=== PATIENT | female | born 1930 | race Caucasian/White ===

== ENCOUNTER 2018-05-28 00:51 | Inpatient (IN) | payer MEDICARE, MEDICAID ==
[~2018-05-28] VITALS: Ht 162.6 cm; Wt 54.4 kg
[2018-05-28] VITALS (7 sets, daily range): BP systolic 124–210; BP diastolic 62–104
[~2018-05-28 00:51] MED LIST: ADVAIR 100-501 EACH INH; ALBUTEROL2.5 MG/3 M INH; AMIODARONE HCL400 M1 ORAL; CORDARONE200 M1 ORAL; DIOVAN160 MG ORAL; DONEPEZIL HCL5 M2 ORAL; FUROSEMIDE20 M1 ORAL; HYDROCHLOROTHIA25 MG ORAL; LEXAPRO10 MG ORAL; MEDROL4 MG ORAL; MIRTAZAPINE7.5 MG ORAL; NORVASC5 MG ORAL; PANTOPRAZOLE SO40 MG ORAL; POTASSIUM99 M3 PO; PROLIA60 MG/1 ML SUBQ; SINGULAIR10 MG ORAL; SPIRIVA18 MCG INH; TRAMADOL HCL50 MG ORAL; VERAPAMIL HCL80 MG ORAL; vitamin B12 IM
--- NOTE | 2018-05-28 00:55 | Emergency Room Report ---
History of Present Illness General Source: Medical Record, EMS Present Illness HPI Patient presents from nursing facility with shortness of breath patient has multiple comorbidities including CHF Atrial fibrillation and COPD, Patient herself is nonverbal and in acute distress upon arrival this does limit the history of present illness There was no reports of vomiting or diarrhea unknown regarding fevers patient's symptoms apparently worsened acutely And paramedics were summoned Allergies: Coded Allergies: Mushroom (Verified Allergy, Severe, 05/28/18) MORPHINE (Unverified Allergy, Intermediate, Itching, 01/04/15) PENICILLINS (Unverified Allergy, Intermediate, Hives, 01/04/15) CELECOXIB (Verified Allergy, Mild, 01/15/09) Patient History Limited by: medical condition Past Medical History: see triage record Pertinent Family History: unable to obtain Reviewed Nursing Documentation: PMH: Agreed; PSxH: Agreed Nursing Documentation-PMH Hx Hypertension: Yes Hx Asthma: Yes Hx Gastrointestinal Problems: Yes - GERD Review of Systems All Other Systems: limited - Other than the ones mentioned in the history of present illness all others are reviewed however they do stay limited due to the patient's mental status Physical Exam 80% on room air which is low, on BiPAP patient saturating at 95% which is improved and normal Sp02 EP Interpretation: reviewed, abnormal General Appearance: moderate distress - Short of breath and dyspneic Head: normocephalic, atraumatic Eyes: bilateral eye PERRL, bilateral eye EOMI ENT: dry mucus membranes Neck: supple Respiratory: accessory muscle use - And tachypneic crackles bilaterally Cardiovascular #1: tachycardia Gastrointestinal: non tender, soft Musculoskeletal: other - Patient appears weak not following all commands difficult exam Neurologic: responsive - To physical and verbal stimuli otherwise decreased GCS Skin: no rash, other - Some edema bilaterally Lymphatic: no adenopathy Procedures Critical Care Time Critical Care Time 50 minutes for multiple re-evaluations critical presentation with hypoxia concern for respiratory failure not including any procedural time Medical Decision Making Diagnostic Impression: Primary Impression: Respiratory distress Additional Impressions: COPD with acute exacerbation Hypoxia Pleural effusion ER Course patient is a fairly complex patient with multiple differential to consideration including but not limited to cardiac cardiopulmonary and vascular emergencies Patient placed on BiPAP emergently X-ray imaging shows concerning right-sided effusion versus infiltrate also cardiomegaly Patient receiving breathing treatments Also diuretic and antibiotics has started to improve and requires higher level of care admission Labs Test 05/28/18 00:52 05/28/18 01:32 05/28/18 01:40 05/28/18 02:00 Arterial Blood pH 7.318 (7.350-7.450) Arterial Blood Partial Pressure CO2 67.9 mmHg (35.0-45.0) Arterial Blood Partial Pressure O2 49.7 mmHg (75.0-100.0) Arterial Blood HCO3 34.0 mmol/L (22.0-26.0) Arterial Blood Oxygen Saturation 85.7 % (95-100) Arterial Blood Base Excess 6.0 (-2-2) David Test Positive White Blood Count 14.8 K/UL (4.8-10.8) Red Blood Count 5.29 M/UL (4.20-5.40) Hemoglobin 11.3 G/DL (12.0-16.0) Hematocrit 37.7 % (37.0-47.0) Mean Corpuscular Volume 71 FL (80-99) Mean Corpuscular Hemoglobin 21.4 PG (27.0-31.0) Mean Corpuscular Hemoglobin Concent 29.9 G/DL (32.0-36.0) Red Cell Distribution Width 15.2 % (11.6-14.8) Platelet Count 161 K/UL (150-450) Mean Platelet Volume 8.8 FL (6.5-10.1) Neutrophils (%) (Auto) 75.7 % (45.0-75.0) Lymphocytes (%) (Auto) 18.3 % (20.0-45.0) Monocytes (%) (Auto) 4.7 % (1.0-10.0) Eosinophils (%) (Auto) 0.5 % (0.0-3.0) Basophils (%) (Auto) 0.9 % (0.0-2.0) Sodium Level 144 MMOL/L (136-145) Potassium Level 3.6 MMOL/L (3.5-5.1) Chloride Level 107 MMOL/L (98-107) Carbon Dioxide Level 31 MMOL/L (21-32) Anion Gap 6 mmol/L (5-15) Blood Urea Nitrogen 34 mg/dL (7-18) Creatinine 1.4 MG/DL (0.55-1.30) Estimat Glomerular Filtration Rate mL/min (>60) Glucose Level 201 MG/DL (74-106) Lactic Acid Level 1.00 mmol/L (0.4-2.0) Calcium Level 10.7 MG/DL (8.5-10.1) Total Bilirubin 0.4 MG/DL (0.2-1.0) Aspartate Amino Transf (AST/SGOT) 14 U/L (15-37) Alanine Aminotransferase (ALT/SGPT) 14 U/L (12-78) Alkaline Phosphatase 61 U/L (46-116) Total Creatine Kinase 22 U/L (26-308) Creatine Kinase MB 0.5 NG/ML (0.0-3.6) Creatine Kinase MB Relative Index 2.2 Troponin I 0.002 ng/mL (0.000-0.056) Total Protein 6.8 G/DL (6.4-8.2) Albumin 3.2 G/DL (3.4-5.0) Globulin 3.6 g/dL Albumin/Globulin Ratio 0.9 (1.0-2.7) Urine Color Pale yellow Urine Appearance Clear Urine pH 6 (4.5-8.0) Urine Specific [place] 1.020 (1.005-1.035) Urine Protein 3+ (NEGATIVE) Urine Glucose (UA) Negative (NEGATIVE) Urine Ketones Negative (NEGATIVE) Urine Blood 2+ (NEGATIVE) Urine Nitrite Negative (NEGATIVE) Urine Bilirubin Negative (NEGATIVE) Urine Urobilinogen Normal MG/DL (0.0-1.0) Urine Leukocyte Esterase 1+ (NEGATIVE) Urine RBC 2-4 /HPF (0 - 2) Urine WBC 0-2 /HPF (0 - 2) Urine Squamous Epithelial Cells Occasional /LPF Urine Bacteria Few /HPF (NONE) Prothrombin Time 11.7 SEC (9.30-11.50) Prothromb Time International Ratio 1.1 (0.9-1.1) Activated Partial Thromboplast Time 32 SEC (23-33) Test 05/28/18 03:15 Arterial Blood pH 7.346 (7.350-7.450) Arterial Blood Partial Pressure CO2 60.5 mmHg (35.0-45.0) Arterial Blood Partial Pressure O2 83.3 mmHg (75.0-100.0) Arterial Blood HCO3 32.4 mmol/L (22.0-26.0) Arterial Blood Oxygen Saturation 96.0 % (95-100) Arterial Blood Base Excess 5.2 (-2-2) David Test Positive Labs Test 05/28/18 00:52 05/28/18 01:32 05/28/18 01:40 05/28/18 02:00 Arterial Blood pH 7.318 (7.350-7.450) Arterial Blood Partial Pressure CO2 67.9 mmHg (35.0-45.0) Arterial Blood Partial Pressure O2 49.7 mmHg (75.0-100.0) Arterial Blood HCO3 34.0 mmol/L (22.0-26.0) Arterial Blood Oxygen Saturation 85.7 % (95-100) Arterial Blood Base Excess 6.0 (-2-2) David Test Positive White Blood Count 14.8 K/UL (4.8-10.8) Red Blood Count 5.29 M/UL (4.20-5.40) Hemoglobin 11.3 G/DL (12.0-16.0) Hematocrit 37.7 % (37.0-47.0) Mean Corpuscular Volume 71 FL (80-99) Mean Corpuscular Hemoglobin 21.4 PG (27.0-31.0) Mean Corpuscular Hemoglobin Concent 29.9 G/DL (32.0-36.0) Red Cell Distribution Width 15.2 % (11.6-14.8) Platelet Count 161 K/UL (150-450) Mean Platelet Volume 8.8 FL (6.5-10.1) Neutrophils (%) (Auto) 75.7 % (45.0-75.0) Lymphocytes (%) (Auto) 18.3 % (20.0-45.0) Monocytes (%) (Auto) 4.7 % (1.0-10.0) Eosinophils (%) (Auto) 0.5 % (0.0-3.0) Basophils (%) (Auto) 0.9 % (0.0-2.0) Sodium Level 144 MMOL/L (136-145) Potassium Level 3.6 MMOL/L (3.5-5.1) Chloride Level 107 MMOL/L (98-107) Carbon Dioxide Level 31 MMOL/L (21-32) Anion Gap 6 mmol/L (5-15) Blood Urea Nitrogen 34 mg/dL (7-18) Creatinine 1.4 MG/DL (0.55-1.30) Estimat Glomerular Filtration Rate mL/min (>60) Glucose Level 201 MG/DL (74-106) Lactic Acid Level 1.00 mmol/L (0.4-2.0) Calcium Level 10.7 MG/DL (8.5-10.1) Total Bilirubin 0.4 MG/DL (0.2-1.0) Aspartate Amino Transf (AST/SGOT) 14 U/L (15-37) Alanine Aminotransferase (ALT/SGPT) 14 U/L (12-78) Alkaline Phosphatase 61 U/L (46-116) Total Creatine Kinase 22 U/L (26-308) Creatine Kinase MB 0.5 NG/ML (0.0-3.6) Creatine Kinase MB Relative Index 2.2 Troponin I 0.002 ng/mL (0.000-0.056) Total Protein 6.8 G/DL (6.4-8.2) Albumin 3.2 G/DL (3.4-5.0) Globulin 3.6 g/dL Albumin/Globulin Ratio 0.9 (1.0-2.7) Urine Color Pale yellow Urine Appearance Clear Urine pH 6 (4.5-8.0) Urine Specific [place] 1.020 (1.005-1.035) Urine Protein 3+ (NEGATIVE) Urine Glucose (UA) Negative (NEGATIVE) Urine Ketones Negative (NEGATIVE) Urine Blood 2+ (NEGATIVE) Urine Nitrite Negative (NEGATIVE) Urine Bilirubin Negative (NEGATIVE) Urine Urobilinogen Normal MG/DL (0.0-1.0) Urine Leukocyte Esterase 1+ (NEGATIVE) Urine RBC 2-4 /HPF (0 - 2) Urine WBC 0-2 /HPF (0 - 2) Urine Squamous Epithelial Cells Occasional /LPF Urine Bacteria Few /HPF (NONE) Prothrombin Time 11.7 SEC (9.30-11.50) Prothromb Time International Ratio 1.1 (0.9-1.1) Activated Partial Thromboplast Time 32 SEC (23-33) Rhythm Strip Diag. Results EP Interpretation: yes Rate: 110 Rhythm: no PVC's, no ectopy, other - Sinus tach Chest X-Ray Diagnostic Results Chest X-Ray Diagnostic Results : Chest X-Ray Ordered: Yes # of Views/Limited/Complete: 1 View Indication: Shortness of Breath EP Interpretation: Yes Interpretation: no pneumothorax, other - Right-sided effusion, cardiomegaly Impression: Other - Right-sided effusion, congestion Electronically Signed by: Tennille Ames DO Status: improved Disposition: ADMITTED INPATIENT Condition: Critical Tennille Ames DO May 28, 2018 00:55
[2018-05-28] MEDS ORDERED: Vancomycin 1 GM in NS 275 ML IV ONE (01:30)
[2018-05-28] MEDS ORDERED: Albuterol ud Inhalation HHN ONE (01:30)
[2018-05-28] MEDS ORDERED: Aztreonam Inj 2 GM in NS 110 ML IV SCH (01:30)
[2018-05-28] MEDS ORDERED: Ipratropium 0.02% Inh Soln 2.5ml UD HHN ONE (01:30)
--- NOTE | 2018-05-28 01:34 | Diagnostic Imaging Report ---
EXAM: XR Chest, 1 View CLINICAL HISTORY: SOB TECHNIQUE: Frontal view of the chest. COMPARISON: 01/21/2016 FINDINGS: Lungs: Right lower lobe atelectasis or consolidation. Pleural space: Small right pleural effusion. No pneumothorax. Heart: Stable cardiomediastinal silhouette. Mediastinum: See above. Bones/joints: No acute osseous abnormality. IMPRESSION: Small right pleural effusion with adjacent atelectasis or consolidation.
--- NOTE | 2018-05-28 01:46 | NUR ---
ER Nurse Note: Pt BIBA from [facility] c/o shortness of breath; per EMS; pt O2 stat at mid 80%. Pt was put in tripod position, put on BIPAP' stating at mid 90%. Lung sounds wet in all lobes, Rt at pt side for bipap; O2 stat at high 80%-low 90%. Unable to access line with three nurses at attempt. ERMD at pt side; will continue to montior.
[2018-05-28 01:47] LABS: BASOPHILS % (AUTO) 0.9 % (0.0-2.0); EOSINOPHILS % (AUTO) 0.5 % (0.0-3.0); HEMATOCRIT 37.7 % (37.0-47.0); HEMOGLOBIN 11.3 G/DL (12.0-16.0); LYMPHOCYTES % (AUTO) 18.3 % (20.0-45.0); MEAN CORPUSCULAR VOLUME 71 FL (80-99); MONOCYTES % (AUTO) 4.7 % (1.0-10.0); NEUTROPHILS % (AUTO) 75.7 % (45.0-75.0); PLATELET COUNT 161 K/UL (150-450); RED BLOOD COUNT 5.29 M/UL (4.20-5.40); RED CELL DISTRIBUTION WIDTH 15.2 % (11.6-14.8); WHITE BLOOD COUNT 14.8 K/UL (4.8-10.8)
[2018-05-28 01:48] LABS: APPEARANCE,URINE CLEAR; BILIRUBIN, URINE NEGATIVE (NEGATIVE); COLOR,URINE PALE YELLOW; GLUCOSE, URINE (UA) NEGATIVE (NEGATIVE); KETONES,URINE NEGATIVE (NEGATIVE); LEUKOCYTE ESTERASE ,URINE 1+ (NEGATIVE); NITRITE,URINE NEGATIVE (NEGATIVE); PH,URINE 6 (4.5-8.0); PROTEIN,URINE 3+ (NEGATIVE); UROBILINOGEN,URINE NORMAL MG/DL (0.0-1.0)
[2018-05-28 02:00] LABS: ANION GAP 6 mmol/L (5-15); BLOOD UREA NITROGEN 34 mg/dL (7-18); CALCIUM 10.7 MG/DL (8.5-10.1); CARBON DIOXIDE 31 MMOL/L (21-32); CHLORIDE 107 MMOL/L (98-107); CREATININE 1.4 MG/DL (0.55-1.30); POTASSIUM 3.6 MMOL/L (3.5-5.1); SODIUM 144 MMOL/L (136-145)
[2018-05-28 02:14] LABS: ALANINE AMINOTRANSFERASE 14 U/L (12-78); ALBUMIN 3.2 G/DL (3.4-5.0); ALBUMIN/GLOBULIN RATIO 0.9 (1.0-2.7); ALKALINE PHOSPHATASE 61 U/L (46-116); BILIRUBIN,TOTAL 0.4 MG/DL (0.2-1.0); CKMB 0.5 NG/ML (0.0-3.6); CREATINE KINASE 22 U/L (26-308)
[2018-05-28 02:27] LABS: ASPARTATE AMINO TRANSFERASE 14 U/L (15-37)
[2018-05-28 02:33] LABS: INR 1.1 (0.9-1.1)
--- NOTE | 2018-05-28 02:45 | NUR ---
ER Nurse Note: All orders completed per ERMD orders. Rectal temp at 99.8F; ice packs and cooling measures initiated. Pt O2 at 99% on BiPap. Skin redness on sacral area; no skin breakdown; wound documented. IV 22 gauge inserted by Charge Nurse; infusing antibiotics. Will continue to montior.
[2018-05-28] MEDS ORDERED: Aztreonam Inj 1 GM in D5W 55 ML IVPB ONE ×4 (03:00)
--- NOTE | 2018-05-28 04:08 | NUR ---
ER Nurse Note: Report given to MARGY Duenas in [place] to endorse continuity of care. Pt a&ox2 to name, situation; responds to pain. No signs of distress. All safety measures met; all belongings with pt.
--- NOTE | 2018-05-28 04:09 | NUR ---
NURSE NOTES: Received telephone report from MARGY Boo prior to bringing up the pt. Temperature down in ER was 99.8F, no medications given. Reported that cooling measures with ice packs were used. At bedside report temperature was 101.5. Unable to obtain orders from Dr. Mariee at that time, warehouse lead was notified. Received order for rectal tylenol and was given. Upon assessment of the pt she appears to be nonverbal, but occassionally moans to pain and movement. BiPAP settings are 18/8 fi02 100%; ABGs noted and discussed with RT. Skin is clean and dry. Noted sacral redness, photo taken and uploaded to [facility]. Patient was turned. L/R hand IV; asymptomatic. Bed is locked in lowest position, sr x3, bed alarm on, call michaels within reach. No orders at this time but will continue to monitor.
[2018-05-28] MEDS ORDERED: Acetaminophen 650 MG SUPP RECTAL ONE (04:15)
--- NOTE | 2018-05-28 04:22 | NUR ---
NURSE NOTES: Paged Dr. Mariee, awaiting a call back. Will continue to monitor and follow plan of care.
--- NOTE | 2018-05-28 05:30 | NUR ---
NURSE NOTES: Paged Dr. Mariee x2. No admit orders at this time. Will continue to monitor.
--- NOTE | 2018-05-28 06:30 | NUR ---
NURSE NOTES: Paged Dr. Mariee x3 regarding admit orders. Still no call back. Will continue to monitor patient.
--- NOTE | 2018-05-28 07:00 | NUR ---
Recieved Patient on BIPAP 18/8, PS 10, BUR 16, FIO2 100%. Patient currently sleeping. Tolerating bipap well. Will continue to monitor.
--- NOTE | 2018-05-28 07:22 | NUR ---
HAND-OFF: Report given to MARGY Bennett.
--- NOTE | 2018-05-28 07:23 | NUR ---
NURSE NOTES: RECEIVED PATIENT FROM Kyle MCCLELLAND RN. PATIENT IS LYING IN BED, ASLEEP. NONVERBAL. HOOKED TO MANAGER DIVERSITY. ON BIPAP 18/5 AT FIO2 100%. NO SIGNS OF DISTRESS OF THE MOMENT. ON NPO. IVS ON L HAND G24 AND IV R HAND G22, SL. CALL LIGHT WITHIN REACH. BED AT LOWEST POSITION. SIDE RAILS UP. WILL CONTINUE TO MONITOR.
[2018-05-28] MEDS ORDERED: Nitroglycerin Subl 0.4mg tab SL PRN (07:30)
[2018-05-28] MEDS ORDERED: Albuterol/Ipratropium 3ml neb HHN PRN (07:30)
[2018-05-28] MEDS ORDERED: Mylanta II UD 30ml ORAL PRN (07:30)
[2018-05-28] MEDS ORDERED: Miralax 17gm pkt ORAL PRN (07:30)
--- NOTE | 2018-05-28 08:44 | Consultation ---
History of Present Illness General Date patient seen: May 28, 2018 Chief Complaint: Dyspnea/Respdistress Reason for Consultation: PNA Present Illness HPI Ms. Nowak is a 87 yo feamle with PMHx of COPD, HTN, and A.fib sent to the ED from her nuring home for SOB. She is not verbal and so the history is obtained from the notes. She was put On BiPAP and no a facemask for low saturations. She had a fever of 101.5 and a WBC count of 15. CXR show atalectasis vs consolidation in the right side. ID was consulted for PNA PMHx/PSHx COPD HTN A.fib SocHx Live at a nuring home FamHx: Unable to obtain due to not verbal status Allergies: Coded Allergies: Mushroom (Verified Allergy, Severe, 05/28/18) MORPHINE (Unverified Allergy, Intermediate, Itching, 01/04/15) PENICILLINS (Unverified Allergy, Intermediate, Hives, 01/04/15) CELECOXIB (Verified Allergy, Mild, 01/15/09) Medication History Scheduled Amiodarone Hcl* (Cordarone*), 200 MG ORAL DAILY Amlodipine Besylate (Norvasc), 5 MG ORAL DAILY, (Reported) Denosumab (Prolia), 60 MG SUBQ EVERY 6 MONTHS, (Reported) Donepezil Hcl* (Donepezil Hcl*), 5 MG ORAL HS, (Reported) Escitalopram Oxalate* (Lexapro*), 10 MG ORAL DAILY, (Reported) Fluticasone/Salmeterol (Advair 100-50 Diskus), 1 PUFF INH EVERY 12 HOURS, ( Reported) Furosemide* (Lasix*), 40 MG ORAL BID, (Reported) Hydrochlorothiazide* (Hydrochlorothiazide*), 25 MG ORAL DAILY, (Reported) Methylprednisolone* (Medrol*), 4 MG ORAL DAILY Mirtazapine* (Mirtazapine*), 15 MG ORAL BEDTIME, (Reported) Montelukast Sodium* (Singulair*), 10 MG ORAL DAILY, (Reported) Montelukast Sodium* (Singulair*), 10 MG ORAL BEDTIME, (Reported) Pantoprazole* (Pantoprazole*), 40 MG ORAL DAILY, (Reported) Potassium Gluconate (Potassium), 10 MEQ PO BID, (Reported) Tiotropium Slater* (Spiriva*), 1 PUFF INH DAILY, (Reported) Valsartan (Diovan), 160 MG ORAL BID, (Reported) Verapamil Hcl* (Calan*), 240 MG ORAL DAILY, (Reported) [vitamin B12], 1 ML IM ONCE A WEEK, (Reported) Scheduled PRN Albuterol Sulfate* (Albuterol Sulfate Hhn*), 3 ML INH Q6H PRN for Shortness of Breath, (Reported) Tramadol Hcl* (Ultram*), 50 MG ORAL Q6H PRN for For Pain, (Reported) Patient History Healthcare decision maker Resuscitation status Advanced Directive on File Yes Review of Systems ROS Narrative Unable to obtain due to not verbal status Physical Exam Last 24 Hour Vital Signs Date Time Temp Pulse Resp B/P (MAP) Pulse Ox O2 Delivery O2 Flow Rate FiO2 05/28/18 07:21 88 21 97 Facial 100 05/28/18 05:25 85 25 96 Facial 100 05/28/18 04:56 98.8 05/28/18 04:47 Bi-pap 18.0 05/28/18 04:08 101.1 100 32 158/71 97 100 05/28/18 04:00 101.5 107 20 162/79 (106) 98 05/28/18 04:00 107 05/28/18 03:30 105 32 97 Facial 100 05/28/18 03:29 99.8 100 20 158/71 100 Bi-pap 100 05/28/18 01:52 120 32 96 Bi-pap 100 05/28/18 01:35 118 40 88 Bi-pap 100 05/28/18 01:13 129 40 87 Facial 100 05/28/18 01:12 129 40 Bi-pap 100 05/28/18 01:05 125 28 Room Air 05/28/18 01:05 98.1 128 28 210/104 83 Room Air 05/28/18 00:52 98.1 125 28 210/104 83 Room Air Intake and Output 05/27/18 05/28/18 19:00 07:00 Intake Total 985 ml Balance 985 ml Intake Oral 0 ml IV Total 985 ml # Voids 4 Laboratory Tests Test 05/28/18 00:52 05/28/18 01:32 05/28/18 01:40 05/28/18 02:00 Arterial Blood pH 7.318 (7.350-7.450) Arterial Blood Partial Pressure CO2 67.9 mmHg (35.0-45.0) *H Arterial Blood Partial Pressure O2 49.7 mmHg (75.0-100.0) Arterial Blood HCO3 34.0 mmol/L (22.0-26.0) H Arterial Blood Oxygen Saturation 85.7 % (95-100) *L Arterial Blood Base Excess 6.0 (-2-2) H David Test Positive White Blood Count 14.8 K/UL (4.8-10.8) H Red Blood Count 5.29 M/UL (4.20-5.40) Hemoglobin 11.3 G/DL (12.0-16.0) L Hematocrit 37.7 % (37.0-47.0) Mean Corpuscular Volume 71 FL (80-99) L Mean Corpuscular Hemoglobin 21.4 PG (27.0-31.0) L Mean Corpuscular Hemoglobin Concent 29.9 G/DL (32.0-36.0) L Red Cell Distribution Width 15.2 % (11.6-14.8) H Platelet Count 161 K/UL (150-450) Mean Platelet Volume 8.8 FL (6.5-10.1) Neutrophils (%) (Auto) 75.7 % (45.0-75.0) H Lymphocytes (%) (Auto) 18.3 % (20.0-45.0) L Monocytes (%) (Auto) 4.7 % (1.0-10.0) Eosinophils (%) (Auto) 0.5 % (0.0-3.0) Basophils (%) (Auto) 0.9 % (0.0-2.0) Sodium Level 144 MMOL/L (136-145) Potassium Level 3.6 MMOL/L (3.5-5.1) Chloride Level 107 MMOL/L (98-107) Carbon Dioxide Level 31 MMOL/L (21-32) Anion Gap 6 mmol/L (5-15) Blood Urea Nitrogen 34 mg/dL (7-18) H Creatinine 1.4 MG/DL (0.55-1.30) H Estimat Glomerular Filtration Rate mL/min (>60) Glucose Level 201 MG/DL (74-106) H Lactic Acid Level 1.00 mmol/L (0.4-2.0) Calcium Level 10.7 MG/DL (8.5-10.1) H Total Bilirubin 0.4 MG/DL (0.2-1.0) Aspartate Amino Transf (AST/SGOT) 14 U/L (15-37) L Alanine Aminotransferase (ALT/SGPT) 14 U/L (12-78) Alkaline Phosphatase 61 U/L (46-116) Total Creatine Kinase 22 U/L (26-308) L Creatine Kinase MB 0.5 NG/ML (0.0-3.6) Creatine Kinase MB Relative Index 2.2 Troponin I 0.002 ng/mL (0.000-0.056) Total Protein 6.8 G/DL (6.4-8.2) Albumin 3.2 G/DL (3.4-5.0) L Globulin 3.6 g/dL Albumin/Globulin Ratio 0.9 (1.0-2.7) L Urine Color Pale yellow Urine Appearance Clear Urine pH 6 (4.5-8.0) Urine Specific [place] 1.020 (1.005-1.035) Urine Protein 3+ (NEGATIVE) H Urine Glucose (UA) Negative (NEGATIVE) Urine Ketones Negative (NEGATIVE) Urine Blood 2+ (NEGATIVE) H Urine Nitrite Negative (NEGATIVE) Urine Bilirubin Negative (NEGATIVE) Urine Urobilinogen Normal MG/DL (0.0-1.0) Urine Leukocyte Esterase 1+ (NEGATIVE) H Urine RBC 2-4 /HPF (0 - 2) H Urine WBC 0-2 /HPF (0 - 2) Urine Squamous Epithelial Cells Occasional /LPF Urine Bacteria Few /HPF (NONE) Prothrombin Time 11.7 SEC (9.30-11.50) H Prothromb Time International Ratio 1.1 (0.9-1.1) Activated Partial Thromboplast Time 32 SEC (23-33) Test 05/28/18 03:15 Arterial Blood pH 7.346 (7.350-7.450) Arterial Blood Partial Pressure CO2 60.5 mmHg (35.0-45.0) *H Arterial Blood Partial Pressure O2 83.3 mmHg (75.0-100.0) Arterial Blood HCO3 32.4 mmol/L (22.0-26.0) H Arterial Blood Oxygen Saturation 96.0 % (95-100) Arterial Blood Base Excess 5.2 (-2-2) H David Test Positive Microbiology Date/Time Source Procedure Growth Status 05/28/18 02:05 Nasal Nares Influenza Types A,B Antigen (JACY) - Final Complete Height (Feet): 5 Height (Inches): 4.00 Weight (Pounds): 122 Medications Current Medications Medications (Trade) Dose Ordered Sig/Ann Route PRN Reason Start Time Stop Time Status Last Admin Dose Admin Acetaminophen (Tylenol) 650 mg Q4H PRN ORAL fever 05/28/18 07:30 06/27/18 07:29 Al Hydroxide/Mg Hydroxide (Mylanta II) 30 ml Q6H PRN ORAL dyspepsia 05/28/18 07:30 06/27/18 07:29 Albuterol/ Ipratropium (Albuterol/ Ipratropium) 3 ml Q4H PRN HHN Shortness of Breath 05/28/18 07:30 06/02/18 07:29 Amiodarone HCl (Cordarone) 200 mg DAILY ORAL 05/28/18 09:00 06/27/18 08:59 Amlodipine Besylate (Norvasc) 5 mg DAILY ORAL 05/28/18 09:00 06/27/18 08:59 Cefepime HCl 1 gm/ Dextrose 55 ml @ 110 mls/hr Q24H IV 05/28/18 09:00 06/04/18 08:59 Heparin Sodium (Porcine) (Heparin 5000 units/ml) 5,000 units EVERY 12 HOURS SUBQ 05/28/18 09:00 06/27/18 08:59 Nitroglycerin (Ntg) 0.4 mg Q5M PRN SL Prn Chest Pain 05/28/18 07:30 06/27/18 07:29 Ondansetron HCl (Zofran) 4 mg Q6H PRN IVP Nausea & Vomiting 05/28/18 07:30 06/27/18 07:29 Polyethylene Glycol (Miralax) 17 gm DAILYPRN PRN ORAL Constipation 05/28/18 07:30 06/27/18 07:29 Temazepam (Restoril) 15 mg HSPRN PRN ORAL Insomnia 05/28/18 07:30 06/04/18 07:29 Vancomycin HCl (Vanco rx to dose) 1 ea DAILY PRN MISC Per rx protocol 05/28/18 07:30 06/27/18 07:29 Vancomycin HCl 500 mg/Dextrose 110 ml @ 110 mls/hr Q24H IVPB 05/29/18 01:00 06/03/18 00:59 Objective Narrative General Appearance: cachetic, On BiPAP HEENT: normocephalic, atraumatic, DMM, EOMI Neck: Supple, No LAD, NO JVD Respiratory/Chest: crackles/rales, rhonchi - bilaterally, Increase accessory muscle use Cardiovascular/Chest: RRR, S1, S2 Abdomen: Soft, NT, ND, + BS Genitourinary/Rectal: Deferred Extremities: Some edema, Pulse 2+ Skin Exam: Warm, No rashes Neuro: Awake Assessment/Plan Assessment/Plan 87 yo feamle with PMHx of COPD, HTN, and A.fib sent to the ED from her nuring home for SOB. Sepsis - Likely PNA 05/28/18 CXR with atalectasis vs consolidation in the right side. UA (-) Leukocytosis 15 on admit Febrile to 101.5 COPD CAD A. fib PLAN - Continue Cefepime and vancomycin - Get Urine Strep ag, Legionella - Inf Screen - Monitor CBC and Temps Thank you for this consult. We will continue to follow Ms. Nowak during this hospitlization. Clint Harris MD May 28, 2018 08:44
--- NOTE | 2018-05-28 09:09 | Consultation ---
History of Present Illness General Date patient seen: May 28, 2018 Chief Complaint: Dyspnea/Respdistress Reason for Consultation: PNA Present Illness HPI 87 year old with hx of COpd , HTN, Afib, Brought in b/o increasing dyspnea, fever chills, in the last few days. Pt was feeling week as well. Worsening short of breath. Pt was febrile in ER and in respiratory distress and was put on BIPAP and transferred to [facility]. Pt is somnolent now. Not responding to tactile stimuli. Unknown underlying mental status. Allergies: Coded Allergies: Mushroom (Verified Allergy, Severe, 05/28/18) MORPHINE (Unverified Allergy, Intermediate, Itching, 01/04/15) PENICILLINS (Unverified Allergy, Intermediate, Hives, 01/04/15) CELECOXIB (Verified Allergy, Mild, 01/15/09) Medication History Scheduled Amiodarone Hcl* (Cordarone*), 200 MG ORAL DAILY Amlodipine Besylate (Norvasc), 5 MG ORAL DAILY, (Reported) Denosumab (Prolia), 60 MG SUBQ EVERY 6 MONTHS, (Reported) Donepezil Hcl* (Donepezil Hcl*), 5 MG ORAL HS, (Reported) Escitalopram Oxalate* (Lexapro*), 10 MG ORAL DAILY, (Reported) Fluticasone/Salmeterol (Advair 100-50 Diskus), 1 PUFF INH EVERY 12 HOURS, ( Reported) Furosemide* (Lasix*), 40 MG ORAL BID, (Reported) Hydrochlorothiazide* (Hydrochlorothiazide*), 25 MG ORAL DAILY, (Reported) Methylprednisolone* (Medrol*), 4 MG ORAL DAILY Mirtazapine* (Mirtazapine*), 15 MG ORAL BEDTIME, (Reported) Montelukast Sodium* (Singulair*), 10 MG ORAL DAILY, (Reported) Montelukast Sodium* (Singulair*), 10 MG ORAL BEDTIME, (Reported) Pantoprazole* (Pantoprazole*), 40 MG ORAL DAILY, (Reported) Potassium Gluconate (Potassium), 10 MEQ PO BID, (Reported) Tiotropium [place]* (Spiriva*), 1 PUFF INH DAILY, (Reported) Valsartan (Diovan), 160 MG ORAL BID, (Reported) Verapamil Hcl* (Calan*), 240 MG ORAL DAILY, (Reported) [vitamin B12], 1 ML IM ONCE A WEEK, (Reported) Scheduled PRN Albuterol Sulfate* (Albuterol Sulfate Hhn*), 3 ML INH Q6H PRN for Shortness of Breath, (Reported) Tramadol Hcl* (Ultram*), 50 MG ORAL Q6H PRN for For Pain, (Reported) Patient History Healthcare decision maker Resuscitation status Advanced Directive on File Yes Past Medical/Surgical History Past Medical/Surgical History: (1) Afib (2) CAD (coronary artery disease) (3) COPD (chronic obstructive pulmonary disease) Review of Systems All Other Systems: negative except mentioned in HPI Physical Exam General Appearance: cachetic Lines, tubes and drains: peripheral HEENT: normocephalic, atraumatic Neck: non-tender, normal alignment Respiratory/Chest: accessory muscle use, rhonchi - left, rhonchi - right Cardiovascular/Chest: normal peripheral pulses, normal rate Abdomen: normal bowel sounds, non tender Genitourinary/Rectal: normal rectal exam Extremities: normal range of motion, non-tender, normal inspection Last 24 Hour Vital Signs Date Time Temp Pulse Resp B/P (MAP) Pulse Ox O2 Delivery O2 Flow Rate FiO2 05/28/18 08:00 100 05/28/18 08:00 97.9 73 24 135/74 (94) 100 05/28/18 07:21 88 21 97 Facial 100 05/28/18 05:25 85 25 96 Facial 100 05/28/18 04:56 98.8 05/28/18 04:47 Bi-pap 18.0 05/28/18 04:08 101.1 100 32 158/71 97 100 05/28/18 04:00 101.5 107 20 162/79 (106) 98 05/28/18 04:00 107 05/28/18 03:30 105 32 97 Facial 100 05/28/18 03:29 99.8 100 20 158/71 100 Bi-pap 100 05/28/18 01:52 120 32 96 Bi-pap 100 05/28/18 01:35 118 40 88 Bi-pap 100 05/28/18 01:13 129 40 87 Facial 100 05/28/18 01:12 129 40 Bi-pap 100 05/28/18 01:05 125 28 Room Air 05/28/18 01:05 98.1 128 28 210/104 83 Room Air 05/28/18 00:52 98.1 125 28 210/104 83 Room Air Intake and Output 05/27/18 05/28/18 19:00 07:00 Intake Total 985 ml Balance 985 ml Intake Oral 0 ml IV Total 985 ml # Voids 4 Laboratory Tests Test 05/28/18 00:52 05/28/18 01:32 05/28/18 01:40 05/28/18 02:00 Arterial Blood pH 7.318 (7.350-7.450) Arterial Blood Partial Pressure CO2 67.9 mmHg (35.0-45.0) *H Arterial Blood Partial Pressure O2 49.7 mmHg (75.0-100.0) Arterial Blood HCO3 34.0 mmol/L (22.0-26.0) H Arterial Blood Oxygen Saturation 85.7 % (95-100) *L Arterial Blood Base Excess 6.0 (-2-2) H David Test Positive White Blood Count 14.8 K/UL (4.8-10.8) H Red Blood Count 5.29 M/UL (4.20-5.40) Hemoglobin 11.3 G/DL (12.0-16.0) L Hematocrit 37.7 % (37.0-47.0) Mean Corpuscular Volume 71 FL (80-99) L Mean Corpuscular Hemoglobin 21.4 PG (27.0-31.0) L Mean Corpuscular Hemoglobin Concent 29.9 G/DL (32.0-36.0) L Red Cell Distribution Width 15.2 % (11.6-14.8) H Platelet Count 161 K/UL (150-450) Mean Platelet Volume 8.8 FL (6.5-10.1) Neutrophils (%) (Auto) 75.7 % (45.0-75.0) H Lymphocytes (%) (Auto) 18.3 % (20.0-45.0) L Monocytes (%) (Auto) 4.7 % (1.0-10.0) Eosinophils (%) (Auto) 0.5 % (0.0-3.0) Basophils (%) (Auto) 0.9 % (0.0-2.0) Sodium Level 144 MMOL/L (136-145) Potassium Level 3.6 MMOL/L (3.5-5.1) Chloride Level 107 MMOL/L (98-107) Carbon Dioxide Level 31 MMOL/L (21-32) Anion Gap 6 mmol/L (5-15) Blood Urea Nitrogen 34 mg/dL (7-18) H Creatinine 1.4 MG/DL (0.55-1.30) H Estimat Glomerular Filtration Rate mL/min (>60) Glucose Level 201 MG/DL (74-106) H Lactic Acid Level 1.00 mmol/L (0.4-2.0) Calcium Level 10.7 MG/DL (8.5-10.1) H Total Bilirubin 0.4 MG/DL (0.2-1.0) Aspartate Amino Transf (AST/SGOT) 14 U/L (15-37) L Alanine Aminotransferase (ALT/SGPT) 14 U/L (12-78) Alkaline Phosphatase 61 U/L (46-116) Total Creatine Kinase 22 U/L (26-308) L Creatine Kinase MB 0.5 NG/ML (0.0-3.6) Creatine Kinase MB Relative Index 2.2 Troponin I 0.002 ng/mL (0.000-0.056) Total Protein 6.8 G/DL (6.4-8.2) Albumin 3.2 G/DL (3.4-5.0) L Globulin 3.6 g/dL Albumin/Globulin Ratio 0.9 (1.0-2.7) L Urine Color Pale yellow Urine Appearance Clear Urine pH 6 (4.5-8.0) Urine Specific [place] 1.020 (1.005-1.035) Urine Protein 3+ (NEGATIVE) H Urine Glucose (UA) Negative (NEGATIVE) Urine Ketones Negative (NEGATIVE) Urine Blood 2+ (NEGATIVE) H Urine Nitrite Negative (NEGATIVE) Urine Bilirubin Negative (NEGATIVE) Urine Urobilinogen Normal MG/DL (0.0-1.0) Urine Leukocyte Esterase 1+ (NEGATIVE) H Urine RBC 2-4 /HPF (0 - 2) H Urine WBC 0-2 /HPF (0 - 2) Urine Squamous Epithelial Cells Occasional /LPF Urine Bacteria Few /HPF (NONE) Prothrombin Time 11.7 SEC (9.30-11.50) H Prothromb Time International Ratio 1.1 (0.9-1.1) Activated Partial Thromboplast Time 32 SEC (23-33) Test 05/28/18 03:15 Arterial Blood pH 7.346 (7.350-7.450) Arterial Blood Partial Pressure CO2 60.5 mmHg (35.0-45.0) *H Arterial Blood Partial Pressure O2 83.3 mmHg (75.0-100.0) Arterial Blood HCO3 32.4 mmol/L (22.0-26.0) H Arterial Blood Oxygen Saturation 96.0 % (95-100) Arterial Blood Base Excess 5.2 (-2-2) H David Test Positive Microbiology Date/Time Source Procedure Growth Status 05/28/18 02:05 Nasal Nares Influenza Types A,B Antigen (JACY) - Final Complete Height (Feet): 5 Height (Inches): 4.00 Weight (Pounds): 122 Medications Current Medications Medications (Trade) Dose Ordered Sig/Ann Route PRN Reason Start Time Stop Time Status Last Admin Dose Admin Acetaminophen (Tylenol) 650 mg Q4H PRN ORAL fever 05/28/18 07:30 06/27/18 07:29 Al Hydroxide/Mg Hydroxide (Mylanta II) 30 ml Q6H PRN ORAL dyspepsia 05/28/18 07:30 06/27/18 07:29 Albuterol/ Ipratropium (Albuterol/ Ipratropium) 3 ml Q4H PRN HHN Shortness of Breath 05/28/18 07:30 06/02/18 07:29 Amiodarone HCl (Cordarone) 200 mg DAILY ORAL 05/28/18 09:00 06/27/18 08:59 Amlodipine Besylate (Norvasc) 5 mg DAILY ORAL 05/28/18 09:00 06/27/18 08:59 Cefepime HCl 1 gm/ Dextrose 55 ml @ 110 mls/hr Q24H IV 05/28/18 09:00 06/04/18 08:59 Heparin Sodium (Porcine) (Heparin 5000 units/ml) 5,000 units EVERY 12 HOURS SUBQ 05/28/18 09:00 06/27/18 08:59 Nitroglycerin (Ntg) 0.4 mg Q5M PRN SL Prn Chest Pain 05/28/18 07:30 06/27/18 07:29 Ondansetron HCl (Zofran) 4 mg Q6H PRN IVP Nausea & Vomiting 05/28/18 07:30 06/27/18 07:29 Polyethylene Glycol (Miralax) 17 gm DAILYPRN PRN ORAL Constipation 05/28/18 07:30 06/27/18 07:29 Temazepam (Restoril) 15 mg HSPRN PRN ORAL Insomnia 05/28/18 07:30 06/04/18 07:29 Vancomycin HCl (Vanco rx to dose) 1 ea DAILY PRN MISC Per rx protocol 05/28/18 07:30 06/27/18 07:29 Vancomycin HCl 500 mg/Dextrose 110 ml @ 110 mls/hr Q24H IVPB 05/29/18 01:00 06/03/18 00:59 Assessment/Plan Problem List: (1) Acute respiratory failure ICD Codes: J96.00 - Acute respiratory failure, unspecified whether with hypoxia or hypercapnia SNOMED: 77993685 (2) Aspiration pneumonia ICD Codes: J69.0 - Pneumonitis due to inhalation of food and vomit SNOMED: 307706662 (3) Acute encephalopathy ICD Codes: G93.40 - Encephalopathy, unspecified SNOMED: 9379952 (4) CAD (coronary artery disease) ICD Codes: I25.10 - Atherosclerotic heart disease of [place] coronary artery without angina pectoris SNOMED: 17341448 (5) Afib ICD Codes: I48.91 - Unspecified atrial fibrillation SNOMED: 74696198 (6) COPD (chronic obstructive pulmonary disease) ICD Codes: J44.9 - Chronic obstructive pulmonary disease, unspecified SNOMED: 47799189 Assessment/Plan continue BIPAP titrate fio2 to sat of 92% iv abx NPO check electrolytes monitor heart rate dvt prophylaxis. Yuliet Mariee MD May 28, 2018 09:08
[2018-05-28] MEDS: Amiodarone 200mg tab ORAL SCH ×3 (09:26→13:30)
[2018-05-28] MEDS: Cefepime HCl 1 GM in D5W 55 ML IV SCH (09:26)
[2018-05-28] MEDS: Heparin 5000 units/ml inj SUBQ SCH ×2 (09:29→22:19)
--- NOTE | 2018-05-28 12:03 | NUR ---
CASE MANAGEMENT: REVIEW / BIBA FROM [facility] CC: DYSPNEA . RESP DISTRESS SI: A-FIB . CAD . COPD T 99.8 HR 129 RR 40 BP 210/104 SAT 87% BIPAP FIO2 100 WBC 14.8 TROPONIN I 0.002 ABG: PH 7.318 PCO2 67.9 PO2 49.7 HCO3 34.0 O2 SAT 85.7 IS: LASIX IV X1 VANCO IV X1 FLAGYL IV X1 ATROVENT HHN X1 AZACTAM IV X1 TYLENOL RECTAL X1 INTERQUAL CRITERIA MET: PATIENT ADMITTED TO STEP DOWN UNIT 05/28/2018 DCP: PATIENT IS FROM [facility]
[2018-05-28] MEDS ORDERED: Sodium Chloride 550 ML IV SCH (15:15)
--- NOTE | 2018-05-28 19:26 | NUR ---
HAND-OFF: Report given to Kyle Kahn RN.
--- NOTE | 2018-05-28 19:28 | NUR ---
NURSE NOTES: Bedside report received from MARGY Bennett. Pt is more awake today. Uzbek speaking, able to understand simple commands now. Vital signs stable. Pt was downgraded to Venturi at 45%. Skin is clean and dry, dressings intact. SPR mattress for sacral redness. Patient was turned. L/R hand IV; asymptomatic. Bed is locked in lowest position, sr x3, bed alarm on, call michaels within reach. Order for urinalysis, will carry out. Will continue to monitor and follow plan of care.
--- NOTE | 2018-05-28 23:30 | History and Physical Report ---
DATE OF ADMISSION: 05/28/2018 CHIEF COMPLAINT: Respiratory distress and altered mental status. HISTORY OF PRESENT ILLNESS: This is a very pleasant, unfortunate 87-year-old female with history of COPD, coronary artery disease, history of AFib, hypertension, and arthritis with early dementia, who resides at [facility]. The patient was found to have respiratory distress and hypoxia and 82% saturation on room air. She was transferred via 911 to the emergency room where she was evaluated, was found to have a right lower lobe consolidation, infiltrate, and COPD exacerbation. The patient was started on broad-spectrum IV antibiotics, pancultured, and placed on BiPAP. Her CO2 was elevated and the patient is admitted to the telemetry floor for further care. PAST MEDICAL HISTORY: History of chronic hypercapnic respiratory failure, history of COPD, coronary artery disease, atrial fibrillation, history of osteoarthritis, and history of early dementia. PAST SURGICAL HISTORY: None reported. ALLERGIES: To Celebrex, morphine, mushrooms, and penicillin. MEDICATIONS: Home medications reconciled and reviewed. SOCIAL HISTORY: The patient is . She has some multiple children who live in the [place] area. No smoking, drugs, or alcohol use currently. FAMILY HISTORY: Noncontributory. REVIEW OF SYSTEMS: The patient is complaining of pleuritic chest pain and shortness of breath. Denies any nausea or vomiting. The patient did feel weak and feverish last night. No diarrhea, constipation, melena, hematochezia, hematuria, dysuria, urgency, or frequency. Denies any other rashes or itching. No joint pain or swelling. No weight changes, heat or cold intolerance. PHYSICAL EXAMINATION: VITAL SIGNS: Blood pressure is 124/80, pulse 63, respiratory rate 18, and temperature 97.7. Saturating 100% on BiPAP. GENERAL: This is a well-nourished and well-developed female looking her stated age. Appears in moderate respiratory distress. HEENT: Normocephalic and atraumatic. Extraocular muscles are intact. Pupils are equal, round, and reactive to light. Anicteric sclerae. Oropharynx is dry. NECK: Supple. CHEST: Decreased breath sounds at bases. Otherwise, no rales or rhonchi. CARDIOVASCULAR: Normal S1 and S2. No murmurs, rubs, or gallops. ABDOMEN: Bowel sounds are positive. Belly is soft, nontender, and nondistended. No hepatosplenomegaly appreciated. EXTREMITIES: No clubbing, cyanosis, or edema. NEUROLOGIC: The patient is awake, alert, and oriented x2. Moves all extremities. Cranial nerves II through XII grossly intact. No sensory or motor deficit appreciated. Gait was not evaluated. SKIN: Clear without rashes or petechiae. LABORATORY DATA: On admission, urinalysis - pale, yellow, clear; pH was 6, specific gravity 1.020. Urine protein is 3+. Glucose is negative. Ketones are negative. 2+ blood in the urine. 1+ leukocyte esterase. CBC shows a white count of 14.8, hemoglobin 11.3, hematocrit 37.7, and platelet count 161,000 with elevated polymorphonucleocytes. INR is 1.1. ProTime is 11.7, PTT 32. ABG, latest blood gas - pH is 7.318, which is low; pCO2 67.9; pO2 is 49.7. O2 saturation is 85.7%. Chemistry panel shows sodium 144, potassium 3.6, chloride 107, carbon dioxide 31, anion gap 6, BUN elevated at 34, and creatinine 1.4. Glucose is 201. Lactic acid was 1. Calcium is elevated at 10.7. Total bilirubin is 0.4, AST 14, ALT 14, and alkaline phosphatase 61. Troponin is 0.002, normal. Total protein 6.8, albumin is low at 3.2. EKG shows no acute changes. Chest x-ray done in the ER shows small right pleural effusion with adjacent atelectasis or consolidation. IMPRESSION: This is an 87-year-old female admitted with chronic obstructive pulmonary disease exacerbation, right lower lobe infiltrate/pneumonia with altered mental status and acute kidney injury. The patient will be admitted to [facility] with the following medical problems. 1. Chronic obstructive pulmonary disease exacerbation and pneumonia. The patient has been seen by Pulmonary. Infectious Disease has been consulted, pancultured. IV antibiotics per ID. Continue with BiPAP and suction p.r.n. Transition to Venturi-mask when stable. 2. Acute kidney injury. We will monitor I's and O's, gentle intravenous fluids. Repeat a BMP in a.m. Consider Nephrology consult. 3. History of chronic atrial fibrillation. Continue with amiodarone. The patient is in sinus rhythm at this time. 4. History of hypertension. Continue with amlodipine and hold for systolic blood pressure less than 110. 5. Altered mental status, most likely from above conditions. We will keep n.p.o. except for medications and start IV fluids. 6. DVT prophylaxis with heparin subcutaneous and SCDs. 7. The patient is Full Code per policy. We will discuss with the family. Cruz Valderrama M.D. DR: LE JOB#: [id number] CC: PAMELA
[2018-05-29] VITALS: BP 150/62
[2018-05-29] MEDS: Vancomycin 500mg/D5W 110ml IVPB SCH ×2 (02:01)
[2018-05-29 04:00] VITALS: BP 147/62
[2018-05-29 04:46] LABS: BASOPHILS % (AUTO) 0.6 % (0.0-2.0); EOSINOPHILS % (AUTO) 1.1 % (0.0-3.0); HEMATOCRIT 35.8 % (37.0-47.0); HEMOGLOBIN 10.8 G/DL (12.0-16.0); LYMPHOCYTES % (AUTO) 14.2 % (20.0-45.0); MEAN CORPUSCULAR VOLUME 72 FL (80-99); NEUTROPHILS % (AUTO) 78.2 % (45.0-75.0); PLATELET COUNT 166 K/UL (150-450); RED CELL DISTRIBUTION WIDTH 15.6 % (11.6-14.8); WHITE BLOOD COUNT 12.1 K/UL (4.8-10.8)
[2018-05-29 04:54] LABS: ALBUMIN 2.8 G/DL (3.4-5.0); ANION GAP 8 mmol/L (5-15); BLOOD UREA NITROGEN 38 mg/dL (7-18); CALCIUM 10.2 MG/DL (8.5-10.1); CARBON DIOXIDE 31 MMOL/L (21-32); CHLORIDE 109 MMOL/L (98-107); CREATININE 1.4 MG/DL (0.55-1.30); PHOSPHORUS 4.5 MG/DL (2.5-4.9); POTASSIUM 3.8 MMOL/L (3.5-5.1); SODIUM 148 MMOL/L (136-145)
--- NOTE | 2018-05-29 07:11 | NUR ---
HAND-OFF: Report given to MARGY Bennett. VSS, no s/s of distress.
--- NOTE | 2018-05-29 07:12 | NUR ---
NURSE NOTES: RECEIVED PATIENT FROM Kyle MCCLELLAND RN. PATIENT IS CONFUSED, TRYING TO GET OUT OF THE BED. HOOKED TO SAFETY AND SECURITY OFFICER. ON VENTURI AT 45%. NO SIGNS OF DISTRESS OF THE MOMENT. IVS ON L HAND G24 AND IV R HAND G22, IVF RUNNING NS AT 50CC/HR. CALL LIGHT WITHIN REACH. BED AT LOWEST POSITION. SIDE RAILS UP. WILL CONTINUE TO MONITOR.
[2018-05-29 08:00] VITALS: BP 148/76
[2018-05-29] MEDS: Cefepime HCl 1 GM in D5W 55 ML IV SCH (09:58)
[2018-05-29] MEDS: Heparin 5000 units/ml inj SUBQ SCH ×2 (10:02→20:23)
--- NOTE | 2018-05-29 11:25 | Cardiology Report ---
APPROVED REPORT EXAM: Two-dimensional and M-mode echocardiogram with Doppler and color Doppler. INDICATION Blood pressure M-Mode DIMENSIONS IVSd1.8 (0.7-1.1cm)Left Atrium (MM)4.9 (1.6-4.0cm) LVDd2.9 (3.5-5.6cm)Aortic Root3.0 (2.0-3.7cm) PWd1.4 (0.7-1.1cm)Aortic Cusp Exc.1.2 (1.5-2.0cm) LVDs1.3 (2.5-4.0cm) PWs2.4 cm Normal left ventricular chamber size, systolic function and wall motion. Left ventricular ejection fraction estimated to be 60 %. Mild left ventricular hypertrophy. Anterior Echo-free space, may be due to pericardial fat or effusion. Mild left atrial enlargement. Right cardiac chamber sizes are within normal limits. Mild focal aortic valve sclerosis with adequate cusp excursion. Moderately thickened mitral valve leaflets with reduced excursion. Echogenic material noted on posterior mitral valve leaflet. Moderate mitral annulus and aortic root calcification. Pulmonic valve not visualized. Normal tricuspid valve structure. IVC dilated at 2.3 cm without physiological collapse, suggestive of increased RA pressure. A color flow and spectral Doppler study was performed and revealed: Trace aortic insufficiency. Mild mitral regurgitation. Mitral P1/2 time of 81 m/s is compatible with a mitral valve area of 1.7 cm2. Peak mitral valve diastolic gradient of 6 mmHg and a mean gradient of 3 mmHg. Mitral diastolic velocities suggest mild left ventricular diastolic dysfunction (Grade I). Mild tricuspid regurgitation. Tricuspid systolic velocities suggests peak right ventricular systolic pressure of 44 mmHg, consistent with mild pulmonary hypertension.
[2018-05-29 12:00] VITALS: BP 134/92
--- NOTE | 2018-05-29 12:27 | Pulmonology Progress Note ---
Assessment/Plan Problems: (1) Acute respiratory failure (2) Aspiration pneumonia (3) Acute encephalopathy (4) CAD (coronary artery disease) (5) Afib (6) COPD (chronic obstructive pulmonary disease) Assessment/Plan improving off bipap check sputum chest PT fever is lower continue abx titrate fio2 to sat of 92% dvt prophylaxis. Subjective ROS Limited/Unobtainable: Yes Interval Events: off bipap Allergies: Coded Allergies: Mushroom (Verified Allergy, Severe, 05/28/18) MORPHINE (Unverified Allergy, Intermediate, Itching, 01/04/15) PENICILLINS (Unverified Allergy, Intermediate, Hives, 01/04/15) CELECOXIB (Verified Allergy, Mild, 01/15/09) Objective Last 24 Hour Vital Signs Date Time Temp Pulse Resp B/P (MAP) Pulse Ox O2 Delivery O2 Flow Rate FiO2 05/29/18 09:58 91 148/76 05/29/18 08:00 98 05/29/18 08:00 97.9 91 20 148/76 (100) 100 05/29/18 08:00 Venturi Mask 05/29/18 07:10 97.7 05/29/18 04:00 98.8 98 20 147/62 (90) 98 05/29/18 04:00 Venturi Mask 05/29/18 04:00 103 05/29/18 04:00 45 05/29/18 00:00 Venturi Mask 05/29/18 00:00 98.2 99 18 150/62 (91) 97 05/29/18 00:00 107 05/28/18 20:00 98.1 91 18 136/62 (86) 98 05/28/18 20:00 Bi-pap 05/28/18 20:00 87 05/28/18 20:00 45 05/28/18 16:00 Bi-pap 05/28/18 16:00 98.1 83 20 124/71 (88) 99 05/28/18 16:00 83 05/28/18 16:00 45 05/28/18 14:07 74 142/71 Intake and Output 05/28/18 05/29/18 18:59 06:59 Intake Total 410 ml 710 ml Output Total 400 ml Balance 410 ml 310 ml Intake Oral 250 ml IV Total 160 ml 710 ml Output Urine Total 400 ml # Voids 1 General Appearance: cachetic HEENT: normocephalic, atraumatic Respiratory/Chest: chest wall non-tender, crackles/rales Cardiovascular: normal peripheral pulses, regular rhythm Abdomen: normal bowel sounds, soft, non tender Genitourinary: normal external genitalia Extremities: no clubbing Skin: no rash Neurologic/Psychiatric: clip riveter II-XII grossly normal Microbiology Date/Time Source Procedure Growth Status 05/28/18 02:10 Blood Blood Culture - Preliminary Resulted 05/28/18 02:00 Blood Blood Culture - Preliminary Resulted 05/28/18 09:00 Nasal Nares Influenza Types A,B Antigen (JACY) - Final Complete 05/28/18 09:00 Sputum Gram Stain - Final Resulted 05/28/18 09:00 Sputum Sputum Culture Pending Resulted 05/28/18 02:05 Nasal Nares Influenza Types A,B Antigen (JACY) - Final Complete 05/28/18 04:17 Rectum Received Laboratory Tests 05/28/18 19:55: Troponin I 0.016 05/28/18 21:00: Urine Legionella Antigen [Pending] 05/29/18 01:35: Troponin I 0.011 05/29/18 04:00: White Blood Count 12.1H, Red Blood Count 5.00, Hemoglobin 10.8L, Hematocrit 35.8L, Mean Corpuscular Volume 72L, Mean Corpuscular Hemoglobin 21.7L, Mean Corpuscular Hemoglobin Concent 30.3L, Red Cell Distribution Width 15.6H, Platelet Count 166, Mean Platelet Volume 8.9, Neutrophils (%) (Auto) 78.2H, Lymphocytes (%) (Auto) 14.2L, Monocytes (%) (Auto) 6.0, Eosinophils (%) (Auto) 1.1, Basophils (%) (Auto) 0.6, Sodium Level 148H, Potassium Level 3.8, Chloride Level 109H, Carbon Dioxide Level 31, Anion Gap 8, Blood Urea Nitrogen 38H, Creatinine 1.4H, Estimat Glomerular Filtration Rate , Glucose Level 108H, Calcium Level 10.2H, Phosphorus Level 4.5, Albumin 2.8L Current Medications Medications (Trade) Dose Ordered Sig/Ann Route PRN Reason Start Time Stop Time Status Last Admin Dose Admin Acetaminophen (Tylenol) 650 mg Q4H PRN ORAL fever 05/28/18 07:30 06/27/18 07:29 05/29/18 06:40 Al Hydroxide/Mg Hydroxide (Mylanta II) 30 ml Q6H PRN ORAL dyspepsia 05/28/18 07:30 06/27/18 07:29 Albuterol/ Ipratropium (Albuterol/ Ipratropium) 3 ml Q4H PRN HHN Shortness of Breath 05/28/18 07:30 06/02/18 07:29 Amiodarone HCl (Cordarone) 200 mg DAILY ORAL 05/28/18 09:00 06/27/18 08:59 05/28/18 13:30 Amlodipine Besylate (Norvasc) 2.5 mg DAILY ORAL 05/28/18 14:00 06/27/18 08:59 05/29/18 09:58 Cefepime HCl 1 gm/ Dextrose 55 ml @ 110 mls/hr Q24H IV 05/28/18 09:00 06/04/18 08:59 05/29/18 09:58 Heparin Sodium (Porcine) (Heparin 5000 units/ml) 5,000 units EVERY 12 HOURS SUBQ 05/28/18 09:00 06/27/18 08:59 05/29/18 10:02 Nitroglycerin (Ntg) 0.4 mg Q5M PRN SL Prn Chest Pain 05/28/18 07:30 06/27/18 07:29 Ondansetron HCl (Zofran) 4 mg Q6H PRN IVP Nausea & Vomiting 05/28/18 07:30 06/27/18 07:29 Polyethylene Glycol (Miralax) 17 gm DAILYPRN PRN ORAL Constipation 05/28/18 07:30 06/27/18 07:29 Sodium Chloride 1,000 ml @ 50 mls/hr Q20H IV 05/28/18 16:45 06/27/18 16:44 05/28/18 17:11 Temazepam (Restoril) 15 mg HSPRN PRN ORAL Insomnia 05/28/18 07:30 06/04/18 07:29 Vancomycin HCl (Vanco rx to dose) 1 ea DAILY PRN MISC Per rx protocol 05/28/18 07:30 06/27/18 07:29 Vancomycin HCl 500 mg/Dextrose 110 ml @ 110 mls/hr Q24H IVPB 05/29/18 01:00 06/03/18 00:59 05/29/18 02:01 Yuliet Mariee MD May 29, 2018 12:26
[2018-05-29 16:00] VITALS: BP 125/70
[2018-05-29] MEDS ORDERED: Tubing IV Secondary IV ONE (17:26)
--- NOTE | 2018-05-29 18:15 | NUR ---
NURSE NOTES: PATIENT KEPT CLEAN AND DRY. PATIENT IS CONFUSED AND PULLING OFF OBJECTS. WILL CONTINUE TO MONITOR.
--- NOTE | 2018-05-29 19:14 | NUR ---
HAND-OFF: Report given to Kyle Kahn RN.
--- NOTE | 2018-05-29 19:15 | NUR ---
NURSE NOTES: Bedside report received from MARGY Bennett. Pt is French speaking, according to Dr. Martinez confused, trying to get out of bed. Vital signs stable. Pt was downgraded to NC 2L; sating at 100%. Skin is clean and dry, dressings intact. SPR mattress for sacral redness. Patient was turned. L/R hand IV; asymptomatic running NS @ 50. Bed is locked in lowest position, sr x3, bed alarm on, call michaels within reach. Will continue to monitor and follow plan of care.
[2018-05-29 20:00] VITALS: BP 147/67
--- NOTE | 2018-05-29 20:41 | General Progress Note ---
Assessment/Plan Status: progressing Assessment/Plan This is an 87-year-old female admitted with chronic obstructive pulmonary disease exacerbation, right lower lobe infiltrate/pneumonia with altered mental status and acute kidney injury. The patient will be admitted to [facility] with the following medical problems. 1. Chronic obstructive pulmonary disease exacerbation and pneumonia. The patient has been seen by Pulmonary. Infectious Disease has been consulted, pancultured. IV antibiotics per ID. Continue with BiPAP and suction p.r.n. Transition to Venturi-mask when stable. 2. Acute kidney injury. We will monitor I's and O's, gentle intravenous fluids. Repeat a BMP in a.m. Consider Nephrology consult. 3. History of chronic atrial fibrillation. Continue with amiodarone. The patient is in sinus rhythm at this time. 4. History of hypertension. Continue with amlodipine and hold for systolic blood pressure less than 110. 5. Altered mental status, most likely from above conditions. We will keep n.p.o. except for medications and start IV fluids. 6. DVT prophylaxis with heparin subcutaneous and SCDs. 7. The patient is Full Code per policy. We will discuss with the family. Plan: -continue present care - freedom splint to keep patient from attempting to move out of bed - am labs and chest xray - fu cultures and antibiotics per ID - pulmonary toiltet and HHN prn discussed with nurse Subjective Date patient seen: May 29, 2018 Respiratory: Reports: cough Allergies: Coded Allergies: Mushroom (Verified Allergy, Severe, 05/28/18) MORPHINE (Unverified Allergy, Intermediate, Itching, 01/04/15) PENICILLINS (Unverified Allergy, Intermediate, Hives, 01/04/15) CELECOXIB (Verified Allergy, Mild, 01/15/09) All Systems: reviewed and negative except above Objective Last 24 Hour Vital Signs Date Time Temp Pulse Resp B/P (MAP) Pulse Ox O2 Delivery O2 Flow Rate FiO2 05/29/18 16:00 107 05/29/18 16:00 98.2 96 22 125/70 (88) 96 05/29/18 16:00 Nasal Cannula 2.0 05/29/18 12:00 98.7 97 24 134/92 (106) 98 05/29/18 12:00 Nasal Cannula 2.0 05/29/18 12:00 87 05/29/18 09:58 91 148/76 05/29/18 08:00 98 05/29/18 08:00 97.9 91 20 148/76 (100) 100 05/29/18 08:00 Venturi Mask 05/29/18 07:10 97.7 05/29/18 04:00 98.8 98 20 147/62 (90) 98 05/29/18 04:00 Venturi Mask 05/29/18 04:00 103 05/29/18 04:00 45 05/29/18 00:00 Venturi Mask 05/29/18 00:00 98.2 99 18 150/62 (91) 97 05/29/18 00:00 107 Intake and Output 05/28/18 05/29/18 19:00 07:00 Intake Total 460 ml 710 ml Output Total 400 ml Balance 460 ml 310 ml Intake Oral 250 ml IV Total 210 ml 710 ml Output Urine Total 400 ml # Voids 1 Laboratory Tests 05/28/18 21:00: Urine Legionella Antigen [Pending] 05/29/18 01:35: Troponin I 0.011 05/29/18 04:00: White Blood Count 12.1H, Red Blood Count 5.00, Hemoglobin 10.8L, Hematocrit 35.8L, Mean Corpuscular Volume 72L, Mean Corpuscular Hemoglobin 21.7L, Mean Corpuscular Hemoglobin Concent 30.3L, Red Cell Distribution Width 15.6H, Platelet Count 166, Mean Platelet Volume 8.9, Neutrophils (%) (Auto) 78.2H, Lymphocytes (%) (Auto) 14.2L, Monocytes (%) (Auto) 6.0, Eosinophils (%) (Auto) 1.1, Basophils (%) (Auto) 0.6, Sodium Level 148H, Potassium Level 3.8, Chloride Level 109H, Carbon Dioxide Level 31, Anion Gap 8, Blood Urea Nitrogen 38H, Creatinine 1.4H, Estimat Glomerular Filtration Rate , Glucose Level 108H, Calcium Level 10.2H, Phosphorus Level 4.5, Albumin 2.8L Height (Feet): 5 Height (Inches): 4.00 Weight (Pounds): 122 General Appearance: no apparent distress, alert EENT: PERRL/EOMI, pharynx normal Cardiovascular: normal rate, regular rhythm, no gallop/murmur, no JVD Respiratory/Chest: crackles/rales Abdomen: non tender, soft, no mass Extremities: non-tender, normal inspection, no calf tenderness Edema: no edema noted Arm (L), no edema noted Arm (R), no edema noted Leg (L), no edema noted Leg (R), no edema noted Pedal (L), no edema noted Pedal (R), no edema noted Generalized Neurologic: alert, responsive, disoriented Skin: warm/dry Lymphatic: normal anterior cervical (L), normal anterior cervical (R), normal posterior cervical (L), normal posterior cervical (R), normal submandibular (L) , normal submandibular (R), normal supraclavicular (L), normal supraclavicular ( R), normal axillary (L), normal axillary (R), normal inguinal (L), normal inguinal (R), normal other Cruz Valderrama MD May 29, 2018 20:41
[2018-05-30] VITALS: BP 146/73
[2018-05-30] MEDS: Vancomycin 500mg/D5W 110ml IVPB SCH ×2 (00:45)
[2018-05-30 04:00] VITALS: BP 160/72
[2018-05-30 06:01] LABS: HEMOGLOBIN 10.9 G/DL (12.0-16.0); MEAN CORPUSCULAR VOLUME 72 FL (80-99); PLATELET COUNT 197 K/UL (150-450); RED BLOOD COUNT 5.12 M/UL (4.20-5.40); RED CELL DISTRIBUTION WIDTH 16.1 % (11.6-14.8); WHITE BLOOD COUNT 8.2 K/UL (4.8-10.8)
[2018-05-30 06:21] LABS: ALANINE AMINOTRANSFERASE 11 U/L (12-78); ALBUMIN 2.8 G/DL (3.4-5.0); ALBUMIN/GLOBULIN RATIO 0.7 (1.0-2.7); ALKALINE PHOSPHATASE 68 U/L (46-116); ANION GAP 7 mmol/L (5-15); ASPARTATE AMINO TRANSFERASE 12 U/L (15-37); BILIRUBIN,TOTAL 0.3 MG/DL (0.2-1.0); BLOOD UREA NITROGEN 37 mg/dL (7-18); CALCIUM 10.3 MG/DL (8.5-10.1); CARBON DIOXIDE 32 MMOL/L (21-32); CHLORIDE 113 MMOL/L (98-107); CREATININE 1.1 MG/DL (0.55-1.30); SODIUM 152 MMOL/L (136-145)
--- NOTE | 2018-05-30 07:08 | NUR ---
HAND-OFF: Report given to MARGY Bennett.
--- NOTE | 2018-05-30 07:09 | NUR ---
NURSE NOTES: Received patient from MARG[facility] Duenas. Patient in bed and asleep. On 4L via NC 02 sat at 91%. launch check out in placed. On SPR matress. Purewick in placed. IV sites on left and right hand are asymptomatic and TKO at 20 cc/hour. No fever. Bed in lowest position with side rails up. Will continue to follow plan of care.
[2018-05-30 08:00] VITALS: BP 147/65
[2018-05-30] MEDS: Cefepime HCl 1 GM in D5W 55 ML IV SCH (08:44)
[2018-05-30] MEDS: Amiodarone 200mg tab ORAL SCH (08:44)
[2018-05-30] MEDS: Heparin 5000 units/ml inj SUBQ SCH ×2 (08:46→20:06)
--- NOTE | 2018-05-30 09:20 | Infectious Diseases Prog Note ---
Assessment/Plan Assessment/Plan 87 yo feamle with PMHx of COPD, HTN, and A.fib sent to the ED from her nuring home for SOB. Sepsis - Likely PNA 05/28/18 CXR with atalectasis vs consolidation in the right side. UA (-) Sputum Cx 05/28/18 - Staph a. and NF ( Sen pend) (Inf Neg) Positive blood Cx - Likely contaminant\ BCx 05/28/18 - CoNS Will repeat Leukocytosis 15 on admit - now resolved Febrile to 101.5 - now resolved COPD CAD A. fib PLAN - Continue Cefepime #3 and vancomycin #3 - f/u Urine Strep ag, Legionella - Monitor CBC and Temps We will continue to follow Ms. Nowak during this hospitalization. Subjective Allergies: Coded Allergies: Mushroom (Verified Allergy, Severe, 05/28/18) MORPHINE (Unverified Allergy, Intermediate, Itching, 01/04/15) PENICILLINS (Unverified Allergy, Intermediate, Hives, 01/04/15) CELECOXIB (Verified Allergy, Mild, 01/15/09) Subjective Patient now off BiPAP Afebrile Leukocytosis resolved Objective Vital Signs Last 24 Hour Vital Signs Date Time Temp Pulse Resp B/P (MAP) Pulse Ox O2 Delivery O2 Flow Rate FiO2 05/30/18 08:45 107 147/65 05/30/18 08:00 98.8 107 22 147/65 (92) 96 05/30/18 04:00 Nasal Cannula 2.0 05/30/18 04:00 101 05/30/18 04:00 98.7 101 22 160/72 (101) 98 05/30/18 00:00 Nasal Cannula 2.0 05/30/18 00:00 98.8 94 24 146/73 (97) 98 05/30/18 00:00 101 05/29/18 20:00 96 05/29/18 20:00 98.4 94 22 147/67 (93) 98 05/29/18 20:00 Nasal Cannula 2.0 05/29/18 16:00 107 05/29/18 16:00 98.2 96 22 125/70 (88) 96 05/29/18 16:00 Nasal Cannula 2.0 05/29/18 12:00 98.7 97 24 134/92 (106) 98 05/29/18 12:00 Nasal Cannula 2.0 05/29/18 12:00 87 05/29/18 09:58 91 148/76 Height (Feet): 5 Height (Inches): 4.00 Weight (Pounds): 122 Objective General:: cachetic, On 2L NC, Awake HEENT: normocephalic, atraumatic, DMM, EOMI Respiratory/Chest: Mild crakles B/L Cardiovascular/Chest: RRR, S1, S2 Abdomen: Soft, NT, ND, + BS Microbiology Date/Time Source Procedure Growth Status 05/28/18 02:10 Blood Blood Culture - Preliminary Staphylococcus Sp Coag Neg Resulted 05/28/18 02:00 Blood Blood Culture - Preliminary Staphylococcus Sp Coag Neg Resulted 05/28/18 09:00 Nasal Nares Influenza Types A,B Antigen (JACY) - Final Complete 05/28/18 09:00 Sputum Gram Stain - Final Resulted 05/28/18 09:00 Sputum Culture - Preliminary Staphylococcus Aureus Usual Respiratory Kierra Resulted 05/28/18 04:17 Nasal Nares MRSA Culture - Final Staphylococcus Aureus - Mrsa Complete 05/28/18 02:05 Nasal Nares Influenza Types A,B Antigen (JACY) - Final Complete 05/28/18 04:17 Rectum - Final NO CARBAPENEM-RESISTANT ENTEROBACTERI... Complete 05/28/18 04:17 Rectum VRE Culture - Final NO VANCOMYCIN RESISTANT ENTEROCOCCUS ... Complete Laboratory Tests Test 05/30/18 05:50 White Blood Count 8.2 K/UL (4.8-10.8) Red Blood Count 5.12 M/UL (4.20-5.40) Hemoglobin 10.9 G/DL (12.0-16.0) L Hematocrit 37.0 % (37.0-47.0) Mean Corpuscular Volume 72 FL (80-99) L Mean Corpuscular Hemoglobin 21.2 PG (27.0-31.0) L Mean Corpuscular Hemoglobin Concent 29.3 G/DL (32.0-36.0) L Red Cell Distribution Width 16.1 % (11.6-14.8) H Platelet Count 197 K/UL (150-450) Mean Platelet Volume 7.8 FL (6.5-10.1) Neutrophils (%) (Auto) % (45.0-75.0) Lymphocytes (%) (Auto) % (20.0-45.0) Monocytes (%) (Auto) % (1.0-10.0) Eosinophils (%) (Auto) % (0.0-3.0) Basophils (%) (Auto) % (0.0-2.0) Sodium Level 152 MMOL/L (136-145) H Potassium Level 4.0 MMOL/L (3.5-5.1) Chloride Level 113 MMOL/L (98-107) H Carbon Dioxide Level 32 MMOL/L (21-32) Anion Gap 7 mmol/L (5-15) Blood Urea Nitrogen 37 mg/dL (7-18) H Creatinine 1.1 MG/DL (0.55-1.30) Estimat Glomerular Filtration Rate mL/min (>60) Glucose Level 117 MG/DL (74-106) H Calcium Level 10.3 MG/DL (8.5-10.1) H Total Bilirubin 0.3 MG/DL (0.2-1.0) Aspartate Amino Transf (AST/SGOT) 12 U/L (15-37) L Alanine Aminotransferase (ALT/SGPT) 11 U/L (12-78) L Alkaline Phosphatase 68 U/L (46-116) Pro-B-Type Natriuretic Peptide 2558 pg/mL (0-125) H Total Protein 7.1 G/DL (6.4-8.2) Albumin 2.8 G/DL (3.4-5.0) L Globulin 4.3 g/dL Albumin/Globulin Ratio 0.7 (1.0-2.7) L Current Medications Medications (Trade) Dose Ordered Sig/Ann Route PRN Reason Start Time Stop Time Status Last Admin Dose Admin Acetaminophen (Tylenol) 650 mg Q4H PRN ORAL fever 05/28/18 07:30 06/27/18 07:29 05/29/18 06:40 Al Hydroxide/Mg Hydroxide (Mylanta II) 30 ml Q6H PRN ORAL dyspepsia 05/28/18 07:30 06/27/18 07:29 Albuterol/ Ipratropium (Albuterol/ Ipratropium) 3 ml Q4H PRN HHN Shortness of Breath 05/28/18 07:30 06/02/18 07:29 Amiodarone HCl (Cordarone) 200 mg DAILY ORAL 05/28/18 09:00 06/27/18 08:59 05/30/18 08:44 Amlodipine Besylate (Norvasc) 2.5 mg DAILY ORAL 05/28/18 14:00 06/27/18 08:59 05/30/18 08:45 Cefepime HCl 1 gm/ Dextrose 55 ml @ 110 mls/hr Q24H IV 05/28/18 09:00 06/04/18 08:59 05/30/18 08:44 Heparin Sodium (Porcine) (Heparin 5000 units/ml) 5,000 units EVERY 12 HOURS SUBQ 05/28/18 09:00 06/27/18 08:59 05/30/18 08:46 Nitroglycerin (Ntg) 0.4 mg Q5M PRN SL Prn Chest Pain 05/28/18 07:30 06/27/18 07:29 Ondansetron HCl (Zofran) 4 mg Q6H PRN IVP Nausea & Vomiting 05/28/18 07:30 06/27/18 07:29 Polyethylene Glycol (Miralax) 17 gm DAILYPRN PRN ORAL Constipation 05/28/18 07:30 06/27/18 07:29 Temazepam (Restoril) 15 mg HSPRN PRN ORAL Insomnia 05/28/18 07:30 06/04/18 07:29 Vancomycin HCl (Vanco rx to dose) 1 ea DAILY PRN MISC Per rx protocol 05/28/18 07:30 06/27/18 07:29 Vancomycin HCl 500 mg/Dextrose 110 ml @ 110 mls/hr Q24H IVPB 05/29/18 01:00 06/03/18 00:59 05/30/18 00:45 Clint Harris MD May 30, 2018 09:20
--- NOTE | 2018-05-30 09:23 | General Progress Note ---
Assessment/Plan Status: progressing Assessment/Plan This is an 87-year-old female admitted with chronic obstructive pulmonary disease exacerbation, right lower lobe infiltrate/pneumonia with altered mental status and acute kidney injury. The patient will be admitted to [facility] with the following medical problems. 1. Chronic obstructive pulmonary disease exacerbation and pneumonia. The patient has been seen by Pulmonary. Infectious Disease has been consulted, pancultured. IV antibiotics per ID. Continue with BiPAP and suction p.r.n. Transition to Venturi-mask when stable. 2. Acute kidney injury. We will monitor I's and O's, gentle intravenous fluids. Repeat a BMP in a.m. Consider Nephrology consult. 3. History of chronic atrial fibrillation. Continue with amiodarone. The patient is in sinus rhythm at this time. 4. History of hypertension. Continue with amlodipine and hold for systolic blood pressure less than 110. 5. Altered mental status, most likely from above conditions. We will keep n.p.o. except for medications and start IV fluids. 6. DVT prophylaxis with heparin subcutaneous and SCDs. 7. The patient is Full Code per policy. We will discuss with the family. Plan: -continue present care - freedom splint to keep patient from attempting to move out of bed - fu chest xray - fu cultures and antibiotics per ID - pulmonary toiltet and HHN prn - possible video swallow study if more responsive today discussed with nurse Subjective Date patient seen: May 30, 2018 ROS Limited/Unobtainable: Yes Neurologic/Psychiatric: Reports: other Allergies: Coded Allergies: Mushroom (Verified Allergy, Severe, 05/28/18) MORPHINE (Unverified Allergy, Intermediate, Itching, 01/04/15) PENICILLINS (Unverified Allergy, Intermediate, Hives, 01/04/15) CELECOXIB (Verified Allergy, Mild, 01/15/09) All Systems: reviewed and negative except above Objective Last 24 Hour Vital Signs Date Time Temp Pulse Resp B/P (MAP) Pulse Ox O2 Delivery O2 Flow Rate FiO2 05/30/18 08:45 107 147/65 05/30/18 08:00 98.8 107 22 147/65 (92) 96 05/30/18 04:00 Nasal Cannula 2.0 05/30/18 04:00 101 05/30/18 04:00 98.7 101 22 160/72 (101) 98 05/30/18 00:00 Nasal Cannula 2.0 05/30/18 00:00 98.8 94 24 146/73 (97) 98 05/30/18 00:00 101 05/29/18 20:00 96 05/29/18 20:00 98.4 94 22 147/67 (93) 98 05/29/18 20:00 Nasal Cannula 2.0 05/29/18 16:00 107 05/29/18 16:00 98.2 96 22 125/70 (88) 96 05/29/18 16:00 Nasal Cannula 2.0 05/29/18 12:00 98.7 97 24 134/92 (106) 98 05/29/18 12:00 Nasal Cannula 2.0 05/29/18 12:00 87 05/29/18 09:58 91 148/76 Intake and Output 05/29/18 05/30/18 19:00 07:00 Intake Total 910.0 ml 60 ml Output Total 300 ml 700 ml Balance 610.0 ml -640 ml Intake Oral 200 ml 60 ml IV Total 710.0 ml Output Urine Total 300 ml 700 ml Laboratory Tests 05/30/18 05:50: White Blood Count 8.2, Red Blood Count 5.12, Hemoglobin 10.9L, Hematocrit 37.0, Mean Corpuscular Volume 72L, Mean Corpuscular Hemoglobin 21.2L, Mean Corpuscular Hemoglobin Concent 29.3L, Red Cell Distribution Width 16.1H, Platelet Count 197, Mean Platelet Volume 7.8, Neutrophils (%) (Auto) , Lymphocytes (%) (Auto) , Monocytes (%) (Auto) , Eosinophils (%) (Auto) , Basophils (%) (Auto) , Sodium Level 152H, Potassium Level 4.0, Chloride Level 113H, Carbon Dioxide Level 32, Anion Gap 7, Blood Urea Nitrogen 37H, Creatinine 1.1, Estimat Glomerular Filtration Rate , Glucose Level 117H, Calcium Level 10.3H, Total Bilirubin 0.3, Aspartate Amino Transf (AST/SGOT) 12L, Alanine Aminotransferase (ALT/SGPT) 11L, Alkaline Phosphatase 68, Pro-B-Type Natriuretic Peptide 2558H, Total Protein 7.1, Albumin 2.8L, Globulin 4.3, Albumin/Globulin Ratio 0.7L Height (Feet): 5 Height (Inches): 4.00 Weight (Pounds): 122 General Appearance: no apparent distress, alert EENT: PERRL/EOMI, pharynx normal Cardiovascular: normal rate, regular rhythm, no gallop/murmur, no JVD Respiratory/Chest: crackles/rales, expiratory wheezing Abdomen: non tender, soft, no mass Extremities: non-tender, normal inspection, no calf tenderness Edema: no edema noted Arm (L), no edema noted Arm (R), no edema noted Leg (L), no edema noted Leg (R), no edema noted Pedal (L), no edema noted Pedal (R), no edema noted Generalized Neurologic: alert, responsive, disoriented Skin: warm/dry Lymphatic: normal anterior cervical (L), normal anterior cervical (R), normal posterior cervical (L), normal posterior cervical (R), normal submandibular (L) , normal submandibular (R), normal supraclavicular (L), normal supraclavicular ( R), normal axillary (L), normal axillary (R), normal inguinal (L), normal inguinal (R), normal other Cruz Valderrama MD May 30, 2018 09:23
--- NOTE | 2018-05-30 09:54 | NUR ---
RADIOLOGY DEPT CHEST X-RAY DONE.-P.DYE
--- NOTE | 2018-05-30 09:58 | NUR ---
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 98.8 HR 107 RR 22 B/P 147/65 2L NC NA 152 BUN 37 BNP 2558 IS: IVF D5@50ML/HR VANCO IV CEFEPIME IV STEP DOWN STATUS
--- NOTE | 2018-05-30 10:09 | Consultation ---
History of Present Illness General Chief Complaint: Dyspnea/Respdistress Reason for Consultation: PNA Present Illness HPI 87-year-old female with history of COPD, coronary artery disease, history of AFib, hypertension, and dementia, who was brought in for sob. the pt is confused has waxing and waning of consciousness. unable to participate and answer questions. the pt has memory impairment,. Allergies: Coded Allergies: Mushroom (Verified Allergy, Severe, 05/28/18) MORPHINE (Unverified Allergy, Intermediate, Itching, 01/04/15) PENICILLINS (Unverified Allergy, Intermediate, Hives, 01/04/15) CELECOXIB (Verified Allergy, Mild, 01/15/09) Medication History Scheduled Amiodarone Hcl* (Cordarone*), 200 MG ORAL DAILY Amlodipine Besylate (Norvasc), 5 MG ORAL DAILY, (Reported) Denosumab (Prolia), 60 MG SUBQ EVERY 6 MONTHS, (Reported) Donepezil Hcl* (Donepezil Hcl*), 5 MG ORAL HS, (Reported) Escitalopram Oxalate* (Lexapro*), 10 MG ORAL DAILY, (Reported) Fluticasone/Salmeterol (Advair 100-50 Diskus), 1 PUFF INH EVERY 12 HOURS, ( Reported) Furosemide* (Lasix*), 40 MG ORAL BID, (Reported) Hydrochlorothiazide* (Hydrochlorothiazide*), 25 MG ORAL DAILY, (Reported) Methylprednisolone* (Medrol*), 4 MG ORAL DAILY Mirtazapine* (Mirtazapine*), 15 MG ORAL BEDTIME, (Reported) Montelukast Sodium* (Singulair*), 10 MG ORAL DAILY, (Reported) Montelukast Sodium* (Singulair*), 10 MG ORAL BEDTIME, (Reported) Pantoprazole* (Pantoprazole*), 40 MG ORAL DAILY, (Reported) Potassium Gluconate (Potassium), 10 MEQ PO BID, (Reported) Tiotropium [place]* (Spiriva*), 1 PUFF INH DAILY, (Reported) Valsartan (Diovan), 160 MG ORAL BID, (Reported) Verapamil Hcl* (Calan*), 240 MG ORAL DAILY, (Reported) [vitamin B12], 1 ML IM ONCE A WEEK, (Reported) Scheduled PRN Albuterol Sulfate* (Albuterol Sulfate Hhn*), 3 ML INH Q6H PRN for Shortness of Breath, (Reported) Tramadol Hcl* (Ultram*), 50 MG ORAL Q6H PRN for For Pain, (Reported) Patient History Limited by: medical condition History Provided By: Patient, Medical Record, PMD Healthcare decision maker Resuscitation status Advanced Directive on File Yes Past Medical/Surgical History Past Medical/Surgical History: (1) Acute respiratory failure (2) Confused (3) COPD (chronic obstructive pulmonary disease) (4) CAD (coronary artery disease) (5) Aspiration pneumonia (6) Afib (7) Acute encephalopathy (8) Pleural effusion (9) COPD with acute exacerbation Review of Systems Psychiatric: Reports: anxiety, emotional problems ROS Narrative the pt is agitated and attempting to come out of bed Physical Exam General Appearance: alert, lethargic, confused, agitated Last 24 Hour Vital Signs Date Time Temp Pulse Resp B/P (MAP) Pulse Ox O2 Delivery O2 Flow Rate FiO2 05/30/18 08:45 107 147/65 05/30/18 08:00 Nasal Cannula 4.0 05/30/18 08:00 98.8 107 22 147/65 (92) 96 05/30/18 04:00 Nasal Cannula 2.0 05/30/18 04:00 101 05/30/18 04:00 98.7 101 22 160/72 (101) 98 05/30/18 00:00 Nasal Cannula 2.0 05/30/18 00:00 98.8 94 24 146/73 (97) 98 05/30/18 00:00 101 05/29/18 20:00 96 05/29/18 20:00 98.4 94 22 147/67 (93) 98 05/29/18 20:00 Nasal Cannula 2.0 05/29/18 16:00 107 05/29/18 16:00 98.2 96 22 125/70 (88) 96 05/29/18 16:00 Nasal Cannula 2.0 05/29/18 12:00 98.7 97 24 134/92 (106) 98 05/29/18 12:00 Nasal Cannula 2.0 05/29/18 12:00 87 Intake and Output 05/29/18 05/30/18 19:00 07:00 Intake Total 910.0 ml 60 ml Output Total 300 ml 700 ml Balance 610.0 ml -640 ml Intake Oral 200 ml 60 ml IV Total 710.0 ml Output Urine Total 300 ml 700 ml Laboratory Tests Test 05/30/18 05:50 White Blood Count 8.2 K/UL (4.8-10.8) Red Blood Count 5.12 M/UL (4.20-5.40) Hemoglobin 10.9 G/DL (12.0-16.0) L Hematocrit 37.0 % (37.0-47.0) Mean Corpuscular Volume 72 FL (80-99) L Mean Corpuscular Hemoglobin 21.2 PG (27.0-31.0) L Mean Corpuscular Hemoglobin Concent 29.3 G/DL (32.0-36.0) L Red Cell Distribution Width 16.1 % (11.6-14.8) H Platelet Count 197 K/UL (150-450) Mean Platelet Volume 7.8 FL (6.5-10.1) Neutrophils (%) (Auto) % (45.0-75.0) Lymphocytes (%) (Auto) % (20.0-45.0) Monocytes (%) (Auto) % (1.0-10.0) Eosinophils (%) (Auto) % (0.0-3.0) Basophils (%) (Auto) % (0.0-2.0) Sodium Level 152 MMOL/L (136-145) H Potassium Level 4.0 MMOL/L (3.5-5.1) Chloride Level 113 MMOL/L (98-107) H Carbon Dioxide Level 32 MMOL/L (21-32) Anion Gap 7 mmol/L (5-15) Blood Urea Nitrogen 37 mg/dL (7-18) H Creatinine 1.1 MG/DL (0.55-1.30) Estimat Glomerular Filtration Rate mL/min (>60) Glucose Level 117 MG/DL (74-106) H Calcium Level 10.3 MG/DL (8.5-10.1) H Total Bilirubin 0.3 MG/DL (0.2-1.0) Aspartate Amino Transf (AST/SGOT) 12 U/L (15-37) L Alanine Aminotransferase (ALT/SGPT) 11 U/L (12-78) L Alkaline Phosphatase 68 U/L (46-116) Pro-B-Type Natriuretic Peptide 2558 pg/mL (0-125) H Total Protein 7.1 G/DL (6.4-8.2) Albumin 2.8 G/DL (3.4-5.0) L Globulin 4.3 g/dL Albumin/Globulin Ratio 0.7 (1.0-2.7) L Height (Feet): 5 Height (Inches): 4.00 Weight (Pounds): 122 Medications Current Medications Medications (Trade) Dose Ordered Sig/Ann Route PRN Reason Start Time Stop Time Status Last Admin Dose Admin Acetaminophen (Tylenol) 650 mg Q4H PRN ORAL fever 05/28/18 07:30 06/27/18 07:29 05/29/18 06:40 Al Hydroxide/Mg Hydroxide (Mylanta II) 30 ml Q6H PRN ORAL dyspepsia 05/28/18 07:30 06/27/18 07:29 Albuterol/ Ipratropium (Albuterol/ Ipratropium) 3 ml Q4H PRN HHN Shortness of Breath 05/28/18 07:30 06/02/18 07:29 Albuterol/ Ipratropium (Albuterol/ Ipratropium) 3 ml Q6HRT HHN 05/30/18 13:00 06/04/18 12:59 Amiodarone HCl (Cordarone) 200 mg DAILY ORAL 05/28/18 09:00 06/27/18 08:59 05/30/18 08:44 Amlodipine Besylate (Norvasc) 2.5 mg DAILY ORAL 05/28/18 14:00 06/27/18 08:59 05/30/18 08:45 Cefepime HCl 1 gm/ Dextrose 55 ml @ 110 mls/hr Q24H IV 05/28/18 09:00 06/04/18 08:59 05/30/18 08:44 Dextrose 1,000 ml @ 50 mls/hr Q20H IV 05/30/18 09:30 06/29/18 09:29 05/30/18 09:42 Heparin Sodium (Porcine) (Heparin 5000 units/ml) 5,000 units EVERY 12 HOURS SUBQ 05/28/18 09:00 06/27/18 08:59 05/30/18 08:46 Nitroglycerin (Ntg) 0.4 mg Q5M PRN SL Prn Chest Pain 05/28/18 07:30 06/27/18 07:29 Ondansetron HCl (Zofran) 4 mg Q6H PRN IVP Nausea & Vomiting 05/28/18 07:30 06/27/18 07:29 Polyethylene Glycol (Miralax) 17 gm DAILYPRN PRN ORAL Constipation 05/28/18 07:30 06/27/18 07:29 Temazepam (Restoril) 15 mg HSPRN PRN ORAL Insomnia 05/28/18 07:30 06/04/18 07:29 Vancomycin HCl (Vanco rx to dose) 1 ea DAILY PRN MISC Per rx protocol 05/28/18 07:30 06/27/18 07:29 Vancomycin HCl 500 mg/Dextrose 110 ml @ 110 mls/hr Q24H IVPB 05/29/18 01:00 06/03/18 00:59 05/30/18 00:45 Assessment/Plan Problem List: (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 Liz Lo MD May 30, 2018 10:09
--- NOTE | 2018-05-30 10:37 | Pulmonology Progress Note ---
Assessment/Plan Problems: (1) Acute respiratory failure (2) Aspiration pneumonia (3) Acute encephalopathy (4) CAD (coronary artery disease) (5) Afib (6) COPD (chronic obstructive pulmonary disease) Assessment/Plan afebrielimproving off bipap check sputum chest PT fever is lower continue abx titrate fio2 to sat of 92% dvt prophylaxis. check CXR in the morning Subjective ROS Limited/Unobtainable: No Constitutional: Reports: no symptoms HEENT: Repors: no symptoms Respiratory: Reports: no symptoms Allergies: Coded Allergies: Mushroom (Verified Allergy, Severe, 05/28/18) MORPHINE (Unverified Allergy, Intermediate, Itching, 01/04/15) PENICILLINS (Unverified Allergy, Intermediate, Hives, 01/04/15) CELECOXIB (Verified Allergy, Mild, 01/15/09) Objective Last 24 Hour Vital Signs Date Time Temp Pulse Resp B/P (MAP) Pulse Ox O2 Delivery O2 Flow Rate FiO2 05/30/18 08:45 107 147/65 05/30/18 08:00 Nasal Cannula 4.0 05/30/18 08:00 98.8 107 22 147/65 (92) 96 05/30/18 04:00 Nasal Cannula 2.0 05/30/18 04:00 101 05/30/18 04:00 98.7 101 22 160/72 (101) 98 05/30/18 00:00 Nasal Cannula 2.0 05/30/18 00:00 98.8 94 24 146/73 (97) 98 05/30/18 00:00 101 05/29/18 20:00 96 05/29/18 20:00 98.4 94 22 147/67 (93) 98 05/29/18 20:00 Nasal Cannula 2.0 05/29/18 16:00 107 05/29/18 16:00 98.2 96 22 125/70 (88) 96 05/29/18 16:00 Nasal Cannula 2.0 05/29/18 12:00 98.7 97 24 134/92 (106) 98 05/29/18 12:00 Nasal Cannula 2.0 05/29/18 12:00 87 Intake and Output 05/29/18 05/30/18 19:00 07:00 Intake Total 910.0 ml 60 ml Output Total 300 ml 700 ml Balance 610.0 ml -640 ml Intake Oral 200 ml 60 ml IV Total 710.0 ml Output Urine Total 300 ml 700 ml General Appearance: WD/WN HEENT: normocephalic, atraumatic Respiratory/Chest: chest wall non-tender, lungs clear, normal breath sounds Breasts: no masses Cardiovascular: normal peripheral pulses, normal rate Abdomen: normal bowel sounds, no organomegaly, no scars Extremities: no cyanosis, no clubbing 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 Lymphatic: no neck adenopathy Microbiology Date/Time Source Procedure Growth Status 05/28/18 02:10 Blood Blood Culture - Preliminary Staphylococcus Sp Coag Neg Resulted 05/28/18 02:00 Blood Blood Culture - Preliminary Staphylococcus Sp Coag Neg Resulted 05/28/18 09:00 Nasal Nares Influenza Types A,B Antigen (JACY) - Final Complete 05/28/18 09:00 Sputum Gram Stain - Final Resulted 05/28/18 09:00 Sputum Culture - Preliminary Staphylococcus Aureus Usual Respiratory Kierra Resulted 05/28/18 04:17 Nasal Nares MRSA Culture - Final Staphylococcus Aureus - Mrsa Complete 05/28/18 02:05 Nasal Nares Influenza Types A,B Antigen (JACY) - Final Complete 05/28/18 04:17 Rectum - Final NO CARBAPENEM-RESISTANT ENTEROBACTERI... Complete 05/28/18 04:17 Rectum VRE Culture - Final NO VANCOMYCIN RESISTANT ENTEROCOCCUS ... Complete Laboratory Tests 05/30/18 05:50: White Blood Count 8.2, Red Blood Count 5.12, Hemoglobin 10.9L, Hematocrit 37.0, Mean Corpuscular Volume 72L, Mean Corpuscular Hemoglobin 21.2L, Mean Corpuscular Hemoglobin Concent 29.3L, Red Cell Distribution Width 16.1H, Platelet Count 197, Mean Platelet Volume 7.8, Neutrophils (%) (Auto) , Lymphocytes (%) (Auto) , Monocytes (%) (Auto) , Eosinophils (%) (Auto) , Basophils (%) (Auto) , Sodium Level 152H, Potassium Level 4.0, Chloride Level 113H, Carbon Dioxide Level 32, Anion Gap 7, Blood Urea Nitrogen 37H, Creatinine 1.1, Estimat Glomerular Filtration Rate , Glucose Level 117H, Calcium Level 10.3H, Total Bilirubin 0.3, Aspartate Amino Transf (AST/SGOT) 12L, Alanine Aminotransferase (ALT/SGPT) 11L, Alkaline Phosphatase 68, Pro-B-Type Natriuretic Peptide 2558H, Total Protein 7.1, Albumin 2.8L, Globulin 4.3, Albumin/Globulin Ratio 0.7L Current Medications Medications (Trade) Dose Ordered Sig/Ann Route PRN Reason Start Time Stop Time Status Last Admin Dose Admin Acetaminophen (Tylenol) 650 mg Q4H PRN ORAL fever 05/28/18 07:30 06/27/18 07:29 05/29/18 06:40 Al Hydroxide/Mg Hydroxide (Mylanta II) 30 ml Q6H PRN ORAL dyspepsia 05/28/18 07:30 06/27/18 07:29 Albuterol/ Ipratropium (Albuterol/ Ipratropium) 3 ml Q4H PRN HHN Shortness of Breath 05/28/18 07:30 06/02/18 07:29 Albuterol/ Ipratropium (Albuterol/ Ipratropium) 3 ml Q6HRT HHN 05/30/18 13:00 06/04/18 12:59 Amiodarone HCl (Cordarone) 200 mg DAILY ORAL 05/28/18 09:00 06/27/18 08:59 05/30/18 08:44 Amlodipine Besylate (Norvasc) 2.5 mg DAILY ORAL 05/28/18 14:00 06/27/18 08:59 05/30/18 08:45 Cefepime HCl 1 gm/ Dextrose 55 ml @ 110 mls/hr Q24H IV 05/28/18 09:00 06/04/18 08:59 05/30/18 08:44 Dextrose 1,000 ml @ 50 mls/hr Q20H IV 05/30/18 09:30 06/29/18 09:29 05/30/18 09:42 Heparin Sodium (Porcine) (Heparin 5000 units/ml) 5,000 units EVERY 12 HOURS SUBQ 05/28/18 09:00 06/27/18 08:59 05/30/18 08:46 Nitroglycerin (Ntg) 0.4 mg Q5M PRN SL Prn Chest Pain 05/28/18 07:30 06/27/18 07:29 Ondansetron HCl (Zofran) 4 mg Q6H PRN IVP Nausea & Vomiting 05/28/18 07:30 06/27/18 07:29 Polyethylene Glycol (Miralax) 17 gm DAILYPRN PRN ORAL Constipation 05/28/18 07:30 06/27/18 07:29 Temazepam (Restoril) 15 mg HSPRN PRN ORAL Insomnia 05/28/18 07:30 06/04/18 07:29 Vancomycin HCl (Vanco rx to dose) 1 ea DAILY PRN MISC Per rx protocol 05/28/18 07:30 06/27/18 07:29 Vancomycin HCl 500 mg/Dextrose 110 ml @ 110 mls/hr Q24H IVPB 05/29/18 01:00 06/03/18 00:59 05/30/18 00:45 Yuliet Mariee MD May 30, 2018 10:37
--- NOTE | 2018-05-30 10:47 | Diagnostic Imaging Report ---
Indication: Shortness of breath Technique: One view of the chest Comparison: 05/28/2018 Findings: Interim marked increased opacification of the right hemithorax, now near complete, with only a small amount of residual aerated lung in the right upper lobe. The trachea is deviated to the right, indicating significant component of atelectasis The left lung and pleural space remain clear. The heart remains enlarged. Impression: Interim near-complete opacification of the right hemithorax, likely reflecting enlarging massive pleural effusion, progressive pulmonary atelectasis, or most likely combination of both. Patient's nurse notified at the time of interpretation with instructions to inform ordering physician
--- NOTE | 2018-05-30 11:31 | NUR ---
ST NOTE: BEDSIDE SWALLOW EVAL RECEIVED BEDSIDE SWALLOW EVAL ORDER CHART REVIEWED PRIOR THE EVALUATION PT IS A 87-YEAR-OLD FARSI-SPEAKING FEMALE WHO WAS ADMITTED DUE TO DYSPNEA. DYSPHAGIA RISK FACTORS: ASPIRATION PNA, RESPIRATORY DISTRESS, CARDIAC DISORDER(A-FIB), EARLY DEMENTIA, HTN, H/O DYSPHAGIA, COPD, DEPRESSIVE DISORDER, SECOND HAND TOBACCO PER CXR: Interim near-complete opacification of the right hemithorax, likely reflecting enlarging massive pleural effusion, progressive pulmonary atelectasis, or most likely combination of both. Patient's nurse notified at the time of interpretation with instructions to inform ordering physician PLOF: PT RESIDES AT SNF. PER CHART, PT WAS ON CADE REGULAR WITH THIN LIQUID DIET. NO POLST WAS NOTED IN THE CHART. CURRENTLY, PT IS FULL CODE. PER VIDEOSWALLOW STUDY ON 01/24/2016 MILD OROPHARYNGEAL DYSPHAGIA. NO ASPIRATION WAS NOTED BUT HAS RISK. DIET WAS RECOMMENDED REGULAR WITH THIN LIQUIDS. CURRENT STATUS: PT SEEN AT BEDSIDE IN AM. ALERT, BUT CONFUSED. DID NOT FOLLOW DIRECTIONS. VOICE IS CLEAR. WITH NC(4L). INCONSISTENT COUGHING WAS PER NURSING NOTE, PT HAS BEEN REFUSING ALL MEALS. NOTED WITHOUT TAKING PO. RNGOLDIE, IS AT BEDSIDE. ATTEMPTED TO GIVE PO, HOWEVER, PT REFUSED EVEN GIVEN MAX ENCOURAGEMENT. PROBABLE PERSISTENT MILD OR WORSENED OROPHARYNGEAL DYSPHAGIA PER RN, PT WAS ABLE TO TAKE CRUSHED MED WITH APPLE SAUCE AND SOME THICKENED LIQUIDS WITHOUT OVERT S/S OF ASPIRATION. DUE TO PT HAS H/O COPD, CURRENT PNA, PT HAS HIGH RISK FOR ASPIRATION. RECOMMENDATIONS: 1. FOR QUALITY OF LIFE, CONTINUE LOW SODIUM PUREE WITH NECTAR THICK LIQUIDS DIET 2. STRICT ASPIRATION/REFLUX PRECAUTIONS WITH 1TO1 FEEDING 3. VIDEOSWALLOW STUDY ONLY IF PT IS WILLING TO PARTICIPATE. D/W GOLDIE JI. AND D/W , DR. HERNANDEZ, PER , APPROVED THE VIDEOSWALLOW STUDY. POSTED ASPIRATION/REFLUX PRECAUTIONS SIGN.
[2018-05-30 12:00] VITALS: BP 153/76
--- NOTE | 2018-05-30 13:42 | NUR ---
NURSE NOTES: Informed Dr. Mariee about the latest chest xray results. No new order. Addendum: 05/30/18 at 1349 by Nereida Renteria RN NURSE NOTES: Received orders from Dr. Mariee and carried out.
[2018-05-30] MEDS: Albuterol/Ipratropium 3ml neb HHN SCH ×2 (14:49→19:06)
[2018-05-30 16:00] VITALS: BP 141/62
--- NOTE | 2018-05-30 16:50 | NUR ---
RESPIRATORY NOTE: Put Patient on BIPAP due to critical valued ABG, notified Nereida RN. Current setting 18/12 60% backup rate:16. tape intact and with facial mask.
--- NOTE | 2018-05-30 17:39 | NUR ---
NURSE NOTES: Informed Dr. Mariee the latest ABG results and that patient is now on bipap. No new order.
--- NOTE | 2018-05-30 19:05 | NUR ---
HAND-OFF: Report given to Molly. JI.
--- NOTE | 2018-05-30 19:06 | NUR ---
NURSE NOTES: Bedside report received from MARGY Padron. Pt is Uzbek speaking, according to Dr. Martinez confused, trying to get out of bed, freedom splints ON. Vital signs stable, son at bedside. Pt is on BIPAP d/t critical ABG result. Settings are 18/8 @ 100%. Skin is clean and dry, dressings intact. SPR mattress for sacral redness. Patient was turned. L/R hand IV; asymptomatic running NS @ 50. Bed is locked in lowest position, sr x3, bed alarm on, call michaels within reach. Will continue to monitor and follow plan of care.
[2018-05-30 20:00] VITALS: BP 133/61
--- NOTE | 2018-05-30 20:05 | Cardiology Progress Note ---
Assessment/Plan Assessment/Plan [id number] Objective Last 24 Hour Vital Signs Date Time Temp Pulse Resp B/P (MAP) Pulse Ox O2 Delivery O2 Flow Rate FiO2 05/30/18 19:13 97 22 97 Bi-pap 80 05/30/18 19:09 96 23 97 Facial 80 05/30/18 19:06 96 23 97 Bi-pap 80 05/30/18 17:00 Bi-pap 05/30/18 16:00 99.5 99 22 141/62 (88) 96 05/30/18 16:00 Nasal Cannula 4.0 05/30/18 15:38 102 05/30/18 15:00 99 22 98 Bi-pap 4.0 36 05/30/18 14:49 100 22 94 Nasal Cannula 4.0 36 05/30/18 12:00 99.0 99 22 153/76 (101) 94 05/30/18 12:00 Nasal Cannula 4.0 05/30/18 11:54 98 05/30/18 08:45 107 147/65 05/30/18 08:00 Nasal Cannula 4.0 05/30/18 08:00 98.8 107 22 147/65 (92) 96 05/30/18 07:34 106 05/30/18 04:00 Nasal Cannula 2.0 05/30/18 04:00 101 05/30/18 04:00 98.7 101 22 160/72 (101) 98 05/30/18 00:00 Nasal Cannula 2.0 05/30/18 00:00 98.8 94 24 146/73 (97) 98 05/30/18 00:00 101 Intake and Output 05/29/18 05/30/18 18:59 06:59 Intake Total 910.0 ml 110 ml Output Total 300 ml 700 ml Balance 610.0 ml -590 ml Intake Oral 200 ml 60 ml IV Total 710.0 ml 50 ml Output Urine Total 300 ml 700 ml Laboratory Tests Test 05/30/18 05:50 05/30/18 16:43 White Blood Count 8.2 K/UL (4.8-10.8) Red Blood Count 5.12 M/UL (4.20-5.40) Hemoglobin 10.9 G/DL (12.0-16.0) L Hematocrit 37.0 % (37.0-47.0) Mean Corpuscular Volume 72 FL (80-99) L Mean Corpuscular Hemoglobin 21.2 PG (27.0-31.0) L Mean Corpuscular Hemoglobin Concent 29.3 G/DL (32.0-36.0) L Red Cell Distribution Width 16.1 % (11.6-14.8) H Platelet Count 197 K/UL (150-450) Mean Platelet Volume 7.8 FL (6.5-10.1) Neutrophils (%) (Auto) % (45.0-75.0) Lymphocytes (%) (Auto) % (20.0-45.0) Monocytes (%) (Auto) % (1.0-10.0) Eosinophils (%) (Auto) % (0.0-3.0) Basophils (%) (Auto) % (0.0-2.0) Sodium Level 152 MMOL/L (136-145) H Potassium Level 4.0 MMOL/L (3.5-5.1) Chloride Level 113 MMOL/L (98-107) H Carbon Dioxide Level 32 MMOL/L (21-32) Anion Gap 7 mmol/L (5-15) Blood Urea Nitrogen 37 mg/dL (7-18) H Creatinine 1.1 MG/DL (0.55-1.30) Estimat Glomerular Filtration Rate mL/min (>60) Glucose Level 117 MG/DL (74-106) H Calcium Level 10.3 MG/DL (8.5-10.1) H Total Bilirubin 0.3 MG/DL (0.2-1.0) Aspartate Amino Transf (AST/SGOT) 12 U/L (15-37) L Alanine Aminotransferase (ALT/SGPT) 11 U/L (12-78) L Alkaline Phosphatase 68 U/L (46-116) Pro-B-Type Natriuretic Peptide 2558 pg/mL (0-125) H Total Protein 7.1 G/DL (6.4-8.2) Albumin 2.8 G/DL (3.4-5.0) L Globulin 4.3 g/dL Albumin/Globulin Ratio 0.7 (1.0-2.7) L Arterial Blood pH 7.256 (7.350-7.450) Arterial Blood Partial Pressure CO2 85.4 mmHg (35.0-45.0) *H Arterial Blood Partial Pressure O2 60.8 mmHg (75.0-100.0) L Arterial Blood HCO3 37.1 mmol/L (22.0-26.0) H Arterial Blood Oxygen Saturation 89.9 % (95-100) *L Arterial Blood Base Excess 7.6 (-2-2) H David Test Positive Microbiology Date/Time Source Procedure Growth Status 05/28/18 02:10 Blood Blood Culture - Preliminary Staphylococcus Sp Coag Neg Resulted 05/28/18 02:00 Blood Blood Culture - Preliminary Staphylococcus Sp Coag Neg Resulted 05/28/18 09:00 Nasal Nares Influenza Types A,B Antigen (JACY) - Final Complete 05/28/18 09:00 Sputum Gram Stain - Final Resulted 05/28/18 09:00 Sputum Culture - Preliminary Staphylococcus Aureus Usual Respiratory Kierra Resulted 05/28/18 04:17 Nasal Nares MRSA Culture - Final Staphylococcus Aureus - Mrsa Complete 05/28/18 02:05 Nasal Nares Influenza Types A,B Antigen (JACY) - Final Complete 05/28/18 04:17 Rectum - Final NO CARBAPENEM-RESISTANT ENTEROBACTERI... Complete 05/28/18 04:17 Rectum VRE Culture - Final NO VANCOMYCIN RESISTANT ENTEROCOCCUS ... Complete Geoffrey Sandhu MD May 30, 2018 20:04
[2018-05-31] VITALS: BP 133/61
[2018-05-31] MEDS: Vancomycin 500mg/D5W 110ml IVPB SCH ×4 (00:17→13:48)
[2018-05-31] MEDS: Albuterol/Ipratropium 3ml neb HHN SCH ×4 (00:38→20:29)
--- NOTE | 2018-05-31 03:15 | Consultation ---
DATE OF CONSULTATION: 05/30/2018 CARDIOLOGY CONSULTATION CONSULTING PHYSICIAN: Geoffrey Sandhu M.D. REFERRING PHYSICIANS: 1. Yuliet Mariee M.D. 2. Cruz Valderrama M.D. REASON FOR REFERRAL: Atrial fibrillation history and coronary artery disease. HISTORY OF PRESENT ILLNESS: This is an elderly female who is really not able to provide any meaningful history whatsoever. The information is obtained from the patient's chart here at [facility] as well as from [facility]. The patient has been admitted to the hospital on 05/28/2018. The emergency room data indicated the patient is in a convalescent facility, was transferred because of shortness of breath due to comorbidities including congestive heart failure, atrial fibrillation, COPD, and she is not able to provide any meaningful history whatsoever. She was seen and evaluated in the emergency room COPD exacerbation and pleural effusion, and subsequently admitted to the hospital and part of the workup included a natriuretic peptide, which was abnormal. Therefore, this consultation was requested. The patient is not able to provide any meaningful history at this time. She is on a BiPAP at the present time. PAST MEDICAL HISTORY: Positive for history of atrial fibrillation, asthma, and coronary artery disease. There are details of which are unknown. She has history of constipation, COPD, depression, degenerative joint disease, gastroesophageal reflux disease, arthritis, hypertension as well as MRSA infection, and history of joint replacement of bilateral hips. SOCIAL HISTORY: No smoking or alcohol. No drug use. She is a resident of convalescent facility, she is . REVIEW OF SYSTEMS: Unable to obtain. PHYSICAL EXAMINATION: GENERAL: Shows to be elderly female, on a BiPAP therapy, noncommunicative or responsive. NECK: Supple. No jugular venous distention. LUNGS: Appear to be anteriorly clear to auscultation and percussion. CARDIAC: Regular rate and rhythm. No heaves, thrills, or gallops noted. ABDOMEN: Soft and nontender. Positive bowel sounds. EXTREMITIES: There is no edema. NEUROLOGICAL: She is not really communicating or responsive. LABORATORY AND DIAGNOSTIC DATA: Sodium was 144 before, it is up to 152 at this time, potassium 4.0, chloride 113, bicarb 32, BUN of 37, creatinine of 1.1, and glucose of 117. Calcium is 10.3. Liver function tests are normal except for an albumin of 2.8. ProBNP is 2500. White count 8.3, hemoglobin 10.9, and platelet count of 197,000. The pH of 7.25, pCO2 85, pO2 of 60, and bicarbonate of 37 and 90% saturation. INR is 1.1 and a PTT of 32. Her electrocardiogram at the time of her evaluation shows normal sinus rhythm, leftward axis, delay in R-wave progression, otherwise no significant other abnormalities. An echocardiogram shows ejection fraction of 60%, technically difficult study and no significant valvular regurgitation. Mitral valve area of 1.5, suggestive of mild mitral stenosis and pulmonary systolic pressure of 44. Chest x-ray performed in the emergency room subsequently shows complete opacification of right hemithorax, likely secondary to pleural effusion and this x-ray was personally reviewed. ASSESSMENT AND PLAN: Right-sided white-out with leftward shift, suggests maybe that there is atelectasis or collapse of the right lung pulmonary medicine. The patient has had an echocardiogram showed normal resting systolic function with an element of mitral stenosis, appears not to be severe. Her cardiac enzymes are negative. Her proBNP is not significantly elevated, considering that she does have an element of renal insufficiency that proBNP is not significant. EKG shows sinus rhythm. Telemetry shows sinus rhythm. She should be continued on amiodarone for the time being at 100 mg daily. She will require an ultrasound or possibly even a chest PT to help if there is no fluid in the chest cavity on the right side. I will follow the patient along with you. Geoffrey Sandhu M.D. DR: JIMBO JOB#: [id number] CC:
[2018-05-31 04:00] VITALS: BP 160/70
[2018-05-31 04:48] LABS: BASOPHILS % (AUTO) 0.5 % (0.0-2.0); EOSINOPHILS % (AUTO) 1.5 % (0.0-3.0); HEMATOCRIT 34.4 % (37.0-47.0); HEMOGLOBIN 10.2 G/DL (12.0-16.0); LYMPHOCYTES % (AUTO) 15.2 % (20.0-45.0); MEAN CORPUSCULAR VOLUME 72 FL (80-99); MONOCYTES % (AUTO) 7.4 % (1.0-10.0); NEUTROPHILS % (AUTO) 75.3 % (45.0-75.0); PLATELET COUNT 191 K/UL (150-450); RED BLOOD COUNT 4.78 M/UL (4.20-5.40); RED CELL DISTRIBUTION WIDTH 15.7 % (11.6-14.8); WHITE BLOOD COUNT 7.6 K/UL (4.8-10.8)
[2018-05-31 05:16] LABS: ALANINE AMINOTRANSFERASE 12 U/L (12-78); ALBUMIN 2.6 G/DL (3.4-5.0); ALBUMIN/GLOBULIN RATIO 0.6 (1.0-2.7); ALKALINE PHOSPHATASE 63 U/L (46-116); ANION GAP 6 mmol/L (5-15); ASPARTATE AMINO TRANSFERASE 10 U/L (15-37); BILIRUBIN,TOTAL 0.3 MG/DL (0.2-1.0); BLOOD UREA NITROGEN 38 mg/dL (7-18); CALCIUM 9.9 MG/DL (8.5-10.1); CARBON DIOXIDE 34 MMOL/L (21-32); CHLORIDE 112 MMOL/L (98-107); CREATININE 1.1 MG/DL (0.55-1.30); POTASSIUM 3.5 MMOL/L (3.5-5.1); SODIUM 152 MMOL/L (136-145)
--- NOTE | 2018-05-31 07:11 | NUR ---
HAND-OFF: Report given to MARGY CESAR. VSS, NO S/S OF DISTRESS.
--- NOTE | 2018-05-31 07:12 | NUR ---
NURSE NOTES: RECEIVED PATIENT FROM Kyle MCCLELLAND RN. PATIENT IS CONFUSED, TRIED GETTING OUT OF THE BED. 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 ON BIPAP SATING AT 95. NO SIGNS OF DISTRESS OF THE MOMENT. IVS ON L FA G24 AND IV R H G24. CALL LIGHT WITHIN REACH. BED AT LOWEST POSITION. SIDE RAILS UP. WILL CONTINUE TO MONITOR.
--- NOTE | 2018-05-31 07:27 | NUR ---
RESPIRATORY NOTE: received pt on bipap on current orders. foam tape in place. no redness visible. breathing tx taken off early due to increase in HR. bipap plugged into redoutlet. will cont to monitor.
[2018-05-31 08:00] VITALS: BP 143/85
--- NOTE | 2018-05-31 08:57 | Infectious Diseases Prog Note ---
Assessment/Plan Assessment/Plan 87 yo feamle with PMHx of COPD, HTN, and A.fib sent to the ED from her nuring home for SOB. Sepsis - Likely PNA 05/28/18 CXR with atalectasis vs consolidation in the right side. UA (-) Sputum Cx 05/28/18 - Staph a. and NF ( [facility]) (Inf Neg) Positive blood Cx - Likely contaminant BCx 05/28/18 - CoNS Will repeat Leukocytosis 15 on admit - now resolved Febrile to 101.5 - now resolved COPD CAD A. fib PLAN - Continue Cefepime #4/-10 and vancomycin #4/-10 On D/C would switch to levofloxacin 500mg PO to finish the course - f/u Urine Strep ag, Legionella - Monitor CBC and Temps We will continue to follow Ms. Nowak during this hospitalization. Subjective Allergies: Coded Allergies: Mushroom (Verified Allergy, Severe, 05/28/18) MORPHINE (Unverified Allergy, Intermediate, Itching, 01/04/15) PENICILLINS (Unverified Allergy, Intermediate, Hives, 01/04/15) CELECOXIB (Verified Allergy, Mild, 01/15/09) Subjective Increased O2 requirements On BiPAP Afebrile No Leukocytosis Objective Vital Signs Last 24 Hour Vital Signs Date Time Temp Pulse Resp B/P (MAP) Pulse Ox O2 Delivery O2 Flow Rate FiO2 05/31/18 07:28 141 43 93 Bi-pap 80 05/31/18 07:18 100 42 93 Facial 80 05/31/18 07:17 105 36 93 Bi-pap 80 05/31/18 04:44 90 25 95 Facial 80 05/31/18 04:00 Bi-pap 05/31/18 04:00 93 05/31/18 04:00 98.2 96 28 160/70 (100) 94 05/31/18 03:02 92 24 94 Facial 80 05/31/18 00:45 92 19 97 Bi-pap 60 05/31/18 00:38 94 20 97 Bi-pap 60 05/31/18 00:34 91 19 97 Facial 60 05/31/18 00:00 Bi-pap 05/31/18 00:00 88 05/31/18 00:00 98.2 95 28 133/61 (85) 98 05/30/18 22:36 88 20 100 Facial 60 05/30/18 21:43 84 17 100 Facial 80 05/30/18 20:00 Bi-pap 05/30/18 20:00 98.2 95 28 133/61 (85) 98 05/30/18 20:00 94 05/30/18 19:13 97 22 97 Bi-pap 80 05/30/18 19:09 96 23 97 Facial 80 05/30/18 19:06 96 23 97 Bi-pap 80 05/30/18 17:00 Bi-pap 05/30/18 16:00 99.5 99 22 141/62 (88) 96 05/30/18 16:00 Nasal Cannula 4.0 05/30/18 15:38 102 05/30/18 15:00 99 22 98 Bi-pap 4.0 36 05/30/18 14:49 100 22 94 Nasal Cannula 4.0 36 05/30/18 12:00 99.0 99 22 153/76 (101) 94 05/30/18 12:00 Nasal Cannula 4.0 05/30/18 11:54 98 Height (Feet): 5 Height (Inches): 4.00 Weight (Pounds): 122 Objective General: cachetic, On BiPAP HEENT: normocephalic, atraumatic, DMM, EOMI Respiratory/Chest: Mild crakles B/L Cardiovascular/Chest: RRR, S1, S2 Abdomen: Soft, NT, ND, + BS Microbiology Date/Time Source Procedure Growth Status 05/28/18 09:00 Nasal Nares Influenza Types A,B Antigen (JACY) - Final Complete 05/28/18 09:00 Sputum Gram Stain - Final Complete 05/28/18 09:00 Sputum Culture - Final Staphylococcus Aureus - Mrsa Usual Respiratory Kierra Complete Laboratory Tests Test 05/30/18 16:43 05/31/18 00:20 05/31/18 03:40 Arterial Blood pH 7.256 (7.350-7.450) Arterial Blood Partial Pressure CO2 85.4 mmHg (35.0-45.0) *H Arterial Blood Partial Pressure O2 60.8 mmHg (75.0-100.0) L Arterial Blood HCO3 37.1 mmol/L (22.0-26.0) H Arterial Blood Oxygen Saturation 89.9 % (95-100) *L Arterial Blood Base Excess 7.6 (-2-2) H David Test Positive Vancomycin Level Trough 4.7 ug/mL (5.0-12.0) L White Blood Count 7.6 K/UL (4.8-10.8) Red Blood Count 4.78 M/UL (4.20-5.40) Hemoglobin 10.2 G/DL (12.0-16.0) L Hematocrit 34.4 % (37.0-47.0) L Mean Corpuscular Volume 72 FL (80-99) L Mean Corpuscular Hemoglobin 21.4 PG (27.0-31.0) L Mean Corpuscular Hemoglobin Concent 29.8 G/DL (32.0-36.0) L Red Cell Distribution Width 15.7 % (11.6-14.8) H Platelet Count 191 K/UL (150-450) Mean Platelet Volume 7.9 FL (6.5-10.1) Neutrophils (%) (Auto) 75.3 % (45.0-75.0) H Lymphocytes (%) (Auto) 15.2 % (20.0-45.0) L Monocytes (%) (Auto) 7.4 % (1.0-10.0) Eosinophils (%) (Auto) 1.5 % (0.0-3.0) Basophils (%) (Auto) 0.5 % (0.0-2.0) Sodium Level 152 MMOL/L (136-145) H Potassium Level 3.5 MMOL/L (3.5-5.1) Chloride Level 112 MMOL/L (98-107) H Carbon Dioxide Level 34 MMOL/L (21-32) H Anion Gap 6 mmol/L (5-15) Blood Urea Nitrogen 38 mg/dL (7-18) H Creatinine 1.1 MG/DL (0.55-1.30) Estimat Glomerular Filtration Rate mL/min (>60) Glucose Level 145 MG/DL (74-106) H Calcium Level 9.9 MG/DL (8.5-10.1) Total Bilirubin 0.3 MG/DL (0.2-1.0) Aspartate Amino Transf (AST/SGOT) 10 U/L (15-37) L Alanine Aminotransferase (ALT/SGPT) 12 U/L (12-78) Alkaline Phosphatase 63 U/L (46-116) Pro-B-Type Natriuretic Peptide 2996 pg/mL (0-125) H Total Protein 6.7 G/DL (6.4-8.2) Albumin 2.6 G/DL (3.4-5.0) L Globulin 4.1 g/dL Albumin/Globulin Ratio 0.6 (1.0-2.7) L Current Medications Medications (Trade) Dose Ordered Sig/Ann Route PRN Reason Start Time Stop Time Status Last Admin Dose Admin Acetaminophen (Tylenol) 650 mg Q4H PRN ORAL fever 05/28/18 07:30 06/27/18 07:29 05/29/18 06:40 Al Hydroxide/Mg Hydroxide (Mylanta II) 30 ml Q6H PRN ORAL dyspepsia 05/28/18 07:30 06/27/18 07:29 Albuterol/ Ipratropium (Albuterol/ Ipratropium) 3 ml Q4H PRN HHN Shortness of Breath 05/28/18 07:30 06/02/18 07:29 Albuterol/ Ipratropium (Albuterol/ Ipratropium) 3 ml Q6HRT HHN 05/30/18 13:00 06/04/18 12:59 05/31/18 07:18 Amiodarone HCl (Cordarone) 100 mg DAILY ORAL 05/31/18 09:00 06/30/18 08:59 Amlodipine Besylate (Norvasc) 2.5 mg DAILY ORAL 05/28/18 14:00 06/27/18 08:59 05/30/18 08:45 Cefepime HCl 1 gm/ Dextrose 55 ml @ 110 mls/hr Q24H IV 05/28/18 09:00 06/04/18 08:59 05/30/18 08:44 Dextrose 1,000 ml @ 50 mls/hr Q20H IV 05/30/18 09:30 06/29/18 09:29 05/31/18 05:39 Heparin Sodium (Porcine) (Heparin 5000 units/ml) 5,000 units EVERY 12 HOURS SUBQ 05/28/18 09:00 06/27/18 08:59 05/30/18 20:06 Nitroglycerin (Ntg) 0.4 mg Q5M PRN SL Prn Chest Pain 05/28/18 07:30 06/27/18 07:29 Ondansetron HCl (Zofran) 4 mg Q6H PRN IVP Nausea & Vomiting 05/28/18 07:30 06/27/18 07:29 Polyethylene Glycol (Miralax) 17 gm DAILYPRN PRN ORAL Constipation 05/28/18 07:30 06/27/18 07:29 Quetiapine Fumarate (SEROquel) 12.5 mg BID ORAL 05/30/18 18:00 06/29/18 17:59 Quetiapine Fumarate (SEROquel) 25 mg Q6H PRN ORAL For Anxiety 05/30/18 12:30 06/29/18 12:29 Temazepam (Restoril) 15 mg HSPRN PRN ORAL Insomnia 05/28/18 07:30 06/04/18 07:29 Vancomycin HCl (Vanco rx to dose) 1 ea DAILY PRN MISC Per rx protocol 05/28/18 07:30 06/27/18 07:29 Vancomycin HCl 500 mg/Dextrose 110 ml @ 110 mls/hr Q12H IVPB 05/31/18 13:00 06/03/18 00:59 Clint Harris MD May 31, 2018 08:57
--- NOTE | 2018-05-31 10:07 | NUR ---
ST NOTE: SWALLOW STATUS CURRENTLY, PT IS ON BIPAP DUE TO CO2 IS HIGH. UNABLE TO COMPLETE VIDEOSWALLOW STUDY AT THIS TIME. HOLD PO FOR NOW. POSTED NPO SIGN. D/W RN, JOHN.
[2018-05-31] MEDS: Cefepime HCl 1 GM in D5W 55 ML IV SCH (10:08)
[2018-05-31] MEDS: Amiodarone 200mg tab ORAL SCH (10:13)
[2018-05-31] MEDS: Heparin 5000 units/ml inj SUBQ SCH ×2 (10:16→20:23)
--- NOTE | 2018-05-31 11:00 | NUR ---
NURSE NOTES: DAUGHTER NOTED AT THE BEDSIDE. ORAL CARE PROVIDED. TOLERATING BIPAP. NOT IN DISTRESS. WILL CONTINUE TO MONITOR.
--- NOTE | 2018-05-31 11:26 | NUR ---
RD ASSESSMENT & RECOMMENDATIONS SEE CARE ACTIVITY FOR COMPLETE ASSESSMENT DAILY ESTIMATED NEEDS: Needs based on Pulmonary, wound/ 55kg 25-30 kcals/kg 5671-6525 total kcals 1.25-1.5 g protein/kg 69-83 g total protein 25-30 mL/kg 5542-9821 total fluid mLs NUTRITION DIAGNOSIS: * Swallowing difficulty R/T dysphagia, respiratory status as evidenced by pt on BIPAP, [employer] INFORMATION CLERK recommends to hold PO at this time. * Increased kcal/prot needs R/T wound healing as evidenced by pt admitted w/ sacral wound per photo, pending eval. CURRENT DIET:NPO PO DIET RECOMMENDATIONS: IF SAFE FOR PO-> Liberalized REGULAR/ texture per [employer] INFORMATION CLERK ENTERAL NUTRITION RECOMMENDATIONS: CONSULT RD FOR TF REC IF INDICATED AND PART OF POC ADDITIONAL RECOMMENDATIONS: * CALIBRATED bedscale wt for accurate CBW- w/ added SPR mattress + striker pump, and SCD's. * Monitor NPO status, ability for PO * Wound healing: Add MVI x 1, Vit C 500mg QD, Johann 1pkt BID : F/up w/ WC eval for sacral wound
--- NOTE | 2018-05-31 11:35 | NUR ---
RADIOLOGY DEPT CHEST X-RAY DONE.-P.DYE
--- NOTE | 2018-05-31 11:54 | Pulmonology Progress Note ---
Assessment/Plan Problems: (1) Acute respiratory failure (2) Aspiration pneumonia (3) Acute encephalopathy (4) CAD (coronary artery disease) (5) Afib (6) COPD (chronic obstructive pulmonary disease) Assessment/Plan right lung collapsed yesterday, pt was started on bipap, CXR today showing partial opening of Right side. check sputum chest PT fever is lower continue abx titrate fio2 to sat of 92% dvt prophylaxis. check CXR in the morning Subjective ROS Limited/Unobtainable: No Constitutional: Reports: no symptoms HEENT: Repors: no symptoms Respiratory: Reports: no symptoms Allergies: Coded Allergies: Mushroom (Verified Allergy, Severe, 05/28/18) MORPHINE (Unverified Allergy, Intermediate, Itching, 01/04/15) PENICILLINS (Unverified Allergy, Intermediate, Hives, 01/04/15) CELECOXIB (Verified Allergy, Mild, 01/15/09) Objective Last 24 Hour Vital Signs Date Time Temp Pulse Resp B/P (MAP) Pulse Ox O2 Delivery O2 Flow Rate FiO2 05/31/18 10:13 100 143/85 05/31/18 09:30 100 16 98 Facial 75 05/31/18 08:00 97.9 120 31 143/85 (104) 95 05/31/18 08:00 Bi-pap 05/31/18 08:00 133 05/31/18 07:28 141 43 93 Bi-pap 80 05/31/18 07:18 100 42 93 Facial 80 05/31/18 07:17 105 36 93 Bi-pap 80 05/31/18 04:44 90 25 95 Facial 80 05/31/18 04:00 Bi-pap 05/31/18 04:00 93 05/31/18 04:00 98.2 96 28 160/70 (100) 94 05/31/18 03:02 92 24 94 Facial 80 05/31/18 00:45 92 19 97 Bi-pap 60 05/31/18 00:38 94 20 97 Bi-pap 60 05/31/18 00:34 91 19 97 Facial 60 05/31/18 00:00 Bi-pap 05/31/18 00:00 88 05/31/18 00:00 98.2 95 28 133/61 (85) 98 05/30/18 22:36 88 20 100 Facial 60 05/30/18 21:43 84 17 100 Facial 80 05/30/18 20:00 Bi-pap 05/30/18 20:00 98.2 95 28 133/61 (85) 98 05/30/18 20:00 94 05/30/18 19:13 97 22 97 Bi-pap 80 05/30/18 19:09 96 23 97 Facial 80 05/30/18 19:06 96 23 97 Bi-pap 80 05/30/18 17:00 Bi-pap 05/30/18 16:00 99.5 99 22 141/62 (88) 96 05/30/18 16:00 Nasal Cannula 4.0 05/30/18 15:38 102 05/30/18 15:00 99 22 98 Bi-pap 4.0 36 05/30/18 14:49 100 22 94 Nasal Cannula 4.0 36 05/30/18 12:00 99.0 99 22 153/76 (101) 94 05/30/18 12:00 Nasal Cannula 4.0 05/30/18 11:54 98 Intake and Output 05/30/18 05/31/18 19:00 07:00 Intake Total 580 ml 450 ml Output Total 1300 ml 400 ml Balance -720 ml 50 ml Intake Oral 60 ml IV Total 520 ml 450 ml Output Urine Total 1300 ml 400 ml Objective on BIPAP HEENT: normocephalic Respiratory/Chest: crackles/rales Abdomen: normal bowel sounds, soft, non tender Extremities: no cyanosis Skin: no rash Neurologic/Psychiatric: java sybase 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-XII grossly normal Laboratory Tests 05/30/18 16:43: Arterial Blood pH 7.256L, Arterial Blood Partial Pressure CO2 85.4*H, Arterial Blood Partial Pressure O2 60.8L, Arterial Blood HCO3 37.1H, Arterial Blood Oxygen Saturation 89.9*L, Arterial Blood Base Excess 7.6H, David Test Positive 05/31/18 00:20: Vancomycin Level Trough 4.7L 05/31/18 03:40: White Blood Count 7.6, Red Blood Count 4.78, Hemoglobin 10.2L, Hematocrit 34.4L , Mean Corpuscular Volume 72L, Mean Corpuscular Hemoglobin 21.4L, Mean Corpuscular Hemoglobin Concent 29.8L, Red Cell Distribution Width 15.7H, Platelet Count 191, Mean Platelet Volume 7.9, Neutrophils (%) (Auto) 75.3H, Lymphocytes (%) (Auto) 15.2L, Monocytes (%) (Auto) 7.4, Eosinophils (%) (Auto) 1.5, Basophils (%) (Auto) 0.5, Sodium Level 152H, Potassium Level 3.5, Chloride Level 112H, Carbon Dioxide Level 34H, Anion Gap 6, Blood Urea Nitrogen 38H, Creatinine 1.1, Estimat Glomerular Filtration Rate , Glucose Level 145H, Calcium Level 9.9, Total Bilirubin 0.3, Aspartate Amino Transf (AST/SGOT) 10L, Alanine Aminotransferase (ALT/SGPT) 12, Alkaline Phosphatase 63, Pro-B-Type Natriuretic Peptide 2996H, Total Protein 6.7, Albumin 2.6L, Globulin 4.1, Albumin/Globulin Ratio 0.6L Current Medications Medications (Trade) Dose Ordered Sig/Ann Route PRN Reason Start Time Stop Time Status Last Admin Dose Admin Acetaminophen (Tylenol) 650 mg Q4H PRN ORAL fever 05/28/18 07:30 06/27/18 07:29 05/29/18 06:40 Al Hydroxide/Mg Hydroxide (Mylanta II) 30 ml Q6H PRN ORAL dyspepsia 05/28/18 07:30 06/27/18 07:29 Albuterol/ Ipratropium (Albuterol/ Ipratropium) 3 ml Q4H PRN HHN Shortness of Breath 05/28/18 07:30 06/02/18 07:29 Albuterol/ Ipratropium (Albuterol/ Ipratropium) 3 ml Q6HRT HHN 05/30/18 13:00 06/04/18 12:59 05/31/18 07:18 Amiodarone HCl (Cordarone) 100 mg DAILY ORAL 05/31/18 09:00 06/30/18 08:59 05/31/18 10:13 Amlodipine Besylate (Norvasc) 2.5 mg DAILY ORAL 05/28/18 14:00 06/27/18 08:59 05/31/18 10:13 Cefepime HCl 1 gm/ Dextrose 55 ml @ 110 mls/hr Q24H IV 05/28/18 09:00 06/04/18 08:59 05/31/18 10:08 Dextrose 1,000 ml @ 50 mls/hr Q20H IV 05/30/18 09:30 06/29/18 09:29 05/31/18 05:39 Heparin Sodium (Porcine) (Heparin 5000 units/ml) 5,000 units EVERY 12 HOURS SUBQ 05/28/18 09:00 06/27/18 08:59 05/31/18 10:16 Nitroglycerin (Ntg) 0.4 mg Q5M PRN SL Prn Chest Pain 05/28/18 07:30 06/27/18 07:29 Ondansetron HCl (Zofran) 4 mg Q6H PRN IVP Nausea & Vomiting 05/28/18 07:30 06/27/18 07:29 Polyethylene Glycol (Miralax) 17 gm DAILYPRN PRN ORAL Constipation 05/28/18 07:30 06/27/18 07:29 Quetiapine Fumarate (SEROquel) 12.5 mg BID ORAL 05/30/18 18:00 06/29/18 17:59 05/31/18 10:13 Quetiapine Fumarate (SEROquel) 25 mg Q6H PRN ORAL For Anxiety 05/30/18 12:30 06/29/18 12:29 Temazepam (Restoril) 15 mg HSPRN PRN ORAL Insomnia 05/28/18 07:30 06/04/18 07:29 Vancomycin HCl (Vanco rx to dose) 1 ea DAILY PRN MISC Per rx protocol 05/28/18 07:30 06/27/18 07:29 Vancomycin HCl 500 mg/Dextrose 110 ml @ 110 mls/hr Q12H IVPB 05/31/18 13:00 06/03/18 00:59 Yuliet Mariee MD May 31, 2018 11:54
[2018-05-31 12:00] VITALS: BP 136/79
--- NOTE | 2018-05-31 12:01 | Diagnostic Imaging Report ---
Indication: Dyspnea Technique: One view of the chest Comparison: 05/30/2018 Findings: There is slightly improved aeration of the right upper lobe, although right hemithorax remains largely opacified. Left lung and pleural space remain clear. There is central bronchial wall thickening and calcification. The heart is markedly enlarged. Impression: Slightly improved aeration of the right lung which nonetheless remains largely opacified, may reflect slight improvement of atelectasis or pleural effusion on the right.
--- NOTE | 2018-05-31 12:05 | General Progress Note ---
Assessment/Plan Problem List: (1) encephalopathy due to toxin (2) Dementia ICD Codes: F03.90 - Unspecified dementia without behavioral disturbance SNOMED: [id number] Status: progressing Assessment/Plan seroquel 12.5mg po bid seroquel 25mg q 6hr prn cont restraints. Subjective Neurologic/Psychiatric: Reports: anxiety, depressed, emotional problems Allergies: Coded Allergies: Mushroom (Verified Allergy, Severe, 05/28/18) MORPHINE (Unverified Allergy, Intermediate, Itching, 01/04/15) PENICILLINS (Unverified Allergy, Intermediate, Hives, 01/04/15) CELECOXIB (Verified Allergy, Mild, 01/15/09) Objective Last 24 Hour Vital Signs Date Time Temp Pulse Resp B/P (MAP) Pulse Ox O2 Delivery O2 Flow Rate FiO2 05/31/18 10:13 100 143/85 05/31/18 09:30 100 16 98 Facial 75 05/31/18 08:00 97.9 120 31 143/85 (104) 95 05/31/18 08:00 Bi-pap 05/31/18 08:00 133 05/31/18 07:28 141 43 93 Bi-pap 80 05/31/18 07:18 100 42 93 Facial 80 05/31/18 07:17 105 36 93 Bi-pap 80 05/31/18 04:44 90 25 95 Facial 80 05/31/18 04:00 Bi-pap 05/31/18 04:00 93 05/31/18 04:00 98.2 96 28 160/70 (100) 94 05/31/18 03:02 92 24 94 Facial 80 05/31/18 00:45 92 19 97 Bi-pap 60 05/31/18 00:38 94 20 97 Bi-pap 60 05/31/18 00:34 91 19 97 Facial 60 05/31/18 00:00 Bi-pap 05/31/18 00:00 88 05/31/18 00:00 98.2 95 28 133/61 (85) 98 05/30/18 22:36 88 20 100 Facial 60 05/30/18 21:43 84 17 100 Facial 80 05/30/18 20:00 Bi-pap 05/30/18 20:00 98.2 95 28 133/61 (85) 98 05/30/18 20:00 94 05/30/18 19:13 97 22 97 Bi-pap 80 05/30/18 19:09 96 23 97 Facial 80 05/30/18 19:06 96 23 97 Bi-pap 80 05/30/18 17:00 Bi-pap 05/30/18 16:00 99.5 99 22 141/62 (88) 96 05/30/18 16:00 Nasal Cannula 4.0 05/30/18 15:38 102 05/30/18 15:00 99 22 98 Bi-pap 4.0 36 05/30/18 14:49 100 22 94 Nasal Cannula 4.0 36 Intake and Output 05/30/18 05/31/18 19:00 07:00 Intake Total 580 ml 450 ml Output Total 1300 ml 400 ml Balance -720 ml 50 ml Intake Oral 60 ml IV Total 520 ml 450 ml Output Urine Total 1300 ml 400 ml Laboratory Tests 05/30/18 16:43: Arterial Blood pH 7.256L, Arterial Blood Partial Pressure CO2 85.4*H, Arterial Blood Partial Pressure O2 60.8L, Arterial Blood HCO3 37.1H, Arterial Blood Oxygen Saturation 89.9*L, Arterial Blood Base Excess 7.6H, David Test Positive 05/31/18 00:20: Vancomycin Level Trough 4.7L 05/31/18 03:40: White Blood Count 7.6, Red Blood Count 4.78, Hemoglobin 10.2L, Hematocrit 34.4L , Mean Corpuscular Volume 72L, Mean Corpuscular Hemoglobin 21.4L, Mean Corpuscular Hemoglobin Concent 29.8L, Red Cell Distribution Width 15.7H, Platelet Count 191, Mean Platelet Volume 7.9, Neutrophils (%) (Auto) 75.3H, Lymphocytes (%) (Auto) 15.2L, Monocytes (%) (Auto) 7.4, Eosinophils (%) (Auto) 1.5, Basophils (%) (Auto) 0.5, Sodium Level 152H, Potassium Level 3.5, Chloride Level 112H, Carbon Dioxide Level 34H, Anion Gap 6, Blood Urea Nitrogen 38H, Creatinine 1.1, Estimat Glomerular Filtration Rate , Glucose Level 145H, Calcium Level 9.9, Total Bilirubin 0.3, Aspartate Amino Transf (AST/SGOT) 10L, Alanine Aminotransferase (ALT/SGPT) 12, Alkaline Phosphatase 63, Pro-B-Type Natriuretic Peptide 2996H, Total Protein 6.7, Albumin 2.6L, Globulin 4.1, Albumin/Globulin Ratio 0.6L Height (Feet): 5 Height (Inches): 4.00 Weight (Pounds): 122 General Appearance: alert, confused, agitated Liz Lo MD May 31, 2018 12:05
--- NOTE | 2018-05-31 13:17 | NUR ---
NURSE NOTES:WOUND CARE NOTES:Pt presents with maroon discoloration to sacrum and bilat gluteal clefts without induration(L)10cm x (W)11.5cm . Skin dryness noted at affected site. Pt did not exhibit pain or discomfort when area minimally palpated. Both heels are dry ,soft but blanchable.No other skin concerns noted. Tx.Plan:Apply Moisture Barrier Paste (Calazime/Triad Paste) to buttocks. Cover with Optifoam drsg. Change every 3 days and PRN. Air Fluidized mattress . Apply Cavilon Skin Barrier to both heels. Cover with Optifoam drsg.Off-load heels with pillow.
--- NOTE | 2018-05-31 14:50 | Cardiology Progress Note ---
Assessment/Plan Assessment/Plan COPD, congestive heart failure, atrial fibrillation sinus tachy agitation right lung collapse? cxr reviewed ekg reviewd d/w rt may need mroe free water hhn may be contributing to tachy chest pt dvt ppx all trop neg cr is normal is npo in onm low dose ivf is off diuretic as was dry at admission d/w rn Subjective Cardiovascular: Reports: chest pain Respiratory: Reports: shortness of breath Genitourinary: Denies: burning Objective Last 24 Hour Vital Signs Date Time Temp Pulse Resp B/P (MAP) Pulse Ox O2 Delivery O2 Flow Rate FiO2 05/31/18 13:34 99 28 97 Venturi Mask 14.0 55 05/31/18 13:27 95 29 97 Facial 70 05/31/18 13:26 96 28 94 Bi-pap 70 05/31/18 12:00 Bi-pap 05/31/18 12:00 103 05/31/18 12:00 98.3 100 28 136/79 (98) 97 05/31/18 10:50 100 24 97 Facial 70 05/31/18 10:13 100 143/85 05/31/18 09:30 100 16 98 Facial 75 05/31/18 08:00 97.9 120 31 143/85 (104) 95 05/31/18 08:00 Bi-pap 05/31/18 08:00 133 05/31/18 07:28 141 43 93 Bi-pap 80 05/31/18 07:18 100 42 93 Facial 80 05/31/18 07:17 105 36 93 Bi-pap 80 05/31/18 04:44 90 25 95 Facial 80 05/31/18 04:00 Bi-pap 05/31/18 04:00 93 05/31/18 04:00 98.2 96 28 160/70 (100) 94 05/31/18 03:02 92 24 94 Facial 80 05/31/18 00:45 92 19 97 Bi-pap 60 05/31/18 00:38 94 20 97 Bi-pap 60 05/31/18 00:34 91 19 97 Facial 60 05/31/18 00:00 Bi-pap 05/31/18 00:00 88 05/31/18 00:00 98.2 95 28 133/61 (85) 98 05/30/18 22:36 88 20 100 Facial 60 05/30/18 21:43 84 17 100 Facial 80 05/30/18 20:00 Bi-pap 05/30/18 20:00 98.2 95 28 133/61 (85) 98 05/30/18 20:00 94 05/30/18 19:13 97 22 97 Bi-pap 80 05/30/18 19:09 96 23 97 Facial 80 05/30/18 19:06 96 23 97 Bi-pap 80 05/30/18 17:00 Bi-pap 05/30/18 16:00 99.5 99 22 141/62 (88) 96 05/30/18 16:00 Nasal Cannula 4.0 05/30/18 15:38 102 05/30/18 15:00 99 22 98 Bi-pap 4.0 36 05/30/18 14:49 100 22 94 Nasal Cannula 4.0 36 General Appearance: no apparent distress, alert, moderate distress Neck: supple Cardiovascular: normal rate, tachycardia Respiratory/Chest: rhonchi - bilaterally Abdomen: normal bowel sounds, non tender, soft Extremities: trace edema Intake and Output 05/30/18 05/31/18 19:00 07:00 Intake Total 580 ml 450 ml Output Total 1300 ml 400 ml Balance -720 ml 50 ml Intake Oral 60 ml IV Total 520 ml 450 ml Output Urine Total 1300 ml 400 ml Laboratory Tests Test 05/30/18 16:43 05/31/18 00:20 05/31/18 03:40 Arterial Blood pH 7.256 (7.350-7.450) Arterial Blood Partial Pressure CO2 85.4 mmHg (35.0-45.0) *H Arterial Blood Partial Pressure O2 60.8 mmHg (75.0-100.0) L Arterial Blood HCO3 37.1 mmol/L (22.0-26.0) H Arterial Blood Oxygen Saturation 89.9 % (95-100) *L Arterial Blood Base Excess 7.6 (-2-2) H David Test Positive Vancomycin Level Trough 4.7 ug/mL (5.0-12.0) L White Blood Count 7.6 K/UL (4.8-10.8) Red Blood Count 4.78 M/UL (4.20-5.40) Hemoglobin 10.2 G/DL (12.0-16.0) L Hematocrit 34.4 % (37.0-47.0) L Mean Corpuscular Volume 72 FL (80-99) L Mean Corpuscular Hemoglobin 21.4 PG (27.0-31.0) L Mean Corpuscular Hemoglobin Concent 29.8 G/DL (32.0-36.0) L Red Cell Distribution Width 15.7 % (11.6-14.8) H Platelet Count 191 K/UL (150-450) Mean Platelet Volume 7.9 FL (6.5-10.1) Neutrophils (%) (Auto) 75.3 % (45.0-75.0) H Lymphocytes (%) (Auto) 15.2 % (20.0-45.0) L Monocytes (%) (Auto) 7.4 % (1.0-10.0) Eosinophils (%) (Auto) 1.5 % (0.0-3.0) Basophils (%) (Auto) 0.5 % (0.0-2.0) Sodium Level 152 MMOL/L (136-145) H Potassium Level 3.5 MMOL/L (3.5-5.1) Chloride Level 112 MMOL/L (98-107) H Carbon Dioxide Level 34 MMOL/L (21-32) H Anion Gap 6 mmol/L (5-15) Blood Urea Nitrogen 38 mg/dL (7-18) H Creatinine 1.1 MG/DL (0.55-1.30) Estimat Glomerular Filtration Rate mL/min (>60) Glucose Level 145 MG/DL (74-106) H Calcium Level 9.9 MG/DL (8.5-10.1) Total Bilirubin 0.3 MG/DL (0.2-1.0) Aspartate Amino Transf (AST/SGOT) 10 U/L (15-37) L Alanine Aminotransferase (ALT/SGPT) 12 U/L (12-78) Alkaline Phosphatase 63 U/L (46-116) Pro-B-Type Natriuretic Peptide 2996 pg/mL (0-125) H Total Protein 6.7 G/DL (6.4-8.2) Albumin 2.6 G/DL (3.4-5.0) L Globulin 4.1 g/dL Albumin/Globulin Ratio 0.6 (1.0-2.7) L Geoffrey Sandhu MD May 31, 2018 14:50
--- NOTE | 2018-05-31 15:38 | NUR ---
NURSE NOTES: SEEN AND EXAMINED BY DR BOLANOS, MADE AWARE OF THE SWELLING IN UPPER AND LOWER EXTREMITIES. NO NEW ORDER. DR HERNANDEZ MADE AWARE TOO. WILL CONTINUE TO MONITOR. PATIENT STILL ON RESTRAINTS. NOTED TO BE PULLING OBJECTS. WILL CONTINUE TO MONITOR.
--- NOTE | 2018-05-31 15:42 | NUR ---
NURSE NOTES: TOLERATING VENTI MASK AT 55%, 14L. SATING AT 95%. NO SIGNS OF DISTRESS. BUT STILL TRYING TO GET OUT OF THE BED. WILL CONTINUE TO MONITOR.
[2018-05-31 16:00] VITALS: BP 148/82
--- NOTE | 2018-05-31 16:37 | NUR ---
HAND-OFF: Report given to Naresh Euceda RN.
--- NOTE | 2018-05-31 16:37 | NUR ---
NURSE NOTES: Report received from MARGY Bennett. Patient noted lethargic, no s/sx of distress while on Venti mask at 55%. ST on monitor 100s. Repositioning done. No IV line at this time. Will reinsert. Placed bed on lowest position.
--- NOTE | 2018-05-31 18:00 | NUR ---
NURSE NOTES: Was able to insert IV line on left wrist gauge 20 but 10 minutes after I start IVF, IV line became occluded. Tried to reinsert but unable to insert IV. Informed charge nurse. Addendum: 05/31/18 at 1841 by Sofya Noland RN NURSE NOTES: Son at bedside and aware of the plan of care.
--- NOTE | 2018-05-31 19:27 | NUR ---
HAND-OFF: Report given to MARGY Duenas.
--- NOTE | 2018-05-31 19:28 | NUR ---
NURSE NOTES: Bedside report received from MARGY Shafer. Pt is Mongolian speaking, confused, trying to get out of bed, freedom splints ON. Vital signs stable, son at bedside. Pt is on Venturi 55%; sating @ 97%. Pt is now NPO, except meds. Skin is clean and dry, dressings intact. SPR mattress for sacral redness. Patient was turned. RW 24g; asymptomatic running D5 @ 50. Bed is locked in lowest position, sr x3, bed alarm on, call michaels within reach. Will continue to monitor and follow plan of care.
[2018-05-31 20:00] VITALS: BP 139/69
--- NOTE | 2018-05-31 20:48 | General Progress Note ---
Assessment/Plan Status: progressing Assessment/Plan This is an 87-year-old female admitted with chronic obstructive pulmonary disease exacerbation, right lower lobe infiltrate/pneumonia with altered mental status and acute kidney injury. The patient will be admitted to [facility] with the following medical problems. 1. Chronic obstructive pulmonary disease exacerbation and pneumonia. The patient has been seen by Pulmonary. Infectious Disease has been consulted, pancultured. IV antibiotics per ID. Continue with BiPAP and suction p.r.n. Transition to Venturi-mask when stable. 2. Acute kidney injury. We will monitor I's and O's, gentle intravenous fluids. Repeat a BMP in a.m. Consider Nephrology consult. 3. History of chronic atrial fibrillation. Continue with amiodarone. The patient is in sinus rhythm at this time. 4. History of hypertension. Continue with amlodipine and hold for systolic blood pressure less than 110. 5. Altered mental status, most likely from above conditions. We will keep n.p.o. except for medications and start IV fluids. 6. DVT prophylaxis with heparin subcutaneous and SCDs. 7. The patient is Full Code per policy. We will discuss with the family. Plan: -continue present care - freedom splint to keep patient from attempting to move out of bed - am chest xray - fu cultures and antibiotics per ID - pulmonary toiltet and HHN prn - possible video swallow study if more responsive - consider NGT for tube feeding - spot lasix as patient appears congested am labs discussed with son Subjective ROS Limited/Unobtainable: Yes Respiratory: Reports: SOB at rest Allergies: Coded Allergies: Mushroom (Verified Allergy, Severe, 05/28/18) MORPHINE (Unverified Allergy, Intermediate, Itching, 01/04/15) PENICILLINS (Unverified Allergy, Intermediate, Hives, 01/04/15) CELECOXIB (Verified Allergy, Mild, 01/15/09) All Systems: reviewed and negative except above Objective Last 24 Hour Vital Signs Date Time Temp Pulse Resp B/P (MAP) Pulse Ox O2 Delivery O2 Flow Rate FiO2 05/31/18 20:08 111 34 94 Venturi Mask 14.0 55 05/31/18 19:12 104 22 96 Venturi Mask 14.0 55 05/31/18 16:00 98.9 125 34 148/82 (104) 97 05/31/18 16:00 Venturi Mask 14.0 05/31/18 16:00 120 05/31/18 13:34 99 28 97 Venturi Mask 14.0 55 05/31/18 13:27 95 29 97 Facial 70 05/31/18 13:26 96 28 94 Bi-pap 70 05/31/18 12:00 Bi-pap 05/31/18 12:00 103 05/31/18 12:00 98.3 100 28 136/79 (98) 97 05/31/18 10:50 100 24 97 Facial 70 05/31/18 10:13 100 143/85 05/31/18 09:30 100 16 98 Facial 75 05/31/18 08:00 97.9 120 31 143/85 (104) 95 05/31/18 08:00 Bi-pap 05/31/18 08:00 133 05/31/18 07:28 141 43 93 Bi-pap 80 05/31/18 07:18 100 42 93 Facial 80 05/31/18 07:17 105 36 93 Bi-pap 80 05/31/18 04:44 90 25 95 Facial 80 05/31/18 04:00 Bi-pap 05/31/18 04:00 93 05/31/18 04:00 98.2 96 28 160/70 (100) 94 05/31/18 03:02 92 24 94 Facial 80 05/31/18 00:45 92 19 97 Bi-pap 60 05/31/18 00:38 94 20 97 Bi-pap 60 05/31/18 00:34 91 19 97 Facial 60 05/31/18 00:00 Bi-pap 05/31/18 00:00 88 05/31/18 00:00 98.2 95 28 133/61 (85) 98 05/30/18 22:36 88 20 100 Facial 60 05/30/18 21:43 84 17 100 Facial 80 Intake and Output 05/30/18 05/31/18 18:59 06:59 Intake Total 530 ml 500 ml Output Total 1300 ml 400 ml Balance -770 ml 100 ml Intake Oral 60 ml IV Total 470 ml 500 ml Output Urine Total 1300 ml 400 ml Laboratory Tests 05/31/18 00:20: Vancomycin Level Trough 4.7L 05/31/18 03:40: White Blood Count 7.6, Red Blood Count 4.78, Hemoglobin 10.2L, Hematocrit 34.4L , Mean Corpuscular Volume 72L, Mean Corpuscular Hemoglobin 21.4L, Mean Corpuscular Hemoglobin Concent 29.8L, Red Cell Distribution Width 15.7H, Platelet Count 191, Mean Platelet Volume 7.9, Neutrophils (%) (Auto) 75.3H, Lymphocytes (%) (Auto) 15.2L, Monocytes (%) (Auto) 7.4, Eosinophils (%) (Auto) 1.5, Basophils (%) (Auto) 0.5, Sodium Level 152H, Potassium Level 3.5, Chloride Level 112H, Carbon Dioxide Level 34H, Anion Gap 6, Blood Urea Nitrogen 38H, Creatinine 1.1, Estimat Glomerular Filtration Rate , Glucose Level 145H, Calcium Level 9.9, Total Bilirubin 0.3, Aspartate Amino Transf (AST/SGOT) 10L, Alanine Aminotransferase (ALT/SGPT) 12, Alkaline Phosphatase 63, Pro-B-Type Natriuretic Peptide 2996H, Total Protein 6.7, Albumin 2.6L, Globulin 4.1, Albumin/Globulin Ratio 0.6L Height (Feet): 5 Height (Inches): 4.00 Weight (Pounds): 122 General Appearance: no apparent distress, alert EENT: PERRL/EOMI, pharynx normal Neck: non-tender, supple Respiratory/Chest: decreased breath sounds, crackles/rales, expiratory wheezing Abdomen: non tender, soft, no mass Extremities: non-tender, normal inspection, no calf tenderness Edema: 1+ Arm (L), 1+ Arm (R), 1+ Leg (L), 1+ Leg (R), 1+ Pedal (L), 1+ Pedal ( R), 1+ Generalized Edema: trace edema Neurologic: advanced practice provider II-XII grossly normal Skin: warm/dry Lymphatic: normal anterior cervical (L), normal anterior cervical (R), normal posterior cervical (L), normal posterior cervical (R), normal submandibular (L) , normal submandibular (R), normal supraclavicular (L), normal supraclavicular ( R), normal axillary (L), normal axillary (R), normal inguinal (L), normal inguinal (R), normal other Cruz Valderrama MD May 31, 2018 20:48
[2018-06-01] VITALS: BP_SYST 117; BP_SYST 129; BP_DIAS 70; BP_DIAS 74
[2018-06-01] MEDS: Vancomycin 500mg/D5W 110ml IVPB SCH ×2 (00:05)
[2018-06-01] MEDS: Albuterol/Ipratropium 3ml neb HHN SCH ×5 (00:52→23:48)
[2018-06-01 04:00] VITALS: BP 157/78
[2018-06-01 05:43] LABS: BASOPHILS % (AUTO) 0.9 % (0.0-2.0); EOSINOPHILS % (AUTO) 2.5 % (0.0-3.0); HEMATOCRIT 33.5 % (37.0-47.0); LYMPHOCYTES % (AUTO) 19.7 % (20.0-45.0); MEAN CORPUSCULAR VOLUME 72 FL (80-99); MONOCYTES % (AUTO) 9.2 % (1.0-10.0); NEUTROPHILS % (AUTO) 67.7 % (45.0-75.0); PLATELET COUNT 187 K/UL (150-450); RED BLOOD COUNT 4.66 M/UL (4.20-5.40); RED CELL DISTRIBUTION WIDTH 15.3 % (11.6-14.8); WHITE BLOOD COUNT 6.4 K/UL (4.8-10.8)
[2018-06-01 06:37] LABS: ALANINE AMINOTRANSFERASE 12 U/L (12-78); ALBUMIN 2.5 G/DL (3.4-5.0); ALBUMIN/GLOBULIN RATIO 0.7 (1.0-2.7); ALKALINE PHOSPHATASE 57 U/L (46-116); ANION GAP 3 mmol/L (5-15); ASPARTATE AMINO TRANSFERASE 12 U/L (15-37); BILIRUBIN,TOTAL 0.4 MG/DL (0.2-1.0); BLOOD UREA NITROGEN 30 mg/dL (7-18); CALCIUM 9.6 MG/DL (8.5-10.1); CARBON DIOXIDE 38 MMOL/L (21-32); CHLORIDE 110 MMOL/L (98-107); POTASSIUM 3.1 MMOL/L (3.5-5.1); SODIUM 151 MMOL/L (136-145)
--- NOTE | 2018-06-01 07:16 | NUR ---
NURSE NOTES: CALLED DR. HERNANDEZ AND LEFT MESSAGE REGARDING AM LABS, POTASSIUM 3.1, SODIUM 151. INFORMED MD THAT THERE HAS BEEN NO BM DOCUMENTED SINCE ADMISSION, PRN PO MIRALAX, PT IS NPO. NO URINE OUTPUT ON FROM PM SHIFT, BLADDER SCAN DONE, 13 ML NOTED, NO BLADDER DISTENTION NOTED. NO ORDER AT THIS TIME, WILL CONTINUE TO MONITOR AND FOLLOW PLAN OF CARE. AWAITING A CALL BACK.
--- NOTE | 2018-06-01 07:16 | NUR ---
RESPIRATORY NOTE:Received pt on bipap on current orders. foam tape in place. no redness visible. bipap plugged into red outlet. Placed pt on venti mask 45% fio2 after breathing tx. will cont to monitor.
--- NOTE | 2018-06-01 07:19 | NUR ---
HAND-OFF: Report given to MARGY LOPEZ.
--- NOTE | 2018-06-01 07:20 | NUR ---
NURSE NOTES: RECEIVED PATIENT FROM Kyle MCCLELLAND RN. PATIENT IS AWAKE. TRYING GETTING OUT OF THE BED. HOOKED TO [employer]. ON BIPAP 18/12, FIO2 AT 40%. SATING AT 90-91%%. NO SIGNS OF DISTRESS OF THE MOMENT. KEPT ON NPO. IV ON R W G24, WITH IVF RUNNING AT 50CC/HR. . CALL LIGHT WITHIN REACH. BED AT LOWEST POSITION. SIDE RAILS UP. WILL CONTINUE TO MONITOR.
[2018-06-01 08:00] VITALS: BP 174/78
--- NOTE | 2018-06-01 08:47 | NUR ---
ST NOTE: SWALLOW STATUS FOLLOWED UP PT'S CONDITIONS. PT SEEN AT BEDSIDE, AWAKE, WITH VENTURI MASK(10L), RR: 38 TO 41. PT IS NOT STABLE TO GO DOWN FOR VIDEOSWALLOW STUDY AT THIS TIME AND NOT SAFE FOR PO INTAKE, RECOMMENDED TEMPORARILY NONORAL FEEDING MEANS TO MEET NUTRITION AND HYDRATION NEEDS. D/W RN, JOHN.
[2018-06-01] MEDS: Amiodarone 200mg tab ORAL SCH (08:58)
[2018-06-01] MEDS: Heparin 5000 units/ml inj SUBQ SCH ×2 (09:01→20:29)
--- NOTE | 2018-06-01 09:16 | NUR ---
RADIOLOGY DEPT CHEST X-RAY DONE-P.DYE
--- NOTE | 2018-06-01 09:17 | NUR ---
RADIOLOGY DEPT CHEST X-RAY DONE.-P.DYE
[2018-06-01] MEDS: Cefepime HCl 1 GM in D5W 55 ML IV SCH (09:58)
--- NOTE | 2018-06-01 10:53 | Pulmonolgy Critical Care Note ---
Critical Care - Asmt/Plan Problems: (1) Acute respiratory failure (2) Aspiration pneumonia (3) Acute encephalopathy (4) Pleural effusion (5) COPD (chronic obstructive pulmonary disease) (6) CAD (coronary artery disease) (7) Dementia Respiratory: monitor respiratory rate, adjust FIO2, CXR, weaning trial, other - might need intubation Cardiac: continue to monitor HR/BP Renal: F/U I&O, keep IV fluid, check electrolytes, other - dc lasix Infectious Disease: check cultures, continue antibiotics Gastrointestinal: hold feedings Endocrine: monitor blood sugar Hematologic: transfuse if hgb<8.5 Neurologic: PRN Ativan, PRN Morphine, keep patient comfortable Prophylaxis: Protonix Time Spent (Minutes): 40 Notes Reviewed: cardio, renal Discussed with: nurses, consultants, upper casertechnical sales manager - Objective Last 24 Hour Vital Signs Date Time Temp Pulse Resp B/P (MAP) Pulse Ox O2 Delivery O2 Flow Rate FiO2 06/01/18 08:58 112 174/78 06/01/18 08:00 97.9 112 38 174/78 (110) 91 06/01/18 07:16 85 23 98 Venturi Mask 10.0 45 06/01/18 07:16 85 23 96 06/01/18 07:05 88 22 98 Bi-pap 40 06/01/18 07:03 88 22 98 Facial 40 06/01/18 05:02 89 26 98 Facial 40 06/01/18 04:00 94 06/01/18 04:00 Bi-pap 06/01/18 04:00 98.7 83 21 157/78 (104) 98 06/01/18 03:01 90 22 99 Facial 55 06/01/18 01:05 89 19 100 Bi-pap 55 06/01/18 00:51 91 19 98 Bi-pap 55 06/01/18 00:49 91 19 97 Facial 55 06/01/18 00:00 Bi-pap 06/01/18 00:00 97.9 101 27 129/74 (92) 97 06/01/18 00:00 105 05/31/18 23:12 108 25 99 Facial 70 05/31/18 21:54 105 27 99 05/31/18 20:08 111 34 94 Venturi Mask 14.0 55 05/31/18 20:00 98.0 114 25 139/69 (92) 99 05/31/18 20:00 117 05/31/18 20:00 Venturi Mask 14.0 05/31/18 19:12 104 22 96 Venturi Mask 14.0 55 05/31/18 16:00 98.9 125 34 148/82 (104) 97 05/31/18 16:00 Venturi Mask 14.0 05/31/18 16:00 120 05/31/18 13:34 99 28 97 Venturi Mask 14.0 55 05/31/18 13:27 95 29 97 Facial 70 05/31/18 13:26 96 28 94 Bi-pap 70 05/31/18 12:00 Bi-pap 05/31/18 12:00 103 05/31/18 12:00 98.3 100 28 136/79 (98) 97 05/31/18 10:50 100 24 97 Facial 70 Status: awake Condition: critical HEENT: atraumatic Lungs: clear Heart: HR/BP unstable Abdomen: soft, active bowel sounds Extremities: edema Decubiti: stage Micro: Microbiology Date/Time Source Procedure Growth Status 05/30/18 09:55 Blood Blood Culture - Preliminary NO GROWTH AFTER 24 HOURS Resulted 05/30/18 09:45 Blood Blood Culture - Preliminary NO GROWTH AFTER 24 HOURS Resulted Critical Care - Subjective ROS Limited/Unobtainable: Yes Interval Events: still on BIPAP, saturating 88% awake, Condition: critical EKG Rhythm: Sinus Rhythm FI02: 45 Vent Support Mode: BiLevel Sputum Amount: None I&O: Intake and Output 05/31/18 06/01/18 19:00 07:00 Intake Total 920 ml 560 ml Output Total 400 ml 0 ml Balance 520 ml 560 ml IV Total 920 ml 560 ml Output Urine Total 400 ml 0 ml # Voids 1 CXR: right sided infiltrate, effusion, Labs: Laboratory Tests Test 06/01/18 03:45 06/01/18 08:09 White Blood Count 6.4 K/UL (4.8-10.8) Red Blood Count 4.66 M/UL (4.20-5.40) Hemoglobin 10.0 G/DL (12.0-16.0) L Hematocrit 33.5 % (37.0-47.0) L Mean Corpuscular Volume 72 FL (80-99) L Mean Corpuscular Hemoglobin 21.4 PG (27.0-31.0) L Mean Corpuscular Hemoglobin Concent 29.8 G/DL (32.0-36.0) L Red Cell Distribution Width 15.3 % (11.6-14.8) H Platelet Count 187 K/UL (150-450) Mean Platelet Volume 7.8 FL (6.5-10.1) Neutrophils (%) (Auto) 67.7 % (45.0-75.0) Lymphocytes (%) (Auto) 19.7 % (20.0-45.0) L Monocytes (%) (Auto) 9.2 % (1.0-10.0) Eosinophils (%) (Auto) 2.5 % (0.0-3.0) Basophils (%) (Auto) 0.9 % (0.0-2.0) Sodium Level 151 MMOL/L (136-145) H Potassium Level 3.1 MMOL/L (3.5-5.1) L Chloride Level 110 MMOL/L (98-107) H Carbon Dioxide Level 38 MMOL/L (21-32) H Anion Gap 3 mmol/L (5-15) L Blood Urea Nitrogen 30 mg/dL (7-18) H Creatinine 1.0 MG/DL (0.55-1.30) Estimat Glomerular Filtration Rate mL/min (>60) Glucose Level 124 MG/DL (74-106) H Calcium Level 9.6 MG/DL (8.5-10.1) Total Bilirubin 0.4 MG/DL (0.2-1.0) Aspartate Amino Transf (AST/SGOT) 12 U/L (15-37) L Alanine Aminotransferase (ALT/SGPT) 12 U/L (12-78) Alkaline Phosphatase 57 U/L (46-116) Pro-B-Type Natriuretic Peptide 2435 pg/mL (0-125) H Total Protein 6.3 G/DL (6.4-8.2) L Albumin 2.5 G/DL (3.4-5.0) L Globulin 3.8 g/dL Albumin/Globulin Ratio 0.7 (1.0-2.7) L Arterial Blood pH 7.358 (7.350-7.450) Arterial Blood Partial Pressure CO2 75.7 mmHg (35.0-45.0) *H Arterial Blood Partial Pressure O2 54.5 mmHg (75.0-100.0) L Arterial Blood HCO3 41.6 mmol/L (22.0-26.0) *H Arterial Blood Oxygen Saturation 88.2 % (95-100) *L Arterial Blood Base Excess 13.1 (-2-2) *H David Test Positive Yuliet Mariee MD Jun 01, 2018 10:53
--- NOTE | 2018-06-01 11:00 | NUR ---
NURSE NOTES: SEEN AND EXAMINED BY DR FARIAS. HE SPOKE WITH THE SON: SANTOS MARTINEZ THE TREATMENT. NO SIGNS OF DISTRESS. STILL AWAITING FOR THEIR DECISION FOR NGT INSERTION. WILL CONTINUE TO MONITOR.
--- NOTE | 2018-06-01 11:07 | NUR ---
RD ASSESSMENT & RECOMMENDATIONS SEE CARE ACTIVITY FOR COMPLETE ASSESSMENT DAILY ESTIMATED NEEDS: Needs based on Pulmonary/ 54kg 25-30 kcals/kg 2335-4099 total kcals 1-1.5 g protein/kg 54-81 g total protein 25-30 mL/kg 8814-1106 total fluid mLs NUTRITION DIAGNOSIS: * Swallowing difficulty R/T dysphagia, respiratory status as evidenced by pt on BIPAP-> now on venturi mask, not stable for VSS and not safe for PO at this time, recommends NPO, temporary nonoral feedings. CURRENT DIET:NPO PO DIET RECOMMENDATIONS: IF SAFE FOR PO-> Liberalized REGULAR/ texture per DIRECTOR OF THE BIOPHYSICS FACILITY ENTERAL NUTRITION RECOMMENDATIONS: Jevity 1.2 @ 55ml/hr x 24 hrs to provide 1320ml, 1584kcal, 73g prot, 1065ml free water * As medically appropriate and if part of POC, obtain GI access. * Initiate Jevity 1.2 @ 15ml/hr x 6 hrs, advance 10ml q 4-6 hrs as tolerated to goal rate. * HOB over 30 degrees/ water flush per MD. ADDITIONAL RECOMMENDATIONS: * CALIBRATED bedscale wt for accurate CBW- w/ added SPR mattress+ striker pump, freedom splint * Monitor POC -> NGT feeding? * Monitor lytes daily w/ TF, replete as needed . . .
[2018-06-01 12:00] VITALS: BP 162/77
[2018-06-01] MEDS: Vancomycin 750mg/NS 250ml IVPB SCH (13:29)
--- NOTE | 2018-06-01 13:47 | Diagnostic Imaging Report ---
Indication: Dyspnea Comparison: 05/31/2018 A single view chest radiograph was obtained. Findings: Near complete opacification of the right hemithorax again noted. There is evidence of interstitial edema. Heart is enlarged. IMPRESSION: No change management administrator the last day
[2018-06-01] MEDS ORDERED: NS 275ml ONE (14:06)
[2018-06-01] MEDS ORDERED: Tubing IV Secondary IV ONE (14:06)
[2018-06-01] MEDS ORDERED: D5 1/2NS 1000ml IV ONE (14:06)
--- NOTE | 2018-06-01 14:42 | Infectious Diseases Prog Note ---
Assessment/Plan Assessment/Plan 87 yo feamle with PMHx of COPD, HTN, and A.fib sent to the ED from her nuring home for SOB. Sepsis - Likely PNA 05/28/18 CXR with atalectasis vs consolidation in the right side. UA (-) Sputum Cx 05/28/18 - Staph a. and NF ( Sen pend) (Inf Neg) Positive blood Cx - Likely contaminant BCx 05/28/18 - CoNS Will repeat Leukocytosis 15 on admit - now resolved Febrile to 101.5 - now resolved COPD CAD A. fib PLAN - Continue Cefepime #09/06- and vancomycin #/-10 - f/u Urine Strep ag, Legionella - Monitor CBC and Temps We will continue to follow Ms. Nowak during this hospitalization. Subjective Allergies: Coded Allergies: Mushroom (Verified Allergy, Severe, 05/28/18) MORPHINE (Unverified Allergy, Intermediate, Itching, 01/04/15) PENICILLINS (Unverified Allergy, Intermediate, Hives, 01/04/15) CELECOXIB (Verified Allergy, Mild, 01/15/09) Subjective Increased O2 requirements On NRB Afebrile No Leukocytosis Objective Vital Signs Last 24 Hour Vital Signs Date Time Temp Pulse Resp B/P (MAP) Pulse Ox O2 Delivery O2 Flow Rate FiO2 06/01/18 13:37 99 30 99 Non-Rebreather 15.0 100 06/01/18 12:00 Bi-pap 06/01/18 12:00 109 06/01/18 12:00 97.9 99 36 162/77 (105) 100 06/01/18 08:58 112 174/78 06/01/18 08:00 100 06/01/18 08:00 Bi-pap 06/01/18 08:00 97.9 112 38 174/78 (110) 91 06/01/18 07:16 85 23 98 Venturi Mask 10.0 45 06/01/18 07:16 85 23 96 06/01/18 07:05 88 22 98 Bi-pap 40 06/01/18 07:03 88 22 98 Facial 40 06/01/18 05:02 89 26 98 Facial 40 06/01/18 04:00 94 06/01/18 04:00 Bi-pap 06/01/18 04:00 98.7 83 21 157/78 (104) 98 06/01/18 03:01 90 22 99 Facial 55 06/01/18 01:05 89 19 100 Bi-pap 55 06/01/18 00:51 91 19 98 Bi-pap 55 06/01/18 00:49 91 19 97 Facial 55 06/01/18 00:00 Bi-pap 06/01/18 00:00 97.9 101 27 129/74 (92) 97 06/01/18 00:00 105 05/31/18 23:12 108 25 99 Facial 70 05/31/18 21:54 105 27 99 05/31/18 20:08 111 34 94 Venturi Mask 14.0 55 05/31/18 20:00 98.0 114 25 139/69 (92) 99 05/31/18 20:00 117 05/31/18 20:00 Venturi Mask 14.0 05/31/18 19:12 104 22 96 Venturi Mask 14.0 55 05/31/18 16:00 98.9 125 34 148/82 (104) 97 05/31/18 16:00 Venturi Mask 14.0 05/31/18 16:00 120 Height (Feet): 5 Height (Inches): 4.00 Weight (Pounds): 118 Objective General: cachetic HEENT: normocephalic, atraumatic, DMM, EOMI Respiratory/Chest: Mild crakles B/L Cardiovascular/Chest: RRR, S1, S2 Abdomen: Soft, NT, ND, + BS Microbiology Date/Time Source Procedure Growth Status 05/30/18 09:55 Blood Blood Culture - Preliminary NO GROWTH AFTER 24 HOURS Resulted 05/30/18 09:45 Blood Blood Culture - Preliminary NO GROWTH AFTER 24 HOURS Resulted Laboratory Tests Test 06/01/18 03:45 06/01/18 08:09 06/01/18 12:00 White Blood Count 6.4 K/UL (4.8-10.8) Red Blood Count 4.66 M/UL (4.20-5.40) Hemoglobin 10.0 G/DL (12.0-16.0) L Hematocrit 33.5 % (37.0-47.0) L Mean Corpuscular Volume 72 FL (80-99) L Mean Corpuscular Hemoglobin 21.4 PG (27.0-31.0) L Mean Corpuscular Hemoglobin Concent 29.8 G/DL (32.0-36.0) L Red Cell Distribution Width 15.3 % (11.6-14.8) H Platelet Count 187 K/UL (150-450) Mean Platelet Volume 7.8 FL (6.5-10.1) Neutrophils (%) (Auto) 67.7 % (45.0-75.0) Lymphocytes (%) (Auto) 19.7 % (20.0-45.0) L Monocytes (%) (Auto) 9.2 % (1.0-10.0) Eosinophils (%) (Auto) 2.5 % (0.0-3.0) Basophils (%) (Auto) 0.9 % (0.0-2.0) Sodium Level 151 MMOL/L (136-145) H Potassium Level 3.1 MMOL/L (3.5-5.1) L Chloride Level 110 MMOL/L (98-107) H Carbon Dioxide Level 38 MMOL/L (21-32) H Anion Gap 3 mmol/L (5-15) L Blood Urea Nitrogen 30 mg/dL (7-18) H Creatinine 1.0 MG/DL (0.55-1.30) Estimat Glomerular Filtration Rate mL/min (>60) Glucose Level 124 MG/DL (74-106) H Calcium Level 9.6 MG/DL (8.5-10.1) Total Bilirubin 0.4 MG/DL (0.2-1.0) Aspartate Amino Transf (AST/SGOT) 12 U/L (15-37) L Alanine Aminotransferase (ALT/SGPT) 12 U/L (12-78) Alkaline Phosphatase 57 U/L (46-116) Pro-B-Type Natriuretic Peptide 2435 pg/mL (0-125) H Total Protein 6.3 G/DL (6.4-8.2) L Albumin 2.5 G/DL (3.4-5.0) L Globulin 3.8 g/dL Albumin/Globulin Ratio 0.7 (1.0-2.7) L Arterial Blood pH 7.358 (7.350-7.450) Arterial Blood Partial Pressure CO2 75.7 mmHg (35.0-45.0) *H Arterial Blood Partial Pressure O2 54.5 mmHg (75.0-100.0) L Arterial Blood HCO3 41.6 mmol/L (22.0-26.0) *H Arterial Blood Oxygen Saturation 88.2 % (95-100) *L Arterial Blood Base Excess 13.1 (-2-2) *H David Test Positive Vancomycin Level Trough 13.3 ug/mL (5.0-12.0) H Current Medications Medications (Trade) Dose Ordered Sig/Ann Route PRN Reason Start Time Stop Time Status Last Admin Dose Admin Acetaminophen (Tylenol) 650 mg Q4H PRN ORAL fever 05/28/18 07:30 06/27/18 07:29 05/29/18 06:40 Al Hydroxide/Mg Hydroxide (Mylanta II) 30 ml Q6H PRN ORAL dyspepsia 05/28/18 07:30 06/27/18 07:29 Albuterol/ Ipratropium (Albuterol/ Ipratropium) 3 ml Q4H PRN HHN Shortness of Breath 05/28/18 07:30 06/02/18 07:29 Albuterol/ Ipratropium (Albuterol/ Ipratropium) 3 ml Q6HRT HHN 05/30/18 13:00 06/04/18 12:59 06/01/18 13:37 Amiodarone HCl (Cordarone) 100 mg DAILY ORAL 05/31/18 09:00 06/30/18 08:59 06/01/18 08:58 Amlodipine Besylate (Norvasc) 2.5 mg DAILY ORAL 05/28/18 14:00 06/27/18 08:59 06/01/18 08:58 Cefepime HCl 1 gm/ Dextrose 55 ml @ 110 mls/hr Q24H IV 05/28/18 09:00 06/04/18 08:59 06/01/18 09:58 Dextrose 1,000 ml @ 75 mls/hr [id number] IV 06/01/18 08:30 06/29/18 08:29 06/01/18 08:57 Heparin Sodium (Porcine) (Heparin 5000 units/ml) 5,000 units EVERY 12 HOURS SUBQ 05/28/18 09:00 06/27/18 08:59 06/01/18 09:01 Nitroglycerin (Ntg) 0.4 mg Q5M PRN SL Prn Chest Pain 05/28/18 07:30 06/27/18 07:29 Ondansetron HCl (Zofran) 4 mg Q6H PRN IVP Nausea & Vomiting 05/28/18 07:30 06/27/18 07:29 Polyethylene Glycol (Miralax) 17 gm DAILYPRN PRN ORAL Constipation 05/28/18 07:30 06/27/18 07:29 Potassium Chloride 100 ml @ 100 mls/hr Q1H IVPB 06/01/18 13:00 06/01/18 14:59 06/01/18 13:00 Quetiapine Fumarate (SEROquel) 12.5 mg BID ORAL 05/30/18 18:00 06/29/18 17:59 05/31/18 17:41 Quetiapine Fumarate (SEROquel) 25 mg Q6H PRN ORAL For Anxiety 05/30/18 12:30 06/29/18 12:29 Temazepam (Restoril) 15 mg HSPRN PRN ORAL Insomnia 05/28/18 07:30 06/04/18 07:29 Vancomycin HCl (Vanco rx to dose) 1 ea DAILY PRN MISC Per rx protocol 05/28/18 07:30 06/27/18 07:29 Vancomycin/Sodium Chloride 250 ml @ 166.667 mls/hr Q12H IVPB 06/01/18 14:00 06/06/18 13:59 06/01/18 13:29 Clint Harris MD Jun 01, 2018 14:41
[2018-06-01 16:00] VITALS: BP 158/63
--- NOTE | 2018-06-01 16:41 | Consultation ---
Consult Note Consult Note Asked to yunior Lee for lack of urine out put patient seen, examined data reviewed discussed with MARGY Jones currently managed for : (1) Acute respiratory failure (2) Aspiration pneumonia (3) Acute encephalopathy (4) Pleural effusion (5) COPD (chronic obstructive pulmonary disease) (6) CAD (coronary artery disease) (7) Dementia Assessment/Plan Urinary out let obstruction, relieved after grewal Normal serum Cr Anemia, Low MCV High Ca corrected for low ALbumin Hydrate Anemia porter Adjust BP meds fu Lytes Gastric support Kendrick Jimenez MD Jun 01, 2018 16:41
--- NOTE | 2018-06-01 19:25 | General Progress Note ---
Assessment/Plan Problem List: (1) encephalopathy due to toxin (2) Dementia ICD Codes: F03.90 - Unspecified dementia without behavioral disturbance SNOMED: [id number] Assessment/Plan dcseroquel 12.5mg po bid seroquel 25mg q 6hr prn cont restraints. Subjective Allergies: Coded Allergies: Mushroom (Verified Allergy, Severe, 05/28/18) MORPHINE (Unverified Allergy, Intermediate, Itching, 01/04/15) PENICILLINS (Unverified Allergy, Intermediate, Hives, 01/04/15) CELECOXIB (Verified Allergy, Mild, 01/15/09) Subjective calmer desat Objective Last 24 Hour Vital Signs Date Time Temp Pulse Resp B/P (MAP) Pulse Ox O2 Delivery O2 Flow Rate FiO2 06/01/18 19:07 103 30 98 Non-Rebreather 15.0 100 06/01/18 18:59 100 31 100 Non-Rebreather 15.0 100 06/01/18 18:26 100 158/63 06/01/18 16:00 100 06/01/18 16:00 Bi-pap 06/01/18 16:00 97.3 99 28 158/63 (94) 99 06/01/18 13:47 99 28 99 Non-Rebreather 15.0 100 06/01/18 13:37 99 30 99 Non-Rebreather 15.0 100 06/01/18 12:00 Bi-pap 06/01/18 12:00 109 06/01/18 12:00 97.9 99 36 162/77 (105) 100 06/01/18 08:58 112 174/78 06/01/18 08:00 100 06/01/18 08:00 Bi-pap 06/01/18 08:00 97.9 112 38 174/78 (110) 91 06/01/18 07:16 85 23 98 Venturi Mask 10.0 45 06/01/18 07:16 85 23 96 06/01/18 07:05 88 22 98 Bi-pap 40 06/01/18 07:03 88 22 98 Facial 40 06/01/18 05:02 89 26 98 Facial 40 06/01/18 04:00 94 06/01/18 04:00 Bi-pap 06/01/18 04:00 98.7 83 21 157/78 (104) 98 06/01/18 03:01 90 22 99 Facial 55 06/01/18 01:05 89 19 100 Bi-pap 55 06/01/18 00:51 91 19 98 Bi-pap 55 06/01/18 00:49 91 19 97 Facial 55 06/01/18 00:00 Bi-pap 06/01/18 00:00 97.9 101 27 129/74 (92) 97 06/01/18 00:00 105 05/31/18 23:12 108 25 99 Facial 70 05/31/18 21:54 105 27 99 05/31/18 20:08 111 34 94 Venturi Mask 14.0 55 05/31/18 20:00 98.0 114 25 139/69 (92) 99 05/31/18 20:00 117 05/31/18 20:00 Venturi Mask 14.0 Intake and Output 05/31/18 06/01/18 19:00 07:00 Intake Total 920 ml 560 ml Output Total 400 ml 0 ml Balance 520 ml 560 ml IV Total 920 ml 560 ml Output Urine Total 400 ml 0 ml # Voids 1 Laboratory Tests 06/01/18 03:45: White Blood Count 6.4, Red Blood Count 4.66, Hemoglobin 10.0L, Hematocrit 33.5L , Mean Corpuscular Volume 72L, Mean Corpuscular Hemoglobin 21.4L, Mean Corpuscular Hemoglobin Concent 29.8L, Red Cell Distribution Width 15.3H, Platelet Count 187, Mean Platelet Volume 7.8, Neutrophils (%) (Auto) 67.7, Lymphocytes (%) (Auto) 19.7L, Monocytes (%) (Auto) 9.2, Eosinophils (%) (Auto) 2.5, Basophils (%) (Auto) 0.9, Sodium Level 151H, Potassium Level 3.1L, Chloride Level 110H, Carbon Dioxide Level 38H, Anion Gap 3L, Blood Urea Nitrogen 30H, Creatinine 1.0, Estimat Glomerular Filtration Rate , Glucose Level 124H, Calcium Level 9.6, Total Bilirubin 0.4, Aspartate Amino Transf (AST/ SGOT) 12L, Alanine Aminotransferase (ALT/SGPT) 12, Alkaline Phosphatase 57, Pro- B-Type Natriuretic Peptide 2435H, Total Protein 6.3L, Albumin 2.5L, Globulin 3.8 , Albumin/Globulin Ratio 0.7L 06/01/18 08:09: Arterial Blood pH 7.358, Arterial Blood Partial Pressure CO2 75.7*H, Arterial Blood Partial Pressure O2 54.5L, Arterial Blood HCO3 41.6*H, Arterial Blood Oxygen Saturation 88.2*L, Arterial Blood Base Excess 13.1*H, David Test Positive 06/01/18 12:00: Vancomycin Level Trough 13.3H Height (Feet): 5 Height (Inches): 4.00 Weight (Pounds): 118 General Appearance: lethargic, confused, agitated Liz Lo MD Jun 01, 2018 19:25
--- NOTE | 2018-06-01 19:43 | NUR ---
HAND-OFF: Report given to Essie Lewis RN.
--- NOTE | 2018-06-01 19:43 | NUR ---
NURSE NOTES: Received report from Susannah Gonzalez RN. Patient is asleep in bed, A/O x1, confused. No s/s of acute distress noted at this time. Sinus tach on monitor and storage bin tender. Receiving 15L O2 via NR mask and saturating well. Sinclair catheter intact and draining to gravity. Right wrist 24g IV noted to be intact and patent. Bed locked in lowest position with side rails up x3. Call light left within reach, family remains at bedside. Will continue to monitor.
[2018-06-01] MEDS ORDERED: Fleet's Mineral Oil Enema RECTAL SCH (19:45)
[2018-06-01 20:00] VITALS: BP 140/67
--- NOTE | 2018-06-01 20:42 | General Progress Note ---
Assessment/Plan Status: progressing Assessment/Plan This is an 87-year-old female admitted with chronic obstructive pulmonary disease exacerbation, right lower lobe infiltrate/pneumonia with altered mental status and acute kidney injury. The patient will be admitted to [facility] with the following medical problems. 1. Chronic obstructive pulmonary disease exacerbation and pneumonia. The patient has been seen by Pulmonary. Infectious Disease has been consulted, pancultured. IV antibiotics per ID. Continue with BiPAP and suction p.r.n. Transition to Venturi-mask when stable. 2. Acute kidney injury. We will monitor I's and O's, gentle intravenous fluids. Repeat a BMP in a.m. Consider Nephrology consult. 3. History of chronic atrial fibrillation. Continue with amiodarone. The patient is in sinus rhythm at this time. 4. History of hypertension. Continue with amlodipine and hold for systolic blood pressure less than 110. 5. Altered mental status, most likely from above conditions. We will keep n.p.o. except for medications and start IV fluids. 6. DVT prophylaxis with heparin subcutaneous and SCDs. 7. The patient is Full Code per policy. We will discuss with the family. Plan: -patient to continue on nonrebreather mask and transition to continuous Bipap at night - freedom splint to keep patient from attempting to move out of bed - am chest xray - fu cultures and antibiotics per ID - pulmonary toiltet and HHN prn - possible video swallow study if more responsive - consider NGT for tube feeding once respiratory status improves - continue with IV D5W at 75 cc/hr -nephrology consult appreciated, grewal relieved bladder outlet obstruction as cause of anuria this am am labs discussed with Dr. Lisa and family full code Subjective Date patient seen: Jun 01, 2018 ROS Limited/Unobtainable: Yes Allergies: Coded Allergies: Mushroom (Verified Allergy, Severe, 05/28/18) MORPHINE (Unverified Allergy, Intermediate, Itching, 01/04/15) PENICILLINS (Unverified Allergy, Intermediate, Hives, 01/04/15) CELECOXIB (Verified Allergy, Mild, 01/15/09) Objective Last 24 Hour Vital Signs Date Time Temp Pulse Resp B/P (MAP) Pulse Ox O2 Delivery O2 Flow Rate FiO2 06/01/18 19:07 103 30 98 Non-Rebreather 15.0 100 06/01/18 18:59 100 31 100 Non-Rebreather 15.0 100 06/01/18 18:26 100 158/63 06/01/18 16:00 100 06/01/18 16:00 Bi-pap 06/01/18 16:00 97.3 99 28 158/63 (94) 99 06/01/18 13:47 99 28 99 Non-Rebreather 15.0 100 06/01/18 13:37 99 30 99 Non-Rebreather 15.0 100 06/01/18 12:00 Bi-pap 06/01/18 12:00 109 06/01/18 12:00 97.9 99 36 162/77 (105) 100 06/01/18 08:58 112 174/78 06/01/18 08:00 100 06/01/18 08:00 Bi-pap 06/01/18 08:00 97.9 112 38 174/78 (110) 91 06/01/18 07:16 85 23 98 Venturi Mask 10.0 45 06/01/18 07:16 85 23 96 06/01/18 07:05 88 22 98 Bi-pap 40 06/01/18 07:03 88 22 98 Facial 40 06/01/18 05:02 89 26 98 Facial 40 06/01/18 04:00 94 06/01/18 04:00 Bi-pap 06/01/18 04:00 98.7 83 21 157/78 (104) 98 06/01/18 03:01 90 22 99 Facial 55 06/01/18 01:05 89 19 100 Bi-pap 55 06/01/18 00:51 91 19 98 Bi-pap 55 06/01/18 00:49 91 19 97 Facial 55 06/01/18 00:00 Bi-pap 06/01/18 00:00 97.9 101 27 129/74 (92) 97 06/01/18 00:00 105 05/31/18 23:12 108 25 99 Facial 70 05/31/18 21:54 105 27 99 Intake and Output 05/31/18 06/01/18 19:00 07:00 Intake Total 920 ml 560 ml Output Total 400 ml 0 ml Balance 520 ml 560 ml IV Total 920 ml 560 ml Output Urine Total 400 ml 0 ml # Voids 1 Laboratory Tests 06/01/18 03:45: White Blood Count 6.4, Red Blood Count 4.66, Hemoglobin 10.0L, Hematocrit 33.5L , Mean Corpuscular Volume 72L, Mean Corpuscular Hemoglobin 21.4L, Mean Corpuscular Hemoglobin Concent 29.8L, Red Cell Distribution Width 15.3H, Platelet Count 187, Mean Platelet Volume 7.8, Neutrophils (%) (Auto) 67.7, Lymphocytes (%) (Auto) 19.7L, Monocytes (%) (Auto) 9.2, Eosinophils (%) (Auto) 2.5, Basophils (%) (Auto) 0.9, Sodium Level 151H, Potassium Level 3.1L, Chloride Level 110H, Carbon Dioxide Level 38H, Anion Gap 3L, Blood Urea Nitrogen 30H, Creatinine 1.0, Estimat Glomerular Filtration Rate , Glucose Level 124H, Calcium Level 9.6, Total Bilirubin 0.4, Aspartate Amino Transf (AST/ SGOT) 12L, Alanine Aminotransferase (ALT/SGPT) 12, Alkaline Phosphatase 57, Pro- B-Type Natriuretic Peptide 2435H, Total Protein 6.3L, Albumin 2.5L, Globulin 3.8 , Albumin/Globulin Ratio 0.7L 06/01/18 08:09: Arterial Blood pH 7.358, Arterial Blood Partial Pressure CO2 75.7*H, Arterial Blood Partial Pressure O2 54.5L, Arterial Blood HCO3 41.6*H, Arterial Blood Oxygen Saturation 88.2*L, Arterial Blood Base Excess 13.1*H, David Test Positive 06/01/18 12:00: Vancomycin Level Trough 13.3H Height (Feet): 5 Height (Inches): 4.00 Weight (Pounds): 118 General Appearance: moderate distress EENT: PERRL/EOMI, pharynx normal Neck: non-tender, supple Cardiovascular: normal rate, regular rhythm, no gallop/murmur, no JVD Respiratory/Chest: decreased breath sounds Abdomen: non tender, soft, no mass Extremities: non-tender, normal inspection, no calf tenderness Edema: no edema noted Arm (L), no edema noted Arm (R), no edema noted Leg (L), no edema noted Leg (R), no edema noted Pedal (L), no edema noted Pedal (R), no edema noted Generalized Edema: trace edema Neurologic: responsive Skin: warm/dry Cruz Valderrama MD Jun 01, 2018 20:42
--- NOTE | 2018-06-01 20:48 | Cardiology Progress Note ---
Assessment/Plan Assessment/Plan COPD, congestive heart failure, atrial fibrillation sinus tachy agitation right lung collapse? cxr reviewed ekg reviewd d/w rt may need mroe free water hhn may be contributing to tachy chest pt dvt ppx all trop neg cr is normal is npo in onm low dose ivf is off diuretic as was dry at admission d/w rn Subjective ROS Limited/Unobtainable: Yes Objective Last 24 Hour Vital Signs Date Time Temp Pulse Resp B/P (MAP) Pulse Ox O2 Delivery O2 Flow Rate FiO2 06/01/18 19:07 103 30 98 Non-Rebreather 15.0 100 06/01/18 18:59 100 31 100 Non-Rebreather 15.0 100 06/01/18 18:26 100 158/63 06/01/18 16:00 100 06/01/18 16:00 Bi-pap 06/01/18 16:00 97.3 99 28 158/63 (94) 99 06/01/18 13:47 99 28 99 Non-Rebreather 15.0 100 06/01/18 13:37 99 30 99 Non-Rebreather 15.0 100 06/01/18 12:00 Bi-pap 06/01/18 12:00 109 06/01/18 12:00 97.9 99 36 162/77 (105) 100 06/01/18 08:58 112 174/78 06/01/18 08:00 100 06/01/18 08:00 Bi-pap 06/01/18 08:00 97.9 112 38 174/78 (110) 91 06/01/18 07:16 85 23 98 Venturi Mask 10.0 45 06/01/18 07:16 85 23 96 06/01/18 07:05 88 22 98 Bi-pap 40 06/01/18 07:03 88 22 98 Facial 40 06/01/18 05:02 89 26 98 Facial 40 06/01/18 04:00 94 06/01/18 04:00 Bi-pap 06/01/18 04:00 98.7 83 21 157/78 (104) 98 06/01/18 03:01 90 22 99 Facial 55 06/01/18 01:05 89 19 100 Bi-pap 55 06/01/18 00:51 91 19 98 Bi-pap 55 06/01/18 00:49 91 19 97 Facial 55 06/01/18 00:00 Bi-pap 06/01/18 00:00 97.9 101 27 129/74 (92) 97 06/01/18 00:00 105 05/31/18 23:12 108 25 99 Facial 70 05/31/18 21:54 105 27 99 General Appearance: other Neck: supple Cardiovascular: normal rate Respiratory/Chest: rhonchi - bilaterally Abdomen: normal bowel sounds, non tender, soft Extremities: no swelling Intake and Output 05/31/18 06/01/18 19:00 07:00 Intake Total 920 ml 560 ml Output Total 400 ml 0 ml Balance 520 ml 560 ml IV Total 920 ml 560 ml Output Urine Total 400 ml 0 ml # Voids 1 Laboratory Tests Test 06/01/18 03:45 06/01/18 08:09 06/01/18 12:00 White Blood Count 6.4 K/UL (4.8-10.8) Red Blood Count 4.66 M/UL (4.20-5.40) Hemoglobin 10.0 G/DL (12.0-16.0) L Hematocrit 33.5 % (37.0-47.0) L Mean Corpuscular Volume 72 FL (80-99) L Mean Corpuscular Hemoglobin 21.4 PG (27.0-31.0) L Mean Corpuscular Hemoglobin Concent 29.8 G/DL (32.0-36.0) L Red Cell Distribution Width 15.3 % (11.6-14.8) H Platelet Count 187 K/UL (150-450) Mean Platelet Volume 7.8 FL (6.5-10.1) Neutrophils (%) (Auto) 67.7 % (45.0-75.0) Lymphocytes (%) (Auto) 19.7 % (20.0-45.0) L Monocytes (%) (Auto) 9.2 % (1.0-10.0) Eosinophils (%) (Auto) 2.5 % (0.0-3.0) Basophils (%) (Auto) 0.9 % (0.0-2.0) Sodium Level 151 MMOL/L (136-145) H Potassium Level 3.1 MMOL/L (3.5-5.1) L Chloride Level 110 MMOL/L (98-107) H Carbon Dioxide Level 38 MMOL/L (21-32) H Anion Gap 3 mmol/L (5-15) L Blood Urea Nitrogen 30 mg/dL (7-18) H Creatinine 1.0 MG/DL (0.55-1.30) Estimat Glomerular Filtration Rate mL/min (>60) Glucose Level 124 MG/DL (74-106) H Calcium Level 9.6 MG/DL (8.5-10.1) Total Bilirubin 0.4 MG/DL (0.2-1.0) Aspartate Amino Transf (AST/SGOT) 12 U/L (15-37) L Alanine Aminotransferase (ALT/SGPT) 12 U/L (12-78) Alkaline Phosphatase 57 U/L (46-116) Pro-B-Type Natriuretic Peptide 2435 pg/mL (0-125) H Total Protein 6.3 G/DL (6.4-8.2) L Albumin 2.5 G/DL (3.4-5.0) L Globulin 3.8 g/dL Albumin/Globulin Ratio 0.7 (1.0-2.7) L Arterial Blood pH 7.358 (7.350-7.450) Arterial Blood Partial Pressure CO2 75.7 mmHg (35.0-45.0) *H Arterial Blood Partial Pressure O2 54.5 mmHg (75.0-100.0) L Arterial Blood HCO3 41.6 mmol/L (22.0-26.0) *H Arterial Blood Oxygen Saturation 88.2 % (95-100) *L Arterial Blood Base Excess 13.1 (-2-2) *H David Test Positive Vancomycin Level Trough 13.3 ug/mL (5.0-12.0) H Microbiology Date/Time Source Procedure Growth Status 05/30/18 09:55 Blood Blood Culture - Preliminary NO GROWTH AFTER 24 HOURS Resulted 05/30/18 09:45 Blood Blood Culture - Preliminary NO GROWTH AFTER 24 HOURS Resulted Geoffrey Sandhu MD Jun 01, 2018 20:48
--- NOTE | 2018-06-01 21:33 | NUR ---
RESPIRATORY NOTE: Placed pt back on bipap with current orders. Placed foam tape underneath facial mask to prevent breakdown. Alarms are on and audible. Bipap is plugged into red outlet. Will continue to monitor pt's progress.
[2018-06-02] VITALS (14 sets, daily range): BP systolic 120–216; BP diastolic 45–173
[2018-06-02] MEDS: Vancomycin 750mg/NS 250ml IVPB SCH (02:00)
[2018-06-02 05:28] LABS: BASOPHILS % (AUTO) 0.9 % (0.0-2.0); EOSINOPHILS % (AUTO) 3.1 % (0.0-3.0); HEMATOCRIT 34.6 % (37.0-47.0); HEMOGLOBIN 10.3 G/DL (12.0-16.0); LYMPHOCYTES % (AUTO) 21.9 % (20.0-45.0); MEAN CORPUSCULAR VOLUME 72 FL (80-99); MONOCYTES % (AUTO) 8.8 % (1.0-10.0); NEUTROPHILS % (AUTO) 65.3 % (45.0-75.0); PLATELET COUNT 204 K/UL (150-450); RED BLOOD COUNT 4.78 M/UL (4.20-5.40); RED CELL DISTRIBUTION WIDTH 15.4 % (11.6-14.8); WHITE BLOOD COUNT 7.3 K/UL (4.8-10.8)
[2018-06-02 06:15] LABS: ALANINE AMINOTRANSFERASE 13 U/L (12-78); ALBUMIN 2.5 G/DL (3.4-5.0); ALBUMIN/GLOBULIN RATIO 0.6 (1.0-2.7); ALKALINE PHOSPHATASE 61 U/L (46-116); ANION GAP 3 mmol/L (5-15); ASPARTATE AMINO TRANSFERASE 13 U/L (15-37); BILIRUBIN,TOTAL 0.2 MG/DL (0.2-1.0); BLOOD UREA NITROGEN 23 mg/dL (7-18); CALCIUM 8.9 MG/DL (8.5-10.1); CARBON DIOXIDE 37 MMOL/L (21-32); CHLORIDE 107 MMOL/L (98-107); CHOLESTEROL 197 MG/DL (< 200); CREATININE 0.9 MG/DL (0.55-1.30); FERRITIN 318 NG/ML (8-388); HDL CHOLESTEROL 38 MG/DL (40-60); POTASSIUM 3.9 MMOL/L (3.5-5.1); SODIUM 147 MMOL/L (136-145); TRIGLYCERIDES 179 MG/DL (30-150)
[2018-06-02 06:23] LABS: % IRON SATURATION 26 % (15-50); IRON 29 ug/dL (50-175); TOTAL IRON BINDING CAPACITY 111 ug/dL (250-450)
[2018-06-02 06:28] LABS: CREATINE KINASE 19 U/L (26-308); GAMMA GLUTAMYL TRANSPEPTIDASE < 3 U/L (5-85); PHOSPHORUS 2.2 MG/DL (2.5-4.9)
--- NOTE | 2018-06-02 07:07 | NUR ---
HAND-OFF: Report given to Susannah Gonzalez RN.
--- NOTE | 2018-06-02 07:08 | NUR ---
NURSE NOTES: RECEIVED PATIENT FROM Kyle MCCLELLAND RN. PATIENT IS ASLEEP. NOTED TRYING TO REMOVE BIPAP MASK. STILL ON RESTRAINTS. HOOKED TO GROVE WORKER. ON BIPAP /, FIO2 AT 40%. NO SIGNS OF DISTRESS OF THE MOMENT. ON NPO. IV ON R W G24, WITH IVF RUNNING AT D5 W 75CC/HR. . CALL LIGHT WITHIN REACH. BED AT LOWEST POSITION. SIDE RAILS UP. WILL CONTINUE TO MONITOR.
[2018-06-02] MEDS: Albuterol/Ipratropium 3ml neb HHN SCH ×3 (07:26→19:34)
--- NOTE | 2018-06-02 08:24 | Infectious Diseases Prog Note ---
Assessment/Plan Assessment/Plan 87 yo feamalex with PMHx of COPD, HTN, and A.fib sent to the ED from her nuring home for SOB. Sepsis - Likely PNA 05/28/18 CXR with atalectasis vs consolidation in the right side. UA (-) Sputum Cx 05/28/18 - Staph a. and NF ( Sen pend) (Inf Neg) Urine legionella (-) Positive blood Cx - Likely contaminant BCx 05/28/18 - CoNS BCX 05/30/18 - NGTD Leukocytosis 15 on admit - now resolved Febrile to 101.5 - now resolved COPD CAD A. fib PLAN - Continue Cefepime #6/-10 and vancomycin #6/-10 - Monitor CBC and Temps We will continue to follow Ms. Nowak during this hospitalization. Subjective Allergies: Coded Allergies: Mushroom (Verified Allergy, Severe, 05/28/18) MORPHINE (Unverified Allergy, Intermediate, Itching, 01/04/15) PENICILLINS (Unverified Allergy, Intermediate, Hives, 01/04/15) CELECOXIB (Verified Allergy, Mild, 01/15/09) Subjective On BIPAP Afebrile No Leukocytosis Objective Vital Signs Last 24 Hour Vital Signs Date Time Temp Pulse Resp B/P (MAP) Pulse Ox O2 Delivery O2 Flow Rate FiO2 06/02/18 08:00 Bi-pap 06/02/18 07:39 100 21 99 Bi-pap 50 06/02/18 07:26 87 24 97 Bi-pap 50 06/02/18 05:17 95 22 95 Facial 40 06/02/18 04:00 50 06/02/18 04:00 97.8 97 20 143/78 (99) 97 06/02/18 04:00 Bi-pap 06/02/18 03:27 95 06/02/18 03:16 98 24 Bi-pap 40 06/02/18 03:14 98 24 96 Facial 40 06/02/18 01:28 94 22 99 Facial 40 06/02/18 00:00 Bi-pap 06/02/18 00:00 96 06/02/18 00:00 97.8 91 22 133/70 (91) 99 06/02/18 00:00 50 06/01/18 23:55 96 26 98 Bi-pap 50 06/01/18 23:48 96 26 97 Bi-pap 50 06/01/18 22:48 91 24 100 Facial 40 06/01/18 21:32 99 24 99 Facial 40 06/01/18 21:30 50 06/01/18 20:00 Bi-pap 06/01/18 20:00 98.0 105 36 140/67 (91) 99 06/01/18 19:07 103 30 98 Non-Rebreather 15.0 100 06/01/18 19:00 101 06/01/18 18:59 100 31 100 Non-Rebreather 15.0 100 06/01/18 18:26 100 158/63 06/01/18 16:00 100 06/01/18 16:00 Bi-pap 06/01/18 16:00 97.3 99 28 158/63 (94) 99 06/01/18 13:47 99 28 99 Non-Rebreather 15.0 100 06/01/18 13:37 99 30 99 Non-Rebreather 15.0 100 06/01/18 12:00 Bi-pap 06/01/18 12:00 109 06/01/18 12:00 97.9 99 36 162/77 (105) 100 06/01/18 08:58 112 174/78 Height (Feet): 5 Height (Inches): 4.00 Weight (Pounds): 118 Objective General: NAD, cachetic HEENT: normocephalic, atraumatic, DMM, EOMI Respiratory/Chest: Mild crakles B/L Cardiovascular/Chest: RRR, S1, S2 Abdomen: Soft, NT, ND, + BS Microbiology Date/Time Source Procedure Growth Status 05/30/18 09:55 Blood Blood Culture - Preliminary NO GROWTH AFTER 48 HOURS Resulted 05/30/18 09:45 Blood Blood Culture - Preliminary NO GROWTH AFTER 48 HOURS Resulted Laboratory Tests Test 06/01/18 12:00 06/02/18 03:20 Vancomycin Level Trough 13.3 ug/mL (5.0-12.0) H White Blood Count 7.3 K/UL (4.8-10.8) Red Blood Count 4.78 M/UL (4.20-5.40) Hemoglobin 10.3 G/DL (12.0-16.0) L Hematocrit 34.6 % (37.0-47.0) L Mean Corpuscular Volume 72 FL (80-99) L Mean Corpuscular Hemoglobin 21.6 PG (27.0-31.0) L Mean Corpuscular Hemoglobin Concent 29.8 G/DL (32.0-36.0) L Red Cell Distribution Width 15.4 % (11.6-14.8) H Platelet Count 204 K/UL (150-450) Mean Platelet Volume 8.1 FL (6.5-10.1) Neutrophils (%) (Auto) 65.3 % (45.0-75.0) Lymphocytes (%) (Auto) 21.9 % (20.0-45.0) Monocytes (%) (Auto) 8.8 % (1.0-10.0) Eosinophils (%) (Auto) 3.1 % (0.0-3.0) H Basophils (%) (Auto) 0.9 % (0.0-2.0) Sodium Level 147 MMOL/L (136-145) H Potassium Level 3.9 MMOL/L (3.5-5.1) Chloride Level 107 MMOL/L (98-107) Carbon Dioxide Level 37 MMOL/L (21-32) H Anion Gap 3 mmol/L (5-15) L Blood Urea Nitrogen 23 mg/dL (7-18) H Creatinine 0.9 MG/DL (0.55-1.30) Estimat Glomerular Filtration Rate mL/min (>60) Glucose Level 87 MG/DL (74-106) Hemoglobin A1c 5.9 % (4.3-6.0) Uric Acid 5.4 MG/DL (2.6-7.2) Calcium Level 8.9 MG/DL (8.5-10.1) Phosphorus Level 2.2 MG/DL (2.5-4.9) L Magnesium Level 1.8 MG/DL (1.8-2.4) Iron Level 29 ug/dL (50-175) L Total Iron Binding Capacity 111 ug/dL (250-450) L Percent Iron Saturation 26 % (15-50) Unsaturated Iron Binding 82 ug/dL (112-346) L Ferritin 318 NG/ML (8-388) Total Bilirubin 0.2 MG/DL (0.2-1.0) Gamma Glutamyl Transpeptidase < 3 U/L (5-85) L Aspartate Amino Transf (AST/SGOT) 13 U/L (15-37) L Alanine Aminotransferase (ALT/SGPT) 13 U/L (12-78) Alkaline Phosphatase 61 U/L (46-116) Total Creatine Kinase 19 U/L (26-308) L Troponin I 0.017 ng/mL (0.000-0.056) C-Reactive Protein, Quantitative 12.0 mg/dL (0.00-0.90) H Pro-B-Type Natriuretic Peptide 1117 pg/mL (0-125) H Total Protein 6.4 G/DL (6.4-8.2) Albumin 2.5 G/DL (3.4-5.0) L Globulin 3.9 g/dL Albumin/Globulin Ratio 0.6 (1.0-2.7) L Triglycerides Level 179 MG/DL (30-150) H Cholesterol Level 197 MG/DL (< 200) LDL Cholesterol 125 mg/dL (<100) H HDL Cholesterol 38 MG/DL (40-60) L Cholesterol/HDL Ratio 5.2 (3.3-4.4) H Vitamin B12 Level Pending Folate 12.0 NG/ML (8.6-58.9) Thyroid Stimulating Hormone (TSH) 0.871 uiU/mL (0.358-3.740) Current Medications Medications (Trade) Dose Ordered Sig/Ann Route PRN Reason Start Time Stop Time Status Last Admin Dose Admin Acetaminophen (Tylenol) 650 mg Q4H PRN ORAL fever 05/28/18 07:30 06/27/18 07:29 05/29/18 06:40 Albuterol/ Ipratropium (Albuterol/ Ipratropium) 3 ml Q6HRT HHN 05/30/18 13:00 06/04/18 12:59 06/01/18 23:48 Amiodarone HCl (Cordarone) 100 mg DAILY ORAL 05/31/18 09:00 06/30/18 08:59 06/01/18 08:58 Amlodipine Besylate (Norvasc) 5 mg BID ORAL 06/01/18 18:00 06/27/18 08:59 06/01/18 18:26 Cefepime HCl 1 gm/ Dextrose 55 ml @ 110 mls/hr Q24H IV 05/28/18 09:00 06/04/18 08:59 06/01/18 09:58 Dextrose 1,000 ml @ 75 mls/hr [id number] IV 06/01/18 08:30 06/29/18 08:29 06/01/18 21:19 Famotidine (Pepcid I.v.) 20 mg Q12HR IVP 06/01/18 21:00 07/01/18 20:59 06/01/18 21:19 Heparin Sodium (Porcine) (Heparin 5000 units/ml) 5,000 units EVERY 12 HOURS SUBQ 05/28/18 09:00 06/27/18 08:59 06/01/18 20:29 Nitroglycerin (Ntg) 0.4 mg Q5M PRN SL Prn Chest Pain 05/28/18 07:30 06/27/18 07:29 Ondansetron HCl (Zofran) 4 mg Q6H PRN IVP Nausea & Vomiting 05/28/18 07:30 06/27/18 07:29 Polyethylene Glycol (Miralax) 17 gm DAILYPRN PRN ORAL Constipation 05/28/18 07:30 06/27/18 07:29 Quetiapine Fumarate (SEROquel) 12.5 mg BID ORAL 05/30/18 18:00 06/29/18 17:59 05/31/18 17:41 Quetiapine Fumarate (SEROquel) 25 mg Q6H PRN ORAL For Anxiety 05/30/18 12:30 06/29/18 12:29 Temazepam (Restoril) 15 mg HSPRN PRN ORAL Insomnia 05/28/18 07:30 06/04/18 07:29 06/02/18 01:45 Vancomycin HCl (Vanco rx to dose) 1 ea DAILY PRN MISC Per rx protocol 05/28/18 07:30 06/27/18 07:29 Vancomycin/Sodium Chloride 250 ml @ 166.667 mls/hr Q12H IVPB 06/01/18 14:00 06/06/18 13:59 06/02/18 02:00 Clint Harris MD Jun 02, 2018 08:24
[2018-06-02] MEDS: Cefepime HCl 1 GM in D5W 55 ML IV SCH (09:20)
[2018-06-02] MEDS: Amiodarone 200mg tab ORAL SCH (09:21)
[2018-06-02] MEDS: Heparin 5000 units/ml inj SUBQ SCH ×2 (09:24→21:17)
--- NOTE | 2018-06-02 09:27 | NUR ---
RADIOLOGY DEPT CHEST X-RAY DONE.-P.DYE
--- NOTE | 2018-06-02 10:30 | NUR ---
NURSE NOTES: DR ANNE SPOKE WITH THE FAMILY (SON) REGARDING INTUBATION. SON CONSENTED FOR INTUBATION. NO SIGN OF DISTRESS. WILL CONTINUE TO MONITOR.
[2018-06-02] MEDS ORDERED: Potassium Phosphate 15 MM in NS 275 ML IV SCH (11:00)
--- NOTE | 2018-06-02 11:01 | NUR ---
RADIOLOGY DEPT ABDOMEN X-RAY FOR NGT PLMT PERFORMED.-P.DYE
--- NOTE | 2018-06-02 11:33 | NUR ---
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 97.2 HR 93 RR 24 B/P 144/71 BIPAP 50% NA 147 BUN 23 BNP 1117 IS: IVF D5@ 75ML/HR KPHOS IV VANCO IV CEFEPIME IV HEPARIN SUBC STEP DOWN STATUS
--- NOTE | 2018-06-02 11:35 | Pulmonolgy Critical Care Note ---
Critical Care - Asmt/Plan Problems: (1) Acute respiratory failure (2) Aspiration pneumonia (3) Acute encephalopathy (4) Pleural effusion (5) COPD (chronic obstructive pulmonary disease) (6) CAD (coronary artery disease) (7) Dementia Respiratory: monitor respiratory rate, adjust FIO2, CXR Renal: F/U I&O, keep IV fluid Infectious Disease: continue antibiotics Gastrointestinal: continue feedings/current rate Endocrine: monitor blood sugar, check TSH Hematologic: monitor H/H, transfuse if hgb<8.5 Neurologic: PRN Morphine, keep patient comfortable Affect: PRN ativan Prophylaxis: Protonix Notes Reviewed: renal Discussed with: nurses, consultants, bottle caser, family member - with son, daughter, and daughter in law Critical Care - Objective Last 24 Hour Vital Signs Date Time Temp Pulse Resp B/P (MAP) Pulse Ox O2 Delivery O2 Flow Rate FiO2 06/02/18 09:21 88 144/71 06/02/18 08:00 88 06/02/18 08:00 97.2 93 24 144/71 (95) 97 06/02/18 08:00 Bi-pap 06/02/18 08:00 50 06/02/18 07:39 100 21 99 Bi-pap 50 06/02/18 07:26 87 24 97 Bi-pap 50 06/02/18 05:17 95 22 95 Facial 40 06/02/18 04:00 50 06/02/18 04:00 97.8 97 20 143/78 (99) 97 06/02/18 04:00 Bi-pap 06/02/18 03:27 95 06/02/18 03:16 98 24 Bi-pap 40 06/02/18 03:14 98 24 96 Facial 40 06/02/18 01:28 94 22 99 Facial 40 06/02/18 00:00 Bi-pap 06/02/18 00:00 96 06/02/18 00:00 97.8 91 22 133/70 (91) 99 06/02/18 00:00 50 06/01/18 23:55 96 26 98 Bi-pap 50 06/01/18 23:48 96 26 97 Bi-pap 50 06/01/18 22:48 91 24 100 Facial 40 06/01/18 21:32 99 24 99 Facial 40 06/01/18 21:30 50 06/01/18 20:00 Bi-pap 06/01/18 20:00 98.0 105 36 140/67 (91) 99 06/01/18 19:07 103 30 98 Non-Rebreather 15.0 100 06/01/18 19:00 101 06/01/18 18:59 100 31 100 Non-Rebreather 15.0 100 06/01/18 18:26 100 158/63 06/01/18 16:00 100 06/01/18 16:00 Bi-pap 06/01/18 16:00 97.3 99 28 158/63 (94) 99 06/01/18 16:00 15.0 06/01/18 13:47 99 28 99 Non-Rebreather 15.0 100 06/01/18 13:37 99 30 99 Non-Rebreather 15.0 100 06/01/18 12:00 Bi-pap 06/01/18 12:00 109 06/01/18 12:00 97.9 99 36 162/77 (105) 100 06/01/18 12:00 15.0 Status: awake Condition: critical Neck: full ROM Lungs: clear Heart: HR/BP stable Abdomen: soft, active bowel sounds Extremities: no C/C/E Decubiti: stage Critical Care - Subjective ROS Limited/Unobtainable: Yes Interval Events: not tolerating bipap well. Condition: critical EKG Rhythm: Sinus Rhythm FI02: 50 Vent Support Mode: BiLevel Sputum Amount: None I&O: Intake and Output 06/01/18 06/02/18 19:00 07:00 Intake Total 1283.334 ml 957.500 ml Output Total 450 ml 400 ml Balance 833.334 ml 557.500 ml Intake Oral 0 ml 0 ml IV Total 1283.334 ml 957.500 ml Output Urine Total 450 ml 400 ml CXR: right lung collapse Labs: Laboratory Tests Test 06/01/18 12:00 06/02/18 03:20 Vancomycin Level Trough 13.3 ug/mL (5.0-12.0) H White Blood Count 7.3 K/UL (4.8-10.8) Red Blood Count 4.78 M/UL (4.20-5.40) Hemoglobin 10.3 G/DL (12.0-16.0) L Hematocrit 34.6 % (37.0-47.0) L Mean Corpuscular Volume 72 FL (80-99) L Mean Corpuscular Hemoglobin 21.6 PG (27.0-31.0) L Mean Corpuscular Hemoglobin Concent 29.8 G/DL (32.0-36.0) L Red Cell Distribution Width 15.4 % (11.6-14.8) H Platelet Count 204 K/UL (150-450) Mean Platelet Volume 8.1 FL (6.5-10.1) Neutrophils (%) (Auto) 65.3 % (45.0-75.0) Lymphocytes (%) (Auto) 21.9 % (20.0-45.0) Monocytes (%) (Auto) 8.8 % (1.0-10.0) Eosinophils (%) (Auto) 3.1 % (0.0-3.0) H Basophils (%) (Auto) 0.9 % (0.0-2.0) Sodium Level 147 MMOL/L (136-145) H Potassium Level 3.9 MMOL/L (3.5-5.1) Chloride Level 107 MMOL/L (98-107) Carbon Dioxide Level 37 MMOL/L (21-32) H Anion Gap 3 mmol/L (5-15) L Blood Urea Nitrogen 23 mg/dL (7-18) H Creatinine 0.9 MG/DL (0.55-1.30) Estimat Glomerular Filtration Rate mL/min (>60) Glucose Level 87 MG/DL (74-106) Hemoglobin A1c 5.9 % (4.3-6.0) Uric Acid 5.4 MG/DL (2.6-7.2) Calcium Level 8.9 MG/DL (8.5-10.1) Phosphorus Level 2.2 MG/DL (2.5-4.9) L Magnesium Level 1.8 MG/DL (1.8-2.4) Iron Level 29 ug/dL (50-175) L Total Iron Binding Capacity 111 ug/dL (250-450) L Percent Iron Saturation 26 % (15-50) Unsaturated Iron Binding 82 ug/dL (112-346) L Ferritin 318 NG/ML (8-388) Total Bilirubin 0.2 MG/DL (0.2-1.0) Gamma Glutamyl Transpeptidase < 3 U/L (5-85) L Aspartate Amino Transf (AST/SGOT) 13 U/L (15-37) L Alanine Aminotransferase (ALT/SGPT) 13 U/L (12-78) Alkaline Phosphatase 61 U/L (46-116) Total Creatine Kinase 19 U/L (26-308) L Troponin I 0.017 ng/mL (0.000-0.056) C-Reactive Protein, Quantitative 12.0 mg/dL (0.00-0.90) H Pro-B-Type Natriuretic Peptide 1117 pg/mL (0-125) H Total Protein 6.4 G/DL (6.4-8.2) Albumin 2.5 G/DL (3.4-5.0) L Globulin 3.9 g/dL Albumin/Globulin Ratio 0.6 (1.0-2.7) L Triglycerides Level 179 MG/DL (30-150) H Cholesterol Level 197 MG/DL (< 200) LDL Cholesterol 125 mg/dL (<100) H HDL Cholesterol 38 MG/DL (40-60) L Cholesterol/HDL Ratio 5.2 (3.3-4.4) H Vitamin B12 Level > 2000 PG/ML (193-986) H Folate 12.0 NG/ML (8.6-58.9) Thyroid Stimulating Hormone (TSH) 0.871 uiU/mL (0.358-3.740) Yuliet Mariee MD Jun 02, 2018 11:35
--- NOTE | 2018-06-02 11:49 | NUR ---
ST NOTE: SWALLOW STATUS AND D/C SUMMARY. FOLLOWED UP PT'S CONDITION. NGT INSERTED. PER RN, WILL SLOWLY INITIATE LOW FLOW TUBE FEEDING PER . DR. ANNE. CHART REVIEWED. PER ABG RESULTS: CO2 STILL HIGH, PT IS STILL ON BIPAP. PER JOHN JI, PT WILL BE TRANSFERRED TO ICU FOR POSSIBLE INTUBATION. CURRENTLY, PT IS NOT STABLE TO PARTICIPATE ANY SKILLED ST SERVICE AT THIS TIME. D/C FROM ST SERVICE AT THIS TIME. PLEASE RE-ORDER ST EVAL WHEN PT IS MEDICALLY STABLE. RN NOTIFIED.
--- NOTE | 2018-06-02 12:26 | Nephrology Progress Note ---
Assessment/Plan Problem List: (1) Urinary outflow obstruction Assessment: resolved after grewal (2) Acute respiratory failure (3) Dementia (4) Afib Assessment Urinary out let obstruction, relieved after grewal Normal serum Cr Anemia, Low MCV High Ca corrected for low ALbumin other conditions: (1) Acute respiratory failure (2) Aspiration pneumonia (3) Acute encephalopathy (4) Pleural effusion (5) COPD (chronic obstructive pulmonary disease) (6) CAD (coronary artery disease) (7) Dementia Plan slow Hydrate Anemia porter Adjust BP meds fu Lytes Gastric support pulm support- not tolerating bipap consider tube feeding as po is POOR discussed with daughter [place] Dr Lee aware Subjective ROS Limited/Unobtainable: No Constitutional: Reports: malaise Objective Objective Last 24 Hour Vital Signs Date Time Temp Pulse Resp B/P (MAP) Pulse Ox O2 Delivery O2 Flow Rate FiO2 06/02/18 11:34 96 23 98 Facial 50 06/02/18 09:21 88 144/71 06/02/18 08:00 88 06/02/18 08:00 97.2 93 24 144/71 (95) 97 06/02/18 08:00 Bi-pap 06/02/18 08:00 50 06/02/18 07:39 100 21 99 Bi-pap 50 06/02/18 07:26 87 24 97 Bi-pap 50 06/02/18 05:17 95 22 95 Facial 40 06/02/18 04:00 50 06/02/18 04:00 97.8 97 20 143/78 (99) 97 06/02/18 04:00 Bi-pap 06/02/18 03:27 95 06/02/18 03:16 98 24 Bi-pap 40 06/02/18 03:14 98 24 96 Facial 40 06/02/18 01:28 94 22 99 Facial 40 06/02/18 00:00 Bi-pap 06/02/18 00:00 96 06/02/18 00:00 97.8 91 22 133/70 (91) 99 06/02/18 00:00 50 06/01/18 23:55 96 26 98 Bi-pap 50 06/01/18 23:48 96 26 97 Bi-pap 50 06/01/18 22:48 91 24 100 Facial 40 06/01/18 21:32 99 24 99 Facial 40 06/01/18 21:30 50 1/30/19 20:00 Bi-pap 06/01/18 20:00 98.0 105 36 140/67 (91) 99 06/01/18 19:07 103 30 98 Non-Rebreather 15.0 100 06/01/18 19:00 101 06/01/18 18:59 100 31 100 Non-Rebreather 15.0 100 06/01/18 18:26 100 158/63 06/01/18 16:00 100 06/01/18 16:00 Bi-pap 06/01/18 16:00 97.3 99 28 158/63 (94) 99 06/01/18 16:00 15.0 06/01/18 13:47 99 28 99 Non-Rebreather 15.0 100 06/01/18 13:37 99 30 99 Non-Rebreather 15.0 100 Intake and Output 06/01/18 06/02/18 19:00 07:00 Intake Total 1283.334 ml 957.500 ml Output Total 450 ml 400 ml Balance 833.334 ml 557.500 ml Intake Oral 0 ml 0 ml IV Total 1283.334 ml 957.500 ml Output Urine Total 450 ml 400 ml Laboratory Tests 06/02/18 03:20: White Blood Count 7.3, Red Blood Count 4.78, Hemoglobin 10.3L, Hematocrit 34.6L , Mean Corpuscular Volume 72L, Mean Corpuscular Hemoglobin 21.6L, Mean Corpuscular Hemoglobin Concent 29.8L, Red Cell Distribution Width 15.4H, Platelet Count 204, Mean Platelet Volume 8.1, Neutrophils (%) (Auto) 65.3, Lymphocytes (%) (Auto) 21.9, Monocytes (%) (Auto) 8.8, Eosinophils (%) (Auto) 3.1H, Basophils (%) (Auto) 0.9, Sodium Level 147H, Potassium Level 3.9, Chloride Level 107, Carbon Dioxide Level 37H, Anion Gap 3L, Blood Urea Nitrogen 23H, Creatinine 0.9, Estimat Glomerular Filtration Rate , Glucose Level 87, Hemoglobin A1c 5.9, Uric Acid 5.4, Calcium Level 8.9, Phosphorus Level 2.2L, Magnesium Level 1.8, Iron Level 29L, Total Iron Binding Capacity 111L, Percent Iron Saturation 26, Unsaturated Iron Binding 82L, Ferritin 318, Total Bilirubin 0.2, Gamma Glutamyl Transpeptidase < 3L, Aspartate Amino Transf (AST/SGOT) 13L, Alanine Aminotransferase (ALT/SGPT) 13, Alkaline Phosphatase 61, Total Creatine Kinase 19L, Troponin I 0.017, C-Reactive Protein, Quantitative 12.0H, Pro-B- Type Natriuretic Peptide 1117H, Total Protein 6.4, Albumin 2.5L, Globulin 3.9, Albumin/Globulin Ratio 0.6L, Triglycerides Level 179H, Cholesterol Level 197, LDL Cholesterol 125H, HDL Cholesterol 38L, Cholesterol/HDL Ratio 5.2H, Vitamin B12 Level > 2000H, Folate 12.0, Thyroid Stimulating Hormone (TSH) 0.871 Height (Feet): 5 Height (Inches): 4.00 Weight (Pounds): 118 General Appearance: moderate distress EENT: other - on bipap Neck: limited range of motion Cardiovascular: tachycardia Respiratory/Chest: decreased breath sounds Abdomen: distended Kendrick Jimenez MD Jun 02, 2018 12:26
--- NOTE | 2018-06-02 12:38 | Diagnostic Imaging Report ---
. Indication: Dyspnea Technique: One view of the chest Comparison: 06/01/2018 Findings: Extensive right hemithorax opacification is essentially unchanged. Left lung and pleural space remain clear. The heart is probably enlarged Impression: Unchanged, over one day, findings as above.
--- NOTE | 2018-06-02 12:40 | NUR ---
HAND-OFF: Report given to Xavier Houston RN. Addendum: 06/02/18 at 1426 by JOHN GARCÍA RN NURSE NOTES: Wrong Time
--- NOTE | 2018-06-02 13:00 | NUR ---
RESPIRATORY NOTE: pt intubated with 7.5 et tube, 21 @ lip line, vent settings of AC 12 500 +5 100%, pt transfered to ICU bed A. will continue to monitor the pts progress Addendum: 06/02/18 at 1718 by KADY MARI RT ET tube is @ 20 lip line pulled out 3cm per dr louie
--- NOTE | 2018-06-02 13:00 | NUR ---
NURSE NOTES: INTUBATED PATIENT BY DR MARTE, ETT 7.5 AT 21CM LIP LINE. WILL CONTINUE TO MONITOR.
--- NOTE | 2018-06-02 13:06 | Emergency Room Report ---
History of Present Illness General Chief Complaint: Dyspnea/Respdistress Source: Patient, Medical Record, PMD Present Illness Allergies: Coded Allergies: Mushroom (Verified Allergy, Severe, 05/28/18) MORPHINE (Unverified Allergy, Intermediate, Itching, 01/04/15) PENICILLINS (Unverified Allergy, Intermediate, Hives, 01/04/15) CELECOXIB (Verified Allergy, Mild, 01/15/09) Nursing Documentation-PM Past Medical History Deferred: Pt Cognitively Impaired Past Medical History: No History, Except For Hx Cardiac Problems: Yes Hx Hypertension: Yes Hx Asthma: Yes Hx COPD: Yes Hx Cancer: No Hx Gastrointestinal Problems: Yes Hx Neurological Problems: Yes Hx Encephalitis: Yes Physical Exam Vital Signs Date Time Temp Pulse Resp B/P (MAP) Pulse Ox O2 Delivery O2 Flow Rate FiO2 05/29/18 07:10 97.7 05/29/18 08:00 Venturi Mask 05/29/18 08:00 91 20 148/76 (100) 100 05/29/18 12:00 2.0 05/30/18 14:49 36 Procedures Intubation Intubation : Consent: Other - PMD called and requested ET Intubation for better suctioning 2/2 lung collapse and bipap Time of Intubation: 12:30 Intubation Method: orotracheal Tube Size (cm): 7.5 Medications: Etomidate, Succinylcholine Breath Sounds after Intubation: equal Intubation Complications: no complications Post Intubation Xray: No Attempts: One Patient Tolerated: Well Complications: None Medical Decision Making Diagnostic Impression: Primary Impression: Respiratory distress Additional Impressions: Pleural effusion Hypoxia COPD with acute exacerbation Last Vital Signs Date Time Temp Pulse Resp B/P (MAP) Pulse Ox O2 Delivery O2 Flow Rate FiO2 06/02/18 11:34 96 23 98 Facial 50 06/02/18 09:21 144/71 06/02/18 08:00 97.2 06/01/18 19:07 15.0 Disposition: SNF Condition: Critical Referrals: GAY HERNANDEZ (PCP) SERENA MARTE M.D Jun 02, 2018 13:06
[2018-06-02] MEDS ORDERED: Potassium Phosphate 15 MM in NS 275 ML IV ONE (13:15)
--- NOTE | 2018-06-02 13:15 | NUR ---
HAND-OFF: Report given to Xavier Houston RN.
[2018-06-02] MEDS ORDERED: LORazepam Inj 2mg/ml 1ml IV SCH (13:30)
[2018-06-02] MEDS ORDERED: Nitroglycerin Subl 0.4mg tab SL PRN (13:30)
--- NOTE | 2018-06-02 13:30 | NUR ---
NURSE NOTES: Consent obtained from Next of Kin for PICC line placement, Radiology called and notified of order. report received from MARGY aguillon. patient intubated at the bedside by ER doctor, successful attempt with an 7.5/23cm, patient has a right hand 22G IV placed by RN during intubation, will continue to monitor.
[2018-06-02] MEDS ORDERED: Vancomycin 750mg/NS 275ml 250 ML IVPB SCH (14:00)
[2018-06-02] MEDS ORDERED: LORazepam Inj 2mg/ml 1ml IV PRN (14:15)
--- NOTE | 2018-06-02 14:18 | Diagnostic Imaging Report ---
Indication: Post nasogastric tube placement Technique: Supine view of the abdomen Comparison: none Findings: Nasogastric tube is coiled in the stomach, shaft projecting as far as the gastric antrum, tip coiled retrograde in the gastric antrum and body. Extensive opacity is demonstrated in the right lung base, likely combination of pleural fluid, atelectasis, consolidation. The visualized bowel gas is unremarkable Impression: Satisfactory position of nasogastric tube Pulmonary findings as described, also described on recent chest radiograph
[2018-06-02] MEDS ORDERED: Heparin 2000 units/Ns 1000ml INJ SCH (15:00)
[2018-06-02] MEDS ORDERED: Lidocaine 1% Plain 30 ml INJ SCH (15:00)
--- NOTE | 2018-06-02 15:30 | NUR ---
NURSE NOTES: PICC line placed on right upper arms for Blood draws and IV infusion, patient has a right hand 22G IV with no blood return present.
--- NOTE | 2018-06-02 15:59 | NUR ---
Social Service Note Patient transferred to ICU for intubation. Patient is a [facility] resident of [facility] [phone] 06/2014. SW left a message for medical records at [facility] for a copy of patient's POLST and DPOA documentation. Listed DPOA Facundo Motley. Patient is currently full code. Will continue to monitor and reassess as needed.
--- NOTE | 2018-06-02 16:24 | Diagnostic Imaging Report ---
Indications: Needs long-term IV access Technique: Procedure performed at bedside. Procedural timeout performed. Ultrasound confirms patent compressible right basilic vein. Total sterile technique, including sterile probe cover and sterile gel, sterile gloves, hand hygiene, hat, mask,, sterile gown, large sterile drape, and preparation with 2% chlorhexidine utilized. Local anesthesia with 1% lidocaine. Under real-time ultrasound guidance, puncture is a vein using 21-gauge needle, passage 0.018 guidewire, exchange for 5 [place] peel-away sheath. 5 [place] Bard dual-lumen power PICC cut to 30 cm. It was inserted through the peel-away sheath. Peel-away sheath and guidewire removed. Catheter fixed to the skin. Both catheter ports aspirated and flushed. Patient tolerated procedure well, without immediate complication. Followup chest x-ray obtained, documents catheter tip position at the Note also that chest radiograph demonstrates ET tube tip possibly in the right mainstem bronchus orifice; the position of the genet is difficult to visualize but based on anatomic landmarks and previous radiograph appears likely too low Impression: Successful bedside placement of right arm PICC under sonographic guidance, as described above, suitable for use. Suspect low position of the endotracheal tube. Retraction and repeat chest radiograph recommended Findings discussed with charge nurse Leighann in the ICU at the time of interpretation
--- NOTE | 2018-06-02 16:42 | NUR ---
NURSE NOTES: Dr. Estrada called to notify patient endotracheal tube needs to be pulled back 3 cm, currently the et-tube is 23cm with a 7.5. RT, Katty, notified and pulled et tube to 20cm and follow up chest x-ray to be done, will continue plan of care.
--- NOTE | 2018-06-02 16:53 | Diagnostic Imaging Report ---
Indication: Post intubation Technique: One view of the chest Comparison: 5 hours earlier Findings: Interim endotracheal intubation, endotracheal tube tip projecting probably the level of the right mainstem bronchus, although the genet is not well visualized. There is improved aeration of the right lung. Large right pleural effusion persists. Interstitial congestive changes persist. Interim placement of a nasogastric tube, tip projecting beyond the edge of image, presumably in good position Impression: Low position of endotracheal tube, slight withdrawal recommended. This critical value finding was previously discussed by phone with ICU nurse
--- NOTE | 2018-06-02 18:23 | Diagnostic Imaging Report ---
Indication: Post adjustment of previously malpositioned endotracheal tube Technique: One view of the chest Comparison: One hour earlier Findings: Persistent low position of endotracheal tube, tip projecting at the right mainstem bronchus orifice. Other findings are unchanged Impression: Persistent low position of endotracheal tube. Additional retraction recommended Findings discussed by phone with ICU charge nurse Leighann barrera
--- NOTE | 2018-06-02 18:48 | Diagnostic Imaging Report ---
Indication: Post endotracheal tube is just Technique: One view of the chest Comparison: 1 1/2 hours earlier Findings: Improved and now satisfactory position of endotracheal tube, tip projecting approximately 4 cm above the genet. There is suggestion of slightly improved aeration of the right lung. Other findings are unchanged Impression: Improved and now satisfactory position of the endotracheal tube ICU charge nurse notified at the time of interpretation
--- NOTE | 2018-06-02 19:30 | NUR ---
NURSE NOTES:received pt still remained sedated, orally intubated on ac mode, ST low, Bp stable, slightl febrile 100.4F , cooling measures started,NPO NGT clamped. Sinclair to gravity with yellowish urine, minimal in amt. Dr Reed was aware . Family at bedside. updated with pts condition, verbalized understanding. Pt with DTI sacral area, covered with optifoam, turned q 2hrs prn with good skin care done.Will continue to monitor.
--- NOTE | 2018-06-02 19:53 | NUR ---
RESPIRATORY NOTE: Received pt. on 840 vent. Vent settings are: A/C rate of 12, Vt 500, FI02 50%, PEEP +5. Pt. Sp02 @ 100, No respiratory distress noted. Ambu bag @ bs. Moderate amount of secretions. Vent plugged on red outlet. Will continue to monitor pt.
--- NOTE | 2018-06-02 19:56 | Cardiology Progress Note ---
Assessment/Plan Assessment/Plan COPD, congestive heart failure, atrial fibrillation sinus tachy agitation right lung collapse? cxr reviewed ekg reviewd intubeted today due to respiratory failure chest pt dvt ppx all trop neg cr is normal is npo in on low dose ivf is off diuretic as was dry at admission d/w rn d/w family Subjective ROS Limited/Unobtainable: Yes Subjective on a vent in [facility] icu family at bedside Objective Last 24 Hour Vital Signs Date Time Temp Pulse Resp B/P (MAP) Pulse Ox O2 Delivery O2 Flow Rate FiO2 06/02/18 19:52 108 12 100 Mechanical Ventilator 100 06/02/18 19:35 109 12 100 Mechanical Ventilator 100 06/02/18 19:34 120 12 100 06/02/18 18:21 109 161/66 06/02/18 18:15 50 06/02/18 18:00 109 14 161/66 (97) 100 06/02/18 17:12 101 20 100 06/02/18 17:00 109 12 162/69 (100) 96 06/02/18 16:30 50 06/02/18 16:00 50 06/02/18 16:00 106 06/02/18 16:00 Mechanical Ventilator Mechanical Ventilator 06/02/18 16:00 98.1 108 13 166/70 (102) 99 06/02/18 15:00 107 13 152/71 (98) 96 06/02/18 14:35 97 20 100 06/02/18 14:00 109 14 141/54 (83) 87 06/02/18 13:30 Mechanical Ventilator Mechanical Ventilator 06/02/18 13:00 98 12 100 06/02/18 13:00 98 12 100 Mechanical Ventilator 100 06/02/18 13:00 98 12 100 Mechanical Ventilator 100 06/02/18 13:00 102 19 216/173 (187) 100 06/02/18 12:45 104 06/02/18 12:45 100 06/02/18 12:00 Bi-pap 06/02/18 12:00 98.1 101 24 145/82 (103) 93 06/02/18 12:00 50 06/02/18 11:47 107 06/02/18 11:34 96 23 98 Facial 50 06/02/18 09:21 88 144/71 06/02/18 08:00 88 06/02/18 08:00 97.2 93 24 144/71 (95) 97 06/02/18 08:00 Bi-pap 06/02/18 08:00 50 06/02/18 07:39 100 21 99 Bi-pap 50 06/02/18 07:26 87 24 97 Bi-pap 50 06/02/18 05:17 95 22 95 Facial 40 06/02/18 04:00 50 06/02/18 04:00 97.8 97 20 143/78 (99) 97 06/02/18 04:00 Bi-pap 06/02/18 03:27 95 06/02/18 03:16 98 24 Bi-pap 40 06/02/18 03:14 98 24 96 Facial 40 06/02/18 01:28 94 22 99 Facial 40 06/02/18 00:00 Bi-pap 06/02/18 00:00 96 06/02/18 00:00 97.8 91 22 133/70 (91) 99 06/02/18 00:00 50 06/01/18 23:55 96 26 98 Bi-pap 50 06/01/18 23:48 96 26 97 Bi-pap 50 06/01/18 22:48 91 24 100 Facial 40 06/01/18 21:32 99 24 99 Facial 40 06/01/18 21:30 50 06/01/18 20:00 Bi-pap 06/01/18 20:00 98.0 105 36 140/67 (91) 99 General Appearance: no apparent distress, on vent Neck: supple Cardiovascular: normal rate Respiratory/Chest: rhonchi - bilaterally Abdomen: normal bowel sounds, non tender, soft Extremities: no swelling Intake and Output 06/01/18 06/02/18 19:00 07:00 Intake Total 1283.334 ml 1032.500 ml Output Total 450 ml 400 ml Balance 833.334 ml 632.500 ml Intake Oral 0 ml 0 ml IV Total 1283.334 ml 1032.500 ml Output Urine Total 450 ml 400 ml Laboratory Tests Test 06/02/18 03:20 06/02/18 16:00 White Blood Count 7.3 K/UL (4.8-10.8) Red Blood Count 4.78 M/UL (4.20-5.40) Hemoglobin 10.3 G/DL (12.0-16.0) L Hematocrit 34.6 % (37.0-47.0) L Mean Corpuscular Volume 72 FL (80-99) L Mean Corpuscular Hemoglobin 21.6 PG (27.0-31.0) L Mean Corpuscular Hemoglobin Concent 29.8 G/DL (32.0-36.0) L Red Cell Distribution Width 15.4 % (11.6-14.8) H Platelet Count 204 K/UL (150-450) Mean Platelet Volume 8.1 FL (6.5-10.1) Neutrophils (%) (Auto) 65.3 % (45.0-75.0) Lymphocytes (%) (Auto) 21.9 % (20.0-45.0) Monocytes (%) (Auto) 8.8 % (1.0-10.0) Eosinophils (%) (Auto) 3.1 % (0.0-3.0) H Basophils (%) (Auto) 0.9 % (0.0-2.0) Sodium Level 147 MMOL/L (136-145) H Potassium Level 3.9 MMOL/L (3.5-5.1) Chloride Level 107 MMOL/L (98-107) Carbon Dioxide Level 37 MMOL/L (21-32) H Anion Gap 3 mmol/L (5-15) L Blood Urea Nitrogen 23 mg/dL (7-18) H Creatinine 0.9 MG/DL (0.55-1.30) Estimat Glomerular Filtration Rate mL/min (>60) Glucose Level 87 MG/DL (74-106) Hemoglobin A1c 5.9 % (4.3-6.0) Uric Acid 5.4 MG/DL (2.6-7.2) Calcium Level 8.9 MG/DL (8.5-10.1) Phosphorus Level 2.2 MG/DL (2.5-4.9) L Magnesium Level 1.8 MG/DL (1.8-2.4) Iron Level 29 ug/dL (50-175) L Total Iron Binding Capacity 111 ug/dL (250-450) L Percent Iron Saturation 26 % (15-50) Unsaturated Iron Binding 82 ug/dL (112-346) L Ferritin 318 NG/ML (8-388) Total Bilirubin 0.2 MG/DL (0.2-1.0) Gamma Glutamyl Transpeptidase < 3 U/L (5-85) L Aspartate Amino Transf (AST/SGOT) 13 U/L (15-37) L Alanine Aminotransferase (ALT/SGPT) 13 U/L (12-78) Alkaline Phosphatase 61 U/L (46-116) Total Creatine Kinase 19 U/L (26-308) L Troponin I 0.017 ng/mL (0.000-0.056) C-Reactive Protein, Quantitative 12.0 mg/dL (0.00-0.90) H Pro-B-Type Natriuretic Peptide 1117 pg/mL (0-125) H Total Protein 6.4 G/DL (6.4-8.2) Albumin 2.5 G/DL (3.4-5.0) L Globulin 3.9 g/dL Albumin/Globulin Ratio 0.6 (1.0-2.7) L Triglycerides Level 179 MG/DL (30-150) H Cholesterol Level 197 MG/DL (< 200) LDL Cholesterol 125 mg/dL (<100) H HDL Cholesterol 38 MG/DL (40-60) L Cholesterol/HDL Ratio 5.2 (3.3-4.4) H Vitamin B12 Level > 2000 PG/ML (193-986) H Folate 12.0 NG/ML (8.6-58.9) Thyroid Stimulating Hormone (TSH) 0.871 uiU/mL (0.358-3.740) Arterial Blood pH 7.458 (7.350-7.450) Arterial Blood Partial Pressure CO2 46.9 mmHg (35.0-45.0) H Arterial Blood Partial Pressure O2 426.6 mmHg (75.0-100.0) H Arterial Blood HCO3 32.5 mmol/L (22.0-26.0) H Arterial Blood Oxygen Saturation 99.2 % (95-100) Arterial Blood Base Excess 7.6 (-2-2) H David Test Positive Geoffrey Sandhu MD Jun 02, 2018 19:56
[2018-06-02] MEDS: Dyna-Hex 2% Top Sol 2oz TOPIC SCH (20:26)
--- NOTE | 2018-06-02 20:33 | General Progress Note ---
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 Subjective Neurologic/Psychiatric: Reports: anxiety Allergies: Coded Allergies: Mushroom (Verified Allergy, Severe, 05/28/18) MORPHINE (Unverified Allergy, Intermediate, Itching, 01/04/15) PENICILLINS (Unverified Allergy, Intermediate, Hives, 01/04/15) CELECOXIB (Verified Allergy, Mild, 01/15/09) Subjective intubated and agitated confused Objective Last 24 Hour Vital Signs Date Time Temp Pulse Resp B/P (MAP) Pulse Ox O2 Delivery O2 Flow Rate FiO2 06/02/18 19:52 108 12 100 Mechanical Ventilator 50 06/02/18 19:35 109 12 100 Mechanical Ventilator 50 06/02/18 19:34 120 12 100 06/02/18 18:21 109 161/66 06/02/18 18:15 50 06/02/18 18:00 109 14 161/66 (97) 100 06/02/18 17:12 101 20 100 06/02/18 17:00 109 12 162/69 (100) 96 06/02/18 16:30 50 06/02/18 16:00 50 06/02/18 16:00 106 06/02/18 16:00 Mechanical Ventilator Mechanical Ventilator 06/02/18 16:00 98.1 108 13 166/70 (102) 99 06/02/18 15:00 107 13 152/71 (98) 96 06/02/18 14:35 97 20 100 06/02/18 14:00 109 14 141/54 (83) 87 06/02/18 13:30 Mechanical Ventilator Mechanical Ventilator 06/02/18 13:00 98 12 100 06/02/18 13:00 98 12 100 Mechanical Ventilator 100 06/02/18 13:00 98 12 100 Mechanical Ventilator 100 06/02/18 13:00 102 19 216/173 (187) 100 06/02/18 12:45 104 06/02/18 12:45 100 06/02/18 12:00 Bi-pap 06/02/18 12:00 98.1 101 24 145/82 (103) 93 06/02/18 12:00 50 06/02/18 11:47 107 06/02/18 11:34 96 23 98 Facial 50 06/02/18 09:21 88 144/71 06/02/18 08:00 88 06/02/18 08:00 97.2 93 24 144/71 (95) 97 06/02/18 08:00 Bi-pap 06/02/18 08:00 50 06/02/18 07:39 100 21 99 Bi-pap 50 06/02/18 07:26 87 24 97 Bi-pap 50 06/02/18 05:17 95 22 95 Facial 40 06/02/18 04:00 50 06/02/18 04:00 97.8 97 20 143/78 (99) 97 06/02/18 04:00 Bi-pap 06/02/18 03:27 95 06/02/18 03:16 98 24 Bi-pap 40 06/02/18 03:14 98 24 96 Facial 40 06/02/18 01:28 94 22 99 Facial 40 06/02/18 00:00 Bi-pap 06/02/18 00:00 96 06/02/18 00:00 97.8 91 22 133/70 (91) 99 06/02/18 00:00 50 06/01/18 23:55 96 26 98 Bi-pap 50 06/01/18 23:48 96 26 97 Bi-pap 50 06/01/18 22:48 91 24 100 Facial 40 06/01/18 21:32 99 24 99 Facial 40 06/01/18 21:30 50 Intake and Output 06/01/18 06/02/18 19:00 07:00 Intake Total 1283.334 ml 1032.500 ml Output Total 450 ml 400 ml Balance 833.334 ml 632.500 ml Intake Oral 0 ml 0 ml IV Total 1283.334 ml 1032.500 ml Output Urine Total 450 ml 400 ml Laboratory Tests 06/02/18 03:20: White Blood Count 7.3, Red Blood Count 4.78, Hemoglobin 10.3L, Hematocrit 34.6L , Mean Corpuscular Volume 72L, Mean Corpuscular Hemoglobin 21.6L, Mean Corpuscular Hemoglobin Concent 29.8L, Red Cell Distribution Width 15.4H, Platelet Count 204, Mean Platelet Volume 8.1, Neutrophils (%) (Auto) 65.3, Lymphocytes (%) (Auto) 21.9, Monocytes (%) (Auto) 8.8, Eosinophils (%) (Auto) 3.1H, Basophils (%) (Auto) 0.9, Sodium Level 147H, Potassium Level 3.9, Chloride Level 107, Carbon Dioxide Level 37H, Anion Gap 3L, Blood Urea Nitrogen 23H, Creatinine 0.9, Estimat Glomerular Filtration Rate , Glucose Level 87, Hemoglobin A1c 5.9, Uric Acid 5.4, Calcium Level 8.9, Phosphorus Level 2.2L, Magnesium Level 1.8, Iron Level 29L, Total Iron Binding Capacity 111L, Percent Iron Saturation 26, Unsaturated Iron Binding 82L, Ferritin 318, Total Bilirubin 0.2, Gamma Glutamyl Transpeptidase < 3L, Aspartate Amino Transf (AST/SGOT) 13L, Alanine Aminotransferase (ALT/SGPT) 13, Alkaline Phosphatase 61, Total Creatine Kinase 19L, Troponin I 0.017, C-Reactive Protein, Quantitative 12.0H, Pro-B- Type Natriuretic Peptide 1117H, Total Protein 6.4, Albumin 2.5L, Globulin 3.9, Albumin/Globulin Ratio 0.6L, Triglycerides Level 179H, Cholesterol Level 197, LDL Cholesterol 125H, HDL Cholesterol 38L, Cholesterol/HDL Ratio 5.2H, Vitamin B12 Level > 2000H, Folate 12.0, Thyroid Stimulating Hormone (TSH) 0.871 06/02/18 16:00: Arterial Blood pH 7.458H, Arterial Blood Partial Pressure CO2 46.9H, Arterial Blood Partial Pressure O2 426.6H, Arterial Blood HCO3 32.5H, Arterial Blood Oxygen Saturation 99.2, Arterial Blood Base Excess 7.6H, David Test Positive Height (Feet): 5 Height (Inches): 4.00 Weight (Pounds): 118 General Appearance: confused, agitated Liz Lo MD Jun 02, 2018 20:33
--- NOTE | 2018-06-02 20:54 | NUR ---
NURSE NOTES:called Dr Sandhu for prn meds for high blood pressure.
--- NOTE | 2018-06-02 20:55 | General Progress Note ---
Assessment/Plan Status: deteriorating Assessment/Plan This is an 87-year-old female admitted with chronic obstructive pulmonary disease exacerbation, right lower lobe infiltrate/pneumonia with altered mental status and acute kidney injury. The patient will be admitted to [facility] with the following medical problems. 1. Chronic obstructive pulmonary disease exacerbation and pneumonia. The patient has been seen by Pulmonary. Infectious Disease has been consulted, pancultured. IV antibiotics per ID. Continue with BiPAP and suction p.r.n. Transition to Venturi-mask when stable. 2. Acute kidney injury. We will monitor I's and O's, gentle intravenous fluids. Repeat a BMP in a.m. Consider Nephrology consult. 3. History of chronic atrial fibrillation. Continue with amiodarone. The patient is in sinus rhythm at this time. 4. History of hypertension. Continue with amlodipine and hold for systolic blood pressure less than 110. 5. Altered mental status, most likely from above conditions. We will keep n.p.o. except for medications and start IV fluids. 6. DVT prophylaxis with heparin subcutaneous and SCDs. 7. The patient is Full Code per policy. We will discuss with the family. Plan: - now in ICU on VENT support - continue present care - iV antibioitics and fluids - NGT placed for nutrition pattient is full code per family's wish discussed with family and Dr. Sandhu Subjective Date patient seen: Jun 02, 2018 ROS Limited/Unobtainable: Yes Allergies: Coded Allergies: Mushroom (Verified Allergy, Severe, 05/28/18) MORPHINE (Unverified Allergy, Intermediate, Itching, 01/04/15) PENICILLINS (Unverified Allergy, Intermediate, Hives, 01/04/15) CELECOXIB (Verified Allergy, Mild, 01/15/09) Subjective patient with acute respiratory failure now intubated and transfered to ICU Objective Last 24 Hour Vital Signs Date Time Temp Pulse Resp B/P (MAP) Pulse Ox O2 Delivery O2 Flow Rate FiO2 06/02/18 19:52 108 12 100 Mechanical Ventilator 50 06/02/18 19:35 109 12 100 Mechanical Ventilator 50 06/02/18 19:34 120 12 100 06/02/18 18:21 109 161/66 06/02/18 18:15 50 06/02/18 18:00 109 14 161/66 (97) 100 06/02/18 17:12 101 20 100 06/02/18 17:00 109 12 162/69 (100) 96 06/02/18 16:30 50 06/02/18 16:00 50 06/02/18 16:00 106 06/02/18 16:00 Mechanical Ventilator Mechanical Ventilator 06/02/18 16:00 98.1 108 13 166/70 (102) 99 06/02/18 15:00 107 13 152/71 (98) 96 06/02/18 14:35 97 20 100 06/02/18 14:00 109 14 141/54 (83) 87 06/02/18 13:30 Mechanical Ventilator Mechanical Ventilator 06/02/18 13:00 98 12 100 06/02/18 13:00 98 12 100 Mechanical Ventilator 100 06/02/18 13:00 98 12 100 Mechanical Ventilator 100 06/02/18 13:00 102 19 216/173 (187) 100 06/02/18 12:45 104 06/02/18 12:45 100 06/02/18 12:00 Bi-pap 06/02/18 12:00 98.1 101 24 145/82 (103) 93 06/02/18 12:00 50 06/02/18 11:47 107 06/02/18 11:34 96 23 98 Facial 50 06/02/18 09:21 88 144/71 06/02/18 08:00 88 06/02/18 08:00 97.2 93 24 144/71 (95) 97 06/02/18 08:00 Bi-pap 06/02/18 08:00 50 06/02/18 07:39 100 21 99 Bi-pap 50 06/02/18 07:26 87 24 97 Bi-pap 50 06/02/18 05:17 95 22 95 Facial 40 06/02/18 04:00 50 06/02/18 04:00 97.8 97 20 143/78 (99) 97 06/02/18 04:00 Bi-pap 06/02/18 03:27 95 06/02/18 03:16 98 24 Bi-pap 40 06/02/18 03:14 98 24 96 Facial 40 06/02/18 01:28 94 22 99 Facial 40 06/02/18 00:00 Bi-pap 06/02/18 00:00 96 06/02/18 00:00 97.8 91 22 133/70 (91) 99 06/02/18 00:00 50 06/01/18 23:55 96 26 98 Bi-pap 50 06/01/18 23:48 96 26 97 Bi-pap 50 06/01/18 22:48 91 24 100 Facial 40 06/01/18 21:32 99 24 99 Facial 40 06/01/18 21:30 50 Intake and Output 06/01/18 06/02/18 19:00 07:00 Intake Total 1283.334 ml 1032.500 ml Output Total 450 ml 400 ml Balance 833.334 ml 632.500 ml Intake Oral 0 ml 0 ml IV Total 1283.334 ml 1032.500 ml Output Urine Total 450 ml 400 ml Laboratory Tests 06/02/18 03:20: White Blood Count 7.3, Red Blood Count 4.78, Hemoglobin 10.3L, Hematocrit 34.6L , Mean Corpuscular Volume 72L, Mean Corpuscular Hemoglobin 21.6L, Mean Corpuscular Hemoglobin Concent 29.8L, Red Cell Distribution Width 15.4H, Platelet Count 204, Mean Platelet Volume 8.1, Neutrophils (%) (Auto) 65.3, Lymphocytes (%) (Auto) 21.9, Monocytes (%) (Auto) 8.8, Eosinophils (%) (Auto) 3.1H, Basophils (%) (Auto) 0.9, Sodium Level 147H, Potassium Level 3.9, Chloride Level 107, Carbon Dioxide Level 37H, Anion Gap 3L, Blood Urea Nitrogen 23H, Creatinine 0.9, Estimat Glomerular Filtration Rate , Glucose Level 87, Hemoglobin A1c 5.9, Uric Acid 5.4, Calcium Level 8.9, Phosphorus Level 2.2L, Magnesium Level 1.8, Iron Level 29L, Total Iron Binding Capacity 111L, Percent Iron Saturation 26, Unsaturated Iron Binding 82L, Ferritin 318, Total Bilirubin 0.2, Gamma Glutamyl Transpeptidase < 3L, Aspartate Amino Transf (AST/SGOT) 13L, Alanine Aminotransferase (ALT/SGPT) 13, Alkaline Phosphatase 61, Total Creatine Kinase 19L, Troponin I 0.017, C-Reactive Protein, Quantitative 12.0H, Pro-B- Type Natriuretic Peptide 1117H, Total Protein 6.4, Albumin 2.5L, Globulin 3.9, Albumin/Globulin Ratio 0.6L, Triglycerides Level 179H, Cholesterol Level 197, LDL Cholesterol 125H, HDL Cholesterol 38L, Cholesterol/HDL Ratio 5.2H, Vitamin B12 Level > 2000H, Folate 12.0, Thyroid Stimulating Hormone (TSH) 0.871 06/02/18 16:00: Arterial Blood pH 7.458H, Arterial Blood Partial Pressure CO2 46.9H, Arterial Blood Partial Pressure O2 426.6H, Arterial Blood HCO3 32.5H, Arterial Blood Oxygen Saturation 99.2, Arterial Blood Base Excess 7.6H, David Test Positive Height (Feet): 5 Height (Inches): 4.00 Weight (Pounds): 118 General Appearance: no apparent distress, alert EENT: PERRL/EOMI, pharynx normal Neck: non-tender, supple Cardiovascular: normal rate, regular rhythm, no gallop/murmur, no JVD Respiratory/Chest: decreased breath sounds Abdomen: non tender, soft, no mass Extremities: normal range of motion Edema: no edema noted Arm (L), no edema noted Arm (R), no edema noted Leg (L), no edema noted Leg (R), no edema noted Pedal (L), no edema noted Pedal (R), no edema noted Generalized Neurologic: other Skin: normal pigmentation Lymphatic: normal anterior cervical (L), normal anterior cervical (R), normal posterior cervical (L), normal posterior cervical (R), normal submandibular (L) , normal submandibular (R), normal supraclavicular (L), normal supraclavicular ( R), normal axillary (L), normal axillary (R), normal inguinal (L), normal inguinal (R), normal other Cruz Valderrama MD Jun 02, 2018 20:55
--- NOTE | 2018-06-02 20:59 | NUR ---
NURSE NOTES:dr Adame was here and evaluated pt, was aware of pts SBP 160-220- awaiting for Dr. Sandhu to call back.
--- NOTE | 2018-06-02 21:01 | General Progress Note ---
Assessment/Plan Assessment/Plan GI CONSULT ATS for PEG placement Assessment - Resp failure - NGT dependent - COPD - CHF - PNA - Anemia - Poor prognosis Recommendations - Begin NGT feeds - Vent care - Elevated HOB - Monitor residuals - Abx - Pulmonary toilet - Await family decision re PEG Thank you Panchito Rahman MD Subjective Allergies: Coded Allergies: Mushroom (Verified Allergy, Severe, 05/28/18) MORPHINE (Unverified Allergy, Intermediate, Itching, 01/04/15) PENICILLINS (Unverified Allergy, Intermediate, Hives, 01/04/15) CELECOXIB (Verified Allergy, Mild, 01/15/09) Objective Last 24 Hour Vital Signs Date Time Temp Pulse Resp B/P (MAP) Pulse Ox O2 Delivery O2 Flow Rate FiO2 06/02/18 19:52 108 12 100 Mechanical Ventilator 50 06/02/18 19:35 109 12 100 Mechanical Ventilator 50 06/02/18 19:34 120 12 100 06/02/18 18:21 109 161/66 06/02/18 18:15 50 06/02/18 18:00 109 14 161/66 (97) 100 06/02/18 17:12 101 20 100 06/02/18 17:00 109 12 162/69 (100) 96 06/02/18 16:30 50 06/02/18 16:00 50 06/02/18 16:00 106 06/02/18 16:00 Mechanical Ventilator Mechanical Ventilator 06/02/18 16:00 98.1 108 13 166/70 (102) 99 06/02/18 15:00 107 13 152/71 (98) 96 06/02/18 14:35 97 20 100 06/02/18 14:00 109 14 141/54 (83) 87 06/02/18 13:30 Mechanical Ventilator Mechanical Ventilator 06/02/18 13:00 98 12 100 06/02/18 13:00 98 12 100 Mechanical Ventilator 100 06/02/18 13:00 98 12 100 Mechanical Ventilator 100 06/02/18 13:00 102 19 216/173 (187) 100 06/02/18 12:45 104 06/02/18 12:45 100 06/02/18 12:00 Bi-pap 06/02/18 12:00 98.1 101 24 145/82 (103) 93 06/02/18 12:00 50 06/02/18 11:47 107 06/02/18 11:34 96 23 98 Facial 50 06/02/18 09:21 88 144/71 06/02/18 08:00 88 06/02/18 08:00 97.2 93 24 144/71 (95) 97 06/02/18 08:00 Bi-pap 06/02/18 08:00 50 06/02/18 07:39 100 21 99 Bi-pap 50 06/02/18 07:26 87 24 97 Bi-pap 50 06/02/18 05:17 95 22 95 Facial 40 06/02/18 04:00 50 06/02/18 04:00 97.8 97 20 143/78 (99) 97 06/02/18 04:00 Bi-pap 06/02/18 03:27 95 06/02/18 03:16 98 24 Bi-pap 40 06/02/18 03:14 98 24 96 Facial 40 06/02/18 01:28 94 22 99 Facial 40 06/02/18 00:00 Bi-pap 06/02/18 00:00 96 06/02/18 00:00 97.8 91 22 133/70 (91) 99 06/02/18 00:00 50 06/01/18 23:55 96 26 98 Bi-pap 50 06/01/18 23:48 96 26 97 Bi-pap 50 06/01/18 22:48 91 24 100 Facial 40 06/01/18 21:32 99 24 99 Facial 40 06/01/18 21:30 50 Intake and Output 06/01/18 06/02/18 19:00 07:00 Intake Total 1283.334 ml 1032.500 ml Output Total 450 ml 400 ml Balance 833.334 ml 632.500 ml Intake Oral 0 ml 0 ml IV Total 1283.334 ml 1032.500 ml Output Urine Total 450 ml 400 ml Laboratory Tests 06/02/18 03:20: White Blood Count 7.3, Red Blood Count 4.78, Hemoglobin 10.3L, Hematocrit 34.6L , Mean Corpuscular Volume 72L, Mean Corpuscular Hemoglobin 21.6L, Mean Corpuscular Hemoglobin Concent 29.8L, Red Cell Distribution Width 15.4H, Platelet Count 204, Mean Platelet Volume 8.1, Neutrophils (%) (Auto) 65.3, Lymphocytes (%) (Auto) 21.9, Monocytes (%) (Auto) 8.8, Eosinophils (%) (Auto) 3.1H, Basophils (%) (Auto) 0.9, Sodium Level 147H, Potassium Level 3.9, Chloride Level 107, Carbon Dioxide Level 37H, Anion Gap 3L, Blood Urea Nitrogen 23H, Creatinine 0.9, Estimat Glomerular Filtration Rate , Glucose Level 87, Hemoglobin A1c 5.9, Uric Acid 5.4, Calcium Level 8.9, Phosphorus Level 2.2L, Magnesium Level 1.8, Iron Level 29L, Total Iron Binding Capacity 111L, Percent Iron Saturation 26, Unsaturated Iron Binding 82L, Ferritin 318, Total Bilirubin 0.2, Gamma Glutamyl Transpeptidase < 3L, Aspartate Amino Transf (AST/SGOT) 13L, Alanine Aminotransferase (ALT/SGPT) 13, Alkaline Phosphatase 61, Total Creatine Kinase 19L, Troponin I 0.017, C-Reactive Protein, Quantitative 12.0H, Pro-B- Type Natriuretic Peptide 1117H, Total Protein 6.4, Albumin 2.5L, Globulin 3.9, Albumin/Globulin Ratio 0.6L, Triglycerides Level 179H, Cholesterol Level 197, LDL Cholesterol 125H, HDL Cholesterol 38L, Cholesterol/HDL Ratio 5.2H, Vitamin B12 Level > 2000H, Folate 12.0, Thyroid Stimulating Hormone (TSH) 0.871 06/02/18 16:00: Arterial Blood pH 7.458H, Arterial Blood Partial Pressure CO2 46.9H, Arterial Blood Partial Pressure O2 426.6H, Arterial Blood HCO3 32.5H, Arterial Blood Oxygen Saturation 99.2, Arterial Blood Base Excess 7.6H, David Test Positive Height (Feet): 5 Height (Inches): 4.00 Weight (Pounds): 118 Panchito Rahman MD Jun 02, 2018 21:01
--- NOTE | 2018-06-02 23:00 | NUR ---
NURSE NOTES:Fi02 down to 45%, 02 sat >95%.
[2018-06-03] VITALS (23 sets, daily range): BP systolic 98–153; BP diastolic 51–81
--- NOTE | 2018-06-03 | NUR ---
NURSE NOTES: NGt fdg were started Omolite 1.5 at 20ml/hr. Checked NGT placement first prior to fdg and its in place.
--- NOTE | 2018-06-03 | NUR ---
NURSE NOTES: dcd freedom restraints and replaced with soft wrist retraints. Pt more easily arousable and restless at this time. Dr Craft was aware.
[2018-06-03] MEDS: Albuterol/Ipratropium 3ml neb HHN SCH ×4 (01:12→19:45)
--- NOTE | 2018-06-03 02:00 | NUR ---
NURSE NOTES:Suctioned tk whitish with blood tinged secretions . BIblocked was maintained due to pts constantly biting ett.
--- NOTE | 2018-06-03 02:00 | NUR ---
NURSE NOTES:Vanco level 28.9- Vanco IV on hold.
--- NOTE | 2018-06-03 03:46 | NUR ---
NURSE NOTES:bp 130/51 ST low 100s afebrile. More urine output coming out at this time.
--- NOTE | 2018-06-03 05:00 | NUR ---
NURSE NOTES:Complete bath with bed changed done.
[2018-06-03 05:48] LABS: BASOPHILS % (AUTO) 0.9 % (0.0-2.0); EOSINOPHILS % (AUTO) 3.1 % (0.0-3.0); HEMATOCRIT 31.8 % (37.0-47.0); HEMOGLOBIN 9.7 G/DL (12.0-16.0); LYMPHOCYTES % (AUTO) 23.8 % (20.0-45.0); MEAN CORPUSCULAR VOLUME 70 FL (80-99); MONOCYTES % (AUTO) 7.3 % (1.0-10.0); NEUTROPHILS % (AUTO) 64.9 % (45.0-75.0); PLATELET COUNT 206 K/UL (150-450); RED BLOOD COUNT 4.53 M/UL (4.20-5.40); RED CELL DISTRIBUTION WIDTH 14.6 % (11.6-14.8); WHITE BLOOD COUNT 9.8 K/UL (4.8-10.8)
--- NOTE | 2018-06-03 06:00 | NUR ---
NURSE NOTES:Picture taken done with pts sacral dTI.
[2018-06-03 06:05] LABS: ALANINE AMINOTRANSFERASE 10 U/L (12-78); ALBUMIN 2.3 G/DL (3.4-5.0); ALBUMIN/GLOBULIN RATIO 0.7 (1.0-2.7); ALKALINE PHOSPHATASE 53 U/L (46-116); ANION GAP 6 mmol/L (5-15); ASPARTATE AMINO TRANSFERASE 13 U/L (15-37); BILIRUBIN,TOTAL 0.5 MG/DL (0.2-1.0); BLOOD UREA NITROGEN 22 mg/dL (7-18); CALCIUM 8.7 MG/DL (8.5-10.1); CARBON DIOXIDE 35 MMOL/L (21-32); CHLORIDE 102 MMOL/L (98-107); CREATININE 1.1 MG/DL (0.55-1.30); PHOSPHORUS 1.5 MG/DL (2.5-4.9); POTASSIUM 3.2 MMOL/L (3.5-5.1); SODIUM 143 MMOL/L (136-145)
--- NOTE | 2018-06-03 07:00 | NUR ---
Received PT on Vent settings of ACVC VT 500, RR 12, FIO2 45%, PEEP +5. PT intubated with 7.5 ETT with a lip line of 21cm, secured by anchorfast. SX thin clear secretions PRN. Breath sounds reveal bilateral rhonchi throughout both lung simpson. PT currently tolerating vent well. Vent alarms on and audible. Vent plugged into red outlet. Will continue to monitor throughout the day.
--- NOTE | 2018-06-03 07:00 | Consultation ---
DATE OF CONSULTATION: 06/02/2018 GASTROENTEROLOGY CONSULTATION CONSULTING PHYSICIAN: Panchito Rahman M.D. CHIEF COMPLAINT: I was asked to see this patient by Dr. Cruz Valderrama for evaluation of feeding and possible gastrostomy tube placement. HISTORY OF PRESENT ILLNESS: The patient is a very unfortunate 87-year-old [place] woman, who was seen with her daughter at bedside. The patient was admitted for multiple issues and has been seen by Cardiology, Pulmonary, and Renal services as well as Internal Medicine. The patient has respiratory failure and now requires around the clock BiPAP. The patient's daughter stated that she has long-term respiratory failure, previously required BiPAP at night and now requires BiPAP around the clock. The patient has not been fed for about four to five days because of recurrent respiratory issues and this consultation was generated. I explained the indications, risks, alternatives, and possible complications of the gastrostomy tube procedure. The daughter wanted to discuss with the rest of family regarding long-term gastrostomy placement. Therefore, nasogastric tube was placed at bedside and the position was verified by aspiration of bilious material. KUB subsequently confirmed good position, but later today, the patient apparently had respiratory failure and has been since intubated. PAST MEDICAL HISTORY: History of atrial fibrillation, asthma, coronary artery disease, COPD, constipation, depression, degenerative joint disease, gastroesophageal reflux disease, arthritis, hypertension, MRSA infection, and joint replacement of bilateral hips. FAMILY HISTORY: Noncontributory. SOCIAL HISTORY: The patient has had no recent history of smoking or drinking. REVIEW OF SYSTEMS: Otherwise negative. PHYSICAL EXAMINATION: GENERAL: A debilitated elderly woman, seen in her room with her daughter at bedside. HEENT: Normocephalic and atraumatic. BiPAP mask was on her face. NECK: Supple. CHEST: Revealed scattered rhonchi and rales. CARDIOVASCULAR: Revealed a slightly tachycardic rate. ABDOMEN: Soft and nontender. EXTREMITIES: No edema. LABORATORY DATA: Noted. ASSESSMENT: This patient has respiratory failure and is not likely to be able to eat by mouth for some time. Family understand that the patient is not able to eat by mouth in the near future and perhaps permanently. Since the patient is now intubated, family to discuss further long-term goals and their decision. In the meantime, the patient could be supported with nutrition, IV antibiotics, pulmonary toilet, and multidisciplinary approach. RECOMMENDATIONS: 1. Begin tube feedings. 2. Elevate head of bed. 3. Monitor residuals from the respiratory toilet. 4. Antibiotics. 5. Await family decision regarding possible gastrostomy tube placement. Thank you for asking me to participate in the care of this patient. Panchito Rahman M.D. DR: RAHEEM JOB#: [id number] CC: PAMELA
--- NOTE | 2018-06-03 07:00 | NUR ---
NURSE NOTES:No resp distress noted vss.
--- NOTE | 2018-06-03 07:19 | NUR ---
HAND-OFF: Report given to Carlie Al using sbar.
--- NOTE | 2018-06-03 08:00 | NUR ---
NURSE NOTES: Received patient lethargic, reacting to stimulation. security monitor showing ST. Patient is intubated 7.5/21 cm lipline AC 12 VT 500 FiO2 45% Peep of 5. Lung sounds diminished bilaterally. Patient has R nare NGT. Osmolite 1.2 at 30 cc/hr. No residual noted. Increased to 40 cc/hr. Goal of feeding rate is 45 cc/hr. Patient turned and repositioned. Sinclair intact. Hypoactive bowel sounds present. R upper arm PICC line, D5W at 75 cc/hr. Bilateral restraints intact. Active range of motion present. Potassium of 3.[address] Jimenez. No new orders as of now. Will continue plan of care. HOB elevated, bed on lowest position, bed alarm on, call light within reach.
[2018-06-03] MEDS: Amiodarone 200mg tab ORAL SCH (09:00)
[2018-06-03] MEDS: Heparin 5000 units/ml inj SUBQ SCH ×2 (09:00→21:44)
[2018-06-03] MEDS: Cefepime HCl 1 GM in D5W 55 ML IV SCH (09:00)
[2018-06-03] MEDS: Pantoprazole Inj IV SCH (09:00)
[2018-06-03] MEDS ORDERED: Vancomycin 1gm/D5W 275ml IVPB SCH ×2 (09:00)
--- NOTE | 2018-06-03 09:20 | NUR ---
NURSE NOTES: ABG reported to Dr. Mariee.
--- NOTE | 2018-06-03 09:31 | Infectious Diseases Prog Note ---
Assessment/Plan Assessment/Plan 87 yo feamle with PMHx of COPD, HTN, and A.fib sent to the ED from her nuring home for SOB. Sepsis - Likely PNA 05/28/18 CXR with atalectasis vs consolidation in the right side. 06/01/18 CXR - Extensive right hemithorax opacification UA (-) Sputum Cx 05/28/18 - MRSA (Inf Neg) Urine legionella (-) Positive blood Cx - Likely contaminant BCx 05/28/18 - CoNS BCX 05/30/18 - NGTD Leukocytosis 15 on admit - now resolved Febrile to 101.5 - now resolved COPD CAD A. fib PLAN - Continue Cefepime #7 and vancomycin #7/ - Monitor CBC and Temps We will continue to follow Ms. Nowak during this hospitalization. Subjective Allergies: Coded Allergies: Mushroom (Verified Allergy, Severe, 05/28/18) MORPHINE (Unverified Allergy, Intermediate, Itching, 01/04/15) PENICILLINS (Unverified Allergy, Intermediate, Hives, 01/04/15) CELECOXIB (Verified Allergy, Mild, 01/15/09) Subjective In icu intubated - as she was not tolerating BiPAP Afebrile No Leukocytosis Objective Vital Signs Last 24 Hour Vital Signs Date Time Temp Pulse Resp B/P (MAP) Pulse Ox O2 Delivery O2 Flow Rate FiO2 06/03/18 08:50 100 13 45 06/03/18 08:00 Mechanical Ventilator Mechanical Ventilator Mechanical Ventilator 06/03/18 08:00 45 06/03/18 08:00 110 16 148/65 (92) 99 06/03/18 06:59 Mechanical Ventilator 45 06/03/18 06:59 Mechanical Ventilator 45 06/03/18 06:57 121 12 45 06/03/18 05:00 112 16 150/60 (90) 99 06/03/18 04:55 100 12 45 06/03/18 04:00 Mechanical Ventilator Mechanical Ventilator Mechanical Ventilator 06/03/18 04:00 99.0 110 16 140/70 (93) 99 06/03/18 04:00 45 06/03/18 04:00 110 06/03/18 03:57 100 12 45 06/03/18 03:00 108 12 130/51 (77) 99 06/03/18 02:00 111 12 132/51 (78) 99 06/03/18 01:22 107 12 99 T-piece 45 06/03/18 01:13 106 12 100 Mechanical Ventilator 45 06/03/18 01:12 100 12 45 06/03/18 01:00 111 12 153/71 (98) 99 06/03/18 00:00 45 06/03/18 00:00 111 06/03/18 00:00 Mechanical Ventilator Mechanical Ventilator Mechanical Ventilator 06/03/18 00:00 99.4 111 14 149/81 (103) 100 06/02/18 23:30 100 12 45 06/02/18 23:00 109 12 151/45 (80) 100 06/02/18 22:00 105 12 167/79 (108) 100 06/02/18 21:49 107 12 50 06/02/18 21:00 99.8 110 12 120/56 (77) 100 06/02/18 20:00 Mechanical Ventilator Mechanical Ventilator Mechanical Ventilator 06/02/18 20:00 50 06/02/18 20:00 100.2 108 14 165/80 (108) 100 06/02/18 19:52 108 12 100 Mechanical Ventilator 50 06/02/18 19:35 109 12 100 Mechanical Ventilator 50 06/02/18 19:34 120 12 50 06/02/18 18:21 109 161/66 06/02/18 18:15 50 06/02/18 18:00 109 14 161/66 (97) 100 06/02/18 17:12 101 20 100 06/02/18 17:00 109 12 162/69 (100) 96 06/02/18 16:30 50 06/02/18 16:00 50 06/02/18 16:00 106 06/02/18 16:00 Mechanical Ventilator Mechanical Ventilator 06/02/18 16:00 98.1 108 13 166/70 (102) 99 06/02/18 15:00 107 13 152/71 (98) 96 06/02/18 14:35 97 20 100 06/02/18 14:00 109 14 141/54 (83) 87 06/02/18 13:30 Mechanical Ventilator Mechanical Ventilator 06/02/18 13:00 98 12 100 06/02/18 13:00 98 12 100 Mechanical Ventilator 100 06/02/18 13:00 98 12 100 Mechanical Ventilator 100 06/02/18 13:00 102 19 216/173 (187) 100 06/02/18 12:45 104 06/02/18 12:45 100 06/02/18 12:00 Bi-pap 06/02/18 12:00 98.1 101 24 145/82 (103) 93 06/02/18 12:00 50 06/02/18 11:47 107 06/02/18 11:34 96 23 98 Facial 50 Height (Feet): 5 Height (Inches): 4.00 Weight (Pounds): 118 Objective General: NAD, cachetic, Intubated on Vent HEENT: normocephalic, atraumatic, DMM, EOMI Respiratory/Chest: Mild crakles B/L Cardiovascular/Chest: RRR, S1, S2 Abdomen: Soft, NT, ND, + BS Laboratory Tests Test 06/02/18 16:00 06/03/18 00:50 06/03/18 04:30 06/03/18 09:00 Arterial Blood pH 7.458 (7.350-7.450) 7.557 (7.350-7.450) Arterial Blood Partial Pressure CO2 46.9 mmHg (35.0-45.0) H 36.5 mmHg (35.0-45.0) Arterial Blood Partial Pressure O2 426.6 mmHg (75.0-100.0) H 125.5 mmHg (75.0-100.0) H Arterial Blood HCO3 32.5 mmol/L (22.0-26.0) H 31.7 mmol/L (22.0-26.0) H Arterial Blood Oxygen Saturation 99.2 % (95-100) 98.2 % (95-100) Arterial Blood Base Excess 7.6 (-2-2) H 9 (-2-2) H David Test Positive N/a Vancomycin Level Trough 28.9 ug/mL (5.0-12.0) H White Blood Count 9.8 K/UL (4.8-10.8) Red Blood Count 4.53 M/UL (4.20-5.40) Hemoglobin 9.7 G/DL (12.0-16.0) L Hematocrit 31.8 % (37.0-47.0) L Mean Corpuscular Volume 70 FL (80-99) L Mean Corpuscular Hemoglobin 21.4 PG (27.0-31.0) L Mean Corpuscular Hemoglobin Concent 30.6 G/DL (32.0-36.0) L Red Cell Distribution Width 14.6 % (11.6-14.8) Platelet Count 206 K/UL (150-450) Mean Platelet Volume 7.6 FL (6.5-10.1) Neutrophils (%) (Auto) 64.9 % (45.0-75.0) Lymphocytes (%) (Auto) 23.8 % (20.0-45.0) Monocytes (%) (Auto) 7.3 % (1.0-10.0) Eosinophils (%) (Auto) 3.1 % (0.0-3.0) H Basophils (%) (Auto) 0.9 % (0.0-2.0) Sodium Level 143 MMOL/L (136-145) Potassium Level 3.2 MMOL/L (3.5-5.1) L Chloride Level 102 MMOL/L (98-107) Carbon Dioxide Level 35 MMOL/L (21-32) H Anion Gap 6 mmol/L (5-15) Blood Urea Nitrogen 22 mg/dL (7-18) H Creatinine 1.1 MG/DL (0.55-1.30) Estimat Glomerular Filtration Rate mL/min (>60) Glucose Level 133 MG/DL (74-106) H Calcium Level 8.7 MG/DL (8.5-10.1) Phosphorus Level 1.5 MG/DL (2.5-4.9) L Magnesium Level 1.5 MG/DL (1.8-2.4) L Total Bilirubin 0.5 MG/DL (0.2-1.0) Aspartate Amino Transf (AST/SGOT) 13 U/L (15-37) L Alanine Aminotransferase (ALT/SGPT) 10 U/L (12-78) L Alkaline Phosphatase 53 U/L (46-116) Total Protein 5.8 G/DL (6.4-8.2) L Albumin 2.3 G/DL (3.4-5.0) L Globulin 3.5 g/dL Albumin/Globulin Ratio 0.7 (1.0-2.7) L Current Medications Medications (Trade) Dose Ordered Sig/Ann Route PRN Reason Start Time Stop Time Status Last Admin Dose Admin Acetaminophen (Tylenol) 650 mg Q4H PRN ORAL fever (temp>100.5F) 06/02/18 13:30 06/27/18 13:29 Albuterol/ Ipratropium (Albuterol/ Ipratropium) 3 ml Q6HRT HHN 06/02/18 19:00 06/04/18 12:59 06/03/18 01:12 Amiodarone HCl (Cordarone) 100 mg DAILY ORAL 06/03/18 09:00 06/30/18 08:59 Amlodipine Besylate (Norvasc) 5 mg BID ORAL 06/02/18 18:00 06/27/18 08:59 06/02/18 18:21 Cefepime HCl 1 gm/ Dextrose 55 ml @ 110 mls/hr Q24H IV 06/03/18 09:00 06/04/18 08:59 Chlorhexidine Gluconate (Myra-Hex 2%) 1 applic DAILY@2000 TOPIC 06/02/18 20:00 07/02/18 19:59 06/02/18 20:26 Dextrose 1,000 ml @ 75 mls/hr [id number] IV 06/02/18 13:30 06/29/18 13:29 06/03/18 06:24 Heparin Sodium (Porcine) (Heparin 5000 units/ml) 5,000 units EVERY 12 HOURS SUBQ 06/02/18 21:00 06/27/18 08:59 06/02/18 21:17 Lorazepam (Ativan 2mg/ml 1ml) 2 mg Q4H PRN IV For Anxiety 06/02/18 14:30 06/09/18 14:14 Magnesium Sulfate 100 ml @ 100 mls/hr Q1H IVPB 06/03/18 09:30 06/03/18 13:29 Nitroglycerin (Ntg) 0.4 mg Q5M PRN SL Prn Chest Pain 06/02/18 13:30 06/27/18 13:29 Ondansetron HCl (Zofran) 4 mg Q6H PRN IVP Nausea & Vomiting 06/02/18 13:30 06/27/18 07:29 Pantoprazole (Protonix) 40 mg DAILY IV 06/03/18 09:00 07/03/18 08:59 Polyethylene Glycol (Miralax) 17 gm DAILYPRN PRN ORAL Constipation 06/02/18 13:30 07/02/18 13:29 Potassium Phosphate 30 mm/ Sodium Chloride 285 ml @ 47.5 mls/hr ONCE ONCE IV 06/03/18 11:00 06/03/18 16:59 Quetiapine Fumarate (SEROquel) 12.5 mg BID ORAL 06/02/18 18:00 06/29/18 17:59 06/02/18 18:22 Quetiapine Fumarate (SEROquel) 25 mg Q6H PRN ORAL For Anxiety 06/02/18 13:30 06/29/18 13:29 Temazepam (Restoril) 15 mg HSPRN PRN ORAL Insomnia 06/02/18 20:00 06/09/18 19:59 Vancomycin HCl (Vanco rx to dose) 1 ea DAILY PRN MISC Per rx protocol 06/02/18 13:30 07/02/18 13:29 Vancomycin HCl 1 gm/Dextrose 275 ml @ 183.708 mls/hr Q18H IVPB 06/03/18 09:00 06/08/18 08:59 Clint Harris MD Jun 03, 2018 09:31
--- NOTE | 2018-06-03 09:38 | NUR ---
RD ASSESSMENT & RECOMMENDATIONS SEE CARE ACTIVITY FOR COMPLETE ASSESSMENT DAILY ESTIMATED NEEDS: Needs based on Critical care/ 54kg 25-30 kcals/kg 8558-1657 total kcals 1.2-2 g protein/kg 65-108 g total protein 25-30 mL/kg 3271-3313 total fluid mLs NUTRITION DIAGNOSIS: * Swallowing difficulty R/T dysphagia, respiratory status as evidenced by s/p intubation, on NGT feeds, w/ possible pending PEG placement. (UPDATED) CURRENT TF:Osmolite 1.5 @45ml/hr ENTERAL NUTRITION RECOMMENDATIONS: Osmolite 1.5 @ 45ml/hr x 24 hrs to provide 1080ml, 1620 kcal, 68g prot, 823ml free H2O * Continue to advance to goal as tolerated w/ current TF order of Osmolite 1.5 * HOB over 30 degrees/ water flush per MD. --- * WITH ELEV BG-> REC TF CHANGE TO GLUCERNA 1.5, GOAL OF 45ML/HR X24 HRS. * Provides 1620 kcal, 89g prot when at goal ADDITIONAL RECOMMENDATIONS: * CALIBRATED bedscale wt for accurate CBW- w/ added SPR mattress+ striker pump, freedom splint * Monitor POC -> NGT feeding * Monitor lytes daily w/ TF, replete as needed * MONITOR BG / NEED FOR CARB CONTROL TF . .
--- NOTE | 2018-06-03 09:52 | NUR ---
RADIOLOGY DEPT CHEST X-RAY DONE-P.DYE
--- NOTE | 2018-06-03 10:00 | NUR ---
NURSE NOTES: Patient turned and repositioned. No new orders. VSS. Will continue plan of care.
--- NOTE | 2018-06-03 10:12 | Pulmonolgy Critical Care Note ---
Critical Care - Asmt/Plan Problems: (1) Acute respiratory failure (2) Aspiration pneumonia (3) Acute encephalopathy (4) Pleural effusion (5) COPD (chronic obstructive pulmonary disease) (6) CAD (coronary artery disease) (7) Dementia Respiratory: monitor respiratory rate, adjust FIO2, CXR Cardiac: continue to monitor HR/BP Renal: F/U I&O, keep IV fluid, increase IV fluid, check electrolytes Infectious Disease: check cultures, continue antibiotics Gastrointestinal: continue feedings/current rate, abdominal imaging Endocrine: monitor blood sugar, continue sliding scale insulin Hematologic: monitor H/H, transfuse if hgb<8.5 Neurologic: PRN Ativan, PRN Morphine, keep patient comfortable Disposition: keep in ICU Time Spent (Minutes): 40 Notes Reviewed: roller stitcher, renal Discussed with: nurses, consultants, pillowcase seweradoption manager - Objective Last 24 Hour Vital Signs Date Time Temp Pulse Resp B/P (MAP) Pulse Ox O2 Delivery O2 Flow Rate FiO2 06/03/18 09:00 95 145/66 06/03/18 08:50 100 13 45 06/03/18 08:00 Mechanical Ventilator Mechanical Ventilator Mechanical Ventilator 06/03/18 08:00 111 06/03/18 08:00 45 06/03/18 08:00 110 16 148/65 (92) 99 06/03/18 06:59 Mechanical Ventilator 45 06/03/18 06:59 Mechanical Ventilator 45 06/03/18 06:57 121 12 45 06/03/18 05:00 112 16 150/60 (90) 99 06/03/18 04:55 100 12 45 06/03/18 04:00 Mechanical Ventilator Mechanical Ventilator Mechanical Ventilator 06/03/18 04:00 99.0 110 16 140/70 (93) 99 06/03/18 04:00 45 06/03/18 04:00 110 06/03/18 03:57 100 12 45 06/03/18 03:00 108 12 130/51 (77) 99 06/03/18 02:00 111 12 132/51 (78) 99 06/03/18 01:22 107 12 99 T-piece 45 06/03/18 01:13 106 12 100 Mechanical Ventilator 45 06/03/18 01:12 100 12 45 06/03/18 01:00 111 12 153/71 (98) 99 06/03/18 00:00 45 06/03/18 00:00 111 06/03/18 00:00 Mechanical Ventilator Mechanical Ventilator Mechanical Ventilator 06/03/18 00:00 99.4 111 14 149/81 (103) 100 06/02/18 23:30 100 12 45 06/02/18 23:00 109 12 151/45 (80) 100 06/02/18 22:00 105 12 167/79 (108) 100 06/02/18 21:49 107 12 50 06/02/18 21:00 99.8 110 12 120/56 (77) 100 06/02/18 20:00 Mechanical Ventilator Mechanical Ventilator Mechanical Ventilator 06/02/18 20:00 50 06/02/18 20:00 100.2 108 14 165/80 (108) 100 06/02/18 19:52 108 12 100 Mechanical Ventilator 50 06/02/18 19:35 109 12 100 Mechanical Ventilator 50 06/02/18 19:34 120 12 50 06/02/18 18:21 109 161/66 06/02/18 18:15 50 06/02/18 18:00 109 14 161/66 (97) 100 06/02/18 17:12 101 20 100 06/02/18 17:00 109 12 162/69 (100) 96 06/02/18 16:30 50 06/02/18 16:00 50 06/02/18 16:00 106 06/02/18 16:00 Mechanical Ventilator Mechanical Ventilator 06/02/18 16:00 98.1 108 13 166/70 (102) 99 06/02/18 15:00 107 13 152/71 (98) 96 06/02/18 14:35 97 20 100 06/02/18 14:00 109 14 141/54 (83) 87 06/02/18 13:30 Mechanical Ventilator Mechanical Ventilator 06/02/18 13:00 98 12 100 06/02/18 13:00 98 12 100 Mechanical Ventilator 100 06/02/18 13:00 98 12 100 Mechanical Ventilator 100 06/02/18 13:00 102 19 216/173 (187) 100 06/02/18 12:45 104 06/02/18 12:45 100 06/02/18 12:00 Bi-pap 06/02/18 12:00 98.1 101 24 145/82 (103) 93 06/02/18 12:00 50 06/02/18 11:47 107 06/02/18 11:34 96 23 98 Facial 50 Status: awake Condition: critical HEENT: atraumatic Neck: full ROM Lungs: rales, rhonchi Heart: HR/BP stable Abdomen: soft, active bowel sounds Extremities: no C/C/E Decubiti: location, stage Critical Care - Subjective ROS Limited/Unobtainable: Yes ICU Day: 2 Intubation Day: 2 Condition: critical EKG Rhythm: Sinus Rhythm FI02: 45 Vent Support Breath Rate: 12 Vent Support Mode: AC Vent Tidal Volume: 500 Sputum Amount: Small PEEP: 5.0 PIP: 33 Fluids: d5w at 75 cc/hour Tube Feeding Amount: 40 I&O: Intake and Output 06/02/18 06/03/18 19:00 07:00 Intake Total 1022.667 ml 1150 ml Output Total 425 ml 480 ml Balance 597.667 ml 670 ml Free Water 60 ml 50 ml IV Total 942.667 ml 900 ml Tube Feeding 200 ml Other 20 ml Output Urine Total 425 ml 480 ml CXR: right lung improved ET-Tube: 7.5 ET Position: 21 Labs: Laboratory Tests Test 06/02/18 16:00 06/03/18 00:50 06/03/18 04:30 06/03/18 09:00 Arterial Blood pH 7.458 (7.350-7.450) 7.557 (7.350-7.450) Arterial Blood Partial Pressure CO2 46.9 mmHg (35.0-45.0) H 36.5 mmHg (35.0-45.0) Arterial Blood Partial Pressure O2 426.6 mmHg (75.0-100.0) H 125.5 mmHg (75.0-100.0) H Arterial Blood HCO3 32.5 mmol/L (22.0-26.0) H 31.7 mmol/L (22.0-26.0) H Arterial Blood Oxygen Saturation 99.2 % (95-100) 98.2 % (95-100) Arterial Blood Base Excess 7.6 (-2-2) H 9 (-2-2) H David Test Positive N/a Vancomycin Level Trough 28.9 ug/mL (5.0-12.0) H White Blood Count 9.8 K/UL (4.8-10.8) Red Blood Count 4.53 M/UL (4.20-5.40) Hemoglobin 9.7 G/DL (12.0-16.0) L Hematocrit 31.8 % (37.0-47.0) L Mean Corpuscular Volume 70 FL (80-99) L Mean Corpuscular Hemoglobin 21.4 PG (27.0-31.0) L Mean Corpuscular Hemoglobin Concent 30.6 G/DL (32.0-36.0) L Red Cell Distribution Width 14.6 % (11.6-14.8) Platelet Count 206 K/UL (150-450) Mean Platelet Volume 7.6 FL (6.5-10.1) Neutrophils (%) (Auto) 64.9 % (45.0-75.0) Lymphocytes (%) (Auto) 23.8 % (20.0-45.0) Monocytes (%) (Auto) 7.3 % (1.0-10.0) Eosinophils (%) (Auto) 3.1 % (0.0-3.0) H Basophils (%) (Auto) 0.9 % (0.0-2.0) Sodium Level 143 MMOL/L (136-145) Potassium Level 3.2 MMOL/L (3.5-5.1) L Chloride Level 102 MMOL/L (98-107) Carbon Dioxide Level 35 MMOL/L (21-32) H Anion Gap 6 mmol/L (5-15) Blood Urea Nitrogen 22 mg/dL (7-18) H Creatinine 1.1 MG/DL (0.55-1.30) Estimat Glomerular Filtration Rate mL/min (>60) Glucose Level 133 MG/DL (74-106) H Calcium Level 8.7 MG/DL (8.5-10.1) Phosphorus Level 1.5 MG/DL (2.5-4.9) L Magnesium Level 1.5 MG/DL (1.8-2.4) L Total Bilirubin 0.5 MG/DL (0.2-1.0) Aspartate Amino Transf (AST/SGOT) 13 U/L (15-37) L Alanine Aminotransferase (ALT/SGPT) 10 U/L (12-78) L Alkaline Phosphatase 53 U/L (46-116) Total Protein 5.8 G/DL (6.4-8.2) L Albumin 2.3 G/DL (3.4-5.0) L Globulin 3.5 g/dL Albumin/Globulin Ratio 0.7 (1.0-2.7) L Yuliet Mariee MD Jun 03, 2018 10:12
--- NOTE | 2018-06-03 10:41 | General Progress Note ---
Assessment/Plan Assessment/Plan Assessment - Resp failure - NGT dependent - COPD - CHF - PNA - Anemia - Poor prognosis Recommendations - NGT feeds - Vent care - Elevated HOB - Monitor residuals - Abx - Pulmonary toilet - Await family decision re PEG Subjective Allergies: Coded Allergies: Mushroom (Verified Allergy, Severe, 05/28/18) MORPHINE (Unverified Allergy, Intermediate, Itching, 01/04/15) PENICILLINS (Unverified Allergy, Intermediate, Hives, 01/04/15) CELECOXIB (Verified Allergy, Mild, 01/15/09) Subjective Seen in ICU intubated tolerating TF d/w RN Objective Last 24 Hour Vital Signs Date Time Temp Pulse Resp B/P (MAP) Pulse Ox O2 Delivery O2 Flow Rate FiO2 06/03/18 09:00 95 145/66 06/03/18 08:50 100 13 45 06/03/18 08:00 Mechanical Ventilator Mechanical Ventilator Mechanical Ventilator 06/03/18 08:00 111 06/03/18 08:00 45 06/03/18 08:00 110 16 148/65 (92) 99 06/03/18 06:59 Mechanical Ventilator 45 06/03/18 06:59 Mechanical Ventilator 45 06/03/18 06:57 121 12 45 06/03/18 05:00 112 16 150/60 (90) 99 06/03/18 04:55 100 12 45 06/03/18 04:00 Mechanical Ventilator Mechanical Ventilator Mechanical Ventilator 06/03/18 04:00 99.0 110 16 140/70 (93) 99 06/03/18 04:00 45 06/03/18 04:00 110 06/03/18 03:57 100 12 45 06/03/18 03:00 108 12 130/51 (77) 99 06/03/18 02:00 111 12 132/51 (78) 99 06/03/18 01:22 107 12 99 T-piece 45 06/03/18 01:13 106 12 100 Mechanical Ventilator 45 06/03/18 01:12 100 12 45 06/03/18 01:00 111 12 153/71 (98) 99 06/03/18 00:00 45 06/03/18 00:00 111 06/03/18 00:00 Mechanical Ventilator Mechanical Ventilator Mechanical Ventilator 06/03/18 00:00 99.4 111 14 149/81 (103) 100 06/02/18 23:30 100 12 45 06/02/18 23:00 109 12 151/45 (80) 100 06/02/18 22:00 105 12 167/79 (108) 100 06/02/18 21:49 107 12 50 06/02/18 21:00 99.8 110 12 120/56 (77) 100 06/02/18 20:00 Mechanical Ventilator Mechanical Ventilator Mechanical Ventilator 06/02/18 20:00 50 06/02/18 20:00 100.2 108 14 165/80 (108) 100 06/02/18 19:52 108 12 100 Mechanical Ventilator 50 06/02/18 19:35 109 12 100 Mechanical Ventilator 50 06/02/18 19:34 120 12 50 06/02/18 18:21 109 161/66 06/02/18 18:15 50 06/02/18 18:00 109 14 161/66 (97) 100 06/02/18 17:12 101 20 100 06/02/18 17:00 109 12 162/69 (100) 96 06/02/18 16:30 50 06/02/18 16:00 50 06/02/18 16:00 106 06/02/18 16:00 Mechanical Ventilator Mechanical Ventilator 06/02/18 16:00 98.1 108 13 166/70 (102) 99 06/02/18 15:00 107 13 152/71 (98) 96 06/02/18 14:35 97 20 100 06/02/18 14:00 109 14 141/54 (83) 87 06/02/18 13:30 Mechanical Ventilator Mechanical Ventilator 06/02/18 13:00 98 12 100 06/02/18 13:00 98 12 100 Mechanical Ventilator 100 06/02/18 13:00 98 12 100 Mechanical Ventilator 100 06/02/18 13:00 102 19 216/173 (187) 100 06/02/18 12:45 104 06/02/18 12:45 100 06/02/18 12:00 Bi-pap 06/02/18 12:00 98.1 101 24 145/82 (103) 93 06/02/18 12:00 50 06/02/18 11:47 107 06/02/18 11:34 96 23 98 Facial 50 Intake and Output 06/02/18 2/05/21 19:00 07:00 Intake Total 1022.667 ml 1150 ml Output Total 425 ml 480 ml Balance 597.667 ml 670 ml Free Water 60 ml 50 ml IV Total 942.667 ml 900 ml Tube Feeding 200 ml Other 20 ml Output Urine Total 425 ml 480 ml Laboratory Tests 06/02/18 16:00: Arterial Blood pH 7.458H, Arterial Blood Partial Pressure CO2 46.9H, Arterial Blood Partial Pressure O2 426.6H, Arterial Blood HCO3 32.5H, Arterial Blood Oxygen Saturation 99.2, Arterial Blood Base Excess 7.6H, David Test Positive 06/03/18 00:50: Vancomycin Level Trough 28.9H 06/03/18 04:30: White Blood Count 9.8, Red Blood Count 4.53, Hemoglobin 9.7L, Hematocrit 31.8L, Mean Corpuscular Volume 70L, Mean Corpuscular Hemoglobin 21.4L, Mean Corpuscular Hemoglobin Concent 30.6L, Red Cell Distribution Width 14.6, Platelet Count 206, Mean Platelet Volume 7.6, Neutrophils (%) (Auto) 64.9, Lymphocytes (%) (Auto) 23.8, Monocytes (%) (Auto) 7.3, Eosinophils (%) (Auto) 3.1H, Basophils (%) (Auto) 0.9, Sodium Level 143, Potassium Level 3.2L, Chloride Level 102, Carbon Dioxide Level 35H, Anion Gap 6, Blood Urea Nitrogen 22H, Creatinine 1.1, Estimat Glomerular Filtration Rate , Glucose Level 133H, Calcium Level 8.7, Phosphorus Level 1.5L, Magnesium Level 1.5L, Total Bilirubin 0.5, Aspartate Amino Transf (AST/SGOT) 13L, Alanine Aminotransferase (ALT/SGPT) 10L, Alkaline Phosphatase 53, Total Protein 5.8L, Albumin 2.3L, Globulin 3.5, Albumin/Globulin Ratio 0.7L 06/03/18 09:00: Arterial Blood pH 7.557*H, Arterial Blood Partial Pressure CO2 36.5, Arterial Blood Partial Pressure O2 125.5H, Arterial Blood HCO3 31.7H, Arterial Blood Oxygen Saturation 98.2, Arterial Blood Base Excess 9H, David Test N/a Height (Feet): 5 Height (Inches): 4.00 Weight (Pounds): 118 Objective Elderly WW NCAT, (+) NGT, (+)ETT Supple CTA RRR Soft, NT, ND No edema restrained Panchito Rahman MD Jun 03, 2018 10:41
[2018-06-03] MEDS ORDERED: Potassium Phosphate 30 MM in NS 275 ML IV ONE (11:00)
--- NOTE | 2018-06-03 12:00 | NUR ---
NURSE NOTES: Patient turned and repositioned. No new orders. VSS. Will continue plan of care.
--- NOTE | 2018-06-03 12:47 | Diagnostic Imaging Report ---
Indication: Disc Technique: One view of the chest Comparison: 06/02/2018 Findings: Patient is rotated to the left There is increasing opacification of the right hemithorax, may reflect increasing pleural fluid or parenchymal consolidation/edema. Left lung demonstrates mild interstitial congestive change, similar to the prior exam. Pleural space is clear on the left. Stable satisfactory positions of nasogastric tube, endotracheal tube, right arm PICC Impression: . Increased opacity of the right lung. Possibly artifactual due to differences in rotation and therefore overlying soft tissue opacity, but suspect increasing pleural fluid and/or consolidation
--- NOTE | 2018-06-03 14:00 | NUR ---
NURSE NOTES: Updated son regarding patient's condition. No new orders at this time. Will continue plan of care.
--- NOTE | 2018-06-03 16:00 | NUR ---
NURSE NOTES: Patient turned and repositioned. No new orders at this time. Will continue plan of care.
[2018-06-03] MEDS: LORazepam Inj 2mg/ml 1ml IV PRN (16:28)
--- NOTE | 2018-06-03 18:00 | NUR ---
NURSE NOTES: Family at bedside. No changes in patient condition. Will continue aguilar of care.
--- NOTE | 2018-06-03 18:28 | Nephrology Progress Note ---
Assessment/Plan Problem List: (1) Urinary outflow obstruction Assessment: resolved after grewal (2) Acute respiratory failure (3) Dementia (4) Afib Assessment Urinary out let obstruction, relieved after grewal Normal serum Cr Anemia, Low MCV High Ca corrected for low ALbumin other conditions: (1) Acute respiratory failure (2) Aspiration pneumonia (3) Acute encephalopathy (4) Pleural effusion (5) COPD (chronic obstructive pulmonary disease) (6) CAD (coronary artery disease) (7) Dementia Plan vent management K and Phos and Mag as needed slow Hydrate Anemia porter Adjust BP meds fu Lytes Gastric support pulm support- not tolerating bipap consider tube feeding as po is POOR Subjective ROS Limited/Unobtainable: Yes Objective Objective Last 24 Hour Vital Signs Date Time Temp Pulse Resp B/P (MAP) Pulse Ox O2 Delivery O2 Flow Rate FiO2 06/03/18 17:18 112 12 45 06/03/18 17:00 95 15 135/58 (83) 99 06/03/18 16:00 45 06/03/18 16:00 98 15 140/62 (88) 99 06/03/18 16:00 Mechanical Ventilator Mechanical Ventilator Mechanical Ventilator 06/03/18 16:00 105 06/03/18 15:15 118 12 45 06/03/18 15:00 99.0 105 14 144/60 (88) 99 06/03/18 14:00 111 14 147/63 (91) 99 06/03/18 13:02 105 12 100 Mechanical Ventilator 45 06/03/18 13:00 103 12 45 06/03/18 13:00 103 12 124/62 (82) 99 06/03/18 12:54 103 12 99 Mechanical Ventilator 45 06/03/18 12:00 113 06/03/18 12:00 105 16 144/60 (88) 99 06/03/18 12:00 Mechanical Ventilator Mechanical Ventilator Mechanical Ventilator 06/03/18 12:00 45 06/03/18 11:05 119 12 45 06/03/18 11:00 107 12 128/60 (82) 99 06/03/18 10:00 102 12 98/55 (69) 99 06/03/18 09:00 99.0 107 16 145/66 (92) 99 06/03/18 09:00 95 145/66 06/03/18 08:50 100 13 45 06/03/18 08:00 Mechanical Ventilator Mechanical Ventilator Mechanical Ventilator 06/03/18 08:00 111 06/03/18 08:00 45 06/03/18 08:00 110 16 148/65 (92) 99 06/03/18 07:00 107 12 132/63 (86) 99 06/03/18 06:59 Mechanical Ventilator 45 06/03/18 06:59 Mechanical Ventilator 45 06/03/18 06:57 121 12 45 06/03/18 05:00 112 16 150/60 (90) 99 06/03/18 04:55 100 12 45 06/03/18 04:00 Mechanical Ventilator Mechanical Ventilator Mechanical Ventilator 06/03/18 04:00 99.0 110 16 140/70 (93) 99 06/03/18 04:00 45 06/03/18 04:00 110 06/03/18 03:57 100 12 45 06/03/18 03:00 108 12 130/51 (77) 99 06/03/18 02:00 111 12 132/51 (78) 99 06/03/18 01:22 107 12 99 T-piece 45 06/03/18 01:13 106 12 100 Mechanical Ventilator 45 06/03/18 01:12 100 12 45 06/03/18 01:00 111 12 153/71 (98) 99 06/03/18 00:00 45 06/03/18 00:00 111 06/03/18 00:00 Mechanical Ventilator Mechanical Ventilator Mechanical Ventilator 06/03/18 00:00 99.4 111 14 149/81 (103) 100 06/02/18 23:30 100 12 45 06/02/18 23:00 109 12 151/45 (80) 100 06/02/18 22:00 105 12 167/79 (108) 100 06/02/18 21:49 107 12 50 06/02/18 21:00 99.8 110 12 120/56 (77) 100 06/02/18 20:00 Mechanical Ventilator Mechanical Ventilator Mechanical Ventilator 06/02/18 20:00 50 06/02/18 20:00 100.2 108 14 165/80 (108) 100 06/02/18 19:52 108 12 100 Mechanical Ventilator 50 06/02/18 19:35 109 12 100 Mechanical Ventilator 50 06/02/18 19:34 120 12 50 Intake and Output 06/02/18 06/03/18 19:00 07:00 Intake Total 1022.667 ml 1150 ml Output Total 425 ml 480 ml Balance 597.667 ml 670 ml Free Water 60 ml 50 ml IV Total 942.667 ml 900 ml Tube Feeding 200 ml Other 20 ml Output Urine Total 425 ml 480 ml Laboratory Tests 06/03/18 00:50: Vancomycin Level Trough 28.9H 06/03/18 04:30: White Blood Count 9.8, Red Blood Count 4.53, Hemoglobin 9.7L, Hematocrit 31.8L, Mean Corpuscular Volume 70L, Mean Corpuscular Hemoglobin 21.4L, Mean Corpuscular Hemoglobin Concent 30.6L, Red Cell Distribution Width 14.6, Platelet Count 206, Mean Platelet Volume 7.6, Neutrophils (%) (Auto) 64.9, Lymphocytes (%) (Auto) 23.8, Monocytes (%) (Auto) 7.3, Eosinophils (%) (Auto) 3.1H, Basophils (%) (Auto) 0.9, Sodium Level 143, Potassium Level 3.2L, Chloride Level 102, Carbon Dioxide Level 35H, Anion Gap 6, Blood Urea Nitrogen 22H, Creatinine 1.1, Estimat Glomerular Filtration Rate , Glucose Level 133H, Calcium Level 8.7, Phosphorus Level 1.5L, Magnesium Level 1.5L, Total Bilirubin 0.5, Aspartate Amino Transf (AST/SGOT) 13L, Alanine Aminotransferase (ALT/SGPT) 10L, Alkaline Phosphatase 53, Total Protein 5.8L, Albumin 2.3L, Globulin 3.5, Albumin/Globulin Ratio 0.7L 06/03/18 09:00: Arterial Blood pH 7.557*H, Arterial Blood Partial Pressure CO2 36.5, Arterial Blood Partial Pressure O2 125.5H, Arterial Blood HCO3 31.7H, Arterial Blood Oxygen Saturation 98.2, Arterial Blood Base Excess 9H, David Test N/a Height (Feet): 5 Height (Inches): 4.00 Weight (Pounds): 118 EENT: other - on Vent Cardiovascular: tachycardia Respiratory/Chest: decreased breath sounds Abdomen: distended Kendrick Jimenez MD Jun 03, 2018 18:28
--- NOTE | 2018-06-03 19:06 | Cardiology Progress Note ---
Assessment/Plan Assessment/Plan COPD, congestive heart failure, atrial fibrillation sinus tachy agitation right lung collapse? cxr reviewed looks bettetr ekg reviewd intubeted chest pt dvt ppx all trop neg cr is normal is npo in on low dose ivf is off diuretic as was dry at admission d/w rn d/w family Subjective ROS Limited/Unobtainable: Yes Subjective on a vent in [facility] family at bedside Objective Last 24 Hour Vital Signs Date Time Temp Pulse Resp B/P (MAP) Pulse Ox O2 Delivery O2 Flow Rate FiO2 06/03/18 18:00 101 16 130/54 (79) 99 06/03/18 18:00 103 92/55 06/03/18 17:18 112 12 45 06/03/18 17:00 95 15 135/58 (83) 99 06/03/18 16:00 45 06/03/18 16:00 98 15 140/62 (88) 99 06/03/18 16:00 Mechanical Ventilator Mechanical Ventilator Mechanical Ventilator 06/03/18 16:00 105 06/03/18 15:15 118 12 45 06/03/18 15:00 99.0 105 14 144/60 (88) 99 06/03/18 14:00 111 14 147/63 (91) 99 06/03/18 13:02 105 12 100 Mechanical Ventilator 45 06/03/18 13:00 103 12 45 06/03/18 13:00 103 12 124/62 (82) 99 06/03/18 12:54 103 12 99 Mechanical Ventilator 45 06/03/18 12:00 113 06/03/18 12:00 105 16 144/60 (88) 99 06/03/18 12:00 Mechanical Ventilator Mechanical Ventilator Mechanical Ventilator 06/03/18 12:00 45 06/03/18 11:05 119 12 45 06/03/18 11:00 107 12 128/60 (82) 99 06/03/18 10:00 102 12 98/55 (69) 99 06/03/18 09:00 99.0 107 16 145/66 (92) 99 06/03/18 09:00 95 145/66 06/03/18 08:50 100 13 45 06/03/18 08:00 Mechanical Ventilator Mechanical Ventilator Mechanical Ventilator 06/03/18 08:00 111 06/03/18 08:00 45 06/03/18 08:00 110 16 148/65 (92) 99 06/03/18 07:00 107 12 132/63 (86) 99 06/03/18 06:59 Mechanical Ventilator 45 06/03/18 06:59 Mechanical Ventilator 45 06/03/18 06:57 121 12 45 06/03/18 05:00 112 16 150/60 (90) 99 06/03/18 04:55 100 12 45 06/03/18 04:00 Mechanical Ventilator Mechanical Ventilator Mechanical Ventilator 06/03/18 04:00 99.0 110 16 140/70 (93) 99 06/03/18 04:00 45 06/03/18 04:00 110 06/03/18 03:57 100 12 45 06/03/18 03:00 108 12 130/51 (77) 99 06/03/18 02:00 111 12 132/51 (78) 99 06/03/18 01:22 107 12 99 T-piece 45 06/03/18 01:13 106 12 100 Mechanical Ventilator 45 06/03/18 01:12 100 12 45 06/03/18 01:00 111 12 153/71 (98) 99 06/03/18 00:00 45 06/03/18 00:00 111 06/03/18 00:00 Mechanical Ventilator Mechanical Ventilator Mechanical Ventilator 06/03/18 00:00 99.4 111 14 149/81 (103) 100 06/02/18 23:30 100 12 45 06/02/18 23:00 109 12 151/45 (80) 100 06/02/18 22:00 105 12 167/79 (108) 100 06/02/18 21:49 107 12 50 06/02/18 21:00 99.8 110 12 120/56 (77) 100 06/02/18 20:00 Mechanical Ventilator Mechanical Ventilator Mechanical Ventilator 06/02/18 20:00 50 06/02/18 20:00 100.2 108 14 165/80 (108) 100 06/02/18 19:52 108 12 100 Mechanical Ventilator 50 06/02/18 19:35 109 12 100 Mechanical Ventilator 50 06/02/18 19:34 120 12 50 General Appearance: no apparent distress, on vent, patient on isolation Neck: supple Cardiovascular: normal rate, regular rhythm Respiratory/Chest: rhonchi - bilaterally Abdomen: normal bowel sounds, non tender, soft Extremities: no swelling Intake and Output 06/02/18 06/03/18 19:00 07:00 Intake Total 1022.667 ml 1150 ml Output Total 425 ml 480 ml Balance 597.667 ml 670 ml Free Water 60 ml 50 ml IV Total 942.667 ml 900 ml Tube Feeding 200 ml Other 20 ml Output Urine Total 425 ml 480 ml Laboratory Tests Test 06/03/18 00:50 06/03/18 04:30 06/03/18 09:00 Vancomycin Level Trough 28.9 ug/mL (5.0-12.0) H White Blood Count 9.8 K/UL (4.8-10.8) Red Blood Count 4.53 M/UL (4.20-5.40) Hemoglobin 9.7 G/DL (12.0-16.0) L Hematocrit 31.8 % (37.0-47.0) L Mean Corpuscular Volume 70 FL (80-99) L Mean Corpuscular Hemoglobin 21.4 PG (27.0-31.0) L Mean Corpuscular Hemoglobin Concent 30.6 G/DL (32.0-36.0) L Red Cell Distribution Width 14.6 % (11.6-14.8) Platelet Count 206 K/UL (150-450) Mean Platelet Volume 7.6 FL (6.5-10.1) Neutrophils (%) (Auto) 64.9 % (45.0-75.0) Lymphocytes (%) (Auto) 23.8 % (20.0-45.0) Monocytes (%) (Auto) 7.3 % (1.0-10.0) Eosinophils (%) (Auto) 3.1 % (0.0-3.0) H Basophils (%) (Auto) 0.9 % (0.0-2.0) Sodium Level 143 MMOL/L (136-145) Potassium Level 3.2 MMOL/L (3.5-5.1) L Chloride Level 102 MMOL/L (98-107) Carbon Dioxide Level 35 MMOL/L (21-32) H Anion Gap 6 mmol/L (5-15) Blood Urea Nitrogen 22 mg/dL (7-18) H Creatinine 1.1 MG/DL (0.55-1.30) Estimat Glomerular Filtration Rate mL/min (>60) Glucose Level 133 MG/DL (74-106) H Calcium Level 8.7 MG/DL (8.5-10.1) Phosphorus Level 1.5 MG/DL (2.5-4.9) L Magnesium Level 1.5 MG/DL (1.8-2.4) L Total Bilirubin 0.5 MG/DL (0.2-1.0) Aspartate Amino Transf (AST/SGOT) 13 U/L (15-37) L Alanine Aminotransferase (ALT/SGPT) 10 U/L (12-78) L Alkaline Phosphatase 53 U/L (46-116) Total Protein 5.8 G/DL (6.4-8.2) L Albumin 2.3 G/DL (3.4-5.0) L Globulin 3.5 g/dL Albumin/Globulin Ratio 0.7 (1.0-2.7) L Arterial Blood pH 7.557 (7.350-7.450) Arterial Blood Partial Pressure CO2 36.5 mmHg (35.0-45.0) Arterial Blood Partial Pressure O2 125.5 mmHg (75.0-100.0) H Arterial Blood HCO3 31.7 mmol/L (22.0-26.0) H Arterial Blood Oxygen Saturation 98.2 % (95-100) Arterial Blood Base Excess 9 (-2-2) H David Test N/a Geoffrey Sandhu MD Jun 03, 2018 19:06
--- NOTE | 2018-06-03 19:23 | NUR ---
HAND-OFF: Report given to MARGY DORANTES using SBAR. VSS. No distress noted.
--- NOTE | 2018-06-03 19:30 | NUR ---
NURSE NOTES: Received report from MARGY Sexton. Patient lethargic, reacting to stimulation. desk monitor showing ST. Patient is intubated 7.5/21 cm lipline AC 12 VT 500 FiO2 45% Peep of 5. Lung sounds diminished bilaterally. Patient has R nare NGT. Osmolite 1.2 at 45 cc/hr. No residual noted, at goal. Patient turned and repositioned. Sinclair intact. Hypoactive bowel sounds present. R upper arm PICC line, D5W at 75 cc/hr. Bilateral restraints intact. Will continue plan of care. HOB elevated, bed on lowest position, bed alarm on, call light within reach.
--- NOTE | 2018-06-03 21:15 | General Progress Note ---
Assessment/Plan Status: not improved Assessment/Plan This is an 87-year-old female admitted with chronic obstructive pulmonary disease exacerbation, right lower lobe infiltrate/pneumonia with altered mental status and acute kidney injury. The patient will be admitted to [facility] with the following medical problems. 1. Chronic obstructive pulmonary disease exacerbation and pneumonia. The patient has been seen by Pulmonary. Infectious Disease has been consulted, pancultured. IV antibiotics per ID. Continue with BiPAP and suction p.r.n. Transition to Venturi-mask when stable. 2. Acute kidney injury. We will monitor I's and O's, gentle intravenous fluids. Repeat a BMP in a.m. Consider Nephrology consult. 3. History of chronic atrial fibrillation. Continue with amiodarone. The patient is in sinus rhythm at this time. 4. History of hypertension. Continue with amlodipine and hold for systolic blood pressure less than 110. 5. Altered mental status, most likely from above conditions. We will keep n.p.o. except for medications and start IV fluids. 6. DVT prophylaxis with heparin subcutaneous and SCDs. 7. The patient is Full Code per policy. We will discuss with the family. 8. hypokalmia Plan: - now in ICU on VENT support - continue present care - iV antibioitics and fluids - NGT placed for nutrition - replace k pattient is full code per family's wish discussed with ICU nurse Subjective Date patient seen: Jun 03, 2018 ROS Limited/Unobtainable: Yes Allergies: Coded Allergies: Mushroom (Verified Allergy, Severe, 05/28/18) MORPHINE (Unverified Allergy, Intermediate, Itching, 01/04/15) PENICILLINS (Unverified Allergy, Intermediate, Hives, 01/04/15) CELECOXIB (Verified Allergy, Mild, 01/15/09) Subjective patient with acute respiratory failure continues to remain intubated in ICU Objective Last 24 Hour Vital Signs Date Time Temp Pulse Resp B/P (MAP) Pulse Ox O2 Delivery O2 Flow Rate FiO2 06/03/18 19:54 104 16 100 Mechanical Ventilator 45 06/03/18 19:44 102 16 99 Mechanical Ventilator 45 06/03/18 19:37 102 16 45 06/03/18 18:00 101 16 130/54 (79) 99 06/03/18 18:00 103 92/55 06/03/18 17:18 112 12 45 06/03/18 17:00 95 15 135/58 (83) 99 06/03/18 16:00 45 06/03/18 16:00 98 15 140/62 (88) 99 06/03/18 16:00 Mechanical Ventilator Mechanical Ventilator Mechanical Ventilator 06/03/18 16:00 105 06/03/18 15:15 118 12 45 06/03/18 15:00 99.0 105 14 144/60 (88) 99 06/03/18 14:00 111 14 147/63 (91) 99 06/03/18 13:02 105 12 100 Mechanical Ventilator 45 06/03/18 13:00 103 12 45 06/03/18 13:00 103 12 124/62 (82) 99 06/03/18 12:54 103 12 99 Mechanical Ventilator 45 06/03/18 12:00 113 06/03/18 12:00 105 16 144/60 (88) 99 06/03/18 12:00 Mechanical Ventilator Mechanical Ventilator Mechanical Ventilator 06/03/18 12:00 45 06/03/18 11:05 119 12 45 06/03/18 11:00 107 12 128/60 (82) 99 06/03/18 10:00 102 12 98/55 (69) 99 06/03/18 09:00 99.0 107 16 145/66 (92) 99 06/03/18 09:00 95 145/66 06/03/18 08:50 100 13 45 06/03/18 08:00 Mechanical Ventilator Mechanical Ventilator Mechanical Ventilator 06/03/18 08:00 111 06/03/18 08:00 45 06/03/18 08:00 110 16 148/65 (92) 99 06/03/18 07:00 107 12 132/63 (86) 99 06/03/18 06:59 Mechanical Ventilator 45 06/03/18 06:59 Mechanical Ventilator 45 06/03/18 06:57 121 12 45 06/03/18 05:00 112 16 150/60 (90) 99 06/03/18 04:55 100 12 45 06/03/18 04:00 Mechanical Ventilator Mechanical Ventilator Mechanical Ventilator 06/03/18 04:00 99.0 110 16 140/70 (93) 99 06/03/18 04:00 45 06/03/18 04:00 110 06/03/18 03:57 100 12 45 06/03/18 03:00 108 12 130/51 (77) 99 06/03/18 02:00 111 12 132/51 (78) 99 06/03/18 01:22 107 12 99 T-piece 45 06/03/18 01:13 106 12 100 Mechanical Ventilator 45 06/03/18 01:12 100 12 45 06/03/18 01:00 111 12 153/71 (98) 99 06/03/18 00:00 45 06/03/18 00:00 111 06/03/18 00:00 Mechanical Ventilator Mechanical Ventilator Mechanical Ventilator 06/03/18 00:00 99.4 111 14 149/81 (103) 100 06/02/18 23:30 100 12 45 06/02/18 23:00 109 12 151/45 (80) 100 06/02/18 22:00 105 12 167/79 (108) 100 06/02/18 21:49 107 12 50 Intake and Output 06/02/18 06/03/18 19:00 07:00 Intake Total 1022.667 ml 1150 ml Output Total 425 ml 480 ml Balance 597.667 ml 670 ml Free Water 60 ml 50 ml IV Total 942.667 ml 900 ml Tube Feeding 200 ml Other 20 ml Output Urine Total 425 ml 480 ml Laboratory Tests 06/03/18 00:50: Vancomycin Level Trough 28.9H 06/03/18 04:30: White Blood Count 9.8, Red Blood Count 4.53, Hemoglobin 9.7L, Hematocrit 31.8L, Mean Corpuscular Volume 70L, Mean Corpuscular Hemoglobin 21.4L, Mean Corpuscular Hemoglobin Concent 30.6L, Red Cell Distribution Width 14.6, Platelet Count 206, Mean Platelet Volume 7.6, Neutrophils (%) (Auto) 64.9, Lymphocytes (%) (Auto) 23.8, Monocytes (%) (Auto) 7.3, Eosinophils (%) (Auto) 3.1H, Basophils (%) (Auto) 0.9, Sodium Level 143, Potassium Level 3.2L, Chloride Level 102, Carbon Dioxide Level 35H, Anion Gap 6, Blood Urea Nitrogen 22H, Creatinine 1.1, Estimat Glomerular Filtration Rate , Glucose Level 133H, Calcium Level 8.7, Phosphorus Level 1.5L, Magnesium Level 1.5L, Total Bilirubin 0.5, Aspartate Amino Transf (AST/SGOT) 13L, Alanine Aminotransferase (ALT/SGPT) 10L, Alkaline Phosphatase 53, Total Protein 5.8L, Albumin 2.3L, Globulin 3.5, Albumin/Globulin Ratio 0.7L 06/03/18 09:00: Arterial Blood pH 7.557*H, Arterial Blood Partial Pressure CO2 36.5, Arterial Blood Partial Pressure O2 125.5H, Arterial Blood HCO3 31.7H, Arterial Blood Oxygen Saturation 98.2, Arterial Blood Base Excess 9H, David Test N/a Height (Feet): 5 Height (Inches): 4.00 Weight (Pounds): 118 General Appearance: no apparent distress, alert EENT: PERRL/EOMI, pharynx normal Cardiovascular: normal rate, regular rhythm, no gallop/murmur, no JVD Respiratory/Chest: crackles/rales, rhonchi - bilaterally Abdomen: non tender, soft, no mass Extremities: non-tender, normal inspection, no calf tenderness Edema: no edema noted Arm (L), no edema noted Arm (R), no edema noted Leg (L), no edema noted Leg (R), no edema noted Pedal (L), no edema noted Pedal (R), no edema noted Generalized Neurologic: unresponsive Skin: warm/dry Lymphatic: normal anterior cervical (L), normal anterior cervical (R), normal posterior cervical (L), normal posterior cervical (R), normal submandibular (L) , normal submandibular (R), normal supraclavicular (L), normal supraclavicular ( R), normal axillary (L), normal axillary (R), normal inguinal (L), normal inguinal (R), normal other Cruz Valderrama MD Jun 03, 2018 21:15
[2018-06-03] MEDS: Dyna-Hex 2% Top Sol 2oz TOPIC SCH (21:42)
--- NOTE | 2018-06-03 22:00 | NUR ---
NURSE NOTES: Pt's resting in bed, in no acute distress. VS stable. Will continue to monitor.
[2018-06-04] VITALS (18 sets, daily range): BP systolic 83–140; BP diastolic 45–74
--- NOTE | 2018-06-04 | General Progress Note ---
Assessment/Plan Problem List: (1) encephalopathy due to toxin (2) Dementia ICD Codes: F03.90 - Unspecified dementia without behavioral disturbance SNOMED: [id number] Assessment/Plan dcseroquel 12.5mg po bid seroquel 25mg q 6hr prn cont restraints. Subjective Allergies: Coded Allergies: Mushroom (Verified Allergy, Severe, 05/28/18) MORPHINE (Unverified Allergy, Intermediate, Itching, 01/04/15) PENICILLINS (Unverified Allergy, Intermediate, Hives, 01/04/15) CELECOXIB (Verified Allergy, Mild, 01/15/09) Subjective agitated confused Objective Last 24 Hour Vital Signs Date Time Temp Pulse Resp B/P (MAP) Pulse Ox O2 Delivery O2 Flow Rate FiO2 06/03/18 23:00 100.2 101 16 135/69 (91) 99 06/03/18 22:29 105 16 35 06/03/18 22:00 107 16 135/69 (91) 99 06/03/18 21:29 111 16 45 06/03/18 21:00 109 16 121/62 (81) 99 06/03/18 20:00 Mechanical Ventilator 06/03/18 20:00 45 06/03/18 20:00 108 16 138/68 (91) 99 06/03/18 20:00 93 06/03/18 19:54 104 16 100 Mechanical Ventilator 45 06/03/18 19:44 102 16 99 Mechanical Ventilator 45 06/03/18 19:37 102 16 45 06/03/18 19:00 99.5 100 16 134/59 (84) 99 06/03/18 18:00 101 16 130/54 (79) 99 06/03/18 18:00 103 92/55 06/03/18 17:18 112 12 45 06/03/18 17:00 95 15 135/58 (83) 99 06/03/18 16:00 45 06/03/18 16:00 98 15 140/62 (88) 99 06/03/18 16:00 Mechanical Ventilator Mechanical Ventilator Mechanical Ventilator 06/03/18 16:00 105 06/03/18 15:15 118 12 45 06/03/18 15:00 99.0 105 14 144/60 (88) 99 06/03/18 14:00 111 14 147/63 (91) 99 06/03/18 13:02 105 12 100 Mechanical Ventilator 45 06/03/18 13:00 103 12 45 06/03/18 13:00 103 12 124/62 (82) 99 06/03/18 12:54 103 12 99 Mechanical Ventilator 45 06/03/18 12:00 113 06/03/18 12:00 105 16 144/60 (88) 99 06/03/18 12:00 Mechanical Ventilator Mechanical Ventilator Mechanical Ventilator 06/03/18 12:00 45 06/03/18 11:05 119 12 45 06/03/18 11:00 107 12 128/60 (82) 99 06/03/18 10:00 102 12 98/55 (69) 99 06/03/18 09:00 99.0 107 16 145/66 (92) 99 06/03/18 09:00 95 145/66 06/03/18 08:50 100 13 45 06/03/18 08:00 Mechanical Ventilator Mechanical Ventilator Mechanical Ventilator 06/03/18 08:00 111 06/03/18 08:00 45 06/03/18 08:00 110 16 148/65 (92) 99 06/03/18 07:00 107 12 132/63 (86) 99 06/03/18 06:59 Mechanical Ventilator 45 06/03/18 06:59 Mechanical Ventilator 45 06/03/18 06:57 121 12 45 06/03/18 05:00 112 16 150/60 (90) 99 06/03/18 04:55 100 12 45 06/03/18 04:00 Mechanical Ventilator Mechanical Ventilator Mechanical Ventilator 06/03/18 04:00 99.0 110 16 140/70 (93) 99 06/03/18 04:00 45 06/03/18 04:00 110 06/03/18 03:57 100 12 45 06/03/18 03:00 108 12 130/51 (77) 99 06/03/18 02:00 111 12 132/51 (78) 99 06/03/18 01:22 107 12 99 T-piece 45 06/03/18 01:13 106 12 100 Mechanical Ventilator 45 06/03/18 01:12 100 12 45 06/03/18 01:00 111 12 153/71 (98) 99 Intake and Output 06/03/18 06/04/18 19:00 07:00 Intake Total 565 ml 240 ml Output Total 600 ml 120 ml Balance -35 ml 120 ml Free Water 60 ml IV Total 55 ml Tube Feeding 510 ml 180 ml Output Urine Total 600 ml 120 ml Laboratory Tests 06/03/18 00:50: Vancomycin Level Trough 28.9H 06/03/18 04:30: White Blood Count 9.8, Red Blood Count 4.53, Hemoglobin 9.7L, Hematocrit 31.8L, Mean Corpuscular Volume 70L, Mean Corpuscular Hemoglobin 21.4L, Mean Corpuscular Hemoglobin Concent 30.6L, Red Cell Distribution Width 14.6, Platelet Count 206, Mean Platelet Volume 7.6, Neutrophils (%) (Auto) 64.9, Lymphocytes (%) (Auto) 23.8, Monocytes (%) (Auto) 7.3, Eosinophils (%) (Auto) 3.1H, Basophils (%) (Auto) 0.9, Sodium Level 143, Potassium Level 3.2L, Chloride Level 102, Carbon Dioxide Level 35H, Anion Gap 6, Blood Urea Nitrogen 22H, Creatinine 1.1, Estimat Glomerular Filtration Rate , Glucose Level 133H, Calcium Level 8.7, Phosphorus Level 1.5L, Magnesium Level 1.5L, Total Bilirubin 0.5, Aspartate Amino Transf (AST/SGOT) 13L, Alanine Aminotransferase (ALT/SGPT) 10L, Alkaline Phosphatase 53, Total Protein 5.8L, Albumin 2.3L, Globulin 3.5, Albumin/Globulin Ratio 0.7L 06/03/18 09:00: Arterial Blood pH 7.557*H, Arterial Blood Partial Pressure CO2 36.5, Arterial Blood Partial Pressure O2 125.5H, Arterial Blood HCO3 31.7H, Arterial Blood Oxygen Saturation 98.2, Arterial Blood Base Excess 9H, David Test N/a Height (Feet): 5 Height (Inches): 4.00 Weight (Pounds): 118 General Appearance: confused, agitated Liz Lo MD Jun 04, 2018 00:00
--- NOTE | 2018-06-04 | NUR ---
NURSE NOTES: Pt's resting in bed, asleep with eyes closed, in no acute distress. VS stable. Will continue to monitor.
[2018-06-04] MEDS: Albuterol/Ipratropium 3ml neb HHN SCH ×4 (00:27→19:03)
--- NOTE | 2018-06-04 02:00 | NUR ---
NURSE NOTES: Pt's resting in bed, in no distress. VS stable. Will continue to monitor.
[2018-06-04] MEDS: LORazepam Inj 2mg/ml 1ml IV PRN ×3 (03:11→21:19)
--- NOTE | 2018-06-04 04:00 | NUR ---
NURSE NOTES: Pt's resting in bed, sleeping with eyes closed, in no distress. VS stable. Will continue to monitor.
--- NOTE | 2018-06-04 06:00 | NUR ---
NURSE NOTES: Pt's resting in bed, in no acute distress. VS stable will continue to monitor.
[2018-06-04 06:29] LABS: BASOPHILS % (AUTO) 0.5 % (0.0-2.0); EOSINOPHILS % (AUTO) 2.2 % (0.0-3.0); HEMATOCRIT 33.7 % (37.0-47.0); HEMOGLOBIN 10.4 G/DL (12.0-16.0); LYMPHOCYTES % (AUTO) 19.1 % (20.0-45.0); MEAN CORPUSCULAR VOLUME 69 FL (80-99); MONOCYTES % (AUTO) 5.1 % (1.0-10.0); PLATELET COUNT 219 K/UL (150-450); RED BLOOD COUNT 4.86 M/UL (4.20-5.40); RED CELL DISTRIBUTION WIDTH 14.7 % (11.6-14.8); WHITE BLOOD COUNT 9.9 K/UL (4.8-10.8)
[2018-06-04 06:43] LABS: ALANINE AMINOTRANSFERASE 13 U/L (12-78); ALBUMIN 2.2 G/DL (3.4-5.0); ALBUMIN/GLOBULIN RATIO 0.6 (1.0-2.7); ALKALINE PHOSPHATASE 61 U/L (46-116); ANION GAP 8 mmol/L (5-15); ASPARTATE AMINO TRANSFERASE 14 U/L (15-37); BILIRUBIN,TOTAL 0.4 MG/DL (0.2-1.0); BLOOD UREA NITROGEN 30 mg/dL (7-18); CALCIUM 8.8 MG/DL (8.5-10.1); CARBON DIOXIDE 32 MMOL/L (21-32); CHLORIDE 102 MMOL/L (98-107); CREATININE 1.4 MG/DL (0.55-1.30); PHOSPHORUS 4.7 MG/DL (2.5-4.9); POTASSIUM 4.4 MMOL/L (3.5-5.1); SODIUM 142 MMOL/L (136-145)
--- NOTE | 2018-06-04 06:57 | NUR ---
RESPIRATORY NOTE: received pt on current order of vent settings and intubated with ett 7.5 placed 21cm at the lip; secured via anchor fast with no redness around facial area. no resp distress noted at this time. alarms are set and audible. pt tolerating breathing tx well. vent is plugged into red outlet with ambu bag at bedside. will cont to monitor.
--- NOTE | 2018-06-04 07:20 | NUR ---
HAND-OFF: Report given to MARGY Blair.
--- NOTE | 2018-06-04 07:30 | NUR ---
NURSE NOTES: Received report from Kane RN. Patient lethargic, responds to shaking. A/Ox1. ST on monitor. Patient ETT 7.5/21 cm lip. AC 12 VT 500 FiO2 45% Peep 5. Lung sounds diminished bilaterally, secretions ramirez, scant output. Patient has RT nares NGT. Osmolite 1.5 at 45 ml/hr. No residual noted. abdomen round, non tender, bowel sounds present in all quadrants. No BM this shift. Sinclair intact, draining yellow urine. Edema and ecchymosis of upper extremities. MILY PICC line,TKO. RT hand 22G, S.L. Bilateral soft wrist restraints noted. Will continue plan of care. HOB elevated. bed locked and in on low position, bed alarm on, call light within reach. Will continue to monitor pt and implement care.
--- NOTE | 2018-06-04 08:20 | NUR ---
NURSE NOTES: radiology here to do CXR
--- NOTE | 2018-06-04 08:30 | NUR ---
NURSE NOTES: called pharmacy to refill pyxes. will administer on arrival
--- NOTE | 2018-06-04 08:36 | NUR ---
NURSE NOTES: JUAN Fitzpatrick, here to see pt. Wants ABG for am. possible weaning attempt today post results.
[2018-06-04] MEDS ORDERED: Tubing IV Secondary IV ONE (09:05)
[2018-06-04] MEDS ORDERED: NS 275ml ONE (09:05)
--- NOTE | 2018-06-04 09:09 | General Progress Note ---
Assessment/Plan Assessment/Plan Assessment - Resp failure - NGT dependent - COPD - CHF - PNA - Anemia - Poor prognosis Recommendations - NGT feeds - Vent care - Elevated HOB - Monitor residuals - Abx - Pulmonary toilet - Await family decision re PEG Subjective ROS Limited/Unobtainable: No Allergies: Coded Allergies: Mushroom (Verified Allergy, Severe, 05/28/18) MORPHINE (Unverified Allergy, Intermediate, Itching, 01/04/15) PENICILLINS (Unverified Allergy, Intermediate, Hives, 01/04/15) CELECOXIB (Verified Allergy, Mild, 01/15/09) Objective Last 24 Hour Vital Signs Date Time Temp Pulse Resp B/P (MAP) Pulse Ox O2 Delivery O2 Flow Rate FiO2 06/04/18 08:30 104 18 35 06/04/18 08:00 45 06/04/18 08:00 Mechanical Ventilator 06/04/18 06:59 105 16 100 Mechanical Ventilator 35 06/04/18 06:55 106 17 100 Mechanical Ventilator 35 06/04/18 06:51 102 18 35 06/04/18 05:09 93 12 35 06/04/18 05:00 98.5 95 12 102/55 (71) 99 06/04/18 04:00 102 06/04/18 04:00 102 12 110/55 (73) 99 06/04/18 04:00 Mechanical Ventilator 06/04/18 04:00 45 06/04/18 03:13 103 13 35 06/04/18 03:00 102 13 114/57 (76) 99 06/04/18 02:00 97 12 135/56 (82) 99 06/04/18 01:00 104 15 104/51 (68) 99 06/04/18 00:55 99.8 06/04/18 00:44 103 12 35 06/04/18 00:36 103 12 100 Mechanical Ventilator 35 06/04/18 00:26 101 12 97 Mechanical Ventilator 35 06/04/18 00:00 Mechanical Ventilator 06/04/18 00:00 109 06/04/18 00:00 99.5 101 15 135/69 (91) 99 06/03/18 23:00 100.2 101 16 135/69 (91) 99 06/03/18 22:29 105 16 35 06/03/18 22:00 107 16 135/69 (91) 99 06/03/18 21:29 111 16 45 06/03/18 21:00 109 16 121/62 (81) 99 06/03/18 20:00 Mechanical Ventilator 06/03/18 20:00 45 06/03/18 20:00 108 16 138/68 (91) 99 06/03/18 20:00 93 06/03/18 19:54 104 16 100 Mechanical Ventilator 45 06/03/18 19:44 102 16 99 Mechanical Ventilator 45 06/03/18 19:37 102 16 45 06/03/18 19:00 99.5 100 16 134/59 (84) 99 06/03/18 18:00 101 16 130/54 (79) 99 06/03/18 18:00 103 92/55 06/03/18 17:18 112 12 45 06/03/18 17:00 95 15 135/58 (83) 99 06/03/18 16:00 45 06/03/18 16:00 98 15 140/62 (88) 99 06/03/18 16:00 Mechanical Ventilator Mechanical Ventilator Mechanical Ventilator 06/03/18 16:00 105 06/03/18 15:15 118 12 45 06/03/18 15:00 99.0 105 14 144/60 (88) 99 06/03/18 14:00 111 14 147/63 (91) 99 06/03/18 13:02 105 12 100 Mechanical Ventilator 45 06/03/18 13:00 103 12 45 06/03/18 13:00 103 12 124/62 (82) 99 06/03/18 12:54 103 12 99 Mechanical Ventilator 45 06/03/18 12:00 113 06/03/18 12:00 105 16 144/60 (88) 99 06/03/18 12:00 Mechanical Ventilator Mechanical Ventilator Mechanical Ventilator 06/03/18 12:00 45 06/03/18 11:05 119 12 45 06/03/18 11:00 107 12 128/60 (82) 99 06/03/18 10:00 102 12 98/55 (69) 99 Intake and Output 06/03/18 06/04/18 18:59 06:59 Intake Total 625 ml 660 ml Output Total 620 ml 360 ml Balance 5 ml 300 ml Free Water 120 ml IV Total 130 ml Tube Feeding 495 ml 540 ml Output Urine Total 620 ml 360 ml Laboratory Tests 06/04/18 05:22: White Blood Count 9.9, Red Blood Count 4.86, Hemoglobin 10.4L, Hematocrit 33.7L , Mean Corpuscular Volume 69L, Mean Corpuscular Hemoglobin 21.4L, Mean Corpuscular Hemoglobin Concent 30.9L, Red Cell Distribution Width 14.7, Platelet Count 219, Mean Platelet Volume 7.5, Neutrophils (%) (Auto) 73.0, Lymphocytes (%) (Auto) 19.1L, Monocytes (%) (Auto) 5.1, Eosinophils (%) (Auto) 2.2, Basophils (%) (Auto) 0.5, Sodium Level 142, Potassium Level 4.4, Chloride Level 102, Carbon Dioxide Level 32, Anion Gap 8, Blood Urea Nitrogen 30H, Creatinine 1.4H, Estimat Glomerular Filtration Rate , Glucose Level 135H, Calcium Level 8.8, Phosphorus Level 4.7, Magnesium Level 3.2H, Total Bilirubin 0.4, Aspartate Amino Transf (AST/SGOT) 14L, Alanine Aminotransferase (ALT/SGPT) 13, Alkaline Phosphatase 61, Total Protein 6.0L, Albumin 2.2L, Globulin 3.8, Albumin/Globulin Ratio 0.6L Height (Feet): 5 Height (Inches): 4.00 Weight (Pounds): 118 General Appearance: lethargic EENT: normal ENT inspection Neck: supple Cardiovascular: normal rate Respiratory/Chest: decreased breath sounds Abdomen: normal bowel sounds, non tender, soft Extremities: non-tender Jacobo Acevedo MD Jun 04, 2018 09:09
[2018-06-04] MEDS: Amiodarone 200mg tab ORAL SCH (09:44)
[2018-06-04] MEDS: Heparin 5000 units/ml inj SUBQ SCH ×2 (09:46→20:45)
[2018-06-04] MEDS: Cefepime HCl 1 GM in D5W 55 ML IV SCH (09:50)
[2018-06-04] MEDS: Pantoprazole Inj IV SCH (10:45)
--- NOTE | 2018-06-04 12:19 | Diagnostic Imaging Report ---
EXAM: XR Chest, 1 View CLINICAL HISTORY: DYSPNEA TECHNIQUE: Frontal view of the chest. COMPARISON: Chest x-ray 05/28/18 FINDINGS: Lungs: Mild hazy opacities of the right lung. Pleural space: Probable tiny right pleural effusion. No pneumothorax. Heart: Unremarkable. No cardiomegaly. Mediastinum: Unremarkable. Bones/joints: Degenerative changes of the spine. Tubes, lines and devices: Endotracheal tube 2.7 cm above the genet. Right PICC line tip to the mid SVC. NG tube tip in stomach. IMPRESSION: 1. Mild hazy opacities of the right lung. 2. Probable tiny right pleural effusion. 3. Lines and tubes in good position.
--- NOTE | 2018-06-04 12:38 | NUR ---
NURSE NOTES: spoke with JUAN Kumar, regarding ABG results, will not proceed with weaning today. will try again tomorrow.
--- NOTE | 2018-06-04 12:39 | Pulmonolgy Critical Care Note ---
Critical Care - Asmt/Plan Assessment/Plan: ASSESSMENT Acute hypercapnic respiratory failure , requiring intubation sepsis Aspiration pneumonia with MRSA R lung collapse likely due to massive pleural effusion with atelectasis- improving Acute encephalopathy Pleural effusion COPD CAD CHF Atrial fibrillation Hyperlipidemia Anemia Dementia PLAN OF CARE ICU status vent support pulm toilet with HHN and CPT severe hypercapnia leading to intubation, probably acute on chronic, not ready for weaning, tachy intermittently will start weaning protocol in am if stable last CXR with improvement in near compete opacification of R lung fup with CXR initial blood cx with Staph hominis , likely contaminant as per ID, influenza screen test negative, sputum culture with MRSA repeated blood culture negative abx regimen as per ID recommendation Cardio follows Echo with EF 60% , no WMA and RVSP of 44 consistent with mild pulmonary hypertension continue Amiodarone, no A fib on tele lipid panel with elevated LDL- 125 and triglycerides- 179 consider statin in future gentle IVF, monitor renal parameters and electrolytes correct electrolytes as needed , avoid nephrotoxic fup with further nephro recs monitor HH with goal to keep Hgb above 7, bowel regimen pain management supportive care case discussed and evaluated by supervising physician Critical Care - Objective Last 24 Hour Vital Signs Date Time Temp Pulse Resp B/P (MAP) Pulse Ox O2 Delivery O2 Flow Rate FiO2 06/04/18 12:00 97 06/04/18 11:00 98 14 140/71 (94) 100 06/04/18 10:31 99 12 35 06/04/18 10:00 100 12 83/52 (62) 100 06/04/18 09:45 101 129/70 06/04/18 09:00 103 16 125/59 (81) 99 06/04/18 08:30 104 18 35 06/04/18 08:00 45 06/04/18 08:00 103 06/04/18 08:00 99.9 99 12 129/54 (79) 99 06/04/18 08:00 Mechanical Ventilator 06/04/18 07:00 105 15 116/74 (88) 98 06/04/18 06:59 105 16 100 Mechanical Ventilator 35 06/04/18 06:55 106 17 100 Mechanical Ventilator 35 06/04/18 06:51 102 18 35 06/04/18 05:09 93 12 35 06/04/18 05:00 98.5 95 12 102/55 (71) 99 06/04/18 04:00 102 06/04/18 04:00 102 12 110/55 (73) 99 06/04/18 04:00 Mechanical Ventilator 06/04/18 04:00 45 06/04/18 03:13 103 13 35 06/04/18 03:00 102 13 114/57 (76) 99 06/04/18 02:00 97 12 135/56 (82) 99 06/04/18 01:00 104 15 104/51 (68) 99 06/04/18 00:55 99.8 06/04/18 00:44 103 12 35 06/04/18 00:36 103 12 100 Mechanical Ventilator 35 06/04/18 00:26 101 12 97 Mechanical Ventilator 35 06/04/18 00:00 Mechanical Ventilator 06/04/18 00:00 109 06/04/18 00:00 99.5 101 15 135/69 (91) 99 06/03/18 23:00 100.2 101 16 135/69 (91) 99 06/03/18 22:29 105 16 35 06/03/18 22:00 107 16 135/69 (91) 99 06/03/18 21:29 111 16 45 06/03/18 21:00 109 16 121/62 (81) 99 06/03/18 20:00 Mechanical Ventilator 06/03/18 20:00 45 06/03/18 20:00 108 16 138/68 (91) 99 06/03/18 20:00 93 06/03/18 19:54 104 16 100 Mechanical Ventilator 45 06/03/18 19:44 102 16 99 Mechanical Ventilator 45 06/03/18 19:37 102 16 45 06/03/18 19:00 99.5 100 16 134/59 (84) 99 06/03/18 18:00 101 16 130/54 (79) 99 06/03/18 18:00 103 92/55 06/03/18 17:18 112 12 45 06/03/18 17:00 95 15 135/58 (83) 99 06/03/18 16:00 45 06/03/18 16:00 98 15 140/62 (88) 99 06/03/18 16:00 Mechanical Ventilator Mechanical Ventilator Mechanical Ventilator 06/03/18 16:00 105 06/03/18 15:15 118 12 45 06/03/18 15:00 99.0 105 14 144/60 (88) 99 06/03/18 14:00 111 14 147/63 (91) 99 06/03/18 13:02 105 12 100 Mechanical Ventilator 45 06/03/18 13:00 103 12 45 06/03/18 13:00 103 12 124/62 (82) 99 06/03/18 12:54 103 12 99 Mechanical Ventilator 45 Status: awake, other - intubated, on Vent AC in NAD Condition: critical HEENT: atraumatic, normocephalic, other - OP with ET in place, intact, NG tube with TF Lungs: clear Heart: HR/BP stable, other - RUE PICC intact Abdomen: active bowel sounds Extremities: no C/C/E Critical Care - Subjective ROS Limited/Unobtainable: Yes Interval Events: afebrile, no leucocytosis no signs of resp distress on current settings ABG with nearly resolved hypercapnia Condition: critical IV Access: PICC - RUE intact EKG Rhythm: Sinus Rhythm FI02: 35 Vent Support Breath Rate: 12 Vent Support Mode: AC Vent Tidal Volume: 500 Sputum Amount: Small PEEP: 5.0 PIP: 26 Tube Feeding Amount: 45 I&O: Intake and Output 06/03/18 06/04/18 19:00 07:00 Intake Total 565 ml 660 ml Output Total 600 ml 360 ml Balance -35 ml 300 ml Free Water 120 ml IV Total 55 ml Tube Feeding 510 ml 540 ml Output Urine Total 600 ml 360 ml CXR: . Mild hazy opacities of the right lung. 2. Probable tiny right pleural effusion. 3. Lines and tubes in good position. ET-Tube: 7.5 ET Position: 21 Nanette Kumar NP Jun 04, 2018 12:39
[2018-06-04] MEDS: Vancomycin 1gm in D5W 275ml IVPB SCH (13:25)
--- NOTE | 2018-06-04 14:00 | NUR ---
NURSE NOTES: pt cleaned, repositioned. oral care provided and suction. hob>30. bed alarm on, locked and in low position.
--- NOTE | 2018-06-04 16:02 | Nephrology Progress Note ---
Assessment/Plan Problem List: (1) Urinary outflow obstruction Assessment: resolved after grewal (2) Acute respiratory failure (3) Dementia (4) Afib Assessment Urinary out let obstruction, relieved after grewal Normal serum Cr Anemia, Low MCV High Ca corrected for low ALbumin other conditions: (1) Acute respiratory failure (2) Aspiration pneumonia (3) Acute encephalopathy (4) Pleural effusion (5) COPD (chronic obstructive pulmonary disease) (6) CAD (coronary artery disease) (7) Dementia Plan vent management K and Phos and Mag as needed slow Hydrate Anemia porter Adjust BP meds fu Lytes Gastric support pulm support- not tolerating bipap consider tube feeding as po is POOR Subjective ROS Limited/Unobtainable: Yes Objective Objective Last 24 Hour Vital Signs Date Time Temp Pulse Resp B/P (MAP) Pulse Ox O2 Delivery O2 Flow Rate FiO2 06/04/18 14:30 100 14 35 06/04/18 14:02 101 16 100 Mechanical Ventilator 35 06/04/18 13:55 91 14 35 06/04/18 13:55 103 16 100 Mechanical Ventilator 35 06/04/18 12:00 Mechanical Ventilator 06/04/18 12:00 97 06/04/18 12:00 45 06/04/18 11:00 98 14 140/71 (94) 100 06/04/18 10:31 99 12 35 06/04/18 10:00 100 12 83/52 (62) 100 06/04/18 09:45 101 129/70 06/04/18 09:00 103 16 125/59 (81) 99 06/04/18 08:30 104 18 35 06/04/18 08:00 45 06/04/18 08:00 103 06/04/18 08:00 99.9 99 12 129/54 (79) 99 06/04/18 08:00 Mechanical Ventilator 06/04/18 07:00 105 15 116/74 (88) 98 06/04/18 06:59 105 16 100 Mechanical Ventilator 35 06/04/18 06:55 106 17 100 Mechanical Ventilator 35 06/04/18 06:51 102 18 35 06/04/18 05:09 93 12 35 06/04/18 05:00 98.5 95 12 102/55 (71) 99 06/04/18 04:00 102 06/04/18 04:00 102 12 110/55 (73) 99 06/04/18 04:00 Mechanical Ventilator 06/04/18 04:00 45 06/04/18 03:13 103 13 35 06/04/18 03:00 102 13 114/57 (76) 99 06/04/18 02:00 97 12 135/56 (82) 99 06/04/18 01:00 104 15 104/51 (68) 99 06/04/18 00:55 99.8 06/04/18 00:44 103 12 35 06/04/18 00:36 103 12 100 Mechanical Ventilator 35 06/04/18 00:26 101 12 97 Mechanical Ventilator 35 06/04/18 00:00 Mechanical Ventilator 06/04/18 00:00 109 06/04/18 00:00 99.5 101 15 135/69 (91) 99 06/03/18 23:00 100.2 101 16 135/69 (91) 99 06/03/18 22:29 105 16 35 06/03/18 22:00 107 16 135/69 (91) 99 06/03/18 21:29 111 16 45 06/03/18 21:00 109 16 121/62 (81) 99 06/03/18 20:00 Mechanical Ventilator 06/03/18 20:00 45 06/03/18 20:00 108 16 138/68 (91) 99 06/03/18 20:00 93 06/03/18 19:54 104 16 100 Mechanical Ventilator 45 06/03/18 19:44 102 16 99 Mechanical Ventilator 45 06/03/18 19:37 102 16 45 06/03/18 19:00 99.5 100 16 134/59 (84) 99 06/03/18 18:00 101 16 130/54 (79) 99 06/03/18 18:00 103 92/55 06/03/18 17:18 112 12 45 06/03/18 17:00 95 15 135/58 (83) 99 Intake and Output 06/03/18 06/04/18 19:00 07:00 Intake Total 565 ml 660 ml Output Total 600 ml 360 ml Balance -35 ml 300 ml Free Water 120 ml IV Total 55 ml Tube Feeding 510 ml 540 ml Output Urine Total 600 ml 360 ml Laboratory Tests 06/04/18 05:22: White Blood Count 9.9, Red Blood Count 4.86, Hemoglobin 10.4L, Hematocrit 33.7L , Mean Corpuscular Volume 69L, Mean Corpuscular Hemoglobin 21.4L, Mean Corpuscular Hemoglobin Concent 30.9L, Red Cell Distribution Width 14.7, Platelet Count 219, Mean Platelet Volume 7.5, Neutrophils (%) (Auto) 73.0, Lymphocytes (%) (Auto) 19.1L, Monocytes (%) (Auto) 5.1, Eosinophils (%) (Auto) 2.2, Basophils (%) (Auto) 0.5, Sodium Level 142, Potassium Level 4.4, Chloride Level 102, Carbon Dioxide Level 32, Anion Gap 8, Blood Urea Nitrogen 30H, Creatinine 1.4H, Estimat Glomerular Filtration Rate , Glucose Level 135H, Calcium Level 8.8, Phosphorus Level 4.7, Magnesium Level 3.2H, Total Bilirubin 0.4, Aspartate Amino Transf (AST/SGOT) 14L, Alanine Aminotransferase (ALT/SGPT) 13, Alkaline Phosphatase 61, Total Protein 6.0L, Albumin 2.2L, Globulin 3.8, Albumin/Globulin Ratio 0.6L 06/04/18 08:34: Arterial Blood pH 7.489H, Arterial Blood Partial Pressure CO2 46.0H, Arterial Blood Partial Pressure O2 86.2, Arterial Blood HCO3 34.2H, Arterial Blood Oxygen Saturation 95.9, Arterial Blood Base Excess 9.7*H, David Test Positive Height (Feet): 5 Height (Inches): 4.00 Weight (Pounds): 118 General Appearance: no apparent distress Cardiovascular: tachycardia Respiratory/Chest: decreased breath sounds Abdomen: distended Kendrick Jimenez MD Jun 04, 2018 16:02
--- NOTE | 2018-06-04 17:32 | NUR ---
NURSE NOTES: Family at bedside. Family ok with thought of PEG placement if needed in future but would like more info from MD before consenting
--- NOTE | 2018-06-04 18:02 | General Progress Note ---
Assessment/Plan Problem List: (1) encephalopathy due to toxin (2) Dementia ICD Codes: F03.90 - Unspecified dementia without behavioral disturbance SNOMED: [id number] Assessment/Plan dcseroquel 12.5mg po bid seroquel 25mg q 6hr prn cont restraints. Subjective Allergies: Coded Allergies: Mushroom (Verified Allergy, Severe, 05/28/18) MORPHINE (Unverified Allergy, Intermediate, Itching, 01/04/15) PENICILLINS (Unverified Allergy, Intermediate, Hives, 01/04/15) CELECOXIB (Verified Allergy, Mild, 01/15/09) Subjective agitated confused Objective Last 24 Hour Vital Signs Date Time Temp Pulse Resp B/P (MAP) Pulse Ox O2 Delivery O2 Flow Rate FiO2 06/04/18 17:59 93 90/46 06/04/18 16:42 100.5 06/04/18 16:40 102 14 35 06/04/18 16:00 102 06/04/18 16:00 35 06/04/18 16:00 Mechanical Ventilator 06/04/18 14:30 100 14 35 06/04/18 14:02 101 16 100 Mechanical Ventilator 35 06/04/18 13:55 91 14 35 06/04/18 13:55 103 16 100 Mechanical Ventilator 35 06/04/18 12:00 Mechanical Ventilator 06/04/18 12:00 97 06/04/18 12:00 35 06/04/18 11:00 98 14 140/71 (94) 100 06/04/18 10:31 99 12 35 06/04/18 10:00 100 12 83/52 (62) 100 06/04/18 09:45 101 129/70 06/04/18 09:00 103 16 125/59 (81) 99 06/04/18 08:30 104 18 35 06/04/18 08:00 45 06/04/18 08:00 103 06/04/18 08:00 99.9 99 12 129/54 (79) 99 06/04/18 08:00 Mechanical Ventilator 06/04/18 07:00 105 15 116/74 (88) 98 06/04/18 06:59 105 16 100 Mechanical Ventilator 35 06/04/18 06:55 106 17 100 Mechanical Ventilator 35 06/04/18 06:51 102 18 35 06/04/18 05:09 93 12 35 06/04/18 05:00 98.5 95 12 102/55 (71) 99 06/04/18 04:00 102 06/04/18 04:00 102 12 110/55 (73) 99 06/04/18 04:00 Mechanical Ventilator 06/04/18 04:00 45 06/04/18 03:13 103 13 35 06/04/18 03:00 102 13 114/57 (76) 99 06/04/18 02:00 97 12 135/56 (82) 99 06/04/18 01:00 104 15 104/51 (68) 99 06/04/18 00:44 103 12 35 06/04/18 00:36 103 12 100 Mechanical Ventilator 35 06/04/18 00:26 101 12 97 Mechanical Ventilator 35 06/04/18 00:00 Mechanical Ventilator 06/04/18 00:00 109 06/04/18 00:00 99.5 101 15 135/69 (91) 99 06/03/18 23:00 100.2 101 16 135/69 (91) 99 06/03/18 22:29 105 16 35 06/03/18 22:00 107 16 135/69 (91) 99 06/03/18 21:29 111 16 45 06/03/18 21:00 109 16 121/62 (81) 99 06/03/18 20:00 Mechanical Ventilator 06/03/18 20:00 45 06/03/18 20:00 108 16 138/68 (91) 99 06/03/18 20:00 93 06/03/18 19:54 104 16 100 Mechanical Ventilator 45 06/03/18 19:44 102 16 99 Mechanical Ventilator 45 06/03/18 19:37 102 16 45 06/03/18 19:00 99.5 100 16 134/59 (84) 99 Intake and Output 06/03/18 06/04/18 19:00 07:00 Intake Total 565 ml 660 ml Output Total 600 ml 360 ml Balance -35 ml 300 ml Free Water 120 ml IV Total 55 ml Tube Feeding 510 ml 540 ml Output Urine Total 600 ml 360 ml Laboratory Tests 06/04/18 05:22: White Blood Count 9.9, Red Blood Count 4.86, Hemoglobin 10.4L, Hematocrit 33.7L , Mean Corpuscular Volume 69L, Mean Corpuscular Hemoglobin 21.4L, Mean Corpuscular Hemoglobin Concent 30.9L, Red Cell Distribution Width 14.7, Platelet Count 219, Mean Platelet Volume 7.5, Neutrophils (%) (Auto) 73.0, Lymphocytes (%) (Auto) 19.1L, Monocytes (%) (Auto) 5.1, Eosinophils (%) (Auto) 2.2, Basophils (%) (Auto) 0.5, Sodium Level 142, Potassium Level 4.4, Chloride Level 102, Carbon Dioxide Level 32, Anion Gap 8, Blood Urea Nitrogen 30H, Creatinine 1.4H, Estimat Glomerular Filtration Rate , Glucose Level 135H, Calcium Level 8.8, Phosphorus Level 4.7, Magnesium Level 3.2H, Total Bilirubin 0.4, Aspartate Amino Transf (AST/SGOT) 14L, Alanine Aminotransferase (ALT/SGPT) 13, Alkaline Phosphatase 61, Total Protein 6.0L, Albumin 2.2L, Globulin 3.8, Albumin/Globulin Ratio 0.6L 06/04/18 08:34: Arterial Blood pH 7.489H, Arterial Blood Partial Pressure CO2 46.0H, Arterial Blood Partial Pressure O2 86.2, Arterial Blood HCO3 34.2H, Arterial Blood Oxygen Saturation 95.9, Arterial Blood Base Excess 9.7*H, David Test Positive Height (Feet): 5 Height (Inches): 4.00 Weight (Pounds): 118 General Appearance: confused, agitated Liz Lo MD Jun 04, 2018 18:02
--- NOTE | 2018-06-04 19:26 | NUR ---
HAND-OFF: Report given to josh.
[2018-06-04] MEDS: Dyna-Hex 2% Top Sol 2oz TOPIC SCH (19:45)
--- NOTE | 2018-06-04 19:45 | NUR ---
NURSE NOTES: Patient response to voice, on ETT to vent ac12/tv500/fio2 35%/peep 5, o2 saturation 100% noted, NGT to right nares, ongoing Osmolite 1.5 at 45ml/hr, residue 30ml noted, kept hob over 30 degree, abdomen soft, hypoactive bowel sound to 4 quadrants, no bowel movement status, F/C intact and patent, yellow urine outed, PICC line to right upper arm, intact and patent, cleaned and dried dressing status, 2 point soft restraints for safety, on P200 bed, lower bed position, provided call light within reach, will continue to monitor.
--- NOTE | 2018-06-04 20:00 | NUR ---
NURSE NOTES: Seen the patient by Dr. HERNANDEZ, no new order made.
--- NOTE | 2018-06-04 20:04 | General Progress Note ---
Assessment/Plan Status: not improved Assessment/Plan This is an 87-year-old female admitted with chronic obstructive pulmonary disease exacerbation, right lower lobe infiltrate/pneumonia with altered mental status and acute kidney injury. The patient will be admitted to [facility] with the following medical problems. 1. Chronic obstructive pulmonary disease exacerbation and pneumonia. The patient has been seen by Pulmonary. Infectious Disease has been consulted, pancultured. IV antibiotics per ID. Continue with BiPAP and suction p.r.n. Transition to Venturi-mask when stable. 2. Acute kidney injury. We will monitor I's and O's, gentle intravenous fluids. Repeat a BMP in a.m. Consider Nephrology consult. 3. History of chronic atrial fibrillation. Continue with amiodarone. The patient is in sinus rhythm at this time. 4. History of hypertension. Continue with amlodipine and hold for systolic blood pressure less than 110. 5. Altered mental status, most likely from above conditions. We will keep n.p.o. except for medications and start IV fluids. 6. DVT prophylaxis with heparin subcutaneous and SCDs. 7. The patient is Full Code per policy. We will discuss with the family. 8. hypokalmia Plan: - now in ICU on VENT support - continue present care - iV antibioitics and fluids - NGT placed for nutrition - monitor lights pattient is full code per family's wish discussed with ICU nurse - wean off vent per ICU team discussed with nurse Subjective Date patient seen: Jun 04, 2018 ROS Limited/Unobtainable: Yes Allergies: Coded Allergies: Mushroom (Verified Allergy, Severe, 05/28/18) MORPHINE (Unverified Allergy, Intermediate, Itching, 01/04/15) PENICILLINS (Unverified Allergy, Intermediate, Hives, 01/04/15) CELECOXIB (Verified Allergy, Mild, 01/15/09) Subjective patient with acute respiratory failure continues to remain intubated in ICU, unable to wean off due to patient is tachycardic Objective Last 24 Hour Vital Signs Date Time Temp Pulse Resp B/P (MAP) Pulse Ox O2 Delivery O2 Flow Rate FiO2 06/04/18 19:13 90 14 100 Mechanical Ventilator 35 06/04/18 19:03 87 12 100 Mechanical Ventilator 35 06/04/18 19:02 85 12 35 06/04/18 17:59 93 90/46 06/04/18 16:42 100.5 06/04/18 16:40 102 14 35 06/04/18 16:00 102 06/04/18 16:00 100.5 105 17 92/66 (75) 100 06/04/18 16:00 35 06/04/18 16:00 Mechanical Ventilator 06/04/18 14:30 100 14 35 06/04/18 14:02 101 16 100 Mechanical Ventilator 35 06/04/18 13:55 91 14 35 06/04/18 13:55 103 16 100 Mechanical Ventilator 35 06/04/18 12:00 100.0 97 13 90/46 (61) 98 06/04/18 12:00 Mechanical Ventilator 06/04/18 12:00 97 06/04/18 12:00 35 06/04/18 11:00 98 14 140/71 (94) 100 06/04/18 10:31 99 12 35 06/04/18 10:00 100 12 83/52 (62) 100 06/04/18 09:45 101 129/70 06/04/18 09:00 103 16 125/59 (81) 99 06/04/18 08:30 104 18 35 06/04/18 08:00 45 06/04/18 08:00 103 06/04/18 08:00 99.9 99 12 129/54 (79) 99 06/04/18 08:00 Mechanical Ventilator 06/04/18 07:00 105 15 116/74 (88) 98 06/04/18 06:59 105 16 100 Mechanical Ventilator 35 06/04/18 06:55 106 17 100 Mechanical Ventilator 35 06/04/18 06:51 102 18 35 06/04/18 05:09 93 12 35 06/04/18 05:00 98.5 95 12 102/55 (71) 99 06/04/18 04:00 102 06/04/18 04:00 102 12 110/55 (73) 99 06/04/18 04:00 Mechanical Ventilator 06/04/18 04:00 45 06/04/18 03:13 103 13 35 06/04/18 03:00 102 13 114/57 (76) 99 06/04/18 02:00 97 12 135/56 (82) 99 06/04/18 01:00 104 15 104/51 (68) 99 06/04/18 00:44 103 12 35 06/04/18 00:36 103 12 100 Mechanical Ventilator 35 06/04/18 00:26 101 12 97 Mechanical Ventilator 35 06/04/18 00:00 Mechanical Ventilator 06/04/18 00:00 109 06/04/18 00:00 99.5 101 15 135/69 (91) 99 06/03/18 23:00 100.2 101 16 135/69 (91) 99 06/03/18 22:29 105 16 35 06/03/18 22:00 107 16 135/69 (91) 99 06/03/18 21:29 111 16 45 06/03/18 21:00 109 16 121/62 (81) 99 Intake and Output 06/03/18 06/04/18 19:00 07:00 Intake Total 565 ml 660 ml Output Total 600 ml 360 ml Balance -35 ml 300 ml Free Water 120 ml IV Total 55 ml Tube Feeding 510 ml 540 ml Output Urine Total 600 ml 360 ml Laboratory Tests 06/04/18 05:22: White Blood Count 9.9, Red Blood Count 4.86, Hemoglobin 10.4L, Hematocrit 33.7L , Mean Corpuscular Volume 69L, Mean Corpuscular Hemoglobin 21.4L, Mean Corpuscular Hemoglobin Concent 30.9L, Red Cell Distribution Width 14.7, Platelet Count 219, Mean Platelet Volume 7.5, Neutrophils (%) (Auto) 73.0, Lymphocytes (%) (Auto) 19.1L, Monocytes (%) (Auto) 5.1, Eosinophils (%) (Auto) 2.2, Basophils (%) (Auto) 0.5, Sodium Level 142, Potassium Level 4.4, Chloride Level 102, Carbon Dioxide Level 32, Anion Gap 8, Blood Urea Nitrogen 30H, Creatinine 1.4H, Estimat Glomerular Filtration Rate , Glucose Level 135H, Calcium Level 8.8, Phosphorus Level 4.7, Magnesium Level 3.2H, Total Bilirubin 0.4, Aspartate Amino Transf (AST/SGOT) 14L, Alanine Aminotransferase (ALT/SGPT) 13, Alkaline Phosphatase 61, Total Protein 6.0L, Albumin 2.2L, Globulin 3.8, Albumin/Globulin Ratio 0.6L 06/04/18 08:34: Arterial Blood pH 7.489H, Arterial Blood Partial Pressure CO2 46.0H, Arterial Blood Partial Pressure O2 86.2, Arterial Blood HCO3 34.2H, Arterial Blood Oxygen Saturation 95.9, Arterial Blood Base Excess 9.7*H, David Test Positive Height (Feet): 5 Height (Inches): 4.00 Weight (Pounds): 118 General Appearance: no apparent distress, alert Neck: non-tender, supple Cardiovascular: normal rate, regular rhythm, no gallop/murmur, no JVD Respiratory/Chest: chest wall non-tender, normal breath sounds, no respiratory distress Abdomen: non tender, soft, no mass Extremities: non-tender, normal inspection, no calf tenderness Edema: no edema noted Arm (L), no edema noted Arm (R), no edema noted Leg (L), no edema noted Leg (R), no edema noted Pedal (L), no edema noted Pedal (R), no edema noted Generalized Neurologic: unresponsive Skin: warm/dry Lymphatic: normal anterior cervical (L), normal anterior cervical (R), normal posterior cervical (L), normal posterior cervical (R), normal submandibular (L) , normal submandibular (R), normal supraclavicular (L), normal supraclavicular ( R), normal axillary (L), normal axillary (R), normal inguinal (L), normal inguinal (R), normal other Cruz Valderrama MD Jun 04, 2018 20:04
[2018-06-04] MEDS: Miralax 17gm pkt ORAL PRN (20:46)
--- NOTE | 2018-06-04 21:15 | NUR ---
NURSE NOTES: Patient tried to sitting, did not followed commands, anxious status, secured 2 point soft restraints.
--- NOTE | 2018-06-04 21:19 | NUR ---
NURSE NOTES: Given ATIVAN 2mg by ivp slowly as prn ordered for anxiety, will continue to monitor.
--- NOTE | 2018-06-04 23:10 | NUR ---
NURSE NOTES: Patient asleep status, no pain or distress noted at this time.
[2018-06-05] VITALS (24 sets, daily range): BP systolic 96–139; BP diastolic 42–71
--- NOTE | 2018-06-05 01:05 | NUR ---
NURSE NOTES: Asleep status, no pain or distress noted at this time.
[2018-06-05] MEDS: Albuterol/Ipratropium 3ml neb HHN SCH ×4 (01:14→18:59)
--- NOTE | 2018-06-05 03:30 | NUR ---
NURSE NOTES: Morning care and oral care done, no bowel movement.
[2018-06-05] MEDS: LORazepam Inj 2mg/ml 1ml IV PRN ×2 (04:36→20:57)
--- NOTE | 2018-06-05 04:36 | NUR ---
NURSE NOTES: Patient awoke, anxious, did not follow commands, tried to remove line and sitting that given Ativan 2mg ivp slowly as prn ordered, will continue to monitor.
[2018-06-05 05:43] LABS: BASOPHILS % (AUTO) 0.7 % (0.0-2.0); EOSINOPHILS % (AUTO) 2.5 % (0.0-3.0); HEMATOCRIT 29.6 % (37.0-47.0); HEMOGLOBIN 9.1 G/DL (12.0-16.0); LYMPHOCYTES % (AUTO) 16.5 % (20.0-45.0); MEAN CORPUSCULAR VOLUME 70 FL (80-99); NEUTROPHILS % (AUTO) 75.3 % (45.0-75.0); PLATELET COUNT 209 K/UL (150-450); RED BLOOD COUNT 4.23 M/UL (4.20-5.40); WHITE BLOOD COUNT 10.5 K/UL (4.8-10.8)
[2018-06-05 05:52] LABS: ANION GAP 2 mmol/L (5-15); BLOOD UREA NITROGEN 37 mg/dL (7-18); CALCIUM 8.4 MG/DL (8.5-10.1); CARBON DIOXIDE 36 MMOL/L (21-32); CHLORIDE 104 MMOL/L (98-107); CREATININE 1.4 MG/DL (0.55-1.30); POTASSIUM 4.6 MMOL/L (3.5-5.1); SODIUM 142 MMOL/L (136-145)
--- NOTE | 2018-06-05 06:30 | NUR ---
NURSE NOTES: No acute distress noted at this shift.
--- NOTE | 2018-06-05 07:05 | NUR ---
RESPIRATORY NOTE: Patient received mechanically ventilated on PB 840 with current vent settings. Patient is orally intubated with ETT tube size 7.5 with 21cm at the lip line that is secured with an anchor fast. Patient presents with bilateral coarse breath sounds upon auscultation and small amount of thick white secretions were suctioned via inline suction system. There is an ambu bag available at the bedside and the vent is connected to a red outlet. Vent alarms are functional and audible. Will continue to monitor.
--- NOTE | 2018-06-05 07:15 | NUR ---
HAND-OFF: Report given to CATALINA/MARGY.
--- NOTE | 2018-06-05 07:35 | NUR ---
NURSE NOTES: Received report from Francisco Palumbo RN. Patient is asleep and however, when her name is called, patient responds to name with tracking and tactile stimulus. Patient appears very lethargic because she quickly fell back to sleep. Patient is being monitored on the cafeteria monitor, VS 112/49, HR 99, RR 13 SPO2 98%. Patient is orally intubated with ETT 7.5 21 cm at the lip with vent settings AC 12 TV 500 FiO2 35% Peep 5. Upon auscultation, patient sounds diminished bilaterally at the bases. Oral care was performed as well as ET suctioning with secretions of ramirez/whitish removed. Patient has an NGT running Osmolite 1.5 at 45 ml/hr with no residual noted and a 100 ml/hr given. Patient has hyperactive bowel sounds in all four quadrants. Patient has a Sinclair Catheter that is patent and draining yellow urine to gravity. Patient has a MILY PICC line that is TKO. Patient has ecchymosis BUE and is very edematous. Patient is very impulsive and confused. Patient has BL soft wrist restraints. Pulses are palpable and skin intact. Safety measures are in place with bed locked, HOB elevated with call light within reach. Will continue to monitor and follow plan of care.
--- NOTE | 2018-06-05 08:25 | Pulmonolgy Critical Care Note ---
Critical Care - Asmt/Plan Assessment/Plan: ASSESSMENT Acute hypercapnic respiratory failure , requiring intubation sepsis Aspiration pneumonia with MRSA R lung collapse likely due to massive pleural effusion with atelectasis- improving Acute encephalopathy Pleural effusion COPD CAD CHF Atrial fibrillation Hyperlipidemia Anemia Dementia PLAN OF CARE ICU status vent support pulm toilet with HHN and CPT severe hypercapnia leading to intubation, probably acute on chronic, continue weaning protocol as tolerated last CXR with improvement in near compete opacification of R lung fup with CXR and ABG in am initial blood cx with Staph hominis , likely contaminant as per ID, influenza screen test negative, sputum culture with MRSA repeated blood culture negative abx regimen as per ID recommendation Cardio follows Echo with EF 60% , no WMA and RVSP of 44 consistent with mild pulmonary hypertension continue Amiodarone, no A fib on tele lipid panel with elevated LDL- 125 and triglycerides- 179 consider statin in future gentle IVF, monitor renal parameters and electrolytes correct electrolytes as needed , avoid nephrotoxic fup with further nephro recs monitor HH with goal to keep Hgb above 7, bowel regimen pain management supportive care case discussed and evaluated by supervising physician Critical Care - Objective Last 24 Hour Vital Signs Date Time Temp Pulse Resp B/P (MAP) Pulse Ox O2 Delivery O2 Flow Rate FiO2 06/05/18 07:10 103 17 97 Mechanical Ventilator 35 06/05/18 07:00 102 16 131/54 (79) 95 06/05/18 06:58 103 17 35 06/05/18 06:00 97 16 109/52 (71) 99 06/05/18 05:01 102 14 35 06/05/18 05:00 102 18 115/48 (70) 100 06/05/18 04:00 35 06/05/18 04:00 Mechanical Ventilator 06/05/18 04:00 99.2 98 19 120/51 (74) 100 06/05/18 03:01 98 06/05/18 03:00 97 12 97/50 (66) 100 06/05/18 02:37 106 17 35 06/05/18 02:00 98 14 139/50 (79) 100 06/05/18 01:22 99 16 100 Mechanical Ventilator 35 06/05/18 01:18 95 19 35 06/05/18 01:15 90 14 100 Mechanical Ventilator 35 06/05/18 01:00 88 12 136/55 (82) 100 06/05/18 00:00 35 06/05/18 00:00 98.3 94 12 96/46 (63) 100 06/05/18 00:00 Mechanical Ventilator 06/04/18 23:34 98 06/04/18 23:00 96 18 108/64 (79) 100 06/04/18 22:40 102 17 35 06/04/18 22:00 97 12 97/49 (65) 98 06/04/18 21:00 103 20 125/55 (78) 98 06/04/18 20:32 109 19 35 06/04/18 20:00 35 06/04/18 20:00 Mechanical Ventilator 06/04/18 20:00 98.2 97 12 109/53 (71) 98 06/04/18 19:41 94 06/04/18 19:13 90 14 100 Mechanical Ventilator 35 06/04/18 19:03 87 12 100 Mechanical Ventilator 35 06/04/18 19:02 85 12 35 06/04/18 19:00 90 12 92/45 (61) 98 06/04/18 17:59 93 90/46 06/04/18 16:42 100.5 06/04/18 16:40 102 14 35 06/04/18 16:00 102 06/04/18 16:00 100.5 105 17 92/66 (75) 100 06/04/18 16:00 35 06/04/18 16:00 Mechanical Ventilator 06/04/18 14:30 100 14 35 06/04/18 14:02 101 16 100 Mechanical Ventilator 35 06/04/18 13:55 91 14 35 06/04/18 13:55 103 16 100 Mechanical Ventilator 35 06/04/18 12:00 100.0 97 13 90/46 (61) 98 06/04/18 12:00 Mechanical Ventilator 06/04/18 12:00 97 06/04/18 12:00 35 06/04/18 11:00 98 14 140/71 (94) 100 06/04/18 10:31 99 12 35 06/04/18 10:00 100 12 83/52 (62) 100 06/04/18 09:45 101 129/70 06/04/18 09:00 103 16 125/59 (81) 99 06/04/18 08:30 104 18 35 Objective: Status: awake, ntubated, on Vent AC in NAD Condition: critical HEENT: atraumatic, normocephalic, OP with ET in place, intact, NG tube with TF Lungs: clear Heart: HR/BP stable, RUE PICC intact Abdomen: active bowel sounds Extremities: no C/C/E Critical Care - Subjective ROS Limited/Unobtainable: Yes Interval Events: no fever, no leukocytosis no signs of resp distress on current settings creat up to 1.4 not able to tolerate weaning yesterday Condition: critical IV Access: PICC - RUE intact EKG Rhythm: Sinus Tachycardia - 100-106 FI02: 35 Vent Support Breath Rate: 12 Vent Support Mode: AC Vent Tidal Volume: 500 Sputum Amount: Small PEEP: 5.0 PIP: 28 Tube Feeding Amount: 45 I&O: Intake and Output 06/04/18 06/05/18 18:59 06:59 Intake Total 1137.416 ml 760 ml Output Total 425 ml 425 ml Balance 712.416 ml 335 ml Free Water 60 ml 120 ml IV Total 477.416 ml Tube Feeding 540 ml 540 ml Blood Product 60 ml Other 100 ml Output Urine Total 425 ml 425 ml CXR: 06/04 1. Mild hazy opacities of the right lung. 2. Probable tiny right pleural effusion. 3. Lines and tubes in good position. ET-Tube: 7.5 ET Position: 21 Nanette Kumar NP Jun 05, 2018 08:25
--- NOTE | 2018-06-05 08:33 | General Progress Note ---
Assessment/Plan Assessment/Plan Assessment - Resp failure - NGT dependent - COPD - CHF - PNA - Anemia - Poor prognosis Recommendations - NGT feeds - Vent care - Elevated HOB - Monitor residuals - Abx - Pulmonary toilet - Await family decision re PEG Subjective ROS Limited/Unobtainable: No Allergies: Coded Allergies: Mushroom (Verified Allergy, Severe, 05/28/18) MORPHINE (Unverified Allergy, Intermediate, Itching, 01/04/15) PENICILLINS (Unverified Allergy, Intermediate, Hives, 01/04/15) CELECOXIB (Verified Allergy, Mild, 01/15/09) Objective Last 24 Hour Vital Signs Date Time Temp Pulse Resp B/P (MAP) Pulse Ox O2 Delivery O2 Flow Rate FiO2 06/05/18 07:10 103 17 97 Mechanical Ventilator 35 06/05/18 07:00 102 16 131/54 (79) 95 06/05/18 06:58 103 17 35 06/05/18 06:00 97 16 109/52 (71) 99 06/05/18 05:01 102 14 35 06/05/18 05:00 102 18 115/48 (70) 100 06/05/18 04:00 35 06/05/18 04:00 Mechanical Ventilator 06/05/18 04:00 99.2 98 19 120/51 (74) 100 06/05/18 03:01 98 06/05/18 03:00 97 12 97/50 (66) 100 06/05/18 02:37 106 17 35 06/05/18 02:00 98 14 139/50 (79) 100 06/05/18 01:22 99 16 100 Mechanical Ventilator 35 06/05/18 01:18 95 19 35 06/05/18 01:15 90 14 100 Mechanical Ventilator 35 06/05/18 01:00 88 12 136/55 (82) 100 06/05/18 00:00 35 06/05/18 00:00 98.3 94 12 96/46 (63) 100 06/05/18 00:00 Mechanical Ventilator 06/04/18 23:34 98 06/04/18 23:00 96 18 108/64 (79) 100 06/04/18 22:40 102 17 35 06/04/18 22:00 97 12 97/49 (65) 98 06/04/18 21:00 103 20 125/55 (78) 98 06/04/18 20:32 109 19 35 06/04/18 20:00 35 06/04/18 20:00 Mechanical Ventilator 06/04/18 20:00 98.2 97 12 109/53 (71) 98 06/04/18 19:41 94 06/04/18 19:13 90 14 100 Mechanical Ventilator 35 06/04/18 19:03 87 12 100 Mechanical Ventilator 35 06/04/18 19:02 85 12 35 06/04/18 19:00 90 12 92/45 (61) 98 06/04/18 17:59 93 90/46 06/04/18 16:42 100.5 06/04/18 16:40 102 14 35 06/04/18 16:00 102 06/04/18 16:00 100.5 105 17 92/66 (75) 100 06/04/18 16:00 35 06/04/18 16:00 Mechanical Ventilator 06/04/18 14:30 100 14 35 06/04/18 14:02 101 16 100 Mechanical Ventilator 35 06/04/18 13:55 91 14 35 06/04/18 13:55 103 16 100 Mechanical Ventilator 35 06/04/18 12:00 100.0 97 13 90/46 (61) 98 06/04/18 12:00 Mechanical Ventilator 06/04/18 12:00 97 06/04/18 12:00 35 06/04/18 11:00 98 14 140/71 (94) 100 06/04/18 10:31 99 12 35 06/04/18 10:00 100 12 83/52 (62) 100 06/04/18 09:45 101 129/70 06/04/18 09:00 103 16 125/59 (81) 99 Intake and Output 06/04/18 06/05/18 18:59 06:59 Intake Total 1137.416 ml 760 ml Output Total 425 ml 425 ml Balance 712.416 ml 335 ml Free Water 60 ml 120 ml IV Total 477.416 ml Tube Feeding 540 ml 540 ml Blood Product 60 ml Other 100 ml Output Urine Total 425 ml 425 ml Laboratory Tests 06/04/18 08:34: Arterial Blood pH 7.489H, Arterial Blood Partial Pressure CO2 46.0H, Arterial Blood Partial Pressure O2 86.2, Arterial Blood HCO3 34.2H, Arterial Blood Oxygen Saturation 95.9, Arterial Blood Base Excess 9.7*H, David Test Positive 06/05/18 04:30: White Blood Count 10.5, Red Blood Count 4.23, Hemoglobin 9.1L, Hematocrit 29.6L , Mean Corpuscular Volume 70L, Mean Corpuscular Hemoglobin 21.5L, Mean Corpuscular Hemoglobin Concent 30.8L, Red Cell Distribution Width 15.0H, Platelet Count 209, Mean Platelet Volume 7.4, Neutrophils (%) (Auto) 75.3H, Lymphocytes (%) (Auto) 16.5L, Monocytes (%) (Auto) 5.0, Eosinophils (%) (Auto) 2.5, Basophils (%) (Auto) 0.7, Sodium Level 142, Potassium Level 4.6, Chloride Level 104, Carbon Dioxide Level 36H, Anion Gap 2L, Blood Urea Nitrogen 37H, Creatinine 1.4H, Estimat Glomerular Filtration Rate , Glucose Level 142H, Calcium Level 8.4L Height (Feet): 5 Height (Inches): 4.00 Weight (Pounds): 118 General Appearance: lethargic EENT: normal ENT inspection Neck: supple Cardiovascular: normal rate Respiratory/Chest: decreased breath sounds Abdomen: normal bowel sounds, non tender, soft Extremities: non-tender Jacobo Acevedo MD Jun 05, 2018 08:33
[2018-06-05] MEDS: Cefepime HCl 1 GM in D5W 55 ML IV SCH (08:38)
[2018-06-05] MEDS: Amiodarone 200mg tab ORAL SCH (08:39)
[2018-06-05] MEDS: Pantoprazole Inj IV SCH (08:40)
[2018-06-05] MEDS: Heparin 5000 units/ml inj SUBQ SCH ×2 (08:56→20:58)
--- NOTE | 2018-06-05 10:03 | Infectious Diseases Prog Note ---
Assessment/Plan Assessment/Plan 87 yo female with PMHx of COPD, HTN, and A.fib sent to the ED from her nuring home for SOB. Sepsis - Likely PNA 06/04 CXR: 1. Mild hazy opacities of the right lung.Probable tiny right pleural effusion.Lines and tubes in good position. 05/28/18 CXR with atalectasis vs consolidation in the right side. 06/01/18 CXR - Extensive right hemithorax opacification UA (-) Sputum Cx 05/28/18 - MRSA (Inf Neg) Urine legionella (-) Positive blood Cx - Likely contaminant BCx 05/28/18 - CoNS BCX 05/30/18 - NGTD Leukocytosis 15 on admit - now resolved Fever, improving,now low grade COPD CAD A. fib PLAN - Continue Cefepime #01/10 and vancomycin #01/10 - Monitor CBC and Temps -u/a w/ reflex, Bcx x2 We will continue to follow Ms. Nowak during this hospitalization. Subjective Allergies: Coded Allergies: Mushroom (Verified Allergy, Severe, 05/28/18) MORPHINE (Unverified Allergy, Intermediate, Itching, 01/04/15) PENICILLINS (Unverified Allergy, Intermediate, Hives, 01/04/15) CELECOXIB (Verified Allergy, Mild, 01/15/09) Subjective TM 100.5 no leukocytosis Objective Vital Signs Last 24 Hour Vital Signs Date Time Temp Pulse Resp B/P (MAP) Pulse Ox O2 Delivery O2 Flow Rate FiO2 06/05/18 08:39 101 112/49 06/05/18 08:30 103 23 35 06/05/18 07:20 94 12 100 Mechanical Ventilator 35 06/05/18 07:10 103 17 97 Mechanical Ventilator 35 06/05/18 07:00 102 16 131/54 (79) 95 06/05/18 06:58 103 17 35 06/05/18 06:00 97 16 109/52 (71) 99 06/05/18 05:01 102 14 35 06/05/18 05:00 102 18 115/48 (70) 100 06/05/18 04:00 35 06/05/18 04:00 Mechanical Ventilator 06/05/18 04:00 99.2 98 19 120/51 (74) 100 06/05/18 03:01 98 2/3/19 03:00 97 12 97/50 (66) 100 06/05/18 02:37 106 17 35 06/05/18 02:00 98 14 139/50 (79) 100 06/05/18 01:22 99 16 100 Mechanical Ventilator 35 06/05/18 01:18 95 19 35 06/05/18 01:15 90 14 100 Mechanical Ventilator 35 06/05/18 01:00 88 12 136/55 (82) 100 06/05/18 00:00 35 06/05/18 00:00 98.3 94 12 96/46 (63) 100 06/05/18 00:00 Mechanical Ventilator 06/04/18 23:34 98 06/04/18 23:00 96 18 108/64 (79) 100 06/04/18 22:40 102 17 35 06/04/18 22:00 97 12 97/49 (65) 98 06/04/18 21:00 103 20 125/55 (78) 98 06/04/18 20:32 109 19 35 06/04/18 20:00 35 06/04/18 20:00 Mechanical Ventilator 06/04/18 20:00 98.2 97 12 109/53 (71) 98 06/04/18 19:41 94 06/04/18 19:13 90 14 100 Mechanical Ventilator 35 06/04/18 19:03 87 12 100 Mechanical Ventilator 35 06/04/18 19:02 85 12 35 06/04/18 19:00 90 12 92/45 (61) 98 06/04/18 17:59 93 90/46 06/04/18 16:42 100.5 06/04/18 16:40 102 14 35 06/04/18 16:00 102 06/04/18 16:00 100.5 105 17 92/66 (75) 100 06/04/18 16:00 35 06/04/18 16:00 Mechanical Ventilator 06/04/18 14:30 100 14 35 06/04/18 14:02 101 16 100 Mechanical Ventilator 35 06/04/18 13:55 91 14 35 06/04/18 13:55 103 16 100 Mechanical Ventilator 35 06/04/18 12:00 100.0 97 13 90/46 (61) 98 06/04/18 12:00 Mechanical Ventilator 06/04/18 12:00 97 06/04/18 12:00 35 06/04/18 11:00 98 14 140/71 (94) 100 06/04/18 10:31 99 12 35 06/04/18 10:00 100 12 83/52 (62) 100 Height (Feet): 5 Height (Inches): 4.00 Weight (Pounds): 118 Laboratory Tests Test 06/05/18 04:30 White Blood Count 10.5 K/UL (4.8-10.8) Red Blood Count 4.23 M/UL (4.20-5.40) Hemoglobin 9.1 G/DL (12.0-16.0) L Hematocrit 29.6 % (37.0-47.0) L Mean Corpuscular Volume 70 FL (80-99) L Mean Corpuscular Hemoglobin 21.5 PG (27.0-31.0) L Mean Corpuscular Hemoglobin Concent 30.8 G/DL (32.0-36.0) L Red Cell Distribution Width 15.0 % (11.6-14.8) H Platelet Count 209 K/UL (150-450) Mean Platelet Volume 7.4 FL (6.5-10.1) Neutrophils (%) (Auto) 75.3 % (45.0-75.0) H Lymphocytes (%) (Auto) 16.5 % (20.0-45.0) L Monocytes (%) (Auto) 5.0 % (1.0-10.0) Eosinophils (%) (Auto) 2.5 % (0.0-3.0) Basophils (%) (Auto) 0.7 % (0.0-2.0) Sodium Level 142 MMOL/L (136-145) Potassium Level 4.6 MMOL/L (3.5-5.1) Chloride Level 104 MMOL/L (98-107) Carbon Dioxide Level 36 MMOL/L (21-32) H Anion Gap 2 mmol/L (5-15) L Blood Urea Nitrogen 37 mg/dL (7-18) H Creatinine 1.4 MG/DL (0.55-1.30) H Estimat Glomerular Filtration Rate mL/min (>60) Glucose Level 142 MG/DL (74-106) H Calcium Level 8.4 MG/DL (8.5-10.1) L Current Medications Medications (Trade) Dose Ordered Sig/Ann Route PRN Reason Start Time Stop Time Status Last Admin Dose Admin Acetaminophen (Tylenol) 650 mg Q4H PRN ORAL fever (temp>100.5F) 06/02/18 13:30 06/27/18 13:29 06/04/18 16:12 Albuterol/ Ipratropium (Albuterol/ Ipratropium) 3 ml Q6HRT HHN 06/04/18 13:00 06/06/18 06:59 06/05/18 07:10 Amiodarone HCl (Cordarone) 100 mg DAILY ORAL 06/03/18 09:00 06/30/18 08:59 06/05/18 08:39 Amlodipine Besylate (Norvasc) 5 mg BID ORAL 06/02/18 18:00 06/27/18 08:59 06/05/18 08:39 Cefepime HCl 1 gm/ Dextrose 55 ml @ 110 mls/hr Q24H IV 06/03/18 09:00 06/09/18 08:59 06/05/18 08:38 Chlorhexidine Gluconate (Myra-Hex 2%) 1 applic DAILY@2000 TOPIC 06/02/18 20:00 07/02/18 19:59 06/04/18 19:45 Heparin Sodium (Porcine) (Heparin 5000 units/ml) 5,000 units EVERY 12 HOURS SUBQ 06/02/18 21:00 06/27/18 08:59 06/05/18 08:56 Lorazepam (Ativan 2mg/ml 1ml) 2 mg Q4H PRN IV For Anxiety 06/02/18 14:30 06/09/18 14:14 06/05/18 04:36 Nitroglycerin (Ntg) 0.4 mg Q5M PRN SL Prn Chest Pain 06/02/18 13:30 06/27/18 13:29 Ondansetron HCl (Zofran) 4 mg Q6H PRN IVP Nausea & Vomiting 06/02/18 13:30 06/27/18 07:29 Pantoprazole (Protonix) 40 mg DAILY IV 06/03/18 09:00 07/03/18 08:59 06/05/18 08:40 Polyethylene Glycol (Miralax) 17 gm DAILYPRN PRN ORAL Constipation 06/02/18 13:30 07/02/18 13:29 06/04/18 20:46 Quetiapine Fumarate (SEROquel) 12.5 mg BID ORAL 06/02/18 18:00 06/29/18 17:59 06/05/18 08:39 Quetiapine Fumarate (SEROquel) 25 mg Q6H PRN ORAL For Anxiety 06/02/18 13:30 06/29/18 13:29 Temazepam (Restoril) 15 mg HSPRN PRN ORAL Insomnia 06/02/18 20:00 06/09/18 19:59 Vancomycin HCl (Vanco rx to dose) 1 ea DAILY PRN MISC Per rx protocol 06/02/18 13:30 07/02/18 13:29 Vancomycin HCl 1 gm/Dextrose 275 ml @ 183.708 mls/hr Q36H IVPB 06/04/18 13:00 06/09/18 12:59 06/04/18 13:25 Natty Hernandes M.D. Jun 05, 2018 10:03
--- NOTE | 2018-06-05 10:30 | NUR ---
NURSE NOTES: Patient was repositioned and VSS. Patient is not in any acute distress. Will continue to monitor
[2018-06-05] MEDS ORDERED: Tubing IV Secondary IV ONE ×2 (10:37→10:44)
[2018-06-05] MEDS ORDERED: NS 275ml ONE (10:44)
[2018-06-05] MEDS ORDERED: Sterile Water Irrig 1000ml IRRIG ONE (10:44)
--- NOTE | 2018-06-05 10:44 | Diagnostic Imaging Report ---
EXAM: XR Chest, 1 View CLINICAL HISTORY: SOB TECHNIQUE: Frontal view of the chest. COMPARISON: Chest x-ray, 06/04/18 747 FINDINGS: Lungs: Stable right hazy lung opacities. Hypoventilatory lungs. Pleural space: Probable tiny right pleural effusion. No pneumothorax. Heart: Unremarkable. No cardiomegaly. Mediastinum: Unremarkable. Bones/joints: Unremarkable. Tubes, lines and devices: Stable endotracheal tube and right PICC line. IMPRESSION: 1. Stable right hazy lung opacities. 2. Probable tiny right pleural effusion.
--- NOTE | 2018-06-05 12:16 | Cardiology Progress Note ---
Assessment/Plan Assessment/Plan COPD, congestive heart failure, atrial fibrillation sinus tachy agitation right lung collapse? cxr reviewed looks better today 06/05 ekg reviewd intubeted chest pt dvt ppx all trop neg cr is normal is npo in on low dose ivf is off diuretic as was dry at admission is more awake on the vent wean as possible Subjective ROS Limited/Unobtainable: Yes Subjective on a vent in [facility] icu no family at bedside Objective Last 24 Hour Vital Signs Date Time Temp Pulse Resp B/P (MAP) Pulse Ox O2 Delivery O2 Flow Rate FiO2 06/05/18 10:54 97 06/05/18 10:34 92 12 35 06/05/18 08:39 101 112/49 06/05/18 08:30 103 23 35 06/05/18 08:00 35 06/05/18 08:00 Mechanical Ventilator Mechanical Ventilator 06/05/18 07:20 94 12 100 Mechanical Ventilator 35 06/05/18 07:10 103 17 97 Mechanical Ventilator 35 06/05/18 07:00 102 16 131/54 (79) 95 06/05/18 06:58 103 17 35 06/05/18 06:00 97 16 109/52 (71) 99 06/05/18 05:01 102 14 35 06/05/18 05:00 102 18 115/48 (70) 100 06/05/18 04:00 35 06/05/18 04:00 Mechanical Ventilator 06/05/18 04:00 99.2 98 19 120/51 (74) 100 06/05/18 03:01 98 06/05/18 03:00 97 12 97/50 (66) 100 06/05/18 02:37 106 17 35 06/05/18 02:00 98 14 139/50 (79) 100 06/05/18 01:22 99 16 100 Mechanical Ventilator 35 06/05/18 01:18 95 19 35 06/05/18 01:15 90 14 100 Mechanical Ventilator 35 06/05/18 01:00 88 12 136/55 (82) 100 06/05/18 00:00 35 06/05/18 00:00 98.3 94 12 96/46 (63) 100 06/05/18 00:00 Mechanical Ventilator 06/04/18 23:34 98 06/04/18 23:00 96 18 108/64 (79) 100 06/04/18 22:40 102 17 35 06/04/18 22:00 97 12 97/49 (65) 98 06/04/18 21:00 103 20 125/55 (78) 98 06/04/18 20:32 109 19 35 06/04/18 20:00 35 06/04/18 20:00 Mechanical Ventilator 06/04/18 20:00 98.2 97 12 109/53 (71) 98 06/04/18 19:41 94 06/04/18 19:13 90 14 100 Mechanical Ventilator 35 06/04/18 19:03 87 12 100 Mechanical Ventilator 35 06/04/18 19:02 85 12 35 06/04/18 19:00 90 12 92/45 (61) 98 06/04/18 17:59 93 90/46 06/04/18 16:42 100.5 06/04/18 16:40 102 14 35 06/04/18 16:00 102 06/04/18 16:00 100.5 105 17 92/66 (75) 100 06/04/18 16:00 35 06/04/18 16:00 Mechanical Ventilator 06/04/18 14:30 100 14 35 06/04/18 14:02 101 16 100 Mechanical Ventilator 35 06/04/18 13:55 91 14 35 06/04/18 13:55 103 16 100 Mechanical Ventilator 35 General Appearance: no apparent distress, alert, on vent, patient on isolation Neck: supple Cardiovascular: normal rate, regular rhythm Respiratory/Chest: lungs clear Abdomen: normal bowel sounds, non tender, soft Extremities: no swelling Intake and Output 06/04/18 06/05/18 18:59 06:59 Intake Total 1137.416 ml 760 ml Output Total 425 ml 425 ml Balance 712.416 ml 335 ml Free Water 60 ml 120 ml IV Total 477.416 ml Tube Feeding 540 ml 540 ml Blood Product 60 ml Other 100 ml Output Urine Total 425 ml 425 ml Laboratory Tests Test 06/05/18 04:30 White Blood Count 10.5 K/UL (4.8-10.8) Red Blood Count 4.23 M/UL (4.20-5.40) Hemoglobin 9.1 G/DL (12.0-16.0) L Hematocrit 29.6 % (37.0-47.0) L Mean Corpuscular Volume 70 FL (80-99) L Mean Corpuscular Hemoglobin 21.5 PG (27.0-31.0) L Mean Corpuscular Hemoglobin Concent 30.8 G/DL (32.0-36.0) L Red Cell Distribution Width 15.0 % (11.6-14.8) H Platelet Count 209 K/UL (150-450) Mean Platelet Volume 7.4 FL (6.5-10.1) Neutrophils (%) (Auto) 75.3 % (45.0-75.0) H Lymphocytes (%) (Auto) 16.5 % (20.0-45.0) L Monocytes (%) (Auto) 5.0 % (1.0-10.0) Eosinophils (%) (Auto) 2.5 % (0.0-3.0) Basophils (%) (Auto) 0.7 % (0.0-2.0) Sodium Level 142 MMOL/L (136-145) Potassium Level 4.6 MMOL/L (3.5-5.1) Chloride Level 104 MMOL/L (98-107) Carbon Dioxide Level 36 MMOL/L (21-32) H Anion Gap 2 mmol/L (5-15) L Blood Urea Nitrogen 37 mg/dL (7-18) H Creatinine 1.4 MG/DL (0.55-1.30) H Estimat Glomerular Filtration Rate mL/min (>60) Glucose Level 142 MG/DL (74-106) H Calcium Level 8.4 MG/DL (8.5-10.1) L Geoffrey Sandhu MD Jun 05, 2018 12:16
--- NOTE | 2018-06-05 13:47 | NUR ---
NURSE NOTES: Patient has secretions. Performed deep suctioning as well as ET suctioning. VSS and patient not in any acute distress. Will continue to monitor. Family at bedside.
--- NOTE | 2018-06-05 14:01 | Nephrology Progress Note ---
Assessment/Plan Problem List: (1) Urinary outflow obstruction Assessment: resolved after grewal (2) Acute respiratory failure (3) Dementia (4) Afib Assessment Urinary out let obstruction, relieved after grewal Normal serum Cr Anemia, Low MCV High Ca corrected for low ALbumin other conditions: (1) Acute respiratory failure (2) Aspiration pneumonia (3) Acute encephalopathy (4) Pleural effusion (5) COPD (chronic obstructive pulmonary disease) (6) CAD (coronary artery disease) (7) Dementia Plan vent management K and Phos and Mag as needed slow Hydrate Anemia porter Adjust BP meds fu Lytes Gastric support pulm support- not tolerating bipap consider tube feeding ( PEG) as po is POOR Subjective ROS Limited/Unobtainable: Yes Objective Objective Last 24 Hour Vital Signs Date Time Temp Pulse Resp B/P (MAP) Pulse Ox O2 Delivery O2 Flow Rate FiO2 06/05/18 13:47 106 16 100 Mechanical Ventilator 35 06/05/18 13:38 111 21 35 06/05/18 13:37 111 21 98 Mechanical Ventilator 35 06/05/18 12:00 Mechanical Ventilator Mechanical Ventilator 06/05/18 12:00 35 06/05/18 12:00 103 06/05/18 12:00 99.1 103 12 106/43 (64) 97 06/05/18 11:00 101 13 105/67 (80) 98 06/05/18 10:54 97 06/05/18 10:34 92 12 35 06/05/18 10:00 93 12 110/43 (65) 98 06/05/18 09:00 93 12 108/47 (67) 98 06/05/18 08:39 101 112/49 06/05/18 08:30 103 23 35 06/05/18 08:00 99.0 96 14 113/42 (65) 98 06/05/18 08:00 95 06/05/18 08:00 35 06/05/18 08:00 Mechanical Ventilator Mechanical Ventilator 06/05/18 07:20 94 12 100 Mechanical Ventilator 35 06/05/18 07:10 103 17 97 Mechanical Ventilator 35 06/05/18 07:00 102 16 131/54 (79) 95 06/05/18 06:58 103 17 35 06/05/18 06:00 97 16 109/52 (71) 99 06/05/18 05:01 102 14 35 06/05/18 05:00 102 18 115/48 (70) 100 06/05/18 04:00 35 06/05/18 04:00 Mechanical Ventilator 06/05/18 04:00 99.2 98 19 120/51 (74) 100 06/05/18 03:01 98 06/05/18 03:00 97 12 97/50 (66) 100 06/05/18 02:37 106 17 35 06/05/18 02:00 98 14 139/50 (79) 100 06/05/18 01:22 99 16 100 Mechanical Ventilator 35 06/05/18 01:18 95 19 35 06/05/18 01:15 90 14 100 Mechanical Ventilator 35 06/05/18 01:00 88 12 136/55 (82) 100 06/05/18 00:00 35 06/05/18 00:00 98.3 94 12 96/46 (63) 100 06/05/18 00:00 Mechanical Ventilator 06/04/18 23:34 98 06/04/18 23:00 96 18 108/64 (79) 100 06/04/18 22:40 102 17 35 06/04/18 22:00 97 12 97/49 (65) 98 06/04/18 21:00 103 20 125/55 (78) 98 06/04/18 20:32 109 19 35 06/04/18 20:00 35 06/04/18 20:00 Mechanical Ventilator 06/04/18 20:00 98.2 97 12 109/53 (71) 98 06/04/18 19:41 94 06/04/18 19:13 90 14 100 Mechanical Ventilator 35 06/04/18 19:03 87 12 100 Mechanical Ventilator 35 06/04/18 19:02 85 12 35 06/04/18 19:00 90 12 92/45 (61) 98 06/04/18 17:59 93 90/46 06/04/18 16:42 100.5 06/04/18 16:40 102 14 35 06/04/18 16:00 102 06/04/18 16:00 100.5 105 17 92/66 (75) 100 06/04/18 16:00 35 06/04/18 16:00 Mechanical Ventilator 06/04/18 14:30 100 14 35 06/04/18 14:02 101 16 100 Mechanical Ventilator 35 Intake and Output 06/04/18 06/05/18 18:59 06:59 Intake Total 1137.416 ml 760 ml Output Total 425 ml 425 ml Balance 712.416 ml 335 ml Free Water 60 ml 120 ml IV Total 477.416 ml Tube Feeding 540 ml 540 ml Blood Product 60 ml Other 100 ml Output Urine Total 425 ml 425 ml Laboratory Tests 06/05/18 04:30: White Blood Count 10.5, Red Blood Count 4.23, Hemoglobin 9.1L, Hematocrit 29.6L , Mean Corpuscular Volume 70L, Mean Corpuscular Hemoglobin 21.5L, Mean Corpuscular Hemoglobin Concent 30.8L, Red Cell Distribution Width 15.0H, Platelet Count 209, Mean Platelet Volume 7.4, Neutrophils (%) (Auto) 75.3H, Lymphocytes (%) (Auto) 16.5L, Monocytes (%) (Auto) 5.0, Eosinophils (%) (Auto) 2.5, Basophils (%) (Auto) 0.7, Sodium Level 142, Potassium Level 4.6, Chloride Level 104, Carbon Dioxide Level 36H, Anion Gap 2L, Blood Urea Nitrogen 37H, Creatinine 1.4H, Estimat Glomerular Filtration Rate , Glucose Level 142H, Calcium Level 8.4L Height (Feet): 5 Height (Inches): 4.00 Weight (Pounds): 118 EENT: other - vented Cardiovascular: tachycardia Respiratory/Chest: decreased breath sounds Abdomen: distended Kendrick Jimenez MD Jun 05, 2018 14:01
--- NOTE | 2018-06-05 15:18 | General Progress Note ---
Assessment/Plan Status: progressing Assessment/Plan This is an 87-year-old female admitted with chronic obstructive pulmonary disease exacerbation, right lower lobe infiltrate/pneumonia with altered mental status and acute kidney injury. The patient will be admitted to [facility] with the following medical problems. 1. Chronic obstructive pulmonary disease exacerbation and pneumonia. The patient has been seen by Pulmonary. Infectious Disease has been consulted, pancultured. IV antibiotics per ID. Continue with BiPAP and suction p.r.n. Transition to Venturi-mask when stable. 2. Acute kidney injury. We will monitor I's and O's, gentle intravenous fluids. Repeat a BMP in a.m. Consider Nephrology consult. 3. History of chronic atrial fibrillation. Continue with amiodarone. The patient is in sinus rhythm at this time. 4. History of hypertension. Continue with amlodipine and hold for systolic blood pressure less than 110. 5. Altered mental status, most likely from above conditions. We will keep n.p.o. except for medications and start IV fluids. 6. DVT prophylaxis with heparin subcutaneous and SCDs. 7. The patient is Full Code per policy. We will discuss with the family. 8. hypokalmia Plan: - now in ICU on VENT support - continue present care - iV antibioitics and fluids - NGT placed for nutrition - monitor lights patient is full code per family's wish discussed with ICU nurse - wean off vent per ICU team discussed with sister at bedside no plan for PEG at this time Subjective Date patient seen: Jun 05, 2018 ROS Limited/Unobtainable: Yes Allergies: Coded Allergies: Mushroom (Verified Allergy, Severe, 05/28/18) MORPHINE (Unverified Allergy, Intermediate, Itching, 01/04/15) PENICILLINS (Unverified Allergy, Intermediate, Hives, 01/04/15) CELECOXIB (Verified Allergy, Mild, 01/15/09) Subjective patient with acute respiratory failure continues to remain intubated in ICU, unable to wean off due to patient is tachycardic Objective Last 24 Hour Vital Signs Date Time Temp Pulse Resp B/P (MAP) Pulse Ox O2 Delivery O2 Flow Rate FiO2 06/05/18 15:00 105 12 111/54 (73) 100 06/05/18 14:00 106 12 115/48 (70) 100 06/05/18 13:47 106 16 100 Mechanical Ventilator 35 06/05/18 13:38 111 21 35 06/05/18 13:37 111 21 98 Mechanical Ventilator 35 06/05/18 13:00 105 12 107/46 (66) 100 06/05/18 12:00 Mechanical Ventilator Mechanical Ventilator 06/05/18 12:00 35 06/05/18 12:00 103 06/05/18 12:00 99.1 103 12 106/43 (64) 97 06/05/18 11:00 101 13 105/67 (80) 98 06/05/18 10:54 97 06/05/18 10:34 92 12 35 06/05/18 10:00 93 12 110/43 (65) 98 06/05/18 09:00 93 12 108/47 (67) 98 06/05/18 08:39 101 112/49 06/05/18 08:30 103 23 35 06/05/18 08:00 99.0 96 14 113/42 (65) 98 06/05/18 08:00 95 06/05/18 08:00 35 06/05/18 08:00 Mechanical Ventilator Mechanical Ventilator 06/05/18 07:20 94 12 100 Mechanical Ventilator 35 06/05/18 07:10 103 17 97 Mechanical Ventilator 35 06/05/18 07:00 102 16 131/54 (79) 95 06/05/18 06:58 103 17 35 06/05/18 06:00 97 16 109/52 (71) 99 06/05/18 05:01 102 14 35 06/05/18 05:00 102 18 115/48 (70) 100 06/05/18 04:00 35 06/05/18 04:00 Mechanical Ventilator 06/05/18 04:00 99.2 98 19 120/51 (74) 100 06/05/18 03:01 98 06/05/18 03:00 97 12 97/50 (66) 100 06/05/18 02:37 106 17 35 06/05/18 02:00 98 14 139/50 (79) 100 06/05/18 01:22 99 16 100 Mechanical Ventilator 35 06/05/18 01:18 95 19 35 06/05/18 01:15 90 14 100 Mechanical Ventilator 35 06/05/18 01:00 88 12 136/55 (82) 100 06/05/18 00:00 35 06/05/18 00:00 98.3 94 12 96/46 (63) 100 06/05/18 00:00 Mechanical Ventilator 06/04/18 23:34 98 06/04/18 23:00 96 18 108/64 (79) 100 06/04/18 22:40 102 17 35 06/04/18 22:00 97 12 97/49 (65) 98 06/04/18 21:00 103 20 125/55 (78) 98 06/04/18 20:32 109 19 35 06/04/18 20:00 35 06/04/18 20:00 Mechanical Ventilator 06/04/18 20:00 98.2 97 12 109/53 (71) 98 06/04/18 19:41 94 06/04/18 19:13 90 14 100 Mechanical Ventilator 35 06/04/18 19:03 87 12 100 Mechanical Ventilator 35 06/04/18 19:02 85 12 35 06/04/18 19:00 90 12 92/45 (61) 98 06/04/18 17:59 93 90/46 06/04/18 16:42 100.5 06/04/18 16:40 102 14 35 06/04/18 16:00 102 06/04/18 16:00 100.5 105 17 92/66 (75) 100 06/04/18 16:00 35 06/04/18 16:00 Mechanical Ventilator Intake and Output 06/04/18 06/05/18 18:59 06:59 Intake Total 1137.416 ml 760 ml Output Total 425 ml 425 ml Balance 712.416 ml 335 ml Free Water 60 ml 120 ml IV Total 477.416 ml Tube Feeding 540 ml 540 ml Blood Product 60 ml Other 100 ml Output Urine Total 425 ml 425 ml Laboratory Tests 06/05/18 04:30: White Blood Count 10.5, Red Blood Count 4.23, Hemoglobin 9.1L, Hematocrit 29.6L , Mean Corpuscular Volume 70L, Mean Corpuscular Hemoglobin 21.5L, Mean Corpuscular Hemoglobin Concent 30.8L, Red Cell Distribution Width 15.0H, Platelet Count 209, Mean Platelet Volume 7.4, Neutrophils (%) (Auto) 75.3H, Lymphocytes (%) (Auto) 16.5L, Monocytes (%) (Auto) 5.0, Eosinophils (%) (Auto) 2.5, Basophils (%) (Auto) 0.7, Sodium Level 142, Potassium Level 4.6, Chloride Level 104, Carbon Dioxide Level 36H, Anion Gap 2L, Blood Urea Nitrogen 37H, Creatinine 1.4H, Estimat Glomerular Filtration Rate , Glucose Level 142H, Calcium Level 8.4L, C-Reactive Protein, Quantitative 9.7H Height (Feet): 5 Height (Inches): 4.00 Weight (Pounds): 118 General Appearance: no apparent distress, alert EENT: PERRL/EOMI, pharynx normal Neck: non-tender, supple Cardiovascular: normal peripheral pulses Respiratory/Chest: decreased breath sounds Abdomen: non tender, soft, no mass Extremities: non-tender, normal inspection, no calf tenderness Edema: no edema noted Arm (L), no edema noted Arm (R), no edema noted Leg (L), no edema noted Leg (R), no edema noted Pedal (L), no edema noted Pedal (R), no edema noted Generalized Neurologic: alert, responsive Skin: warm/dry Lymphatic: normal anterior cervical (L), normal anterior cervical (R), normal posterior cervical (L), normal posterior cervical (R), normal submandibular (L) , normal submandibular (R), normal supraclavicular (L), normal supraclavicular ( R), normal axillary (L), normal axillary (R), normal inguinal (L), normal inguinal (R), normal other Cruz Valderrama MD Jun 05, 2018 15:18
--- NOTE | 2018-06-05 19:03 | NUR ---
RESPIRATORY NOTE: Received pt. on 840 vent. Vent settings are: A/C rate of 12, Vt 500, FI02 35%, PEEP +5. No respiratory distress noted, pt. Sp02 @ 100%. Ambu bag @ BS. Vent plugged on red outlet. Will continue to monitor pt.
--- NOTE | 2018-06-05 19:45 | NUR ---
NURSE NOTES: Patient open eyes to name, tried to touch tube, on ETT to vent ac12/tv500/fio2 35%/peep 5, o2 saturation 100% noted, NGT to right nares, ongoing Osmolite 1.5 at 45ml/hr, residue 40ml noted, kept hob over 30 degree, abdomen soft, hypoactive bowel sound to 4 quadrants, no bowel movement status, F/C intact and patent, yellow urine outed, PICC line to right upper arm, intact and patent, cleaned and dried dressing status, 2 point soft restraints for safety, on P200 bed, lower bed position, provided call light within reach, will continue to monitor.
[2018-06-05] MEDS: Dyna-Hex 2% Top Sol 2oz TOPIC SCH (19:55)
[2018-06-05] MEDS: Miralax 17gm pkt ORAL PRN (20:57)
--- NOTE | 2018-06-05 21:44 | General Progress Note ---
Assessment/Plan Problem List: (1) encephalopathy due to toxin (2) Dementia ICD Codes: F03.90 - Unspecified dementia without behavioral disturbance SNOMED: 24481866 Assessment/Plan dcseroquel 12.5mg po bid seroquel 25mg q 6hr prn cont restraints. Subjective Allergies: Coded Allergies: Mushroom (Verified Allergy, Severe, 05/28/18) MORPHINE (Unverified Allergy, Intermediate, Itching, 01/04/15) PENICILLINS (Unverified Allergy, Intermediate, Hives, 01/04/15) CELECOXIB (Verified Allergy, Mild, 01/15/09) Subjective agitated at time waxing and waning of consciousness confused Objective Last 24 Hour Vital Signs Date Time Temp Pulse Resp B/P (MAP) Pulse Ox O2 Delivery O2 Flow Rate FiO2 06/05/18 21:10 92 12 35 06/05/18 21:00 92 12 107/50 (69) 98 06/05/18 20:00 98.5 100 12 103/47 (65) 98 06/05/18 20:00 Mechanical Ventilator 06/05/18 20:00 35 06/05/18 19:07 100 12 100 Mechanical Ventilator 35 06/05/18 19:00 102 14 106/47 (66) 99 06/05/18 18:59 100 12 35 06/05/18 18:59 103 12 100 Mechanical Ventilator 35 06/05/18 18:07 105 127/53 06/05/18 18:00 105 16 134/71 (92) 99 06/05/18 17:17 95 12 35 06/05/18 17:00 102 15 127/53 (77) 98 06/05/18 16:00 103 06/05/18 16:00 Mechanical Ventilator Mechanical Ventilator 06/05/18 16:00 98.9 101 16 109/49 (69) 98 06/05/18 16:00 35 06/05/18 15:28 92 16 35 06/05/18 15:00 105 12 111/54 (73) 100 06/05/18 14:00 106 12 115/48 (70) 100 06/05/18 13:47 106 16 100 Mechanical Ventilator 35 06/05/18 13:38 111 21 35 06/05/18 13:37 111 21 98 Mechanical Ventilator 35 06/05/18 13:00 105 12 107/46 (66) 100 06/05/18 12:00 Mechanical Ventilator Mechanical Ventilator 06/05/18 12:00 35 06/05/18 12:00 103 06/05/18 12:00 99.1 103 12 106/43 (64) 97 06/05/18 11:00 101 13 105/67 (80) 98 06/05/18 10:54 97 06/05/18 10:34 92 12 35 06/05/18 10:00 93 12 110/43 (65) 98 06/05/18 09:00 93 12 108/47 (67) 98 06/05/18 08:39 101 112/49 06/05/18 08:30 103 23 35 06/05/18 08:00 99.0 96 14 113/42 (65) 98 06/05/18 08:00 95 06/05/18 08:00 35 06/05/18 08:00 Mechanical Ventilator Mechanical Ventilator 06/05/18 07:20 94 12 100 Mechanical Ventilator 35 06/05/18 07:10 103 17 97 Mechanical Ventilator 35 06/05/18 07:00 102 16 131/54 (79) 95 06/05/18 06:58 103 17 35 06/05/18 06:00 97 16 109/52 (71) 99 06/05/18 05:01 102 14 35 06/05/18 05:00 102 18 115/48 (70) 100 06/05/18 04:00 35 06/05/18 04:00 Mechanical Ventilator 06/05/18 04:00 99.2 98 19 120/51 (74) 100 06/05/18 03:01 98 06/05/18 03:00 97 12 97/50 (66) 100 06/05/18 02:37 106 17 35 06/05/18 02:00 98 14 139/50 (79) 100 06/05/18 01:22 99 16 100 Mechanical Ventilator 35 06/05/18 01:18 95 19 35 06/05/18 01:15 90 14 100 Mechanical Ventilator 35 06/05/18 01:00 88 12 136/55 (82) 100 06/05/18 00:00 35 06/05/18 00:00 98.3 94 12 96/46 (63) 100 06/05/18 00:00 Mechanical Ventilator 06/04/18 23:34 98 2/2/19 23:00 96 18 108/64 (79) 100 06/04/18 22:40 102 17 35 06/04/18 22:00 97 12 97/49 (65) 98 Intake and Output 06/04/18 06/05/18 19:00 07:00 Intake Total 1137.416 ml 760 ml Output Total 435 ml 425 ml Balance 702.416 ml 335 ml Free Water 60 ml 120 ml IV Total 477.416 ml Tube Feeding 540 ml 540 ml Blood Product 60 ml Other 100 ml Output Urine Total 435 ml 425 ml Laboratory Tests 06/05/18 04:30: White Blood Count 10.5, Red Blood Count 4.23, Hemoglobin 9.1L, Hematocrit 29.6L , Mean Corpuscular Volume 70L, Mean Corpuscular Hemoglobin 21.5L, Mean Corpuscular Hemoglobin Concent 30.8L, Red Cell Distribution Width 15.0H, Platelet Count 209, Mean Platelet Volume 7.4, Neutrophils (%) (Auto) 75.3H, Lymphocytes (%) (Auto) 16.5L, Monocytes (%) (Auto) 5.0, Eosinophils (%) (Auto) 2.5, Basophils (%) (Auto) 0.7, Sodium Level 142, Potassium Level 4.6, Chloride Level 104, Carbon Dioxide Level 36H, Anion Gap 2L, Blood Urea Nitrogen 37H, Creatinine 1.4H, Estimat Glomerular Filtration Rate , Glucose Level 142H, Calcium Level 8.4L, C-Reactive Protein, Quantitative 9.7H Height (Feet): 5 Height (Inches): 4.00 Weight (Pounds): 118 General Appearance: confused, agitated Liz Lo MD Jun 05, 2018 21:44
--- NOTE | 2018-06-05 22:00 | NUR ---
NURSE NOTES: Repositioned, oral care was done.
[2018-06-06] VITALS (24 sets, daily range): BP systolic 98–134; BP diastolic 40–60
--- NOTE | 2018-06-06 00:20 | NUR ---
NURSE NOTES: Patient asleep status, no pin or distress noted at this time.
[2018-06-06] MEDS: Vancomycin 1gm in D5W 275ml IVPB SCH (01:00)
[2018-06-06] MEDS: Albuterol/Ipratropium 3ml neb HHN SCH ×4 (01:31→20:11)
--- NOTE | 2018-06-06 02:38 | NUR ---
NURSE NOTES: No distress noted, same vent setting status, will continue plan of care.
[2018-06-06] MEDS: LORazepam Inj 2mg/ml 1ml IV PRN ×2 (03:35→20:43)
--- NOTE | 2018-06-06 03:35 | NUR ---
NURSE NOTES: Patient tried to remove endotube, anxious status that given ativan 2mg by ivp as prn ordered.
--- NOTE | 2018-06-06 05:00 | NUR ---
NURSE NOTES: Morning care was done, no bowel movement status, will continue to monitor.
[2018-06-06 05:56] LABS: BASOPHILS % (AUTO) 0.7 % (0.0-2.0); EOSINOPHILS % (AUTO) 2.5 % (0.0-3.0); HEMATOCRIT 26.2 % (37.0-47.0); HEMOGLOBIN 8.2 G/DL (12.0-16.0); LYMPHOCYTES % (AUTO) 19.1 % (20.0-45.0); MEAN CORPUSCULAR VOLUME 69 FL (80-99); MONOCYTES % (AUTO) 5.6 % (1.0-10.0); NEUTROPHILS % (AUTO) 72.1 % (45.0-75.0); PLATELET COUNT 208 K/UL (150-450); RED BLOOD COUNT 3.78 M/UL (4.20-5.40); WHITE BLOOD COUNT 11.3 K/UL (4.8-10.8)
--- NOTE | 2018-06-06 06:05 | NUR ---
NURSE NOTES: Patient tried to remove line, did not follow commands that secured restraints, will continue to monitor.
[2018-06-06 06:17] LABS: PHOSPHORUS 2.2 MG/DL (2.5-4.9)
[2018-06-06 06:32] LABS: ALANINE AMINOTRANSFERASE 13 U/L (12-78); ALBUMIN/GLOBULIN RATIO 0.5 (1.0-2.7); ALKALINE PHOSPHATASE 64 U/L (46-116); ANION GAP 3 mmol/L (5-15); ASPARTATE AMINO TRANSFERASE 14 U/L (15-37); BILIRUBIN,TOTAL 0.2 MG/DL (0.2-1.0); BLOOD UREA NITROGEN 38 mg/dL (7-18); CALCIUM 8.1 MG/DL (8.5-10.1); CARBON DIOXIDE 36 MMOL/L (21-32); CHLORIDE 104 MMOL/L (98-107); CREATININE 1.5 MG/DL (0.55-1.30); POTASSIUM 4.4 MMOL/L (3.5-5.1); SODIUM 143 MMOL/L (136-145)
--- NOTE | 2018-06-06 07:13 | NUR ---
HAND-OFF: Report given to AUGUSTIN/MARGY.
--- NOTE | 2018-06-06 07:24 | NUR ---
PT. RECEIVED STABLE ON AC, 12, 500, 30%, +5. VENT CIRCUIT AND SX TUBING SECURE AND OUT OF THE WAY. BILATERAL SOFT WRIST RETRAINS SECURE AND IN PLACE. NO SIGN OF RESPIRATORY DISTRESS NOTED AT THIS TIME. WILL CONTINUE TO MONITOR.
--- NOTE | 2018-06-06 07:42 | NUR ---
NURSE NOTES: Received report from Francisco RN. Pt resting with eyes closed; responds to pain. Orally intubated with ETT 7.5, 21cm, at lip level on mode AC 12, VT 500, FiO2 35% and PEEP of 5%. O2 sat 97%. NGT to right nares patent; placement confirmed via auscultation. Osmolite 1.5 running at 45cc/hr; no residual noted at this time. MILY PICC line TKO; dressing dry and intact. Bilateral soft wrist restraints in place; peripheral pulses present and skin intact. Sinclair catheter draining minimal yellow urine to gravity Bed leanna din lowpositionw ith side rails up x3 and call light within reach. RT at bedside rounding.
[2018-06-06] MEDS: Cefepime HCl 1 GM in D5W 55 ML IV SCH (08:35)
[2018-06-06] MEDS: Pantoprazole Inj IV SCH (08:36)
[2018-06-06] MEDS: Amiodarone 200mg tab ORAL SCH (08:36)
[2018-06-06] MEDS: Heparin 5000 units/ml inj SUBQ SCH ×2 (08:41→20:43)
--- NOTE | 2018-06-06 09:30 | NUR ---
NURSE NOTES: Scant yellowish white sputum suctioned from ETT. Oral care done. Pt repositioned for comfort. Pt's granddaughter at bedside. NAD noted.
--- NOTE | 2018-06-06 09:34 | NUR ---
RADIOLOGY DEPT CHEST X-RAY DONE.-P.DYE
[2018-06-06] MEDS ORDERED: Sterile Water Irrig 1000ml IRRIG ONE (10:22)
[2018-06-06] MEDS ORDERED: NS 275ml ONE (10:22)
[2018-06-06] MEDS ORDERED: Tubing IV Secondary IV ONE (10:22)
--- NOTE | 2018-06-06 11:04 | NUR ---
RD ASSESSMENT & RECOMMENDATIONS SEE CARE ACTIVITY FOR COMPLETE ASSESSMENT DAILY ESTIMATED NEEDS: Needs based on Critical care/ 54kg 22-28 kcals/kg 9111-5407 total kcals 1.2-2 g protein/kg 65-108 g total protein 25-30 mL/kg 3915-7372 total fluid mLs NUTRITION DIAGNOSIS: * Swallowing difficulty R/T dysphagia, respiratory status as evidenced by s/p intubation, on NGT feeds, w/ possible pending PEG placement. CURRENT TF:Osmolite 1.5 @45ml/hr ENTERAL NUTRITION RECOMMENDATIONS: Osmolite 1.5 @ 40ml/hr x 24 hrs + Prosource 1pkt daily to provide 960ml, 1440kcal, 60g +11g prot, 731ml free water * Rec to lower goal rate to 40ml/hr + add Prosource 1pkt daily : meets 100% est kcal/prot needs * HOB over 30 degrees/ water flush per MD. --- * WITH ELEV BG-> REC TF CHANGE TO GLUCERNA 1.5, GOAL OF 40ML/HR X24 HRS. * Provides 1440kcal, 79g prot when at goal ADDITIONAL RECOMMENDATIONS: * CALIBRATED bedscale wt for accurate CBW- w/ added SPR mattress+ striker pump, freedom splint * Monitor lytes daily w/ TF, replete as needed (low phos) * MONITOR BG / NEED FOR CARB CONTROL TF . . .
--- NOTE | 2018-06-06 11:16 | NUR ---
NURSE NOTES: Bedside rounding done by Dr. Lo and Dr. Mariee. Pt NSR to CM. O2 sat 98% on current vent setting. NAD noted.
--- NOTE | 2018-06-06 11:37 | Pulmonolgy Critical Care Note ---
Critical Care - Asmt/Plan Problems: (1) Acute respiratory failure (2) Aspiration pneumonia (3) Acute encephalopathy (4) Pleural effusion (5) COPD (chronic obstructive pulmonary disease) (6) CAD (coronary artery disease) (7) Dementia Respiratory: monitor respiratory rate, adjust FIO2, CXR Cardiac: continue to monitor HR/BP Renal: F/U I&O, keep IV fluid, increase IV fluid, check electrolytes Infectious Disease: check cultures, continue antibiotics Gastrointestinal: continue feedings/current rate Hematologic: monitor H/H, transfuse if hgb<8.5 Neurologic: keep patient comfortable Prophylaxis: Protonix, Heparin Time Spent (Minutes): 40 Notes Reviewed: center sales and service associate, renal Discussed with: nurses, consultants, field case manager, family member - with the daughter at the bed site Critical Care - Objective Last 24 Hour Vital Signs Date Time Temp Pulse Resp B/P (MAP) Pulse Ox O2 Delivery O2 Flow Rate FiO2 06/06/18 11:29 86 17 35 06/06/18 11:29 99 06/06/18 11:00 88 12 115/50 (71) 98 06/06/18 10:00 86 12 100/45 (63) 98 06/06/18 09:23 86 12 35 06/06/18 09:00 86 12 106/43 (64) 98 06/06/18 08:42 90 111/50 06/06/18 08:00 98.2 98 12 111/48 (69) 98 06/06/18 08:00 35 06/06/18 08:00 92 06/06/18 08:00 Mechanical Ventilator 06/06/18 07:34 91 13 99 Mechanical Ventilator 35 06/06/18 07:24 81 12 98 Mechanical Ventilator 35 06/06/18 07:24 81 12 35 06/06/18 07:00 82 12 100/40 (60) 98 06/06/18 06:00 77 12 118/47 (70) 97 06/06/18 05:27 83 12 35 06/06/18 05:00 86 12 109/45 (66) 97 06/06/18 04:00 98.5 101 13 114/45 (68) 98 06/06/18 04:00 35 06/06/18 04:00 Mechanical Ventilator 06/06/18 03:22 102 06/06/18 03:19 94 13 35 06/06/18 03:00 93 12 109/45 (66) 98 06/06/18 02:00 84 12 112/44 (66) 100 06/06/18 01:55 80 12 100 Mechanical Ventilator 35 06/06/18 01:32 100 12 35 06/06/18 01:31 100 12 98 Mechanical Ventilator 35 06/06/18 01:00 85 12 100/47 (64) 98 06/06/18 00:00 35 06/06/18 00:00 98.3 89 12 100/42 (61) 98 06/06/18 00:00 Mechanical Ventilator 06/05/18 23:42 91 06/05/18 23:19 93 12 35 06/05/18 23:00 92 12 112/46 (68) 98 06/05/18 22:00 94 12 107/46 (66) 98 06/05/18 21:10 92 12 35 06/05/18 21:00 92 12 107/50 (69) 98 06/05/18 20:00 98.5 100 12 103/47 (65) 98 06/05/18 20:00 Mechanical Ventilator 06/05/18 20:00 35 06/05/18 19:07 100 12 100 Mechanical Ventilator 35 06/05/18 19:00 102 14 106/47 (66) 99 06/05/18 18:59 100 12 35 06/05/18 18:59 103 12 100 Mechanical Ventilator 35 06/05/18 18:57 99 06/05/18 18:07 105 127/53 06/05/18 18:00 105 16 134/71 (92) 99 06/05/18 17:17 95 12 35 06/05/18 17:00 102 15 127/53 (77) 98 06/05/18 16:00 103 06/05/18 16:00 Mechanical Ventilator Mechanical Ventilator 06/05/18 16:00 98.9 101 16 109/49 (69) 98 06/05/18 16:00 35 06/05/18 15:28 92 16 35 06/05/18 15:00 105 12 111/54 (73) 100 06/05/18 14:00 106 12 115/48 (70) 100 06/05/18 13:47 106 16 100 Mechanical Ventilator 35 06/05/18 13:38 111 21 35 06/05/18 13:37 111 21 98 Mechanical Ventilator 35 06/05/18 13:00 105 12 107/46 (66) 100 06/05/18 12:00 Mechanical Ventilator Mechanical Ventilator 06/05/18 12:00 35 06/05/18 12:00 103 06/05/18 12:00 99.1 103 12 106/43 (64) 97 Status: sedated Condition: critical Heart: HR/BP stable Abdomen: non-tender, feeding tube Extremities: edema Decubiti: location Critical Care - Subjective ROS Limited/Unobtainable: Yes Condition: critical EKG Rhythm: Sinus Rhythm FI02: 35 Vent Support Breath Rate: 12 Vent Support Mode: AC Vent Tidal Volume: 500 Sputum Amount: Scant PEEP: 5.0 PIP: 29 Tube Feeding Amount: 45 I&O: Intake and Output 06/05/18 06/06/18 18:59 06:59 Intake Total 910 ml 1035 ml Output Total 620 ml 470 ml Balance 290 ml 565 ml Free Water 120 ml IV Total 110 ml 275 ml Tube Feeding 540 ml 540 ml Other 260 ml 100 ml Output Urine Total 620 ml 470 ml CXR: right lung has opened up. ET in good position ET-Tube: 7.5 ET Position: 21 Labs: Laboratory Tests Test 06/06/18 04:00 06/06/18 09:45 White Blood Count 11.3 K/UL (4.8-10.8) H Red Blood Count 3.78 M/UL (4.20-5.40) L Hemoglobin 8.2 G/DL (12.0-16.0) L Hematocrit 26.2 % (37.0-47.0) L Mean Corpuscular Volume 69 FL (80-99) L Mean Corpuscular Hemoglobin 21.7 PG (27.0-31.0) L Mean Corpuscular Hemoglobin Concent 31.2 G/DL (32.0-36.0) L Red Cell Distribution Width 15.0 % (11.6-14.8) H Platelet Count 208 K/UL (150-450) Mean Platelet Volume 7.4 FL (6.5-10.1) Neutrophils (%) (Auto) 72.1 % (45.0-75.0) Lymphocytes (%) (Auto) 19.1 % (20.0-45.0) L Monocytes (%) (Auto) 5.6 % (1.0-10.0) Eosinophils (%) (Auto) 2.5 % (0.0-3.0) Basophils (%) (Auto) 0.7 % (0.0-2.0) Sodium Level 143 MMOL/L (136-145) Potassium Level 4.4 MMOL/L (3.5-5.1) Chloride Level 104 MMOL/L (98-107) Carbon Dioxide Level 36 MMOL/L (21-32) H Anion Gap 3 mmol/L (5-15) L Blood Urea Nitrogen 38 mg/dL (7-18) H Creatinine 1.5 MG/DL (0.55-1.30) H Estimat Glomerular Filtration Rate mL/min (>60) Glucose Level 126 MG/DL (74-106) H Uric Acid 4.6 MG/DL (2.6-7.2) Calcium Level 8.1 MG/DL (8.5-10.1) L Phosphorus Level 2.2 MG/DL (2.5-4.9) L Magnesium Level 2.5 MG/DL (1.8-2.4) H Total Bilirubin 0.2 MG/DL (0.2-1.0) Aspartate Amino Transf (AST/SGOT) 14 U/L (15-37) L Alanine Aminotransferase (ALT/SGPT) 13 U/L (12-78) Alkaline Phosphatase 64 U/L (46-116) Pro-B-Type Natriuretic Peptide 245 pg/mL (0-125) H Total Protein 5.7 G/DL (6.4-8.2) L Albumin 2.0 G/DL (3.4-5.0) L Globulin 3.7 g/dL Albumin/Globulin Ratio 0.5 (1.0-2.7) L Thyroid Stimulating Hormone (TSH) 0.722 uiU/mL (0.358-3.740) Arterial Blood pH 7.433 (7.350-7.450) Arterial Blood Partial Pressure CO2 52.2 mmHg (35.0-45.0) H Arterial Blood Partial Pressure O2 53.8 mmHg (75.0-100.0) L Arterial Blood HCO3 34.1 mmol/L (22.0-26.0) H Arterial Blood Oxygen Saturation 88.0 % (95-100) *L Arterial Blood Base Excess 8.7 (-2-2) H David Test Positive Yuliet Mariee MD Jun 06, 2018 11:37
[2018-06-06] MEDS ORDERED: Sodium Phosphate 15 MM in NS 275 ML IVPB SCH (12:00)
--- NOTE | 2018-06-06 12:03 | Diagnostic Imaging Report ---
Indication: Dyspnea Comparison: 06/05/2018 A single view chest radiograph was obtained. Findings: Tubes and lines are stable in good position. Heart size is stable and mildly enlarged. Interstitial edema and prominent vascularity again demonstrated. Additional hazy opacity at the right lung base noted. IMPRESSION: Mild CHF with some interval worsening.
--- NOTE | 2018-06-06 12:18 | Infectious Diseases Prog Note ---
Assessment/Plan Assessment/Plan 87 yo feamle with PMHx of COPD, HTN, and A.fib sent to the ED from her nuring home for SOB. Sepsis - Likely PNA 05/28/18 CXR with atalectasis vs consolidation in the right side. 06/01/18 CXR - Extensive right hemithorax opacification UA (-) Sputum Cx 05/28/18 - MRSA (Inf Neg) Urine legionella (-) Positive blood Cx - Likely contaminant BCx 05/28/18 - CoNS BCX 05/30/18 - NGTD Leukocytosis 15 on admit - now resolved Febrile to 101.5 - now resolved COPD CAD A. fib PLAN - Continue Cefepime #10/ and vancomycin #10/ - Monitor CBC and Temps We will continue to follow Ms. Nowak during this hospitalization. Subjective Allergies: Coded Allergies: Mushroom (Verified Allergy, Severe, 05/28/18) MORPHINE (Unverified Allergy, Intermediate, Itching, 01/04/15) PENICILLINS (Unverified Allergy, Intermediate, Hives, 01/04/15) CELECOXIB (Verified Allergy, Mild, 01/15/09) Subjective Intubated Afebrile No Leukocytosis Objective Vital Signs Last 24 Hour Vital Signs Date Time Temp Pulse Resp B/P (MAP) Pulse Ox O2 Delivery O2 Flow Rate FiO2 06/06/18 12:00 35 06/06/18 12:00 Mechanical Ventilator 06/06/18 11:29 86 17 35 06/06/18 11:29 99 06/06/18 11:00 88 12 115/50 (71) 98 06/06/18 10:00 86 12 100/45 (63) 98 06/06/18 09:23 86 12 35 06/06/18 09:00 86 12 106/43 (64) 98 06/06/18 08:42 90 111/50 06/06/18 08:00 98.2 98 12 111/48 (69) 98 06/06/18 08:00 35 06/06/18 08:00 92 06/06/18 08:00 Mechanical Ventilator 06/06/18 07:34 91 13 99 Mechanical Ventilator 35 06/06/18 07:24 81 12 98 Mechanical Ventilator 35 06/06/18 07:24 81 12 35 06/06/18 07:00 82 12 100/40 (60) 98 06/06/18 06:00 77 12 118/47 (70) 97 06/06/18 05:27 83 12 35 06/06/18 05:00 86 12 109/45 (66) 97 06/06/18 04:00 98.5 101 13 114/45 (68) 98 06/06/18 04:00 35 06/06/18 04:00 Mechanical Ventilator 06/06/18 03:22 102 06/06/18 03:19 94 13 35 06/06/18 03:00 93 12 109/45 (66) 98 06/06/18 02:00 84 12 112/44 (66) 100 06/06/18 01:55 80 12 100 Mechanical Ventilator 35 06/06/18 01:32 100 12 35 06/06/18 01:31 100 12 98 Mechanical Ventilator 35 06/06/18 01:00 85 12 100/47 (64) 98 06/06/18 00:00 35 06/06/18 00:00 98.3 89 12 100/42 (61) 98 06/06/18 00:00 Mechanical Ventilator 06/05/18 23:42 91 06/05/18 23:19 93 12 35 06/05/18 23:00 92 12 112/46 (68) 98 06/05/18 22:00 94 12 107/46 (66) 98 06/05/18 21:10 92 12 35 06/05/18 21:00 92 12 107/50 (69) 98 06/05/18 20:00 98.5 100 12 103/47 (65) 98 06/05/18 20:00 Mechanical Ventilator 06/05/18 20:00 35 06/05/18 19:07 100 12 100 Mechanical Ventilator 35 06/05/18 19:00 102 14 106/47 (66) 99 06/05/18 18:59 100 12 35 06/05/18 18:59 103 12 100 Mechanical Ventilator 35 06/05/18 18:57 99 06/05/18 18:07 105 127/53 06/05/18 18:00 105 16 134/71 (92) 99 06/05/18 17:17 95 12 35 06/05/18 17:00 102 15 127/53 (77) 98 06/05/18 16:00 103 06/05/18 16:00 Mechanical Ventilator Mechanical Ventilator 06/05/18 16:00 98.9 101 16 109/49 (69) 98 06/05/18 16:00 35 06/05/18 15:28 92 16 35 06/05/18 15:00 105 12 111/54 (73) 100 06/05/18 14:00 106 12 115/48 (70) 100 06/05/18 13:47 106 16 100 Mechanical Ventilator 35 06/05/18 13:38 111 21 35 06/05/18 13:37 111 21 98 Mechanical Ventilator 35 06/05/18 13:00 105 12 107/46 (66) 100 Height (Feet): 5 Height (Inches): 4.00 Weight (Pounds): 118 Objective General: NAD, cachetic, Intubated on Vent satting well on 35% HEENT: normocephalic, atraumatic, DMM, EOMI Respiratory/Chest: Mild crakles B/L Cardiovascular/Chest: RRR, S1, S2 Abdomen: Soft, NT, ND, + BS Laboratory Tests Test 06/06/18 04:00 06/06/18 09:45 White Blood Count 11.3 K/UL (4.8-10.8) H Red Blood Count 3.78 M/UL (4.20-5.40) L Hemoglobin 8.2 G/DL (12.0-16.0) L Hematocrit 26.2 % (37.0-47.0) L Mean Corpuscular Volume 69 FL (80-99) L Mean Corpuscular Hemoglobin 21.7 PG (27.0-31.0) L Mean Corpuscular Hemoglobin Concent 31.2 G/DL (32.0-36.0) L Red Cell Distribution Width 15.0 % (11.6-14.8) H Platelet Count 208 K/UL (150-450) Mean Platelet Volume 7.4 FL (6.5-10.1) Neutrophils (%) (Auto) 72.1 % (45.0-75.0) Lymphocytes (%) (Auto) 19.1 % (20.0-45.0) L Monocytes (%) (Auto) 5.6 % (1.0-10.0) Eosinophils (%) (Auto) 2.5 % (0.0-3.0) Basophils (%) (Auto) 0.7 % (0.0-2.0) Sodium Level 143 MMOL/L (136-145) Potassium Level 4.4 MMOL/L (3.5-5.1) Chloride Level 104 MMOL/L (98-107) Carbon Dioxide Level 36 MMOL/L (21-32) H Anion Gap 3 mmol/L (5-15) L Blood Urea Nitrogen 38 mg/dL (7-18) H Creatinine 1.5 MG/DL (0.55-1.30) H Estimat Glomerular Filtration Rate mL/min (>60) Glucose Level 126 MG/DL (74-106) H Uric Acid 4.6 MG/DL (2.6-7.2) Calcium Level 8.1 MG/DL (8.5-10.1) L Phosphorus Level 2.2 MG/DL (2.5-4.9) L Magnesium Level 2.5 MG/DL (1.8-2.4) H Total Bilirubin 0.2 MG/DL (0.2-1.0) Aspartate Amino Transf (AST/SGOT) 14 U/L (15-37) L Alanine Aminotransferase (ALT/SGPT) 13 U/L (12-78) Alkaline Phosphatase 64 U/L (46-116) Pro-B-Type Natriuretic Peptide 245 pg/mL (0-125) H Total Protein 5.7 G/DL (6.4-8.2) L Albumin 2.0 G/DL (3.4-5.0) L Globulin 3.7 g/dL Albumin/Globulin Ratio 0.5 (1.0-2.7) L Thyroid Stimulating Hormone (TSH) 0.722 uiU/mL (0.358-3.740) Arterial Blood pH 7.433 (7.350-7.450) Arterial Blood Partial Pressure CO2 52.2 mmHg (35.0-45.0) H Arterial Blood Partial Pressure O2 53.8 mmHg (75.0-100.0) L Arterial Blood HCO3 34.1 mmol/L (22.0-26.0) H Arterial Blood Oxygen Saturation 88.0 % (95-100) *L Arterial Blood Base Excess 8.7 (-2-2) H David Test Positive Current Medications Medications (Trade) Dose Ordered Sig/Ann Route PRN Reason Start Time Stop Time Status Last Admin Dose Admin Acetaminophen (Tylenol) 650 mg Q4H PRN ORAL fever (temp>100.5F) 06/02/18 13:30 06/27/18 13:29 06/04/18 16:12 Albuterol/ Ipratropium (Albuterol/ Ipratropium) 3 ml Q6HRT HHN 06/05/18 13:00 06/07/18 06:59 06/06/18 07:24 Amiodarone HCl (Cordarone) 100 mg DAILY ORAL 06/03/18 09:00 06/30/18 08:59 06/06/18 08:36 Amlodipine Besylate (Norvasc) 5 mg BID ORAL 06/02/18 18:00 06/27/18 08:59 06/06/18 08:42 Cefepime HCl 1 gm/ Dextrose 55 ml @ 110 mls/hr Q24H IV 06/03/18 09:00 06/09/18 08:59 06/06/18 08:35 Chlorhexidine Gluconate (Myra-Hex 2%) 1 applic DAILY@2000 TOPIC 06/02/18 20:00 07/02/18 19:59 06/05/18 19:55 Heparin Sodium (Porcine) (Heparin 5000 units/ml) 5,000 units EVERY 12 HOURS SUBQ 06/02/18 21:00 06/27/18 08:59 06/06/18 08:41 Lorazepam (Ativan 2mg/ml 1ml) 2 mg Q4H PRN IV For Anxiety 06/02/18 14:30 06/09/18 14:14 06/06/18 03:35 Nitroglycerin (Ntg) 0.4 mg Q5M PRN SL Prn Chest Pain 06/02/18 13:30 06/27/18 13:29 Ondansetron HCl (Zofran) 4 mg Q6H PRN IVP Nausea & Vomiting 06/02/18 13:30 06/27/18 07:29 Pantoprazole (Protonix) 40 mg DAILY IV 06/03/18 09:00 07/03/18 08:59 06/06/18 08:36 Polyethylene Glycol (Miralax) 17 gm DAILYPRN PRN ORAL Constipation 06/02/18 13:30 07/02/18 13:29 06/05/18 20:57 Quetiapine Fumarate (SEROquel) 12.5 mg BID ORAL 06/02/18 18:00 06/29/18 17:59 06/06/18 08:42 Quetiapine Fumarate (SEROquel) 25 mg Q6H PRN ORAL For Anxiety 06/02/18 13:30 06/29/18 13:29 Sodium Phosphate 15 mm/Sodium Chloride 280 ml @ 70.273 mls/ hr ONCE IVPB 06/06/18 12:00 06/06/18 16:00 06/06/18 11:02 Temazepam (Restoril) 15 mg HSPRN PRN ORAL Insomnia 06/02/18 20:00 06/09/18 19:59 Vancomycin HCl (Vanco rx to dose) 1 ea DAILY PRN MISC Per rx protocol 06/02/18 13:30 07/02/18 13:29 Vancomycin HCl 1 gm/Dextrose 275 ml @ 183.708 mls/hr Q36H IVPB 06/04/18 13:00 06/09/18 12:59 06/06/18 01:00 Clint Harris MD Jun 06, 2018 12:17
--- NOTE | 2018-06-06 12:59 | NUR ---
NURSE NOTES: Pt sleeping; appears peaceful. Tolerating current vent settings. NSR to CM. Bedsdie rounding done by Dr. Jimenez. Falling and aspiration precautions observed. NDA noted.
--- NOTE | 2018-06-06 13:22 | Nephrology Progress Note ---
Assessment/Plan Problem List: (1) Urinary outflow obstruction Assessment: resolved after grewal (2) Acute respiratory failure (3) Dementia (4) Afib Assessment Urinary out let obstruction, relieved after grewal Normal serum Cr Anemia, Low MCV High Ca corrected for low ALbumin other conditions: (1) Acute respiratory failure (2) Aspiration pneumonia (3) Acute encephalopathy (4) Pleural effusion (5) COPD (chronic obstructive pulmonary disease) (6) CAD (coronary artery disease) (7) Dementia Plan phos IV vent management K and Phos and Mag as needed slow Hydrate Anemia porter Adjust BP meds fu Lytes Gastric support pulm support- not tolerating bipap consider tube feeding ( PEG) as po is POOR Subjective ROS Limited/Unobtainable: Yes Objective Objective Last 24 Hour Vital Signs Date Time Temp Pulse Resp B/P (MAP) Pulse Ox O2 Delivery O2 Flow Rate FiO2 06/06/18 12:00 98.7 85 12 106/44 (64) 97 06/06/18 12:00 35 06/06/18 12:00 Mechanical Ventilator 06/06/18 11:29 86 17 35 06/06/18 11:29 99 06/06/18 11:00 88 12 115/50 (71) 98 06/06/18 10:00 86 12 100/45 (63) 98 06/06/18 09:23 86 12 35 06/06/18 09:00 86 12 106/43 (64) 98 06/06/18 08:42 90 111/50 06/06/18 08:00 98.2 98 12 111/48 (69) 98 06/06/18 08:00 35 06/06/18 08:00 92 06/06/18 08:00 Mechanical Ventilator 06/06/18 07:34 91 13 99 Mechanical Ventilator 35 06/06/18 07:24 81 12 98 Mechanical Ventilator 35 06/06/18 07:24 81 12 35 06/06/18 07:00 82 12 100/40 (60) 98 06/06/18 06:00 77 12 118/47 (70) 97 06/06/18 05:27 83 12 35 06/06/18 05:00 86 12 109/45 (66) 97 06/06/18 04:00 98.5 101 13 114/45 (68) 98 06/06/18 04:00 35 06/06/18 04:00 Mechanical Ventilator 06/06/18 03:22 102 06/06/18 03:19 94 13 35 06/06/18 03:00 93 12 109/45 (66) 98 06/06/18 02:00 84 12 112/44 (66) 100 06/06/18 01:55 80 12 100 Mechanical Ventilator 35 06/06/18 01:32 100 12 35 06/06/18 01:31 100 12 98 Mechanical Ventilator 35 06/06/18 01:00 85 12 100/47 (64) 98 06/06/18 00:00 35 06/06/18 00:00 98.3 89 12 100/42 (61) 98 06/06/18 00:00 Mechanical Ventilator 06/05/18 23:42 91 06/05/18 23:19 93 12 35 06/05/18 23:00 92 12 112/46 (68) 98 06/05/18 22:00 94 12 107/46 (66) 98 06/05/18 21:10 92 12 35 06/05/18 21:00 92 12 107/50 (69) 98 06/05/18 20:00 98.5 100 12 103/47 (65) 98 06/05/18 20:00 Mechanical Ventilator 06/05/18 20:00 35 06/05/18 19:07 100 12 100 Mechanical Ventilator 35 06/05/18 19:00 102 14 106/47 (66) 99 06/05/18 18:59 100 12 35 06/05/18 18:59 103 12 100 Mechanical Ventilator 35 06/05/18 18:57 99 06/05/18 18:07 105 127/53 06/05/18 18:00 105 16 134/71 (92) 99 06/05/18 17:17 95 12 35 06/05/18 17:00 102 15 127/53 (77) 98 06/05/18 16:00 103 06/05/18 16:00 Mechanical Ventilator Mechanical Ventilator 06/05/18 16:00 98.9 101 16 109/49 (69) 98 06/05/18 16:00 35 06/05/18 15:28 92 16 35 06/05/18 15:00 105 12 111/54 (73) 100 06/05/18 14:00 106 12 115/48 (70) 100 06/05/18 13:47 106 16 100 Mechanical Ventilator 35 06/05/18 13:38 111 21 35 06/05/18 13:37 111 21 98 Mechanical Ventilator 35 Intake and Output 06/05/18 06/06/18 18:59 06:59 Intake Total 910 ml 1035 ml Output Total 620 ml 470 ml Balance 290 ml 565 ml Free Water 120 ml IV Total 110 ml 275 ml Tube Feeding 540 ml 540 ml Other 260 ml 100 ml Output Urine Total 620 ml 470 ml Laboratory Tests 06/06/18 04:00: White Blood Count 11.3H, Red Blood Count 3.78L, Hemoglobin 8.2L, Hematocrit 26.2L, Mean Corpuscular Volume 69L, Mean Corpuscular Hemoglobin 21.7L, Mean Corpuscular Hemoglobin Concent 31.2L, Red Cell Distribution Width 15.0H, Platelet Count 208, Mean Platelet Volume 7.4, Neutrophils (%) (Auto) 72.1, Lymphocytes (%) (Auto) 19.1L, Monocytes (%) (Auto) 5.6, Eosinophils (%) (Auto) 2.5, Basophils (%) (Auto) 0.7, Sodium Level 143, Potassium Level 4.4, Chloride Level 104, Carbon Dioxide Level 36H, Anion Gap 3L, Blood Urea Nitrogen 38H, Creatinine 1.5H, Estimat Glomerular Filtration Rate , Glucose Level 126H, Uric Acid 4.6, Calcium Level 8.1L, Phosphorus Level 2.2L, Magnesium Level 2.5H, Total Bilirubin 0.2, Aspartate Amino Transf (AST/SGOT) 14L, Alanine Aminotransferase (ALT/SGPT) 13, Alkaline Phosphatase 64, Pro-B-Type Natriuretic Peptide 245H, Total Protein 5.7L, Albumin 2.0L, Globulin 3.7, Albumin/Globulin Ratio 0.5L, Thyroid Stimulating Hormone (TSH) 0.722 06/06/18 09:45: Arterial Blood pH 7.433, Arterial Blood Partial Pressure CO2 52.2H, Arterial Blood Partial Pressure O2 53.8L, Arterial Blood HCO3 34.1H, Arterial Blood Oxygen Saturation 88.0*L, Arterial Blood Base Excess 8.7H, David Test Positive Height (Feet): 5 Height (Inches): 4.00 Weight (Pounds): 118 EENT: other - vented Cardiovascular: normal rate Respiratory/Chest: decreased breath sounds Abdomen: soft Kendrick Jimenez MD Jun 06, 2018 13:21
--- NOTE | 2018-06-06 14:40 | NUR ---
NURSE NOTES: Pt repositioned for comfort. NAD noted. Pt seen by Dr. De Souza at bedside. RT rounding done. O2 sat 99% on current vent settings. Noted with good waveform.
--- NOTE | 2018-06-06 16:00 | NUR ---
NURSE NOTES: Pt resting in semi fowlers position. Appears calm. Tolerating vent settings. NAD noted.
--- NOTE | 2018-06-06 16:16 | Consultation ---
History of Present Illness General Date patient seen: Jun 06, 2018 Time patient seen: 13:00 Chief Complaint: Dyspnea/Respdistress Reason for Consultation: PNA Present Illness HPI Second Opinion Pulmonary Consult: 87 y/o female well-known to me from prior hospitalizations at [facility] with hx of severe obstructive asthma, CHF, chronic hypercapnic respiratory failure admitted with respiratory distress and altered mental status. Apparently had R lung opacification and had been on BiPAP but was deemed to have failed bipap and intubated. She is in the ICU on the ventilator. She has been treated with antibiotics for possible pneumonia. Several days of attempted weaning have failed. She is currently sedated but has not been on any ativan for many hours , breathing at the set rate of the ventilator. She has been placed on bid seroquel while here. Some secretions noted earlier but overall improved. Allergies: Coded Allergies: Mushroom (Verified Allergy, Severe, 05/28/18) MORPHINE (Unverified Allergy, Intermediate, Itching, 01/04/15) PENICILLINS (Unverified Allergy, Intermediate, Hives, 01/04/15) CELECOXIB (Verified Allergy, Mild, 01/15/09) Medication History Scheduled Amiodarone Hcl* (Cordarone*), 200 MG ORAL DAILY Amlodipine Besylate (Norvasc), 5 MG ORAL DAILY, (Reported) Denosumab (Prolia), 60 MG SUBQ EVERY 6 MONTHS, (Reported) Donepezil Hcl* (Donepezil Hcl*), 5 MG ORAL HS, (Reported) Escitalopram Oxalate* (Lexapro*), 10 MG ORAL DAILY, (Reported) Fluticasone/Salmeterol (Advair 100-50 Diskus), 1 PUFF INH EVERY 12 HOURS, ( Reported) Furosemide* (Lasix*), 40 MG ORAL BID, (Reported) Hydrochlorothiazide* (Hydrochlorothiazide*), 25 MG ORAL DAILY, (Reported) Methylprednisolone* (Medrol*), 4 MG ORAL DAILY Mirtazapine* (Mirtazapine*), 15 MG ORAL BEDTIME, (Reported) Montelukast Sodium* (Singulair*), 10 MG ORAL DAILY, (Reported) Montelukast Sodium* (Singulair*), 10 MG ORAL BEDTIME, (Reported) Pantoprazole* (Pantoprazole*), 40 MG ORAL DAILY, (Reported) Potassium Gluconate (Potassium), 10 MEQ PO BID, (Reported) Tiotropium [place]* (Spiriva*), 1 PUFF INH DAILY, (Reported) Valsartan (Diovan), 160 MG ORAL BID, (Reported) Verapamil Hcl* (Calan*), 240 MG ORAL DAILY, (Reported) [vitamin B12], 1 ML IM ONCE A WEEK, (Reported) Scheduled PRN Albuterol Sulfate* (Albuterol Sulfate Hhn*), 3 ML INH Q6H PRN for Shortness of Breath, (Reported) Tramadol Hcl* (Ultram*), 50 MG ORAL Q6H PRN for For Pain, (Reported) Patient History Limited by: medical condition History Provided By: Medical Record Healthcare decision maker Resuscitation status Advanced Directive on File Yes Past Medical/Surgical History Past Medical/Surgical History: (1) COPD (chronic obstructive pulmonary disease) (2) CAD (coronary artery disease) Review of Systems ROS Narrative Unable to obtain due to patient factors Physical Exam General Appearance: WD/WN, no apparent distress, lethargic HEENT: normocephalic, atraumatic Respiratory/Chest: crackles/rales Cardiovascular/Chest: normal rate Abdomen: non tender, soft Extremities: no edema Last 24 Hour Vital Signs Date Time Temp Pulse Resp B/P (MAP) Pulse Ox O2 Delivery O2 Flow Rate FiO2 06/06/18 15:05 95 17 35 06/06/18 14:11 102 13 94 Mechanical Ventilator 35 06/06/18 14:03 110 15 95 Mechanical Ventilator 35 06/06/18 14:00 98 12 105/55 (72) 100 06/06/18 13:12 85 12 35 06/06/18 13:00 100 12 98/55 (69) 100 06/06/18 12:00 98.7 85 12 106/44 (64) 97 06/06/18 12:00 35 06/06/18 12:00 Mechanical Ventilator 06/06/18 11:29 86 17 35 06/06/18 11:29 99 06/06/18 11:00 88 12 115/50 (71) 98 06/06/18 10:00 86 12 100/45 (63) 98 06/06/18 09:23 86 12 35 06/06/18 09:00 86 12 106/43 (64) 98 06/06/18 08:42 90 111/50 06/06/18 08:00 98.2 98 12 111/48 (69) 98 06/06/18 08:00 35 06/06/18 08:00 92 06/06/18 08:00 Mechanical Ventilator 06/06/18 07:34 91 13 99 Mechanical Ventilator 35 06/06/18 07:24 81 12 98 Mechanical Ventilator 35 06/06/18 07:24 81 12 35 06/06/18 07:00 82 12 100/40 (60) 98 06/06/18 06:00 77 12 118/47 (70) 97 06/06/18 05:27 83 12 35 06/06/18 05:00 86 12 109/45 (66) 97 06/06/18 04:00 98.5 101 13 114/45 (68) 98 06/06/18 04:00 35 06/06/18 04:00 Mechanical Ventilator 06/06/18 03:22 102 06/06/18 03:19 94 13 35 06/06/18 03:00 93 12 109/45 (66) 98 06/06/18 02:00 84 12 112/44 (66) 100 06/06/18 01:55 80 12 100 Mechanical Ventilator 35 06/06/18 01:32 100 12 35 06/06/18 01:31 100 12 98 Mechanical Ventilator 35 06/06/18 01:00 85 12 100/47 (64) 98 06/06/18 00:00 35 06/06/18 00:00 98.3 89 12 100/42 (61) 98 06/06/18 00:00 Mechanical Ventilator 06/05/18 23:42 91 06/05/18 23:19 93 12 35 06/05/18 23:00 92 12 112/46 (68) 98 06/05/18 22:00 94 12 107/46 (66) 98 06/05/18 21:10 92 12 35 06/05/18 21:00 92 12 107/50 (69) 98 06/05/18 20:00 98.5 100 12 103/47 (65) 98 06/05/18 20:00 Mechanical Ventilator 06/05/18 20:00 35 06/05/18 19:07 100 12 100 Mechanical Ventilator 35 06/05/18 19:00 102 14 106/47 (66) 99 06/05/18 18:59 100 12 35 06/05/18 18:59 103 12 100 Mechanical Ventilator 35 06/05/18 18:57 99 06/05/18 18:07 105 127/53 06/05/18 18:00 105 16 134/71 (92) 99 06/05/18 17:17 95 12 35 06/05/18 17:00 102 15 127/53 (77) 98 Intake and Output 06/05/18 06/06/18 18:59 06:59 Intake Total 910 ml 1035 ml Output Total 620 ml 470 ml Balance 290 ml 565 ml Free Water 120 ml IV Total 110 ml 275 ml Tube Feeding 540 ml 540 ml Other 260 ml 100 ml Output Urine Total 620 ml 470 ml Laboratory Tests Test 06/06/18 04:00 06/06/18 09:45 White Blood Count 11.3 K/UL (4.8-10.8) H Red Blood Count 3.78 M/UL (4.20-5.40) L Hemoglobin 8.2 G/DL (12.0-16.0) L Hematocrit 26.2 % (37.0-47.0) L Mean Corpuscular Volume 69 FL (80-99) L Mean Corpuscular Hemoglobin 21.7 PG (27.0-31.0) L Mean Corpuscular Hemoglobin Concent 31.2 G/DL (32.0-36.0) L Red Cell Distribution Width 15.0 % (11.6-14.8) H Platelet Count 208 K/UL (150-450) Mean Platelet Volume 7.4 FL (6.5-10.1) Neutrophils (%) (Auto) 72.1 % (45.0-75.0) Lymphocytes (%) (Auto) 19.1 % (20.0-45.0) L Monocytes (%) (Auto) 5.6 % (1.0-10.0) Eosinophils (%) (Auto) 2.5 % (0.0-3.0) Basophils (%) (Auto) 0.7 % (0.0-2.0) Sodium Level 143 MMOL/L (136-145) Potassium Level 4.4 MMOL/L (3.5-5.1) Chloride Level 104 MMOL/L (98-107) Carbon Dioxide Level 36 MMOL/L (21-32) H Anion Gap 3 mmol/L (5-15) L Blood Urea Nitrogen 38 mg/dL (7-18) H Creatinine 1.5 MG/DL (0.55-1.30) H Estimat Glomerular Filtration Rate mL/min (>60) Glucose Level 126 MG/DL (74-106) H Uric Acid 4.6 MG/DL (2.6-7.2) Calcium Level 8.1 MG/DL (8.5-10.1) L Phosphorus Level 2.2 MG/DL (2.5-4.9) L Magnesium Level 2.5 MG/DL (1.8-2.4) H Total Bilirubin 0.2 MG/DL (0.2-1.0) Aspartate Amino Transf (AST/SGOT) 14 U/L (15-37) L Alanine Aminotransferase (ALT/SGPT) 13 U/L (12-78) Alkaline Phosphatase 64 U/L (46-116) Pro-B-Type Natriuretic Peptide 245 pg/mL (0-125) H Total Protein 5.7 G/DL (6.4-8.2) L Albumin 2.0 G/DL (3.4-5.0) L Globulin 3.7 g/dL Albumin/Globulin Ratio 0.5 (1.0-2.7) L Thyroid Stimulating Hormone (TSH) 0.722 uiU/mL (0.358-3.740) Arterial Blood pH 7.433 (7.350-7.450) Arterial Blood Partial Pressure CO2 52.2 mmHg (35.0-45.0) H Arterial Blood Partial Pressure O2 53.8 mmHg (75.0-100.0) L Arterial Blood HCO3 34.1 mmol/L (22.0-26.0) H Arterial Blood Oxygen Saturation 88.0 % (95-100) *L Arterial Blood Base Excess 8.7 (-2-2) H David Test Positive Height (Feet): 5 Height (Inches): 4.00 Weight (Pounds): 118 Medications Current Medications Medications (Trade) Dose Ordered Sig/Ann Route PRN Reason Start Time Stop Time Status Last Admin Dose Admin Acetaminophen (Tylenol) 650 mg Q4H PRN ORAL fever (temp>100.5F) 06/02/18 13:30 06/27/18 13:29 06/04/18 16:12 Albuterol/ Ipratropium (Albuterol/ Ipratropium) 3 ml Q6HRT HHN 06/05/18 13:00 06/07/18 06:59 06/06/18 14:04 Amiodarone HCl (Cordarone) 100 mg DAILY ORAL 06/03/18 09:00 06/30/18 08:59 06/06/18 08:36 Amlodipine Besylate (Norvasc) 5 mg BID ORAL 06/02/18 18:00 06/27/18 08:59 06/06/18 08:42 Cefepime HCl 1 gm/ Dextrose 55 ml @ 110 mls/hr Q24H IV 06/03/18 09:00 06/09/18 08:59 06/06/18 08:35 Chlorhexidine Gluconate (Myra-Hex 2%) 1 applic DAILY@2000 TOPIC 06/02/18 20:00 07/02/18 19:59 06/05/18 19:55 Heparin Sodium (Porcine) (Heparin 5000 units/ml) 5,000 units EVERY 12 HOURS SUBQ 06/02/18 21:00 06/27/18 08:59 06/06/18 08:41 Lorazepam (Ativan 2mg/ml 1ml) 2 mg Q4H PRN IV For Anxiety 06/02/18 14:30 06/09/18 14:14 06/06/18 03:35 Nitroglycerin (Ntg) 0.4 mg Q5M PRN SL Prn Chest Pain 06/02/18 13:30 06/27/18 13:29 Ondansetron HCl (Zofran) 4 mg Q6H PRN IVP Nausea & Vomiting 06/02/18 13:30 06/27/18 07:29 Pantoprazole (Protonix) 40 mg DAILY IV 06/03/18 09:00 07/03/18 08:59 06/06/18 08:36 Polyethylene Glycol (Miralax) 17 gm BEDTIME ORAL 06/06/18 21:00 07/06/18 20:59 Polyethylene Glycol (Miralax) 17 gm DAILYPRN PRN ORAL Constipation 06/02/18 13:30 07/02/18 13:29 06/05/18 20:57 Quetiapine Fumarate (SEROquel) 12.5 mg BID ORAL 06/02/18 18:00 06/29/18 17:59 06/06/18 08:42 Quetiapine Fumarate (SEROquel) 25 mg Q6H PRN ORAL For Anxiety 06/02/18 13:30 06/29/18 13:29 Temazepam (Restoril) 15 mg HSPRN PRN ORAL Insomnia 06/02/18 20:00 06/09/18 19:59 Vancomycin HCl (Vanco rx to dose) 1 ea DAILY PRN MISC Per rx protocol 06/02/18 13:30 07/02/18 13:29 Vancomycin HCl 1 gm/Dextrose 275 ml @ 183.708 mls/hr Q36H IVPB 06/04/18 13:00 06/09/18 12:59 06/06/18 01:00 Assessment/Plan Assessment/Plan Problem List: 1. Acute on chronic hypercapnic respiratory failure 2. R lung collapse, possibly mucous plugging - improved 3. Pulmonary edema 4. chronic obstructive asthma 5. Pneumonia 6. Hx afib Plan: -mechanical ventilatory support, wean as tolerated -patient is oversedated. Would stop schedule quetiapine -monitor volumes, consider diuresis -good pulmonary hygiene -abx per ID My thoughts have been relayed to Dr. Mariee who will continue to manage the patient. Varinder De Souza MD Jun 06, 2018 16:16
--- NOTE | 2018-06-06 16:17 | GI Progress Note ---
Assessment/Plan Problems: (1) Severe malnutrition ICD Codes: E43 - Unspecified severe protein-calorie malnutrition SNOMED: 76388775 (2) Dementia ICD Codes: F03.90 - Unspecified dementia without behavioral disturbance SNOMED: 07311310 (3) Confused ICD Codes: R41.0 - Disorientation, unspecified SNOMED: 829481787 (4) Encounter for PEG (percutaneous endoscopic gastrostomy) ICD Codes: Z43.1 - Encounter for attention to gastrostomy SNOMED: 726233995, 706535599 (5) Failure to thrive SNOMED: 03011410 (6) Acute encephalopathy ICD Codes: G93.40 - Encephalopathy, unspecified SNOMED: 3424075 Status: unchanged Status Narrative Discussed with Dr. Acevedo Assessment/Plan Assessment - Resp failure - NGT dependent - COPD - CHF - PNA - Anemia - Poor prognosis -No plans for tracheostomy as of yet Recommendations - NGT feeds, PEG if family agrees - Vent care - Elevated HOB - Monitor residuals - Abx - Pulmonary toilet -Follow labs The patient was seen and examined at bedside and all new and available data was reviewed in the patients chart. I agree with the above findings, impression and plan. (Patient seen earlier today. Signature stamp does not reflect patient encounter time.). - Jacobo Acevedo MD Subjective Subjective Limited Objective Last 24 Hour Vital Signs Date Time Temp Pulse Resp B/P (MAP) Pulse Ox O2 Delivery O2 Flow Rate FiO2 06/06/18 15:05 95 17 35 06/06/18 14:11 102 13 94 Mechanical Ventilator 35 06/06/18 14:03 110 15 95 Mechanical Ventilator 35 06/06/18 14:00 98 12 105/55 (72) 100 06/06/18 13:12 85 12 35 06/06/18 13:00 100 12 98/55 (69) 100 06/06/18 12:00 98.7 85 12 106/44 (64) 97 06/06/18 12:00 35 06/06/18 12:00 Mechanical Ventilator 06/06/18 11:29 86 17 35 06/06/18 11:29 99 06/06/18 11:00 88 12 115/50 (71) 98 06/06/18 10:00 86 12 100/45 (63) 98 06/06/18 09:23 86 12 35 06/06/18 09:00 86 12 106/43 (64) 98 06/06/18 08:42 90 111/50 06/06/18 08:00 98.2 98 12 111/48 (69) 98 06/06/18 08:00 35 06/06/18 08:00 92 06/06/18 08:00 Mechanical Ventilator 06/06/18 07:34 91 13 99 Mechanical Ventilator 35 06/06/18 07:24 81 12 98 Mechanical Ventilator 35 06/06/18 07:24 81 12 35 06/06/18 07:00 82 12 100/40 (60) 98 06/06/18 06:00 77 12 118/47 (70) 97 06/06/18 05:27 83 12 35 06/06/18 05:00 86 12 109/45 (66) 97 06/06/18 04:00 98.5 101 13 114/45 (68) 98 06/06/18 04:00 35 06/06/18 04:00 Mechanical Ventilator 06/06/18 03:22 102 06/06/18 03:19 94 13 35 06/06/18 03:00 93 12 109/45 (66) 98 06/06/18 02:00 84 12 112/44 (66) 100 06/06/18 01:55 80 12 100 Mechanical Ventilator 35 06/06/18 01:32 100 12 35 06/06/18 01:31 100 12 98 Mechanical Ventilator 35 06/06/18 01:00 85 12 100/47 (64) 98 06/06/18 00:00 35 06/06/18 00:00 98.3 89 12 100/42 (61) 98 06/06/18 00:00 Mechanical Ventilator 06/05/18 23:42 91 06/05/18 23:19 93 12 35 06/05/18 23:00 92 12 112/46 (68) 98 06/05/18 22:00 94 12 107/46 (66) 98 06/05/18 21:10 92 12 35 06/05/18 21:00 92 12 107/50 (69) 98 06/05/18 20:00 98.5 100 12 103/47 (65) 98 06/05/18 20:00 Mechanical Ventilator 06/05/18 20:00 35 06/05/18 19:07 100 12 100 Mechanical Ventilator 35 06/05/18 19:00 102 14 106/47 (66) 99 06/05/18 18:59 100 12 35 06/05/18 18:59 103 12 100 Mechanical Ventilator 35 06/05/18 18:57 99 06/05/18 18:07 105 127/53 06/05/18 18:00 105 16 134/71 (92) 99 06/05/18 17:17 95 12 35 06/05/18 17:00 102 15 127/53 (77) 98 Intake and Output 06/05/18 06/06/18 18:59 06:59 Intake Total 910 ml 1035 ml Output Total 620 ml 470 ml Balance 290 ml 565 ml Free Water 120 ml IV Total 110 ml 275 ml Tube Feeding 540 ml 540 ml Other 260 ml 100 ml Output Urine Total 620 ml 470 ml Laboratory Tests Test 06/06/18 04:00 06/06/18 09:45 White Blood Count 11.3 K/UL (4.8-10.8) H Red Blood Count 3.78 M/UL (4.20-5.40) L Hemoglobin 8.2 G/DL (12.0-16.0) L Hematocrit 26.2 % (37.0-47.0) L Mean Corpuscular Volume 69 FL (80-99) L Mean Corpuscular Hemoglobin 21.7 PG (27.0-31.0) L Mean Corpuscular Hemoglobin Concent 31.2 G/DL (32.0-36.0) L Red Cell Distribution Width 15.0 % (11.6-14.8) H Platelet Count 208 K/UL (150-450) Mean Platelet Volume 7.4 FL (6.5-10.1) Neutrophils (%) (Auto) 72.1 % (45.0-75.0) Lymphocytes (%) (Auto) 19.1 % (20.0-45.0) L Monocytes (%) (Auto) 5.6 % (1.0-10.0) Eosinophils (%) (Auto) 2.5 % (0.0-3.0) Basophils (%) (Auto) 0.7 % (0.0-2.0) Sodium Level 143 MMOL/L (136-145) Potassium Level 4.4 MMOL/L (3.5-5.1) Chloride Level 104 MMOL/L (98-107) Carbon Dioxide Level 36 MMOL/L (21-32) H Anion Gap 3 mmol/L (5-15) L Blood Urea Nitrogen 38 mg/dL (7-18) H Creatinine 1.5 MG/DL (0.55-1.30) H Estimat Glomerular Filtration Rate mL/min (>60) Glucose Level 126 MG/DL (74-106) H Uric Acid 4.6 MG/DL (2.6-7.2) Calcium Level 8.1 MG/DL (8.5-10.1) L Phosphorus Level 2.2 MG/DL (2.5-4.9) L Magnesium Level 2.5 MG/DL (1.8-2.4) H Total Bilirubin 0.2 MG/DL (0.2-1.0) Aspartate Amino Transf (AST/SGOT) 14 U/L (15-37) L Alanine Aminotransferase (ALT/SGPT) 13 U/L (12-78) Alkaline Phosphatase 64 U/L (46-116) Pro-B-Type Natriuretic Peptide 245 pg/mL (0-125) H Total Protein 5.7 G/DL (6.4-8.2) L Albumin 2.0 G/DL (3.4-5.0) L Globulin 3.7 g/dL Albumin/Globulin Ratio 0.5 (1.0-2.7) L Thyroid Stimulating Hormone (TSH) 0.722 uiU/mL (0.358-3.740) Arterial Blood pH 7.433 (7.350-7.450) Arterial Blood Partial Pressure CO2 52.2 mmHg (35.0-45.0) H Arterial Blood Partial Pressure O2 53.8 mmHg (75.0-100.0) L Arterial Blood HCO3 34.1 mmol/L (22.0-26.0) H Arterial Blood Oxygen Saturation 88.0 % (95-100) *L Arterial Blood Base Excess 8.7 (-2-2) H David Test Positive Height (Feet): 5 Height (Inches): 4.00 Weight (Pounds): 118 General Appearance: no apparent distress, thin Cardiovascular: normal rate Respiratory/Chest: normal breath sounds, no respiratory distress, other - Intubated Abdominal Exam: normal bowel sounds, non tender, soft, other - NG tube Extremities: non-tender Rodriguez,Joi-Shilo [employer] Jun 06, 2018 16:17
--- NOTE | 2018-06-06 17:17 | NUR ---
RESPIRATORY NOTE: PTY STABLE ON CURRENT CMV SETTINGS AND ALL VS ARE WNL. VENT CIRCUIT AND SX TUBBING SECURE AND OUT OF THE WAY. PT SX PRN WITH NO ADVERSE REACTION. NO S/S OF RESPIRATORY DISTRESS NOTED AT THIS TIME.
[2018-06-06] MEDS ORDERED: Miralax 17gm pkt ORAL SCH (18:00)
--- NOTE | 2018-06-06 18:05 | Cardiology Progress Note ---
Assessment/Plan Assessment/Plan COPD, congestive heart failure, atrial fibrillation sinus tachy agitation right lung collapse? intubeted chest pt dvt ppx all trop neg cr is normal is npo in on low dose ivf is off diuretic as was dry at admission is more awake on the vent not able to wean yet Subjective Subjective on a vent in [facility] icu no family at bedside Objective Last 24 Hour Vital Signs Date Time Temp Pulse Resp B/P (MAP) Pulse Ox O2 Delivery O2 Flow Rate FiO2 06/06/18 17:17 98 14 35 06/06/18 16:00 Mechanical Ventilator 06/06/18 16:00 98 06/06/18 16:00 35 06/06/18 15:05 95 17 35 06/06/18 14:11 102 13 94 Mechanical Ventilator 35 06/06/18 14:03 110 15 95 Mechanical Ventilator 35 06/06/18 14:00 98 12 105/55 (72) 100 06/06/18 13:12 85 12 35 06/06/18 13:00 100 12 98/55 (69) 100 06/06/18 12:00 87 06/06/18 12:00 98.7 85 12 106/44 (64) 97 06/06/18 12:00 35 06/06/18 12:00 Mechanical Ventilator 06/06/18 11:29 86 17 35 06/06/18 11:29 99 06/06/18 11:00 88 12 115/50 (71) 98 06/06/18 10:00 86 12 100/45 (63) 98 06/06/18 09:23 86 12 35 06/06/18 09:00 86 12 106/43 (64) 98 06/06/18 08:42 90 111/50 06/06/18 08:00 98.2 98 12 111/48 (69) 98 06/06/18 08:00 35 06/06/18 08:00 92 06/06/18 08:00 Mechanical Ventilator 06/06/18 07:34 91 13 99 Mechanical Ventilator 35 06/06/18 07:24 81 12 98 Mechanical Ventilator 35 06/06/18 07:24 81 12 35 06/06/18 07:00 82 12 100/40 (60) 98 06/06/18 06:00 77 12 118/47 (70) 97 06/06/18 05:27 83 12 35 06/06/18 05:00 86 12 109/45 (66) 97 06/06/18 04:00 98.5 101 13 114/45 (68) 98 06/06/18 04:00 35 06/06/18 04:00 Mechanical Ventilator 06/06/18 03:22 102 06/06/18 03:19 94 13 35 06/06/18 03:00 93 12 109/45 (66) 98 06/06/18 02:00 84 12 112/44 (66) 100 06/06/18 01:55 80 12 100 Mechanical Ventilator 35 06/06/18 01:32 100 12 35 06/06/18 01:31 100 12 98 Mechanical Ventilator 35 06/06/18 01:00 85 12 100/47 (64) 98 06/06/18 00:00 35 06/06/18 00:00 98.3 89 12 100/42 (61) 98 06/06/18 00:00 Mechanical Ventilator 06/05/18 23:42 91 06/05/18 23:19 93 12 35 06/05/18 23:00 92 12 112/46 (68) 98 06/05/18 22:00 94 12 107/46 (66) 98 06/05/18 21:10 92 12 35 06/05/18 21:00 92 12 107/50 (69) 98 06/05/18 20:00 98.5 100 12 103/47 (65) 98 06/05/18 20:00 Mechanical Ventilator 06/05/18 20:00 35 06/05/18 19:07 100 12 100 Mechanical Ventilator 35 06/05/18 19:00 102 14 106/47 (66) 99 06/05/18 18:59 100 12 35 06/05/18 18:59 103 12 100 Mechanical Ventilator 35 06/05/18 18:57 99 06/05/18 18:07 105 127/53 General Appearance: no apparent distress, alert Neck: supple Cardiovascular: normal rate, regular rhythm Respiratory/Chest: lungs clear Abdomen: normal bowel sounds, non tender, soft Extremities: no swelling Intake and Output 06/05/18 06/06/18 18:59 06:59 Intake Total 910 ml 1035 ml Output Total 620 ml 470 ml Balance 290 ml 565 ml Free Water 120 ml IV Total 110 ml 275 ml Tube Feeding 540 ml 540 ml Other 260 ml 100 ml Output Urine Total 620 ml 470 ml Laboratory Tests Test 06/06/18 04:00 06/06/18 09:45 White Blood Count 11.3 K/UL (4.8-10.8) H Red Blood Count 3.78 M/UL (4.20-5.40) L Hemoglobin 8.2 G/DL (12.0-16.0) L Hematocrit 26.2 % (37.0-47.0) L Mean Corpuscular Volume 69 FL (80-99) L Mean Corpuscular Hemoglobin 21.7 PG (27.0-31.0) L Mean Corpuscular Hemoglobin Concent 31.2 G/DL (32.0-36.0) L Red Cell Distribution Width 15.0 % (11.6-14.8) H Platelet Count 208 K/UL (150-450) Mean Platelet Volume 7.4 FL (6.5-10.1) Neutrophils (%) (Auto) 72.1 % (45.0-75.0) Lymphocytes (%) (Auto) 19.1 % (20.0-45.0) L Monocytes (%) (Auto) 5.6 % (1.0-10.0) Eosinophils (%) (Auto) 2.5 % (0.0-3.0) Basophils (%) (Auto) 0.7 % (0.0-2.0) Sodium Level 143 MMOL/L (136-145) Potassium Level 4.4 MMOL/L (3.5-5.1) Chloride Level 104 MMOL/L (98-107) Carbon Dioxide Level 36 MMOL/L (21-32) H Anion Gap 3 mmol/L (5-15) L Blood Urea Nitrogen 38 mg/dL (7-18) H Creatinine 1.5 MG/DL (0.55-1.30) H Estimat Glomerular Filtration Rate mL/min (>60) Glucose Level 126 MG/DL (74-106) H Uric Acid 4.6 MG/DL (2.6-7.2) Calcium Level 8.1 MG/DL (8.5-10.1) L Phosphorus Level 2.2 MG/DL (2.5-4.9) L Magnesium Level 2.5 MG/DL (1.8-2.4) H Total Bilirubin 0.2 MG/DL (0.2-1.0) Aspartate Amino Transf (AST/SGOT) 14 U/L (15-37) L Alanine Aminotransferase (ALT/SGPT) 13 U/L (12-78) Alkaline Phosphatase 64 U/L (46-116) Pro-B-Type Natriuretic Peptide 245 pg/mL (0-125) H Total Protein 5.7 G/DL (6.4-8.2) L Albumin 2.0 G/DL (3.4-5.0) L Globulin 3.7 g/dL Albumin/Globulin Ratio 0.5 (1.0-2.7) L Thyroid Stimulating Hormone (TSH) 0.722 uiU/mL (0.358-3.740) Arterial Blood pH 7.433 (7.350-7.450) Arterial Blood Partial Pressure CO2 52.2 mmHg (35.0-45.0) H Arterial Blood Partial Pressure O2 53.8 mmHg (75.0-100.0) L Arterial Blood HCO3 34.1 mmol/L (22.0-26.0) H Arterial Blood Oxygen Saturation 88.0 % (95-100) *L Arterial Blood Base Excess 8.7 (-2-2) H David Test Positive Geoffrey Sandhu MD Jun 06, 2018 18:05
--- NOTE | 2018-06-06 18:15 | NUR ---
NURSE NOTES: Pt seen by Dr. Sandhu at bedside.
--- NOTE | 2018-06-06 19:25 | NUR ---
HAND-OFF: Report given to Gracie JI. All questions answered. NAD Noted.
--- NOTE | 2018-06-06 20:00 | NUR ---
NURSE NOTES: pt orally intubated -vent o2 sat 96-1oo no acute resp distress restless and agitated medicated with ativan as order reposition and suction dr vicente in and seen pt
--- NOTE | 2018-06-06 20:15 | NUR ---
RESPIRATORY NOTE: Received pt on AC 12, 500VT, 35%, PEEP +5. Pt intubated w/ ETT 7.5 @ 21cm lipline, secured by anchorfast. Pt alert/awake, follows commands. Both hands on soft restraints to prevent pt from self-extubation. Family currently at bedside. B/S brad. rhonchi, sxn small amounts of thick/thin pale-yellow secretions w/ occasional red specks. Vent plugged into red outlet, ambubag at bedside. Pt in no apparent distress at this time. Will continue to monitor pt.
--- NOTE | 2018-06-06 20:24 | General Progress Note ---
Assessment/Plan Problem List: (1) encephalopathy due to toxin (2) Dementia ICD Codes: F03.90 - Unspecified dementia without behavioral disturbance SNOMED: 05825715 Status: stable Assessment/Plan dcseroquel 12.5mg po bid seroquel 25mg q 6hr prn cont restraints. haldol im Subjective Allergies: Coded Allergies: Mushroom (Verified Allergy, Severe, 05/28/18) MORPHINE (Unverified Allergy, Intermediate, Itching, 01/04/15) PENICILLINS (Unverified Allergy, Intermediate, Hives, 01/04/15) CELECOXIB (Verified Allergy, Mild, 01/15/09) Subjective agitated at time waxing and waning of consciousness confused Objective Last 24 Hour Vital Signs Date Time Temp Pulse Resp B/P (MAP) Pulse Ox O2 Delivery O2 Flow Rate FiO2 06/06/18 20:11 92 13 96 Mechanical Ventilator 35 06/06/18 20:11 92 13 35 06/06/18 20:00 88 12 107/45 (65) 100 06/06/18 20:00 Mechanical Ventilator 06/06/18 20:00 35 06/06/18 20:00 98 06/06/18 19:00 93 12 112/48 (69) 100 06/06/18 18:37 95 110/60 06/06/18 18:00 88 12 109/45 (66) 100 06/06/18 17:17 98 14 35 06/06/18 17:00 95 12 134/53 (80) 100 06/06/18 16:00 Mechanical Ventilator 06/06/18 16:00 98.9 98 12 130/60 (83) 100 06/06/18 16:00 98 06/06/18 16:00 35 06/06/18 15:05 95 17 35 06/06/18 15:00 99 12 133/55 (81) 100 06/06/18 14:11 102 13 94 Mechanical Ventilator 35 06/06/18 14:03 110 15 95 Mechanical Ventilator 35 06/06/18 14:00 98 12 105/55 (72) 100 06/06/18 13:12 85 12 35 06/06/18 13:00 100 12 98/55 (69) 100 06/06/18 12:00 87 06/06/18 12:00 98.7 85 12 106/44 (64) 97 06/06/18 12:00 35 06/06/18 12:00 Mechanical Ventilator 06/06/18 11:29 86 17 35 06/06/18 11:29 99 06/06/18 11:00 88 12 115/50 (71) 98 06/06/18 10:00 86 12 100/45 (63) 98 06/06/18 09:23 86 12 35 06/06/18 09:00 86 12 106/43 (64) 98 06/06/18 08:42 90 111/50 06/06/18 08:00 98.2 98 12 111/48 (69) 98 06/06/18 08:00 35 06/06/18 08:00 92 06/06/18 08:00 Mechanical Ventilator 06/06/18 07:34 91 13 99 Mechanical Ventilator 35 06/06/18 07:24 81 12 98 Mechanical Ventilator 35 06/06/18 07:24 81 12 35 06/06/18 07:00 82 12 100/40 (60) 98 06/06/18 06:00 77 12 118/47 (70) 97 06/06/18 05:27 83 12 35 06/06/18 05:00 86 12 109/45 (66) 97 06/06/18 04:00 98.5 101 13 114/45 (68) 98 06/06/18 04:00 35 06/06/18 04:00 Mechanical Ventilator 06/06/18 03:22 102 06/06/18 03:19 94 13 35 06/06/18 03:00 93 12 109/45 (66) 98 06/06/18 02:00 84 12 112/44 (66) 100 06/06/18 01:55 80 12 100 Mechanical Ventilator 35 06/06/18 01:32 100 12 35 06/06/18 01:31 100 12 98 Mechanical Ventilator 35 06/06/18 01:00 85 12 100/47 (64) 98 06/06/18 00:00 35 06/06/18 00:00 98.3 89 12 100/42 (61) 98 06/06/18 00:00 Mechanical Ventilator 06/05/18 23:42 91 06/05/18 23:19 93 12 35 06/05/18 23:00 92 12 112/46 (68) 98 06/05/18 22:00 94 12 107/46 (66) 98 06/05/18 21:10 92 12 35 06/05/18 21:00 92 12 107/50 (69) 98 Intake and Output 06/05/18 06/06/18 19:00 07:00 Intake Total 910 ml 1035 ml Output Total 620 ml 460 ml Balance 290 ml 575 ml Free Water 120 ml IV Total 110 ml 275 ml Tube Feeding 540 ml 540 ml Other 260 ml 100 ml Output Urine Total 620 ml 460 ml Laboratory Tests 06/06/18 04:00: White Blood Count 11.3H, Red Blood Count 3.78L, Hemoglobin 8.2L, Hematocrit 26.2L, Mean Corpuscular Volume 69L, Mean Corpuscular Hemoglobin 21.7L, Mean Corpuscular Hemoglobin Concent 31.2L, Red Cell Distribution Width 15.0H, Platelet Count 208, Mean Platelet Volume 7.4, Neutrophils (%) (Auto) 72.1, Lymphocytes (%) (Auto) 19.1L, Monocytes (%) (Auto) 5.6, Eosinophils (%) (Auto) 2.5, Basophils (%) (Auto) 0.7, Sodium Level 143, Potassium Level 4.4, Chloride Level 104, Carbon Dioxide Level 36H, Anion Gap 3L, Blood Urea Nitrogen 38H, Creatinine 1.5H, Estimat Glomerular Filtration Rate , Glucose Level 126H, Uric Acid 4.6, Calcium Level 8.1L, Phosphorus Level 2.2L, Magnesium Level 2.5H, Total Bilirubin 0.2, Aspartate Amino Transf (AST/SGOT) 14L, Alanine Aminotransferase (ALT/SGPT) 13, Alkaline Phosphatase 64, Pro-B-Type Natriuretic Peptide 245H, Total Protein 5.7L, Albumin 2.0L, Globulin 3.7, Albumin/Globulin Ratio 0.5L, Thyroid Stimulating Hormone (TSH) 0.722 06/06/18 09:45: Arterial Blood pH 7.433, Arterial Blood Partial Pressure CO2 52.2H, Arterial Blood Partial Pressure O2 53.8L, Arterial Blood HCO3 34.1H, Arterial Blood Oxygen Saturation 88.0*L, Arterial Blood Base Excess 8.7H, David Test Positive Height (Feet): 5 Height (Inches): 4.00 Weight (Pounds): 118 Liz Lo MD Jun 06, 2018 20:24
[2018-06-06] MEDS: Dyna-Hex 2% Top Sol 2oz TOPIC SCH (20:38)
--- NOTE | 2018-06-06 20:45 | General Progress Note ---
Assessment/Plan Status: not improved, deteriorating Assessment/Plan This is an 87-year-old female admitted with chronic obstructive pulmonary disease exacerbation, right lower lobe infiltrate/pneumonia with altered mental status and acute kidney injury. The patient will be admitted to [facility] with the following medical problems. 1. Chronic obstructive pulmonary disease exacerbation and pneumonia. The patient has been seen by Pulmonary. Infectious Disease has been consulted, pancultured. IV antibiotics per ID. Continue with BiPAP and suction p.r.n. Transition to Venturi-mask when stable. 2. Acute kidney injury. We will monitor I's and O's, gentle intravenous fluids. Repeat a BMP in a.m. Consider Nephrology consult. 3. History of chronic atrial fibrillation. Continue with amiodarone. The patient is in sinus rhythm at this time. 4. History of hypertension. Continue with amlodipine and hold for systolic blood pressure less than 110. 5. Altered mental status, most likely from above conditions. We will keep n.p.o. except for medications and start IV fluids. 6. DVT prophylaxis with heparin subcutaneous and SCDs. 7. The patient is Full Code per policy. We will discuss with the family. 8. hypokalmia 9. Anemia 10. CHf acute on chronic Plan: - now in ICU on VENT support - continue present care - iV antibioitics and fluids - NGT placed for nutrition - monitor lights patient is full code per family's wish discussed with ICU nurse - wean off vent per ICU team discussed with nurse and family no plan for PEG at this time - consider transfusion of PRBC and diuresis Subjective Date patient seen: Jun 06, 2018 ROS Limited/Unobtainable: Yes Allergies: Coded Allergies: Mushroom (Verified Allergy, Severe, 05/28/18) MORPHINE (Unverified Allergy, Intermediate, Itching, 01/04/15) PENICILLINS (Unverified Allergy, Intermediate, Hives, 01/04/15) CELECOXIB (Verified Allergy, Mild, 01/15/09) Subjective patient with acute respiratory failure continues to remain intubated in ICU, unable to wean off due to patient is tachycardic Objective Last 24 Hour Vital Signs Date Time Temp Pulse Resp B/P (MAP) Pulse Ox O2 Delivery O2 Flow Rate FiO2 06/06/18 20:21 99 15 98 Mechanical Ventilator 35 06/06/18 20:11 92 13 96 Mechanical Ventilator 35 06/06/18 20:11 92 13 35 06/06/18 20:00 88 12 107/45 (65) 100 06/06/18 20:00 Mechanical Ventilator 06/06/18 20:00 35 06/06/18 20:00 98 06/06/18 19:00 93 12 112/48 (69) 100 06/06/18 18:37 95 110/60 06/06/18 18:00 88 12 109/45 (66) 100 06/06/18 17:17 98 14 35 06/06/18 17:00 95 12 134/53 (80) 100 06/06/18 16:00 Mechanical Ventilator 06/06/18 16:00 98.9 98 12 130/60 (83) 100 06/06/18 16:00 98 06/06/18 16:00 35 06/06/18 15:05 95 17 35 06/06/18 15:00 99 12 133/55 (81) 100 06/06/18 14:11 102 13 94 Mechanical Ventilator 35 06/06/18 14:03 110 15 95 Mechanical Ventilator 35 06/06/18 14:00 98 12 105/55 (72) 100 06/06/18 13:12 85 12 35 06/06/18 13:00 100 12 98/55 (69) 100 06/06/18 12:00 87 06/06/18 12:00 98.7 85 12 106/44 (64) 97 06/06/18 12:00 35 06/06/18 12:00 Mechanical Ventilator 06/06/18 11:29 86 17 35 06/06/18 11:29 99 06/06/18 11:00 88 12 115/50 (71) 98 06/06/18 10:00 86 12 100/45 (63) 98 06/06/18 09:23 86 12 35 06/06/18 09:00 86 12 106/43 (64) 98 06/06/18 08:42 90 111/50 06/06/18 08:00 98.2 98 12 111/48 (69) 98 06/06/18 08:00 35 06/06/18 08:00 92 06/06/18 08:00 Mechanical Ventilator 06/06/18 07:34 91 13 99 Mechanical Ventilator 35 06/06/18 07:24 81 12 98 Mechanical Ventilator 35 06/06/18 07:24 81 12 35 06/06/18 07:00 82 12 100/40 (60) 98 06/06/18 06:00 77 12 118/47 (70) 97 06/06/18 05:27 83 12 35 06/06/18 05:00 86 12 109/45 (66) 97 06/06/18 04:00 98.5 101 13 114/45 (68) 98 06/06/18 04:00 35 06/06/18 04:00 Mechanical Ventilator 06/06/18 03:22 102 06/06/18 03:19 94 13 35 06/06/18 03:00 93 12 109/45 (66) 98 06/06/18 02:00 84 12 112/44 (66) 100 06/06/18 01:55 80 12 100 Mechanical Ventilator 35 06/06/18 01:32 100 12 35 06/06/18 01:31 100 12 98 Mechanical Ventilator 35 06/06/18 01:00 85 12 100/47 (64) 98 06/06/18 00:00 35 06/06/18 00:00 98.3 89 12 100/42 (61) 98 06/06/18 00:00 Mechanical Ventilator 06/05/18 23:42 91 06/05/18 23:19 93 12 35 06/05/18 23:00 92 12 112/46 (68) 98 06/05/18 22:00 94 12 107/46 (66) 98 06/05/18 21:10 92 12 35 06/05/18 21:00 92 12 107/50 (69) 98 Intake and Output 06/05/18 06/06/18 19:00 07:00 Intake Total 910 ml 1035 ml Output Total 620 ml 460 ml Balance 290 ml 575 ml Free Water 120 ml IV Total 110 ml 275 ml Tube Feeding 540 ml 540 ml Other 260 ml 100 ml Output Urine Total 620 ml 460 ml Laboratory Tests 06/06/18 04:00: White Blood Count 11.3H, Red Blood Count 3.78L, Hemoglobin 8.2L, Hematocrit 26.2L, Mean Corpuscular Volume 69L, Mean Corpuscular Hemoglobin 21.7L, Mean Corpuscular Hemoglobin Concent 31.2L, Red Cell Distribution Width 15.0H, Platelet Count 208, Mean Platelet Volume 7.4, Neutrophils (%) (Auto) 72.1, Lymphocytes (%) (Auto) 19.1L, Monocytes (%) (Auto) 5.6, Eosinophils (%) (Auto) 2.5, Basophils (%) (Auto) 0.7, Sodium Level 143, Potassium Level 4.4, Chloride Level 104, Carbon Dioxide Level 36H, Anion Gap 3L, Blood Urea Nitrogen 38H, Creatinine 1.5H, Estimat Glomerular Filtration Rate , Glucose Level 126H, Uric Acid 4.6, Calcium Level 8.1L, Phosphorus Level 2.2L, Magnesium Level 2.5H, Total Bilirubin 0.2, Aspartate Amino Transf (AST/SGOT) 14L, Alanine Aminotransferase (ALT/SGPT) 13, Alkaline Phosphatase 64, Pro-B-Type Natriuretic Peptide 245H, Total Protein 5.7L, Albumin 2.0L, Globulin 3.7, Albumin/Globulin Ratio 0.5L, Thyroid Stimulating Hormone (TSH) 0.722 06/06/18 09:45: Arterial Blood pH 7.433, Arterial Blood Partial Pressure CO2 52.2H, Arterial Blood Partial Pressure O2 53.8L, Arterial Blood HCO3 34.1H, Arterial Blood Oxygen Saturation 88.0*L, Arterial Blood Base Excess 8.7H, David Test Positive Height (Feet): 5 Height (Inches): 4.00 Weight (Pounds): 118 General Appearance: alert, mild distress, agitated EENT: PERRL/EOMI, pharynx normal Neck: non-tender, supple Cardiovascular: normal rate, regular rhythm, no gallop/murmur, no JVD Respiratory/Chest: crackles/rales, rhonchi - bilaterally Abdomen: non tender, soft, no mass Extremities: non-tender, normal inspection, no calf tenderness Edema: 1+ Arm (L), 1+ Arm (R); no edema noted Leg (L), no edema noted Leg (R), no edema noted Pedal (L); 1+ Pedal (R), 1+ Generalized Edema: trace edema Neurologic: alert Skin: warm/dry Lymphatic: normal anterior cervical (L), normal anterior cervical (R), normal posterior cervical (L), normal posterior cervical (R), normal submandibular (L) , normal submandibular (R), normal supraclavicular (L), normal supraclavicular ( R), normal axillary (L), normal axillary (R), normal inguinal (L), normal inguinal (R), normal other Cruz Valderrama MD Jun 06, 2018 20:45
[2018-06-06] MEDS: Miralax 17gm pkt ORAL SCH (21:00)
--- NOTE | 2018-06-06 22:00 | NUR ---
NURSE NOTES: reposition and suction dr vicente with order to transfuse 1nit prbc order made
[2018-06-07] VITALS (23 sets, daily range): BP systolic 95–169; BP diastolic 40–113
--- NOTE | 2018-06-07 | NUR ---
NURSE NOTES: prbc is ready no consent family
[2018-06-07] MEDS: Albuterol/Ipratropium 3ml neb HHN SCH ×4 (01:35→19:47)
[2018-06-07] MEDS: LORazepam Inj 2mg/ml 1ml IV PRN ×4 (01:59→23:52)
--- NOTE | 2018-06-07 02:00 | NUR ---
NURSE NOTES: awake and restless and adgited medicated with ativan as order
--- NOTE | 2018-06-07 04:00 | NUR ---
NURSE NOTES: hab bm stool specimen send to lab for oc blood as order complete bed bath done reposition and suction
[2018-06-07 05:41] LABS: BASOPHILS % (AUTO) 0.7 % (0.0-2.0); EOSINOPHILS % (AUTO) 1.9 % (0.0-3.0); HEMOGLOBIN 8.4 G/DL (12.0-16.0); MEAN CORPUSCULAR VOLUME 69 FL (80-99); NEUTROPHILS % (AUTO) 77.4 % (45.0-75.0); PLATELET COUNT 239 K/UL (150-450); RED BLOOD COUNT 3.89 M/UL (4.20-5.40); RED CELL DISTRIBUTION WIDTH 14.6 % (11.6-14.8); WHITE BLOOD COUNT 12.9 K/UL (4.8-10.8)
[2018-06-07 06:02] LABS: ALANINE AMINOTRANSFERASE 17 U/L (12-78); ALBUMIN 2.2 G/DL (3.4-5.0); ALBUMIN/GLOBULIN RATIO 0.6 (1.0-2.7); ALKALINE PHOSPHATASE 70 U/L (46-116); ANION GAP 4 mmol/L (5-15); ASPARTATE AMINO TRANSFERASE 19 U/L (15-37); BILIRUBIN,TOTAL 0.2 MG/DL (0.2-1.0); BLOOD UREA NITROGEN 40 mg/dL (7-18); CALCIUM 8.6 MG/DL (8.5-10.1); CARBON DIOXIDE 35 MMOL/L (21-32); CHLORIDE 103 MMOL/L (98-107); CREATININE 1.5 MG/DL (0.55-1.30); PHOSPHORUS 4.1 MG/DL (2.5-4.9); POTASSIUM 4.8 MMOL/L (3.5-5.1); SODIUM 142 MMOL/L (136-145)
--- NOTE | 2018-06-07 07:15 | NUR ---
RESPIRATORY NOTE: Received pt on AC 12, 500VT, 35%, PEEP +5. Pt intubated w/ ETT 7.5 @ 21cm lipline, secured by anchorfast. Pt is alert and awake. Both hands on soft-restraints to prevent self-extubation. B/S brad. rhonchi/diminished, sxn moderate amounts of thick thin white-yellow secretions without incidents, breathing Tx is discontinue. Put pt on CPAP -10- 35% FiO2, pt didn't darrick well, really agitated, RR>40 bpm, Vt < 250ml. Placed pt back on AC mode. MARGY Aleman made aware. Vent plugged into red outlet, ambubag at bedside, alarms are set and audible. Vent circuit and Sx tubbing secure and out of the way to prevent pt grabbing the tubbing. Pt is in no apparent distress at this time. Will continue to monitor pt.
--- NOTE | 2018-06-07 07:40 | NUR ---
NURSE NOTES: Patient received lying in bed, awake, alert, restless. Orally intubated, ET size 7.5, vent settings: AC 12, TV-500, FiO2-35, oxygen saturation at 95-99%, rhonchi noted to bilateral lung simpson. Suctioning provided, noted blood tinged sputum, reactive gag reflex. Right Nare NG tube running Osmolite at 45 ml/hr, tolerating, no residual. HOB elevated for aspiration precaution. Bilateral soft wrist restraints in place, pulses and skin intact. Right upper arm PICC running TKO, asymptomatic. Sinclair catheter in place, straw colored urine noted. Patient's heel is offloaded. Sacral dressing intact. Sinus Rhythm on the monitor. Bed kept at lowest position. Pending 1 unit PRBC transfusion and CXR this morning. Will continue to monitor the patient. Addendum: 06/07/18 at 0920 by Ash Romeo RN vent settings: AC 12, TV-500, FiO2-35%, PEEP-5
--- NOTE | 2018-06-07 07:52 | NUR ---
HAND-OFF: Report given to lali amaro using sbar.
[2018-06-07] MEDS: Pantoprazole Inj IV SCH (08:23)
--- NOTE | 2018-06-07 08:23 | NUR ---
NURSE NOTES: Patient kicking off pillows, restless, denies pain. Will give PRN Ativan as ordered and continue to monitor the patient.
[2018-06-07] MEDS: Heparin 5000 units/ml inj SUBQ SCH ×2 (08:28→21:01)
[2018-06-07] MEDS: Amiodarone 200mg tab ORAL SCH (08:37)
--- NOTE | 2018-06-07 09:25 | NUR ---
NURSE NOTES: Dr. Valderrama came and assessed patient, informed about trending up white count 12.9, blood tinged sputum during suctioning this morning, PRN Ativan being utilized and patient failed trial of weaning this morning. No new orders at this time.
--- NOTE | 2018-06-07 09:30 | General Progress Note ---
Assessment/Plan Status: not improved Assessment/Plan This is an 87-year-old female admitted with chronic obstructive pulmonary disease exacerbation, right lower lobe infiltrate/pneumonia with altered mental status and acute kidney injury. The patient will be admitted to [facility] with the following medical problems. 1. Chronic obstructive pulmonary disease exacerbation and pneumonia. The patient has been seen by Pulmonary. Infectious Disease has been consulted, pancultured. IV antibiotics per ID. Continue with BiPAP and suction p.r.n. Transition to Venturi-mask when stable. 2. Acute kidney injury. We will monitor I's and O's, gentle intravenous fluids. Repeat a BMP in a.m. Consider Nephrology consult. 3. History of chronic atrial fibrillation. Continue with amiodarone. The patient is in sinus rhythm at this time. 4. History of hypertension. Continue with amlodipine and hold for systolic blood pressure less than 110. 5. Altered mental status, most likely from above conditions. We will keep n.p.o. except for medications and start IV fluids. 6. DVT prophylaxis with heparin subcutaneous and SCDs. 7. The patient is Full Code per policy. We will discuss with the family. 8. hypokalmia 9. Anemia 10. CHf acute on chronic 11. leucocytosis Plan: - now in ICU on VENT support - continue present care - iV antibioitics and fluids - NGT placed for nutrition - monitor lights patient is full code per family's wish discussed with ICU nurse - wean off vent per ICU team no plan for PEG at this time - transfuse one unit of PRBC - s/p lasix 20 mg iv with good diuresis Subjective Date patient seen: Jun 07, 2018 ROS Limited/Unobtainable: Yes Neurologic/Psychiatric: Reports: anxiety Allergies: Coded Allergies: Mushroom (Verified Allergy, Severe, 05/28/18) MORPHINE (Unverified Allergy, Intermediate, Itching, 01/04/15) PENICILLINS (Unverified Allergy, Intermediate, Hives, 01/04/15) CELECOXIB (Verified Allergy, Mild, 01/15/09) Subjective patient with acute respiratory failure continues to remain intubated in ICU, unable to wean off due to patient is tachypneic Objective Last 24 Hour Vital Signs Date Time Temp Pulse Resp B/P (MAP) Pulse Ox O2 Delivery O2 Flow Rate FiO2 06/07/18 09:00 92 12 107/52 (70) 96 06/07/18 08:37 96 126/49 06/07/18 08:01 103 16 100 Mechanical Ventilator 35 06/07/18 08:00 106 21 126/49 (74) 96 06/07/18 08:00 99 06/07/18 08:00 Mechanical Ventilator 06/07/18 08:00 35 06/07/18 07:51 101 15 98 Mechanical Ventilator 35 06/07/18 07:15 104 17 35 06/07/18 07:13 107 43 35 06/07/18 07:08 103 22 35 06/07/18 07:00 100.0 108 26 104/85 (91) 99 06/07/18 06:00 88 12 117/47 (70) 100 06/07/18 05:12 106 15 35 06/07/18 05:00 90 12 169/113 (131) 100 06/07/18 04:00 35 06/07/18 04:00 Mechanical Ventilator 06/07/18 04:00 85 06/07/18 04:00 98.0 85 12 136/50 (78) 100 06/07/18 03:00 88 12 117/95 (102) 100 06/07/18 02:54 92 12 35 06/07/18 02:00 95 12 134/72 (92) 100 06/07/18 01:35 Mechanical Ventilator 35 06/07/18 01:35 122 21 Mechanical Ventilator 35 06/07/18 01:35 122 21 35 06/07/18 01:35 Mechanical Ventilator 35 06/07/18 01:00 88 12 117/40 (65) 100 06/07/18 00:00 Mechanical Ventilator 06/07/18 00:00 35 06/07/18 00:00 91 06/07/18 00:00 98.0 88 12 107/45 (65) 100 06/07/18 00:00 35 06/06/18 23:02 98 21 35 06/06/18 23:00 88 12 120/45 (70) 100 06/06/18 22:00 93 15 118/46 (70) 100 06/06/18 21:06 92 12 35 06/06/18 21:00 97.8 97 14 112/45 (67) 97 06/06/18 20:21 99 15 98 Mechanical Ventilator 35 06/06/18 20:11 92 13 96 Mechanical Ventilator 35 06/06/18 20:11 92 13 35 06/06/18 20:00 88 12 107/45 (65) 100 06/06/18 20:00 Mechanical Ventilator 06/06/18 20:00 35 06/06/18 20:00 98 06/06/18 19:00 93 12 112/48 (69) 100 06/06/18 18:37 95 110/60 06/06/18 18:00 88 12 109/45 (66) 100 06/06/18 17:17 98 14 35 06/06/18 17:00 95 12 134/53 (80) 100 06/06/18 16:00 Mechanical Ventilator 06/06/18 16:00 98.9 98 12 130/60 (83) 100 06/06/18 16:00 98 06/06/18 16:00 35 06/06/18 15:05 95 17 35 06/06/18 15:00 99 12 133/55 (81) 100 06/06/18 14:11 102 13 94 Mechanical Ventilator 35 06/06/18 14:03 110 15 95 Mechanical Ventilator 35 06/06/18 14:00 98 12 105/55 (72) 100 06/06/18 13:12 85 12 35 06/06/18 13:00 100 12 98/55 (69) 100 06/06/18 12:00 87 06/06/18 12:00 98.7 85 12 106/44 (64) 97 06/06/18 12:00 35 06/06/18 12:00 Mechanical Ventilator 06/06/18 11:29 86 17 35 06/06/18 11:29 99 06/06/18 11:00 88 12 115/50 (71) 98 06/06/18 10:00 86 12 100/45 (63) 98 Intake and Output 06/06/18 06/07/18 19:00 07:00 Intake Total 910.546 ml 540 ml Output Total 380 ml 820 ml Balance 530.546 ml -280 ml Free Water 120 ml IV Total 250.546 ml Tube Feeding 540 ml 540 ml Output Urine Total 380 ml 820 ml # Bowel Movements 2 Laboratory Tests 06/06/18 09:45: Arterial Blood pH 7.433, Arterial Blood Partial Pressure CO2 52.2H, Arterial Blood Partial Pressure O2 53.8L, Arterial Blood HCO3 34.1H, Arterial Blood Oxygen Saturation 88.0*L, Arterial Blood Base Excess 8.7H, David Test Positive 06/07/18 04:00: Stool Occult Blood [Pending] 06/07/18 04:25: White Blood Count 12.9H, Red Blood Count 3.89L, Hemoglobin 8.4L, Hematocrit 27.0L, Mean Corpuscular Volume 69L, Mean Corpuscular Hemoglobin 21.6L, Mean Corpuscular Hemoglobin Concent 31.1L, Red Cell Distribution Width 14.6, Platelet Count 239, Mean Platelet Volume 7.4, Neutrophils (%) (Auto) 77.4H, Lymphocytes (%) (Auto) 14.0L, Monocytes (%) (Auto) 6.0, Eosinophils (%) (Auto) 1.9, Basophils (%) (Auto) 0.7, Sodium Level 142, Potassium Level 4.8, Chloride Level 103, Carbon Dioxide Level 35H, Anion Gap 4L, Blood Urea Nitrogen 40H, Creatinine 1.5H, Estimat Glomerular Filtration Rate , Glucose Level 104, Calcium Level 8.6, Phosphorus Level 4.1, Magnesium Level 2.5H, Total Bilirubin 0.2, Aspartate Amino Transf (AST/SGOT) 19, Alanine Aminotransferase (ALT/SGPT) 17, Alkaline Phosphatase 70, Total Protein 6.1L, Albumin 2.2L, Globulin 3.9, Albumin/Globulin Ratio 0.6L Height (Feet): 5 Height (Inches): 4.00 Weight (Pounds): 118 General Appearance: mild distress EENT: PERRL/EOMI, pharynx normal Neck: non-tender, supple Cardiovascular: normal rate, regular rhythm, no gallop/murmur, no JVD Respiratory/Chest: rhonchi - bilaterally Abdomen: non tender, soft, no mass Extremities: non-tender, normal inspection, no calf tenderness Edema: 1+ Arm (L), 1+ Arm (R); no edema noted Leg (L), no edema noted Leg (R), no edema noted Pedal (L), no edema noted Pedal (R), no edema noted Generalized Edema: trace edema 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
[2018-06-07] MEDS: Cefepime HCl 1 GM in D5W 55 ML IV SCH (09:35)
--- NOTE | 2018-06-07 09:42 | Infectious Diseases Prog Note ---
Assessment/Plan Assessment/Plan 87 yo feamle with PMHx of COPD, HTN, and A.fib sent to the ED from her nuring home for SOB. Sepsis - Likely PNA 05/28/18 CXR with atalectasis vs consolidation in the right side. 06/01/18 CXR - Extensive right hemithorax opacification UA (-) Sputum Cx 05/28/18 - MRSA (Inf Neg) Urine legionella (-) Positive blood Cx - Likely contaminant BCx 05/28/18 - CoNS BCX 05/30/18 - NGTD Leukocytosis 15 on admit - now resolved Febrile to 101.5 - now resolved COPD CAD A. fib PLAN - Continue Cefepime #11and vancomycin #11 - Monitor CBC and Temps We will continue to follow Ms. Nowak during this hospitalization. Subjective Allergies: Coded Allergies: Mushroom (Verified Allergy, Severe, 05/28/18) MORPHINE (Unverified Allergy, Intermediate, Itching, 01/04/15) PENICILLINS (Unverified Allergy, Intermediate, Hives, 01/04/15) CELECOXIB (Verified Allergy, Mild, 01/15/09) Subjective Intubated satting well Afebrile Mild Leukocytosis Objective Vital Signs Last 24 Hour Vital Signs Date Time Temp Pulse Resp B/P (MAP) Pulse Ox O2 Delivery O2 Flow Rate FiO2 06/07/18 09:00 92 12 107/52 (70) 96 06/07/18 08:37 96 126/49 06/07/18 08:01 103 16 100 Mechanical Ventilator 35 06/07/18 08:00 106 21 126/49 (74) 96 06/07/18 08:00 99 06/07/18 08:00 Mechanical Ventilator 06/07/18 08:00 35 06/07/18 07:51 101 15 98 Mechanical Ventilator 35 06/07/18 07:15 104 17 35 06/07/18 07:13 107 43 35 06/07/18 07:08 103 22 35 06/07/18 07:00 100.0 108 26 104/85 (91) 99 06/07/18 06:00 88 12 117/47 (70) 100 06/07/18 05:12 106 15 35 06/07/18 05:00 90 12 169/113 (131) 100 06/07/18 04:00 35 2/5/19 04:00 Mechanical Ventilator 06/07/18 04:00 85 06/07/18 04:00 98.0 85 12 136/50 (78) 100 06/07/18 03:00 88 12 117/95 (102) 100 06/07/18 02:54 92 12 35 06/07/18 02:00 95 12 134/72 (92) 100 06/07/18 01:35 Mechanical Ventilator 35 06/07/18 01:35 122 21 Mechanical Ventilator 35 06/07/18 01:35 122 21 35 06/07/18 01:35 Mechanical Ventilator 35 06/07/18 01:00 88 12 117/40 (65) 100 06/07/18 00:00 Mechanical Ventilator 06/07/18 00:00 35 06/07/18 00:00 91 06/07/18 00:00 98.0 88 12 107/45 (65) 100 06/07/18 00:00 35 06/06/18 23:02 98 21 35 06/06/18 23:00 88 12 120/45 (70) 100 06/06/18 22:00 93 15 118/46 (70) 100 06/06/18 21:06 92 12 35 06/06/18 21:00 97.8 97 14 112/45 (67) 97 06/06/18 20:21 99 15 98 Mechanical Ventilator 35 06/06/18 20:11 92 13 96 Mechanical Ventilator 35 06/06/18 20:11 92 13 35 06/06/18 20:00 88 12 107/45 (65) 100 06/06/18 20:00 Mechanical Ventilator 06/06/18 20:00 35 06/06/18 20:00 98 06/06/18 19:00 93 12 112/48 (69) 100 06/06/18 18:37 95 110/60 06/06/18 18:00 88 12 109/45 (66) 100 06/06/18 17:17 98 14 35 06/06/18 17:00 95 12 134/53 (80) 100 06/06/18 16:00 Mechanical Ventilator 06/06/18 16:00 98.9 98 12 130/60 (83) 100 06/06/18 16:00 98 06/06/18 16:00 35 06/06/18 15:05 95 17 35 06/06/18 15:00 99 12 133/55 (81) 100 06/06/18 14:11 102 13 94 Mechanical Ventilator 35 06/06/18 14:03 110 15 95 Mechanical Ventilator 35 06/06/18 14:00 98 12 105/55 (72) 100 06/06/18 13:12 85 12 35 06/06/18 13:00 100 12 98/55 (69) 100 06/06/18 12:00 87 06/06/18 12:00 98.7 85 12 106/44 (64) 97 06/06/18 12:00 35 06/06/18 12:00 Mechanical Ventilator 06/06/18 11:29 86 17 35 06/06/18 11:29 99 06/06/18 11:00 88 12 115/50 (71) 98 06/06/18 10:00 86 12 100/45 (63) 98 Height (Feet): 5 Height (Inches): 4.00 Weight (Pounds): 118 Objective General: NAD, cachetic, Intubated on Vent HEENT: normocephalic, atraumatic, DMM, EOMI Respiratory/Chest: Mild crakles B/L Cardiovascular/Chest: RRR, S1, S2 Abdomen: Soft, NT, ND, + BS Microbiology Date/Time Source Procedure Growth Status 06/05/18 11:25 Blood Blood Culture - Preliminary NO GROWTH AFTER 24 HOURS Resulted 06/05/18 11:10 Blood Blood Culture - Preliminary NO GROWTH AFTER 24 HOURS Resulted Laboratory Tests Test 06/06/18 09:45 06/07/18 04:00 06/07/18 04:25 Arterial Blood pH 7.433 (7.350-7.450) Arterial Blood Partial Pressure CO2 52.2 mmHg (35.0-45.0) H Arterial Blood Partial Pressure O2 53.8 mmHg (75.0-100.0) L Arterial Blood HCO3 34.1 mmol/L (22.0-26.0) H Arterial Blood Oxygen Saturation 88.0 % (95-100) *L Arterial Blood Base Excess 8.7 (-2-2) H David Test Positive Stool Occult Blood Pending White Blood Count 12.9 K/UL (4.8-10.8) H Red Blood Count 3.89 M/UL (4.20-5.40) L Hemoglobin 8.4 G/DL (12.0-16.0) L Hematocrit 27.0 % (37.0-47.0) L Mean Corpuscular Volume 69 FL (80-99) L Mean Corpuscular Hemoglobin 21.6 PG (27.0-31.0) L Mean Corpuscular Hemoglobin Concent 31.1 G/DL (32.0-36.0) L Red Cell Distribution Width 14.6 % (11.6-14.8) Platelet Count 239 K/UL (150-450) Mean Platelet Volume 7.4 FL (6.5-10.1) Neutrophils (%) (Auto) 77.4 % (45.0-75.0) H Lymphocytes (%) (Auto) 14.0 % (20.0-45.0) L Monocytes (%) (Auto) 6.0 % (1.0-10.0) Eosinophils (%) (Auto) 1.9 % (0.0-3.0) Basophils (%) (Auto) 0.7 % (0.0-2.0) Sodium Level 142 MMOL/L (136-145) Potassium Level 4.8 MMOL/L (3.5-5.1) Chloride Level 103 MMOL/L (98-107) Carbon Dioxide Level 35 MMOL/L (21-32) H Anion Gap 4 mmol/L (5-15) L Blood Urea Nitrogen 40 mg/dL (7-18) H Creatinine 1.5 MG/DL (0.55-1.30) H Estimat Glomerular Filtration Rate mL/min (>60) Glucose Level 104 MG/DL (74-106) Calcium Level 8.6 MG/DL (8.5-10.1) Phosphorus Level 4.1 MG/DL (2.5-4.9) Magnesium Level 2.5 MG/DL (1.8-2.4) H Total Bilirubin 0.2 MG/DL (0.2-1.0) Aspartate Amino Transf (AST/SGOT) 19 U/L (15-37) Alanine Aminotransferase (ALT/SGPT) 17 U/L (12-78) Alkaline Phosphatase 70 U/L (46-116) Total Protein 6.1 G/DL (6.4-8.2) L Albumin 2.2 G/DL (3.4-5.0) L Globulin 3.9 g/dL Albumin/Globulin Ratio 0.6 (1.0-2.7) L Current Medications Medications (Trade) Dose Ordered Sig/Ann Route PRN Reason Start Time Stop Time Status Last Admin Dose Admin Acetaminophen (Tylenol) 650 mg Q4H PRN ORAL Mild Pain/Temp > 100.5 06/07/18 09:30 06/27/18 13:29 Albuterol/ Ipratropium (Albuterol/ Ipratropium) 3 ml Q6HRT HHN 06/07/18 07:45 06/12/18 07:44 06/07/18 07:51 Amiodarone HCl (Cordarone) 100 mg DAILY ORAL 06/03/18 09:00 06/30/18 08:59 06/07/18 08:37 Amlodipine Besylate (Norvasc) 5 mg BID ORAL 06/02/18 18:00 06/27/18 08:59 06/07/18 08:37 Cefepime HCl 1 gm/ Dextrose 55 ml @ 110 mls/hr Q24H IV 06/03/18 09:00 06/09/18 08:59 06/07/18 09:35 Chlorhexidine Gluconate (Myra-Hex 2%) 1 applic DAILY@2000 TOPIC 06/02/18 20:00 07/02/18 19:59 06/06/18 20:38 Furosemide (Lasix) 20 mg EVERY 12 HOURS ORAL 06/06/18 22:15 07/06/18 22:14 06/07/18 08:37 Heparin Sodium (Porcine) (Heparin 5000 units/ml) 5,000 units EVERY 12 HOURS SUBQ 06/02/18 21:00 06/27/18 08:59 06/07/18 08:28 Lorazepam (Ativan 2mg/ml 1ml) 2 mg Q4H PRN IV For Anxiety 06/02/18 14:30 06/09/18 14:14 06/07/18 08:23 Nitroglycerin (Ntg) 0.4 mg Q5M PRN SL Prn Chest Pain 06/02/18 13:30 06/27/18 13:29 Ondansetron HCl (Zofran) 4 mg Q6H PRN IVP Nausea & Vomiting 06/02/18 13:30 06/27/18 07:29 Pantoprazole (Protonix) 40 mg DAILY IV 06/03/18 09:00 3/3/19 08:59 06/07/18 08:23 Polyethylene Glycol (Miralax) 17 gm BEDTIME ORAL 06/06/18 21:00 07/06/18 20:59 06/06/18 21:00 Polyethylene Glycol (Miralax) 17 gm DAILYPRN PRN ORAL Constipation 06/02/18 13:30 07/02/18 13:29 06/05/18 20:57 Quetiapine Fumarate (SEROquel) 25 mg Q6H PRN ORAL For Anxiety 06/02/18 13:30 06/29/18 13:29 Temazepam (Restoril) 15 mg HSPRN PRN ORAL Insomnia 06/02/18 20:00 06/09/18 19:59 Vancomycin HCl (Vanco rx to dose) 1 ea DAILY PRN MISC Per rx protocol 06/02/18 13:30 07/02/18 13:29 Vancomycin HCl 1 gm/Dextrose 275 ml @ 183.708 mls/hr Q36H IVPB 06/04/18 13:00 06/09/18 12:59 06/06/18 01:00 Clint Harris MD Jun 07, 2018 09:42
--- NOTE | 2018-06-07 09:47 | NUR ---
RADIOLOGY DEPT CHEST X-RAY DONE.-P.DYE
--- NOTE | 2018-06-07 10:10 | NUR ---
NURSE NOTES: Dr. Harris made aware of trending WBC, patient's temp was 100.0 this morning. No new orders at this time.
--- NOTE | 2018-06-07 10:20 | NUR ---
NURSE NOTES: Dr. Mariee in facility, made aware of ABG results, no new orders at this time.
--- NOTE | 2018-06-07 10:25 | Pulmonolgy Critical Care Note ---
Critical Care - Asmt/Plan Problems: (1) Acute respiratory failure (2) Aspiration pneumonia (3) Acute encephalopathy (4) Pleural effusion (5) COPD (chronic obstructive pulmonary disease) (6) CAD (coronary artery disease) (7) Dementia Respiratory: monitor respiratory rate, adjust FIO2, CXR Cardiac: continue pressors, continue to monitor HR/BP Renal: F/U I&O, keep IV fluid Infectious Disease: check cultures Gastrointestinal: continue feedings/current rate Endocrine: monitor blood sugar, check HgA1C, continue sliding scale insulin Hematologic: transfuse if hgb<8.5 Neurologic: PRN Ativan, PRN Morphine Prophylaxis: Protonix, Heparin Time Spent (Minutes): 40 Notes Reviewed: cardio, renal Discussed with: nurses, consultants, case management coordinatorcopy manager - Objective Last 24 Hour Vital Signs Date Time Temp Pulse Resp B/P (MAP) Pulse Ox O2 Delivery O2 Flow Rate FiO2 06/07/18 09:15 100 06/07/18 09:15 92 12 35 06/07/18 09:00 92 12 107/52 (70) 96 06/07/18 08:37 96 126/49 06/07/18 08:01 103 16 100 Mechanical Ventilator 35 06/07/18 08:00 106 21 126/49 (74) 96 06/07/18 08:00 99 06/07/18 08:00 Mechanical Ventilator 06/07/18 08:00 35 06/07/18 07:51 101 15 98 Mechanical Ventilator 35 06/07/18 07:15 104 17 35 06/07/18 07:13 107 43 35 06/07/18 07:08 103 22 35 06/07/18 07:00 100.0 108 26 104/85 (91) 99 06/07/18 06:00 88 12 117/47 (70) 100 06/07/18 05:12 106 15 35 06/07/18 05:00 90 12 169/113 (131) 100 06/07/18 04:00 35 06/07/18 04:00 Mechanical Ventilator 06/07/18 04:00 85 06/07/18 04:00 98.0 85 12 136/50 (78) 100 06/07/18 03:00 88 12 117/95 (102) 100 06/07/18 02:54 92 12 35 06/07/18 02:00 95 12 134/72 (92) 100 06/07/18 01:35 Mechanical Ventilator 35 06/07/18 01:35 122 21 Mechanical Ventilator 35 06/07/18 01:35 122 21 35 06/07/18 01:35 Mechanical Ventilator 35 06/07/18 01:00 88 12 117/40 (65) 100 06/07/18 00:00 Mechanical Ventilator 06/07/18 00:00 35 06/07/18 00:00 91 06/07/18 00:00 98.0 88 12 107/45 (65) 100 06/07/18 00:00 35 06/06/18 23:02 98 21 35 06/06/18 23:00 88 12 120/45 (70) 100 06/06/18 22:00 93 15 118/46 (70) 100 06/06/18 21:06 92 12 35 06/06/18 21:00 97.8 97 14 112/45 (67) 97 06/06/18 20:21 99 15 98 Mechanical Ventilator 35 06/06/18 20:11 92 13 96 Mechanical Ventilator 35 06/06/18 20:11 92 13 35 06/06/18 20:00 88 12 107/45 (65) 100 06/06/18 20:00 Mechanical Ventilator 06/06/18 20:00 35 06/06/18 20:00 98 06/06/18 19:00 93 12 112/48 (69) 100 06/06/18 18:37 95 110/60 06/06/18 18:00 88 12 109/45 (66) 100 06/06/18 17:17 98 14 35 06/06/18 17:00 95 12 134/53 (80) 100 06/06/18 16:00 Mechanical Ventilator 06/06/18 16:00 98.9 98 12 130/60 (83) 100 06/06/18 16:00 98 06/06/18 16:00 35 06/06/18 15:05 95 17 35 06/06/18 15:00 99 12 133/55 (81) 100 06/06/18 14:11 102 13 94 Mechanical Ventilator 35 06/06/18 14:03 110 15 95 Mechanical Ventilator 35 06/06/18 14:00 98 12 105/55 (72) 100 06/06/18 13:12 85 12 35 06/06/18 13:00 100 12 98/55 (69) 100 06/06/18 12:00 87 06/06/18 12:00 98.7 85 12 106/44 (64) 97 06/06/18 12:00 35 06/06/18 12:00 Mechanical Ventilator 06/06/18 11:29 86 17 35 06/06/18 11:29 99 06/06/18 11:00 88 12 115/50 (71) 98 Status: obtunded Condition: critical HEENT: atraumatic Lungs: clear Heart: HR/BP stable Abdomen: soft, non-tender, active bowel sounds Extremities: no C/C/E Decubiti: location Micro: Microbiology Date/Time Source Procedure Growth Status 06/05/18 11:25 Blood Blood Culture - Preliminary NO GROWTH AFTER 24 HOURS Resulted 06/05/18 11:10 Blood Blood Culture - Preliminary NO GROWTH AFTER 24 HOURS Resulted Critical Care - Subjective ROS Limited/Unobtainable: Yes Condition: critical EKG Rhythm: Sinus Rhythm FI02: 35 Vent Support Breath Rate: 12 Vent Support Mode: CPAP Vent Tidal Volume: 500 Sputum Amount: Small PEEP: 5.0 PIP: 31 Tube Feeding Amount: 45 I&O: Intake and Output 06/06/18 06/07/18 19:00 07:00 Intake Total 910.546 ml 540 ml Output Total 380 ml 820 ml Balance 530.546 ml -280 ml Free Water 120 ml IV Total 250.546 ml Tube Feeding 540 ml 540 ml Output Urine Total 380 ml 820 ml # Bowel Movements 2 CXR: ET in good position, right lung remains open ET-Tube: 7.5 ET Position: 21 Labs: Laboratory Tests Test 06/07/18 04:00 06/07/18 04:25 06/07/18 09:37 Stool Occult Blood Negative (NEGATIVE) White Blood Count 12.9 K/UL (4.8-10.8) H Red Blood Count 3.89 M/UL (4.20-5.40) L Hemoglobin 8.4 G/DL (12.0-16.0) L Hematocrit 27.0 % (37.0-47.0) L Mean Corpuscular Volume 69 FL (80-99) L Mean Corpuscular Hemoglobin 21.6 PG (27.0-31.0) L Mean Corpuscular Hemoglobin Concent 31.1 G/DL (32.0-36.0) L Red Cell Distribution Width 14.6 % (11.6-14.8) Platelet Count 239 K/UL (150-450) Mean Platelet Volume 7.4 FL (6.5-10.1) Neutrophils (%) (Auto) 77.4 % (45.0-75.0) H Lymphocytes (%) (Auto) 14.0 % (20.0-45.0) L Monocytes (%) (Auto) 6.0 % (1.0-10.0) Eosinophils (%) (Auto) 1.9 % (0.0-3.0) Basophils (%) (Auto) 0.7 % (0.0-2.0) Sodium Level 142 MMOL/L (136-145) Potassium Level 4.8 MMOL/L (3.5-5.1) Chloride Level 103 MMOL/L (98-107) Carbon Dioxide Level 35 MMOL/L (21-32) H Anion Gap 4 mmol/L (5-15) L Blood Urea Nitrogen 40 mg/dL (7-18) H Creatinine 1.5 MG/DL (0.55-1.30) H Estimat Glomerular Filtration Rate mL/min (>60) Glucose Level 104 MG/DL (74-106) Calcium Level 8.6 MG/DL (8.5-10.1) Phosphorus Level 4.1 MG/DL (2.5-4.9) Magnesium Level 2.5 MG/DL (1.8-2.4) H Total Bilirubin 0.2 MG/DL (0.2-1.0) Aspartate Amino Transf (AST/SGOT) 19 U/L (15-37) Alanine Aminotransferase (ALT/SGPT) 17 U/L (12-78) Alkaline Phosphatase 70 U/L (46-116) Total Protein 6.1 G/DL (6.4-8.2) L Albumin 2.2 G/DL (3.4-5.0) L Globulin 3.9 g/dL Albumin/Globulin Ratio 0.6 (1.0-2.7) L Arterial Blood pH 7.478 (7.350-7.450) Arterial Blood Partial Pressure CO2 55.3 mmHg (35.0-45.0) *H Arterial Blood Partial Pressure O2 77.8 mmHg (75.0-100.0) Arterial Blood HCO3 40.1 mmol/L (22.0-26.0) *H Arterial Blood Oxygen Saturation 95.6 % (95-100) Arterial Blood Base Excess 14.7 (-2-2) *H David Test Positive Yuliet Mariee MD Jun 07, 2018 10:25
--- NOTE | 2018-06-07 10:30 | NUR ---
NURSE NOTES: 1 unit PRBC transfusion started, verified right blood product and patient with MARGY Sexton. Vital signs taken: BP-127/66, VA-96, Temp - 98.8, RR-14, recorded.
--- NOTE | 2018-06-07 10:45 | NUR ---
NURSE NOTES: Vital signs taken 15 Mins into transfusion, no reactions noted, Vital signs taken: T-98.1, NV- 87, BP-121/45.
--- NOTE | 2018-06-07 11:29 | Cardiology Progress Note ---
Assessment/Plan Assessment/Plan COPD, congestive heart failure, atrial fibrillation sinus tachy agitation right lung collapse? anemia intubeted chest pt dvt ppx all trop neg cr is stable hgb trending down is npo off ivf was restarted on iv diuretic last nite for chf will keep on dry side to help wean communicated with dr vicente last nite / this am is more awake on the vent not able to wean yet Subjective ROS Limited/Unobtainable: Yes Cardiovascular: Denies: chest pain Respiratory: Denies: shortness of breath Gastrointestinal/Abdominal: Denies: abdominal pain Genitourinary: Denies: burning Subjective on a vent in the icu no family at bedside p respond with head gestures Objective Last 24 Hour Vital Signs Date Time Temp Pulse Resp B/P (MAP) Pulse Ox O2 Delivery O2 Flow Rate FiO2 06/07/18 09:15 100 06/07/18 09:15 92 12 35 06/07/18 09:00 92 12 107/52 (70) 96 06/07/18 08:37 96 126/49 06/07/18 08:01 103 16 100 Mechanical Ventilator 35 06/07/18 08:00 106 21 126/49 (74) 96 06/07/18 08:00 99 06/07/18 08:00 Mechanical Ventilator 06/07/18 08:00 35 06/07/18 07:51 101 15 98 Mechanical Ventilator 35 06/07/18 07:15 104 17 35 06/07/18 07:13 107 43 35 06/07/18 07:08 103 22 35 06/07/18 07:00 100.0 108 26 104/85 (91) 99 06/07/18 06:00 88 12 117/47 (70) 100 06/07/18 05:12 106 15 35 06/07/18 05:00 90 12 169/113 (131) 100 06/07/18 04:00 35 06/07/18 04:00 Mechanical Ventilator 06/07/18 04:00 85 06/07/18 04:00 98.0 85 12 136/50 (78) 100 06/07/18 03:00 88 12 117/95 (102) 100 06/07/18 02:54 92 12 35 06/07/18 02:00 95 12 134/72 (92) 100 06/07/18 01:35 Mechanical Ventilator 35 06/07/18 01:35 122 21 Mechanical Ventilator 35 06/07/18 01:35 122 21 35 06/07/18 01:35 Mechanical Ventilator 35 06/07/18 01:00 88 12 117/40 (65) 100 06/07/18 00:00 Mechanical Ventilator 06/07/18 00:00 35 06/07/18 00:00 91 06/07/18 00:00 98.0 88 12 107/45 (65) 100 06/07/18 00:00 35 06/06/18 23:02 98 21 35 06/06/18 23:00 88 12 120/45 (70) 100 06/06/18 22:00 93 15 118/46 (70) 100 06/06/18 21:06 92 12 35 06/06/18 21:00 97.8 97 14 112/45 (67) 97 06/06/18 20:21 99 15 98 Mechanical Ventilator 35 06/06/18 20:11 92 13 96 Mechanical Ventilator 35 06/06/18 20:11 92 13 35 06/06/18 20:00 88 12 107/45 (65) 100 06/06/18 20:00 Mechanical Ventilator 06/06/18 20:00 35 06/06/18 20:00 98 06/06/18 19:00 93 12 112/48 (69) 100 06/06/18 18:37 95 110/60 06/06/18 18:00 88 12 109/45 (66) 100 06/06/18 17:17 98 14 35 06/06/18 17:00 95 12 134/53 (80) 100 06/06/18 16:00 Mechanical Ventilator 06/06/18 16:00 98.9 98 12 130/60 (83) 100 06/06/18 16:00 98 06/06/18 16:00 35 06/06/18 15:05 95 17 35 06/06/18 15:00 99 12 133/55 (81) 100 06/06/18 14:11 102 13 94 Mechanical Ventilator 35 06/06/18 14:03 110 15 95 Mechanical Ventilator 35 06/06/18 14:00 98 12 105/55 (72) 100 06/06/18 13:12 85 12 35 06/06/18 13:00 100 12 98/55 (69) 100 06/06/18 12:00 87 06/06/18 12:00 98.7 85 12 106/44 (64) 97 06/06/18 12:00 35 06/06/18 12:00 Mechanical Ventilator 06/06/18 11:29 86 17 35 06/06/18 11:29 99 General Appearance: no apparent distress, alert, on vent, patient on isolation Neck: supple Cardiovascular: normal rate Respiratory/Chest: lungs clear - ant Abdomen: normal bowel sounds, non tender, soft Extremities: no swelling Intake and Output 06/06/18 06/07/18 19:00 07:00 Intake Total 910.546 ml 540 ml Output Total 380 ml 820 ml Balance 530.546 ml -280 ml Free Water 120 ml IV Total 250.546 ml Tube Feeding 540 ml 540 ml Output Urine Total 380 ml 820 ml # Bowel Movements 2 Laboratory Tests Test 06/07/18 04:00 06/07/18 04:25 06/07/18 09:37 Stool Occult Blood Negative (NEGATIVE) White Blood Count 12.9 K/UL (4.8-10.8) H Red Blood Count 3.89 M/UL (4.20-5.40) L Hemoglobin 8.4 G/DL (12.0-16.0) L Hematocrit 27.0 % (37.0-47.0) L Mean Corpuscular Volume 69 FL (80-99) L Mean Corpuscular Hemoglobin 21.6 PG (27.0-31.0) L Mean Corpuscular Hemoglobin Concent 31.1 G/DL (32.0-36.0) L Red Cell Distribution Width 14.6 % (11.6-14.8) Platelet Count 239 K/UL (150-450) Mean Platelet Volume 7.4 FL (6.5-10.1) Neutrophils (%) (Auto) 77.4 % (45.0-75.0) H Lymphocytes (%) (Auto) 14.0 % (20.0-45.0) L Monocytes (%) (Auto) 6.0 % (1.0-10.0) Eosinophils (%) (Auto) 1.9 % (0.0-3.0) Basophils (%) (Auto) 0.7 % (0.0-2.0) Sodium Level 142 MMOL/L (136-145) Potassium Level 4.8 MMOL/L (3.5-5.1) Chloride Level 103 MMOL/L (98-107) Carbon Dioxide Level 35 MMOL/L (21-32) H Anion Gap 4 mmol/L (5-15) L Blood Urea Nitrogen 40 mg/dL (7-18) H Creatinine 1.5 MG/DL (0.55-1.30) H Estimat Glomerular Filtration Rate mL/min (>60) Glucose Level 104 MG/DL (74-106) Calcium Level 8.6 MG/DL (8.5-10.1) Phosphorus Level 4.1 MG/DL (2.5-4.9) Magnesium Level 2.5 MG/DL (1.8-2.4) H Total Bilirubin 0.2 MG/DL (0.2-1.0) Aspartate Amino Transf (AST/SGOT) 19 U/L (15-37) Alanine Aminotransferase (ALT/SGPT) 17 U/L (12-78) Alkaline Phosphatase 70 U/L (46-116) Total Protein 6.1 G/DL (6.4-8.2) L Albumin 2.2 G/DL (3.4-5.0) L Globulin 3.9 g/dL Albumin/Globulin Ratio 0.6 (1.0-2.7) L Arterial Blood pH 7.478 (7.350-7.450) Arterial Blood Partial Pressure CO2 55.3 mmHg (35.0-45.0) *H Arterial Blood Partial Pressure O2 77.8 mmHg (75.0-100.0) Arterial Blood HCO3 40.1 mmol/L (22.0-26.0) *H Arterial Blood Oxygen Saturation 95.6 % (95-100) Arterial Blood Base Excess 14.7 (-2-2) *H David Test Positive Microbiology Date/Time Source Procedure Growth Status 06/05/18 11:25 Blood Blood Culture - Preliminary NO GROWTH AFTER 24 HOURS Resulted 06/05/18 11:10 Blood Blood Culture - Preliminary NO GROWTH AFTER 24 HOURS Resulted Geoffrey Sandhu MD Jun 07, 2018 11:29
--- NOTE | 2018-06-07 12:00 | NUR ---
NURSE NOTES: Patient calm, asleep. Bilateral soft wrist restraints in place, patient impulsive. No acute respiratory distress. Will continue to monitor.
--- NOTE | 2018-06-07 12:15 | General Progress Note ---
Assessment/Plan Problem List: (1) encephalopathy due to toxin (2) Dementia ICD Codes: F03.90 - Unspecified dementia without behavioral disturbance SNOMED: 36558631 Assessment/Plan dcseroquel 12.5mg po bid seroquel 25mg q 6hr prn cont restraints. haldol im Subjective Allergies: Coded Allergies: Mushroom (Verified Allergy, Severe, 05/28/18) MORPHINE (Unverified Allergy, Intermediate, Itching, 01/04/15) PENICILLINS (Unverified Allergy, Intermediate, Hives, 01/04/15) CELECOXIB (Verified Allergy, Mild, 01/15/09) Subjective the pt is the same agitated at times waxing and waning of consciousness confused Objective Last 24 Hour Vital Signs Date Time Temp Pulse Resp B/P (MAP) Pulse Ox O2 Delivery O2 Flow Rate FiO2 06/07/18 11:29 92 12 35 06/07/18 11:00 98.1 90 12 121/49 (73) 98 06/07/18 10:00 94 15 117/57 (77) 97 06/07/18 09:15 100 06/07/18 09:15 92 12 35 06/07/18 09:00 92 12 107/52 (70) 96 06/07/18 08:37 96 126/49 06/07/18 08:01 103 16 100 Mechanical Ventilator 35 06/07/18 08:00 106 21 126/49 (74) 96 06/07/18 08:00 99 06/07/18 08:00 Mechanical Ventilator 06/07/18 08:00 35 06/07/18 07:51 101 15 98 Mechanical Ventilator 35 06/07/18 07:15 104 17 35 06/07/18 07:13 107 43 35 06/07/18 07:08 103 22 35 06/07/18 07:00 100.0 108 26 104/85 (91) 99 06/07/18 06:00 88 12 117/47 (70) 100 06/07/18 05:12 106 15 35 06/07/18 05:00 90 12 169/113 (131) 100 06/07/18 04:00 35 06/07/18 04:00 Mechanical Ventilator 06/07/18 04:00 85 06/07/18 04:00 98.0 85 12 136/50 (78) 100 06/07/18 03:00 88 12 117/95 (102) 100 06/07/18 02:54 92 12 35 06/07/18 02:00 95 12 134/72 (92) 100 06/07/18 01:35 Mechanical Ventilator 35 06/07/18 01:35 122 21 Mechanical Ventilator 35 06/07/18 01:35 122 21 35 06/07/18 01:35 Mechanical Ventilator 35 06/07/18 01:00 88 12 117/40 (65) 100 06/07/18 00:00 Mechanical Ventilator 06/07/18 00:00 35 06/07/18 00:00 91 06/07/18 00:00 98.0 88 12 107/45 (65) 100 06/07/18 00:00 35 06/06/18 23:02 98 21 35 06/06/18 23:00 88 12 120/45 (70) 100 06/06/18 22:00 93 15 118/46 (70) 100 06/06/18 21:06 92 12 35 06/06/18 21:00 97.8 97 14 112/45 (67) 97 06/06/18 20:21 99 15 98 Mechanical Ventilator 35 06/06/18 20:11 92 13 96 Mechanical Ventilator 35 06/06/18 20:11 92 13 35 06/06/18 20:00 88 12 107/45 (65) 100 06/06/18 20:00 Mechanical Ventilator 06/06/18 20:00 35 06/06/18 20:00 98 06/06/18 19:00 93 12 112/48 (69) 100 06/06/18 18:37 95 110/60 06/06/18 18:00 88 12 109/45 (66) 100 06/06/18 17:17 98 14 35 06/06/18 17:00 95 12 134/53 (80) 100 06/06/18 16:00 Mechanical Ventilator 06/06/18 16:00 98.9 98 12 130/60 (83) 100 06/06/18 16:00 98 06/06/18 16:00 35 06/06/18 15:05 95 17 35 06/06/18 15:00 99 12 133/55 (81) 100 06/06/18 14:11 102 13 94 Mechanical Ventilator 35 06/06/18 14:03 110 15 95 Mechanical Ventilator 35 06/06/18 14:00 98 12 105/55 (72) 100 06/06/18 13:12 85 12 35 06/06/18 13:00 100 12 98/55 (69) 100 Intake and Output 06/06/18 06/07/18 19:00 07:00 Intake Total 910.546 ml 540 ml Output Total 380 ml 820 ml Balance 530.546 ml -280 ml Free Water 120 ml IV Total 250.546 ml Tube Feeding 540 ml 540 ml Output Urine Total 380 ml 820 ml # Bowel Movements 2 Laboratory Tests 06/07/18 04:00: Stool Occult Blood Negative 06/07/18 04:25: White Blood Count 12.9H, Red Blood Count 3.89L, Hemoglobin 8.4L, Hematocrit 27.0L, Mean Corpuscular Volume 69L, Mean Corpuscular Hemoglobin 21.6L, Mean Corpuscular Hemoglobin Concent 31.1L, Red Cell Distribution Width 14.6, Platelet Count 239, Mean Platelet Volume 7.4, Neutrophils (%) (Auto) 77.4H, Lymphocytes (%) (Auto) 14.0L, Monocytes (%) (Auto) 6.0, Eosinophils (%) (Auto) 1.9, Basophils (%) (Auto) 0.7, Sodium Level 142, Potassium Level 4.8, Chloride Level 103, Carbon Dioxide Level 35H, Anion Gap 4L, Blood Urea Nitrogen 40H, Creatinine 1.5H, Estimat Glomerular Filtration Rate , Glucose Level 104, Calcium Level 8.6, Phosphorus Level 4.1, Magnesium Level 2.5H, Total Bilirubin 0.2, Aspartate Amino Transf (AST/SGOT) 19, Alanine Aminotransferase (ALT/SGPT) 17, Alkaline Phosphatase 70, Total Protein 6.1L, Albumin 2.2L, Globulin 3.9, Albumin/Globulin Ratio 0.6L 06/07/18 09:37: Arterial Blood pH 7.478H, Arterial Blood Partial Pressure CO2 55.3*H, Arterial Blood Partial Pressure O2 77.8, Arterial Blood HCO3 40.1*H, Arterial Blood Oxygen Saturation 95.6, Arterial Blood Base Excess 14.7*H, David Test Positive 06/07/18 11:50: Vancomycin Level Trough [Pending] Height (Feet): 5 Height (Inches): 4.00 Weight (Pounds): 118 General Appearance: alert, confused, agitated Liz Lo MD Jun 07, 2018 12:15
--- NOTE | 2018-06-07 12:30 | Diagnostic Imaging Report ---
Indication: Dyspnea Comparison: 06/06/2018 A single view chest radiograph was obtained. Findings: Interstitial opacities and prominent vascularity demonstrated. Hazy right basilar opacity may be a pleural effusion. Cardiomegaly is noted. Endotracheal tube is just above the genet. Right subclavian line noted in good position. IMPRESSION: CHF. Probable right pleural effusion
--- NOTE | 2018-06-07 12:41 | Nephrology Progress Note ---
Assessment/Plan Problem List: (1) Urinary outflow obstruction Assessment: resolved after grewal (2) Acute respiratory failure (3) Dementia (4) Afib Assessment Urinary out let obstruction, relieved after grewal Normal serum Cr Anemia, Low MCV High Ca corrected for low ALbumin other conditions: (1) Acute respiratory failure (2) Aspiration pneumonia (3) Acute encephalopathy (4) Pleural effusion (5) COPD (chronic obstructive pulmonary disease) (6) CAD (coronary artery disease) (7) Dementia Plan phos IV vent management K and Phos and Mag as needed slow Hydrate Anemia porter Adjust BP meds fu Lytes Gastric support pulm support- not tolerating bipap consider tube feeding ( PEG) as po is POOR Subjective ROS Limited/Unobtainable: Yes Objective Objective Last 24 Hour Vital Signs Date Time Temp Pulse Resp B/P (MAP) Pulse Ox O2 Delivery O2 Flow Rate FiO2 06/07/18 12:00 89 13 127/51 (76) 98 06/07/18 12:00 35 06/07/18 12:00 Mechanical Ventilator 06/07/18 12:00 87 06/07/18 11:29 92 12 35 06/07/18 11:00 98.1 90 12 121/49 (73) 98 06/07/18 10:00 94 15 117/57 (77) 97 06/07/18 09:15 100 06/07/18 09:15 92 12 35 06/07/18 09:00 92 12 107/52 (70) 96 06/07/18 08:37 96 126/49 06/07/18 08:01 103 16 100 Mechanical Ventilator 35 06/07/18 08:00 106 21 126/49 (74) 96 06/07/18 08:00 99 06/07/18 08:00 Mechanical Ventilator 06/07/18 08:00 35 06/07/18 07:51 101 15 98 Mechanical Ventilator 35 06/07/18 07:15 104 17 35 06/07/18 07:13 107 43 35 06/07/18 07:08 103 22 35 06/07/18 07:00 100.0 108 26 104/85 (91) 99 06/07/18 06:00 88 12 117/47 (70) 100 06/07/18 05:12 106 15 35 06/07/18 05:00 90 12 169/113 (131) 100 06/07/18 04:00 35 06/07/18 04:00 Mechanical Ventilator 06/07/18 04:00 85 06/07/18 04:00 98.0 85 12 136/50 (78) 100 06/07/18 03:00 88 12 117/95 (102) 100 06/07/18 02:54 92 12 35 06/07/18 02:00 95 12 134/72 (92) 100 06/07/18 01:35 Mechanical Ventilator 35 06/07/18 01:35 122 21 Mechanical Ventilator 35 06/07/18 01:35 122 21 35 06/07/18 01:35 Mechanical Ventilator 35 06/07/18 01:00 88 12 117/40 (65) 100 06/07/18 00:00 Mechanical Ventilator 06/07/18 00:00 35 06/07/18 00:00 91 06/07/18 00:00 98.0 88 12 107/45 (65) 100 06/07/18 00:00 35 06/06/18 23:02 98 21 35 06/06/18 23:00 88 12 120/45 (70) 100 06/06/18 22:00 93 15 118/46 (70) 100 06/06/18 21:06 92 12 35 06/06/18 21:00 97.8 97 14 112/45 (67) 97 06/06/18 20:21 99 15 98 Mechanical Ventilator 35 06/06/18 20:11 92 13 96 Mechanical Ventilator 35 06/06/18 20:11 92 13 35 06/06/18 20:00 88 12 107/45 (65) 100 06/06/18 20:00 Mechanical Ventilator 06/06/18 20:00 35 06/06/18 20:00 98 06/06/18 19:00 93 12 112/48 (69) 100 06/06/18 18:37 95 110/60 06/06/18 18:00 88 12 109/45 (66) 100 06/06/18 17:17 98 14 35 06/06/18 17:00 95 12 134/53 (80) 100 06/06/18 16:00 Mechanical Ventilator 06/06/18 16:00 98.9 98 12 130/60 (83) 100 06/06/18 16:00 98 06/06/18 16:00 35 06/06/18 15:05 95 17 35 06/06/18 15:00 99 12 133/55 (81) 100 06/06/18 14:11 102 13 94 Mechanical Ventilator 35 06/06/18 14:03 110 15 95 Mechanical Ventilator 35 06/06/18 14:00 98 12 105/55 (72) 100 06/06/18 13:12 85 12 35 06/06/18 13:00 100 12 98/55 (69) 100 Intake and Output 06/06/18 06/07/18 19:00 07:00 Intake Total 910.546 ml 540 ml Output Total 380 ml 820 ml Balance 530.546 ml -280 ml Free Water 120 ml IV Total 250.546 ml Tube Feeding 540 ml 540 ml Output Urine Total 380 ml 820 ml # Bowel Movements 2 Laboratory Tests 06/07/18 04:00: Stool Occult Blood Negative 06/07/18 04:25: White Blood Count 12.9H, Red Blood Count 3.89L, Hemoglobin 8.4L, Hematocrit 27.0L, Mean Corpuscular Volume 69L, Mean Corpuscular Hemoglobin 21.6L, Mean Corpuscular Hemoglobin Concent 31.1L, Red Cell Distribution Width 14.6, Platelet Count 239, Mean Platelet Volume 7.4, Neutrophils (%) (Auto) 77.4H, Lymphocytes (%) (Auto) 14.0L, Monocytes (%) (Auto) 6.0, Eosinophils (%) (Auto) 1.9, Basophils (%) (Auto) 0.7, Sodium Level 142, Potassium Level 4.8, Chloride Level 103, Carbon Dioxide Level 35H, Anion Gap 4L, Blood Urea Nitrogen 40H, Creatinine 1.5H, Estimat Glomerular Filtration Rate , Glucose Level 104, Calcium Level 8.6, Phosphorus Level 4.1, Magnesium Level 2.5H, Total Bilirubin 0.2, Aspartate Amino Transf (AST/SGOT) 19, Alanine Aminotransferase (ALT/SGPT) 17, Alkaline Phosphatase 70, Total Protein 6.1L, Albumin 2.2L, Globulin 3.9, Albumin/Globulin Ratio 0.6L 06/07/18 09:37: Arterial Blood pH 7.478H, Arterial Blood Partial Pressure CO2 55.3*H, Arterial Blood Partial Pressure O2 77.8, Arterial Blood HCO3 40.1*H, Arterial Blood Oxygen Saturation 95.6, Arterial Blood Base Excess 14.7*H, David Test Positive 06/07/18 11:50: Vancomycin Level Trough [Pending] Height (Feet): 5 Height (Inches): 4.00 Weight (Pounds): 118 General Appearance: no apparent distress EENT: other - vented Cardiovascular: tachycardia Respiratory/Chest: decreased breath sounds Abdomen: distended Kendrick Jimenez MD Jun 07, 2018 12:41
[2018-06-07] MEDS ORDERED: Tubing IV Secondary IV ONE (12:45)
--- NOTE | 2018-06-07 13:20 | NUR ---
NURSE NOTES: Blood transfusion ended, Vital signs taken: BP-118/53, VT-92, T- 98.2, no reactions noted pos transfusion. Will continue to monitor.
[2018-06-07] MEDS: Vancomycin 750mg/NS 275ml IVPB SCH ×2 (15:25)
--- NOTE | 2018-06-07 16:00 | NUR ---
NURSE NOTES: Patient feeling restless, PRN Tylenol given, repositioned, partial linens changed, no BM noted. Sacral dressing changed. Oral care provided. Tracheal and oral suctioning provided. No acute distress. Will continue to monitor.
--- NOTE | 2018-06-07 16:10 | GI Progress Note ---
Assessment/Plan Problems: (1) Severe malnutrition ICD Codes: E43 - Unspecified severe protein-calorie malnutrition SNOMED: 43367070 (2) Dementia ICD Codes: F03.90 - Unspecified dementia without behavioral disturbance SNOMED: 03245526 (3) Confused ICD Codes: R41.0 - Disorientation, unspecified SNOMED: 211064020 (4) Encounter for PEG (percutaneous endoscopic gastrostomy) ICD Codes: Z43.1 - Encounter for attention to gastrostomy SNOMED: 496667067, 266286876 (5) Failure to thrive SNOMED: 10004483 (6) Acute encephalopathy ICD Codes: G93.40 - Encephalopathy, unspecified SNOMED: 4821626 Status: unchanged Status Narrative Discussed with Dr. Acevedo. Assessment/Plan Assessment - Resp failure - NGT dependent - COPD - CHF - PNA - Anemia - Poor prognosis -No plans for tracheostomy as of yet Recommendations - NGT feeds, PEG if family agrees - Vent care - Elevated HOB - Monitor residuals - Abx - Pulmonary toilet -Follow labs The patient was seen and examined at bedside and all new and available data was reviewed in the patients chart. I agree with the above findings, impression and plan. (Patient seen earlier today. Signature stamp does not reflect patient encounter time.). - Jacobo Acevedo MD Subjective Subjective Limited Objective Last 24 Hour Vital Signs Date Time Temp Pulse Resp B/P (MAP) Pulse Ox O2 Delivery O2 Flow Rate FiO2 06/07/18 16:00 35 06/07/18 16:00 92 12 111/62 (78) 97 06/07/18 16:00 Mechanical Ventilator 06/07/18 15:00 100.3 108 21 159/51 (87) 96 06/07/18 14:40 102 14 35 06/07/18 14:00 91 12 115/50 (71) 98 06/07/18 13:06 97 13 35 06/07/18 13:03 89 13 100 Mechanical Ventilator 35 06/07/18 13:00 91 13 134/61 (85) 98 06/07/18 12:53 95 13 97 Mechanical Ventilator 35 06/07/18 12:00 89 13 127/51 (76) 98 06/07/18 12:00 35 06/07/18 12:00 Mechanical Ventilator 06/07/18 12:00 87 06/07/18 11:29 92 12 35 06/07/18 11:00 98.1 90 12 121/49 (73) 98 06/07/18 10:00 94 15 117/57 (77) 97 06/07/18 09:15 100 06/07/18 09:15 92 12 35 06/07/18 09:00 92 12 107/52 (70) 96 06/07/18 08:37 96 126/49 06/07/18 08:01 103 16 100 Mechanical Ventilator 35 06/07/18 08:00 106 21 126/49 (74) 96 06/07/18 08:00 99 06/07/18 08:00 Mechanical Ventilator 06/07/18 08:00 35 06/07/18 07:51 101 15 98 Mechanical Ventilator 35 06/07/18 07:15 104 17 35 06/07/18 07:13 107 43 35 06/07/18 07:08 103 22 35 06/07/18 07:00 100.0 108 26 104/85 (91) 99 06/07/18 06:00 88 12 117/47 (70) 100 06/07/18 05:12 106 15 35 06/07/18 05:00 90 12 169/113 (131) 100 06/07/18 04:00 35 06/07/18 04:00 Mechanical Ventilator 06/07/18 04:00 85 06/07/18 04:00 98.0 85 12 136/50 (78) 100 06/07/18 03:00 88 12 117/95 (102) 100 06/07/18 02:54 92 12 35 06/07/18 02:00 95 12 134/72 (92) 100 06/07/18 01:35 Mechanical Ventilator 35 06/07/18 01:35 122 21 Mechanical Ventilator 35 06/07/18 01:35 122 21 35 06/07/18 01:35 Mechanical Ventilator 35 06/07/18 01:00 88 12 117/40 (65) 100 06/07/18 00:00 Mechanical Ventilator 06/07/18 00:00 35 06/07/18 00:00 91 06/07/18 00:00 98.0 88 12 107/45 (65) 100 06/07/18 00:00 35 06/06/18 23:02 98 21 35 06/06/18 23:00 88 12 120/45 (70) 100 06/06/18 22:00 93 15 118/46 (70) 100 06/06/18 21:06 92 12 35 06/06/18 21:00 97.8 97 14 112/45 (67) 97 06/06/18 20:21 99 15 98 Mechanical Ventilator 35 06/06/18 20:11 92 13 96 Mechanical Ventilator 35 06/06/18 20:11 92 13 35 06/06/18 20:00 88 12 107/45 (65) 100 06/06/18 20:00 Mechanical Ventilator 06/06/18 20:00 35 06/06/18 20:00 98 06/06/18 19:00 93 12 112/48 (69) 100 06/06/18 18:37 95 110/60 06/06/18 18:00 88 12 109/45 (66) 100 06/06/18 17:17 98 14 35 06/06/18 17:00 95 12 134/53 (80) 100 Intake and Output 06/06/18 06/07/18 19:00 07:00 Intake Total 910.546 ml 540 ml Output Total 380 ml 820 ml Balance 530.546 ml -280 ml Free Water 120 ml IV Total 250.546 ml Tube Feeding 540 ml 540 ml Output Urine Total 380 ml 820 ml # Bowel Movements 2 Laboratory Tests Test 06/07/18 04:00 06/07/18 04:25 06/07/18 09:37 06/07/18 11:50 Stool Occult Blood Negative (NEGATIVE) White Blood Count 12.9 K/UL (4.8-10.8) H Red Blood Count 3.89 M/UL (4.20-5.40) L Hemoglobin 8.4 G/DL (12.0-16.0) L Hematocrit 27.0 % (37.0-47.0) L Mean Corpuscular Volume 69 FL (80-99) L Mean Corpuscular Hemoglobin 21.6 PG (27.0-31.0) L Mean Corpuscular Hemoglobin Concent 31.1 G/DL (32.0-36.0) L Red Cell Distribution Width 14.6 % (11.6-14.8) Platelet Count 239 K/UL (150-450) Mean Platelet Volume 7.4 FL (6.5-10.1) Neutrophils (%) (Auto) 77.4 % (45.0-75.0) H Lymphocytes (%) (Auto) 14.0 % (20.0-45.0) L Monocytes (%) (Auto) 6.0 % (1.0-10.0) Eosinophils (%) (Auto) 1.9 % (0.0-3.0) Basophils (%) (Auto) 0.7 % (0.0-2.0) Sodium Level 142 MMOL/L (136-145) Potassium Level 4.8 MMOL/L (3.5-5.1) Chloride Level 103 MMOL/L (98-107) Carbon Dioxide Level 35 MMOL/L (21-32) H Anion Gap 4 mmol/L (5-15) L Blood Urea Nitrogen 40 mg/dL (7-18) H Creatinine 1.5 MG/DL (0.55-1.30) H Estimat Glomerular Filtration Rate mL/min (>60) Glucose Level 104 MG/DL (74-106) Calcium Level 8.6 MG/DL (8.5-10.1) Phosphorus Level 4.1 MG/DL (2.5-4.9) Magnesium Level 2.5 MG/DL (1.8-2.4) H Total Bilirubin 0.2 MG/DL (0.2-1.0) Aspartate Amino Transf (AST/SGOT) 19 U/L (15-37) Alanine Aminotransferase (ALT/SGPT) 17 U/L (12-78) Alkaline Phosphatase 70 U/L (46-116) Total Protein 6.1 G/DL (6.4-8.2) L Albumin 2.2 G/DL (3.4-5.0) L Globulin 3.9 g/dL Albumin/Globulin Ratio 0.6 (1.0-2.7) L Arterial Blood pH 7.478 (7.350-7.450) Arterial Blood Partial Pressure CO2 55.3 mmHg (35.0-45.0) *H Arterial Blood Partial Pressure O2 77.8 mmHg (75.0-100.0) Arterial Blood HCO3 40.1 mmol/L (22.0-26.0) *H Arterial Blood Oxygen Saturation 95.6 % (95-100) Arterial Blood Base Excess 14.7 (-2-2) *H David Test Positive Vancomycin Level Trough 21.3 ug/mL (5.0-12.0) H Height (Feet): 5 Height (Inches): 4.00 Weight (Pounds): 118 General Appearance: WD/WN, no apparent distress, alert Cardiovascular: normal rate Respiratory/Chest: normal breath sounds, no respiratory distress Abdominal Exam: normal bowel sounds, non tender, soft, other - NGT Extremities: non-tender Alber Rodriguez NP Jun 07, 2018 16:10
--- NOTE | 2018-06-07 19:23 | NUR ---
HAND-OFF: Report given to MARGY Henderson.
--- NOTE | 2018-06-07 19:30 | NUR ---
NURSE NOTES:Received pt with eyes close but easily arousable to tactile stimulation. Orally intubated on ac mode. Bilateral soft wrist restraints on for safety to avoid self extubation. SR on the monitor. Bp stable afebrile. Rt arm swollen, elevated with pillows. PICC line MILY with iv at TKO rate. Will continue to monitor.
[2018-06-07] MEDS: Dyna-Hex 2% Top Sol 2oz TOPIC SCH (20:13)
[2018-06-07] MEDS: Miralax 17gm pkt ORAL SCH (20:59)
--- NOTE | 2018-06-07 23:54 | NUR ---
NURSE NOTES:Ps wa agitated and attempted to get up from bed- Ativan 2mg ivp was given.
[2018-06-08] VITALS (24 sets, daily range): BP systolic 101–140; BP diastolic 41–100
[2018-06-08] MEDS: Albuterol/Ipratropium 3ml neb HHN SCH ×4 (01:11→19:46)
--- NOTE | 2018-06-08 02:00 | NUR ---
NURSE NOTES:Calmed and resting well after ativan was given.
--- NOTE | 2018-06-08 04:00 | NUR ---
NURSE NOTES:No respiratory distress noted, vss
--- NOTE | 2018-06-08 05:00 | NUR ---
NURSE NOTES:Complete bath with bed changed done.
[2018-06-08 05:36] LABS: BASOPHILS % (AUTO) 0.6 % (0.0-2.0); EOSINOPHILS % (AUTO) 2.3 % (0.0-3.0); HEMATOCRIT 30.9 % (37.0-47.0); HEMOGLOBIN 9.6 G/DL (12.0-16.0); LYMPHOCYTES % (AUTO) 14.7 % (20.0-45.0); MEAN CORPUSCULAR VOLUME 72 FL (80-99); MONOCYTES % (AUTO) 5.9 % (1.0-10.0); NEUTROPHILS % (AUTO) 76.6 % (45.0-75.0); PLATELET COUNT 231 K/UL (150-450); RED CELL DISTRIBUTION WIDTH 17.5 % (11.6-14.8); WHITE BLOOD COUNT 13.3 K/UL (4.8-10.8)
[2018-06-08 06:38] LABS: ALANINE AMINOTRANSFERASE 25 U/L (12-78); ALBUMIN 2.3 G/DL (3.4-5.0); ALBUMIN/GLOBULIN RATIO 0.6 (1.0-2.7); ALKALINE PHOSPHATASE 83 U/L (46-116); ANION GAP 2 mmol/L (5-15); ASPARTATE AMINO TRANSFERASE 22 U/L (15-37); BILIRUBIN,TOTAL 0.3 MG/DL (0.2-1.0); BLOOD UREA NITROGEN 41 mg/dL (7-18); CALCIUM 9.3 MG/DL (8.5-10.1); CARBON DIOXIDE 40 MMOL/L (21-32); CHLORIDE 101 MMOL/L (98-107); CREATININE 1.6 MG/DL (0.55-1.30); PHOSPHORUS 3.8 MG/DL (2.5-4.9); SODIUM 143 MMOL/L (136-145)
--- NOTE | 2018-06-08 07:17 | NUR ---
RESPIRATORY NOTE: Received pt on AC 12, 500VT, 35%, PEEP +5. Pt intubated w/ ETT 7.5 @ 21cm lipline, secured by anchorfast. Pt is awake and alert but get agitated easily. Both hands on soft-restraints to prevent self-extubation. B/S brad. rhonchi/wheeze, sxn small amounts of thin ramirez secretions without incidents, breathing Tx given with no adverse reaction. No weaning at this time cause pt is riding the vent. Will try later when pt is more alert. RN Celi Calix made aware. Vent plugged into red outlet, ambubag at bedside, alarms are set and audible. Vent circuit and Sx tubbing secure and out of the way to prevent pt grabbing the tubbing. Pt is in no apparent distress at this time. Will continue to monitor pt.
--- NOTE | 2018-06-08 07:28 | NUR ---
HAND-OFF: Report given to Jaren Wu
--- NOTE | 2018-06-08 07:29 | NUR ---
NURSE NOTES: Report received from MARGY Moscoso. Pt is awake and oriented to name. Mainly Farsi speaking. On bilateral soft wrist restraints. Sinus rhythm on radiographer cardiac catheterization. ETT 7.5/ 21cm at level. AC 12, TV 500, FiO2 35%, P 5. O2 sat 100% No respiratory distress noted. Right NGT in place receiving Osmolite 1.5 at 45cc/hr. No residual noted. Sinclair in place draining to gravity. Right UA PICC patent and asymptomatic. Bed in lowest position. Side rails up x3. Will resume plan of care.
--- NOTE | 2018-06-08 08:58 | NUR ---
RADIOLOGY DEPT CHEST X-RAY DONE.-P.DYE
--- NOTE | 2018-06-08 09:00 | NUR ---
RESPIRATORY NOTE: Started pt on CPAP- 10- 35%FiO2- peep of 5. Pt's awake, alert. pt didn't tolerating well the CPAP, shallow /tachypneic RR> 30 bpm, low Vt < 250ml, and HR started to increase from 95 to 105 bpm, pt started getting agitated, grabbing tubbing and tried to sit up. Put pt back on AC mode, pt calm, breathing back to normal, vent circiuts and sxn tubbing secured and out of the way. RN Celi Calix made aware. Will continue to monitor.
[2018-06-08] MEDS: Amiodarone 200mg tab ORAL SCH (09:07)
[2018-06-08] MEDS: Cefepime HCl 1 GM in D5W 55 ML IV SCH (09:07)
[2018-06-08] MEDS: Pantoprazole Inj IV SCH (09:07)
[2018-06-08] MEDS: Heparin 5000 units/ml inj SUBQ SCH ×2 (09:09→21:16)
--- NOTE | 2018-06-08 09:17 | NUR ---
NURSE NOTES: Weaning unable to be done by RT. PRN Seroquel given for agitation and restlessness. Turned and repositioned pt. Will continue to monitor.
--- NOTE | 2018-06-08 10:07 | Pulmonolgy Critical Care Note ---
Critical Care - Asmt/Plan Problems: (1) Acute respiratory failure (2) Aspiration pneumonia (3) Acute encephalopathy (4) Pleural effusion (5) COPD (chronic obstructive pulmonary disease) (6) CAD (coronary artery disease) (7) Dementia Respiratory: monitor respiratory rate, adjust FIO2, CXR Cardiac: continue to monitor HR/BP Renal: F/U I&O, keep IV fluid, check electrolytes Infectious Disease: check cultures Gastrointestinal: continue feedings/current rate Endocrine: monitor blood sugar Hematologic: transfuse if hgb<8.5 Neurologic: PRN Ativan, keep patient comfortable Affect: PRN ativan Prophylaxis: Heparin Time Spent (Minutes): 40 Notes Reviewed: physical therapist clinic director, cardio, renal Discussed with: nurses, consultants, patient case coordinatorbusiness affairs manager - Objective Last 24 Hour Vital Signs Date Time Temp Pulse Resp B/P (MAP) Pulse Ox O2 Delivery O2 Flow Rate FiO2 06/08/18 09:07 98 131/59 06/08/18 08:59 101 24 35 06/08/18 08:59 100 06/08/18 08:53 104 31 35 06/08/18 08:49 95 19 35 06/08/18 08:00 98.1 94 15 134/51 (78) 97 06/08/18 08:00 Mechanical Ventilator 06/08/18 08:00 35 06/08/18 07:18 80 12 35 06/08/18 07:17 80 12 100 Mechanical Ventilator 35 06/08/18 07:07 80 12 100 Mechanical Ventilator 35 06/08/18 07:00 75 12 117/54 (75) 99 06/08/18 06:00 92 16 112/44 (66) 100 06/08/18 05:06 77 12 35 06/08/18 05:00 79 16 124/52 (76) 100 06/08/18 04:00 Mechanical Ventilator 06/08/18 04:00 81 06/08/18 04:00 35 06/08/18 04:00 99.2 80 16 120/60 (80) 100 06/08/18 03:26 82 12 35 06/08/18 03:00 83 14 110/70 (83) 100 06/08/18 02:00 86 16 107/70 (82) 100 06/08/18 01:27 93 19 99 Mechanical Ventilator 35 06/08/18 01:14 97 16 100 Mechanical Ventilator 35 06/08/18 01:11 88 12 35 06/08/18 01:00 91 16 117/51 (73) 100 06/08/18 00:00 99.0 97 17 140/62 (88) 97 06/08/18 00:00 Mechanical Ventilator 06/08/18 00:00 97 06/07/18 23:46 96 22 35 06/07/18 23:00 86 14 108/53 (71) 95 06/07/18 22:00 96 14 121/49 (73) 95 06/07/18 21:37 83 12 35 06/07/18 21:00 86 14 115/46 (69) 95 06/07/18 20:00 86 06/07/18 20:00 35 06/07/18 20:00 99.4 98 14 119/45 (69) 95 06/07/18 20:00 Mechanical Ventilator 06/07/18 19:54 82 12 99 Mechanical Ventilator 35 06/07/18 19:46 85 13 99 Mechanical Ventilator 35 06/07/18 19:41 82 12 35 06/07/18 18:15 84 139/56 06/07/18 18:00 98.6 98 14 116/88 (97) 97 06/07/18 17:00 94 14 95/75 (82) 97 06/07/18 16:40 91 15 35 06/07/18 16:00 35 06/07/18 16:00 92 12 111/62 (78) 97 06/07/18 16:00 Mechanical Ventilator 06/07/18 16:00 90 06/07/18 15:56 100.3 06/07/18 15:00 100.3 108 21 159/51 (87) 96 06/07/18 14:40 102 14 35 06/07/18 14:00 91 12 115/50 (71) 98 06/07/18 13:06 97 13 35 06/07/18 13:03 89 13 100 Mechanical Ventilator 35 06/07/18 13:00 91 13 134/61 (85) 98 06/07/18 12:53 95 13 97 Mechanical Ventilator 35 06/07/18 12:00 89 13 127/51 (76) 98 06/07/18 12:00 35 06/07/18 12:00 Mechanical Ventilator 06/07/18 12:00 87 06/07/18 11:29 92 12 35 06/07/18 11:00 98.1 90 12 121/49 (73) 98 Status: sedated Condition: critical HEENT: atraumatic, normocephalic Neck: full ROM Lungs: rales, rhonchi Heart: HR/BP stable Abdomen: soft Extremities: no C/C/E Micro: Microbiology Date/Time Source Procedure Growth Status 06/05/18 11:25 Blood Blood Culture - Preliminary NO GROWTH AFTER 48 HOURS Resulted 06/05/18 11:10 Blood Blood Culture - Preliminary NO GROWTH AFTER 48 HOURS Resulted Critical Care - Subjective ROS Limited/Unobtainable: Yes Condition: critical EKG Rhythm: Sinus Rhythm FI02: 35 Vent Support Breath Rate: 12 Vent Support Mode: AC Vent Tidal Volume: 500 Sputum Amount: None PEEP: 5.0 PIP: 28 Tube Feeding Amount: 45 I&O: Intake and Output 06/07/18 06/08/18 19:00 07:00 Intake Total 725 ml 585 ml Output Total 1225 ml 850 ml Balance -500 ml -265 ml Free Water 120 ml 90 ml IV Total 110 ml Tube Feeding 495 ml 495 ml Output Urine Total 1225 ml 850 ml CXR: right effusion, ET in good position ET-Tube: 7.5 ET Position: 21 Labs: Laboratory Tests Test 06/07/18 11:50 06/08/18 04:30 06/08/18 09:30 Vancomycin Level Trough 21.3 ug/mL (5.0-12.0) H White Blood Count 13.3 K/UL (4.8-10.8) H Red Blood Count 4.30 M/UL (4.20-5.40) Hemoglobin 9.6 G/DL (12.0-16.0) L Hematocrit 30.9 % (37.0-47.0) L Mean Corpuscular Volume 72 FL (80-99) L Mean Corpuscular Hemoglobin 22.5 PG (27.0-31.0) L Mean Corpuscular Hemoglobin Concent 31.2 G/DL (32.0-36.0) L Red Cell Distribution Width 17.5 % (11.6-14.8) H Platelet Count 231 K/UL (150-450) Mean Platelet Volume 7.1 FL (6.5-10.1) Neutrophils (%) (Auto) 76.6 % (45.0-75.0) H Lymphocytes (%) (Auto) 14.7 % (20.0-45.0) L Monocytes (%) (Auto) 5.9 % (1.0-10.0) Eosinophils (%) (Auto) 2.3 % (0.0-3.0) Basophils (%) (Auto) 0.6 % (0.0-2.0) Sodium Level 143 MMOL/L (136-145) Potassium Level 4.0 MMOL/L (3.5-5.1) Chloride Level 101 MMOL/L (98-107) Carbon Dioxide Level 40 MMOL/L (21-32) H Anion Gap 2 mmol/L (5-15) L Blood Urea Nitrogen 41 mg/dL (7-18) H Creatinine 1.6 MG/DL (0.55-1.30) H Estimat Glomerular Filtration Rate mL/min (>60) Glucose Level 129 MG/DL (74-106) H Calcium Level 9.3 MG/DL (8.5-10.1) Phosphorus Level 3.8 MG/DL (2.5-4.9) Magnesium Level 2.1 MG/DL (1.8-2.4) Total Bilirubin 0.3 MG/DL (0.2-1.0) Aspartate Amino Transf (AST/SGOT) 22 U/L (15-37) Alanine Aminotransferase (ALT/SGPT) 25 U/L (12-78) Alkaline Phosphatase 83 U/L (46-116) Total Protein 6.4 G/DL (6.4-8.2) Albumin 2.3 G/DL (3.4-5.0) L Globulin 4.1 g/dL Albumin/Globulin Ratio 0.6 (1.0-2.7) L Arterial Blood pH 7.547 (7.350-7.450) Arterial Blood Partial Pressure CO2 35.1 mmHg (35.0-45.0) Arterial Blood Partial Pressure O2 88.7 mmHg (75.0-100.0) Arterial Blood HCO3 29.8 mmol/L (22.0-26.0) H Arterial Blood Oxygen Saturation 96.4 % (95-100) Arterial Blood Base Excess 7.1 (-2-2) H David Test Positive Yuliet Mariee MD Jun 08, 2018 10:07
[2018-06-08] MEDS ORDERED: LORazepam Inj 2mg/ml 1ml IV PRN (11:00)
--- NOTE | 2018-06-08 11:08 | Nephrology Progress Note ---
Assessment/Plan Problem List: (1) Urinary outflow obstruction Assessment: resolved after grewal (2) Acute respiratory failure (3) Dementia (4) Afib Assessment Urinary out let obstruction, relieved after grewal Normal serum Cr Anemia, Low MCV High Ca corrected for low ALbumin other conditions: (1) Acute respiratory failure (2) Aspiration pneumonia (3) Acute encephalopathy (4) Pleural effusion (5) COPD (chronic obstructive pulmonary disease) (6) CAD (coronary artery disease) (7) Dementia Plan vent management K and Phos and Mag as needed slow Hydrate Anemia porter Adjust BP meds fu Lytes Gastric support pulm support- not tolerating bipap consider tube feeding ( PEG) as po is POOR Subjective ROS Limited/Unobtainable: Yes Objective Objective Last 24 Hour Vital Signs Date Time Temp Pulse Resp B/P (MAP) Pulse Ox O2 Delivery O2 Flow Rate FiO2 06/08/18 10:00 98 17 125/55 (78) 98 06/08/18 09:07 98 131/59 06/08/18 09:00 101 21 131/59 (83) 97 06/08/18 08:59 101 24 35 06/08/18 08:59 100 06/08/18 08:53 104 31 35 06/08/18 08:49 95 19 35 06/08/18 08:00 98.1 94 15 134/51 (78) 97 06/08/18 08:00 Mechanical Ventilator 06/08/18 08:00 35 06/08/18 07:18 80 12 35 06/08/18 07:17 80 12 100 Mechanical Ventilator 35 06/08/18 07:16 77 06/08/18 07:07 80 12 100 Mechanical Ventilator 35 06/08/18 07:00 75 12 117/54 (75) 99 06/08/18 06:00 92 16 112/44 (66) 100 06/08/18 05:06 77 12 35 06/08/18 05:00 79 16 124/52 (76) 100 06/08/18 04:00 Mechanical Ventilator 06/08/18 04:00 81 06/08/18 04:00 35 06/08/18 04:00 99.2 80 16 120/60 (80) 100 06/08/18 03:26 82 12 35 06/08/18 03:00 83 14 110/70 (83) 100 2/6/19 02:00 86 16 107/70 (82) 100 06/08/18 01:27 93 19 99 Mechanical Ventilator 35 06/08/18 01:14 97 16 100 Mechanical Ventilator 35 06/08/18 01:11 88 12 35 06/08/18 01:00 91 16 117/51 (73) 100 06/08/18 00:00 99.0 97 17 140/62 (88) 97 06/08/18 00:00 Mechanical Ventilator 06/08/18 00:00 97 06/07/18 23:46 96 22 35 06/07/18 23:00 86 14 108/53 (71) 95 06/07/18 22:00 96 14 121/49 (73) 95 06/07/18 21:37 83 12 35 06/07/18 21:00 86 14 115/46 (69) 95 06/07/18 20:00 86 06/07/18 20:00 35 06/07/18 20:00 99.4 98 14 119/45 (69) 95 06/07/18 20:00 Mechanical Ventilator 06/07/18 19:54 82 12 99 Mechanical Ventilator 35 06/07/18 19:46 85 13 99 Mechanical Ventilator 35 06/07/18 19:41 82 12 35 06/07/18 18:15 84 139/56 06/07/18 18:00 98.6 98 14 116/88 (97) 97 06/07/18 17:00 94 14 95/75 (82) 97 06/07/18 16:40 91 15 35 06/07/18 16:00 35 06/07/18 16:00 92 12 111/62 (78) 97 06/07/18 16:00 Mechanical Ventilator 06/07/18 16:00 90 06/07/18 15:56 100.3 06/07/18 15:00 100.3 108 21 159/51 (87) 96 06/07/18 14:40 102 14 35 06/07/18 14:00 91 12 115/50 (71) 98 06/07/18 13:06 97 13 35 06/07/18 13:03 89 13 100 Mechanical Ventilator 35 06/07/18 13:00 91 13 134/61 (85) 98 06/07/18 12:53 95 13 97 Mechanical Ventilator 35 06/07/18 12:00 89 13 127/51 (76) 98 06/07/18 12:00 35 06/07/18 12:00 Mechanical Ventilator 06/07/18 12:00 87 06/07/18 11:29 92 12 35 Intake and Output 06/07/18 06/08/18 19:00 07:00 Intake Total 725 ml 585 ml Output Total 1225 ml 850 ml Balance -500 ml -265 ml Free Water 120 ml 90 ml IV Total 110 ml Tube Feeding 495 ml 495 ml Output Urine Total 1225 ml 850 ml Laboratory Tests 06/07/18 11:50: Vancomycin Level Trough 21.3H 06/08/18 04:30: White Blood Count 13.3H, Red Blood Count 4.30, Hemoglobin 9.6L, Hematocrit 30.9L , Mean Corpuscular Volume 72L, Mean Corpuscular Hemoglobin 22.5L, Mean Corpuscular Hemoglobin Concent 31.2L, Red Cell Distribution Width 17.5H, Platelet Count 231, Mean Platelet Volume 7.1, Neutrophils (%) (Auto) 76.6H, Lymphocytes (%) (Auto) 14.7L, Monocytes (%) (Auto) 5.9, Eosinophils (%) (Auto) 2.3, Basophils (%) (Auto) 0.6, Sodium Level 143, Potassium Level 4.0, Chloride Level 101, Carbon Dioxide Level 40H, Anion Gap 2L, Blood Urea Nitrogen 41H, Creatinine 1.6H, Estimat Glomerular Filtration Rate , Glucose Level 129H, Calcium Level 9.3, Phosphorus Level 3.8, Magnesium Level 2.1, Total Bilirubin 0.3, Aspartate Amino Transf (AST/SGOT) 22, Alanine Aminotransferase (ALT/SGPT) 25, Alkaline Phosphatase 83, Total Protein 6.4, Albumin 2.3L, Globulin 4.1, Albumin/Globulin Ratio 0.6L 06/08/18 09:30: Arterial Blood pH 7.547H, Arterial Blood Partial Pressure CO2 35.1, Arterial Blood Partial Pressure O2 88.7, Arterial Blood HCO3 29.8H, Arterial Blood Oxygen Saturation 96.4, Arterial Blood Base Excess 7.1H, David Test Positive Height (Feet): 5 Height (Inches): 4.00 Weight (Pounds): 120 EENT: other - vented Cardiovascular: tachycardia Respiratory/Chest: decreased breath sounds Abdomen: soft Kendrick Jimenez MD Jun 08, 2018 11:08
--- NOTE | 2018-06-08 11:45 | NUR ---
NURSE NOTES: Pt appears to be more calm and is tolerating the current vent setting. O2 sat 100%. Son called and updated regarding that pt failed weaning this morning.
--- NOTE | 2018-06-08 12:07 | General Progress Note ---
Assessment/Plan Problem List: (1) encephalopathy due to toxin (2) Dementia ICD Codes: F03.90 - Unspecified dementia without behavioral disturbance SNOMED: 82189954 Assessment/Plan dc ativan seroquel 25mg q 6hr prn cont restraints. haldol im Subjective Neurologic/Psychiatric: Reports: anxiety Allergies: Coded Allergies: Mushroom (Verified Allergy, Severe, 05/28/18) MORPHINE (Unverified Allergy, Intermediate, Itching, 01/04/15) PENICILLINS (Unverified Allergy, Intermediate, Hives, 01/04/15) CELECOXIB (Verified Allergy, Mild, 01/15/09) Subjective the pt is calmer, per nurse and charge nurse Petra the seroquel calms her down but not sedating her the pt was getting ativan agitated at times waxing and waning of consciousness confused Objective Last 24 Hour Vital Signs Date Time Temp Pulse Resp B/P (MAP) Pulse Ox O2 Delivery O2 Flow Rate FiO2 06/08/18 11:20 85 12 35 06/08/18 11:00 82 12 107/47 (67) 97 06/08/18 10:00 98 17 125/55 (78) 98 06/08/18 09:07 98 131/59 06/08/18 09:00 101 21 131/59 (83) 97 06/08/18 08:59 101 24 35 06/08/18 08:59 100 06/08/18 08:53 104 31 35 06/08/18 08:49 95 19 35 06/08/18 08:00 98.1 94 15 134/51 (78) 97 06/08/18 08:00 Mechanical Ventilator 06/08/18 08:00 35 06/08/18 07:18 80 12 35 06/08/18 07:17 80 12 100 Mechanical Ventilator 35 06/08/18 07:16 77 06/08/18 07:07 80 12 100 Mechanical Ventilator 35 06/08/18 07:00 75 12 117/54 (75) 99 06/08/18 06:00 92 16 112/44 (66) 100 06/08/18 05:06 77 12 35 06/08/18 05:00 79 16 124/52 (76) 100 06/08/18 04:00 Mechanical Ventilator 06/08/18 04:00 81 06/08/18 04:00 35 06/08/18 04:00 99.2 80 16 120/60 (80) 100 06/08/18 03:26 82 12 35 06/08/18 03:00 83 14 110/70 (83) 100 06/08/18 02:00 86 16 107/70 (82) 100 06/08/18 01:27 93 19 99 Mechanical Ventilator 35 06/08/18 01:14 97 16 100 Mechanical Ventilator 35 06/08/18 01:11 88 12 35 06/08/18 01:00 91 16 117/51 (73) 100 06/08/18 00:00 99.0 97 17 140/62 (88) 97 06/08/18 00:00 Mechanical Ventilator 06/08/18 00:00 97 06/07/18 23:46 96 22 35 06/07/18 23:00 86 14 108/53 (71) 95 06/07/18 22:00 96 14 121/49 (73) 95 06/07/18 21:37 83 12 35 06/07/18 21:00 86 14 115/46 (69) 95 06/07/18 20:00 86 06/07/18 20:00 35 06/07/18 20:00 99.4 98 14 119/45 (69) 95 06/07/18 20:00 Mechanical Ventilator 06/07/18 19:54 82 12 99 Mechanical Ventilator 35 06/07/18 19:46 85 13 99 Mechanical Ventilator 35 06/07/18 19:41 82 12 35 06/07/18 18:15 84 139/56 06/07/18 18:00 98.6 98 14 116/88 (97) 97 06/07/18 17:00 94 14 95/75 (82) 97 06/07/18 16:40 91 15 35 06/07/18 16:00 35 06/07/18 16:00 92 12 111/62 (78) 97 06/07/18 16:00 Mechanical Ventilator 06/07/18 16:00 90 06/07/18 15:56 100.3 06/07/18 15:00 100.3 108 21 159/51 (87) 96 06/07/18 14:40 102 14 35 06/07/18 14:00 91 12 115/50 (71) 98 06/07/18 13:06 97 13 35 06/07/18 13:03 89 13 100 Mechanical Ventilator 35 06/07/18 13:00 91 13 134/61 (85) 98 06/07/18 12:53 95 13 97 Mechanical Ventilator 35 Intake and Output 06/07/18 06/08/18 19:00 07:00 Intake Total 725 ml 585 ml Output Total 1225 ml 850 ml Balance -500 ml -265 ml Free Water 120 ml 90 ml IV Total 110 ml Tube Feeding 495 ml 495 ml Output Urine Total 1225 ml 850 ml Laboratory Tests 06/08/18 04:30: White Blood Count 13.3H, Red Blood Count 4.30, Hemoglobin 9.6L, Hematocrit 30.9L , Mean Corpuscular Volume 72L, Mean Corpuscular Hemoglobin 22.5L, Mean Corpuscular Hemoglobin Concent 31.2L, Red Cell Distribution Width 17.5H, Platelet Count 231, Mean Platelet Volume 7.1, Neutrophils (%) (Auto) 76.6H, Lymphocytes (%) (Auto) 14.7L, Monocytes (%) (Auto) 5.9, Eosinophils (%) (Auto) 2.3, Basophils (%) (Auto) 0.6, Sodium Level 143, Potassium Level 4.0, Chloride Level 101, Carbon Dioxide Level 40H, Anion Gap 2L, Blood Urea Nitrogen 41H, Creatinine 1.6H, Estimat Glomerular Filtration Rate , Glucose Level 129H, Calcium Level 9.3, Phosphorus Level 3.8, Magnesium Level 2.1, Total Bilirubin 0.3, Aspartate Amino Transf (AST/SGOT) 22, Alanine Aminotransferase (ALT/SGPT) 25, Alkaline Phosphatase 83, Total Protein 6.4, Albumin 2.3L, Globulin 4.1, Albumin/Globulin Ratio 0.6L 06/08/18 09:30: Arterial Blood pH 7.547H, Arterial Blood Partial Pressure CO2 35.1, Arterial Blood Partial Pressure O2 88.7, Arterial Blood HCO3 29.8H, Arterial Blood Oxygen Saturation 96.4, Arterial Blood Base Excess 7.1H, David Test Positive Height (Feet): 5 Height (Inches): 4.00 Weight (Pounds): 120 General Appearance: lethargic - waxing and waning , confused, agitated Liz Lo MD Jun 08, 2018 12:07
--- NOTE | 2018-06-08 12:23 | NUR ---
NURSE NOTES: Right side chest U/S done at bedside. Turned and repositioned pt. Daughter and granddaughter at bedside.
--- NOTE | 2018-06-08 13:23 | Infectious Diseases Prog Note ---
Assessment/Plan Assessment/Plan 87 yo feamalex with PMHx of COPD, HTN, and A.fib sent to the ED from her nuring home for SOB. Sepsis - Likely PNA 05/28/18 CXR with atalectasis vs consolidation in the right side. 06/01/18 CXR - Extensive right hemithorax opacification UA (-) Sputum Cx 05/28/18 - MRSA (Inf Neg) Urine legionella (-) Positive blood Cx - Likely contaminant BCx 05/28/18 - CoNS BCX 05/30/18 - NGTD Leukocytosis 15 on admit - now resolved Febrile to 101.5 - now resolved COPD CAD A. fib PLAN - Continue Cefepime #12 and vancomycin #12 - Monitor CBC and Temps We will continue to follow Ms. Nowak during this hospitalization. Subjective Allergies: Coded Allergies: Mushroom (Verified Allergy, Severe, 05/28/18) MORPHINE (Unverified Allergy, Intermediate, Itching, 01/04/15) PENICILLINS (Unverified Allergy, Intermediate, Hives, 01/04/15) CELECOXIB (Verified Allergy, Mild, 01/15/09) Subjective Afebrile Mild Leukocytosis Objective Vital Signs Last 24 Hour Vital Signs Date Time Temp Pulse Resp B/P (MAP) Pulse Ox O2 Delivery O2 Flow Rate FiO2 06/08/18 13:00 86 13 137/68 (91) 99 06/08/18 12:58 88 12 95 Mechanical Ventilator 35 06/08/18 12:58 88 12 35 06/08/18 12:47 80 12 96 Mechanical Ventilator 35 06/08/18 12:00 98.5 81 12 140/100 (113) 96 06/08/18 12:00 35 06/08/18 12:00 Mechanical Ventilator 06/08/18 11:20 85 12 35 06/08/18 11:00 82 12 107/47 (67) 97 06/08/18 10:00 98 17 125/55 (78) 98 06/08/18 09:07 98 131/59 06/08/18 09:00 101 21 131/59 (83) 97 06/08/18 08:59 101 24 35 06/08/18 08:59 100 06/08/18 08:53 104 31 35 06/08/18 08:49 95 19 35 06/08/18 08:00 98.1 94 15 134/51 (78) 97 06/08/18 08:00 Mechanical Ventilator 06/08/18 08:00 35 06/08/18 07:18 80 12 35 06/08/18 07:17 80 12 100 Mechanical Ventilator 35 06/08/18 07:16 77 06/08/18 07:07 80 12 100 Mechanical Ventilator 35 06/08/18 07:00 75 12 117/54 (75) 99 06/08/18 06:00 92 16 112/44 (66) 100 06/08/18 05:06 77 12 35 06/08/18 05:00 79 16 124/52 (76) 100 06/08/18 04:00 Mechanical Ventilator 06/08/18 04:00 81 06/08/18 04:00 35 06/08/18 04:00 99.2 80 16 120/60 (80) 100 06/08/18 03:26 82 12 35 06/08/18 03:00 83 14 110/70 (83) 100 06/08/18 02:00 86 16 107/70 (82) 100 06/08/18 01:27 93 19 99 Mechanical Ventilator 35 06/08/18 01:14 97 16 100 Mechanical Ventilator 35 06/08/18 01:11 88 12 35 06/08/18 01:00 91 16 117/51 (73) 100 06/08/18 00:00 99.0 97 17 140/62 (88) 97 06/08/18 00:00 Mechanical Ventilator 06/08/18 00:00 97 06/07/18 23:46 96 22 35 06/07/18 23:00 86 14 108/53 (71) 95 06/07/18 22:00 96 14 121/49 (73) 95 06/07/18 21:37 83 12 35 06/07/18 21:00 86 14 115/46 (69) 95 06/07/18 20:00 86 06/07/18 20:00 35 06/07/18 20:00 99.4 98 14 119/45 (69) 95 06/07/18 20:00 Mechanical Ventilator 06/07/18 19:54 82 12 99 Mechanical Ventilator 35 06/07/18 19:46 85 13 99 Mechanical Ventilator 35 06/07/18 19:41 82 12 35 06/07/18 18:15 84 139/56 06/07/18 18:00 98.6 98 14 116/88 (97) 97 06/07/18 17:00 94 14 95/75 (82) 97 06/07/18 16:40 91 15 35 06/07/18 16:00 35 06/07/18 16:00 92 12 111/62 (78) 97 06/07/18 16:00 Mechanical Ventilator 06/07/18 16:00 90 06/07/18 15:56 100.3 06/07/18 15:00 100.3 108 21 159/51 (87) 96 06/07/18 14:40 102 14 35 06/07/18 14:00 91 12 115/50 (71) 98 Height (Feet): 5 Height (Inches): 4.00 Weight (Pounds): 120 Objective General: NAD, Intubated on Vent HEENT: normocephalic, atraumatic, DMM, EOMI Respiratory/Chest: Mild crakles B/L Cardiovascular/Chest: RRR, S1, S2 Abdomen: Soft, NT, ND, + BS Laboratory Tests Test 06/08/18 04:30 06/08/18 09:30 White Blood Count 13.3 K/UL (4.8-10.8) H Red Blood Count 4.30 M/UL (4.20-5.40) Hemoglobin 9.6 G/DL (12.0-16.0) L Hematocrit 30.9 % (37.0-47.0) L Mean Corpuscular Volume 72 FL (80-99) L Mean Corpuscular Hemoglobin 22.5 PG (27.0-31.0) L Mean Corpuscular Hemoglobin Concent 31.2 G/DL (32.0-36.0) L Red Cell Distribution Width 17.5 % (11.6-14.8) H Platelet Count 231 K/UL (150-450) Mean Platelet Volume 7.1 FL (6.5-10.1) Neutrophils (%) (Auto) 76.6 % (45.0-75.0) H Lymphocytes (%) (Auto) 14.7 % (20.0-45.0) L Monocytes (%) (Auto) 5.9 % (1.0-10.0) Eosinophils (%) (Auto) 2.3 % (0.0-3.0) Basophils (%) (Auto) 0.6 % (0.0-2.0) Sodium Level 143 MMOL/L (136-145) Potassium Level 4.0 MMOL/L (3.5-5.1) Chloride Level 101 MMOL/L (98-107) Carbon Dioxide Level 40 MMOL/L (21-32) H Anion Gap 2 mmol/L (5-15) L Blood Urea Nitrogen 41 mg/dL (7-18) H Creatinine 1.6 MG/DL (0.55-1.30) H Estimat Glomerular Filtration Rate mL/min (>60) Glucose Level 129 MG/DL (74-106) H Calcium Level 9.3 MG/DL (8.5-10.1) Phosphorus Level 3.8 MG/DL (2.5-4.9) Magnesium Level 2.1 MG/DL (1.8-2.4) Total Bilirubin 0.3 MG/DL (0.2-1.0) Aspartate Amino Transf (AST/SGOT) 22 U/L (15-37) Alanine Aminotransferase (ALT/SGPT) 25 U/L (12-78) Alkaline Phosphatase 83 U/L (46-116) Total Protein 6.4 G/DL (6.4-8.2) Albumin 2.3 G/DL (3.4-5.0) L Globulin 4.1 g/dL Albumin/Globulin Ratio 0.6 (1.0-2.7) L Arterial Blood pH 7.547 (7.350-7.450) Arterial Blood Partial Pressure CO2 35.1 mmHg (35.0-45.0) Arterial Blood Partial Pressure O2 88.7 mmHg (75.0-100.0) Arterial Blood HCO3 29.8 mmol/L (22.0-26.0) H Arterial Blood Oxygen Saturation 96.4 % (95-100) Arterial Blood Base Excess 7.1 (-2-2) H David Test Positive Current Medications Medications (Trade) Dose Ordered Sig/Ann Route PRN Reason Start Time Stop Time Status Last Admin Dose Admin Acetaminophen (Tylenol) 650 mg Q4H PRN ORAL Mild Pain/Temp > 100.5 06/07/18 09:30 06/27/18 13:29 06/07/18 15:26 Albuterol/ Ipratropium (Albuterol/ Ipratropium) 3 ml Q6HRT HHN 06/07/18 07:45 06/12/18 07:44 06/08/18 12:46 Amiodarone HCl (Cordarone) 100 mg DAILY ORAL 06/03/18 09:00 06/30/18 08:59 06/08/18 09:07 Amlodipine Besylate (Norvasc) 5 mg BID ORAL 06/02/18 18:00 06/27/18 08:59 06/08/18 09:07 Cefepime HCl 1 gm/ Dextrose 55 ml @ 110 mls/hr Q24H IV 06/03/18 09:00 06/09/18 08:59 06/08/18 09:07 Chlorhexidine Gluconate (Myra-Hex 2%) 1 applic DAILY@2000 TOPIC 06/02/18 20:00 07/02/18 19:59 06/07/18 20:13 Furosemide (Lasix) 20 mg EVERY 12 HOURS ORAL 06/06/18 22:15 07/06/18 22:14 06/08/18 09:08 Haloperidol Lactate (Haldol) 5 mg Q6H PRN IM Agitation 06/08/18 12:15 07/08/18 12:14 Heparin Sodium (Porcine) (Heparin 5000 units/ml) 5,000 units EVERY 12 HOURS SUBQ 06/02/18 21:00 06/27/18 08:59 06/08/18 09:09 Nitroglycerin (Ntg) 0.4 mg Q5M PRN SL Prn Chest Pain 06/02/18 13:30 06/27/18 13:29 Ondansetron HCl (Zofran) 4 mg Q6H PRN IVP Nausea & Vomiting 06/02/18 13:30 06/27/18 07:29 Pantoprazole (Protonix) 40 mg DAILY IV 06/03/18 09:00 07/03/18 08:59 06/08/18 09:07 Polyethylene Glycol (Miralax) 17 gm BEDTIME ORAL 06/06/18 21:00 07/06/18 20:59 06/07/18 20:59 Polyethylene Glycol (Miralax) 17 gm DAILYPRN PRN ORAL Constipation 06/02/18 13:30 07/02/18 13:29 06/05/18 20:57 Quetiapine Fumarate (SEROquel) 25 mg Q6H PRN ORAL For Anxiety 06/02/18 13:30 06/29/18 13:29 06/08/18 09:17 Vancomycin HCl (Vanco rx to dose) 1 ea DAILY PRN MISC Per rx protocol 06/02/18 13:30 07/02/18 13:29 Vancomycin HCl 750 mg/Sodium Chloride 275 ml @ 183.333 mls/hr Q36H IVPB 06/07/18 16:00 06/12/18 15:59 06/07/18 15:25 Clint Harris MD Jun 08, 2018 13:23
--- NOTE | 2018-06-08 13:24 | Diagnostic Imaging Report ---
Indication: Dyspnea Comparison: 06/07/2018 A single view chest radiograph was obtained. Findings: Interstitial edema and prominent vascularity and heart size again demonstrated. Bilateral pleural effusions are suspected with hazy groundglass opacities at both lung bases. Tubes and lines are stable. IMPRESSION: No change from one day earlier
--- NOTE | 2018-06-08 13:35 | Diagnostic Imaging Report ---
Indication:pleural effusion Technique: Grayscale and duplex Doppler imaging of the chest performed. Comparison: None Findings: Small right pleural effusion demonstrated. IMPRESSION: Small right pleural effusion If there is clinical concern such that a diagnostic thoracentesis is needed, this could be performed with some risk of pneumothorax. However this amount of fluid is not enough to warrant the procedure for therapeutic purposes as drainage of this amount of fluid would unlikely result in any clinical improvement
--- NOTE | 2018-06-08 14:06 | NUR ---
NURSE NOTES: Oral care done. Turned and repositioned pt. Pt is calm and sleeping in bed. Will continue to monitor.
[2018-06-08] MEDS ORDERED: NS 275ml ONE (15:30)
[2018-06-08] MEDS ORDERED: Tubing Blood Filter IV ONE (15:30)
--- NOTE | 2018-06-08 15:43 | GI Progress Note ---
Assessment/Plan Problems: (1) Severe malnutrition ICD Codes: E43 - Unspecified severe protein-calorie malnutrition SNOMED: 19456926 (2) Dementia ICD Codes: F03.90 - Unspecified dementia without behavioral disturbance SNOMED: 23595577 (3) Confused ICD Codes: R41.0 - Disorientation, unspecified SNOMED: 355207627 (4) Encounter for PEG (percutaneous endoscopic gastrostomy) ICD Codes: Z43.1 - Encounter for attention to gastrostomy SNOMED: 997149381, 629681078 (5) Failure to thrive SNOMED: 45724510 (6) Acute encephalopathy ICD Codes: G93.40 - Encephalopathy, unspecified SNOMED: 5141061 Status: unchanged Status Narrative Discussed with Dr. Acevedo Assessment/Plan Assessment - Resp failure - NGT dependent - COPD - CHF - PNA - Anemia - Poor prognosis -No plans for tracheostomy as of yet, patient has failed weening 3 times. Recommendations - NGT feeds, discussed with family regarding PEG placement. >> Will schedule if agrees . - Vent care - Elevated HOB - Monitor residuals - Abx - Pulmonary toilet -Follow labs The patient was seen and examined at bedside and all new and available data was reviewed in the patients chart. I agree with the above findings, impression and plan. (Patient seen earlier today. Signature stamp does not reflect patient encounter time.). - Jacobo Acevedo MD Subjective Subjective Limited Objective Last 24 Hour Vital Signs Date Time Temp Pulse Resp B/P (MAP) Pulse Ox O2 Delivery O2 Flow Rate FiO2 06/08/18 15:29 92 14 35 06/08/18 15:00 86 12 130/51 (77) 97 06/08/18 15:00 95 13 121/56 (77) 97 06/08/18 14:00 86 12 130/51 (77) 97 06/08/18 13:00 86 13 137/68 (91) 99 06/08/18 12:58 88 12 95 Mechanical Ventilator 35 06/08/18 12:58 88 12 35 06/08/18 12:47 80 12 96 Mechanical Ventilator 35 06/08/18 12:00 98.5 81 12 140/100 (113) 96 06/08/18 12:00 35 06/08/18 12:00 Mechanical Ventilator 06/08/18 12:00 88 06/08/18 11:20 85 12 35 06/08/18 11:00 82 12 107/47 (67) 97 06/08/18 10:00 98 17 125/55 (78) 98 06/08/18 09:07 98 131/59 06/08/18 09:00 101 21 131/59 (83) 97 06/08/18 08:59 101 24 35 06/08/18 08:59 100 06/08/18 08:53 104 31 35 06/08/18 08:49 95 19 35 06/08/18 08:00 98.1 94 15 134/51 (78) 97 06/08/18 08:00 Mechanical Ventilator 06/08/18 08:00 35 06/08/18 07:18 80 12 35 06/08/18 07:17 80 12 100 Mechanical Ventilator 35 06/08/18 07:16 77 06/08/18 07:07 80 12 100 Mechanical Ventilator 35 06/08/18 07:00 75 12 117/54 (75) 99 06/08/18 06:00 92 16 112/44 (66) 100 06/08/18 05:06 77 12 35 06/08/18 05:00 79 16 124/52 (76) 100 06/08/18 04:00 Mechanical Ventilator 06/08/18 04:00 81 06/08/18 04:00 35 06/08/18 04:00 99.2 80 16 120/60 (80) 100 06/08/18 03:26 82 12 35 06/08/18 03:00 83 14 110/70 (83) 100 06/08/18 02:00 86 16 107/70 (82) 100 06/08/18 01:27 93 19 99 Mechanical Ventilator 35 06/08/18 01:14 97 16 100 Mechanical Ventilator 35 06/08/18 01:11 88 12 35 06/08/18 01:00 91 16 117/51 (73) 100 06/08/18 00:00 99.0 97 17 140/62 (88) 97 06/08/18 00:00 Mechanical Ventilator 06/08/18 00:00 97 06/07/18 23:46 96 22 35 06/07/18 23:00 86 14 108/53 (71) 95 06/07/18 22:00 96 14 121/49 (73) 95 06/07/18 21:37 83 12 35 06/07/18 21:00 86 14 115/46 (69) 95 06/07/18 20:00 86 06/07/18 20:00 35 06/07/18 20:00 99.4 98 14 119/45 (69) 95 06/07/18 20:00 Mechanical Ventilator 06/07/18 19:54 82 12 99 Mechanical Ventilator 35 06/07/18 19:46 85 13 99 Mechanical Ventilator 35 06/07/18 19:41 82 12 35 06/07/18 18:15 84 139/56 06/07/18 18:00 98.6 98 14 116/88 (97) 97 06/07/18 17:00 94 14 95/75 (82) 97 06/07/18 16:40 91 15 35 06/07/18 16:00 35 06/07/18 16:00 92 12 111/62 (78) 97 06/07/18 16:00 Mechanical Ventilator 06/07/18 16:00 90 06/07/18 15:56 100.3 Intake and Output 06/07/18 06/08/18 19:00 07:00 Intake Total 725 ml 585 ml Output Total 1225 ml 850 ml Balance -500 ml -265 ml Free Water 120 ml 90 ml IV Total 110 ml Tube Feeding 495 ml 495 ml Output Urine Total 1225 ml 850 ml Laboratory Tests Test 06/08/18 04:30 06/08/18 09:30 White Blood Count 13.3 K/UL (4.8-10.8) H Red Blood Count 4.30 M/UL (4.20-5.40) Hemoglobin 9.6 G/DL (12.0-16.0) L Hematocrit 30.9 % (37.0-47.0) L Mean Corpuscular Volume 72 FL (80-99) L Mean Corpuscular Hemoglobin 22.5 PG (27.0-31.0) L Mean Corpuscular Hemoglobin Concent 31.2 G/DL (32.0-36.0) L Red Cell Distribution Width 17.5 % (11.6-14.8) H Platelet Count 231 K/UL (150-450) Mean Platelet Volume 7.1 FL (6.5-10.1) Neutrophils (%) (Auto) 76.6 % (45.0-75.0) H Lymphocytes (%) (Auto) 14.7 % (20.0-45.0) L Monocytes (%) (Auto) 5.9 % (1.0-10.0) Eosinophils (%) (Auto) 2.3 % (0.0-3.0) Basophils (%) (Auto) 0.6 % (0.0-2.0) Sodium Level 143 MMOL/L (136-145) Potassium Level 4.0 MMOL/L (3.5-5.1) Chloride Level 101 MMOL/L (98-107) Carbon Dioxide Level 40 MMOL/L (21-32) H Anion Gap 2 mmol/L (5-15) L Blood Urea Nitrogen 41 mg/dL (7-18) H Creatinine 1.6 MG/DL (0.55-1.30) H Estimat Glomerular Filtration Rate mL/min (>60) Glucose Level 129 MG/DL (74-106) H Calcium Level 9.3 MG/DL (8.5-10.1) Phosphorus Level 3.8 MG/DL (2.5-4.9) Magnesium Level 2.1 MG/DL (1.8-2.4) Total Bilirubin 0.3 MG/DL (0.2-1.0) Aspartate Amino Transf (AST/SGOT) 22 U/L (15-37) Alanine Aminotransferase (ALT/SGPT) 25 U/L (12-78) Alkaline Phosphatase 83 U/L (46-116) Total Protein 6.4 G/DL (6.4-8.2) Albumin 2.3 G/DL (3.4-5.0) L Globulin 4.1 g/dL Albumin/Globulin Ratio 0.6 (1.0-2.7) L Arterial Blood pH 7.547 (7.350-7.450) Arterial Blood Partial Pressure CO2 35.1 mmHg (35.0-45.0) Arterial Blood Partial Pressure O2 88.7 mmHg (75.0-100.0) Arterial Blood HCO3 29.8 mmol/L (22.0-26.0) H Arterial Blood Oxygen Saturation 96.4 % (95-100) Arterial Blood Base Excess 7.1 (-2-2) H David Test Positive Height (Feet): 5 Height (Inches): 4.00 Weight (Pounds): 120 General Appearance: WD/WN, no apparent distress, alert Cardiovascular: normal rate Respiratory/Chest: normal breath sounds, no respiratory distress, other Abdominal Exam: normal bowel sounds, non tender, soft, other - NGT Extremities: normal range of motion, non-tender Alber Rodriguez NP Jun 08, 2018 15:43
--- NOTE | 2018-06-08 16:16 | NUR ---
NURSE NOTES: Turned and repositioned pt. Pt gets slightly agitated while cleaning. Oral care done. Afebrile. Will continue to monitor.
--- NOTE | 2018-06-08 19:03 | NUR ---
HAND-OFF: Report given to MARGY Moscoso.
--- NOTE | 2018-06-08 19:30 | NUR ---
NURSE NOTES:Received pt with eyes close, but easily arousable to tactile stimulation. Orally intubated, on ac mode(failed weaning today per RN report) SR on the monitor, bp stable afebrile. Son at bedside- updated with pts condition- verbalized understanding. Suctioned tntk whitish secretions moderate in amt. 02 sat >95%. HOB kept elevated. Watch for any resp. distress.- Will continue to monitor.
[2018-06-08] MEDS: Dyna-Hex 2% Top Sol 2oz TOPIC SCH (19:57)
--- NOTE | 2018-06-08 20:48 | Cardiology Progress Note ---
Assessment/Plan Assessment/Plan COPD, congestive heart failure, atrial fibrillation sinus tachy agitation right lung collapse? anemia intubeted chest pt dvt ppx all trop neg cr is stable hgb trending down is npo off ivf was restarted on iv diuretic last nite for chf but increed bicard and cr will dc will keep on dry side to help wean Subjective ROS Limited/Unobtainable: Yes Subjective on a vent in the icu no family at bedside p respond with head gestures Objective Last 24 Hour Vital Signs Date Time Temp Pulse Resp B/P (MAP) Pulse Ox O2 Delivery O2 Flow Rate FiO2 06/08/18 19:50 12 14 98 Mechanical Ventilator 35 06/08/18 19:40 93 14 98 Mechanical Ventilator 35 06/08/18 19:40 93 14 35 06/08/18 19:00 94 12 101/41 (61) 97 06/08/18 19:00 94 16 127/56 (79) 98 06/08/18 18:00 94 16 127/56 (79) 98 06/08/18 17:39 98 131/51 06/08/18 17:10 94 17 35 06/08/18 17:00 93 16 120/58 (78) 96 06/08/18 16:00 35 06/08/18 16:00 Mechanical Ventilator 06/08/18 16:00 98.4 87 13 105/48 (67) 98 06/08/18 15:58 88 06/08/18 15:29 92 14 35 06/08/18 15:00 86 12 130/51 (77) 97 06/08/18 15:00 95 13 121/56 (77) 97 06/08/18 14:00 86 12 130/51 (77) 97 06/08/18 13:00 86 13 137/68 (91) 99 06/08/18 12:58 88 12 95 Mechanical Ventilator 35 06/08/18 12:58 88 12 35 06/08/18 12:47 80 12 96 Mechanical Ventilator 35 06/08/18 12:00 98.5 81 12 140/100 (113) 96 06/08/18 12:00 35 06/08/18 12:00 Mechanical Ventilator 06/08/18 12:00 88 06/08/18 11:20 85 12 35 06/08/18 11:00 82 12 107/47 (67) 97 06/08/18 10:00 98 17 125/55 (78) 98 06/08/18 09:07 98 131/59 06/08/18 09:00 101 21 131/59 (83) 97 06/08/18 08:59 101 24 35 06/08/18 08:59 100 06/08/18 08:53 104 31 35 06/08/18 08:49 95 19 35 06/08/18 08:00 98.1 94 15 134/51 (78) 97 06/08/18 08:00 Mechanical Ventilator 06/08/18 08:00 35 06/08/18 07:18 80 12 35 06/08/18 07:17 80 12 100 Mechanical Ventilator 35 06/08/18 07:16 77 06/08/18 07:07 80 12 100 Mechanical Ventilator 35 06/08/18 07:00 75 12 117/54 (75) 99 06/08/18 06:00 92 16 112/44 (66) 100 06/08/18 05:06 77 12 35 06/08/18 05:00 79 16 124/52 (76) 100 06/08/18 04:00 Mechanical Ventilator 06/08/18 04:00 81 06/08/18 04:00 35 06/08/18 04:00 99.2 80 16 120/60 (80) 100 06/08/18 03:26 82 12 35 06/08/18 03:00 83 14 110/70 (83) 100 06/08/18 02:00 86 16 107/70 (82) 100 06/08/18 01:27 93 19 99 Mechanical Ventilator 35 06/08/18 01:14 97 16 100 Mechanical Ventilator 35 06/08/18 01:11 88 12 35 06/08/18 01:00 91 16 117/51 (73) 100 06/08/18 00:00 99.0 97 17 140/62 (88) 97 06/08/18 00:00 Mechanical Ventilator 06/08/18 00:00 97 06/07/18 23:46 96 22 35 06/07/18 23:00 86 14 108/53 (71) 95 06/07/18 22:00 96 14 121/49 (73) 95 06/07/18 21:37 83 12 35 06/07/18 21:00 86 14 115/46 (69) 95 General Appearance: no apparent distress, alert, on vent Cardiovascular: normal rate Respiratory/Chest: lungs clear - ant, respiratory distress Abdomen: non tender, soft Extremities: no swelling Intake and Output 06/07/18 06/08/18 18:59 06:59 Intake Total 770 ml 540 ml Output Total 1550 ml 750 ml Balance -780 ml -210 ml Free Water 120 ml 90 ml IV Total 110 ml Tube Feeding 540 ml 450 ml Output Urine Total 1550 ml 750 ml Laboratory Tests Test 06/08/18 04:30 06/08/18 09:30 White Blood Count 13.3 K/UL (4.8-10.8) H Red Blood Count 4.30 M/UL (4.20-5.40) Hemoglobin 9.6 G/DL (12.0-16.0) L Hematocrit 30.9 % (37.0-47.0) L Mean Corpuscular Volume 72 FL (80-99) L Mean Corpuscular Hemoglobin 22.5 PG (27.0-31.0) L Mean Corpuscular Hemoglobin Concent 31.2 G/DL (32.0-36.0) L Red Cell Distribution Width 17.5 % (11.6-14.8) H Platelet Count 231 K/UL (150-450) Mean Platelet Volume 7.1 FL (6.5-10.1) Neutrophils (%) (Auto) 76.6 % (45.0-75.0) H Lymphocytes (%) (Auto) 14.7 % (20.0-45.0) L Monocytes (%) (Auto) 5.9 % (1.0-10.0) Eosinophils (%) (Auto) 2.3 % (0.0-3.0) Basophils (%) (Auto) 0.6 % (0.0-2.0) Sodium Level 143 MMOL/L (136-145) Potassium Level 4.0 MMOL/L (3.5-5.1) Chloride Level 101 MMOL/L (98-107) Carbon Dioxide Level 40 MMOL/L (21-32) H Anion Gap 2 mmol/L (5-15) L Blood Urea Nitrogen 41 mg/dL (7-18) H Creatinine 1.6 MG/DL (0.55-1.30) H Estimat Glomerular Filtration Rate mL/min (>60) Glucose Level 129 MG/DL (74-106) H Calcium Level 9.3 MG/DL (8.5-10.1) Phosphorus Level 3.8 MG/DL (2.5-4.9) Magnesium Level 2.1 MG/DL (1.8-2.4) Total Bilirubin 0.3 MG/DL (0.2-1.0) Aspartate Amino Transf (AST/SGOT) 22 U/L (15-37) Alanine Aminotransferase (ALT/SGPT) 25 U/L (12-78) Alkaline Phosphatase 83 U/L (46-116) Total Protein 6.4 G/DL (6.4-8.2) Albumin 2.3 G/DL (3.4-5.0) L Globulin 4.1 g/dL Albumin/Globulin Ratio 0.6 (1.0-2.7) L Arterial Blood pH 7.547 (7.350-7.450) Arterial Blood Partial Pressure CO2 35.1 mmHg (35.0-45.0) Arterial Blood Partial Pressure O2 88.7 mmHg (75.0-100.0) Arterial Blood HCO3 29.8 mmol/L (22.0-26.0) H Arterial Blood Oxygen Saturation 96.4 % (95-100) Arterial Blood Base Excess 7.1 (-2-2) H David Test Positive Geoffrey Sandhu MD Jun 08, 2018 20:48
[2018-06-08] MEDS: Miralax 17gm pkt ORAL SCH (21:14)
--- NOTE | 2018-06-08 21:30 | NUR ---
NURSE NOTES:Suctioned tk whitish secretions moderate in amt. 02 sat >95%. Oral care done as well.
--- NOTE | 2018-06-08 21:57 | General Progress Note ---
Assessment/Plan Status: progressing Assessment/Plan This is an 87-year-old female admitted with chronic obstructive pulmonary disease exacerbation, right lower lobe infiltrate/pneumonia with altered mental status and acute kidney injury. The patient will be admitted to [facility] with the following medical problems. 1. Chronic obstructive pulmonary disease exacerbation and pneumonia. The patient has been seen by Pulmonary. Infectious Disease has been consulted, pancultured. IV antibiotics per ID. Continue with BiPAP and suction p.r.n. Transition to Venturi-mask when stable. 2. Acute kidney injury. We will monitor I's and O's, gentle intravenous fluids. Repeat a BMP in a.m. Consider Nephrology consult. 3. History of chronic atrial fibrillation. Continue with amiodarone. The patient is in sinus rhythm at this time. 4. History of hypertension. Continue with amlodipine and hold for systolic blood pressure less than 110. 5. Altered mental status, most likely from above conditions. We will keep n.p.o. except for medications and start IV fluids. 6. DVT prophylaxis with heparin subcutaneous and SCDs. 7. The patient is Full Code per policy. We will discuss with the family. 8. hypokalmia 9. Anemia 10. CHf acute on chronic 11. leucocytosis Plan: - now in ICU on VENT support - continue present care - iV antibioitics and fluids - NGT placed for nutrition - monitor lights patient is full code per family's wish discussed with ICU nurse - wean off vent per ICU team no plan for PEG at this time - weaning off vent in progress discussed with ICU nurse Subjective Date patient seen: Jun 08, 2018 ROS Limited/Unobtainable: Yes Allergies: Coded Allergies: Mushroom (Verified Allergy, Severe, 05/28/18) MORPHINE (Unverified Allergy, Intermediate, Itching, 01/04/15) PENICILLINS (Unverified Allergy, Intermediate, Hives, 01/04/15) CELECOXIB (Verified Allergy, Mild, 01/15/09) Subjective patient with acute respiratory failure continues to remain intubated in ICU, weaning started today Objective Last 24 Hour Vital Signs Date Time Temp Pulse Resp B/P (MAP) Pulse Ox O2 Delivery O2 Flow Rate FiO2 06/08/18 21:29 89 12 35 06/08/18 19:50 12 14 98 Mechanical Ventilator 35 06/08/18 19:40 93 14 98 Mechanical Ventilator 35 06/08/18 19:40 93 14 35 06/08/18 19:00 94 12 101/41 (61) 97 06/08/18 19:00 94 16 127/56 (79) 98 06/08/18 18:00 94 16 127/56 (79) 98 06/08/18 17:39 98 131/51 06/08/18 17:10 94 17 35 06/08/18 17:00 93 16 120/58 (78) 96 06/08/18 16:00 35 06/08/18 16:00 Mechanical Ventilator 06/08/18 16:00 98.4 87 13 105/48 (67) 98 06/08/18 15:58 88 06/08/18 15:29 92 14 35 06/08/18 15:00 86 12 130/51 (77) 97 06/08/18 15:00 95 13 121/56 (77) 97 06/08/18 14:00 86 12 130/51 (77) 97 06/08/18 13:00 86 13 137/68 (91) 99 06/08/18 12:58 88 12 95 Mechanical Ventilator 35 06/08/18 12:58 88 12 35 06/08/18 12:47 80 12 96 Mechanical Ventilator 35 06/08/18 12:00 98.5 81 12 140/100 (113) 96 06/08/18 12:00 35 06/08/18 12:00 Mechanical Ventilator 06/08/18 12:00 88 06/08/18 11:20 85 12 35 06/08/18 11:00 82 12 107/47 (67) 97 06/08/18 10:00 98 17 125/55 (78) 98 06/08/18 09:07 98 131/59 06/08/18 09:00 101 21 131/59 (83) 97 06/08/18 08:59 101 24 35 06/08/18 08:59 100 06/08/18 08:53 104 31 35 06/08/18 08:49 95 19 35 06/08/18 08:00 98.1 94 15 134/51 (78) 97 06/08/18 08:00 Mechanical Ventilator 06/08/18 08:00 35 06/08/18 07:18 80 12 35 06/08/18 07:17 80 12 100 Mechanical Ventilator 35 2/6/19 07:16 77 06/08/18 07:07 80 12 100 Mechanical Ventilator 35 06/08/18 07:00 75 12 117/54 (75) 99 06/08/18 06:00 92 16 112/44 (66) 100 06/08/18 05:06 77 12 35 06/08/18 05:00 79 16 124/52 (76) 100 06/08/18 04:00 Mechanical Ventilator 06/08/18 04:00 81 06/08/18 04:00 35 06/08/18 04:00 99.2 80 16 120/60 (80) 100 06/08/18 03:26 82 12 35 06/08/18 03:00 83 14 110/70 (83) 100 06/08/18 02:00 86 16 107/70 (82) 100 06/08/18 01:27 93 19 99 Mechanical Ventilator 35 06/08/18 01:14 97 16 100 Mechanical Ventilator 35 06/08/18 01:11 88 12 35 06/08/18 01:00 91 16 117/51 (73) 100 06/08/18 00:00 99.0 97 17 140/62 (88) 97 06/08/18 00:00 Mechanical Ventilator 06/08/18 00:00 97 06/07/18 23:46 96 22 35 06/07/18 23:00 86 14 108/53 (71) 95 06/07/18 22:00 96 14 121/49 (73) 95 Intake and Output 06/07/18 06/08/18 18:59 06:59 Intake Total 770 ml 540 ml Output Total 1550 ml 750 ml Balance -780 ml -210 ml Free Water 120 ml 90 ml IV Total 110 ml Tube Feeding 540 ml 450 ml Output Urine Total 1550 ml 750 ml Laboratory Tests 06/08/18 04:30: White Blood Count 13.3H, Red Blood Count 4.30, Hemoglobin 9.6L, Hematocrit 30.9L , Mean Corpuscular Volume 72L, Mean Corpuscular Hemoglobin 22.5L, Mean Corpuscular Hemoglobin Concent 31.2L, Red Cell Distribution Width 17.5H, Platelet Count 231, Mean Platelet Volume 7.1, Neutrophils (%) (Auto) 76.6H, Lymphocytes (%) (Auto) 14.7L, Monocytes (%) (Auto) 5.9, Eosinophils (%) (Auto) 2.3, Basophils (%) (Auto) 0.6, Sodium Level 143, Potassium Level 4.0, Chloride Level 101, Carbon Dioxide Level 40H, Anion Gap 2L, Blood Urea Nitrogen 41H, Creatinine 1.6H, Estimat Glomerular Filtration Rate , Glucose Level 129H, Calcium Level 9.3, Phosphorus Level 3.8, Magnesium Level 2.1, Total Bilirubin 0.3, Aspartate Amino Transf (AST/SGOT) 22, Alanine Aminotransferase (ALT/SGPT) 25, Alkaline Phosphatase 83, Total Protein 6.4, Albumin 2.3L, Globulin 4.1, Albumin/Globulin Ratio 0.6L 06/08/18 09:30: Arterial Blood pH 7.547H, Arterial Blood Partial Pressure CO2 35.1, Arterial Blood Partial Pressure O2 88.7, Arterial Blood HCO3 29.8H, Arterial Blood Oxygen Saturation 96.4, Arterial Blood Base Excess 7.1H, David Test Positive Height (Feet): 5 Height (Inches): 4.00 Weight (Pounds): 120 General Appearance: no apparent distress, alert EENT: PERRL/EOMI, pharynx normal Neck: non-tender, supple Respiratory/Chest: rhonchi - bilaterally Abdomen: non tender, soft, no mass Extremities: non-tender, normal inspection, no calf tenderness Edema: no edema noted Arm (L), no edema noted Arm (R), no edema noted Leg (L), no edema noted Leg (R), no edema noted Pedal (L), no edema noted Pedal (R), no edema noted Generalized Neurologic: responsive Skin: warm/dry Lymphatic: normal anterior cervical (L), normal anterior cervical (R), normal posterior cervical (L), normal posterior cervical (R), normal submandibular (L) , normal submandibular (R), normal supraclavicular (L), normal supraclavicular ( R), normal axillary (L), normal axillary (R), normal inguinal (L), normal inguinal (R), normal other Cruz Valderrama MD Jun 08, 2018 21:57
--- NOTE | 2018-06-08 23:30 | NUR ---
NURSE NOTES: Bilateral oft wrist restraints maintained for safety , due to constantly attempting to pull out therapeutic devices.
[2018-06-09] VITALS (24 sets, daily range): BP systolic 97–138; BP diastolic 29–68
--- NOTE | 2018-06-09 | NUR ---
NURSE NOTES:Turned q 2hrs prn with good skin care done. No bowel movement at this time.
[2018-06-09] MEDS: Albuterol/Ipratropium 3ml neb HHN SCH ×5 (01:00→23:25)
[2018-06-09] MEDS: Haloperidol 5mg/ml Inj IM PRN (01:19)
--- NOTE | 2018-06-09 01:21 | NUR ---
NURSE NOTES:Haldol 5mg IM given through Rt Deltoid due to severe agitation.
--- NOTE | 2018-06-09 02:00 | NUR ---
NURSE NOTES:calmed and resting well at this time. vss.
--- NOTE | 2018-06-09 04:00 | NUR ---
NURSE NOTES:complete bath with bed changed done.
[2018-06-09] MEDS: Vancomycin 750mg/NS 275ml IVPB SCH ×2 (04:21)
[2018-06-09 05:45] LABS: BASOPHILS % (AUTO) 0.6 % (0.0-2.0); EOSINOPHILS % (AUTO) 2.4 % (0.0-3.0); HEMOGLOBIN 9.7 G/DL (12.0-16.0); LYMPHOCYTES % (AUTO) 17.4 % (20.0-45.0); MEAN CORPUSCULAR VOLUME 72 FL (80-99); MONOCYTES % (AUTO) 6.6 % (1.0-10.0); PLATELET COUNT 283 K/UL (150-450); RED BLOOD COUNT 4.29 M/UL (4.20-5.40); RED CELL DISTRIBUTION WIDTH 17.9 % (11.6-14.8); WHITE BLOOD COUNT 11.6 K/UL (4.8-10.8)
--- NOTE | 2018-06-09 06:00 | NUR ---
NURSE NOTES:Suctioned tk whitish secretions lg in amt. 02 sat 100%, tolerated fdg. No resp. distress noted.
[2018-06-09 06:36] LABS: ALANINE AMINOTRANSFERASE 25 U/L (12-78); ALBUMIN 2.3 G/DL (3.4-5.0); ALBUMIN/GLOBULIN RATIO 0.6 (1.0-2.7); ALKALINE PHOSPHATASE 77 U/L (46-116); ANION GAP 3 mmol/L (5-15); ASPARTATE AMINO TRANSFERASE 22 U/L (15-37); BILIRUBIN,TOTAL 0.3 MG/DL (0.2-1.0); BLOOD UREA NITROGEN 45 mg/dL (7-18); CALCIUM 9.2 MG/DL (8.5-10.1); CARBON DIOXIDE 40 MMOL/L (21-32); CHLORIDE 100 MMOL/L (98-107); CREATININE 1.7 MG/DL (0.55-1.30); POTASSIUM 4.2 MMOL/L (3.5-5.1); SODIUM 143 MMOL/L (136-145)
--- NOTE | 2018-06-09 07:03 | NUR ---
RESPIRATORY NOTE: received pt on current vent settings, intubated with ett 7.5, placed 21cm at the lip. ett is secured via anchor fast with no redness or skin breakdown around facial or neck area. no resp distres noted a this time. weaning orders to follow later this morning. vent is plugged into redoutlet with alarms audible and ambu bag at bedside. will cont to monitor.
--- NOTE | 2018-06-09 07:16 | NUR ---
HAND-OFF: Report given to Celi joya R.n
--- NOTE | 2018-06-09 07:17 | NUR ---
NURSE NOTES: Report received from MARGY Moscoso. Pt is awake and oriented to name. Mainly Farsi speaking. Pt gets agitated at times. On bilateral soft wrist restraints. 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 ETT 7.5/ 21cm at level. AC 12, TV 500, FiO2 35%, P 5. O2 sat 100% No respiratory distress noted. Right NGT in place receiving Osmolite 1.5 at 45cc/hr. No residual noted. Sinclair in place draining to gravity. Right UA PICC patent and asymptomatic. Bed in lowest position. Side rails up x3. Will resume plan of care.
--- NOTE | 2018-06-09 08:22 | NUR ---
RESPIRATORY NOTE: pt placed on CPAP, PS 10. pt's family at bedside helping to translate what is needed to be done with pt. pt's family stated she wants to sleep so has been placed back on AC mode. will try again within the hour when pt is more awake. RN, notified
[2018-06-09] MEDS: Pantoprazole Inj IV SCH (08:40)
[2018-06-09] MEDS: Amiodarone 200mg tab ORAL SCH (08:41)
[2018-06-09] MEDS: Heparin 5000 units/ml inj SUBQ SCH ×2 (08:45→22:27)
[2018-06-09] MEDS: Cefepime HCl 1 GM in D5W 55 ML IV SCH (08:51)
--- NOTE | 2018-06-09 08:58 | NUR ---
RADIOLOGY DEPT CHEST X-RAY DONE. -P.DYE
--- NOTE | 2018-06-09 09:10 | NUR ---
NURSE NOTES: Daughter and granddaughter at bedside, explaining to pt what is going to be done in [facility]. Pt failed weaning x2. Pt appears to be tired and sleeping in bed. Turned and repositioned pt. Oral care done.
--- NOTE | 2018-06-09 09:22 | Infectious Diseases Prog Note ---
Assessment/Plan Assessment/Plan 87 yo feamle with PMHx of COPD, HTN, and A.fib sent to the ED from her nuring home for SOB. Sepsis - Likely PNA 05/28/18 CXR with atalectasis vs consolidation in the right side. 06/01/18 CXR - Extensive right hemithorax opacification UA (-) Sputum Cx 05/28/18 - MRSA (Inf Neg) Urine legionella (-) Positive blood Cx - Likely contaminant BCx 05/28/18 - CoNS BCX 05/30/18 - NGTD Leukocytosis 15 on admit - now resolved Febrile to 101.5 - now resolved COPD CAD A. fib PLAN - Continue Cefepime #- and vancomycin #- - Monitor CBC and Temps We will continue to follow Ms. Nowak during this hospitalization. Subjective Allergies: Coded Allergies: Mushroom (Verified Allergy, Severe, 05/28/18) MORPHINE (Unverified Allergy, Intermediate, Itching, 01/04/15) PENICILLINS (Unverified Allergy, Intermediate, Hives, 01/04/15) CELECOXIB (Verified Allergy, Mild, 01/15/09) Subjective Afebrile Mild Leukocytosis improved Objective Vital Signs Last 24 Hour Vital Signs Date Time Temp Pulse Resp B/P (MAP) Pulse Ox O2 Delivery O2 Flow Rate FiO2 06/09/18 09:00 91 17 126/59 (81) 99 06/09/18 08:41 90 111/49 06/09/18 08:25 86 12 35 06/09/18 08:22 96 06/09/18 08:00 98.2 93 14 129/63 (85) 98 06/09/18 08:00 Mechanical Ventilator 06/09/18 08:00 35 06/09/18 07:12 88 12 100 Mechanical Ventilator 35 06/09/18 07:00 81 13 129/63 (85) 96 06/09/18 07:00 88 14 96 Mechanical Ventilator 35 06/09/18 06:59 77 12 35 06/09/18 06:00 80 14 105/48 (67) 98 06/09/18 05:00 79 14 101/48 (65) 98 06/09/18 04:55 89 12 35 06/09/18 04:00 85 06/09/18 04:00 35 06/09/18 04:00 Mechanical Ventilator 06/09/18 04:00 98.4 85 14 120/48 (72) 98 06/09/18 03:00 85 12 110/47 (68) 97 06/09/18 02:42 87 12 35 06/09/18 02:00 88 12 120/47 (71) 97 06/09/18 01:10 101 20 100 Mechanical Ventilator 35 06/09/18 01:00 98 17 131/60 (83) 97 06/09/18 00:57 95 16 97 Mechanical Ventilator 35 06/09/18 00:56 97 16 35 06/09/18 00:00 35 06/09/18 00:00 98.8 94 13 120/50 (73) 97 06/09/18 00:00 94 06/09/18 00:00 Mechanical Ventilator 06/08/18 23:00 88 13 126/44 (71) 97 06/08/18 22:58 88 12 35 06/08/18 22:00 87 14 107/49 (68) 97 06/08/18 21:29 89 12 35 06/08/18 21:00 91 14 136/67 (90) 96 06/08/18 20:00 91 06/08/18 20:00 Mechanical Ventilator 06/08/18 20:00 98.0 91 14 120/70 (87) 97 06/08/18 19:50 12 14 98 Mechanical Ventilator 35 06/08/18 19:40 93 14 98 Mechanical Ventilator 35 06/08/18 19:40 93 14 35 06/08/18 19:00 94 12 101/41 (61) 97 06/08/18 19:00 94 16 127/56 (79) 98 06/08/18 18:00 94 16 127/56 (79) 98 06/08/18 17:39 98 131/51 06/08/18 17:10 94 17 35 06/08/18 17:00 93 16 120/58 (78) 96 06/08/18 16:00 35 06/08/18 16:00 Mechanical Ventilator 06/08/18 16:00 98.4 87 13 105/48 (67) 98 06/08/18 15:58 88 06/08/18 15:29 92 14 35 06/08/18 15:00 86 12 130/51 (77) 97 06/08/18 15:00 95 13 121/56 (77) 97 06/08/18 14:00 86 12 130/51 (77) 97 06/08/18 13:00 86 13 137/68 (91) 99 06/08/18 12:58 88 12 95 Mechanical Ventilator 35 06/08/18 12:58 88 12 35 06/08/18 12:47 80 12 96 Mechanical Ventilator 35 06/08/18 12:00 98.5 81 12 140/100 (113) 96 06/08/18 12:00 35 06/08/18 12:00 Mechanical Ventilator 06/08/18 12:00 88 06/08/18 11:20 85 12 35 06/08/18 11:00 82 12 107/47 (67) 97 06/08/18 10:00 98 17 125/55 (78) 98 Height (Feet): 5 Height (Inches): 4.00 Weight (Pounds): 120 Objective General: NAD, Intubated on Vent 35% O2 HEENT: normocephalic, atraumatic, DMM, EOMI Abdomen: Soft, NT, ND, + BS Laboratory Tests Test 06/08/18 09:30 06/09/18 04:00 Arterial Blood pH 7.547 (7.350-7.450) Arterial Blood Partial Pressure CO2 35.1 mmHg (35.0-45.0) Arterial Blood Partial Pressure O2 88.7 mmHg (75.0-100.0) Arterial Blood HCO3 29.8 mmol/L (22.0-26.0) H Arterial Blood Oxygen Saturation 96.4 % (95-100) Arterial Blood Base Excess 7.1 (-2-2) H David Test Positive White Blood Count 11.6 K/UL (4.8-10.8) H Red Blood Count 4.29 M/UL (4.20-5.40) Hemoglobin 9.7 G/DL (12.0-16.0) L Hematocrit 31.0 % (37.0-47.0) L Mean Corpuscular Volume 72 FL (80-99) L Mean Corpuscular Hemoglobin 22.5 PG (27.0-31.0) L Mean Corpuscular Hemoglobin Concent 31.2 G/DL (32.0-36.0) L Red Cell Distribution Width 17.9 % (11.6-14.8) H Platelet Count 283 K/UL (150-450) Mean Platelet Volume 8.0 FL (6.5-10.1) Neutrophils (%) (Auto) 73.0 % (45.0-75.0) Lymphocytes (%) (Auto) 17.4 % (20.0-45.0) L Monocytes (%) (Auto) 6.6 % (1.0-10.0) Eosinophils (%) (Auto) 2.4 % (0.0-3.0) Basophils (%) (Auto) 0.6 % (0.0-2.0) Sodium Level 143 MMOL/L (136-145) Potassium Level 4.2 MMOL/L (3.5-5.1) Chloride Level 100 MMOL/L (98-107) Carbon Dioxide Level 40 MMOL/L (21-32) H Anion Gap 3 mmol/L (5-15) L Blood Urea Nitrogen 45 mg/dL (7-18) H Creatinine 1.7 MG/DL (0.55-1.30) H Estimat Glomerular Filtration Rate mL/min (>60) Glucose Level 102 MG/DL (74-106) Calcium Level 9.2 MG/DL (8.5-10.1) Total Bilirubin 0.3 MG/DL (0.2-1.0) Aspartate Amino Transf (AST/SGOT) 22 U/L (15-37) Alanine Aminotransferase (ALT/SGPT) 25 U/L (12-78) Alkaline Phosphatase 77 U/L (46-116) Pro-B-Type Natriuretic Peptide 704 pg/mL (0-125) H Total Protein 6.4 G/DL (6.4-8.2) Albumin 2.3 G/DL (3.4-5.0) L Globulin 4.1 g/dL Albumin/Globulin Ratio 0.6 (1.0-2.7) L Current Medications Medications (Trade) Dose Ordered Sig/Ann Route PRN Reason Start Time Stop Time Status Last Admin Dose Admin Acetaminophen (Tylenol) 650 mg Q4H PRN ORAL Mild Pain/Temp > 100.5 06/07/18 09:30 06/27/18 13:29 06/07/18 15:26 Albuterol/ Ipratropium (Albuterol/ Ipratropium) 3 ml Q6HRT HHN 06/07/18 07:45 06/12/18 07:44 06/09/18 07:00 Amiodarone HCl (Cordarone) 100 mg DAILY ORAL 06/03/18 09:00 06/30/18 08:59 06/09/18 08:41 Amlodipine Besylate (Norvasc) 5 mg BID ORAL 06/02/18 18:00 06/27/18 08:59 06/08/18 17:39 Cefepime HCl 1 gm/ Dextrose 55 ml @ 110 mls/hr Q24H IV 06/03/18 09:00 06/15/18 08:59 06/09/18 08:51 Chlorhexidine Gluconate (Myra-Hex 2%) 1 applic DAILY@2000 TOPIC 06/02/18 20:00 07/02/18 19:59 06/08/18 19:57 Haloperidol Lactate (Haldol) 5 mg Q6H PRN IM Agitation 06/08/18 12:15 07/08/18 12:14 06/09/18 01:19 Heparin Sodium (Porcine) (Heparin 5000 units/ml) 5,000 units EVERY 12 HOURS SUBQ 06/02/18 21:00 06/27/18 08:59 06/09/18 08:45 Nitroglycerin (Ntg) 0.4 mg Q5M PRN SL Prn Chest Pain 06/02/18 13:30 06/27/18 13:29 Ondansetron HCl (Zofran) 4 mg Q6H PRN IVP Nausea & Vomiting 06/02/18 13:30 06/27/18 07:29 Pantoprazole (Protonix) 40 mg DAILY IV 06/03/18 09:00 07/03/18 08:59 06/09/18 08:40 Polyethylene Glycol (Miralax) 17 gm BEDTIME ORAL 06/06/18 21:00 07/06/18 20:59 06/08/18 21:14 Polyethylene Glycol (Miralax) 17 gm DAILYPRN PRN ORAL Constipation 06/02/18 13:30 07/02/18 13:29 06/05/18 20:57 Quetiapine Fumarate (SEROquel) 25 mg Q6H PRN ORAL For Anxiety 06/02/18 13:30 06/29/18 13:29 06/08/18 15:23 Vancomycin HCl (Vanco rx to dose) 1 ea DAILY PRN MISC Per rx protocol 06/02/18 13:30 07/02/18 13:29 Vancomycin HCl 750 mg/Sodium Chloride 275 ml @ 183.333 mls/hr Q36H IVPB 06/07/18 16:00 06/12/18 15:59 06/09/18 04:21 Clint Harris MD Jun 09, 2018 09:22
--- NOTE | 2018-06-09 09:54 | Pulmonolgy Critical Care Note ---
Critical Care - Asmt/Plan Problems: (1) Acute respiratory failure (2) Aspiration pneumonia (3) Acute encephalopathy (4) Pleural effusion (5) COPD (chronic obstructive pulmonary disease) (6) CAD (coronary artery disease) (7) Dementia Respiratory: monitor respiratory rate Cardiac: continue pressors, continue to monitor HR/BP Infectious Disease: check cultures, continue antibiotics Gastrointestinal: continue feedings/current rate Endocrine: monitor blood sugar, check HgA1C, continue sliding scale insulin Hematologic: monitor H/H, transfuse if hgb<8.5 Neurologic: PRN Ativan, keep patient comfortable Affect: PRN ativan Prophylaxis: Protonix Notes Reviewed: machine i coremaker, cardio Discussed with: nurses, consultants, bilingual case managermanager strategic - Objective Last 24 Hour Vital Signs Date Time Temp Pulse Resp B/P (MAP) Pulse Ox O2 Delivery O2 Flow Rate FiO2 06/09/18 09:00 91 17 126/59 (81) 99 06/09/18 08:41 90 111/49 06/09/18 08:25 86 12 35 06/09/18 08:22 96 06/09/18 08:00 98.2 93 14 129/63 (85) 98 06/09/18 08:00 Mechanical Ventilator 06/09/18 08:00 35 06/09/18 07:12 88 12 100 Mechanical Ventilator 35 06/09/18 07:00 81 13 129/63 (85) 96 06/09/18 07:00 88 14 96 Mechanical Ventilator 35 06/09/18 06:59 77 12 35 06/09/18 06:00 80 14 105/48 (67) 98 06/09/18 05:00 79 14 101/48 (65) 98 06/09/18 04:55 89 12 35 06/09/18 04:00 85 06/09/18 04:00 35 06/09/18 04:00 Mechanical Ventilator 06/09/18 04:00 98.4 85 14 120/48 (72) 98 06/09/18 03:00 85 12 110/47 (68) 97 06/09/18 02:42 87 12 35 06/09/18 02:00 88 12 120/47 (71) 97 06/09/18 01:10 101 20 100 Mechanical Ventilator 35 06/09/18 01:00 98 17 131/60 (83) 97 06/09/18 00:57 95 16 97 Mechanical Ventilator 35 06/09/18 00:56 97 16 35 06/09/18 00:00 35 06/09/18 00:00 98.8 94 13 120/50 (73) 97 06/09/18 00:00 94 06/09/18 00:00 Mechanical Ventilator 06/08/18 23:00 88 13 126/44 (71) 97 06/08/18 22:58 88 12 35 06/08/18 22:00 87 14 107/49 (68) 97 06/08/18 21:29 89 12 35 06/08/18 21:00 91 14 136/67 (90) 96 06/08/18 20:00 91 06/08/18 20:00 Mechanical Ventilator 06/08/18 20:00 98.0 91 14 120/70 (87) 97 06/08/18 19:50 12 14 98 Mechanical Ventilator 35 06/08/18 19:40 93 14 98 Mechanical Ventilator 35 06/08/18 19:40 93 14 35 06/08/18 19:00 94 12 101/41 (61) 97 06/08/18 19:00 94 16 127/56 (79) 98 06/08/18 18:00 94 16 127/56 (79) 98 06/08/18 17:39 98 131/51 06/08/18 17:10 94 17 35 06/08/18 17:00 93 16 120/58 (78) 96 06/08/18 16:00 35 06/08/18 16:00 Mechanical Ventilator 06/08/18 16:00 98.4 87 13 105/48 (67) 98 06/08/18 15:58 88 06/08/18 15:29 92 14 35 06/08/18 15:00 86 12 130/51 (77) 97 06/08/18 15:00 95 13 121/56 (77) 97 06/08/18 14:00 86 12 130/51 (77) 97 06/08/18 13:00 86 13 137/68 (91) 99 06/08/18 12:58 88 12 95 Mechanical Ventilator 35 06/08/18 12:58 88 12 35 06/08/18 12:47 80 12 96 Mechanical Ventilator 35 06/08/18 12:00 98.5 81 12 140/100 (113) 96 06/08/18 12:00 35 06/08/18 12:00 Mechanical Ventilator 06/08/18 12:00 88 06/08/18 11:20 85 12 35 06/08/18 11:00 82 12 107/47 (67) 97 06/08/18 10:00 98 17 125/55 (78) 98 Status: awake Condition: critical HEENT: atraumatic Lungs: clear, chest wall tender Heart: HR/BP stable, regular Abdomen: non-tender, active bowel sounds, feeding tube Extremities: no C/C/E Decubiti: location Critical Care - Subjective ROS Limited/Unobtainable: Yes Condition: critical EKG Rhythm: Sinus Rhythm FI02: 35 Vent Support Breath Rate: 12 Vent Support Mode: AC Vent Tidal Volume: 500 Sputum Amount: Scant PEEP: 5.0 PIP: 29 Tube Feeding Amount: 45 I&O: Intake and Output 06/08/18 06/09/18 19:00 07:00 Intake Total 775 ml 555 ml Output Total 1020 ml 630 ml Balance -245 ml -75 ml Free Water 50 ml 60 ml IV Total 55 ml Tube Feeding 540 ml 495 ml Other 130 ml Output Urine Total 1020 ml 630 ml Stool Total 0 ml CXR: ET in good position Right sided haziness ET-Tube: 7.5 ET Position: 21 Labs: Laboratory Tests Test 06/09/18 04:00 White Blood Count 11.6 K/UL (4.8-10.8) H Red Blood Count 4.29 M/UL (4.20-5.40) Hemoglobin 9.7 G/DL (12.0-16.0) L Hematocrit 31.0 % (37.0-47.0) L Mean Corpuscular Volume 72 FL (80-99) L Mean Corpuscular Hemoglobin 22.5 PG (27.0-31.0) L Mean Corpuscular Hemoglobin Concent 31.2 G/DL (32.0-36.0) L Red Cell Distribution Width 17.9 % (11.6-14.8) H Platelet Count 283 K/UL (150-450) Mean Platelet Volume 8.0 FL (6.5-10.1) Neutrophils (%) (Auto) 73.0 % (45.0-75.0) Lymphocytes (%) (Auto) 17.4 % (20.0-45.0) L Monocytes (%) (Auto) 6.6 % (1.0-10.0) Eosinophils (%) (Auto) 2.4 % (0.0-3.0) Basophils (%) (Auto) 0.6 % (0.0-2.0) Sodium Level 143 MMOL/L (136-145) Potassium Level 4.2 MMOL/L (3.5-5.1) Chloride Level 100 MMOL/L (98-107) Carbon Dioxide Level 40 MMOL/L (21-32) H Anion Gap 3 mmol/L (5-15) L Blood Urea Nitrogen 45 mg/dL (7-18) H Creatinine 1.7 MG/DL (0.55-1.30) H Estimat Glomerular Filtration Rate mL/min (>60) Glucose Level 102 MG/DL (74-106) Calcium Level 9.2 MG/DL (8.5-10.1) Total Bilirubin 0.3 MG/DL (0.2-1.0) Aspartate Amino Transf (AST/SGOT) 22 U/L (15-37) Alanine Aminotransferase (ALT/SGPT) 25 U/L (12-78) Alkaline Phosphatase 77 U/L (46-116) Pro-B-Type Natriuretic Peptide 704 pg/mL (0-125) H Total Protein 6.4 G/DL (6.4-8.2) Albumin 2.3 G/DL (3.4-5.0) L Globulin 4.1 g/dL Albumin/Globulin Ratio 0.6 (1.0-2.7) L Yuliet Mariee MD Jun 09, 2018 09:54
--- NOTE | 2018-06-09 11:20 | Diagnostic Imaging Report ---
Indication: Dyspnea Comparison: 06/08/2018 A single view chest radiograph was obtained. Findings: Pulmonary edema demonstrated. Right pleural effusion suspected. Tubes and lines are satisfactory. Heart is enlarged. IMPRESSION: No change from the previous day
--- NOTE | 2018-06-09 11:37 | NUR ---
NURSE NOTES: Cleaned pt for small loose brown BM. Turned and repositioned pt. Will continue to monitor.
--- NOTE | 2018-06-09 13:31 | GI Progress Note ---
Assessment/Plan Problems: (1) Severe malnutrition ICD Codes: E43 - Unspecified severe protein-calorie malnutrition SNOMED: 14626532 (2) Dementia ICD Codes: F03.90 - Unspecified dementia without behavioral disturbance SNOMED: 00771480 (3) Confused ICD Codes: R41.0 - Disorientation, unspecified SNOMED: 325491791 (4) Encounter for PEG (percutaneous endoscopic gastrostomy) ICD Codes: Z43.1 - Encounter for attention to gastrostomy SNOMED: 425996774, 623187238 (5) Failure to thrive SNOMED: 03669211 (6) Acute encephalopathy ICD Codes: G93.40 - Encephalopathy, unspecified SNOMED: 0527524 Status: stable Status Narrative Discussed with Dr. Acevedo. Assessment/Plan Assessment - Resp failure - NGT dependent - COPD - CHF - PNA - Anemia - Poor prognosis -No plans for tracheostomy as of yet, patient has failed weening 4 times. Recommendations - NGT feeds, discussed with family regarding PEG placement. >> Will schedule if agrees . - Vent care - Elevated HOB - Monitor residuals - Abx - Pulmonary toilet -Follow labs The patient was seen and examined at bedside and all new and available data was reviewed in the patients chart. I agree with the above findings, impression and plan. (Patient seen earlier today. Signature stamp does not reflect patient encounter time.). - Jacobo Acevedo MD Subjective Subjective Limited Objective Last 24 Hour Vital Signs Date Time Temp Pulse Resp B/P (MAP) Pulse Ox O2 Delivery O2 Flow Rate FiO2 06/09/18 13:23 97 25 100 Mechanical Ventilator 35 06/09/18 13:22 91 22 35 06/09/18 13:06 91 21 98 Mechanical Ventilator 35 06/09/18 13:00 98.8 90 12 114/51 (72) 99 06/09/18 12:00 85 12 97/29 (51) 98 06/09/18 12:00 Mechanical Ventilator 06/09/18 12:00 35 06/09/18 11:00 93 13 108/58 (75) 97 06/09/18 10:42 95 15 35 06/09/18 10:00 81 13 118/53 (74) 95 06/09/18 09:00 91 17 126/59 (81) 99 06/09/18 08:41 90 111/49 06/09/18 08:25 86 12 35 06/09/18 08:22 96 06/09/18 08:00 98.2 93 14 129/63 (85) 98 06/09/18 08:00 Mechanical Ventilator 06/09/18 08:00 35 06/09/18 07:40 90 06/09/18 07:12 88 12 100 Mechanical Ventilator 35 06/09/18 07:00 81 13 129/63 (85) 96 06/09/18 07:00 88 14 96 Mechanical Ventilator 35 06/09/18 06:59 77 12 35 06/09/18 06:00 80 14 105/48 (67) 98 06/09/18 05:00 79 14 101/48 (65) 98 06/09/18 04:55 89 12 35 06/09/18 04:00 85 06/09/18 04:00 35 06/09/18 04:00 Mechanical Ventilator 06/09/18 04:00 98.4 85 14 120/48 (72) 98 06/09/18 03:00 85 12 110/47 (68) 97 06/09/18 02:42 87 12 35 06/09/18 02:00 88 12 120/47 (71) 97 06/09/18 01:10 101 20 100 Mechanical Ventilator 35 06/09/18 01:00 98 17 131/60 (83) 97 06/09/18 00:57 95 16 97 Mechanical Ventilator 35 06/09/18 00:56 97 16 35 06/09/18 00:00 35 06/09/18 00:00 98.8 94 13 120/50 (73) 97 06/09/18 00:00 94 06/09/18 00:00 Mechanical Ventilator 06/08/18 23:00 88 13 126/44 (71) 97 06/08/18 22:58 88 12 35 06/08/18 22:00 87 14 107/49 (68) 97 06/08/18 21:29 89 12 35 06/08/18 21:00 91 14 136/67 (90) 96 06/08/18 20:00 91 06/08/18 20:00 Mechanical Ventilator 06/08/18 20:00 98.0 91 14 120/70 (87) 97 06/08/18 19:50 12 14 98 Mechanical Ventilator 35 06/08/18 19:40 93 14 98 Mechanical Ventilator 35 06/08/18 19:40 93 14 35 06/08/18 19:00 94 12 101/41 (61) 97 06/08/18 19:00 94 16 127/56 (79) 98 06/08/18 18:00 94 16 127/56 (79) 98 06/08/18 17:39 98 131/51 06/08/18 17:10 94 17 35 06/08/18 17:00 93 16 120/58 (78) 96 06/08/18 16:00 35 06/08/18 16:00 Mechanical Ventilator 06/08/18 16:00 98.4 87 13 105/48 (67) 98 06/08/18 15:58 88 06/08/18 15:29 92 14 35 06/08/18 15:00 86 12 130/51 (77) 97 06/08/18 15:00 95 13 121/56 (77) 97 06/08/18 14:00 86 12 130/51 (77) 97 Intake and Output 06/08/18 06/09/18 19:00 07:00 Intake Total 775 ml 555 ml Output Total 1020 ml 630 ml Balance -245 ml -75 ml Free Water 50 ml 60 ml IV Total 55 ml Tube Feeding 540 ml 495 ml Other 130 ml Output Urine Total 1020 ml 630 ml Stool Total 0 ml Laboratory Tests Test 06/09/18 04:00 White Blood Count 11.6 K/UL (4.8-10.8) H Red Blood Count 4.29 M/UL (4.20-5.40) Hemoglobin 9.7 G/DL (12.0-16.0) L Hematocrit 31.0 % (37.0-47.0) L Mean Corpuscular Volume 72 FL (80-99) L Mean Corpuscular Hemoglobin 22.5 PG (27.0-31.0) L Mean Corpuscular Hemoglobin Concent 31.2 G/DL (32.0-36.0) L Red Cell Distribution Width 17.9 % (11.6-14.8) H Platelet Count 283 K/UL (150-450) Mean Platelet Volume 8.0 FL (6.5-10.1) Neutrophils (%) (Auto) 73.0 % (45.0-75.0) Lymphocytes (%) (Auto) 17.4 % (20.0-45.0) L Monocytes (%) (Auto) 6.6 % (1.0-10.0) Eosinophils (%) (Auto) 2.4 % (0.0-3.0) Basophils (%) (Auto) 0.6 % (0.0-2.0) Sodium Level 143 MMOL/L (136-145) Potassium Level 4.2 MMOL/L (3.5-5.1) Chloride Level 100 MMOL/L (98-107) Carbon Dioxide Level 40 MMOL/L (21-32) H Anion Gap 3 mmol/L (5-15) L Blood Urea Nitrogen 45 mg/dL (7-18) H Creatinine 1.7 MG/DL (0.55-1.30) H Estimat Glomerular Filtration Rate mL/min (>60) Glucose Level 102 MG/DL (74-106) Calcium Level 9.2 MG/DL (8.5-10.1) Total Bilirubin 0.3 MG/DL (0.2-1.0) Aspartate Amino Transf (AST/SGOT) 22 U/L (15-37) Alanine Aminotransferase (ALT/SGPT) 25 U/L (12-78) Alkaline Phosphatase 77 U/L (46-116) Pro-B-Type Natriuretic Peptide 704 pg/mL (0-125) H Total Protein 6.4 G/DL (6.4-8.2) Albumin 2.3 G/DL (3.4-5.0) L Globulin 4.1 g/dL Albumin/Globulin Ratio 0.6 (1.0-2.7) L Height (Feet): 5 Height (Inches): 4.00 Weight (Pounds): 120 General Appearance: WD/WN, no apparent distress, alert Cardiovascular: normal rate Respiratory/Chest: normal breath sounds, no respiratory distress Abdominal Exam: normal bowel sounds, non tender, soft Extremities: normal range of motion, non-tender Alber Rodriguez NP Jun 09, 2018 13:31
--- NOTE | 2018-06-09 13:52 | NUR ---
RD ASSESSMENT & RECOMMENDATIONS SEE CARE ACTIVITY FOR COMPLETE ASSESSMENT DAILY ESTIMATED NEEDS: Needs based on Critical care/ 54kg 22-28 kcals/kg 8345-3579 total kcals 1.2-2 g protein/kg 65-108 g total protein 25-30 mL/kg 1710-0189 total fluid mLs NUTRITION DIAGNOSIS: * Swallowing difficulty R/T dysphagia, respiratory status as evidenced by s/p intubation, on NGT feeds, w/ possibly pending PEG placement. CURRENT TF:Osmolite 1.5 @45ml/hr ENTERAL NUTRITION RECOMMENDATIONS: Osmolite 1.5 @ 40ml/hr x 24 hrs + Prosource 1pkt daily to provide 960ml, 1440kcal, 60g +11g prot, 731ml free water * Rec to lower goal rate to 40ml/hr + add Prosource 1pkt daily : meets 100% est kcal/prot needs * HOB over 30 degrees/ water flush per MD. --- * WITH ELEV BG-> REC TF CHANGE TO GLUCERNA 1.5, GOAL OF 40ML/HR X24 HRS. * Provides 1440kcal, 79g prot when at goal ADDITIONAL RECOMMENDATIONS: * CALIBRATED bedscale wt for accurate CBW- w/ added SPR mattress+ striker pump, freedom splint * Monitor lytes daily w/ TF, replete as needed * MONITOR BG / NEED FOR CARB CONTROL TF * Increase water flushes - Creat and BUN both trending up . .
--- NOTE | 2018-06-09 13:57 | General Progress Note ---
Assessment/Plan Problem List: (1) encephalopathy due to toxin (2) Dementia ICD Codes: F03.90 - Unspecified dementia without behavioral disturbance SNOMED: 98902458 Assessment/Plan dc ativan seroquel 25mg q 6hr prn cont restraints. haldol im Subjective Allergies: Coded Allergies: Mushroom (Verified Allergy, Severe, 05/28/18) MORPHINE (Unverified Allergy, Intermediate, Itching, 01/04/15) PENICILLINS (Unverified Allergy, Intermediate, Hives, 01/04/15) CELECOXIB (Verified Allergy, Mild, 01/15/09) Subjective agitated waxing and waning of consciousness confused Objective Last 24 Hour Vital Signs Date Time Temp Pulse Resp B/P (MAP) Pulse Ox O2 Delivery O2 Flow Rate FiO2 06/09/18 13:23 97 25 100 Mechanical Ventilator 35 06/09/18 13:22 91 22 35 06/09/18 13:06 91 21 98 Mechanical Ventilator 35 06/09/18 13:00 98.8 90 12 114/51 (72) 99 06/09/18 12:00 85 12 97/29 (51) 98 06/09/18 12:00 Mechanical Ventilator 06/09/18 12:00 35 06/09/18 11:50 90 06/09/18 11:00 93 13 108/58 (75) 97 06/09/18 10:42 95 15 35 06/09/18 10:00 81 13 118/53 (74) 95 06/09/18 09:00 91 17 126/59 (81) 99 06/09/18 08:41 90 111/49 06/09/18 08:25 86 12 35 06/09/18 08:22 96 06/09/18 08:00 98.2 93 14 129/63 (85) 98 06/09/18 08:00 Mechanical Ventilator 06/09/18 08:00 35 06/09/18 07:40 90 06/09/18 07:12 88 12 100 Mechanical Ventilator 35 06/09/18 07:00 81 13 129/63 (85) 96 06/09/18 07:00 88 14 96 Mechanical Ventilator 35 06/09/18 06:59 77 12 35 06/09/18 06:00 80 14 105/48 (67) 98 06/09/18 05:00 79 14 101/48 (65) 98 06/09/18 04:55 89 12 35 06/09/18 04:00 85 06/09/18 04:00 35 06/09/18 04:00 Mechanical Ventilator 06/09/18 04:00 98.4 85 14 120/48 (72) 98 06/09/18 03:00 85 12 110/47 (68) 97 06/09/18 02:42 87 12 35 06/09/18 02:00 88 12 120/47 (71) 97 06/09/18 01:10 101 20 100 Mechanical Ventilator 35 06/09/18 01:00 98 17 131/60 (83) 97 06/09/18 00:57 95 16 97 Mechanical Ventilator 35 06/09/18 00:56 97 16 35 06/09/18 00:00 35 06/09/18 00:00 98.8 94 13 120/50 (73) 97 06/09/18 00:00 94 06/09/18 00:00 Mechanical Ventilator 06/08/18 23:00 88 13 126/44 (71) 97 06/08/18 22:58 88 12 35 06/08/18 22:00 87 14 107/49 (68) 97 06/08/18 21:29 89 12 35 06/08/18 21:00 91 14 136/67 (90) 96 06/08/18 20:00 91 06/08/18 20:00 Mechanical Ventilator 06/08/18 20:00 98.0 91 14 120/70 (87) 97 06/08/18 19:50 12 14 98 Mechanical Ventilator 35 06/08/18 19:40 93 14 98 Mechanical Ventilator 35 06/08/18 19:40 93 14 35 06/08/18 19:00 94 12 101/41 (61) 97 06/08/18 19:00 94 16 127/56 (79) 98 06/08/18 18:00 94 16 127/56 (79) 98 06/08/18 17:39 98 131/51 06/08/18 17:10 94 17 35 06/08/18 17:00 93 16 120/58 (78) 96 06/08/18 16:00 35 06/08/18 16:00 Mechanical Ventilator 06/08/18 16:00 98.4 87 13 105/48 (67) 98 06/08/18 15:58 88 06/08/18 15:29 92 14 35 06/08/18 15:00 86 12 130/51 (77) 97 06/08/18 15:00 95 13 121/56 (77) 97 06/08/18 14:00 86 12 130/51 (77) 97 Intake and Output 06/08/18 06/09/18 19:00 07:00 Intake Total 775 ml 555 ml Output Total 1020 ml 630 ml Balance -245 ml -75 ml Free Water 50 ml 60 ml IV Total 55 ml Tube Feeding 540 ml 495 ml Other 130 ml Output Urine Total 1020 ml 630 ml Stool Total 0 ml Laboratory Tests 06/09/18 04:00: White Blood Count 11.6H, Red Blood Count 4.29, Hemoglobin 9.7L, Hematocrit 31.0L , Mean Corpuscular Volume 72L, Mean Corpuscular Hemoglobin 22.5L, Mean Corpuscular Hemoglobin Concent 31.2L, Red Cell Distribution Width 17.9H, Platelet Count 283, Mean Platelet Volume 8.0, Neutrophils (%) (Auto) 73.0, Lymphocytes (%) (Auto) 17.4L, Monocytes (%) (Auto) 6.6, Eosinophils (%) (Auto) 2.4, Basophils (%) (Auto) 0.6, Sodium Level 143, Potassium Level 4.2, Chloride Level 100, Carbon Dioxide Level 40H, Anion Gap 3L, Blood Urea Nitrogen 45H, Creatinine 1.7H, Estimat Glomerular Filtration Rate , Glucose Level 102, Calcium Level 9.2, Total Bilirubin 0.3, Aspartate Amino Transf (AST/SGOT) 22, Alanine Aminotransferase (ALT/SGPT) 25, Alkaline Phosphatase 77, Pro-B-Type Natriuretic Peptide 704H, Total Protein 6.4, Albumin 2.3L, Globulin 4.1, Albumin /Globulin Ratio 0.6L Height (Feet): 5 Height (Inches): 4.00 Weight (Pounds): 120 General Appearance: lethargic, confused, agitated Liz Lo MD Jun 09, 2018 13:57
--- NOTE | 2018-06-09 14:00 | NUR ---
NURSE NOTES: Dr Lo here to see the patient. Updated her with pt's current condition. Pt is resting in bed. No acute distress noted. Continue to be on bilateral soft wrist restraints. Will continue to monitor.
--- NOTE | 2018-06-09 15:05 | Nephrology Progress Note ---
Assessment/Plan Problem List: (1) Urinary outflow obstruction Assessment: resolved after grewal (2) Acute respiratory failure (3) Dementia (4) Afib Assessment Urinary out let obstruction, relieved after grewal Normal serum Cr Anemia, Low MCV High Ca corrected for low ALbumin other conditions: (1) Acute respiratory failure (2) Aspiration pneumonia (3) Acute encephalopathy (4) Pleural effusion (5) COPD (chronic obstructive pulmonary disease) (6) CAD (coronary artery disease) (7) Dementia Plan vent management- weanings failing K and Phos and Mag as needed slow Hydrate Anemia porter Adjust BP meds fu Lytes Gastric support pulm support- not tolerating bipap consider tube feeding ( PEG) as po is POOR Subjective ROS Limited/Unobtainable: Yes Objective Objective Last 24 Hour Vital Signs Date Time Temp Pulse Resp B/P (MAP) Pulse Ox O2 Delivery O2 Flow Rate FiO2 06/09/18 14:59 95 19 35 06/09/18 14:00 85 12 97/29 (51) 98 06/09/18 14:00 94 14 112/54 (73) 98 06/09/18 13:23 97 25 100 Mechanical Ventilator 35 06/09/18 13:22 91 22 35 06/09/18 13:06 91 21 98 Mechanical Ventilator 35 06/09/18 13:00 98.8 90 12 114/51 (72) 99 06/09/18 12:00 85 12 97/29 (51) 98 06/09/18 12:00 Mechanical Ventilator 06/09/18 12:00 35 06/09/18 11:50 90 06/09/18 11:00 93 13 108/58 (75) 97 06/09/18 10:42 95 15 35 06/09/18 10:00 81 13 118/53 (74) 95 06/09/18 09:00 91 17 126/59 (81) 99 06/09/18 08:41 90 111/49 06/09/18 08:25 86 12 35 06/09/18 08:22 96 06/09/18 08:00 98.2 93 14 129/63 (85) 98 06/09/18 08:00 Mechanical Ventilator 06/09/18 08:00 35 06/09/18 07:40 90 06/09/18 07:12 88 12 100 Mechanical Ventilator 35 06/09/18 07:00 81 13 129/63 (85) 96 2/7/19 07:00 88 14 96 Mechanical Ventilator 35 06/09/18 06:59 77 12 35 06/09/18 06:00 80 14 105/48 (67) 98 06/09/18 05:00 79 14 101/48 (65) 98 06/09/18 04:55 89 12 35 06/09/18 04:00 85 06/09/18 04:00 35 06/09/18 04:00 Mechanical Ventilator 06/09/18 04:00 98.4 85 14 120/48 (72) 98 06/09/18 03:00 85 12 110/47 (68) 97 06/09/18 02:42 87 12 35 06/09/18 02:00 88 12 120/47 (71) 97 06/09/18 01:10 101 20 100 Mechanical Ventilator 35 06/09/18 01:00 98 17 131/60 (83) 97 06/09/18 00:57 95 16 97 Mechanical Ventilator 35 06/09/18 00:56 97 16 35 06/09/18 00:00 35 06/09/18 00:00 98.8 94 13 120/50 (73) 97 06/09/18 00:00 94 06/09/18 00:00 Mechanical Ventilator 06/08/18 23:00 88 13 126/44 (71) 97 06/08/18 22:58 88 12 35 06/08/18 22:00 87 14 107/49 (68) 97 06/08/18 21:29 89 12 35 06/08/18 21:00 91 14 136/67 (90) 96 06/08/18 20:00 91 06/08/18 20:00 Mechanical Ventilator 06/08/18 20:00 98.0 91 14 120/70 (87) 97 06/08/18 19:50 12 14 98 Mechanical Ventilator 35 06/08/18 19:40 93 14 98 Mechanical Ventilator 35 06/08/18 19:40 93 14 35 06/08/18 19:00 94 12 101/41 (61) 97 06/08/18 19:00 94 16 127/56 (79) 98 06/08/18 18:00 94 16 127/56 (79) 98 06/08/18 17:39 98 131/51 06/08/18 17:10 94 17 35 06/08/18 17:00 93 16 120/58 (78) 96 06/08/18 16:00 35 06/08/18 16:00 Mechanical Ventilator 06/08/18 16:00 98.4 87 13 105/48 (67) 98 06/08/18 15:58 88 06/08/18 15:29 92 14 35 Intake and Output 06/08/18 06/09/18 19:00 07:00 Intake Total 775 ml 555 ml Output Total 1020 ml 630 ml Balance -245 ml -75 ml Free Water 50 ml 60 ml IV Total 55 ml Tube Feeding 540 ml 495 ml Other 130 ml Output Urine Total 1020 ml 630 ml Stool Total 0 ml Laboratory Tests 06/09/18 04:00: White Blood Count 11.6H, Red Blood Count 4.29, Hemoglobin 9.7L, Hematocrit 31.0L , Mean Corpuscular Volume 72L, Mean Corpuscular Hemoglobin 22.5L, Mean Corpuscular Hemoglobin Concent 31.2L, Red Cell Distribution Width 17.9H, Platelet Count 283, Mean Platelet Volume 8.0, Neutrophils (%) (Auto) 73.0, Lymphocytes (%) (Auto) 17.4L, Monocytes (%) (Auto) 6.6, Eosinophils (%) (Auto) 2.4, Basophils (%) (Auto) 0.6, Sodium Level 143, Potassium Level 4.2, Chloride Level 100, Carbon Dioxide Level 40H, Anion Gap 3L, Blood Urea Nitrogen 45H, Creatinine 1.7H, Estimat Glomerular Filtration Rate , Glucose Level 102, Calcium Level 9.2, Total Bilirubin 0.3, Aspartate Amino Transf (AST/SGOT) 22, Alanine Aminotransferase (ALT/SGPT) 25, Alkaline Phosphatase 77, Pro-B-Type Natriuretic Peptide 704H, Total Protein 6.4, Albumin 2.3L, Globulin 4.1, Albumin /Globulin Ratio 0.6L Height (Feet): 5 Height (Inches): 4.00 Weight (Pounds): 120 EENT: other - vented Cardiovascular: tachycardia Respiratory/Chest: decreased breath sounds Abdomen: soft Kendrick Jimenez MD Jun 09, 2018 15:05
--- NOTE | 2018-06-09 16:19 | NUR ---
NURSE NOTES: Turned and repositioned pt. No acute distress noted. Pt is awake, alert, and resting in bed. Oral care done. Afebrile. Will continue to monitor. Dr Sandhu here to see the patient.
--- NOTE | 2018-06-09 17:10 | Cardiology Progress Note ---
Assessment/Plan Assessment/Plan COPD, congestive heart failure, atrial fibrillation sinus tachy agitation right lung collapse? anemia intubeted chest pt dvt ppx all trop neg cr is stable hgb trending down is npo off ivf off diuretic as elelvate co2 adn cr Subjective Subjective on a vent in the icu no family at bedside p respond with head gestures Objective Last 24 Hour Vital Signs Date Time Temp Pulse Resp B/P (MAP) Pulse Ox O2 Delivery O2 Flow Rate FiO2 06/09/18 16:00 94 15 116/53 (74) 98 06/09/18 16:00 Mechanical Ventilator 06/09/18 16:00 35 06/09/18 16:00 102 23 138/55 (82) 99 06/09/18 15:54 95 06/09/18 15:00 102 23 138/55 (82) 99 06/09/18 14:59 95 19 35 06/09/18 14:00 85 12 97/29 (51) 98 06/09/18 14:00 94 14 112/54 (73) 98 06/09/18 13:23 97 25 100 Mechanical Ventilator 35 06/09/18 13:22 91 22 35 06/09/18 13:06 91 21 98 Mechanical Ventilator 35 06/09/18 13:00 98.8 90 12 114/51 (72) 99 06/09/18 12:00 85 12 97/29 (51) 98 06/09/18 12:00 Mechanical Ventilator 06/09/18 12:00 35 06/09/18 11:50 90 06/09/18 11:00 93 13 108/58 (75) 97 06/09/18 10:42 95 15 35 06/09/18 10:00 81 13 118/53 (74) 95 06/09/18 09:00 91 17 126/59 (81) 99 06/09/18 08:41 90 111/49 06/09/18 08:25 86 12 35 06/09/18 08:22 96 06/09/18 08:00 98.2 93 14 129/63 (85) 98 06/09/18 08:00 Mechanical Ventilator 06/09/18 08:00 35 06/09/18 07:40 90 06/09/18 07:12 88 12 100 Mechanical Ventilator 35 06/09/18 07:00 81 13 129/63 (85) 96 06/09/18 07:00 88 14 96 Mechanical Ventilator 35 06/09/18 06:59 77 12 35 06/09/18 06:00 80 14 105/48 (67) 98 06/09/18 05:00 79 14 101/48 (65) 98 06/09/18 04:55 89 12 35 06/09/18 04:00 85 06/09/18 04:00 35 06/09/18 04:00 Mechanical Ventilator 06/09/18 04:00 98.4 85 14 120/48 (72) 98 06/09/18 03:00 85 12 110/47 (68) 97 06/09/18 02:42 87 12 35 06/09/18 02:00 88 12 120/47 (71) 97 06/09/18 01:10 101 20 100 Mechanical Ventilator 35 06/09/18 01:00 98 17 131/60 (83) 97 06/09/18 00:57 95 16 97 Mechanical Ventilator 35 06/09/18 00:56 97 16 35 06/09/18 00:00 35 06/09/18 00:00 98.8 94 13 120/50 (73) 97 06/09/18 00:00 94 06/09/18 00:00 Mechanical Ventilator 06/08/18 23:00 88 13 126/44 (71) 97 06/08/18 22:58 88 12 35 06/08/18 22:00 87 14 107/49 (68) 97 06/08/18 21:29 89 12 35 06/08/18 21:00 91 14 136/67 (90) 96 06/08/18 20:00 91 06/08/18 20:00 Mechanical Ventilator 06/08/18 20:00 98.0 91 14 120/70 (87) 97 06/08/18 19:50 12 14 98 Mechanical Ventilator 35 06/08/18 19:40 93 14 98 Mechanical Ventilator 35 06/08/18 19:40 93 14 35 06/08/18 19:00 94 12 101/41 (61) 97 06/08/18 19:00 94 16 127/56 (79) 98 06/08/18 18:00 94 16 127/56 (79) 98 06/08/18 17:39 98 131/51 06/08/18 17:10 94 17 35 General Appearance: no apparent distress, alert, on vent, patient on isolation Intake and Output 06/08/18 06/09/18 19:00 07:00 Intake Total 775 ml 555 ml Output Total 1020 ml 630 ml Balance -245 ml -75 ml Free Water 50 ml 60 ml IV Total 55 ml Tube Feeding 540 ml 495 ml Other 130 ml Output Urine Total 1020 ml 630 ml Stool Total 0 ml Laboratory Tests Test 06/09/18 04:00 White Blood Count 11.6 K/UL (4.8-10.8) H Red Blood Count 4.29 M/UL (4.20-5.40) Hemoglobin 9.7 G/DL (12.0-16.0) L Hematocrit 31.0 % (37.0-47.0) L Mean Corpuscular Volume 72 FL (80-99) L Mean Corpuscular Hemoglobin 22.5 PG (27.0-31.0) L Mean Corpuscular Hemoglobin Concent 31.2 G/DL (32.0-36.0) L Red Cell Distribution Width 17.9 % (11.6-14.8) H Platelet Count 283 K/UL (150-450) Mean Platelet Volume 8.0 FL (6.5-10.1) Neutrophils (%) (Auto) 73.0 % (45.0-75.0) Lymphocytes (%) (Auto) 17.4 % (20.0-45.0) L Monocytes (%) (Auto) 6.6 % (1.0-10.0) Eosinophils (%) (Auto) 2.4 % (0.0-3.0) Basophils (%) (Auto) 0.6 % (0.0-2.0) Sodium Level 143 MMOL/L (136-145) Potassium Level 4.2 MMOL/L (3.5-5.1) Chloride Level 100 MMOL/L (98-107) Carbon Dioxide Level 40 MMOL/L (21-32) H Anion Gap 3 mmol/L (5-15) L Blood Urea Nitrogen 45 mg/dL (7-18) H Creatinine 1.7 MG/DL (0.55-1.30) H Estimat Glomerular Filtration Rate mL/min (>60) Glucose Level 102 MG/DL (74-106) Calcium Level 9.2 MG/DL (8.5-10.1) Total Bilirubin 0.3 MG/DL (0.2-1.0) Aspartate Amino Transf (AST/SGOT) 22 U/L (15-37) Alanine Aminotransferase (ALT/SGPT) 25 U/L (12-78) Alkaline Phosphatase 77 U/L (46-116) Pro-B-Type Natriuretic Peptide 704 pg/mL (0-125) H Total Protein 6.4 G/DL (6.4-8.2) Albumin 2.3 G/DL (3.4-5.0) L Globulin 4.1 g/dL Albumin/Globulin Ratio 0.6 (1.0-2.7) L Geoffrey Sandhu MD Jun 09, 2018 17:10
--- NOTE | 2018-06-09 18:05 | NUR ---
NURSE NOTES: Cleaned pt for another moderate loose brown BM. Turned and repositioned pt. No acute distress noted. Will continue to monitor.
--- NOTE | 2018-06-09 19:20 | NUR ---
HAND-OFF: Report given to MARGY Moscoso.
--- NOTE | 2018-06-09 19:30 | NUR ---
NURSE NOTES:Rerceived pt awake and alert, orally intubated on ac mode, bilateral soft wrist restraints on maintained for safety to avoid self extubation.Pt NSR on the monitor, Bp stable.afebrile, Left arm with 1-2+ edema elevated with pillow Sinclair to gravity with elver yellow urine adequate in amt. Monitor I and O. Monitor lytes.Will continue to monitor.
--- NOTE | 2018-06-09 20:00 | NUR ---
NURSE NOTES:Complete bath with bed change done.
[2018-06-09] MEDS: Dyna-Hex 2% Top Sol 2oz TOPIC SCH (20:43)
--- NOTE | 2018-06-09 20:44 | NUR ---
HAND-OFF: Report given to Alicia Wu
--- NOTE | 2018-06-09 20:47 | NUR ---
NURSE NOTES: Received report from MARGY Roblero.
--- NOTE | 2018-06-09 20:50 | NUR ---
NURSE NOTES: Pt is awake and oriented to name. Pt gets agitated at times. On bilateral soft wrist restraints. 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 ETT 7.5/ 21cm at level. AC 12, TV 500, FiO2 35%, P 5. O2 sat 100% No respiratory distress noted. Right NGT in place receiving Osmolite 1.5 at 45cc/hr. No residual noted. Sinclair in place draining to gravity. Right UA PICC patent and asymptomatic. Bed in lowest position. Will continue plan of care.
[2018-06-09] MEDS ORDERED: Acetylcysteine 20% Soln 4ml HHN SCH (21:30)
--- NOTE | 2018-06-09 21:44 | NUR ---
NURSE NOTES: Seen and examined by Dr. Lee with new order noted and carried out. MD ordered stat ABG will call MD for the result.
--- NOTE | 2018-06-09 21:44 | General Progress Note ---
Assessment/Plan Status: not improved Assessment/Plan This is an 87-year-old female admitted with chronic obstructive pulmonary disease exacerbation, right lower lobe infiltrate/pneumonia with altered mental status and acute kidney injury. The patient will be admitted to [facility] with the following medical problems. 1. Chronic obstructive pulmonary disease exacerbation and pneumonia. The patient has been seen by Pulmonary. Infectious Disease has been consulted, pancultured. IV antibiotics per ID. Continue with BiPAP and suction p.r.n. Transition to Venturi-mask when stable. 2. Acute kidney injury. We will monitor I's and O's, gentle intravenous fluids. Repeat a BMP in a.m. Consider Nephrology consult. 3. History of chronic atrial fibrillation. Continue with amiodarone. The patient is in sinus rhythm at this time. 4. History of hypertension. Continue with amlodipine and hold for systolic blood pressure less than 110. 5. Altered mental status, most likely from above conditions. We will keep n.p.o. except for medications and start IV fluids. 6. DVT prophylaxis with heparin subcutaneous and SCDs. 7. The patient is Full Code per policy. We will discuss with the family. 8. hypokalmia 9. Anemia 10. CHf acute on chronic 11. leucocytosis 12. respiratory alkalosis Plan: - now in ICU on VENT support - continue present care - iV antibioitics and fluids - NGT placed for nutrition - monitor lights patient is full code per family's wish discussed with ICU nurse - wean off vent per ICU team no plan for PEG at this time - weaning off vent in progress - will order stat ABG now as no ABG today, - lasix 20 mg IV daily for pulmonary edema - diamox 250 mg bid for 3 days - add mucomyst HHN - change Duoneb HHN to q 4 discussed with ICU nurse disucssed with Dr. Mariee discussed with Dr. Sandhu discussed with family at length Subjective Date patient seen: Jun 09, 2018 ROS Limited/Unobtainable: Yes Allergies: Coded Allergies: Mushroom (Verified Allergy, Severe, 05/28/18) MORPHINE (Unverified Allergy, Intermediate, Itching, 01/04/15) PENICILLINS (Unverified Allergy, Intermediate, Hives, 01/04/15) CELECOXIB (Verified Allergy, Mild, 01/15/09) Subjective patient with acute respiratory failure continues to remain intubated in ICU, weaning started today Objective Last 24 Hour Vital Signs Date Time Temp Pulse Resp B/P (MAP) Pulse Ox O2 Delivery O2 Flow Rate FiO2 06/09/18 21:00 93 13 107/59 (75) 99 06/09/18 20:00 98.4 98 18 121/59 (79) 99 06/09/18 20:00 35 06/09/18 20:00 Mechanical Ventilator 06/09/18 20:00 98 06/09/18 19:37 88 12 100 Mechanical Ventilator 35 06/09/18 19:27 88 13 100 Mechanical Ventilator 35 06/09/18 19:10 91 12 35 06/09/18 19:00 91 13 111/57 (75) 99 06/09/18 18:00 89 14 136/68 (90) 100 06/09/18 17:27 90 134/65 06/09/18 17:16 92 12 35 06/09/18 17:00 98.0 91 14 134/65 (88) 100 06/09/18 16:00 94 15 116/53 (74) 98 06/09/18 16:00 Mechanical Ventilator 06/09/18 16:00 35 06/09/18 16:00 102 23 138/55 (82) 99 06/09/18 15:54 95 06/09/18 15:00 102 23 138/55 (82) 99 06/09/18 14:59 95 19 35 06/09/18 14:00 85 12 97/29 (51) 98 06/09/18 14:00 94 14 112/54 (73) 98 06/09/18 13:23 97 25 100 Mechanical Ventilator 35 06/09/18 13:22 91 22 35 06/09/18 13:06 91 21 98 Mechanical Ventilator 35 06/09/18 13:00 98.8 90 12 114/51 (72) 99 06/09/18 12:00 85 12 97/29 (51) 98 06/09/18 12:00 Mechanical Ventilator 06/09/18 12:00 35 06/09/18 11:50 90 06/09/18 11:00 93 13 108/58 (75) 97 06/09/18 10:42 95 15 35 06/09/18 10:00 81 13 118/53 (74) 95 06/09/18 09:00 91 17 126/59 (81) 99 2/7/19 08:41 90 111/49 06/09/18 08:25 86 12 35 06/09/18 08:22 96 06/09/18 08:00 98.2 93 14 129/63 (85) 98 06/09/18 08:00 Mechanical Ventilator 06/09/18 08:00 35 06/09/18 07:40 90 06/09/18 07:12 88 12 100 Mechanical Ventilator 35 06/09/18 07:00 81 13 129/63 (85) 96 06/09/18 07:00 88 14 96 Mechanical Ventilator 35 06/09/18 06:59 77 12 35 06/09/18 06:00 80 14 105/48 (67) 98 06/09/18 05:00 79 14 101/48 (65) 98 06/09/18 04:55 89 12 35 06/09/18 04:00 85 06/09/18 04:00 35 06/09/18 04:00 Mechanical Ventilator 06/09/18 04:00 98.4 85 14 120/48 (72) 98 06/09/18 03:00 85 12 110/47 (68) 97 06/09/18 02:42 87 12 35 06/09/18 02:00 88 12 120/47 (71) 97 06/09/18 01:10 101 20 100 Mechanical Ventilator 35 06/09/18 01:00 98 17 131/60 (83) 97 06/09/18 00:57 95 16 97 Mechanical Ventilator 35 06/09/18 00:56 97 16 35 06/09/18 00:00 35 06/09/18 00:00 98.8 94 13 120/50 (73) 97 06/09/18 00:00 94 06/09/18 00:00 Mechanical Ventilator 06/08/18 23:00 88 13 126/44 (71) 97 06/08/18 22:58 88 12 35 06/08/18 22:00 87 14 107/49 (68) 97 Intake and Output 06/08/18 06/09/18 18:59 06:59 Intake Total 775 ml 555 ml Output Total 1110 ml 480 ml Balance -335 ml 75 ml Free Water 50 ml 60 ml IV Total 55 ml Tube Feeding 540 ml 495 ml Other 130 ml Output Urine Total 1110 ml 480 ml Stool Total 0 ml Laboratory Tests 06/09/18 04:00: White Blood Count 11.6H, Red Blood Count 4.29, Hemoglobin 9.7L, Hematocrit 31.0L , Mean Corpuscular Volume 72L, Mean Corpuscular Hemoglobin 22.5L, Mean Corpuscular Hemoglobin Concent 31.2L, Red Cell Distribution Width 17.9H, Platelet Count 283, Mean Platelet Volume 8.0, Neutrophils (%) (Auto) 73.0, Lymphocytes (%) (Auto) 17.4L, Monocytes (%) (Auto) 6.6, Eosinophils (%) (Auto) 2.4, Basophils (%) (Auto) 0.6, Sodium Level 143, Potassium Level 4.2, Chloride Level 100, Carbon Dioxide Level 40H, Anion Gap 3L, Blood Urea Nitrogen 45H, Creatinine 1.7H, Estimat Glomerular Filtration Rate , Glucose Level 102, Calcium Level 9.2, Total Bilirubin 0.3, Aspartate Amino Transf (AST/SGOT) 22, Alanine Aminotransferase (ALT/SGPT) 25, Alkaline Phosphatase 77, Pro-B-Type Natriuretic Peptide 704H, Total Protein 6.4, Albumin 2.3L, Globulin 4.1, Albumin /Globulin Ratio 0.6L Height (Feet): 5 Height (Inches): 4.00 Weight (Pounds): 120 General Appearance: no apparent distress, alert, mild distress EENT: PERRL/EOMI, pharynx normal Neck: non-tender, supple Cardiovascular: normal rate, regular rhythm, no gallop/murmur, no JVD Respiratory/Chest: crackles/rales Abdomen: normal bowel sounds Extremities: non-tender, normal inspection, no calf tenderness Edema: 1+ Arm (L), 1+ Arm (R), 1+ Leg (L), 1+ Leg (R), 1+ Pedal (L), 1+ Pedal ( R), 1+ Generalized Edema: trace edema 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
[2018-06-09] MEDS: Miralax 17gm pkt ORAL SCH (22:26)
--- NOTE | 2018-06-09 22:41 | NUR ---
NURSE NOTES: stat ABG done results PH 7.463, PC02 54.5, p02 83.9, HC03 38.2, 02 saturation 95.9, ABG base excess 12.6 Dr. Valderrama made aware.
[2018-06-09] MEDS: Acetylcysteine 20% Soln 4ml HHN SCH (23:25)
[2018-06-10] VITALS (26 sets, daily range): BP systolic 87–137; BP diastolic 41–73
--- NOTE | 2018-06-10 | NUR ---
NURSE NOTES: Repositioned. Oral care provided. HHN given By RT. HOB elevated. Sinclair draining 400cc clear elver urine output from [id number] after Lasix. Kept clean and dry.
--- NOTE | 2018-06-10 02:13 | NUR ---
NURSE NOTES: Patient with episode of anxiety talk therapy provided, repositioned, pull up in bed, not effective. Seroquel 25mg tab via GT given. will continue to monitor patient.
[2018-06-10] MEDS: Acetylcysteine 20% Soln 4ml HHN SCH ×6 (03:17→22:56)
[2018-06-10] MEDS: Albuterol/Ipratropium 3ml neb HHN SCH ×6 (03:17→22:55)
--- NOTE | 2018-06-10 04:13 | NUR ---
NURSE NOTES: Patient with on and off trying to slide down from bed pull up patient back to semi lopes position. HOB elevated. Encouraged patient to verbalize needs, fears and feelings to staff. Talk therapy provided. Repositioned, clean patient. Will continue to monitor patient. Bilateral soft wrist restraint checked Q2HR.
[2018-06-10 05:54] LABS: BASOPHILS % (AUTO) 1.1 % (0.0-2.0); EOSINOPHILS % (AUTO) 2.3 % (0.0-3.0); HEMOGLOBIN 9.8 G/DL (12.0-16.0); LYMPHOCYTES % (AUTO) 17.9 % (20.0-45.0); MEAN CORPUSCULAR VOLUME 73 FL (80-99); MONOCYTES % (AUTO) 8.6 % (1.0-10.0); NEUTROPHILS % (AUTO) 70.1 % (45.0-75.0); PLATELET COUNT 314 K/UL (150-450); RED BLOOD COUNT 4.26 M/UL (4.20-5.40); RED CELL DISTRIBUTION WIDTH 17.7 % (11.6-14.8); WHITE BLOOD COUNT 10.6 K/UL (4.8-10.8)
--- NOTE | 2018-06-10 06:00 | NUR ---
NURSE NOTES: Patient sleeping in bed no s/s of acute distress noted. Turned and repositioned pt. No acute distress noted. Oral care done.
[2018-06-10 06:20] LABS: ALANINE AMINOTRANSFERASE 27 U/L (12-78); ALBUMIN 2.3 G/DL (3.4-5.0); ALBUMIN/GLOBULIN RATIO 0.5 (1.0-2.7); ALKALINE PHOSPHATASE 83 U/L (46-116); ANION GAP 3 mmol/L (5-15); ASPARTATE AMINO TRANSFERASE 21 U/L (15-37); BILIRUBIN,TOTAL 0.3 MG/DL (0.2-1.0); BLOOD UREA NITROGEN 47 mg/dL (7-18); CALCIUM 9.1 MG/DL (8.5-10.1); CARBON DIOXIDE 38 MMOL/L (21-32); CHLORIDE 101 MMOL/L (98-107); CREATININE 1.8 MG/DL (0.55-1.30); PHOSPHORUS 4.6 MG/DL (2.5-4.9); POTASSIUM 3.8 MMOL/L (3.5-5.1); SODIUM 142 MMOL/L (136-145)
--- NOTE | 2018-06-10 07:11 | NUR ---
RESPIRATORY NOTE: Received pt on AC 12, 500VT, 35%, PEEP +5. Pt intubated w/ ETT 7.5 @ 21cm lipline, secured by anchorfast. Pt is resting comfortably, and riding the vent, no attempt to breath by herself. Both hands on soft-restraints to prevent self-extubation. B/S brad wheezes, sxn small amounts of thin white-ramirez secretions without incidents, breathing Tx Duoneb and Mucomyst 1ml given with no adverse reactions. Vent plugged into red outlet, ambubag at bedside, alarms are set and audible. Vent circuit and Sx tubbing secure and out of the way to prevent pt grabbing the tubbing. Pt is in no apparent distress at this time. Will continue to monitor pt.
--- NOTE | 2018-06-10 07:27 | NUR ---
HAND-OFF: Report given to MARGY Bishop.
--- NOTE | 2018-06-10 07:38 | NUR ---
NURSE NOTES: Report received from MARGY Vargas
--- NOTE | 2018-06-10 08:00 | NUR ---
NURSE NOTES: Pt asleep when received. No acute distress noted.Afebrile at this ti,e and oraaly intubated with ETT 7.5 at level. AC 12, TV 500, FiO2 35%, P 5. O2 sat 100% .On bilateral soft wrist restraints with no skin impairment. Right UA PICC patent and asymptomatic with TKO. NGT right nares feeding in place with placement intact running Osmolite 1.5 at 45cc/hr. No residual noted at this time.Abdomen soft and non distended. Sinclair in place draining clear yellow urine with no apparent sediment. Will continue to monitor.
[2018-06-10] MEDS: Cefepime HCl 1 GM in D5W 55 ML IV SCH (08:28)
[2018-06-10] MEDS: Pantoprazole Inj IV SCH (08:29)
--- NOTE | 2018-06-10 08:30 | NUR ---
NURSE NOTES: Patient placed on CPAP PS 12 and deep breathing exercises teaching provided.Family at bedside.Seen by Dr Mariee, will follow up with new order.
--- NOTE | 2018-06-10 08:30 | NUR ---
RESPIRATORY NOTE: Placed pt on CPAP-12- 35%FiO2, peep of 5 per weaning order. Family members at bedside, helps to translate and encourages pt to breathing herself. Pt's calm, tolerating well CPAP, no SOB or resp distress noted. ABG in 1 hour. Will continue to monitor pt.
[2018-06-10] MEDS: Amiodarone 200mg tab ORAL SCH (08:32)
[2018-06-10] MEDS: Heparin 5000 units/ml inj SUBQ SCH ×2 (08:41→21:01)
--- NOTE | 2018-06-10 08:49 | NUR ---
RADIOLOGY DEPT CHEST X-RAY DONE.-P.DYE
--- NOTE | 2018-06-10 08:53 | Pulmonolgy Critical Care Note ---
Critical Care - Asmt/Plan Problems: (1) Acute respiratory failure (2) Aspiration pneumonia (3) Acute encephalopathy (4) Pleural effusion (5) COPD (chronic obstructive pulmonary disease) (6) CAD (coronary artery disease) (7) Dementia Respiratory: adjust tidal volume, monitor respiratory rate, adjust FIO2, CXR, weaning trial, other Cardiac: continue to monitor HR/BP Renal: F/U I&O Infectious Disease: check cultures, continue antibiotics Gastrointestinal: continue feedings/current rate Endocrine: monitor blood sugar, check TSH Hematologic: monitor H/H, transfuse if hgb<8.5 Neurologic: PRN Ativan, PRN Morphine, keep patient comfortable Affect: PRN ativan Prophylaxis: Protonix, Heparin Notes Reviewed: cardio, renal Discussed with: consultants, insurance case manager, family member Critical Care - Objective Last 24 Hour Vital Signs Date Time Temp Pulse Resp B/P (MAP) Pulse Ox O2 Delivery O2 Flow Rate FiO2 06/10/18 08:31 81 100/51 06/10/18 08:00 98.2 79 18 100/51 (67) 99 06/10/18 07:11 95 12 95 Mechanical Ventilator 35 06/10/18 07:00 84 14 107/59 (75) 100 06/10/18 06:56 85 12 100 Mechanical Ventilator 35 06/10/18 06:55 84 12 35 06/10/18 06:00 72 12 119/54 (75) 99 06/10/18 05:00 78 12 111/48 (69) 100 06/10/18 04:55 76 12 35 06/10/18 04:00 Mechanical Ventilator 06/10/18 04:00 35 06/10/18 04:00 98.0 83 18 117/54 (75) 99 06/10/18 04:00 94 06/10/18 03:35 100 15 98 Mechanical Ventilator 35 06/10/18 03:18 84 12 100 Mechanical Ventilator 35 06/10/18 03:17 87 12 35 06/10/18 03:00 92 12 101/55 (70) 98 06/10/18 02:00 105 20 127/71 (89) 100 06/10/18 01:49 107 19 35 06/10/18 01:00 96 15 117/49 (71) 96 06/10/18 00:00 91 06/10/18 00:00 Mechanical Ventilator 06/10/18 00:00 97.9 90 18 136/49 (78) 99 06/09/18 23:43 80 12 98 Mechanical Ventilator 35 06/09/18 23:27 82 12 97 Mechanical Ventilator 35 06/09/18 23:17 92 13 35 06/09/18 23:00 84 13 117/54 (75) 99 06/09/18 22:00 92 13 127/48 (74) 99 06/09/18 21:56 103 17 35 06/09/18 21:00 93 13 107/59 (75) 99 06/09/18 20:00 98.4 98 18 121/59 (79) 99 06/09/18 20:00 35 06/09/18 20:00 Mechanical Ventilator 06/09/18 20:00 98 06/09/18 19:37 88 12 100 Mechanical Ventilator 35 06/09/18 19:27 88 13 100 Mechanical Ventilator 35 06/09/18 19:10 91 12 35 06/09/18 19:00 91 13 111/57 (75) 99 06/09/18 18:00 89 14 136/68 (90) 100 06/09/18 17:27 90 134/65 06/09/18 17:16 92 12 35 06/09/18 17:00 98.0 91 14 134/65 (88) 100 06/09/18 16:00 94 15 116/53 (74) 98 06/09/18 16:00 Mechanical Ventilator 06/09/18 16:00 35 06/09/18 16:00 102 23 138/55 (82) 99 06/09/18 15:54 95 06/09/18 15:00 102 23 138/55 (82) 99 06/09/18 14:59 95 19 35 06/09/18 14:00 85 12 97/29 (51) 98 06/09/18 14:00 94 14 112/54 (73) 98 06/09/18 13:23 97 25 100 Mechanical Ventilator 35 06/09/18 13:22 91 22 35 06/09/18 13:06 91 21 98 Mechanical Ventilator 35 06/09/18 13:00 98.8 90 12 114/51 (72) 99 06/09/18 12:00 85 12 97/29 (51) 98 06/09/18 12:00 Mechanical Ventilator 06/09/18 12:00 35 06/09/18 11:50 90 06/09/18 11:00 93 13 108/58 (75) 97 06/09/18 10:42 95 15 35 06/09/18 10:00 81 13 118/53 (74) 95 06/09/18 09:00 91 17 126/59 (81) 99 Status: awake Condition: critical HEENT: atraumatic Heart: HR/BP stable, HR/BP unstable Abdomen: soft, non-tender, feeding tube Extremities: edema Decubiti: location Critical Care - Subjective ROS Limited/Unobtainable: Yes Condition: critical EKG Rhythm: Sinus Rhythm FI02: 35 Vent Support Breath Rate: 12 Vent Support Mode: AC Vent Tidal Volume: 500 Sputum Amount: Scant PEEP: 5.0 PIP: 29 Tube Feeding Amount: 45 I&O: Intake and Output 06/09/18 06/10/18 19:00 07:00 Intake Total 655 ml 655 ml Output Total 595 ml 1200 ml Balance 60 ml -545 ml Free Water 50 ml 100 ml IV Total 55 ml Tube Feeding 450 ml 495 ml Other 100 ml 60 ml Output Urine Total 595 ml 1200 ml # Bowel Movements 3 1 CXR: right sided haziness ET-Tube: 7.5 ET Position: 21 Labs: Laboratory Tests Test 06/09/18 21:22 06/10/18 04:30 Arterial Blood pH 7.463 (7.350-7.450) Arterial Blood Partial Pressure CO2 54.5 mmHg (35.0-45.0) H Arterial Blood Partial Pressure O2 83.9 mmHg (75.0-100.0) Arterial Blood HCO3 38.2 mmol/L (22.0-26.0) H Arterial Blood Oxygen Saturation 95.9 % (95-100) Arterial Blood Base Excess 12.6 (-2-2) *H David Test Positive White Blood Count 10.6 K/UL (4.8-10.8) Red Blood Count 4.26 M/UL (4.20-5.40) Hemoglobin 9.8 G/DL (12.0-16.0) L Hematocrit 31.0 % (37.0-47.0) L Mean Corpuscular Volume 73 FL (80-99) L Mean Corpuscular Hemoglobin 22.9 PG (27.0-31.0) L Mean Corpuscular Hemoglobin Concent 31.5 G/DL (32.0-36.0) L Red Cell Distribution Width 17.7 % (11.6-14.8) H Platelet Count 314 K/UL (150-450) Mean Platelet Volume 8.8 FL (6.5-10.1) Neutrophils (%) (Auto) 70.1 % (45.0-75.0) Lymphocytes (%) (Auto) 17.9 % (20.0-45.0) L Monocytes (%) (Auto) 8.6 % (1.0-10.0) Eosinophils (%) (Auto) 2.3 % (0.0-3.0) Basophils (%) (Auto) 1.1 % (0.0-2.0) Sodium Level 142 MMOL/L (136-145) Potassium Level 3.8 MMOL/L (3.5-5.1) Chloride Level 101 MMOL/L (98-107) Carbon Dioxide Level 38 MMOL/L (21-32) H Anion Gap 3 mmol/L (5-15) L Blood Urea Nitrogen 47 mg/dL (7-18) H Creatinine 1.8 MG/DL (0.55-1.30) H Estimat Glomerular Filtration Rate mL/min (>60) Glucose Level 111 MG/DL (74-106) H Calcium Level 9.1 MG/DL (8.5-10.1) Phosphorus Level 4.6 MG/DL (2.5-4.9) Magnesium Level 2.3 MG/DL (1.8-2.4) Total Bilirubin 0.3 MG/DL (0.2-1.0) Aspartate Amino Transf (AST/SGOT) 21 U/L (15-37) Alanine Aminotransferase (ALT/SGPT) 27 U/L (12-78) Alkaline Phosphatase 83 U/L (46-116) Pro-B-Type Natriuretic Peptide 717 pg/mL (0-125) H Total Protein 6.6 G/DL (6.4-8.2) Albumin 2.3 G/DL (3.4-5.0) L Globulin 4.3 g/dL Albumin/Globulin Ratio 0.5 (1.0-2.7) L Yuliet Mariee MD Jun 10, 2018 08:53
--- NOTE | 2018-06-10 09:42 | NUR ---
NURSE NOTES: ABG result relayed to Dr Mariee with order to put pt on SIMV. Order noted and carried out.
--- NOTE | 2018-06-10 10:15 | NUR ---
RESPIRATORY NOTE: Placed pt on SIMV 8- PS [address] Mariee's order. Pt's tolerating well, no SOB or resp distress noted. RN Edna notified. Will continue to monitor pt.
--- NOTE | 2018-06-10 10:21 | General Progress Note ---
Assessment/Plan Status: progressing Assessment/Plan This is an 87-year-old female admitted with chronic obstructive pulmonary disease exacerbation, right lower lobe infiltrate/pneumonia with altered mental status and acute kidney injury. The patient will be admitted to [facility] with the following medical problems. 1. Chronic obstructive pulmonary disease exacerbation and pneumonia. The patient has been seen by Pulmonary. Infectious Disease has been consulted, pancultured. IV antibiotics per ID. Continue with BiPAP and suction p.r.n. Transition to Venturi-mask when stable. 2. Acute kidney injury. We will monitor I's and O's, gentle intravenous fluids. Repeat a BMP in a.m. Consider Nephrology consult. 3. History of chronic atrial fibrillation. Continue with amiodarone. The patient is in sinus rhythm at this time. 4. History of hypertension. Continue with amlodipine and hold for systolic blood pressure less than 110. 5. Altered mental status, most likely from above conditions. We will keep n.p.o. except for medications and start IV fluids. 6. DVT prophylaxis with heparin subcutaneous and SCDs. 7. The patient is Full Code per policy. We will discuss with the family. 8. hypokalmia 9. Anemia 10. CHf acute on chronic 11. leucocytosis 12. respiratory alkalosis Plan: - now in ICU on VENT support - continue present care - iV antibioitics and fluids - NGT placed for nutrition - monitor lights patient is full code per family's wish discussed with ICU nurse - wean off vent per ICU team no plan for PEG at this time - weaning off vent in progress SIMV - ABG daily - lasix 20 mg IV daily for pulmonary edema -s/p diamox - add mucomyst HHN - change Duoneb HHN to q 4 discussed with ICU nurse disucssed with Dr. Mariee Subjective Date patient seen: Jun 10, 2018 ROS Limited/Unobtainable: Yes Allergies: Coded Allergies: Mushroom (Verified Allergy, Severe, 05/28/18) MORPHINE (Unverified Allergy, Intermediate, Itching, 01/04/15) PENICILLINS (Unverified Allergy, Intermediate, Hives, 01/04/15) CELECOXIB (Verified Allergy, Mild, 01/15/09) Subjective patient is doing much better, on SIMV weaning protocal Objective Last 24 Hour Vital Signs Date Time Temp Pulse Resp B/P (MAP) Pulse Ox O2 Delivery O2 Flow Rate FiO2 06/10/18 09:00 84 14 117/48 (71) 99 06/10/18 08:31 81 100/51 06/10/18 08:30 87 21 35 06/10/18 08:30 96 06/10/18 08:25 89 12 35 06/10/18 08:00 98.2 79 18 100/51 (67) 99 06/10/18 08:00 35 06/10/18 08:00 Mechanical Ventilator 06/10/18 07:11 95 12 95 Mechanical Ventilator 35 06/10/18 07:00 84 14 107/59 (75) 100 06/10/18 06:56 85 12 100 Mechanical Ventilator 35 06/10/18 06:55 84 12 35 06/10/18 06:00 72 12 119/54 (75) 99 06/10/18 05:00 78 12 111/48 (69) 100 06/10/18 04:55 76 12 35 06/10/18 04:00 Mechanical Ventilator 06/10/18 04:00 35 06/10/18 04:00 98.0 83 18 117/54 (75) 99 06/10/18 04:00 94 06/10/18 03:35 100 15 98 Mechanical Ventilator 35 06/10/18 03:18 84 12 100 Mechanical Ventilator 35 06/10/18 03:17 87 12 35 06/10/18 03:00 92 12 101/55 (70) 98 06/10/18 02:00 105 20 127/71 (89) 100 06/10/18 01:49 107 19 35 06/10/18 01:00 96 15 117/49 (71) 96 06/10/18 00:00 91 06/10/18 00:00 Mechanical Ventilator 06/10/18 00:00 97.9 90 18 136/49 (78) 99 06/09/18 23:43 80 12 98 Mechanical Ventilator 35 06/09/18 23:27 82 12 97 Mechanical Ventilator 35 06/09/18 23:17 92 13 35 06/09/18 23:00 84 13 117/54 (75) 99 06/09/18 22:00 92 13 127/48 (74) 99 06/09/18 21:56 103 17 35 06/09/18 21:00 93 13 107/59 (75) 99 06/09/18 20:00 98.4 98 18 121/59 (79) 99 06/09/18 20:00 35 06/09/18 20:00 Mechanical Ventilator 06/09/18 20:00 98 06/09/18 19:37 88 12 100 Mechanical Ventilator 35 06/09/18 19:27 88 13 100 Mechanical Ventilator 35 06/09/18 19:10 91 12 35 06/09/18 19:00 91 13 111/57 (75) 99 06/09/18 18:00 89 14 136/68 (90) 100 06/09/18 17:27 90 134/65 06/09/18 17:16 92 12 35 06/09/18 17:00 98.0 91 14 134/65 (88) 100 06/09/18 16:00 94 15 116/53 (74) 98 06/09/18 16:00 Mechanical Ventilator 06/09/18 16:00 35 06/09/18 16:00 102 23 138/55 (82) 99 06/09/18 15:54 95 06/09/18 15:00 102 23 138/55 (82) 99 06/09/18 14:59 95 19 35 06/09/18 14:00 85 12 97/29 (51) 98 06/09/18 14:00 94 14 112/54 (73) 98 06/09/18 13:23 97 25 100 Mechanical Ventilator 35 06/09/18 13:22 91 22 35 06/09/18 13:06 91 21 98 Mechanical Ventilator 35 06/09/18 13:00 98.8 90 12 114/51 (72) 99 06/09/18 12:00 85 12 97/29 (51) 98 06/09/18 12:00 Mechanical Ventilator 06/09/18 12:00 35 06/09/18 11:50 90 06/09/18 11:00 93 13 108/58 (75) 97 06/09/18 10:42 95 15 35 Intake and Output 06/09/18 06/10/18 19:00 07:00 Intake Total 655 ml 655 ml Output Total 595 ml 1200 ml Balance 60 ml -545 ml Free Water 50 ml 100 ml IV Total 55 ml Tube Feeding 450 ml 495 ml Other 100 ml 60 ml Output Urine Total 595 ml 1200 ml # Bowel Movements 3 1 Laboratory Tests 06/09/18 21:22: Arterial Blood pH 7.463H, Arterial Blood Partial Pressure CO2 54.5H, Arterial Blood Partial Pressure O2 83.9, Arterial Blood HCO3 38.2H, Arterial Blood Oxygen Saturation 95.9, Arterial Blood Base Excess 12.6*H, David Test Positive 06/10/18 04:30: White Blood Count 10.6, Red Blood Count 4.26, Hemoglobin 9.8L, Hematocrit 31.0L , Mean Corpuscular Volume 73L, Mean Corpuscular Hemoglobin 22.9L, Mean Corpuscular Hemoglobin Concent 31.5L, Red Cell Distribution Width 17.7H, Platelet Count 314, Mean Platelet Volume 8.8, Neutrophils (%) (Auto) 70.1, Lymphocytes (%) (Auto) 17.9L, Monocytes (%) (Auto) 8.6, Eosinophils (%) (Auto) 2.3, Basophils (%) (Auto) 1.1, Sodium Level 142, Potassium Level 3.8, Chloride Level 101, Carbon Dioxide Level 38H, Anion Gap 3L, Blood Urea Nitrogen 47H, Creatinine 1.8H, Estimat Glomerular Filtration Rate , Glucose Level 111H, Calcium Level 9.1, Phosphorus Level 4.6, Magnesium Level 2.3, Total Bilirubin 0.3, Aspartate Amino Transf (AST/SGOT) 21, Alanine Aminotransferase (ALT/SGPT) 27, Alkaline Phosphatase 83, Pro-B-Type Natriuretic Peptide 717H, Total Protein 6.6, Albumin 2.3L, Globulin 4.3, Albumin/Globulin Ratio 0.5L Height (Feet): 5 Height (Inches): 4.00 Weight (Pounds): 120 General Appearance: no apparent distress, alert, mild distress EENT: PERRL/EOMI, pharynx normal Neck: non-tender, supple Cardiovascular: normal rate, regular rhythm, no gallop/murmur, no JVD Respiratory/Chest: normal breath sounds Abdomen: non tender, soft, no mass Extremities: non-tender, normal inspection, no calf tenderness Edema: no edema noted Arm (L), no edema noted Arm (R), no edema noted Leg (L), no edema noted Leg (R), no edema noted Pedal (L), no edema noted Pedal (R), no edema noted Generalized Neurologic: anesthesiology physician II-XII grossly normal, oriented x 3, responsive Lymphatic: normal anterior cervical (L), normal anterior cervical (R), normal posterior cervical (L), normal posterior cervical (R), normal submandibular (L) , normal submandibular (R), normal supraclavicular (L), normal supraclavicular ( R), normal axillary (L), normal axillary (R), normal inguinal (L), normal inguinal (R), normal other Cruz Valderrama MD Jun 10, 2018 10:21
--- NOTE | 2018-06-10 10:33 | Infectious Diseases Prog Note ---
Assessment/Plan Assessment/Plan 87 yo feamle with PMHx of COPD, HTN, and A.fib sent to the ED from her nuring home for SOB. Sepsis - Likely PNA 05/28/18 CXR with atalectasis vs consolidation in the right side. 06/01/18 CXR - Extensive right hemithorax opacification UA (-) Sputum Cx 05/28/18 - MRSA (Inf Neg) Urine legionella (-) Positive blood Cx - Likely contaminant BCx 05/28/18 - CoNS BCX 05/30/18 - NGTD Leukocytosis 15 on admit - now resolved Febrile to 101.5 - now resolved COPD CAD A. fib PLAN - Continue Cefepime #14/ and vancomycin #14/ - Monitor CBC and Temps We will continue to follow Ms. Nowak during this hospitalization. Subjective Allergies: Coded Allergies: Mushroom (Verified Allergy, Severe, 05/28/18) MORPHINE (Unverified Allergy, Intermediate, Itching, 01/04/15) PENICILLINS (Unverified Allergy, Intermediate, Hives, 01/04/15) CELECOXIB (Verified Allergy, Mild, 01/15/09) Subjective On Vent 35% Afebrile Leukocytosis Resolved Objective Vital Signs Last 24 Hour Vital Signs Date Time Temp Pulse Resp B/P (MAP) Pulse Ox O2 Delivery O2 Flow Rate FiO2 06/10/18 10:15 92 25 35 06/10/18 09:00 84 14 117/48 (71) 99 06/10/18 08:31 81 100/51 06/10/18 08:30 87 21 35 06/10/18 08:30 96 06/10/18 08:25 89 12 35 06/10/18 08:00 98.2 79 18 100/51 (67) 99 06/10/18 08:00 35 06/10/18 08:00 Mechanical Ventilator 06/10/18 07:11 95 12 95 Mechanical Ventilator 35 06/10/18 07:00 84 14 107/59 (75) 100 06/10/18 06:56 85 12 100 Mechanical Ventilator 35 06/10/18 06:55 84 12 35 06/10/18 06:00 72 12 119/54 (75) 99 06/10/18 05:00 78 12 111/48 (69) 100 06/10/18 04:55 76 12 35 06/10/18 04:00 Mechanical Ventilator 06/10/18 04:00 35 06/10/18 04:00 98.0 83 18 117/54 (75) 99 06/10/18 04:00 94 06/10/18 03:35 100 15 98 Mechanical Ventilator 35 06/10/18 03:18 84 12 100 Mechanical Ventilator 35 06/10/18 03:17 87 12 35 06/10/18 03:00 92 12 101/55 (70) 98 06/10/18 02:00 105 20 127/71 (89) 100 06/10/18 01:49 107 19 35 06/10/18 01:00 96 15 117/49 (71) 96 06/10/18 00:00 91 06/10/18 00:00 Mechanical Ventilator 06/10/18 00:00 97.9 90 18 136/49 (78) 99 06/09/18 23:43 80 12 98 Mechanical Ventilator 35 06/09/18 23:27 82 12 97 Mechanical Ventilator 35 06/09/18 23:17 92 13 35 06/09/18 23:00 84 13 117/54 (75) 99 06/09/18 22:00 92 13 127/48 (74) 99 06/09/18 21:56 103 17 35 06/09/18 21:00 93 13 107/59 (75) 99 06/09/18 20:00 98.4 98 18 121/59 (79) 99 06/09/18 20:00 35 06/09/18 20:00 Mechanical Ventilator 06/09/18 20:00 98 06/09/18 19:37 88 12 100 Mechanical Ventilator 35 06/09/18 19:27 88 13 100 Mechanical Ventilator 35 06/09/18 19:10 91 12 35 06/09/18 19:00 91 13 111/57 (75) 99 06/09/18 18:00 89 14 136/68 (90) 100 06/09/18 17:27 90 134/65 06/09/18 17:16 92 12 35 06/09/18 17:00 98.0 91 14 134/65 (88) 100 06/09/18 16:00 94 15 116/53 (74) 98 06/09/18 16:00 Mechanical Ventilator 06/09/18 16:00 35 06/09/18 16:00 102 23 138/55 (82) 99 06/09/18 15:54 95 06/09/18 15:00 102 23 138/55 (82) 99 06/09/18 14:59 95 19 35 06/09/18 14:00 85 12 97/29 (51) 98 06/09/18 14:00 94 14 112/54 (73) 98 06/09/18 13:23 97 25 100 Mechanical Ventilator 35 06/09/18 13:22 91 22 35 06/09/18 13:06 91 21 98 Mechanical Ventilator 35 06/09/18 13:00 98.8 90 12 114/51 (72) 99 06/09/18 12:00 85 12 97/29 (51) 98 06/09/18 12:00 Mechanical Ventilator 06/09/18 12:00 35 06/09/18 11:50 90 06/09/18 11:00 93 13 108/58 (75) 97 06/09/18 10:42 95 15 35 Height (Feet): 5 Height (Inches): 4.00 Weight (Pounds): 120 Objective General: NAD, Intubated on Vent 35% O2 HEENT: normocephalic, atraumatic, DMM, EOMI LUNGS: CTAB HEART; RRR Abdomen: Soft, NT, ND, + BS Laboratory Tests Test 06/09/18 21:22 06/10/18 04:30 06/10/18 09:53 Arterial Blood pH 7.463 (7.350-7.450) 7.437 (7.350-7.450) Arterial Blood Partial Pressure CO2 54.5 mmHg (35.0-45.0) H 55.9 mmHg (35.0-45.0) *H Arterial Blood Partial Pressure O2 83.9 mmHg (75.0-100.0) 87.5 mmHg (75.0-100.0) Arterial Blood HCO3 38.2 mmol/L (22.0-26.0) H 36.9 mmol/L (22.0-26.0) H Arterial Blood Oxygen Saturation 95.9 % (95-100) 96.1 % (95-100) Arterial Blood Base Excess 12.6 (-2-2) *H 10.9 (-2-2) *H David Test Positive Positive White Blood Count 10.6 K/UL (4.8-10.8) Red Blood Count 4.26 M/UL (4.20-5.40) Hemoglobin 9.8 G/DL (12.0-16.0) L Hematocrit 31.0 % (37.0-47.0) L Mean Corpuscular Volume 73 FL (80-99) L Mean Corpuscular Hemoglobin 22.9 PG (27.0-31.0) L Mean Corpuscular Hemoglobin Concent 31.5 G/DL (32.0-36.0) L Red Cell Distribution Width 17.7 % (11.6-14.8) H Platelet Count 314 K/UL (150-450) Mean Platelet Volume 8.8 FL (6.5-10.1) Neutrophils (%) (Auto) 70.1 % (45.0-75.0) Lymphocytes (%) (Auto) 17.9 % (20.0-45.0) L Monocytes (%) (Auto) 8.6 % (1.0-10.0) Eosinophils (%) (Auto) 2.3 % (0.0-3.0) Basophils (%) (Auto) 1.1 % (0.0-2.0) Sodium Level 142 MMOL/L (136-145) Potassium Level 3.8 MMOL/L (3.5-5.1) Chloride Level 101 MMOL/L (98-107) Carbon Dioxide Level 38 MMOL/L (21-32) H Anion Gap 3 mmol/L (5-15) L Blood Urea Nitrogen 47 mg/dL (7-18) H Creatinine 1.8 MG/DL (0.55-1.30) H Estimat Glomerular Filtration Rate mL/min (>60) Glucose Level 111 MG/DL (74-106) H Calcium Level 9.1 MG/DL (8.5-10.1) Phosphorus Level 4.6 MG/DL (2.5-4.9) Magnesium Level 2.3 MG/DL (1.8-2.4) Total Bilirubin 0.3 MG/DL (0.2-1.0) Aspartate Amino Transf (AST/SGOT) 21 U/L (15-37) Alanine Aminotransferase (ALT/SGPT) 27 U/L (12-78) Alkaline Phosphatase 83 U/L (46-116) Pro-B-Type Natriuretic Peptide 717 pg/mL (0-125) H Total Protein 6.6 G/DL (6.4-8.2) Albumin 2.3 G/DL (3.4-5.0) L Globulin 4.3 g/dL Albumin/Globulin Ratio 0.5 (1.0-2.7) L Current Medications Medications (Trade) Dose Ordered Sig/Ann Route PRN Reason Start Time Stop Time Status Last Admin Dose Admin Acetaminophen (Tylenol) 650 mg Q4H PRN ORAL Mild Pain/Temp > 100.5 06/07/18 09:30 06/27/18 13:29 06/07/18 15:26 Acetazolamide (Diamox) 250 mg TWICE A DAY ORAL 06/10/18 09:00 06/10/18 22:29 06/10/18 08:29 Acetylcysteine (Mucomyst) 100 mg Q4HRT [facility] 06/09/18 23:00 07/09/18 21:29 06/10/18 06:56 Albuterol/ Ipratropium (Albuterol/ Ipratropium) 3 ml Q4HRT N 06/09/18 23:00 06/14/18 22:59 06/10/18 06:56 Amiodarone HCl (Cordarone) 100 mg DAILY ORAL 06/03/18 09:00 06/30/18 08:59 06/10/18 08:32 Amlodipine Besylate (Norvasc) 5 mg BID ORAL 06/02/18 18:00 06/27/18 08:59 06/10/18 08:31 Cefepime HCl 1 gm/ Dextrose 55 ml @ 110 mls/hr Q24H IV 06/03/18 09:00 06/15/18 08:59 06/10/18 08:28 Chlorhexidine Gluconate (Myra-Hex 2%) 1 applic DAILY@2000 TOPIC 06/02/18 20:00 07/02/18 19:59 06/09/18 20:43 Furosemide (Lasix) 20 mg DAILY IV 06/09/18 21:30 07/09/18 21:29 06/10/18 08:36 Haloperidol Lactate (Haldol) 5 mg Q6H PRN IM Agitation 06/08/18 12:15 07/08/18 12:14 06/09/18 01:19 Heparin Sodium (Porcine) (Heparin 5000 units/ml) 5,000 units EVERY 12 HOURS SUBQ 06/02/18 21:00 06/27/18 08:59 06/10/18 08:41 Nitroglycerin (Ntg) 0.4 mg Q5M PRN SL Prn Chest Pain 06/02/18 13:30 06/27/18 13:29 Ondansetron HCl (Zofran) 4 mg Q6H PRN IVP Nausea & Vomiting 06/02/18 13:30 06/27/18 07:29 Pantoprazole (Protonix) 40 mg DAILY IV 06/03/18 09:00 07/03/18 08:59 06/10/18 08:29 Polyethylene Glycol (Miralax) 17 gm BEDTIME ORAL 06/06/18 21:00 07/06/18 20:59 06/09/18 22:26 Polyethylene Glycol (Miralax) 17 gm DAILYPRN PRN ORAL Constipation 06/02/18 13:30 07/02/18 13:29 06/05/18 20:57 Quetiapine Fumarate (SEROquel) 25 mg Q6H PRN ORAL For Anxiety 06/02/18 13:30 06/29/18 13:29 06/10/18 02:12 Vancomycin HCl (Vanco rx to dose) 1 ea DAILY PRN MISC Per rx protocol 06/02/18 13:30 07/02/18 13:29 Vancomycin HCl 750 mg/Sodium Chloride 275 ml @ 183.333 mls/hr Q36H IVPB 06/07/18 16:00 06/12/18 15:59 06/09/18 04:21 Clint Harris MD Jun 10, 2018 10:33
--- NOTE | 2018-06-10 10:43 | NUR ---
NURSE NOTES: Update Dr Mariee about pt status on SIMV with order to extubate the patient. Message relayed to RT and Charge nurse and per charge nurse wait for Dr De Souza as requested by family who want a second opinion.
--- NOTE | 2018-06-10 11:29 | Diagnostic Imaging Report ---
Indication: Dyspnea Comparison: 06/09/2018 A single view chest radiograph was obtained. Findings: Hazy opacity at the right lung base may be a pleural effusion. Heart size is stable. Tubes and lines stable. Pulmonary vascularity and interstitium appear improved although there is evidence of interstitial edema currently. IMPRESSION: Improved pulmonary edema since yesterday. Persistent right pleural effusion
--- NOTE | 2018-06-10 11:50 | General Progress Note ---
Assessment/Plan Problem List: (1) encephalopathy due to toxin (2) Dementia ICD Codes: F03.90 - Unspecified dementia without behavioral disturbance SNOMED: [id number] Status: stable Assessment/Plan Haldol Im on board Seroquel 25mg q 6hr prn cont restraints. Subjective Allergies: Coded Allergies: Mushroom (Verified Allergy, Severe, 05/28/18) MORPHINE (Unverified Allergy, Intermediate, Itching, 01/04/15) PENICILLINS (Unverified Allergy, Intermediate, Hives, 01/04/15) CELECOXIB (Verified Allergy, Mild, 01/15/09) Subjective more alert agitated waxing and waning of consciousness confused attempting to come out of bed attempting to extubate today Objective Last 24 Hour Vital Signs Date Time Temp Pulse Resp B/P (MAP) Pulse Ox O2 Delivery O2 Flow Rate FiO2 06/10/18 11:07 98 23 100 Mechanical Ventilator 35 06/10/18 11:00 97 25 105/48 (67) 100 06/10/18 10:53 93 19 97 Mechanical Ventilator 35 06/10/18 10:50 92 23 35 06/10/18 10:15 92 25 35 06/10/18 10:00 90 22 130/54 (79) 98 06/10/18 09:00 84 14 117/48 (71) 99 06/10/18 08:31 81 100/51 06/10/18 08:30 87 21 35 06/10/18 08:30 96 06/10/18 08:25 89 12 35 06/10/18 08:00 98.2 79 18 100/51 (67) 99 06/10/18 08:00 35 06/10/18 08:00 Mechanical Ventilator 06/10/18 08:00 84 06/10/18 07:11 95 12 95 Mechanical Ventilator 35 06/10/18 07:00 84 14 107/59 (75) 100 06/10/18 06:56 85 12 100 Mechanical Ventilator 35 06/10/18 06:55 84 12 35 06/10/18 06:00 72 12 119/54 (75) 99 06/10/18 05:00 78 12 111/48 (69) 100 06/10/18 04:55 76 12 35 06/10/18 04:00 Mechanical Ventilator 06/10/18 04:00 35 2/8/19 04:00 98.0 83 18 117/54 (75) 99 06/10/18 04:00 94 06/10/18 03:35 100 15 98 Mechanical Ventilator 35 06/10/18 03:18 84 12 100 Mechanical Ventilator 35 06/10/18 03:17 87 12 35 06/10/18 03:00 92 12 101/55 (70) 98 06/10/18 02:00 105 20 127/71 (89) 100 06/10/18 01:49 107 19 35 06/10/18 01:00 96 15 117/49 (71) 96 06/10/18 00:00 91 06/10/18 00:00 Mechanical Ventilator 06/10/18 00:00 97.9 90 18 136/49 (78) 99 06/09/18 23:43 80 12 98 Mechanical Ventilator 35 06/09/18 23:27 82 12 97 Mechanical Ventilator 35 06/09/18 23:17 92 13 35 06/09/18 23:00 84 13 117/54 (75) 99 06/09/18 22:00 92 13 127/48 (74) 99 06/09/18 21:56 103 17 35 06/09/18 21:00 93 13 107/59 (75) 99 06/09/18 20:00 98.4 98 18 121/59 (79) 99 06/09/18 20:00 35 06/09/18 20:00 Mechanical Ventilator 06/09/18 20:00 98 06/09/18 19:37 88 12 100 Mechanical Ventilator 35 06/09/18 19:27 88 13 100 Mechanical Ventilator 35 06/09/18 19:10 91 12 35 06/09/18 19:00 91 13 111/57 (75) 99 06/09/18 18:00 89 14 136/68 (90) 100 06/09/18 17:27 90 134/65 06/09/18 17:16 92 12 35 06/09/18 17:00 98.0 91 14 134/65 (88) 100 06/09/18 16:00 94 15 116/53 (74) 98 06/09/18 16:00 Mechanical Ventilator 06/09/18 16:00 35 06/09/18 16:00 102 23 138/55 (82) 99 06/09/18 15:54 95 06/09/18 15:00 102 23 138/55 (82) 99 06/09/18 14:59 95 19 35 06/09/18 14:00 85 12 97/29 (51) 98 06/09/18 14:00 94 14 112/54 (73) 98 06/09/18 13:23 97 25 100 Mechanical Ventilator 35 06/09/18 13:22 91 22 35 06/09/18 13:06 91 21 98 Mechanical Ventilator 35 06/09/18 13:00 98.8 90 12 114/51 (72) 99 06/09/18 12:00 85 12 97/29 (51) 98 06/09/18 12:00 Mechanical Ventilator 06/09/18 12:00 35 06/09/18 11:50 90 Intake and Output 06/09/18 06/10/18 19:00 07:00 Intake Total 655 ml 655 ml Output Total 595 ml 1200 ml Balance 60 ml -545 ml Free Water 50 ml 100 ml IV Total 55 ml Tube Feeding 450 ml 495 ml Other 100 ml 60 ml Output Urine Total 595 ml 1200 ml # Bowel Movements 3 1 Laboratory Tests 06/09/18 21:22: Arterial Blood pH 7.463H, Arterial Blood Partial Pressure CO2 54.5H, Arterial Blood Partial Pressure O2 83.9, Arterial Blood HCO3 38.2H, Arterial Blood Oxygen Saturation 95.9, Arterial Blood Base Excess 12.6*H, David Test Positive 06/10/18 04:30: White Blood Count 10.6, Red Blood Count 4.26, Hemoglobin 9.8L, Hematocrit 31.0L , Mean Corpuscular Volume 73L, Mean Corpuscular Hemoglobin 22.9L, Mean Corpuscular Hemoglobin Concent 31.5L, Red Cell Distribution Width 17.7H, Platelet Count 314, Mean Platelet Volume 8.8, Neutrophils (%) (Auto) 70.1, Lymphocytes (%) (Auto) 17.9L, Monocytes (%) (Auto) 8.6, Eosinophils (%) (Auto) 2.3, Basophils (%) (Auto) 1.1, Sodium Level 142, Potassium Level 3.8, Chloride Level 101, Carbon Dioxide Level 38H, Anion Gap 3L, Blood Urea Nitrogen 47H, Creatinine 1.8H, Estimat Glomerular Filtration Rate , Glucose Level 111H, Calcium Level 9.1, Phosphorus Level 4.6, Magnesium Level 2.3, Total Bilirubin 0.3, Aspartate Amino Transf (AST/SGOT) 21, Alanine Aminotransferase (ALT/SGPT) 27, Alkaline Phosphatase 83, Pro-B-Type Natriuretic Peptide 717H, Total Protein 6.6, Albumin 2.3L, Globulin 4.3, Albumin/Globulin Ratio 0.5L 06/10/18 09:53: Arterial Blood pH 7.437, Arterial Blood Partial Pressure CO2 55.9*H, Arterial Blood Partial Pressure O2 87.5, Arterial Blood HCO3 36.9H, Arterial Blood Oxygen Saturation 96.1, Arterial Blood Base Excess 10.9*H, David Test Positive Height (Feet): 5 Height (Inches): 4.00 Weight (Pounds): 120 General Appearance: alert, confused, agitated Liz Lo MD Jun 10, 2018 11:50
--- NOTE | 2018-06-10 11:50 | NUR ---
NURSE NOTES: Extubated and placed on Bipap at 18/8. Deep breathing exercises teaching provided and tolerated well.Will continue to monitor.
--- NOTE | 2018-06-10 12:00 | NUR ---
RESPIRATORY NOTE: Extubated pt per Dr. Mariee's order at 1150. Placed pt on Bipap 18/8, 35% FiO2. No stridor noted, brad wheeze heard upon auscultation, orally sxn moderate amount of thick/thin white clear secretion . Pt is tolerating well the Bipap. No redness or skin breakdown noted upon applying foam tapes on nose bridge/chin/ cheeks to prevent skin breakdown. Pt is resting comfortably, no SOB or resp distress noted. Alarms are set and audible, ambubag is at bedside, Bipap is plugged into the red outlet. MARGY Bishop made aware. ABG in 1 hour. Will continue to monitor pt closely.
--- NOTE | 2018-06-10 12:00 | NUR ---
Social Service Note SUGAR spoke with patient's son Tolu [phone]. 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 Son is requesting Dr. Land. SW notified Dr. Mariee. Orders to change provider and Dr. Land accepted care. SW updated son.
--- NOTE | 2018-06-10 12:09 | NUR ---
NURSE NOTES: Mouth care done, HOB elevated to prevent aspiration.Turned and repositioned.Kept clean and dry. Will continue monitor. Tolerate well Bipap at this time saturation 98%.
--- NOTE | 2018-06-10 12:41 | NUR ---
NURSE NOTES: Received call from [facility] to change repairer welding equipment Dr Mariee to Dr Land. Order noted and carried out.
--- NOTE | 2018-06-10 14:07 | NUR ---
NURSE NOTES: Turned and repositioned.HOB elevated to prevent aspiration.Kept clean and dry.Dr Land made aware new ABG result. No new order at this time. Kept on close monitoring.
[2018-06-10] MEDS ORDERED: Sterile Water For Inj 1000ml IV ONE (14:11)
[2018-06-10] MEDS ORDERED: NS 275ml ONE (14:11)
--- NOTE | 2018-06-10 14:20 | NUR ---
NURSE NOTES: Seen by Shilo, keep pt NPO except with meds. Order noted and carried out.Will continue to monitor.
--- NOTE | 2018-06-10 14:39 | Nephrology Progress Note ---
Assessment/Plan Problem List: (1) Urinary outflow obstruction Assessment: resolved after grewal (2) Acute respiratory failure (3) Dementia (4) Afib Assessment Urinary out let obstruction, relieved after grewal Normal serum Cr Anemia, Low MCV High Ca corrected for low ALbumin other conditions: (1) Acute respiratory failure (2) Aspiration pneumonia (3) Acute encephalopathy (4) Pleural effusion (5) COPD (chronic obstructive pulmonary disease) (6) CAD (coronary artery disease) (7) Dementia Plan extubated now- on BIPAP K and Phos and Mag as needed slow Hydrate Anemia porter Adjust BP meds fu Lytes Gastric support pulm support- not tolerating bipap consider tube feeding ( PEG) as po is POOR Subjective ROS Limited/Unobtainable: No Constitutional: Reports: malaise, weakness Objective Objective Last 24 Hour Vital Signs Date Time Temp Pulse Resp B/P (MAP) Pulse Ox O2 Delivery O2 Flow Rate FiO2 06/10/18 14:00 87 25 124/61 (82) 100 06/10/18 13:22 98 22 83 Facial 35 06/10/18 13:00 89 25 99/48 (65) 100 06/10/18 12:00 35 06/10/18 12:00 89 06/10/18 12:00 98.0 99 18 119/53 (75) 99 06/10/18 12:00 Bi-pap Bi-pap 06/10/18 11:55 100 22 97 Facial 35 06/10/18 11:50 Bi-pap 35 06/10/18 11:07 98 23 100 Mechanical Ventilator 35 06/10/18 11:00 97 25 105/48 (67) 100 06/10/18 10:53 93 19 97 Mechanical Ventilator 35 06/10/18 10:50 92 23 35 06/10/18 10:15 92 25 35 06/10/18 10:00 90 22 130/54 (79) 98 06/10/18 09:00 84 14 117/48 (71) 99 06/10/18 08:31 81 100/51 06/10/18 08:30 87 21 35 06/10/18 08:30 96 06/10/18 08:25 89 12 35 06/10/18 08:00 98.2 79 18 100/51 (67) 99 06/10/18 08:00 35 06/10/18 08:00 Mechanical Ventilator 06/10/18 08:00 84 06/10/18 07:11 95 12 95 Mechanical Ventilator 35 06/10/18 07:00 84 14 107/59 (75) 100 06/10/18 06:56 85 12 100 Mechanical Ventilator 35 06/10/18 06:55 84 12 35 06/10/18 06:00 72 12 119/54 (75) 99 06/10/18 05:00 78 12 111/48 (69) 100 06/10/18 04:55 76 12 35 06/10/18 04:00 Mechanical Ventilator 06/10/18 04:00 35 06/10/18 04:00 98.0 83 18 117/54 (75) 99 06/10/18 04:00 94 06/10/18 03:35 100 15 98 Mechanical Ventilator 35 06/10/18 03:18 84 12 100 Mechanical Ventilator 35 06/10/18 03:17 87 12 35 06/10/18 03:00 92 12 101/55 (70) 98 06/10/18 02:00 105 20 127/71 (89) 100 06/10/18 01:49 107 19 35 06/10/18 01:00 96 15 117/49 (71) 96 06/10/18 00:00 91 06/10/18 00:00 Mechanical Ventilator 06/10/18 00:00 97.9 90 18 136/49 (78) 99 06/09/18 23:43 80 12 98 Mechanical Ventilator 35 06/09/18 23:27 82 12 97 Mechanical Ventilator 35 06/09/18 23:17 92 13 35 06/09/18 23:00 84 13 117/54 (75) 99 06/09/18 22:00 92 13 127/48 (74) 99 06/09/18 21:56 103 17 35 06/09/18 21:00 93 13 107/59 (75) 99 06/09/18 20:00 98.4 98 18 121/59 (79) 99 06/09/18 20:00 35 06/09/18 20:00 Mechanical Ventilator 06/09/18 20:00 98 06/09/18 19:37 88 12 100 Mechanical Ventilator 35 06/09/18 19:27 88 13 100 Mechanical Ventilator 35 06/09/18 19:10 91 12 35 06/09/18 19:00 91 13 111/57 (75) 99 06/09/18 18:00 89 14 136/68 (90) 100 06/09/18 17:27 90 134/65 06/09/18 17:16 92 12 35 06/09/18 17:00 98.0 91 14 134/65 (88) 100 06/09/18 16:00 94 15 116/53 (74) 98 06/09/18 16:00 Mechanical Ventilator 06/09/18 16:00 35 06/09/18 16:00 102 23 138/55 (82) 99 06/09/18 15:54 95 06/09/18 15:00 102 23 138/55 (82) 99 06/09/18 14:59 95 19 35 Intake and Output 06/09/18 06/10/18 19:00 07:00 Intake Total 655 ml 655 ml Output Total 595 ml 1200 ml Balance 60 ml -545 ml Free Water 50 ml 100 ml IV Total 55 ml Tube Feeding 450 ml 495 ml Other 100 ml 60 ml Output Urine Total 595 ml 1200 ml # Bowel Movements 3 1 Laboratory Tests 06/09/18 21:22: Arterial Blood pH 7.463H, Arterial Blood Partial Pressure CO2 54.5H, Arterial Blood Partial Pressure O2 83.9, Arterial Blood HCO3 38.2H, Arterial Blood Oxygen Saturation 95.9, Arterial Blood Base Excess 12.6*H, David Test Positive 06/10/18 04:30: White Blood Count 10.6, Red Blood Count 4.26, Hemoglobin 9.8L, Hematocrit 31.0L , Mean Corpuscular Volume 73L, Mean Corpuscular Hemoglobin 22.9L, Mean Corpuscular Hemoglobin Concent 31.5L, Red Cell Distribution Width 17.7H, Platelet Count 314, Mean Platelet Volume 8.8, Neutrophils (%) (Auto) 70.1, Lymphocytes (%) (Auto) 17.9L, Monocytes (%) (Auto) 8.6, Eosinophils (%) (Auto) 2.3, Basophils (%) (Auto) 1.1, Sodium Level 142, Potassium Level 3.8, Chloride Level 101, Carbon Dioxide Level 38H, Anion Gap 3L, Blood Urea Nitrogen 47H, Creatinine 1.8H, Estimat Glomerular Filtration Rate , Glucose Level 111H, Calcium Level 9.1, Phosphorus Level 4.6, Magnesium Level 2.3, Total Bilirubin 0.3, Aspartate Amino Transf (AST/SGOT) 21, Alanine Aminotransferase (ALT/SGPT) 27, Alkaline Phosphatase 83, Pro-B-Type Natriuretic Peptide 717H, Total Protein 6.6, Albumin 2.3L, Globulin 4.3, Albumin/Globulin Ratio 0.5L 06/10/18 09:53: Arterial Blood pH 7.437, Arterial Blood Partial Pressure CO2 55.9*H, Arterial Blood Partial Pressure O2 87.5, Arterial Blood HCO3 36.9H, Arterial Blood Oxygen Saturation 96.1, Arterial Blood Base Excess 10.9*H, David Test Positive 06/10/18 13:35: Arterial Blood pH 7.425, Arterial Blood Partial Pressure CO2 58.0*H, Arterial Blood Partial Pressure O2 92.2, Arterial Blood HCO3 37.2H, Arterial Blood Oxygen Saturation 96.4, Arterial Blood Base Excess 11.0*H, David Test Positive Height (Feet): 5 Height (Inches): 4.00 Weight (Pounds): 120 EENT: other - extubated on BIPAP Cardiovascular: normal rate Respiratory/Chest: decreased breath sounds Abdomen: soft Kendrick Jimenez MD Jun 10, 2018 14:39
--- NOTE | 2018-06-10 14:48 | NUR ---
NURSE NOTES: Seen by Dr Gil, will follow up with new orders
--- NOTE | 2018-06-10 15:19 | Cardiology Progress Note ---
Assessment/Plan Assessment/Plan COPD, congestive heart failure, atrial fibrillation sinus tachy agitation right lung collapse? anemia extubated chest pt dvt ppx all trop neg cr is mildy increased hgb trending down is npo is on ngt feedign off ivf diuretic daily for 1-2 day diamox will consider stopping soon Subjective Cardiovascular: Denies: chest pain, lightheadedness Respiratory: Denies: shortness of breath Gastrointestinal/Abdominal: Denies: abdominal pain Genitourinary: Denies: burning Subjective extubated on bipap Objective Last 24 Hour Vital Signs Date Time Temp Pulse Resp B/P (MAP) Pulse Ox O2 Delivery O2 Flow Rate FiO2 06/10/18 15:03 87 24 99 Mechanical Ventilator 35 06/10/18 14:52 89 23 99 Bi-pap 35 06/10/18 14:51 98 23 83 Facial 35 06/10/18 14:00 87 25 124/61 (82) 100 06/10/18 13:22 98 22 83 Facial 35 06/10/18 13:00 89 25 99/48 (65) 100 06/10/18 12:00 35 06/10/18 12:00 89 06/10/18 12:00 98.0 99 18 119/53 (75) 99 06/10/18 12:00 Bi-pap Bi-pap 06/10/18 11:55 100 22 97 Facial 35 06/10/18 11:50 Bi-pap 35 06/10/18 11:07 98 23 100 Mechanical Ventilator 35 06/10/18 11:00 97 25 105/48 (67) 100 06/10/18 10:53 93 19 97 Mechanical Ventilator 35 06/10/18 10:50 92 23 35 06/10/18 10:15 92 25 35 06/10/18 10:00 90 22 130/54 (79) 98 06/10/18 09:00 84 14 117/48 (71) 99 06/10/18 08:31 81 100/51 06/10/18 08:30 87 21 35 06/10/18 08:30 96 06/10/18 08:25 89 12 35 06/10/18 08:00 98.2 79 18 100/51 (67) 99 06/10/18 08:00 35 06/10/18 08:00 Mechanical Ventilator 06/10/18 08:00 84 06/10/18 07:11 95 12 95 Mechanical Ventilator 35 06/10/18 07:00 84 14 107/59 (75) 100 06/10/18 06:56 85 12 100 Mechanical Ventilator 35 06/10/18 06:55 84 12 35 06/10/18 06:00 72 12 119/54 (75) 99 06/10/18 05:00 78 12 111/48 (69) 100 06/10/18 04:55 76 12 35 06/10/18 04:00 Mechanical Ventilator 06/10/18 04:00 35 06/10/18 04:00 98.0 83 18 117/54 (75) 99 06/10/18 04:00 94 06/10/18 03:35 100 15 98 Mechanical Ventilator 35 06/10/18 03:18 84 12 100 Mechanical Ventilator 35 06/10/18 03:17 87 12 35 06/10/18 03:00 92 12 101/55 (70) 98 06/10/18 02:00 105 20 127/71 (89) 100 06/10/18 01:49 107 19 35 06/10/18 01:00 96 15 117/49 (71) 96 06/10/18 00:00 91 06/10/18 00:00 Mechanical Ventilator 06/10/18 00:00 97.9 90 18 136/49 (78) 99 06/09/18 23:43 80 12 98 Mechanical Ventilator 35 06/09/18 23:27 82 12 97 Mechanical Ventilator 35 06/09/18 23:17 92 13 35 06/09/18 23:00 84 13 117/54 (75) 99 06/09/18 22:00 92 13 127/48 (74) 99 06/09/18 21:56 103 17 35 06/09/18 21:00 93 13 107/59 (75) 99 06/09/18 20:00 98.4 98 18 121/59 (79) 99 06/09/18 20:00 35 06/09/18 20:00 Mechanical Ventilator 06/09/18 20:00 98 06/09/18 19:37 88 12 100 Mechanical Ventilator 35 06/09/18 19:27 88 13 100 Mechanical Ventilator 35 06/09/18 19:10 91 12 35 06/09/18 19:00 91 13 111/57 (75) 99 06/09/18 18:00 89 14 136/68 (90) 100 06/09/18 17:27 90 134/65 06/09/18 17:16 92 12 35 06/09/18 17:00 98.0 91 14 134/65 (88) 100 06/09/18 16:00 94 15 116/53 (74) 98 06/09/18 16:00 Mechanical Ventilator 06/09/18 16:00 35 06/09/18 16:00 102 23 138/55 (82) 99 06/09/18 15:54 95 General Appearance: alert Neck: supple Cardiovascular: normal rate, regular rhythm Respiratory/Chest: expiratory wheezing, inspiratory wheezing Abdomen: normal bowel sounds, non tender, soft Extremities: no swelling Intake and Output 06/09/18 06/10/18 19:00 07:00 Intake Total 655 ml 655 ml Output Total 595 ml 1200 ml Balance 60 ml -545 ml Free Water 50 ml 100 ml IV Total 55 ml Tube Feeding 450 ml 495 ml Other 100 ml 60 ml Output Urine Total 595 ml 1200 ml # Bowel Movements 3 1 Laboratory Tests Test 06/09/18 21:22 06/10/18 04:30 06/10/18 09:53 06/10/18 13:35 Arterial Blood pH 7.463 (7.350-7.450) 7.437 (7.350-7.450) 7.425 (7.350-7.450) Arterial Blood Partial Pressure CO2 54.5 mmHg (35.0-45.0) H 55.9 mmHg (35.0-45.0) *H 58.0 mmHg (35.0-45.0) *H Arterial Blood Partial Pressure O2 83.9 mmHg (75.0-100.0) 87.5 mmHg (75.0-100.0) 92.2 mmHg (75.0-100.0) Arterial Blood HCO3 38.2 mmol/L (22.0-26.0) H 36.9 mmol/L (22.0-26.0) H 37.2 mmol/L (22.0-26.0) H Arterial Blood Oxygen Saturation 95.9 % (95-100) 96.1 % (95-100) 96.4 % (95-100) Arterial Blood Base Excess 12.6 (-2-2) *H 10.9 (-2-2) *H 11.0 (-2-2) *H David Test Positive Positive Positive White Blood Count 10.6 K/UL (4.8-10.8) Red Blood Count 4.26 M/UL (4.20-5.40) Hemoglobin 9.8 G/DL (12.0-16.0) L Hematocrit 31.0 % (37.0-47.0) L Mean Corpuscular Volume 73 FL (80-99) L Mean Corpuscular Hemoglobin 22.9 PG (27.0-31.0) L Mean Corpuscular Hemoglobin Concent 31.5 G/DL (32.0-36.0) L Red Cell Distribution Width 17.7 % (11.6-14.8) H Platelet Count 314 K/UL (150-450) Mean Platelet Volume 8.8 FL (6.5-10.1) Neutrophils (%) (Auto) 70.1 % (45.0-75.0) Lymphocytes (%) (Auto) 17.9 % (20.0-45.0) L Monocytes (%) (Auto) 8.6 % (1.0-10.0) Eosinophils (%) (Auto) 2.3 % (0.0-3.0) Basophils (%) (Auto) 1.1 % (0.0-2.0) Sodium Level 142 MMOL/L (136-145) Potassium Level 3.8 MMOL/L (3.5-5.1) Chloride Level 101 MMOL/L (98-107) Carbon Dioxide Level 38 MMOL/L (21-32) H Anion Gap 3 mmol/L (5-15) L Blood Urea Nitrogen 47 mg/dL (7-18) H Creatinine 1.8 MG/DL (0.55-1.30) H Estimat Glomerular Filtration Rate mL/min (>60) Glucose Level 111 MG/DL (74-106) H Calcium Level 9.1 MG/DL (8.5-10.1) Phosphorus Level 4.6 MG/DL (2.5-4.9) Magnesium Level 2.3 MG/DL (1.8-2.4) Total Bilirubin 0.3 MG/DL (0.2-1.0) Aspartate Amino Transf (AST/SGOT) 21 U/L (15-37) Alanine Aminotransferase (ALT/SGPT) 27 U/L (12-78) Alkaline Phosphatase 83 U/L (46-116) Pro-B-Type Natriuretic Peptide 717 pg/mL (0-125) H Total Protein 6.6 G/DL (6.4-8.2) Albumin 2.3 G/DL (3.4-5.0) L Globulin 4.3 g/dL Albumin/Globulin Ratio 0.5 (1.0-2.7) L Geoffrey Sandhu MD Jun 10, 2018 15:19
--- NOTE | 2018-06-10 16:04 | NUR ---
NURSE NOTES: Mouth care done, turned and repositioned.HOB elevated to prevent aspiration.On Bipap 18/8 and tolerated well.Keep on close monitoring.
--- NOTE | 2018-06-10 16:13 | GI Progress Note ---
Assessment/Plan Problems: (1) Severe malnutrition ICD Codes: E43 - Unspecified severe protein-calorie malnutrition SNOMED: 69576365 (2) Dementia ICD Codes: F03.90 - Unspecified dementia without behavioral disturbance SNOMED: 51494749 (3) Confused ICD Codes: R41.0 - Disorientation, unspecified SNOMED: 548192511 (4) Encounter for PEG (percutaneous endoscopic gastrostomy) ICD Codes: Z43.1 - Encounter for attention to gastrostomy SNOMED: 563699006, 735874056 (5) Failure to thrive SNOMED: 78257823 (6) Acute encephalopathy ICD Codes: G93.40 - Encephalopathy, unspecified SNOMED: 1975931 Status: unchanged Status Narrative Discussed with Dr. Acevedo Assessment/Plan Assessment - Resp failure - NGT dependent - COPD - CHF - PNA - Anemia - Poor prognosis -No plans for tracheostomy as of yet, patient has failed weening 4 times. Now on BiPAP. Recommendations - NGT feeds, discussed with family regarding PEG placement. >> Will schedule if agrees . - Vent care - Elevated HOB - Monitor residuals - Abx - Pulmonary toilet -Follow labs The patient was seen and examined at bedside and all new and available data was reviewed in the patients chart. I agree with the above findings, impression and plan. (Patient seen earlier today. Signature stamp does not reflect patient encounter time.). - Jacobo Acevedo MD Subjective Subjective Limited Objective Last 24 Hour Vital Signs Date Time Temp Pulse Resp B/P (MAP) Pulse Ox O2 Delivery O2 Flow Rate FiO2 06/10/18 15:03 87 24 99 Mechanical Ventilator 35 06/10/18 14:52 89 23 99 Bi-pap 35 06/10/18 14:51 98 23 83 Facial 35 06/10/18 14:00 87 25 124/61 (82) 100 06/10/18 13:22 98 22 83 Facial 35 06/10/18 13:00 89 25 99/48 (65) 100 06/10/18 12:00 35 06/10/18 12:00 89 06/10/18 12:00 98.0 99 18 119/53 (75) 99 06/10/18 12:00 Bi-pap Bi-pap 06/10/18 11:55 100 22 97 Facial 35 06/10/18 11:50 Bi-pap 35 06/10/18 11:07 98 23 100 Mechanical Ventilator 35 06/10/18 11:00 97 25 105/48 (67) 100 06/10/18 10:53 93 19 97 Mechanical Ventilator 35 06/10/18 10:50 92 23 35 06/10/18 10:15 92 25 35 06/10/18 10:00 90 22 130/54 (79) 98 06/10/18 09:00 84 14 117/48 (71) 99 06/10/18 08:31 81 100/51 06/10/18 08:30 87 21 35 06/10/18 08:30 96 06/10/18 08:25 89 12 35 06/10/18 08:00 98.2 79 18 100/51 (67) 99 06/10/18 08:00 35 06/10/18 08:00 Mechanical Ventilator 06/10/18 08:00 84 06/10/18 07:11 95 12 95 Mechanical Ventilator 35 06/10/18 07:00 84 14 107/59 (75) 100 06/10/18 06:56 85 12 100 Mechanical Ventilator 35 06/10/18 06:55 84 12 35 06/10/18 06:00 72 12 119/54 (75) 99 06/10/18 05:00 78 12 111/48 (69) 100 06/10/18 04:55 76 12 35 06/10/18 04:00 Mechanical Ventilator 06/10/18 04:00 35 06/10/18 04:00 98.0 83 18 117/54 (75) 99 06/10/18 04:00 94 06/10/18 03:35 100 15 98 Mechanical Ventilator 35 06/10/18 03:18 84 12 100 Mechanical Ventilator 35 06/10/18 03:17 87 12 35 06/10/18 03:00 92 12 101/55 (70) 98 06/10/18 02:00 105 20 127/71 (89) 100 06/10/18 01:49 107 19 35 06/10/18 01:00 96 15 117/49 (71) 96 06/10/18 00:00 91 06/10/18 00:00 Mechanical Ventilator 06/10/18 00:00 97.9 90 18 136/49 (78) 99 06/09/18 23:43 80 12 98 Mechanical Ventilator 35 06/09/18 23:27 82 12 97 Mechanical Ventilator 35 06/09/18 23:17 92 13 35 06/09/18 23:00 84 13 117/54 (75) 99 06/09/18 22:00 92 13 127/48 (74) 99 06/09/18 21:56 103 17 35 06/09/18 21:00 93 13 107/59 (75) 99 06/09/18 20:00 98.4 98 18 121/59 (79) 99 06/09/18 20:00 35 06/09/18 20:00 Mechanical Ventilator 06/09/18 20:00 98 06/09/18 19:37 88 12 100 Mechanical Ventilator 35 06/09/18 19:27 88 13 100 Mechanical Ventilator 35 06/09/18 19:10 91 12 35 06/09/18 19:00 91 13 111/57 (75) 99 06/09/18 18:00 89 14 136/68 (90) 100 06/09/18 17:27 90 134/65 06/09/18 17:16 92 12 35 06/09/18 17:00 98.0 91 14 134/65 (88) 100 Intake and Output 06/09/18 06/10/18 19:00 07:00 Intake Total 655 ml 655 ml Output Total 595 ml 1200 ml Balance 60 ml -545 ml Free Water 50 ml 100 ml IV Total 55 ml Tube Feeding 450 ml 495 ml Other 100 ml 60 ml Output Urine Total 595 ml 1200 ml # Bowel Movements 3 1 Laboratory Tests Test 06/09/18 21:22 06/10/18 04:30 06/10/18 09:53 06/10/18 13:35 Arterial Blood pH 7.463 (7.350-7.450) 7.437 (7.350-7.450) 7.425 (7.350-7.450) Arterial Blood Partial Pressure CO2 54.5 mmHg (35.0-45.0) H 55.9 mmHg (35.0-45.0) *H 58.0 mmHg (35.0-45.0) *H Arterial Blood Partial Pressure O2 83.9 mmHg (75.0-100.0) 87.5 mmHg (75.0-100.0) 92.2 mmHg (75.0-100.0) Arterial Blood HCO3 38.2 mmol/L (22.0-26.0) H 36.9 mmol/L (22.0-26.0) H 37.2 mmol/L (22.0-26.0) H Arterial Blood Oxygen Saturation 95.9 % (95-100) 96.1 % (95-100) 96.4 % (95-100) Arterial Blood Base Excess 12.6 (-2-2) *H 10.9 (-2-2) *H 11.0 (-2-2) *H David Test Positive Positive Positive White Blood Count 10.6 K/UL (4.8-10.8) Red Blood Count 4.26 M/UL (4.20-5.40) Hemoglobin 9.8 G/DL (12.0-16.0) L Hematocrit 31.0 % (37.0-47.0) L Mean Corpuscular Volume 73 FL (80-99) L Mean Corpuscular Hemoglobin 22.9 PG (27.0-31.0) L Mean Corpuscular Hemoglobin Concent 31.5 G/DL (32.0-36.0) L Red Cell Distribution Width 17.7 % (11.6-14.8) H Platelet Count 314 K/UL (150-450) Mean Platelet Volume 8.8 FL (6.5-10.1) Neutrophils (%) (Auto) 70.1 % (45.0-75.0) Lymphocytes (%) (Auto) 17.9 % (20.0-45.0) L Monocytes (%) (Auto) 8.6 % (1.0-10.0) Eosinophils (%) (Auto) 2.3 % (0.0-3.0) Basophils (%) (Auto) 1.1 % (0.0-2.0) Sodium Level 142 MMOL/L (136-145) Potassium Level 3.8 MMOL/L (3.5-5.1) Chloride Level 101 MMOL/L (98-107) Carbon Dioxide Level 38 MMOL/L (21-32) H Anion Gap 3 mmol/L (5-15) L Blood Urea Nitrogen 47 mg/dL (7-18) H Creatinine 1.8 MG/DL (0.55-1.30) H Estimat Glomerular Filtration Rate mL/min (>60) Glucose Level 111 MG/DL (74-106) H Calcium Level 9.1 MG/DL (8.5-10.1) Phosphorus Level 4.6 MG/DL (2.5-4.9) Magnesium Level 2.3 MG/DL (1.8-2.4) Total Bilirubin 0.3 MG/DL (0.2-1.0) Aspartate Amino Transf (AST/SGOT) 21 U/L (15-37) Alanine Aminotransferase (ALT/SGPT) 27 U/L (12-78) Alkaline Phosphatase 83 U/L (46-116) Pro-B-Type Natriuretic Peptide 717 pg/mL (0-125) H Total Protein 6.6 G/DL (6.4-8.2) Albumin 2.3 G/DL (3.4-5.0) L Globulin 4.3 g/dL Albumin/Globulin Ratio 0.5 (1.0-2.7) L Height (Feet): 5 Height (Inches): 4.00 Weight (Pounds): 120 General Appearance: WD/WN, no apparent distress, alert Cardiovascular: normal rate Respiratory/Chest: normal breath sounds, no respiratory distress, other - BiPAP Abdominal Exam: normal bowel sounds, non tender, soft, other - NGT Extremities: non-tender Alber Rodriguez NP Jun 10, 2018 16:13
[2018-06-10] MEDS: Vancomycin 750mg/NS 275ml IVPB SCH ×2 (16:25)
[2018-06-10] MEDS ORDERED: Etomidate 40mg/20ml Inj IV ONE (16:48)
[2018-06-10] MEDS ORDERED: Succinylcholine 20mg/ml 10ml vial ONE (16:48)
--- NOTE | 2018-06-10 18:01 | NUR ---
RESPIRATORY NOTE: Took pt off Bipap per Dr. Mariee's order. Placed pt on NC 2L 28%, saturates at 97%, RR 22bpm. No SOB or resp distress noted. MARGY Bishop notified. Will continue to monitor.
--- NOTE | 2018-06-10 18:05 | NUR ---
NURSE NOTES: ADLs done,mouth care provided.HOB elevated to prevent aspiration.Placed on oxygen nasal canula at 2LPM and tolerate well.Saturation 98% at this time.PRN Bipap stand by.Will continue to monitor.
--- NOTE | 2018-06-10 18:31 | NUR ---
CASE MANAGEMENT: REVIEW SI: A-FIB . CAD . COPD T 97.8 HR 98 RR 24 BP 95/53 SAT 99% BIPAP FIO2 35 ABG: PH 7.425 PCO2 53.0 PO2 92.2 HCO3 37.2 BASE 11.0 IS: DIAMOX PO BID ALBUTEROL HHN Q4HR MUCOMYST HHN Q4HR LASIX IV QD VANCO IV Q36HR CEFEPIME IV Q24HR AMIODARONE PO QD ICU STATUS DCP: PATIENT IS FROM [facility]
--- NOTE | 2018-06-10 19:29 | NUR ---
HAND-OFF: Report given to MARGY Middleton.
--- NOTE | 2018-06-10 19:30 | NUR ---
NURSE NOTES: Received report from MARGY Bishop. Pt is in bed, in no acute distress noted, her son is at the bedside. Afebrile at this time, extubated earlier in the AM, now on NC 4L, with O2 sat at 96%. Standby Bipap 18/8. Right UA PICC patent and asymptomatic with TKO. NGT right nares clamped. Pt's NPO at this time. Abdomen soft and non distended. Sinclair in place draining clear yellow urine with no apparent sediment. Will continue to monitor.
[2018-06-10] MEDS: Dyna-Hex 2% Top Sol 2oz TOPIC SCH (21:00)
[2018-06-10] MEDS: Miralax 17gm pkt ORAL SCH (21:00)
--- NOTE | 2018-06-10 21:30 | NUR ---
NURSE NOTES: Pt's resting in bed comfortably, in no acute distress. Noted pt desatting 87-88%. Putting pt on Bipap 18/8, 50%, O2 sat trending up. RT at bedside. Will continue to monitor.
[2018-06-11] VITALS (24 sets, daily range): BP systolic 91–153; BP diastolic 41–86
--- NOTE | 2018-06-11 | NUR ---
NURSE NOTES: Pt's resting in bed, asleep, VS stable, in no acute distress. VS stable.
--- NOTE | 2018-06-11 02:00 | NUR ---
NURSE NOTES: Pt's resting in bed, asleep, in no acute distress. VS stable. Will continue to monitor.
[2018-06-11] MEDS: Acetylcysteine 20% Soln 4ml HHN SCH ×6 (03:05→23:10)
[2018-06-11] MEDS: Albuterol/Ipratropium 3ml neb HHN SCH ×6 (03:05→23:10)
--- NOTE | 2018-06-11 04:00 | NUR ---
NURSE NOTES: Pt's resting in bed, asleep, in no acute distress. VS stable. Will continue to monitor.
[2018-06-11 05:32] LABS: BASOPHILS % (AUTO) 1.1 % (0.0-2.0); EOSINOPHILS % (AUTO) 3.5 % (0.0-3.0); HEMATOCRIT 35.5 % (37.0-47.0); HEMOGLOBIN 10.7 G/DL (12.0-16.0); LYMPHOCYTES % (AUTO) 22.7 % (20.0-45.0); MEAN CORPUSCULAR VOLUME 75 FL (80-99); MONOCYTES % (AUTO) 4.9 % (1.0-10.0); NEUTROPHILS % (AUTO) 67.7 % (45.0-75.0); PLATELET COUNT 384 K/UL (150-450); RED BLOOD COUNT 4.75 M/UL (4.20-5.40); RED CELL DISTRIBUTION WIDTH 18.2 % (11.6-14.8); WHITE BLOOD COUNT 9.9 K/UL (4.8-10.8)
--- NOTE | 2018-06-11 06:00 | NUR ---
NURSE NOTES: Pt's awake and pulled out her NGT. Endorsed to the charge nurse and on going nurse. Pt's currently NPO. VS stable. O2 sat 98% with 4L/NC. Will continue to monitor.
[2018-06-11 06:01] LABS: ALANINE AMINOTRANSFERASE 34 U/L (12-78); ALBUMIN 2.6 G/DL (3.4-5.0); ALBUMIN/GLOBULIN RATIO 0.6 (1.0-2.7); ALKALINE PHOSPHATASE 81 U/L (46-116); ANION GAP 6 mmol/L (5-15); ASPARTATE AMINO TRANSFERASE 25 U/L (15-37); BILIRUBIN,TOTAL 0.3 MG/DL (0.2-1.0); BLOOD UREA NITROGEN 46 mg/dL (7-18); CALCIUM 9.7 MG/DL (8.5-10.1); CARBON DIOXIDE 35 MMOL/L (21-32); CHLORIDE 103 MMOL/L (98-107); CREATININE 1.9 MG/DL (0.55-1.30); POTASSIUM 3.7 MMOL/L (3.5-5.1); SODIUM 143 MMOL/L (136-145)
--- NOTE | 2018-06-11 06:25 | NUR ---
HAND-OFF: Report given to MARGY Vargas.
--- NOTE | 2018-06-11 06:30 | NUR ---
NURSE NOTES: Received report from MARGY Middleton. patient awake pulled out NGT, Previous nurse Kane inserted OGT but patient pulled out OGT charge nurse aware. will try to insert NGT. encourage pt to verbalize needs,fears and feelings to staff, explained the importance v/s risk and benefits not effective. pt on oxygen 2L via N/C satting 98%. hob elevated. Sinclair draining. On p200 for wound management. Bed alarm on. Bed locked and in low position. Will continue plan of care.
--- NOTE | 2018-06-11 07:15 | NUR ---
HAND-OFF: Report given to MARGY Alonso.
--- NOTE | 2018-06-11 07:20 | NUR ---
NURSE NOTES: Report received from Alicia JI. Pt alert and oriented x 2-3, confused at times, tamazight speaking. Pt on court recording monitor, SR. Pt on room air saturating 94%. Pt with rhonchi bilaterally with productive cough, thick brownish secretions. Grewal intact draining clear, straw colored urine to gravity. Bilateral soft restraints re-ordered because pt observed to be pulling lines/grewal and attempting to climb out of bed. Pt also pulled out OGT. MILY PICC intact with TKO running. Safety measures in place with bed locked and in lowest position, side rails x3 up and bed alarm activated. Will continue to monitor and continue plan of care.
[2018-06-11] MEDS: Pantoprazole Inj IV SCH (08:43)
[2018-06-11] MEDS: Heparin 5000 units/ml inj SUBQ SCH ×2 (08:45→21:10)
[2018-06-11] MEDS: Cefepime HCl 1 GM in D5W 55 ML IV SCH (08:46)
[2018-06-11] MEDS: Amiodarone 200mg tab ORAL SCH (09:00)
[2018-06-11] MEDS: Haloperidol 5mg/ml Inj IM PRN (09:31)
--- NOTE | 2018-06-11 10:30 | NUR ---
NURSE NOTES: Dr Jimenez here to see pt. No new orders. Pt placed on bipap because she was desaturating to 80s on venturi mask. Will continue to monitor.
--- NOTE | 2018-06-11 11:04 | Diagnostic Imaging Report ---
ADDENDUM - Added by Ann-Marie Will M.D. on 06/11/2018 11:29 AM (-08:00) INDICATION: Dyspnea. COMPARISON: Chest x-ray, 06/10/18 726 FINDINGS: Stable right PICC line. Similar right lung opacities with small pleural effusion and right mid-lower lung airspace disease, consolidation. Similar left lung base atelectasis/airspace disease. No pneumothorax. Cardiomegaly. IMPRESSION: Stable right PICC line. Similar right pleural effusion and hazy lung opacities. EXAM: XR Chest, 1 View CLINICAL HISTORY: DYSPNEA TECHNIQUE: Frontal view of the chest. COMPARISON: Chest x-ray 06/11/18 858 FINDINGS: Lungs: Stable right lung airspace opacities. Stable left lung. Pleural space: Stable right pleural effusion. No pneumothorax. Heart: Cardiomegaly. Mediastinum: Unremarkable. Bones/joints: Degenerative changes of the spine. Tubes, lines and devices: Interval placement of NG which is entering deep into the right mainstem bronchus. Stable right PICC line. IMPRESSION: 1. Interval placement of NG tube which is entering deep into the right mainstem bronchus. Needs to be pulled out. 2. Stable right lung airspace opacities. 3. Stable right pleural effusion. [employer] 06/11/18 11:03 Call Nurse Called furnace charger Kyung on 06/11 11:02 (-08:00)
--- NOTE | 2018-06-11 11:27 | Diagnostic Imaging Report ---
EXAM: XR Chest, 1 View CLINICAL HISTORY: DYSPNEA TECHNIQUE: Frontal view of the chest. COMPARISON: Chest x-ray 06/11/18 859 FINDINGS: Lungs: Stable right lung airspace opacities. Stable left lung. Pleural space: Stable right pleural effusion. No pneumothorax. Heart: Cardiomegaly. Mediastinum: Unremarkable. Bones/joints: Degenerative changes of the spine. Tubes, lines and devices: Interval placement of NG which is entering deep into the right mainstem bronchus. Stable right PICC line. IMPRESSION: 1. Interval placement of NG tube which is entering deep into the right mainstem bronchus. Needs to be pulled out. 2. Stable right lung airspace opacities. 3. Stable right pleural effusion. Radiologist: Ann-Marie Will M.D. Electronically Signed: 06/11/18 11:03 Study ready at 09:49 and initial results transmitted at 11:03 [employer] Clear Time[employer]Notes 06/11/18 11:03Call NurseCalled charge entry Kyung on 06/11 11:02 (-08:00)
--- NOTE | 2018-06-11 11:27 | NUR ---
NURSE NOTES: Family here at bedside visiting with pt. Will continue to monitor.
--- NOTE | 2018-06-11 12:18 | Nephrology Progress Note ---
Assessment/Plan Problem List: (1) Urinary outflow obstruction Assessment: resolved after grewal (2) Acute respiratory failure (3) Dementia (4) Afib Assessment Urinary out let obstruction, relieved after grewal Normal serum Cr Anemia, Low MCV High Ca corrected for low ALbumin other conditions: (1) Acute respiratory failure (2) Aspiration pneumonia (3) Acute encephalopathy (4) Pleural effusion (5) COPD (chronic obstructive pulmonary disease) (6) CAD (coronary artery disease) (7) Dementia Plan extubated now- on BIPAP K and Phos and Mag as needed slow Hydrate Anemia porter Adjust BP meds fu Lytes Gastric support pulm support- not tolerating bipap consider tube feeding ( PEG) as po is POOR Subjective ROS Limited/Unobtainable: No Constitutional: Reports: malaise Objective Objective Last 24 Hour Vital Signs Date Time Temp Pulse Resp B/P (MAP) Pulse Ox O2 Delivery O2 Flow Rate FiO2 06/11/18 11:00 98 20 116/41 (66) 92 06/11/18 10:54 99 19 95 Bi-pap 40 06/11/18 10:47 103 22 94 Bi-pap 40 06/11/18 10:00 110 27 143/65 (91) 85 06/11/18 09:00 108 18 153/63 (93) 97 06/11/18 09:00 99 143/65 06/11/18 08:00 10.0 45 06/11/18 08:00 98.7 94 24 130/55 (80) 88 06/11/18 08:00 88 06/11/18 08:00 Bi-pap Bi-pap 06/11/18 07:09 93 24 96 Nasal Cannula 3.0 32 06/11/18 07:00 94 20 96 Nasal Cannula 32 06/11/18 07:00 92 24 135/58 (83) 99 06/11/18 06:00 89 22 132/68 (89) 98 06/11/18 05:00 84 22 146/86 (106) 100 06/11/18 04:58 81 21 99 Facial 40 06/11/18 04:00 70 06/11/18 04:00 Bi-pap Bi-pap 06/11/18 04:00 86 06/11/18 04:00 91 23 134/57 (82) 99 06/11/18 03:16 92 23 95 Bi-pap 40 06/11/18 03:08 80 20 99 Facial 40 06/11/18 03:06 85 22 97 Bi-pap 40 06/11/18 03:00 82 20 123/64 (83) 97 06/11/18 02:00 77 17 119/59 (79) 97 06/11/18 01:07 81 19 99 Facial 40 06/11/18 01:00 98.5 82 19 100/53 (69) 97 06/11/18 00:00 91 06/11/18 00:00 83 17 119/51 (73) 98 06/11/18 00:00 Bi-pap Bi-pap 06/10/18 23:06 99 21 99 Bi-pap 40 06/10/18 23:00 90 22 116/51 (72) 99 06/10/18 22:59 89 21 99 Facial 40 06/10/18 22:56 91 20 99 Bi-pap 40 06/10/18 22:00 97 22 125/61 (82) 98 06/10/18 21:30 96 22 121/59 (79) 98 06/10/18 21:16 97 23 120/58 (78) 90 06/10/18 21:00 96 23 87/73 (78) 90 06/10/18 21:00 50 06/10/18 20:28 101 24 96 Facial 50 06/10/18 20:00 94 06/10/18 20:00 4.0 06/10/18 20:00 98.4 99 24 131/59 (83) 90 06/10/18 20:00 Bi-pap Bi-pap 06/10/18 19:10 97 22 96 Nasal Cannula 3.0 32 06/10/18 19:00 98 22 113/47 (69) 98 06/10/18 18:59 88 22 98 Nasal Cannula 32 06/10/18 18:01 85 22 97 06/10/18 18:00 98 24 120/43 (68) 98 06/10/18 17:31 82 95/53 06/10/18 17:00 81 18 95/53 (67) 99 06/10/18 16:56 97.8 06/10/18 16:50 87 17 99 Facial 35 06/10/18 16:00 35 06/10/18 16:00 91 06/10/18 16:00 97.8 98 18 120/56 (77) 98 2/8/19 16:00 Bi-pap Bi-pap 06/10/18 15:03 87 24 99 Mechanical Ventilator 35 06/10/18 15:00 93 18 137/41 (73) 100 06/10/18 14:52 89 23 99 Bi-pap 35 06/10/18 14:51 83 23 98 Facial 35 06/10/18 14:00 87 25 124/61 (82) 100 06/10/18 13:22 98 22 83 Facial 35 06/10/18 13:00 89 25 99/48 (65) 100 Intake and Output 06/10/18 06/11/18 19:00 07:00 Intake Total 480.000 ml Output Total 1740 ml 600 ml Balance -1260.000 ml -600 ml Free Water 150 ml IV Total 330.000 ml Output Urine Total 1740 ml 600 ml Laboratory Tests 06/10/18 13:35: Arterial Blood pH 7.425, Arterial Blood Partial Pressure CO2 58.0*H, Arterial Blood Partial Pressure O2 92.2, Arterial Blood HCO3 37.2H, Arterial Blood Oxygen Saturation 96.4, Arterial Blood Base Excess 11.0*H, David Test Positive 06/11/18 04:30: White Blood Count 9.9, Red Blood Count 4.75, Hemoglobin 10.7L, Hematocrit 35.5L , Mean Corpuscular Volume 75L, Mean Corpuscular Hemoglobin 22.5L, Mean Corpuscular Hemoglobin Concent 30.2L, Red Cell Distribution Width 18.2H, Platelet Count 384, Mean Platelet Volume 7.8, Neutrophils (%) (Auto) 67.7, Lymphocytes (%) (Auto) 22.7, Monocytes (%) (Auto) 4.9, Eosinophils (%) (Auto) 3.5H, Basophils (%) (Auto) 1.1, Sodium Level 143, Potassium Level 3.7, Chloride Level 103, Carbon Dioxide Level 35H, Anion Gap 6, Blood Urea Nitrogen 46H, Creatinine 1.9H, Estimat Glomerular Filtration Rate , Glucose Level 101, Calcium Level 9.7, Total Bilirubin 0.3, Aspartate Amino Transf (AST/SGOT) 25, Alanine Aminotransferase (ALT/SGPT) 34, Alkaline Phosphatase 81, Pro-B-Type Natriuretic Peptide 652H, Total Protein 7.3, Albumin 2.6L, Globulin 4.7, Albumin /Globulin Ratio 0.6L Height (Feet): 5 Height (Inches): 4.00 Weight (Pounds): 120 General Appearance: no apparent distress Cardiovascular: tachycardia Respiratory/Chest: decreased breath sounds Abdomen: soft Objective no change Kendrick Jimenez MD Jun 11, 2018 12:18
--- NOTE | 2018-06-11 13:10 | NUR ---
NURSE NOTES: Attempted to re-insert NGT. CXR showed it was in the bronchus. NGT removed. Will continue to monitor.
--- NOTE | 2018-06-11 14:44 | NUR ---
NURSE NOTES: Pt other family members at bedside. Pt attempting to climb out of bed. Will continue to monitor.
[2018-06-11] MEDS ORDERED: LORazepam Inj 2mg/ml 1ml IV PRN (15:15)
[2018-06-11] MEDS: LORazepam Inj 2mg/ml 1ml IV PRN (15:42)
--- NOTE | 2018-06-11 15:46 | Cardiology Progress Note ---
Assessment/Plan Problem List: (1) encephalopathy due to toxin (2) Acute respiratory failure (3) Dementia (4) CAD (coronary artery disease) (5) Aspiration pneumonia (6) Afib Status: stable, progressing Status Narrative Pt w/ hx of PAF, CAD, adm w/ respiratory failure. Was weaned from vent, but now back on bipap this pm due to desaturation. Assessment/Plan Continue iv antibiotics, bipap vent support. Continue oral amiodarone ( NGT) for PAF. No anticoagulation due to bleeding risk, comorbidities. Subjective ROS Limited/Unobtainable: Yes Subjective Cardiology for Dr. Sandhu Pt on bipap vent, not communicative. Objective Last 24 Hour Vital Signs Date Time Temp Pulse Resp B/P (MAP) Pulse Ox O2 Delivery O2 Flow Rate FiO2 06/11/18 15:00 97 25 108/54 (72) 98 06/11/18 14:55 100 29 96 Bi-pap 40 06/11/18 14:50 100 32 93 Bi-pap 55 06/11/18 14:00 96 25 118/54 (75) 90 06/11/18 13:00 98.5 96 21 106/54 (71) 94 06/11/18 12:00 96 06/11/18 12:00 10.0 45 06/11/18 12:00 Bi-pap Bi-pap 06/11/18 12:00 93 20 92/57 (69) 93 06/11/18 11:00 98 20 116/41 (66) 92 06/11/18 10:54 99 19 95 Bi-pap 40 06/11/18 10:47 103 22 94 Bi-pap 40 06/11/18 10:00 110 27 143/65 (91) 85 06/11/18 09:00 108 18 153/63 (93) 97 06/11/18 09:00 99 143/65 06/11/18 08:00 10.0 45 06/11/18 08:00 98.7 94 24 130/55 (80) 88 06/11/18 08:00 88 06/11/18 08:00 Bi-pap Bi-pap 06/11/18 07:09 93 24 96 Nasal Cannula 3.0 32 06/11/18 07:00 94 20 96 Nasal Cannula 32 06/11/18 07:00 92 24 135/58 (83) 99 06/11/18 06:00 89 22 132/68 (89) 98 06/11/18 05:00 84 22 146/86 (106) 100 06/11/18 04:58 81 21 99 Facial 40 06/11/18 04:00 70 06/11/18 04:00 Bi-pap Bi-pap 06/11/18 04:00 86 06/11/18 04:00 91 23 134/57 (82) 99 06/11/18 03:16 92 23 95 Bi-pap 40 06/11/18 03:08 80 20 99 Facial 40 06/11/18 03:06 85 22 97 Bi-pap 40 06/11/18 03:00 82 20 123/64 (83) 97 06/11/18 02:00 77 17 119/59 (79) 97 06/11/18 01:07 81 19 99 Facial 40 06/11/18 01:00 98.5 82 19 100/53 (69) 97 06/11/18 00:00 91 06/11/18 00:00 83 17 119/51 (73) 98 06/11/18 00:00 Bi-pap Bi-pap 06/10/18 23:06 99 21 99 Bi-pap 40 06/10/18 23:00 90 22 116/51 (72) 99 06/10/18 22:59 89 21 99 Facial 40 06/10/18 22:56 91 20 99 Bi-pap 40 06/10/18 22:00 97 22 125/61 (82) 98 06/10/18 21:30 96 22 121/59 (79) 98 06/10/18 21:16 97 23 120/58 (78) 90 06/10/18 21:00 96 23 87/73 (78) 90 06/10/18 21:00 50 06/10/18 20:28 101 24 96 Facial 50 06/10/18 20:00 94 06/10/18 20:00 4.0 06/10/18 20:00 98.4 99 24 131/59 (83) 90 06/10/18 20:00 Bi-pap Bi-pap 06/10/18 19:10 97 22 96 Nasal Cannula 3.0 32 06/10/18 19:00 98 22 113/47 (69) 98 06/10/18 18:59 88 22 98 Nasal Cannula 32 06/10/18 18:01 85 22 97 06/10/18 18:00 98 24 120/43 (68) 98 06/10/18 17:31 82 95/53 06/10/18 17:00 81 18 95/53 (67) 99 06/10/18 16:56 97.8 06/10/18 16:50 87 17 99 Facial 35 06/10/18 16:00 35 06/10/18 16:00 91 06/10/18 16:00 97.8 98 18 120/56 (77) 98 06/10/18 16:00 Bi-pap Bi-pap General Appearance: WD/WN, alert, other - on bipap vent EENT: PERRL/EOMI Neck: supple, no JVD Rhythm: NSR Cardiovascular: normal rate, regular rhythm Respiratory/Chest: other - shallow respirations. no rales or wheezes Abdomen: non tender, soft Extremities: no swelling Intake and Output 06/10/18 06/11/18 19:00 07:00 Intake Total 480.000 ml Output Total 1740 ml 600 ml Balance -1260.000 ml -600 ml Free Water 150 ml IV Total 330.000 ml Output Urine Total 1740 ml 600 ml Laboratory Tests Test 06/11/18 04:30 White Blood Count 9.9 K/UL (4.8-10.8) Red Blood Count 4.75 M/UL (4.20-5.40) Hemoglobin 10.7 G/DL (12.0-16.0) L Hematocrit 35.5 % (37.0-47.0) L Mean Corpuscular Volume 75 FL (80-99) L Mean Corpuscular Hemoglobin 22.5 PG (27.0-31.0) L Mean Corpuscular Hemoglobin Concent 30.2 G/DL (32.0-36.0) L Red Cell Distribution Width 18.2 % (11.6-14.8) H Platelet Count 384 K/UL (150-450) Mean Platelet Volume 7.8 FL (6.5-10.1) Neutrophils (%) (Auto) 67.7 % (45.0-75.0) Lymphocytes (%) (Auto) 22.7 % (20.0-45.0) Monocytes (%) (Auto) 4.9 % (1.0-10.0) Eosinophils (%) (Auto) 3.5 % (0.0-3.0) H Basophils (%) (Auto) 1.1 % (0.0-2.0) Sodium Level 143 MMOL/L (136-145) Potassium Level 3.7 MMOL/L (3.5-5.1) Chloride Level 103 MMOL/L (98-107) Carbon Dioxide Level 35 MMOL/L (21-32) H Anion Gap 6 mmol/L (5-15) Blood Urea Nitrogen 46 mg/dL (7-18) H Creatinine 1.9 MG/DL (0.55-1.30) H Estimat Glomerular Filtration Rate mL/min (>60) Glucose Level 101 MG/DL (74-106) Calcium Level 9.7 MG/DL (8.5-10.1) Total Bilirubin 0.3 MG/DL (0.2-1.0) Aspartate Amino Transf (AST/SGOT) 25 U/L (15-37) Alanine Aminotransferase (ALT/SGPT) 34 U/L (12-78) Alkaline Phosphatase 81 U/L (46-116) Pro-B-Type Natriuretic Peptide 652 pg/mL (0-125) H Total Protein 7.3 G/DL (6.4-8.2) Albumin 2.6 G/DL (3.4-5.0) L Globulin 4.7 g/dL Albumin/Globulin Ratio 0.6 (1.0-2.7) She Chaidez MD Jun 11, 2018 15:46
--- NOTE | 2018-06-11 17:00 | GI Progress Note ---
Assessment/Plan Problems: (1) Severe malnutrition ICD Codes: E43 - Unspecified severe protein-calorie malnutrition SNOMED: 29130688 (2) Dementia ICD Codes: F03.90 - Unspecified dementia without behavioral disturbance SNOMED: 28183086 (3) Confused ICD Codes: R41.0 - Disorientation, unspecified SNOMED: 599954873 (4) Encounter for PEG (percutaneous endoscopic gastrostomy) ICD Codes: Z43.1 - Encounter for attention to gastrostomy SNOMED: 044096249, 438651060 (5) Failure to thrive SNOMED: 80011476 (6) Acute encephalopathy ICD Codes: G93.40 - Encephalopathy, unspecified SNOMED: 9683318 Status: unchanged Status Narrative Discussed with Dr. Acevedo. Assessment/Plan Assessment - Resp failure - NGT dependent - COPD - CHF - PNA - Anemia - Poor prognosis -No plans for tracheostomy as of yet, patient has failed weening multiple times. Now on BiPAP. Recommendations - NGT feeds, discussed with family regarding PEG placement. >> Will schedule if agrees . - Vent care - Elevated HOB - Monitor residuals - Abx - Pulmonary toilet -Follow labs The patient was seen and examined at bedside and all new and available data was reviewed in the patients chart. I agree with the above findings, impression and plan. (Patient seen earlier today. Signature stamp does not reflect patient encounter time.). - Jacobo Acevedo MD Subjective Subjective Limited Objective Last 24 Hour Vital Signs Date Time Temp Pulse Resp B/P (MAP) Pulse Ox O2 Delivery O2 Flow Rate FiO2 06/11/18 16:00 98 06/11/18 16:00 98.2 105 30 91/47 (62) 89 06/11/18 16:00 10.0 45 06/11/18 16:00 Bi-pap Bi-pap 06/11/18 15:00 97 25 108/54 (72) 98 06/11/18 14:55 100 29 96 Bi-pap 40 06/11/18 14:50 100 32 93 Bi-pap 55 06/11/18 14:00 96 25 118/54 (75) 90 06/11/18 13:00 98.5 96 21 106/54 (71) 94 06/11/18 12:00 96 06/11/18 12:00 10.0 45 06/11/18 12:00 Bi-pap Bi-pap 06/11/18 12:00 93 20 92/57 (69) 93 06/11/18 11:00 98 20 116/41 (66) 92 06/11/18 10:54 99 19 95 Bi-pap 40 06/11/18 10:47 103 22 94 Bi-pap 40 06/11/18 10:00 110 27 143/65 (91) 85 06/11/18 09:00 108 18 153/63 (93) 97 06/11/18 09:00 99 143/65 06/11/18 08:00 10.0 45 06/11/18 08:00 98.7 94 24 130/55 (80) 88 06/11/18 08:00 88 06/11/18 08:00 Bi-pap Bi-pap 06/11/18 07:09 93 24 96 Nasal Cannula 3.0 32 06/11/18 07:00 94 20 96 Nasal Cannula 32 06/11/18 07:00 92 24 135/58 (83) 99 06/11/18 06:00 89 22 132/68 (89) 98 06/11/18 05:00 84 22 146/86 (106) 100 06/11/18 04:58 81 21 99 Facial 40 06/11/18 04:00 70 06/11/18 04:00 Bi-pap Bi-pap 06/11/18 04:00 86 06/11/18 04:00 91 23 134/57 (82) 99 06/11/18 03:16 92 23 95 Bi-pap 40 06/11/18 03:08 80 20 99 Facial 40 06/11/18 03:06 85 22 97 Bi-pap 40 06/11/18 03:00 82 20 123/64 (83) 97 06/11/18 02:00 77 17 119/59 (79) 97 06/11/18 01:07 81 19 99 Facial 40 06/11/18 01:00 98.5 82 19 100/53 (69) 97 06/11/18 00:00 91 06/11/18 00:00 83 17 119/51 (73) 98 06/11/18 00:00 Bi-pap Bi-pap 06/10/18 23:06 99 21 99 Bi-pap 40 06/10/18 23:00 90 22 116/51 (72) 99 06/10/18 22:59 89 21 99 Facial 40 06/10/18 22:56 91 20 99 Bi-pap 40 06/10/18 22:00 97 22 125/61 (82) 98 06/10/18 21:30 96 22 121/59 (79) 98 06/10/18 21:16 97 23 120/58 (78) 90 06/10/18 21:00 96 23 87/73 (78) 90 06/10/18 21:00 50 06/10/18 20:28 101 24 96 Facial 50 06/10/18 20:00 94 06/10/18 20:00 4.0 06/10/18 20:00 98.4 99 24 131/59 (83) 90 06/10/18 20:00 Bi-pap Bi-pap 06/10/18 19:10 97 22 96 Nasal Cannula 3.0 32 06/10/18 19:00 98 22 113/47 (69) 98 06/10/18 18:59 88 22 98 Nasal Cannula 32 06/10/18 18:01 85 22 97 06/10/18 18:00 98 24 120/43 (68) 98 06/10/18 17:31 82 95/53 06/10/18 17:00 81 18 95/53 (67) 99 06/10/18 16:56 97.8 Intake and Output 06/10/18 06/11/18 19:00 07:00 Intake Total 480.000 ml Output Total 1740 ml 600 ml Balance -1260.000 ml -600 ml Free Water 150 ml IV Total 330.000 ml Output Urine Total 1740 ml 600 ml Laboratory Tests Test 06/11/18 04:30 White Blood Count 9.9 K/UL (4.8-10.8) Red Blood Count 4.75 M/UL (4.20-5.40) Hemoglobin 10.7 G/DL (12.0-16.0) L Hematocrit 35.5 % (37.0-47.0) L Mean Corpuscular Volume 75 FL (80-99) L Mean Corpuscular Hemoglobin 22.5 PG (27.0-31.0) L Mean Corpuscular Hemoglobin Concent 30.2 G/DL (32.0-36.0) L Red Cell Distribution Width 18.2 % (11.6-14.8) H Platelet Count 384 K/UL (150-450) Mean Platelet Volume 7.8 FL (6.5-10.1) Neutrophils (%) (Auto) 67.7 % (45.0-75.0) Lymphocytes (%) (Auto) 22.7 % (20.0-45.0) Monocytes (%) (Auto) 4.9 % (1.0-10.0) Eosinophils (%) (Auto) 3.5 % (0.0-3.0) H Basophils (%) (Auto) 1.1 % (0.0-2.0) Sodium Level 143 MMOL/L (136-145) Potassium Level 3.7 MMOL/L (3.5-5.1) Chloride Level 103 MMOL/L (98-107) Carbon Dioxide Level 35 MMOL/L (21-32) H Anion Gap 6 mmol/L (5-15) Blood Urea Nitrogen 46 mg/dL (7-18) H Creatinine 1.9 MG/DL (0.55-1.30) H Estimat Glomerular Filtration Rate mL/min (>60) Glucose Level 101 MG/DL (74-106) Calcium Level 9.7 MG/DL (8.5-10.1) Total Bilirubin 0.3 MG/DL (0.2-1.0) Aspartate Amino Transf (AST/SGOT) 25 U/L (15-37) Alanine Aminotransferase (ALT/SGPT) 34 U/L (12-78) Alkaline Phosphatase 81 U/L (46-116) Pro-B-Type Natriuretic Peptide 652 pg/mL (0-125) H Total Protein 7.3 G/DL (6.4-8.2) Albumin 2.6 G/DL (3.4-5.0) L Globulin 4.7 g/dL Albumin/Globulin Ratio 0.6 (1.0-2.7) L Height (Feet): 5 Height (Inches): 4.00 Weight (Pounds): 120 General Appearance: WD/WN, no apparent distress Cardiovascular: normal rate Respiratory/Chest: normal breath sounds, no respiratory distress, other - intubated Abdominal Exam: normal bowel sounds, non tender, soft Extremities: non-tender Alber Rodriguez WORKING MANAGER Jun 11, 2018 17:00
--- NOTE | 2018-06-11 17:21 | General Progress Note ---
Assessment/Plan Status: progressing Assessment/Plan This is an 87-year-old female admitted with chronic obstructive pulmonary disease exacerbation, right lower lobe infiltrate/pneumonia with altered mental status and acute kidney injury. The patient will be admitted to [facility] with the following medical problems. 1. Chronic obstructive pulmonary disease exacerbation and pneumonia. The patient has been seen by Pulmonary. Infectious Disease has been consulted, pancultured. IV antibiotics per ID. Continue with BiPAP and suction p.r.n. Transition to Venturi-mask when stable. 2. Acute kidney injury. We will monitor I's and O's, gentle intravenous fluids. Repeat a BMP in a.m. Consider Nephrology consult. 3. History of chronic atrial fibrillation. Continue with amiodarone. The patient is in sinus rhythm at this time. 4. History of hypertension. Continue with amlodipine and hold for systolic blood pressure less than 110. 5. Altered mental status, most likely from above conditions. We will keep n.p.o. except for medications and start IV fluids. 6. DVT prophylaxis with heparin subcutaneous and SCDs. 7. The patient is Full Code per policy. We will discuss with the family. 8. hypokalmia 9. Anemia 10. CHf acute on chronic 11. leucocytosis 12. respiratory alkalosis Plan: - Now extubated since 06-10-18 - continue present care - iV antibioitics and fluids - NGT to be replaced, swallow eval on Wednesday - monitor lights patient is full code per family's wish discussed with ICU nurse no plan for PEG at this time - ABG daily - lasix 20 mg IV daily for pulmonary edema -s/p diamox - add mucomyst HHN - change Duoneb HHN to q 4 Subjective Date patient seen: Jun 11, 2018 ROS Limited/Unobtainable: Yes Allergies: Coded Allergies: Mushroom (Verified Allergy, Severe, 05/28/18) MORPHINE (Unverified Allergy, Intermediate, Itching, 01/04/15) PENICILLINS (Unverified Allergy, Intermediate, Hives, 01/04/15) CELECOXIB (Verified Allergy, Mild, 01/15/09) Subjective now extubated since last night, on Bipap, family decided to change gaming investigator to Dr. Musa from today Objective Last 24 Hour Vital Signs Date Time Temp Pulse Resp B/P (MAP) Pulse Ox O2 Delivery O2 Flow Rate FiO2 06/11/18 16:59 94 27 92 Facial 55 06/11/18 16:00 98 06/11/18 16:00 98.2 105 30 91/47 (62) 89 06/11/18 16:00 10.0 45 06/11/18 16:00 Bi-pap Bi-pap 06/11/18 15:24 92 35 90 Facial 55 06/11/18 15:00 97 25 108/54 (72) 98 06/11/18 14:55 100 29 96 Bi-pap 40 06/11/18 14:50 100 32 93 Bi-pap 55 06/11/18 14:00 96 25 118/54 (75) 90 06/11/18 13:04 99 32 91 Facial 55 06/11/18 13:00 98.5 96 21 106/54 (71) 94 06/11/18 12:00 96 06/11/18 12:00 10.0 45 06/11/18 12:00 Bi-pap Bi-pap 06/11/18 12:00 93 20 92/57 (69) 93 06/11/18 11:00 98 20 116/41 (66) 92 06/11/18 10:54 99 19 95 Bi-pap 40 06/11/18 10:47 103 22 94 Bi-pap 40 06/11/18 10:15 95 28 92 Facial 55 06/11/18 10:00 110 27 143/65 (91) 85 06/11/18 09:00 108 18 153/63 (93) 97 06/11/18 09:00 99 143/65 06/11/18 08:00 10.0 45 06/11/18 08:00 98.7 94 24 130/55 (80) 88 06/11/18 08:00 88 06/11/18 08:00 Bi-pap Bi-pap 06/11/18 07:09 93 24 96 Nasal Cannula 3.0 32 06/11/18 07:00 94 20 96 Nasal Cannula 32 06/11/18 07:00 92 24 135/58 (83) 99 06/11/18 06:00 89 22 132/68 (89) 98 06/11/18 05:00 84 22 146/86 (106) 100 06/11/18 04:58 81 21 99 Facial 40 06/11/18 04:00 70 06/11/18 04:00 Bi-pap Bi-pap 06/11/18 04:00 86 06/11/18 04:00 91 23 134/57 (82) 99 06/11/18 03:16 92 23 95 Bi-pap 40 06/11/18 03:08 80 20 99 Facial 40 06/11/18 03:06 85 22 97 Bi-pap 40 06/11/18 03:00 82 20 123/64 (83) 97 06/11/18 02:00 77 17 119/59 (79) 97 06/11/18 01:07 81 19 99 Facial 40 06/11/18 01:00 98.5 82 19 100/53 (69) 97 06/11/18 00:00 91 06/11/18 00:00 83 17 119/51 (73) 98 06/11/18 00:00 Bi-pap Bi-pap 06/10/18 23:06 99 21 99 Bi-pap 40 06/10/18 23:00 90 22 116/51 (72) 99 06/10/18 22:59 89 21 99 Facial 40 06/10/18 22:56 91 20 99 Bi-pap 40 06/10/18 22:00 97 22 125/61 (82) 98 06/10/18 21:30 96 22 121/59 (79) 98 06/10/18 21:16 97 23 120/58 (78) 90 06/10/18 21:00 96 23 87/73 (78) 90 06/10/18 21:00 50 06/10/18 20:28 101 24 96 Facial 50 06/10/18 20:00 94 06/10/18 20:00 4.0 06/10/18 20:00 98.4 99 24 131/59 (83) 90 06/10/18 20:00 Bi-pap Bi-pap 06/10/18 19:10 97 22 96 Nasal Cannula 3.0 32 06/10/18 19:00 98 22 113/47 (69) 98 06/10/18 18:59 88 22 98 Nasal Cannula 32 06/10/18 18:01 85 22 97 06/10/18 18:00 98 24 120/43 (68) 98 06/10/18 17:31 82 95/53 Intake and Output 06/10/18 06/11/18 19:00 07:00 Intake Total 480.000 ml Output Total 1740 ml 600 ml Balance -1260.000 ml -600 ml Free Water 150 ml IV Total 330.000 ml Output Urine Total 1740 ml 600 ml Laboratory Tests 06/11/18 04:30: White Blood Count 9.9, Red Blood Count 4.75, Hemoglobin 10.7L, Hematocrit 35.5L , Mean Corpuscular Volume 75L, Mean Corpuscular Hemoglobin 22.5L, Mean Corpuscular Hemoglobin Concent 30.2L, Red Cell Distribution Width 18.2H, Platelet Count 384, Mean Platelet Volume 7.8, Neutrophils (%) (Auto) 67.7, Lymphocytes (%) (Auto) 22.7, Monocytes (%) (Auto) 4.9, Eosinophils (%) (Auto) 3.5H, Basophils (%) (Auto) 1.1, Sodium Level 143, Potassium Level 3.7, Chloride Level 103, Carbon Dioxide Level 35H, Anion Gap 6, Blood Urea Nitrogen 46H, Creatinine 1.9H, Estimat Glomerular Filtration Rate , Glucose Level 101, Calcium Level 9.7, Total Bilirubin 0.3, Aspartate Amino Transf (AST/SGOT) 25, Alanine Aminotransferase (ALT/SGPT) 34, Alkaline Phosphatase 81, Pro-B-Type Natriuretic Peptide 652H, Total Protein 7.3, Albumin 2.6L, Globulin 4.7, Albumin /Globulin Ratio 0.6L 06/11/18 17:10: Arterial Blood pH 7.406, Arterial Blood Partial Pressure CO2 56.7*H, Arterial Blood Partial Pressure O2 56.8L, Arterial Blood HCO3 34.8H, Arterial Blood Oxygen Saturation 89.7*L, Arterial Blood Base Excess 8.5H, David Test Positive Height (Feet): 5 Height (Inches): 4.00 Weight (Pounds): 120 General Appearance: mild distress Neck: non-tender Cardiovascular: normal rate, regular rhythm, no gallop/murmur, no JVD Respiratory/Chest: chest wall non-tender, normal breath sounds, no respiratory distress, decreased breath sounds Abdomen: non tender, soft, no mass Extremities: non-tender, normal inspection, no calf tenderness Edema: no edema noted Arm (L), no edema noted Arm (R), no edema noted Leg (L), no edema noted Leg (R), no edema noted Pedal (L), no edema noted Pedal (R), no edema noted Generalized Neurologic: furnace brazer II-XII grossly normal, alert, oriented x 3, responsive Lymphatic: normal anterior cervical (L), normal anterior cervical (R), normal posterior cervical (L), normal posterior cervical (R), normal submandibular (L) , normal submandibular (R), normal supraclavicular (L), normal supraclavicular ( R), normal axillary (L), normal axillary (R), normal inguinal (L), normal inguinal (R), normal other Cruz Valderrama MD Jun 11, 2018 17:21
--- NOTE | 2018-06-11 17:35 | NUR ---
NURSE NOTES: Dr Valderrama here to see pt. Labs ordered for am. Will continue to monitor.
--- NOTE | 2018-06-11 18:54 | NUR ---
NURSE NOTES: Son here visiting with pt. No acute distress. Will continue to monitor.
--- NOTE | 2018-06-11 18:55 | NUR ---
RESPIRATORY NOTE: Received pt. on BIPAP. BIPAP settings are: 20/10, PS of 10, rate of 16, FI02 55%. New BIPAP setting are: 18/8, PS 10, rate of 16, FI02 100%
--- NOTE | 2018-06-11 19:15 | NUR ---
HAND-OFF: Report given to Kane JI.
--- NOTE | 2018-06-11 19:20 | NUR ---
NURSE NOTES: Received report from MARGY Gamez. Pt is in bed, in no acute distress noted, her son is at the bedside. Afebrile at this time, VS stable, O2 sat at 100% with Bipap 18/8 FiO2 100%. Right UA PICC patent and asymptomatic with TKO. Pt's NPO at this time. Abdomen soft and non distended. Sinclair in place draining clear yellow urine with no apparent sediment. Will continue to monitor.
[2018-06-11] MEDS ORDERED: Tubing IV Secondary IV ONE ×2 (20:08→20:09)
[2018-06-11] MEDS: Miralax 17gm pkt ORAL SCH ×2 (21:00→21:09)
--- NOTE | 2018-06-11 21:00 | NUR ---
NURSE NOTES: Pt's resting in bed, asleep, in no distress. VS stable. OGT insertion unsuccessful, Dr Zaidi made aware, stated to have GI consult in the AM. Will continue to monitor.
[2018-06-11] MEDS: Dyna-Hex 2% Top Sol 2oz TOPIC SCH (21:09)
--- NOTE | 2018-06-11 21:42 | Pulmonolgy Critical Care Note ---
Critical Care - Asmt/Plan Assessment/Plan: Pulmonary Critical Care Progress Note History of Present Illness Present Illness HPI Patient is an 87 y/o female with hx of severe obstructive asthma, CHF, chronic hypercapnic respiratory failure admitted with respiratory distress and altered mental status. Apparently had R lung opacification and had been on BiPAP but was deemed to have failed bipap and intubated. She is currently on BiPAP, previously intubated. She has been treated with antibiotics for possible pneumonia. Some secretions noted. CXR todat NGT Right Stem Bronchus - now removed Allergies: Coded Allergies: Mushroom (Verified Allergy, Severe, 05/28/18) MORPHINE (Unverified Allergy, Intermediate, Itching, 01/04/15) PENICILLINS (Unverified Allergy, Intermediate, Hives, 01/04/15) CELECOXIB (Verified Allergy, Mild, 01/15/09) Medication History Scheduled Amiodarone Hcl* (Cordarone*), 200 MG ORAL DAILY Amlodipine Besylate (Norvasc), 5 MG ORAL DAILY, (Reported) Denosumab (Prolia), 60 MG SUBQ EVERY 6 MONTHS, (Reported) Donepezil Hcl* (Donepezil Hcl*), 5 MG ORAL HS, (Reported) Escitalopram Oxalate* (Lexapro*), 10 MG ORAL DAILY, (Reported) Fluticasone/Salmeterol (Advair 100-50 Diskus), 1 PUFF INH EVERY 12 HOURS, ( Reported) Furosemide* (Lasix*), 40 MG ORAL BID, (Reported) Hydrochlorothiazide* (Hydrochlorothiazide*), 25 MG ORAL DAILY, (Reported) Methylprednisolone* (Medrol*), 4 MG ORAL DAILY Mirtazapine* (Mirtazapine*), 15 MG ORAL BEDTIME, (Reported) Montelukast Sodium* (Singulair*), 10 MG ORAL DAILY, (Reported) Montelukast Sodium* (Singulair*), 10 MG ORAL BEDTIME, (Reported) Pantoprazole* (Pantoprazole*), 40 MG ORAL DAILY, (Reported) Potassium Gluconate (Potassium), 10 MEQ PO BID, (Reported) Tiotropium [place]* (Spiriva*), 1 PUFF INH DAILY, (Reported) Valsartan (Diovan), 160 MG ORAL BID, (Reported) Verapamil Hcl* (Calan*), 240 MG ORAL DAILY, (Reported) [vitamin B12], 1 ML IM ONCE A WEEK, (Reported) Scheduled PRN Albuterol Sulfate* (Albuterol Sulfate Hhn*), 3 ML INH Q6H PRN for Shortness of Breath, (Reported) Tramadol Hcl* (Ultram*), 50 MG ORAL Q6H PRN for For Pain, (Reported) Patient History Limited by: medical condition History Provided By: Medical Record Healthcare decision maker Resuscitation status Advanced Directive on File Yes Past Medical/Surgical History Past Medical/Surgical History: (1) COPD (chronic obstructive pulmonary disease) (2) CAD (coronary artery disease) Review of Systems ROS Narrative Unable to obtain due to patient factors Physical Exam General Appearance: WD/WN, no apparent distress, lethargic HEENT: normocephalic, atraumatic Respiratory/Chest: crackles/rales Cardiovascular/Chest: normal rate Abdomen: non tender, soft Extremities: no edema Vital Signs Noted Laboratory Tests Noted Test 06/06/18 04:00 06/06/18 09:45 White Blood Count 11.3 K/UL (4.8-10.8) H Red Blood Count 3.78 M/UL (4.20-5.40) L Hemoglobin 8.2 G/DL (12.0-16.0) L Hematocrit 26.2 % (37.0-47.0) L Mean Corpuscular Volume 69 FL (80-99) L Mean Corpuscular Hemoglobin 21.7 PG (27.0-31.0) L Mean Corpuscular Hemoglobin Concent 31.2 G/DL (32.0-36.0) L Red Cell Distribution Width 15.0 % (11.6-14.8) H Platelet Count 208 K/UL (150-450) Mean Platelet Volume 7.4 FL (6.5-10.1) Neutrophils (%) (Auto) 72.1 % (45.0-75.0) Lymphocytes (%) (Auto) 19.1 % (20.0-45.0) L Monocytes (%) (Auto) 5.6 % (1.0-10.0) Eosinophils (%) (Auto) 2.5 % (0.0-3.0) Basophils (%) (Auto) 0.7 % (0.0-2.0) Sodium Level 143 MMOL/L (136-145) Potassium Level 4.4 MMOL/L (3.5-5.1) Chloride Level 104 MMOL/L (98-107) Carbon Dioxide Level 36 MMOL/L (21-32) H Anion Gap 3 mmol/L (5-15) L Blood Urea Nitrogen 38 mg/dL (7-18) H Creatinine 1.5 MG/DL (0.55-1.30) H Estimat Glomerular Filtration Rate mL/min (>60) Glucose Level 126 MG/DL (74-106) H Uric Acid 4.6 MG/DL (2.6-7.2) Calcium Level 8.1 MG/DL (8.5-10.1) L Phosphorus Level 2.2 MG/DL (2.5-4.9) L Magnesium Level 2.5 MG/DL (1.8-2.4) H Total Bilirubin 0.2 MG/DL (0.2-1.0) Aspartate Amino Transf (AST/SGOT) 14 U/L (15-37) L Alanine Aminotransferase (ALT/SGPT) 13 U/L (12-78) Alkaline Phosphatase 64 U/L (46-116) Pro-B-Type Natriuretic Peptide 245 pg/mL (0-125) H Total Protein 5.7 G/DL (6.4-8.2) L Albumin 2.0 G/DL (3.4-5.0) L Globulin 3.7 g/dL Albumin/Globulin Ratio 0.5 (1.0-2.7) L Thyroid Stimulating Hormone (TSH) 0.722 uiU/mL (0.358-3.740) Arterial Blood pH 7.433 (7.350-7.450) Arterial Blood Partial Pressure CO2 52.2 mmHg (35.0-45.0) H Arterial Blood Partial Pressure O2 53.8 mmHg (75.0-100.0) L Arterial Blood HCO3 34.1 mmol/L (22.0-26.0) H Arterial Blood Oxygen Saturation 88.0 % (95-100) *L Arterial Blood Base Excess 8.7 (-2-2) H David Test Positive Height (Feet): 5 Height (Inches): 4.00 Weight (Pounds): 118 Medications Medications (Trade) Dose Ordered Sig/Ann Route PRN Reason Start Time Stop Time Status Last Admin Dose Admin Acetaminophen (Tylenol) 650 mg Q4H PRN ORAL fever (temp>100.5F) 06/02/18 13:30 06/27/18 13:29 06/04/18 16:12 Albuterol/ Ipratropium (Albuterol/ Ipratropium) 3 ml Q6HRT HHN 06/05/18 13:00 06/07/18 06:59 06/06/18 14:04 Amiodarone HCl (Cordarone) 100 mg DAILY ORAL 06/03/18 09:00 06/30/18 08:59 06/06/18 08:36 Amlodipine Besylate (Norvasc) 5 mg BID ORAL 06/02/18 18:00 06/27/18 08:59 06/06/18 08:42 Cefepime HCl 1 gm/ Dextrose 55 ml @ 110 mls/hr Q24H IV 06/03/18 09:00 06/09/18 08:59 06/06/18 08:35 Chlorhexidine Gluconate (Myra-Hex 2%) 1 applic DAILY@2000 TOPIC 06/02/18 20:00 07/02/18 19:59 06/05/18 19:55 Heparin Sodium (Porcine) (Heparin 5000 units/ml) 5,000 units EVERY 12 HOURS SUBQ 06/02/18 21:00 06/27/18 08:59 06/06/18 08:41 Lorazepam (Ativan 2mg/ml 1ml) 2 mg Q4H PRN IV For Anxiety 06/02/18 14:30 06/09/18 14:14 06/06/18 03:35 Nitroglycerin (Ntg) 0.4 mg Q5M PRN SL Prn Chest Pain 06/02/18 13:30 06/27/18 13:29 Ondansetron HCl (Zofran) 4 mg Q6H PRN IVP Nausea & Vomiting 06/02/18 13:30 06/27/18 07:29 Pantoprazole (Protonix) 40 mg DAILY IV 06/03/18 09:00 07/03/18 08:59 06/06/18 08:36 Polyethylene Glycol (Miralax) 17 gm BEDTIME ORAL 06/06/18 21:00 07/06/18 20:59 Polyethylene Glycol (Miralax) 17 gm DAILYPRN PRN ORAL Constipation 06/02/18 13:30 07/02/18 13:29 06/05/18 20:57 Quetiapine Fumarate (SEROquel) 12.5 mg BID ORAL 06/02/18 18:00 06/29/18 17:59 06/06/18 08:42 Quetiapine Fumarate (SEROquel) 25 mg Q6H PRN ORAL For Anxiety 06/02/18 13:30 06/29/18 13:29 Temazepam (Restoril) 15 mg HSPRN PRN ORAL Insomnia 06/02/18 20:00 06/09/18 19:59 Vancomycin HCl (Vanco rx to dose) 1 ea DAILY PRN MISC Per rx protocol 06/02/18 13:30 07/02/18 13:29 Vancomycin HCl 1 gm/Dextrose 275 ml @ 183.708 mls/hr Q36H IVPB 06/04/18 13:00 06/09/18 12:59 06/06/18 01:00 Assessment/Plan Assessment/Plan Problem List: 1. Acute on chronic hypercapnic respiratory failure 2. R lung collapse, possibly mucous plugging - improved 3. Pulmonary edema 4. chronic obstructive asthma 5. Pneumonia 6. Hx afib Plan: -BiPAP support, wean as tolerated -Consider NGT insertion by GI -monitor volumes, consider diuresis -good pulmonary hygiene -abx per ID Critical Care - Objective Last 24 Hour Vital Signs Date Time Temp Pulse Resp B/P (MAP) Pulse Ox O2 Delivery O2 Flow Rate FiO2 06/11/18 20:10 104 31 96 Bi-pap 80 06/11/18 20:00 98.4 100 30 127/56 (79) 100 06/11/18 20:00 99 06/11/18 20:00 100 06/11/18 20:00 Bi-pap Bi-pap 06/11/18 19:17 99 28 97 Bi-pap 100 06/11/18 19:00 97 29 108/52 (70) 93 06/11/18 18:59 97 27 92 Facial 100 06/11/18 18:00 100 27 134/62 (86) 93 06/11/18 17:42 96 145/60 06/11/18 17:00 96 25 145/60 (88) 93 06/11/18 16:59 94 27 92 Facial 55 06/11/18 16:00 98 06/11/18 16:00 98.2 105 30 91/47 (62) 89 06/11/18 16:00 10.0 45 06/11/18 16:00 Bi-pap Bi-pap 06/11/18 15:24 92 35 90 Facial 55 06/11/18 15:00 97 25 108/54 (72) 98 06/11/18 14:55 100 29 96 Bi-pap 40 06/11/18 14:50 100 32 93 Bi-pap 55 06/11/18 14:00 96 25 118/54 (75) 90 06/11/18 13:04 99 32 91 Facial 55 06/11/18 13:00 98.5 96 21 106/54 (71) 94 06/11/18 12:00 96 06/11/18 12:00 10.0 45 06/11/18 12:00 Bi-pap Bi-pap 06/11/18 12:00 93 20 92/57 (69) 93 06/11/18 11:00 98 20 116/41 (66) 92 06/11/18 10:54 99 19 95 Bi-pap 40 06/11/18 10:47 103 22 94 Bi-pap 40 06/11/18 10:15 95 28 92 Facial 55 06/11/18 10:00 110 27 143/65 (91) 85 06/11/18 09:00 108 18 153/63 (93) 97 06/11/18 09:00 99 143/65 06/11/18 08:00 10.0 45 06/11/18 08:00 98.7 94 24 130/55 (80) 88 06/11/18 08:00 88 06/11/18 08:00 Bi-pap Bi-pap 06/11/18 07:09 93 24 96 Nasal Cannula 3.0 32 06/11/18 07:00 94 20 96 Nasal Cannula 32 06/11/18 07:00 92 24 135/58 (83) 99 06/11/18 06:00 89 22 132/68 (89) 98 06/11/18 05:00 84 22 146/86 (106) 100 06/11/18 04:58 81 21 99 Facial 40 06/11/18 04:00 70 06/11/18 04:00 Bi-pap Bi-pap 06/11/18 04:00 86 06/11/18 04:00 91 23 134/57 (82) 99 06/11/18 03:16 92 23 95 Bi-pap 40 06/11/18 03:08 80 20 99 Facial 40 06/11/18 03:06 85 22 97 Bi-pap 40 06/11/18 03:00 82 20 123/64 (83) 97 06/11/18 02:00 77 17 119/59 (79) 97 06/11/18 01:07 81 19 99 Facial 40 06/11/18 01:00 98.5 82 19 100/53 (69) 97 06/11/18 00:00 91 06/11/18 00:00 83 17 119/51 (73) 98 06/11/18 00:00 Bi-pap Bi-pap 06/10/18 23:06 99 21 99 Bi-pap 40 06/10/18 23:00 90 22 116/51 (72) 99 06/10/18 22:59 89 21 99 Facial 40 06/10/18 22:56 91 20 99 Bi-pap 40 06/10/18 22:00 97 22 125/61 (82) 98 Critical Care - Subjective ROS Limited/Unobtainable: Yes Condition: stable FI02: 80 Vent Support Breath Rate: 8 Vent Support Mode: IMV/SIMV Vent Tidal Volume: 500 Sputum Amount: None PEEP: 5.0 PIP: 15 I&O: Intake and Output 06/10/18 06/11/18 19:00 07:00 Intake Total 480.000 ml Output Total 1740 ml 600 ml Balance -1260.000 ml -600 ml Free Water 150 ml IV Total 330.000 ml Output Urine Total 1740 ml 600 ml ET-Tube: 7.5 ET Position: 21 Clint Zaidi MD Jun 11, 2018 21:41
--- NOTE | 2018-06-11 22:38 | General Progress Note ---
Assessment/Plan Problem List: (1) encephalopathy due to toxin (2) Dementia ICD Codes: F03.90 - Unspecified dementia without behavioral disturbance SNOMED: [id number] Assessment/Plan Haldol Im on board Seroquel 25mg q 6hr prn cont restraints. Subjective Allergies: Coded Allergies: Mushroom (Verified Allergy, Severe, 05/28/18) MORPHINE (Unverified Allergy, Intermediate, Itching, 01/04/15) PENICILLINS (Unverified Allergy, Intermediate, Hives, 01/04/15) CELECOXIB (Verified Allergy, Mild, 01/15/09) Subjective more alert attempting to come out of bed extubate Objective Last 24 Hour Vital Signs Date Time Temp Pulse Resp B/P (MAP) Pulse Ox O2 Delivery O2 Flow Rate FiO2 06/11/18 20:10 104 31 96 Bi-pap 80 06/11/18 20:00 98.4 100 30 127/56 (79) 100 06/11/18 20:00 99 06/11/18 20:00 100 06/11/18 20:00 Bi-pap Bi-pap 06/11/18 19:17 99 28 97 Bi-pap 100 06/11/18 19:00 97 29 108/52 (70) 93 06/11/18 18:59 97 27 92 Facial 100 06/11/18 18:00 100 27 134/62 (86) 93 06/11/18 17:42 96 145/60 06/11/18 17:00 96 25 145/60 (88) 93 06/11/18 16:59 94 27 92 Facial 55 06/11/18 16:00 98 06/11/18 16:00 98.2 105 30 91/47 (62) 89 06/11/18 16:00 10.0 45 06/11/18 16:00 Bi-pap Bi-pap 06/11/18 15:24 92 35 90 Facial 55 06/11/18 15:00 97 25 108/54 (72) 98 06/11/18 14:55 100 29 96 Bi-pap 40 06/11/18 14:50 100 32 93 Bi-pap 55 06/11/18 14:00 96 25 118/54 (75) 90 06/11/18 13:04 99 32 91 Facial 55 06/11/18 13:00 98.5 96 21 106/54 (71) 94 06/11/18 12:00 96 06/11/18 12:00 10.0 45 06/11/18 12:00 Bi-pap Bi-pap 06/11/18 12:00 93 20 92/57 (69) 93 06/11/18 11:00 98 20 116/41 (66) 92 06/11/18 10:54 99 19 95 Bi-pap 40 06/11/18 10:47 103 22 94 Bi-pap 40 06/11/18 10:15 95 28 92 Facial 55 06/11/18 10:00 110 27 143/65 (91) 85 06/11/18 09:00 108 18 153/63 (93) 97 06/11/18 09:00 99 143/65 06/11/18 08:00 10.0 45 06/11/18 08:00 98.7 94 24 130/55 (80) 88 06/11/18 08:00 88 06/11/18 08:00 Bi-pap Bi-pap 06/11/18 07:09 93 24 96 Nasal Cannula 3.0 32 06/11/18 07:00 94 20 96 Nasal Cannula 32 06/11/18 07:00 92 24 135/58 (83) 99 06/11/18 06:00 89 22 132/68 (89) 98 06/11/18 05:00 84 22 146/86 (106) 100 06/11/18 04:58 81 21 99 Facial 40 06/11/18 04:00 70 06/11/18 04:00 Bi-pap Bi-pap 06/11/18 04:00 86 06/11/18 04:00 91 23 134/57 (82) 99 06/11/18 03:16 92 23 95 Bi-pap 40 06/11/18 03:08 80 20 99 Facial 40 06/11/18 03:06 85 22 97 Bi-pap 40 06/11/18 03:00 82 20 123/64 (83) 97 06/11/18 02:00 77 17 119/59 (79) 97 06/11/18 01:07 81 19 99 Facial 40 06/11/18 01:00 98.5 82 19 100/53 (69) 97 06/11/18 00:00 91 06/11/18 00:00 83 17 119/51 (73) 98 06/11/18 00:00 Bi-pap Bi-pap 06/10/18 23:06 99 21 99 Bi-pap 40 06/10/18 23:00 90 22 116/51 (72) 99 06/10/18 22:59 89 21 99 Facial 40 06/10/18 22:56 91 20 99 Bi-pap 40 Intake and Output 06/10/18 06/11/18 19:00 07:00 Intake Total 480.000 ml Output Total 1740 ml 600 ml Balance -1260.000 ml -600 ml Free Water 150 ml IV Total 330.000 ml Output Urine Total 1740 ml 600 ml Laboratory Tests 06/11/18 04:30: White Blood Count 9.9, Red Blood Count 4.75, Hemoglobin 10.7L, Hematocrit 35.5L , Mean Corpuscular Volume 75L, Mean Corpuscular Hemoglobin 22.5L, Mean Corpuscular Hemoglobin Concent 30.2L, Red Cell Distribution Width 18.2H, Platelet Count 384, Mean Platelet Volume 7.8, Neutrophils (%) (Auto) 67.7, Lymphocytes (%) (Auto) 22.7, Monocytes (%) (Auto) 4.9, Eosinophils (%) (Auto) 3.5H, Basophils (%) (Auto) 1.1, Sodium Level 143, Potassium Level 3.7, Chloride Level 103, Carbon Dioxide Level 35H, Anion Gap 6, Blood Urea Nitrogen 46H, Creatinine 1.9H, Estimat Glomerular Filtration Rate , Glucose Level 101, Calcium Level 9.7, Total Bilirubin 0.3, Aspartate Amino Transf (AST/SGOT) 25, Alanine Aminotransferase (ALT/SGPT) 34, Alkaline Phosphatase 81, Pro-B-Type Natriuretic Peptide 652H, Total Protein 7.3, Albumin 2.6L, Globulin 4.7, Albumin /Globulin Ratio 0.6L 06/11/18 17:10: Arterial Blood pH 7.406, Arterial Blood Partial Pressure CO2 56.7*H, Arterial Blood Partial Pressure O2 56.8L, Arterial Blood HCO3 34.8H, Arterial Blood Oxygen Saturation 89.7*L, Arterial Blood Base Excess 8.5H, David Test Positive Height (Feet): 5 Height (Inches): 4.00 Weight (Pounds): 120 General Appearance: confused, agitated Liz Lo MD Jun 11, 2018 22:38
--- NOTE | 2018-06-11 23:00 | NUR ---
NURSE NOTES: Pt's resting in bed, asleep, in no acute distress. VS stable, on Bipap 18/8 FiO2 80%. Will continue to monitor.
[2018-06-12] VITALS (18 sets, daily range): BP systolic 111–164; BP diastolic 50–81
--- NOTE | 2018-06-12 01:00 | NUR ---
NURSE NOTES: Pt's resting in bed, asleep, in no acute distress. VS stable, on Bipap 18/8 FiO2 80%. Will continue to monitor.
--- NOTE | 2018-06-12 03:00 | NUR ---
NURSE NOTES: Pt's resting in bed, asleep, in no acute distress. VS stable, on Bipap 18/8 FiO2 80%. Will continue to monitor.
[2018-06-12] MEDS: Acetylcysteine 20% Soln 4ml HHN SCH ×6 (03:48→23:27)
[2018-06-12] MEDS: Albuterol/Ipratropium 3ml neb HHN SCH ×6 (03:48→23:25)
--- NOTE | 2018-06-12 05:00 | NUR ---
NURSE NOTES: Pt's resting in bed, asleep, in no acute distress. VS stable, on Bipap 18/8 FiO2 80%. Will continue to monitor.
[2018-06-12 05:13] LABS: BASOPHILS % (AUTO) 0.9 % (0.0-2.0); EOSINOPHILS % (AUTO) 1.3 % (0.0-3.0); HEMATOCRIT 34.7 % (37.0-47.0); HEMOGLOBIN 10.7 G/DL (12.0-16.0); LYMPHOCYTES % (AUTO) 11.9 % (20.0-45.0); MEAN CORPUSCULAR VOLUME 74 FL (80-99); MONOCYTES % (AUTO) 6.4 % (1.0-10.0); NEUTROPHILS % (AUTO) 79.6 % (45.0-75.0); PLATELET COUNT 413 K/UL (150-450); RED CELL DISTRIBUTION WIDTH 18.3 % (11.6-14.8); WHITE BLOOD COUNT 13.5 K/UL (4.8-10.8)
[2018-06-12 05:19] LABS: ANION GAP 7 mmol/L (5-15); BLOOD UREA NITROGEN 53 mg/dL (7-18); CALCIUM 9.7 MG/DL (8.5-10.1); CARBON DIOXIDE 33 MMOL/L (21-32); CHLORIDE 103 MMOL/L (98-107); CREATININE 2.1 MG/DL (0.55-1.30); POTASSIUM 3.5 MMOL/L (3.5-5.1); SODIUM 143 MMOL/L (136-145)
--- NOTE | 2018-06-12 07:00 | NUR ---
HAND-OFF: Report given to MARGY Hernandez.
--- NOTE | 2018-06-12 07:00 | NUR ---
Received patient on BIPAP 18/8 PS 10 HDD178% BUR 16. Currently on full face mask tolerating BIPAP well. Will continue to monitor throughout the day.
--- NOTE | 2018-06-12 07:15 | NUR ---
NURSE NOTES: Received pt, Pt is alert and awake, opens eyes spontaneously, confused. Currently on BIPAP 18/8, 80%. RR 26. brad wrist restraints in place. No gt access, will try to insert. ST w/PVC's on manager cardiac; HR 108. MILY PICC noted, TKO. patent and asymptomatic. Bed locked, alarmed and in lowest position. Will continue plan of care.
[2018-06-12] MEDS: LORazepam Inj 2mg/ml 1ml IV PRN (08:00)
--- NOTE | 2018-06-12 08:30 | NUR ---
NURSE NOTES: 12 Fr. NGT inserted in right nare. STAT KUB ordered for placement.
--- NOTE | 2018-06-12 08:59 | Infectious Diseases Prog Note ---
Assessment/Plan Assessment/Plan 87 yo feamle with PMHx of COPD, HTN, and A.fib sent to the ED from her nuring home for SOB. Sepsis - Likely PNA 05/28/18 CXR with atalectasis vs consolidation in the right side. 06/01/18 CXR - Extensive right hemithorax opacification UA (-) Sputum Cx 05/28/18 - MRSA (Inf Neg) Urine legionella (-) Positive blood Cx - Likely contaminant BCx 05/28/18 - CoNS BCX 05/30/18 - NGTD Leukocytosis 15 on admit - now resolved Febrile to 101.5 - now resolved COPD CAD A. fib Extubated 06/11/18 PLAN - Continue Cefepime # and vancomycin #16 - Monitor CBC and Temps We will continue to follow Ms. Nowak during this hospitalization. Subjective Allergies: Coded Allergies: Mushroom (Verified Allergy, Severe, 05/28/18) MORPHINE (Unverified Allergy, Intermediate, Itching, 01/04/15) PENICILLINS (Unverified Allergy, Intermediate, Hives, 01/04/15) CELECOXIB (Verified Allergy, Mild, 01/15/09) Subjective On BiPAP 45% Afebrile Mild Leukocytosis Objective Vital Signs Last 24 Hour Vital Signs Date Time Temp Pulse Resp B/P (MAP) Pulse Ox O2 Delivery O2 Flow Rate FiO2 06/12/18 08:00 Bi-pap Bi-pap 06/12/18 07:00 98.5 92 26 124/50 (74) 96 06/12/18 06:53 91 25 97 Full Face 45 06/12/18 06:52 90 26 99 Bi-pap 45 06/12/18 06:45 91 26 98 Bi-pap 55 06/12/18 06:00 92 26 117/60 (79) 99 06/12/18 05:00 91 22 111/63 (79) 99 06/12/18 04:44 93 27 98 Full Face 80 06/12/18 04:00 96 28 116/51 (72) 97 06/12/18 04:00 80 06/12/18 04:00 99 06/12/18 04:00 92 27 99 Bi-pap 80 06/12/18 04:00 Bi-pap Bi-pap 06/12/18 03:49 103 30 97 Bi-pap 80 06/12/18 03:00 101 26 98 Full Face 80 06/12/18 03:00 98 30 127/65 (85) 95 06/12/18 02:00 98.4 103 33 132/72 (92) 93 06/12/18 01:52 103 21 Bi-pap 80 06/12/18 01:30 103 33 96 Full Face 80 06/12/18 01:00 108 28 130/60 (83) 90 06/12/18 00:00 80 06/12/18 00:00 99 06/12/18 00:00 Bi-pap Bi-pap 06/12/18 00:00 111 32 127/52 (77) 92 06/11/18 23:36 105 31 97 Bi-pap 80 06/11/18 23:14 103 31 97 Facial 80 06/11/18 23:10 101 31 97 Bi-pap 80 06/11/18 23:00 101 24 127/52 (77) 94 06/11/18 22:00 101 24 112/57 (75) 94 06/11/18 21:15 89 26 96 Facial 90 06/11/18 21:00 101 24 144/66 (92) 94 06/11/18 20:10 104 31 96 Bi-pap 80 06/11/18 20:00 98.4 100 30 127/56 (79) 100 06/11/18 20:00 99 06/11/18 20:00 100 06/11/18 20:00 Bi-pap Bi-pap 06/11/18 19:17 99 28 97 Bi-pap 100 06/11/18 19:00 97 29 108/52 (70) 93 06/11/18 18:59 97 27 92 Facial 100 06/11/18 18:00 100 27 134/62 (86) 93 06/11/18 17:42 96 145/60 06/11/18 17:00 96 25 145/60 (88) 93 06/11/18 16:59 94 27 92 Facial 55 06/11/18 16:00 98 06/11/18 16:00 98.2 105 30 91/47 (62) 89 06/11/18 16:00 10.0 45 06/11/18 16:00 Bi-pap Bi-pap 06/11/18 15:24 92 35 90 Facial 55 06/11/18 15:00 97 25 108/54 (72) 98 06/11/18 14:55 100 29 96 Bi-pap 40 06/11/18 14:50 100 32 93 Bi-pap 55 06/11/18 14:00 96 25 118/54 (75) 90 06/11/18 13:04 99 32 91 Facial 55 06/11/18 13:00 98.5 96 21 106/54 (71) 94 06/11/18 12:00 96 06/11/18 12:00 10.0 45 06/11/18 12:00 Bi-pap Bi-pap 06/11/18 12:00 93 20 92/57 (69) 93 06/11/18 11:00 98 20 116/41 (66) 92 06/11/18 10:54 99 19 95 Bi-pap 40 06/11/18 10:47 103 22 94 Bi-pap 40 06/11/18 10:15 95 28 92 Facial 55 06/11/18 10:00 110 27 143/65 (91) 85 06/11/18 09:00 108 18 153/63 (93) 97 06/11/18 09:00 99 143/65 Height (Feet): 5 Height (Inches): 4.00 Weight (Pounds): 120 Objective General: NAD, On BiPAP HEENT: normocephalic, atraumatic, DMM, EOMI LUNGS: CTAB HEART; RRR Abdomen: Soft, NT, ND, + BS Laboratory Tests Test 06/11/18 17:10 06/12/18 03:00 06/12/18 08:15 Arterial Blood pH 7.406 (7.350-7.450) 7.410 (7.350-7.450) Arterial Blood Partial Pressure CO2 56.7 mmHg (35.0-45.0) *H 51.0 mmHg (35.0-45.0) H Arterial Blood Partial Pressure O2 56.8 mmHg (75.0-100.0) L 60.5 mmHg (75.0-100.0) L Arterial Blood HCO3 34.8 mmol/L (22.0-26.0) H 31.6 mmol/L (22.0-26.0) H Arterial Blood Oxygen Saturation 89.7 % (95-100) *L 89.7 % (95-100) *L Arterial Blood Base Excess 8.5 (-2-2) H 5.9 (-2-2) H David Test Positive N/a White Blood Count 13.5 K/UL (4.8-10.8) H Red Blood Count 4.70 M/UL (4.20-5.40) Hemoglobin 10.7 G/DL (12.0-16.0) L Hematocrit 34.7 % (37.0-47.0) L Mean Corpuscular Volume 74 FL (80-99) L Mean Corpuscular Hemoglobin 22.7 PG (27.0-31.0) L Mean Corpuscular Hemoglobin Concent 30.9 G/DL (32.0-36.0) L Red Cell Distribution Width 18.3 % (11.6-14.8) H Platelet Count 413 K/UL (150-450) Mean Platelet Volume 8.3 FL (6.5-10.1) Neutrophils (%) (Auto) 79.6 % (45.0-75.0) H Lymphocytes (%) (Auto) 11.9 % (20.0-45.0) L Monocytes (%) (Auto) 6.4 % (1.0-10.0) Eosinophils (%) (Auto) 1.3 % (0.0-3.0) Basophils (%) (Auto) 0.9 % (0.0-2.0) Sodium Level 143 MMOL/L (136-145) Potassium Level 3.5 MMOL/L (3.5-5.1) Chloride Level 103 MMOL/L (98-107) Carbon Dioxide Level 33 MMOL/L (21-32) H Anion Gap 7 mmol/L (5-15) Blood Urea Nitrogen 53 mg/dL (7-18) H Creatinine 2.1 MG/DL (0.55-1.30) H Estimat Glomerular Filtration Rate mL/min (>60) Glucose Level 98 MG/DL (74-106) Calcium Level 9.7 MG/DL (8.5-10.1) Vancomycin Level Trough 24.3 ug/mL (5.0-12.0) H Current Medications Medications (Trade) Dose Ordered Sig/Ann Route PRN Reason Start Time Stop Time Status Last Admin Dose Admin Acetaminophen (Tylenol) 650 mg Q4H PRN ORAL Mild Pain/Temp > 100.5 06/07/18 09:30 06/27/18 13:29 06/10/18 16:26 Acetylcysteine (Mucomyst) 100 mg Q4HRT HHN 06/09/18 23:00 07/09/18 21:29 06/12/18 06:55 Albuterol/ Ipratropium (Albuterol/ Ipratropium) 3 ml Q4HRT HHN 06/09/18 23:00 06/14/18 22:59 06/12/18 06:55 Amiodarone HCl (Cordarone) 100 mg DAILY ORAL 06/03/18 09:00 06/30/18 08:59 06/10/18 08:32 Amlodipine Besylate (Norvasc) 5 mg BID ORAL 06/02/18 18:00 06/27/18 08:59 06/10/18 08:31 Cefepime HCl 1 gm/ Dextrose 55 ml @ 110 mls/hr Q24H IV 06/03/18 09:00 06/17/18 23:59 06/11/18 08:46 Chlorhexidine Gluconate (Myra-Hex 2%) 1 applic DAILY@2000 TOPIC 06/02/18 20:00 07/02/18 19:59 06/11/18 21:09 Furosemide (Lasix) 20 mg DAILY IV 06/09/18 21:30 07/09/18 21:29 06/11/18 08:43 Haloperidol Lactate (Haldol) 5 mg Q6H PRN IM Agitation 06/08/18 12:15 07/08/18 12:14 06/11/18 09:31 Heparin Sodium (Porcine) (Heparin 5000 units/ml) 5,000 units EVERY 12 HOURS SUBQ 06/02/18 21:00 06/27/18 08:59 06/11/18 21:10 Lorazepam (Ativan 2mg/ml 1ml) 0.5 mg Q3H PRN IV For Anxiety 06/11/18 15:12 06/18/18 15:11 06/12/18 08:00 Nitroglycerin (Ntg) 0.4 mg Q5M PRN SL Prn Chest Pain 06/02/18 13:30 06/27/18 13:29 Ondansetron HCl (Zofran) 4 mg Q6H PRN IVP Nausea & Vomiting 06/02/18 13:30 06/27/18 07:29 Pantoprazole (Protonix) 40 mg DAILY IV 06/03/18 09:00 07/03/18 08:59 06/11/18 08:43 Polyethylene Glycol (Miralax) 17 gm BEDTIME ORAL 06/06/18 21:00 07/06/18 20:59 06/09/18 22:26 Polyethylene Glycol (Miralax) 17 gm DAILYPRN PRN ORAL Constipation 06/02/18 13:30 07/02/18 13:29 06/05/18 20:57 Quetiapine Fumarate (SEROquel) 25 mg Q6H PRN ORAL For Anxiety 06/02/18 13:30 06/29/18 13:29 06/11/18 07:37 Vancomycin HCl (Vanco rx to dose) 1 ea DAILY PRN MISC Per rx protocol 06/02/18 13:30 07/02/18 13:29 Vancomycin HCl 750 mg/Sodium Chloride 275 ml @ 183.333 mls/hr Q48H IVPB 06/12/18 16:00 06/17/18 15:59 Clint Harris MD Jun 12, 2018 08:59
--- NOTE | 2018-06-12 09:53 | Diagnostic Imaging Report ---
EXAM: XR Abdomen, 2 Views CLINICAL HISTORY: NGT TECHNIQUE: Frontal view of the abdomen/pelvis with upright view of the abdomen. COMPARISON: KUB 06/11/182013 FINDINGS: Lower thorax: Small right pleural effusion. Gastrointestinal tract: Unremarkable. No dilation. Bones/joints: Generative changes of the spine. Tubes, lines and devices: NG tube has been pulled back. Tip is in the stomach. IMPRESSION: NG tube has been pulled back. Tip is in the stomach.
[2018-06-12] MEDS: Pantoprazole Inj IV SCH (09:57)
[2018-06-12] MEDS: Cefepime HCl 1 GM in D5W 55 ML IV SCH (09:58)
[2018-06-12] MEDS: Heparin 5000 units/ml inj SUBQ SCH ×2 (09:59→21:31)
--- NOTE | 2018-06-12 11:55 | Nephrology Progress Note ---
Assessment/Plan Problem List: (1) Urinary outflow obstruction Assessment: resolved after grewal (2) Acute respiratory failure (3) Dementia (4) Afib Assessment Urinary out let obstruction, relieved after grewal Normal serum Cr Anemia, Low MCV High Ca corrected for low ALbumin other conditions: (1) Acute respiratory failure (2) Aspiration pneumonia (3) Acute encephalopathy (4) Pleural effusion (5) COPD (chronic obstructive pulmonary disease) (6) CAD (coronary artery disease) (7) Dementia Plan extubated now- on BIPAP DC Lasix Fluid challenge K and Phos and Mag as needed slow Hydrate Anemia porter Adjust BP meds fu Lytes Gastric support pulm support- not tolerating bipap consider tube feeding ( PEG) as po is POOR Subjective ROS Limited/Unobtainable: Yes Objective Objective Last 24 Hour Vital Signs Date Time Temp Pulse Resp B/P (MAP) Pulse Ox O2 Delivery O2 Flow Rate FiO2 06/12/18 10:57 95 32 98 Full Face 45 06/12/18 10:55 102 29 98 Bi-pap 45 06/12/18 10:50 100 28 98 Bi-pap 55 06/12/18 09:17 107 36 85 Full Face 45 06/12/18 08:00 80 06/12/18 08:00 Bi-pap Bi-pap 06/12/18 08:00 103 06/12/18 07:00 98.5 92 26 124/50 (74) 96 06/12/18 06:53 91 25 97 Full Face 45 06/12/18 06:52 90 26 99 Bi-pap 45 06/12/18 06:45 91 26 98 Bi-pap 55 06/12/18 06:00 92 26 117/60 (79) 99 06/12/18 05:00 91 22 111/63 (79) 99 06/12/18 04:44 93 27 98 Full Face 80 06/12/18 04:00 96 28 116/51 (72) 97 06/12/18 04:00 80 06/12/18 04:00 99 06/12/18 04:00 92 27 99 Bi-pap 80 06/12/18 04:00 Bi-pap Bi-pap 06/12/18 03:49 103 30 97 Bi-pap 80 06/12/18 03:00 101 26 98 Full Face 80 06/12/18 03:00 98 30 127/65 (85) 95 06/12/18 02:00 98.4 103 33 132/72 (92) 93 06/12/18 01:52 103 21 Bi-pap 80 06/12/18 01:30 103 33 96 Full Face 80 06/12/18 01:00 108 28 130/60 (83) 90 06/12/18 00:00 80 06/12/18 00:00 99 06/12/18 00:00 Bi-pap Bi-pap 06/12/18 00:00 111 32 127/52 (77) 92 06/11/18 23:36 105 31 97 Bi-pap 80 06/11/18 23:14 103 31 97 Facial 80 06/11/18 23:10 101 31 97 Bi-pap 80 06/11/18 23:00 101 24 127/52 (77) 94 06/11/18 22:00 101 24 112/57 (75) 94 06/11/18 21:15 89 26 96 Facial 90 06/11/18 21:00 101 24 144/66 (92) 94 06/11/18 20:10 104 31 96 Bi-pap 80 06/11/18 20:00 98.4 100 30 127/56 (79) 100 06/11/18 20:00 99 06/11/18 20:00 100 06/11/18 20:00 Bi-pap Bi-pap 06/11/18 19:17 99 28 97 Bi-pap 100 06/11/18 19:00 97 29 108/52 (70) 93 06/11/18 18:59 97 27 92 Facial 100 06/11/18 18:00 100 27 134/62 (86) 93 06/11/18 17:42 96 145/60 06/11/18 17:00 96 25 145/60 (88) 93 06/11/18 16:59 94 27 92 Facial 55 06/11/18 16:00 98 06/11/18 16:00 98.2 105 30 91/47 (62) 89 06/11/18 16:00 10.0 45 06/11/18 16:00 Bi-pap Bi-pap 06/11/18 15:24 92 35 90 Facial 55 06/11/18 15:00 97 25 108/54 (72) 98 06/11/18 14:55 100 29 96 Bi-pap 40 06/11/18 14:50 100 32 93 Bi-pap 55 06/11/18 14:00 96 25 118/54 (75) 90 06/11/18 13:04 99 32 91 Facial 55 06/11/18 13:00 98.5 96 21 106/54 (71) 94 06/11/18 12:00 96 06/11/18 12:00 10.0 45 06/11/18 12:00 Bi-pap Bi-pap 06/11/18 12:00 93 20 92/57 (69) 93 Intake and Output 06/11/18 06/12/18 18:59 06:59 Intake Total 55 ml Output Total 600 ml 460 ml Balance -545 ml -460 ml IV Total 55 ml Output Urine Total 600 ml 460 ml Laboratory Tests 06/11/18 17:10: Arterial Blood pH 7.406, Arterial Blood Partial Pressure CO2 56.7*H, Arterial Blood Partial Pressure O2 56.8L, Arterial Blood HCO3 34.8H, Arterial Blood Oxygen Saturation 89.7*L, Arterial Blood Base Excess 8.5H, David Test Positive 06/12/18 03:00: White Blood Count 13.5H, Red Blood Count 4.70, Hemoglobin 10.7L, Hematocrit 34.7L, Mean Corpuscular Volume 74L, Mean Corpuscular Hemoglobin 22.7L, Mean Corpuscular Hemoglobin Concent 30.9L, Red Cell Distribution Width 18.3H, Platelet Count 413, Mean Platelet Volume 8.3, Neutrophils (%) (Auto) 79.6H, Lymphocytes (%) (Auto) 11.9L, Monocytes (%) (Auto) 6.4, Eosinophils (%) (Auto) 1.3, Basophils (%) (Auto) 0.9, Sodium Level 143, Potassium Level 3.5, Chloride Level 103, Carbon Dioxide Level 33H, Anion Gap 7, Blood Urea Nitrogen 53H, Creatinine 2.1H, Estimat Glomerular Filtration Rate , Glucose Level 98, Calcium Level 9.7, Vancomycin Level Trough 24.3H 06/12/18 08:15: Arterial Blood pH 7.410, Arterial Blood Partial Pressure CO2 51.0H, Arterial Blood Partial Pressure O2 60.5L, Arterial Blood HCO3 31.6H, Arterial Blood Oxygen Saturation 89.7*L, Arterial Blood Base Excess 5.9H, David Test N/a Height (Feet): 5 Height (Inches): 4.00 Weight (Pounds): 120 General Appearance: no apparent distress EENT: other - BIPAP Cardiovascular: tachycardia Respiratory/Chest: decreased breath sounds Abdomen: distended Objective no change Kendrick Jimenez MD Jun 12, 2018 11:55
--- NOTE | 2018-06-12 12:45 | Diagnostic Imaging Report ---
EXAM: XR Abdomen, 2 Views CLINICAL HISTORY: NGT TECHNIQUE: Frontal view of the abdomen/pelvis with upright view of the abdomen. COMPARISON: Abdomen film 06/12/18 858 FINDINGS: Lower thorax: Small right pleural effusion. Intraperitoneal space: No free air. Gastrointestinal tract: Unremarkable. No dilation. Bones/joints: Bilateral hip dynamic hip screws. Tubes, lines and devices: NG tube has been pulled back, the proximal side-port at the gastroesophageal junction, maybe advanced 8 cm. IMPRESSION: NG tube has been pulled back, the proximal side-port at the gastroesophageal junction, maybe advanced 8 cm. Critical Value Communications 06/12/18 12:57 Verify Receipt with Nurse Verified receipt with MARGY Hernandez on 06/12 12:57 (-08:00) 06/12/18 12:58 Call From Hospital MARGY Hernandez on 06/12 12:58 (-08:00)
--- NOTE | 2018-06-12 13:20 | NUR ---
HAND-OFF: Report given to MARGY Lambert.
--- NOTE | 2018-06-12 13:30 | NUR ---
NURSE NOTES: Patient received from MARGY Hernandez. Patient observed bedside to be very drowsy. Patient is arousable, however falls back to sleep very easily. Patient received sedative earlier. Will attempt to stimulate patient with repositioning to wake patient up. RT is bedside working on patient's BIPAP. Patient was desat'ing. Patient is now awake and O2 Sats are above 92% on . Patient is being monitored on the campus monitor VS 163/78, HR 110, SPO2 92, RR 28. Patient is on the BIPAP and tolerating. Upon auscultation, patient with rhonchi and rales. Patient has both oral secretions that were deep suctioned. Patient has a newly placed NGT in LNares waiting for confirmation of placement. Patient is currently NPO. Patient has hypoactive belly sounds in all four quadrants. Patient has a MILY PICC that is TKO. Patient is very impulsive with pulling at her lines and is on BL soft restraints. Skin is intact and pulses are palpable. Safety measures are in place with bed locked in the lowest position, HOB elevated and call light within reach. Will continue to monitor and follow plan of care.
--- NOTE | 2018-06-12 13:54 | NUR ---
CASE MANAGEMENT: REVIEW 06/12/2018 SI: A-FIB . CAD . COPD T 98.5 HR 92 RR 26 B/P 124/50 SATS 96% ON BIPAP FiO2 80 WBC 13.5 CO2 33 BUN 53 CR 2.1 ABGs pCO2 51 pO2 60.5 HCO3 31.6 O2 SAT 89.7 BE 5.9 IS: DIAMOX PO BID ALBUTEROL HHN Q4HR MUCOMYST HHN Q4HR LASIX IV QD VANCO IV Q36HR CEFEPIME IV Q24HR AMIODARONE PO QD ICU STATUS DCP: PATIENT IS FROM [facility]
--- NOTE | 2018-06-12 14:26 | GI Progress Note ---
Assessment/Plan Problems: (1) Severe malnutrition ICD Codes: E43 - Unspecified severe protein-calorie malnutrition SNOMED: 96761212 (2) Dementia ICD Codes: F03.90 - Unspecified dementia without behavioral disturbance SNOMED: 94188828 (3) Confused ICD Codes: R41.0 - Disorientation, unspecified SNOMED: 052960999 (4) Encounter for PEG (percutaneous endoscopic gastrostomy) ICD Codes: Z43.1 - Encounter for attention to gastrostomy SNOMED: 545342745, 041138117 (5) Failure to thrive SNOMED: 76757068 (6) Acute encephalopathy ICD Codes: G93.40 - Encephalopathy, unspecified SNOMED: 7304012 Status: unchanged Status Narrative Discussed with Dr. Acevedo. Assessment/Plan Assessment - Resp failure - NGT dependent - COPD - CHF - PNA - Anemia - Poor prognosis -No plans for tracheostomy as of yet, patient has failed weening multiple times. Now on BiPAP. Recommendations - NGT feeds, discussed with family regarding PEG placement. >> Will schedule if agrees . - Vent care - Elevated HOB - Monitor residuals - Abx - Pulmonary toilet -Follow labs The patient was seen and examined at bedside and all new and available data was reviewed in the patients chart. I agree with the above findings, impression and plan. (Patient seen earlier today. Signature stamp does not reflect patient encounter time.). - Jacobo Acevedo MD Subjective Subjective Limited Objective Last 24 Hour Vital Signs Date Time Temp Pulse Resp B/P (MAP) Pulse Ox O2 Delivery O2 Flow Rate FiO2 06/12/18 13:14 65 06/12/18 13:08 136 40 87 Full Face 65 06/12/18 12:00 109 26 126/78 (94) 99 06/12/18 12:00 Bi-pap Bi-pap 06/12/18 12:00 80 06/12/18 11:00 81 26 124/74 (91) 99 06/12/18 10:57 95 32 98 Full Face 45 06/12/18 10:55 102 29 98 Bi-pap 45 06/12/18 10:50 100 28 98 Bi-pap 55 06/12/18 10:00 82 26 126/80 (95) 99 06/12/18 09:17 107 36 85 Full Face 45 06/12/18 09:00 86 26 123/81 (95) 99 06/12/18 08:00 85 26 120/60 (80) 99 06/12/18 08:00 80 06/12/18 08:00 Bi-pap Bi-pap 06/12/18 08:00 103 06/12/18 07:00 98.5 92 26 124/50 (74) 96 06/12/18 06:53 91 25 97 Full Face 45 06/12/18 06:52 90 26 99 Bi-pap 45 06/12/18 06:45 91 26 98 Bi-pap 55 06/12/18 06:00 92 26 117/60 (79) 99 06/12/18 05:00 91 22 111/63 (79) 99 06/12/18 04:44 93 27 98 Full Face 80 06/12/18 04:00 96 28 116/51 (72) 97 06/12/18 04:00 80 06/12/18 04:00 99 06/12/18 04:00 92 27 99 Bi-pap 80 06/12/18 04:00 Bi-pap Bi-pap 06/12/18 03:49 103 30 97 Bi-pap 80 06/12/18 03:00 101 26 98 Full Face 80 06/12/18 03:00 98 30 127/65 (85) 95 06/12/18 02:00 98.4 103 33 132/72 (92) 93 06/12/18 01:52 103 21 Bi-pap 80 06/12/18 01:30 103 33 96 Full Face 80 06/12/18 01:00 108 28 130/60 (83) 90 06/12/18 00:00 80 06/12/18 00:00 99 06/12/18 00:00 Bi-pap Bi-pap 06/12/18 00:00 111 32 127/52 (77) 92 06/11/18 23:36 105 31 97 Bi-pap 80 06/11/18 23:14 103 31 97 Facial 80 06/11/18 23:10 101 31 97 Bi-pap 80 06/11/18 23:00 101 24 127/52 (77) 94 06/11/18 22:00 101 24 112/57 (75) 94 06/11/18 21:15 89 26 96 Facial 90 06/11/18 21:00 101 24 144/66 (92) 94 06/11/18 20:10 104 31 96 Bi-pap 80 06/11/18 20:00 98.4 100 30 127/56 (79) 100 06/11/18 20:00 99 06/11/18 20:00 100 06/11/18 20:00 Bi-pap Bi-pap 06/11/18 19:17 99 28 97 Bi-pap 100 06/11/18 19:00 97 29 108/52 (70) 93 06/11/18 18:59 97 27 92 Facial 100 06/11/18 18:00 100 27 134/62 (86) 93 06/11/18 17:42 96 145/60 06/11/18 17:00 96 25 145/60 (88) 93 06/11/18 16:59 94 27 92 Facial 55 06/11/18 16:00 98 06/11/18 16:00 98.2 105 30 91/47 (62) 89 06/11/18 16:00 10.0 45 06/11/18 16:00 Bi-pap Bi-pap 06/11/18 15:24 92 35 90 Facial 55 06/11/18 15:00 97 25 108/54 (72) 98 06/11/18 14:55 100 29 96 Bi-pap 40 06/11/18 14:50 100 32 93 Bi-pap 55 Intake and Output 06/11/18 06/12/18 19:00 07:00 Intake Total 55 ml Output Total 600 ml 440 ml Balance -545 ml -440 ml IV Total 55 ml Output Urine Total 600 ml 440 ml Laboratory Tests Test 06/11/18 17:10 06/12/18 03:00 06/12/18 08:15 Arterial Blood pH 7.406 (7.350-7.450) 7.410 (7.350-7.450) Arterial Blood Partial Pressure CO2 56.7 mmHg (35.0-45.0) *H 51.0 mmHg (35.0-45.0) H Arterial Blood Partial Pressure O2 56.8 mmHg (75.0-100.0) L 60.5 mmHg (75.0-100.0) L Arterial Blood HCO3 34.8 mmol/L (22.0-26.0) H 31.6 mmol/L (22.0-26.0) H Arterial Blood Oxygen Saturation 89.7 % (95-100) *L 89.7 % (95-100) *L Arterial Blood Base Excess 8.5 (-2-2) H 5.9 (-2-2) H David Test Positive N/a White Blood Count 13.5 K/UL (4.8-10.8) H Red Blood Count 4.70 M/UL (4.20-5.40) Hemoglobin 10.7 G/DL (12.0-16.0) L Hematocrit 34.7 % (37.0-47.0) L Mean Corpuscular Volume 74 FL (80-99) L Mean Corpuscular Hemoglobin 22.7 PG (27.0-31.0) L Mean Corpuscular Hemoglobin Concent 30.9 G/DL (32.0-36.0) L Red Cell Distribution Width 18.3 % (11.6-14.8) H Platelet Count 413 K/UL (150-450) Mean Platelet Volume 8.3 FL (6.5-10.1) Neutrophils (%) (Auto) 79.6 % (45.0-75.0) H Lymphocytes (%) (Auto) 11.9 % (20.0-45.0) L Monocytes (%) (Auto) 6.4 % (1.0-10.0) Eosinophils (%) (Auto) 1.3 % (0.0-3.0) Basophils (%) (Auto) 0.9 % (0.0-2.0) Sodium Level 143 MMOL/L (136-145) Potassium Level 3.5 MMOL/L (3.5-5.1) Chloride Level 103 MMOL/L (98-107) Carbon Dioxide Level 33 MMOL/L (21-32) H Anion Gap 7 mmol/L (5-15) Blood Urea Nitrogen 53 mg/dL (7-18) H Creatinine 2.1 MG/DL (0.55-1.30) H Estimat Glomerular Filtration Rate mL/min (>60) Glucose Level 98 MG/DL (74-106) Calcium Level 9.7 MG/DL (8.5-10.1) C-Reactive Protein, Quantitative 7.8 mg/dL (0.00-0.90) H Vancomycin Level Trough 24.3 ug/mL (5.0-12.0) H Height (Feet): 5 Height (Inches): 4.00 Weight (Pounds): 120 General Appearance: alert, mild distress Cardiovascular: normal rate Respiratory/Chest: normal breath sounds, no respiratory distress, other - full face Abdominal Exam: normal bowel sounds, non tender, soft Extremities: non-tender Alber Rodriguez NP Jun 12, 2018 14:25
--- NOTE | 2018-06-12 14:47 | Cardiology Progress Note ---
Assessment/Plan Problem List: (1) encephalopathy due to toxin (2) Acute respiratory failure (3) Dementia (4) CAD (coronary artery disease) (5) Aspiration pneumonia (6) Afib Status: not improved, unchanged Status Narrative Pt w/ hx of PAF, CAD, adm w/ respiratory failure/ COPD/asthma exacerbation . Was weaned from vent, but now back on bipap , Worsening prerenal azotemia Rhythm stable - NSR w/ occ PVC Assessment/Plan Continue iv antibiotics, bipap vent support. Continue oral amiodarone ( NGT) for PAF. No anticoagulation due to bleeding risk, comorbidities. Lasix dc d Continue amlodipine for HTN. If remains without NGT, could give iv hydralazine. Avoid christel inhibitors/ ARB in view of declining renal function. followup labs - k, mg, bun/cr CXR pending Subjective ROS Limited/Unobtainable: Yes Subjective Cardiology for Dr. Sandhu Pt on bipap vent, sedated Objective Last 24 Hour Vital Signs Date Time Temp Pulse Resp B/P (MAP) Pulse Ox O2 Delivery O2 Flow Rate FiO2 06/12/18 14:00 98 29 143/78 (99) 93 06/12/18 13:14 65 06/12/18 13:08 136 40 87 Full Face 65 06/12/18 13:00 110 31 163/78 (106) 93 06/12/18 12:00 109 26 126/78 (94) 99 06/12/18 12:00 Bi-pap Bi-pap 06/12/18 12:00 80 06/12/18 11:00 81 26 124/74 (91) 99 06/12/18 10:57 95 32 98 Full Face 45 06/12/18 10:55 102 29 98 Bi-pap 45 06/12/18 10:50 100 28 98 Bi-pap 55 06/12/18 10:00 82 26 126/80 (95) 99 06/12/18 09:17 107 36 85 Full Face 45 06/12/18 09:00 86 26 123/81 (95) 99 06/12/18 08:00 85 26 120/60 (80) 99 06/12/18 08:00 80 06/12/18 08:00 Bi-pap Bi-pap 06/12/18 08:00 103 06/12/18 07:00 98.5 92 26 124/50 (74) 96 2/10/19 06:53 91 25 97 Full Face 45 06/12/18 06:52 90 26 99 Bi-pap 45 06/12/18 06:45 91 26 98 Bi-pap 55 06/12/18 06:00 92 26 117/60 (79) 99 06/12/18 05:00 91 22 111/63 (79) 99 06/12/18 04:44 93 27 98 Full Face 80 06/12/18 04:00 96 28 116/51 (72) 97 06/12/18 04:00 80 06/12/18 04:00 99 06/12/18 04:00 92 27 99 Bi-pap 80 06/12/18 04:00 Bi-pap Bi-pap 06/12/18 03:49 103 30 97 Bi-pap 80 06/12/18 03:00 101 26 98 Full Face 80 06/12/18 03:00 98 30 127/65 (85) 95 06/12/18 02:00 98.4 103 33 132/72 (92) 93 06/12/18 01:52 103 21 Bi-pap 80 06/12/18 01:30 103 33 96 Full Face 80 06/12/18 01:00 108 28 130/60 (83) 90 06/12/18 00:00 80 06/12/18 00:00 99 06/12/18 00:00 Bi-pap Bi-pap 06/12/18 00:00 111 32 127/52 (77) 92 06/11/18 23:36 105 31 97 Bi-pap 80 06/11/18 23:14 103 31 97 Facial 80 06/11/18 23:10 101 31 97 Bi-pap 80 06/11/18 23:00 101 24 127/52 (77) 94 06/11/18 22:00 101 24 112/57 (75) 94 06/11/18 21:15 89 26 96 Facial 90 06/11/18 21:00 101 24 144/66 (92) 94 06/11/18 20:10 104 31 96 Bi-pap 80 06/11/18 20:00 98.4 100 30 127/56 (79) 100 06/11/18 20:00 99 06/11/18 20:00 100 06/11/18 20:00 Bi-pap Bi-pap 06/11/18 19:17 99 28 97 Bi-pap 100 06/11/18 19:00 97 29 108/52 (70) 93 06/11/18 18:59 97 27 92 Facial 100 06/11/18 18:00 100 27 134/62 (86) 93 06/11/18 17:42 96 145/60 06/11/18 17:00 96 25 145/60 (88) 93 06/11/18 16:59 94 27 92 Facial 55 06/11/18 16:00 98 06/11/18 16:00 98.2 105 30 91/47 (62) 89 06/11/18 16:00 10.0 45 06/11/18 16:00 Bi-pap Bi-pap 06/11/18 15:24 92 35 90 Facial 55 06/11/18 15:00 97 25 108/54 (72) 98 06/11/18 14:55 100 29 96 Bi-pap 40 06/11/18 14:50 100 32 93 Bi-pap 55 General Appearance: WD/WN, other - sedate EENT: PERRL/EOMI Neck: supple, no JVD Rhythm: NSR Cardiovascular: normal rate, regular rhythm, no gallop/murmur Respiratory/Chest: other - shallow respirations, few rhonchi Abdomen: normal bowel sounds, non tender, soft Extremities: no swelling Intake and Output 06/11/18 06/12/18 19:00 07:00 Intake Total 55 ml Output Total 600 ml 440 ml Balance -545 ml -440 ml IV Total 55 ml Output Urine Total 600 ml 440 ml Laboratory Tests Test 06/11/18 17:10 06/12/18 03:00 06/12/18 08:15 Arterial Blood pH 7.406 (7.350-7.450) 7.410 (7.350-7.450) Arterial Blood Partial Pressure CO2 56.7 mmHg (35.0-45.0) *H 51.0 mmHg (35.0-45.0) H Arterial Blood Partial Pressure O2 56.8 mmHg (75.0-100.0) L 60.5 mmHg (75.0-100.0) L Arterial Blood HCO3 34.8 mmol/L (22.0-26.0) H 31.6 mmol/L (22.0-26.0) H Arterial Blood Oxygen Saturation 89.7 % (95-100) *L 89.7 % (95-100) *L Arterial Blood Base Excess 8.5 (-2-2) H 5.9 (-2-2) H David Test Positive N/a White Blood Count 13.5 K/UL (4.8-10.8) H Red Blood Count 4.70 M/UL (4.20-5.40) Hemoglobin 10.7 G/DL (12.0-16.0) L Hematocrit 34.7 % (37.0-47.0) L Mean Corpuscular Volume 74 FL (80-99) L Mean Corpuscular Hemoglobin 22.7 PG (27.0-31.0) L Mean Corpuscular Hemoglobin Concent 30.9 G/DL (32.0-36.0) L Red Cell Distribution Width 18.3 % (11.6-14.8) H Platelet Count 413 K/UL (150-450) Mean Platelet Volume 8.3 FL (6.5-10.1) Neutrophils (%) (Auto) 79.6 % (45.0-75.0) H Lymphocytes (%) (Auto) 11.9 % (20.0-45.0) L Monocytes (%) (Auto) 6.4 % (1.0-10.0) Eosinophils (%) (Auto) 1.3 % (0.0-3.0) Basophils (%) (Auto) 0.9 % (0.0-2.0) Sodium Level 143 MMOL/L (136-145) Potassium Level 3.5 MMOL/L (3.5-5.1) Chloride Level 103 MMOL/L (98-107) Carbon Dioxide Level 33 MMOL/L (21-32) H Anion Gap 7 mmol/L (5-15) Blood Urea Nitrogen 53 mg/dL (7-18) H Creatinine 2.1 MG/DL (0.55-1.30) H Estimat Glomerular Filtration Rate mL/min (>60) Glucose Level 98 MG/DL (74-106) Calcium Level 9.7 MG/DL (8.5-10.1) C-Reactive Protein, Quantitative 7.8 mg/dL (0.00-0.90) H Vancomycin Level Trough 24.3 ug/mL (5.0-12.0) H She Jones MD Jun 12, 2018 14:47
--- NOTE | 2018-06-12 15:30 | NUR ---
NURSE NOTES: Patient is now on BIPAP settings that were the original settings of 18/12 at 60%. Patient O2 Sats are 99%. Patient was cleaned and repositioned. Patient with VSS and not in any acute distress. Will continue to monitor.
[2018-06-12] MEDS ORDERED: Vancomycin 750mg/NS 275ml IVPB SCH ×2 (16:00)
[2018-06-12] MEDS: Vancomycin 750 MG in NS 275 ML IVPB SCH (16:00)
--- NOTE | 2018-06-12 16:11 | Pulmonolgy Critical Care Note ---
Critical Care - Asmt/Plan Assessment/Plan: Pulmonary Critical Care Progress Note History of Present Illness Present Illness HPI Patient is an 87 y/o female with hx of severe obstructive asthma, CHF, chronic hypercapnic respiratory failure admitted with respiratory distress and altered mental status. Apparently had R lung opacification and had been on BiPAP but was deemed to have failed bipap and intubated. She is currently on BiPAP, previously intubated. She has been treated with antibiotics for possible pneumonia. Some secretions noted. CXR todat NGT Right Stem Bronchus - now removed Allergies: Coded Allergies: Mushroom (Verified Allergy, Severe, 05/28/18) MORPHINE (Unverified Allergy, Intermediate, Itching, 01/04/15) PENICILLINS (Unverified Allergy, Intermediate, Hives, 01/04/15) CELECOXIB (Verified Allergy, Mild, 01/15/09) Medication History Scheduled Amiodarone Hcl* (Cordarone*), 200 MG ORAL DAILY Amlodipine Besylate (Norvasc), 5 MG ORAL DAILY, (Reported) Denosumab (Prolia), 60 MG SUBQ EVERY 6 MONTHS, (Reported) Donepezil Hcl* (Donepezil Hcl*), 5 MG ORAL HS, (Reported) Escitalopram Oxalate* (Lexapro*), 10 MG ORAL DAILY, (Reported) Fluticasone/Salmeterol (Advair 100-50 Diskus), 1 PUFF INH EVERY 12 HOURS, ( Reported) Furosemide* (Lasix*), 40 MG ORAL BID, (Reported) Hydrochlorothiazide* (Hydrochlorothiazide*), 25 MG ORAL DAILY, (Reported) Methylprednisolone* (Medrol*), 4 MG ORAL DAILY Mirtazapine* (Mirtazapine*), 15 MG ORAL BEDTIME, (Reported) Montelukast Sodium* (Singulair*), 10 MG ORAL DAILY, (Reported) Montelukast Sodium* (Singulair*), 10 MG ORAL BEDTIME, (Reported) Pantoprazole* (Pantoprazole*), 40 MG ORAL DAILY, (Reported) Potassium Gluconate (Potassium), 10 MEQ PO BID, (Reported) Tiotropium Webb* (Spiriva*), 1 PUFF INH DAILY, (Reported) Valsartan (Diovan), 160 MG ORAL BID, (Reported) Verapamil Hcl* (Calan*), 240 MG ORAL DAILY, (Reported) [vitamin B12], 1 ML IM ONCE A WEEK, (Reported) Scheduled PRN Albuterol Sulfate* (Albuterol Sulfate Hhn*), 3 ML INH Q6H PRN for Shortness of Breath, (Reported) Tramadol Hcl* (Ultram*), 50 MG ORAL Q6H PRN for For Pain, (Reported) Patient History Limited by: medical condition History Provided By: Medical Record Healthcare decision maker Resuscitation status Advanced Directive on File Yes Past Medical/Surgical History Past Medical/Surgical History: (1) COPD (chronic obstructive pulmonary disease) (2) CAD (coronary artery disease) Review of Systems ROS Narrative Unable to obtain due to patient factors Physical Exam General Appearance: WD/WN, no apparent distress, lethargic HEENT: normocephalic, atraumatic Respiratory/Chest: crackles/rales Cardiovascular/Chest: normal rate Abdomen: non tender, soft Extremities: no edema Vital Signs Noted Laboratory Tests Noted Test 06/06/18 04:00 06/06/18 09:45 White Blood Count 11.3 K/UL (4.8-10.8) H Red Blood Count 3.78 M/UL (4.20-5.40) L Hemoglobin 8.2 G/DL (12.0-16.0) L Hematocrit 26.2 % (37.0-47.0) L Mean Corpuscular Volume 69 FL (80-99) L Mean Corpuscular Hemoglobin 21.7 PG (27.0-31.0) L Mean Corpuscular Hemoglobin Concent 31.2 G/DL (32.0-36.0) L Red Cell Distribution Width 15.0 % (11.6-14.8) H Platelet Count 208 K/UL (150-450) Mean Platelet Volume 7.4 FL (6.5-10.1) Neutrophils (%) (Auto) 72.1 % (45.0-75.0) Lymphocytes (%) (Auto) 19.1 % (20.0-45.0) L Monocytes (%) (Auto) 5.6 % (1.0-10.0) Eosinophils (%) (Auto) 2.5 % (0.0-3.0) Basophils (%) (Auto) 0.7 % (0.0-2.0) Sodium Level 143 MMOL/L (136-145) Potassium Level 4.4 MMOL/L (3.5-5.1) Chloride Level 104 MMOL/L (98-107) Carbon Dioxide Level 36 MMOL/L (21-32) H Anion Gap 3 mmol/L (5-15) L Blood Urea Nitrogen 38 mg/dL (7-18) H Creatinine 1.5 MG/DL (0.55-1.30) H Estimat Glomerular Filtration Rate mL/min (>60) Glucose Level 126 MG/DL (74-106) H Uric Acid 4.6 MG/DL (2.6-7.2) Calcium Level 8.1 MG/DL (8.5-10.1) L Phosphorus Level 2.2 MG/DL (2.5-4.9) L Magnesium Level 2.5 MG/DL (1.8-2.4) H Total Bilirubin 0.2 MG/DL (0.2-1.0) Aspartate Amino Transf (AST/SGOT) 14 U/L (15-37) L Alanine Aminotransferase (ALT/SGPT) 13 U/L (12-78) Alkaline Phosphatase 64 U/L (46-116) Pro-B-Type Natriuretic Peptide 245 pg/mL (0-125) H Total Protein 5.7 G/DL (6.4-8.2) L Albumin 2.0 G/DL (3.4-5.0) L Globulin 3.7 g/dL Albumin/Globulin Ratio 0.5 (1.0-2.7) L Thyroid Stimulating Hormone (TSH) 0.722 uiU/mL (0.358-3.740) Arterial Blood pH 7.433 (7.350-7.450) Arterial Blood Partial Pressure CO2 52.2 mmHg (35.0-45.0) H Arterial Blood Partial Pressure O2 53.8 mmHg (75.0-100.0) L Arterial Blood HCO3 34.1 mmol/L (22.0-26.0) H Arterial Blood Oxygen Saturation 88.0 % (95-100) *L Arterial Blood Base Excess 8.7 (-2-2) H David Test Positive Height (Feet): 5 Height (Inches): 4.00 Weight (Pounds): 118 Medications Medications (Trade) Dose Ordered Sig/Ann Route PRN Reason Start Time Stop Time Status Last Admin Dose Admin Acetaminophen (Tylenol) 650 mg Q4H PRN ORAL fever (temp>100.5F) 06/02/18 13:30 06/27/18 13:29 06/04/18 16:12 Albuterol/ Ipratropium (Albuterol/ Ipratropium) 3 ml Q6HRT HHN 06/05/18 13:00 06/07/18 06:59 06/06/18 14:04 Amiodarone HCl (Cordarone) 100 mg DAILY ORAL 06/03/18 09:00 06/30/18 08:59 06/06/18 08:36 Amlodipine Besylate (Norvasc) 5 mg BID ORAL 06/02/18 18:00 06/27/18 08:59 06/06/18 08:42 Cefepime HCl 1 gm/ Dextrose 55 ml @ 110 mls/hr Q24H IV 06/03/18 09:00 06/09/18 08:59 06/06/18 08:35 Chlorhexidine Gluconate (Myra-Hex 2%) 1 applic DAILY@2000 TOPIC 06/02/18 20:00 07/02/18 19:59 06/05/18 19:55 Heparin Sodium (Porcine) (Heparin 5000 units/ml) 5,000 units EVERY 12 HOURS SUBQ 06/02/18 21:00 06/27/18 08:59 06/06/18 08:41 Lorazepam (Ativan 2mg/ml 1ml) 2 mg Q4H PRN IV For Anxiety 06/02/18 14:30 06/09/18 14:14 06/06/18 03:35 Nitroglycerin (Ntg) 0.4 mg Q5M PRN SL Prn Chest Pain 06/02/18 13:30 06/27/18 13:29 Ondansetron HCl (Zofran) 4 mg Q6H PRN IVP Nausea & Vomiting 06/02/18 13:30 06/27/18 07:29 Pantoprazole (Protonix) 40 mg DAILY IV 06/03/18 09:00 07/03/18 08:59 06/06/18 08:36 Polyethylene Glycol (Miralax) 17 gm BEDTIME ORAL 06/06/18 21:00 07/06/18 20:59 Polyethylene Glycol (Miralax) 17 gm DAILYPRN PRN ORAL Constipation 06/02/18 13:30 07/02/18 13:29 06/05/18 20:57 Quetiapine Fumarate (SEROquel) 12.5 mg BID ORAL 06/02/18 18:00 06/29/18 17:59 06/06/18 08:42 Quetiapine Fumarate (SEROquel) 25 mg Q6H PRN ORAL For Anxiety 06/02/18 13:30 06/29/18 13:29 Temazepam (Restoril) 15 mg HSPRN PRN ORAL Insomnia 06/02/18 20:00 06/09/18 19:59 Vancomycin HCl (Vanco rx to dose) 1 ea DAILY PRN MISC Per rx protocol 06/02/18 13:30 07/02/18 13:29 Vancomycin HCl 1 gm/Dextrose 275 ml @ 183.708 mls/hr Q36H IVPB 06/04/18 13:00 06/09/18 12:59 06/06/18 01:00 Assessment/Plan Assessment/Plan Problem List: 1. Acute on chronic hypercapnic respiratory failure 2. R lung collapse, possibly mucous plugging - improved 3. Pulmonary edema 4. chronic obstructive asthma 5. Pneumonia 6. Hx afib Plan: -BiPAP support, wean as tolerated -Consider NGT insertion by GI -monitor volumes, consider diuresis -good pulmonary hygiene -abx per ID Critical Care - Objective Last 24 Hour Vital Signs Date Time Temp Pulse Resp B/P (MAP) Pulse Ox O2 Delivery O2 Flow Rate FiO2 06/12/18 15:12 93 26 97 Bi-pap 60 06/12/18 15:10 93 21 94 Full Face 60 06/12/18 15:10 93 26 98 Bi-pap 65 06/12/18 15:00 98.6 100 26 140/63 (88) 97 06/12/18 14:00 98 29 143/78 (99) 93 06/12/18 13:14 65 06/12/18 13:08 136 40 87 Full Face 65 06/12/18 13:00 110 31 163/78 (106) 93 06/12/18 12:00 109 26 126/78 (94) 99 06/12/18 12:00 Bi-pap Bi-pap 06/12/18 12:00 105 06/12/18 12:00 80 06/12/18 11:00 81 26 124/74 (91) 99 06/12/18 10:57 95 32 98 Full Face 45 06/12/18 10:55 102 29 98 Bi-pap 45 06/12/18 10:50 100 28 98 Bi-pap 55 06/12/18 10:00 82 26 126/80 (95) 99 06/12/18 09:17 107 36 85 Full Face 45 06/12/18 09:00 86 26 123/81 (95) 99 06/12/18 08:00 85 26 120/60 (80) 99 06/12/18 08:00 80 06/12/18 08:00 Bi-pap Bi-pap 06/12/18 08:00 103 06/12/18 07:00 98.5 92 26 124/50 (74) 96 06/12/18 06:53 91 25 97 Full Face 45 06/12/18 06:52 90 26 99 Bi-pap 45 06/12/18 06:45 91 26 98 Bi-pap 55 06/12/18 06:00 92 26 117/60 (79) 99 06/12/18 05:00 91 22 111/63 (79) 99 06/12/18 04:44 93 27 98 Full Face 80 06/12/18 04:00 96 28 116/51 (72) 97 06/12/18 04:00 80 06/12/18 04:00 99 06/12/18 04:00 92 27 99 Bi-pap 80 06/12/18 04:00 Bi-pap Bi-pap 06/12/18 03:49 103 30 97 Bi-pap 80 06/12/18 03:00 101 26 98 Full Face 80 06/12/18 03:00 98 30 127/65 (85) 95 06/12/18 02:00 98.4 103 33 132/72 (92) 93 06/12/18 01:52 103 21 Bi-pap 80 06/12/18 01:30 103 33 96 Full Face 80 06/12/18 01:00 108 28 130/60 (83) 90 06/12/18 00:00 80 06/12/18 00:00 99 06/12/18 00:00 Bi-pap Bi-pap 06/12/18 00:00 111 32 127/52 (77) 92 06/11/18 23:36 105 31 97 Bi-pap 80 06/11/18 23:14 103 31 97 Facial 80 06/11/18 23:10 101 31 97 Bi-pap 80 06/11/18 23:00 101 24 127/52 (77) 94 06/11/18 22:00 101 24 112/57 (75) 94 06/11/18 21:15 89 26 96 Facial 90 06/11/18 21:00 101 24 144/66 (92) 94 06/11/18 20:10 104 31 96 Bi-pap 80 06/11/18 20:00 98.4 100 30 127/56 (79) 100 06/11/18 20:00 99 06/11/18 20:00 100 06/11/18 20:00 Bi-pap Bi-pap 06/11/18 19:17 99 28 97 Bi-pap 100 06/11/18 19:00 97 29 108/52 (70) 93 06/11/18 18:59 97 27 92 Facial 100 06/11/18 18:00 100 27 134/62 (86) 93 06/11/18 17:42 96 145/60 06/11/18 17:00 96 25 145/60 (88) 93 06/11/18 16:59 94 27 92 Facial 55 Critical Care - Subjective ROS Limited/Unobtainable: No FI02: 60 Vent Support Breath Rate: 8 Vent Support Mode: IMV/SIMV Vent Tidal Volume: 500 Sputum Amount: None PEEP: 5.0 PIP: 15 I&O: Intake and Output 06/11/18 06/12/18 19:00 07:00 Intake Total 55 ml Output Total 600 ml 440 ml Balance -545 ml -440 ml IV Total 55 ml Output Urine Total 600 ml 440 ml ET-Tube: 7.5 ET Position: 21 Clint Zaidi MD Jun 12, 2018 16:11
--- NOTE | 2018-06-12 17:30 | NUR ---
NURSE NOTES: RECEIVED PATIENT FROM Kyle PARSONS RN. PATIENT IS LYING FLAT IN BED, ABLE TO OPEN EYES. CONFUSED. 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 ON BIPAP 18/8, FIO2 60%. TOLERATING BIPAP. ON NPO. FOR KUB XRAY FOR TUBE PLACEMENT. ON OVIEDO, CONNECTED TO BAG, PATENT AND DRAINING. ON OVERLAY MATTRESS. PICC ON R UA, TKO. BELONGINGS RECEIVED FROM ICU, PANTS #1, SHIRT #1, JACKET #1. PATIENT KEPT CLEAN AND DRY. SON SEEN AT THE BEDSIDE. CALL LIGHT WITHIN REACH. BED AT LOWEST POSITION. SIDE RAILS UP. WILL CONTINUE TO MONITOR.
[2018-06-12] MEDS ORDERED: Nitroglycerin Subl 0.4mg tab SL PRN (17:45)
[2018-06-12] MEDS ORDERED: Miralax 17gm pkt ORAL PRN (18:00)
[2018-06-12] MEDS ORDERED: LORazepam Inj 2mg/ml 1ml IV PRN (18:15)
[2018-06-12] MEDS ORDERED: Haloperidol 5mg/ml Inj IM PRN (18:15)
--- NOTE | 2018-06-12 19:24 | NUR ---
RESPIRATORY NOTE: PT RECEIVED STABLE ON BIPAP 18/8 BACK UP RATE OF 16, FIO2 60%. FIO2 TITRATED TO 50%; PT TOLERATED WELL. SPO2 97% ON NEW FIO2. MASK CHANGED TO FACIAL MASK. NEW TAPE APPLIED AND FACE INSPECTION DONE REVEALING NO REDNESS OR SKIN BREAKDOWN. NO SIGN OF RESPIRATORY DISTRESS NOTED AT THIS TIME. WILL CONTINUE TO MONITOR.
--- NOTE | 2018-06-12 19:37 | NUR ---
HAND-OFF: Report given to Amalia Belcher RN.
--- NOTE | 2018-06-12 20:00 | NUR ---
NURSE NOTES: pt asleep responsive touch and follows command on b-pap 18/8 60 0/0 o2 [id number] o/o no acute resp distress noted reposition and suction /
[2018-06-12] MEDS: Dyna-Hex 2% Top Sol 2oz TOPIC SCH (20:03)
[2018-06-12] MEDS: Miralax 17gm pkt ORAL SCH (21:30)
--- NOTE | 2018-06-12 21:36 | General Progress Note ---
Assessment/Plan Problem List: (1) encephalopathy due to toxin (2) Dementia ICD Codes: F03.90 - Unspecified dementia without behavioral disturbance SNOMED: 74177717 Assessment/Plan Haldol Im on board Seroquel 25mg q 6hr prn cont restraints. Subjective Neurologic/Psychiatric: Reports: anxiety Allergies: Coded Allergies: Mushroom (Verified Allergy, Severe, 05/28/18) MORPHINE (Unverified Allergy, Intermediate, Itching, 01/04/15) PENICILLINS (Unverified Allergy, Intermediate, Hives, 01/04/15) CELECOXIB (Verified Allergy, Mild, 01/15/09) Subjective more alert anxious Objective Last 24 Hour Vital Signs Date Time Temp Pulse Resp B/P (MAP) Pulse Ox O2 Delivery O2 Flow Rate FiO2 06/12/18 18:00 94 140/63 06/12/18 17:01 94 24 100 Full Face 60 06/12/18 16:00 Bi-pap Bi-pap 06/12/18 16:00 106 06/12/18 16:00 60 06/12/18 16:00 98.0 106 24 164/71 (102) 100 06/12/18 15:12 93 26 97 Bi-pap 60 06/12/18 15:10 93 21 94 Full Face 60 06/12/18 15:10 93 26 98 Bi-pap 65 06/12/18 15:00 98.6 100 26 140/63 (88) 97 06/12/18 14:00 98 29 143/78 (99) 93 06/12/18 13:14 65 06/12/18 13:08 136 40 87 Full Face 65 06/12/18 13:00 110 31 163/78 (106) 93 06/12/18 12:00 109 26 126/78 (94) 99 06/12/18 12:00 Bi-pap Bi-pap 06/12/18 12:00 105 06/12/18 12:00 80 06/12/18 11:00 81 26 124/74 (91) 99 06/12/18 10:57 95 32 98 Full Face 45 06/12/18 10:55 102 29 98 Bi-pap 45 06/12/18 10:50 100 28 98 Bi-pap 55 06/12/18 10:00 82 26 126/80 (95) 99 06/12/18 09:17 107 36 85 Full Face 45 06/12/18 09:00 86 26 123/81 (95) 99 06/12/18 08:00 85 26 120/60 (80) 99 06/12/18 08:00 80 06/12/18 08:00 Bi-pap Bi-pap 06/12/18 08:00 103 06/12/18 07:00 98.5 92 26 124/50 (74) 96 06/12/18 06:53 91 25 97 Full Face 45 06/12/18 06:52 90 26 99 Bi-pap 45 06/12/18 06:45 91 26 98 Bi-pap 55 06/12/18 06:00 92 26 117/60 (79) 99 06/12/18 05:00 91 22 111/63 (79) 99 06/12/18 04:44 93 27 98 Full Face 80 06/12/18 04:00 96 28 116/51 (72) 97 06/12/18 04:00 80 06/12/18 04:00 99 06/12/18 04:00 92 27 99 Bi-pap 80 06/12/18 04:00 Bi-pap Bi-pap 06/12/18 03:49 103 30 97 Bi-pap 80 06/12/18 03:00 101 26 98 Full Face 80 06/12/18 03:00 98 30 127/65 (85) 95 06/12/18 02:00 98.4 103 33 132/72 (92) 93 06/12/18 01:52 103 21 Bi-pap 80 06/12/18 01:30 103 33 96 Full Face 80 06/12/18 01:00 108 28 130/60 (83) 90 06/12/18 00:00 80 06/12/18 00:00 99 06/12/18 00:00 Bi-pap Bi-pap 06/12/18 00:00 111 32 127/52 (77) 92 06/11/18 23:36 105 31 97 Bi-pap 80 06/11/18 23:14 103 31 97 Facial 80 06/11/18 23:10 101 31 97 Bi-pap 80 06/11/18 23:00 101 24 127/52 (77) 94 06/11/18 22:00 101 24 112/57 (75) 94 Intake and Output 06/11/18 06/12/18 19:00 07:00 Intake Total 55 ml Output Total 600 ml 440 ml Balance -545 ml -440 ml IV Total 55 ml Output Urine Total 600 ml 440 ml Laboratory Tests 06/12/18 03:00: White Blood Count 13.5H, Red Blood Count 4.70, Hemoglobin 10.7L, Hematocrit 34.7L, Mean Corpuscular Volume 74L, Mean Corpuscular Hemoglobin 22.7L, Mean Corpuscular Hemoglobin Concent 30.9L, Red Cell Distribution Width 18.3H, Platelet Count 413, Mean Platelet Volume 8.3, Neutrophils (%) (Auto) 79.6H, Lymphocytes (%) (Auto) 11.9L, Monocytes (%) (Auto) 6.4, Eosinophils (%) (Auto) 1.3, Basophils (%) (Auto) 0.9, Sodium Level 143, Potassium Level 3.5, Chloride Level 103, Carbon Dioxide Level 33H, Anion Gap 7, Blood Urea Nitrogen 53H, Creatinine 2.1H, Estimat Glomerular Filtration Rate , Glucose Level 98, Calcium Level 9.7, C-Reactive Protein, Quantitative 7.8H, Vancomycin Level Trough 24.3H 06/12/18 08:15: Arterial Blood pH 7.410, Arterial Blood Partial Pressure CO2 51.0H, Arterial Blood Partial Pressure O2 60.5L, Arterial Blood HCO3 31.6H, Arterial Blood Oxygen Saturation 89.7*L, Arterial Blood Base Excess 5.9H, David Test N/a Height (Feet): 5 Height (Inches): 4.00 Weight (Pounds): 120 Liz Lo MD Jun 12, 2018 21:36
--- NOTE | 2018-06-12 21:51 | General Progress Note ---
Assessment/Plan Status: progressing Assessment/Plan This is an 87-year-old female admitted with chronic obstructive pulmonary disease exacerbation, right lower lobe infiltrate/pneumonia with altered mental status and acute kidney injury. The patient will be admitted to [facility] with the following medical problems. 1. Chronic obstructive pulmonary disease exacerbation and pneumonia. The patient has been seen by Pulmonary. Infectious Disease has been consulted, pancultured. IV antibiotics per ID. Continue with BiPAP and suction p.r.n. Transition to Venturi-mask when stable. 2. Acute kidney injury. We will monitor I's and O's, gentle intravenous fluids. Repeat a BMP in a.m. Consider Nephrology consult. 3. History of chronic atrial fibrillation. Continue with amiodarone. The patient is in sinus rhythm at this time. 4. History of hypertension. Continue with amlodipine and hold for systolic blood pressure less than 110. 5. Altered mental status, most likely from above conditions. We will keep n.p.o. except for medications and start IV fluids. 6. DVT prophylaxis with heparin subcutaneous and SCDs. 7. The patient is Full Code per policy. We will discuss with the family. 8. hypokalmia 9. Anemia 10. CHf acute on chronic 11. leucocytosis 12. respiratory alkalosis Plan: - now in [facility] - Bipap as tolerated - add mucomyst HHN - change Duoneb HHN to q 4 -,tube feeding to start when tube placement is confirmed - swallow study tomorrow - monitor BUN CRE - pt mobitiliy when more alert discussed with nurse and Dr Zaidi Subjective Date patient seen: Jun 12, 2018 ROS Limited/Unobtainable: Yes Allergies: Coded Allergies: Mushroom (Verified Allergy, Severe, 05/28/18) MORPHINE (Unverified Allergy, Intermediate, Itching, 01/04/15) PENICILLINS (Unverified Allergy, Intermediate, Hives, 01/04/15) CELECOXIB (Verified Allergy, Mild, 01/15/09) Subjective now extubated and transfered to [facility] on Objective Last 24 Hour Vital Signs Date Time Temp Pulse Resp B/P (MAP) Pulse Ox O2 Delivery O2 Flow Rate FiO2 06/12/18 18:00 94 140/63 06/12/18 17:01 94 24 100 Full Face 60 06/12/18 16:00 Bi-pap Bi-pap 06/12/18 16:00 106 06/12/18 16:00 60 06/12/18 16:00 98.0 106 24 164/71 (102) 100 06/12/18 15:12 93 26 97 Bi-pap 60 06/12/18 15:10 93 21 94 Full Face 60 06/12/18 15:10 93 26 98 Bi-pap 65 06/12/18 15:00 98.6 100 26 140/63 (88) 97 06/12/18 14:00 98 29 143/78 (99) 93 06/12/18 13:14 65 06/12/18 13:08 136 40 87 Full Face 65 06/12/18 13:00 110 31 163/78 (106) 93 06/12/18 12:00 109 26 126/78 (94) 99 06/12/18 12:00 Bi-pap Bi-pap 06/12/18 12:00 105 06/12/18 12:00 80 06/12/18 11:00 81 26 124/74 (91) 99 06/12/18 10:57 95 32 98 Full Face 45 06/12/18 10:55 102 29 98 Bi-pap 45 06/12/18 10:50 100 28 98 Bi-pap 55 06/12/18 10:00 82 26 126/80 (95) 99 06/12/18 09:17 107 36 85 Full Face 45 06/12/18 09:00 86 26 123/81 (95) 99 06/12/18 08:00 85 26 120/60 (80) 99 06/12/18 08:00 80 06/12/18 08:00 Bi-pap Bi-pap 06/12/18 08:00 103 06/12/18 07:00 98.5 92 26 124/50 (74) 96 06/12/18 06:53 91 25 97 Full Face 45 06/12/18 06:52 90 26 99 Bi-pap 45 06/12/18 06:45 91 26 98 Bi-pap 55 06/12/18 06:00 92 26 117/60 (79) 99 06/12/18 05:00 91 22 111/63 (79) 99 06/12/18 04:44 93 27 98 Full Face 80 06/12/18 04:00 96 28 116/51 (72) 97 06/12/18 04:00 80 06/12/18 04:00 99 06/12/18 04:00 92 27 99 Bi-pap 80 06/12/18 04:00 Bi-pap Bi-pap 06/12/18 03:49 103 30 97 Bi-pap 80 06/12/18 03:00 101 26 98 Full Face 80 06/12/18 03:00 98 30 127/65 (85) 95 06/12/18 02:00 98.4 103 33 132/72 (92) 93 06/12/18 01:52 103 21 Bi-pap 80 06/12/18 01:30 103 33 96 Full Face 80 06/12/18 01:00 108 28 130/60 (83) 90 06/12/18 00:00 80 06/12/18 00:00 99 06/12/18 00:00 Bi-pap Bi-pap 06/12/18 00:00 111 32 127/52 (77) 92 06/11/18 23:36 105 31 97 Bi-pap 80 06/11/18 23:14 103 31 97 Facial 80 06/11/18 23:10 101 31 97 Bi-pap 80 06/11/18 23:00 101 24 127/52 (77) 94 06/11/18 22:00 101 24 112/57 (75) 94 Intake and Output 06/11/18 06/12/18 19:00 07:00 Intake Total 55 ml Output Total 600 ml 440 ml Balance -545 ml -440 ml IV Total 55 ml Output Urine Total 600 ml 440 ml Laboratory Tests 06/12/18 03:00: White Blood Count 13.5H, Red Blood Count 4.70, Hemoglobin 10.7L, Hematocrit 34.7L, Mean Corpuscular Volume 74L, Mean Corpuscular Hemoglobin 22.7L, Mean Corpuscular Hemoglobin Concent 30.9L, Red Cell Distribution Width 18.3H, Platelet Count 413, Mean Platelet Volume 8.3, Neutrophils (%) (Auto) 79.6H, Lymphocytes (%) (Auto) 11.9L, Monocytes (%) (Auto) 6.4, Eosinophils (%) (Auto) 1.3, Basophils (%) (Auto) 0.9, Sodium Level 143, Potassium Level 3.5, Chloride Level 103, Carbon Dioxide Level 33H, Anion Gap 7, Blood Urea Nitrogen 53H, Creatinine 2.1H, Estimat Glomerular Filtration Rate , Glucose Level 98, Calcium Level 9.7, C-Reactive Protein, Quantitative 7.8H, Vancomycin Level Trough 24.3H 06/12/18 08:15: Arterial Blood pH 7.410, Arterial Blood Partial Pressure CO2 51.0H, Arterial Blood Partial Pressure O2 60.5L, Arterial Blood HCO3 31.6H, Arterial Blood Oxygen Saturation 89.7*L, Arterial Blood Base Excess 5.9H, David Test N/a Height (Feet): 5 Height (Inches): 4.00 Weight (Pounds): 120 General Appearance: no apparent distress, alert EENT: PERRL/EOMI, pharynx normal Neck: non-tender, supple Cardiovascular: normal rate, regular rhythm, no gallop/murmur, no JVD Respiratory/Chest: chest wall non-tender, normal breath sounds, no respiratory distress Abdomen: non tender, soft, no mass Extremities: non-tender, normal inspection, no calf tenderness Edema: no edema noted Arm (L), no edema noted Arm (R), no edema noted Leg (L), no edema noted Leg (R), no edema noted Pedal (L), no edema noted Pedal (R), no edema noted Generalized Neurologic: alert Cruz Valderrama MD Jun 12, 2018 21:51
[2018-06-13] VITALS (7 sets, daily range): BP systolic 128–156; BP diastolic 64–89
[2018-06-13] MEDS: Albuterol/Ipratropium 3ml neb HHN SCH ×6 (03:06→23:29)
[2018-06-13] MEDS: Acetylcysteine 20% Soln 4ml HHN SCH ×6 (03:06→23:29)
--- NOTE | 2018-06-13 04:50 | NUR ---
PT STABLE ON BIPAP WITH CURRENT SETTINGS. HHN TX GIVEN AND TOLERATED WELL X3. VENT CIRCUIT AND BIPAP SECURE AND OUT OF THE WAY. SO RESPIRATORY DISTRESS NOTED AT THIS TIME.
[2018-06-13 05:54] LABS: ALANINE AMINOTRANSFERASE 33 U/L (12-78); ALBUMIN 3.2 G/DL (3.4-5.0); ALBUMIN/GLOBULIN RATIO 0.8 (1.0-2.7); ALKALINE PHOSPHATASE 92 U/L (46-116); ANION GAP 9 mmol/L (5-15); ASPARTATE AMINO TRANSFERASE 25 U/L (15-37); BILIRUBIN,TOTAL 0.5 MG/DL (0.2-1.0); BLOOD UREA NITROGEN 56 mg/dL (7-18); CALCIUM 9.6 MG/DL (8.5-10.1); CARBON DIOXIDE 33 MMOL/L (21-32); CHLORIDE 107 MMOL/L (98-107); CREATININE 2.2 MG/DL (0.55-1.30); POTASSIUM 3.7 MMOL/L (3.5-5.1); SODIUM 149 MMOL/L (136-145)
[2018-06-13 06:12] LABS: PHOSPHORUS 4.5 MG/DL (2.5-4.9)
--- NOTE | 2018-06-13 07:13 | NUR ---
HAND-OFF: Report given tT DURAN JI USING SBAR.
--- NOTE | 2018-06-13 07:55 | NUR ---
Nurse Notes: Received Pt from Nga Belcher RN in semi-lopes. Pt confused and attempting to get out of bed. Pt placed on bilat wrist restraints. Pt is in no apparent cardiorespiratory distress. Pt is on Bipap 18/8 FiO2 30%. Pt is on NGT feeding running at 45mL/hr with no residuals at the moment. Sinclair catheter in place with urine output of 40-60 mL/hr. RUE midline in place with NS running at 10mL/hr. Skin alterations noted. Bed in lowest position. Side rails up. Call light within reach. Addendum: 06/13/18 at 1600 by Kristin Umana RN RUE PICC Line used as Midline. Flushed 10 mL NS in both ports.
[2018-06-13] MEDS: Pantoprazole Inj IV SCH (09:04)
[2018-06-13] MEDS: Amiodarone 200mg tab ORAL SCH (09:06)
[2018-06-13] MEDS: Cefepime HCl 1 GM in D5W 55 ML IV SCH (09:06)
[2018-06-13] MEDS: Heparin 5000 units/ml inj SUBQ SCH ×2 (09:27→20:34)
--- NOTE | 2018-06-13 10:41 | Diagnostic Imaging Report ---
Indication: Reason For Exam: F/U Technique: One view of the chest Comparison: none Findings: Hazy opacification of the right hemithorax, likely reflecting pleural fluid, is unchanged. Previously demonstrated malpositioned nasogastric tube is now appropriately positioned, coiled in the stomach. Right arm PICC remains in good position. Left lung and pleural space remain clear. Other than the findings associated with a nasogastric tube, findings are essentially unchanged Impression: Improved and now satisfactory position of nasogastric tube, since prior study of 06/11/2017 Otherwise essentially stable findings as described
--- NOTE | 2018-06-13 10:43 | Diagnostic Imaging Report ---
Indication: Post nasogastric tube adjustment Technique: Supine view of the abdomen Comparison: 3 hours earlier Findings: Interval advancement of nasogastric tube, shaft coiled in the expected level gastric antrum, tip projected retrograde at level of gastric body, position satisfactory. Bowel gas pattern is unremarkable. Bilateral hip hardware is again noted. Impression: Improved and now satisfactory position of nasogastric tube Other findings as noted
--- NOTE | 2018-06-13 11:08 | Diagnostic Imaging Report ---
Indication: Evaluation of nasogastric tube, status post adjustment Technique: Supine view of the abdomen Comparison: 4 hours earlier Findings: Essentially unchanged position of nasogastric tube, shaft coiled in the gastric antrum, tip projected retrograde at the fundus body junction. Bowel gas pattern is unremarkable. Bilateral hip hardware again noted. Impression: Stable satisfactory position of nasogastric tube, over 4 hours Other stable findings as described This agrees with the preliminary interpretation provided overnight by [facility] teleradiology service.
--- NOTE | 2018-06-13 11:22 | GI Progress Note ---
Assessment/Plan Problems: (1) Severe malnutrition ICD Codes: E43 - Unspecified severe protein-calorie malnutrition SNOMED: 96879016 (2) Dementia ICD Codes: F03.90 - Unspecified dementia without behavioral disturbance SNOMED: 04016374 (3) Confused ICD Codes: R41.0 - Disorientation, unspecified SNOMED: 789488325 (4) Encounter for PEG (percutaneous endoscopic gastrostomy) ICD Codes: Z43.1 - Encounter for attention to gastrostomy SNOMED: 184496848, 486065762 (5) Failure to thrive SNOMED: 02575754 (6) Acute encephalopathy ICD Codes: G93.40 - Encephalopathy, unspecified SNOMED: 2468736 Status: not improved, unchanged Status Narrative Discussed with Dr. Acevedo. Assessment/Plan Assessment - Resp failure - NGT dependent - COPD - CHF - PNA - Anemia - Poor prognosis -No plans for tracheostomy as of yet, patient has failed weening multiple times. Now on BiPAP. Recommendations - NGT feeds, discussed with family regarding PEG placement. >> family refusing at this time - Vent care - Elevated HOB - Monitor residuals - Abx - Pulmonary toilet -Follow labs The patient was seen and examined at bedside and all new and available data was reviewed in the patients chart. I agree with the above findings, impression and plan. (Patient seen earlier today. Signature stamp does not reflect patient encounter time.). - Jacobo Acevedo MD Subjective Subjective Limited Objective Last 24 Hour Vital Signs Date Time Temp Pulse Resp B/P (MAP) Pulse Ox O2 Delivery O2 Flow Rate FiO2 06/13/18 09:05 100 156/83 06/13/18 08:25 30 06/13/18 08:23 98.7 100 25 156/83 (107) 99 06/13/18 08:00 100 06/13/18 08:00 Bi-pap Bi-pap 06/13/18 07:55 92 28 97 Bi-pap 30 06/13/18 07:43 90 32 96 Bi-pap 30 06/13/18 07:22 90 32 97 Facial 30 06/13/18 04:50 95 29 95 Facial 30 06/13/18 04:00 Bi-pap Bi-pap 06/13/18 04:00 60 06/13/18 04:00 99 06/13/18 04:00 97.7 104 29 147/72 (97) 97 06/13/18 03:45 95 28 98 Bi-pap 40 06/13/18 03:05 91 26 98 Facial 40 06/13/18 03:05 98 26 91 Bi-pap 40 06/13/18 01:00 80 20 100 Facial 50 06/13/18 00:00 95 06/13/18 00:00 Bi-pap Bi-pap 06/13/18 00:00 60 06/13/18 00:00 98.1 98 25 128/64 (85) 100 06/12/18 23:30 88 21 100 Bi-pap 50 06/12/18 23:22 95 24 100 Bi-pap 50 06/12/18 21:06 94 25 99 Facial 50 06/12/18 20:00 60 06/12/18 20:00 Bi-pap Bi-pap 06/12/18 20:00 100 06/12/18 20:00 98.6 98 24 150/70 (96) 100 06/12/18 19:32 95 25 100 Bi-pap 50 06/12/18 19:24 95 27 97 Bi-pap 50 06/12/18 19:24 95 27 97 Facial 50 06/12/18 18:00 94 140/63 06/12/18 17:01 94 24 100 Full Face 60 06/12/18 16:00 Bi-pap Bi-pap 06/12/18 16:00 106 06/12/18 16:00 60 06/12/18 16:00 98.0 106 24 164/71 (102) 100 06/12/18 15:12 93 26 97 Bi-pap 60 06/12/18 15:10 93 21 94 Full Face 60 06/12/18 15:10 93 26 98 Bi-pap 65 06/12/18 15:00 98.6 100 26 140/63 (88) 97 06/12/18 14:00 98 29 143/78 (99) 93 06/12/18 13:14 65 06/12/18 13:08 136 40 87 Full Face 65 06/12/18 13:00 110 31 163/78 (106) 93 06/12/18 12:00 109 26 126/78 (94) 99 06/12/18 12:00 Bi-pap Bi-pap 06/12/18 12:00 105 06/12/18 12:00 80 Intake and Output 06/12/18 06/13/18 18:59 06:59 Intake Total 1110 ml 465 ml Output Total 555 ml 678 ml Balance 555 ml -213 ml Free Water 150 ml IV Total 1110 ml Tube Feeding 315 ml Output Urine Total 555 ml 678 ml Laboratory Tests Test 06/13/18 03:10 Sodium Level 149 MMOL/L (136-145) H Potassium Level 3.7 MMOL/L (3.5-5.1) Chloride Level 107 MMOL/L (98-107) Carbon Dioxide Level 33 MMOL/L (21-32) H Anion Gap 9 mmol/L (5-15) Blood Urea Nitrogen 56 mg/dL (7-18) H Creatinine 2.2 MG/DL (0.55-1.30) H Estimat Glomerular Filtration Rate mL/min (>60) Glucose Level 143 MG/DL (74-106) H Uric Acid 8.1 MG/DL (2.6-7.2) H Calcium Level 9.6 MG/DL (8.5-10.1) Phosphorus Level 4.5 MG/DL (2.5-4.9) Magnesium Level 2.5 MG/DL (1.8-2.4) H Total Bilirubin 0.5 MG/DL (0.2-1.0) Aspartate Amino Transf (AST/SGOT) 25 U/L (15-37) Alanine Aminotransferase (ALT/SGPT) 33 U/L (12-78) Alkaline Phosphatase 92 U/L (46-116) Pro-B-Type Natriuretic Peptide 902 pg/mL (0-125) H Total Protein 7.0 G/DL (6.4-8.2) Albumin 3.2 G/DL (3.4-5.0) L Globulin 3.8 g/dL Albumin/Globulin Ratio 0.8 (1.0-2.7) L Height (Feet): 5 Height (Inches): 4.00 Weight (Pounds): 120 General Appearance: mild distress Cardiovascular: normal rate Respiratory/Chest: normal breath sounds, no respiratory distress, other - on BIPAP Abdominal Exam: normal bowel sounds, non tender, soft Extremities: non-tender Alber Rodriguez NP Jun 13, 2018 11:22
--- NOTE | 2018-06-13 11:32 | NUR ---
RD ASSESSMENT & RECOMMENDATIONS SEE CARE ACTIVITY FOR COMPLETE ASSESSMENT DAILY ESTIMATED NEEDS: Needs based on Pulmonary/ 54kg 25-30 kcals/kg 7252-0636 total kcals 1-1.5 g protein/kg 54-81 g total protein 25-30 mL/kg 3254-1288 total fluid mLs NUTRITION DIAGNOSIS: * Swallowing difficulty R/T dysphagia, respiratory status as evidenced by s/p intubation, now extubated on BIPAP, on NGT feeds. * Altered nutrition related lab values R/T volume deficit? clinical condition, prediabetes as evidenced by elev Na (149), elev BUN/creat (56/2.2 trending up), A1C=5.9, elev BG of 201 upon adm -> 143 98 improved. CURRENT TF:NPO PO DIET RECOMMENDATIONS: CARDIAC CARE UNIT NURSE evaluation when medically appropriate ENTERAL NUTRITION RECOMMENDATIONS: Glucerna 1.2 @ 55ml/hr x 24 hrs to provide 1320ml, 1584kcal, 79g prot, 1063ml free water * Rec Glucerna 1.2 for glycemic control * Initiate Glucera 1.2 @ 25ml/hr x 6 hrs, advance 10ml q 4-6 hrs as tolerated to goal rate * HOB over 30 degrees/ water flush per MD. ADDITIONAL RECOMMENDATIONS: * CALIBRATED bedscale wt for accurate CBW- w/ added SPR mattress+ pump * Monitor lytes daily w/ TF, replete as needed * Monitor BGs, need for SSI/hypoglycemic agents * Monitor hydration status- Na, creat, BUN trending up * CARDIAC CARE UNIT NURSE eval when medically appropriate -> on NGT w/ BIPAP at this time .
--- NOTE | 2018-06-13 11:49 | Infectious Diseases Prog Note ---
Assessment/Plan Assessment/Plan 87 yo feamle with PMHx of COPD, HTN, and A.fib sent to the ED from her nuring home for SOB. Sepsis - Likely PNA 06/12 CXR: : Hazy opacification of the right hemithorax, likely reflecting pleural fluid, is unchanged. 05/28/18 CXR with atalectasis vs consolidation in the right side. 06/01/18 CXR - Extensive right hemithorax opacification UA (-) Sputum Cx 05/28/18 - MRSA (Inf Neg) Urine legionella (-) Positive blood Cx - Likely contaminant BCx 05/28/18 - CoNS BCX 05/30/18 - NGTD Leukocytosis 15 on admit - now recurrent mild leukocytosis Febrile to 101.5 - now resolved COPD CAD A. fib Extubated 06/11/18 PLAN - Continue Cefepime # and vancomycin # - Monitor CBC and Temps -CBC, CMP am We will continue to follow Ms. Nowak during this hospitalization. Subjective Allergies: Coded Allergies: Mushroom (Verified Allergy, Severe, 05/28/18) MORPHINE (Unverified Allergy, Intermediate, Itching, 01/04/15) PENICILLINS (Unverified Allergy, Intermediate, Hives, 01/04/15) CELECOXIB (Verified Allergy, Mild, 01/15/09) Subjective afebrile mild leukocytosis yesterda, no cbc today remains on bipap Objective Vital Signs Last 24 Hour Vital Signs Date Time Temp Pulse Resp B/P (MAP) Pulse Ox O2 Delivery O2 Flow Rate FiO2 06/13/18 09:05 100 156/83 06/13/18 08:25 30 06/13/18 08:23 98.7 100 25 156/83 (107) 99 06/13/18 08:00 100 06/13/18 08:00 Bi-pap Bi-pap 06/13/18 07:55 92 28 97 Bi-pap 30 06/13/18 07:43 90 32 96 Bi-pap 30 06/13/18 07:22 90 32 97 Facial 30 06/13/18 04:50 95 29 95 Facial 30 06/13/18 04:00 Bi-pap Bi-pap 06/13/18 04:00 60 06/13/18 04:00 99 06/13/18 04:00 97.7 104 29 147/72 (97) 97 2/11/19 03:45 95 28 98 Bi-pap 40 06/13/18 03:05 91 26 98 Facial 40 06/13/18 03:05 98 26 91 Bi-pap 40 06/13/18 01:00 80 20 100 Facial 50 06/13/18 00:00 95 06/13/18 00:00 Bi-pap Bi-pap 06/13/18 00:00 60 06/13/18 00:00 98.1 98 25 128/64 (85) 100 06/12/18 23:30 88 21 100 Bi-pap 50 06/12/18 23:22 95 24 100 Bi-pap 50 06/12/18 21:06 94 25 99 Facial 50 06/12/18 20:00 60 06/12/18 20:00 Bi-pap Bi-pap 06/12/18 20:00 100 06/12/18 20:00 98.6 98 24 150/70 (96) 100 06/12/18 19:32 95 25 100 Bi-pap 50 06/12/18 19:24 95 27 97 Bi-pap 50 06/12/18 19:24 95 27 97 Facial 50 06/12/18 18:00 94 140/63 06/12/18 17:01 94 24 100 Full Face 60 06/12/18 16:00 Bi-pap Bi-pap 06/12/18 16:00 106 06/12/18 16:00 60 06/12/18 16:00 98.0 106 24 164/71 (102) 100 06/12/18 15:12 93 26 97 Bi-pap 60 06/12/18 15:10 93 21 94 Full Face 60 06/12/18 15:10 93 26 98 Bi-pap 65 06/12/18 15:00 98.6 100 26 140/63 (88) 97 06/12/18 14:00 98 29 143/78 (99) 93 06/12/18 13:14 65 06/12/18 13:08 136 40 87 Full Face 65 06/12/18 13:00 110 31 163/78 (106) 93 06/12/18 12:00 109 26 126/78 (94) 99 06/12/18 12:00 Bi-pap Bi-pap 06/12/18 12:00 105 06/12/18 12:00 80 Height (Feet): 5 Height (Inches): 4.00 Weight (Pounds): 120 Laboratory Tests Test 06/13/18 03:10 Sodium Level 149 MMOL/L (136-145) H Potassium Level 3.7 MMOL/L (3.5-5.1) Chloride Level 107 MMOL/L (98-107) Carbon Dioxide Level 33 MMOL/L (21-32) H Anion Gap 9 mmol/L (5-15) Blood Urea Nitrogen 56 mg/dL (7-18) H Creatinine 2.2 MG/DL (0.55-1.30) H Estimat Glomerular Filtration Rate mL/min (>60) Glucose Level 143 MG/DL (74-106) H Uric Acid 8.1 MG/DL (2.6-7.2) H Calcium Level 9.6 MG/DL (8.5-10.1) Phosphorus Level 4.5 MG/DL (2.5-4.9) Magnesium Level 2.5 MG/DL (1.8-2.4) H Total Bilirubin 0.5 MG/DL (0.2-1.0) Aspartate Amino Transf (AST/SGOT) 25 U/L (15-37) Alanine Aminotransferase (ALT/SGPT) 33 U/L (12-78) Alkaline Phosphatase 92 U/L (46-116) Pro-B-Type Natriuretic Peptide 902 pg/mL (0-125) H Total Protein 7.0 G/DL (6.4-8.2) Albumin 3.2 G/DL (3.4-5.0) L Globulin 3.8 g/dL Albumin/Globulin Ratio 0.8 (1.0-2.7) L Current Medications Medications (Trade) Dose Ordered Sig/Ann Route PRN Reason Start Time Stop Time Status Last Admin Dose Admin Acetaminophen (Tylenol) 650 mg Q4H PRN ORAL Mild Pain/Temp > 100.5 06/12/18 18:00 06/27/18 17:59 Acetylcysteine (Mucomyst) 100 mg Q4HRT N 06/12/18 19:00 07/09/18 21:29 06/13/18 07:44 Albuterol/ Ipratropium (Albuterol/ Ipratropium) 3 ml Q4HRT N 06/12/18 19:00 06/14/18 22:59 06/13/18 07:44 Amiodarone HCl (Cordarone) 100 mg DAILY ORAL 06/13/18 09:00 06/30/18 08:59 06/13/18 09:06 Amlodipine Besylate (Norvasc) 5 mg BID ORAL 06/12/18 18:00 06/27/18 08:59 06/13/18 09:05 Cefepime HCl 1 gm/ Dextrose 55 ml @ 110 mls/hr Q24H IV 06/13/18 09:00 06/17/18 23:59 06/13/18 09:06 Chlorhexidine Gluconate (Myra-Hex 2%) 1 applic DAILY@2000 TOPIC 06/12/18 20:00 07/02/18 19:59 06/12/18 20:03 Haloperidol Lactate (Haldol) 5 mg Q6H PRN IM Agitation 06/12/18 18:15 07/08/18 12:14 Heparin Sodium (Porcine) (Heparin 5000 units/ml) 5,000 units EVERY 12 HOURS SUBQ 06/12/18 21:00 06/27/18 08:59 06/13/18 09:27 Lorazepam (Ativan 2mg/ml 1ml) 0.5 mg Q3H PRN IV For Anxiety 06/12/18 18:15 06/18/18 15:11 Nitroglycerin (Ntg) 0.4 mg Q5M PRN SL Prn Chest Pain 06/12/18 17:45 06/27/18 13:29 Ondansetron HCl (Zofran) 4 mg Q6H PRN IVP Nausea & Vomiting 06/12/18 18:00 06/27/18 17:59 Pantoprazole (Protonix) 40 mg DAILY IV 06/13/18 09:00 07/03/18 08:59 06/13/18 09:04 Polyethylene Glycol (Miralax) 17 gm BEDTIME ORAL 06/12/18 21:00 07/06/18 20:59 06/12/18 21:30 Polyethylene Glycol (Miralax) 17 gm DAILYPRN PRN ORAL Constipation 06/12/18 18:00 07/12/18 17:59 Quetiapine Fumarate (SEROquel) 25 mg Q6H PRN ORAL For Anxiety 06/12/18 18:00 06/29/18 17:59 Vancomycin HCl (Vanco rx to dose) 1 ea DAILY PRN MISC Per rx protocol 06/12/18 18:00 07/12/18 17:59 Vancomycin HCl 750 mg/Sodium Chloride 275 ml @ 183.333 mls/hr Q48H IVPB 06/12/18 16:00 06/17/18 15:59 06/12/18 16:00 Natty Hernandes M.D. Jun 13, 2018 11:49
--- NOTE | 2018-06-13 12:00 | NUR ---
Pt seen by Dr. De Souza. NGT feeding discontinued while pt is on BiPAP per Dr louie.
--- NOTE | 2018-06-13 12:24 | General Progress Note ---
Assessment/Plan Problem List: (1) encephalopathy due to toxin (2) Dementia ICD Codes: F03.90 - Unspecified dementia without behavioral disturbance SNOMED: [id number] Assessment/Plan Haldol Im on board Seroquel 25mg q 6hr prn cont restraints. Subjective Allergies: Coded Allergies: Mushroom (Verified Allergy, Severe, 05/28/18) MORPHINE (Unverified Allergy, Intermediate, Itching, 01/04/15) PENICILLINS (Unverified Allergy, Intermediate, Hives, 01/04/15) CELECOXIB (Verified Allergy, Mild, 01/15/09) Subjective alert agitated attempts to come out of bed anxious Objective Last 24 Hour Vital Signs Date Time Temp Pulse Resp B/P (MAP) Pulse Ox O2 Delivery O2 Flow Rate FiO2 06/13/18 12:00 30 06/13/18 12:00 Bi-pap Bi-pap 06/13/18 09:05 100 156/83 06/13/18 08:25 30 06/13/18 08:23 98.7 100 25 156/83 (107) 99 06/13/18 08:00 100 06/13/18 08:00 Bi-pap Bi-pap 06/13/18 07:55 92 28 97 Bi-pap 30 06/13/18 07:43 90 32 96 Bi-pap 30 06/13/18 07:22 90 32 97 Facial 30 06/13/18 04:50 95 29 95 Facial 30 06/13/18 04:00 Bi-pap Bi-pap 06/13/18 04:00 60 06/13/18 04:00 99 06/13/18 04:00 97.7 104 29 147/72 (97) 97 06/13/18 03:45 95 28 98 Bi-pap 40 06/13/18 03:05 91 26 98 Facial 40 06/13/18 03:05 98 26 91 Bi-pap 40 06/13/18 01:00 80 20 100 Facial 50 06/13/18 00:00 95 06/13/18 00:00 Bi-pap Bi-pap 06/13/18 00:00 60 06/13/18 00:00 98.1 98 25 128/64 (85) 100 06/12/18 23:30 88 21 100 Bi-pap 50 06/12/18 23:22 95 24 100 Bi-pap 50 06/12/18 21:06 94 25 99 Facial 50 06/12/18 20:00 60 06/12/18 20:00 Bi-pap Bi-pap 06/12/18 20:00 100 06/12/18 20:00 98.6 98 24 150/70 (96) 100 06/12/18 19:32 95 25 100 Bi-pap 50 06/12/18 19:24 95 27 97 Bi-pap 50 06/12/18 19:24 95 27 97 Facial 50 06/12/18 18:00 94 140/63 06/12/18 17:01 94 24 100 Full Face 60 06/12/18 16:00 Bi-pap Bi-pap 06/12/18 16:00 106 06/12/18 16:00 60 06/12/18 16:00 98.0 106 24 164/71 (102) 100 06/12/18 15:12 93 26 97 Bi-pap 60 06/12/18 15:10 93 21 94 Full Face 60 06/12/18 15:10 93 26 98 Bi-pap 65 06/12/18 15:00 98.6 100 26 140/63 (88) 97 06/12/18 14:00 98 29 143/78 (99) 93 06/12/18 13:14 65 06/12/18 13:08 136 40 87 Full Face 65 06/12/18 13:00 110 31 163/78 (106) 93 Intake and Output 06/12/18 06/13/18 18:59 06:59 Intake Total 1110 ml 465 ml Output Total 555 ml 678 ml Balance 555 ml -213 ml Free Water 150 ml IV Total 1110 ml Tube Feeding 315 ml Output Urine Total 555 ml 678 ml Laboratory Tests 06/13/18 03:10: Sodium Level 149H, Potassium Level 3.7, Chloride Level 107, Carbon Dioxide Level 33H, Anion Gap 9, Blood Urea Nitrogen 56H, Creatinine 2.2H, Estimat Glomerular Filtration Rate , Glucose Level 143H, Uric Acid 8.1H, Calcium Level 9.6, Phosphorus Level 4.5, Magnesium Level 2.5H, Total Bilirubin 0.5, Aspartate Amino Transf (AST/SGOT) 25, Alanine Aminotransferase (ALT/SGPT) 33, Alkaline Phosphatase 92, Pro-B-Type Natriuretic Peptide 902H, Total Protein 7.0, Albumin 3.2L, Globulin 3.8, Albumin/Globulin Ratio 0.8L Height (Feet): 5 Height (Inches): 4.00 Weight (Pounds): 120 General Appearance: alert, confused, agitated Liz Lo MD Jun 13, 2018 12:24
--- NOTE | 2018-06-13 13:14 | Nephrology Progress Note ---
Assessment/Plan Problem List: (1) Urinary outflow obstruction Assessment: resolved after grewal (2) Acute respiratory failure (3) Dementia (4) Afib Assessment Urinary out let obstruction, relieved after grewal Normal serum Cr Anemia, Low MCV High Ca corrected for low ALbumin other conditions: (1) Acute respiratory failure (2) Aspiration pneumonia (3) Acute encephalopathy (4) Pleural effusion (5) COPD (chronic obstructive pulmonary disease) (6) CAD (coronary artery disease) (7) Dementia Plan extubated now- on BIPAP struggling DC Lasix Fluid challenge K and Phos and Mag as needed slow Hydrate Anemia porter Adjust BP meds fu Lytes Gastric support pulm support- not tolerating bipap consider tube feeding ( PEG) as po is POOR Subjective ROS Limited/Unobtainable: Yes Objective Objective Last 24 Hour Vital Signs Date Time Temp Pulse Resp B/P (MAP) Pulse Ox O2 Delivery O2 Flow Rate FiO2 06/13/18 12:35 91 26 96 Facial 30 06/13/18 12:00 94 06/13/18 12:00 30 06/13/18 12:00 Bi-pap Bi-pap 06/13/18 09:05 100 156/83 06/13/18 08:25 30 06/13/18 08:23 98.7 100 25 156/83 (107) 99 06/13/18 08:00 77 06/13/18 08:00 Bi-pap Bi-pap 06/13/18 07:55 92 28 97 Bi-pap 30 06/13/18 07:43 90 32 96 Bi-pap 30 06/13/18 07:22 90 32 97 Facial 30 06/13/18 04:50 95 29 95 Facial 30 06/13/18 04:00 Bi-pap Bi-pap 06/13/18 04:00 60 06/13/18 04:00 99 06/13/18 04:00 97.7 104 29 147/72 (97) 97 06/13/18 03:45 95 28 98 Bi-pap 40 06/13/18 03:05 91 26 98 Facial 40 06/13/18 03:05 98 26 91 Bi-pap 40 06/13/18 01:00 80 20 100 Facial 50 06/13/18 00:00 95 06/13/18 00:00 Bi-pap Bi-pap 06/13/18 00:00 60 06/13/18 00:00 98.1 98 25 128/64 (85) 100 06/12/18 23:30 88 21 100 Bi-pap 50 06/12/18 23:22 95 24 100 Bi-pap 50 06/12/18 21:06 94 25 99 Facial 50 06/12/18 20:00 60 06/12/18 20:00 Bi-pap Bi-pap 06/12/18 20:00 100 06/12/18 20:00 98.6 98 24 150/70 (96) 100 06/12/18 19:32 95 25 100 Bi-pap 50 06/12/18 19:24 95 27 97 Bi-pap 50 06/12/18 19:24 95 27 97 Facial 50 06/12/18 18:00 94 140/63 06/12/18 17:01 94 24 100 Full Face 60 06/12/18 16:00 Bi-pap Bi-pap 06/12/18 16:00 106 06/12/18 16:00 60 06/12/18 16:00 98.0 106 24 164/71 (102) 100 06/12/18 15:12 93 26 97 Bi-pap 60 06/12/18 15:10 93 21 94 Full Face 60 06/12/18 15:10 93 26 98 Bi-pap 65 06/12/18 15:00 98.6 100 26 140/63 (88) 97 06/12/18 14:00 98 29 143/78 (99) 93 06/12/18 13:14 65 Intake and Output 06/12/18 06/13/18 18:59 06:59 Intake Total 1110 ml 465 ml Output Total 555 ml 678 ml Balance 555 ml -213 ml Free Water 150 ml IV Total 1110 ml Tube Feeding 315 ml Output Urine Total 555 ml 678 ml Laboratory Tests 06/13/18 03:10: Sodium Level 149H, Potassium Level 3.7, Chloride Level 107, Carbon Dioxide Level 33H, Anion Gap 9, Blood Urea Nitrogen 56H, Creatinine 2.2H, Estimat Glomerular Filtration Rate , Glucose Level 143H, Uric Acid 8.1H, Calcium Level 9.6, Phosphorus Level 4.5, Magnesium Level 2.5H, Total Bilirubin 0.5, Aspartate Amino Transf (AST/SGOT) 25, Alanine Aminotransferase (ALT/SGPT) 33, Alkaline Phosphatase 92, Pro-B-Type Natriuretic Peptide 902H, Total Protein 7.0, Albumin 3.2L, Globulin 3.8, Albumin/Globulin Ratio 0.8L Height (Feet): 5 Height (Inches): 4.00 Weight (Pounds): 120 EENT: other - BIPAP Cardiovascular: tachycardia Respiratory/Chest: decreased breath sounds Abdomen: distended Objective no change Kendrick Jimenez MD Jun 13, 2018 13:14
--- NOTE | 2018-06-13 15:30 | NUR ---
Pt's NGT feeding discontinued and no IVF running. Contacted Dr. Valderrama for advice but no response. Will monitor pt and wait for 's call back.
--- NOTE | 2018-06-13 16:03 | NUR ---
Reported ABGs to Dr. De Souza. New orders for BiPap Settings changed acknowledged.
--- NOTE | 2018-06-13 17:27 | Pulmonology Progress Note ---
Assessment/Plan Assessment/Plan Problem List: 1. Acute on chronic hypercapnic respiratory failure 2. R lung collapse, possibly mucous plugging - improved 3. Pulmonary edema 4. chronic obstructive asthma 5. Pneumonia 6. Hx afib Plan: -lower BiPAP to 15 -ABG this evening and in AM -monitor volumes -monitor renal function -Repeat CXR in AM -abx per ID Seen earlier, case d/w RN Subjective ROS Limited/Unobtainable: Yes Interval Events: Remains on BiPAP, transferred out of ICU. Labs stable Allergies: Coded Allergies: Mushroom (Verified Allergy, Severe, 05/28/18) MORPHINE (Unverified Allergy, Intermediate, Itching, 01/04/15) PENICILLINS (Unverified Allergy, Intermediate, Hives, 01/04/15) CELECOXIB (Verified Allergy, Mild, 01/15/09) Objective Last 24 Hour Vital Signs Date Time Temp Pulse Resp B/P (MAP) Pulse Ox O2 Delivery O2 Flow Rate FiO2 06/13/18 17:21 97 140/79 06/13/18 16:00 97 06/13/18 16:00 98.8 115 25 140/79 (99) 94 06/13/18 16:00 40 06/13/18 16:00 Bi-pap Bi-pap 06/13/18 15:58 104 28 92 Bi-pap 40 06/13/18 15:45 102 28 92 Facial 40 06/13/18 15:40 98.8 06/13/18 13:16 95 25 96 Bi-pap 30 06/13/18 12:35 91 26 96 Facial 30 06/13/18 12:00 99.5 107 27 154/76 (102) 95 06/13/18 12:00 94 06/13/18 12:00 30 06/13/18 12:00 Bi-pap Bi-pap 06/13/18 09:05 100 156/83 06/13/18 08:25 30 06/13/18 08:23 98.7 100 25 156/83 (107) 99 06/13/18 08:00 77 06/13/18 08:00 Bi-pap Bi-pap 06/13/18 07:55 92 28 97 Bi-pap 30 06/13/18 07:43 90 32 96 Bi-pap 30 06/13/18 07:22 90 32 97 Facial 30 06/13/18 04:50 95 29 95 Facial 30 06/13/18 04:00 Bi-pap Bi-pap 06/13/18 04:00 60 06/13/18 04:00 99 06/13/18 04:00 97.7 104 29 147/72 (97) 97 06/13/18 03:45 95 28 98 Bi-pap 40 06/13/18 03:05 91 26 98 Facial 40 06/13/18 03:05 98 26 91 Bi-pap 40 06/13/18 01:00 80 20 100 Facial 50 06/13/18 00:00 95 06/13/18 00:00 Bi-pap Bi-pap 06/13/18 00:00 60 06/13/18 00:00 98.1 98 25 128/64 (85) 100 06/12/18 23:30 88 21 100 Bi-pap 50 06/12/18 23:22 95 24 100 Bi-pap 50 06/12/18 21:06 94 25 99 Facial 50 06/12/18 20:00 60 06/12/18 20:00 Bi-pap Bi-pap 06/12/18 20:00 100 06/12/18 20:00 98.6 98 24 150/70 (96) 100 06/12/18 19:32 95 25 100 Bi-pap 50 06/12/18 19:24 95 27 97 Bi-pap 50 06/12/18 19:24 95 27 97 Facial 50 06/12/18 18:00 94 140/63 Intake and Output 06/12/18 06/13/18 19:00 07:00 Intake Total 1110 ml 465 ml Output Total 585 ml 618 ml Balance 525 ml -153 ml Free Water 150 ml IV Total 1110 ml Tube Feeding 315 ml Output Urine Total 585 ml 618 ml General Appearance: no acute distress HEENT: atraumatic Respiratory/Chest: crackles/rales Cardiovascular: regular rhythm Abdomen: soft, non tender Extremities: no edema Laboratory Tests 06/13/18 03:10: Sodium Level 149H, Potassium Level 3.7, Chloride Level 107, Carbon Dioxide Level 33H, Anion Gap 9, Blood Urea Nitrogen 56H, Creatinine 2.2H, Estimat Glomerular Filtration Rate , Glucose Level 143H, Uric Acid 8.1H, Calcium Level 9.6, Phosphorus Level 4.5, Magnesium Level 2.5H, Total Bilirubin 0.5, Aspartate Amino Transf (AST/SGOT) 25, Alanine Aminotransferase (ALT/SGPT) 33, Alkaline Phosphatase 92, Pro-B-Type Natriuretic Peptide 902H, Total Protein 7.0, Albumin 3.2L, Globulin 3.8, Albumin/Globulin Ratio 0.8L 06/13/18 13:40: Arterial Blood pH 7.440, Arterial Blood Partial Pressure CO2 50.7H, Arterial Blood Partial Pressure O2 66.3L, Arterial Blood HCO3 33.7H, Arterial Blood Oxygen Saturation 93.6L, Arterial Blood Base Excess 8.2H, David Test Positive Current Medications Medications (Trade) Dose Ordered Sig/Ann Route PRN Reason Start Time Stop Time Status Last Admin Dose Admin Acetaminophen (Tylenol) 650 mg Q4H PRN ORAL Mild Pain/Temp > 100.5 06/12/18 18:00 06/27/18 17:59 06/13/18 15:10 Acetylcysteine (Mucomyst) 100 mg Q4HRT N 06/12/18 19:00 07/09/18 21:29 06/13/18 15:58 Albuterol/ Ipratropium (Albuterol/ Ipratropium) 3 ml Q4HRT N 06/12/18 19:00 06/14/18 22:59 06/13/18 15:58 Amiodarone HCl (Cordarone) 100 mg DAILY ORAL 06/13/18 09:00 06/30/18 08:59 06/13/18 09:06 Amlodipine Besylate (Norvasc) 5 mg BID ORAL 06/12/18 18:00 06/27/18 08:59 06/13/18 17:21 Cefepime HCl 1 gm/ Dextrose 55 ml @ 110 mls/hr Q24H IV 06/13/18 09:00 06/17/18 23:59 06/13/18 09:06 Chlorhexidine Gluconate (Myra-Hex 2%) 1 applic DAILY@2000 TOPIC 06/12/18 20:00 07/02/18 19:59 06/12/18 20:03 Dextrose/ Electrolytes 1,000 ml @ 60 mls/hr [id number] IV 06/13/18 17:30 07/13/18 17:29 Haloperidol Lactate (Haldol) 5 mg Q6H PRN IM Agitation 06/12/18 18:15 07/08/18 12:14 Heparin Sodium (Porcine) (Heparin 5000 units/ml) 5,000 units EVERY 12 HOURS SUBQ 06/12/18 21:00 06/27/18 08:59 06/13/18 09:27 Lorazepam (Ativan 2mg/ml 1ml) 0.5 mg Q3H PRN IV For Anxiety 06/12/18 18:15 06/18/18 15:11 Nitroglycerin (Ntg) 0.4 mg Q5M PRN SL Prn Chest Pain 06/12/18 17:45 06/27/18 13:29 Ondansetron HCl (Zofran) 4 mg Q6H PRN IVP Nausea & Vomiting 06/12/18 18:00 06/27/18 17:59 Pantoprazole (Protonix) 40 mg DAILY IV 06/13/18 09:00 07/03/18 08:59 06/13/18 09:04 Polyethylene Glycol (Miralax) 17 gm BEDTIME ORAL 06/12/18 21:00 07/06/18 20:59 06/12/18 21:30 Polyethylene Glycol (Miralax) 17 gm DAILYPRN PRN ORAL Constipation 06/12/18 18:00 07/12/18 17:59 Quetiapine Fumarate (SEROquel) 25 mg Q6H PRN ORAL For Anxiety 06/12/18 18:00 06/29/18 17:59 Vancomycin HCl (Vanco rx to dose) 1 ea DAILY PRN MISC Per rx protocol 06/12/18 18:00 07/12/18 17:59 Vancomycin HCl 750 mg/Sodium Chloride 275 ml @ 183.333 mls/hr Q48H IVPB 06/12/18 16:00 06/17/18 15:59 06/12/18 16:00 Varinder De Souza MD Jun 13, 2018 17:27
[2018-06-13] MEDS ORDERED: D5 1/2NS w/KCl 20mEq 1,000 ML IV SCH (17:30)
--- NOTE | 2018-06-13 17:30 | NUR ---
Received call back from Dr. Valderrama. Instructed to order D5 1/2NS with 20 mEq KCL at 60 cc/Hr (TO/RB).
--- NOTE | 2018-06-13 17:45 | NUR ---
Performed oral care for patient. Lower dentures out of place noted. Placed dentures in blue cup with patient's label and placed with belongings. Pt is in no cardiopulmonary distress. Mental status is improving and pt is able to respond to yes/no questions by nodding. Bed is in lowest position. Side rails up. Call light within reach.
--- NOTE | 2018-06-13 18:39 | NUR ---
Patient's son William at bedside communicating with patient in [facility]. Pt is responsive and exhibits improved mental status. William inquired about the patient's feeding method. I explained reason for NGT feeding discontinuation and that she is now on IVF (D5 1/2NS 20 mEq KCL). Addendum: 06/13/18 at 1848 by Kristin Umana RN Instructed William to wear PPE d/t pt's isolation status.
--- NOTE | 2018-06-13 19:18 | NUR ---
NURSE NOTES: Report received from MARGY Foster. Patient seen in bed in lopes position with family member by bedside. Currently patient is on Bipap with setting of 15/5, 35%. NPO at this time. patient is alert, verbally responsive, able to make needs known with episode of confusion at time. PCC line to right upper arm is intact and IVF of D5 1/2NS is running a 60CC/hr. Sinclair cath is present and is intact, urine is draining. Denies any pain at this time. NGT noted to right nare and is intact. Bed is in lowest position. Call light is within easy reach when in bed. Will continue to monitor.
--- NOTE | 2018-06-13 19:20 | NUR ---
HAND-OFF: Report given to Phan Gutierrez RN. Pt is in stable condition. No signs of cardiopulmonary distress. Family is currently at bedside communicating with patient. SaO2 95% RR 16. Improved mental status noted. Bed is in lowest position. Side rails up. Call light within reach. Addendum: 06/13/18 at 1942 by Kristin Umana RN Called RT to follow up but no response as of yet. Notified Phan that AB order is pending.
--- NOTE | 2018-06-13 20:20 | NUR ---
RESPIRATORY NOTE: PT. RECEIVED ON 14/09 RATE OF 16 40% FI02. DUE TO DESATURATION FIO2 WAS INCREASED TO 80% FOR ABOUT AN HOUR THEN RETURNED TO 40%. PT IS NOW STABLE BUT RESTLESS. BIPAP CIRCUIT AND MASK SECURE AND OUT OF THE WAY. SPONGE TAPE SECURELY PLACED. PT HAS BILATERAL WRIST RESTRAINS THAT ARE SECURELY PLACED. NO RESPIRATORY DISTRESS NOTED. WILL CONTINUE TO MONITOR.
[2018-06-13] MEDS: Dyna-Hex 2% Top Sol 2oz TOPIC SCH (20:32)
[2018-06-13] MEDS: Miralax 17gm pkt ORAL SCH (20:33)
--- NOTE | 2018-06-13 20:34 | Cardiology Progress Note ---
Assessment/Plan Assessment/Plan COPD, congestive heart failure, atrial fibrillation sinus tachy agitation right lung collapse? anemia pleural effusion extubated but remains on bipap d/w famiy at bedside cxr reviewed dvt ppx all trop neg cr elelvated is npo is on ngt feedign on ivf off diuretic Subjective Cardiovascular: Denies: chest pain, lightheadedness, palpitations Respiratory: Denies: shortness of breath Subjective extubated on bipap Objective Last 24 Hour Vital Signs Date Time Temp Pulse Resp B/P (MAP) Pulse Ox O2 Delivery O2 Flow Rate FiO2 06/13/18 17:22 108 29 97 Full Face 40 06/13/18 17:21 97 140/79 06/13/18 16:08 101 27 96 Bi-pap 40 06/13/18 16:00 97 06/13/18 16:00 98.8 115 25 140/79 (99) 94 06/13/18 16:00 40 06/13/18 16:00 Bi-pap Bi-pap 06/13/18 15:58 104 28 92 Bi-pap 40 06/13/18 15:45 102 28 92 Facial 40 06/13/18 15:40 98.8 06/13/18 13:16 95 25 96 Bi-pap 30 06/13/18 12:35 91 26 96 Facial 30 06/13/18 12:00 99.5 107 27 154/76 (102) 95 06/13/18 12:00 94 06/13/18 12:00 30 06/13/18 12:00 Bi-pap Bi-pap 06/13/18 09:05 100 156/83 06/13/18 08:25 30 06/13/18 08:23 98.7 100 25 156/83 (107) 99 06/13/18 08:00 77 06/13/18 08:00 Bi-pap Bi-pap 06/13/18 07:55 92 28 97 Bi-pap 30 06/13/18 07:43 90 32 96 Bi-pap 30 06/13/18 07:22 90 32 97 Facial 30 06/13/18 04:50 95 29 95 Facial 30 06/13/18 04:00 Bi-pap Bi-pap 06/13/18 04:00 60 06/13/18 04:00 99 06/13/18 04:00 97.7 104 29 147/72 (97) 97 06/13/18 03:45 95 28 98 Bi-pap 40 06/13/18 03:05 91 26 98 Facial 40 06/13/18 03:05 98 26 91 Bi-pap 40 06/13/18 01:00 80 20 100 Facial 50 06/13/18 00:00 95 06/13/18 00:00 Bi-pap Bi-pap 06/13/18 00:00 60 06/13/18 00:00 98.1 98 25 128/64 (85) 100 06/12/18 23:30 88 21 100 Bi-pap 50 06/12/18 23:22 95 24 100 Bi-pap 50 06/12/18 21:06 94 25 99 Facial 50 General Appearance: no apparent distress, other - on bipap Neck: supple Cardiovascular: normal rate Respiratory/Chest: lungs clear Abdomen: normal bowel sounds, non tender, soft Extremities: trace edema Intake and Output 06/12/18 06/13/18 19:00 07:00 Intake Total 1110 ml 465 ml Output Total 585 ml 618 ml Balance 525 ml -153 ml Free Water 150 ml IV Total 1110 ml Tube Feeding 315 ml Output Urine Total 585 ml 618 ml Laboratory Tests Test 06/13/18 03:10 06/13/18 13:40 Sodium Level 149 MMOL/L (136-145) H Potassium Level 3.7 MMOL/L (3.5-5.1) Chloride Level 107 MMOL/L (98-107) Carbon Dioxide Level 33 MMOL/L (21-32) H Anion Gap 9 mmol/L (5-15) Blood Urea Nitrogen 56 mg/dL (7-18) H Creatinine 2.2 MG/DL (0.55-1.30) H Estimat Glomerular Filtration Rate mL/min (>60) Glucose Level 143 MG/DL (74-106) H Uric Acid 8.1 MG/DL (2.6-7.2) H Calcium Level 9.6 MG/DL (8.5-10.1) Phosphorus Level 4.5 MG/DL (2.5-4.9) Magnesium Level 2.5 MG/DL (1.8-2.4) H Total Bilirubin 0.5 MG/DL (0.2-1.0) Aspartate Amino Transf (AST/SGOT) 25 U/L (15-37) Alanine Aminotransferase (ALT/SGPT) 33 U/L (12-78) Alkaline Phosphatase 92 U/L (46-116) Pro-B-Type Natriuretic Peptide 902 pg/mL (0-125) H Total Protein 7.0 G/DL (6.4-8.2) Albumin 3.2 G/DL (3.4-5.0) L Globulin 3.8 g/dL Albumin/Globulin Ratio 0.8 (1.0-2.7) L Arterial Blood pH 7.440 (7.350-7.450) Arterial Blood Partial Pressure CO2 50.7 mmHg (35.0-45.0) H Arterial Blood Partial Pressure O2 66.3 mmHg (75.0-100.0) L Arterial Blood HCO3 33.7 mmol/L (22.0-26.0) H Arterial Blood Oxygen Saturation 93.6 % (95-100) L Arterial Blood Base Excess 8.2 (-2-2) H David Test Positive Geoffrey Sandhu MD Jun 13, 2018 20:34
[2018-06-13] MEDS ORDERED: Albuterol/Ipratropium 3ml neb ONE (20:43)
--- NOTE | 2018-06-13 21:04 | General Progress Note ---
Assessment/Plan Status: progressing Assessment/Plan This is an 87-year-old female admitted with chronic obstructive pulmonary disease exacerbation, right lower lobe infiltrate/pneumonia with altered mental status and acute kidney injury. The patient will be admitted to [facility] with the following medical problems. 1. Chronic obstructive pulmonary disease exacerbation and pneumonia. The patient has been seen by Pulmonary. Infectious Disease has been consulted, pancultured. IV antibiotics per ID. Continue with BiPAP and suction p.r.n. Transition to Venturi-mask when stable. 2. Acute kidney injury. We will monitor I's and O's, gentle intravenous fluids. Repeat a BMP in a.m. Consider Nephrology consult. 3. History of chronic atrial fibrillation. Continue with amiodarone. The patient is in sinus rhythm at this time. 4. History of hypertension. Continue with amlodipine and hold for systolic blood pressure less than 110. 5. Altered mental status, most likely from above conditions. We will keep n.p.o. except for medications and start IV fluids. 6. DVT prophylaxis with heparin subcutaneous and SCDs. 7. The patient is Full Code per policy. We will discuss with the family. 8. hypokalmia 9. Anemia 10. CHf acute on chronic 11. leucocytosis Plan: - now in [facility] - Bipap as tolerated - add mucomyst HHN - change Duoneb HHN to q 4 - NPO - swallow study when off Bipap - monitor BUN CRE - pt mobitiliy when more alert - will start mainatenance IV fluids D5 1/2 NS with 20 meq kcl at 60 cc/hr discussed with nurse Subjective Date patient seen: Jun 13, 2018 ROS Limited/Unobtainable: Yes Allergies: Coded Allergies: Mushroom (Verified Allergy, Severe, 05/28/18) MORPHINE (Unverified Allergy, Intermediate, Itching, 01/04/15) PENICILLINS (Unverified Allergy, Intermediate, Hives, 01/04/15) CELECOXIB (Verified Allergy, Mild, 01/15/09) Subjective now extubated and transfered to [facility] on , continues on Bipap, NPO Objective Last 24 Hour Vital Signs Date Time Temp Pulse Resp B/P (MAP) Pulse Ox O2 Delivery O2 Flow Rate FiO2 06/13/18 20:56 94 25 93 Bi-pap 40 06/13/18 17:22 108 29 97 Full Face 40 06/13/18 17:21 97 140/79 06/13/18 16:08 101 27 96 Bi-pap 40 06/13/18 16:00 97 06/13/18 16:00 98.8 115 25 140/79 (99) 94 06/13/18 16:00 40 06/13/18 16:00 Bi-pap Bi-pap 06/13/18 15:58 104 28 92 Bi-pap 40 06/13/18 15:45 102 28 92 Facial 40 06/13/18 15:40 98.8 06/13/18 13:16 95 25 96 Bi-pap 30 06/13/18 12:35 91 26 96 Facial 30 06/13/18 12:00 99.5 107 27 154/76 (102) 95 06/13/18 12:00 94 06/13/18 12:00 30 06/13/18 12:00 Bi-pap Bi-pap 06/13/18 09:05 100 156/83 06/13/18 08:25 30 06/13/18 08:23 98.7 100 25 156/83 (107) 99 06/13/18 08:00 77 06/13/18 08:00 Bi-pap Bi-pap 06/13/18 07:55 92 28 97 Bi-pap 30 06/13/18 07:43 90 32 96 Bi-pap 30 06/13/18 07:22 90 32 97 Facial 30 06/13/18 04:50 95 29 95 Facial 30 06/13/18 04:00 Bi-pap Bi-pap 06/13/18 04:00 60 06/13/18 04:00 99 06/13/18 04:00 97.7 104 29 147/72 (97) 97 06/13/18 03:45 95 28 98 Bi-pap 40 06/13/18 03:05 91 26 98 Facial 40 06/13/18 03:05 98 26 91 Bi-pap 40 06/13/18 01:00 80 20 100 Facial 50 06/13/18 00:00 95 06/13/18 00:00 Bi-pap Bi-pap 06/13/18 00:00 60 06/13/18 00:00 98.1 98 25 128/64 (85) 100 06/12/18 23:30 88 21 100 Bi-pap 50 06/12/18 23:22 95 24 100 Bi-pap 50 06/12/18 21:06 94 25 99 Facial 50 Intake and Output 06/12/18 06/13/18 19:00 07:00 Intake Total 1110 ml 465 ml Output Total 585 ml 618 ml Balance 525 ml -153 ml Free Water 150 ml IV Total 1110 ml Tube Feeding 315 ml Output Urine Total 585 ml 618 ml Laboratory Tests 06/13/18 03:10: Sodium Level 149H, Potassium Level 3.7, Chloride Level 107, Carbon Dioxide Level 33H, Anion Gap 9, Blood Urea Nitrogen 56H, Creatinine 2.2H, Estimat Glomerular Filtration Rate , Glucose Level 143H, Uric Acid 8.1H, Calcium Level 9.6, Phosphorus Level 4.5, Magnesium Level 2.5H, Total Bilirubin 0.5, Aspartate Amino Transf (AST/SGOT) 25, Alanine Aminotransferase (ALT/SGPT) 33, Alkaline Phosphatase 92, Pro-B-Type Natriuretic Peptide 902H, Total Protein 7.0, Albumin 3.2L, Globulin 3.8, Albumin/Globulin Ratio 0.8L 06/13/18 13:40: Arterial Blood pH 7.440, Arterial Blood Partial Pressure CO2 50.7H, Arterial Blood Partial Pressure O2 66.3L, Arterial Blood HCO3 33.7H, Arterial Blood Oxygen Saturation 93.6L, Arterial Blood Base Excess 8.2H, David Test Positive Height (Feet): 5 Height (Inches): 4.00 Weight (Pounds): 120 General Appearance: no apparent distress, alert EENT: PERRL/EOMI, pharynx normal Neck: non-tender, supple Cardiovascular: normal rate, regular rhythm, no gallop/murmur, no JVD Respiratory/Chest: rhonchi - bilaterally Abdomen: non tender, soft, no mass Extremities: non-tender, normal inspection, no calf tenderness Edema: no edema noted Arm (L), no edema noted Arm (R), no edema noted Leg (L), no edema noted Leg (R), no edema noted Pedal (L), no edema noted Pedal (R), no edema noted Generalized Neurologic: responsive Skin: warm/dry Lymphatic: normal anterior cervical (L), normal anterior cervical (R), normal posterior cervical (L), normal posterior cervical (R), normal submandibular (L) , normal submandibular (R), normal supraclavicular (L), normal supraclavicular ( R), normal axillary (L), normal axillary (R), normal inguinal (L), normal inguinal (R), normal other Cruz Valderrama MD Jun 13, 2018 21:04
--- NOTE | 2018-06-13 21:58 | NUR ---
RESPIRATORY NOTE: FIO2 INCREASED FROM 40% TO 60% POST ABG RESULTS. ALL VS WNL. SPO2 92-96%. BIPAP MASK CHANGED TO FULL FACE MASK. OLD SPONGE TAPE WAS REMOVED AND REPLACED POST FACIAL INSPECTION. NO REDNESS OR SKIN BREAKDOWN WAS FOUND. WILL CONTINUE TO MONITOR.
[2018-06-14] VITALS: BP 145/72
--- NOTE | 2018-06-14 03:00 | NUR ---
HAND-OFF: Report given to MARGY Munoz.
--- NOTE | 2018-06-14 03:00 | NUR ---
NURSE NOTES: Received report from Phan RN, pt. in bed awake, A/o x's2-3- able to make needs known, no signs of acute cardiac or respiratory distress noted, bed in lowest position and call light within easy reach, pt. appears to be sating well on BIPAP at 15/5 Fio2 at 60%- no distress noted, cardiac monitoring on, call light within easy reach, bed in lowest position and bed a alarm on, side rails up x's3 and safety brakes engaged, pt. has NGT to Rt. nare- intact, Sinclair intact and draining to gravity, pt. is clean and dry and comfort measures provided, MILY PICC intact and patent running D5 1/2 NS +20 meq K at 60cc/hr, safety measures continued, will continue with plan of care.
[2018-06-14] MEDS: Albuterol/Ipratropium 3ml neb HHN SCH ×5 (03:13→19:18)
[2018-06-14] MEDS: Acetylcysteine 20% Soln 4ml HHN SCH ×5 (03:13→19:18)
--- NOTE | 2018-06-14 03:43 | NUR ---
HAND-OFF: Report given to Phan Vieyra, pt. remains stable and no signs of distress noted.
[2018-06-14 04:00] VITALS: BP 143/71
--- NOTE | 2018-06-14 04:44 | NUR ---
RESPIRATORY NOTE: PT. REMAINED STABLE ON BIPAP WITH CURRENT SETTINGS. MASK AND CIRCUIT SECURE AND OUT OF THE WAY. NO SIGNS OF RESPIRATORY DISTRESS NOTED AT HIS TIME.
[2018-06-14 05:55] LABS: BASOPHILS % (AUTO) 0.5 % (0.0-2.0); EOSINOPHILS % (AUTO) 3.4 % (0.0-3.0); HEMATOCRIT 33.8 % (37.0-47.0); HEMOGLOBIN 10.6 G/DL (12.0-16.0); LYMPHOCYTES % (AUTO) 13.5 % (20.0-45.0); MEAN CORPUSCULAR VOLUME 73 FL (80-99); MONOCYTES % (AUTO) 6.6 % (1.0-10.0); NEUTROPHILS % (AUTO) 75.9 % (45.0-75.0); PLATELET COUNT 395 K/UL (150-450); RED BLOOD COUNT 4.61 M/UL (4.20-5.40); RED CELL DISTRIBUTION WIDTH 18.1 % (11.6-14.8); WHITE BLOOD COUNT 11.1 K/UL (4.8-10.8)
[2018-06-14 06:17] LABS: ALANINE AMINOTRANSFERASE 36 U/L (12-78); ALBUMIN/GLOBULIN RATIO 0.6 (1.0-2.7); ALKALINE PHOSPHATASE 105 U/L (46-116); ANION GAP 8 mmol/L (5-15); ASPARTATE AMINO TRANSFERASE 27 U/L (15-37); BILIRUBIN,TOTAL 0.4 MG/DL (0.2-1.0); BLOOD UREA NITROGEN 49 mg/dL (7-18); CALCIUM 9.6 MG/DL (8.5-10.1); CARBON DIOXIDE 33 MMOL/L (21-32); CHLORIDE 108 MMOL/L (98-107); POTASSIUM 3.3 MMOL/L (3.5-5.1); SODIUM 149 MMOL/L (136-145)
--- NOTE | 2018-06-14 06:35 | NUR ---
NURSE NOTES: paged Dr Valderrama, regarding abnormal lab results ( Na 149, K 3.3) Currently awaiting for call back.
--- NOTE | 2018-06-14 07:00 | NUR ---
Received patient on BIPAP 15/5 PS 10 FIO2 60% BUR 16. Currently on full face mask tolerating BIPAP well. Will continue to monitor throughout the day.
--- NOTE | 2018-06-14 07:32 | NUR ---
HAND-OFF: Report given to MARGY Paz .
[2018-06-14] MEDS ORDERED: D5 1/4NS w/KCl 20mEq 1,000 ML IV SCH (07:45)
[2018-06-14 08:00] VITALS: BP 151/81
--- NOTE | 2018-06-14 08:13 | NUR ---
NURSE NOTES: Report received from MARGY Chisholm. Observed patient in bed. Open eyes, restless, and tried get out of the bed. On restraint on bilateral wrists with no skin breakdown and good circulation. No s/s of pain at this time. On BIPAP continuously with no distress noted. PICC line intact and patent. F/C intact and draining well. NGT intact with no feeding at this time. Bed in lowest position. Call light within reach. Will continue to monitor.
[2018-06-14] MEDS: Pantoprazole Inj IV SCH (08:32)
[2018-06-14] MEDS: Amiodarone 200mg tab ORAL SCH (08:32)
[2018-06-14] MEDS: Cefepime HCl 1 GM in D5W 55 ML IV SCH (08:33)
[2018-06-14] MEDS: Heparin 5000 units/ml inj SUBQ SCH ×2 (08:34→20:30)
--- NOTE | 2018-06-14 09:54 | NUR ---
RADIOLOGY DEPT CHEST X-RAY DONE.-P.DYE
[2018-06-14] MEDS ORDERED: D5NS 1000ml IV ONE (11:00)
[2018-06-14] MEDS ORDERED: NS 275ml ONE (11:00)
--- NOTE | 2018-06-14 11:07 | Pulmonology Progress Note ---
Assessment/Plan Assessment/Plan Problem List: 1. Acute on chronic hypercapnic respiratory failure 2. R lung collapse, possibly mucous plugging - improved 3. Pulmonary edema 4. chronic obstructive asthma 5. Pneumonia 6. Hx afib Plan: -BiPAP 15/5 continuous with extended breaks as tolerated -transition to venturi -monitor volumes -monitor renal function -Repeat CXR f/u -abx per ID case d/w RN Subjective ROS Limited/Unobtainable: Yes Interval Events: Tolerating BiPAP 15/5. ABG reviewed. Some secretions. Allergies: Coded Allergies: Mushroom (Verified Allergy, Severe, 05/28/18) MORPHINE (Unverified Allergy, Intermediate, Itching, 01/04/15) PENICILLINS (Unverified Allergy, Intermediate, Hives, 01/04/15) CELECOXIB (Verified Allergy, Mild, 01/15/09) Objective Last 24 Hour Vital Signs Date Time Temp Pulse Resp B/P (MAP) Pulse Ox O2 Delivery O2 Flow Rate FiO2 06/14/18 10:58 107 20 93 Venturi Mask 12.0 50 06/14/18 10:52 110 26 94 Bi-pap 60 06/14/18 08:53 97 32 96 Full Face 55 06/14/18 08:33 101 151/81 06/14/18 08:00 111 06/14/18 08:00 55 06/14/18 08:00 Bi-pap Bi-pap Bi-pap 06/14/18 08:00 98.1 114 32 151/81 (104) 95 06/14/18 07:11 Bi-pap 60 06/14/18 07:11 Bi-pap 60 06/14/18 07:09 116 34 93 Full Face 60 06/14/18 04:44 100 27 94 Full Face 60 06/14/18 04:00 98.4 101 27 143/71 (95) 99 06/14/18 04:00 60 06/14/18 04:00 Bi-pap 60.0 Bi-pap 60.0 Bi-pap 06/14/18 03:41 99 06/14/18 03:22 99 22 96 Bi-pap 60 06/14/18 03:12 104 24 99 Full Face 60 06/14/18 03:12 100 24 94 Bi-pap 60 06/14/18 00:44 94 26 92 Full Face 60 06/14/18 00:00 Bi-pap 60.0 Bi-pap 60.0 Bi-pap 06/14/18 00:00 98.1 93 25 145/72 (96) 97 06/13/18 23:38 94 23 94 Bi-pap 60 06/13/18 23:28 94 26 98 Full Face 60 06/13/18 23:28 9 26 94 Bi-pap 60 06/13/18 23:24 94 06/13/18 21:58 91 20 96 Full Face 60 06/13/18 21:23 94 19 92 Facial 40 06/13/18 21:04 85 22 95 Bi-pap 40 06/13/18 20:56 94 25 93 Bi-pap 40 06/13/18 20:20 92 21 97 Facial 80 06/13/18 20:00 98.4 99 24 146/89 (108) 98 06/13/18 20:00 60 06/13/18 20:00 91 06/13/18 20:00 Bi-pap Bi-pap 06/13/18 17:22 108 29 97 Full Face 40 06/13/18 17:21 97 140/79 06/13/18 16:08 101 27 96 Bi-pap 40 06/13/18 16:00 97 06/13/18 16:00 98.8 115 25 140/79 (99) 94 06/13/18 16:00 40 06/13/18 16:00 Bi-pap Bi-pap 06/13/18 15:58 104 28 92 Bi-pap 40 06/13/18 15:45 102 28 92 Facial 40 06/13/18 15:40 98.8 06/13/18 13:16 95 25 96 Bi-pap 30 06/13/18 12:35 91 26 96 Facial 30 06/13/18 12:00 99.5 107 27 154/76 (102) 95 06/13/18 12:00 94 06/13/18 12:00 30 06/13/18 12:00 Bi-pap Bi-pap Intake and Output 06/13/18 06/14/18 19:00 07:00 Intake Total 310 ml 600 ml Output Total 550 ml 450 ml Balance -240 ml 150 ml IV Total 130 ml 600 ml Tube Feeding 180 ml Output Urine Total 550 ml 450 ml General Appearance: no acute distress HEENT: atraumatic Respiratory/Chest: other - coarse breath sounds Cardiovascular: regular rhythm Abdomen: soft, non tender Extremities: no edema Neurologic/Psychiatric: responsive Laboratory Tests 06/13/18 13:40: Arterial Blood pH 7.440, Arterial Blood Partial Pressure CO2 50.7H, Arterial Blood Partial Pressure O2 66.3L, Arterial Blood HCO3 33.7H, Arterial Blood Oxygen Saturation 93.6L, Arterial Blood Base Excess 8.2H, David Test Positive 06/13/18 21:29: Arterial Blood pH 7.406, Arterial Blood Partial Pressure CO2 58.9*H, Arterial Blood Partial Pressure O2 48.8*L, Arterial Blood HCO3 36.2H, Arterial Blood Oxygen Saturation 85.5*L, Arterial Blood Base Excess 9.7*H, David Test Positive 06/14/18 03:35: White Blood Count 11.1H, Red Blood Count 4.61, Hemoglobin 10.6L, Hematocrit 33.8L, Mean Corpuscular Volume 73L, Mean Corpuscular Hemoglobin 22.9L, Mean Corpuscular Hemoglobin Concent 31.3L, Red Cell Distribution Width 18.1H, Platelet Count 395, Mean Platelet Volume 8.1, Neutrophils (%) (Auto) 75.9H, Lymphocytes (%) (Auto) 13.5L, Monocytes (%) (Auto) 6.6, Eosinophils (%) (Auto) 3.4H, Basophils (%) (Auto) 0.5, Sodium Level 149H, Potassium Level 3.3L, Chloride Level 108H, Carbon Dioxide Level 33H, Anion Gap 8, Blood Urea Nitrogen 49H, Creatinine 2.0H, Estimat Glomerular Filtration Rate , Glucose Level 121H, Calcium Level 9.6, Total Bilirubin 0.4, Aspartate Amino Transf (AST/SGOT) 27, Alanine Aminotransferase (ALT/SGPT) 36, Alkaline Phosphatase 105, Total Protein 7.8, Albumin 3.0L, Globulin 4.8, Albumin/Globulin Ratio 0.6L 06/14/18 08:45: Arterial Blood pH 7.400, Arterial Blood Partial Pressure CO2 55.1*H, Arterial Blood Partial Pressure O2 99.2, Arterial Blood HCO3 33.4H, Arterial Blood Oxygen Saturation 97.2, Arterial Blood Base Excess 7.2H, David Test Positive Current Medications Medications (Trade) Dose Ordered Sig/Ann Route PRN Reason Start Time Stop Time Status Last Admin Dose Admin Acetaminophen (Tylenol) 650 mg Q4H PRN ORAL Mild Pain/Temp > 100.5 06/12/18 18:00 06/27/18 17:59 06/13/18 15:10 Acetylcysteine (Mucomyst) 100 mg Q4HRT HHN 06/12/18 19:00 07/09/18 21:29 06/14/18 10:57 Albuterol/ Ipratropium (Albuterol/ Ipratropium) 3 ml Q4HRT HHN 06/12/18 19:00 06/14/18 22:59 06/14/18 10:57 Amiodarone HCl (Cordarone) 100 mg DAILY ORAL 06/13/18 09:00 06/30/18 08:59 06/14/18 08:32 Amlodipine Besylate (Norvasc) 5 mg BID ORAL 06/12/18 18:00 06/27/18 08:59 06/14/18 08:33 Cefepime HCl 1 gm/ Dextrose 55 ml @ 110 mls/hr Q24H IV 06/13/18 09:00 06/17/18 23:59 06/14/18 08:33 Chlorhexidine Gluconate (Myra-Hex 2%) 1 applic DAILY@2000 TOPIC 06/12/18 20:00 07/02/18 19:59 06/13/18 20:32 Dextrose/ Electrolytes 1,000 ml @ 60 mls/hr [id number] IV 06/14/18 07:45 07/14/18 07:44 06/14/18 09:44 Haloperidol Lactate (Haldol) 5 mg Q6H PRN IM Agitation 06/12/18 18:15 07/08/18 12:14 Heparin Sodium (Porcine) (Heparin 5000 units/ml) 5,000 units EVERY 12 HOURS SUBQ 06/12/18 21:00 06/27/18 08:59 06/14/18 08:34 Lorazepam (Ativan 2mg/ml 1ml) 0.5 mg Q3H PRN IV For Anxiety 06/12/18 18:15 06/18/18 15:11 Nitroglycerin (Ntg) 0.4 mg Q5M PRN SL Prn Chest Pain 06/12/18 17:45 06/27/18 13:29 Ondansetron HCl (Zofran) 4 mg Q6H PRN IVP Nausea & Vomiting 06/12/18 18:00 06/27/18 17:59 Pantoprazole (Protonix) 40 mg DAILY IV 06/13/18 09:00 07/03/18 08:59 06/14/18 08:32 Polyethylene Glycol (Miralax) 17 gm BEDTIME ORAL 06/12/18 21:00 07/06/18 20:59 06/13/18 20:33 Polyethylene Glycol (Miralax) 17 gm DAILYPRN PRN ORAL Constipation 06/12/18 18:00 07/12/18 17:59 Potassium Chloride 100 ml @ 50 mls/hr ONCE IVPB 06/14/18 10:15 06/14/18 13:00 06/14/18 10:48 Quetiapine Fumarate (SEROquel) 25 mg Q6H PRN ORAL For Anxiety 06/12/18 18:00 06/29/18 17:59 Vancomycin HCl (Vanco rx to dose) 1 ea DAILY PRN MISC Per rx protocol 06/12/18 18:00 07/12/18 17:59 Vancomycin HCl 750 mg/Sodium Chloride 275 ml @ 183.333 mls/hr Q48H IVPB 06/12/18 16:00 06/17/18 15:59 06/12/18 16:00 Varinder De Souza MD Jun 14, 2018 11:07
[2018-06-14 12:00] VITALS: BP 151/78
--- NOTE | 2018-06-14 12:17 | Nephrology Progress Note ---
Assessment/Plan Problem List: (1) Urinary outflow obstruction Assessment: resolved after grewal (2) Acute respiratory failure (3) Dementia (4) Afib Assessment Urinary out let obstruction, relieved after grewal Normal serum Cr Anemia, Low MCV High Ca corrected for low ALbumin other conditions: (1) Acute respiratory failure (2) Aspiration pneumonia (3) Acute encephalopathy (4) Pleural effusion (5) COPD (chronic obstructive pulmonary disease) (6) CAD (coronary artery disease) (7) Dementia Plan extubated now- on BIPAP struggling DC Lasix Fluid challenge K and Phos and Mag as needed slow Hydrate Anemia porter Adjust BP meds fu Lytes Gastric support pulm support- not tolerating bipap consider tube feeding ( PEG) as po is POOR Subjective ROS Limited/Unobtainable: No Constitutional: Reports: malaise Objective Objective Last 24 Hour Vital Signs Date Time Temp Pulse Resp B/P (MAP) Pulse Ox O2 Delivery O2 Flow Rate FiO2 06/14/18 10:58 107 20 93 Venturi Mask 12.0 50 06/14/18 10:52 110 26 94 Bi-pap 60 06/14/18 08:53 97 32 96 Full Face 55 06/14/18 08:33 101 151/81 06/14/18 08:00 111 06/14/18 08:00 55 06/14/18 08:00 Bi-pap Bi-pap Bi-pap 06/14/18 08:00 98.1 114 32 151/81 (104) 95 06/14/18 07:11 Bi-pap 60 06/14/18 07:11 Bi-pap 60 06/14/18 07:09 116 34 93 Full Face 60 06/14/18 04:44 100 27 94 Full Face 60 06/14/18 04:00 98.4 101 27 143/71 (95) 99 06/14/18 04:00 60 06/14/18 04:00 Bi-pap 60.0 Bi-pap 60.0 Bi-pap 06/14/18 03:41 99 06/14/18 03:22 99 22 96 Bi-pap 60 06/14/18 03:12 104 24 99 Full Face 60 06/14/18 03:12 100 24 94 Bi-pap 60 06/14/18 00:44 94 26 92 Full Face 60 06/14/18 00:00 Bi-pap 60.0 Bi-pap 60.0 Bi-pap 06/14/18 00:00 98.1 93 25 145/72 (96) 97 06/13/18 23:38 94 23 94 Bi-pap 60 06/13/18 23:28 94 26 98 Full Face 60 06/13/18 23:28 9 26 94 Bi-pap 60 06/13/18 23:24 94 06/13/18 21:58 91 20 96 Full Face 60 06/13/18 21:23 94 19 92 Facial 40 06/13/18 21:04 85 22 95 Bi-pap 40 06/13/18 20:56 94 25 93 Bi-pap 40 06/13/18 20:20 92 21 97 Facial 80 06/13/18 20:00 98.4 99 24 146/89 (108) 98 06/13/18 20:00 60 06/13/18 20:00 91 06/13/18 20:00 Bi-pap Bi-pap 06/13/18 17:22 108 29 97 Full Face 40 06/13/18 17:21 97 140/79 06/13/18 16:08 101 27 96 Bi-pap 40 06/13/18 16:00 97 06/13/18 16:00 98.8 115 25 140/79 (99) 94 06/13/18 16:00 40 06/13/18 16:00 Bi-pap Bi-pap 06/13/18 15:58 104 28 92 Bi-pap 40 06/13/18 15:45 102 28 92 Facial 40 06/13/18 15:40 98.8 06/13/18 13:16 95 25 96 Bi-pap 30 06/13/18 12:35 91 26 96 Facial 30 Intake and Output 06/13/18 06/14/18 18:59 06:59 Intake Total 295 ml 615 ml Output Total 550 ml 450 ml Balance -255 ml 165 ml IV Total 115 ml 615 ml Tube Feeding 180 ml Output Urine Total 550 ml 450 ml Laboratory Tests 06/13/18 13:40: Arterial Blood pH 7.440, Arterial Blood Partial Pressure CO2 50.7H, Arterial Blood Partial Pressure O2 66.3L, Arterial Blood HCO3 33.7H, Arterial Blood Oxygen Saturation 93.6L, Arterial Blood Base Excess 8.2H, David Test Positive 06/13/18 21:29: Arterial Blood pH 7.406, Arterial Blood Partial Pressure CO2 58.9*H, Arterial Blood Partial Pressure O2 48.8*L, Arterial Blood HCO3 36.2H, Arterial Blood Oxygen Saturation 85.5*L, Arterial Blood Base Excess 9.7*H, David Test Positive 06/14/18 03:35: White Blood Count 11.1H, Red Blood Count 4.61, Hemoglobin 10.6L, Hematocrit 33.8L, Mean Corpuscular Volume 73L, Mean Corpuscular Hemoglobin 22.9L, Mean Corpuscular Hemoglobin Concent 31.3L, Red Cell Distribution Width 18.1H, Platelet Count 395, Mean Platelet Volume 8.1, Neutrophils (%) (Auto) 75.9H, Lymphocytes (%) (Auto) 13.5L, Monocytes (%) (Auto) 6.6, Eosinophils (%) (Auto) 3.4H, Basophils (%) (Auto) 0.5, Sodium Level 149H, Potassium Level 3.3L, Chloride Level 108H, Carbon Dioxide Level 33H, Anion Gap 8, Blood Urea Nitrogen 49H, Creatinine 2.0H, Estimat Glomerular Filtration Rate , Glucose Level 121H, Calcium Level 9.6, Total Bilirubin 0.4, Aspartate Amino Transf (AST/SGOT) 27, Alanine Aminotransferase (ALT/SGPT) 36, Alkaline Phosphatase 105, Total Protein 7.8, Albumin 3.0L, Globulin 4.8, Albumin/Globulin Ratio 0.6L 06/14/18 08:45: Arterial Blood pH 7.400, Arterial Blood Partial Pressure CO2 55.1*H, Arterial Blood Partial Pressure O2 99.2, Arterial Blood HCO3 33.4H, Arterial Blood Oxygen Saturation 97.2, Arterial Blood Base Excess 7.2H, David Test Positive Height (Feet): 5 Height (Inches): 4.00 Weight (Pounds): 120 EENT: other - BIPAP Cardiovascular: tachycardia Respiratory/Chest: decreased breath sounds Abdomen: distended Objective no change Kendrick Jimenez MD Jun 14, 2018 12:17
--- NOTE | 2018-06-14 12:31 | Diagnostic Imaging Report ---
Indication: Dyspnea Technique: One view of the chest Comparison: To 02/19/2019 Findings: Diffuse right lung hazy opacity appears similar to the prior exam. Stable satisfactory positions of nasogastric tube, right arm PICC. Left lung and pleural space remain largely clear except for some central bronchial wall thickening which is unchanged. The heart is borderline enlarged Impression: Unchanged, over 2 days, findings as above.
--- NOTE | 2018-06-14 12:43 | General Progress Note ---
Assessment/Plan Problem List: (1) encephalopathy due to toxin (2) Dementia ICD Codes: F03.90 - Unspecified dementia without behavioral disturbance SNOMED: 09739501 Assessment/Plan Haldol Im on board Seroquel 25mg q 6hr prn cont restraints. Subjective Allergies: Coded Allergies: Mushroom (Verified Allergy, Severe, 05/28/18) MORPHINE (Unverified Allergy, Intermediate, Itching, 01/04/15) PENICILLINS (Unverified Allergy, Intermediate, Hives, 01/04/15) CELECOXIB (Verified Allergy, Mild, 01/15/09) Subjective no changes alert agitated attempts to come out of bed anxious Objective Last 24 Hour Vital Signs Date Time Temp Pulse Resp B/P (MAP) Pulse Ox O2 Delivery O2 Flow Rate FiO2 06/14/18 10:58 107 20 93 Venturi Mask 12.0 50 06/14/18 10:52 110 26 94 Bi-pap 60 06/14/18 08:53 97 32 96 Full Face 55 06/14/18 08:33 101 151/81 06/14/18 08:00 111 06/14/18 08:00 55 06/14/18 08:00 Bi-pap Bi-pap Bi-pap 06/14/18 08:00 98.1 114 32 151/81 (104) 95 06/14/18 07:11 Bi-pap 60 06/14/18 07:11 Bi-pap 60 06/14/18 07:09 116 34 93 Full Face 60 06/14/18 04:44 100 27 94 Full Face 60 06/14/18 04:00 98.4 101 27 143/71 (95) 99 06/14/18 04:00 60 06/14/18 04:00 Bi-pap 60.0 Bi-pap 60.0 Bi-pap 06/14/18 03:41 99 06/14/18 03:22 99 22 96 Bi-pap 60 06/14/18 03:12 104 24 99 Full Face 60 06/14/18 03:12 100 24 94 Bi-pap 60 06/14/18 00:44 94 26 92 Full Face 60 06/14/18 00:00 Bi-pap 60.0 Bi-pap 60.0 Bi-pap 06/14/18 00:00 98.1 93 25 145/72 (96) 97 06/13/18 23:38 94 23 94 Bi-pap 60 06/13/18 23:28 94 26 98 Full Face 60 06/13/18 23:28 9 26 94 Bi-pap 60 06/13/18 23:24 94 06/13/18 21:58 91 20 96 Full Face 60 06/13/18 21:23 94 19 92 Facial 40 06/13/18 21:04 85 22 95 Bi-pap 40 06/13/18 20:56 94 25 93 Bi-pap 40 06/13/18 20:20 92 21 97 Facial 80 06/13/18 20:00 98.4 99 24 146/89 (108) 98 06/13/18 20:00 60 06/13/18 20:00 91 06/13/18 20:00 Bi-pap Bi-pap 06/13/18 17:22 108 29 97 Full Face 40 06/13/18 17:21 97 140/79 06/13/18 16:08 101 27 96 Bi-pap 40 06/13/18 16:00 97 06/13/18 16:00 98.8 115 25 140/79 (99) 94 06/13/18 16:00 40 06/13/18 16:00 Bi-pap Bi-pap 06/13/18 15:58 104 28 92 Bi-pap 40 06/13/18 15:45 102 28 92 Facial 40 06/13/18 15:40 98.8 06/13/18 13:16 95 25 96 Bi-pap 30 Intake and Output 06/13/18 06/14/18 18:59 06:59 Intake Total 295 ml 615 ml Output Total 550 ml 450 ml Balance -255 ml 165 ml IV Total 115 ml 615 ml Tube Feeding 180 ml Output Urine Total 550 ml 450 ml Laboratory Tests 06/13/18 13:40: Arterial Blood pH 7.440, Arterial Blood Partial Pressure CO2 50.7H, Arterial Blood Partial Pressure O2 66.3L, Arterial Blood HCO3 33.7H, Arterial Blood Oxygen Saturation 93.6L, Arterial Blood Base Excess 8.2H, David Test Positive 06/13/18 21:29: Arterial Blood pH 7.406, Arterial Blood Partial Pressure CO2 58.9*H, Arterial Blood Partial Pressure O2 48.8*L, Arterial Blood HCO3 36.2H, Arterial Blood Oxygen Saturation 85.5*L, Arterial Blood Base Excess 9.7*H, David Test Positive 06/14/18 03:35: White Blood Count 11.1H, Red Blood Count 4.61, Hemoglobin 10.6L, Hematocrit 33.8L, Mean Corpuscular Volume 73L, Mean Corpuscular Hemoglobin 22.9L, Mean Corpuscular Hemoglobin Concent 31.3L, Red Cell Distribution Width 18.1H, Platelet Count 395, Mean Platelet Volume 8.1, Neutrophils (%) (Auto) 75.9H, Lymphocytes (%) (Auto) 13.5L, Monocytes (%) (Auto) 6.6, Eosinophils (%) (Auto) 3.4H, Basophils (%) (Auto) 0.5, Sodium Level 149H, Potassium Level 3.3L, Chloride Level 108H, Carbon Dioxide Level 33H, Anion Gap 8, Blood Urea Nitrogen 49H, Creatinine 2.0H, Estimat Glomerular Filtration Rate , Glucose Level 121H, Calcium Level 9.6, Total Bilirubin 0.4, Aspartate Amino Transf (AST/SGOT) 27, Alanine Aminotransferase (ALT/SGPT) 36, Alkaline Phosphatase 105, Total Protein 7.8, Albumin 3.0L, Globulin 4.8, Albumin/Globulin Ratio 0.6L 06/14/18 08:45: Arterial Blood pH 7.400, Arterial Blood Partial Pressure CO2 55.1*H, Arterial Blood Partial Pressure O2 99.2, Arterial Blood HCO3 33.4H, Arterial Blood Oxygen Saturation 97.2, Arterial Blood Base Excess 7.2H, David Test Positive Height (Feet): 5 Height (Inches): 4.00 Weight (Pounds): 120 General Appearance: alert, confused, agitated Liz Lo MD Jun 14, 2018 12:43
--- NOTE | 2018-06-14 15:44 | GI Progress Note ---
Assessment/Plan Problems: (1) Severe malnutrition ICD Codes: E43 - Unspecified severe protein-calorie malnutrition SNOMED: 34290348 (2) Dementia ICD Codes: F03.90 - Unspecified dementia without behavioral disturbance SNOMED: 84548171 (3) Confused ICD Codes: R41.0 - Disorientation, unspecified SNOMED: 441936153 (4) Encounter for PEG (percutaneous endoscopic gastrostomy) ICD Codes: Z43.1 - Encounter for attention to gastrostomy SNOMED: 598741835, 801151281 (5) Failure to thrive SNOMED: 96789468 (6) Acute encephalopathy ICD Codes: G93.40 - Encephalopathy, unspecified SNOMED: 9807693 Status: progressing Status Narrative Discussed with Dr. Acevedo. Assessment/Plan Assessment - Resp failure - NGT dependent - COPD - CHF - PNA - Anemia - Poor prognosis -No plans for tracheostomy as of yet, patient has failed weening multiple times. Now on Venturi Mask. Recommendations - NGT feeds, discussed with family regarding PEG placement. >> family refusing at this time - Vent care - Elevated HOB - Monitor residuals - Abx - Pulmonary toilet -Follow labs The patient was seen and examined at bedside and all new and available data was reviewed in the patients chart. I agree with the above findings, impression and plan. (Patient seen earlier today. Signature stamp does not reflect patient encounter time.). - Jacobo Acevedo MD Subjective Subjective Limited Objective Last 24 Hour Vital Signs Date Time Temp Pulse Resp B/P (MAP) Pulse Ox O2 Delivery O2 Flow Rate FiO2 06/14/18 15:24 111 24 96 Venturi Mask 14.0 55 06/14/18 15:16 115 22 93 Venturi Mask 14.0 55 06/14/18 12:00 98.7 119 30 151/78 (102) 90 06/14/18 12:00 12.0 55 06/14/18 12:00 122 06/14/18 12:00 Bi-pap 12.0 Venturi Mask 12.0 Venturi Mask 06/14/18 10:58 107 20 93 Venturi Mask 12.0 50 06/14/18 10:52 110 26 94 Bi-pap 60 06/14/18 08:53 97 32 96 Full Face 55 06/14/18 08:33 101 151/81 06/14/18 08:00 111 06/14/18 08:00 55 06/14/18 08:00 Bi-pap Bi-pap Bi-pap 06/14/18 08:00 98.1 114 32 151/81 (104) 95 06/14/18 07:11 Bi-pap 60 06/14/18 07:11 Bi-pap 60 06/14/18 07:09 116 34 93 Full Face 60 06/14/18 04:44 100 27 94 Full Face 60 06/14/18 04:00 98.4 101 27 143/71 (95) 99 06/14/18 04:00 60 06/14/18 04:00 Bi-pap 60.0 Bi-pap 60.0 Bi-pap 06/14/18 03:41 99 06/14/18 03:22 99 22 96 Bi-pap 60 06/14/18 03:12 104 24 99 Full Face 60 06/14/18 03:12 100 24 94 Bi-pap 60 06/14/18 00:44 94 26 92 Full Face 60 06/14/18 00:00 Bi-pap 60.0 Bi-pap 60.0 Bi-pap 06/14/18 00:00 98.1 93 25 145/72 (96) 97 06/13/18 23:38 94 23 94 Bi-pap 60 06/13/18 23:28 94 26 98 Full Face 60 06/13/18 23:28 9 26 94 Bi-pap 60 06/13/18 23:24 94 06/13/18 21:58 91 20 96 Full Face 60 06/13/18 21:23 94 19 92 Facial 40 06/13/18 21:04 85 22 95 Bi-pap 40 06/13/18 20:56 94 25 93 Bi-pap 40 06/13/18 20:20 92 21 97 Facial 80 06/13/18 20:00 98.4 99 24 146/89 (108) 98 06/13/18 20:00 60 06/13/18 20:00 91 06/13/18 20:00 Bi-pap Bi-pap 06/13/18 17:22 108 29 97 Full Face 40 06/13/18 17:21 97 140/79 06/13/18 16:08 101 27 96 Bi-pap 40 06/13/18 16:00 97 06/13/18 16:00 98.8 115 25 140/79 (99) 94 06/13/18 16:00 40 06/13/18 16:00 Bi-pap Bi-pap 06/13/18 15:58 104 28 92 Bi-pap 40 06/13/18 15:45 102 28 92 Facial 40 Intake and Output 06/13/18 06/14/18 18:59 06:59 Intake Total 295 ml 615 ml Output Total 550 ml 450 ml Balance -255 ml 165 ml IV Total 115 ml 615 ml Tube Feeding 180 ml Output Urine Total 550 ml 450 ml Laboratory Tests Test 06/13/18 21:29 06/14/18 03:35 06/14/18 08:45 Arterial Blood pH 7.406 (7.350-7.450) 7.400 (7.350-7.450) Arterial Blood Partial Pressure CO2 58.9 mmHg (35.0-45.0) *H 55.1 mmHg (35.0-45.0) *H Arterial Blood Partial Pressure O2 48.8 mmHg (75.0-100.0) 99.2 mmHg (75.0-100.0) Arterial Blood HCO3 36.2 mmol/L (22.0-26.0) H 33.4 mmol/L (22.0-26.0) H Arterial Blood Oxygen Saturation 85.5 % (95-100) *L 97.2 % (95-100) Arterial Blood Base Excess 9.7 (-2-2) *H 7.2 (-2-2) H David Test Positive Positive White Blood Count 11.1 K/UL (4.8-10.8) H Red Blood Count 4.61 M/UL (4.20-5.40) Hemoglobin 10.6 G/DL (12.0-16.0) L Hematocrit 33.8 % (37.0-47.0) L Mean Corpuscular Volume 73 FL (80-99) L Mean Corpuscular Hemoglobin 22.9 PG (27.0-31.0) L Mean Corpuscular Hemoglobin Concent 31.3 G/DL (32.0-36.0) L Red Cell Distribution Width 18.1 % (11.6-14.8) H Platelet Count 395 K/UL (150-450) Mean Platelet Volume 8.1 FL (6.5-10.1) Neutrophils (%) (Auto) 75.9 % (45.0-75.0) H Lymphocytes (%) (Auto) 13.5 % (20.0-45.0) L Monocytes (%) (Auto) 6.6 % (1.0-10.0) Eosinophils (%) (Auto) 3.4 % (0.0-3.0) H Basophils (%) (Auto) 0.5 % (0.0-2.0) Sodium Level 149 MMOL/L (136-145) H Potassium Level 3.3 MMOL/L (3.5-5.1) L Chloride Level 108 MMOL/L (98-107) H Carbon Dioxide Level 33 MMOL/L (21-32) H Anion Gap 8 mmol/L (5-15) Blood Urea Nitrogen 49 mg/dL (7-18) H Creatinine 2.0 MG/DL (0.55-1.30) H Estimat Glomerular Filtration Rate mL/min (>60) Glucose Level 121 MG/DL (74-106) H Calcium Level 9.6 MG/DL (8.5-10.1) Total Bilirubin 0.4 MG/DL (0.2-1.0) Aspartate Amino Transf (AST/SGOT) 27 U/L (15-37) Alanine Aminotransferase (ALT/SGPT) 36 U/L (12-78) Alkaline Phosphatase 105 U/L (46-116) Total Protein 7.8 G/DL (6.4-8.2) Albumin 3.0 G/DL (3.4-5.0) L Globulin 4.8 g/dL Albumin/Globulin Ratio 0.6 (1.0-2.7) L Height (Feet): 5 Height (Inches): 4.00 Weight (Pounds): 120 General Appearance: WD/WN, no apparent distress, alert Cardiovascular: normal rate Respiratory/Chest: normal breath sounds, no respiratory distress Abdominal Exam: normal bowel sounds, non tender, soft Extremities: normal range of motion, non-tender Alber Rodriguez NP Jun 14, 2018 15:44
--- NOTE | 2018-06-14 15:53 | Infectious Diseases Prog Note ---
Assessment/Plan Assessment/Plan 87 yo feamle with PMHx of COPD, HTN, and A.fib sent to the ED from her nuring home for SOB. Sepsis - Likely PNA 06/14 CXR: Diffuse right lung hazy opacity appears similar to the prior exam. 06/12 CXR: : Hazy opacification of the right hemithorax, likely reflecting pleural fluid, is unchanged. 05/28/18 CXR with atalectasis vs consolidation in the right side. 06/01/18 CXR - Extensive right hemithorax opacification UA (-) Sputum Cx 05/28/18 - MRSA (Inf Neg) Urine legionella (-) Positive blood Cx - Likely contaminant BCx 05/28/18 - CoNS BCX 05/30/18 - NGTD Leukocytosis 15 on admit - now recurrent mild leukocytosis Febrile to 101.5 - now resolved COPD CAD A. fib Extubated 06/11/18 PLAN - Continue Cefepime #18/ and vancomycin #18/ - Monitor CBC and Temps We will continue to follow Ms. Nowak during this hospitalization. Subjective Allergies: Coded Allergies: Mushroom (Verified Allergy, Severe, 05/28/18) MORPHINE (Unverified Allergy, Intermediate, Itching, 01/04/15) PENICILLINS (Unverified Allergy, Intermediate, Hives, 01/04/15) CELECOXIB (Verified Allergy, Mild, 01/15/09) Subjective afebrile leukocytosis improving Objective Vital Signs Last 24 Hour Vital Signs Date Time Temp Pulse Resp B/P (MAP) Pulse Ox O2 Delivery O2 Flow Rate FiO2 06/14/18 15:24 111 24 96 Venturi Mask 14.0 55 06/14/18 15:16 115 22 93 Venturi Mask 14.0 55 06/14/18 12:00 98.7 119 30 151/78 (102) 90 06/14/18 12:00 12.0 55 06/14/18 12:00 122 06/14/18 12:00 Bi-pap 12.0 Venturi Mask 12.0 Venturi Mask 06/14/18 10:58 107 20 93 Venturi Mask 12.0 50 06/14/18 10:52 110 26 94 Bi-pap 60 06/14/18 08:53 97 32 96 Full Face 55 06/14/18 08:33 101 151/81 06/14/18 08:00 111 2/12/19 08:00 55 06/14/18 08:00 Bi-pap Bi-pap Bi-pap 06/14/18 08:00 98.1 114 32 151/81 (104) 95 06/14/18 07:11 Bi-pap 60 06/14/18 07:11 Bi-pap 60 06/14/18 07:09 116 34 93 Full Face 60 06/14/18 04:44 100 27 94 Full Face 60 06/14/18 04:00 98.4 101 27 143/71 (95) 99 06/14/18 04:00 60 06/14/18 04:00 Bi-pap 60.0 Bi-pap 60.0 Bi-pap 06/14/18 03:41 99 06/14/18 03:22 99 22 96 Bi-pap 60 06/14/18 03:12 104 24 99 Full Face 60 06/14/18 03:12 100 24 94 Bi-pap 60 06/14/18 00:44 94 26 92 Full Face 60 06/14/18 00:00 Bi-pap 60.0 Bi-pap 60.0 Bi-pap 06/14/18 00:00 98.1 93 25 145/72 (96) 97 06/13/18 23:38 94 23 94 Bi-pap 60 06/13/18 23:28 94 26 98 Full Face 60 06/13/18 23:28 9 26 94 Bi-pap 60 06/13/18 23:24 94 06/13/18 21:58 91 20 96 Full Face 60 06/13/18 21:23 94 19 92 Facial 40 06/13/18 21:04 85 22 95 Bi-pap 40 06/13/18 20:56 94 25 93 Bi-pap 40 06/13/18 20:20 92 21 97 Facial 80 06/13/18 20:00 98.4 99 24 146/89 (108) 98 06/13/18 20:00 60 06/13/18 20:00 91 06/13/18 20:00 Bi-pap Bi-pap 06/13/18 17:22 108 29 97 Full Face 40 06/13/18 17:21 97 140/79 06/13/18 16:08 101 27 96 Bi-pap 40 06/13/18 16:00 97 06/13/18 16:00 98.8 115 25 140/79 (99) 94 06/13/18 16:00 40 06/13/18 16:00 Bi-pap Bi-pap 06/13/18 15:58 104 28 92 Bi-pap 40 Height (Feet): 5 Height (Inches): 4.00 Weight (Pounds): 120 Objective General Appearance: no apparent distress, other - on bipap Neck: supple Cardiovascular: normal rate Respiratory/Chest: lungs clear Abdomen: normal bowel sounds, non tender, soft Extremities: trace edema Laboratory Tests Test 06/13/18 21:29 06/14/18 03:35 06/14/18 08:45 Arterial Blood pH 7.406 (7.350-7.450) 7.400 (7.350-7.450) Arterial Blood Partial Pressure CO2 58.9 mmHg (35.0-45.0) *H 55.1 mmHg (35.0-45.0) *H Arterial Blood Partial Pressure O2 48.8 mmHg (75.0-100.0) 99.2 mmHg (75.0-100.0) Arterial Blood HCO3 36.2 mmol/L (22.0-26.0) H 33.4 mmol/L (22.0-26.0) H Arterial Blood Oxygen Saturation 85.5 % (95-100) *L 97.2 % (95-100) Arterial Blood Base Excess 9.7 (-2-2) *H 7.2 (-2-2) H David Test Positive Positive White Blood Count 11.1 K/UL (4.8-10.8) H Red Blood Count 4.61 M/UL (4.20-5.40) Hemoglobin 10.6 G/DL (12.0-16.0) L Hematocrit 33.8 % (37.0-47.0) L Mean Corpuscular Volume 73 FL (80-99) L Mean Corpuscular Hemoglobin 22.9 PG (27.0-31.0) L Mean Corpuscular Hemoglobin Concent 31.3 G/DL (32.0-36.0) L Red Cell Distribution Width 18.1 % (11.6-14.8) H Platelet Count 395 K/UL (150-450) Mean Platelet Volume 8.1 FL (6.5-10.1) Neutrophils (%) (Auto) 75.9 % (45.0-75.0) H Lymphocytes (%) (Auto) 13.5 % (20.0-45.0) L Monocytes (%) (Auto) 6.6 % (1.0-10.0) Eosinophils (%) (Auto) 3.4 % (0.0-3.0) H Basophils (%) (Auto) 0.5 % (0.0-2.0) Sodium Level 149 MMOL/L (136-145) H Potassium Level 3.3 MMOL/L (3.5-5.1) L Chloride Level 108 MMOL/L (98-107) H Carbon Dioxide Level 33 MMOL/L (21-32) H Anion Gap 8 mmol/L (5-15) Blood Urea Nitrogen 49 mg/dL (7-18) H Creatinine 2.0 MG/DL (0.55-1.30) H Estimat Glomerular Filtration Rate mL/min (>60) Glucose Level 121 MG/DL (74-106) H Calcium Level 9.6 MG/DL (8.5-10.1) Total Bilirubin 0.4 MG/DL (0.2-1.0) Aspartate Amino Transf (AST/SGOT) 27 U/L (15-37) Alanine Aminotransferase (ALT/SGPT) 36 U/L (12-78) Alkaline Phosphatase 105 U/L (46-116) Total Protein 7.8 G/DL (6.4-8.2) Albumin 3.0 G/DL (3.4-5.0) L Globulin 4.8 g/dL Albumin/Globulin Ratio 0.6 (1.0-2.7) L Current Medications Medications (Trade) Dose Ordered Sig/Ann Route PRN Reason Start Time Stop Time Status Last Admin Dose Admin Acetaminophen (Tylenol) 650 mg Q4H PRN ORAL Mild Pain/Temp > 100.5 06/12/18 18:00 06/27/18 17:59 06/13/18 15:10 Acetylcysteine (Mucomyst) 100 mg Q4HRT [facility] 06/12/18 19:00 07/09/18 21:29 06/14/18 15:23 Albuterol/ Ipratropium (Albuterol/ Ipratropium) 3 ml Q4HRT N 06/12/18 19:00 06/14/18 22:59 06/14/18 15:23 Amiodarone HCl (Cordarone) 100 mg DAILY ORAL 06/13/18 09:00 06/30/18 08:59 06/14/18 08:32 Amlodipine Besylate (Norvasc) 5 mg BID ORAL 06/12/18 18:00 06/27/18 08:59 06/14/18 08:33 Cefepime HCl 1 gm/ Dextrose 55 ml @ 110 mls/hr Q24H IV 06/13/18 09:00 06/17/18 23:59 06/14/18 08:33 Chlorhexidine Gluconate (Myra-Hex 2%) 1 applic DAILY@2000 TOPIC 06/12/18 20:00 07/02/18 19:59 06/13/18 20:32 Dextrose/ Electrolytes 1,000 ml @ 60 mls/hr [id number] IV 06/14/18 07:45 07/14/18 07:44 06/14/18 09:44 Haloperidol Lactate (Haldol) 5 mg Q6H PRN IM Agitation 06/12/18 18:15 07/08/18 12:14 Heparin Sodium (Porcine) (Heparin 5000 units/ml) 5,000 units EVERY 12 HOURS SUBQ 06/12/18 21:00 06/27/18 08:59 06/14/18 08:34 Lorazepam (Ativan 2mg/ml 1ml) 0.5 mg Q3H PRN IV For Anxiety 06/12/18 18:15 06/18/18 15:11 Nitroglycerin (Ntg) 0.4 mg Q5M PRN SL Prn Chest Pain 06/12/18 17:45 06/27/18 13:29 Ondansetron HCl (Zofran) 4 mg Q6H PRN IVP Nausea & Vomiting 06/12/18 18:00 06/27/18 17:59 Pantoprazole (Protonix) 40 mg DAILY IV 06/13/18 09:00 07/03/18 08:59 06/14/18 08:32 Polyethylene Glycol (Miralax) 17 gm BEDTIME ORAL 06/12/18 21:00 07/06/18 20:59 06/13/18 20:33 Polyethylene Glycol (Miralax) 17 gm DAILYPRN PRN ORAL Constipation 06/12/18 18:00 07/12/18 17:59 Quetiapine Fumarate (SEROquel) 25 mg Q6H PRN ORAL For Anxiety 06/12/18 18:00 06/29/18 17:59 Vancomycin HCl (Vanco rx to dose) 1 ea DAILY PRN MISC Per rx protocol 06/12/18 18:00 07/12/18 17:59 Vancomycin HCl 750 mg/Sodium Chloride 275 ml @ 183.333 mls/hr Q48H IVPB 06/12/18 16:00 06/17/18 15:59 06/12/18 16:00 Natty Hernandes M.D. Jun 14, 2018 15:53
[2018-06-14 16:00] VITALS: BP 147/70
[2018-06-14] MEDS: Vancomycin 750 MG in NS 275 ML IVPB SCH (16:33)
--- NOTE | 2018-06-14 19:25 | NUR ---
HAND-OFF: Report given to Phan Gutierrez RN. Pt in stable condition. No signs of cardiopulmonary distress. Noted with fever of 100.1 and Tylenol given. Endorsed to MARGY Chisholm. Bed in lowest position. Side rails up. Call light within reach.
--- NOTE | 2018-06-14 19:26 | NUR ---
NURSE NOTES: Report received from MARGY Paz. patient seen in bed in lopes position with venturi mask on. 15L, 50% at this time. Spo2 is 93%. Denies any pain at this time. noted with elevated temp of 100.1, cooling measures provided. Patient is still on soft wrist restraints due to pulling tubing out. No redness, swelling or skin breakdown noted to bilateral wrist. Noted with NGT to right nare, currently feeding is Osmolite 1.5 at 30cc/hr, tolerating well. goal is 40cc/hr. PICC line to right upper arm is intact. Patient is on IVF of D5 1/4NS with 20mEq K running at 60cc/hr. Sinclair cath is in place and urine is flowing. Bed is in lowest position. Call light is within easy reach while in bed. Will continue to monitor.
[2018-06-14 20:00] VITALS: BP 146/65
--- NOTE | 2018-06-14 20:23 | Cardiology Progress Note ---
Assessment/Plan Assessment/Plan COPD, congestive heart failure, atrial fibrillation sinus tachy agitation right lung collapse? anemia pleural effusion extubated but remains on bipap d/w family at bedside cxr reviewed dvt ppx all trop neg cr elelvated is npo is on ngt feedign Subjective Cardiovascular: Denies: chest pain Respiratory: Reports: cough, shortness of breath Gastrointestinal/Abdominal: Denies: abdominal pain Subjective on face mask Objective Last 24 Hour Vital Signs Date Time Temp Pulse Resp B/P (MAP) Pulse Ox O2 Delivery O2 Flow Rate FiO2 06/14/18 19:46 114 22 94 Venturi Mask 14.0 55 06/14/18 19:27 105 22 94 Venturi Mask 14.0 55 06/14/18 18:16 117 147/70 06/14/18 16:00 99.1 111 27 147/70 (95) 91 06/14/18 16:00 Venturi Mask 12.0 Venturi Mask 12.0 Venturi Mask 06/14/18 16:00 117 06/14/18 16:00 12.0 55 06/14/18 15:24 111 24 96 Venturi Mask 14.0 55 06/14/18 15:16 115 22 93 Venturi Mask 14.0 55 06/14/18 12:00 98.7 119 30 151/78 (102) 90 06/14/18 12:00 12.0 55 06/14/18 12:00 122 06/14/18 12:00 Bi-pap 12.0 Venturi Mask 12.0 Venturi Mask 06/14/18 10:58 107 20 93 Venturi Mask 12.0 50 06/14/18 10:52 110 26 94 Bi-pap 60 06/14/18 08:53 97 32 96 Full Face 55 06/14/18 08:33 101 151/81 06/14/18 08:00 111 06/14/18 08:00 55 06/14/18 08:00 Bi-pap Bi-pap Bi-pap 06/14/18 08:00 98.1 114 32 151/81 (104) 95 06/14/18 07:11 Bi-pap 60 06/14/18 07:11 Bi-pap 60 06/14/18 07:09 116 34 93 Full Face 60 06/14/18 04:44 100 27 94 Full Face 60 06/14/18 04:00 98.4 101 27 143/71 (95) 99 06/14/18 04:00 60 06/14/18 04:00 Bi-pap 60.0 Bi-pap 60.0 Bi-pap 06/14/18 03:41 99 06/14/18 03:22 99 22 96 Bi-pap 60 06/14/18 03:12 104 24 99 Full Face 60 06/14/18 03:12 100 24 94 Bi-pap 60 06/14/18 00:44 94 26 92 Full Face 60 06/14/18 00:00 Bi-pap 60.0 Bi-pap 60.0 Bi-pap 06/14/18 00:00 98.1 93 25 145/72 (96) 97 06/13/18 23:38 94 23 94 Bi-pap 60 06/13/18 23:28 94 26 98 Full Face 60 06/13/18 23:28 9 26 94 Bi-pap 60 06/13/18 23:24 94 06/13/18 21:58 91 20 96 Full Face 60 06/13/18 21:23 94 19 92 Facial 40 06/13/18 21:04 85 22 95 Bi-pap 40 06/13/18 20:56 94 25 93 Bi-pap 40 General Appearance: no apparent distress, alert Neck: no JVD Cardiovascular: normal rate Respiratory/Chest: rhonchi - bilaterally Abdomen: normal bowel sounds, non tender, soft Extremities: no swelling Intake and Output 06/13/18 06/14/18 19:00 07:00 Intake Total 310 ml 600 ml Output Total 550 ml 450 ml Balance -240 ml 150 ml IV Total 130 ml 600 ml Tube Feeding 180 ml Output Urine Total 550 ml 450 ml Laboratory Tests Test 06/13/18 21:29 06/14/18 03:35 06/14/18 08:45 Arterial Blood pH 7.406 (7.350-7.450) 7.400 (7.350-7.450) Arterial Blood Partial Pressure CO2 58.9 mmHg (35.0-45.0) *H 55.1 mmHg (35.0-45.0) *H Arterial Blood Partial Pressure O2 48.8 mmHg (75.0-100.0) 99.2 mmHg (75.0-100.0) Arterial Blood HCO3 36.2 mmol/L (22.0-26.0) H 33.4 mmol/L (22.0-26.0) H Arterial Blood Oxygen Saturation 85.5 % (95-100) *L 97.2 % (95-100) Arterial Blood Base Excess 9.7 (-2-2) *H 7.2 (-2-2) H David Test Positive Positive White Blood Count 11.1 K/UL (4.8-10.8) H Red Blood Count 4.61 M/UL (4.20-5.40) Hemoglobin 10.6 G/DL (12.0-16.0) L Hematocrit 33.8 % (37.0-47.0) L Mean Corpuscular Volume 73 FL (80-99) L Mean Corpuscular Hemoglobin 22.9 PG (27.0-31.0) L Mean Corpuscular Hemoglobin Concent 31.3 G/DL (32.0-36.0) L Red Cell Distribution Width 18.1 % (11.6-14.8) H Platelet Count 395 K/UL (150-450) Mean Platelet Volume 8.1 FL (6.5-10.1) Neutrophils (%) (Auto) 75.9 % (45.0-75.0) H Lymphocytes (%) (Auto) 13.5 % (20.0-45.0) L Monocytes (%) (Auto) 6.6 % (1.0-10.0) Eosinophils (%) (Auto) 3.4 % (0.0-3.0) H Basophils (%) (Auto) 0.5 % (0.0-2.0) Sodium Level 149 MMOL/L (136-145) H Potassium Level 3.3 MMOL/L (3.5-5.1) L Chloride Level 108 MMOL/L (98-107) H Carbon Dioxide Level 33 MMOL/L (21-32) H Anion Gap 8 mmol/L (5-15) Blood Urea Nitrogen 49 mg/dL (7-18) H Creatinine 2.0 MG/DL (0.55-1.30) H Estimat Glomerular Filtration Rate mL/min (>60) Glucose Level 121 MG/DL (74-106) H Calcium Level 9.6 MG/DL (8.5-10.1) Total Bilirubin 0.4 MG/DL (0.2-1.0) Aspartate Amino Transf (AST/SGOT) 27 U/L (15-37) Alanine Aminotransferase (ALT/SGPT) 36 U/L (12-78) Alkaline Phosphatase 105 U/L (46-116) Total Protein 7.8 G/DL (6.4-8.2) Albumin 3.0 G/DL (3.4-5.0) L Globulin 4.8 g/dL Albumin/Globulin Ratio 0.6 (1.0-2.7) L Geoffrey Sandhu MD Jun 14, 2018 20:23
[2018-06-14] MEDS: Dyna-Hex 2% Top Sol 2oz TOPIC SCH (20:31)
[2018-06-14] MEDS: Miralax 17gm pkt ORAL SCH (20:31)
--- NOTE | 2018-06-14 20:51 | NUR ---
CASE MANAGEMENT: REVIEW SI: A-FIB . CAD . COPD T 99.1 HR 117 RR 27 BP 147/70 SAT 91% VENTURI MASK FIO2 55 WBC 11.1 H/H 10.6/33.8 NA 149 K 3.3 ABG: PH 7.400 PCO2 55.1 PO2 99.2 HCO3 33.4 IS: D5 1/2 w/KCl 20mEq IVF @60ML/HR CEFEPIME IV Q24HR PROTONIX IV QD NGT FEEDING OSMOLITE 1.5 @45ML/HR STEP DOWN UNIT STATUS DCP: PATIENT IS FROM [facility]
--- NOTE | 2018-06-14 21:12 | General Progress Note ---
Assessment/Plan Status: progressing Assessment/Plan This is an 87-year-old female admitted with chronic obstructive pulmonary disease exacerbation, right lower lobe infiltrate/pneumonia with altered mental status and acute kidney injury. The patient will be admitted to [facility] with the following medical problems. 1. Chronic obstructive pulmonary disease exacerbation and pneumonia. The patient has been seen by Pulmonary. Infectious Disease has been consulted, pancultured. IV antibiotics per ID. Continue with BiPAP and suction p.r.n. Transition to Venturi-mask when stable. 2. Acute kidney injury. We will monitor I's and O's, gentle intravenous fluids. Repeat a BMP in a.m. Consider Nephrology consult. 3. History of chronic atrial fibrillation. Continue with amiodarone. The patient is in sinus rhythm at this time. 4. History of hypertension. Continue with amlodipine and hold for systolic blood pressure less than 110. 5. Altered mental status, most likely from above conditions. We will keep n.p.o. except for medications and start IV fluids. 6. DVT prophylaxis with heparin subcutaneous and SCDs. 7. The patient is Full Code per policy. We will discuss with the family. 8. hypokalmia 9. Anemia 10. CHf acute on chronic 11. leucocytosis Plan: - now in [facility] - Bipap as tolerated - add mucomyst HHN - change Duoneb HHN to q 4 - NPO - swallow study when off Bipap - monitor BUN CRE - pt mobitiliy when more alert - decrease mainatenance IV fluids D5 1/4 NS with 20 meq kcl at 30 cc/hr - NGT feeds startred today - am labs discussed with nurse Subjective Date patient seen: Jun 14, 2018 Allergies: Coded Allergies: Mushroom (Verified Allergy, Severe, 05/28/18) MORPHINE (Unverified Allergy, Intermediate, Itching, 01/04/15) PENICILLINS (Unverified Allergy, Intermediate, Hives, 01/04/15) CELECOXIB (Verified Allergy, Mild, 01/15/09) Subjective now extubated and transfered to [facility] on , continues on Bipap, NPO Objective Last 24 Hour Vital Signs Date Time Temp Pulse Resp B/P (MAP) Pulse Ox O2 Delivery O2 Flow Rate FiO2 06/14/18 20:00 128 06/14/18 19:46 114 22 94 Venturi Mask 14.0 55 06/14/18 19:27 105 22 94 Venturi Mask 14.0 55 06/14/18 18:16 117 147/70 06/14/18 16:00 99.1 111 27 147/70 (95) 91 06/14/18 16:00 Venturi Mask 12.0 Venturi Mask 12.0 Venturi Mask 06/14/18 16:00 117 06/14/18 16:00 12.0 55 06/14/18 15:24 111 24 96 Venturi Mask 14.0 55 06/14/18 15:16 115 22 93 Venturi Mask 14.0 55 06/14/18 12:00 98.7 119 30 151/78 (102) 90 06/14/18 12:00 12.0 55 06/14/18 12:00 122 06/14/18 12:00 Bi-pap 12.0 Venturi Mask 12.0 Venturi Mask 06/14/18 10:58 107 20 93 Venturi Mask 12.0 50 06/14/18 10:52 110 26 94 Bi-pap 60 06/14/18 08:53 97 32 96 Full Face 55 06/14/18 08:33 101 151/81 06/14/18 08:00 111 06/14/18 08:00 55 06/14/18 08:00 Bi-pap Bi-pap Bi-pap 06/14/18 08:00 98.1 114 32 151/81 (104) 95 06/14/18 07:11 Bi-pap 60 06/14/18 07:11 Bi-pap 60 06/14/18 07:09 116 34 93 Full Face 60 06/14/18 04:44 100 27 94 Full Face 60 06/14/18 04:00 98.4 101 27 143/71 (95) 99 06/14/18 04:00 60 06/14/18 04:00 Bi-pap 60.0 Bi-pap 60.0 Bi-pap 06/14/18 03:41 99 06/14/18 03:22 99 22 96 Bi-pap 60 06/14/18 03:12 104 24 99 Full Face 60 06/14/18 03:12 100 24 94 Bi-pap 60 06/14/18 00:44 94 26 92 Full Face 60 06/14/18 00:00 Bi-pap 60.0 Bi-pap 60.0 Bi-pap 06/14/18 00:00 98.1 93 25 145/72 (96) 97 06/13/18 23:38 94 23 94 Bi-pap 60 06/13/18 23:28 94 26 98 Full Face 60 06/13/18 23:28 9 26 94 Bi-pap 60 06/13/18 23:24 94 06/13/18 21:58 91 20 96 Full Face 60 06/13/18 21:23 94 19 92 Facial 40 Intake and Output 06/13/18 06/14/18 19:00 07:00 Intake Total 310 ml 600 ml Output Total 550 ml 450 ml Balance -240 ml 150 ml IV Total 130 ml 600 ml Tube Feeding 180 ml Output Urine Total 550 ml 450 ml Laboratory Tests 06/13/18 21:29: Arterial Blood pH 7.406, Arterial Blood Partial Pressure CO2 58.9*H, Arterial Blood Partial Pressure O2 48.8*L, Arterial Blood HCO3 36.2H, Arterial Blood Oxygen Saturation 85.5*L, Arterial Blood Base Excess 9.7*H, David Test Positive 06/14/18 03:35: White Blood Count 11.1H, Red Blood Count 4.61, Hemoglobin 10.6L, Hematocrit 33.8L, Mean Corpuscular Volume 73L, Mean Corpuscular Hemoglobin 22.9L, Mean Corpuscular Hemoglobin Concent 31.3L, Red Cell Distribution Width 18.1H, Platelet Count 395, Mean Platelet Volume 8.1, Neutrophils (%) (Auto) 75.9H, Lymphocytes (%) (Auto) 13.5L, Monocytes (%) (Auto) 6.6, Eosinophils (%) (Auto) 3.4H, Basophils (%) (Auto) 0.5, Sodium Level 149H, Potassium Level 3.3L, Chloride Level 108H, Carbon Dioxide Level 33H, Anion Gap 8, Blood Urea Nitrogen 49H, Creatinine 2.0H, Estimat Glomerular Filtration Rate , Glucose Level 121H, Calcium Level 9.6, Total Bilirubin 0.4, Aspartate Amino Transf (AST/SGOT) 27, Alanine Aminotransferase (ALT/SGPT) 36, Alkaline Phosphatase 105, Total Protein 7.8, Albumin 3.0L, Globulin 4.8, Albumin/Globulin Ratio 0.6L 06/14/18 08:45: Arterial Blood pH 7.400, Arterial Blood Partial Pressure CO2 55.1*H, Arterial Blood Partial Pressure O2 99.2, Arterial Blood HCO3 33.4H, Arterial Blood Oxygen Saturation 97.2, Arterial Blood Base Excess 7.2H, David Test Positive Height (Feet): 5 Height (Inches): 4.00 Weight (Pounds): 120 General Appearance: no apparent distress, alert EENT: PERRL/EOMI, pharynx normal Neck: non-tender, supple Cardiovascular: normal rate, regular rhythm, no gallop/murmur, no JVD Respiratory/Chest: crackles/rales, rhonchi - bilaterally Abdomen: non tender, soft, no mass Extremities: normal range of motion Edema: no edema noted Arm (L), no edema noted Arm (R), no edema noted Leg (L), no edema noted Leg (R), no edema noted Pedal (L), no edema noted Pedal (R), no edema noted 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
[2018-06-14] MEDS: D5 1/4NS w/KCl 20mEq 1,000 ML IV SCH (21:26)
[2018-06-15] VITALS: BP 146/80
[2018-06-15] MEDS: Albuterol/Ipratropium 3ml neb HHN PRN ×6 (00:23→23:14)
[2018-06-15] MEDS: Acetylcysteine 20% Soln 4ml HHN SCH ×7 (00:23→23:14)
[2018-06-15 04:00] VITALS: BP 160/70
[2018-06-15 05:40] LABS: HEMATOCRIT 37.4 % (37.0-47.0); HEMOGLOBIN 11.4 G/DL (12.0-16.0); MEAN CORPUSCULAR VOLUME 75 FL (80-99); PLATELET COUNT 443 K/UL (150-450); RED BLOOD COUNT 5.01 M/UL (4.20-5.40); RED CELL DISTRIBUTION WIDTH 18.1 % (11.6-14.8); WHITE BLOOD COUNT 16.6 K/UL (4.8-10.8)
[2018-06-15 06:14] LABS: ANION GAP 10 mmol/L (5-15); BLOOD UREA NITROGEN 41 mg/dL (7-18); CALCIUM 9.5 MG/DL (8.5-10.1); CARBON DIOXIDE 30 MMOL/L (21-32); CHLORIDE 105 MMOL/L (98-107); CREATININE 1.9 MG/DL (0.55-1.30); POTASSIUM 3.5 MMOL/L (3.5-5.1); SODIUM 145 MMOL/L (136-145)
--- NOTE | 2018-06-15 07:00 | NUR ---
RESPIRATORY NOTE: Received on BIPAP full face mask, tape in place, skin intact, settings: 15/5, PS:10, back up rate: 16, Fio2: 60%. Will continue to monitor
--- NOTE | 2018-06-15 07:18 | NUR ---
HAND-OFF: Report given to MARGY Paz.
--- NOTE | 2018-06-15 07:30 | NUR ---
NURSE NOTES: Report received from MARGY Chisholm. Observed patient in bed sleeping. Open eyes by shaking. On BIPAP with previous setting with no acute distress noted. NGT intact and patent. Tube feeding is on hold due to BIPAP use. PICC line intact and patent with ongoing IVF running at prescribed rate. F/C intact and draining well. Bed in lowest position. Call light within reach. Will continue to monitor.
[2018-06-15 07:54] VITALS: BP 143/83
[2018-06-15] MEDS: Amiodarone 200mg tab ORAL SCH (08:39)
[2018-06-15] MEDS: Cefepime HCl 1 GM in D5W 55 ML IV SCH (08:39)
[2018-06-15] MEDS: Pantoprazole Inj IV SCH (08:39)
[2018-06-15] MEDS: Heparin 5000 units/ml inj SUBQ SCH ×2 (08:41→21:05)
--- NOTE | 2018-06-15 09:19 | NUR ---
NURSE NOTES: Informed Dr. Hernandes regarding elevated WBC in this morning from 11.1 to 16.6. Doctor said she will review later. No new order at this time.
--- NOTE | 2018-06-15 10:01 | NUR ---
RADIOLOGY DEPT CHEST X-RAY DONE.-P.DYE
--- NOTE | 2018-06-15 10:26 | Diagnostic Imaging Report ---
Indication: Dyspnea Technique: One view of the chest Comparison: 06/14/2018 Findings: There is increasing opacification of the right hemithorax. Stable satisfactory positions of nasogastric tube and right arm PICC. Left lung and pleural space remains clear. The heart remains enlarged Impression: Increasing opacification right hemithorax, likely reflecting increasing pleural fluid but may also reflect increasing pulmonary parenchymal consolidation Other stable findings as described
--- NOTE | 2018-06-15 10:57 | GI Progress Note ---
Assessment/Plan Problems: (1) Severe malnutrition ICD Codes: E43 - Unspecified severe protein-calorie malnutrition SNOMED: 09956453 (2) Dementia ICD Codes: F03.90 - Unspecified dementia without behavioral disturbance SNOMED: 97378030 (3) Confused ICD Codes: R41.0 - Disorientation, unspecified SNOMED: 052937981 (4) Encounter for PEG (percutaneous endoscopic gastrostomy) ICD Codes: Z43.1 - Encounter for attention to gastrostomy SNOMED: 251141111, 657529899 (5) Failure to thrive SNOMED: 67944322 (6) Acute encephalopathy ICD Codes: G93.40 - Encephalopathy, unspecified SNOMED: 2743814 Status: not improved, unchanged Status Narrative Discussed with Dr. Acevedo Assessment/Plan Assessment - Resp failure - NGT dependent - COPD - CHF - PNA - Anemia - Poor prognosis -No plans for tracheostomy as of yet, patient has failed weening multiple times. Now on BiPAP. Recommendations - NGT feeds, discussed with family regarding PEG placement. >> family refusing at this time - Vent care - Elevated HOB at all times - Monitor residuals - Abx - Pulmonary toilet -Follow labs The patient was seen and examined at bedside and all new and available data was reviewed in the patients chart. I agree with the above findings, impression and plan. (Patient seen earlier today. Signature stamp does not reflect patient encounter time.). - Jacobo Acevedo MD Subjective Subjective Limited Objective Last 24 Hour Vital Signs Date Time Temp Pulse Resp B/P (MAP) Pulse Ox O2 Delivery O2 Flow Rate FiO2 06/15/18 09:10 103 24 96 Bi-pap 60 06/15/18 09:03 111 19 97 Full Face 60 06/15/18 08:59 119 22 96 Bi-pap 60 06/15/18 08:39 110 143/83 06/15/18 08:00 55 06/15/18 08:00 116 06/15/18 08:00 Bi-pap Bi-pap Bi-pap 06/15/18 07:54 98.8 110 21 143/83 (103) 95 06/15/18 07:10 109 20 96 Full Face 60 06/15/18 05:10 120 24 94 Full Face 55 06/15/18 04:42 Bi-pap 60 06/15/18 04:39 116 25 92 Bi-pap 60 06/15/18 04:00 Bi-pap 60.0 Bi-pap 15.0 Venturi Mask 06/15/18 04:00 98.8 122 21 160/70 (100) 95 06/15/18 04:00 55 06/15/18 03:24 122 06/15/18 03:05 124 26 93 Full Face 55 06/15/18 01:26 112 28 93 Full Face 55 06/15/18 01:00 108 22 97 Venturi Mask 14.0 55 06/15/18 00:23 106 22 93 Venturi Mask 14.0 55 06/15/18 00:00 98.6 120 32 146/80 (102) 92 06/15/18 00:00 Bi-pap 60.0 Bi-pap 15.0 Venturi Mask 06/14/18 23:26 120 06/14/18 20:00 15.0 55 06/14/18 20:00 128 06/14/18 20:00 Bi-pap 60.0 Bi-pap 15.0 Venturi Mask 06/14/18 20:00 99.1 119 28 146/65 (92) 92 06/14/18 19:53 99.1 06/14/18 19:46 114 22 94 Venturi Mask 14.0 55 06/14/18 19:27 105 22 94 Venturi Mask 14.0 55 06/14/18 18:16 117 147/70 06/14/18 16:00 99.1 111 27 147/70 (95) 91 06/14/18 16:00 Venturi Mask 12.0 Venturi Mask 12.0 Venturi Mask 06/14/18 16:00 117 06/14/18 16:00 12.0 55 06/14/18 15:24 111 24 96 Venturi Mask 14.0 55 06/14/18 15:16 115 22 93 Venturi Mask 14.0 55 06/14/18 12:00 98.7 119 30 151/78 (102) 90 06/14/18 12:00 12.0 55 06/14/18 12:00 122 06/14/18 12:00 Bi-pap 12.0 Venturi Mask 12.0 Venturi Mask 06/14/18 10:58 107 20 93 Venturi Mask 12.0 50 Intake and Output 06/14/18 06/15/18 19:00 07:00 Intake Total 1000.000 ml 745 ml Output Total 750 ml 500 ml Balance 250.000 ml 245 ml Free Water 50 ml 100 ml IV Total 810.000 ml 405 ml Tube Feeding 140 ml 240 ml Output Urine Total 750 ml 500 ml # Bowel Movements 2 Laboratory Tests Test 06/15/18 03:00 White Blood Count 16.6 K/UL (4.8-10.8) H Red Blood Count 5.01 M/UL (4.20-5.40) Hemoglobin 11.4 G/DL (12.0-16.0) L Hematocrit 37.4 % (37.0-47.0) Mean Corpuscular Volume 75 FL (80-99) L Mean Corpuscular Hemoglobin 22.7 PG (27.0-31.0) L Mean Corpuscular Hemoglobin Concent 30.4 G/DL (32.0-36.0) L Red Cell Distribution Width 18.1 % (11.6-14.8) H Platelet Count 443 K/UL (150-450) Mean Platelet Volume 7.1 FL (6.5-10.1) Neutrophils (%) (Auto) % (45.0-75.0) Lymphocytes (%) (Auto) % (20.0-45.0) Monocytes (%) (Auto) % (1.0-10.0) Eosinophils (%) (Auto) % (0.0-3.0) Basophils (%) (Auto) % (0.0-2.0) Differential Total Cells Counted 100 Neutrophils % (Manual) 86 % (45-75) H Lymphocytes % (Manual) 4 % (20-45) L Monocytes % (Manual) 8 % (1-10) Eosinophils % (Manual) 2 % (0-3) Basophils % (Manual) 0 % (0-2) Band Neutrophils 0 % (0-8) Platelet Estimate Adequate Platelet Morphology Normal Hypochromasia 1+ Anisocytosis 1+ Microcytosis 1+ Sodium Level 145 MMOL/L (136-145) Potassium Level 3.5 MMOL/L (3.5-5.1) Chloride Level 105 MMOL/L (98-107) Carbon Dioxide Level 30 MMOL/L (21-32) Anion Gap 10 mmol/L (5-15) Blood Urea Nitrogen 41 mg/dL (7-18) H Creatinine 1.9 MG/DL (0.55-1.30) H Estimat Glomerular Filtration Rate mL/min (>60) Glucose Level 136 MG/DL (74-106) H Calcium Level 9.5 MG/DL (8.5-10.1) Pro-B-Type Natriuretic Peptide 2721 pg/mL (0-125) H Height (Feet): 5 Height (Inches): 4.00 Weight (Pounds): 127 General Appearance: lethargic Cardiovascular: normal rate, other - On BiPAP Alber Rodriguez NP Jun 15, 2018 10:57
--- NOTE | 2018-06-15 11:30 | NUR ---
RESPIRATORY NOTE: Patient put on Venturi mask 55% @1100, but did not tolerate it, patients HR increased and Saturation dropped, Notified RN [facility], put patient back on BIPAP 15/5, FiO2: 60%, back up rate of 16. Patient is on full face mask, tape in place. will continue to monitor.
[2018-06-15 11:47] VITALS: BP 140/77
--- NOTE | 2018-06-15 12:06 | General Progress Note ---
Assessment/Plan Problem List: (1) encephalopathy due to toxin (2) Dementia ICD Codes: F03.90 - Unspecified dementia without behavioral disturbance SNOMED: 93107917 Assessment/Plan Haldol Im on board Seroquel 25mg q 6hr prn cont restraints. Subjective Neurologic/Psychiatric: Reports: anxiety Allergies: Coded Allergies: Mushroom (Verified Allergy, Severe, 05/28/18) MORPHINE (Unverified Allergy, Intermediate, Itching, 01/04/15) PENICILLINS (Unverified Allergy, Intermediate, Hives, 01/04/15) CELECOXIB (Verified Allergy, Mild, 01/15/09) Subjective no changes confused agitated Objective Last 24 Hour Vital Signs Date Time Temp Pulse Resp B/P (MAP) Pulse Ox O2 Delivery O2 Flow Rate FiO2 06/15/18 11:47 100.9 104 35 140/77 (98) 96 06/15/18 09:10 103 24 96 Bi-pap 60 06/15/18 09:03 111 19 97 Full Face 60 06/15/18 08:59 119 22 96 Bi-pap 60 06/15/18 08:39 110 143/83 06/15/18 08:00 55 06/15/18 08:00 116 06/15/18 08:00 Bi-pap Bi-pap Bi-pap 06/15/18 07:54 98.8 110 21 143/83 (103) 95 06/15/18 07:10 109 20 96 Full Face 60 06/15/18 05:10 120 24 94 Full Face 55 06/15/18 04:42 Bi-pap 60 06/15/18 04:39 116 25 92 Bi-pap 60 06/15/18 04:00 Bi-pap 60.0 Bi-pap 15.0 Venturi Mask 06/15/18 04:00 98.8 122 21 160/70 (100) 95 06/15/18 04:00 55 06/15/18 03:24 122 06/15/18 03:05 124 26 93 Full Face 55 06/15/18 01:26 112 28 93 Full Face 55 06/15/18 01:00 108 22 97 Venturi Mask 14.0 55 06/15/18 00:23 106 22 93 Venturi Mask 14.0 55 06/15/18 00:00 98.6 120 32 146/80 (102) 92 06/15/18 00:00 Bi-pap 60.0 Bi-pap 15.0 Venturi Mask 06/14/18 23:26 120 06/14/18 20:00 15.0 55 06/14/18 20:00 128 06/14/18 20:00 Bi-pap 60.0 Bi-pap 15.0 Venturi Mask 06/14/18 20:00 99.1 119 28 146/65 (92) 92 06/14/18 19:53 99.1 06/14/18 19:46 114 22 94 Venturi Mask 14.0 55 06/14/18 19:27 105 22 94 Venturi Mask 14.0 55 06/14/18 18:16 117 147/70 06/14/18 16:00 99.1 111 27 147/70 (95) 91 06/14/18 16:00 Venturi Mask 12.0 Venturi Mask 12.0 Venturi Mask 06/14/18 16:00 117 06/14/18 16:00 12.0 55 06/14/18 15:24 111 24 96 Venturi Mask 14.0 55 06/14/18 15:16 115 22 93 Venturi Mask 14.0 55 Intake and Output 06/14/18 06/15/18 19:00 07:00 Intake Total 1000.000 ml 745 ml Output Total 750 ml 500 ml Balance 250.000 ml 245 ml Free Water 50 ml 100 ml IV Total 810.000 ml 405 ml Tube Feeding 140 ml 240 ml Output Urine Total 750 ml 500 ml # Bowel Movements 2 Laboratory Tests 06/15/18 03:00: White Blood Count 16.6H, Red Blood Count 5.01, Hemoglobin 11.4L, Hematocrit 37.4 , Mean Corpuscular Volume 75L, Mean Corpuscular Hemoglobin 22.7L, Mean Corpuscular Hemoglobin Concent 30.4L, Red Cell Distribution Width 18.1H, Platelet Count 443, Mean Platelet Volume 7.1, Neutrophils (%) (Auto) , Lymphocytes (%) (Auto) , Monocytes (%) (Auto) , Eosinophils (%) (Auto) , Basophils (%) (Auto) , Differential Total Cells Counted 100, Neutrophils % ( Manual) 86H, Lymphocytes % (Manual) 4L, Monocytes % (Manual) 8, Eosinophils % ( Manual) 2, Basophils % (Manual) 0, Band Neutrophils 0, Platelet Estimate Adequate, Platelet Morphology Normal, Hypochromasia 1+, Anisocytosis 1+, Microcytosis 1+, Sodium Level 145, Potassium Level 3.5, Chloride Level 105, Carbon Dioxide Level 30, Anion Gap 10, Blood Urea Nitrogen 41H, Creatinine 1.9H , Estimat Glomerular Filtration Rate , Glucose Level 136H, Calcium Level 9.5, Pro-B-Type Natriuretic Peptide 2721H Height (Feet): 5 Height (Inches): 4.00 Weight (Pounds): 127 Liz Lo MD Jun 15, 2018 12:06
--- NOTE | 2018-06-15 13:44 | NUR ---
[employer] SI: RESP FAILURE DYSPNEA T. 100.9 HR 104 RR 35 B/P 140/77 BIPAP FIO2 60% WBC 16.6 BUN 41 CR 1.9 BNP 2721 IS: IVF D5KCL @ 50ML/HR CEFEPIME IV VANCO IV PROTONIX IV HEPARIN SUBC STEP DOWN STATUS
--- NOTE | 2018-06-15 13:53 | Nephrology Progress Note ---
Assessment/Plan Problem List: (1) Acute renal failure (2) Urinary outflow obstruction Assessment: resolved after grewal (3) Acute respiratory failure (4) Dementia (5) Afib Assessment Urinary out let obstruction, relieved after grewal Normal serum Cr Anemia, Low MCV High Ca corrected for low ALbumin other conditions: (1) Acute respiratory failure (2) Aspiration pneumonia (3) Acute encephalopathy (4) Pleural effusion (5) COPD (chronic obstructive pulmonary disease) (6) CAD (coronary artery disease) (7) Dementia Plan extubated now- on BIPAP struggling DC Lasix Fluid challenge K and Phos and Mag as needed slow Hydrate Anemia porter Adjust BP meds fu Lytes Gastric support pulm support- not tolerating bipap consider tube feeding ( PEG) as po is POOR Subjective ROS Limited/Unobtainable: Yes Objective Objective Last 24 Hour Vital Signs Date Time Temp Pulse Resp B/P (MAP) Pulse Ox O2 Delivery O2 Flow Rate FiO2 06/15/18 13:14 106 28 95 Full Face 60 06/15/18 12:59 100.0 06/15/18 12:43 104 28 95 Bi-pap 60 06/15/18 12:32 92 22 95 Bi-pap 60 06/15/18 12:00 Bi-pap Bi-pap Bi-pap 06/15/18 12:00 60 06/15/18 11:47 100.9 104 35 140/77 (98) 96 06/15/18 09:10 103 24 96 Bi-pap 60 06/15/18 09:03 111 19 97 Full Face 60 06/15/18 08:59 119 22 96 Bi-pap 60 06/15/18 08:39 110 143/83 06/15/18 08:00 55 06/15/18 08:00 116 06/15/18 08:00 Bi-pap Bi-pap Bi-pap 06/15/18 07:54 98.8 110 21 143/83 (103) 95 06/15/18 07:10 109 20 96 Full Face 60 06/15/18 05:10 120 24 94 Full Face 55 06/15/18 04:42 Bi-pap 60 06/15/18 04:39 116 25 92 Bi-pap 60 06/15/18 04:00 Bi-pap 60.0 Bi-pap 15.0 Venturi Mask 06/15/18 04:00 98.8 122 21 160/70 (100) 95 06/15/18 04:00 55 06/15/18 03:24 122 06/15/18 03:05 124 26 93 Full Face 55 06/15/18 01:26 112 28 93 Full Face 55 06/15/18 01:00 108 22 97 Venturi Mask 14.0 55 06/15/18 00:23 106 22 93 Venturi Mask 14.0 55 06/15/18 00:00 98.6 120 32 146/80 (102) 92 06/15/18 00:00 Bi-pap 60.0 Bi-pap 15.0 Venturi Mask 06/14/18 23:26 120 06/14/18 20:00 15.0 55 06/14/18 20:00 128 06/14/18 20:00 Bi-pap 60.0 Bi-pap 15.0 Venturi Mask 06/14/18 20:00 99.1 119 28 146/65 (92) 92 06/14/18 19:46 114 22 94 Venturi Mask 14.0 55 06/14/18 19:27 105 22 94 Venturi Mask 14.0 55 06/14/18 18:16 117 147/70 06/14/18 16:00 99.1 111 27 147/70 (95) 91 06/14/18 16:00 Venturi Mask 12.0 Venturi Mask 12.0 Venturi Mask 06/14/18 16:00 117 06/14/18 16:00 12.0 55 06/14/18 15:24 111 24 96 Venturi Mask 14.0 55 06/14/18 15:16 115 22 93 Venturi Mask 14.0 55 Intake and Output 06/14/18 06/15/18 19:00 07:00 Intake Total 1000.000 ml 745 ml Output Total 750 ml 500 ml Balance 250.000 ml 245 ml Free Water 50 ml 100 ml IV Total 810.000 ml 405 ml Tube Feeding 140 ml 240 ml Output Urine Total 750 ml 500 ml # Bowel Movements 2 Laboratory Tests 06/15/18 03:00: White Blood Count 16.6H, Red Blood Count 5.01, Hemoglobin 11.4L, Hematocrit 37.4 , Mean Corpuscular Volume 75L, Mean Corpuscular Hemoglobin 22.7L, Mean Corpuscular Hemoglobin Concent 30.4L, Red Cell Distribution Width 18.1H, Platelet Count 443, Mean Platelet Volume 7.1, Neutrophils (%) (Auto) , Lymphocytes (%) (Auto) , Monocytes (%) (Auto) , Eosinophils (%) (Auto) , Basophils (%) (Auto) , Differential Total Cells Counted 100, Neutrophils % ( Manual) 86H, Lymphocytes % (Manual) 4L, Monocytes % (Manual) 8, Eosinophils % ( Manual) 2, Basophils % (Manual) 0, Band Neutrophils 0, Platelet Estimate Adequate, Platelet Morphology Normal, Hypochromasia 1+, Anisocytosis 1+, Microcytosis 1+, Sodium Level 145, Potassium Level 3.5, Chloride Level 105, Carbon Dioxide Level 30, Anion Gap 10, Blood Urea Nitrogen 41H, Creatinine 1.9H , Estimat Glomerular Filtration Rate , Glucose Level 136H, Calcium Level 9.5, Pro-B-Type Natriuretic Peptide 2721H Height (Feet): 5 Height (Inches): 4.00 Weight (Pounds): 127 General Appearance: mild distress EENT: other - BIPAP Cardiovascular: tachycardia Respiratory/Chest: decreased breath sounds Abdomen: distended Objective no change Kendrick Jimenez MD Jun 15, 2018 13:53
--- NOTE | 2018-06-15 14:01 | Pulmonology Progress Note ---
Assessment/Plan Assessment/Plan Problem List: 1. Acute on chronic hypercapnic respiratory failure 2. R lung collapse, possibly mucous plugging - recurred 3. Pulmonary edema 4. chronic obstructive asthma 5. Pneumonia 6. Hx afib 7. MRSA pna, recurrent fever and increased leukocytosis Plan: -BiPAP 15/5 continuous, will likely need intubation given her worsened R lung plugging -advised patient's son who wants to talk to rest of family and think about it. Other option would be to not escalate -aggressive pulmonary hygiene with duonebs/mucomyst/suctioning q4 -chest PT R lung -monitor volumes -monitor renal function -abx per ID, reculture Time: 100 min case d/w RN Subjective ROS Limited/Unobtainable: Yes Interval Events: fever, increased leukocytosis, not tolerating off BiPAP. CXR mucous plug R Allergies: Coded Allergies: Mushroom (Verified Allergy, Severe, 05/28/18) MORPHINE (Unverified Allergy, Intermediate, Itching, 01/04/15) PENICILLINS (Unverified Allergy, Intermediate, Hives, 01/04/15) CELECOXIB (Verified Allergy, Mild, 01/15/09) Objective Last 24 Hour Vital Signs Date Time Temp Pulse Resp B/P (MAP) Pulse Ox O2 Delivery O2 Flow Rate FiO2 06/15/18 13:14 106 28 95 Full Face 60 06/15/18 12:59 100.0 06/15/18 12:43 104 28 95 Bi-pap 60 06/15/18 12:32 92 22 95 Bi-pap 60 06/15/18 12:00 Bi-pap Bi-pap Bi-pap 06/15/18 12:00 60 06/15/18 11:47 100.9 104 35 140/77 (98) 96 06/15/18 09:10 103 24 96 Bi-pap 60 06/15/18 09:03 111 19 97 Full Face 60 06/15/18 08:59 119 22 96 Bi-pap 60 06/15/18 08:39 110 143/83 06/15/18 08:00 55 06/15/18 08:00 116 06/15/18 08:00 Bi-pap Bi-pap Bi-pap 06/15/18 07:54 98.8 110 21 143/83 (103) 95 06/15/18 07:10 109 20 96 Full Face 60 06/15/18 05:10 120 24 94 Full Face 55 06/15/18 04:42 Bi-pap 60 06/15/18 04:39 116 25 92 Bi-pap 60 06/15/18 04:00 Bi-pap 60.0 Bi-pap 15.0 Venturi Mask 06/15/18 04:00 98.8 122 21 160/70 (100) 95 06/15/18 04:00 55 06/15/18 03:24 122 06/15/18 03:05 124 26 93 Full Face 55 06/15/18 01:26 112 28 93 Full Face 55 06/15/18 01:00 108 22 97 Venturi Mask 14.0 55 06/15/18 00:23 106 22 93 Venturi Mask 14.0 55 06/15/18 00:00 98.6 120 32 146/80 (102) 92 06/15/18 00:00 Bi-pap 60.0 Bi-pap 15.0 Venturi Mask 06/14/18 23:26 120 06/14/18 20:00 15.0 55 06/14/18 20:00 128 06/14/18 20:00 Bi-pap 60.0 Bi-pap 15.0 Venturi Mask 06/14/18 20:00 99.1 119 28 146/65 (92) 92 06/14/18 19:46 114 22 94 Venturi Mask 14.0 55 06/14/18 19:27 105 22 94 Venturi Mask 14.0 55 06/14/18 18:16 117 147/70 06/14/18 16:00 99.1 111 27 147/70 (95) 91 06/14/18 16:00 Venturi Mask 12.0 Venturi Mask 12.0 Venturi Mask 06/14/18 16:00 117 06/14/18 16:00 12.0 55 06/14/18 15:24 111 24 96 Venturi Mask 14.0 55 06/14/18 15:16 115 22 93 Venturi Mask 14.0 55 Intake and Output 06/14/18 06/15/18 19:00 07:00 Intake Total 1000.000 ml 745 ml Output Total 750 ml 500 ml Balance 250.000 ml 245 ml Free Water 50 ml 100 ml IV Total 810.000 ml 405 ml Tube Feeding 140 ml 240 ml Output Urine Total 750 ml 500 ml # Bowel Movements 2 General Appearance: other - on BiPAP HEENT: normocephalic, atraumatic Respiratory/Chest: other - Diminished on right Cardiovascular: normal rate, regular rhythm Abdomen: soft, non tender Extremities: no edema Neurologic/Psychiatric: disoriented Laboratory Tests 06/15/18 03:00: White Blood Count 16.6H, Red Blood Count 5.01, Hemoglobin 11.4L, Hematocrit 37.4 , Mean Corpuscular Volume 75L, Mean Corpuscular Hemoglobin 22.7L, Mean Corpuscular Hemoglobin Concent 30.4L, Red Cell Distribution Width 18.1H, Platelet Count 443, Mean Platelet Volume 7.1, Neutrophils (%) (Auto) , Lymphocytes (%) (Auto) , Monocytes (%) (Auto) , Eosinophils (%) (Auto) , Basophils (%) (Auto) , Differential Total Cells Counted 100, Neutrophils % ( Manual) 86H, Lymphocytes % (Manual) 4L, Monocytes % (Manual) 8, Eosinophils % ( Manual) 2, Basophils % (Manual) 0, Band Neutrophils 0, Platelet Estimate Adequate, Platelet Morphology Normal, Hypochromasia 1+, Anisocytosis 1+, Microcytosis 1+, Sodium Level 145, Potassium Level 3.5, Chloride Level 105, Carbon Dioxide Level 30, Anion Gap 10, Blood Urea Nitrogen 41H, Creatinine 1.9H , Estimat Glomerular Filtration Rate , Glucose Level 136H, Calcium Level 9.5, Pro-B-Type Natriuretic Peptide 2721H Current Medications Medications (Trade) Dose Ordered Sig/Ann Route PRN Reason Start Time Stop Time Status Last Admin Dose Admin Acetaminophen (Tylenol) 650 mg Q4H PRN ORAL Mild Pain/Temp > 100.5 06/12/18 18:00 06/27/18 17:59 06/15/18 11:48 Acetylcysteine (Mucomyst) 100 mg Q4HRT HHN 06/12/18 19:00 07/09/18 21:29 06/15/18 12:31 Albuterol/ Ipratropium (Albuterol/ Ipratropium) 3 ml Q4H PRN HHN Shortness of Breath 06/14/18 23:45 06/19/18 23:44 06/15/18 12:31 Amiodarone HCl (Cordarone) 100 mg DAILY ORAL 06/13/18 09:00 06/30/18 08:59 06/15/18 08:39 Amlodipine Besylate (Norvasc) 5 mg BID ORAL 06/12/18 18:00 06/27/18 08:59 06/15/18 08:39 Cefepime HCl 1 gm/ Dextrose 55 ml @ 110 mls/hr Q24H IV 06/13/18 09:00 06/17/18 23:59 06/15/18 08:39 Chlorhexidine Gluconate (Myra-Hex 2%) 1 applic DAILY@2000 TOPIC 06/12/18 20:00 07/02/18 19:59 06/14/18 20:31 Dextrose/ Electrolytes 1,000 ml @ 30 mls/hr Q24H IV 06/14/18 21:17 07/14/18 21:16 06/14/18 21:26 Haloperidol Lactate (Haldol) 5 mg Q6H PRN IM Agitation 06/12/18 18:15 07/08/18 12:14 Heparin Sodium (Porcine) (Heparin 5000 units/ml) 5,000 units EVERY 12 HOURS SUBQ 06/12/18 21:00 06/27/18 08:59 06/15/18 08:41 Lorazepam (Ativan 2mg/ml 1ml) 0.5 mg Q3H PRN IV For Anxiety 06/12/18 18:15 06/18/18 15:11 Nitroglycerin (Ntg) 0.4 mg Q5M PRN SL Prn Chest Pain 06/12/18 17:45 06/27/18 13:29 Ondansetron HCl (Zofran) 4 mg Q6H PRN IVP Nausea & Vomiting 06/12/18 18:00 06/27/18 17:59 Pantoprazole (Protonix) 40 mg DAILY IV 06/13/18 09:00 07/03/18 08:59 06/15/18 08:39 Polyethylene Glycol (Miralax) 17 gm BEDTIME ORAL 06/12/18 21:00 07/06/18 20:59 06/14/18 20:31 Polyethylene Glycol (Miralax) 17 gm DAILYPRN PRN ORAL Constipation 06/12/18 18:00 07/12/18 17:59 Quetiapine Fumarate (SEROquel) 25 mg Q6H PRN ORAL For Anxiety 06/12/18 18:00 06/29/18 17:59 Vancomycin HCl (Vanco rx to dose) 1 ea DAILY PRN MISC Per rx protocol 06/12/18 18:00 07/12/18 17:59 Vancomycin HCl 750 mg/Sodium Chloride 275 ml @ 183.333 mls/hr Q48H IVPB 06/12/18 16:00 06/17/18 15:59 06/14/18 16:33 Varinder De Souza MD Jun 15, 2018 14:01
--- NOTE | 2018-06-15 15:56 | Infectious Diseases Prog Note ---
Assessment/Plan Assessment/Plan 87 yo feamle with PMHx of COPD, HTN, and A.fib sent to the ED from her nuring home for SOB. Sepsis - Likely PNA 06/15 CXR: Increasing opacification right hemithorax, likely reflecting increasing pleural fluid but may also reflect increasing pulmonary parenchymal consolidation 06/14 CXR: Diffuse right lung hazy opacity appears similar to the prior exam. 06/12 CXR: : Hazy opacification of the right hemithorax, likely reflecting pleural fluid, is unchanged. 05/28/18 CXR with atalectasis vs consolidation in the right side. 06/01/18 CXR - Extensive right hemithorax opacification UA (-) Sputum Cx 05/28/18 - MRSA (Inf Neg) Urine legionella (-) Positive blood Cx - Likely contaminant BCx 05/28/18 - CoNS BCX 05/30/18 - NGTD Leukocytosis 15 on admit - now recurrent mild leukocytosis Febrile to 101.5 - now resolved COPD CAD A. fib Extubated 06/11/18 PLAN - Continue Cefepime # and vancomycin # - Monitor CBC and Temps -Repaeat cultures, Cdiff -CBC, CMP am We will continue to follow Ms. Nowak during this hospitalization. Subjective Allergies: Coded Allergies: Mushroom (Verified Allergy, Severe, 05/28/18) MORPHINE (Unverified Allergy, Intermediate, Itching, 01/04/15) PENICILLINS (Unverified Allergy, Intermediate, Hives, 01/04/15) CELECOXIB (Verified Allergy, Mild, 01/15/09) Subjective Tm 100.9 wbc increased remains on bipap Objective Vital Signs Last 24 Hour Vital Signs Date Time Temp Pulse Resp B/P (MAP) Pulse Ox O2 Delivery O2 Flow Rate FiO2 06/15/18 15:32 86 28 97 Bi-pap 60 06/15/18 13:14 106 28 95 Full Face 60 06/15/18 12:59 100.0 06/15/18 12:43 104 28 95 Bi-pap 60 06/15/18 12:32 92 22 95 Bi-pap 60 06/15/18 12:00 Bi-pap Bi-pap Bi-pap 06/15/18 12:00 144 06/15/18 12:00 60 06/15/18 11:47 100.9 104 35 140/77 (98) 96 2/13/19 09:10 103 24 96 Bi-pap 60 06/15/18 09:03 111 19 97 Full Face 60 06/15/18 08:59 119 22 96 Bi-pap 60 06/15/18 08:39 110 143/83 06/15/18 08:00 55 06/15/18 08:00 116 06/15/18 08:00 Bi-pap Bi-pap Bi-pap 06/15/18 07:54 98.8 110 21 143/83 (103) 95 06/15/18 07:10 109 20 96 Full Face 60 06/15/18 05:10 120 24 94 Full Face 55 06/15/18 04:42 Bi-pap 60 06/15/18 04:39 116 25 92 Bi-pap 60 06/15/18 04:00 Bi-pap 60.0 Bi-pap 15.0 Venturi Mask 06/15/18 04:00 98.8 122 21 160/70 (100) 95 06/15/18 04:00 55 06/15/18 03:24 122 06/15/18 03:05 124 26 93 Full Face 55 06/15/18 01:26 112 28 93 Full Face 55 06/15/18 01:00 108 22 97 Venturi Mask 14.0 55 06/15/18 00:23 106 22 93 Venturi Mask 14.0 55 06/15/18 00:00 98.6 120 32 146/80 (102) 92 06/15/18 00:00 Bi-pap 60.0 Bi-pap 15.0 Venturi Mask 06/14/18 23:26 120 06/14/18 20:00 15.0 55 06/14/18 20:00 128 06/14/18 20:00 Bi-pap 60.0 Bi-pap 15.0 Venturi Mask 06/14/18 20:00 99.1 119 28 146/65 (92) 92 06/14/18 19:46 114 22 94 Venturi Mask 14.0 55 06/14/18 19:27 105 22 94 Venturi Mask 14.0 55 06/14/18 18:16 117 147/70 06/14/18 16:00 99.1 111 27 147/70 (95) 91 06/14/18 16:00 Venturi Mask 12.0 Venturi Mask 12.0 Venturi Mask 06/14/18 16:00 117 06/14/18 16:00 12.0 55 Height (Feet): 5 Height (Inches): 4.00 Weight (Pounds): 127 Objective General Appearance: no apparent distress, other - on bipap Neck: supple Cardiovascular: normal rate Respiratory/Chest: lungs clear Abdomen: normal bowel sounds, non tender, soft Extremities: trace edema Laboratory Tests Test 06/15/18 03:00 06/15/18 14:08 White Blood Count 16.6 K/UL (4.8-10.8) H Red Blood Count 5.01 M/UL (4.20-5.40) Hemoglobin 11.4 G/DL (12.0-16.0) L Hematocrit 37.4 % (37.0-47.0) Mean Corpuscular Volume 75 FL (80-99) L Mean Corpuscular Hemoglobin 22.7 PG (27.0-31.0) L Mean Corpuscular Hemoglobin Concent 30.4 G/DL (32.0-36.0) L Red Cell Distribution Width 18.1 % (11.6-14.8) H Platelet Count 443 K/UL (150-450) Mean Platelet Volume 7.1 FL (6.5-10.1) Neutrophils (%) (Auto) % (45.0-75.0) Lymphocytes (%) (Auto) % (20.0-45.0) Monocytes (%) (Auto) % (1.0-10.0) Eosinophils (%) (Auto) % (0.0-3.0) Basophils (%) (Auto) % (0.0-2.0) Differential Total Cells Counted 100 Neutrophils % (Manual) 86 % (45-75) H Lymphocytes % (Manual) 4 % (20-45) L Monocytes % (Manual) 8 % (1-10) Eosinophils % (Manual) 2 % (0-3) Basophils % (Manual) 0 % (0-2) Band Neutrophils 0 % (0-8) Platelet Estimate Adequate Platelet Morphology Normal Hypochromasia 1+ Anisocytosis 1+ Microcytosis 1+ Sodium Level 145 MMOL/L (136-145) Potassium Level 3.5 MMOL/L (3.5-5.1) Chloride Level 105 MMOL/L (98-107) Carbon Dioxide Level 30 MMOL/L (21-32) Anion Gap 10 mmol/L (5-15) Blood Urea Nitrogen 41 mg/dL (7-18) H Creatinine 1.9 MG/DL (0.55-1.30) H Estimat Glomerular Filtration Rate mL/min (>60) Glucose Level 136 MG/DL (74-106) H Calcium Level 9.5 MG/DL (8.5-10.1) Pro-B-Type Natriuretic Peptide 2721 pg/mL (0-125) H Arterial Blood pH 7.419 (7.350-7.450) Arterial Blood Partial Pressure CO2 51.8 mmHg (35.0-45.0) H Arterial Blood Partial Pressure O2 64.6 mmHg (75.0-100.0) L Arterial Blood HCO3 32.8 mmol/L (22.0-26.0) H Arterial Blood Oxygen Saturation 94.1 % (95-100) L Arterial Blood Base Excess 7.0 (-2-2) H David Test Positive Current Medications Medications (Trade) Dose Ordered Sig/Ann Route PRN Reason Start Time Stop Time Status Last Admin Dose Admin Acetaminophen (Tylenol) 650 mg Q4H PRN ORAL Mild Pain/Temp > 100.5 06/12/18 18:00 06/27/18 17:59 06/15/18 11:48 Acetylcysteine (Mucomyst) 100 mg Q4HRT HHN 06/12/18 19:00 07/09/18 21:29 06/15/18 12:31 Albuterol/ Ipratropium (Albuterol/ Ipratropium) 3 ml Q4H PRN HHN Shortness of Breath 06/14/18 23:45 06/19/18 23:44 06/15/18 12:31 Amiodarone HCl (Cordarone) 100 mg DAILY ORAL 06/13/18 09:00 06/30/18 08:59 06/15/18 08:39 Amlodipine Besylate (Norvasc) 5 mg BID ORAL 06/12/18 18:00 06/27/18 08:59 06/15/18 08:39 Cefepime HCl 1 gm/ Dextrose 55 ml @ 110 mls/hr Q24H IV 06/13/18 09:00 06/17/18 23:59 06/15/18 08:39 Chlorhexidine Gluconate (Myra-Hex 2%) 1 applic DAILY@2000 TOPIC 06/12/18 20:00 07/02/18 19:59 06/14/18 20:31 Dextrose/ Electrolytes 1,000 ml @ 30 mls/hr Q24H IV 06/14/18 21:17 07/14/18 21:16 06/14/18 21:26 Haloperidol Lactate (Haldol) 5 mg Q6H PRN IM Agitation 06/12/18 18:15 07/08/18 12:14 Heparin Sodium (Porcine) (Heparin 5000 units/ml) 5,000 units EVERY 12 HOURS SUBQ 06/12/18 21:00 06/27/18 08:59 06/15/18 08:41 Lorazepam (Ativan 2mg/ml 1ml) 0.5 mg Q3H PRN IV For Anxiety 06/12/18 18:15 06/18/18 15:11 Nitroglycerin (Ntg) 0.4 mg Q5M PRN SL Prn Chest Pain 06/12/18 17:45 06/27/18 13:29 Ondansetron HCl (Zofran) 4 mg Q6H PRN IVP Nausea & Vomiting 06/12/18 18:00 06/27/18 17:59 Pantoprazole (Protonix) 40 mg DAILY IV 06/13/18 09:00 07/03/18 08:59 06/15/18 08:39 Polyethylene Glycol (Miralax) 17 gm BEDTIME ORAL 06/12/18 21:00 07/06/18 20:59 06/14/18 20:31 Polyethylene Glycol (Miralax) 17 gm DAILYPRN PRN ORAL Constipation 06/12/18 18:00 07/12/18 17:59 Quetiapine Fumarate (SEROquel) 25 mg Q6H PRN ORAL For Anxiety 06/12/18 18:00 06/29/18 17:59 Vancomycin HCl (Vanco rx to dose) 1 ea DAILY PRN MISC Per rx protocol 06/12/18 18:00 07/12/18 17:59 Vancomycin HCl 750 mg/Sodium Chloride 275 ml @ 183.333 mls/hr Q48H IVPB 06/12/18 16:00 06/17/18 15:59 06/14/18 16:33 Natty Hernandes M.D. Jun 15, 2018 15:56
[2018-06-15 16:00] VITALS: BP 141/68
--- NOTE | 2018-06-15 18:59 | NUR ---
HAND-OFF: Report given to MARGY Chisholm. Stable condition..
--- NOTE | 2018-06-15 19:11 | NUR ---
NURSE NOTES: Received report from MARGY Paz. Patient seen in bed in lopes position with Bipap on, setting of 15/5, 60%. sp02 is at 96%. Patient is alert, verbally responsive, denies any pain at this time. PICC line to left arm noted and is intact. Sinclair cath in place and is intact, urine flowing. Noted with bilateral wrist restraints. No redness, swelling or skin breakdown noted to bilateral wrist area. Bed is in lowest position. call light is within easy reach while in bed. Will continue to monitor.
[2018-06-15 20:00] VITALS: BP 110/78
[2018-06-15 20:05] LABS: APPEARANCE,URINE CLOUDY; BILIRUBIN, URINE NEGATIVE (NEGATIVE); COLOR,URINE YELLOW; GLUCOSE, URINE (UA) NEGATIVE (NEGATIVE); KETONES,URINE NEGATIVE (NEGATIVE); LEUKOCYTE ESTERASE ,URINE 2+ (NEGATIVE); NITRITE,URINE NEGATIVE (NEGATIVE); PH,URINE 5 (4.5-8.0); PROTEIN,URINE 3+ (NEGATIVE); UROBILINOGEN,URINE NORMAL MG/DL (0.0-1.0)
--- NOTE | 2018-06-15 20:21 | Cardiology Progress Note ---
Assessment/Plan Assessment/Plan COPD, congestive heart failure, atrial fibrillation sinus tachy agitation right lung collapse? anemia pleural effusion tele sinus Subjective ROS Limited/Unobtainable: Yes Subjective on face mask Objective Last 24 Hour Vital Signs Date Time Temp Pulse Resp B/P (MAP) Pulse Ox O2 Delivery O2 Flow Rate FiO2 06/15/18 17:42 117 141/68 06/15/18 16:58 117 32 94 Full Face 60 06/15/18 16:52 92 28 94 Bi-pap 60 06/15/18 16:42 109 22 95 Bi-pap 60 06/15/18 16:00 60 06/15/18 16:00 116 06/15/18 16:00 98.9 104 35 141/68 (92) 96 06/15/18 16:00 Bi-pap Bi-pap Bi-pap 06/15/18 13:14 106 28 95 Full Face 60 06/15/18 12:59 100.0 06/15/18 12:43 104 28 95 Bi-pap 60 06/15/18 12:32 92 22 95 Bi-pap 60 06/15/18 12:00 Bi-pap Bi-pap Bi-pap 06/15/18 12:00 144 06/15/18 12:00 60 06/15/18 11:47 100.9 104 35 140/77 (98) 96 06/15/18 09:10 103 24 96 Bi-pap 60 06/15/18 09:03 111 19 97 Full Face 60 06/15/18 08:59 119 22 96 Bi-pap 60 06/15/18 08:39 110 143/83 06/15/18 08:00 55 06/15/18 08:00 116 06/15/18 08:00 Bi-pap Bi-pap Bi-pap 06/15/18 07:54 98.8 110 21 143/83 (103) 95 06/15/18 07:10 109 20 96 Full Face 60 06/15/18 05:10 120 24 94 Full Face 55 06/15/18 04:42 Bi-pap 60 06/15/18 04:39 116 25 92 Bi-pap 60 06/15/18 04:00 Bi-pap 60.0 Bi-pap 15.0 Venturi Mask 06/15/18 04:00 98.8 122 21 160/70 (100) 95 06/15/18 04:00 55 06/15/18 03:24 122 06/15/18 03:05 124 26 93 Full Face 55 06/15/18 01:26 112 28 93 Full Face 55 06/15/18 01:00 108 22 97 Venturi Mask 14.0 55 06/15/18 00:23 106 22 93 Venturi Mask 14.0 55 06/15/18 00:00 98.6 120 32 146/80 (102) 92 06/15/18 00:00 Bi-pap 60.0 Bi-pap 15.0 Venturi Mask 06/14/18 23:26 120 Intake and Output 06/14/18 06/15/18 18:59 06:59 Intake Total 970.000 ml 745 ml Output Total 750 ml 500 ml Balance 220.000 ml 245 ml Free Water 50 ml 100 ml IV Total 810.000 ml 375 ml Tube Feeding 110 ml 270 ml Output Urine Total 750 ml 500 ml # Bowel Movements 2 Laboratory Tests Test 06/15/18 03:00 06/15/18 14:08 06/15/18 17:30 White Blood Count 16.6 K/UL (4.8-10.8) H Red Blood Count 5.01 M/UL (4.20-5.40) Hemoglobin 11.4 G/DL (12.0-16.0) L Hematocrit 37.4 % (37.0-47.0) Mean Corpuscular Volume 75 FL (80-99) L Mean Corpuscular Hemoglobin 22.7 PG (27.0-31.0) L Mean Corpuscular Hemoglobin Concent 30.4 G/DL (32.0-36.0) L Red Cell Distribution Width 18.1 % (11.6-14.8) H Platelet Count 443 K/UL (150-450) Mean Platelet Volume 7.1 FL (6.5-10.1) Neutrophils (%) (Auto) % (45.0-75.0) Lymphocytes (%) (Auto) % (20.0-45.0) Monocytes (%) (Auto) % (1.0-10.0) Eosinophils (%) (Auto) % (0.0-3.0) Basophils (%) (Auto) % (0.0-2.0) Differential Total Cells Counted 100 Neutrophils % (Manual) 86 % (45-75) H Lymphocytes % (Manual) 4 % (20-45) L Monocytes % (Manual) 8 % (1-10) Eosinophils % (Manual) 2 % (0-3) Basophils % (Manual) 0 % (0-2) Band Neutrophils 0 % (0-8) Platelet Estimate Adequate Platelet Morphology Normal Hypochromasia 1+ Anisocytosis 1+ Microcytosis 1+ Sodium Level 145 MMOL/L (136-145) Potassium Level 3.5 MMOL/L (3.5-5.1) Chloride Level 105 MMOL/L (98-107) Carbon Dioxide Level 30 MMOL/L (21-32) Anion Gap 10 mmol/L (5-15) Blood Urea Nitrogen 41 mg/dL (7-18) H Creatinine 1.9 MG/DL (0.55-1.30) H Estimat Glomerular Filtration Rate mL/min (>60) Glucose Level 136 MG/DL (74-106) H Calcium Level 9.5 MG/DL (8.5-10.1) Pro-B-Type Natriuretic Peptide 2721 pg/mL (0-125) H Arterial Blood pH 7.419 (7.350-7.450) Arterial Blood Partial Pressure CO2 51.8 mmHg (35.0-45.0) H Arterial Blood Partial Pressure O2 64.6 mmHg (75.0-100.0) L Arterial Blood HCO3 32.8 mmol/L (22.0-26.0) H Arterial Blood Oxygen Saturation 94.1 % (95-100) L Arterial Blood Base Excess 7.0 (-2-2) H David Test Positive Urine Color Yellow Urine Appearance Cloudy Urine pH 5 (4.5-8.0) Urine Specific [place] 1.010 (1.005-1.035) Urine Protein 3+ (NEGATIVE) H Urine Glucose (UA) Negative (NEGATIVE) Urine Ketones Negative (NEGATIVE) Urine Blood 4+ (NEGATIVE) H Urine Nitrite Negative (NEGATIVE) Urine Bilirubin Negative (NEGATIVE) Urine Urobilinogen Normal MG/DL (0.0-1.0) Urine Leukocyte Esterase 2+ (NEGATIVE) H Urine RBC Pending Urine WBC Pending Urine Squamous Epithelial Cells Pending Urine Bacteria Pending Geoffrey Sandhu MD Jun 15, 2018 20:21
--- NOTE | 2018-06-15 20:31 | General Progress Note ---
Assessment/Plan Status: deteriorating Assessment/Plan This is an 87-year-old female admitted with chronic obstructive pulmonary disease exacerbation, right lower lobe infiltrate/pneumonia with altered mental status and acute kidney injury. The patient will be admitted to [facility] with the following medical problems. 1. Chronic obstructive pulmonary disease exacerbation and pneumonia. The patient has been seen by Pulmonary. Infectious Disease has been consulted, pancultured. IV antibiotics per ID. Continue with BiPAP and suction p.r.n. Transition to Venturi-mask when stable. 2. Acute kidney injury. We will monitor I's and O's, gentle intravenous fluids. Repeat a BMP in a.m. Consider Nephrology consult. 3. History of chronic atrial fibrillation. Continue with amiodarone. The patient is in sinus rhythm at this time. 4. History of hypertension. Continue with amlodipine and hold for systolic blood pressure less than 110. 5. Altered mental status, most likely from above conditions. We will keep n.p.o. except for medications and start IV fluids. 6. DVT prophylaxis with heparin subcutaneous and SCDs. 7. The patient is Full Code per policy. We will discuss with the family. 8. hypokalmia 9. Anemia 10. CHf acute on chronic 11. leucocytosis Plan: - now in [facility] - on continuous Bipap - add mucomyst HHN - change Duoneb HHN to q 4 - NPO - swallow study when off Bipap - monitor BUN CRE - decrease mainatenance IV fluids D5 1/4 NS with 20 meq kcl at 30 cc/hr - am labs - aggressive suctioning and chest pt - may need reintubation if not improving per pulmonary discussed with nurse Subjective Date patient seen: Jun 15, 2018 ROS Limited/Unobtainable: Yes Respiratory: Reports: SOB at rest Allergies: Coded Allergies: Mushroom (Verified Allergy, Severe, 05/28/18) MORPHINE (Unverified Allergy, Intermediate, Itching, 01/04/15) PENICILLINS (Unverified Allergy, Intermediate, Hives, 01/04/15) CELECOXIB (Verified Allergy, Mild, 01/15/09) Subjective now extubated and transfered to [facility] on , continues on Bipap, NPO Objective Last 24 Hour Vital Signs Date Time Temp Pulse Resp B/P (MAP) Pulse Ox O2 Delivery O2 Flow Rate FiO2 06/15/18 17:42 117 141/68 06/15/18 16:58 117 32 94 Full Face 60 06/15/18 16:52 92 28 94 Bi-pap 60 06/15/18 16:42 109 22 95 Bi-pap 60 06/15/18 16:00 60 06/15/18 16:00 116 06/15/18 16:00 98.9 104 35 141/68 (92) 96 06/15/18 16:00 Bi-pap Bi-pap Bi-pap 06/15/18 13:14 106 28 95 Full Face 60 06/15/18 12:59 100.0 06/15/18 12:43 104 28 95 Bi-pap 60 06/15/18 12:32 92 22 95 Bi-pap 60 06/15/18 12:00 Bi-pap Bi-pap Bi-pap 06/15/18 12:00 144 06/15/18 12:00 60 06/15/18 11:47 100.9 104 35 140/77 (98) 96 06/15/18 09:10 103 24 96 Bi-pap 60 06/15/18 09:03 111 19 97 Full Face 60 06/15/18 08:59 119 22 96 Bi-pap 60 06/15/18 08:39 110 143/83 06/15/18 08:00 55 06/15/18 08:00 116 06/15/18 08:00 Bi-pap Bi-pap Bi-pap 06/15/18 07:54 98.8 110 21 143/83 (103) 95 06/15/18 07:10 109 20 96 Full Face 60 06/15/18 05:10 120 24 94 Full Face 55 06/15/18 04:42 Bi-pap 60 06/15/18 04:39 116 25 92 Bi-pap 60 06/15/18 04:00 Bi-pap 60.0 Bi-pap 15.0 Venturi Mask 06/15/18 04:00 98.8 122 21 160/70 (100) 95 06/15/18 04:00 55 06/15/18 03:24 122 06/15/18 03:05 124 26 93 Full Face 55 06/15/18 01:26 112 28 93 Full Face 55 06/15/18 01:00 108 22 97 Venturi Mask 14.0 55 06/15/18 00:23 106 22 93 Venturi Mask 14.0 55 06/15/18 00:00 98.6 120 32 146/80 (102) 92 06/15/18 00:00 Bi-pap 60.0 Bi-pap 15.0 Venturi Mask 06/14/18 23:26 120 Intake and Output 06/14/18 06/15/18 18:59 06:59 Intake Total 970.000 ml 745 ml Output Total 750 ml 500 ml Balance 220.000 ml 245 ml Free Water 50 ml 100 ml IV Total 810.000 ml 375 ml Tube Feeding 110 ml 270 ml Output Urine Total 750 ml 500 ml # Bowel Movements 2 Laboratory Tests 06/15/18 03:00: White Blood Count 16.6H, Red Blood Count 5.01, Hemoglobin 11.4L, Hematocrit 37.4 , Mean Corpuscular Volume 75L, Mean Corpuscular Hemoglobin 22.7L, Mean Corpuscular Hemoglobin Concent 30.4L, Red Cell Distribution Width 18.1H, Platelet Count 443, Mean Platelet Volume 7.1, Neutrophils (%) (Auto) , Lymphocytes (%) (Auto) , Monocytes (%) (Auto) , Eosinophils (%) (Auto) , Basophils (%) (Auto) , Differential Total Cells Counted 100, Neutrophils % ( Manual) 86H, Lymphocytes % (Manual) 4L, Monocytes % (Manual) 8, Eosinophils % ( Manual) 2, Basophils % (Manual) 0, Band Neutrophils 0, Platelet Estimate Adequate, Platelet Morphology Normal, Hypochromasia 1+, Anisocytosis 1+, Microcytosis 1+, Sodium Level 145, Potassium Level 3.5, Chloride Level 105, Carbon Dioxide Level 30, Anion Gap 10, Blood Urea Nitrogen 41H, Creatinine 1.9H , Estimat Glomerular Filtration Rate , Glucose Level 136H, Calcium Level 9.5, Pro-B-Type Natriuretic Peptide 2721H 06/15/18 14:08: Arterial Blood pH 7.419, Arterial Blood Partial Pressure CO2 51.8H, Arterial Blood Partial Pressure O2 64.6L, Arterial Blood HCO3 32.8H, Arterial Blood Oxygen Saturation 94.1L, Arterial Blood Base Excess 7.0H, David Test Positive 06/15/18 17:30: Urine Color Yellow, Urine Appearance Cloudy, Urine pH 5, Urine Specific [place] 1.010, Urine Protein 3+H, Urine Glucose (UA) Negative, Urine Ketones Negative, Urine Blood 4+H, Urine Nitrite Negative, Urine Bilirubin Negative, Urine Urobilinogen Normal, Urine Leukocyte Esterase 2+H, Urine RBC [Pending], Urine WBC [Pending], Urine Squamous Epithelial Cells [Pending], Urine Bacteria [ Pending] Height (Feet): 5 Height (Inches): 4.00 Weight (Pounds): 127 General Appearance: moderate distress EENT: PERRL/EOMI, pharynx normal Neck: non-tender Respiratory/Chest: decreased breath sounds Abdomen: non tender, soft, no mass Edema: no edema noted Arm (L), no edema noted Arm (R), no edema noted Leg (L), no edema noted Leg (R), no edema noted Pedal (L), no edema noted Pedal (R), no edema noted Generalized Neurologic: responsive Skin: warm/dry Lymphatic: normal anterior cervical (L), normal anterior cervical (R), normal posterior cervical (L), normal posterior cervical (R), normal submandibular (L) , normal submandibular (R), normal supraclavicular (L), normal supraclavicular ( R), normal axillary (L), normal axillary (R), normal inguinal (L), normal inguinal (R), normal other Cruz Valderrama MD Jun 15, 2018 20:31
[2018-06-15] MEDS: Dyna-Hex 2% Top Sol 2oz TOPIC SCH (21:03)
[2018-06-15] MEDS: D5 1/4NS w/KCl 20mEq 1,000 ML IV SCH (21:04)
[2018-06-15] MEDS: Miralax 17gm pkt ORAL SCH (21:04)
[2018-06-16] VITALS (12 sets, daily range): BP systolic 97–149; BP diastolic 41–85
[2018-06-16] MEDS: Acetylcysteine 20% Soln 4ml HHN SCH ×5 (03:30→22:41)
[2018-06-16] MEDS: Albuterol/Ipratropium 3ml neb HHN PRN ×5 (04:30→22:41)
[2018-06-16 06:04] LABS: HEMATOCRIT 36.4 % (37.0-47.0); HEMOGLOBIN 11.4 G/DL (12.0-16.0); MEAN CORPUSCULAR VOLUME 73 FL (80-99); PLATELET COUNT 409 K/UL (150-450); RED BLOOD COUNT 4.95 M/UL (4.20-5.40); RED CELL DISTRIBUTION WIDTH 17.8 % (11.6-14.8)
[2018-06-16 06:09] LABS: WHITE BLOOD COUNT 22.2 K/UL (4.8-10.8)
--- NOTE | 2018-06-16 06:13 | NUR ---
noted with WBC 22.2, paged Dr Noel. Awaiting for call back.
[2018-06-16 06:18] LABS: ANION GAP 10 mmol/L (5-15); BLOOD UREA NITROGEN 51 mg/dL (7-18); CALCIUM 9.8 MG/DL (8.5-10.1); CARBON DIOXIDE 28 MMOL/L (21-32); CHLORIDE 105 MMOL/L (98-107); CREATININE 2.5 MG/DL (0.55-1.30); POTASSIUM 4.4 MMOL/L (3.5-5.1); SODIUM 143 MMOL/L (136-145)
[2018-06-16 06:24] LABS: ALANINE AMINOTRANSFERASE 27 U/L (12-78); ALBUMIN 2.5 G/DL (3.4-5.0); ALKALINE PHOSPHATASE 112 U/L (46-116); ASPARTATE AMINO TRANSFERASE 17 U/L (15-37); BILIRUBIN,DIRECT 0.2 MG/DL (0.0-0.3); BILIRUBIN,TOTAL 0.6 MG/DL (0.2-1.0)
--- NOTE | 2018-06-16 07:15 | NUR ---
RESPIRATORY NOTE: Received pt on Bipap 15/5-60% FiO2. Pt is resting comfortably in the bed, no resp distress noted. Breathing TX Mucomyst and Duoneb given without any adverse reactions. Took off the mask to check for toleration and skin integrity. Pt's desat quickly w Minor redness on pt's nosebridge noted, MARGY Selby and Linda made aware. Will using full face mask through this shift, and adjusting the mask every q2h, foam tapes applied on the cheeks, chin and forehead to prevent any skin breakdowns. Alarms are set and audible, Bipap is plugged into the red outlet, ambu bag is at bed side. Addendum: 06/16/18 at 1352 by Jonathan Campbell RT Pt desat quickly without the Bipap mask Will continue to monitor pt closely
--- NOTE | 2018-06-16 07:28 | NUR ---
HAND-OFF: Report given to Linda Sandoval RN.
--- NOTE | 2018-06-16 07:30 | NUR ---
NURSE NOTES: Report received from Sola Gutierrez RN.Pt in bed anxious on BIPAP 15/5 ,Fio2 60%,NGT to LT nare clamped,in placed per auscultation,Sinclair cath to BSD draining yellow urine,SR up x2 HOB elevated,bed locked in lowest position ,will continue with plans of care.
--- NOTE | 2018-06-16 09:20 | NUR ---
RESPIRATORY NOTE: Increased FiO2 to 100% due to desaturation to <85%. MARGY Mckeon made aware.
--- NOTE | 2018-06-16 09:22 | General Progress Note ---
Assessment/Plan Status: deteriorating Assessment/Plan This is an 87-year-old female admitted with chronic obstructive pulmonary disease exacerbation, right lower lobe infiltrate/pneumonia with altered mental status and acute kidney injury. The patient will be admitted to [facility] with the following medical problems. 1. Chronic obstructive pulmonary disease exacerbation and pneumonia. The patient has been seen by Pulmonary. Infectious Disease has been consulted, pancultured. IV antibiotics per ID. Continue with BiPAP and suction p.r.n. Transition to Venturi-mask when stable. 2. Acute kidney injury. We will monitor I's and O's, gentle intravenous fluids. Repeat a BMP in a.m. Consider Nephrology consult. 3. History of chronic atrial fibrillation. Continue with amiodarone. The patient is in sinus rhythm at this time. 4. History of hypertension. Continue with amlodipine and hold for systolic blood pressure less than 110. 5. Altered mental status, most likely from above conditions. We will keep n.p.o. except for medications and start IV fluids. 6. DVT prophylaxis with heparin subcutaneous and SCDs. 7. The patient is Full Code per policy. We will discuss with the family. 8. hypokalmia 9. Anemia 10. CHf acute on chronic 11. leucocytosis Plan: - now in [facility] - on continuous Bipap - add mucomyst HHN - change Duoneb HHN to q 4 - NPO - swallow study when off Bipap - monitor BUN CRE - increase mainatenance IV fluids D5 1/4 NS with 20 meq kcl at 60 cc/hr - am labs - aggressive suctioning and chest pt - may need reintubation if not improving per pulmonary discussed with nurse Subjective Date patient seen: Jun 16, 2018 Allergies: Coded Allergies: Mushroom (Verified Allergy, Severe, 05/28/18) MORPHINE (Unverified Allergy, Intermediate, Itching, 01/04/15) PENICILLINS (Unverified Allergy, Intermediate, Hives, 01/04/15) CELECOXIB (Verified Allergy, Mild, 01/15/09) Subjective now extubated and transfered to [facility] on , continues on Bipap, NPO Objective Last 24 Hour Vital Signs Date Time Temp Pulse Resp B/P (MAP) Pulse Ox O2 Delivery O2 Flow Rate FiO2 06/16/18 07:15 89 28 97 Bi-pap 60 06/16/18 07:15 89 28 95 Full Face 60 06/16/18 07:03 61 11 95 Bi-pap 60 06/16/18 05:15 114 30 95 Full Face 60 06/16/18 04:00 98.1 109 26 121/85 (97) 94 06/16/18 04:00 Bi-pap 60.0 Bi-pap Bi-pap 06/16/18 04:00 60 06/16/18 03:40 100 27 96 Bi-pap 60 06/16/18 03:30 100 25 96 Full Face 60 06/16/18 03:30 98 18 95 Bi-pap 60 06/16/18 03:20 111 06/16/18 01:31 71 27 97 Full Face 60 06/16/18 00:00 Bi-pap 60.0 Bi-pap Bi-pap 06/16/18 00:00 99.3 102 28 149/73 (98) 97 06/15/18 23:30 84 30 95 Bi-pap 60 06/15/18 23:24 125 06/15/18 23:14 74 30 97 Full Face 60 06/15/18 23:14 111 22 96 Bi-pap 60 06/15/18 20:00 60 06/15/18 20:00 Bi-pap 60.0 Bi-pap Bi-pap 06/15/18 20:00 99.1 104 34 110/78 (89) 98 06/15/18 19:44 119 06/15/18 18:50 75 26 96 Full Face 55 06/15/18 17:42 117 141/68 06/15/18 16:58 117 32 94 Full Face 60 06/15/18 16:52 92 28 94 Bi-pap 60 06/15/18 16:42 109 22 95 Bi-pap 60 06/15/18 16:00 60 06/15/18 16:00 116 06/15/18 16:00 98.9 104 35 141/68 (92) 96 06/15/18 16:00 Bi-pap Bi-pap Bi-pap 06/15/18 13:14 106 28 95 Full Face 60 06/15/18 12:59 100.0 06/15/18 12:43 104 28 95 Bi-pap 60 06/15/18 12:32 92 22 95 Bi-pap 60 06/15/18 12:00 Bi-pap Bi-pap Bi-pap 06/15/18 12:00 144 2/13/19 12:00 60 06/15/18 11:47 100.9 104 35 140/77 (98) 96 Intake and Output 06/15/18 06/16/18 19:00 07:00 Intake Total 400 ml 270 ml Output Total 300 ml 450 ml Balance 100 ml -180 ml IV Total 400 ml 270 ml Output Urine Total 300 ml 450 ml Laboratory Tests 06/15/18 14:08: Arterial Blood pH 7.419, Arterial Blood Partial Pressure CO2 51.8H, Arterial Blood Partial Pressure O2 64.6L, Arterial Blood HCO3 32.8H, Arterial Blood Oxygen Saturation 94.1L, Arterial Blood Base Excess 7.0H, David Test Positive 06/15/18 17:30: Urine Color Yellow, Urine Appearance Cloudy, Urine pH 5, Urine Specific [place] 1.010, Urine Protein 3+H, Urine Glucose (UA) Negative, Urine Ketones Negative, Urine Blood 4+H, Urine Nitrite Negative, Urine Bilirubin Negative, Urine Urobilinogen Normal, Urine Leukocyte Esterase 2+H, Urine RBC 5-10H, Urine WBC 10 -15H, Urine Squamous Epithelial Cells Few, Urine Amorphous Sediment ManyH, Urine Bacteria ModerateH, Urine Yeast ManyH 06/16/18 05:00: White Blood Count 22.2*H, Red Blood Count 4.95, Hemoglobin 11.4L, Hematocrit 36.4L, Mean Corpuscular Volume 73L, Mean Corpuscular Hemoglobin 23.0L, Mean Corpuscular Hemoglobin Concent 31.3L, Red Cell Distribution Width 17.8H, Platelet Count 409, Mean Platelet Volume 7.5, Neutrophils (%) (Auto) , Lymphocytes (%) (Auto) , Monocytes (%) (Auto) , Eosinophils (%) (Auto) , Basophils (%) (Auto) , Differential Total Cells Counted 100, Neutrophils % ( Manual) 86H, Lymphocytes % (Manual) 7L, Monocytes % (Manual) 4, Eosinophils % ( Manual) 3, Basophils % (Manual) 0, Band Neutrophils 0, Platelet Estimate Adequate, Platelet Morphology Normal, Hypochromasia 1+, Anisocytosis 1+, Microcytosis 1+, Sodium Level 143, Potassium Level 4.4, Chloride Level 105, Carbon Dioxide Level 28, Anion Gap 10, Blood Urea Nitrogen 51H, Creatinine 2.5H , Estimat Glomerular Filtration Rate , Glucose Level 111H, Calcium Level 9.8, Total Bilirubin 0.6, Direct Bilirubin 0.2, Aspartate Amino Transf (AST/SGOT) 17 , Alanine Aminotransferase (ALT/SGPT) 27, Alkaline Phosphatase 112, Total Protein 7.4, Albumin 2.5L Height (Feet): 5 Height (Inches): 4.00 Weight (Pounds): 127 General Appearance: no apparent distress, alert EENT: PERRL/EOMI, pharynx normal Neck: non-tender, supple Cardiovascular: normal rate, regular rhythm, no gallop/murmur, no JVD Respiratory/Chest: decreased breath sounds Abdomen: non tender, soft, no mass Extremities: non-tender, normal inspection, no calf tenderness Edema: no edema noted Arm (L), no edema noted Arm (R), no edema noted Leg (L), no edema noted Leg (R), no edema noted Pedal (L), no edema noted Pedal (R), no edema noted Generalized Neurologic: alert Skin: warm/dry Lymphatic: normal anterior cervical (L), normal anterior cervical (R), normal posterior cervical (L), normal posterior cervical (R), normal submandibular (L) , normal submandibular (R), normal supraclavicular (L), normal supraclavicular ( R), normal axillary (L), normal axillary (R), normal inguinal (L), normal inguinal (R), normal other Cruz Valderrama MD Jun 16, 2018 09:22
[2018-06-16] MEDS ORDERED: D5 1/2NS w/KCl 20mEq 1,000 ML IV SCH ×4 (09:30→18:00)
[2018-06-16] MEDS: Cefepime HCl 1 GM in D5W 55 ML IV SCH (10:08)
[2018-06-16] MEDS: Amiodarone 200mg tab ORAL SCH (10:09)
[2018-06-16] MEDS: Heparin 5000 units/ml inj SUBQ SCH ×2 (10:12→21:00)
[2018-06-16] MEDS: Pantoprazole Inj IV SCH (10:17)
--- NOTE | 2018-06-16 10:23 | GI Progress Note ---
Assessment/Plan Problems: (1) Severe malnutrition ICD Codes: E43 - Unspecified severe protein-calorie malnutrition SNOMED: 04164461 (2) Dementia ICD Codes: F03.90 - Unspecified dementia without behavioral disturbance SNOMED: 82376047 (3) Confused ICD Codes: R41.0 - Disorientation, unspecified SNOMED: 141164263 (4) Encounter for PEG (percutaneous endoscopic gastrostomy) ICD Codes: Z43.1 - Encounter for attention to gastrostomy SNOMED: 835721092, 885376403 (5) Failure to thrive SNOMED: 34321611 (6) Acute encephalopathy ICD Codes: G93.40 - Encephalopathy, unspecified SNOMED: 1494031 Status: not improved, unchanged Status Narrative Discussed with Dr. Acevedo Assessment/Plan Assessment - Resp failure - NGT dependent - COPD - CHF - PNA - Anemia - Poor prognosis -No plans for tracheostomy as of yet, patient has failed weening multiple times. Continues to be on BiPAP. Right lung now plugged. Recommendations -Hold NGT feeds while on BiPAP. High recommendation for tracheostomy followed by PEG. - Vent care - Elevated HOB at all times - Monitor residuals - Abx - Pulmonary toilet -Follow labs The patient was seen and examined at bedside and all new and available data was reviewed in the patients chart. I agree with the above findings, impression and plan. (Patient seen earlier today. Signature stamp does not reflect patient encounter time.). - Jacobo Acevedo MD Subjective Subjective Limited Objective Last 24 Hour Vital Signs Date Time Temp Pulse Resp B/P (MAP) Pulse Ox O2 Delivery O2 Flow Rate FiO2 06/16/18 10:09 73 143/67 06/16/18 08:00 98.7 73 27 143/67 (92) 96 06/16/18 07:15 89 28 97 Bi-pap 60 06/16/18 07:15 89 28 95 Full Face 60 06/16/18 07:03 61 11 95 Bi-pap 60 06/16/18 05:15 114 30 95 Full Face 60 06/16/18 04:00 98.1 109 26 121/85 (97) 94 06/16/18 04:00 Bi-pap 60.0 Bi-pap Bi-pap 06/16/18 04:00 60 06/16/18 03:40 100 27 96 Bi-pap 60 06/16/18 03:30 100 25 96 Full Face 60 06/16/18 03:30 98 18 95 Bi-pap 60 06/16/18 03:20 111 06/16/18 01:31 71 27 97 Full Face 60 06/16/18 00:00 Bi-pap 60.0 Bi-pap Bi-pap 06/16/18 00:00 99.3 102 28 149/73 (98) 97 06/15/18 23:30 84 30 95 Bi-pap 60 06/15/18 23:24 125 06/15/18 23:14 74 30 97 Full Face 60 06/15/18 23:14 111 22 96 Bi-pap 60 06/15/18 20:00 60 06/15/18 20:00 Bi-pap 60.0 Bi-pap Bi-pap 06/15/18 20:00 99.1 104 34 110/78 (89) 98 06/15/18 19:44 119 06/15/18 18:50 75 26 96 Full Face 55 06/15/18 17:42 117 141/68 06/15/18 16:58 117 32 94 Full Face 60 06/15/18 16:52 92 28 94 Bi-pap 60 06/15/18 16:42 109 22 95 Bi-pap 60 06/15/18 16:00 60 06/15/18 16:00 116 06/15/18 16:00 98.9 104 35 141/68 (92) 96 06/15/18 16:00 Bi-pap Bi-pap Bi-pap 06/15/18 13:14 106 28 95 Full Face 60 06/15/18 12:59 100.0 06/15/18 12:43 104 28 95 Bi-pap 60 06/15/18 12:32 92 22 95 Bi-pap 60 06/15/18 12:00 Bi-pap Bi-pap Bi-pap 06/15/18 12:00 144 06/15/18 12:00 60 06/15/18 11:47 100.9 104 35 140/77 (98) 96 Intake and Output 06/15/18 06/16/18 19:00 07:00 Intake Total 400 ml 270 ml Output Total 300 ml 450 ml Balance 100 ml -180 ml IV Total 400 ml 270 ml Output Urine Total 300 ml 450 ml Laboratory Tests Test 06/15/18 14:08 06/15/18 17:30 06/16/18 05:00 Arterial Blood pH 7.419 (7.350-7.450) Arterial Blood Partial Pressure CO2 51.8 mmHg (35.0-45.0) H Arterial Blood Partial Pressure O2 64.6 mmHg (75.0-100.0) L Arterial Blood HCO3 32.8 mmol/L (22.0-26.0) H Arterial Blood Oxygen Saturation 94.1 % (95-100) L Arterial Blood Base Excess 7.0 (-2-2) H David Test Positive Urine Color Yellow Urine Appearance Cloudy Urine pH 5 (4.5-8.0) Urine Specific [place] 1.010 (1.005-1.035) Urine Protein 3+ (NEGATIVE) H Urine Glucose (UA) Negative (NEGATIVE) Urine Ketones Negative (NEGATIVE) Urine Blood 4+ (NEGATIVE) H Urine Nitrite Negative (NEGATIVE) Urine Bilirubin Negative (NEGATIVE) Urine Urobilinogen Normal MG/DL (0.0-1.0) Urine Leukocyte Esterase 2+ (NEGATIVE) H Urine RBC 5-10 /HPF (0 - 2) H Urine WBC 10-15 /HPF (0 - 2) H Urine Squamous Epithelial Cells Few /LPF (NONE/OCC) Urine Amorphous Sediment Many /LPF (NONE) H Urine Bacteria Moderate /HPF (NONE) H Urine Yeast Many /HPF (NONE) H White Blood Count 22.2 K/UL (4.8-10.8) *H Red Blood Count 4.95 M/UL (4.20-5.40) Hemoglobin 11.4 G/DL (12.0-16.0) L Hematocrit 36.4 % (37.0-47.0) L Mean Corpuscular Volume 73 FL (80-99) L Mean Corpuscular Hemoglobin 23.0 PG (27.0-31.0) L Mean Corpuscular Hemoglobin Concent 31.3 G/DL (32.0-36.0) L Red Cell Distribution Width 17.8 % (11.6-14.8) H Platelet Count 409 K/UL (150-450) Mean Platelet Volume 7.5 FL (6.5-10.1) Neutrophils (%) (Auto) % (45.0-75.0) Lymphocytes (%) (Auto) % (20.0-45.0) Monocytes (%) (Auto) % (1.0-10.0) Eosinophils (%) (Auto) % (0.0-3.0) Basophils (%) (Auto) % (0.0-2.0) Differential Total Cells Counted 100 Neutrophils % (Manual) 86 % (45-75) H Lymphocytes % (Manual) 7 % (20-45) L Monocytes % (Manual) 4 % (1-10) Eosinophils % (Manual) 3 % (0-3) Basophils % (Manual) 0 % (0-2) Band Neutrophils 0 % (0-8) Platelet Estimate Adequate Platelet Morphology Normal Hypochromasia 1+ Anisocytosis 1+ Microcytosis 1+ Sodium Level 143 MMOL/L (136-145) Potassium Level 4.4 MMOL/L (3.5-5.1) Chloride Level 105 MMOL/L (98-107) Carbon Dioxide Level 28 MMOL/L (21-32) Anion Gap 10 mmol/L (5-15) Blood Urea Nitrogen 51 mg/dL (7-18) H Creatinine 2.5 MG/DL (0.55-1.30) H Estimat Glomerular Filtration Rate mL/min (>60) Glucose Level 111 MG/DL (74-106) H Calcium Level 9.8 MG/DL (8.5-10.1) Total Bilirubin 0.6 MG/DL (0.2-1.0) Direct Bilirubin 0.2 MG/DL (0.0-0.3) Aspartate Amino Transf (AST/SGOT) 17 U/L (15-37) Alanine Aminotransferase (ALT/SGPT) 27 U/L (12-78) Alkaline Phosphatase 112 U/L (46-116) Total Protein 7.4 G/DL (6.4-8.2) Albumin 2.5 G/DL (3.4-5.0) L Microbiology Date/Time Source Procedure Growth Status 06/15/18 17:30 Sputum Gram Stain - Final Resulted 06/15/18 17:30 Sputum Sputum Culture Pending Resulted Height (Feet): 5 Height (Inches): 4.00 Weight (Pounds): 127 General Appearance: WD/WN, no apparent distress, alert Cardiovascular: normal rate Respiratory/Chest: normal breath sounds, no respiratory distress, other - BiPAP Abdominal Exam: normal bowel sounds, non tender, soft, other - NGT Extremities: non-tender Alber Rodriguez NP Jun 16, 2018 10:23
--- NOTE | 2018-06-16 11:00 | NUR ---
NURSE NOTES: Pt showing SVT on the monitor, HR 155-165/min ,sustained,call placed to DR Sandhu,ordered Metoprolol 5mg IVP stat,order done and carried out.
--- NOTE | 2018-06-16 11:08 | NUR ---
RD ASSESSMENT & RECOMMENDATIONS SEE CARE ACTIVITY FOR COMPLETE ASSESSMENT DAILY ESTIMATED NEEDS: Needs based on Pulmonary/ 54kg 25-30 kcals/kg 1802-8282 total kcals 1-1.5 g protein/kg 54-81 g total protein 25-30 mL/kg 7329-6529 total fluid mLs NUTRITION DIAGNOSIS: * Swallowing difficulty R/T dysphagia, respiratory status as evidenced by s/p intubation, now extubated on continuous BIPAP, NGT feeds held. * Altered nutrition related lab values R/T volume deficit? clinical condition, prediabetes as evidenced by elev Na (149-> now wnl), elev BUN/creat (51/2.5), A1C=5.9, elev BG of 201 upon adm -> 111 136 improved. CURRENT TF:Osmolite 1.5 @ 45ml/hr x 24 hrs -> HELD while on BIPAP ENTERAL NUTRITION RECOMMENDATIONS: Glucerna 1.2 @ 55ml/hr x 24 hrs to provide 1320ml, 1584kcal, 79g prot, 1063ml free water * WHEN MEDICALLY APPROPRIATE -> Rec Glucerna 1.2, initiate @ @ 25ml/hr x 6 hrs, advance 10ml q 4-6 hrs as tolerated to goal rate * HOB over 30 degrees/ water flush per MD. ADDITIONAL RECOMMENDATIONS: * CALIBRATED bedscale wt for accurate CBW- w/ added SPR mattress+ pump * Monitor lytes daily w/ TF, replete as needed * Monitor BGs, need for SSI/hypoglycemic agents * Monitor NPO status, POC: -> Trach/PEG? TF held while on BIPAP at this time . . .
[2018-06-16] MEDS ORDERED: Metoprolol 5mg/5ml Inj IVP PRN (11:14)
--- NOTE | 2018-06-16 11:45 | NUR ---
NURSE NOTES: Cardiac monitoring showing SR S-tach on the monitor,HR 91-110/min.No further distress noted.
--- NOTE | 2018-06-16 12:46 | Nephrology Progress Note ---
Assessment/Plan Problem List: (1) Acute renal failure Assessment: Cr rising (2) Urinary outflow obstruction Assessment: resolved after grewal (3) Acute respiratory failure (4) Dementia (5) Afib Assessment Urinary out let obstruction, relieved after grewal Normal serum Cr Anemia, Low MCV High Ca corrected for low ALbumin other conditions: (1) Acute respiratory failure (2) Aspiration pneumonia (3) Acute encephalopathy (4) Pleural effusion (5) COPD (chronic obstructive pulmonary disease) (6) CAD (coronary artery disease) (7) Dementia Plan monitor vanco level extubated now- on BIPAP struggling DC Lasix Fluid challenge K and Phos and Mag as needed slow Hydrate Anemia porter Adjust BP meds fu Lytes Gastric support pulm support- not tolerating bipap consider tube feeding ( PEG) as po is POOR Subjective ROS Limited/Unobtainable: Yes Objective Objective Last 24 Hour Vital Signs Date Time Temp Pulse Resp B/P (MAP) Pulse Ox O2 Delivery O2 Flow Rate FiO2 06/16/18 12:00 Bi-pap 60.0 Bi-pap Bi-pap 06/16/18 11:20 165 143/67 06/16/18 11:02 88 30 92 Bi-pap 100 06/16/18 10:09 73 143/67 06/16/18 08:40 72 35 89 Full Face 100 06/16/18 08:00 98.7 73 27 143/67 (92) 96 06/16/18 08:00 Bi-pap 60.0 Bi-pap Bi-pap 06/16/18 08:00 116 06/16/18 07:15 89 28 97 Bi-pap 60 06/16/18 07:15 89 28 95 Full Face 60 06/16/18 07:03 61 11 95 Bi-pap 60 06/16/18 05:15 114 30 95 Full Face 60 06/16/18 04:00 98.1 109 26 121/85 (97) 94 06/16/18 04:00 Bi-pap 60.0 Bi-pap Bi-pap 06/16/18 04:00 60 06/16/18 03:40 100 27 96 Bi-pap 60 06/16/18 03:30 100 25 96 Full Face 60 06/16/18 03:30 98 18 95 Bi-pap 60 06/16/18 03:20 111 06/16/18 01:31 71 27 97 Full Face 60 06/16/18 00:00 Bi-pap 60.0 Bi-pap Bi-pap 06/16/18 00:00 99.3 102 28 149/73 (98) 97 06/15/18 23:30 84 30 95 Bi-pap 60 06/15/18 23:24 125 06/15/18 23:14 74 30 97 Full Face 60 06/15/18 23:14 111 22 96 Bi-pap 60 06/15/18 20:00 60 06/15/18 20:00 Bi-pap 60.0 Bi-pap Bi-pap 06/15/18 20:00 99.1 104 34 110/78 (89) 98 06/15/18 19:44 119 06/15/18 18:50 75 26 96 Full Face 55 06/15/18 17:42 117 141/68 06/15/18 16:58 117 32 94 Full Face 60 06/15/18 16:52 92 28 94 Bi-pap 60 06/15/18 16:42 109 22 95 Bi-pap 60 06/15/18 16:00 60 06/15/18 16:00 116 06/15/18 16:00 98.9 104 35 141/68 (92) 96 06/15/18 16:00 Bi-pap Bi-pap Bi-pap 06/15/18 13:14 106 28 95 Full Face 60 06/15/18 12:59 100.0 Intake and Output 06/15/18 06/16/18 19:00 07:00 Intake Total 400 ml 270 ml Output Total 300 ml 450 ml Balance 100 ml -180 ml IV Total 400 ml 270 ml Output Urine Total 300 ml 450 ml Laboratory Tests 06/15/18 14:08: Arterial Blood pH 7.419, Arterial Blood Partial Pressure CO2 51.8H, Arterial Blood Partial Pressure O2 64.6L, Arterial Blood HCO3 32.8H, Arterial Blood Oxygen Saturation 94.1L, Arterial Blood Base Excess 7.0H, David Test Positive 06/15/18 17:30: Urine Color Yellow, Urine Appearance Cloudy, Urine pH 5, Urine Specific [place] 1.010, Urine Protein 3+H, Urine Glucose (UA) Negative, Urine Ketones Negative, Urine Blood 4+H, Urine Nitrite Negative, Urine Bilirubin Negative, Urine Urobilinogen Normal, Urine Leukocyte Esterase 2+H, Urine RBC 5-10H, Urine WBC 10 -15H, Urine Squamous Epithelial Cells Few, Urine Amorphous Sediment ManyH, Urine Bacteria ModerateH, Urine Yeast ManyH 06/16/18 05:00: White Blood Count 22.2*H, Red Blood Count 4.95, Hemoglobin 11.4L, Hematocrit 36.4L, Mean Corpuscular Volume 73L, Mean Corpuscular Hemoglobin 23.0L, Mean Corpuscular Hemoglobin Concent 31.3L, Red Cell Distribution Width 17.8H, Platelet Count 409, Mean Platelet Volume 7.5, Neutrophils (%) (Auto) , Lymphocytes (%) (Auto) , Monocytes (%) (Auto) , Eosinophils (%) (Auto) , Basophils (%) (Auto) , Differential Total Cells Counted 100, Neutrophils % ( Manual) 86H, Lymphocytes % (Manual) 7L, Monocytes % (Manual) 4, Eosinophils % ( Manual) 3, Basophils % (Manual) 0, Band Neutrophils 0, Platelet Estimate Adequate, Platelet Morphology Normal, Hypochromasia 1+, Anisocytosis 1+, Microcytosis 1+, Sodium Level 143, Potassium Level 4.4, Chloride Level 105, Carbon Dioxide Level 28, Anion Gap 10, Blood Urea Nitrogen 51H, Creatinine 2.5H , Estimat Glomerular Filtration Rate , Glucose Level 111H, Calcium Level 9.8, Total Bilirubin 0.6, Direct Bilirubin 0.2, Aspartate Amino Transf (AST/SGOT) 17 , Alanine Aminotransferase (ALT/SGPT) 27, Alkaline Phosphatase 112, Total Protein 7.4, Albumin 2.5L Height (Feet): 5 Height (Inches): 4.00 Weight (Pounds): 127 General Appearance: mild distress EENT: other Cardiovascular: tachycardia Respiratory/Chest: decreased breath sounds Abdomen: distended Objective no change Kendrick Jimenez MD Jun 16, 2018 12:46
--- NOTE | 2018-06-16 13:14 | Diagnostic Imaging Report ---
Indication: Dyspnea Technique: One view of the chest Comparison: 06/15/2018 Findings: Interim complete opacification of the right hemithorax. Abrupt cut off of the right mainstem bronchus and rightward deviation of the trachea suggests that this is largely due to atelectasis. There is some compensatory hyperinflation of the left lung. The heart is probably enlarged, borders incompletely visualized. Nasogastric tube, right arm PICC remain Impression: Complete opacification of the right hemithorax. Probably due to complete atelectasis of the right lung, with evidence of abrupt occlusion of the right mainstem bronchus. Given findings on prior chest radiographs, there is probably significant component of pleural effusion as well. Findings discussed by phone with patient's nurse Linda at the time of interpretation
--- NOTE | 2018-06-16 15:10 | NUR ---
:TRANSFER TO FLOOR: Patient transferred to ICU [id number], per bed lethargic per order of Dr De Souza for intubation. Report given to Carmelita Jensen RN. Belongings and medications given to receiving RN. Family at bedside aware of the transfer.
--- NOTE | 2018-06-16 15:13 | Pulmonology Progress Note ---
Assessment/Plan Assessment/Plan Problem List: 1. Acute on chronic hypercapnic respiratory failure 2. R lung collapse, possibly mucous plugging - recurred 3. Pulmonary edema 4. chronic obstructive asthma 5. Pneumonia 6. Hx afib 7. MRSA pna, recurrent fever and increased leukocytosis Plan: -BiPAP 15/8 continuous, will move to ICU for intubation -aggressive pulmonary hygiene with duonebs/mucomyst/suctioning q4 -chest PT R lung -may need bronchoscopy -monitor volumes -monitor renal function -abx per ID, reculture Time: 50 min case d/w RN Subjective ROS Limited/Unobtainable: Yes Interval Events: Desaturating on BiPAP. CXR with complete collapse of right lung. Allergies: Coded Allergies: Mushroom (Verified Allergy, Severe, 05/28/18) MORPHINE (Unverified Allergy, Intermediate, Itching, 01/04/15) PENICILLINS (Unverified Allergy, Intermediate, Hives, 01/04/15) CELECOXIB (Verified Allergy, Mild, 01/15/09) Objective Last 24 Hour Vital Signs Date Time Temp Pulse Resp B/P (MAP) Pulse Ox O2 Delivery O2 Flow Rate FiO2 06/16/18 14:07 92 17 92 Bi-pap 100 06/16/18 14:07 91 16 92 Full Face 100 06/16/18 13:56 96 22 89 Bi-pap 100 06/16/18 13:55 91 16 91 Bi-pap 100 06/16/18 12:50 90 16 92 Full Face 100 06/16/18 12:00 100 06/16/18 12:00 Bi-pap 60.0 Bi-pap Bi-pap 06/16/18 11:20 165 143/67 06/16/18 11:15 96 31 92 Full Face 100 06/16/18 11:15 96 31 92 Bi-pap 100 06/16/18 11:02 88 30 92 Bi-pap 100 06/16/18 10:09 73 143/67 06/16/18 09:20 90 100 06/16/18 08:40 72 35 92 Full Face 60 06/16/18 08:00 98.7 73 27 143/67 (92) 96 06/16/18 08:00 Bi-pap 60.0 Bi-pap Bi-pap 06/16/18 08:00 60 06/16/18 08:00 116 06/16/18 07:15 89 28 97 Bi-pap 60 06/16/18 07:15 89 28 95 Full Face 60 06/16/18 07:03 61 11 95 Bi-pap 60 06/16/18 05:15 114 30 95 Full Face 60 06/16/18 04:00 98.1 109 26 121/85 (97) 94 06/16/18 04:00 Bi-pap 60.0 Bi-pap Bi-pap 06/16/18 04:00 60 06/16/18 03:40 100 27 96 Bi-pap 60 06/16/18 03:30 100 25 96 Full Face 60 06/16/18 03:30 98 18 95 Bi-pap 60 06/16/18 03:20 111 06/16/18 01:31 71 27 97 Full Face 60 06/16/18 00:00 Bi-pap 60.0 Bi-pap Bi-pap 06/16/18 00:00 99.3 102 28 149/73 (98) 97 06/15/18 23:30 84 30 95 Bi-pap 60 06/15/18 23:24 125 06/15/18 23:14 74 30 97 Full Face 60 06/15/18 23:14 111 22 96 Bi-pap 60 06/15/18 20:00 60 06/15/18 20:00 Bi-pap 60.0 Bi-pap Bi-pap 06/15/18 20:00 99.1 104 34 110/78 (89) 98 06/15/18 19:44 119 06/15/18 18:50 75 26 96 Full Face 55 06/15/18 17:42 117 141/68 06/15/18 16:58 117 32 94 Full Face 60 06/15/18 16:52 92 28 94 Bi-pap 60 06/15/18 16:42 109 22 95 Bi-pap 60 06/15/18 16:00 60 06/15/18 16:00 116 06/15/18 16:00 98.9 104 35 141/68 (92) 96 06/15/18 16:00 Bi-pap Bi-pap Bi-pap Intake and Output 06/15/18 06/16/18 19:00 07:00 Intake Total 400 ml 270 ml Output Total 300 ml 450 ml Balance 100 ml -180 ml IV Total 400 ml 270 ml Output Urine Total 300 ml 450 ml General Appearance: other - Distress on BiPAP Respiratory/Chest: other - absent breath sounds on right Cardiovascular: normal rate Abdomen: soft, non tender Extremities: no edema Microbiology Date/Time Source Procedure Growth Status 06/15/18 17:30 Sputum Gram Stain - Final Resulted 06/15/18 17:30 Sputum Sputum Culture Pending Resulted 06/15/18 17:30 Indwelling Cath Urine Culture - Preliminary NO GROWTH Resulted Laboratory Tests 06/15/18 17:30: Urine Color Yellow, Urine Appearance Cloudy, Urine pH 5, Urine Specific [place] 1.010, Urine Protein 3+H, Urine Glucose (UA) Negative, Urine Ketones Negative, Urine Blood 4+H, Urine Nitrite Negative, Urine Bilirubin Negative, Urine Urobilinogen Normal, Urine Leukocyte Esterase 2+H, Urine RBC 5-10H, Urine WBC 10 -15H, Urine Squamous Epithelial Cells Few, Urine Amorphous Sediment ManyH, Urine Bacteria ModerateH, Urine Yeast ManyH 06/16/18 05:00: White Blood Count 22.2*H, Red Blood Count 4.95, Hemoglobin 11.4L, Hematocrit 36.4L, Mean Corpuscular Volume 73L, Mean Corpuscular Hemoglobin 23.0L, Mean Corpuscular Hemoglobin Concent 31.3L, Red Cell Distribution Width 17.8H, Platelet Count 409, Mean Platelet Volume 7.5, Neutrophils (%) (Auto) , Lymphocytes (%) (Auto) , Monocytes (%) (Auto) , Eosinophils (%) (Auto) , Basophils (%) (Auto) , Differential Total Cells Counted 100, Neutrophils % ( Manual) 86H, Lymphocytes % (Manual) 7L, Monocytes % (Manual) 4, Eosinophils % ( Manual) 3, Basophils % (Manual) 0, Band Neutrophils 0, Platelet Estimate Adequate, Platelet Morphology Normal, Hypochromasia 1+, Anisocytosis 1+, Microcytosis 1+, Sodium Level 143, Potassium Level 4.4, Chloride Level 105, Carbon Dioxide Level 28, Anion Gap 10, Blood Urea Nitrogen 51H, Creatinine 2.5H , Estimat Glomerular Filtration Rate , Glucose Level 111H, Calcium Level 9.8, Total Bilirubin 0.6, Direct Bilirubin 0.2, Aspartate Amino Transf (AST/SGOT) 17 , Alanine Aminotransferase (ALT/SGPT) 27, Alkaline Phosphatase 112, C-Reactive Protein, Quantitative 45.0H, Total Protein 7.4, Albumin 2.5L Current Medications Medications (Trade) Dose Ordered Sig/Ann Route PRN Reason Start Time Stop Time Status Last Admin Dose Admin Acetaminophen (Tylenol) 650 mg Q4H PRN ORAL Mild Pain/Temp > 100.5 06/12/18 18:00 06/27/18 17:59 06/15/18 11:48 Acetylcysteine (Mucomyst) 100 mg Q4HRT HHN 06/12/18 19:00 07/09/18 21:29 06/16/18 13:55 Albuterol/ Ipratropium (Albuterol/ Ipratropium) 3 ml Q4H PRN HHN Shortness of Breath 06/14/18 23:45 06/19/18 23:44 06/16/18 13:56 Amiodarone HCl (Cordarone) 100 mg DAILY ORAL 06/13/18 09:00 06/30/18 08:59 06/16/18 10:09 Amlodipine Besylate (Norvasc) 5 mg BID ORAL 06/12/18 18:00 06/27/18 08:59 06/16/18 10:09 Cefepime HCl 1 gm/ Dextrose 55 ml @ 110 mls/hr Q24H IV 06/13/18 09:00 06/17/18 23:59 06/16/18 10:08 Chlorhexidine Gluconate (Myra-Hex 2%) 1 applic DAILY@2000 TOPIC 06/12/18 20:00 07/02/18 19:59 06/15/18 21:03 Dextrose/ Electrolytes 1,000 ml @ 75 mls/hr [id number] IV 06/16/18 09:45 06/16/18 17:59 06/16/18 10:17 Dextrose/ Electrolytes 1,000 ml @ 75 mls/hr [id number] IV 06/16/18 18:00 07/16/18 17:59 Haloperidol Lactate (Haldol) 5 mg Q6H PRN IM Agitation 06/12/18 18:15 07/08/18 12:14 Heparin Sodium (Porcine) (Heparin 5000 units/ml) 5,000 units EVERY 12 HOURS SUBQ 06/12/18 21:00 06/27/18 08:59 06/16/18 10:12 Lorazepam (Ativan 2mg/ml 1ml) 0.5 mg Q3H PRN IV For Anxiety 06/12/18 18:15 06/18/18 15:11 Metoprolol Tartrate (Lopressor) 5 mg Q6H PRN IVP SBP > 125 06/16/18 11:14 07/16/18 11:13 06/16/18 11:20 Nitroglycerin (Ntg) 0.4 mg Q5M PRN SL Prn Chest Pain 06/12/18 17:45 06/27/18 13:29 Ondansetron HCl (Zofran) 4 mg Q6H PRN IVP Nausea & Vomiting 06/12/18 18:00 06/27/18 17:59 Pantoprazole (Protonix) 40 mg DAILY IV 06/13/18 09:00 07/03/18 08:59 06/16/18 10:17 Polyethylene Glycol (Miralax) 17 gm BEDTIME ORAL 06/12/18 21:00 07/06/18 20:59 06/15/18 21:04 Polyethylene Glycol (Miralax) 17 gm DAILYPRN PRN ORAL Constipation 06/12/18 18:00 07/12/18 17:59 Quetiapine Fumarate (SEROquel) 25 mg Q6H PRN ORAL For Anxiety 06/12/18 18:00 06/29/18 17:59 06/16/18 10:20 Vancomycin HCl (Vanco rx to dose) 1 ea DAILY PRN MISC Per rx protocol 06/12/18 18:00 07/12/18 17:59 Vancomycin HCl 750 mg/Sodium Chloride 275 ml @ 183.333 mls/hr Q48H IVPB 06/12/18 16:00 06/17/18 15:59 06/14/18 16:33 Varinder De Souza MD Jun 16, 2018 15:13
--- NOTE | 2018-06-16 15:22 | Infectious Diseases Prog Note ---
Assessment/Plan Assessment/Plan 87 yo feamle with PMHx of COPD, HTN, and A.fib sent to the ED from her nuring home for SOB. Sepsis - Likely PNA 06/15 CXR: Increasing opacification right hemithorax, likely reflecting increasing pleural fluid but may also reflect increasing pulmonary parenchymal consolidation 06/14 CXR: Diffuse right lung hazy opacity appears similar to the prior exam. 06/12 CXR: : Hazy opacification of the right hemithorax, likely reflecting pleural fluid, is unchanged. 05/28/18 CXR with atalectasis vs consolidation in the right side. 06/01/18 CXR - Extensive right hemithorax opacification UA (-) Sputum Cx 05/28/18 - MRSA (Inf Neg) Urine legionella (-) R lung collapse: -06/16 CXR: Complete opacification of the right hemithorax. Probably due to complete atelectasis of the right lung, with evidence of abrupt occlusion of the rightmainstem bronchus. Given findings on prior chest radiographs, there is probablysignificant component of pleural effusion as well. Positive blood Cx - Likely contaminant BCx 05/28/18 - CoNS BCX 05/30/18 - NGTD Leukocytosis 15 on admit - now recurrent mild leukocytosis Febrile to 101.5 - now resolved COPD CAD A. fib Extubated 06/11/18 PLAN - Switch Cefepime #20 to Meropenem given rise in WBC and pending repeat cultures -Continue vancomycin #20/21 - Monitor CBC and Temps -f/u Repaeat cultures, Cdiff -CBC, CMP am We will continue to follow Ms. Nowak during this hospitalization. Subjective Allergies: Coded Allergies: Mushroom (Verified Allergy, Severe, 05/28/18) MORPHINE (Unverified Allergy, Intermediate, Itching, 01/04/15) PENICILLINS (Unverified Allergy, Intermediate, Hives, 01/04/15) CELECOXIB (Verified Allergy, Mild, 01/15/09) Subjective afebrile in ~24hrs wbc jumped to the 20s R lung collapse likely to mucous plugging- pln for intubation and transfer to ICU Objective Vital Signs Last 24 Hour Vital Signs Date Time Temp Pulse Resp B/P (MAP) Pulse Ox O2 Delivery O2 Flow Rate FiO2 06/16/18 14:07 92 17 92 Bi-pap 100 06/16/18 14:07 91 16 92 Full Face 100 06/16/18 13:56 96 22 89 Bi-pap 100 06/16/18 13:55 91 16 91 Bi-pap 100 06/16/18 12:50 90 16 92 Full Face 100 06/16/18 12:00 100 06/16/18 12:00 Bi-pap 60.0 Bi-pap Bi-pap 06/16/18 11:20 165 143/67 06/16/18 11:15 96 31 92 Full Face 100 06/16/18 11:15 96 31 92 Bi-pap 100 06/16/18 11:02 88 30 92 Bi-pap 100 06/16/18 10:09 73 143/67 06/16/18 09:20 90 100 06/16/18 08:40 72 35 92 Full Face 60 06/16/18 08:00 98.7 73 27 143/67 (92) 96 06/16/18 08:00 Bi-pap 60.0 Bi-pap Bi-pap 06/16/18 08:00 60 06/16/18 08:00 116 06/16/18 07:15 89 28 97 Bi-pap 60 06/16/18 07:15 89 28 95 Full Face 60 06/16/18 07:03 61 11 95 Bi-pap 60 06/16/18 05:15 114 30 95 Full Face 60 06/16/18 04:00 98.1 109 26 121/85 (97) 94 06/16/18 04:00 Bi-pap 60.0 Bi-pap Bi-pap 06/16/18 04:00 60 06/16/18 03:40 100 27 96 Bi-pap 60 06/16/18 03:30 100 25 96 Full Face 60 06/16/18 03:30 98 18 95 Bi-pap 60 06/16/18 03:20 111 06/16/18 01:31 71 27 97 Full Face 60 06/16/18 00:00 Bi-pap 60.0 Bi-pap Bi-pap 06/16/18 00:00 99.3 102 28 149/73 (98) 97 06/15/18 23:30 84 30 95 Bi-pap 60 06/15/18 23:24 125 06/15/18 23:14 74 30 97 Full Face 60 06/15/18 23:14 111 22 96 Bi-pap 60 06/15/18 20:00 60 06/15/18 20:00 Bi-pap 60.0 Bi-pap Bi-pap 06/15/18 20:00 99.1 104 34 110/78 (89) 98 06/15/18 19:44 119 06/15/18 18:50 75 26 96 Full Face 55 06/15/18 17:42 117 141/68 06/15/18 16:58 117 32 94 Full Face 60 06/15/18 16:52 92 28 94 Bi-pap 60 06/15/18 16:42 109 22 95 Bi-pap 60 06/15/18 16:00 60 06/15/18 16:00 116 06/15/18 16:00 98.9 104 35 141/68 (92) 96 06/15/18 16:00 Bi-pap Bi-pap Bi-pap Height (Feet): 5 Height (Inches): 4.00 Weight (Pounds): 127 Objective General Appearance: no apparent distress, other - on bipap Neck: supple Cardiovascular: normal rate Respiratory/Chest: lungs clear Abdomen: normal bowel sounds, non tender, soft Extremities: trace edema Microbiology Date/Time Source Procedure Growth Status 06/15/18 17:30 Sputum Gram Stain - Final Resulted 06/15/18 17:30 Sputum Sputum Culture Pending Resulted 06/15/18 17:30 Indwelling Cath Urine Culture - Preliminary NO GROWTH Resulted Laboratory Tests Test 06/15/18 17:30 06/16/18 05:00 Urine Color Yellow Urine Appearance Cloudy Urine pH 5 (4.5-8.0) Urine Specific [place] 1.010 (1.005-1.035) Urine Protein 3+ (NEGATIVE) H Urine Glucose (UA) Negative (NEGATIVE) Urine Ketones Negative (NEGATIVE) Urine Blood 4+ (NEGATIVE) H Urine Nitrite Negative (NEGATIVE) Urine Bilirubin Negative (NEGATIVE) Urine Urobilinogen Normal MG/DL (0.0-1.0) Urine Leukocyte Esterase 2+ (NEGATIVE) H Urine RBC 5-10 /HPF (0 - 2) H Urine WBC 10-15 /HPF (0 - 2) H Urine Squamous Epithelial Cells Few /LPF (NONE/OCC) Urine Amorphous Sediment Many /LPF (NONE) H Urine Bacteria Moderate /HPF (NONE) H Urine Yeast Many /HPF (NONE) H White Blood Count 22.2 K/UL (4.8-10.8) *H Red Blood Count 4.95 M/UL (4.20-5.40) Hemoglobin 11.4 G/DL (12.0-16.0) L Hematocrit 36.4 % (37.0-47.0) L Mean Corpuscular Volume 73 FL (80-99) L Mean Corpuscular Hemoglobin 23.0 PG (27.0-31.0) L Mean Corpuscular Hemoglobin Concent 31.3 G/DL (32.0-36.0) L Red Cell Distribution Width 17.8 % (11.6-14.8) H Platelet Count 409 K/UL (150-450) Mean Platelet Volume 7.5 FL (6.5-10.1) Neutrophils (%) (Auto) % (45.0-75.0) Lymphocytes (%) (Auto) % (20.0-45.0) Monocytes (%) (Auto) % (1.0-10.0) Eosinophils (%) (Auto) % (0.0-3.0) Basophils (%) (Auto) % (0.0-2.0) Differential Total Cells Counted 100 Neutrophils % (Manual) 86 % (45-75) H Lymphocytes % (Manual) 7 % (20-45) L Monocytes % (Manual) 4 % (1-10) Eosinophils % (Manual) 3 % (0-3) Basophils % (Manual) 0 % (0-2) Band Neutrophils 0 % (0-8) Platelet Estimate Adequate Platelet Morphology Normal Hypochromasia 1+ Anisocytosis 1+ Microcytosis 1+ Sodium Level 143 MMOL/L (136-145) Potassium Level 4.4 MMOL/L (3.5-5.1) Chloride Level 105 MMOL/L (98-107) Carbon Dioxide Level 28 MMOL/L (21-32) Anion Gap 10 mmol/L (5-15) Blood Urea Nitrogen 51 mg/dL (7-18) H Creatinine 2.5 MG/DL (0.55-1.30) H Estimat Glomerular Filtration Rate mL/min (>60) Glucose Level 111 MG/DL (74-106) H Calcium Level 9.8 MG/DL (8.5-10.1) Total Bilirubin 0.6 MG/DL (0.2-1.0) Direct Bilirubin 0.2 MG/DL (0.0-0.3) Aspartate Amino Transf (AST/SGOT) 17 U/L (15-37) Alanine Aminotransferase (ALT/SGPT) 27 U/L (12-78) Alkaline Phosphatase 112 U/L (46-116) C-Reactive Protein, Quantitative 45.0 mg/dL (0.00-0.90) H Total Protein 7.4 G/DL (6.4-8.2) Albumin 2.5 G/DL (3.4-5.0) L Current Medications Medications (Trade) Dose Ordered Sig/Ann Route PRN Reason Start Time Stop Time Status Last Admin Dose Admin Acetaminophen (Tylenol) 650 mg Q4H PRN ORAL Mild Pain/Temp > 100.5 06/12/18 18:00 06/27/18 17:59 06/15/18 11:48 Acetylcysteine (Mucomyst) 100 mg Q4HRT HHN 06/12/18 19:00 07/09/18 21:29 06/16/18 13:55 Albuterol/ Ipratropium (Albuterol/ Ipratropium) 3 ml Q4H PRN HHN Shortness of Breath 06/14/18 23:45 06/19/18 23:44 06/16/18 13:56 Amiodarone HCl (Cordarone) 100 mg DAILY ORAL 06/13/18 09:00 06/30/18 08:59 06/16/18 10:09 Amlodipine Besylate (Norvasc) 5 mg BID ORAL 06/12/18 18:00 06/27/18 08:59 06/16/18 10:09 Cefepime HCl 1 gm/ Dextrose 55 ml @ 110 mls/hr Q24H IV 06/13/18 09:00 06/17/18 23:59 06/16/18 10:08 Chlorhexidine Gluconate (Myra-Hex 2%) 1 applic DAILY@2000 TOPIC 06/12/18 20:00 07/02/18 19:59 06/15/18 21:03 Dextrose/ Electrolytes 1,000 ml @ 75 mls/hr [id number] IV 06/16/18 09:45 06/16/18 17:59 06/16/18 10:17 Dextrose/ Electrolytes 1,000 ml @ 75 mls/hr [id number] IV 06/16/18 18:00 07/16/18 17:59 Haloperidol Lactate (Haldol) 5 mg Q6H PRN IM Agitation 06/12/18 18:15 07/08/18 12:14 Heparin Sodium (Porcine) (Heparin 5000 units/ml) 5,000 units EVERY 12 HOURS SUBQ 06/12/18 21:00 06/27/18 08:59 06/16/18 10:12 Lorazepam (Ativan 2mg/ml 1ml) 0.5 mg Q3H PRN IV For Anxiety 06/12/18 18:15 06/18/18 15:11 Metoprolol Tartrate (Lopressor) 5 mg Q6H PRN IVP SBP > 125 06/16/18 11:14 07/16/18 11:13 06/16/18 11:20 Nitroglycerin (Ntg) 0.4 mg Q5M PRN SL Prn Chest Pain 06/12/18 17:45 06/27/18 13:29 Ondansetron HCl (Zofran) 4 mg Q6H PRN IVP Nausea & Vomiting 06/12/18 18:00 06/27/18 17:59 Pantoprazole (Protonix) 40 mg DAILY IV 06/13/18 09:00 07/03/18 08:59 06/16/18 10:17 Polyethylene Glycol (Miralax) 17 gm BEDTIME ORAL 06/12/18 21:00 07/06/18 20:59 06/15/18 21:04 Polyethylene Glycol (Miralax) 17 gm DAILYPRN PRN ORAL Constipation 06/12/18 18:00 07/12/18 17:59 Quetiapine Fumarate (SEROquel) 25 mg Q6H PRN ORAL For Anxiety 06/12/18 18:00 06/29/18 17:59 06/16/18 10:20 Vancomycin HCl (Vanco rx to dose) 1 ea DAILY PRN MISC Per rx protocol 06/12/18 18:00 07/12/18 17:59 Vancomycin HCl 750 mg/Sodium Chloride 275 ml @ 183.333 mls/hr Q48H IVPB 06/12/18 16:00 06/17/18 15:59 06/14/18 16:33 Natty Hernandes M.D. Jun 16, 2018 15:22
--- NOTE | 2018-06-16 15:45 | NUR ---
RESPIRATORY NOTE: Intubated per Dr. Montgomery with ETT 7.5 at 23cm lips line at 1540, secure by anchor fast.. Vent setting: AC 20- 450ml-100% FiO2- peep of 5. Chicho rales rhonchi breath sounds heard upon auscultation, sxn large amount of thick yellow green secretions with no incidents. Alarms are on and audible, vent is plugged into the red outlet, ambu bag is at bedside. ABG at 1630. Pt is resting in the bed, tachypneic RR 30bpm, high peep 40-46, tachy cardia HR>[address] bpm[address] Bite block in place to prevent biting the tube. Vent circuits and sxn tubing are secure and out of the way. Will continue to monitor pt.
--- NOTE | 2018-06-16 16:00 | NUR ---
NURSE NOTES: Received patient in respiratory distress, patient intubated at bedside. Vent settings obtained from Dr. De Souza. Lung sounds diminished. Stat cxr obtained. R upper arm PICC. Fluids continued per MD order. bilateral restraints remain on. Observed pulling on device. Will continue to monitor patient.
--- NOTE | 2018-06-16 17:17 | Emergency Room Report ---
Physical Exam Called to intubate the patient. R infiltrate with hypoxia. Has been intubated in the past. Last 24 Hour Vital Signs Date Time Temp Pulse Resp B/P (MAP) Pulse Ox O2 Delivery O2 Flow Rate FiO2 06/16/18 17:00 110 22 128/60 (82) 100 06/16/18 16:53 110 22 100 06/16/18 16:00 Bi-pap 60.0 Bi-pap Bi-pap 06/16/18 16:00 110 06/16/18 16:00 100 06/16/18 16:00 98.4 112 22 122/58 (79) 100 06/16/18 15:40 116 30 100 06/16/18 15:40 100 06/16/18 14:07 92 17 92 Bi-pap 100 06/16/18 14:07 91 16 92 Full Face 100 06/16/18 13:56 96 22 89 Bi-pap 100 06/16/18 13:55 91 16 91 Bi-pap 100 06/16/18 12:50 90 16 92 Full Face 100 06/16/18 12:00 97.7 88 27 115/54 (74) 94 06/16/18 12:00 100 06/16/18 12:00 91 06/16/18 12:00 Bi-pap 60.0 Bi-pap Bi-pap 06/16/18 11:20 165 143/67 06/16/18 11:15 96 31 92 Full Face 100 06/16/18 11:15 96 31 92 Bi-pap 100 06/16/18 11:02 88 30 92 Bi-pap 100 06/16/18 10:09 73 143/67 06/16/18 09:20 90 100 06/16/18 08:40 72 35 92 Full Face 60 06/16/18 08:00 98.7 73 27 143/67 (92) 96 06/16/18 08:00 Bi-pap 60.0 Bi-pap Bi-pap 06/16/18 08:00 60 06/16/18 08:00 116 06/16/18 07:15 89 28 97 Bi-pap 60 06/16/18 07:15 89 28 95 Full Face 60 06/16/18 07:03 61 11 95 Bi-pap 60 06/16/18 05:15 114 30 95 Full Face 60 06/16/18 04:00 98.1 109 26 121/85 (97) 94 06/16/18 04:00 Bi-pap 60.0 Bi-pap Bi-pap 06/16/18 04:00 60 06/16/18 03:40 100 27 96 Bi-pap 60 06/16/18 03:30 100 25 96 Full Face 60 06/16/18 03:30 98 18 95 Bi-pap 60 06/16/18 03:20 111 06/16/18 01:31 71 27 97 Full Face 60 06/16/18 00:00 Bi-pap 60.0 Bi-pap Bi-pap 06/16/18 00:00 99.3 102 28 149/73 (98) 97 06/15/18 23:30 84 30 95 Bi-pap 60 06/15/18 23:24 125 06/15/18 23:14 74 30 97 Full Face 60 06/15/18 23:14 111 22 96 Bi-pap 60 06/15/18 20:00 60 06/15/18 20:00 Bi-pap 60.0 Bi-pap Bi-pap 06/15/18 20:00 99.1 104 34 110/78 (89) 98 06/15/18 19:44 119 06/15/18 18:50 75 26 96 Full Face 55 06/15/18 17:42 117 141/68 Sp02 EP Interpretation: reviewed, normal General Appearance: lethargic, Chronically Ill Head: normocephalic, atraumatic Eyes: bilateral eye PERRL ENT: dry mucus membranes Neck: supple Respiratory: decreased breath sounds, other - Poor tidal volume Cardiovascular #1: tachycardia Gastrointestinal: decreased bowel sounds Neurologic: other Psychiatric: other - Unresponsive to painful stimuli Skin: pallor, cyanosis Intubation Intubation : Consent: Emergent Intubation Method: orotracheal Tube Size (cm): 7.5 Medications: Etomidate Breath Sounds after Intubation: equal Intubation Complications: no complications Post Intubation Xray: Yes Attempts: One Patient Tolerated: Well Complications: None Progress copious secretions post intubation Medical Decision Making Diagnostic Impression: Primary Impression: Respiratory failure Qualified Codes: J96.02 - Acute respiratory failure with hypercapnia Additional Impression: Pneumonia involving right lung Qualified Codes: J18.9 - Pneumonia, unspecified organism ER Course Patient with continued hypoxia with evidence of right-sided infiltrates. Patient intubated with 10 mg of etomidate. Copious secretions after a period tolerated well. Discussed with implementation specialist need for breathing treatments. Also discussed ventilator settings and chest x-ray. Laboratory Tests Test 06/15/18 03:00 06/15/18 14:08 06/15/18 17:30 06/16/18 05:00 White Blood Count 16.6 K/UL (4.8-10.8) H 22.2 K/UL (4.8-10.8) *H Red Blood Count 5.01 M/UL (4.20-5.40) 4.95 M/UL (4.20-5.40) Hemoglobin 11.4 G/DL (12.0-16.0) L 11.4 G/DL (12.0-16.0) L Hematocrit 37.4 % (37.0-47.0) 36.4 % (37.0-47.0) L Mean Corpuscular Volume 75 FL (80-99) L 73 FL (80-99) L Mean Corpuscular Hemoglobin 22.7 PG (27.0-31.0) L 23.0 PG (27.0-31.0) L Mean Corpuscular Hemoglobin Concent 30.4 G/DL (32.0-36.0) L 31.3 G/DL (32.0-36.0) L Red Cell Distribution Width 18.1 % (11.6-14.8) H 17.8 % (11.6-14.8) H Platelet Count 443 K/UL (150-450) 409 K/UL (150-450) Mean Platelet Volume 7.1 FL (6.5-10.1) 7.5 FL (6.5-10.1) Neutrophils (%) (Auto) % (45.0-75.0) % (45.0-75.0) Lymphocytes (%) (Auto) % (20.0-45.0) % (20.0-45.0) Monocytes (%) (Auto) % (1.0-10.0) % (1.0-10.0) Eosinophils (%) (Auto) % (0.0-3.0) % (0.0-3.0) Basophils (%) (Auto) % (0.0-2.0) % (0.0-2.0) Differential Total Cells Counted 100 100 Neutrophils % (Manual) 86 % (45-75) H 86 % (45-75) H Lymphocytes % (Manual) 4 % (20-45) L 7 % (20-45) L Monocytes % (Manual) 8 % (1-10) 4 % (1-10) Eosinophils % (Manual) 2 % (0-3) 3 % (0-3) Basophils % (Manual) 0 % (0-2) 0 % (0-2) Band Neutrophils 0 % (0-8) 0 % (0-8) Platelet Estimate Adequate Adequate Platelet Morphology Normal Normal Hypochromasia 1+ 1+ Anisocytosis 1+ 1+ Microcytosis 1+ 1+ Sodium Level 145 MMOL/L (136-145) 143 MMOL/L (136-145) Potassium Level 3.5 MMOL/L (3.5-5.1) 4.4 MMOL/L (3.5-5.1) Chloride Level 105 MMOL/L (98-107) 105 MMOL/L (98-107) Carbon Dioxide Level 30 MMOL/L (21-32) 28 MMOL/L (21-32) Anion Gap 10 mmol/L (5-15) 10 mmol/L (5-15) Blood Urea Nitrogen 41 mg/dL (7-18) H 51 mg/dL (7-18) H Creatinine 1.9 MG/DL (0.55-1.30) H 2.5 MG/DL (0.55-1.30) H Estimate Glomerular Filtration Rate mL/min (>60) mL/min (>60) Glucose Level 136 MG/DL (74-106) H 111 MG/DL (74-106) H Calcium Level 9.5 MG/DL (8.5-10.1) 9.8 MG/DL (8.5-10.1) Pro-B-Type Natriuretic Peptide 2721 pg/mL (0-125) H Arterial Blood pH 7.419 (7.350-7.450) Arterial Blood Partial Pressure CO2 51.8 mmHg (35.0-45.0) H Arterial Blood Partial Pressure O2 64.6 mmHg (75.0-100.0) L Arterial Blood HCO3 32.8 mmol/L (22.0-26.0) H Arterial Blood Oxygen Saturation 94.1 % (95-100) L Arterial Blood Base Excess 7.0 (-2-2) H David Test Positive Urine Color Yellow Urine Appearance Cloudy Urine pH 5 (4.5-8.0) Urine Specific [place] 1.010 (1.005-1.035) Urine Protein 3+ (NEGATIVE) H Urine Glucose (UA) Negative (NEGATIVE) Urine Ketones Negative (NEGATIVE) Urine Blood 4+ (NEGATIVE) H Urine Nitrite Negative (NEGATIVE) Urine Bilirubin Negative (NEGATIVE) Urine Urobilinogen Normal MG/DL (0.0-1.0) Urine Leukocyte Esterase 2+ (NEGATIVE) H Urine RBC 5-10 /HPF (0 - 2) H Urine WBC 10-15 /HPF (0 - 2) H Urine Squamous Epithelial Cells Few /LPF (NONE/OCC) Urine Amorphous Sediment Many /LPF (NONE) H Urine Bacteria Moderate /HPF (NONE) H Urine Yeast Many /HPF (NONE) H Total Bilirubin 0.6 MG/DL (0.2-1.0) Direct Bilirubin 0.2 MG/DL (0.0-0.3) Aspartate Amino Transferase (AST) 17 U/L (15-37) Alanine Aminotransferase (ALT) 27 U/L (12-78) Alkaline Phosphatase 112 U/L (46-116) C-Reactive Protein, Quantitative 45.0 mg/dL (0.00-0.90) H Total Protein 7.4 G/DL (6.4-8.2) Albumin 2.5 G/DL (3.4-5.0) L Test 06/16/18 15:00 06/16/18 16:40 Vancomycin Level Trough 19.3 ug/mL (5.0-12.0) H Arterial Blood pH 7.345 (7.350-7.450) Arterial Blood Partial Pressure CO2 53.4 mmHg (35.0-45.0) H Arterial Blood Partial Pressure O2 293.1 mmHg (75.0-100.0) H Arterial Blood HCO3 28.4 mmol/L (22.0-26.0) H Arterial Blood Oxygen Saturation 99.3 % (95-100) Arterial Blood Base Excess 1.8 (-2-2) David Test Positive Rhythm Strip Diag. Results EP Interpretation: yes Rhythm: NSR, no PVC's, no ectopy Chest X-Ray Diagnostic Results Chest X-Ray Diagnostic Results : Chest X-Ray Ordered: Yes # of Views/Limited/Complete: 1 View Indication: Other EP Interpretation: Yes Interpretation: no effusion, no pneumothorax, other - ET OK and R infiltrates, PICC and NG Last Vital Signs Date Time Temp Pulse Resp B/P (MAP) Pulse Ox O2 Delivery O2 Flow Rate FiO2 06/16/18 17:00 110 22 128/60 (82) 100 06/16/18 16:53 100 06/16/18 16:00 Bi-pap 60.0 Bi-pap Bi-pap 06/16/18 16:00 98.4 Status: improved Disposition: SNF Condition: Critical Referrals: GAY HERNANDEZ (PCP) Clint Montgomery MD Jun 16, 2018 17:16
--- NOTE | 2018-06-16 17:27 | Diagnostic Imaging Report ---
Indication: Post intubation Technique: One view of the chest Comparison: 6 hours earlier Findings: Interim endotracheal intubation, endotracheal tube tip projecting approximately 3 cm above the genet. Interim reexpansion of previously atelectatic right lung. There is considerable interstitial and airspace disease throughout the lung, however. The left lung and bilateral pleural spaces remain clear. The heart size is normal. Stable satisfactory position of nasogastric tube and right arm PICC Impression: Satisfactory endotracheal intubation Interim reexpansion of previously demonstrated atelectatic right lung. Persistent parenchymal opacities may reflect underlying pre-existing pulmonary edema, infiltrates, or could indicate reexpansion pulmonary edema
[2018-06-16] MEDS ORDERED: Meropenem 500 MG in NS 55 ML IVPB SCH (18:00)
[2018-06-16] MEDS ORDERED: Vancomycin 750mg/NS 275ml IVPB SCH ×2 (18:00)
--- NOTE | 2018-06-16 18:00 | NUR ---
NURSE NOTES: Patient turned and repositioned. No new orders. Will continue plan of care. VSS.
[2018-06-16] MEDS: D5 1/2NS w/KCl 20mEq 1,000 ML IV SCH (19:00)
[2018-06-16] MEDS ORDERED: Haloperidol 5mg/ml Inj IM PRN (19:20)
[2018-06-16] MEDS ORDERED: Nitroglycerin Subl 0.4mg tab SL PRN (19:20)
[2018-06-16] MEDS ORDERED: Miralax 17gm pkt ORAL PRN (19:21)
--- NOTE | 2018-06-16 19:30 | NUR ---
NURSE NOTES: Received report from Carlie RN. patient in bed resting no moaning no facial grimaces. HOB elevated. ETT 7.5/23cm AC20,TV 450,Fi02 100% peep 5. NPO, R NGT intact. Sinclair draining. On P200 for wound management. Contact isolation maintained and observed. Bed alarm on. Bed locked and in low position. MILY PICC intact running D5 1/2 NS with KCL 20mEq at 75CC/hr. Will continue plan of care.
--- NOTE | 2018-06-16 20:12 | Cardiology Progress Note ---
Assessment/Plan Assessment/Plan COPD, congestive heart failure, atrial fibrillation sinus tachy agitation right lung collapse? anemia pleural effusion respirator failure tachy tele sinus with atrail tachy vent suppor t abx pulm rxn may need pressors if bp drops cxr showed improved blood cx previoously neg beta evelyn iv or vial ngt d/w rn earlier over all poor prognosis increase amiod to 200 mg bid for a few days dc norvasc if needed can use cardizem Subjective ROS Limited/Unobtainable: Yes Subjective in icu on vent in isolation Objective Last 24 Hour Vital Signs Date Time Temp Pulse Resp B/P (MAP) Pulse Ox O2 Delivery O2 Flow Rate FiO2 06/16/18 19:45 105 20 60 06/16/18 19:00 112 20 108/55 (72) 100 06/16/18 18:00 103 20 105/48 (67) 100 06/16/18 18:00 80 105/55 06/16/18 17:00 110 22 128/60 (82) 100 06/16/18 16:53 110 22 100 06/16/18 16:00 Bi-pap 60.0 Bi-pap Bi-pap 06/16/18 16:00 110 06/16/18 16:00 100 06/16/18 16:00 98.4 112 22 122/58 (79) 100 06/16/18 15:40 116 30 100 06/16/18 15:40 100 06/16/18 14:07 92 17 92 Bi-pap 100 06/16/18 14:07 91 16 92 Full Face 100 06/16/18 13:56 96 22 89 Bi-pap 100 06/16/18 13:55 91 16 91 Bi-pap 100 06/16/18 12:50 90 16 92 Full Face 100 06/16/18 12:00 97.7 88 27 115/54 (74) 94 06/16/18 12:00 100 06/16/18 12:00 91 06/16/18 12:00 Bi-pap 60.0 Bi-pap Bi-pap 06/16/18 11:20 165 143/67 06/16/18 11:15 96 31 92 Full Face 100 06/16/18 11:15 96 31 92 Bi-pap 100 06/16/18 11:02 88 30 92 Bi-pap 100 06/16/18 10:09 73 143/67 06/16/18 09:20 90 100 06/16/18 08:40 72 35 92 Full Face 60 06/16/18 08:00 98.7 73 27 143/67 (92) 96 06/16/18 08:00 Bi-pap 60.0 Bi-pap Bi-pap 06/16/18 08:00 60 06/16/18 08:00 116 06/16/18 07:15 89 28 97 Bi-pap 60 06/16/18 07:15 89 28 95 Full Face 60 06/16/18 07:03 61 11 95 Bi-pap 60 06/16/18 05:15 114 30 95 Full Face 60 06/16/18 04:00 98.1 109 26 121/85 (97) 94 06/16/18 04:00 Bi-pap 60.0 Bi-pap Bi-pap 06/16/18 04:00 60 06/16/18 03:40 100 27 96 Bi-pap 60 06/16/18 03:30 100 25 96 Full Face 60 06/16/18 03:30 98 18 95 Bi-pap 60 06/16/18 03:20 111 06/16/18 01:31 71 27 97 Full Face 60 06/16/18 00:00 Bi-pap 60.0 Bi-pap Bi-pap 06/16/18 00:00 99.3 102 28 149/73 (98) 97 06/15/18 23:30 84 30 95 Bi-pap 60 06/15/18 23:24 125 06/15/18 23:14 74 30 97 Full Face 60 06/15/18 23:14 111 22 96 Bi-pap 60 General Appearance: no apparent distress, on vent, patient on isolation Neck: no JVD Cardiovascular: tachycardia, irregularly irregular Respiratory/Chest: lungs clear Abdomen: normal bowel sounds, non tender, soft Extremities: no swelling Intake and Output 06/15/18 06/16/18 19:00 07:00 Intake Total 400 ml 270 ml Output Total 300 ml 450 ml Balance 100 ml -180 ml IV Total 400 ml 270 ml Output Urine Total 300 ml 450 ml Laboratory Tests Test 06/16/18 05:00 06/16/18 15:00 06/16/18 16:40 White Blood Count 22.2 K/UL (4.8-10.8) *H Red Blood Count 4.95 M/UL (4.20-5.40) Hemoglobin 11.4 G/DL (12.0-16.0) L Hematocrit 36.4 % (37.0-47.0) L Mean Corpuscular Volume 73 FL (80-99) L Mean Corpuscular Hemoglobin 23.0 PG (27.0-31.0) L Mean Corpuscular Hemoglobin Concent 31.3 G/DL (32.0-36.0) L Red Cell Distribution Width 17.8 % (11.6-14.8) H Platelet Count 409 K/UL (150-450) Mean Platelet Volume 7.5 FL (6.5-10.1) Neutrophils (%) (Auto) % (45.0-75.0) Lymphocytes (%) (Auto) % (20.0-45.0) Monocytes (%) (Auto) % (1.0-10.0) Eosinophils (%) (Auto) % (0.0-3.0) Basophils (%) (Auto) % (0.0-2.0) Differential Total Cells Counted 100 Neutrophils % (Manual) 86 % (45-75) H Lymphocytes % (Manual) 7 % (20-45) L Monocytes % (Manual) 4 % (1-10) Eosinophils % (Manual) 3 % (0-3) Basophils % (Manual) 0 % (0-2) Band Neutrophils 0 % (0-8) Platelet Estimate Adequate Platelet Morphology Normal Hypochromasia 1+ Anisocytosis 1+ Microcytosis 1+ Sodium Level 143 MMOL/L (136-145) Potassium Level 4.4 MMOL/L (3.5-5.1) Chloride Level 105 MMOL/L (98-107) Carbon Dioxide Level 28 MMOL/L (21-32) Anion Gap 10 mmol/L (5-15) Blood Urea Nitrogen 51 mg/dL (7-18) H Creatinine 2.5 MG/DL (0.55-1.30) H Estimat Glomerular Filtration Rate mL/min (>60) Glucose Level 111 MG/DL (74-106) H Calcium Level 9.8 MG/DL (8.5-10.1) Total Bilirubin 0.6 MG/DL (0.2-1.0) Direct Bilirubin 0.2 MG/DL (0.0-0.3) Aspartate Amino Transf (AST/SGOT) 17 U/L (15-37) Alanine Aminotransferase (ALT/SGPT) 27 U/L (12-78) Alkaline Phosphatase 112 U/L (46-116) C-Reactive Protein, Quantitative 45.0 mg/dL (0.00-0.90) H Total Protein 7.4 G/DL (6.4-8.2) Albumin 2.5 G/DL (3.4-5.0) L Vancomycin Level Trough 19.3 ug/mL (5.0-12.0) H Arterial Blood pH 7.345 (7.350-7.450) Arterial Blood Partial Pressure CO2 53.4 mmHg (35.0-45.0) H Arterial Blood Partial Pressure O2 293.1 mmHg (75.0-100.0) H Arterial Blood HCO3 28.4 mmol/L (22.0-26.0) H Arterial Blood Oxygen Saturation 99.3 % (95-100) Arterial Blood Base Excess 1.8 (-2-2) David Test Positive Microbiology Date/Time Source Procedure Growth Status 06/15/18 17:30 Sputum Gram Stain - Final Resulted 06/15/18 17:30 Sputum Sputum Culture Pending Resulted 06/15/18 17:30 Indwelling Cath Urine Culture - Preliminary NO GROWTH Resulted Geoffrey Sandhu MD Jun 16, 2018 20:12
[2018-06-16] MEDS: Miralax 17gm pkt ORAL SCH (20:15)
[2018-06-16] MEDS: Dyna-Hex 2% Top Sol 2oz TOPIC SCH (20:15)
--- NOTE | 2018-06-16 21:00 | NUR ---
NURSE NOTES: CHG bath given. Repositioned. oral care done. Will continue plan of care.
--- NOTE | 2018-06-16 21:34 | NUR ---
CASE MANAGEMENT: REVIEW 06/16/2018 SI: A-FIB . CAD . COPD T 98.4 HR 112 RR 22 B/P 122/58 SATS 100% ON BIPAP FiO2 100 WBC 22.2 BUN 51 CR 2.5 GLU 111 ABGs pH 7.345 pCO2 53.4 pO2 293.1 HCO3 28.4 IS: DIAMOX PO BID ALBUTEROL HHN Q4HR MUCOMYST HHN Q4HR LASIX IV QD VANCO IV Q36HR CEFEPIME IV Q24HR AMIODARONE PO QD ICU STATUS DCP: PATIENT IS FROM [facility]
--- NOTE | 2018-06-16 22:05 | NUR ---
NURSE NOTES: Dr. De Souza called regarding patient ABG result MD with stat ABG order per MD call if PH less than 7.345 and ABG in am noted and carried out. Charge nurse aware.
--- NOTE | 2018-06-16 22:25 | NUR ---
NURSE NOTES: ABG PH 7.[address] De Souza call him if PH less than 7.345. Charge nurse aware.
[2018-06-17] VITALS (24 sets, daily range): BP systolic 80–164; BP diastolic 40–79
--- NOTE | 2018-06-17 00:25 | NUR ---
NURSE NOTES: Repositioned. No s/s of acute distress noted. ST on the monitor HR 119. On p200 for wound management. Contact isolation maintained and observed No moaning no facial grimaces. Will continue plan of care.
[2018-06-17] MEDS: D5 1/2NS w/KCl 20mEq 1,000 ML IV SCH (01:01)
--- NOTE | 2018-06-17 02:25 | NUR ---
NURSE NOTES: Repositioned. No s/s of acute distress noted. ST on the monitor HR 110. Contact isolation maintained and observed No moaning no facial grimaces. Will continue plan of care.
[2018-06-17] MEDS: Acetylcysteine 20% Soln 4ml HHN SCH ×5 (03:00→23:10)
--- NOTE | 2018-06-17 04:00 | NUR ---
NURSE NOTES: Bed bath given. Repositioned. Sinclair draining 25cc-35cc per hour. No s/s of acute distress noted. ST on the monitor HR 120. No moaning no facial grimaces. Will continue plan of care.
[2018-06-17 04:35] LABS: HEMATOCRIT 32.4 % (37.0-47.0); HEMOGLOBIN 10.1 G/DL (12.0-16.0); MEAN CORPUSCULAR VOLUME 73 FL (80-99); PLATELET COUNT 339 K/UL (150-450); RED BLOOD COUNT 4.45 M/UL (4.20-5.40); RED CELL DISTRIBUTION WIDTH 18.3 % (11.6-14.8); WHITE BLOOD COUNT 18.1 K/UL (4.8-10.8)
[2018-06-17 04:54] LABS: PHOSPHORUS 2.6 MG/DL (2.5-4.9)
[2018-06-17 05:00] LABS: ALANINE AMINOTRANSFERASE 21 U/L (12-78); ALBUMIN 2.1 G/DL (3.4-5.0); ALBUMIN/GLOBULIN RATIO 0.4 (1.0-2.7); ALKALINE PHOSPHATASE 88 U/L (46-116); ANION GAP 10 mmol/L (5-15); ASPARTATE AMINO TRANSFERASE 18 U/L (15-37); BILIRUBIN,TOTAL 0.5 MG/DL (0.2-1.0); BLOOD UREA NITROGEN 65 mg/dL (7-18); CALCIUM 8.9 MG/DL (8.5-10.1); CARBON DIOXIDE 27 MMOL/L (21-32); CHLORIDE 104 MMOL/L (98-107); CREATININE 3.7 MG/DL (0.55-1.30); POTASSIUM 4.6 MMOL/L (3.5-5.1); SODIUM 141 MMOL/L (136-145)
--- NOTE | 2018-06-17 07:00 | NUR ---
Received Patient on Vent settings ACVC RR 20, VT 450, FIO2 50%, PEEP +0. Patient intubated with 7.5 ETT at 23cm at the lip, secured with anchorfast. SX thick white frothy secretions PRN. Bilateral rhonchi heard throughout both lung simpson. Patient currently sleeping. Will continue to monitor throughout the day.
--- NOTE | 2018-06-17 07:31 | NUR ---
NURSE NOTES: RECEIVED PATIENT FROM Suyapa HUNTER RN. PATIENT IS LYING IN BED, ASLEEP. HOOKED TO BIOPHYSICS SCIENTIST. ORALLY INTUBATED ETT 7.5 AT 23CM LIP LINE, VENT SETTINGS AC 20, TV 450, FIO2 50%, PEEP 5. NO SIGNS OF CARDIO OR RESPI OF THE MOMENT. NGT IN PLACE, NO FEEDING. NOTED SKIN ALTERATION. ON P200 MATTRESS. OVIEDO CATH CONNECTED TO BAG, PATENT AND DRAINING URINE. PICC ON RIGHT UPPER ARM WITH IVF RUNNING D5 1/2 NS + 20MEQS KCL AT 175CC/HR. CALL LIGHT WITHIN REACH. SIDE RAILS UP. BED AT LOWEST POSITION. WILL CONTINUE TO MONITOR.
--- NOTE | 2018-06-17 08:40 | NUR ---
RADIOLOGY DEPT CHEST X-RAY DONE. -P.DYE
[2018-06-17] MEDS ORDERED: Amiodarone 200mg tab ORAL SCH (09:00)
--- NOTE | 2018-06-17 09:05 | NUR ---
NURSE NOTES: CALLED AND SPOKE WITH DR CHRISTIANSEN RE ABG RESULT. MEW ORDERS MADE AND CARRIED OUT. FOR ABG AFTER AN HOUR. WILL CONTINUE TO MONITOR.
--- NOTE | 2018-06-17 09:08 | Diagnostic Imaging Report ---
Indication: Dyspnea Technique: One view of the chest Comparison: 06/16/2018 Findings: Stable satisfactory position of endotracheal tube, nasogastric tube, right arm PICC. There is increasing opacity of the right hemithorax, likely representing increasing pleural fluid but may also reflect increased parenchymal consolidation. Less optimal inspiration on the current exam, resulting in crowding of bronchovascular markings in the left lung. There is mild left lung interstitial prominence and central bronchial wall thickening, stable, likely reflecting senescent changes. Impression: Increasing right lung opacity, likely representing decreasing pleural fluid but may also represent increasing parenchymal consolidation
[2018-06-17] MEDS: Pantoprazole Inj IV SCH (09:26)
[2018-06-17] MEDS: Amiodarone 200mg tab ORAL SCH ×2 (09:26→17:07)
[2018-06-17] MEDS: Heparin 5000 units/ml inj SUBQ SCH ×2 (09:28→20:36)
--- NOTE | 2018-06-17 10:10 | NUR ---
NURSE NOTES: CALLED AND LEFT A MESSAGE TO DR CHRISTIANSEN RE ABG RESULT. AWAITING FOR CALL BACK. NO SIGNS OF DISTRESS OF THE MOMENT. SUCTIONED AND REPOSITIONED PATIENT. DGT SEEN AT THE BEDSIDE. WILL CONTINUE TO MONITOR.
--- NOTE | 2018-06-17 11:17 | NUR ---
RD ASSESSMENT & RECOMMENDATIONS SEE CARE ACTIVITY FOR COMPLETE ASSESSMENT DAILY ESTIMATED NEEDS: Needs based on Pulmonary/ 54kg 25-30 kcals/kg 2679-0216 total kcals 1-1.5 g protein/kg 54-81 g total protein 25-30 mL/kg 8060-8912 total fluid mLs NUTRITION DIAGNOSIS: * Swallowing difficulty R/T dysphagia, respiratory status as evidenced by s/p intubation, now reintubated, ICU status, NGT feeds restarted. (UPDATED) * Altered nutrition related lab values R/T volume deficit? clinical condition, prediabetes as evidenced by elev Na (149-> now wnl), elev BUN/creat (65/3.7), A1C=5.9, elev BG of 201 upon adm -> 111 136 improved. PO DIET RECOMMENDATIONS: ZYGLO TECHNICIAN evaluation when medically appropriate ENTERAL NUTRITION RECOMMENDATIONS: Glucerna 1.2 @ 55ml/hr x 24 hrs to provide 1320ml, 1584kcal, 79g prot, 1063ml free water * WHEN MEDICALLY APPROPRIATE -> Rec Glucerna 1.2, initiate @ @ 25ml/hr x 6 hrs, advance 10ml q 4-6 hrs as tolerated to goal rate * HOB over 30 degrees/ water flush per MD. ADDITIONAL RECOMMENDATIONS: * CALIBRATED bedscale wt for accurate CBW- w/ added SPR mattress+ pump * Monitor lytes daily w/ TF-> need for TF change * Monitor BGs, need for SSI/hypoglycemic agents * Monitor NPO status, POC: Trach/PEG? * Monitor renal labs/ need for TF change . .
--- NOTE | 2018-06-17 12:05 | NUR ---
NURSE NOTES: SUCTIONED AND REPOSITIONED PATIENT. TOLERATING VENT SETTINGS. NO SIGNS OF DISTRESS OF THE MOMENT. WILL CONTINUE TO MONITOR.
--- NOTE | 2018-06-17 13:21 | General Progress Note ---
Assessment/Plan Problem List: (1) COPD with acute exacerbation ICD Codes: J44.1 - Chronic obstructive pulmonary disease with (acute) exacerbation SNOMED: 879698623 (2) Pleural effusion ICD Codes: J90 - Pleural effusion, not elsewhere classified SNOMED: 47397635 (3) Afib ICD Codes: I48.91 - Unspecified atrial fibrillation SNOMED: 15545592 (4) CAD (coronary artery disease) ICD Codes: I25.10 - Atherosclerotic heart disease of [place] coronary artery without angina pectoris SNOMED: 81190377 (5) Respiratory failure ICD Codes: J96.90 - Respiratory failure, unspecified, unspecified whether with hypoxia or hypercapnia SNOMED: 978540743 (6) Failure to thrive SNOMED: 22003044 Assessment/Plan Assessment - Resp failure - NGT dependent - COPD - CHF - PNA - Anemia - Poor prognosis Recommendations - NGT feeds - Vent care - Elevated HOB - Monitor residuals - Abx - Pulmonary toilet - Await family decision re PEG Subjective ROS Limited/Unobtainable: No Allergies: Coded Allergies: Mushroom (Verified Allergy, Severe, 05/28/18) MORPHINE (Unverified Allergy, Intermediate, Itching, 01/04/15) PENICILLINS (Unverified Allergy, Intermediate, Hives, 01/04/15) CELECOXIB (Verified Allergy, Mild, 01/15/09) Objective Last 24 Hour Vital Signs Date Time Temp Pulse Resp B/P (MAP) Pulse Ox O2 Delivery O2 Flow Rate FiO2 06/17/18 13:08 98 19 50 06/17/18 12:00 98.8 96 25 137/58 (84) 100 06/17/18 12:00 Endotracheal Tube Endotracheal Tube 06/17/18 12:00 50 06/17/18 11:07 Mechanical Ventilator 50 06/17/18 11:07 Mechanical Ventilator 50 06/17/18 11:00 89 17 100/52 (68) 98 06/17/18 10:34 120 17 50 06/17/18 10:13 99.3 06/17/18 10:00 103 18 124/46 (72) 98 06/17/18 09:00 107 19 124/46 (72) 99 06/17/18 08:52 121 20 50 06/17/18 08:00 Endotracheal Tube Endotracheal Tube 06/17/18 08:00 118 06/17/18 08:00 99.6 112 20 103/43 (63) 100 06/17/18 08:00 50 06/17/18 07:00 114 20 133/79 (97) 100 06/17/18 06:56 119 20 50 06/17/18 06:56 121 20 Mechanical Ventilator 50 06/17/18 06:55 Mechanical Ventilator 50 06/17/18 06:55 Mechanical Ventilator 50 06/17/18 06:00 105 20 112/40 (64) 100 06/17/18 05:10 117 20 50 06/17/18 05:00 105 20 96/40 (58) 100 06/17/18 04:00 50 06/17/18 04:00 98.8 124 20 123/56 (78) 100 06/17/18 04:00 Endotracheal Tube 50.0 Endotracheal Tube 06/17/18 04:00 119 06/17/18 03:03 Mechanical Ventilator 06/17/18 03:02 142 20 100 Mechanical Ventilator 50 06/17/18 03:01 142 20 50 06/17/18 03:00 124 20 80/42 (55) 100 06/17/18 02:00 124 20 109/47 (67) 100 06/17/18 01:20 110 20 50 06/17/18 01:00 125 20 129/64 (85) 100 06/17/18 00:00 98.8 109 22 98/59 (72) 100 06/17/18 00:00 Endotracheal Tube 06/17/18 00:00 50 06/16/18 23:00 124 20 117/49 (71) 100 06/16/18 22:50 120 21 100 Mechanical Ventilator 50 06/16/18 22:39 115 20 100 Mechanical Ventilator 50 06/16/18 22:38 115 20 50 06/16/18 22:00 119 20 97/45 (62) 100 06/16/18 21:01 120 20 50 06/16/18 21:00 115 20 112/41 (64) 100 06/16/18 20:00 98.9 109 22 98/59 (72) 100 06/16/18 20:00 Endotracheal Tube 06/16/18 20:00 120 06/16/18 20:00 60 06/16/18 19:45 105 20 60 06/16/18 19:00 112 20 108/55 (72) 100 06/16/18 18:00 103 20 105/48 (67) 100 06/16/18 18:00 80 105/55 06/16/18 17:00 110 22 128/60 (82) 100 06/16/18 16:53 110 22 100 06/16/18 16:00 Bi-pap 60.0 Bi-pap Bi-pap 06/16/18 16:00 110 06/16/18 16:00 100 06/16/18 16:00 98.4 112 22 122/58 (79) 100 06/16/18 15:40 116 30 100 06/16/18 15:40 100 06/16/18 14:07 92 17 92 Bi-pap 100 06/16/18 14:07 91 16 92 Full Face 100 06/16/18 13:56 96 22 89 Bi-pap 100 06/16/18 13:55 91 16 91 Bi-pap 100 Intake and Output 06/16/18 06/17/18 18:59 06:59 Intake Total 825 ml Output Total 60 ml 360 ml Balance -60 ml 465 ml IV Total 825 ml Output Urine Total 60 ml 360 ml # Bowel Movements 1 Laboratory Tests 06/16/18 15:00: Vancomycin Level Trough 19.3H 06/16/18 16:40: Arterial Blood pH 7.345L, Arterial Blood Partial Pressure CO2 53.4H, Arterial Blood Partial Pressure O2 293.1H, Arterial Blood HCO3 28.4H, Arterial Blood Oxygen Saturation 99.3, Arterial Blood Base Excess 1.8, David Test Positive 06/16/18 22:25: Arterial Blood pH 7.544H, Arterial Blood Partial Pressure CO2 30.8L, Arterial Blood Partial Pressure O2 70.6L, Arterial Blood HCO3 26.0, Arterial Blood Oxygen Saturation 95.4, Arterial Blood Base Excess 3.8H, David Test Positive 06/17/18 04:00: White Blood Count 18.1H, Red Blood Count 4.45, Hemoglobin 10.1L, Hematocrit 32.4L, Mean Corpuscular Volume 73L, Mean Corpuscular Hemoglobin 22.7L, Mean Corpuscular Hemoglobin Concent 31.2L, Red Cell Distribution Width 18.3H, Platelet Count 339, Mean Platelet Volume 7.6, Neutrophils (%) (Auto) , Lymphocytes (%) (Auto) , Monocytes (%) (Auto) , Eosinophils (%) (Auto) , Basophils (%) (Auto) , Differential Total Cells Counted 100, Neutrophils % ( Manual) 85H, Lymphocytes % (Manual) 12L, Monocytes % (Manual) 3, Eosinophils % ( Manual) 0, Basophils % (Manual) 0, Band Neutrophils 0, Platelet Estimate Adequate, Platelet Morphology Normal, Anisocytosis 1+, Ovalocytes 1+, Schistocytes 1+, Sodium Level 141, Potassium Level 4.6, Chloride Level 104, Carbon Dioxide Level 27, Anion Gap 10, Blood Urea Nitrogen 65H, Creatinine 3.7H , Estimat Glomerular Filtration Rate , Glucose Level 116H, Uric Acid 8.1H, Calcium Level 8.9, Phosphorus Level 2.6, Magnesium Level 2.2, Total Bilirubin 0.5, Aspartate Amino Transf (AST/SGOT) 18, Alanine Aminotransferase (ALT/SGPT) 21, Alkaline Phosphatase 88, Pro-B-Type Natriuretic Peptide 4103H, Total Protein 6.9, Albumin 2.1L, Globulin 4.8, Albumin/Globulin Ratio 0.4L, Random Vancomycin Level 32.1 06/17/18 10:05: Arterial Blood pH 7.431, Arterial Blood Partial Pressure CO2 42.2, Arterial Blood Partial Pressure O2 87.3, Arterial Blood HCO3 27.4H, Arterial Blood Oxygen Saturation 96.5, Arterial Blood Base Excess 2.9H, David Test Positive Height (Feet): 5 Height (Inches): 4.00 Weight (Pounds): 127 General Appearance: lethargic EENT: normal ENT inspection Neck: supple Cardiovascular: normal rate Respiratory/Chest: decreased breath sounds Abdomen: normal bowel sounds, non tender, soft Extremities: non-tender Jacobo Acevedo MD Jun 17, 2018 13:21
--- NOTE | 2018-06-17 14:23 | NUR ---
NURSE NOTES: CALLED AND SPOKE WITH SHILO AND LEFT A MESSAGE A MESSAGE TO DR DIONE MARTINEZ OUTPUT. WILL CONITNUE TO MONITOR.
--- NOTE | 2018-06-17 14:53 | NUR ---
NURSE NOTES: SPOKE WITH DR PARHAM. NEW ORDERS MADE AND CARRIED OUT. BLADDER SCAN OF 4ML. CALLED AND LEFT A MESSAGE. AWAITING FOR CALL BACK. WILL CONTINUE TO MONITOR.
[2018-06-17] MEDS: D5 1/2NS 1,000 ML IV SCH (15:00)
--- NOTE | 2018-06-17 15:30 | Infectious Diseases Prog Note ---
Assessment/Plan Assessment/Plan 87 yo feamle with PMHx of COPD, HTN, and A.fib sent to the ED from her nuring home for SOB. Sepsis - Likely PNA 06/17 CXR: Increasing right lung opacity, likely representing decreasing pleural fluid but may also represent increasing parenchymal consolidation 06/15 CXR: Increasing opacification right hemithorax, likely reflecting increasing pleural fluid but may also reflect increasing pulmonary parenchymal consolidation 06/14 CXR: Diffuse right lung hazy opacity appears similar to the prior exam. 06/12 CXR: : Hazy opacification of the right hemithorax, likely reflecting pleural fluid, is unchanged. 05/28/18 CXR with atalectasis vs consolidation in the right side. 06/01/18 CXR - Extensive right hemithorax opacification UA (-) sputum cx 06/15: S.aureus (likely a colonizer at this point), GNB Sputum Cx 05/28/18 - MRSA (Inf Neg) Urine legionella (-) Acute respiratory failure s/p intubation 06/16 R lung collapse: -06/16 CXR: Complete opacification of the right hemithorax. Probably due to complete atelectasis of the right lung, with evidence of abrupt occlusion of the rightmainstem bronchus. Given findings on prior chest radiographs, there is probablysignificant component of pleural effusion as well. Positive blood Cx - Likely contaminant BCx 05/28/18 - CoNS BCX 05/30/18 - NGTD Leukocytosis 15 on admit - now recurrent mild leukocytosis Febrile to 101.5 - now resolved COPD CAD A. fib Extubated 06/11/18 PLAN - Continue Meropenem #2 (abx d #21) given rise in WBC and pending repeat cultures -Continue vancomycin #/ -06/16 SP Cefepime #20 - Monitor CBC and Temps -f/u Repaeat cultures, Cdiff We will continue to follow Ms. Nowak during this hospitalization. Subjective Allergies: Coded Allergies: Mushroom (Verified Allergy, Severe, 05/28/18) MORPHINE (Unverified Allergy, Intermediate, Itching, 01/04/15) PENICILLINS (Unverified Allergy, Intermediate, Hives, 01/04/15) CELECOXIB (Verified Allergy, Mild, 01/15/09) Subjective afebrile in ~48hrs wbc improving intubated yesterday Objective Vital Signs Last 24 Hour Vital Signs Date Time Temp Pulse Resp B/P (MAP) Pulse Ox O2 Delivery O2 Flow Rate FiO2 06/17/18 14:00 18 17 118/51 (73) 18 06/17/18 13:08 98 19 50 06/17/18 13:00 96 17 132/51 (78) 100 06/17/18 12:00 98.8 96 25 137/58 (84) 100 06/17/18 12:00 Endotracheal Tube Endotracheal Tube 06/17/18 12:00 50 06/17/18 11:07 Mechanical Ventilator 50 06/17/18 11:07 Mechanical Ventilator 50 06/17/18 11:00 89 17 100/52 (68) 98 06/17/18 10:34 120 17 50 06/17/18 10:13 99.3 06/17/18 10:00 103 18 124/46 (72) 98 06/17/18 09:00 107 19 124/46 (72) 99 06/17/18 08:52 121 20 50 06/17/18 08:00 Endotracheal Tube Endotracheal Tube 06/17/18 08:00 118 06/17/18 08:00 99.6 112 20 103/43 (63) 100 06/17/18 08:00 50 06/17/18 07:00 114 20 133/79 (97) 100 06/17/18 06:56 119 20 50 06/17/18 06:56 121 20 Mechanical Ventilator 50 06/17/18 06:55 Mechanical Ventilator 50 06/17/18 06:55 Mechanical Ventilator 50 06/17/18 06:00 105 20 112/40 (64) 100 06/17/18 05:10 117 20 50 06/17/18 05:00 105 20 96/40 (58) 100 06/17/18 04:00 50 06/17/18 04:00 98.8 124 20 123/56 (78) 100 06/17/18 04:00 Endotracheal Tube 50.0 Endotracheal Tube 06/17/18 04:00 119 06/17/18 03:03 Mechanical Ventilator 06/17/18 03:02 142 20 100 Mechanical Ventilator 50 06/17/18 03:01 142 20 50 06/17/18 03:00 124 20 80/42 (55) 100 06/17/18 02:00 124 20 109/47 (67) 100 06/17/18 01:20 110 20 50 06/17/18 01:00 125 20 129/64 (85) 100 06/17/18 00:00 98.8 109 22 98/59 (72) 100 06/17/18 00:00 Endotracheal Tube 06/17/18 00:00 50 06/16/18 23:00 124 20 117/49 (71) 100 06/16/18 22:50 120 21 100 Mechanical Ventilator 50 06/16/18 22:39 115 20 100 Mechanical Ventilator 50 06/16/18 22:38 115 20 50 06/16/18 22:00 119 20 97/45 (62) 100 06/16/18 21:01 120 20 50 06/16/18 21:00 115 20 112/41 (64) 100 06/16/18 20:00 98.9 109 22 98/59 (72) 100 06/16/18 20:00 Endotracheal Tube 06/16/18 20:00 120 06/16/18 20:00 60 06/16/18 19:45 105 20 60 06/16/18 19:00 112 20 108/55 (72) 100 06/16/18 18:00 103 20 105/48 (67) 100 06/16/18 18:00 80 105/55 06/16/18 17:00 110 22 128/60 (82) 100 06/16/18 16:53 110 22 100 06/16/18 16:00 Bi-pap 60.0 Bi-pap Bi-pap 06/16/18 16:00 110 06/16/18 16:00 100 06/16/18 16:00 98.4 112 22 122/58 (79) 100 06/16/18 15:40 116 30 100 06/16/18 15:40 100 Height (Feet): 5 Height (Inches): 4.00 Weight (Pounds): 127 Objective General Appearance: no apparent distress, other - on bipap Neck: supple Cardiovascular: normal rate Respiratory/Chest: lungs clear Abdomen: normal bowel sounds, non tender, soft Extremities: trace edema Microbiology Date/Time Source Procedure Growth Status 06/15/18 19:30 Blood Blood Culture - Preliminary NO GROWTH AFTER 24 HOURS Resulted 06/15/18 19:15 Blood Blood Culture - Preliminary NO GROWTH AFTER 24 HOURS Resulted 06/15/18 17:30 Sputum Gram Stain - Final Resulted 06/15/18 17:30 Sputum Culture - Preliminary Gram Negative Bacillus 1 Staphylococcus Aureus Resulted 06/15/18 17:30 Indwelling Cath Urine Culture - Preliminary Resulted Laboratory Tests Test 06/16/18 16:40 06/16/18 22:25 06/17/18 04:00 06/17/18 10:05 Arterial Blood pH 7.345 (7.350-7.450) 7.544 (7.350-7.450) 7.431 (7.350-7.450) Arterial Blood Partial Pressure CO2 53.4 mmHg (35.0-45.0) H 30.8 mmHg (35.0-45.0) L 42.2 mmHg (35.0-45.0) Arterial Blood Partial Pressure O2 293.1 mmHg (75.0-100.0) H 70.6 mmHg (75.0-100.0) L 87.3 mmHg (75.0-100.0) Arterial Blood HCO3 28.4 mmol/L (22.0-26.0) H 26.0 mmol/L (22.0-26.0) 27.4 mmol/L (22.0-26.0) H Arterial Blood Oxygen Saturation 99.3 % (95-100) 95.4 % (95-100) 96.5 % (95-100) Arterial Blood Base Excess 1.8 (-2-2) 3.8 (-2-2) H 2.9 (-2-2) H David Test Positive Positive Positive White Blood Count 18.1 K/UL (4.8-10.8) H Red Blood Count 4.45 M/UL (4.20-5.40) Hemoglobin 10.1 G/DL (12.0-16.0) L Hematocrit 32.4 % (37.0-47.0) L Mean Corpuscular Volume 73 FL (80-99) L Mean Corpuscular Hemoglobin 22.7 PG (27.0-31.0) L Mean Corpuscular Hemoglobin Concent 31.2 G/DL (32.0-36.0) L Red Cell Distribution Width 18.3 % (11.6-14.8) H Platelet Count 339 K/UL (150-450) Mean Platelet Volume 7.6 FL (6.5-10.1) Neutrophils (%) (Auto) % (45.0-75.0) Lymphocytes (%) (Auto) % (20.0-45.0) Monocytes (%) (Auto) % (1.0-10.0) Eosinophils (%) (Auto) % (0.0-3.0) Basophils (%) (Auto) % (0.0-2.0) Differential Total Cells Counted 100 Neutrophils % (Manual) 85 % (45-75) H Lymphocytes % (Manual) 12 % (20-45) L Monocytes % (Manual) 3 % (1-10) Eosinophils % (Manual) 0 % (0-3) Basophils % (Manual) 0 % (0-2) Band Neutrophils 0 % (0-8) Platelet Estimate Adequate Platelet Morphology Normal Anisocytosis 1+ Ovalocytes 1+ Schistocytes 1+ Sodium Level 141 MMOL/L (136-145) Potassium Level 4.6 MMOL/L (3.5-5.1) Chloride Level 104 MMOL/L (98-107) Carbon Dioxide Level 27 MMOL/L (21-32) Anion Gap 10 mmol/L (5-15) Blood Urea Nitrogen 65 mg/dL (7-18) H Creatinine 3.7 MG/DL (0.55-1.30) H Estimat Glomerular Filtration Rate mL/min (>60) Glucose Level 116 MG/DL (74-106) H Uric Acid 8.1 MG/DL (2.6-7.2) H Calcium Level 8.9 MG/DL (8.5-10.1) Phosphorus Level 2.6 MG/DL (2.5-4.9) Magnesium Level 2.2 MG/DL (1.8-2.4) Total Bilirubin 0.5 MG/DL (0.2-1.0) Aspartate Amino Transf (AST/SGOT) 18 U/L (15-37) Alanine Aminotransferase (ALT/SGPT) 21 U/L (12-78) Alkaline Phosphatase 88 U/L (46-116) Pro-B-Type Natriuretic Peptide 4103 pg/mL (0-125) H Total Protein 6.9 G/DL (6.4-8.2) Albumin 2.1 G/DL (3.4-5.0) L Globulin 4.8 g/dL Albumin/Globulin Ratio 0.4 (1.0-2.7) L Random Vancomycin Level 32.1 ug/mL Current Medications Medications (Trade) Dose Ordered Sig/Ann Route PRN Reason Start Time Stop Time Status Last Admin Dose Admin Acetaminophen (Tylenol) 650 mg Q4H PRN ORAL Mild Pain/Temp > 100.5 06/16/18 19:19 07/16/18 19:18 06/17/18 09:43 Acetylcysteine (Mucomyst) 100 mg Q4HRT HHN 06/16/18 23:00 07/09/18 21:29 06/16/18 22:41 Albuterol/ Ipratropium (Albuterol/ Ipratropium) 3 ml Q4H PRN HHN Shortness of Breath 06/16/18 19:45 06/19/18 23:44 06/16/18 22:41 Amiodarone HCl (Cordarone) 200 mg BID ORAL 06/17/18 09:00 07/17/18 08:59 06/17/18 09:26 Chlorhexidine Gluconate (Myra-Hex 2%) 1 applic DAILY@2000 TOPIC 06/16/18 20:00 07/02/18 19:59 06/16/18 20:15 Dextrose/ Electrolytes 1,000 ml @ 75 mls/hr [id number] IV 06/16/18 19:19 07/16/18 19:18 06/17/18 01:01 Dextrose/Sodium Chloride 1,000 ml @ 75 mls/hr [id number] IV 06/17/18 15:00 07/17/18 14:59 06/17/18 15:00 Furosemide (Lasix) 100 mg ONCE IV 06/17/18 14:49 06/17/18 16:00 06/17/18 14:59 Haloperidol Lactate (Haldol) 5 mg Q6H PRN IM Agitation 06/16/18 19:20 07/16/18 19:19 Heparin Sodium (Porcine) (Heparin 5000 units/ml) 5,000 units EVERY 12 HOURS SUBQ 06/16/18 21:00 06/27/18 08:59 06/17/18 09:28 Lorazepam (Ativan 2mg/ml 1ml) 0.5 mg Q3H PRN IV For Anxiety 06/16/18 19:20 06/23/18 19:19 Meropenem 500 mg/ Sodium Chloride 55 ml @ 110 mls/hr Q24H IVPB 06/17/18 18:00 06/21/18 17:59 Metoprolol Tartrate (Lopressor) 5 mg Q6H PRN IVP SBP > 125 06/16/18 19:20 07/16/18 19:19 Nitroglycerin (Ntg) 0.4 mg Q5M PRN SL Prn Chest Pain 06/16/18 19:20 06/27/18 13:29 Ondansetron HCl (Zofran) 4 mg Q6H PRN IVP Nausea & Vomiting 06/16/18 19:21 07/16/18 19:20 Pantoprazole (Protonix) 40 mg DAILY IV 06/17/18 09:00 07/03/18 08:59 06/17/18 09:26 Polyethylene Glycol (Miralax) 17 gm BEDTIME ORAL 06/16/18 21:00 07/06/18 20:59 06/16/18 20:15 Polyethylene Glycol (Miralax) 17 gm DAILYPRN PRN ORAL Constipation 06/16/18 19:21 07/16/18 19:20 Quetiapine Fumarate (SEROquel) 25 mg Q6H PRN ORAL For Anxiety 06/16/18 19:21 07/16/18 19:20 Vancomycin HCl (Vanco rx to dose) 1 ea DAILY PRN MISC Per rx protocol 06/17/18 09:00 07/12/18 17:59 Natty Hernandes M.D. Jun 17, 2018 15:30
--- NOTE | 2018-06-17 16:38 | NUR ---
NURSE NOTES: SEEN AND EXAMINED BY DR REYES, NO NEW ORDER. MADE AWARE OF ABG AND CXR RESULT. WILL CONTINUE TO MONITOR.
--- NOTE | 2018-06-17 17:21 | NUR ---
NURSE NOTES: SEEN AND EXAMINED BY DR PARHAM. NO SIGNS OF DISTRESS. PATIENT KEPT CLEAN AND DRY. NOTED LARGE LOOSE BM. NO SIGNS OF DISTRESS. WILL CONTINUE TO MONITOR.
[2018-06-17] MEDS: Meropenem 500 MG in NS 55 ML IVPB SCH (17:34)
--- NOTE | 2018-06-17 18:29 | Nephrology Progress Note ---
Assessment/Plan Problem List: (1) Acute renal failure Assessment: Cr rising (2) Anuria (3) Acute respiratory failure Assessment: on vent (4) Dementia (5) Afib Assessment no UO Cr rising other conditions: (1) Acute respiratory failure (2) Aspiration pneumonia (3) Acute encephalopathy (4) Pleural effusion (5) COPD (chronic obstructive pulmonary disease) (6) CAD (coronary artery disease) (7) Dementia Plan monitor vanco level re intubated now DC Lasix Fluid challenge K and Phos and Mag as needed Anemia porter Adjust BP meds fu Lytes Gastric support pulm support- not tolerating bipap per orders Objective Objective Last 24 Hour Vital Signs Date Time Temp Pulse Resp B/P (MAP) Pulse Ox O2 Delivery O2 Flow Rate FiO2 06/17/18 17:26 95 19 50 06/17/18 17:00 99 19 164/64 (97) 100 06/17/18 16:03 Endotracheal Tube Endotracheal Tube 06/17/18 16:00 50 06/17/18 16:00 101 06/17/18 16:00 99.3 97 19 118/51 (73) 100 06/17/18 15:27 117 25 50 06/17/18 15:20 Mechanical Ventilator 50 06/17/18 15:20 Mechanical Ventilator 50 06/17/18 14:00 18 17 118/51 (73) 18 06/17/18 13:08 98 19 50 06/17/18 13:00 96 17 132/51 (78) 100 06/17/18 12:00 98.8 96 25 137/58 (84) 100 06/17/18 12:00 Endotracheal Tube Endotracheal Tube 06/17/18 12:00 50 06/17/18 12:00 91 06/17/18 11:07 Mechanical Ventilator 50 06/17/18 11:07 Mechanical Ventilator 50 06/17/18 11:00 89 17 100/52 (68) 98 06/17/18 10:34 120 17 50 06/17/18 10:13 99.3 06/17/18 10:13 99.3 06/17/18 10:00 103 18 124/46 (72) 98 06/17/18 09:00 107 19 124/46 (72) 99 06/17/18 08:52 121 20 50 06/17/18 08:00 Endotracheal Tube Endotracheal Tube 06/17/18 08:00 118 2/15/19 08:00 99.6 112 20 103/43 (63) 100 06/17/18 08:00 50 06/17/18 07:00 114 20 133/79 (97) 100 06/17/18 06:56 119 20 50 06/17/18 06:56 121 20 Mechanical Ventilator 50 06/17/18 06:55 Mechanical Ventilator 50 06/17/18 06:55 Mechanical Ventilator 50 06/17/18 06:00 105 20 112/40 (64) 100 06/17/18 05:10 117 20 50 06/17/18 05:00 105 20 96/40 (58) 100 06/17/18 04:00 50 06/17/18 04:00 98.8 124 20 123/56 (78) 100 06/17/18 04:00 Endotracheal Tube 50.0 Endotracheal Tube 06/17/18 04:00 119 06/17/18 03:03 Mechanical Ventilator 06/17/18 03:02 142 20 100 Mechanical Ventilator 50 06/17/18 03:01 142 20 50 06/17/18 03:00 124 20 80/42 (55) 100 06/17/18 02:00 124 20 109/47 (67) 100 06/17/18 01:20 110 20 50 06/17/18 01:00 125 20 129/64 (85) 100 06/17/18 00:00 98.8 109 22 98/59 (72) 100 06/17/18 00:00 Endotracheal Tube 06/17/18 00:00 50 06/16/18 23:00 124 20 117/49 (71) 100 06/16/18 22:50 120 21 100 Mechanical Ventilator 50 06/16/18 22:39 115 20 100 Mechanical Ventilator 50 06/16/18 22:38 115 20 50 06/16/18 22:00 119 20 97/45 (62) 100 06/16/18 21:01 120 20 50 06/16/18 21:00 115 20 112/41 (64) 100 06/16/18 20:00 98.9 109 22 98/59 (72) 100 06/16/18 20:00 Endotracheal Tube 06/16/18 20:00 120 06/16/18 20:00 60 06/16/18 19:45 105 20 60 06/16/18 19:00 112 20 108/55 (72) 100 Intake and Output 06/16/18 06/17/18 19:00 07:00 Intake Total 900 ml Output Total 90 ml 340 ml Balance -90 ml 560 ml IV Total 900 ml Output Urine Total 90 ml 340 ml # Bowel Movements 1 Laboratory Tests 06/16/18 22:25: Arterial Blood pH 7.544H, Arterial Blood Partial Pressure CO2 30.8L, Arterial Blood Partial Pressure O2 70.6L, Arterial Blood HCO3 26.0, Arterial Blood Oxygen Saturation 95.4, Arterial Blood Base Excess 3.8H, David Test Positive 06/17/18 04:00: White Blood Count 18.1H, Red Blood Count 4.45, Hemoglobin 10.1L, Hematocrit 32.4L, Mean Corpuscular Volume 73L, Mean Corpuscular Hemoglobin 22.7L, Mean Corpuscular Hemoglobin Concent 31.2L, Red Cell Distribution Width 18.3H, Platelet Count 339, Mean Platelet Volume 7.6, Neutrophils (%) (Auto) , Lymphocytes (%) (Auto) , Monocytes (%) (Auto) , Eosinophils (%) (Auto) , Basophils (%) (Auto) , Differential Total Cells Counted 100, Neutrophils % ( Manual) 85H, Lymphocytes % (Manual) 12L, Monocytes % (Manual) 3, Eosinophils % ( Manual) 0, Basophils % (Manual) 0, Band Neutrophils 0, Platelet Estimate Adequate, Platelet Morphology Normal, Anisocytosis 1+, Ovalocytes 1+, Schistocytes 1+, Sodium Level 141, Potassium Level 4.6, Chloride Level 104, Carbon Dioxide Level 27, Anion Gap 10, Blood Urea Nitrogen 65H, Creatinine 3.7H , Estimat Glomerular Filtration Rate , Glucose Level 116H, Uric Acid 8.1H, Calcium Level 8.9, Phosphorus Level 2.6, Magnesium Level 2.2, Total Bilirubin 0.5, Aspartate Amino Transf (AST/SGOT) 18, Alanine Aminotransferase (ALT/SGPT) 21, Alkaline Phosphatase 88, Pro-B-Type Natriuretic Peptide 4103H, Total Protein 6.9, Albumin 2.1L, Globulin 4.8, Albumin/Globulin Ratio 0.4L, Random Vancomycin Level 32.1 06/17/18 10:05: Arterial Blood pH 7.431, Arterial Blood Partial Pressure CO2 42.2, Arterial Blood Partial Pressure O2 87.3, Arterial Blood HCO3 27.4H, Arterial Blood Oxygen Saturation 96.5, Arterial Blood Base Excess 2.9H, David Test Positive Height (Feet): 5 Height (Inches): 4.00 Weight (Pounds): 127 General Appearance: no apparent distress EENT: other - vented Cardiovascular: tachycardia Respiratory/Chest: decreased breath sounds Abdomen: distended Objective no change Kendrick Jimenez MD Jun 17, 2018 18:29
--- NOTE | 2018-06-17 18:54 | NUR ---
NURSE NOTES: REPOSITIONED PATIENT. NO SIGNS OF DISTRESS OF THE MOMENT. WILL CONTINUE TO MONITOR.
[2018-06-17] MEDS: Albuterol/Ipratropium 3ml neb HHN PRN ×2 (19:07→23:08)
--- NOTE | 2018-06-17 19:13 | NUR ---
RESPIRATORY NOTE: Received pt. on 840 vent. Vent settings are: A/C rate of 16, Vt 400, FI02 50%, PEEP +5. No respiratory distress noted, pt. Sp02 @ 100%. Ambu bag @ BS. Vent plugged on red outlet. Will continue to monitor pt.
--- NOTE | 2018-06-17 19:19 | NUR ---
HAND-OFF: Report given to Suyapa Carter RN.
--- NOTE | 2018-06-17 19:30 | NUR ---
NURSE NOTES: Received report from Donald JI. patient in bed awake noted with anxiety repositioned patient, talk therapy provided and TV provided will continue to monitor pt. Patient is orally intubated ETT 7.5/23cm lip line, vent settings AC 16, TV 400 fi02 50% peep of 5. no s/s of acute distress noted. NGT intact running Glucerna 1.2 at 20cc/hr goal 55cc/hr. HOB elevated no residual. Sinclair draining with poor output. On P200 for wound management. MILY PICC intact running D51/2 NS at 75cc/hr. Bilateral soft wrist restraint checked. Bed alarm on. Bed locked and in low position. Will continue plan of care.
[2018-06-17] MEDS: Dyna-Hex 2% Top Sol 2oz TOPIC SCH (20:34)
[2018-06-17] MEDS: LORazepam Inj 2mg/ml 1ml IV PRN (20:34)
[2018-06-17] MEDS: Miralax 17gm pkt ORAL SCH (20:34)
--- NOTE | 2018-06-17 20:40 | General Progress Note ---
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 Subjective Neurologic/Psychiatric: Reports: anxiety Allergies: Coded Allergies: Mushroom (Verified Allergy, Severe, 05/28/18) MORPHINE (Unverified Allergy, Intermediate, Itching, 01/04/15) PENICILLINS (Unverified Allergy, Intermediate, Hives, 01/04/15) CELECOXIB (Verified Allergy, Mild, 01/15/09) Subjective no changes confused agitated Objective Last 24 Hour Vital Signs Date Time Temp Pulse Resp B/P (MAP) Pulse Ox O2 Delivery O2 Flow Rate FiO2 06/17/18 20:00 Endotracheal Tube Endotracheal Tube 06/17/18 20:00 97 06/17/18 20:00 98.5 94 16 120/54 (76) 100 06/17/18 20:00 50 06/17/18 19:15 83 16 50 06/17/18 19:12 95 16 100 Mechanical Ventilator 50 06/17/18 19:00 98 16 127/62 (83) 100 06/17/18 18:00 92 21 140/60 (86) 100 06/17/18 17:37 98.1 06/17/18 17:26 95 19 50 06/17/18 17:00 99 19 164/64 (97) 100 06/17/18 16:03 Endotracheal Tube Endotracheal Tube 06/17/18 16:00 50 06/17/18 16:00 101 06/17/18 16:00 99.3 97 19 118/51 (73) 100 06/17/18 15:27 117 25 50 06/17/18 15:20 Mechanical Ventilator 50 06/17/18 15:20 Mechanical Ventilator 50 06/17/18 15:00 100 20 118/51 (73) 100 06/17/18 14:00 92 18 118/66 (83) 100 06/17/18 13:08 98 19 50 06/17/18 13:00 96 17 132/51 (78) 100 06/17/18 12:00 98.8 96 25 137/58 (84) 100 06/17/18 12:00 Endotracheal Tube Endotracheal Tube 06/17/18 12:00 50 06/17/18 12:00 91 06/17/18 11:07 Mechanical Ventilator 50 06/17/18 11:07 Mechanical Ventilator 50 06/17/18 11:00 89 17 100/52 (68) 98 06/17/18 10:34 120 17 50 06/17/18 10:13 99.3 06/17/18 10:00 103 18 124/46 (72) 98 06/17/18 09:00 107 19 124/46 (72) 99 06/17/18 08:52 121 20 50 06/17/18 08:00 Endotracheal Tube Endotracheal Tube 06/17/18 08:00 118 06/17/18 08:00 99.6 112 20 103/43 (63) 100 06/17/18 08:00 50 06/17/18 07:00 114 20 133/79 (97) 100 06/17/18 06:56 119 20 50 06/17/18 06:56 121 20 Mechanical Ventilator 50 06/17/18 06:55 Mechanical Ventilator 50 06/17/18 06:55 Mechanical Ventilator 50 06/17/18 06:00 105 20 112/40 (64) 100 06/17/18 05:10 117 20 50 06/17/18 05:00 105 20 96/40 (58) 100 06/17/18 04:00 50 06/17/18 04:00 98.8 124 20 123/56 (78) 100 06/17/18 04:00 Endotracheal Tube 50.0 Endotracheal Tube 06/17/18 04:00 119 06/17/18 03:03 Mechanical Ventilator 06/17/18 03:02 142 20 100 Mechanical Ventilator 50 06/17/18 03:01 142 20 50 06/17/18 03:00 124 20 80/42 (55) 100 06/17/18 02:00 124 20 109/47 (67) 100 06/17/18 01:20 110 20 50 06/17/18 01:00 125 20 129/64 (85) 100 06/17/18 00:00 98.8 109 22 98/59 (72) 100 06/17/18 00:00 Endotracheal Tube 06/17/18 00:00 50 06/16/18 23:00 124 20 117/49 (71) 100 06/16/18 22:50 120 21 100 Mechanical Ventilator 50 2/14/19 22:39 115 20 100 Mechanical Ventilator 50 06/16/18 22:38 115 20 50 06/16/18 22:00 119 20 97/45 (62) 100 06/16/18 21:01 120 20 50 06/16/18 21:00 115 20 112/41 (64) 100 Intake and Output 06/16/18 06/17/18 19:00 07:00 Intake Total 900 ml Output Total 90 ml 340 ml Balance -90 ml 560 ml IV Total 900 ml Output Urine Total 90 ml 340 ml # Bowel Movements 1 Laboratory Tests 06/16/18 22:25: Arterial Blood pH 7.544H, Arterial Blood Partial Pressure CO2 30.8L, Arterial Blood Partial Pressure O2 70.6L, Arterial Blood HCO3 26.0, Arterial Blood Oxygen Saturation 95.4, Arterial Blood Base Excess 3.8H, David Test Positive 06/17/18 04:00: White Blood Count 18.1H, Red Blood Count 4.45, Hemoglobin 10.1L, Hematocrit 32.4L, Mean Corpuscular Volume 73L, Mean Corpuscular Hemoglobin 22.7L, Mean Corpuscular Hemoglobin Concent 31.2L, Red Cell Distribution Width 18.3H, Platelet Count 339, Mean Platelet Volume 7.6, Neutrophils (%) (Auto) , Lymphocytes (%) (Auto) , Monocytes (%) (Auto) , Eosinophils (%) (Auto) , Basophils (%) (Auto) , Differential Total Cells Counted 100, Neutrophils % ( Manual) 85H, Lymphocytes % (Manual) 12L, Monocytes % (Manual) 3, Eosinophils % ( Manual) 0, Basophils % (Manual) 0, Band Neutrophils 0, Platelet Estimate Adequate, Platelet Morphology Normal, Anisocytosis 1+, Ovalocytes 1+, Schistocytes 1+, Sodium Level 141, Potassium Level 4.6, Chloride Level 104, Carbon Dioxide Level 27, Anion Gap 10, Blood Urea Nitrogen 65H, Creatinine 3.7H , Estimat Glomerular Filtration Rate , Glucose Level 116H, Uric Acid 8.1H, Calcium Level 8.9, Phosphorus Level 2.6, Magnesium Level 2.2, Total Bilirubin 0.5, Aspartate Amino Transf (AST/SGOT) 18, Alanine Aminotransferase (ALT/SGPT) 21, Alkaline Phosphatase 88, Pro-B-Type Natriuretic Peptide 4103H, Total Protein 6.9, Albumin 2.1L, Globulin 4.8, Albumin/Globulin Ratio 0.4L, Random Vancomycin Level 32.1 06/17/18 05:30: C-Reactive Protein, Quantitative 38.4H 06/17/18 10:05: Arterial Blood pH 7.431, Arterial Blood Partial Pressure CO2 42.2, Arterial Blood Partial Pressure O2 87.3, Arterial Blood HCO3 27.4H, Arterial Blood Oxygen Saturation 96.5, Arterial Blood Base Excess 2.9H, David Test Positive Height (Feet): 5 Height (Inches): 4.00 Weight (Pounds): 127 Liz Lo MD Jun 17, 2018 20:40
--- NOTE | 2018-06-17 20:57 | General Progress Note ---
Assessment/Plan Status: deteriorating Assessment/Plan This is an 87-year-old female admitted with chronic obstructive pulmonary disease exacerbation, right lower lobe infiltrate/pneumonia with altered mental status and acute kidney injury. The patient will be admitted to [facility] with the following medical problems. 1. Chronic obstructive pulmonary disease exacerbation and pneumonia. The patient has been seen by Pulmonary. Infectious Disease has been consulted, pancultured. IV antibiotics per ID. Continue with BiPAP and suction p.r.n. Transition to Venturi-mask when stable. 2. Acute kidney injury. We will monitor I's and O's, gentle intravenous fluids. Repeat a BMP in a.m. Consider Nephrology consult. 3. History of chronic atrial fibrillation. Continue with amiodarone. The patient is in sinus rhythm at this time. 4. History of hypertension. Continue with amlodipine and hold for systolic blood pressure less than 110. 5. Altered mental status, most likely from above conditions. We will keep n.p.o. except for medications and start IV fluids. 6. DVT prophylaxis with heparin subcutaneous and SCDs. 7. The patient is Full Code per policy. We will discuss with the family. 8. hypokalmia 9. Anemia 10. CHf acute on chronic 11. leucocytosis 12. ARF? ATN Plan: - now intubated in icu - continue respiratory support - lasix given - aggressive pulmonary suction - may need HD soon - antibiotics per ID - am labs discussed with nurse Subjective Date patient seen: Jun 17, 2018 ROS Limited/Unobtainable: Yes Allergies: Coded Allergies: Mushroom (Verified Allergy, Severe, 05/28/18) MORPHINE (Unverified Allergy, Intermediate, Itching, 01/04/15) PENICILLINS (Unverified Allergy, Intermediate, Hives, 01/04/15) CELECOXIB (Verified Allergy, Mild, 01/15/09) Subjective patient is now reintubated, had atrial tachycardia now improved, restless per RN given Ativan Objective Last 24 Hour Vital Signs Date Time Temp Pulse Resp B/P (MAP) Pulse Ox O2 Delivery O2 Flow Rate FiO2 06/17/18 20:00 Endotracheal Tube Endotracheal Tube 06/17/18 20:00 97 06/17/18 20:00 98.5 94 16 120/54 (76) 100 06/17/18 20:00 50 06/17/18 19:15 83 16 50 06/17/18 19:12 95 16 100 Mechanical Ventilator 50 06/17/18 19:00 98 16 127/62 (83) 100 06/17/18 18:00 92 21 140/60 (86) 100 06/17/18 17:37 98.1 06/17/18 17:26 95 19 50 06/17/18 17:00 99 19 164/64 (97) 100 06/17/18 16:03 Endotracheal Tube Endotracheal Tube 06/17/18 16:00 50 06/17/18 16:00 101 06/17/18 16:00 99.3 97 19 118/51 (73) 100 06/17/18 15:27 117 25 50 06/17/18 15:20 Mechanical Ventilator 50 06/17/18 15:20 Mechanical Ventilator 50 06/17/18 15:00 100 20 118/51 (73) 100 06/17/18 14:00 92 18 118/66 (83) 100 06/17/18 13:08 98 19 50 06/17/18 13:00 96 17 132/51 (78) 100 06/17/18 12:00 98.8 96 25 137/58 (84) 100 06/17/18 12:00 Endotracheal Tube Endotracheal Tube 06/17/18 12:00 50 06/17/18 12:00 91 06/17/18 11:07 Mechanical Ventilator 50 06/17/18 11:07 Mechanical Ventilator 50 06/17/18 11:00 89 17 100/52 (68) 98 06/17/18 10:34 120 17 50 06/17/18 10:13 99.3 06/17/18 10:00 103 18 124/46 (72) 98 06/17/18 09:00 107 19 124/46 (72) 99 06/17/18 08:52 121 20 50 06/17/18 08:00 Endotracheal Tube Endotracheal Tube 06/17/18 08:00 118 06/17/18 08:00 99.6 112 20 103/43 (63) 100 06/17/18 08:00 50 06/17/18 07:00 114 20 133/79 (97) 100 06/17/18 06:56 119 20 50 06/17/18 06:56 121 20 Mechanical Ventilator 50 06/17/18 06:55 Mechanical Ventilator 50 06/17/18 06:55 Mechanical Ventilator 50 06/17/18 06:00 105 20 112/40 (64) 100 06/17/18 05:10 117 20 50 06/17/18 05:00 105 20 96/40 (58) 100 06/17/18 04:00 50 06/17/18 04:00 98.8 124 20 123/56 (78) 100 06/17/18 04:00 Endotracheal Tube 50.0 Endotracheal Tube 06/17/18 04:00 119 06/17/18 03:03 Mechanical Ventilator 06/17/18 03:02 142 20 100 Mechanical Ventilator 50 06/17/18 03:01 142 20 50 06/17/18 03:00 124 20 80/42 (55) 100 06/17/18 02:00 124 20 109/47 (67) 100 06/17/18 01:20 110 20 50 06/17/18 01:00 125 20 129/64 (85) 100 06/17/18 00:00 98.8 109 22 98/59 (72) 100 06/17/18 00:00 Endotracheal Tube 06/17/18 00:00 50 06/16/18 23:00 124 20 117/49 (71) 100 06/16/18 22:50 120 21 100 Mechanical Ventilator 50 06/16/18 22:39 115 20 100 Mechanical Ventilator 50 06/16/18 22:38 115 20 50 06/16/18 22:00 119 20 97/45 (62) 100 06/16/18 21:01 120 20 50 06/16/18 21:00 115 20 112/41 (64) 100 Intake and Output 06/16/18 06/17/18 19:00 07:00 Intake Total 900 ml Output Total 90 ml 340 ml Balance -90 ml 560 ml IV Total 900 ml Output Urine Total 90 ml 340 ml # Bowel Movements 1 Laboratory Tests 06/16/18 22:25: Arterial Blood pH 7.544H, Arterial Blood Partial Pressure CO2 30.8L, Arterial Blood Partial Pressure O2 70.6L, Arterial Blood HCO3 26.0, Arterial Blood Oxygen Saturation 95.4, Arterial Blood Base Excess 3.8H, David Test Positive 06/17/18 04:00: White Blood Count 18.1H, Red Blood Count 4.45, Hemoglobin 10.1L, Hematocrit 32.4L, Mean Corpuscular Volume 73L, Mean Corpuscular Hemoglobin 22.7L, Mean Corpuscular Hemoglobin Concent 31.2L, Red Cell Distribution Width 18.3H, Platelet Count 339, Mean Platelet Volume 7.6, Neutrophils (%) (Auto) , Lymphocytes (%) (Auto) , Monocytes (%) (Auto) , Eosinophils (%) (Auto) , Basophils (%) (Auto) , Differential Total Cells Counted 100, Neutrophils % ( Manual) 85H, Lymphocytes % (Manual) 12L, Monocytes % (Manual) 3, Eosinophils % ( Manual) 0, Basophils % (Manual) 0, Band Neutrophils 0, Platelet Estimate Adequate, Platelet Morphology Normal, Anisocytosis 1+, Ovalocytes 1+, Schistocytes 1+, Sodium Level 141, Potassium Level 4.6, Chloride Level 104, Carbon Dioxide Level 27, Anion Gap 10, Blood Urea Nitrogen 65H, Creatinine 3.7H , Estimat Glomerular Filtration Rate , Glucose Level 116H, Uric Acid 8.1H, Calcium Level 8.9, Phosphorus Level 2.6, Magnesium Level 2.2, Total Bilirubin 0.5, Aspartate Amino Transf (AST/SGOT) 18, Alanine Aminotransferase (ALT/SGPT) 21, Alkaline Phosphatase 88, Pro-B-Type Natriuretic Peptide 4103H, Total Protein 6.9, Albumin 2.1L, Globulin 4.8, Albumin/Globulin Ratio 0.4L, Random Vancomycin Level 32.1 06/17/18 05:30: C-Reactive Protein, Quantitative 38.4H 06/17/18 10:05: Arterial Blood pH 7.431, Arterial Blood Partial Pressure CO2 42.2, Arterial Blood Partial Pressure O2 87.3, Arterial Blood HCO3 27.4H, Arterial Blood Oxygen Saturation 96.5, Arterial Blood Base Excess 2.9H, David Test Positive Height (Feet): 5 Height (Inches): 4.00 Weight (Pounds): 127 General Appearance: no apparent distress, alert EENT: PERRL/EOMI, pharynx normal Neck: non-tender, supple Cardiovascular: normal rate, regular rhythm, no gallop/murmur, no JVD Respiratory/Chest: chest wall non-tender, normal breath sounds, no respiratory distress Abdomen: non tender, soft, no mass Extremities: non-tender, normal inspection, no calf tenderness Edema: no edema noted Arm (L), no edema noted Arm (R), no edema noted Leg (L), no edema noted Leg (R), no edema noted Pedal (L), no edema noted Pedal (R), no edema noted Generalized Edema: trace edema Neurologic: responsive Cruz Valderrama MD Jun 17, 2018 20:57
--- NOTE | 2018-06-17 21:30 | NUR ---
NURSE NOTES: Ativan 0.25ml given IVP for anxiety effective. Visited by Daughter. Repositioned. Suctioned and oral care provide. Will continue plan of care.
--- NOTE | 2018-06-17 21:41 | Pulmonolgy Critical Care Note ---
Critical Care - Asmt/Plan Assessment/Plan: Pulmonary Critical Care Progress Note HPI Patient is an 87 y/o female with hx of severe obstructive asthma, CHF, chronic hypercapnic respiratory failure admitted with respiratory distress and altered mental status. Apparently had R lung opacification and had been on BiPAP but was deemed to have failed bipap and intubated. She is currently on BiPAP, previously intubated. She has been treated with antibiotics for possible pneumonia. Some secretions noted. CXR todat NGT Right Stem Bronchus - now removed Assessment/Plan Problem List: 1. Acute on chronic hypercapnic respiratory failure 2. R lung atelectasis, possibly mucous plugging - improving on CXR 3. Pulmonary edema 4. chronic obstructive asthma 5. Pneumonia 6. Hx afib 7. MRSA pna, recurrent fever and increased leukocytosis Plan: -Continue current AC settings -aggressive pulmonary hygiene with duonebs/mucomyst/suctioning q4 -chest PT R lung -may need bronchoscopy -monitor volumes -monitor renal function -abx per ID, reculture Time: 50 min case d/w RN Subjective ROS Limited/Unobtainable: Yes Interval Events: Desaturating on BiPAP. CXR with complete collapse of right lung. Allergies: Coded Allergies: Mushroom (Verified Allergy, Severe, 05/28/18) MORPHINE (Unverified Allergy, Intermediate, Itching, 01/04/15) PENICILLINS (Unverified Allergy, Intermediate, Hives, 01/04/15) CELECOXIB (Verified Allergy, Mild, 01/15/09) Objective Vital Signs Noted General Appearance: other - Distress on BiPAP Respiratory/Chest: other - absent breath sounds on right Cardiovascular: normal rate Abdomen: soft, non tender Extremities: no edema Microbiology Date/Time Source Procedure Growth Status 06/15/18 17:30 Sputum Gram Stain - Final Resulted 06/15/18 17:30 Sputum Sputum Culture Pending Resulted 06/15/18 17:30 Indwelling Cath Urine Culture - Preliminary NO GROWTH Resulted Laboratory Tests 06/15/18 17:30: Urine Color Yellow, Urine Appearance Cloudy, Urine pH 5, Urine Specific [place] 1.010, Urine Protein 3+H, Urine Glucose (UA) Negative, Urine Ketones Negative, Urine Blood 4+H, Urine Nitrite Negative, Urine Bilirubin Negative, Urine Urobilinogen Normal, Urine Leukocyte Esterase 2+H, Urine RBC 5-10H, Urine WBC 10 -15H, Urine Squamous Epithelial Cells Few, Urine Amorphous Sediment ManyH, Urine Bacteria ModerateH, Urine Yeast ManyH 06/16/18 05:00: White Blood Count 22.2*H, Red Blood Count 4.95, Hemoglobin 11.4L, Hematocrit 36.4L, Mean Corpuscular Volume 73L, Mean Corpuscular Hemoglobin 23.0L, Mean Corpuscular Hemoglobin Concent 31.3L, Red Cell Distribution Width 17.8H, Platelet Count 409, Mean Platelet Volume 7.5, Neutrophils (%) (Auto) , Lymphocytes (%) (Auto) , Monocytes (%) (Auto) , Eosinophils (%) (Auto) , Basophils (%) (Auto) , Differential Total Cells Counted 100, Neutrophils % ( Manual) 86H, Lymphocytes % (Manual) 7L, Monocytes % (Manual) 4, Eosinophils % ( Manual) 3, Basophils % (Manual) 0, Band Neutrophils 0, Platelet Estimate Adequate, Platelet Morphology Normal, Hypochromasia 1+, Anisocytosis 1+, Microcytosis 1+, Sodium Level 143, Potassium Level 4.4, Chloride Level 105, Carbon Dioxide Level 28, Anion Gap 10, Blood Urea Nitrogen 51H, Creatinine 2.5H , Estimat Glomerular Filtration Rate , Glucose Level 111H, Calcium Level 9.8, Total Bilirubin 0.6, Direct Bilirubin 0.2, Aspartate Amino Transf (AST/SGOT) 17 , Alanine Aminotransferase (ALT/SGPT) 27, Alkaline Phosphatase 112, C-Reactive Protein, Quantitative 45.0H, Total Protein 7.4, Albumin 2.5L Current Medications Medications (Trade) Dose Ordered Sig/Ann Route PRN Reason Start Time Stop Time Status Last Admin Dose Admin Acetaminophen (Tylenol) 650 mg Q4H PRN ORAL Mild Pain/Temp > 100.5 06/12/18 18:00 06/27/18 17:59 06/15/18 11:48 Acetylcysteine (Mucomyst) 100 mg Q4HRT HHN 06/12/18 19:00 07/09/18 21:29 06/16/18 13:55 Albuterol/ Ipratropium (Albuterol/ Ipratropium) 3 ml Q4H PRN HHN Shortness of Breath 06/14/18 23:45 06/19/18 23:44 06/16/18 13:56 Amiodarone HCl (Cordarone) 100 mg DAILY ORAL 06/13/18 09:00 06/30/18 08:59 06/16/18 10:09 Amlodipine Besylate (Norvasc) 5 mg BID ORAL 06/12/18 18:00 06/27/18 08:59 06/16/18 10:09 Cefepime HCl 1 gm/ Dextrose 55 ml @ 110 mls/hr Q24H IV 06/13/18 09:00 06/17/18 23:59 06/16/18 10:08 Chlorhexidine Gluconate (Myra-Hex 2%) 1 applic DAILY@2000 TOPIC 06/12/18 20:00 07/02/18 19:59 06/15/18 21:03 Dextrose/ Electrolytes 1,000 ml @ 75 mls/hr [id number] IV 06/16/18 09:45 06/16/18 17:59 06/16/18 10:17 Dextrose/ Electrolytes 1,000 ml @ 75 mls/hr [id number] IV 06/16/18 18:00 07/16/18 17:59 Haloperidol Lactate (Haldol) 5 mg Q6H PRN IM Agitation 06/12/18 18:15 07/08/18 12:14 Heparin Sodium (Porcine) (Heparin 5000 units/ml) 5,000 units EVERY 12 HOURS SUBQ 06/12/18 21:00 06/27/18 08:59 06/16/18 10:12 Lorazepam (Ativan 2mg/ml 1ml) 0.5 mg Q3H PRN IV For Anxiety 06/12/18 18:15 06/18/18 15:11 Metoprolol Tartrate (Lopressor) 5 mg Q6H PRN IVP SBP > 125 06/16/18 11:14 07/16/18 11:13 06/16/18 11:20 Nitroglycerin (Ntg) 0.4 mg Q5M PRN SL Prn Chest Pain 06/12/18 17:45 06/27/18 13:29 Ondansetron HCl (Zofran) 4 mg Q6H PRN IVP Nausea & Vomiting 06/12/18 18:00 06/27/18 17:59 Pantoprazole (Protonix) 40 mg DAILY IV 06/13/18 09:00 07/03/18 08:59 06/16/18 10:17 Polyethylene Glycol (Miralax) 17 gm BEDTIME ORAL 06/12/18 21:00 07/06/18 20:59 06/15/18 21:04 Polyethylene Glycol (Miralax) 17 gm DAILYPRN PRN ORAL Constipation 06/12/18 18:00 07/12/18 17:59 Quetiapine Fumarate (SEROquel) 25 mg Q6H PRN ORAL For Anxiety 06/12/18 18:00 06/29/18 17:59 06/16/18 10:20 Vancomycin HCl (Vanco rx to dose) 1 ea DAILY PRN MISC Per rx protocol 06/12/18 18:00 07/12/18 17:59 Vancomycin HCl 750 mg/Sodium Chloride 275 ml @ 183.333 mls/hr Q48H IVPB 06/12/18 16:00 06/17/18 15:59 06/14/18 16:33 Critical Care - Objective Last 24 Hour Vital Signs Date Time Temp Pulse Resp B/P (MAP) Pulse Ox O2 Delivery O2 Flow Rate FiO2 06/17/18 21:04 83 16 50 06/17/18 20:00 Endotracheal Tube Endotracheal Tube 06/17/18 20:00 97 06/17/18 20:00 98.5 94 16 120/54 (76) 100 06/17/18 20:00 50 06/17/18 19:25 86 18 100 Mechanical Ventilator 50 06/17/18 19:15 83 16 50 06/17/18 19:12 95 16 100 Mechanical Ventilator 50 06/17/18 19:00 98 16 127/62 (83) 100 06/17/18 18:00 92 21 140/60 (86) 100 06/17/18 17:37 98.1 06/17/18 17:26 95 19 50 06/17/18 17:00 99 19 164/64 (97) 100 06/17/18 16:03 Endotracheal Tube Endotracheal Tube 06/17/18 16:00 50 06/17/18 16:00 101 06/17/18 16:00 99.3 97 19 118/51 (73) 100 06/17/18 15:27 117 25 50 06/17/18 15:20 Mechanical Ventilator 50 06/17/18 15:20 Mechanical Ventilator 50 06/17/18 15:00 100 20 118/51 (73) 100 06/17/18 14:00 92 18 118/66 (83) 100 06/17/18 13:08 98 19 50 06/17/18 13:00 96 17 132/51 (78) 100 06/17/18 12:00 98.8 96 25 137/58 (84) 100 06/17/18 12:00 Endotracheal Tube Endotracheal Tube 06/17/18 12:00 50 06/17/18 12:00 91 06/17/18 11:07 Mechanical Ventilator 50 06/17/18 11:07 Mechanical Ventilator 50 06/17/18 11:00 89 17 100/52 (68) 98 06/17/18 10:34 120 17 50 06/17/18 10:13 99.3 06/17/18 10:00 103 18 124/46 (72) 98 06/17/18 09:00 107 19 124/46 (72) 99 06/17/18 08:52 121 20 50 06/17/18 08:00 Endotracheal Tube Endotracheal Tube 06/17/18 08:00 118 06/17/18 08:00 99.6 112 20 103/43 (63) 100 06/17/18 08:00 50 06/17/18 07:00 114 20 133/79 (97) 100 06/17/18 06:56 119 20 50 06/17/18 06:56 121 20 Mechanical Ventilator 50 06/17/18 06:55 Mechanical Ventilator 50 06/17/18 06:55 Mechanical Ventilator 50 06/17/18 06:00 105 20 112/40 (64) 100 06/17/18 05:10 117 20 50 06/17/18 05:00 105 20 96/40 (58) 100 06/17/18 04:00 50 06/17/18 04:00 98.8 124 20 123/56 (78) 100 06/17/18 04:00 Endotracheal Tube 50.0 Endotracheal Tube 06/17/18 04:00 119 06/17/18 03:03 Mechanical Ventilator 06/17/18 03:02 142 20 100 Mechanical Ventilator 50 06/17/18 03:01 142 20 50 06/17/18 03:00 124 20 80/42 (55) 100 06/17/18 02:00 124 20 109/47 (67) 100 06/17/18 01:20 110 20 50 06/17/18 01:00 125 20 129/64 (85) 100 06/17/18 00:00 98.8 109 22 98/59 (72) 100 06/17/18 00:00 Endotracheal Tube 06/17/18 00:00 50 06/16/18 23:00 124 20 117/49 (71) 100 06/16/18 22:50 120 21 100 Mechanical Ventilator 50 06/16/18 22:39 115 20 100 Mechanical Ventilator 50 06/16/18 22:38 115 20 50 06/16/18 22:00 119 20 97/45 (62) 100 Micro: Microbiology Date/Time Source Procedure Growth Status 06/15/18 19:30 Blood Blood Culture - Preliminary NO GROWTH AFTER 24 HOURS Resulted 06/15/18 19:15 Blood Blood Culture - Preliminary NO GROWTH AFTER 24 HOURS Resulted 06/15/18 17:30 Sputum Gram Stain - Final Resulted 06/15/18 17:30 Sputum Culture - Preliminary Gram Negative Bacillus 1 Staphylococcus Aureus Resulted 06/15/18 17:30 Indwelling Cath Urine Culture - Preliminary Resulted Critical Care - Subjective ROS Limited/Unobtainable: No Condition: stable FI02: 50 Vent Support Breath Rate: 16 Vent Support Mode: AC Vent Tidal Volume: 400 Sputum Amount: Small PEEP: 5.0 PIP: 24 Tube Feeding Amount: 20 I&O: Intake and Output 06/16/18 06/17/18 19:00 07:00 Intake Total 900 ml Output Total 90 ml 340 ml Balance -90 ml 560 ml IV Total 900 ml Output Urine Total 90 ml 340 ml # Bowel Movements 1 ET-Tube: 7.5 ET Position: 23 Clint Zaidi MD Jun 17, 2018 21:41
--- NOTE | 2018-06-17 23:30 | NUR ---
NURSE NOTES: patient in bed sleeping comfortably. No s/s of acute distress noted. Temp 98.8 Axillary. Will continue plan of care
[2018-06-18] VITALS (24 sets, daily range): BP systolic 89–162; BP diastolic 40–79
--- NOTE | 2018-06-18 01:30 | NUR ---
NURSE NOTES: Repositioned. No s/s of acute distress noted. SR on the quality assurance monitor chassis HR [id number]. On p200 for wound management. Contact isolation maintained and observed No moaning no facial grimaces. Will continue plan of care.
[2018-06-18] MEDS: Albuterol/Ipratropium 3ml neb HHN PRN ×6 (03:30→23:28)
--- NOTE | 2018-06-18 03:30 | NUR ---
NURSE NOTES: patient in bed sleeping comfortably. No s/s of acute distress noted. Temp 98.4 Axillary. Will continue plan of care
[2018-06-18] MEDS: Acetylcysteine 20% Soln 4ml HHN SCH ×6 (03:31→23:28)
[2018-06-18] MEDS: D5 1/2NS 1,000 ML IV SCH ×2 (04:01→17:48)
--- NOTE | 2018-06-18 05:30 | NUR ---
NURSE NOTES: AM care done,bed bath given tolerated well. Oral care provided. Bilateral soft wrist restrain checked. Sinclair draining 20-35cc/hr. HOB elevated. NGT intact running Jevity 1.2 at 20cc/hr tolerated well, no residual. Will continue plan of care.
[2018-06-18 06:10] LABS: BASOPHILS % (AUTO) 0.5 % (0.0-2.0); EOSINOPHILS % (AUTO) 8.8 % (0.0-3.0); HEMATOCRIT 32.7 % (37.0-47.0); LYMPHOCYTES % (AUTO) 26.4 % (20.0-45.0); MEAN CORPUSCULAR VOLUME 73 FL (80-99); MONOCYTES % (AUTO) 4.8 % (1.0-10.0); NEUTROPHILS % (AUTO) 59.6 % (45.0-75.0); PLATELET COUNT 316 K/UL (150-450); RED BLOOD COUNT 4.46 M/UL (4.20-5.40); RED CELL DISTRIBUTION WIDTH 18.4 % (11.6-14.8); WHITE BLOOD COUNT 14.7 K/UL (4.8-10.8)
[2018-06-18 06:44] LABS: AMMONIA 23 umol/L (11-32)
[2018-06-18 07:09] LABS: ALANINE AMINOTRANSFERASE 24 U/L (12-78); ALBUMIN 2.1 G/DL (3.4-5.0); ALBUMIN/GLOBULIN RATIO 0.4 (1.0-2.7); ALKALINE PHOSPHATASE 100 U/L (46-116); ANION GAP 9 mmol/L (5-15); ASPARTATE AMINO TRANSFERASE 23 U/L (15-37); BILIRUBIN,TOTAL 0.3 MG/DL (0.2-1.0); BLOOD UREA NITROGEN 71 mg/dL (7-18); CALCIUM 8.5 MG/DL (8.5-10.1); CARBON DIOXIDE 27 MMOL/L (21-32); CHLORIDE 102 MMOL/L (98-107); CREATINE KINASE 97 U/L (26-308); CREATININE 4.5 MG/DL (0.55-1.30); GAMMA GLUTAMYL TRANSPEPTIDASE 19 U/L (5-85); PHOSPHORUS 3.5 MG/DL (2.5-4.9); POTASSIUM 4.4 MMOL/L (3.5-5.1); SODIUM 138 MMOL/L (136-145)
--- NOTE | 2018-06-18 07:15 | NUR ---
HAND-OFF: Report given to MARGY Alonso. Endorsed to Gavin RN to follow the +c-diff to MD and ID , Charge nurse aware.
--- NOTE | 2018-06-18 07:30 | NUR ---
NURSE NOTES: Received report from Alicai JI. Pt sleepy, able to follow simple commands. Pt connected to cardiac tech, SR. Pt orally intubated ETT 7.5, 23 cm lipline, AC 16, TV 400, 50% fiO2 and PEEP 5. Pt R NGT with glucerna 1.2 running at 30 cc/hr. MILY PICC connectd to D 5 1/2 NS @ 75 cc/hr. Bilateral soft wrist restraints intact, pt trying to pull out tubes and get OOB. Safety measures in place with bed locked and in lowest position, side rails x3 up and bed alarm activated. Will continue to monitor and continue plan of care.
--- NOTE | 2018-06-18 08:08 | Infectious Diseases Prog Note ---
Assessment/Plan Assessment/Plan 87 yo feamle with PMHx of COPD, HTN, and A.fib sent to the ED from her nuring home for SOB. Sepsis - Likely PNA 06/17 CXR: Increasing right lung opacity, likely representing decreasing pleural fluid but may also represent increasing parenchymal consolidation 06/15 CXR: Increasing opacification right hemithorax, likely reflecting increasing pleural fluid but may also reflect increasing pulmonary parenchymal consolidation 06/14 CXR: Diffuse right lung hazy opacity appears similar to the prior exam. 06/12 CXR: : Hazy opacification of the right hemithorax, likely reflecting pleural fluid, is unchanged. 05/28/18 CXR with atalectasis vs consolidation in the right side. 06/01/18 CXR - Extensive right hemithorax opacification UA (-) sputum cx 06/15: S.aureus (likely a colonizer at this point), GNB Sputum Cx 05/28/18 - MRSA (Inf Neg) Urine legionella (-) Acute respiratory failure s/p intubation 06/16 R lung collapse: -06/16 CXR: Complete opacification of the right hemithorax. Probably due to complete atelectasis of the right lung, with evidence of abrupt occlusion of the rightmainstem bronchus. Given findings on prior chest radiographs, there is probablysignificant component of pleural effusion as well. Positive blood Cx - Likely contaminant BCx 05/28/18 - CoNS BCX 05/30/18 - NGTD Leukocytosis 15 on admit - now recurrent mild leukocytosis Febrile to 101.5 - now resolved COPD CAD A. fib PLAN - Continue Meropenem #3 (abx d #22) given rise in WBC and pending repeat cultures -Continue vancomycin #22 -06/16 SP Cefepime #20 - Monitor CBC and Temps -f/u Repaeat cultures, Cdiff We will continue to follow Ms. Nowak during this hospitalization. Subjective Allergies: Coded Allergies: Mushroom (Verified Allergy, Severe, 05/28/18) MORPHINE (Unverified Allergy, Intermediate, Itching, 01/04/15) PENICILLINS (Unverified Allergy, Intermediate, Hives, 01/04/15) CELECOXIB (Verified Allergy, Mild, 01/15/09) Subjective Intubated Afebrile Leukocytosis improving Objective Vital Signs Last 24 Hour Vital Signs Date Time Temp Pulse Resp B/P (MAP) Pulse Ox O2 Delivery O2 Flow Rate FiO2 06/18/18 08:02 97 17 100 Mechanical Ventilator 50 06/18/18 08:01 88 17 50 06/18/18 07:00 82 18 119/55 (76) 100 06/18/18 06:00 90 16 128/54 (78) 100 06/18/18 05:00 87 16 129/54 (79) 100 06/18/18 04:35 95 19 50 06/18/18 04:00 Endotracheal Tube Endotracheal Tube 06/18/18 04:00 97 06/18/18 04:00 50 06/18/18 04:00 98.6 82 16 121/53 (75) 100 06/18/18 03:46 95 19 100 Mechanical Ventilator 50 06/18/18 03:36 78 16 50 06/18/18 03:36 76 17 100 Mechanical Ventilator 50 06/18/18 03:00 76 16 135/65 (88) 100 06/18/18 02:00 78 16 114/52 (72) 100 06/18/18 01:00 77 17 122/54 (76) 100 06/18/18 00:35 78 17 50 06/18/18 00:00 90 06/18/18 00:00 50 06/18/18 00:00 98.8 83 16 131/63 (85) 100 06/18/18 00:00 Endotracheal Tube Endotracheal Tube 06/17/18 23:23 80 16 100 Mechanical Ventilator 50 06/17/18 23:11 78 17 100 Mechanical Ventilator 50 06/17/18 23:11 81 16 50 06/17/18 23:00 79 16 105/44 (64) 100 06/17/18 22:00 78 16 108/55 (72) 100 94 06/17/18 21:04 83 16 50 06/17/18 21:00 90 16 141/57 (85) 100 94 06/17/18 20:00 Endotracheal Tube Endotracheal Tube 06/17/18 20:00 97 06/17/18 20:00 98.5 94 16 120/54 (76) 100 06/17/18 20:00 50 06/17/18 19:25 86 18 100 Mechanical Ventilator 50 06/17/18 19:15 83 16 50 06/17/18 19:12 95 16 100 Mechanical Ventilator 50 06/17/18 19:00 98 16 127/62 (83) 100 06/17/18 18:00 92 21 140/60 (86) 100 06/17/18 17:37 98.1 06/17/18 17:26 95 19 50 06/17/18 17:00 99 19 164/64 (97) 100 06/17/18 16:03 Endotracheal Tube Endotracheal Tube 06/17/18 16:00 50 06/17/18 16:00 101 06/17/18 16:00 99.3 97 19 118/51 (73) 100 06/17/18 15:27 117 25 50 06/17/18 15:20 Mechanical Ventilator 50 06/17/18 15:20 Mechanical Ventilator 50 06/17/18 15:00 100 20 118/51 (73) 100 06/17/18 14:00 92 18 118/66 (83) 100 06/17/18 13:08 98 19 50 06/17/18 13:00 96 17 132/51 (78) 100 06/17/18 12:00 98.8 96 25 137/58 (84) 100 06/17/18 12:00 Endotracheal Tube Endotracheal Tube 06/17/18 12:00 50 06/17/18 12:00 91 06/17/18 11:07 Mechanical Ventilator 50 06/17/18 11:07 Mechanical Ventilator 50 06/17/18 11:00 89 17 100/52 (68) 98 06/17/18 10:34 120 17 50 06/17/18 10:13 99.3 06/17/18 10:00 103 18 124/46 (72) 98 06/17/18 09:00 107 19 124/46 (72) 99 06/17/18 08:52 121 20 50 Height (Feet): 5 Height (Inches): 4.00 Weight (Pounds): 127 Objective General: NAD, Intubated HEENT: NCAT, DMM, PERRL LUNGS: Course B/L HEART; RRR Abdomen: Soft, NT, ND, + BS Microbiology Date/Time Source Procedure Growth Status 06/15/18 19:30 Blood Blood Culture - Preliminary NO GROWTH AFTER 48 HOURS Resulted 06/15/18 19:15 Blood Blood Culture - Preliminary NO GROWTH AFTER 48 HOURS Resulted 06/15/18 17:30 Sputum Gram Stain - Final Resulted 06/15/18 17:30 Sputum Culture - Preliminary Gram Negative Bacillus 1 Staphylococcus Aureus Resulted 06/17/18 17:30 Stool Clostridium difficile Toxin Assay - Final Complete 06/15/18 17:30 Indwelling Cath Urine Culture - Final NO GROWTH AFTER 48 HOURS Complete Laboratory Tests Test 06/17/18 10:05 06/18/18 05:00 Arterial Blood pH 7.431 (7.350-7.450) Arterial Blood Partial Pressure CO2 42.2 mmHg (35.0-45.0) Arterial Blood Partial Pressure O2 87.3 mmHg (75.0-100.0) Arterial Blood HCO3 27.4 mmol/L (22.0-26.0) H Arterial Blood Oxygen Saturation 96.5 % (95-100) Arterial Blood Base Excess 2.9 (-2-2) H David Test Positive White Blood Count 14.7 K/UL (4.8-10.8) H Red Blood Count 4.46 M/UL (4.20-5.40) Hemoglobin 10.0 G/DL (12.0-16.0) L Hematocrit 32.7 % (37.0-47.0) L Mean Corpuscular Volume 73 FL (80-99) L Mean Corpuscular Hemoglobin 22.4 PG (27.0-31.0) L Mean Corpuscular Hemoglobin Concent 30.5 G/DL (32.0-36.0) L Red Cell Distribution Width 18.4 % (11.6-14.8) H Platelet Count 316 K/UL (150-450) Mean Platelet Volume 8.0 FL (6.5-10.1) Neutrophils (%) (Auto) 59.6 % (45.0-75.0) Lymphocytes (%) (Auto) 26.4 % (20.0-45.0) Monocytes (%) (Auto) 4.8 % (1.0-10.0) Eosinophils (%) (Auto) 8.8 % (0.0-3.0) H Basophils (%) (Auto) 0.5 % (0.0-2.0) Sodium Level 138 MMOL/L (136-145) Potassium Level 4.4 MMOL/L (3.5-5.1) Chloride Level 102 MMOL/L (98-107) Carbon Dioxide Level 27 MMOL/L (21-32) Anion Gap 9 mmol/L (5-15) Blood Urea Nitrogen 71 mg/dL (7-18) H Creatinine 4.5 MG/DL (0.55-1.30) H Estimat Glomerular Filtration Rate mL/min (>60) Glucose Level 115 MG/DL (74-106) H Uric Acid 8.2 MG/DL (2.6-7.2) H Calcium Level 8.5 MG/DL (8.5-10.1) Phosphorus Level 3.5 MG/DL (2.5-4.9) Magnesium Level 2.1 MG/DL (1.8-2.4) Total Bilirubin 0.3 MG/DL (0.2-1.0) Gamma Glutamyl Transpeptidase 19 U/L (5-85) Aspartate Amino Transf (AST/SGOT) 23 U/L (15-37) Alanine Aminotransferase (ALT/SGPT) 24 U/L (12-78) Alkaline Phosphatase 100 U/L (46-116) Ammonia 23 umol/L (11-32) Total Creatine Kinase 97 U/L (26-308) Troponin I 0.012 ng/mL (0.000-0.056) Pro-B-Type Natriuretic Peptide 3290 pg/mL (0-125) H Total Protein 6.8 G/DL (6.4-8.2) Albumin 2.1 G/DL (3.4-5.0) L Globulin 4.7 g/dL Albumin/Globulin Ratio 0.4 (1.0-2.7) L Random Vancomycin Level 24.9 ug/mL Current Medications Medications (Trade) Dose Ordered Sig/Ann Route PRN Reason Start Time Stop Time Status Last Admin Dose Admin Acetaminophen (Tylenol) 650 mg Q4H PRN ORAL Mild Pain/Temp > 100.5 06/16/18 19:19 07/16/18 19:18 06/17/18 17:07 Acetylcysteine (Mucomyst) 100 mg Q4HRT HHN 06/16/18 23:00 07/09/18 21:29 06/18/18 08:01 Albuterol/ Ipratropium (Albuterol/ Ipratropium) 3 ml Q4H PRN HHN Shortness of Breath 06/16/18 19:45 06/19/18 23:44 06/18/18 08:00 Amiodarone HCl (Cordarone) 200 mg BID ORAL 06/17/18 09:00 07/17/18 08:59 06/17/18 17:07 Chlorhexidine Gluconate (Myra-Hex 2%) 1 applic DAILY@2000 TOPIC 06/16/18 20:00 07/02/18 19:59 06/17/18 20:34 Dextrose/Sodium Chloride 1,000 ml @ 75 mls/hr [id number] IV 06/17/18 15:00 07/17/18 14:59 06/18/18 04:01 Haloperidol Lactate (Haldol) 5 mg Q6H PRN IM Agitation 06/16/18 19:20 07/16/18 19:19 Heparin Sodium (Porcine) (Heparin 5000 units/ml) 5,000 units EVERY 12 HOURS SUBQ 06/16/18 21:00 06/27/18 08:59 06/17/18 20:36 Lorazepam (Ativan 2mg/ml 1ml) 0.5 mg Q3H PRN IV For Anxiety 06/16/18 19:20 06/23/18 19:19 06/17/18 20:34 Meropenem 500 mg/ Sodium Chloride 55 ml @ 110 mls/hr Q24H IVPB 06/17/18 18:00 06/21/18 17:59 06/17/18 17:34 Metoprolol Tartrate (Lopressor) 5 mg Q6H PRN IVP SBP > 125 06/16/18 19:20 07/16/18 19:19 Nitroglycerin (Ntg) 0.4 mg Q5M PRN SL Prn Chest Pain 06/16/18 19:20 06/27/18 13:29 Ondansetron HCl (Zofran) 4 mg Q6H PRN IVP Nausea & Vomiting 06/16/18 19:21 07/16/18 19:20 Pantoprazole (Protonix) 40 mg DAILY IV 06/17/18 09:00 07/03/18 08:59 06/17/18 09:26 Polyethylene Glycol (Miralax) 17 gm BEDTIME ORAL 06/16/18 21:00 07/06/18 20:59 06/17/18 20:34 Polyethylene Glycol (Miralax) 17 gm DAILYPRN PRN ORAL Constipation 06/16/18 19:21 07/16/18 19:20 Quetiapine Fumarate (SEROquel) 25 mg Q6H PRN ORAL For Anxiety 06/16/18 19:21 07/16/18 19:20 Clint Harris MD Jun 18, 2018 08:08
[2018-06-18] MEDS: Amiodarone 200mg tab ORAL SCH ×2 (08:52→17:48)
[2018-06-18] MEDS: Pantoprazole Inj IV SCH (08:58)
[2018-06-18] MEDS: Heparin 5000 units/ml inj SUBQ SCH ×2 (09:02→21:27)
[2018-06-18] MEDS: LORazepam Inj 2mg/ml 1ml IV PRN ×2 (09:30→18:12)
--- NOTE | 2018-06-18 09:45 | NUR ---
NURSE NOTES: Pt restless. Given ativan IV prn. Oral care done. Turned and repositioned pt. Will continue to monitor.
--- NOTE | 2018-06-18 11:17 | NUR ---
NURSE NOTES: Dr Jimenez here to see pt. talked to POA/son about need for dialysis. POA will call back for decision. WIll continue to monitor.
--- NOTE | 2018-06-18 11:56 | Nephrology Progress Note ---
Assessment/Plan Problem List: (1) Acute renal failure Assessment: Cr rising (2) Anuria (3) Acute respiratory failure Assessment: on vent (4) Dementia (5) Afib Assessment no UO Cr rising other conditions: (1) Acute respiratory failure (2) Aspiration pneumonia (3) Acute encephalopathy (4) Pleural effusion (5) COPD (chronic obstructive pulmonary disease) (6) CAD (coronary artery disease) (7) Dementia Plan monitor vanco level discussed with Son- Offered HD- he will get back to [place]- re intubated now DC Lasix Fluid challenge K and Phos and Mag as needed Anemia porter Adjust BP meds fu Lytes Gastric support pulm support- not tolerating bipap per orders Subjective ROS Limited/Unobtainable: Yes Objective Objective Last 24 Hour Vital Signs Date Time Temp Pulse Resp B/P (MAP) Pulse Ox O2 Delivery O2 Flow Rate FiO2 06/18/18 11:46 80 16 50 06/18/18 11:44 74 17 100 Mechanical Ventilator 50 06/18/18 11:00 79 16 128/79 (95) 100 06/18/18 10:00 87 18 123/68 (86) 99 06/18/18 09:00 103 21 129/66 (87) 100 06/18/18 08:30 105 16 50 06/18/18 08:22 105 17 100 Mechanical Ventilator 50 06/18/18 08:02 97 17 100 Mechanical Ventilator 50 06/18/18 08:01 88 17 50 06/18/18 08:00 97.7 97 18 129/66 (87) 100 06/18/18 08:00 Endotracheal Tube Endotracheal Tube 06/18/18 08:00 121 06/18/18 08:00 50 06/18/18 07:00 82 18 119/55 (76) 100 06/18/18 06:00 90 16 128/54 (78) 100 06/18/18 05:00 87 16 129/54 (79) 100 06/18/18 04:35 95 19 50 06/18/18 04:00 Endotracheal Tube Endotracheal Tube 06/18/18 04:00 97 06/18/18 04:00 50 06/18/18 04:00 98.6 82 16 121/53 (75) 100 06/18/18 03:46 95 19 100 Mechanical Ventilator 50 06/18/18 03:36 78 16 50 06/18/18 03:36 76 17 100 Mechanical Ventilator 50 06/18/18 03:00 76 16 135/65 (88) 100 06/18/18 02:00 78 16 114/52 (72) 100 06/18/18 01:00 77 17 122/54 (76) 100 06/18/18 00:35 78 17 50 06/18/18 00:00 90 06/18/18 00:00 50 06/18/18 00:00 98.8 83 16 131/63 (85) 100 06/18/18 00:00 Endotracheal Tube Endotracheal Tube 06/17/18 23:23 80 16 100 Mechanical Ventilator 50 06/17/18 23:11 78 17 100 Mechanical Ventilator 50 06/17/18 23:11 81 16 50 06/17/18 23:00 79 16 105/44 (64) 100 06/17/18 22:00 78 16 108/55 (72) 100 94 06/17/18 21:04 83 16 50 06/17/18 21:00 90 16 141/57 (85) 100 94 06/17/18 20:00 Endotracheal Tube Endotracheal Tube 06/17/18 20:00 97 06/17/18 20:00 98.5 94 16 120/54 (76) 100 06/17/18 20:00 50 06/17/18 19:25 86 18 100 Mechanical Ventilator 50 06/17/18 19:15 83 16 50 06/17/18 19:12 95 16 100 Mechanical Ventilator 50 06/17/18 19:00 98 16 127/62 (83) 100 06/17/18 18:00 92 21 140/60 (86) 100 06/17/18 17:37 98.1 06/17/18 17:26 95 19 50 06/17/18 17:00 99 19 164/64 (97) 100 06/17/18 16:03 Endotracheal Tube Endotracheal Tube 06/17/18 16:00 50 06/17/18 16:00 101 06/17/18 16:00 99.3 97 19 118/51 (73) 100 06/17/18 15:27 117 25 50 06/17/18 15:20 Mechanical Ventilator 50 06/17/18 15:20 Mechanical Ventilator 50 06/17/18 15:00 100 20 118/51 (73) 100 06/17/18 14:00 92 18 118/66 (83) 100 06/17/18 13:08 98 19 50 06/17/18 13:00 96 17 132/51 (78) 100 06/17/18 12:00 98.8 96 25 137/58 (84) 100 06/17/18 12:00 Endotracheal Tube Endotracheal Tube 06/17/18 12:00 50 06/17/18 12:00 91 Intake and Output 06/17/18 06/18/18 18:59 06:59 Intake Total 1200 ml 1586 ml Output Total 70 ml 295 ml Balance 1130 ml 1291 ml Free Water 190 ml 366 ml IV Total 900 ml 900 ml Tube Feeding 110 ml 320 ml Output Urine Total 70 ml 295 ml Laboratory Tests 06/18/18 05:00: White Blood Count 14.7H, Red Blood Count 4.46, Hemoglobin 10.0L, Hematocrit 32.7L, Mean Corpuscular Volume 73L, Mean Corpuscular Hemoglobin 22.4L, Mean Corpuscular Hemoglobin Concent 30.5L, Red Cell Distribution Width 18.4H, Platelet Count 316, Mean Platelet Volume 8.0, Neutrophils (%) (Auto) 59.6, Lymphocytes (%) (Auto) 26.4, Monocytes (%) (Auto) 4.8, Eosinophils (%) (Auto) 8.8H, Basophils (%) (Auto) 0.5, Sodium Level 138, Potassium Level 4.4, Chloride Level 102, Carbon Dioxide Level 27, Anion Gap 9, Blood Urea Nitrogen 71H, Creatinine 4.5H, Estimat Glomerular Filtration Rate , Glucose Level 115H, Uric Acid 8.2H, Calcium Level 8.5, Phosphorus Level 3.5, Magnesium Level 2.1, Total Bilirubin 0.3, Gamma Glutamyl Transpeptidase 19, Aspartate Amino Transf (AST/ SGOT) 23, Alanine Aminotransferase (ALT/SGPT) 24, Alkaline Phosphatase 100, Ammonia 23, Total Creatine Kinase 97, Troponin I 0.012, Pro-B-Type Natriuretic Peptide 3290H, Total Protein 6.8, Albumin 2.1L, Globulin 4.7, Albumin/Globulin Ratio 0.4L, Random Vancomycin Level 24.9 Height (Feet): 5 Height (Inches): 4.00 Weight (Pounds): 127 General Appearance: no apparent distress EENT: other - vented Cardiovascular: tachycardia Respiratory/Chest: decreased breath sounds Abdomen: soft Objective no change Kendrick Jimenez MD Jun 18, 2018 11:56
--- NOTE | 2018-06-18 12:32 | General Progress Note ---
Assessment/Plan Problem List: (1) COPD with acute exacerbation ICD Codes: J44.1 - Chronic obstructive pulmonary disease with (acute) exacerbation SNOMED: 874038802 (2) Pleural effusion ICD Codes: J90 - Pleural effusion, not elsewhere classified SNOMED: 68377798 (3) Afib ICD Codes: I48.91 - Unspecified atrial fibrillation SNOMED: 75488304 (4) CAD (coronary artery disease) ICD Codes: I25.10 - Atherosclerotic heart disease of [place] coronary artery without angina pectoris SNOMED: 36630474 (5) Respiratory failure ICD Codes: J96.90 - Respiratory failure, unspecified, unspecified whether with hypoxia or hypercapnia SNOMED: 501032679 (6) Failure to thrive SNOMED: 66807199 Assessment/Plan Assessment - Resp failure - NGT dependent - COPD - CHF - PNA - Anemia - Poor prognosis Recommendations - NGT feeds - Vent care - Elevated HOB - Monitor residuals - Abx - Pulmonary toilet - Await family decision re PEG Subjective ROS Limited/Unobtainable: No Allergies: Coded Allergies: Mushroom (Verified Allergy, Severe, 05/28/18) MORPHINE (Unverified Allergy, Intermediate, Itching, 01/04/15) PENICILLINS (Unverified Allergy, Intermediate, Hives, 01/04/15) CELECOXIB (Verified Allergy, Mild, 01/15/09) Objective Last 24 Hour Vital Signs Date Time Temp Pulse Resp B/P (MAP) Pulse Ox O2 Delivery O2 Flow Rate FiO2 06/18/18 12:08 95 16 100 Mechanical Ventilator 50 06/18/18 11:46 80 16 50 06/18/18 11:44 74 17 100 Mechanical Ventilator 50 06/18/18 11:00 79 16 128/79 (95) 100 06/18/18 10:00 87 18 123/68 (86) 99 06/18/18 09:00 103 21 129/66 (87) 100 06/18/18 08:30 105 16 50 06/18/18 08:22 105 17 100 Mechanical Ventilator 50 06/18/18 08:02 97 17 100 Mechanical Ventilator 50 06/18/18 08:01 88 17 50 06/18/18 08:00 97.7 97 18 129/66 (87) 100 06/18/18 08:00 Endotracheal Tube Endotracheal Tube 06/18/18 08:00 121 06/18/18 08:00 50 06/18/18 07:00 82 18 119/55 (76) 100 06/18/18 06:00 90 16 128/54 (78) 100 06/18/18 05:00 87 16 129/54 (79) 100 06/18/18 04:35 95 19 50 06/18/18 04:00 Endotracheal Tube Endotracheal Tube 06/18/18 04:00 97 06/18/18 04:00 50 06/18/18 04:00 98.6 82 16 121/53 (75) 100 06/18/18 03:46 95 19 100 Mechanical Ventilator 50 06/18/18 03:36 78 16 50 06/18/18 03:36 76 17 100 Mechanical Ventilator 50 06/18/18 03:00 76 16 135/65 (88) 100 06/18/18 02:00 78 16 114/52 (72) 100 06/18/18 01:00 77 17 122/54 (76) 100 06/18/18 00:35 78 17 50 06/18/18 00:00 90 06/18/18 00:00 50 06/18/18 00:00 98.8 83 16 131/63 (85) 100 06/18/18 00:00 Endotracheal Tube Endotracheal Tube 06/17/18 23:23 80 16 100 Mechanical Ventilator 50 06/17/18 23:11 78 17 100 Mechanical Ventilator 50 06/17/18 23:11 81 16 50 06/17/18 23:00 79 16 105/44 (64) 100 06/17/18 22:00 78 16 108/55 (72) 100 94 06/17/18 21:04 83 16 50 06/17/18 21:00 90 16 141/57 (85) 100 94 06/17/18 20:00 Endotracheal Tube Endotracheal Tube 06/17/18 20:00 97 06/17/18 20:00 98.5 94 16 120/54 (76) 100 06/17/18 20:00 50 06/17/18 19:25 86 18 100 Mechanical Ventilator 50 06/17/18 19:15 83 16 50 06/17/18 19:12 95 16 100 Mechanical Ventilator 50 06/17/18 19:00 98 16 127/62 (83) 100 06/17/18 18:00 92 21 140/60 (86) 100 06/17/18 17:37 98.1 06/17/18 17:26 95 19 50 06/17/18 17:00 99 19 164/64 (97) 100 06/17/18 16:03 Endotracheal Tube Endotracheal Tube 06/17/18 16:00 50 06/17/18 16:00 101 06/17/18 16:00 99.3 97 19 118/51 (73) 100 06/17/18 15:27 117 25 50 06/17/18 15:20 Mechanical Ventilator 50 06/17/18 15:20 Mechanical Ventilator 50 06/17/18 15:00 100 20 118/51 (73) 100 06/17/18 14:00 92 18 118/66 (83) 100 06/17/18 13:08 98 19 50 06/17/18 13:00 96 17 132/51 (78) 100 Intake and Output 06/17/18 06/18/18 18:59 06:59 Intake Total 1200 ml 1586 ml Output Total 70 ml 295 ml Balance 1130 ml 1291 ml Free Water 190 ml 366 ml IV Total 900 ml 900 ml Tube Feeding 110 ml 320 ml Output Urine Total 70 ml 295 ml Laboratory Tests 06/18/18 05:00: White Blood Count 14.7H, Red Blood Count 4.46, Hemoglobin 10.0L, Hematocrit 32.7L, Mean Corpuscular Volume 73L, Mean Corpuscular Hemoglobin 22.4L, Mean Corpuscular Hemoglobin Concent 30.5L, Red Cell Distribution Width 18.4H, Platelet Count 316, Mean Platelet Volume 8.0, Neutrophils (%) (Auto) 59.6, Lymphocytes (%) (Auto) 26.4, Monocytes (%) (Auto) 4.8, Eosinophils (%) (Auto) 8.8H, Basophils (%) (Auto) 0.5, Sodium Level 138, Potassium Level 4.4, Chloride Level 102, Carbon Dioxide Level 27, Anion Gap 9, Blood Urea Nitrogen 71H, Creatinine 4.5H, Estimat Glomerular Filtration Rate , Glucose Level 115H, Uric Acid 8.2H, Calcium Level 8.5, Phosphorus Level 3.5, Magnesium Level 2.1, Total Bilirubin 0.3, Gamma Glutamyl Transpeptidase 19, Aspartate Amino Transf (AST/ SGOT) 23, Alanine Aminotransferase (ALT/SGPT) 24, Alkaline Phosphatase 100, Ammonia 23, Total Creatine Kinase 97, Troponin I 0.012, C-Reactive Protein, Quantitative [Pending], Pro-B-Type Natriuretic Peptide 3290H, Total Protein 6.8 , Albumin 2.1L, Globulin 4.7, Albumin/Globulin Ratio 0.4L, Random Vancomycin Level 24.9 Height (Feet): 5 Height (Inches): 4.00 Weight (Pounds): 127 General Appearance: lethargic EENT: normal ENT inspection Neck: supple Cardiovascular: normal rate Respiratory/Chest: decreased breath sounds Abdomen: normal bowel sounds, non tender, soft Extremities: non-tender Jacobo Acevedo MD Jun 18, 2018 12:32
--- NOTE | 2018-06-18 12:50 | NUR ---
NURSE NOTES: Son, Tolu, called back and said he consulted with family and decided they want pt to have dialysis. Consent obtained for dialysis and dialysis catheter placement. Dr Jimenez called and he ordered labs for tomorrow. order dialysis dependent on the lab results tomorrow. Will continue to monitor.
--- NOTE | 2018-06-18 13:30 | NUR ---
NURSE NOTES: Dr Valderrama here to see pt. No acute distress. Will continue to monitor.
--- NOTE | 2018-06-18 13:51 | Pulmonolgy Critical Care Note ---
Critical Care - Asmt/Plan Assessment/Plan: Pulmonary Critical Care Progress Note HPI Patient is an 87 y/o female with hx of severe obstructive asthma, CHF, chronic hypercapnic respiratory failure admitted with respiratory distress and altered mental status. Apparently had R lung opacification and had been on BiPAP but was deemed to have failed bipap and intubated. She is currently on BiPAP, previously intubated. She has been treated with antibiotics for possible pneumonia. Some secretions noted. CXR todat NGT Right Stem Bronchus - now removed Assessment/Plan Problem List: 1. Acute on chronic hypercapnic respiratory failure 2. R lung atelectasis, possibly mucous plugging - improving on CXR 3. Pulmonary edema 4. chronic obstructive asthma 5. Pneumonia 6. Hx afib 7. MRSA pna, recurrent fever and increased leukocytosis Plan: -Continue current AC settings -aggressive pulmonary hygiene with duonebs/mucomyst/suctioning q4 -chest PT R lung -may need bronchoscopy -monitor volumes -monitor renal function -abx per ID, reculture Time: 45 min case d/w RN Subjective ROS Limited/Unobtainable: Yes Interval Events: Desaturating on BiPAP. CXR with complete collapse of right lung. Allergies: Coded Allergies: Mushroom (Verified Allergy, Severe, 05/28/18) MORPHINE (Unverified Allergy, Intermediate, Itching, 01/04/15) PENICILLINS (Unverified Allergy, Intermediate, Hives, 01/04/15) CELECOXIB (Verified Allergy, Mild, 01/15/09) Objective Vital Signs Noted General Appearance: other - Distress on BiPAP Respiratory/Chest: other - absent breath sounds on right Cardiovascular: normal rate Abdomen: soft, non tender Extremities: no edema Microbiology Date/Time Source Procedure Growth Status 06/15/18 17:30 Sputum Gram Stain - Final Resulted 06/15/18 17:30 Sputum Sputum Culture Pending Resulted 06/15/18 17:30 Indwelling Cath Urine Culture - Preliminary NO GROWTH Resulted Laboratory Tests 06/15/18 17:30: Urine Color Yellow, Urine Appearance Cloudy, Urine pH 5, Urine Specific [place] 1.010, Urine Protein 3+H, Urine Glucose (UA) Negative, Urine Ketones Negative, Urine Blood 4+H, Urine Nitrite Negative, Urine Bilirubin Negative, Urine Urobilinogen Normal, Urine Leukocyte Esterase 2+H, Urine RBC 5-10H, Urine WBC 10 -15H, Urine Squamous Epithelial Cells Few, Urine Amorphous Sediment ManyH, Urine Bacteria ModerateH, Urine Yeast ManyH 06/16/18 05:00: White Blood Count 22.2*H, Red Blood Count 4.95, Hemoglobin 11.4L, Hematocrit 36.4L, Mean Corpuscular Volume 73L, Mean Corpuscular Hemoglobin 23.0L, Mean Corpuscular Hemoglobin Concent 31.3L, Red Cell Distribution Width 17.8H, Platelet Count 409, Mean Platelet Volume 7.5, Neutrophils (%) (Auto) , Lymphocytes (%) (Auto) , Monocytes (%) (Auto) , Eosinophils (%) (Auto) , Basophils (%) (Auto) , Differential Total Cells Counted 100, Neutrophils % ( Manual) 86H, Lymphocytes % (Manual) 7L, Monocytes % (Manual) 4, Eosinophils % ( Manual) 3, Basophils % (Manual) 0, Band Neutrophils 0, Platelet Estimate Adequate, Platelet Morphology Normal, Hypochromasia 1+, Anisocytosis 1+, Microcytosis 1+, Sodium Level 143, Potassium Level 4.4, Chloride Level 105, Carbon Dioxide Level 28, Anion Gap 10, Blood Urea Nitrogen 51H, Creatinine 2.5H , Estimat Glomerular Filtration Rate , Glucose Level 111H, Calcium Level 9.8, Total Bilirubin 0.6, Direct Bilirubin 0.2, Aspartate Amino Transf (AST/SGOT) 17 , Alanine Aminotransferase (ALT/SGPT) 27, Alkaline Phosphatase 112, C-Reactive Protein, Quantitative 45.0H, Total Protein 7.4, Albumin 2.5L Current Medications Medications (Trade) Dose Ordered Sig/Ann Route PRN Reason Start Time Stop Time Status Last Admin Dose Admin Acetaminophen (Tylenol) 650 mg Q4H PRN ORAL Mild Pain/Temp > 100.5 06/12/18 18:00 06/27/18 17:59 06/15/18 11:48 Acetylcysteine (Mucomyst) 100 mg Q4HRT HHN 06/12/18 19:00 07/09/18 21:29 06/16/18 13:55 Albuterol/ Ipratropium (Albuterol/ Ipratropium) 3 ml Q4H PRN HHN Shortness of Breath 06/14/18 23:45 06/19/18 23:44 06/16/18 13:56 Amiodarone HCl (Cordarone) 100 mg DAILY ORAL 06/13/18 09:00 06/30/18 08:59 06/16/18 10:09 Amlodipine Besylate (Norvasc) 5 mg BID ORAL 06/12/18 18:00 06/27/18 08:59 06/16/18 10:09 Cefepime HCl 1 gm/ Dextrose 55 ml @ 110 mls/hr Q24H IV 06/13/18 09:00 06/17/18 23:59 06/16/18 10:08 Chlorhexidine Gluconate (Myra-Hex 2%) 1 applic DAILY@2000 TOPIC 06/12/18 20:00 07/02/18 19:59 06/15/18 21:03 Dextrose/ Electrolytes 1,000 ml @ 75 mls/hr [id number] IV 06/16/18 09:45 06/16/18 17:59 06/16/18 10:17 Dextrose/ Electrolytes 1,000 ml @ 75 mls/hr [id number] IV 06/16/18 18:00 07/16/18 17:59 Haloperidol Lactate (Haldol) 5 mg Q6H PRN IM Agitation 06/12/18 18:15 07/08/18 12:14 Heparin Sodium (Porcine) (Heparin 5000 units/ml) 5,000 units EVERY 12 HOURS SUBQ 06/12/18 21:00 06/27/18 08:59 06/16/18 10:12 Lorazepam (Ativan 2mg/ml 1ml) 0.5 mg Q3H PRN IV For Anxiety 06/12/18 18:15 06/18/18 15:11 Metoprolol Tartrate (Lopressor) 5 mg Q6H PRN IVP SBP > 125 06/16/18 11:14 07/16/18 11:13 06/16/18 11:20 Nitroglycerin (Ntg) 0.4 mg Q5M PRN SL Prn Chest Pain 06/12/18 17:45 06/27/18 13:29 Ondansetron HCl (Zofran) 4 mg Q6H PRN IVP Nausea & Vomiting 06/12/18 18:00 06/27/18 17:59 Pantoprazole (Protonix) 40 mg DAILY IV 06/13/18 09:00 07/03/18 08:59 06/16/18 10:17 Polyethylene Glycol (Miralax) 17 gm BEDTIME ORAL 06/12/18 21:00 07/06/18 20:59 06/15/18 21:04 Polyethylene Glycol (Miralax) 17 gm DAILYPRN PRN ORAL Constipation 06/12/18 18:00 07/12/18 17:59 Quetiapine Fumarate (SEROquel) 25 mg Q6H PRN ORAL For Anxiety 06/12/18 18:00 06/29/18 17:59 06/16/18 10:20 Vancomycin HCl (Vanco rx to dose) 1 ea DAILY PRN MISC Per rx protocol 06/12/18 18:00 07/12/18 17:59 Vancomycin HCl 750 mg/Sodium Chloride 275 ml @ 183.333 mls/hr Q48H IVPB 06/12/18 16:00 06/17/18 15:59 06/14/18 16:33 Critical Care - Objective Last 24 Hour Vital Signs Date Time Temp Pulse Resp B/P (MAP) Pulse Ox O2 Delivery O2 Flow Rate FiO2 06/18/18 13:09 93 21 50 06/18/18 13:00 79 14 110/50 (70) 100 06/18/18 12:08 95 16 100 Mechanical Ventilator 50 06/18/18 12:00 78 06/18/18 12:00 Endotracheal Tube Endotracheal Tube 06/18/18 12:00 98.0 79 8 118/59 (78) 100 06/18/18 12:00 50 06/18/18 11:46 80 16 50 06/18/18 11:44 74 17 100 Mechanical Ventilator 50 06/18/18 11:00 79 16 128/79 (95) 100 06/18/18 10:00 87 18 123/68 (86) 99 06/18/18 09:00 103 21 129/66 (87) 100 06/18/18 08:30 105 16 50 06/18/18 08:22 105 17 100 Mechanical Ventilator 50 06/18/18 08:02 97 17 100 Mechanical Ventilator 50 06/18/18 08:01 88 17 50 06/18/18 08:00 97.7 97 18 129/66 (87) 100 06/18/18 08:00 Endotracheal Tube Endotracheal Tube 06/18/18 08:00 79 06/18/18 08:00 50 06/18/18 07:00 82 18 119/55 (76) 100 06/18/18 06:00 90 16 128/54 (78) 100 06/18/18 05:00 87 16 129/54 (79) 100 06/18/18 04:35 95 19 50 06/18/18 04:00 Endotracheal Tube Endotracheal Tube 06/18/18 04:00 97 06/18/18 04:00 50 06/18/18 04:00 98.6 82 16 121/53 (75) 100 06/18/18 03:46 95 19 100 Mechanical Ventilator 50 06/18/18 03:36 78 16 50 06/18/18 03:36 76 17 100 Mechanical Ventilator 50 06/18/18 03:00 76 16 135/65 (88) 100 06/18/18 02:00 78 16 114/52 (72) 100 06/18/18 01:00 77 17 122/54 (76) 100 06/18/18 00:35 78 17 50 06/18/18 00:00 90 06/18/18 00:00 50 06/18/18 00:00 98.8 83 16 131/63 (85) 100 06/18/18 00:00 Endotracheal Tube Endotracheal Tube 06/17/18 23:23 80 16 100 Mechanical Ventilator 50 06/17/18 23:11 78 17 100 Mechanical Ventilator 50 06/17/18 23:11 81 16 50 06/17/18 23:00 79 16 105/44 (64) 100 06/17/18 22:00 78 16 108/55 (72) 100 94 06/17/18 21:04 83 16 50 06/17/18 21:00 90 16 141/57 (85) 100 94 06/17/18 20:00 Endotracheal Tube Endotracheal Tube 06/17/18 20:00 97 06/17/18 20:00 98.5 94 16 120/54 (76) 100 06/17/18 20:00 50 06/17/18 19:25 86 18 100 Mechanical Ventilator 50 06/17/18 19:15 83 16 50 06/17/18 19:12 95 16 100 Mechanical Ventilator 50 06/17/18 19:00 98 16 127/62 (83) 100 06/17/18 18:00 92 21 140/60 (86) 100 2/15/19 17:37 98.1 06/17/18 17:26 95 19 50 06/17/18 17:00 99 19 164/64 (97) 100 06/17/18 16:03 Endotracheal Tube Endotracheal Tube 06/17/18 16:00 50 06/17/18 16:00 101 06/17/18 16:00 99.3 97 19 118/51 (73) 100 06/17/18 15:27 117 25 50 06/17/18 15:20 Mechanical Ventilator 50 06/17/18 15:20 Mechanical Ventilator 50 06/17/18 15:00 100 20 118/51 (73) 100 06/17/18 14:00 92 18 118/66 (83) 100 Micro: Microbiology Date/Time Source Procedure Growth Status 06/15/18 19:30 Blood Blood Culture - Preliminary NO GROWTH AFTER 48 HOURS Resulted 06/15/18 19:15 Blood Blood Culture - Preliminary NO GROWTH AFTER 48 HOURS Resulted 06/15/18 17:30 Sputum Gram Stain - Final Complete 06/15/18 17:30 Sputum Culture - Final Escherichia Coli - Esbl Staphylococcus Aureus - Mrsa Complete 06/17/18 17:30 Stool Clostridium difficile Toxin Assay - Final Complete 06/15/18 17:30 Indwelling Cath Urine Culture - Final NO GROWTH AFTER 48 HOURS Complete Critical Care - Subjective ROS Limited/Unobtainable: No Condition: stable FI02: 50 Vent Support Breath Rate: 16 Vent Support Mode: AC Vent Tidal Volume: 400 Sputum Amount: Small PEEP: 5.0 PIP: 22 Tube Feeding Amount: 30 I&O: Intake and Output 06/17/18 06/18/18 18:59 06:59 Intake Total 1200 ml 1586 ml Output Total 70 ml 295 ml Balance 1130 ml 1291 ml Free Water 190 ml 366 ml IV Total 900 ml 900 ml Tube Feeding 110 ml 320 ml Output Urine Total 70 ml 295 ml ET-Tube: 7.5 ET Position: 23 Clint Zaidi MD Jun 18, 2018 13:51
--- NOTE | 2018-06-18 13:57 | General Progress Note ---
Assessment/Plan Status: deteriorating Assessment/Plan This is an 87-year-old female admitted with chronic obstructive pulmonary disease exacerbation, right lower lobe infiltrate/pneumonia with altered mental status and acute kidney injury. The patient will be admitted to [facility] with the following medical problems. 1. Chronic obstructive pulmonary disease exacerbation and pneumonia. The patient has been seen by Pulmonary. Infectious Disease has been consulted, pancultured. IV antibiotics per ID. Continue with BiPAP and suction p.r.n. Transition to Venturi-mask when stable. 2. Acute kidney injury. We will monitor I's and O's, gentle intravenous fluids. Repeat a BMP in a.m. Consider Nephrology consult. 3. History of chronic atrial fibrillation. Continue with amiodarone. The patient is in sinus rhythm at this time. 4. History of hypertension. Continue with amlodipine and hold for systolic blood pressure less than 110. 5. Altered mental status, most likely from above conditions. We will keep n.p.o. except for medications and start IV fluids. 6. DVT prophylaxis with heparin subcutaneous and SCDs. 7. The patient is Full Code per policy. We will discuss with the family. 8. hypokalmia 9. Anemia 10. CHf acute on chronic 11. leucocytosis 12. ARF? ATN Plan: - now intubated in icu - continue respiratory support - consider repeat Lasix today - aggressive pulmonary suction - may need HD soon - antibiotics per ID - am labs discussed with nurse and son Subjective Date patient seen: Jun 18, 2018 ROS Limited/Unobtainable: Yes Allergies: Coded Allergies: Mushroom (Verified Allergy, Severe, 05/28/18) MORPHINE (Unverified Allergy, Intermediate, Itching, 01/04/15) PENICILLINS (Unverified Allergy, Intermediate, Hives, 01/04/15) CELECOXIB (Verified Allergy, Mild, 01/15/09) Subjective patient is now reintubated, in renal failure, may need HD Objective Last 24 Hour Vital Signs Date Time Temp Pulse Resp B/P (MAP) Pulse Ox O2 Delivery O2 Flow Rate FiO2 06/18/18 13:09 93 21 50 06/18/18 13:00 79 14 110/50 (70) 100 06/18/18 12:08 95 16 100 Mechanical Ventilator 50 06/18/18 12:00 78 06/18/18 12:00 Endotracheal Tube Endotracheal Tube 06/18/18 12:00 98.0 79 8 118/59 (78) 100 06/18/18 12:00 50 06/18/18 11:46 80 16 50 06/18/18 11:44 74 17 100 Mechanical Ventilator 50 06/18/18 11:00 79 16 128/79 (95) 100 06/18/18 10:00 87 18 123/68 (86) 99 06/18/18 09:00 103 21 129/66 (87) 100 06/18/18 08:30 105 16 50 06/18/18 08:22 105 17 100 Mechanical Ventilator 50 06/18/18 08:02 97 17 100 Mechanical Ventilator 50 06/18/18 08:01 88 17 50 06/18/18 08:00 97.7 97 18 129/66 (87) 100 06/18/18 08:00 Endotracheal Tube Endotracheal Tube 06/18/18 08:00 79 06/18/18 08:00 50 06/18/18 07:00 82 18 119/55 (76) 100 06/18/18 06:00 90 16 128/54 (78) 100 06/18/18 05:00 87 16 129/54 (79) 100 06/18/18 04:35 95 19 50 06/18/18 04:00 Endotracheal Tube Endotracheal Tube 06/18/18 04:00 97 06/18/18 04:00 50 06/18/18 04:00 98.6 82 16 121/53 (75) 100 06/18/18 03:46 95 19 100 Mechanical Ventilator 50 06/18/18 03:36 78 16 50 06/18/18 03:36 76 17 100 Mechanical Ventilator 50 06/18/18 03:00 76 16 135/65 (88) 100 06/18/18 02:00 78 16 114/52 (72) 100 06/18/18 01:00 77 17 122/54 (76) 100 06/18/18 00:35 78 17 50 06/18/18 00:00 90 06/18/18 00:00 50 06/18/18 00:00 98.8 83 16 131/63 (85) 100 06/18/18 00:00 Endotracheal Tube Endotracheal Tube 06/17/18 23:23 80 16 100 Mechanical Ventilator 50 06/17/18 23:11 78 17 100 Mechanical Ventilator 50 2/15/19 23:11 81 16 50 06/17/18 23:00 79 16 105/44 (64) 100 06/17/18 22:00 78 16 108/55 (72) 100 94 06/17/18 21:04 83 16 50 06/17/18 21:00 90 16 141/57 (85) 100 94 06/17/18 20:00 Endotracheal Tube Endotracheal Tube 06/17/18 20:00 97 06/17/18 20:00 98.5 94 16 120/54 (76) 100 06/17/18 20:00 50 06/17/18 19:25 86 18 100 Mechanical Ventilator 50 06/17/18 19:15 83 16 50 06/17/18 19:12 95 16 100 Mechanical Ventilator 50 06/17/18 19:00 98 16 127/62 (83) 100 06/17/18 18:00 92 21 140/60 (86) 100 06/17/18 17:37 98.1 06/17/18 17:26 95 19 50 06/17/18 17:00 99 19 164/64 (97) 100 06/17/18 16:03 Endotracheal Tube Endotracheal Tube 06/17/18 16:00 50 06/17/18 16:00 101 06/17/18 16:00 99.3 97 19 118/51 (73) 100 06/17/18 15:27 117 25 50 06/17/18 15:20 Mechanical Ventilator 50 06/17/18 15:20 Mechanical Ventilator 50 06/17/18 15:00 100 20 118/51 (73) 100 06/17/18 14:00 92 18 118/66 (83) 100 Intake and Output 06/17/18 06/18/18 18:59 06:59 Intake Total 1200 ml 1586 ml Output Total 70 ml 295 ml Balance 1130 ml 1291 ml Free Water 190 ml 366 ml IV Total 900 ml 900 ml Tube Feeding 110 ml 320 ml Output Urine Total 70 ml 295 ml Laboratory Tests 06/18/18 05:00: White Blood Count 14.7H, Red Blood Count 4.46, Hemoglobin 10.0L, Hematocrit 32.7L, Mean Corpuscular Volume 73L, Mean Corpuscular Hemoglobin 22.4L, Mean Corpuscular Hemoglobin Concent 30.5L, Red Cell Distribution Width 18.4H, Platelet Count 316, Mean Platelet Volume 8.0, Neutrophils (%) (Auto) 59.6, Lymphocytes (%) (Auto) 26.4, Monocytes (%) (Auto) 4.8, Eosinophils (%) (Auto) 8.8H, Basophils (%) (Auto) 0.5, Sodium Level 138, Potassium Level 4.4, Chloride Level 102, Carbon Dioxide Level 27, Anion Gap 9, Blood Urea Nitrogen 71H, Creatinine 4.5H, Estimat Glomerular Filtration Rate , Glucose Level 115H, Uric Acid 8.2H, Calcium Level 8.5, Phosphorus Level 3.5, Magnesium Level 2.1, Total Bilirubin 0.3, Gamma Glutamyl Transpeptidase 19, Aspartate Amino Transf (AST/ SGOT) 23, Alanine Aminotransferase (ALT/SGPT) 24, Alkaline Phosphatase 100, Ammonia 23, Total Creatine Kinase 97, Troponin I 0.012, C-Reactive Protein, Quantitative > 70.0H, Pro-B-Type Natriuretic Peptide 3290H, Total Protein 6.8, Albumin 2.1L, Globulin 4.7, Albumin/Globulin Ratio 0.4L, Random Vancomycin Level 24.9 Height (Feet): 5 Height (Inches): 4.00 Weight (Pounds): 127 General Appearance: no apparent distress, alert EENT: PERRL/EOMI, pharynx normal Neck: non-tender, supple Cardiovascular: normal rate, regular rhythm, no gallop/murmur, no JVD Respiratory/Chest: decreased breath sounds Abdomen: non tender, soft, no mass Extremities: non-tender, normal inspection, no calf tenderness Edema: no edema noted Arm (L), no edema noted Arm (R), no edema noted Leg (L), no edema noted Leg (R), no edema noted Pedal (L), no edema noted Pedal (R), no edema noted Generalized Neurologic: responsive Skin: warm/dry Lymphatic: normal anterior cervical (L), normal anterior cervical (R), normal posterior cervical (L), normal posterior cervical (R), normal submandibular (L) , normal submandibular (R), normal supraclavicular (L), normal supraclavicular ( R), normal axillary (L), normal axillary (R), normal inguinal (L), normal inguinal (R), normal other Cruz Valderrama MD Jun 18, 2018 13:57
--- NOTE | 2018-06-18 14:22 | NUR ---
NURSE NOTES: Dr Sandhu here to see pt. No new orders. No acute distress. Will continue to monitor.
--- NOTE | 2018-06-18 14:22 | Cardiology Progress Note ---
Assessment/Plan Assessment/Plan COPD, congestive heart failure, atrial fibrillation sinus tachy agitation right lung collapse? anemia pleural effusion respirator failure tachy tele sinus with atrail tachy vent suppor t abx pulm rxn bp is better cxr showed improved blood cx previoously neg beta evelyn iv or vial ngt prn d/w rn earlier over all poor prognosis increase amiod to 200 mg bid for a few days planned for dialysis tomorrow d/w rn Subjective ROS Limited/Unobtainable: Yes Subjective in icu on vent in isolation Objective Last 24 Hour Vital Signs Date Time Temp Pulse Resp B/P (MAP) Pulse Ox O2 Delivery O2 Flow Rate FiO2 06/18/18 14:00 80 19 113/75 (88) 100 06/18/18 13:09 93 21 50 06/18/18 13:00 79 14 110/50 (70) 100 06/18/18 12:08 95 16 100 Mechanical Ventilator 50 06/18/18 12:00 78 06/18/18 12:00 Endotracheal Tube Endotracheal Tube 06/18/18 12:00 98.0 79 8 118/59 (78) 100 06/18/18 12:00 50 06/18/18 11:46 80 16 50 06/18/18 11:44 74 17 100 Mechanical Ventilator 50 06/18/18 11:00 79 16 128/79 (95) 100 06/18/18 10:00 87 18 123/68 (86) 99 06/18/18 09:00 103 21 129/66 (87) 100 06/18/18 08:30 105 16 50 06/18/18 08:22 105 17 100 Mechanical Ventilator 50 06/18/18 08:02 97 17 100 Mechanical Ventilator 50 06/18/18 08:01 88 17 50 06/18/18 08:00 97.7 97 18 129/66 (87) 100 06/18/18 08:00 Endotracheal Tube Endotracheal Tube 06/18/18 08:00 79 06/18/18 08:00 50 06/18/18 07:00 82 18 119/55 (76) 100 06/18/18 06:00 90 16 128/54 (78) 100 06/18/18 05:00 87 16 129/54 (79) 100 06/18/18 04:35 95 19 50 06/18/18 04:00 Endotracheal Tube Endotracheal Tube 06/18/18 04:00 97 2/16/19 04:00 50 06/18/18 04:00 98.6 82 16 121/53 (75) 100 06/18/18 03:46 95 19 100 Mechanical Ventilator 50 06/18/18 03:36 78 16 50 06/18/18 03:36 76 17 100 Mechanical Ventilator 50 06/18/18 03:00 76 16 135/65 (88) 100 06/18/18 02:00 78 16 114/52 (72) 100 06/18/18 01:00 77 17 122/54 (76) 100 06/18/18 00:35 78 17 50 06/18/18 00:00 90 06/18/18 00:00 50 06/18/18 00:00 98.8 83 16 131/63 (85) 100 06/18/18 00:00 Endotracheal Tube Endotracheal Tube 06/17/18 23:23 80 16 100 Mechanical Ventilator 50 06/17/18 23:11 78 17 100 Mechanical Ventilator 50 06/17/18 23:11 81 16 50 06/17/18 23:00 79 16 105/44 (64) 100 06/17/18 22:00 78 16 108/55 (72) 100 94 06/17/18 21:04 83 16 50 06/17/18 21:00 90 16 141/57 (85) 100 94 06/17/18 20:00 Endotracheal Tube Endotracheal Tube 06/17/18 20:00 97 06/17/18 20:00 98.5 94 16 120/54 (76) 100 06/17/18 20:00 50 06/17/18 19:25 86 18 100 Mechanical Ventilator 50 06/17/18 19:15 83 16 50 06/17/18 19:12 95 16 100 Mechanical Ventilator 50 06/17/18 19:00 98 16 127/62 (83) 100 06/17/18 18:00 92 21 140/60 (86) 100 06/17/18 17:37 98.1 06/17/18 17:26 95 19 50 06/17/18 17:00 99 19 164/64 (97) 100 06/17/18 16:03 Endotracheal Tube Endotracheal Tube 06/17/18 16:00 50 06/17/18 16:00 101 06/17/18 16:00 99.3 97 19 118/51 (73) 100 06/17/18 15:27 117 25 50 06/17/18 15:20 Mechanical Ventilator 50 06/17/18 15:20 Mechanical Ventilator 50 06/17/18 15:00 100 20 118/51 (73) 100 General Appearance: no apparent distress, on vent, patient on isolation Neck: supple Cardiovascular: normal rate Respiratory/Chest: lungs clear Abdomen: normal bowel sounds, non tender, soft Extremities: no swelling Intake and Output 06/17/18 06/18/18 18:59 06:59 Intake Total 1200 ml 1586 ml Output Total 70 ml 295 ml Balance 1130 ml 1291 ml Free Water 190 ml 366 ml IV Total 900 ml 900 ml Tube Feeding 110 ml 320 ml Output Urine Total 70 ml 295 ml Laboratory Tests Test 06/18/18 05:00 White Blood Count 14.7 K/UL (4.8-10.8) H Red Blood Count 4.46 M/UL (4.20-5.40) Hemoglobin 10.0 G/DL (12.0-16.0) L Hematocrit 32.7 % (37.0-47.0) L Mean Corpuscular Volume 73 FL (80-99) L Mean Corpuscular Hemoglobin 22.4 PG (27.0-31.0) L Mean Corpuscular Hemoglobin Concent 30.5 G/DL (32.0-36.0) L Red Cell Distribution Width 18.4 % (11.6-14.8) H Platelet Count 316 K/UL (150-450) Mean Platelet Volume 8.0 FL (6.5-10.1) Neutrophils (%) (Auto) 59.6 % (45.0-75.0) Lymphocytes (%) (Auto) 26.4 % (20.0-45.0) Monocytes (%) (Auto) 4.8 % (1.0-10.0) Eosinophils (%) (Auto) 8.8 % (0.0-3.0) H Basophils (%) (Auto) 0.5 % (0.0-2.0) Sodium Level 138 MMOL/L (136-145) Potassium Level 4.4 MMOL/L (3.5-5.1) Chloride Level 102 MMOL/L (98-107) Carbon Dioxide Level 27 MMOL/L (21-32) Anion Gap 9 mmol/L (5-15) Blood Urea Nitrogen 71 mg/dL (7-18) H Creatinine 4.5 MG/DL (0.55-1.30) H Estimat Glomerular Filtration Rate mL/min (>60) Glucose Level 115 MG/DL (74-106) H Uric Acid 8.2 MG/DL (2.6-7.2) H Calcium Level 8.5 MG/DL (8.5-10.1) Phosphorus Level 3.5 MG/DL (2.5-4.9) Magnesium Level 2.1 MG/DL (1.8-2.4) Total Bilirubin 0.3 MG/DL (0.2-1.0) Gamma Glutamyl Transpeptidase 19 U/L (5-85) Aspartate Amino Transf (AST/SGOT) 23 U/L (15-37) Alanine Aminotransferase (ALT/SGPT) 24 U/L (12-78) Alkaline Phosphatase 100 U/L (46-116) Ammonia 23 umol/L (11-32) Total Creatine Kinase 97 U/L (26-308) Troponin I 0.012 ng/mL (0.000-0.056) C-Reactive Protein, Quantitative > 70.0 mg/dL (0.00-0.90) H Pro-B-Type Natriuretic Peptide 3290 pg/mL (0-125) H Total Protein 6.8 G/DL (6.4-8.2) Albumin 2.1 G/DL (3.4-5.0) L Globulin 4.7 g/dL Albumin/Globulin Ratio 0.4 (1.0-2.7) L Random Vancomycin Level 24.9 ug/mL Microbiology Date/Time Source Procedure Growth Status 06/15/18 19:30 Blood Blood Culture - Preliminary NO GROWTH AFTER 48 HOURS Resulted 06/15/18 19:15 Blood Blood Culture - Preliminary NO GROWTH AFTER 48 HOURS Resulted 06/15/18 17:30 Sputum Gram Stain - Final Complete 06/15/18 17:30 Sputum Culture - Final Escherichia Coli - Esbl Staphylococcus Aureus - Mrsa Complete 06/17/18 17:30 Stool Clostridium difficile Toxin Assay - Final Complete 06/15/18 17:30 Indwelling Cath Urine Culture - Final NO GROWTH AFTER 48 HOURS Complete Geoffrey Sandhu MD Jun 18, 2018 14:22
--- NOTE | 2018-06-18 16:55 | NUR ---
NURSE NOTES: Turned and repositioned pt. Pt kept clean. Oral care and suction done. Will continue to monitor.
[2018-06-18] MEDS: Meropenem 500 MG in NS 55 ML IVPB SCH (17:48)
--- NOTE | 2018-06-18 19:32 | NUR ---
HAND-OFF: Report given to Alicia JI.
--- NOTE | 2018-06-18 19:35 | NUR ---
NURSE NOTES: Received report from Gavin JI. patient in bed sleeping comfortably. Patient is orally intubated ETT 7.5/23cm lip line, vent settings AC 16, TV 400 fi02 50% peep of 5. no s/s of acute distress noted. NGT intact running Glucerna 1.2 at 55cc/hr. HOB elevated no residual. Sinclair draining with poor output. On P200 for wound management. MILY PICC intact running D51/2 NS at 75cc/hr. Bilateral soft wrist restraint checked. Bed alarm on. Bed locked and in low position. Family at bedside. Will continue plan of care.
[2018-06-18] MEDS: Dyna-Hex 2% Top Sol 2oz TOPIC SCH (21:26)
[2018-06-18] MEDS: Miralax 17gm pkt ORAL SCH (21:26)
--- NOTE | 2018-06-18 21:35 | NUR ---
NURSE NOTES: NURSE NOTES: Repositioned. No s/s of acute distress noted. SR on the cardiac cath lab radiology technologist HR 88. On p200 for wound management. Contact isolation maintained and observed No moaning no facial grimaces. Will continue plan of care.
--- NOTE | 2018-06-18 22:06 | General Progress Note ---
Assessment/Plan Problem List: (1) encephalopathy due to toxin (2) Dementia ICD Codes: F03.90 - Unspecified dementia without behavioral disturbance SNOMED: 00953367 Assessment/Plan Haldol Im on board Seroquel 25mg q 6hr prn cont restraints. Subjective Allergies: Coded Allergies: Mushroom (Verified Allergy, Severe, 05/28/18) MORPHINE (Unverified Allergy, Intermediate, Itching, 01/04/15) PENICILLINS (Unverified Allergy, Intermediate, Hives, 01/04/15) CELECOXIB (Verified Allergy, Mild, 01/15/09) Subjective no changes confused agitated Objective Last 24 Hour Vital Signs Date Time Temp Pulse Resp B/P (MAP) Pulse Ox O2 Delivery O2 Flow Rate FiO2 06/18/18 20:50 89 19 40 06/18/18 19:13 86 16 50 06/18/18 19:12 88 16 100 Mechanical Ventilator 50 06/18/18 19:04 94 17 100 Mechanical Ventilator 50 06/18/18 19:00 95 19 90/40 (57) 100 06/18/18 18:00 87 22 109/47 (67) 100 06/18/18 17:00 88 19 94/49 (64) 100 06/18/18 16:50 92 23 50 06/18/18 16:00 85 06/18/18 16:00 Endotracheal Tube Endotracheal Tube 06/18/18 16:00 50 06/18/18 16:00 98.2 91 20 107/56 (73) 100 06/18/18 15:28 93 16 97 Mechanical Ventilator 50 06/18/18 15:18 79 19 100 Mechanical Ventilator 50 06/18/18 15:17 79 19 50 06/18/18 15:00 77 19 107/50 (69) 100 06/18/18 14:00 80 19 113/75 (88) 100 06/18/18 13:09 93 21 50 06/18/18 13:00 79 14 110/50 (70) 100 06/18/18 12:08 95 16 100 Mechanical Ventilator 50 06/18/18 12:00 78 06/18/18 12:00 Endotracheal Tube Endotracheal Tube 06/18/18 12:00 98.0 79 8 118/59 (78) 100 06/18/18 12:00 50 06/18/18 11:46 80 16 50 06/18/18 11:44 74 17 100 Mechanical Ventilator 50 06/18/18 11:00 79 16 128/79 (95) 100 06/18/18 10:00 87 18 123/68 (86) 99 06/18/18 09:00 103 21 129/66 (87) 100 06/18/18 08:30 105 16 50 06/18/18 08:22 105 17 100 Mechanical Ventilator 50 06/18/18 08:02 97 17 100 Mechanical Ventilator 50 06/18/18 08:01 88 17 50 06/18/18 08:00 97.7 97 18 129/66 (87) 100 06/18/18 08:00 Endotracheal Tube Endotracheal Tube 06/18/18 08:00 79 06/18/18 08:00 50 06/18/18 07:00 82 18 119/55 (76) 100 06/18/18 06:00 90 16 128/54 (78) 100 06/18/18 05:00 87 16 129/54 (79) 100 06/18/18 04:35 95 19 50 06/18/18 04:00 Endotracheal Tube Endotracheal Tube 06/18/18 04:00 97 06/18/18 04:00 50 06/18/18 04:00 98.6 82 16 121/53 (75) 100 06/18/18 03:46 95 19 100 Mechanical Ventilator 50 06/18/18 03:36 78 16 50 06/18/18 03:36 76 17 100 Mechanical Ventilator 50 06/18/18 03:00 76 16 135/65 (88) 100 06/18/18 02:00 78 16 114/52 (72) 100 06/18/18 01:00 77 17 122/54 (76) 100 06/18/18 00:35 78 17 50 06/18/18 00:00 90 06/18/18 00:00 50 06/18/18 00:00 98.8 83 16 131/63 (85) 100 06/18/18 00:00 Endotracheal Tube Endotracheal Tube 06/17/18 23:23 80 16 100 Mechanical Ventilator 50 06/17/18 23:11 78 17 100 Mechanical Ventilator 50 06/17/18 23:11 81 16 50 06/17/18 23:00 79 16 105/44 (64) 100 Intake and Output 06/17/18 06/18/18 19:00 07:00 Intake Total 1220 ml 1596 ml Output Total 70 ml 310 ml Balance 1150 ml 1286 ml Free Water 190 ml 366 ml IV Total 900 ml 900 ml Tube Feeding 130 ml 330 ml Output Urine Total 70 ml 310 ml Laboratory Tests 06/18/18 05:00: White Blood Count 14.7H, Red Blood Count 4.46, Hemoglobin 10.0L, Hematocrit 32.7L, Mean Corpuscular Volume 73L, Mean Corpuscular Hemoglobin 22.4L, Mean Corpuscular Hemoglobin Concent 30.5L, Red Cell Distribution Width 18.4H, Platelet Count 316, Mean Platelet Volume 8.0, Neutrophils (%) (Auto) 59.6, Lymphocytes (%) (Auto) 26.4, Monocytes (%) (Auto) 4.8, Eosinophils (%) (Auto) 8.8H, Basophils (%) (Auto) 0.5, Sodium Level 138, Potassium Level 4.4, Chloride Level 102, Carbon Dioxide Level 27, Anion Gap 9, Blood Urea Nitrogen 71H, Creatinine 4.5H, Estimat Glomerular Filtration Rate , Glucose Level 115H, Uric Acid 8.2H, Calcium Level 8.5, Phosphorus Level 3.5, Magnesium Level 2.1, Total Bilirubin 0.3, Gamma Glutamyl Transpeptidase 19, Aspartate Amino Transf (AST/ SGOT) 23, Alanine Aminotransferase (ALT/SGPT) 24, Alkaline Phosphatase 100, Ammonia 23, Total Creatine Kinase 97, Troponin I 0.012, C-Reactive Protein, Quantitative > 70.0H, Pro-B-Type Natriuretic Peptide 3290H, Total Protein 6.8, Albumin 2.1L, Globulin 4.7, Albumin/Globulin Ratio 0.4L, Random Vancomycin Level 24.9 Height (Feet): 5 Height (Inches): 4.00 Weight (Pounds): 127 Liz Lo MD Jun 18, 2018 22:06
--- NOTE | 2018-06-18 23:35 | NUR ---
NURSE NOTES: CHG bath given tolerated well. No s/s of acute distress noted. Pt with episode of trying to pull out tubing, reposition and talk therapy provided. Bilateral wrist restraint checked every 2 hours.Will continue plan of care.
[2018-06-19] VITALS (24 sets, daily range): BP systolic 97–162; BP diastolic 43–78
--- NOTE | 2018-06-19 01:35 | NUR ---
NURSE NOTES: Repositioned. No s/s of acute distress noted. SR on the patient scheduling coordinator HR 85. On p200 for wound management. Contact isolation maintained and observed No moaning no facial grimaces. Will continue plan of care.
[2018-06-19] MEDS: Albuterol/Ipratropium 3ml neb HHN PRN ×6 (03:04→23:20)
[2018-06-19] MEDS: Acetylcysteine 20% Soln 4ml HHN SCH ×6 (03:04→23:20)
--- NOTE | 2018-06-19 03:35 | NUR ---
NURSE NOTES: Repositioned. GT intact no residual On Glucerna 1.5 at 55cc/hr. HOB elevated. Nos /s of acute distress noted. Kept clean and dry. Will continue plan of care.
--- NOTE | 2018-06-19 05:35 | NUR ---
NURSE NOTES: Repositioned. No s/s of acute distress noted. Suctioned and oral care provided. SR on the rn cardiac HR 88. On p200 for wound management. Contact isolation maintained and observed No moaning no facial grimaces. Will continue plan of care.
[2018-06-19] MEDS: D5 1/2NS 1,000 ML IV SCH (06:01)
--- NOTE | 2018-06-19 06:55 | NUR ---
RESPIRATORY NOTE: Patient received mechanically ventilated on PB 840 with current ordered vent settings. Patient is orally intubated with size 7.5 ETT tube with 23cm at the lip line that is secure with an anchor fast. Facial skin is intact with no redness noted. There are bilateral diminished breath sounds present upon auscultation. Suctioned scant amount of thick clear/white/yellow secretions via inline suction system without incident. Vent alarms are functional and audible. There is an ambu bag available at the bedside and the vent is connected to a red outlet. Inline breathing treatment was given without any adverse affect. Patient appears comfortable at this time. Will continue to monitor.
--- NOTE | 2018-06-19 07:30 | NUR ---
HAND-OFF: Report given to Donald JI.
--- NOTE | 2018-06-19 07:31 | NUR ---
NURSE NOTES: RECEIVED PATIENT FROM Suyapa HUNTER RN. PATIENT IS LYING IN AWAKE, RESTLESS, TRYING TO GET OUT OF THE BED. HOOKED TO NUCLEAR PHYSICS TEACHER. ORALLY INTUBATED ETT 7.5 AT 23CM LIP LINE, VENT SETTINGS AC 16, TV 400, FIO2 40%, PEEP 5. NO SIGNS OF CARDIO OR RESPI OF THE MOMENT. NGT IN PLACE, TF GLUCERNA 1.5 AT 55CC/HR. NOTED SKIN ALTERATION. ON P200 MATTRESS. OVIEDO CATH CONNECTED TO BAG, PATENT AND DRAINING URINE. PICC ON RIGHT UPPER ARM WITH IVF RUNNING D5 1/2 NS AT 75CC/HR. STILL ON RESTRAINTS. CALL LIGHT WITHIN REACH. SIDE RAILS UP. BED AT LOWEST POSITION. WILL CONTINUE TO MONITOR.
[2018-06-19 07:37] LABS: BASOPHILS % (AUTO) 0.5 % (0.0-2.0); EOSINOPHILS % (AUTO) 9.2 % (0.0-3.0); HEMATOCRIT 28.3 % (37.0-47.0); HEMOGLOBIN 8.9 G/DL (12.0-16.0); LYMPHOCYTES % (AUTO) 21.9 % (20.0-45.0); MEAN CORPUSCULAR VOLUME 72 FL (80-99); MONOCYTES % (AUTO) 6.2 % (1.0-10.0); NEUTROPHILS % (AUTO) 62.1 % (45.0-75.0); PLATELET COUNT 260 K/UL (150-450); RED BLOOD COUNT 3.94 M/UL (4.20-5.40)
[2018-06-19 08:04] LABS: ALANINE AMINOTRANSFERASE 18 U/L (12-78); ALBUMIN/GLOBULIN RATIO 0.5 (1.0-2.7); ALKALINE PHOSPHATASE 87 U/L (46-116); ANION GAP 8 mmol/L (5-15); ASPARTATE AMINO TRANSFERASE 15 U/L (15-37); BILIRUBIN,TOTAL 0.2 MG/DL (0.2-1.0); BLOOD UREA NITROGEN 77 mg/dL (7-18); CALCIUM 8.7 MG/DL (8.5-10.1); CARBON DIOXIDE 26 MMOL/L (21-32); CHLORIDE 101 MMOL/L (98-107); PHOSPHORUS 4.5 MG/DL (2.5-4.9); POTASSIUM 4.8 MMOL/L (3.5-5.1); SODIUM 135 MMOL/L (136-145)
[2018-06-19] MEDS: Amiodarone 200mg tab ORAL SCH ×2 (08:21→17:24)
[2018-06-19] MEDS: Pantoprazole Inj IV SCH (08:21)
[2018-06-19] MEDS: Heparin 5000 units/ml inj SUBQ SCH ×2 (08:22→20:59)
--- NOTE | 2018-06-19 10:00 | NUR ---
NURSE NOTES: CALLED AND SPOKE WITH DR REYES RE PT CONDITION. NO SIGNS OF DISTRESS OF THE MOMENT. WILL CONTINUE TO MONITOR.
--- NOTE | 2018-06-19 10:06 | NUR ---
NURSE NOTES: I CALLED AND SPOKE WITH DR AMY KUMAR RESULT. TO KEEP BIPAP ON TOLERATE. NO SIGNS OF DISTRESS. PATIENT KEPT CLEAN AND DRY. NOTED 1 BM, SOFT. NO SIGNS OF DISTRESS. WILL CONTINUE TO MONITOR. Addendum: 06/19/18 at 1319 by JOHN GARCÍA RN NURSE NOTES: WRONG PATIENT.
--- NOTE | 2018-06-19 12:17 | Nephrology Progress Note ---
Assessment/Plan Problem List: (1) Acute renal failure Assessment: Cr rising (2) Anuria (3) Acute respiratory failure Assessment: on vent (4) Dementia (5) Afib Assessment Urine out put rising Cr rising other conditions: (1) Acute respiratory failure (2) Aspiration pneumonia (3) Acute encephalopathy (4) Pleural effusion (5) COPD (chronic obstructive pulmonary disease) (6) CAD (coronary artery disease) (7) Dementia Plan monitor vanco level family agree with HD . trial one dose Lasix and observe another 24 h for dialysis assessment re intubated now Fluid challenge K and Phos and Mag as needed Anemia porter Adjust BP meds fu Lytes Gastric support pulm support- not tolerating bipap per orders Subjective ROS Limited/Unobtainable: Yes Objective Objective Last 24 Hour Vital Signs Date Time Temp Pulse Resp B/P (MAP) Pulse Ox O2 Delivery O2 Flow Rate FiO2 06/19/18 12:00 92 06/19/18 12:00 50 06/19/18 12:00 Endotracheal Tube Endotracheal Tube 06/19/18 12:00 97.6 94 22 142/55 (84) 100 06/19/18 11:38 91 27 100 Mechanical Ventilator 40 06/19/18 11:00 94 21 141/70 (93) 100 06/19/18 10:53 91 27 40 06/19/18 10:00 91 20 112/46 (68) 100 06/19/18 09:21 97.6 06/19/18 09:00 98 24 112/46 (68) 100 06/19/18 08:00 Endotracheal Tube Endotracheal Tube 06/19/18 08:00 76 06/19/18 08:00 100.4 99 25 110/65 (80) 99 06/19/18 08:00 50 06/19/18 07:58 97 24 98 Mechanical Ventilator 40 06/19/18 07:00 100 19 112/52 (72) 100 06/19/18 06:50 97 24 40 06/19/18 06:00 94 19 123/48 (73) 100 06/19/18 05:11 94 19 40 06/19/18 05:00 94 19 123/61 (81) 100 06/19/18 04:00 Endotracheal Tube Endotracheal Tube 06/19/18 04:00 50 06/19/18 04:00 85 06/19/18 04:00 98.5 84 19 97/43 (61) 100 06/19/18 03:12 80 16 100 Mechanical Ventilator 40 06/19/18 03:04 79 16 40 06/19/18 03:04 79 16 100 Mechanical Ventilator 40 06/19/18 03:00 82 19 97/43 (61) 100 06/19/18 02:00 79 19 104/46 (65) 100 06/19/18 01:07 85 17 40 06/19/18 01:00 86 19 104/45 (64) 100 06/19/18 00:00 87 06/19/18 00:00 50 06/19/18 00:00 98.4 91 19 116/45 (68) 100 06/19/18 00:00 Endotracheal Tube Endotracheal Tube 06/18/18 23:37 94 17 100 Mechanical Ventilator 40 06/18/18 23:29 95 16 100 Mechanical Ventilator 40 06/18/18 23:29 94 16 40 06/18/18 23:00 97 19 162/66 (98) 100 06/18/18 22:00 86 19 95/43 (60) 100 06/18/18 21:00 86 19 89/40 (56) 100 06/18/18 20:50 89 19 40 06/18/18 20:00 88 06/18/18 20:00 98.4 88 19 101/40 (60) 100 06/18/18 20:00 Endotracheal Tube Endotracheal Tube 06/18/18 20:00 50 06/18/18 19:13 86 16 50 06/18/18 19:12 88 16 100 Mechanical Ventilator 50 06/18/18 19:04 94 17 100 Mechanical Ventilator 50 06/18/18 19:00 95 19 90/40 (57) 100 06/18/18 18:00 87 22 109/47 (67) 100 06/18/18 17:00 88 19 94/49 (64) 100 06/18/18 16:50 92 23 50 06/18/18 16:00 85 06/18/18 16:00 Endotracheal Tube Endotracheal Tube 06/18/18 16:00 50 06/18/18 16:00 98.2 91 20 107/56 (73) 100 06/18/18 15:28 93 16 97 Mechanical Ventilator 50 06/18/18 15:18 79 19 100 Mechanical Ventilator 50 2/16/19 15:17 79 19 50 06/18/18 15:00 77 19 107/50 (69) 100 06/18/18 14:00 80 19 113/75 (88) 100 06/18/18 13:09 93 21 50 06/18/18 13:00 79 14 110/50 (70) 100 Intake and Output 06/18/18 06/19/18 19:00 07:00 Intake Total 1315 ml 2142 ml Output Total 255 ml 130 ml Balance 1060 ml 2012 ml Free Water 582 ml IV Total 955 ml 900 ml Tube Feeding 360 ml 660 ml Output Urine Total 255 ml 130 ml Laboratory Tests 06/19/18 05:00: White Blood Count 9.0, Red Blood Count 3.94L, Hemoglobin 8.9L, Hematocrit 28.3L , Mean Corpuscular Volume 72L, Mean Corpuscular Hemoglobin 22.6L, Mean Corpuscular Hemoglobin Concent 31.5L, Red Cell Distribution Width 18.0H, Platelet Count 260, Mean Platelet Volume 7.8, Neutrophils (%) (Auto) 62.1, Lymphocytes (%) (Auto) 21.9, Monocytes (%) (Auto) 6.2, Eosinophils (%) (Auto) 9.2H, Basophils (%) (Auto) 0.5, Prothrombin Time 10.5, Prothromb Time International Ratio 1.0, Activated Partial Thromboplast Time 33, Sodium Level 135L, Potassium Level 4.8, Chloride Level 101, Carbon Dioxide Level 26, Anion Gap 8, Blood Urea Nitrogen 77H, Creatinine 5.0H, Estimat Glomerular Filtration Rate , Glucose Level 94, Uric Acid 8.5H, Calcium Level 8.7, Phosphorus Level 4.5 , Magnesium Level 2.1, Total Bilirubin 0.2, Aspartate Amino Transf (AST/SGOT) 15 , Alanine Aminotransferase (ALT/SGPT) 18, Alkaline Phosphatase 87, Pro-B-Type Natriuretic Peptide 3011H, Total Protein 6.3L, Albumin 2.0L, Globulin 4.3, Albumin/Globulin Ratio 0.5L Height (Feet): 5 Height (Inches): 4.00 Weight (Pounds): 114 General Appearance: no apparent distress EENT: other - vented Cardiovascular: tachycardia Respiratory/Chest: decreased breath sounds Abdomen: soft Neurologic: other - more responsive Objective no change Kendrick Jimenez MD Jun 19, 2018 12:17
--- NOTE | 2018-06-19 12:30 | NUR ---
NURSE NOTES: SEEN AND EXAMINED BY DR PARHAM WITH NEW ORDERS MADE. FAMILY AT THE BEDSIDE. NO SIGNS OF DISTRESS. WILL CONTINUE TO MONITOR.
--- NOTE | 2018-06-19 12:56 | General Progress Note ---
Assessment/Plan Problem List: (1) COPD with acute exacerbation ICD Codes: J44.1 - Chronic obstructive pulmonary disease with (acute) exacerbation SNOMED: 005615191 (2) Pleural effusion ICD Codes: J90 - Pleural effusion, not elsewhere classified SNOMED: 29671391 (3) Afib ICD Codes: I48.91 - Unspecified atrial fibrillation SNOMED: 59523091 (4) CAD (coronary artery disease) ICD Codes: I25.10 - Atherosclerotic heart disease of [place] coronary artery without angina pectoris SNOMED: 53760349 (5) Respiratory failure ICD Codes: J96.90 - Respiratory failure, unspecified, unspecified whether with hypoxia or hypercapnia SNOMED: 967957793 (6) Failure to thrive SNOMED: 72594633 (7) Acute renal failure ICD Codes: N17.9 - Acute kidney failure, unspecified SNOMED: 27086707 (8) C. difficile colitis ICD Codes: A04.72 - Enterocolitis due to Clostridium difficile, not specified as recurrent SNOMED: 883011482 Assessment/Plan Assessment - Resp failure - NGT dependent - COPD - CHF - PNA - Anemia - Poor prognosis Recommendations - NGT feeds - Vent care - Elevated HOB - Monitor residuals - Abx - Pulmonary toilet - Await family decision re PEG -add Vanco -pending possible HD Subjective ROS Limited/Unobtainable: No Allergies: Coded Allergies: Mushroom (Verified Allergy, Severe, 05/28/18) MORPHINE (Unverified Allergy, Intermediate, Itching, 01/04/15) PENICILLINS (Unverified Allergy, Intermediate, Hives, 01/04/15) CELECOXIB (Verified Allergy, Mild, 01/15/09) Objective Last 24 Hour Vital Signs Date Time Temp Pulse Resp B/P (MAP) Pulse Ox O2 Delivery O2 Flow Rate FiO2 06/19/18 12:00 92 06/19/18 12:00 50 06/19/18 12:00 Endotracheal Tube Endotracheal Tube 06/19/18 12:00 97.6 94 22 142/55 (84) 100 06/19/18 11:38 91 27 100 Mechanical Ventilator 40 06/19/18 11:00 94 21 141/70 (93) 100 06/19/18 10:53 91 27 40 06/19/18 10:00 91 20 112/46 (68) 100 06/19/18 09:21 97.6 2/17/19 09:00 98 24 112/46 (68) 100 06/19/18 08:00 Endotracheal Tube Endotracheal Tube 06/19/18 08:00 76 06/19/18 08:00 100.4 99 25 110/65 (80) 99 06/19/18 08:00 50 06/19/18 07:58 97 24 98 Mechanical Ventilator 40 06/19/18 07:00 100 19 112/52 (72) 100 06/19/18 06:50 97 24 40 06/19/18 06:00 94 19 123/48 (73) 100 06/19/18 05:11 94 19 40 06/19/18 05:00 94 19 123/61 (81) 100 06/19/18 04:00 Endotracheal Tube Endotracheal Tube 06/19/18 04:00 50 06/19/18 04:00 85 06/19/18 04:00 98.5 84 19 97/43 (61) 100 06/19/18 03:12 80 16 100 Mechanical Ventilator 40 06/19/18 03:04 79 16 40 06/19/18 03:04 79 16 100 Mechanical Ventilator 40 06/19/18 03:00 82 19 97/43 (61) 100 06/19/18 02:00 79 19 104/46 (65) 100 06/19/18 01:07 85 17 40 06/19/18 01:00 86 19 104/45 (64) 100 06/19/18 00:00 87 06/19/18 00:00 50 06/19/18 00:00 98.4 91 19 116/45 (68) 100 06/19/18 00:00 Endotracheal Tube Endotracheal Tube 06/18/18 23:37 94 17 100 Mechanical Ventilator 40 06/18/18 23:29 95 16 100 Mechanical Ventilator 40 06/18/18 23:29 94 16 40 06/18/18 23:00 97 19 162/66 (98) 100 06/18/18 22:00 86 19 95/43 (60) 100 06/18/18 21:00 86 19 89/40 (56) 100 06/18/18 20:50 89 19 40 06/18/18 20:00 88 06/18/18 20:00 98.4 88 19 101/40 (60) 100 06/18/18 20:00 Endotracheal Tube Endotracheal Tube 06/18/18 20:00 50 06/18/18 19:13 86 16 50 06/18/18 19:12 88 16 100 Mechanical Ventilator 50 06/18/18 19:04 94 17 100 Mechanical Ventilator 50 06/18/18 19:00 95 19 90/40 (57) 100 06/18/18 18:00 87 22 109/47 (67) 100 06/18/18 17:00 88 19 94/49 (64) 100 06/18/18 16:50 92 23 50 06/18/18 16:00 85 06/18/18 16:00 Endotracheal Tube Endotracheal Tube 06/18/18 16:00 50 06/18/18 16:00 98.2 91 20 107/56 (73) 100 06/18/18 15:28 93 16 97 Mechanical Ventilator 50 06/18/18 15:18 79 19 100 Mechanical Ventilator 50 06/18/18 15:17 79 19 50 06/18/18 15:00 77 19 107/50 (69) 100 06/18/18 14:00 80 19 113/75 (88) 100 06/18/18 13:09 93 21 50 06/18/18 13:00 79 14 110/50 (70) 100 Intake and Output 06/18/18 06/19/18 18:59 06:59 Intake Total 1315 ml 2117 ml Output Total 260 ml 140 ml Balance 1055 ml 1977 ml Free Water 582 ml IV Total 955 ml 900 ml Tube Feeding 360 ml 635 ml Output Urine Total 260 ml 140 ml Laboratory Tests 06/19/18 05:00: White Blood Count 9.0, Red Blood Count 3.94L, Hemoglobin 8.9L, Hematocrit 28.3L , Mean Corpuscular Volume 72L, Mean Corpuscular Hemoglobin 22.6L, Mean Corpuscular Hemoglobin Concent 31.5L, Red Cell Distribution Width 18.0H, Platelet Count 260, Mean Platelet Volume 7.8, Neutrophils (%) (Auto) 62.1, Lymphocytes (%) (Auto) 21.9, Monocytes (%) (Auto) 6.2, Eosinophils (%) (Auto) 9.2H, Basophils (%) (Auto) 0.5, Prothrombin Time 10.5, Prothromb Time International Ratio 1.0, Activated Partial Thromboplast Time 33, Sodium Level 135L, Potassium Level 4.8, Chloride Level 101, Carbon Dioxide Level 26, Anion Gap 8, Blood Urea Nitrogen 77H, Creatinine 5.0H, Estimat Glomerular Filtration Rate , Glucose Level 94, Uric Acid 8.5H, Calcium Level 8.7, Phosphorus Level 4.5 , Magnesium Level 2.1, Total Bilirubin 0.2, Aspartate Amino Transf (AST/SGOT) 15 , Alanine Aminotransferase (ALT/SGPT) 18, Alkaline Phosphatase 87, Pro-B-Type Natriuretic Peptide 3011H, Total Protein 6.3L, Albumin 2.0L, Globulin 4.3, Albumin/Globulin Ratio 0.5L Height (Feet): 5 Height (Inches): 4.00 Weight (Pounds): 114 General Appearance: lethargic EENT: normal ENT inspection Neck: supple Cardiovascular: tachycardia Respiratory/Chest: decreased breath sounds Abdomen: normal bowel sounds, non tender, soft Extremities: non-tender Jacobo Acevedo MD Jun 19, 2018 12:56
[2018-06-19] MEDS: Vancomycin oral 125mg/2.5ml NG SCH ×3 (13:00→21:00)
[2018-06-19] MEDS: LORazepam Inj 2mg/ml 1ml IV PRN ×2 (13:02→21:25)
[2018-06-19] MEDS: D5NS 1,000 ML IV SCH (13:04)
--- NOTE | 2018-06-19 13:23 | NUR ---
NURSE NOTES: SEEN AND EXAMINED BY DR BOLANOS. WILL CONTINUE TO MONITOR.
--- NOTE | 2018-06-19 13:31 | Cardiology Progress Note ---
Assessment/Plan Assessment/Plan COPD, congestive heart failure, atrial fibrillation sinus tachy agitation right lung collapse? anemia pleural effusion respirator failure tachy acute on chronic renal failure tele sinus with atrail tachy vent suppor t abx pulm rxn bp is fine cxr showed improved blood cx previoously neg beta evelyn iv or via ngt prn d/w rn earlier over all poor prognosis increase amiod to 200 mg bid for a few days no plan for dialyssi yet as started to make urine d/w rn hemodynamically stable at the moment Subjective ROS Limited/Unobtainable: Yes Subjective in icu on vent in isolation Objective Last 24 Hour Vital Signs Date Time Temp Pulse Resp B/P (MAP) Pulse Ox O2 Delivery O2 Flow Rate FiO2 06/19/18 13:00 101 22 132/57 (82) 100 06/19/18 12:00 92 06/19/18 12:00 50 06/19/18 12:00 Endotracheal Tube Endotracheal Tube 06/19/18 12:00 97.6 94 22 142/55 (84) 100 06/19/18 11:38 91 27 100 Mechanical Ventilator 40 06/19/18 11:00 94 21 141/70 (93) 100 06/19/18 10:53 91 27 40 06/19/18 10:00 91 20 112/46 (68) 100 06/19/18 09:21 97.6 06/19/18 09:00 98 24 112/46 (68) 100 06/19/18 08:00 Endotracheal Tube Endotracheal Tube 06/19/18 08:00 76 06/19/18 08:00 100.4 99 25 110/65 (80) 99 06/19/18 08:00 50 06/19/18 07:58 97 24 98 Mechanical Ventilator 40 06/19/18 07:00 100 19 112/52 (72) 100 06/19/18 06:50 97 24 40 06/19/18 06:00 94 19 123/48 (73) 100 06/19/18 05:11 94 19 40 06/19/18 05:00 94 19 123/61 (81) 100 06/19/18 04:00 Endotracheal Tube Endotracheal Tube 06/19/18 04:00 50 06/19/18 04:00 85 06/19/18 04:00 98.5 84 19 97/43 (61) 100 06/19/18 03:12 80 16 100 Mechanical Ventilator 40 06/19/18 03:04 79 16 40 06/19/18 03:04 79 16 100 Mechanical Ventilator 40 06/19/18 03:00 82 19 97/43 (61) 100 06/19/18 02:00 79 19 104/46 (65) 100 06/19/18 01:07 85 17 40 06/19/18 01:00 86 19 104/45 (64) 100 06/19/18 00:00 87 06/19/18 00:00 50 06/19/18 00:00 98.4 91 19 116/45 (68) 100 06/19/18 00:00 Endotracheal Tube Endotracheal Tube 06/18/18 23:37 94 17 100 Mechanical Ventilator 40 06/18/18 23:29 95 16 100 Mechanical Ventilator 40 06/18/18 23:29 94 16 40 06/18/18 23:00 97 19 162/66 (98) 100 06/18/18 22:00 86 19 95/43 (60) 100 06/18/18 21:00 86 19 89/40 (56) 100 06/18/18 20:50 89 19 40 06/18/18 20:00 88 06/18/18 20:00 98.4 88 19 101/40 (60) 100 06/18/18 20:00 Endotracheal Tube Endotracheal Tube 06/18/18 20:00 50 06/18/18 19:13 86 16 50 06/18/18 19:12 88 16 100 Mechanical Ventilator 50 06/18/18 19:04 94 17 100 Mechanical Ventilator 50 06/18/18 19:00 95 19 90/40 (57) 100 06/18/18 18:00 87 22 109/47 (67) 100 06/18/18 17:00 88 19 94/49 (64) 100 06/18/18 16:50 92 23 50 06/18/18 16:00 85 06/18/18 16:00 Endotracheal Tube Endotracheal Tube 06/18/18 16:00 50 06/18/18 16:00 98.2 91 20 107/56 (73) 100 06/18/18 15:28 93 16 97 Mechanical Ventilator 50 06/18/18 15:18 79 19 100 Mechanical Ventilator 50 06/18/18 15:17 79 19 50 06/18/18 15:00 77 19 107/50 (69) 100 06/18/18 14:00 80 19 113/75 (88) 100 General Appearance: no apparent distress, on vent, patient on isolation Neck: supple Cardiovascular: normal rate Respiratory/Chest: lungs clear Abdomen: normal bowel sounds, non tender, soft Extremities: no swelling Intake and Output 06/18/18 06/19/18 18:59 06:59 Intake Total 1315 ml 2117 ml Output Total 260 ml 140 ml Balance 1055 ml 1977 ml Free Water 582 ml IV Total 955 ml 900 ml Tube Feeding 360 ml 635 ml Output Urine Total 260 ml 140 ml Laboratory Tests Test 06/19/18 05:00 White Blood Count 9.0 K/UL (4.8-10.8) Red Blood Count 3.94 M/UL (4.20-5.40) L Hemoglobin 8.9 G/DL (12.0-16.0) L Hematocrit 28.3 % (37.0-47.0) L Mean Corpuscular Volume 72 FL (80-99) L Mean Corpuscular Hemoglobin 22.6 PG (27.0-31.0) L Mean Corpuscular Hemoglobin Concent 31.5 G/DL (32.0-36.0) L Red Cell Distribution Width 18.0 % (11.6-14.8) H Platelet Count 260 K/UL (150-450) Mean Platelet Volume 7.8 FL (6.5-10.1) Neutrophils (%) (Auto) 62.1 % (45.0-75.0) Lymphocytes (%) (Auto) 21.9 % (20.0-45.0) Monocytes (%) (Auto) 6.2 % (1.0-10.0) Eosinophils (%) (Auto) 9.2 % (0.0-3.0) H Basophils (%) (Auto) 0.5 % (0.0-2.0) Prothrombin Time 10.5 SEC (9.30-11.50) Prothromb Time International Ratio 1.0 (0.9-1.1) Activated Partial Thromboplast Time 33 SEC (23-33) Sodium Level 135 MMOL/L (136-145) L Potassium Level 4.8 MMOL/L (3.5-5.1) Chloride Level 101 MMOL/L (98-107) Carbon Dioxide Level 26 MMOL/L (21-32) Anion Gap 8 mmol/L (5-15) Blood Urea Nitrogen 77 mg/dL (7-18) H Creatinine 5.0 MG/DL (0.55-1.30) H Estimat Glomerular Filtration Rate mL/min (>60) Glucose Level 94 MG/DL (74-106) Uric Acid 8.5 MG/DL (2.6-7.2) H Calcium Level 8.7 MG/DL (8.5-10.1) Phosphorus Level 4.5 MG/DL (2.5-4.9) Magnesium Level 2.1 MG/DL (1.8-2.4) Total Bilirubin 0.2 MG/DL (0.2-1.0) Aspartate Amino Transf (AST/SGOT) 15 U/L (15-37) Alanine Aminotransferase (ALT/SGPT) 18 U/L (12-78) Alkaline Phosphatase 87 U/L (46-116) Pro-B-Type Natriuretic Peptide 3011 pg/mL (0-125) H Total Protein 6.3 G/DL (6.4-8.2) L Albumin 2.0 G/DL (3.4-5.0) L Globulin 4.3 g/dL Albumin/Globulin Ratio 0.5 (1.0-2.7) L Microbiology Date/Time Source Procedure Growth Status 06/17/18 12:00 Sputum Expectorated Gram Stain - Final Resulted 06/17/18 12:00 Sputum Culture - Preliminary Gram Negative Albin Resulted 06/17/18 17:30 Stool Clostridium difficile Toxin Assay - Final Complete Geoffrey Sandhu MD Jun 19, 2018 13:31
--- NOTE | 2018-06-19 15:12 | NUR ---
NURSE NOTES: SUCTIONED AND REPOSITIONED PATIENT. WILL CONTINUE TO MONITOR.
--- NOTE | 2018-06-19 15:32 | Pulmonolgy Critical Care Note ---
Critical Care - Asmt/Plan Assessment/Plan: Pulmonary Critical Care Progress Note HPI Patient is an 87 y/o female with hx of severe obstructive asthma, CHF, chronic hypercapnic respiratory failure admitted with respiratory distress and altered mental status. Apparently had R lung opacification and had been on BiPAP but was deemed to have failed bipap and intubated. She is currently on BiPAP, previously intubated. She has been treated with antibiotics for possible pneumonia. Some secretions noted. No new issues. Assessment/Plan Problem List: 1. Acute on chronic hypercapnic respiratory failure 2. R lung atelectasis, possibly mucous plugging - improving on CXR 3. Pulmonary edema 4. chronic obstructive asthma 5. Pneumonia 6. Hx afib 7. MRSA pna, recurrent fever and increased leukocytosis Plan: -Continue current AC settings -aggressive pulmonary hygiene with duonebs/mucomyst/suctioning q4 -chest PT R lung -may need bronchoscopy -monitor volumes -monitor renal function -abx per ID, reculture Time: 45 min case d/w RN Subjective ROS Limited/Unobtainable: Yes Interval Events: Desaturating on BiPAP. CXR with complete collapse of right lung. Allergies: Coded Allergies: Mushroom (Verified Allergy, Severe, 05/28/18) MORPHINE (Unverified Allergy, Intermediate, Itching, 01/04/15) PENICILLINS (Unverified Allergy, Intermediate, Hives, 01/04/15) CELECOXIB (Verified Allergy, Mild, 01/15/09) Objective Vital Signs Noted General Appearance: other - Distress on BiPAP Respiratory/Chest: other - absent breath sounds on right Cardiovascular: normal rate Abdomen: soft, non tender Extremities: no edema Microbiology Date/Time Source Procedure Growth Status 06/15/18 17:30 Sputum Gram Stain - Final Resulted 06/15/18 17:30 Sputum Sputum Culture Pending Resulted 06/15/18 17:30 Indwelling Cath Urine Culture - Preliminary NO GROWTH Resulted Laboratory Tests 06/15/18 17:30: Urine Color Yellow, Urine Appearance Cloudy, Urine pH 5, Urine Specific [place] 1.010, Urine Protein 3+H, Urine Glucose (UA) Negative, Urine Ketones Negative, Urine Blood 4+H, Urine Nitrite Negative, Urine Bilirubin Negative, Urine Urobilinogen Normal, Urine Leukocyte Esterase 2+H, Urine RBC 5-10H, Urine WBC 10 -15H, Urine Squamous Epithelial Cells Few, Urine Amorphous Sediment ManyH, Urine Bacteria ModerateH, Urine Yeast ManyH 06/16/18 05:00: White Blood Count 22.2*H, Red Blood Count 4.95, Hemoglobin 11.4L, Hematocrit 36.4L, Mean Corpuscular Volume 73L, Mean Corpuscular Hemoglobin 23.0L, Mean Corpuscular Hemoglobin Concent 31.3L, Red Cell Distribution Width 17.8H, Platelet Count 409, Mean Platelet Volume 7.5, Neutrophils (%) (Auto) , Lymphocytes (%) (Auto) , Monocytes (%) (Auto) , Eosinophils (%) (Auto) , Basophils (%) (Auto) , Differential Total Cells Counted 100, Neutrophils % ( Manual) 86H, Lymphocytes % (Manual) 7L, Monocytes % (Manual) 4, Eosinophils % ( Manual) 3, Basophils % (Manual) 0, Band Neutrophils 0, Platelet Estimate Adequate, Platelet Morphology Normal, Hypochromasia 1+, Anisocytosis 1+, Microcytosis 1+, Sodium Level 143, Potassium Level 4.4, Chloride Level 105, Carbon Dioxide Level 28, Anion Gap 10, Blood Urea Nitrogen 51H, Creatinine 2.5H , Estimat Glomerular Filtration Rate , Glucose Level 111H, Calcium Level 9.8, Total Bilirubin 0.6, Direct Bilirubin 0.2, Aspartate Amino Transf (AST/SGOT) 17 , Alanine Aminotransferase (ALT/SGPT) 27, Alkaline Phosphatase 112, C-Reactive Protein, Quantitative 45.0H, Total Protein 7.4, Albumin 2.5L Current Medications Medications (Trade) Dose Ordered Sig/Ann Route PRN Reason Start Time Stop Time Status Last Admin Dose Admin Acetaminophen (Tylenol) 650 mg Q4H PRN ORAL Mild Pain/Temp > 100.5 06/12/18 18:00 06/27/18 17:59 06/15/18 11:48 Acetylcysteine (Mucomyst) 100 mg Q4HRT HHN 06/12/18 19:00 07/09/18 21:29 06/16/18 13:55 Albuterol/ Ipratropium (Albuterol/ Ipratropium) 3 ml Q4H PRN HHN Shortness of Breath 06/14/18 23:45 06/19/18 23:44 06/16/18 13:56 Amiodarone HCl (Cordarone) 100 mg DAILY ORAL 06/13/18 09:00 06/30/18 08:59 06/16/18 10:09 Amlodipine Besylate (Norvasc) 5 mg BID ORAL 06/12/18 18:00 06/27/18 08:59 06/16/18 10:09 Cefepime HCl 1 gm/ Dextrose 55 ml @ 110 mls/hr Q24H IV 06/13/18 09:00 06/17/18 23:59 06/16/18 10:08 Chlorhexidine Gluconate (Myra-Hex 2%) 1 applic DAILY@2000 TOPIC 06/12/18 20:00 07/02/18 19:59 06/15/18 21:03 Dextrose/ Electrolytes 1,000 ml @ 75 mls/hr [id number] IV 06/16/18 09:45 06/16/18 17:59 06/16/18 10:17 Dextrose/ Electrolytes 1,000 ml @ 75 mls/hr [id number] IV 06/16/18 18:00 07/16/18 17:59 Haloperidol Lactate (Haldol) 5 mg Q6H PRN IM Agitation 06/12/18 18:15 07/08/18 12:14 Heparin Sodium (Porcine) (Heparin 5000 units/ml) 5,000 units EVERY 12 HOURS SUBQ 06/12/18 21:00 06/27/18 08:59 06/16/18 10:12 Lorazepam (Ativan 2mg/ml 1ml) 0.5 mg Q3H PRN IV For Anxiety 06/12/18 18:15 06/18/18 15:11 Metoprolol Tartrate (Lopressor) 5 mg Q6H PRN IVP SBP > 125 06/16/18 11:14 07/16/18 11:13 06/16/18 11:20 Nitroglycerin (Ntg) 0.4 mg Q5M PRN SL Prn Chest Pain 06/12/18 17:45 06/27/18 13:29 Ondansetron HCl (Zofran) 4 mg Q6H PRN IVP Nausea & Vomiting 06/12/18 18:00 06/27/18 17:59 Pantoprazole (Protonix) 40 mg DAILY IV 06/13/18 09:00 07/03/18 08:59 06/16/18 10:17 Polyethylene Glycol (Miralax) 17 gm BEDTIME ORAL 06/12/18 21:00 07/06/18 20:59 06/15/18 21:04 Polyethylene Glycol (Miralax) 17 gm DAILYPRN PRN ORAL Constipation 06/12/18 18:00 07/12/18 17:59 Quetiapine Fumarate (SEROquel) 25 mg Q6H PRN ORAL For Anxiety 06/12/18 18:00 06/29/18 17:59 06/16/18 10:20 Vancomycin HCl (Vanco rx to dose) 1 ea DAILY PRN MISC Per rx protocol 06/12/18 18:00 07/12/18 17:59 Vancomycin HCl 750 mg/Sodium Chloride 275 ml @ 183.333 mls/hr Q48H IVPB 06/12/18 16:00 06/17/18 15:59 06/14/18 16:33 Critical Care - Objective Last 24 Hour Vital Signs Date Time Temp Pulse Resp B/P (MAP) Pulse Ox O2 Delivery O2 Flow Rate FiO2 06/19/18 15:28 106 22 40 06/19/18 15:22 106 22 100 Mechanical Ventilator 40 06/19/18 15:00 90 18 135/56 (82) 100 06/19/18 14:00 94 23 135/51 (79) 100 06/19/18 13:00 101 22 132/57 (82) 100 06/19/18 12:45 100 25 40 06/19/18 12:00 92 06/19/18 12:00 50 06/19/18 12:00 Endotracheal Tube Endotracheal Tube 06/19/18 12:00 97.6 94 22 142/55 (84) 100 06/19/18 11:38 91 27 100 Mechanical Ventilator 40 06/19/18 11:00 94 21 141/70 (93) 100 06/19/18 10:53 91 27 40 06/19/18 10:00 91 20 112/46 (68) 100 06/19/18 09:23 96 24 40 06/19/18 09:21 97.6 06/19/18 09:00 98 24 112/46 (68) 100 06/19/18 08:00 Endotracheal Tube Endotracheal Tube 06/19/18 08:00 76 06/19/18 08:00 100.4 99 25 110/65 (80) 99 06/19/18 08:00 50 06/19/18 07:58 97 24 98 Mechanical Ventilator 40 06/19/18 07:00 100 19 112/52 (72) 100 06/19/18 06:50 97 24 40 06/19/18 06:00 94 19 123/48 (73) 100 06/19/18 05:11 94 19 40 06/19/18 05:00 94 19 123/61 (81) 100 06/19/18 04:00 Endotracheal Tube Endotracheal Tube 06/19/18 04:00 50 06/19/18 04:00 85 06/19/18 04:00 98.5 84 19 97/43 (61) 100 06/19/18 03:12 80 16 100 Mechanical Ventilator 40 06/19/18 03:04 79 16 40 06/19/18 03:04 79 16 100 Mechanical Ventilator 40 06/19/18 03:00 82 19 97/43 (61) 100 06/19/18 02:00 79 19 104/46 (65) 100 06/19/18 01:07 85 17 40 06/19/18 01:00 86 19 104/45 (64) 100 06/19/18 00:00 87 06/19/18 00:00 50 06/19/18 00:00 98.4 91 19 116/45 (68) 100 06/19/18 00:00 Endotracheal Tube Endotracheal Tube 06/18/18 23:37 94 17 100 Mechanical Ventilator 40 06/18/18 23:29 95 16 100 Mechanical Ventilator 40 06/18/18 23:29 94 16 40 06/18/18 23:00 97 19 162/66 (98) 100 06/18/18 22:00 86 19 95/43 (60) 100 06/18/18 21:00 86 19 89/40 (56) 100 06/18/18 20:50 89 19 40 06/18/18 20:00 88 06/18/18 20:00 98.4 88 19 101/40 (60) 100 06/18/18 20:00 Endotracheal Tube Endotracheal Tube 06/18/18 20:00 50 06/18/18 19:13 86 16 50 06/18/18 19:12 88 16 100 Mechanical Ventilator 50 06/18/18 19:04 94 17 100 Mechanical Ventilator 50 06/18/18 19:00 95 19 90/40 (57) 100 06/18/18 18:00 87 22 109/47 (67) 100 06/18/18 17:00 88 19 94/49 (64) 100 06/18/18 16:50 92 23 50 06/18/18 16:00 85 06/18/18 16:00 Endotracheal Tube Endotracheal Tube 06/18/18 16:00 50 06/18/18 16:00 98.2 91 20 107/56 (73) 100 Micro: Microbiology Date/Time Source Procedure Growth Status 06/17/18 12:00 Sputum Expectorated Gram Stain - Final Resulted 06/17/18 12:00 Sputum Culture - Preliminary Gram Negative Albin Resulted 06/17/18 17:30 Stool Clostridium difficile Toxin Assay - Final Complete Critical Care - Subjective ROS Limited/Unobtainable: No FI02: 40 Vent Support Breath Rate: 16 Vent Support Mode: AC Vent Tidal Volume: 400 Sputum Amount: Small PEEP: 5.0 PIP: 33 Tube Feeding Amount: 55 I&O: Intake and Output 06/18/18 06/19/18 18:59 06:59 Intake Total 1315 ml 2117 ml Output Total 260 ml 140 ml Balance 1055 ml 1977 ml Free Water 582 ml IV Total 955 ml 900 ml Tube Feeding 360 ml 635 ml Output Urine Total 260 ml 140 ml ET-Tube: 7.5 ET Position: 23 Clint Zaidi MD Jun 19, 2018 15:32
[2018-06-19] MEDS ORDERED: Tubing IV Secondary IV ONE (17:19)
[2018-06-19] MEDS: Meropenem 500 MG in NS 55 ML IVPB SCH (17:24)
--- NOTE | 2018-06-19 17:33 | NUR ---
NURSE NOTES: PATIENT KEPT CLEAN AND DRY.NOTED LIQUIDY BM. LINEN CHANGE. TOLERATED VENT SETTINGS. NO SIGNS OF DISTRESS. WILL CONTINUE TO MONITOR.
--- NOTE | 2018-06-19 17:57 | General Progress Note ---
Assessment/Plan Status: progressing Assessment/Plan This is an 87-year-old female admitted with chronic obstructive pulmonary disease exacerbation, right lower lobe infiltrate/pneumonia with altered mental status and acute kidney injury. The patient will be admitted to [facility] with the following medical problems. 1. Chronic obstructive pulmonary disease exacerbation and pneumonia. The patient has been seen by Pulmonary. Infectious Disease has been consulted, pancultured. IV antibiotics per ID. Continue with BiPAP and suction p.r.n. Transition to Venturi-mask when stable. 2. Acute kidney injury. We will monitor I's and O's, gentle intravenous fluids. Repeat a BMP in a.m. Consider Nephrology consult. 3. History of chronic atrial fibrillation. Continue with amiodarone. The patient is in sinus rhythm at this time. 4. History of hypertension. Continue with amlodipine and hold for systolic blood pressure less than 110. 5. Altered mental status, most likely from above conditions. We will keep n.p.o. except for medications and start IV fluids. 6. DVT prophylaxis with heparin subcutaneous and SCDs. 7. The patient is Full Code per policy. We will discuss with the family. 8. hypokalmia 9. Anemia 10. CHf acute on chronic 11. leucocytosis 12. ARF? ATN 13. C dif positive Plan: - now intubated in icu - continue respiratory support - consider repeat Lasix today - aggressive pulmonary suction - HD on hold as patient putting out better urine today - antibiotics per ID - consider adding flagyl iv or oral vanco - am labs discussed with nurse and son Subjective Date patient seen: Jun 19, 2018 ROS Limited/Unobtainable: Yes Allergies: Coded Allergies: Mushroom (Verified Allergy, Severe, 05/28/18) MORPHINE (Unverified Allergy, Intermediate, Itching, 01/04/15) PENICILLINS (Unverified Allergy, Intermediate, Hives, 01/04/15) CELECOXIB (Verified Allergy, Mild, 01/15/09) Subjective patient is now reintubated, in renal failure, HD on hold as making better urine today, C dif positive Objective Last 24 Hour Vital Signs Date Time Temp Pulse Resp B/P (MAP) Pulse Ox O2 Delivery O2 Flow Rate FiO2 06/19/18 17:16 93 16 40 06/19/18 17:00 92 26 139/55 (83) 100 06/19/18 16:00 97 06/19/18 16:00 40 06/19/18 15:32 100 20 100 Mechanical Ventilator 40 06/19/18 15:28 106 22 40 06/19/18 15:22 106 22 100 Mechanical Ventilator 40 06/19/18 15:00 90 18 135/56 (82) 100 06/19/18 14:00 94 23 135/51 (79) 100 06/19/18 13:00 101 22 132/57 (82) 100 06/19/18 12:45 100 25 40 06/19/18 12:00 92 06/19/18 12:00 40 06/19/18 12:00 Endotracheal Tube Endotracheal Tube 06/19/18 12:00 97.6 94 22 142/55 (84) 100 06/19/18 11:40 91 26 100 Mechanical Ventilator 40 06/19/18 11:38 91 27 100 Mechanical Ventilator 40 06/19/18 11:00 94 21 141/70 (93) 100 06/19/18 10:53 91 27 40 06/19/18 10:00 91 20 112/46 (68) 100 06/19/18 09:23 96 24 40 06/19/18 09:21 97.6 06/19/18 09:00 98 24 112/46 (68) 100 06/19/18 08:08 95 22 98 Mechanical Ventilator 40 06/19/18 08:00 Endotracheal Tube Endotracheal Tube 06/19/18 08:00 76 06/19/18 08:00 100.4 99 25 110/65 (80) 99 06/19/18 08:00 40 06/19/18 07:58 97 24 98 Mechanical Ventilator 40 06/19/18 07:00 100 19 112/52 (72) 100 06/19/18 06:50 97 24 40 06/19/18 06:00 94 19 123/48 (73) 100 06/19/18 05:11 94 19 40 06/19/18 05:00 94 19 123/61 (81) 100 06/19/18 04:00 Endotracheal Tube Endotracheal Tube 06/19/18 04:00 50 06/19/18 04:00 85 06/19/18 04:00 98.5 84 19 97/43 (61) 100 06/19/18 03:12 80 16 100 Mechanical Ventilator 40 06/19/18 03:04 79 16 40 06/19/18 03:04 79 16 100 Mechanical Ventilator 40 06/19/18 03:00 82 19 97/43 (61) 100 06/19/18 02:00 79 19 104/46 (65) 100 06/19/18 01:07 85 17 40 06/19/18 01:00 86 19 104/45 (64) 100 06/19/18 00:00 87 06/19/18 00:00 50 06/19/18 00:00 98.4 91 19 116/45 (68) 100 06/19/18 00:00 Endotracheal Tube Endotracheal Tube 06/18/18 23:37 94 17 100 Mechanical Ventilator 40 06/18/18 23:29 95 16 100 Mechanical Ventilator 40 06/18/18 23:29 94 16 40 06/18/18 23:00 97 19 162/66 (98) 100 06/18/18 22:00 86 19 95/43 (60) 100 06/18/18 21:00 86 19 89/40 (56) 100 06/18/18 20:50 89 19 40 06/18/18 20:00 88 06/18/18 20:00 98.4 88 19 101/40 (60) 100 06/18/18 20:00 Endotracheal Tube Endotracheal Tube 06/18/18 20:00 50 06/18/18 19:13 86 16 50 06/18/18 19:12 88 16 100 Mechanical Ventilator 50 06/18/18 19:04 94 17 100 Mechanical Ventilator 50 06/18/18 19:00 95 19 90/40 (57) 100 06/18/18 18:00 87 22 109/47 (67) 100 Intake and Output 06/18/18 06/19/18 18:59 06:59 Intake Total 1315 ml 2117 ml Output Total 260 ml 140 ml Balance 1055 ml 1977 ml Free Water 582 ml IV Total 955 ml 900 ml Tube Feeding 360 ml 635 ml Output Urine Total 260 ml 140 ml Laboratory Tests 06/19/18 05:00: White Blood Count 9.0, Red Blood Count 3.94L, Hemoglobin 8.9L, Hematocrit 28.3L , Mean Corpuscular Volume 72L, Mean Corpuscular Hemoglobin 22.6L, Mean Corpuscular Hemoglobin Concent 31.5L, Red Cell Distribution Width 18.0H, Platelet Count 260, Mean Platelet Volume 7.8, Neutrophils (%) (Auto) 62.1, Lymphocytes (%) (Auto) 21.9, Monocytes (%) (Auto) 6.2, Eosinophils (%) (Auto) 9.2H, Basophils (%) (Auto) 0.5, Prothrombin Time 10.5, Prothromb Time International Ratio 1.0, Activated Partial Thromboplast Time 33, Sodium Level 135L, Potassium Level 4.8, Chloride Level 101, Carbon Dioxide Level 26, Anion Gap 8, Blood Urea Nitrogen 77H, Creatinine 5.0H, Estimat Glomerular Filtration Rate , Glucose Level 94, Uric Acid 8.5H, Calcium Level 8.7, Phosphorus Level 4.5 , Magnesium Level 2.1, Total Bilirubin 0.2, Aspartate Amino Transf (AST/SGOT) 15 , Alanine Aminotransferase (ALT/SGPT) 18, Alkaline Phosphatase 87, Pro-B-Type Natriuretic Peptide 3011H, Total Protein 6.3L, Albumin 2.0L, Globulin 4.3, Albumin/Globulin Ratio 0.5L 06/19/18 14:45: Random Vancomycin Level 25.3 Height (Feet): 5 Height (Inches): 4.00 Weight (Pounds): 114 General Appearance: no apparent distress, alert EENT: PERRL/EOMI, pharynx normal Neck: non-tender, supple Cardiovascular: normal rate, regular rhythm, no gallop/murmur, no JVD Respiratory/Chest: decreased breath sounds Abdomen: non tender, soft, no mass Extremities: non-tender, normal inspection, no calf tenderness Edema: no edema noted Arm (L), no edema noted Arm (R), no edema noted Leg (L), no edema noted Leg (R), no edema noted Pedal (L), no edema noted Pedal (R), no edema noted Generalized Neurologic: alert Skin: warm/dry Lymphatic: normal anterior cervical (L), normal anterior cervical (R), normal posterior cervical (L), normal posterior cervical (R), normal submandibular (L) , normal submandibular (R), normal supraclavicular (L), normal supraclavicular ( R), normal axillary (L), normal axillary (R), normal inguinal (L), normal inguinal (R), normal other Cruz Valderrama MD Jun 19, 2018 17:57
--- NOTE | 2018-06-19 18:50 | NUR ---
NURSE NOTES: SPOKE AND LEFT A MESSAGE TO DR LOPEZ RE RESULT FOR C-DIFF. AWAITING FOR CALL BACK. WILL CONTINUE TO MONITOR.
--- NOTE | 2018-06-19 19:21 | NUR ---
HAND-OFF: Report given to Ozzy Foley RN.
--- NOTE | 2018-06-19 19:35 | NUR ---
NURSE NOTES: Received report from Clement Foley RN. patient in bed sleeping comfortably. Patient is orally intubated ETT 7.5/23cm lip line, vent settings AC 16, TV 400 fi02 50% peep of 5. no s/s of acute distress noted. NGT intact running Glucerna 1.2 at 55cc/hr. HOB elevated no residual. Sinclair draining. On P200 for wound management. MILY PICC intact running D51/2 NS at 75cc/hr. Bilateral soft wrist restraint checked. Bed alarm on. Bed locked and in low position. Family at bedside. Will continue plan of care. Addendum: 06/20/18 at 0045 by HAYLEY HUNTER RN RN running D5NS at 75cc/hr
--- NOTE | 2018-06-19 20:30 | General Progress Note ---
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 Subjective Allergies: Coded Allergies: Mushroom (Verified Allergy, Severe, 05/28/18) MORPHINE (Unverified Allergy, Intermediate, Itching, 01/04/15) PENICILLINS (Unverified Allergy, Intermediate, Hives, 01/04/15) CELECOXIB (Verified Allergy, Mild, 01/15/09) Subjective no changes confused agitated Objective Last 24 Hour Vital Signs Date Time Temp Pulse Resp B/P (MAP) Pulse Ox O2 Delivery O2 Flow Rate FiO2 06/19/18 19:20 99 20 100 Mechanical Ventilator 40 06/19/18 19:05 99 20 40 06/19/18 19:00 92 21 148/57 (87) 100 06/19/18 18:06 99.3 06/19/18 18:00 97 21 148/63 (91) 100 06/19/18 17:16 93 16 40 06/19/18 17:00 92 26 139/55 (83) 100 06/19/18 16:00 97 06/19/18 16:00 Endotracheal Tube Endotracheal Tube 06/19/18 16:00 40 06/19/18 16:00 99.8 94 17 139/55 (83) 100 06/19/18 15:32 100 20 100 Mechanical Ventilator 40 06/19/18 15:28 106 22 40 06/19/18 15:22 106 22 100 Mechanical Ventilator 40 06/19/18 15:00 90 18 135/56 (82) 100 06/19/18 14:00 94 23 135/51 (79) 100 06/19/18 13:00 101 22 132/57 (82) 100 06/19/18 12:45 100 25 40 06/19/18 12:00 92 06/19/18 12:00 40 06/19/18 12:00 Endotracheal Tube Endotracheal Tube 06/19/18 12:00 97.6 94 22 142/55 (84) 100 06/19/18 11:40 91 26 100 Mechanical Ventilator 40 06/19/18 11:38 91 27 100 Mechanical Ventilator 40 06/19/18 11:00 94 21 141/70 (93) 100 06/19/18 10:53 91 27 40 06/19/18 10:00 91 20 112/46 (68) 100 06/19/18 09:23 96 24 40 06/19/18 09:00 98 24 112/46 (68) 100 06/19/18 08:08 95 22 98 Mechanical Ventilator 40 06/19/18 08:00 Endotracheal Tube Endotracheal Tube 06/19/18 08:00 76 06/19/18 08:00 100.4 99 25 110/65 (80) 99 06/19/18 08:00 40 06/19/18 07:58 97 24 98 Mechanical Ventilator 40 06/19/18 07:00 100 19 112/52 (72) 100 06/19/18 06:50 97 24 40 06/19/18 06:00 94 19 123/48 (73) 100 06/19/18 05:11 94 19 40 06/19/18 05:00 94 19 123/61 (81) 100 06/19/18 04:00 Endotracheal Tube Endotracheal Tube 06/19/18 04:00 50 06/19/18 04:00 85 06/19/18 04:00 98.5 84 19 97/43 (61) 100 06/19/18 03:12 80 16 100 Mechanical Ventilator 40 06/19/18 03:04 79 16 40 06/19/18 03:04 79 16 100 Mechanical Ventilator 40 06/19/18 03:00 82 19 97/43 (61) 100 06/19/18 02:00 79 19 104/46 (65) 100 06/19/18 01:07 85 17 40 06/19/18 01:00 86 19 104/45 (64) 100 06/19/18 00:00 87 06/19/18 00:00 50 06/19/18 00:00 98.4 91 19 116/45 (68) 100 06/19/18 00:00 Endotracheal Tube Endotracheal Tube 06/18/18 23:37 94 17 100 Mechanical Ventilator 40 06/18/18 23:29 95 16 100 Mechanical Ventilator 40 06/18/18 23:29 94 16 40 06/18/18 23:00 97 19 162/66 (98) 100 06/18/18 22:00 86 19 95/43 (60) 100 06/18/18 21:00 86 19 89/40 (56) 100 06/18/18 20:50 89 19 40 Intake and Output 06/18/18 06/19/18 19:00 07:00 Intake Total 1315 ml 2142 ml Output Total 255 ml 130 ml Balance 1060 ml 2012 ml Free Water 582 ml IV Total 955 ml 900 ml Tube Feeding 360 ml 660 ml Output Urine Total 255 ml 130 ml Laboratory Tests 06/19/18 05:00: White Blood Count 9.0, Red Blood Count 3.94L, Hemoglobin 8.9L, Hematocrit 28.3L , Mean Corpuscular Volume 72L, Mean Corpuscular Hemoglobin 22.6L, Mean Corpuscular Hemoglobin Concent 31.5L, Red Cell Distribution Width 18.0H, Platelet Count 260, Mean Platelet Volume 7.8, Neutrophils (%) (Auto) 62.1, Lymphocytes (%) (Auto) 21.9, Monocytes (%) (Auto) 6.2, Eosinophils (%) (Auto) 9.2H, Basophils (%) (Auto) 0.5, Prothrombin Time 10.5, Prothromb Time International Ratio 1.0, Activated Partial Thromboplast Time 33, Sodium Level 135L, Potassium Level 4.8, Chloride Level 101, Carbon Dioxide Level 26, Anion Gap 8, Blood Urea Nitrogen 77H, Creatinine 5.0H, Estimat Glomerular Filtration Rate , Glucose Level 94, Uric Acid 8.5H, Calcium Level 8.7, Phosphorus Level 4.5 , Magnesium Level 2.1, Total Bilirubin 0.2, Aspartate Amino Transf (AST/SGOT) 15 , Alanine Aminotransferase (ALT/SGPT) 18, Alkaline Phosphatase 87, Pro-B-Type Natriuretic Peptide 3011H, Total Protein 6.3L, Albumin 2.0L, Globulin 4.3, Albumin/Globulin Ratio 0.5L 06/19/18 14:45: Random Vancomycin Level 25.3 Height (Feet): 5 Height (Inches): 4.00 Weight (Pounds): 114 General Appearance: alert, confused, agitated Liz Lo MD Jun 19, 2018 20:30
[2018-06-19] MEDS: Dyna-Hex 2% Top Sol 2oz TOPIC SCH (20:59)
[2018-06-19] MEDS: Miralax 17gm pkt ORAL SCH (21:00)
--- NOTE | 2018-06-19 21:00 | NUR ---
NURSE NOTES: CHG bath given. Repositioned. Suctioned and oral care provided.
--- NOTE | 2018-06-19 22:00 | NUR ---
NURSE NOTES: patient in bed awake noted with anxiety trying to pulled out tubing and tried slide down the bed repositioned patient, talk therapy provided and TV provided not effective. Ativan 0.25ml IVP given effective. will continue to monitor p
[2018-06-20] VITALS (25 sets, daily range): BP systolic 118–167; BP diastolic 41–90
--- NOTE | 2018-06-20 | NUR ---
NURSE NOTES: Patient in bed sleeping comfortably. HOB elevated. No fever. Temp 98.5. On P200 for wound management. Will continue plan of care
[2018-06-20] MEDS: D5NS 1,000 ML IV SCH ×2 (02:01→15:40)
--- NOTE | 2018-06-20 04:00 | NUR ---
NURSE NOTES: Bed bath given. Repositioned. Sinlcair draining. No s/s of acute distress noted.
[2018-06-20] MEDS: LORazepam Inj 2mg/ml 1ml IV PRN ×2 (05:20→20:36)
--- NOTE | 2018-06-20 05:45 | NUR ---
NURSE NOTES: Patient in bed awake noted with anxiety trying to pulled out tubing and tried slide down the bed repositioned patient, talk therapy provided and TV provided not effective. Ativan 0.25ml IVP given effective. will continue to monitor patient.
[2018-06-20 05:58] LABS: BASOPHILS % (AUTO) 1.7 % (0.0-2.0); EOSINOPHILS % (AUTO) 7.2 % (0.0-3.0); HEMATOCRIT 30.5 % (37.0-47.0); HEMOGLOBIN 9.5 G/DL (12.0-16.0); LYMPHOCYTES % (AUTO) 20.4 % (20.0-45.0); MEAN CORPUSCULAR VOLUME 73 FL (80-99); MONOCYTES % (AUTO) 6.5 % (1.0-10.0); NEUTROPHILS % (AUTO) 64.1 % (45.0-75.0); PLATELET COUNT 231 K/UL (150-450); RED BLOOD COUNT 4.18 M/UL (4.20-5.40); RED CELL DISTRIBUTION WIDTH 18.2 % (11.6-14.8); WHITE BLOOD COUNT 10.7 K/UL (4.8-10.8)
[2018-06-20 06:36] LABS: ALANINE AMINOTRANSFERASE 22 U/L (12-78); ALBUMIN 2.5 G/DL (3.4-5.0); ALBUMIN/GLOBULIN RATIO 0.6 (1.0-2.7); ALKALINE PHOSPHATASE 110 U/L (46-116); ANION GAP 10 mmol/L (5-15); ASPARTATE AMINO TRANSFERASE 18 U/L (15-37); BILIRUBIN,TOTAL 0.4 MG/DL (0.2-1.0); BLOOD UREA NITROGEN 85 mg/dL (7-18); CALCIUM 8.5 MG/DL (8.5-10.1); CARBON DIOXIDE 25 MMOL/L (21-32); CHLORIDE 101 MMOL/L (98-107); CREATINE KINASE 71 U/L (26-308); CREATININE 4.9 MG/DL (0.55-1.30); GAMMA GLUTAMYL TRANSPEPTIDASE 18 U/L (5-85); PHOSPHORUS 5.7 MG/DL (2.5-4.9); POTASSIUM 5.2 MMOL/L (3.5-5.1); SODIUM 136 MMOL/L (136-145)
--- NOTE | 2018-06-20 07:15 | NUR ---
HAND-OFF: Report given to Donald JI.
[2018-06-20] MEDS: Albuterol/Ipratropium 3ml neb HHN PRN ×5 (07:25→23:21)
[2018-06-20] MEDS: Acetylcysteine 20% Soln 4ml HHN SCH ×5 (07:26→23:22)
--- NOTE | 2018-06-20 09:00 | NUR ---
Watery stool and frequent linen change noted. Sacral dressing noted soaked. Pt cleaned and repositioned. New optifoam dressing applied over sacrum. Performed oral care per protocol and suctioned pt. 350 mL of gastric residual noted. Turned off NGT feeding at the moment. Will recheck residuals in 1 hr. Pt is lying calm in bed with no distress. Bed in lowest position. Side rails up x 3. Call light within reach
[2018-06-20] MEDS: Amiodarone 200mg tab ORAL SCH ×2 (09:02→17:58)
[2018-06-20] MEDS: Vancomycin oral 125mg/2.5ml NG SCH ×4 (09:03→20:36)
[2018-06-20] MEDS: Heparin 5000 units/ml inj SUBQ SCH ×2 (09:25→20:37)
--- NOTE | 2018-06-20 09:45 | Infectious Diseases Prog Note ---
Assessment/Plan Assessment/Plan 87 yo feamle with PMHx of COPD, HTN, and A.fib sent to the ED from her nuring home for SOB. Sepsis;improving - Likely PNA 06/17 CXR: Increasing right lung opacity, likely representing decreasing pleural fluid but may also represent increasing parenchymal consolidation 06/15 CXR: Increasing opacification right hemithorax, likely reflecting increasing pleural fluid but may also reflect increasing pulmonary parenchymal consolidation 06/14 CXR: Diffuse right lung hazy opacity appears similar to the prior exam. 06/12 CXR: : Hazy opacification of the right hemithorax, likely reflecting pleural fluid, is unchanged. 05/28/18 CXR with atalectasis vs consolidation in the right side. 06/01/18 CXR - Extensive right hemithorax opacification UA (-) sputum cx 06/15: MRSA (likely a colonizer at this point), ESBL E.coli Sputum Cx 05/28/18 - MRSA (Inf Neg) Urine legionella (-) Acute respiratory failure s/p intubation 06/16 Cdiff colitis -06/19 Cdif toxin a/b + R lung collapse: -06/16 CXR: Complete opacification of the right hemithorax. Probably due to complete atelectasis of the right lung, with evidence of abrupt occlusion of the rightmainstem bronchus. Given findings on prior chest radiographs, there is probablysignificant component of pleural effusion as well. Positive blood Cx - Likely contaminant BCx 05/28/18 - CoNS BCX 05/30/18 - NGTD Leukocytosis , SP Fever, improving COPD CAD A. fib PLAN - Switch Meropenem #/-10 to Ertapenem for ESBL Ecoli PNA -Continue PO Vancomycin #2/10 for Cdiff -06/17 SP IV Vancomycin #21 -06/16 SP Cefepime #20 - Monitor CBC and Temps -f/u cx -CXR am We will continue to follow Ms. Nowak during this hospitalization. Subjective Allergies: Coded Allergies: Mushroom (Verified Allergy, Severe, 05/28/18) MORPHINE (Unverified Allergy, Intermediate, Itching, 01/04/15) PENICILLINS (Unverified Allergy, Intermediate, Hives, 01/04/15) CELECOXIB (Verified Allergy, Mild, 01/15/09) Subjective afebrile in 24hrs wbc normal now remains intubated Objective Vital Signs Last 24 Hour Vital Signs Date Time Temp Pulse Resp B/P (MAP) Pulse Ox O2 Delivery O2 Flow Rate FiO2 06/20/18 08:00 80 06/20/18 08:00 98.7 79 16 124/51 (75) 100 06/20/18 08:00 35 06/20/18 08:00 Endotracheal Tube Endotracheal Tube 06/20/18 07:36 81 16 100 Mechanical Ventilator 35 06/20/18 07:26 89 17 100 Mechanical Ventilator 40 06/20/18 07:23 83 16 35 06/20/18 07:00 92 23 133/54 (80) 100 06/20/18 06:00 92 23 132/48 (76) 100 06/20/18 05:01 97 17 35 06/20/18 05:00 101 22 127/51 (76) 100 06/20/18 04:00 92 06/20/18 04:00 40 06/20/18 04:00 Endotracheal Tube Endotracheal Tube 06/20/18 04:00 98.5 92 22 147/56 (86) 100 06/20/18 03:10 Mechanical Ventilator 35 06/20/18 03:10 Mechanical Ventilator 35 06/20/18 03:07 91 18 35 06/20/18 03:00 92 22 167/89 (115) 99 06/20/18 02:00 89 21 143/53 (83) 100 06/20/18 01:40 93 16 40 06/20/18 01:00 87 21 143/55 (84) 100 06/20/18 00:00 98.4 89 21 149/63 (91) 100 06/20/18 00:00 40 06/20/18 00:00 Endotracheal Tube Endotracheal Tube 06/20/18 00:00 90 06/19/18 23:30 79 20 100 Mechanical Ventilator 40 06/19/18 23:20 89 17 100 Mechanical Ventilator 40 06/19/18 23:00 90 21 146/56 (86) 100 06/19/18 22:36 89 17 40 06/19/18 22:00 89 21 130/74 (92) 100 06/19/18 21:23 88 21 40 06/19/18 21:00 89 21 162/61 (94) 100 06/19/18 20:00 Endotracheal Tube Endotracheal Tube 06/19/18 20:00 40 06/19/18 20:00 93 06/19/18 20:00 98.0 89 21 134/78 (96) 100 06/19/18 19:30 100 20 100 Mechanical Ventilator 40 06/19/18 19:20 99 20 100 Mechanical Ventilator 40 06/19/18 19:05 99 20 40 06/19/18 19:00 92 21 148/57 (87) 100 06/19/18 18:06 99.3 06/19/18 18:00 97 21 148/63 (91) 100 06/19/18 17:16 93 16 40 06/19/18 17:00 92 26 139/55 (83) 100 06/19/18 16:00 97 06/19/18 16:00 Endotracheal Tube Endotracheal Tube 06/19/18 16:00 40 06/19/18 16:00 99.8 94 17 139/55 (83) 100 06/19/18 15:32 100 20 100 Mechanical Ventilator 40 06/19/18 15:28 106 22 40 06/19/18 15:22 106 22 100 Mechanical Ventilator 40 06/19/18 15:00 90 18 135/56 (82) 100 06/19/18 14:00 94 23 135/51 (79) 100 06/19/18 13:00 101 22 132/57 (82) 100 06/19/18 12:45 100 25 40 06/19/18 12:00 92 06/19/18 12:00 40 06/19/18 12:00 Endotracheal Tube Endotracheal Tube 06/19/18 12:00 97.6 94 22 142/55 (84) 100 06/19/18 11:40 91 26 100 Mechanical Ventilator 40 06/19/18 11:38 91 27 100 Mechanical Ventilator 40 06/19/18 11:00 94 21 141/70 (93) 100 06/19/18 10:53 91 27 40 06/19/18 10:00 91 20 112/46 (68) 100 Height (Feet): 5 Height (Inches): 4.00 Weight (Pounds): 113 Objective General Appearance: no apparent distress, other - on bipap Neck: supple Cardiovascular: normal rate Respiratory/Chest: lungs clear Abdomen: normal bowel sounds, non tender, soft Extremities: trace edema Microbiology Date/Time Source Procedure Growth Status 06/17/18 12:00 Sputum Expectorated Gram Stain - Final Resulted 06/17/18 12:00 Sputum Culture - Preliminary Escherichia Coli - Esbl Staphylococcus Aureus Resulted 06/17/18 17:30 Stool Clostridium difficile Toxin Assay - Final Complete Laboratory Tests Test 06/19/18 14:45 06/20/18 05:20 Random Vancomycin Level 25.3 ug/mL White Blood Count 10.7 K/UL (4.8-10.8) Red Blood Count 4.18 M/UL (4.20-5.40) L Hemoglobin 9.5 G/DL (12.0-16.0) L Hematocrit 30.5 % (37.0-47.0) L Mean Corpuscular Volume 73 FL (80-99) L Mean Corpuscular Hemoglobin 22.7 PG (27.0-31.0) L Mean Corpuscular Hemoglobin Concent 31.2 G/DL (32.0-36.0) L Red Cell Distribution Width 18.2 % (11.6-14.8) H Platelet Count 231 K/UL (150-450) Mean Platelet Volume 8.3 FL (6.5-10.1) Neutrophils (%) (Auto) 64.1 % (45.0-75.0) Lymphocytes (%) (Auto) 20.4 % (20.0-45.0) Monocytes (%) (Auto) 6.5 % (1.0-10.0) Eosinophils (%) (Auto) 7.2 % (0.0-3.0) H Basophils (%) (Auto) 1.7 % (0.0-2.0) Sodium Level 136 MMOL/L (136-145) Potassium Level 5.2 MMOL/L (3.5-5.1) H Chloride Level 101 MMOL/L (98-107) Carbon Dioxide Level 25 MMOL/L (21-32) Anion Gap 10 mmol/L (5-15) Blood Urea Nitrogen 85 mg/dL (7-18) H Creatinine 4.9 MG/DL (0.55-1.30) H Estimat Glomerular Filtration Rate mL/min (>60) Glucose Level 126 MG/DL (74-106) H Uric Acid 8.0 MG/DL (2.6-7.2) H Calcium Level 8.5 MG/DL (8.5-10.1) Phosphorus Level 5.7 MG/DL (2.5-4.9) H Magnesium Level 2.0 MG/DL (1.8-2.4) Total Bilirubin 0.4 MG/DL (0.2-1.0) Gamma Glutamyl Transpeptidase 18 U/L (5-85) Aspartate Amino Transf (AST/SGOT) 18 U/L (15-37) Alanine Aminotransferase (ALT/SGPT) 22 U/L (12-78) Alkaline Phosphatase 110 U/L (46-116) Total Creatine Kinase 71 U/L (26-308) C-Reactive Protein, Quantitative 11.0 mg/dL (0.00-0.90) H Pro-B-Type Natriuretic Peptide 2733 pg/mL (0-125) H Total Protein 6.8 G/DL (6.4-8.2) Albumin 2.5 G/DL (3.4-5.0) L Globulin 4.3 g/dL Albumin/Globulin Ratio 0.6 (1.0-2.7) L Current Medications Medications (Trade) Dose Ordered Sig/Ann Route PRN Reason Start Time Stop Time Status Last Admin Dose Admin Acetaminophen (Tylenol) 650 mg Q4H PRN ORAL Mild Pain/Temp > 100.5 06/16/18 19:19 07/16/18 19:18 06/19/18 17:36 Acetylcysteine (Mucomyst) 100 mg Q4HRT HHN 06/16/18 23:00 07/09/18 21:29 06/20/18 07:26 Albuterol/ Ipratropium (Albuterol/ Ipratropium) 3 ml Q4HRT PRN HHN Shortness of Breath 06/20/18 04:45 06/25/18 04:44 06/20/18 07:25 Amiodarone HCl (Cordarone) 200 mg BID ORAL 06/17/18 09:00 07/17/18 08:59 06/20/18 09:02 Chlorhexidine Gluconate (Myra-Hex 2%) 1 applic DAILY@2000 TOPIC 06/16/18 20:00 07/02/18 19:59 06/19/18 20:59 Dextrose/Sodium Chloride 1,000 ml @ 75 mls/hr [id number] IV 06/19/18 13:00 07/19/18 12:59 06/20/18 02:01 Haloperidol Lactate (Haldol) 5 mg Q6H PRN IM Agitation 06/16/18 19:20 07/16/18 19:19 Heparin Sodium (Porcine) (Heparin 5000 units/ml) 5,000 units EVERY 12 HOURS SUBQ 06/16/18 21:00 06/27/18 08:59 06/20/18 09:25 Lorazepam (Ativan 2mg/ml 1ml) 0.5 mg Q3H PRN IV For Anxiety 06/16/18 19:20 06/23/18 19:19 06/20/18 05:20 Meropenem 500 mg/ Sodium Chloride 55 ml @ 110 mls/hr Q24H IVPB 06/17/18 18:00 06/21/18 17:59 06/19/18 17:24 Metoprolol Tartrate (Lopressor) 5 mg Q6H PRN IVP SBP > 125 06/16/18 19:20 07/16/18 19:19 Nitroglycerin (Ntg) 0.4 mg Q5M PRN SL Prn Chest Pain 06/16/18 19:20 06/27/18 13:29 Ondansetron HCl (Zofran) 4 mg Q6H PRN IVP Nausea & Vomiting 06/16/18 19:21 07/16/18 19:20 Polyethylene Glycol (Miralax) 17 gm BEDTIME ORAL 06/16/18 21:00 07/06/18 20:59 06/19/18 21:00 Polyethylene Glycol (Miralax) 17 gm DAILYPRN PRN ORAL Constipation 06/16/18 19:21 07/16/18 19:20 Quetiapine Fumarate (SEROquel) 25 mg Q6H PRN ORAL For Anxiety 06/16/18 19:21 07/16/18 19:20 06/18/18 10:06 Vancomycin HCl (Firvanq) 125 mg FOUR TIMES A DAY NG 06/19/18 13:00 06/26/18 12:59 06/20/18 09:03 Natty Hernandes M.D. Jun 20, 2018 09:45
--- NOTE | 2018-06-20 11:32 | NUR ---
Rechecked gastric residual. 20 mL noted. Resumed gastric feeding through NGT with Glucerna 1.5 running at 55mL/Hr. Pt in semi-lopse. No distress noted. Bed in lowest position. Call light within reach. Will continue to monitor pt. Addendum: 06/20/18 at 1142 by Kristin Umana RN NURSE NOTES: wrong time entry. Rechecked gastric residual at 10am.
--- NOTE | 2018-06-20 11:44 | Nephrology Progress Note ---
Assessment/Plan Problem List: (1) Acute renal failure Assessment: Cr rising (2) Anuria (3) Acute respiratory failure Assessment: on vent (4) Dementia (5) Afib Assessment Urine out put rising Cr rising other conditions: (1) Acute respiratory failure (2) Aspiration pneumonia (3) Acute encephalopathy (4) Pleural effusion (5) COPD (chronic obstructive pulmonary disease) (6) CAD (coronary artery disease) (7) Dementia Plan Cr levelin off- Urine out put higher monitor vanco level family agree with HD . trial one dose Lasix 06/19/18-and observe another 24 h for dialysis assessment re intubated now Fluid challenge K and Phos and Mag as needed Anemia porter Adjust BP meds fu Lytes Gastric support pulm support- not tolerating bipap per orders Subjective ROS Limited/Unobtainable: Yes Objective Objective Last 24 Hour Vital Signs Date Time Temp Pulse Resp B/P (MAP) Pulse Ox O2 Delivery O2 Flow Rate FiO2 06/20/18 11:00 85 18 127/74 (91) 100 06/20/18 11:00 86 17 35 06/20/18 10:00 81 20 138/48 (78) 100 06/20/18 09:28 83 18 35 06/20/18 09:00 81 20 138/48 (78) 100 06/20/18 08:00 80 06/20/18 08:00 98.7 79 16 124/51 (75) 100 06/20/18 08:00 35 06/20/18 08:00 Endotracheal Tube Endotracheal Tube 06/20/18 07:36 81 16 100 Mechanical Ventilator 35 06/20/18 07:26 89 17 100 Mechanical Ventilator 40 06/20/18 07:23 83 16 35 06/20/18 07:00 92 23 133/54 (80) 100 06/20/18 06:00 92 23 132/48 (76) 100 06/20/18 05:01 97 17 35 06/20/18 05:00 101 22 127/51 (76) 100 06/20/18 04:00 92 06/20/18 04:00 40 06/20/18 04:00 Endotracheal Tube Endotracheal Tube 06/20/18 04:00 98.5 92 22 147/56 (86) 100 06/20/18 03:10 Mechanical Ventilator 35 06/20/18 03:10 Mechanical Ventilator 35 06/20/18 03:07 91 18 35 06/20/18 03:00 92 22 167/89 (115) 99 06/20/18 02:00 89 21 143/53 (83) 100 06/20/18 01:40 93 16 40 06/20/18 01:00 87 21 143/55 (84) 100 06/20/18 00:00 98.4 89 21 149/63 (91) 100 06/20/18 00:00 40 06/20/18 00:00 Endotracheal Tube Endotracheal Tube 06/20/18 00:00 90 06/19/18 23:30 79 20 100 Mechanical Ventilator 40 06/19/18 23:20 89 17 100 Mechanical Ventilator 40 06/19/18 23:00 90 21 146/56 (86) 100 06/19/18 22:36 89 17 40 06/19/18 22:00 89 21 130/74 (92) 100 06/19/18 21:23 88 21 40 06/19/18 21:00 89 21 162/61 (94) 100 06/19/18 20:00 Endotracheal Tube Endotracheal Tube 06/19/18 20:00 40 06/19/18 20:00 93 06/19/18 20:00 98.0 89 21 134/78 (96) 100 06/19/18 19:30 100 20 100 Mechanical Ventilator 40 06/19/18 19:20 99 20 100 Mechanical Ventilator 40 06/19/18 19:05 99 20 40 06/19/18 19:00 92 21 148/57 (87) 100 06/19/18 18:06 99.3 06/19/18 18:00 97 21 148/63 (91) 100 06/19/18 17:16 93 16 40 06/19/18 17:00 92 26 139/55 (83) 100 06/19/18 16:00 97 06/19/18 16:00 Endotracheal Tube Endotracheal Tube 06/19/18 16:00 40 06/19/18 16:00 99.8 94 17 139/55 (83) 100 06/19/18 15:32 100 20 100 Mechanical Ventilator 40 06/19/18 15:28 106 22 40 06/19/18 15:22 106 22 100 Mechanical Ventilator 40 06/19/18 15:00 90 18 135/56 (82) 100 06/19/18 14:00 94 23 135/51 (79) 100 06/19/18 13:00 101 22 132/57 (82) 100 06/19/18 12:45 100 25 40 06/19/18 12:00 92 06/19/18 12:00 40 06/19/18 12:00 Endotracheal Tube Endotracheal Tube 06/19/18 12:00 97.6 94 22 142/55 (84) 100 Intake and Output 06/19/18 06/20/18 19:00 07:00 Intake Total 2377 ml 2152 ml Output Total 1045 ml 1280 ml Balance 1332 ml 872 ml Free Water 532 ml 532 ml IV Total 1185 ml 900 ml Tube Feeding 660 ml 660 ml Other 60 ml Output Urine Total 895 ml 1280 ml Stool Total 150 ml # Bowel Movements 2 100 Laboratory Tests 06/19/18 14:45: Random Vancomycin Level 25.3 06/20/18 05:20: White Blood Count 10.7, Red Blood Count 4.18L, Hemoglobin 9.5L, Hematocrit 30.5L , Mean Corpuscular Volume 73L, Mean Corpuscular Hemoglobin 22.7L, Mean Corpuscular Hemoglobin Concent 31.2L, Red Cell Distribution Width 18.2H, Platelet Count 231, Mean Platelet Volume 8.3, Neutrophils (%) (Auto) 64.1, Lymphocytes (%) (Auto) 20.4, Monocytes (%) (Auto) 6.5, Eosinophils (%) (Auto) 7.2H, Basophils (%) (Auto) 1.7, Sodium Level 136, Potassium Level 5.2H, Chloride Level 101, Carbon Dioxide Level 25, Anion Gap 10, Blood Urea Nitrogen 85H, Creatinine 4.9H, Estimat Glomerular Filtration Rate , Glucose Level 126H, Uric Acid 8.0H, Calcium Level 8.5, Phosphorus Level 5.7H, Magnesium Level 2.0, Total Bilirubin 0.4, Gamma Glutamyl Transpeptidase 18, Aspartate Amino Transf ( AST/SGOT) 18, Alanine Aminotransferase (ALT/SGPT) 22, Alkaline Phosphatase 110, Total Creatine Kinase 71, C-Reactive Protein, Quantitative 11.0H, Pro-B-Type Natriuretic Peptide 2733H, Total Protein 6.8, Albumin 2.5L, Globulin 4.3, Albumin/Globulin Ratio 0.6L Height (Feet): 5 Height (Inches): 4.00 Weight (Pounds): 113 EENT: other - on vent Cardiovascular: tachycardia Respiratory/Chest: decreased breath sounds Abdomen: soft Objective no change Kendrick Jimenez MD Jun 20, 2018 11:44
--- NOTE | 2018-06-20 11:47 | NUR ---
NURSE NOTES: Received Pt from Alicia Carter. Pt is awake, in no cardiorespiratory distress. Pt is orally vented ETT size 7.5, 23cm at lip line, AC 16, TV 400, FiO2 35%, Peep 5. Pt has NGT running Glucerna 1.5 at 55 mL/hr. F/C patent and draining yellow urine. Rectal tube patent and draining. Watery stool noted in rectal tube reservoir. Skin alterations noted. Pt on P200 mattress. MILY double-lumen PICC line noted running D5NS at 75 mL/Hr. 2nd lumen flushed and patent. Bed in lowest position. Side rails up x 3. Call light within reach. Will continue to monitor pt. Addendum: 06/20/18 at 1156 by Kristin Umana RN Wrong time entry. Received pt from Alicia Carter at 0716.
--- NOTE | 2018-06-20 12:00 | NUR ---
NURSE NOTES: Gastric residual 10cc. Pt is tolerating feeding. Flushed NGT with 266mL H20. Glucerna 1.5 continued at 55 mL/hr. Pt is in semi-lopes asleep, no distress noted. Bed in lowest position. Side rails up x 3. Call light within reach. Will continue to monitor pt.
--- NOTE | 2018-06-20 14:10 | GI Progress Note ---
Assessment/Plan Problems: (1) Severe malnutrition ICD Codes: E43 - Unspecified severe protein-calorie malnutrition SNOMED: 40584241 (2) Dementia ICD Codes: F03.90 - Unspecified dementia without behavioral disturbance SNOMED: 70379127 (3) Confused ICD Codes: R41.0 - Disorientation, unspecified SNOMED: 447789607 (4) Encounter for PEG (percutaneous endoscopic gastrostomy) ICD Codes: Z43.1 - Encounter for attention to gastrostomy SNOMED: 037007034, 523957972 (5) Failure to thrive SNOMED: 00684125 (6) Acute encephalopathy ICD Codes: G93.40 - Encephalopathy, unspecified SNOMED: 3098146 Status: unchanged Status Narrative Discussed with Dr. Acevedo. Assessment/Plan Assessment - Resp failure - NGT dependent - COPD - CHF - PNA - Anemia - Poor prognosis Recommendations - NGT feeds - Vent care - Elevated HOB - Monitor residuals - Abx - Pulmonary toilet - Await family decision re PEG -add Vanco -pending possible HD The patient was seen and examined at bedside and all new and available data was reviewed in the patients chart. I agree with the above findings, impression and plan. (Patient seen earlier today. Signature stamp does not reflect patient encounter time.). - Jacobo Acevedo MD Subjective Subjective Limited Objective Last 24 Hour Vital Signs Date Time Temp Pulse Resp B/P (MAP) Pulse Ox O2 Delivery O2 Flow Rate FiO2 06/20/18 13:11 90 16 35 06/20/18 13:00 78 16 129/52 (77) 100 06/20/18 12:11 88 16 100 Mechanical Ventilator 35 06/20/18 12:01 82 16 100 Mechanical Ventilator 35 06/20/18 12:00 75 06/20/18 12:00 Endotracheal Tube Endotracheal Tube 06/20/18 12:00 35 06/20/18 12:00 98.9 79 16 131/56 (81) 100 06/20/18 11:00 85 18 127/74 (91) 100 06/20/18 11:00 86 17 35 06/20/18 10:00 81 20 138/48 (78) 100 06/20/18 09:28 83 18 35 06/20/18 09:00 81 20 138/48 (78) 100 2/18/19 08:00 80 06/20/18 08:00 98.7 79 16 124/51 (75) 100 06/20/18 08:00 35 06/20/18 08:00 Endotracheal Tube Endotracheal Tube 06/20/18 07:36 81 16 100 Mechanical Ventilator 35 06/20/18 07:26 89 17 100 Mechanical Ventilator 40 06/20/18 07:23 83 16 35 06/20/18 07:00 92 23 133/54 (80) 100 06/20/18 06:00 92 23 132/48 (76) 100 06/20/18 05:01 97 17 35 06/20/18 05:00 101 22 127/51 (76) 100 06/20/18 04:00 92 06/20/18 04:00 40 06/20/18 04:00 Endotracheal Tube Endotracheal Tube 06/20/18 04:00 98.5 92 22 147/56 (86) 100 06/20/18 03:10 Mechanical Ventilator 35 06/20/18 03:10 Mechanical Ventilator 35 06/20/18 03:07 91 18 35 06/20/18 03:00 92 22 167/89 (115) 99 06/20/18 02:00 89 21 143/53 (83) 100 06/20/18 01:40 93 16 40 06/20/18 01:00 87 21 143/55 (84) 100 06/20/18 00:00 98.4 89 21 149/63 (91) 100 06/20/18 00:00 40 06/20/18 00:00 Endotracheal Tube Endotracheal Tube 06/20/18 00:00 90 06/19/18 23:30 79 20 100 Mechanical Ventilator 40 06/19/18 23:20 89 17 100 Mechanical Ventilator 40 06/19/18 23:00 90 21 146/56 (86) 100 06/19/18 22:36 89 17 40 06/19/18 22:00 89 21 130/74 (92) 100 06/19/18 21:23 88 21 40 06/19/18 21:00 89 21 162/61 (94) 100 06/19/18 20:00 Endotracheal Tube Endotracheal Tube 06/19/18 20:00 40 06/19/18 20:00 93 06/19/18 20:00 98.0 89 21 134/78 (96) 100 06/19/18 19:30 100 20 100 Mechanical Ventilator 40 06/19/18 19:20 99 20 100 Mechanical Ventilator 40 06/19/18 19:05 99 20 40 06/19/18 19:00 92 21 148/57 (87) 100 06/19/18 18:06 99.3 06/19/18 18:00 97 21 148/63 (91) 100 06/19/18 17:16 93 16 40 06/19/18 17:00 92 26 139/55 (83) 100 06/19/18 16:00 97 06/19/18 16:00 Endotracheal Tube Endotracheal Tube 06/19/18 16:00 40 06/19/18 16:00 99.8 94 17 139/55 (83) 100 06/19/18 15:32 100 20 100 Mechanical Ventilator 40 06/19/18 15:28 106 22 40 06/19/18 15:22 106 22 100 Mechanical Ventilator 40 06/19/18 15:00 90 18 135/56 (82) 100 Intake and Output 06/19/18 06/20/18 19:00 07:00 Intake Total 2377 ml 2152 ml Output Total 1045 ml 1280 ml Balance 1332 ml 872 ml Free Water 532 ml 532 ml IV Total 1185 ml 900 ml Tube Feeding 660 ml 660 ml Other 60 ml Output Urine Total 895 ml 1280 ml Stool Total 150 ml # Bowel Movements 2 100 Laboratory Tests Test 06/19/18 14:45 06/20/18 05:20 06/20/18 13:35 Random Vancomycin Level 25.3 ug/mL White Blood Count 10.7 K/UL (4.8-10.8) Red Blood Count 4.18 M/UL (4.20-5.40) L Hemoglobin 9.5 G/DL (12.0-16.0) L Hematocrit 30.5 % (37.0-47.0) L Mean Corpuscular Volume 73 FL (80-99) L Mean Corpuscular Hemoglobin 22.7 PG (27.0-31.0) L Mean Corpuscular Hemoglobin Concent 31.2 G/DL (32.0-36.0) L Red Cell Distribution Width 18.2 % (11.6-14.8) H Platelet Count 231 K/UL (150-450) Mean Platelet Volume 8.3 FL (6.5-10.1) Neutrophils (%) (Auto) 64.1 % (45.0-75.0) Lymphocytes (%) (Auto) 20.4 % (20.0-45.0) Monocytes (%) (Auto) 6.5 % (1.0-10.0) Eosinophils (%) (Auto) 7.2 % (0.0-3.0) H Basophils (%) (Auto) 1.7 % (0.0-2.0) Sodium Level 136 MMOL/L (136-145) Potassium Level 5.2 MMOL/L (3.5-5.1) H Chloride Level 101 MMOL/L (98-107) Carbon Dioxide Level 25 MMOL/L (21-32) Anion Gap 10 mmol/L (5-15) Blood Urea Nitrogen 85 mg/dL (7-18) H Creatinine 4.9 MG/DL (0.55-1.30) H Estimat Glomerular Filtration Rate mL/min (>60) Glucose Level 126 MG/DL (74-106) H Uric Acid 8.0 MG/DL (2.6-7.2) H Calcium Level 8.5 MG/DL (8.5-10.1) Phosphorus Level 5.7 MG/DL (2.5-4.9) H Magnesium Level 2.0 MG/DL (1.8-2.4) Total Bilirubin 0.4 MG/DL (0.2-1.0) Gamma Glutamyl Transpeptidase 18 U/L (5-85) Aspartate Amino Transf (AST/SGOT) 18 U/L (15-37) Alanine Aminotransferase (ALT/SGPT) 22 U/L (12-78) Alkaline Phosphatase 110 U/L (46-116) Total Creatine Kinase 71 U/L (26-308) C-Reactive Protein, Quantitative 11.0 mg/dL (0.00-0.90) H Pro-B-Type Natriuretic Peptide 2733 pg/mL (0-125) H Total Protein 6.8 G/DL (6.4-8.2) Albumin 2.5 G/DL (3.4-5.0) L Globulin 4.3 g/dL Albumin/Globulin Ratio 0.6 (1.0-2.7) L Arterial Blood pH 7.348 (7.350-7.450) Arterial Blood Partial Pressure CO2 42.4 mmHg (35.0-45.0) Arterial Blood Partial Pressure O2 75.5 mmHg (75.0-100.0) Arterial Blood HCO3 22.8 mmol/L (22.0-26.0) Arterial Blood Oxygen Saturation 95.1 % (95-100) Arterial Blood Base Excess -2.7 (-2-2) L David Test Positive Height (Feet): 5 Height (Inches): 4.00 Weight (Pounds): 113 General Appearance: WD/WN, no apparent distress, alert Cardiovascular: normal rate Respiratory/Chest: normal breath sounds, no respiratory distress Abdominal Exam: normal bowel sounds, non tender, soft Extremities: normal range of motion, non-tender Alber Rodriguez NP Jun 20, 2018 14:10
--- NOTE | 2018-06-20 14:42 | NUR ---
NURSE NOTES: Contacted Dr. De Souza with ABG results. Instructed to put in order for weaning determination. Contacted RT. Will continue to monitor Pt. Bed in lowest position. Side rails up x 3. Call light within reach.
--- NOTE | 2018-06-20 14:49 | Pulmonolgy Critical Care Note ---
Critical Care - Asmt/Plan Assessment/Plan: Problem List: 1. Acute on chronic hypercapnic respiratory failure -reintubated 06/17 2. R lung collapse, mucous plugging - resolved 3. Pulmonary edema 4. chronic obstructive asthma 5. Pneumonia 6. Hx afib 7. MRSA pna, recurrent fever and increased leukocytosis 8. ESBL E.coli pna 9. C.diff colitis Plan: -cont mechanical ventilatory support -weaning trials as tolerated -if does not appear to be extubateable soon would recommend tracheostomy placement -aggressive pulmonary hygiene with duonebs/mucomyst/suctioning q4 -chest PT R lung -repeat CXR -monitor volumes -monitor renal function -abx per ID Respiratory: CXR, ABG Cardiac: continue to monitor HR/BP Renal: F/U I&O Infectious Disease: continue antibiotics Neurologic: keep patient comfortable Time Spent (Minutes): 40 - cc Discussed with: nurses Critical Care - Objective Last 24 Hour Vital Signs Date Time Temp Pulse Resp B/P (MAP) Pulse Ox O2 Delivery O2 Flow Rate FiO2 06/20/18 14:00 78 22 135/73 (93) 100 06/20/18 13:11 90 16 35 06/20/18 13:00 78 16 129/52 (77) 100 06/20/18 12:11 88 16 100 Mechanical Ventilator 35 06/20/18 12:01 82 16 100 Mechanical Ventilator 35 06/20/18 12:00 75 06/20/18 12:00 Endotracheal Tube Endotracheal Tube 06/20/18 12:00 35 06/20/18 12:00 98.9 79 16 131/56 (81) 100 06/20/18 11:00 85 18 127/74 (91) 100 06/20/18 11:00 86 17 35 06/20/18 10:00 81 20 138/48 (78) 100 06/20/18 09:28 83 18 35 06/20/18 09:00 81 20 138/48 (78) 100 06/20/18 08:00 80 06/20/18 08:00 98.7 79 16 124/51 (75) 100 06/20/18 08:00 35 06/20/18 08:00 Endotracheal Tube Endotracheal Tube 06/20/18 07:36 81 16 100 Mechanical Ventilator 35 06/20/18 07:26 89 17 100 Mechanical Ventilator 40 06/20/18 07:23 83 16 35 06/20/18 07:00 92 23 133/54 (80) 100 06/20/18 06:00 92 23 132/48 (76) 100 06/20/18 05:01 97 17 35 06/20/18 05:00 101 22 127/51 (76) 100 06/20/18 04:00 92 06/20/18 04:00 40 06/20/18 04:00 Endotracheal Tube Endotracheal Tube 06/20/18 04:00 98.5 92 22 147/56 (86) 100 06/20/18 03:10 Mechanical Ventilator 35 06/20/18 03:10 Mechanical Ventilator 35 06/20/18 03:07 91 18 35 06/20/18 03:00 92 22 167/89 (115) 99 06/20/18 02:00 89 21 143/53 (83) 100 06/20/18 01:40 93 16 40 06/20/18 01:00 87 21 143/55 (84) 100 06/20/18 00:00 98.4 89 21 149/63 (91) 100 06/20/18 00:00 40 06/20/18 00:00 Endotracheal Tube Endotracheal Tube 06/20/18 00:00 90 06/19/18 23:30 79 20 100 Mechanical Ventilator 40 06/19/18 23:20 89 17 100 Mechanical Ventilator 40 06/19/18 23:00 90 21 146/56 (86) 100 06/19/18 22:36 89 17 40 06/19/18 22:00 89 21 130/74 (92) 100 06/19/18 21:23 88 21 40 06/19/18 21:00 89 21 162/61 (94) 100 06/19/18 20:00 Endotracheal Tube Endotracheal Tube 06/19/18 20:00 40 06/19/18 20:00 93 06/19/18 20:00 98.0 89 21 134/78 (96) 100 06/19/18 19:30 100 20 100 Mechanical Ventilator 40 06/19/18 19:20 99 20 100 Mechanical Ventilator 40 06/19/18 19:05 99 20 40 06/19/18 19:00 92 21 148/57 (87) 100 06/19/18 18:06 99.3 06/19/18 18:00 97 21 148/63 (91) 100 06/19/18 17:16 93 16 40 06/19/18 17:00 92 26 139/55 (83) 100 06/19/18 16:00 97 06/19/18 16:00 Endotracheal Tube Endotracheal Tube 06/19/18 16:00 40 06/19/18 16:00 99.8 94 17 139/55 (83) 100 06/19/18 15:32 100 20 100 Mechanical Ventilator 40 06/19/18 15:28 106 22 40 06/19/18 15:22 106 22 100 Mechanical Ventilator 40 06/19/18 15:00 90 18 135/56 (82) 100 Status: sedated Condition: improving Lungs: rales Heart: HR/BP stable Abdomen: soft, non-tender Extremities: no C/C/E Micro: Microbiology Date/Time Source Procedure Growth Status 06/17/18 17:30 Stool Clostridium difficile Toxin Assay - Final Complete Critical Care - Subjective ROS Limited/Unobtainable: Yes Interval Events: CXR improved after initial extubation wednesday. Minimal secretions again apparently. She has been agitated at times. Renal function has been an issues. C.diff positive. FI02: 35 Vent Support Breath Rate: 16 Vent Support Mode: AC Vent Tidal Volume: 400 Sputum Amount: Small PEEP: 5.0 PIP: 32 Tube Feeding Amount: 55 I&O: Intake and Output 06/19/18 06/20/18 19:00 07:00 Intake Total 2377 ml 2152 ml Output Total 1045 ml 1280 ml Balance 1332 ml 872 ml Free Water 532 ml 532 ml IV Total 1185 ml 900 ml Tube Feeding 660 ml 660 ml Other 60 ml Output Urine Total 895 ml 1280 ml Stool Total 150 ml # Bowel Movements 2 100 ET-Tube: 7.5 ET Position: 23 Varinder De Souza MD Jun 20, 2018 14:49
--- NOTE | 2018-06-20 15:00 | NUR ---
RESPIRATORY NOTE: Patient put on CPAP per MD ORDER with a pressure support of 8, FiO2:35%. Pt did not darrick weaning well, increased RR 35-40, low minute volume, low spontaneous VT. Patient put back on original settings.
--- NOTE | 2018-06-20 15:00 | NUR ---
NURSE NOTES: RT attempted weaning the pt off of ventilator. RT changed Vent settings to CPAP with PS of 8 for 1 minute. Pt appeared agitated with increase in RR and decreased TV. Pt did not tolerate weaning. RT changed setting back to AC 16 TV 400 FiO2 35% and PEEP 5. Will continue to monitor. Bed in lowest position. Side rails up x 3. Call light within reach.
--- NOTE | 2018-06-20 15:44 | NUR ---
RADIOLOGY DEPT CHEST X-RAY DONE.-P.DYE
--- NOTE | 2018-06-20 15:51 | Diagnostic Imaging Report ---
Indication: Dyspnea Comparison: 06/17/2018 A single view chest radiograph was obtained. Findings: Hazy opacity at the right lung base demonstrated. Interstitial edema and prominent vascularity noted. Heart is enlarged. Tubes and lines are stable. IMPRESSION: No change from the prior exam. CHF interstitial edema and right pleural effusion
--- NOTE | 2018-06-20 16:26 | NUR ---
NURSE NOTES Contacted Dr De Souza with CXR results. Awaiting call back. Pt is asleep at the moment. Gastric residual currently 10 mL. Continuing with NGT feeding at 55 mL/Hr. Bed in lowest position. Side rails up x 3. Call light within reach. Will continue to monitor pt.
[2018-06-20] MEDS: Ertapenem 0.5 GM in NS 55 ML IVPB SCH (17:52)
--- NOTE | 2018-06-20 18:20 | NUR ---
CASE MANAGEMENT: REVIEW SI: A-FIB . CAD . COPD . SEVERE MALNUTRITION T 99.6 HR 111 RR 22 BP 154/54 SAT 97% MECH VENT FIO2 35 H/H 9.5/30.5 K 5.2 BUN 85 CR 4.9 URIC ACID 8.0 IS: ERTAPENEM IV Q24HR VANCO HCl NGT QID AMIODARONE PO BID NGT FEEDING GLUCERNA 1.5 @55ML/HR ICU STATUS DCP: PATIENT IS FROM [facility]
--- NOTE | 2018-06-20 18:53 | NUR ---
NURSE NOTES: Pt asleep in semi lopes. No distress noted. Pt repositioned and cleaned. No gastric residuals noted at the moment. Flushed NGT with 266mL H20 per order. Performed oral care. Pt is stable. Bed in lowest position. Side rails up x 3. Call light within reach. Will continue to monitor.
--- NOTE | 2018-06-20 19:30 | NUR ---
NURSE NOTES: Report given to Francisco Palumbo RN. Informed Francisco to follow up with Dr. De Souza about recent CXR results. Pt is in stable condition. Bed in lowest position. Side rails up x 3. Call light within reach.
[2018-06-20] MEDS: Dyna-Hex 2% Top Sol 2oz TOPIC SCH (19:34)
--- NOTE | 2018-06-20 19:50 | NUR ---
NURSE NOTES: Patient open eyes, able to eye contact, anxious status, on ETT to vent, ac 16/tv 400/fio2 35%/peep 5, o2 saturation 98% noted, NGT to right nares, ongoing Glucerna 1.5 at 55ml/hr, residue 80ml outed, kept hob over 30 degree, abdomen soft, non tender, Rectal tube intact and patent, brown stool outed, F/C intact and patent, yellow urine outed, PICC line to right upper arm, intact and patent, ongoing D5 NS at 75ml/hr, on P200 bed, made lower bed position, provided call light within reach, will continue to monitor.
--- NOTE | 2018-06-20 19:56 | Cardiology Progress Note ---
Assessment/Plan Assessment/Plan COPD, congestive heart failure, atrial fibrillation sinus tachy agitation right lung collapse? anemia pleural effusion respirator failure tachy acute on chronic renal failure tele sinus with pvc vent suppor t abx pulm rxn bp is fine blood cx previoously neg beta evelyn iv or via ngt prn increase amiod to 200 mg bid for a few days may be as of wed will switch back d/w rn hemodynamically stable at the moment Subjective ROS Limited/Unobtainable: Yes Subjective in icu on vent in isolation Objective Last 24 Hour Vital Signs Date Time Temp Pulse Resp B/P (MAP) Pulse Ox O2 Delivery O2 Flow Rate FiO2 06/20/18 19:28 91 16 100 Mechanical Ventilator 35 06/20/18 19:18 96 17 35 06/20/18 19:18 96 17 100 Mechanical Ventilator 35 06/20/18 18:26 98.8 06/20/18 18:00 96 18 146/54 (84) 97 06/20/18 17:00 103 19 154/54 (87) 97 06/20/18 16:40 111 22 35 06/20/18 16:00 Endotracheal Tube Endotracheal Tube 06/20/18 16:00 89 06/20/18 16:00 35 06/20/18 16:00 99.6 93 16 147/52 (83) 100 06/20/18 15:45 91 16 100 Mechanical Ventilator 35 06/20/18 15:30 94 22 97 Mechanical Ventilator 35 06/20/18 15:10 85 18 35 06/20/18 15:00 95 24 163/61 (95) 99 06/20/18 15:00 99 06/20/18 14:00 78 22 135/73 (93) 100 06/20/18 13:11 90 16 35 06/20/18 13:00 78 16 129/52 (77) 100 06/20/18 12:11 88 16 100 Mechanical Ventilator 35 06/20/18 12:01 82 16 100 Mechanical Ventilator 35 06/20/18 12:00 75 06/20/18 12:00 Endotracheal Tube Endotracheal Tube 06/20/18 12:00 35 06/20/18 12:00 98.9 79 16 131/56 (81) 100 06/20/18 11:00 85 18 127/74 (91) 100 06/20/18 11:00 86 17 35 06/20/18 10:00 81 20 138/48 (78) 100 06/20/18 09:28 83 18 35 06/20/18 09:00 81 20 138/48 (78) 100 06/20/18 08:00 80 06/20/18 08:00 98.7 79 16 124/51 (75) 100 06/20/18 08:00 35 06/20/18 08:00 Endotracheal Tube Endotracheal Tube 06/20/18 07:36 81 16 100 Mechanical Ventilator 35 06/20/18 07:26 89 17 100 Mechanical Ventilator 40 06/20/18 07:23 83 16 35 06/20/18 07:00 92 23 133/54 (80) 100 06/20/18 06:00 92 23 132/48 (76) 100 06/20/18 05:01 97 17 35 06/20/18 05:00 101 22 127/51 (76) 100 06/20/18 04:00 92 06/20/18 04:00 40 06/20/18 04:00 Endotracheal Tube Endotracheal Tube 06/20/18 04:00 98.5 92 22 147/56 (86) 100 06/20/18 03:10 Mechanical Ventilator 35 06/20/18 03:10 Mechanical Ventilator 35 06/20/18 03:07 91 18 35 06/20/18 03:00 92 22 167/89 (115) 99 06/20/18 02:00 89 21 143/53 (83) 100 06/20/18 01:40 93 16 40 06/20/18 01:00 87 21 143/55 (84) 100 06/20/18 00:00 98.4 89 21 149/63 (91) 100 06/20/18 00:00 40 06/20/18 00:00 Endotracheal Tube Endotracheal Tube 06/20/18 00:00 90 06/19/18 23:30 79 20 100 Mechanical Ventilator 40 06/19/18 23:20 89 17 100 Mechanical Ventilator 40 06/19/18 23:00 90 21 146/56 (86) 100 06/19/18 22:36 89 17 40 06/19/18 22:00 89 21 130/74 (92) 100 06/19/18 21:23 88 21 40 06/19/18 21:00 89 21 162/61 (94) 100 06/19/18 20:00 Endotracheal Tube Endotracheal Tube 06/19/18 20:00 40 06/19/18 20:00 93 06/19/18 20:00 98.0 89 21 134/78 (96) 100 General Appearance: no apparent distress, alert, on vent, patient on isolation Neck: no JVD Cardiovascular: normal rate Respiratory/Chest: lungs clear Abdomen: normal bowel sounds, non tender, soft Extremities: trace edema Intake and Output 06/19/18 06/20/18 18:59 06:59 Intake Total 2377 ml 2152 ml Output Total 845 ml 1440 ml Balance 1532 ml 712 ml Free Water 532 ml 532 ml IV Total 1185 ml 900 ml Tube Feeding 660 ml 660 ml Other 60 ml Output Urine Total 845 ml 1290 ml Stool Total 150 ml # Bowel Movements 2 100 Laboratory Tests Test 06/20/18 05:20 06/20/18 13:35 White Blood Count 10.7 K/UL (4.8-10.8) Red Blood Count 4.18 M/UL (4.20-5.40) L Hemoglobin 9.5 G/DL (12.0-16.0) L Hematocrit 30.5 % (37.0-47.0) L Mean Corpuscular Volume 73 FL (80-99) L Mean Corpuscular Hemoglobin 22.7 PG (27.0-31.0) L Mean Corpuscular Hemoglobin Concent 31.2 G/DL (32.0-36.0) L Red Cell Distribution Width 18.2 % (11.6-14.8) H Platelet Count 231 K/UL (150-450) Mean Platelet Volume 8.3 FL (6.5-10.1) Neutrophils (%) (Auto) 64.1 % (45.0-75.0) Lymphocytes (%) (Auto) 20.4 % (20.0-45.0) Monocytes (%) (Auto) 6.5 % (1.0-10.0) Eosinophils (%) (Auto) 7.2 % (0.0-3.0) H Basophils (%) (Auto) 1.7 % (0.0-2.0) Sodium Level 136 MMOL/L (136-145) Potassium Level 5.2 MMOL/L (3.5-5.1) H Chloride Level 101 MMOL/L (98-107) Carbon Dioxide Level 25 MMOL/L (21-32) Anion Gap 10 mmol/L (5-15) Blood Urea Nitrogen 85 mg/dL (7-18) H Creatinine 4.9 MG/DL (0.55-1.30) H Estimat Glomerular Filtration Rate mL/min (>60) Glucose Level 126 MG/DL (74-106) H Uric Acid 8.0 MG/DL (2.6-7.2) H Calcium Level 8.5 MG/DL (8.5-10.1) Phosphorus Level 5.7 MG/DL (2.5-4.9) H Magnesium Level 2.0 MG/DL (1.8-2.4) Total Bilirubin 0.4 MG/DL (0.2-1.0) Gamma Glutamyl Transpeptidase 18 U/L (5-85) Aspartate Amino Transf (AST/SGOT) 18 U/L (15-37) Alanine Aminotransferase (ALT/SGPT) 22 U/L (12-78) Alkaline Phosphatase 110 U/L (46-116) Total Creatine Kinase 71 U/L (26-308) C-Reactive Protein, Quantitative 11.0 mg/dL (0.00-0.90) H Pro-B-Type Natriuretic Peptide 2733 pg/mL (0-125) H Total Protein 6.8 G/DL (6.4-8.2) Albumin 2.5 G/DL (3.4-5.0) L Globulin 4.3 g/dL Albumin/Globulin Ratio 0.6 (1.0-2.7) L Arterial Blood pH 7.348 (7.350-7.450) Arterial Blood Partial Pressure CO2 42.4 mmHg (35.0-45.0) Arterial Blood Partial Pressure O2 75.5 mmHg (75.0-100.0) Arterial Blood HCO3 22.8 mmol/L (22.0-26.0) Arterial Blood Oxygen Saturation 95.1 % (95-100) Arterial Blood Base Excess -2.7 (-2-2) L David Test Positive Geoffrey Sandhu MD Jun 20, 2018 19:56
--- NOTE | 2018-06-20 20:05 | NUR ---
NURSE NOTES: Repositioned, oral care was done. Seen the patient by Dr. HERNANDEZ at this time.
--- NOTE | 2018-06-20 20:14 | General Progress Note ---
Assessment/Plan Status: progressing Assessment/Plan This is an 87-year-old female admitted with chronic obstructive pulmonary disease exacerbation, right lower lobe infiltrate/pneumonia with altered mental status and acute kidney injury. The patient will be admitted to [facility] with the following medical problems. 1. Chronic obstructive pulmonary disease exacerbation and pneumonia. The patient has been seen by Pulmonary. Infectious Disease has been consulted, pancultured. IV antibiotics per ID. Continue with BiPAP and suction p.r.n. Transition to Venturi-mask when stable. 2. Acute kidney injury. We will monitor I's and O's, gentle intravenous fluids. Repeat a BMP in a.m. Consider Nephrology consult. 3. History of chronic atrial fibrillation. Continue with amiodarone. The patient is in sinus rhythm at this time. 4. History of hypertension. Continue with amlodipine and hold for systolic blood pressure less than 110. 5. Altered mental status, most likely from above conditions. We will keep n.p.o. except for medications and start IV fluids. 6. DVT prophylaxis with heparin subcutaneous and SCDs. 7. The patient is Full Code per policy. We will discuss with the family. 8. hypokalmia 9. Anemia 10. CHf acute on chronic 11. leucocytosis 12. ARF? ATN 13. C dif positive Plan: - now intubated in icu - continue respiratory support - consider repeat Lasix today - aggressive pulmonary suction - HD on hold as patient putting out better urine and createnine is improving - antibiotics per ID - on oral vanco - am labs - weaning off vent per pulmonary - Gi prophylaxis with protonix iv 40 mg daily discussed with nurse Subjective Date patient seen: Jun 20, 2018 Allergies: Coded Allergies: Mushroom (Verified Allergy, Severe, 05/28/18) MORPHINE (Unverified Allergy, Intermediate, Itching, 01/04/15) PENICILLINS (Unverified Allergy, Intermediate, Hives, 01/04/15) CELECOXIB (Verified Allergy, Mild, 01/15/09) Subjective patient is now reintubated, in renal failure, HD on hold as making better urine today, C dif positive on ngt vanco Objective Last 24 Hour Vital Signs Date Time Temp Pulse Resp B/P (MAP) Pulse Ox O2 Delivery O2 Flow Rate FiO2 06/20/18 19:28 91 16 100 Mechanical Ventilator 35 06/20/18 19:18 96 17 35 06/20/18 19:18 96 17 100 Mechanical Ventilator 35 06/20/18 18:26 98.8 06/20/18 18:00 96 18 146/54 (84) 97 06/20/18 17:00 103 19 154/54 (87) 97 06/20/18 16:40 111 22 35 06/20/18 16:00 Endotracheal Tube Endotracheal Tube 06/20/18 16:00 89 06/20/18 16:00 35 06/20/18 16:00 99.6 93 16 147/52 (83) 100 06/20/18 15:45 91 16 100 Mechanical Ventilator 35 06/20/18 15:30 94 22 97 Mechanical Ventilator 35 06/20/18 15:10 85 18 35 06/20/18 15:00 95 24 163/61 (95) 99 06/20/18 15:00 99 06/20/18 14:00 78 22 135/73 (93) 100 06/20/18 13:11 90 16 35 06/20/18 13:00 78 16 129/52 (77) 100 06/20/18 12:11 88 16 100 Mechanical Ventilator 35 06/20/18 12:01 82 16 100 Mechanical Ventilator 35 06/20/18 12:00 75 06/20/18 12:00 Endotracheal Tube Endotracheal Tube 06/20/18 12:00 35 06/20/18 12:00 98.9 79 16 131/56 (81) 100 06/20/18 11:00 85 18 127/74 (91) 100 06/20/18 11:00 86 17 35 06/20/18 10:00 81 20 138/48 (78) 100 06/20/18 09:28 83 18 35 06/20/18 09:00 81 20 138/48 (78) 100 06/20/18 08:00 80 06/20/18 08:00 98.7 79 16 124/51 (75) 100 06/20/18 08:00 35 06/20/18 08:00 Endotracheal Tube Endotracheal Tube 06/20/18 07:36 81 16 100 Mechanical Ventilator 35 06/20/18 07:26 89 17 100 Mechanical Ventilator 40 06/20/18 07:23 83 16 35 06/20/18 07:00 92 23 133/54 (80) 100 06/20/18 06:00 92 23 132/48 (76) 100 06/20/18 05:01 97 17 35 06/20/18 05:00 101 22 127/51 (76) 100 06/20/18 04:00 92 06/20/18 04:00 40 06/20/18 04:00 Endotracheal Tube Endotracheal Tube 06/20/18 04:00 98.5 92 22 147/56 (86) 100 06/20/18 03:10 Mechanical Ventilator 35 06/20/18 03:10 Mechanical Ventilator 35 06/20/18 03:07 91 18 35 06/20/18 03:00 92 22 167/89 (115) 99 06/20/18 02:00 89 21 143/53 (83) 100 06/20/18 01:40 93 16 40 06/20/18 01:00 87 21 143/55 (84) 100 06/20/18 00:00 98.4 89 21 149/63 (91) 100 06/20/18 00:00 40 06/20/18 00:00 Endotracheal Tube Endotracheal Tube 06/20/18 00:00 90 06/19/18 23:30 79 20 100 Mechanical Ventilator 40 06/19/18 23:20 89 17 100 Mechanical Ventilator 40 06/19/18 23:00 90 21 146/56 (86) 100 06/19/18 22:36 89 17 40 06/19/18 22:00 89 21 130/74 (92) 100 06/19/18 21:23 88 21 40 06/19/18 21:00 89 21 162/61 (94) 100 Intake and Output 06/19/18 06/20/18 18:59 06:59 Intake Total 2377 ml 2152 ml Output Total 845 ml 1440 ml Balance 1532 ml 712 ml Free Water 532 ml 532 ml IV Total 1185 ml 900 ml Tube Feeding 660 ml 660 ml Other 60 ml Output Urine Total 845 ml 1290 ml Stool Total 150 ml # Bowel Movements 2 100 Laboratory Tests 06/20/18 05:20: White Blood Count 10.7, Red Blood Count 4.18L, Hemoglobin 9.5L, Hematocrit 30.5L , Mean Corpuscular Volume 73L, Mean Corpuscular Hemoglobin 22.7L, Mean Corpuscular Hemoglobin Concent 31.2L, Red Cell Distribution Width 18.2H, Platelet Count 231, Mean Platelet Volume 8.3, Neutrophils (%) (Auto) 64.1, Lymphocytes (%) (Auto) 20.4, Monocytes (%) (Auto) 6.5, Eosinophils (%) (Auto) 7.2H, Basophils (%) (Auto) 1.7, Sodium Level 136, Potassium Level 5.2H, Chloride Level 101, Carbon Dioxide Level 25, Anion Gap 10, Blood Urea Nitrogen 85H, Creatinine 4.9H, Estimat Glomerular Filtration Rate , Glucose Level 126H, Uric Acid 8.0H, Calcium Level 8.5, Phosphorus Level 5.7H, Magnesium Level 2.0, Total Bilirubin 0.4, Gamma Glutamyl Transpeptidase 18, Aspartate Amino Transf ( AST/SGOT) 18, Alanine Aminotransferase (ALT/SGPT) 22, Alkaline Phosphatase 110, Total Creatine Kinase 71, C-Reactive Protein, Quantitative 11.0H, Pro-B-Type Natriuretic Peptide 2733H, Total Protein 6.8, Albumin 2.5L, Globulin 4.3, Albumin/Globulin Ratio 0.6L 06/20/18 13:35: Arterial Blood pH 7.348L, Arterial Blood Partial Pressure CO2 42.4, Arterial Blood Partial Pressure O2 75.5, Arterial Blood HCO3 22.8, Arterial Blood Oxygen Saturation 95.1, Arterial Blood Base Excess -2.7L, David Test Positive Height (Feet): 5 Height (Inches): 4.00 Weight (Pounds): 113 General Appearance: no apparent distress, alert EENT: PERRL/EOMI, pharynx normal Neck: non-tender, supple Cardiovascular: normal rate, regular rhythm, no gallop/murmur, no JVD Respiratory/Chest: decreased breath sounds Abdomen: non tender, soft, no mass Extremities: non-tender, normal inspection, no calf tenderness Neurologic: alert Skin: warm/dry Lymphatic: normal anterior cervical (L), normal anterior cervical (R), normal posterior cervical (L), normal posterior cervical (R), normal submandibular (L) , normal submandibular (R), normal supraclavicular (L), normal supraclavicular ( R), normal axillary (L), normal axillary (R), normal inguinal (L), normal inguinal (R), normal other Cruz Valderrama MD Jun 20, 2018 20:14
[2018-06-20] MEDS ORDERED: NS 275ml ONE ×3 (20:16→20:38)
[2018-06-20] MEDS ORDERED: Tubing IV Secondary IV ONE ×2 (20:16→20:33)
[2018-06-20] MEDS ORDERED: D5 1/2NS 1000ml IV ONE ×2 (20:33→20:38)
[2018-06-20] MEDS: Miralax 17gm pkt ORAL SCH (20:35)
[2018-06-20] MEDS: Pantoprazole Inj IVP SCH (20:36)
--- NOTE | 2018-06-20 21:00 | NUR ---
NURSE NOTES: Informed RT regarding Dr. CHRISTIANSEN'S order, let the RT knew that.
--- NOTE | 2018-06-20 21:42 | General Progress Note ---
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 Subjective Allergies: Coded Allergies: Mushroom (Verified Allergy, Severe, 05/28/18) MORPHINE (Unverified Allergy, Intermediate, Itching, 01/04/15) PENICILLINS (Unverified Allergy, Intermediate, Hives, 01/04/15) CELECOXIB (Verified Allergy, Mild, 01/15/09) Subjective no changes confused agitated Objective Last 24 Hour Vital Signs Date Time Temp Pulse Resp B/P (MAP) Pulse Ox O2 Delivery O2 Flow Rate FiO2 06/20/18 21:30 99 18 35 06/20/18 19:28 91 16 100 Mechanical Ventilator 35 06/20/18 19:18 96 17 35 06/20/18 19:18 96 17 100 Mechanical Ventilator 35 06/20/18 18:26 98.8 06/20/18 18:00 96 18 146/54 (84) 97 06/20/18 17:00 103 19 154/54 (87) 97 06/20/18 16:40 111 22 35 06/20/18 16:00 Endotracheal Tube Endotracheal Tube 06/20/18 16:00 89 06/20/18 16:00 35 06/20/18 16:00 99.6 93 16 147/52 (83) 100 06/20/18 15:45 91 16 100 Mechanical Ventilator 35 06/20/18 15:30 94 22 97 Mechanical Ventilator 35 06/20/18 15:10 85 18 35 06/20/18 15:00 95 24 163/61 (95) 99 06/20/18 15:00 99 06/20/18 14:00 78 22 135/73 (93) 100 06/20/18 13:11 90 16 35 06/20/18 13:00 78 16 129/52 (77) 100 06/20/18 12:11 88 16 100 Mechanical Ventilator 35 06/20/18 12:01 82 16 100 Mechanical Ventilator 35 06/20/18 12:00 75 06/20/18 12:00 Endotracheal Tube Endotracheal Tube 06/20/18 12:00 35 06/20/18 12:00 98.9 79 16 131/56 (81) 100 06/20/18 11:00 85 18 127/74 (91) 100 06/20/18 11:00 86 17 35 06/20/18 10:00 81 20 138/48 (78) 100 06/20/18 09:28 83 18 35 06/20/18 09:00 81 20 138/48 (78) 100 06/20/18 08:00 80 06/20/18 08:00 98.7 79 16 124/51 (75) 100 06/20/18 08:00 35 06/20/18 08:00 Endotracheal Tube Endotracheal Tube 06/20/18 07:36 81 16 100 Mechanical Ventilator 35 06/20/18 07:26 89 17 100 Mechanical Ventilator 40 06/20/18 07:23 83 16 35 06/20/18 07:00 92 23 133/54 (80) 100 06/20/18 06:00 92 23 132/48 (76) 100 06/20/18 05:01 97 17 35 06/20/18 05:00 101 22 127/51 (76) 100 06/20/18 04:00 92 06/20/18 04:00 40 06/20/18 04:00 Endotracheal Tube Endotracheal Tube 06/20/18 04:00 98.5 92 22 147/56 (86) 100 06/20/18 03:10 Mechanical Ventilator 35 06/20/18 03:10 Mechanical Ventilator 35 06/20/18 03:07 91 18 35 06/20/18 03:00 92 22 167/89 (115) 99 06/20/18 02:00 89 21 143/53 (83) 100 06/20/18 01:40 93 16 40 06/20/18 01:00 87 21 143/55 (84) 100 06/20/18 00:00 98.4 89 21 149/63 (91) 100 06/20/18 00:00 40 06/20/18 00:00 Endotracheal Tube Endotracheal Tube 06/20/18 00:00 90 06/19/18 23:30 79 20 100 Mechanical Ventilator 40 06/19/18 23:20 89 17 100 Mechanical Ventilator 40 06/19/18 23:00 90 21 146/56 (86) 100 06/19/18 22:36 89 17 40 06/19/18 22:00 89 21 130/74 (92) 100 Intake and Output 06/19/18 06/20/18 18:59 06:59 Intake Total 2377 ml 2152 ml Output Total 845 ml 1440 ml Balance 1532 ml 712 ml Free Water 532 ml 532 ml IV Total 1185 ml 900 ml Tube Feeding 660 ml 660 ml Other 60 ml Output Urine Total 845 ml 1290 ml Stool Total 150 ml # Bowel Movements 2 100 Laboratory Tests 06/20/18 05:20: White Blood Count 10.7, Red Blood Count 4.18L, Hemoglobin 9.5L, Hematocrit 30.5L , Mean Corpuscular Volume 73L, Mean Corpuscular Hemoglobin 22.7L, Mean Corpuscular Hemoglobin Concent 31.2L, Red Cell Distribution Width 18.2H, Platelet Count 231, Mean Platelet Volume 8.3, Neutrophils (%) (Auto) 64.1, Lymphocytes (%) (Auto) 20.4, Monocytes (%) (Auto) 6.5, Eosinophils (%) (Auto) 7.2H, Basophils (%) (Auto) 1.7, Sodium Level 136, Potassium Level 5.2H, Chloride Level 101, Carbon Dioxide Level 25, Anion Gap 10, Blood Urea Nitrogen 85H, Creatinine 4.9H, Estimat Glomerular Filtration Rate , Glucose Level 126H, Uric Acid 8.0H, Calcium Level 8.5, Phosphorus Level 5.7H, Magnesium Level 2.0, Total Bilirubin 0.4, Gamma Glutamyl Transpeptidase 18, Aspartate Amino Transf ( AST/SGOT) 18, Alanine Aminotransferase (ALT/SGPT) 22, Alkaline Phosphatase 110, Total Creatine Kinase 71, C-Reactive Protein, Quantitative 11.0H, Pro-B-Type Natriuretic Peptide 2733H, Total Protein 6.8, Albumin 2.5L, Globulin 4.3, Albumin/Globulin Ratio 0.6L 06/20/18 13:35: Arterial Blood pH 7.348L, Arterial Blood Partial Pressure CO2 42.4, Arterial Blood Partial Pressure O2 75.5, Arterial Blood HCO3 22.8, Arterial Blood Oxygen Saturation 95.1, Arterial Blood Base Excess -2.7L, David Test Positive Height (Feet): 5 Height (Inches): 4.00 Weight (Pounds): 113 General Appearance: lethargic, confused, agitated Liz Lo MD Jun 20, 2018 21:41
--- NOTE | 2018-06-20 22:05 | NUR ---
NURSE NOTES: Repositioned, oral care was done.
[2018-06-21] VITALS (24 sets, daily range): BP systolic 111–180; BP diastolic 40–94
--- NOTE | 2018-06-21 01:45 | NUR ---
NURSE NOTES: Patient calm, asleep status, will continue plan of care.
[2018-06-21] MEDS: Acetylcysteine 20% Soln 4ml HHN SCH ×6 (03:00→23:31)
[2018-06-21] MEDS: Albuterol/Ipratropium 3ml neb HHN PRN ×4 (03:01→23:31)
--- NOTE | 2018-06-21 04:03 | NUR ---
NURSE NOTES: Patient open eyes, communicated with head gesture, wanted pain med that given Tylenol 650mg via NGT as prn for pain, will continue to monitor.
[2018-06-21] MEDS: D5NS 1,000 ML IV SCH (05:05)
--- NOTE | 2018-06-21 05:20 | NUR ---
NURSE NOTES: Morning care and oral care was done, no resistance to care at this time.
[2018-06-21 05:38] LABS: BASOPHILS % (AUTO) 0.8 % (0.0-2.0); EOSINOPHILS % (AUTO) 6.8 % (0.0-3.0); HEMOGLOBIN 8.7 G/DL (12.0-16.0); LYMPHOCYTES % (AUTO) 18.4 % (20.0-45.0); MEAN CORPUSCULAR VOLUME 73 FL (80-99); MONOCYTES % (AUTO) 7.3 % (1.0-10.0); NEUTROPHILS % (AUTO) 66.7 % (45.0-75.0); PLATELET COUNT 242 K/UL (150-450); RED BLOOD COUNT 3.82 M/UL (4.20-5.40); RED CELL DISTRIBUTION WIDTH 18.6 % (11.6-14.8); WHITE BLOOD COUNT 10.8 K/UL (4.8-10.8)
[2018-06-21 06:14] LABS: ALANINE AMINOTRANSFERASE 18 U/L (12-78); ALBUMIN 2.5 G/DL (3.4-5.0); ALBUMIN/GLOBULIN RATIO 0.6 (1.0-2.7); ALKALINE PHOSPHATASE 111 U/L (46-116); ANION GAP 8 mmol/L (5-15); ASPARTATE AMINO TRANSFERASE 20 U/L (15-37); BILIRUBIN,TOTAL 0.2 MG/DL (0.2-1.0); BLOOD UREA NITROGEN 84 mg/dL (7-18); CALCIUM 8.1 MG/DL (8.5-10.1); CARBON DIOXIDE 26 MMOL/L (21-32); CHLORIDE 103 MMOL/L (98-107); CREATININE 4.5 MG/DL (0.55-1.30); POTASSIUM 5.3 MMOL/L (3.5-5.1); SODIUM 137 MMOL/L (136-145)
--- NOTE | 2018-06-21 06:27 | NUR ---
NURSE NOTES: Patient calm, asleep status, no acute distress at this time.
--- NOTE | 2018-06-21 07:00 | NUR ---
Received Patient on Vent settings ACVC RR 16, VT 400, FIO2 35%, PEEP +5. Patient intubated with 7.5 ETT at 23cm at the lip, secured with anchorfast. SX thick white frothy secretions PRN. Bilateral rhonchi heard throughout both lung simpson. Patient currently sleeping. Will continue to monitor throughout the day.
--- NOTE | 2018-06-21 07:15 | NUR ---
HAND-OFF: Report given to MARGY ARNOLD.
[2018-06-21 07:19] LABS: PHOSPHORUS 4.9 MG/DL (2.5-4.9)
--- NOTE | 2018-06-21 07:30 | NUR ---
NURSE NOTES: Received from Francisco Palumbo RN. Patient observed to be awake and alert. Patient appears at times very restless and confused. Patient opens her eyes spontaneously, tracks with her eyes, follows some commands and does not appear in any acute distress. Patient is being monitored on the cardiac care unit nurse VS 147/63, HR 96, RR 21 SPO2 97%. Patient is mechanically ventilated with 7.5 ETT 23 at the lipline with vent settings AC 16, TV 400, FIO2 35% +5. Upon auscultation, patient has clear lung sounds with diminished at the bases. Oral care was performed. Belly sounds are hypoactive in all four quadrants. Patient has a rectal tube draining liquid brown stool to gravity. Patient has an NGT in the R Nares running Glucerna 1.5 at 55 ml/hr which is goal. Residual was checked and only 5 ml was pulled and a 100 ml flush was given. Patient has Sinclair catheter draining straw colored urine to gravity in large amounts. Patient has a MILY picc running D5NS at 75 ml running. PICC is asymptomatic and patent. Patient is very impulsive pulling at lines and ETT. BL soft wrist restraints are placed. Pulses are palpable and skin is intact. Safety measures are in place with bed locked in the lowest position with HOB elevated and side rails up x 3. Will continue to monitor and follow plan of care
--- NOTE | 2018-06-21 08:52 | NUR ---
RD ASSESSMENT & RECOMMENDATIONS SEE CARE ACTIVITY FOR COMPLETE ASSESSMENT DAILY ESTIMATED NEEDS: Needs based on Pulmonary, ARF (NO HD), Critical care/ 54kg 22-28 kcals/kg 6072-5174 total kcals 0.8-1.1 g protein/kg 43-59 g total protein 25-30 mL/kg 0694-6624 total fluid mLs NUTRITION DIAGNOSIS: * Swallowing difficulty R/T dysphagia, respiratory status as evidenced by s/p intubation, now reintubated, ICU status, NGT feeds restarted. * Altered nutrition related lab values R/T clinical condition, prediabetes, ARF as evidenced by elev Na (149-> now wnl), elev BUN/creat (84/4.5), A1C=5.9, elev BG of 201 upon adm -> 131 improved, elev K (5.3) trend up. CURRENT TF:Glucerna 1.2 @ 55ml/hr x 24 hrs PO DIET RECOMMENDATIONS: REGISTERED NURSE SUPERVISOR evaluation when medically appropriate, s/p extubation ENTERAL NUTRITION RECOMMENDATIONS: TF CHANGE-> Nepro @ 30ml/hr x 24 hrs to provide 720ml, 1296kcal, 58g prot, 523ml free water * Rec TF CHANGE to Nepro- worsening renal fxn, elev K, episode of elev phos * HOB over 30 degrees/ water flush per MD. ADDITIONAL RECOMMENDATIONS: * CALIBRATED bedscale wt for accurate CBW- w/ added SPR mattress+ pump * Monitor lytes and renal fxn closely- worsening + episodes elev K and phos * Monitor BGs, need for SSI/hypoglycemic agents * Monitor for HD needs, need to increase est kcal/prot needs . . .
--- NOTE | 2018-06-21 09:06 | NUR ---
Placed Patient on SPON PS +8 PEEP +5. Patient VT decrease to less than 150 within 3 seconds. RR increased to >45. Placed back on AVCV.
--- NOTE | 2018-06-21 09:10 | NUR ---
RADIOLOGY DEPT CHEST X-RAY DONE.-P.DYE
--- NOTE | 2018-06-21 09:44 | Diagnostic Imaging Report ---
Indication: Dyspnea Technique: One view of the chest Comparison: 06/20/2018 Findings: Hazy right mid and lower lung opacity appears slightly increased. There is increased retrocardiac opacity Generalized interstitial congestion persists. The heart remains enlarged. Stable satisfactory tube and line positions. Impression: Slightly increased right lung opacity, suspect increasing pleural fluid. Increased retrocardiac consolidation Other stable findings as described
--- NOTE | 2018-06-21 10:00 | NUR ---
NURSE NOTES: Dr De Souza assessed patient bedside. Patient's maintenance fluids were d/c'd. MD called and spoke to family regarding plan. Will carry out MD plan of care. Will continue to monitor.
[2018-06-21] MEDS: Amiodarone 200mg tab ORAL SCH ×2 (10:02→18:13)
[2018-06-21] MEDS: Vancomycin oral 125mg/2.5ml NG SCH ×4 (10:05→20:25)
[2018-06-21] MEDS: Pantoprazole Inj IVP SCH (10:05)
[2018-06-21] MEDS: Heparin 5000 units/ml inj SUBQ SCH ×2 (10:10→20:27)
--- NOTE | 2018-06-21 11:09 | Infectious Diseases Prog Note ---
Assessment/Plan Assessment/Plan 87 yo feamle with PMHx of COPD, HTN, and A.fib sent to the ED from her nuring home for SOB. Sepsis;improving - Likely PNA 06/21 CXR: Slightly increased right lung opacity, suspect increasing pleural fluid.Increased retrocardiac consolidation 06/17 CXR: Increasing right lung opacity, likely representing decreasing pleural fluid but may also represent increasing parenchymal consolidation 06/15 CXR: Increasing opacification right hemithorax, likely reflecting increasing pleural fluid but may also reflect increasing pulmonary parenchymal consolidation 06/14 CXR: Diffuse right lung hazy opacity appears similar to the prior exam. 06/12 CXR: : Hazy opacification of the right hemithorax, likely reflecting pleural fluid, is unchanged. 05/28/18 CXR with atalectasis vs consolidation in the right side. 06/01/18 CXR - Extensive right hemithorax opacification UA (-) sputum cx 06/15: MRSA (likely a colonizer at this point), ESBL E.coli Sputum Cx 05/28/18 - MRSA (Inf Neg) Urine legionella (-) Acute respiratory failure s/p intubation 06/16 Cdiff colitis -06/19 Cdif toxin a/b + R lung collapse: -06/16 CXR: Complete opacification of the right hemithorax. Probably due to complete atelectasis of the right lung, with evidence of abrupt occlusion of the rightmainstem bronchus. Given findings on prior chest radiographs, there is probablysignificant component of pleural effusion as well. Positive blood Cx - Likely contaminant BCx 05/28/18 - CoNS BCX 05/30/18 - NGTD Leukocytosis , SP Fever, improving COPD CAD A. fib PLAN - Continue Ertapenem #2 (abx d#6/7-10) for ESBL Ecoli PNA -Continue PO Vancomycin #3/10 for Cdiff -06/20 SP Meropenem #5 -06/17 SP IV Vancomycin #21 -06/16 SP Cefepime #20 - Monitor CBC and Temps -f/u cx We will continue to follow Ms. Nowak during this hospitalization. Subjective Allergies: Coded Allergies: Mushroom (Verified Allergy, Severe, 05/28/18) MORPHINE (Unverified Allergy, Intermediate, Itching, 01/04/15) PENICILLINS (Unverified Allergy, Intermediate, Hives, 01/04/15) CELECOXIB (Verified Allergy, Mild, 01/15/09) Subjective afebrile in ~48hrs no leukocytosis remains intubated bcx neg Objective Vital Signs Last 24 Hour Vital Signs Date Time Temp Pulse Resp B/P (MAP) Pulse Ox O2 Delivery O2 Flow Rate FiO2 06/21/18 10:52 102 16 98 Mechanical Ventilator 35 06/21/18 10:50 102 20 35 06/21/18 10:43 101 20 98 Mechanical Ventilator 35 06/21/18 09:05 87 17 35 06/21/18 09:04 99 06/21/18 07:16 98 16 99 Mechanical Ventilator 35 06/21/18 07:14 95 21 35 06/21/18 07:04 98 20 97 Mechanical Ventilator 35 06/21/18 06:00 85 18 111/40 (63) 97 06/21/18 05:14 97 19 35 06/21/18 05:00 98 21 145/55 (85) 96 06/21/18 04:00 35 06/21/18 04:00 98.6 97 21 149/55 (86) 98 06/21/18 04:00 Mechanical Ventilator Mechanical Ventilator 06/21/18 03:20 91 06/21/18 03:12 91 17 100 Mechanical Ventilator 35 06/21/18 03:01 81 16 35 06/21/18 03:01 80 16 99 Mechanical Ventilator 35 06/21/18 03:00 86 17 136/55 (82) 98 06/21/18 02:00 78 16 150/63 (92) 98 06/21/18 01:00 79 16 116/46 (69) 98 06/21/18 00:52 82 16 35 06/21/18 00:00 35 06/21/18 00:00 Mechanical Ventilator Mechanical Ventilator 06/21/18 00:00 98.2 82 16 117/56 (76) 97 06/20/18 23:36 78 16 100 Mechanical Ventilator 35 06/20/18 23:25 89 06/20/18 23:22 89 16 35 06/20/18 23:22 96 17 100 Mechanical Ventilator 35 06/20/18 23:00 86 17 118/41 (66) 98 06/20/18 22:30 83 22 139/55 (83) 97 06/20/18 22:00 98 19 158/90 (112) 98 06/20/18 21:30 99 18 35 06/20/18 21:00 91 24 135/48 (77) 96 06/20/18 20:00 98.5 90 17 130/44 (72) 98 06/20/18 20:00 35 06/20/18 20:00 Mechanical Ventilator Mechanical Ventilator 06/20/18 19:28 91 16 100 Mechanical Ventilator 35 06/20/18 19:18 96 17 35 06/20/18 19:18 96 17 100 Mechanical Ventilator 35 06/20/18 19:06 101 06/20/18 19:00 97 23 149/54 (85) 100 06/20/18 18:26 98.8 06/20/18 18:00 96 18 146/54 (84) 97 06/20/18 17:00 103 19 154/54 (87) 97 06/20/18 16:40 111 22 35 06/20/18 16:00 Endotracheal Tube Endotracheal Tube 06/20/18 16:00 89 06/20/18 16:00 35 06/20/18 16:00 99.6 93 16 147/52 (83) 100 06/20/18 15:45 91 16 100 Mechanical Ventilator 35 06/20/18 15:30 94 22 97 Mechanical Ventilator 35 06/20/18 15:10 85 18 35 06/20/18 15:00 95 24 163/61 (95) 99 06/20/18 15:00 99 06/20/18 14:00 78 22 135/73 (93) 100 06/20/18 13:11 90 16 35 06/20/18 13:00 78 16 129/52 (77) 100 06/20/18 12:11 88 16 100 Mechanical Ventilator 35 06/20/18 12:01 82 16 100 Mechanical Ventilator 35 06/20/18 12:00 75 06/20/18 12:00 Endotracheal Tube Endotracheal Tube 06/20/18 12:00 35 06/20/18 12:00 98.9 79 16 131/56 (81) 100 Height (Feet): 5 Height (Inches): 4.00 Weight (Pounds): 113 Objective General Appearance: no apparent distress, other - on intubated Neck: supple Cardiovascular: normal rate Respiratory/Chest: lungs clear Abdomen: normal bowel sounds, non tender, soft Extremities: trace edema Laboratory Tests Test 06/20/18 13:35 06/21/18 05:00 Arterial Blood pH 7.348 (7.350-7.450) Arterial Blood Partial Pressure CO2 42.4 mmHg (35.0-45.0) Arterial Blood Partial Pressure O2 75.5 mmHg (75.0-100.0) Arterial Blood HCO3 22.8 mmol/L (22.0-26.0) Arterial Blood Oxygen Saturation 95.1 % (95-100) Arterial Blood Base Excess -2.7 (-2-2) L David Test Positive White Blood Count 10.8 K/UL (4.8-10.8) Red Blood Count 3.82 M/UL (4.20-5.40) L Hemoglobin 8.7 G/DL (12.0-16.0) L Hematocrit 28.0 % (37.0-47.0) L Mean Corpuscular Volume 73 FL (80-99) L Mean Corpuscular Hemoglobin 22.8 PG (27.0-31.0) L Mean Corpuscular Hemoglobin Concent 31.1 G/DL (32.0-36.0) L Red Cell Distribution Width 18.6 % (11.6-14.8) H Platelet Count 242 K/UL (150-450) Mean Platelet Volume 7.7 FL (6.5-10.1) Neutrophils (%) (Auto) 66.7 % (45.0-75.0) Lymphocytes (%) (Auto) 18.4 % (20.0-45.0) L Monocytes (%) (Auto) 7.3 % (1.0-10.0) Eosinophils (%) (Auto) 6.8 % (0.0-3.0) H Basophils (%) (Auto) 0.8 % (0.0-2.0) Sodium Level 137 MMOL/L (136-145) Potassium Level 5.3 MMOL/L (3.5-5.1) H Chloride Level 103 MMOL/L (98-107) Carbon Dioxide Level 26 MMOL/L (21-32) Anion Gap 8 mmol/L (5-15) Blood Urea Nitrogen 84 mg/dL (7-18) H Creatinine 4.5 MG/DL (0.55-1.30) H Estimat Glomerular Filtration Rate mL/min (>60) Glucose Level 131 MG/DL (74-106) H Uric Acid 7.3 MG/DL (2.6-7.2) H Calcium Level 8.1 MG/DL (8.5-10.1) L Phosphorus Level 4.9 MG/DL (2.5-4.9) Magnesium Level 1.8 MG/DL (1.8-2.4) Total Bilirubin 0.2 MG/DL (0.2-1.0) Aspartate Amino Transf (AST/SGOT) 20 U/L (15-37) Alanine Aminotransferase (ALT/SGPT) 18 U/L (12-78) Alkaline Phosphatase 111 U/L (46-116) Pro-B-Type Natriuretic Peptide 2900 pg/mL (0-125) H Total Protein 6.6 G/DL (6.4-8.2) Albumin 2.5 G/DL (3.4-5.0) L Globulin 4.1 g/dL Albumin/Globulin Ratio 0.6 (1.0-2.7) L Random Vancomycin Level 19.3 ug/mL Current Medications Medications (Trade) Dose Ordered Sig/Ann Route PRN Reason Start Time Stop Time Status Last Admin Dose Admin Acetaminophen (Tylenol) 650 mg Q4H PRN ORAL Mild Pain/Temp > 100.5 06/16/18 19:19 07/16/18 19:18 06/21/18 04:03 Acetylcysteine (Mucomyst) 100 mg Q4HRT HHN 06/16/18 23:00 07/09/18 21:29 06/21/18 10:53 Albuterol/ Ipratropium (Albuterol/ Ipratropium) 3 ml Q4HRT PRN HHN Shortness of Breath 06/20/18 04:45 06/25/18 04:44 06/21/18 10:53 Amiodarone HCl (Cordarone) 200 mg BID ORAL 06/17/18 09:00 07/17/18 08:59 06/21/18 10:02 Chlorhexidine Gluconate (Myra-Hex 2%) 1 applic DAILY@2000 TOPIC 06/16/18 20:00 07/02/18 19:59 06/20/18 19:34 Dextrose/Sodium Chloride 1,000 ml @ 75 mls/hr [id number] IV 06/19/18 13:00 07/19/18 12:59 06/21/18 05:05 Ertapenem 0.5 gm/ Sodium Chloride 55 ml @ 110 mls/hr Q24H IVPB 06/20/18 17:30 06/25/18 17:29 06/20/18 17:52 Haloperidol Lactate (Haldol) 5 mg Q6H PRN IM Agitation 06/16/18 19:20 07/16/18 19:19 Heparin Sodium (Porcine) (Heparin 5000 units/ml) 5,000 units EVERY 12 HOURS SUBQ 06/16/18 21:00 06/27/18 08:59 06/21/18 10:10 Lorazepam (Ativan 2mg/ml 1ml) 0.5 mg Q3H PRN IV For Anxiety 06/16/18 19:20 06/23/18 19:19 06/20/18 20:36 Metoprolol Tartrate (Lopressor) 5 mg Q6H PRN IVP SBP > 125 06/16/18 19:20 07/16/18 19:19 Nitroglycerin (Ntg) 0.4 mg Q5M PRN SL Prn Chest Pain 06/16/18 19:20 06/27/18 13:29 Ondansetron HCl (Zofran) 4 mg Q6H PRN IVP Nausea & Vomiting 06/16/18 19:21 07/16/18 19:20 Pantoprazole (Protonix) 40 mg DAILY IVP 06/20/18 20:00 07/20/18 19:59 06/21/18 10:05 Polyethylene Glycol (Miralax) 17 gm BEDTIME ORAL 06/16/18 21:00 07/06/18 20:59 06/20/18 20:35 Polyethylene Glycol (Miralax) 17 gm DAILYPRN PRN ORAL Constipation 06/16/18 19:21 07/16/18 19:20 Quetiapine Fumarate (SEROquel) 25 mg Q6H PRN ORAL For Anxiety 06/16/18 19:21 07/16/18 19:20 06/18/18 10:06 Vancomycin HCl (Firvanq) 125 mg FOUR TIMES A DAY NG 06/19/18 13:00 06/26/18 12:59 06/21/18 10:05 Natty Hernandes M.D. Jun 21, 2018 11:09
--- NOTE | 2018-06-21 12:30 | NUR ---
NURSE NOTES: Patient resting comfortably beside and does not appear to be in any acute distress. Patient continues to appear restless and confused. Patient opens her eyes spontaneously and follow some commands. Patient is being monitored on the critical care physician VSS. Patient is mechanically ventilated with 7.5 ETT with vent settings AC 16, TV 400, FIO2 35% +5. Oral care was performed. Patient has a rectal tube draining liquid brown stool to gravity. Patient has an NGT running Glucerna 1.5 at 55 ml/hr. Patient has Sinclair catheter draining straw colored urine to gravity. Patient is very impulsive and has BL soft wrist restraints are placed. Pulses are palpable and skin is intact. Safety measures are in place with bed locked in the lowest position with HOB elevated and side rails up x 3. Will continue to monitor and follow plan of care
--- NOTE | 2018-06-21 12:36 | Pulmonolgy Critical Care Note ---
Critical Care - Asmt/Plan Assessment/Plan: Problem List: 1. Acute on chronic hypercapnic respiratory failure -intubated 06/02; extubated 06/10 -reintubated 06/17 2. R lung collapse, mucous plugging - resolved 3. Pulmonary edema 4. chronic obstructive asthma 5. Pneumonia 6. Hx afib 7. MRSA pna, recurrent fever and increased leukocytosis 8. ESBL E.coli pna 9. C.diff colitis Plan: -cont mechanical ventilatory support -weaning trials as tolerated -will contact son to recommend trach placement -aggressive pulmonary hygiene with duonebs/mucomyst/suctioning q4 -chest PT R lung -repeat CXR shows more effusion -monitor volumes, hold IVF, may consider lasix -monitor renal function, improving -abx per ID Respiratory: weaning trial Renal: F/U I&O, decrease IV fluid Infectious Disease: continue antibiotics Neurologic: keep patient comfortable Time Spent (Minutes): 50 - cc Notes Reviewed: cardio, renal Discussed with: nurses, consultants, family member Critical Care - Objective Last 24 Hour Vital Signs Date Time Temp Pulse Resp B/P (MAP) Pulse Ox O2 Delivery O2 Flow Rate FiO2 06/21/18 12:00 Mechanical Ventilator Mechanical Ventilator 06/21/18 12:00 35 06/21/18 10:52 102 16 98 Mechanical Ventilator 35 06/21/18 10:50 102 20 35 06/21/18 10:43 101 20 98 Mechanical Ventilator 35 06/21/18 09:05 87 17 35 06/21/18 09:04 99 06/21/18 08:00 35 06/21/18 08:00 Mechanical Ventilator Mechanical Ventilator 06/21/18 07:16 98 16 99 Mechanical Ventilator 35 06/21/18 07:14 95 21 35 06/21/18 07:04 98 20 97 Mechanical Ventilator 35 06/21/18 06:00 85 18 111/40 (63) 97 06/21/18 05:14 97 19 35 06/21/18 05:00 98 21 145/55 (85) 96 06/21/18 04:00 35 06/21/18 04:00 98.6 97 21 149/55 (86) 98 06/21/18 04:00 Mechanical Ventilator Mechanical Ventilator 06/21/18 03:20 91 06/21/18 03:12 91 17 100 Mechanical Ventilator 35 06/21/18 03:01 81 16 35 06/21/18 03:01 80 16 99 Mechanical Ventilator 35 06/21/18 03:00 86 17 136/55 (82) 98 06/21/18 02:00 78 16 150/63 (92) 98 06/21/18 01:00 79 16 116/46 (69) 98 06/21/18 00:52 82 16 35 06/21/18 00:00 35 06/21/18 00:00 Mechanical Ventilator Mechanical Ventilator 06/21/18 00:00 98.2 82 16 117/56 (76) 97 06/20/18 23:36 78 16 100 Mechanical Ventilator 35 06/20/18 23:25 89 06/20/18 23:22 89 16 35 06/20/18 23:22 96 17 100 Mechanical Ventilator 35 06/20/18 23:00 86 17 118/41 (66) 98 06/20/18 22:30 83 22 139/55 (83) 97 06/20/18 22:00 98 19 158/90 (112) 98 06/20/18 21:30 99 18 35 06/20/18 21:00 91 24 135/48 (77) 96 06/20/18 20:00 98.5 90 17 130/44 (72) 98 06/20/18 20:00 35 06/20/18 20:00 Mechanical Ventilator Mechanical Ventilator 06/20/18 19:28 91 16 100 Mechanical Ventilator 35 06/20/18 19:18 96 17 35 06/20/18 19:18 96 17 100 Mechanical Ventilator 35 06/20/18 19:06 101 06/20/18 19:00 97 23 149/54 (85) 100 06/20/18 18:26 98.8 06/20/18 18:00 96 18 146/54 (84) 97 06/20/18 17:00 103 19 154/54 (87) 97 06/20/18 16:40 111 22 35 06/20/18 16:00 Endotracheal Tube Endotracheal Tube 06/20/18 16:00 89 06/20/18 16:00 35 06/20/18 16:00 99.6 93 16 147/52 (83) 100 06/20/18 15:45 91 16 100 Mechanical Ventilator 35 06/20/18 15:30 94 22 97 Mechanical Ventilator 35 06/20/18 15:10 85 18 35 06/20/18 15:00 95 24 163/61 (95) 99 06/20/18 15:00 99 06/20/18 14:00 78 22 135/73 (93) 100 06/20/18 13:11 90 16 35 06/20/18 13:00 78 16 129/52 (77) 100 Status: awake HEENT: atraumatic Lungs: rales Heart: HR/BP stable Abdomen: soft, non-tender Critical Care - Subjective ROS Limited/Unobtainable: Yes Interval Events: Not tolerating weaning CXR with increasing effusion on right NO secretions FI02: 35 Vent Support Breath Rate: 16 Vent Support Mode: AC Vent Tidal Volume: 400 Sputum Amount: Moderate PEEP: 5.0 PIP: 39 Tube Feeding Amount: 55 I&O: Intake and Output 06/20/18 06/21/18 19:00 07:00 Intake Total 1806 ml 1342 ml Output Total 1334 ml 1170 ml Balance 472 ml 172 ml Free Water 286 ml 266 ml IV Total 970 ml 150 ml Tube Feeding 550 ml 660 ml Other 266 ml Output Urine Total 894 ml 1070 ml Stool Total 440 ml 100 ml ET-Tube: 7.5 ET Position: 23 Varinder De Souza MD Jun 21, 2018 12:36
--- NOTE | 2018-06-21 12:52 | Cardiology Progress Note ---
Assessment/Plan Assessment/Plan COPD, congestive heart failure, atrial fibrillation sinus tachy agitation right lung collapse? anemia pleural effusion respirator failure tachy acute on chronic renal failure tele sinus with pvc vent suppor t abx pulm rxn bp is fine blood cx previously neg beta evelyn iv or via ngt prn increase amiod to 200 mg bid for a few days may be as of wed will switch back d/w rn hemodynamically stable at the moment cxr reviewed right effusion d/w dr newton will stop ivf for now Subjective ROS Limited/Unobtainable: Yes Subjective in icu on vent in isolation Objective Last 24 Hour Vital Signs Date Time Temp Pulse Resp B/P (MAP) Pulse Ox O2 Delivery O2 Flow Rate FiO2 06/21/18 12:00 Mechanical Ventilator Mechanical Ventilator 06/21/18 12:00 35 06/21/18 10:52 102 16 98 Mechanical Ventilator 35 06/21/18 10:50 102 20 35 06/21/18 10:43 101 20 98 Mechanical Ventilator 35 06/21/18 09:05 87 17 35 06/21/18 09:04 99 06/21/18 08:00 35 06/21/18 08:00 Mechanical Ventilator Mechanical Ventilator 06/21/18 07:16 98 16 99 Mechanical Ventilator 35 06/21/18 07:14 95 21 35 06/21/18 07:04 98 20 97 Mechanical Ventilator 35 06/21/18 06:00 85 18 111/40 (63) 97 06/21/18 05:14 97 19 35 06/21/18 05:00 98 21 145/55 (85) 96 06/21/18 04:00 35 06/21/18 04:00 98.6 97 21 149/55 (86) 98 06/21/18 04:00 Mechanical Ventilator Mechanical Ventilator 06/21/18 03:20 91 06/21/18 03:12 91 17 100 Mechanical Ventilator 35 06/21/18 03:01 81 16 35 06/21/18 03:01 80 16 99 Mechanical Ventilator 35 06/21/18 03:00 86 17 136/55 (82) 98 06/21/18 02:00 78 16 150/63 (92) 98 06/21/18 01:00 79 16 116/46 (69) 98 06/21/18 00:52 82 16 35 06/21/18 00:00 35 06/21/18 00:00 Mechanical Ventilator Mechanical Ventilator 06/21/18 00:00 98.2 82 16 117/56 (76) 97 06/20/18 23:36 78 16 100 Mechanical Ventilator 35 06/20/18 23:25 89 06/20/18 23:22 89 16 35 06/20/18 23:22 96 17 100 Mechanical Ventilator 35 06/20/18 23:00 86 17 118/41 (66) 98 06/20/18 22:30 83 22 139/55 (83) 97 06/20/18 22:00 98 19 158/90 (112) 98 06/20/18 21:30 99 18 35 06/20/18 21:00 91 24 135/48 (77) 96 06/20/18 20:00 98.5 90 17 130/44 (72) 98 06/20/18 20:00 35 06/20/18 20:00 Mechanical Ventilator Mechanical Ventilator 06/20/18 19:28 91 16 100 Mechanical Ventilator 35 06/20/18 19:18 96 17 35 06/20/18 19:18 96 17 100 Mechanical Ventilator 35 06/20/18 19:06 101 06/20/18 19:00 97 23 149/54 (85) 100 06/20/18 18:26 98.8 06/20/18 18:00 96 18 146/54 (84) 97 06/20/18 17:00 103 19 154/54 (87) 97 06/20/18 16:40 111 22 35 06/20/18 16:00 Endotracheal Tube Endotracheal Tube 06/20/18 16:00 89 06/20/18 16:00 35 06/20/18 16:00 99.6 93 16 147/52 (83) 100 06/20/18 15:45 91 16 100 Mechanical Ventilator 35 06/20/18 15:30 94 22 97 Mechanical Ventilator 35 06/20/18 15:10 85 18 35 06/20/18 15:00 95 24 163/61 (95) 99 06/20/18 15:00 99 06/20/18 14:00 78 22 135/73 (93) 100 06/20/18 13:11 90 16 35 06/20/18 13:00 78 16 129/52 (77) 100 General Appearance: no apparent distress, alert, on vent, patient on isolation Neck: supple Cardiovascular: normal rate, regular rhythm Respiratory/Chest: lungs clear, normal breath sounds Abdomen: normal bowel sounds, non tender, soft Extremities: no swelling Intake and Output 06/20/18 06/21/18 19:00 07:00 Intake Total 1806 ml 1342 ml Output Total 1334 ml 1170 ml Balance 472 ml 172 ml Free Water 286 ml 266 ml IV Total 970 ml 150 ml Tube Feeding 550 ml 660 ml Other 266 ml Output Urine Total 894 ml 1070 ml Stool Total 440 ml 100 ml Laboratory Tests Test 06/20/18 13:35 06/21/18 05:00 Arterial Blood pH 7.348 (7.350-7.450) Arterial Blood Partial Pressure CO2 42.4 mmHg (35.0-45.0) Arterial Blood Partial Pressure O2 75.5 mmHg (75.0-100.0) Arterial Blood HCO3 22.8 mmol/L (22.0-26.0) Arterial Blood Oxygen Saturation 95.1 % (95-100) Arterial Blood Base Excess -2.7 (-2-2) L David Test Positive White Blood Count 10.8 K/UL (4.8-10.8) Red Blood Count 3.82 M/UL (4.20-5.40) L Hemoglobin 8.7 G/DL (12.0-16.0) L Hematocrit 28.0 % (37.0-47.0) L Mean Corpuscular Volume 73 FL (80-99) L Mean Corpuscular Hemoglobin 22.8 PG (27.0-31.0) L Mean Corpuscular Hemoglobin Concent 31.1 G/DL (32.0-36.0) L Red Cell Distribution Width 18.6 % (11.6-14.8) H Platelet Count 242 K/UL (150-450) Mean Platelet Volume 7.7 FL (6.5-10.1) Neutrophils (%) (Auto) 66.7 % (45.0-75.0) Lymphocytes (%) (Auto) 18.4 % (20.0-45.0) L Monocytes (%) (Auto) 7.3 % (1.0-10.0) Eosinophils (%) (Auto) 6.8 % (0.0-3.0) H Basophils (%) (Auto) 0.8 % (0.0-2.0) Sodium Level 137 MMOL/L (136-145) Potassium Level 5.3 MMOL/L (3.5-5.1) H Chloride Level 103 MMOL/L (98-107) Carbon Dioxide Level 26 MMOL/L (21-32) Anion Gap 8 mmol/L (5-15) Blood Urea Nitrogen 84 mg/dL (7-18) H Creatinine 4.5 MG/DL (0.55-1.30) H Estimat Glomerular Filtration Rate mL/min (>60) Glucose Level 131 MG/DL (74-106) H Uric Acid 7.3 MG/DL (2.6-7.2) H Calcium Level 8.1 MG/DL (8.5-10.1) L Phosphorus Level 4.9 MG/DL (2.5-4.9) Magnesium Level 1.8 MG/DL (1.8-2.4) Total Bilirubin 0.2 MG/DL (0.2-1.0) Aspartate Amino Transf (AST/SGOT) 20 U/L (15-37) Alanine Aminotransferase (ALT/SGPT) 18 U/L (12-78) Alkaline Phosphatase 111 U/L (46-116) Pro-B-Type Natriuretic Peptide 2900 pg/mL (0-125) H Total Protein 6.6 G/DL (6.4-8.2) Albumin 2.5 G/DL (3.4-5.0) L Globulin 4.1 g/dL Albumin/Globulin Ratio 0.6 (1.0-2.7) L Random Vancomycin Level 19.3 ug/mL Geoffrey Sandhu MD Jun 21, 2018 12:52
--- NOTE | 2018-06-21 12:59 | General Progress Note ---
Assessment/Plan Problem List: (1) encephalopathy due to toxin (2) Dementia ICD Codes: F03.90 - Unspecified dementia without behavioral disturbance SNOMED: 32464035 Assessment/Plan Haldol Im on board Seroquel 25mg q 6hr prn cont restraints. Subjective Allergies: Coded Allergies: Mushroom (Verified Allergy, Severe, 05/28/18) MORPHINE (Unverified Allergy, Intermediate, Itching, 01/04/15) PENICILLINS (Unverified Allergy, Intermediate, Hives, 01/04/15) CELECOXIB (Verified Allergy, Mild, 01/15/09) Subjective confused agitated more lethargic Objective Last 24 Hour Vital Signs Date Time Temp Pulse Resp B/P (MAP) Pulse Ox O2 Delivery O2 Flow Rate FiO2 06/21/18 12:00 Mechanical Ventilator Mechanical Ventilator 06/21/18 12:00 35 06/21/18 12:00 98.7 92 20 140/48 (78) 97 06/21/18 12:00 96 06/21/18 11:00 102 20 131/50 (77) 96 06/21/18 10:52 102 16 98 Mechanical Ventilator 35 06/21/18 10:50 102 20 35 06/21/18 10:43 101 20 98 Mechanical Ventilator 35 06/21/18 10:00 101 20 159/54 (89) 96 06/21/18 09:05 87 17 35 06/21/18 09:04 99 06/21/18 09:00 92 21 180/70 (106) 97 06/21/18 08:00 98.8 92 21 126/47 (73) 97 06/21/18 08:00 35 06/21/18 08:00 Mechanical Ventilator Mechanical Ventilator 06/21/18 08:00 92 06/21/18 07:16 98 16 99 Mechanical Ventilator 35 06/21/18 07:14 95 21 35 06/21/18 07:04 98 20 97 Mechanical Ventilator 35 06/21/18 07:00 96 21 147/63 (91) 97 06/21/18 06:00 85 18 111/40 (63) 97 06/21/18 05:14 97 19 35 06/21/18 05:00 98 21 145/55 (85) 96 06/21/18 04:00 35 06/21/18 04:00 98.6 97 21 149/55 (86) 98 06/21/18 04:00 Mechanical Ventilator Mechanical Ventilator 06/21/18 03:20 91 06/21/18 03:12 91 17 100 Mechanical Ventilator 35 06/21/18 03:01 81 16 35 06/21/18 03:01 80 16 99 Mechanical Ventilator 35 06/21/18 03:00 86 17 136/55 (82) 98 06/21/18 02:00 78 16 150/63 (92) 98 06/21/18 01:00 79 16 116/46 (69) 98 06/21/18 00:52 82 16 35 06/21/18 00:00 35 06/21/18 00:00 Mechanical Ventilator Mechanical Ventilator 06/21/18 00:00 98.2 82 16 117/56 (76) 97 06/20/18 23:36 78 16 100 Mechanical Ventilator 35 06/20/18 23:25 89 06/20/18 23:22 89 16 35 06/20/18 23:22 96 17 100 Mechanical Ventilator 35 06/20/18 23:00 86 17 118/41 (66) 98 06/20/18 22:30 83 22 139/55 (83) 97 06/20/18 22:00 98 19 158/90 (112) 98 06/20/18 21:30 99 18 35 06/20/18 21:00 91 24 135/48 (77) 96 06/20/18 20:00 98.5 90 17 130/44 (72) 98 06/20/18 20:00 35 06/20/18 20:00 Mechanical Ventilator Mechanical Ventilator 06/20/18 19:28 91 16 100 Mechanical Ventilator 35 06/20/18 19:18 96 17 35 06/20/18 19:18 96 17 100 Mechanical Ventilator 35 06/20/18 19:06 101 06/20/18 19:00 97 23 149/54 (85) 100 06/20/18 18:26 98.8 06/20/18 18:00 96 18 146/54 (84) 97 06/20/18 17:00 103 19 154/54 (87) 97 06/20/18 16:40 111 22 35 06/20/18 16:00 Endotracheal Tube Endotracheal Tube 06/20/18 16:00 89 06/20/18 16:00 35 06/20/18 16:00 99.6 93 16 147/52 (83) 100 06/20/18 15:45 91 16 100 Mechanical Ventilator 35 06/20/18 15:30 94 22 97 Mechanical Ventilator 35 06/20/18 15:10 85 18 35 06/20/18 15:00 95 24 163/61 (95) 99 06/20/18 15:00 99 06/20/18 14:00 78 22 135/73 (93) 100 06/20/18 13:11 90 16 35 06/20/18 13:00 78 16 129/52 (77) 100 Intake and Output 06/20/18 06/21/18 19:00 07:00 Intake Total 1806 ml 1342 ml Output Total 1334 ml 1170 ml Balance 472 ml 172 ml Free Water 286 ml 266 ml IV Total 970 ml 150 ml Tube Feeding 550 ml 660 ml Other 266 ml Output Urine Total 894 ml 1070 ml Stool Total 440 ml 100 ml Laboratory Tests 06/20/18 13:35: Arterial Blood pH 7.348L, Arterial Blood Partial Pressure CO2 42.4, Arterial Blood Partial Pressure O2 75.5, Arterial Blood HCO3 22.8, Arterial Blood Oxygen Saturation 95.1, Arterial Blood Base Excess -2.7L, David Test Positive 06/21/18 05:00: White Blood Count 10.8, Red Blood Count 3.82L, Hemoglobin 8.7L, Hematocrit 28.0L , Mean Corpuscular Volume 73L, Mean Corpuscular Hemoglobin 22.8L, Mean Corpuscular Hemoglobin Concent 31.1L, Red Cell Distribution Width 18.6H, Platelet Count 242, Mean Platelet Volume 7.7, Neutrophils (%) (Auto) 66.7, Lymphocytes (%) (Auto) 18.4L, Monocytes (%) (Auto) 7.3, Eosinophils (%) (Auto) 6.8H, Basophils (%) (Auto) 0.8, Sodium Level 137, Potassium Level 5.3H, Chloride Level 103, Carbon Dioxide Level 26, Anion Gap 8, Blood Urea Nitrogen 84H, Creatinine 4.5H, Estimat Glomerular Filtration Rate , Glucose Level 131H, Uric Acid 7.3H, Calcium Level 8.1L, Phosphorus Level 4.9, Magnesium Level 1.8, Total Bilirubin 0.2, Aspartate Amino Transf (AST/SGOT) 20, Alanine Aminotransferase (ALT/SGPT) 18, Alkaline Phosphatase 111, Pro-B-Type Natriuretic Peptide 2900H, Total Protein 6.6, Albumin 2.5L, Globulin 4.1, Albumin/Globulin Ratio 0.6L, Random Vancomycin Level 19.3 Height (Feet): 5 Height (Inches): 4.00 Weight (Pounds): 113 General Appearance: lethargic, confused, agitated Liz Lo MD Jun 21, 2018 12:59
[2018-06-21] MEDS ORDERED: Etomidate 40mg/20ml Inj IV ONE (13:11)
--- NOTE | 2018-06-21 14:37 | NUR ---
NURSE NOTES: New Glucerna 1.5 was hung. Tubing was changed, residual was checked and only 5 ml was noted. A 50 ml flush was given. Will continue to monitor.
--- NOTE | 2018-06-21 14:45 | GI Progress Note ---
Assessment/Plan Problems: (1) Severe malnutrition ICD Codes: E43 - Unspecified severe protein-calorie malnutrition SNOMED: 20788796 (2) Dementia ICD Codes: F03.90 - Unspecified dementia without behavioral disturbance SNOMED: 59407674 (3) Confused ICD Codes: R41.0 - Disorientation, unspecified SNOMED: 883996972 (4) Encounter for PEG (percutaneous endoscopic gastrostomy) ICD Codes: Z43.1 - Encounter for attention to gastrostomy SNOMED: 815021317, 321279268 (5) Failure to thrive SNOMED: 12837664 (6) Acute encephalopathy ICD Codes: G93.40 - Encephalopathy, unspecified SNOMED: 1174650 Status: unchanged Status Narrative Discussed with Dr. Acevedo. Assessment/Plan Assessment - Resp failure, intubated 3 times - NGT dependent - COPD - CHF - PNA - Anemia - Poor prognosis Recommendations - NGT feeds - Vent care - Elevated HOB - Monitor residuals - Abx - Pulmonary toilet - Await family decision re PEG The patient was seen and examined at bedside and all new and available data was reviewed in the patients chart. I agree with the above findings, impression and plan. (Patient seen earlier today. Signature stamp does not reflect patient encounter time.). - Jacobo Acevedo MD Subjective Subjective Limited Objective Last 24 Hour Vital Signs Date Time Temp Pulse Resp B/P (MAP) Pulse Ox O2 Delivery O2 Flow Rate FiO2 06/21/18 14:00 90 20 162/69 (100) 97 06/21/18 13:23 90 20 35 06/21/18 13:00 95 20 140/56 (84) 97 06/21/18 12:00 Mechanical Ventilator Mechanical Ventilator 06/21/18 12:00 35 06/21/18 12:00 98.7 92 20 140/48 (78) 97 06/21/18 12:00 96 06/21/18 11:00 102 20 131/50 (77) 96 06/21/18 10:52 102 16 98 Mechanical Ventilator 35 06/21/18 10:50 102 20 35 06/21/18 10:43 101 20 98 Mechanical Ventilator 35 06/21/18 10:00 101 20 159/54 (89) 96 06/21/18 09:05 87 17 35 06/21/18 09:04 99 06/21/18 09:00 92 21 180/70 (106) 97 06/21/18 08:00 98.8 92 21 126/47 (73) 97 06/21/18 08:00 35 06/21/18 08:00 Mechanical Ventilator Mechanical Ventilator 06/21/18 08:00 92 06/21/18 07:16 98 16 99 Mechanical Ventilator 35 06/21/18 07:14 95 21 35 06/21/18 07:04 98 20 97 Mechanical Ventilator 35 06/21/18 07:00 96 21 147/63 (91) 97 06/21/18 06:00 85 18 111/40 (63) 97 06/21/18 05:14 97 19 35 06/21/18 05:00 98 21 145/55 (85) 96 06/21/18 04:00 35 06/21/18 04:00 98.6 97 21 149/55 (86) 98 06/21/18 04:00 Mechanical Ventilator Mechanical Ventilator 06/21/18 03:20 91 06/21/18 03:12 91 17 100 Mechanical Ventilator 35 06/21/18 03:01 81 16 35 06/21/18 03:01 80 16 99 Mechanical Ventilator 35 06/21/18 03:00 86 17 136/55 (82) 98 06/21/18 02:00 78 16 150/63 (92) 98 06/21/18 01:00 79 16 116/46 (69) 98 06/21/18 00:52 82 16 35 06/21/18 00:00 35 06/21/18 00:00 Mechanical Ventilator Mechanical Ventilator 06/21/18 00:00 98.2 82 16 117/56 (76) 97 06/20/18 23:36 78 16 100 Mechanical Ventilator 35 06/20/18 23:25 89 06/20/18 23:22 89 16 35 06/20/18 23:22 96 17 100 Mechanical Ventilator 35 06/20/18 23:00 86 17 118/41 (66) 98 06/20/18 22:30 83 22 139/55 (83) 97 06/20/18 22:00 98 19 158/90 (112) 98 06/20/18 21:30 99 18 35 06/20/18 21:00 91 24 135/48 (77) 96 06/20/18 20:00 98.5 90 17 130/44 (72) 98 06/20/18 20:00 35 06/20/18 20:00 Mechanical Ventilator Mechanical Ventilator 06/20/18 19:28 91 16 100 Mechanical Ventilator 35 06/20/18 19:18 96 17 35 06/20/18 19:18 96 17 100 Mechanical Ventilator 35 06/20/18 19:06 101 06/20/18 19:00 97 23 149/54 (85) 100 06/20/18 18:26 98.8 06/20/18 18:00 96 18 146/54 (84) 97 06/20/18 17:00 103 19 154/54 (87) 97 06/20/18 16:40 111 22 35 06/20/18 16:00 Endotracheal Tube Endotracheal Tube 06/20/18 16:00 89 06/20/18 16:00 35 06/20/18 16:00 99.6 93 16 147/52 (83) 100 06/20/18 15:45 91 16 100 Mechanical Ventilator 35 06/20/18 15:30 94 22 97 Mechanical Ventilator 35 06/20/18 15:10 85 18 35 06/20/18 15:00 95 24 163/61 (95) 99 06/20/18 15:00 99 Intake and Output 06/20/18 06/21/18 19:00 07:00 Intake Total 1806 ml 1342 ml Output Total 1334 ml 1170 ml Balance 472 ml 172 ml Free Water 286 ml 266 ml IV Total 970 ml 150 ml Tube Feeding 550 ml 660 ml Other 266 ml Output Urine Total 894 ml 1070 ml Stool Total 440 ml 100 ml Laboratory Tests Test 06/21/18 05:00 White Blood Count 10.8 K/UL (4.8-10.8) Red Blood Count 3.82 M/UL (4.20-5.40) L Hemoglobin 8.7 G/DL (12.0-16.0) L Hematocrit 28.0 % (37.0-47.0) L Mean Corpuscular Volume 73 FL (80-99) L Mean Corpuscular Hemoglobin 22.8 PG (27.0-31.0) L Mean Corpuscular Hemoglobin Concent 31.1 G/DL (32.0-36.0) L Red Cell Distribution Width 18.6 % (11.6-14.8) H Platelet Count 242 K/UL (150-450) Mean Platelet Volume 7.7 FL (6.5-10.1) Neutrophils (%) (Auto) 66.7 % (45.0-75.0) Lymphocytes (%) (Auto) 18.4 % (20.0-45.0) L Monocytes (%) (Auto) 7.3 % (1.0-10.0) Eosinophils (%) (Auto) 6.8 % (0.0-3.0) H Basophils (%) (Auto) 0.8 % (0.0-2.0) Sodium Level 137 MMOL/L (136-145) Potassium Level 5.3 MMOL/L (3.5-5.1) H Chloride Level 103 MMOL/L (98-107) Carbon Dioxide Level 26 MMOL/L (21-32) Anion Gap 8 mmol/L (5-15) Blood Urea Nitrogen 84 mg/dL (7-18) H Creatinine 4.5 MG/DL (0.55-1.30) H Estimat Glomerular Filtration Rate mL/min (>60) Glucose Level 131 MG/DL (74-106) H Uric Acid 7.3 MG/DL (2.6-7.2) H Calcium Level 8.1 MG/DL (8.5-10.1) L Phosphorus Level 4.9 MG/DL (2.5-4.9) Magnesium Level 1.8 MG/DL (1.8-2.4) Total Bilirubin 0.2 MG/DL (0.2-1.0) Aspartate Amino Transf (AST/SGOT) 20 U/L (15-37) Alanine Aminotransferase (ALT/SGPT) 18 U/L (12-78) Alkaline Phosphatase 111 U/L (46-116) Pro-B-Type Natriuretic Peptide 2900 pg/mL (0-125) H Total Protein 6.6 G/DL (6.4-8.2) Albumin 2.5 G/DL (3.4-5.0) L Globulin 4.1 g/dL Albumin/Globulin Ratio 0.6 (1.0-2.7) L Random Vancomycin Level 19.3 ug/mL Height (Feet): 5 Height (Inches): 4.00 Weight (Pounds): 113 General Appearance: alert Cardiovascular: normal rate Respiratory/Chest: normal breath sounds, no respiratory distress, other - intubated Abdominal Exam: normal bowel sounds, non tender, soft Extremities: non-tender Alber Rodriguez NP Jun 21, 2018 14:45
--- NOTE | 2018-06-21 15:00 | Nephrology Progress Note ---
Assessment/Plan Problem List: (1) Acute renal failure Assessment: Cr lowering (2) Anuria (3) Acute respiratory failure Assessment: on vent (4) Dementia (5) Afib Assessment Urine out put rising Cr lowering other conditions: (1) Acute respiratory failure (2) Aspiration pneumonia (3) Acute encephalopathy (4) Pleural effusion (5) COPD (chronic obstructive pulmonary disease) (6) CAD (coronary artery disease) (7) Dementia Plan Cr llowering- Urine out put higher monitor vanco level family agree with HD . but no need for HD at this time intubated now ? Trach?? K and Phos and Mag as needed Anemia porter Adjust BP meds fu Lytes Gastric support per orders Objective Objective Last 24 Hour Vital Signs Date Time Temp Pulse Resp B/P (MAP) Pulse Ox O2 Delivery O2 Flow Rate FiO2 06/21/18 14:00 90 20 162/69 (100) 97 06/21/18 13:23 90 20 35 06/21/18 13:00 95 20 140/56 (84) 97 06/21/18 12:00 Mechanical Ventilator Mechanical Ventilator 06/21/18 12:00 35 06/21/18 12:00 98.7 92 20 140/48 (78) 97 06/21/18 12:00 96 06/21/18 11:00 102 20 131/50 (77) 96 06/21/18 10:52 102 16 98 Mechanical Ventilator 35 06/21/18 10:50 102 20 35 06/21/18 10:43 101 20 98 Mechanical Ventilator 35 06/21/18 10:00 101 20 159/54 (89) 96 06/21/18 09:05 87 17 35 06/21/18 09:04 99 06/21/18 09:00 92 21 180/70 (106) 97 06/21/18 08:00 98.8 92 21 126/47 (73) 97 06/21/18 08:00 35 06/21/18 08:00 Mechanical Ventilator Mechanical Ventilator 06/21/18 08:00 92 06/21/18 07:16 98 16 99 Mechanical Ventilator 35 06/21/18 07:14 95 21 35 06/21/18 07:04 98 20 97 Mechanical Ventilator 35 06/21/18 07:00 96 21 147/63 (91) 97 06/21/18 06:00 85 18 111/40 (63) 97 06/21/18 05:14 97 19 35 06/21/18 05:00 98 21 145/55 (85) 96 06/21/18 04:00 35 06/21/18 04:00 98.6 97 21 149/55 (86) 98 06/21/18 04:00 Mechanical Ventilator Mechanical Ventilator 06/21/18 03:20 91 06/21/18 03:12 91 17 100 Mechanical Ventilator 35 06/21/18 03:01 81 16 35 06/21/18 03:01 80 16 99 Mechanical Ventilator 35 06/21/18 03:00 86 17 136/55 (82) 98 06/21/18 02:00 78 16 150/63 (92) 98 06/21/18 01:00 79 16 116/46 (69) 98 06/21/18 00:52 82 16 35 06/21/18 00:00 35 06/21/18 00:00 Mechanical Ventilator Mechanical Ventilator 06/21/18 00:00 98.2 82 16 117/56 (76) 97 06/20/18 23:36 78 16 100 Mechanical Ventilator 35 06/20/18 23:25 89 06/20/18 23:22 89 16 35 06/20/18 23:22 96 17 100 Mechanical Ventilator 35 06/20/18 23:00 86 17 118/41 (66) 98 06/20/18 22:30 83 22 139/55 (83) 97 06/20/18 22:00 98 19 158/90 (112) 98 06/20/18 21:30 99 18 35 06/20/18 21:00 91 24 135/48 (77) 96 06/20/18 20:00 98.5 90 17 130/44 (72) 98 06/20/18 20:00 35 06/20/18 20:00 Mechanical Ventilator Mechanical Ventilator 06/20/18 19:28 91 16 100 Mechanical Ventilator 35 06/20/18 19:18 96 17 35 06/20/18 19:18 96 17 100 Mechanical Ventilator 35 06/20/18 19:06 101 06/20/18 19:00 97 23 149/54 (85) 100 06/20/18 18:26 98.8 06/20/18 18:00 96 18 146/54 (84) 97 06/20/18 17:00 103 19 154/54 (87) 97 06/20/18 16:40 111 22 35 06/20/18 16:00 Endotracheal Tube Endotracheal Tube 06/20/18 16:00 89 06/20/18 16:00 35 06/20/18 16:00 99.6 93 16 147/52 (83) 100 06/20/18 15:45 91 16 100 Mechanical Ventilator 35 06/20/18 15:30 94 22 97 Mechanical Ventilator 35 06/20/18 15:10 85 18 35 06/20/18 15:00 95 24 163/61 (95) 99 06/20/18 15:00 99 Intake and Output 06/20/18 06/21/18 19:00 07:00 Intake Total 1806 ml 1342 ml Output Total 1334 ml 1170 ml Balance 472 ml 172 ml Free Water 286 ml 266 ml IV Total 970 ml 150 ml Tube Feeding 550 ml 660 ml Other 266 ml Output Urine Total 894 ml 1070 ml Stool Total 440 ml 100 ml Laboratory Tests 06/21/18 05:00: White Blood Count 10.8, Red Blood Count 3.82L, Hemoglobin 8.7L, Hematocrit 28.0L , Mean Corpuscular Volume 73L, Mean Corpuscular Hemoglobin 22.8L, Mean Corpuscular Hemoglobin Concent 31.1L, Red Cell Distribution Width 18.6H, Platelet Count 242, Mean Platelet Volume 7.7, Neutrophils (%) (Auto) 66.7, Lymphocytes (%) (Auto) 18.4L, Monocytes (%) (Auto) 7.3, Eosinophils (%) (Auto) 6.8H, Basophils (%) (Auto) 0.8, Sodium Level 137, Potassium Level 5.3H, Chloride Level 103, Carbon Dioxide Level 26, Anion Gap 8, Blood Urea Nitrogen 84H, Creatinine 4.5H, Estimat Glomerular Filtration Rate , Glucose Level 131H, Uric Acid 7.3H, Calcium Level 8.1L, Phosphorus Level 4.9, Magnesium Level 1.8, Total Bilirubin 0.2, Aspartate Amino Transf (AST/SGOT) 20, Alanine Aminotransferase (ALT/SGPT) 18, Alkaline Phosphatase 111, Pro-B-Type Natriuretic Peptide 2900H, Total Protein 6.6, Albumin 2.5L, Globulin 4.1, Albumin/Globulin Ratio 0.6L, Random Vancomycin Level 19.3 Height (Feet): 5 Height (Inches): 4.00 Weight (Pounds): 113 Objective no change Kendrick Jimenez MD Jun 21, 2018 15:00
--- NOTE | 2018-06-21 16:19 | NUR ---
NURSE NOTES: Patient is seen in her bed awake and often restless. Patient does not appear in any acute distress. Patient is being monitored on the child monitor VSS. Patient is mechanically ventilated with 7.5 ETT with vent settings AC 16, TV 400, FIO2 35% +5. Patient has been repositioned for comfort. Patient is afebrile. Patient has a rectal tube draining liquid brown stool to gravity. Contact precautions are being followed for this patient. Patient has an NGT running Glucerna 1.5 at 55 ml/hr. Patient has Sinclair catheter draining straw colored urine to gravity. Patient is very impulsive and has BL soft wrist restraints are in place for impulsivity. Pulses are palpable and skin is intact. Safety measures are in place with bed locked in the lowest position with HOB elevated and side rails up x 3. Will continue to monitor and follow plan of care
--- NOTE | 2018-06-21 18:47 | Consultation ---
History of Present Illness General Chief Complaint: Dyspnea/Respdistress Reason for Consultation: PNA Present Illness HPI 87 year old female currently admitted in ICU critically ill intubated on vent support. multiple attempts made to weaning from vent but unsuccessful. surgery called to evaluate for tracheostomy. patient seen, chart reviewed, patient examined. he is awake and alert. unable to tolerate weaning trials. agitated at times. Allergies: Coded Allergies: Mushroom (Verified Allergy, Severe, 05/28/18) MORPHINE (Unverified Allergy, Intermediate, Itching, 01/04/15) PENICILLINS (Unverified Allergy, Intermediate, Hives, 01/04/15) CELECOXIB (Verified Allergy, Mild, 01/15/09) Medication History Scheduled Amiodarone Hcl* (Cordarone*), 200 MG ORAL DAILY Amlodipine Besylate (Norvasc), 5 MG ORAL DAILY, (Reported) Denosumab (Prolia), 60 MG SUBQ EVERY 6 MONTHS, (Reported) Donepezil Hcl* (Donepezil Hcl*), 5 MG ORAL HS, (Reported) Escitalopram Oxalate* (Lexapro*), 10 MG ORAL DAILY, (Reported) Fluticasone/Salmeterol (Advair 100-50 Diskus), 1 PUFF INH EVERY 12 HOURS, ( Reported) Furosemide* (Lasix*), 40 MG ORAL BID, (Reported) Hydrochlorothiazide* (Hydrochlorothiazide*), 25 MG ORAL DAILY, (Reported) Methylprednisolone* (Medrol*), 4 MG ORAL DAILY Mirtazapine* (Mirtazapine*), 15 MG ORAL BEDTIME, (Reported) Montelukast Sodium* (Singulair*), 10 MG ORAL DAILY, (Reported) Montelukast Sodium* (Singulair*), 10 MG ORAL BEDTIME, (Reported) Pantoprazole* (Pantoprazole*), 40 MG ORAL DAILY, (Reported) Potassium Gluconate (Potassium), 10 MEQ PO BID, (Reported) Tiotropium Morrill* (Spiriva*), 1 PUFF INH DAILY, (Reported) Valsartan (Diovan), 160 MG ORAL BID, (Reported) Verapamil Hcl* (Calan*), 240 MG ORAL DAILY, (Reported) [vitamin B12], 1 ML IM ONCE A WEEK, (Reported) Scheduled PRN Albuterol Sulfate* (Albuterol Sulfate Hhn*), 3 ML INH Q6H PRN for Shortness of Breath, (Reported) Tramadol Hcl* (Ultram*), 50 MG ORAL Q6H PRN for For Pain, (Reported) Patient History Limited by: medical condition History Provided By: Medical Record, PMD Healthcare decision maker Resuscitation status Advanced Directive on File Yes Past Medical/Surgical History Past Medical/Surgical History: (1) Acute respiratory failure (2) Confused (3) Dementia (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 difficile colitis (16) COPD (chronic obstructive pulmonary disease) (17) CAD (coronary artery disease) (18) Aspiration pneumonia (19) Afib (20) Acute encephalopathy (21) Pleural effusion (22) COPD with acute exacerbation Review of Systems ROS Narrative cannot obtain given medical condition Physical Exam General Appearance: mild distress Lines, tubes and drains: other HEENT: mucous membranes moist Neck: normal inspection Respiratory/Chest: decreased breath sounds Cardiovascular/Chest: normal rate Abdomen: soft, no organomegaly, no mass Extremities: normal inspection Skin Exam: warm/dry Neurologic: alert Last 24 Hour Vital Signs Date Time Temp Pulse Resp B/P (MAP) Pulse Ox O2 Delivery O2 Flow Rate FiO2 06/21/18 17:26 97 18 35 06/21/18 17:00 95 20 172/62 (98) 96 06/21/18 16:00 35 06/21/18 16:00 Mechanical Ventilator Mechanical Ventilator 06/21/18 16:00 98.9 101 20 169/94 (119) 96 06/21/18 15:22 105 19 35 06/21/18 15:17 Mechanical Ventilator 35 06/21/18 15:17 Mechanical Ventilator 35 06/21/18 15:00 103 20 124/92 (103) 96 06/21/18 14:00 90 20 162/69 (100) 97 06/21/18 13:23 90 20 35 06/21/18 13:00 95 20 140/56 (84) 97 06/21/18 12:00 Mechanical Ventilator Mechanical Ventilator 06/21/18 12:00 35 06/21/18 12:00 98.7 92 20 140/48 (78) 97 06/21/18 12:00 96 06/21/18 11:00 102 20 131/50 (77) 96 06/21/18 10:52 102 16 98 Mechanical Ventilator 35 06/21/18 10:50 102 20 35 06/21/18 10:43 101 20 98 Mechanical Ventilator 35 06/21/18 10:00 101 20 159/54 (89) 96 06/21/18 09:05 87 17 35 06/21/18 09:04 99 06/21/18 09:00 92 21 180/70 (106) 97 06/21/18 08:00 98.8 92 21 126/47 (73) 97 06/21/18 08:00 35 06/21/18 08:00 Mechanical Ventilator Mechanical Ventilator 06/21/18 08:00 92 06/21/18 07:16 98 16 99 Mechanical Ventilator 35 06/21/18 07:14 95 21 35 06/21/18 07:04 98 20 97 Mechanical Ventilator 35 06/21/18 07:00 96 21 147/63 (91) 97 06/21/18 06:00 85 18 111/40 (63) 97 06/21/18 05:14 97 19 35 06/21/18 05:00 98 21 145/55 (85) 96 06/21/18 04:00 35 06/21/18 04:00 98.6 97 21 149/55 (86) 98 06/21/18 04:00 Mechanical Ventilator Mechanical Ventilator 06/21/18 03:20 91 06/21/18 03:12 91 17 100 Mechanical Ventilator 35 06/21/18 03:01 81 16 35 06/21/18 03:01 80 16 99 Mechanical Ventilator 35 06/21/18 03:00 86 17 136/55 (82) 98 06/21/18 02:00 78 16 150/63 (92) 98 06/21/18 01:00 79 16 116/46 (69) 98 06/21/18 00:52 82 16 35 06/21/18 00:00 35 06/21/18 00:00 Mechanical Ventilator Mechanical Ventilator 06/21/18 00:00 98.2 82 16 117/56 (76) 97 06/20/18 23:36 78 16 100 Mechanical Ventilator 35 06/20/18 23:25 89 06/20/18 23:22 89 16 35 06/20/18 23:22 96 17 100 Mechanical Ventilator 35 06/20/18 23:00 86 17 118/41 (66) 98 06/20/18 22:30 83 22 139/55 (83) 97 06/20/18 22:00 98 19 158/90 (112) 98 06/20/18 21:30 99 18 35 06/20/18 21:00 91 24 135/48 (77) 96 06/20/18 20:00 98.5 90 17 130/44 (72) 98 06/20/18 20:00 35 06/20/18 20:00 Mechanical Ventilator Mechanical Ventilator 06/20/18 19:28 91 16 100 Mechanical Ventilator 35 06/20/18 19:18 96 17 35 06/20/18 19:18 96 17 100 Mechanical Ventilator 35 06/20/18 19:06 101 06/20/18 19:00 97 23 149/54 (85) 100 Intake and Output 06/20/18 06/21/18 19:00 07:00 Intake Total 1806 ml 1342 ml Output Total 1334 ml 1170 ml Balance 472 ml 172 ml Free Water 286 ml 266 ml IV Total 970 ml 150 ml Tube Feeding 550 ml 660 ml Other 266 ml Output Urine Total 894 ml 1070 ml Stool Total 440 ml 100 ml Laboratory Tests Test 06/21/18 05:00 White Blood Count 10.8 K/UL (4.8-10.8) Red Blood Count 3.82 M/UL (4.20-5.40) L Hemoglobin 8.7 G/DL (12.0-16.0) L Hematocrit 28.0 % (37.0-47.0) L Mean Corpuscular Volume 73 FL (80-99) L Mean Corpuscular Hemoglobin 22.8 PG (27.0-31.0) L Mean Corpuscular Hemoglobin Concent 31.1 G/DL (32.0-36.0) L Red Cell Distribution Width 18.6 % (11.6-14.8) H Platelet Count 242 K/UL (150-450) Mean Platelet Volume 7.7 FL (6.5-10.1) Neutrophils (%) (Auto) 66.7 % (45.0-75.0) Lymphocytes (%) (Auto) 18.4 % (20.0-45.0) L Monocytes (%) (Auto) 7.3 % (1.0-10.0) Eosinophils (%) (Auto) 6.8 % (0.0-3.0) H Basophils (%) (Auto) 0.8 % (0.0-2.0) Sodium Level 137 MMOL/L (136-145) Potassium Level 5.3 MMOL/L (3.5-5.1) H Chloride Level 103 MMOL/L (98-107) Carbon Dioxide Level 26 MMOL/L (21-32) Anion Gap 8 mmol/L (5-15) Blood Urea Nitrogen 84 mg/dL (7-18) H Creatinine 4.5 MG/DL (0.55-1.30) H Estimat Glomerular Filtration Rate mL/min (>60) Glucose Level 131 MG/DL (74-106) H Uric Acid 7.3 MG/DL (2.6-7.2) H Calcium Level 8.1 MG/DL (8.5-10.1) L Phosphorus Level 4.9 MG/DL (2.5-4.9) Magnesium Level 1.8 MG/DL (1.8-2.4) Total Bilirubin 0.2 MG/DL (0.2-1.0) Aspartate Amino Transf (AST/SGOT) 20 U/L (15-37) Alanine Aminotransferase (ALT/SGPT) 18 U/L (12-78) Alkaline Phosphatase 111 U/L (46-116) Pro-B-Type Natriuretic Peptide 2900 pg/mL (0-125) H Total Protein 6.6 G/DL (6.4-8.2) Albumin 2.5 G/DL (3.4-5.0) L Globulin 4.1 g/dL Albumin/Globulin Ratio 0.6 (1.0-2.7) L Random Vancomycin Level 19.3 ug/mL Height (Feet): 5 Height (Inches): 4.00 Weight (Pounds): 113 Medications Current Medications Medications (Trade) Dose Ordered Sig/Ann Route PRN Reason Start Time Stop Time Status Last Admin Dose Admin Acetaminophen (Tylenol) 650 mg Q4H PRN ORAL Mild Pain/Temp > 100.5 06/16/18 19:19 07/16/18 19:18 06/21/18 04:03 Acetylcysteine (Mucomyst) 100 mg Q4HRT HHN 06/16/18 23:00 07/09/18 21:29 06/21/18 10:53 Albuterol/ Ipratropium (Albuterol/ Ipratropium) 3 ml Q4HRT PRN HHN Shortness of Breath 06/20/18 04:45 06/25/18 04:44 06/21/18 10:53 Amiodarone HCl (Cordarone) 200 mg BID ORAL 06/17/18 09:00 07/17/18 08:59 06/21/18 18:13 Chlorhexidine Gluconate (Ymra-Hex 2%) 1 applic DAILY@2000 TOPIC 06/16/18 20:00 07/02/18 19:59 06/20/18 19:34 Ertapenem 0.5 gm/ Sodium Chloride 55 ml @ 110 mls/hr Q24H IVPB 06/20/18 17:30 06/25/18 17:29 06/20/18 17:52 Haloperidol Lactate (Haldol) 5 mg Q6H PRN IM Agitation 06/16/18 19:20 07/16/18 19:19 Heparin Sodium (Porcine) (Heparin 5000 units/ml) 5,000 units EVERY 12 HOURS SUBQ 06/16/18 21:00 06/27/18 08:59 06/21/18 10:10 Lorazepam (Ativan 2mg/ml 1ml) 0.5 mg Q3H PRN IV For Anxiety 06/16/18 19:20 06/23/18 19:19 06/20/18 20:36 Metoprolol Tartrate (Lopressor) 5 mg Q6H PRN IVP SBP > 125 06/16/18 19:20 07/16/18 19:19 Nitroglycerin (Ntg) 0.4 mg Q5M PRN SL Prn Chest Pain 06/16/18 19:20 06/27/18 13:29 Ondansetron HCl (Zofran) 4 mg Q6H PRN IVP Nausea & Vomiting 06/16/18 19:21 07/16/18 19:20 Pantoprazole (Protonix) 40 mg DAILY IVP 06/20/18 20:00 3/20/19 19:59 06/21/18 10:05 Polyethylene Glycol (Miralax) 17 gm BEDTIME ORAL 06/16/18 21:00 07/06/18 20:59 06/20/18 20:35 Polyethylene Glycol (Miralax) 17 gm DAILYPRN PRN ORAL Constipation 06/16/18 19:21 07/16/18 19:20 Quetiapine Fumarate (SEROquel) 25 mg Q6H PRN ORAL For Anxiety 06/16/18 19:21 07/16/18 19:20 06/18/18 10:06 Vancomycin HCl (Firvanq) 125 mg FOUR TIMES A DAY NG 06/19/18 13:00 06/26/18 12:59 06/21/18 18:13 Assessment/Plan Problem List: (1) Acute respiratory failure Assessment & Plan: respiratory insufficiency requiring prolonged ventilatory support unable to wean from vent on multiple occasions trach indicated and recommended discussed with patients Son / POA today consent obtained will schedule soon thank you ICD Codes: J96.00 - Acute respiratory failure, unspecified whether with hypoxia or hypercapnia SNOMED: [id number] Christiano Garcia Jun 21, 2018 18:47
[2018-06-21] MEDS: Ertapenem 0.5 GM in NS 55 ML IVPB SCH (19:00)
--- NOTE | 2018-06-21 19:03 | General Progress Note ---
Assessment/Plan Status: not improved Assessment/Plan This is an 87-year-old female admitted with chronic obstructive pulmonary disease exacerbation, right lower lobe infiltrate/pneumonia with altered mental status and acute kidney injury. The patient will be admitted to [facility] with the following medical problems. 1. Chronic obstructive pulmonary disease exacerbation and pneumonia. The patient has been seen by Pulmonary. Infectious Disease has been consulted, pancultured. IV antibiotics per ID. Continue with BiPAP and suction p.r.n. Transition to Venturi-mask when stable. 2. Acute kidney injury. We will monitor I's and O's, gentle intravenous fluids. Repeat a BMP in a.m. Consider Nephrology consult. 3. History of chronic atrial fibrillation. Continue with amiodarone. The patient is in sinus rhythm at this time. 4. History of hypertension. Continue with amlodipine and hold for systolic blood pressure less than 110. 5. Altered mental status, most likely from above conditions. We will keep n.p.o. except for medications and start IV fluids. 6. DVT prophylaxis with heparin subcutaneous and SCDs. 7. The patient is Full Code per policy. We will discuss with the family. 8. hypokalmia 9. Anemia 10. CHf acute on chronic 11. leucocytosis 12. ARF? ATN 13. C dif positive Plan: - now intubated in icu - continue respiratory support - consider repeat Lasix today - aggressive pulmonary suction - HD on hold as patient putting out better urine and createnine is improving - antibiotics per ID - on oral vanco - am labs - weaning off vent per pulmonary - Gi prophylaxis with protonix iv 40 mg daily - possible trach this week discussed with nurse and daughters at bedside Subjective Date patient seen: Jun 21, 2018 ROS Limited/Unobtainable: Yes Allergies: Coded Allergies: Mushroom (Verified Allergy, Severe, 05/28/18) MORPHINE (Unverified Allergy, Intermediate, Itching, 01/04/15) PENICILLINS (Unverified Allergy, Intermediate, Hives, 01/04/15) CELECOXIB (Verified Allergy, Mild, 01/15/09) Subjective patient is now reintubated, in renal failure, HD on hold as making better urine today, C dif positive on ngt vanco Objective Last 24 Hour Vital Signs Date Time Temp Pulse Resp B/P (MAP) Pulse Ox O2 Delivery O2 Flow Rate FiO2 06/21/18 17:26 97 18 35 06/21/18 17:00 95 20 172/62 (98) 96 06/21/18 16:00 35 06/21/18 16:00 Mechanical Ventilator Mechanical Ventilator 06/21/18 16:00 98.9 101 20 169/94 (119) 96 06/21/18 15:22 105 19 35 06/21/18 15:17 Mechanical Ventilator 35 06/21/18 15:17 Mechanical Ventilator 35 06/21/18 15:00 103 20 124/92 (103) 96 06/21/18 14:00 90 20 162/69 (100) 97 06/21/18 13:23 90 20 35 06/21/18 13:00 95 20 140/56 (84) 97 06/21/18 12:00 Mechanical Ventilator Mechanical Ventilator 06/21/18 12:00 35 06/21/18 12:00 98.7 92 20 140/48 (78) 97 06/21/18 12:00 96 06/21/18 11:00 102 20 131/50 (77) 96 06/21/18 10:52 102 16 98 Mechanical Ventilator 35 06/21/18 10:50 102 20 35 06/21/18 10:43 101 20 98 Mechanical Ventilator 35 06/21/18 10:00 101 20 159/54 (89) 96 06/21/18 09:05 87 17 35 06/21/18 09:04 99 06/21/18 09:00 92 21 180/70 (106) 97 06/21/18 08:00 98.8 92 21 126/47 (73) 97 06/21/18 08:00 35 06/21/18 08:00 Mechanical Ventilator Mechanical Ventilator 06/21/18 08:00 92 06/21/18 07:16 98 16 99 Mechanical Ventilator 35 06/21/18 07:14 95 21 35 06/21/18 07:04 98 20 97 Mechanical Ventilator 35 06/21/18 07:00 96 21 147/63 (91) 97 06/21/18 06:00 85 18 111/40 (63) 97 06/21/18 05:14 97 19 35 06/21/18 05:00 98 21 145/55 (85) 96 06/21/18 04:00 35 06/21/18 04:00 98.6 97 21 149/55 (86) 98 06/21/18 04:00 Mechanical Ventilator Mechanical Ventilator 06/21/18 03:20 91 06/21/18 03:12 91 17 100 Mechanical Ventilator 35 06/21/18 03:01 81 16 35 06/21/18 03:01 80 16 99 Mechanical Ventilator 35 06/21/18 03:00 86 17 136/55 (82) 98 06/21/18 02:00 78 16 150/63 (92) 98 06/21/18 01:00 79 16 116/46 (69) 98 06/21/18 00:52 82 16 35 06/21/18 00:00 35 06/21/18 00:00 Mechanical Ventilator Mechanical Ventilator 06/21/18 00:00 98.2 82 16 117/56 (76) 97 06/20/18 23:36 78 16 100 Mechanical Ventilator 35 06/20/18 23:25 89 06/20/18 23:22 89 16 35 06/20/18 23:22 96 17 100 Mechanical Ventilator 35 06/20/18 23:00 86 17 118/41 (66) 98 06/20/18 22:30 83 22 139/55 (83) 97 06/20/18 22:00 98 19 158/90 (112) 98 06/20/18 21:30 99 18 35 06/20/18 21:00 91 24 135/48 (77) 96 06/20/18 20:00 98.5 90 17 130/44 (72) 98 06/20/18 20:00 35 06/20/18 20:00 Mechanical Ventilator Mechanical Ventilator 06/20/18 19:28 91 16 100 Mechanical Ventilator 35 06/20/18 19:18 96 17 35 06/20/18 19:18 96 17 100 Mechanical Ventilator 35 06/20/18 19:06 101 Intake and Output 06/20/18 06/21/18 19:00 07:00 Intake Total 1806 ml 1342 ml Output Total 1334 ml 1170 ml Balance 472 ml 172 ml Free Water 286 ml 266 ml IV Total 970 ml 150 ml Tube Feeding 550 ml 660 ml Other 266 ml Output Urine Total 894 ml 1070 ml Stool Total 440 ml 100 ml Laboratory Tests 06/21/18 05:00: White Blood Count 10.8, Red Blood Count 3.82L, Hemoglobin 8.7L, Hematocrit 28.0L , Mean Corpuscular Volume 73L, Mean Corpuscular Hemoglobin 22.8L, Mean Corpuscular Hemoglobin Concent 31.1L, Red Cell Distribution Width 18.6H, Platelet Count 242, Mean Platelet Volume 7.7, Neutrophils (%) (Auto) 66.7, Lymphocytes (%) (Auto) 18.4L, Monocytes (%) (Auto) 7.3, Eosinophils (%) (Auto) 6.8H, Basophils (%) (Auto) 0.8, Sodium Level 137, Potassium Level 5.3H, Chloride Level 103, Carbon Dioxide Level 26, Anion Gap 8, Blood Urea Nitrogen 84H, Creatinine 4.5H, Estimat Glomerular Filtration Rate , Glucose Level 131H, Uric Acid 7.3H, Calcium Level 8.1L, Phosphorus Level 4.9, Magnesium Level 1.8, Total Bilirubin 0.2, Aspartate Amino Transf (AST/SGOT) 20, Alanine Aminotransferase (ALT/SGPT) 18, Alkaline Phosphatase 111, Pro-B-Type Natriuretic Peptide 2900H, Total Protein 6.6, Albumin 2.5L, Globulin 4.1, Albumin/Globulin Ratio 0.6L, Random Vancomycin Level 19.3 Height (Feet): 5 Height (Inches): 4.00 Weight (Pounds): 113 General Appearance: moderate distress EENT: PERRL/EOMI, pharynx normal Neck: non-tender, supple Cardiovascular: normal rate, regular rhythm, no gallop/murmur, no JVD Respiratory/Chest: decreased breath sounds Abdomen: non tender, soft, no mass Extremities: non-tender, normal inspection, no calf tenderness Edema: no edema noted Arm (L), no edema noted Arm (R), no edema noted Leg (L), no edema noted Leg (R), no edema noted Pedal (L), no edema noted Pedal (R), no edema noted Generalized Neurologic: alert Skin: warm/dry Lymphatic: normal anterior cervical (L), normal anterior cervical (R), normal posterior cervical (L), normal posterior cervical (R), normal submandibular (L) , normal submandibular (R), normal supraclavicular (L), normal supraclavicular ( R), normal axillary (L), normal axillary (R), normal inguinal (L), normal inguinal (R), normal other Cruz Valderrama MD Jun 21, 2018 19:03
--- NOTE | 2018-06-21 19:30 | NUR ---
NURSE NOTES: Received from MARGY Lambert. Noted patient awake and alert. Patient opens eyes spontaneously and tracks with her eyes, follows some commands and does not appear in any acute distress. Patient is mechanically ventilated with 7.5 ETT 23 at the lip with vent settings AC 16, TV 400, FIO2 35% Peep 5. Oral care was performed. Patient has a rectal tube draining liquid brown stool to gravity. Patient has an NGT in the R Nares running Glucerna 1.5 at 55 ml/hr which is goal. Residual checked. Patient has Sinclair catheter. Patient has a MILY picc asymptomatic and patent. Noted BL soft wrist restraints. Pulses are palpable and skin is intact. Safety measures are in place with bed locked in the lowest position with HOB elevated and side rails up x 3. Will continue to monitor and follow plan of care
--- NOTE | 2018-06-21 19:31 | NUR ---
NURSE NOTES: Juancarlos arrived to the unit at 1830 and was hung late. Was due at 1730.
--- NOTE | 2018-06-21 19:45 | NUR ---
HAND-OFF: Report given to MARGY Goff. VSS and patient is not in any acute distress.
[2018-06-21] MEDS: Dyna-Hex 2% Top Sol 2oz TOPIC SCH (20:25)
[2018-06-21] MEDS: Metoprolol 5mg/5ml Inj IVP PRN (20:28)
[2018-06-21] MEDS: Miralax 17gm pkt ORAL SCH (20:29)
[2018-06-22] VITALS (24 sets, daily range): BP systolic 116–178; BP diastolic 45–86
[2018-06-22] MEDS: Albuterol/Ipratropium 3ml neb HHN PRN ×6 (05:16→23:19)
[2018-06-22] MEDS: Acetylcysteine 20% Soln 4ml HHN SCH ×2 (05:16→07:34)
[2018-06-22] MEDS: Metoprolol 5mg/5ml Inj IVP PRN ×2 (05:58→15:26)
[2018-06-22 06:22] LABS: BASOPHILS % (AUTO) 0.8 % (0.0-2.0); EOSINOPHILS % (AUTO) 5.5 % (0.0-3.0); HEMATOCRIT 28.3 % (37.0-47.0); HEMOGLOBIN 8.7 G/DL (12.0-16.0); LYMPHOCYTES % (AUTO) 16.4 % (20.0-45.0); MEAN CORPUSCULAR VOLUME 74 FL (80-99); MONOCYTES % (AUTO) 6.8 % (1.0-10.0); NEUTROPHILS % (AUTO) 70.5 % (45.0-75.0); PLATELET COUNT 223 K/UL (150-450); RED BLOOD COUNT 3.84 M/UL (4.20-5.40); RED CELL DISTRIBUTION WIDTH 18.8 % (11.6-14.8); WHITE BLOOD COUNT 11.4 K/UL (4.8-10.8)
[2018-06-22 06:56] LABS: ANION GAP 8 mmol/L (5-15); BLOOD UREA NITROGEN 89 mg/dL (7-18); CALCIUM 8.5 MG/DL (8.5-10.1); CARBON DIOXIDE 27 MMOL/L (21-32); CHLORIDE 104 MMOL/L (98-107); CREATININE 4.2 MG/DL (0.55-1.30); PHOSPHORUS 4.7 MG/DL (2.5-4.9); SODIUM 139 MMOL/L (136-145)
--- NOTE | 2018-06-22 07:09 | NUR ---
NURSE NOTES: Pt's potassium 6.0. Called and left message with Dr. Jimenez. Updated RNPaula Lambert.
--- NOTE | 2018-06-22 07:12 | NUR ---
HAND-OFF: Report given to MARGY Lambert. Patient stable at hand-off.
[2018-06-22 07:17] LABS: ALANINE AMINOTRANSFERASE 21 U/L (12-78); ALBUMIN 2.5 G/DL (3.4-5.0); ALKALINE PHOSPHATASE 112 U/L (46-116); ASPARTATE AMINO TRANSFERASE 23 U/L (15-37); BILIRUBIN,DIRECT < 0.1 MG/DL (0.0-0.3); BILIRUBIN,TOTAL 0.2 MG/DL (0.2-1.0)
--- NOTE | 2018-06-22 07:17 | NUR ---
NURSE NOTES: Patient received from MARGY Goff. Patient observed to be awake, alert and restless. Patient does not appear in any acute distress. Patient opens her eyes spontaneously, tracks with her eyes, follows some commands. Patient is being monitored on the rn cardiac cath. VSS. Patient is mechanically ventilated with 7.5 ETT 23 at the lipline with vent settings AC 16, TV 400, FIO2 35% +5. Upon auscultation, patient has clear lung sounds with diminished at the bases. Oral care was performed. Belly sounds are hypoactive in all four quadrants. Patient has a rectal tube draining liquid brown stool to gravity. Patient has an NGT in the R Nares running Glucerna 1.5 at 55 ml/hr which is goal. Residual was checked with no residual and a 100 ml flush was given. Patient has Sinclair catheter draining yellow urine to gravity. Patient has a MILY picc that is asymptomatic and patent in one port and the other is sluggish. Patient is very impulsive pulling at lines and ETT. BL soft wrist restraints are placed. Pulses are palpable and skin is intact. Safety measures are in place with bed locked in the lowest position with HOB elevated and side rails up x 3. Will continue to monitor and follow plan of care
--- NOTE | 2018-06-22 07:28 | NUR ---
RESPIRATORY NOTE: PT. RECEIVED STABLE ON AC, 16, 400, 35%, +5. ALARMS ON AND AUDIBLE. BILATERAL SOFT WRIST RESTRAINS SECURELY IN PLACE. VENT CIRCUIT SECURE AND OUT OF THE WAY. NO S/S OF RESPIRATORY DISTRESS NOTED AST THIS TIME. WILL CONTINUE TO MONITOR.
--- NOTE | 2018-06-22 08:50 | NUR ---
NURSE NOTES: Called and left message for Dr Jimenez with report of original 6.0 K+ and repeat of 6.4 K. Waiting for response of add'l orders.
--- NOTE | 2018-06-22 08:54 | NUR ---
NURSE NOTES: Dr Jimenez assessed patient bedside. Gave orders to change TF to Nepro from Gluc. Also per MD, gave order for Kayexalate 45 gms per GT for hyperK+. Orders were entered. Will continue to monitor and follow MD plan of care.
[2018-06-22] MEDS: Heparin 5000 units/ml inj SUBQ SCH ×2 (09:00→20:41)
[2018-06-22] MEDS ORDERED: Sodium Polystyrene Sulfonate 15gm Powder NG SCH (09:00)
[2018-06-22] MEDS: Vancomycin oral 125mg/2.5ml NG SCH ×4 (09:09→20:36)
[2018-06-22] MEDS: Pantoprazole Inj IVP SCH (09:10)
[2018-06-22] MEDS: Amiodarone 200mg tab ORAL SCH ×2 (09:11→17:58)
--- NOTE | 2018-06-22 09:33 | General Progress Note ---
Assessment/Plan Problem List: (1) COPD with acute exacerbation ICD Codes: J44.1 - Chronic obstructive pulmonary disease with (acute) exacerbation SNOMED: 444558047 (2) Pleural effusion ICD Codes: J90 - Pleural effusion, not elsewhere classified SNOMED: 22544723 (3) Afib ICD Codes: I48.91 - Unspecified atrial fibrillation SNOMED: 83963186 (4) CAD (coronary artery disease) ICD Codes: I25.10 - Atherosclerotic heart disease of [place] coronary artery without angina pectoris SNOMED: 55061196 (5) Respiratory failure ICD Codes: J96.90 - Respiratory failure, unspecified, unspecified whether with hypoxia or hypercapnia SNOMED: 478473817 (6) Failure to thrive SNOMED: 35328777 (7) Acute renal failure ICD Codes: N17.9 - Acute kidney failure, unspecified SNOMED: 70482096 (8) C. difficile colitis ICD Codes: A04.72 - Enterocolitis due to Clostridium difficile, not specified as recurrent SNOMED: 413094231 Assessment/Plan dc miralax add lactobacillus change NGTF to renal formula pending trach for tomorrow plan PEG for Wednesday Subjective ROS Limited/Unobtainable: No Allergies: Coded Allergies: Mushroom (Verified Allergy, Severe, 05/28/18) MORPHINE (Unverified Allergy, Intermediate, Itching, 01/04/15) PENICILLINS (Unverified Allergy, Intermediate, Hives, 01/04/15) CELECOXIB (Verified Allergy, Mild, 01/15/09) Objective Last 24 Hour Vital Signs Date Time Temp Pulse Resp B/P (MAP) Pulse Ox O2 Delivery O2 Flow Rate FiO2 06/22/18 07:28 85 17 35 06/22/18 07:00 86 21 162/77 (105) 96 06/22/18 06:00 79 25 140/58 (85) 97 06/22/18 05:58 87 137/54 06/22/18 05:16 86 18 35 06/22/18 05:00 88 20 137/54 (81) 98 06/22/18 04:00 84 17 100 Mechanical Ventilator 35 06/22/18 04:00 98.8 93 21 154/49 (84) 97 06/22/18 04:00 92 06/22/18 04:00 Mechanical Ventilator Mechanical Ventilator 2/20/19 04:00 35 06/22/18 03:50 85 17 98 Mechanical Ventilator 35 06/22/18 03:00 95 22 154/49 (84) 95 06/22/18 02:00 90 25 163/86 (111) 96 06/22/18 01:30 78 18 35 06/22/18 01:12 79 18 Mechanical Ventilator 06/22/18 01:00 81 17 160/60 (93) 97 06/22/18 00:00 79 06/22/18 00:00 Mechanical Ventilator Mechanical Ventilator 06/22/18 00:00 35 06/22/18 00:00 99.3 81 16 140/52 (81) 97 06/21/18 23:35 82 16 99 Mechanical Ventilator 35 06/21/18 23:30 79 18 35 06/21/18 23:22 80 16 97 Mechanical Ventilator 35 06/21/18 23:00 78 16 119/59 (79) 98 06/21/18 22:00 78 16 137/53 (81) 97 06/21/18 21:30 98 18 35 06/21/18 21:00 81 19 142/53 (82) 96 06/21/18 20:28 100 165/61 06/21/18 20:00 35 06/21/18 20:00 101 06/21/18 20:00 98.6 99 19 165/61 (95) 95 06/21/18 20:00 Mechanical Ventilator Mechanical Ventilator 06/21/18 19:36 Mechanical Ventilator 35 06/21/18 19:35 Mechanical Ventilator 35 06/21/18 19:30 99 18 35 06/21/18 19:00 100 22 169/61 (97) 95 06/21/18 18:00 101 22 157/79 (105) 96 06/21/18 17:26 97 18 35 06/21/18 17:00 95 20 172/62 (98) 96 06/21/18 16:00 35 06/21/18 16:00 Mechanical Ventilator Mechanical Ventilator 06/21/18 16:00 98.9 101 20 169/94 (119) 96 06/21/18 16:00 103 06/21/18 15:22 105 19 35 06/21/18 15:17 Mechanical Ventilator 35 06/21/18 15:17 Mechanical Ventilator 35 06/21/18 15:00 103 20 124/92 (103) 96 06/21/18 14:00 90 20 162/69 (100) 97 06/21/18 13:23 90 20 35 06/21/18 13:00 95 20 140/56 (84) 97 06/21/18 12:00 Mechanical Ventilator Mechanical Ventilator 06/21/18 12:00 35 06/21/18 12:00 98.7 92 20 140/48 (78) 97 06/21/18 12:00 96 06/21/18 11:00 102 20 131/50 (77) 96 06/21/18 10:52 102 16 98 Mechanical Ventilator 35 06/21/18 10:50 102 20 35 06/21/18 10:43 101 20 98 Mechanical Ventilator 35 06/21/18 10:00 101 20 159/54 (89) 96 Intake and Output 06/21/18 06/22/18 19:00 07:00 Intake Total 1335 ml 975 ml Output Total 1065 ml 1170 ml Balance 270 ml -195 ml IV Total 375 ml 55 ml Tube Feeding 660 ml 660 ml Other 300 ml 260 ml Output Urine Total 1065 ml 1020 ml Stool Total 150 ml Laboratory Tests 06/22/18 04:30: White Blood Count 11.4H, Red Blood Count 3.84L, Hemoglobin 8.7L, Hematocrit 28.3L, Mean Corpuscular Volume 74L, Mean Corpuscular Hemoglobin 22.7L, Mean Corpuscular Hemoglobin Concent 30.8L, Red Cell Distribution Width 18.8H, Platelet Count 223, Mean Platelet Volume 7.7, Neutrophils (%) (Auto) 70.5, Lymphocytes (%) (Auto) 16.4L, Monocytes (%) (Auto) 6.8, Eosinophils (%) (Auto) 5.5H, Basophils (%) (Auto) 0.8, Prothrombin Time 11.0, Prothromb Time International Ratio 1.0, Activated Partial Thromboplast Time 31, Sodium Level 139, Potassium Level 6.0*H, Chloride Level 104, Carbon Dioxide Level 27, Anion Gap 8, Blood Urea Nitrogen 89H, Creatinine 4.2H, Estimat Glomerular Filtration Rate , Glucose Level 121H, Calcium Level 8.5, Phosphorus Level 4.7, Magnesium Level 1.8, Total Bilirubin 0.2, Direct Bilirubin < 0.1, Aspartate Amino Transf ( AST/SGOT) 23, Alanine Aminotransferase (ALT/SGPT) 21, Alkaline Phosphatase 112, C-Reactive Protein, Quantitative 5.2H, Pro-B-Type Natriuretic Peptide 2826H, Total Protein 6.7, Albumin 2.5L, Random Vancomycin Level 18.0 06/22/18 07:50: Potassium Level 6.4*H Height (Feet): 5 Height (Inches): 4.00 Weight (Pounds): 118 General Appearance: confused EENT: normal ENT inspection Neck: supple Cardiovascular: normal rate Respiratory/Chest: decreased breath sounds Abdomen: normal bowel sounds, non tender, soft Extremities: non-tender Jacobo Acevedo MD Jun 22, 2018 09:33
--- NOTE | 2018-06-22 09:59 | General Progress Note ---
Assessment/Plan Status: progressing Assessment/Plan This is an 87-year-old female admitted with chronic obstructive pulmonary disease exacerbation, right lower lobe infiltrate/pneumonia with altered mental status and acute kidney injury. The patient will be admitted to [facility] with the following medical problems. 1. Chronic obstructive pulmonary disease exacerbation and pneumonia. The patient has been seen by Pulmonary. Infectious Disease has been consulted, pancultured. IV antibiotics per ID. Continue with BiPAP and suction p.r.n. Transition to Venturi-mask when stable. 2. Acute kidney injury. We will monitor I's and O's, gentle intravenous fluids. Repeat a BMP in a.m. Consider Nephrology consult. 3. History of chronic atrial fibrillation. Continue with amiodarone. The patient is in sinus rhythm at this time. 4. History of hypertension. Continue with amlodipine and hold for systolic blood pressure less than 110. 5. Altered mental status, most likely from above conditions. We will keep n.p.o. except for medications and start IV fluids. 6. DVT prophylaxis with heparin subcutaneous and SCDs. 7. The patient is Full Code per policy. We will discuss with the family. 8. hypokalmia 9. Anemia 10. CHf acute on chronic 11. leucocytosis 12. ARF? ATN 13. C dif positive 14. hyperkalemia 15. pleural effusion Plan: - now intubated in icu - continue respiratory support - consider repeat Lasix today - aggressive pulmonary suction - HD on hold as patient putting out better urine and createnine is improving - antibiotics per ID - on oral vanco - am labs - weaning off vent per pulmonary - Gi prophylaxis with protonix iv 40 mg daily - possible tracheostomy later today - s/p Kayexalate discussed with nurse Subjective Date patient seen: Jun 22, 2018 ROS Limited/Unobtainable: Yes Allergies: Coded Allergies: Mushroom (Verified Allergy, Severe, 05/28/18) MORPHINE (Unverified Allergy, Intermediate, Itching, 01/04/15) PENICILLINS (Unverified Allergy, Intermediate, Hives, 01/04/15) CELECOXIB (Verified Allergy, Mild, 01/15/09) Subjective patient is now reintubated, in renal failure, HD on hold as making better urine , C dif positive on ngt vanco, will have tracheostomy later today Objective Last 24 Hour Vital Signs Date Time Temp Pulse Resp B/P (MAP) Pulse Ox O2 Delivery O2 Flow Rate FiO2 06/22/18 07:28 85 17 35 06/22/18 07:00 86 21 162/77 (105) 96 06/22/18 06:00 79 25 140/58 (85) 97 06/22/18 05:58 87 137/54 06/22/18 05:16 86 18 35 06/22/18 05:00 88 20 137/54 (81) 98 06/22/18 04:00 84 17 100 Mechanical Ventilator 35 06/22/18 04:00 98.8 93 21 154/49 (84) 97 06/22/18 04:00 92 06/22/18 04:00 Mechanical Ventilator Mechanical Ventilator 06/22/18 04:00 35 06/22/18 03:50 85 17 98 Mechanical Ventilator 35 06/22/18 03:00 95 22 154/49 (84) 95 06/22/18 02:00 90 25 163/86 (111) 96 06/22/18 01:30 78 18 35 06/22/18 01:12 79 18 Mechanical Ventilator 06/22/18 01:00 81 17 160/60 (93) 97 06/22/18 00:00 79 06/22/18 00:00 Mechanical Ventilator Mechanical Ventilator 06/22/18 00:00 35 06/22/18 00:00 99.3 81 16 140/52 (81) 97 06/21/18 23:35 82 16 99 Mechanical Ventilator 35 06/21/18 23:30 79 18 35 06/21/18 23:22 80 16 97 Mechanical Ventilator 35 06/21/18 23:00 78 16 119/59 (79) 98 06/21/18 22:00 78 16 137/53 (81) 97 06/21/18 21:30 98 18 35 06/21/18 21:00 81 19 142/53 (82) 96 06/21/18 20:28 100 165/61 06/21/18 20:00 35 06/21/18 20:00 101 06/21/18 20:00 98.6 99 19 165/61 (95) 95 06/21/18 20:00 Mechanical Ventilator Mechanical Ventilator 06/21/18 19:36 Mechanical Ventilator 35 06/21/18 19:35 Mechanical Ventilator 35 06/21/18 19:30 99 18 35 06/21/18 19:00 100 22 169/61 (97) 95 06/21/18 18:00 101 22 157/79 (105) 96 06/21/18 17:26 97 18 35 06/21/18 17:00 95 20 172/62 (98) 96 06/21/18 16:00 35 06/21/18 16:00 Mechanical Ventilator Mechanical Ventilator 06/21/18 16:00 98.9 101 20 169/94 (119) 96 06/21/18 16:00 103 06/21/18 15:22 105 19 35 06/21/18 15:17 Mechanical Ventilator 35 06/21/18 15:17 Mechanical Ventilator 35 06/21/18 15:00 103 20 124/92 (103) 96 06/21/18 14:00 90 20 162/69 (100) 97 06/21/18 13:23 90 20 35 06/21/18 13:00 95 20 140/56 (84) 97 06/21/18 12:00 Mechanical Ventilator Mechanical Ventilator 06/21/18 12:00 35 06/21/18 12:00 98.7 92 20 140/48 (78) 97 06/21/18 12:00 96 06/21/18 11:00 102 20 131/50 (77) 96 06/21/18 10:52 102 16 98 Mechanical Ventilator 35 06/21/18 10:50 102 20 35 06/21/18 10:43 101 20 98 Mechanical Ventilator 35 06/21/18 10:00 101 20 159/54 (89) 96 Intake and Output 06/21/18 06/22/18 19:00 07:00 Intake Total 1335 ml 975 ml Output Total 1065 ml 1170 ml Balance 270 ml -195 ml IV Total 375 ml 55 ml Tube Feeding 660 ml 660 ml Other 300 ml 260 ml Output Urine Total 1065 ml 1020 ml Stool Total 150 ml Laboratory Tests 06/22/18 04:30: White Blood Count 11.4H, Red Blood Count 3.84L, Hemoglobin 8.7L, Hematocrit 28.3L, Mean Corpuscular Volume 74L, Mean Corpuscular Hemoglobin 22.7L, Mean Corpuscular Hemoglobin Concent 30.8L, Red Cell Distribution Width 18.8H, Platelet Count 223, Mean Platelet Volume 7.7, Neutrophils (%) (Auto) 70.5, Lymphocytes (%) (Auto) 16.4L, Monocytes (%) (Auto) 6.8, Eosinophils (%) (Auto) 5.5H, Basophils (%) (Auto) 0.8, Prothrombin Time 11.0, Prothromb Time International Ratio 1.0, Activated Partial Thromboplast Time 31, Sodium Level 139, Potassium Level 6.0*H, Chloride Level 104, Carbon Dioxide Level 27, Anion Gap 8, Blood Urea Nitrogen 89H, Creatinine 4.2H, Estimat Glomerular Filtration Rate , Glucose Level 121H, Calcium Level 8.5, Phosphorus Level 4.7, Magnesium Level 1.8, Total Bilirubin 0.2, Direct Bilirubin < 0.1, Aspartate Amino Transf ( AST/SGOT) 23, Alanine Aminotransferase (ALT/SGPT) 21, Alkaline Phosphatase 112, C-Reactive Protein, Quantitative 5.2H, Pro-B-Type Natriuretic Peptide 2826H, Total Protein 6.7, Albumin 2.5L, Random Vancomycin Level 18.0 06/22/18 07:50: Potassium Level 6.4*H Height (Feet): 5 Height (Inches): 4.00 Weight (Pounds): 118 General Appearance: no apparent distress, alert EENT: PERRL/EOMI, pharynx normal Neck: non-tender, supple Cardiovascular: normal rate, regular rhythm, no gallop/murmur, no JVD Respiratory/Chest: decreased breath sounds Extremities: non-tender, normal inspection, no calf tenderness Edema: no edema noted Arm (L), no edema noted Arm (R), no edema noted Leg (L), no edema noted Leg (R), no edema noted Pedal (L), no edema noted Pedal (R), no edema noted Generalized Neurologic: alert Skin: warm/dry Lymphatic: normal anterior cervical (L), normal anterior cervical (R), normal posterior cervical (L), normal posterior cervical (R), normal submandibular (L) , normal submandibular (R), normal supraclavicular (L), normal supraclavicular ( R), normal axillary (L), normal axillary (R), normal inguinal (L), normal inguinal (R), normal other Cruz Valderrama MD Jun 22, 2018 09:59
--- NOTE | 2018-06-22 12:01 | NUR ---
NURSE NOTES: Patient is awake and very restless. Patient does not appear in any acute distress. Patient is being monitored on the cardiac specialist. VSS. Patient is mechanically ventilated with 7.5 ETT with vent settings AC 16, TV 400, FIO2 35% +5. Oral care was performed and patient suctioned. Patient has a rectal tube draining liquid brown stool to gravity. Patient has an NGT however patient is NPO. Patient has Sinclair catheter draining yellow urine to gravity. Patient has a MILY picc that is saline locked. Patient is very impulsive pulling at lines and ETT. BL soft wrist restraints are placed. Pulses are palpable and skin is intact. Safety measures are in place with bed locked in the lowest position with HOB elevated and side rails up x 3. Will continue to monitor and follow plan of care
--- NOTE | 2018-06-22 13:37 | NUR ---
NURSE NOTES: Lab called to advise that repeat K+ is now 6.0. Informed Dr Garcia who happened to be on the ICU unit at the time. Per his MD orders, NPO after midnight for tracheostomy tomorrow. Also left message at Dr Jimenez's office regarding lab result. Will await any orders from Kathy COSTA.
--- NOTE | 2018-06-22 15:08 | Surgery Progress Note ---
Surgery Progress Note Subjective Additional Comments no acute events. unable to wean from vent. Objective Last 24 Hour Vital Signs Date Time Temp Pulse Resp B/P (MAP) Pulse Ox O2 Delivery O2 Flow Rate FiO2 06/22/18 12:48 86 16 35 06/22/18 12:00 35 06/22/18 12:00 98.6 79 16 134/52 (79) 100 06/22/18 12:00 Mechanical Ventilator Mechanical Ventilator 06/22/18 11:03 88 16 100 Mechanical Ventilator 35 06/22/18 11:00 81 16 143/45 (77) 100 06/22/18 10:54 84 16 35 06/22/18 10:54 84 16 97 Mechanical Ventilator 35 06/22/18 10:00 84 24 166/55 (92) 97 06/22/18 09:04 93 22 35 06/22/18 09:00 92 25 168/63 (98) 95 06/22/18 08:00 35 06/22/18 08:00 Mechanical Ventilator Mechanical Ventilator 06/22/18 08:00 98.9 84 21 156/51 (86) 97 06/22/18 08:00 84 06/22/18 07:38 88 20 96 Mechanical Ventilator 35 06/22/18 07:28 85 17 96 Mechanical Ventilator 35 06/22/18 07:28 85 17 35 06/22/18 07:00 86 21 162/77 (105) 96 06/22/18 06:00 79 25 140/58 (85) 97 06/22/18 05:58 87 137/54 06/22/18 05:16 86 18 35 06/22/18 05:00 88 20 137/54 (81) 98 06/22/18 04:00 84 17 100 Mechanical Ventilator 35 06/22/18 04:00 98.8 93 21 154/49 (84) 97 06/22/18 04:00 92 06/22/18 04:00 Mechanical Ventilator Mechanical Ventilator 06/22/18 04:00 35 06/22/18 03:50 85 17 98 Mechanical Ventilator 35 06/22/18 03:00 95 22 154/49 (84) 95 06/22/18 02:00 90 25 163/86 (111) 96 06/22/18 01:30 78 18 35 06/22/18 01:12 79 18 Mechanical Ventilator 06/22/18 01:00 81 17 160/60 (93) 97 06/22/18 00:00 79 06/22/18 00:00 Mechanical Ventilator Mechanical Ventilator 06/22/18 00:00 35 06/22/18 00:00 99.3 81 16 140/52 (81) 97 06/21/18 23:35 82 16 99 Mechanical Ventilator 35 06/21/18 23:30 79 18 35 06/21/18 23:22 80 16 97 Mechanical Ventilator 35 06/21/18 23:00 78 16 119/59 (79) 98 06/21/18 22:00 78 16 137/53 (81) 97 06/21/18 21:30 98 18 35 06/21/18 21:00 81 19 142/53 (82) 96 06/21/18 20:28 100 165/61 06/21/18 20:00 35 06/21/18 20:00 101 06/21/18 20:00 98.6 99 19 165/61 (95) 95 06/21/18 20:00 Mechanical Ventilator Mechanical Ventilator 06/21/18 19:36 Mechanical Ventilator 35 06/21/18 19:35 Mechanical Ventilator 35 06/21/18 19:30 99 18 35 06/21/18 19:00 100 22 169/61 (97) 95 06/21/18 18:00 101 22 157/79 (105) 96 06/21/18 17:26 97 18 35 06/21/18 17:00 95 20 172/62 (98) 96 06/21/18 16:00 35 06/21/18 16:00 Mechanical Ventilator Mechanical Ventilator 06/21/18 16:00 98.9 101 20 169/94 (119) 96 06/21/18 16:00 103 06/21/18 15:22 105 19 35 06/21/18 15:17 Mechanical Ventilator 35 06/21/18 15:17 Mechanical Ventilator 35 I&O Intake and Output 06/21/18 06/22/18 19:00 07:00 Intake Total 1335 ml 975 ml Output Total 1065 ml 1170 ml Balance 270 ml -195 ml IV Total 375 ml 55 ml Tube Feeding 660 ml 660 ml Other 300 ml 260 ml Output Urine Total 1065 ml 1020 ml Stool Total 150 ml Dressing: other Wound: other Drains: other Cardiovascular: RSR Respiratory: decreased breath sounds Abdomen: soft, present bowel sounds, non-distended Extremities: no cyanosis Laboratory Tests Test 06/22/18 04:30 06/22/18 07:50 06/22/18 13:09 White Blood Count 11.4 K/UL (4.8-10.8) H Red Blood Count 3.84 M/UL (4.20-5.40) L Hemoglobin 8.7 G/DL (12.0-16.0) L Hematocrit 28.3 % (37.0-47.0) L Mean Corpuscular Volume 74 FL (80-99) L Mean Corpuscular Hemoglobin 22.7 PG (27.0-31.0) L Mean Corpuscular Hemoglobin Concent 30.8 G/DL (32.0-36.0) L Red Cell Distribution Width 18.8 % (11.6-14.8) H Platelet Count 223 K/UL (150-450) Mean Platelet Volume 7.7 FL (6.5-10.1) Neutrophils (%) (Auto) 70.5 % (45.0-75.0) Lymphocytes (%) (Auto) 16.4 % (20.0-45.0) L Monocytes (%) (Auto) 6.8 % (1.0-10.0) Eosinophils (%) (Auto) 5.5 % (0.0-3.0) H Basophils (%) (Auto) 0.8 % (0.0-2.0) Prothrombin Time 11.0 SEC (9.30-11.50) Prothromb Time International Ratio 1.0 (0.9-1.1) Activated Partial Thromboplast Time 31 SEC (23-33) Sodium Level 139 MMOL/L (136-145) Potassium Level 6.0 MMOL/L (3.5-5.1) *H 6.4 MMOL/L (3.5-5.1) *H 6.0 MMOL/L (3.5-5.1) *H Chloride Level 104 MMOL/L (98-107) Carbon Dioxide Level 27 MMOL/L (21-32) Anion Gap 8 mmol/L (5-15) Blood Urea Nitrogen 89 mg/dL (7-18) H Creatinine 4.2 MG/DL (0.55-1.30) H Estimat Glomerular Filtration Rate mL/min (>60) Glucose Level 121 MG/DL (74-106) H Calcium Level 8.5 MG/DL (8.5-10.1) Phosphorus Level 4.7 MG/DL (2.5-4.9) Magnesium Level 1.8 MG/DL (1.8-2.4) Total Bilirubin 0.2 MG/DL (0.2-1.0) Direct Bilirubin < 0.1 MG/DL (0.0-0.3) Aspartate Amino Transf (AST/SGOT) 23 U/L (15-37) Alanine Aminotransferase (ALT/SGPT) 21 U/L (12-78) Alkaline Phosphatase 112 U/L (46-116) C-Reactive Protein, Quantitative 5.2 mg/dL (0.00-0.90) H Pro-B-Type Natriuretic Peptide 2826 pg/mL (0-125) H Total Protein 6.7 G/DL (6.4-8.2) Albumin 2.5 G/DL (3.4-5.0) L Random Vancomycin Level 18.0 ug/mL Plan Problems: (1) Acute respiratory failure Assessment & Plan: respiratory insufficiency requiring prolonged ventilatory support unable to wean from vent on multiple occasions trach indicated and recommended discussed with patients Son / POA today consent obtained will schedule for tomorrow thank you Christiano Garcia Jun 22, 2018 15:08
--- NOTE | 2018-06-22 15:14 | Nephrology Progress Note ---
Assessment/Plan Problem List: (1) Acute renal failure Assessment: Cr lowering (2) Anuria (3) Acute respiratory failure Assessment: on vent (4) Dementia (5) Afib Assessment Kayexelate once for high K Urine out put rising Cr lowering other conditions: (1) Acute respiratory failure (2) Aspiration pneumonia (3) Acute encephalopathy (4) Pleural effusion (5) COPD (chronic obstructive pulmonary disease) (6) CAD (coronary artery disease) (7) Dementia Plan Cr llowering- Urine out put higher monitor vanco level family agree with HD . but no need for HD at this time intubated now ? Trach?? K and Phos and Mag as needed Anemia porter Adjust BP meds fu Lytes Gastric support per orders Subjective ROS Limited/Unobtainable: Yes Objective Objective Last 24 Hour Vital Signs Date Time Temp Pulse Resp B/P (MAP) Pulse Ox O2 Delivery O2 Flow Rate FiO2 06/22/18 15:06 105 20 97 Mechanical Ventilator 35 06/22/18 12:48 86 16 35 06/22/18 12:00 35 06/22/18 12:00 98.6 79 16 134/52 (79) 100 06/22/18 12:00 Mechanical Ventilator Mechanical Ventilator 06/22/18 11:03 88 16 100 Mechanical Ventilator 35 06/22/18 11:00 81 16 143/45 (77) 100 06/22/18 10:54 84 16 35 06/22/18 10:54 84 16 97 Mechanical Ventilator 35 06/22/18 10:00 84 24 166/55 (92) 97 06/22/18 09:04 93 22 35 06/22/18 09:00 92 25 168/63 (98) 95 06/22/18 08:00 35 06/22/18 08:00 Mechanical Ventilator Mechanical Ventilator 06/22/18 08:00 98.9 84 21 156/51 (86) 97 06/22/18 08:00 84 06/22/18 07:38 88 20 96 Mechanical Ventilator 35 06/22/18 07:28 85 17 96 Mechanical Ventilator 35 06/22/18 07:28 85 17 35 06/22/18 07:00 86 21 162/77 (105) 96 06/22/18 06:00 79 25 140/58 (85) 97 06/22/18 05:58 87 137/54 06/22/18 05:16 86 18 35 2/20/19 05:00 88 20 137/54 (81) 98 06/22/18 04:00 84 17 100 Mechanical Ventilator 35 06/22/18 04:00 98.8 93 21 154/49 (84) 97 06/22/18 04:00 92 06/22/18 04:00 Mechanical Ventilator Mechanical Ventilator 06/22/18 04:00 35 06/22/18 03:50 85 17 98 Mechanical Ventilator 35 06/22/18 03:00 95 22 154/49 (84) 95 06/22/18 02:00 90 25 163/86 (111) 96 06/22/18 01:30 78 18 35 06/22/18 01:12 79 18 Mechanical Ventilator 06/22/18 01:00 81 17 160/60 (93) 97 06/22/18 00:00 79 06/22/18 00:00 Mechanical Ventilator Mechanical Ventilator 06/22/18 00:00 35 06/22/18 00:00 99.3 81 16 140/52 (81) 97 06/21/18 23:35 82 16 99 Mechanical Ventilator 35 06/21/18 23:30 79 18 35 06/21/18 23:22 80 16 97 Mechanical Ventilator 35 06/21/18 23:00 78 16 119/59 (79) 98 06/21/18 22:00 78 16 137/53 (81) 97 06/21/18 21:30 98 18 35 06/21/18 21:00 81 19 142/53 (82) 96 06/21/18 20:28 100 165/61 06/21/18 20:00 35 06/21/18 20:00 101 06/21/18 20:00 98.6 99 19 165/61 (95) 95 06/21/18 20:00 Mechanical Ventilator Mechanical Ventilator 06/21/18 19:36 Mechanical Ventilator 35 06/21/18 19:35 Mechanical Ventilator 35 06/21/18 19:30 99 18 35 06/21/18 19:00 100 22 169/61 (97) 95 06/21/18 18:00 101 22 157/79 (105) 96 06/21/18 17:26 97 18 35 06/21/18 17:00 95 20 172/62 (98) 96 06/21/18 16:00 35 06/21/18 16:00 Mechanical Ventilator Mechanical Ventilator 06/21/18 16:00 98.9 101 20 169/94 (119) 96 06/21/18 16:00 103 06/21/18 15:22 105 19 35 06/21/18 15:17 Mechanical Ventilator 35 06/21/18 15:17 Mechanical Ventilator 35 Intake and Output 06/21/18 06/22/18 19:00 07:00 Intake Total 1335 ml 975 ml Output Total 1065 ml 1170 ml Balance 270 ml -195 ml IV Total 375 ml 55 ml Tube Feeding 660 ml 660 ml Other 300 ml 260 ml Output Urine Total 1065 ml 1020 ml Stool Total 150 ml Laboratory Tests 06/22/18 04:30: White Blood Count 11.4H, Red Blood Count 3.84L, Hemoglobin 8.7L, Hematocrit 28.3L, Mean Corpuscular Volume 74L, Mean Corpuscular Hemoglobin 22.7L, Mean Corpuscular Hemoglobin Concent 30.8L, Red Cell Distribution Width 18.8H, Platelet Count 223, Mean Platelet Volume 7.7, Neutrophils (%) (Auto) 70.5, Lymphocytes (%) (Auto) 16.4L, Monocytes (%) (Auto) 6.8, Eosinophils (%) (Auto) 5.5H, Basophils (%) (Auto) 0.8, Prothrombin Time 11.0, Prothromb Time International Ratio 1.0, Activated Partial Thromboplast Time 31, Sodium Level 139, Potassium Level 6.0*H, Chloride Level 104, Carbon Dioxide Level 27, Anion Gap 8, Blood Urea Nitrogen 89H, Creatinine 4.2H, Estimat Glomerular Filtration Rate , Glucose Level 121H, Calcium Level 8.5, Phosphorus Level 4.7, Magnesium Level 1.8, Total Bilirubin 0.2, Direct Bilirubin < 0.1, Aspartate Amino Transf ( AST/SGOT) 23, Alanine Aminotransferase (ALT/SGPT) 21, Alkaline Phosphatase 112, C-Reactive Protein, Quantitative 5.2H, Pro-B-Type Natriuretic Peptide 2826H, Total Protein 6.7, Albumin 2.5L, Random Vancomycin Level 18.0 06/22/18 07:50: Potassium Level 6.4*H 06/22/18 13:09: Potassium Level 6.0*H Height (Feet): 5 Height (Inches): 4.00 Weight (Pounds): 118 General Appearance: no apparent distress EENT: other - vented Cardiovascular: tachycardia Respiratory/Chest: decreased breath sounds Abdomen: distended Objective no change Kendrick Jimenez MD Jun 22, 2018 15:14
--- NOTE | 2018-06-22 15:17 | Anethesia Preoperative Eval ---
Anesthesia Pre-op PMH/ROS General Date of Evaluation: Jun 22, 2018 Anesthesiologist: Nile ASA Score: ASA 3 Mallampati Score Class I : Soft palate, uvula, fauces, pillars visible Class II: Soft palate, uvula, fauces visible Class III: Soft palate, base of uvula visible Class IV: Only hard plate visible Mallampati Classification: Class III Surgeon: Jose Diagnosis: Respiratory failure Surgical Procedure: Trach Anesthesia History: none Family History: no anesthesia problems Allergies: Coded Allergies: Mushroom (Verified Allergy, Severe, 05/28/18) MORPHINE (Unverified Allergy, Intermediate, Itching, 01/04/15) PENICILLINS (Unverified Allergy, Intermediate, Hives, 01/04/15) CELECOXIB (Verified Allergy, Mild, 01/15/09) Medications: see eMAR Patient NPO?: Yes NPO Date: Jun 22, 2018 Past Medical History Cardiovascular: Reports: HTN, arrhythmia - afib, other - CHF; Denies: CAD, [place], valve dz Pulmonary: Reports: COPD, other - acute respiratory failure; Denies: asthma, SEE Gastrointestinal/Genitourinary: Reports: GERD, other - acute on chronic renal failure, ; Denies: CRI, ESRD Neurologic/Psychiatric: Reports: dementia, other; Denies: CVA, depression/anxiety, TIA Endocrine: Denies: DM, hypothyroidism, steroids, other HEENT: Denies: cataract (L), cataract (R), glaucoma, WALES (L), WALES (R), other Hematology/Immune: Denies: anemia, DVT, bleeding disorder, other Musculoskeletal/Integumentary: Denies: OA, RA, DJD, DDD, edema, other PSxH Narrative: unable to assess Anesthesia Pre-op Phys. Exam Physician Exam Last Vital Signs Date Time Temp Pulse Resp B/P (MAP) Pulse Ox O2 Delivery O2 Flow Rate FiO2 06/22/18 12:48 86 16 35 06/22/18 12:00 98.6 134/52 (79) 100 06/22/18 12:00 Mechanical Ventilator Mechanical Ventilator 06/17/18 04:00 50.0 Constitutional: NAD Cardiovascular: RRR Respiratory: other - dimished breath sounds bilaterally Airway Exam Mallampati Score: Class III Anesthesia Pre-op A/P Labs Hematology Test 06/22/18 04:30 White Blood Count 11.4 K/UL (4.8-10.8) H Red Blood Count 3.84 M/UL (4.20-5.40) L Hemoglobin 8.7 G/DL (12.0-16.0) L Hematocrit 28.3 % (37.0-47.0) L Mean Corpuscular Volume 74 FL (80-99) L Mean Corpuscular Hemoglobin 22.7 PG (27.0-31.0) L Mean Corpuscular Hemoglobin Concent 30.8 G/DL (32.0-36.0) L Red Cell Distribution Width 18.8 % (11.6-14.8) H Platelet Count 223 K/UL (150-450) Mean Platelet Volume 7.7 FL (6.5-10.1) Neutrophils (%) (Auto) 70.5 % (45.0-75.0) Lymphocytes (%) (Auto) 16.4 % (20.0-45.0) L Monocytes (%) (Auto) 6.8 % (1.0-10.0) Eosinophils (%) (Auto) 5.5 % (0.0-3.0) H Basophils (%) (Auto) 0.8 % (0.0-2.0) Coagulation Test 06/22/18 04:30 Prothrombin Time 11.0 SEC (9.30-11.50) Prothromb Time International Ratio 1.0 (0.9-1.1) Activated Partial Thromboplast Time 31 SEC (23-33) Chemistry Test 06/22/18 04:30 06/22/18 07:50 06/22/18 13:09 Sodium Level 139 MMOL/L (136-145) Potassium Level 6.0 MMOL/L (3.5-5.1) *H 6.4 MMOL/L (3.5-5.1) *H 6.0 MMOL/L (3.5-5.1) *H Chloride Level 104 MMOL/L (98-107) Carbon Dioxide Level 27 MMOL/L (21-32) Anion Gap 8 mmol/L (5-15) Blood Urea Nitrogen 89 mg/dL (7-18) H Creatinine 4.2 MG/DL (0.55-1.30) H Estimat Glomerular Filtration Rate mL/min (>60) Glucose Level 121 MG/DL (74-106) H Calcium Level 8.5 MG/DL (8.5-10.1) Phosphorus Level 4.7 MG/DL (2.5-4.9) Magnesium Level 1.8 MG/DL (1.8-2.4) Total Bilirubin 0.2 MG/DL (0.2-1.0) Direct Bilirubin < 0.1 MG/DL (0.0-0.3) Aspartate Amino Transf (AST/SGOT) 23 U/L (15-37) Alanine Aminotransferase (ALT/SGPT) 21 U/L (12-78) Alkaline Phosphatase 112 U/L (46-116) C-Reactive Protein, Quantitative 5.2 mg/dL (0.00-0.90) H Pro-B-Type Natriuretic Peptide 2826 pg/mL (0-125) H Total Protein 6.7 G/DL (6.4-8.2) Albumin 2.5 G/DL (3.4-5.0) L Studies Pre-op Studies: EKG - sr, LAD, CXR - cardiomegaly, increased right pleural effusion, generalized interstitial congestion, echo - EF 60%, mild MR, Mild TR, mild pulm htn with RVSP=44 Risk Assessment & Plan Assessment: ASA III Plan: GA Status Change Before Surgery: No Pre-Antibiotics Drug: Nai Evans MD Jun 22, 2018 15:17
--- NOTE | 2018-06-22 15:26 | Pulmonolgy Critical Care Note ---
Critical Care - Asmt/Plan Assessment/Plan: Problem List: 1. Acute on chronic hypercapnic respiratory failure -intubated 06/02; extubated 06/10 -reintubated 06/17 2. R lung collapse, mucous plugging - resolved 3. Pulmonary edema 4. chronic obstructive asthma 5. Pneumonia 6. Hx afib 7. MRSA pna, recurrent fever and increased leukocytosis 8. ESBL E.coli pna 9. C.diff colitis 10. Pleural effusion Plan: -cont mechanical ventilatory support -weaning trials as tolerated -Trach placement -aggressive pulmonary hygiene with duonebs/mucomyst/suctioning q4 -chest PT R lung -repeat CXR shows more effusion -monitor volumes, hold IVF, may consider lasix -monitor renal function, improving -abx per ID Case d/w Dr. Jimenez Respiratory: ABG Cardiac: continue to monitor HR/BP Renal: F/U I&O Infectious Disease: continue antibiotics Time Spent (Minutes): 40 - cc Notes Reviewed: renal Discussed with: nurses Critical Care - Objective Last 24 Hour Vital Signs Date Time Temp Pulse Resp B/P (MAP) Pulse Ox O2 Delivery O2 Flow Rate FiO2 06/22/18 15:15 112 23 100 Mechanical Ventilator 35 06/22/18 15:06 105 20 97 Mechanical Ventilator 35 06/22/18 15:06 105 20 35 06/22/18 12:48 86 16 35 06/22/18 12:00 35 06/22/18 12:00 98.6 79 16 134/52 (79) 100 06/22/18 12:00 Mechanical Ventilator Mechanical Ventilator 06/22/18 11:03 88 16 100 Mechanical Ventilator 35 06/22/18 11:00 81 16 143/45 (77) 100 06/22/18 10:54 84 16 35 06/22/18 10:54 84 16 97 Mechanical Ventilator 35 06/22/18 10:00 84 24 166/55 (92) 97 06/22/18 09:04 93 22 35 06/22/18 09:00 92 25 168/63 (98) 95 06/22/18 08:00 35 06/22/18 08:00 Mechanical Ventilator Mechanical Ventilator 06/22/18 08:00 98.9 84 21 156/51 (86) 97 06/22/18 08:00 84 06/22/18 07:38 88 20 96 Mechanical Ventilator 35 06/22/18 07:28 85 17 96 Mechanical Ventilator 35 06/22/18 07:28 85 17 35 06/22/18 07:00 86 21 162/77 (105) 96 06/22/18 06:00 79 25 140/58 (85) 97 06/22/18 05:58 87 137/54 06/22/18 05:16 86 18 35 06/22/18 05:00 88 20 137/54 (81) 98 06/22/18 04:00 84 17 100 Mechanical Ventilator 35 06/22/18 04:00 98.8 93 21 154/49 (84) 97 06/22/18 04:00 92 06/22/18 04:00 Mechanical Ventilator Mechanical Ventilator 06/22/18 04:00 35 06/22/18 03:50 85 17 98 Mechanical Ventilator 35 06/22/18 03:00 95 22 154/49 (84) 95 06/22/18 02:00 90 25 163/86 (111) 96 06/22/18 01:30 78 18 35 06/22/18 01:12 79 18 Mechanical Ventilator 06/22/18 01:00 81 17 160/60 (93) 97 06/22/18 00:00 79 06/22/18 00:00 Mechanical Ventilator Mechanical Ventilator 06/22/18 00:00 35 06/22/18 00:00 99.3 81 16 140/52 (81) 97 06/21/18 23:35 82 16 99 Mechanical Ventilator 35 06/21/18 23:30 79 18 35 06/21/18 23:22 80 16 97 Mechanical Ventilator 35 06/21/18 23:00 78 16 119/59 (79) 98 06/21/18 22:00 78 16 137/53 (81) 97 06/21/18 21:30 98 18 35 06/21/18 21:00 81 19 142/53 (82) 96 06/21/18 20:28 100 165/61 06/21/18 20:00 35 06/21/18 20:00 101 06/21/18 20:00 98.6 99 19 165/61 (95) 95 06/21/18 20:00 Mechanical Ventilator Mechanical Ventilator 06/21/18 19:36 Mechanical Ventilator 35 06/21/18 19:35 Mechanical Ventilator 35 06/21/18 19:30 99 18 35 06/21/18 19:00 100 22 169/61 (97) 95 06/21/18 18:00 101 22 157/79 (105) 96 06/21/18 17:26 97 18 35 06/21/18 17:00 95 20 172/62 (98) 96 06/21/18 16:00 35 06/21/18 16:00 Mechanical Ventilator Mechanical Ventilator 06/21/18 16:00 98.9 101 20 169/94 (119) 96 06/21/18 16:00 103 Status: awake Lungs: rales Heart: HR/BP stable Abdomen: soft, non-tender Extremities: edema Critical Care - Subjective ROS Limited/Unobtainable: Yes Interval Events: Agitated. Trach planned but potassium high. Condition: unchanged EKG Rhythm: Sinus Rhythm FI02: 35 Vent Support Breath Rate: 16 Vent Support Mode: AC Vent Tidal Volume: 400 Sputum Amount: Small PEEP: 5.0 PIP: 45 Tube Feeding Amount: 55 I&O: Intake and Output 06/21/18 06/22/18 19:00 07:00 Intake Total 1335 ml 975 ml Output Total 1065 ml 1170 ml Balance 270 ml -195 ml IV Total 375 ml 55 ml Tube Feeding 660 ml 660 ml Other 300 ml 260 ml Output Urine Total 1065 ml 1020 ml Stool Total 150 ml ET-Tube: 7.5 ET Position: 23 Varinder De Souza MD Jun 22, 2018 15:26
--- NOTE | 2018-06-22 15:35 | Infectious Diseases Prog Note ---
Assessment/Plan Assessment/Plan 87 yo feamle with PMHx of COPD, HTN, and A.fib sent to the ED from her nuring home for SOB. Sepsis;improving - Likely PNA 06/21 CXR: Slightly increased right lung opacity, suspect increasing pleural fluid.Increased retrocardiac consolidation 06/17 CXR: Increasing right lung opacity, likely representing decreasing pleural fluid but may also represent increasing parenchymal consolidation 06/15 CXR: Increasing opacification right hemithorax, likely reflecting increasing pleural fluid but may also reflect increasing pulmonary parenchymal consolidation 06/14 CXR: Diffuse right lung hazy opacity appears similar to the prior exam. 06/12 CXR: : Hazy opacification of the right hemithorax, likely reflecting pleural fluid, is unchanged. 05/28/18 CXR with atalectasis vs consolidation in the right side. 06/01/18 CXR - Extensive right hemithorax opacification UA (-) sputum cx 06/15: MRSA (likely a colonizer at this point), ESBL E.coli Sputum Cx 05/28/18 - MRSA (Inf Neg) Urine legionella (-) Acute respiratory failure s/p intubation 06/16 Cdiff colitis -06/19 Cdif toxin a/b + R lung collapse: -06/16 CXR: Complete opacification of the right hemithorax. Probably due to complete atelectasis of the right lung, with evidence of abrupt occlusion of the rightmainstem bronchus. Given findings on prior chest radiographs, there is probablysignificant component of pleural effusion as well. Positive blood Cx - Likely contaminant BCx 05/28/18 - CoNS BCX 05/30/18 - NGTD Leukocytosis , recurrent mild Fever, improving COPD CAD A. fib PLAN - Continue Ertapenem #3 (abx d#7/-10) for ESBL Ecoli PNA -Continue PO Vancomycin #4/10 for Cdiff -06/20 SP Meropenem #5 -06/17 SP IV Vancomycin #21 -06/16 SP Cefepime #20 - Monitor CBC and Temps -f/u cx We will continue to follow Ms. Nowak during this hospitalization. Subjective Allergies: Coded Allergies: Mushroom (Verified Allergy, Severe, 05/28/18) MORPHINE (Unverified Allergy, Intermediate, Itching, 01/04/15) PENICILLINS (Unverified Allergy, Intermediate, Hives, 01/04/15) CELECOXIB (Verified Allergy, Mild, 01/15/09) Subjective afebrile in 72 hrs mild leucocytosis remains intubated Objective Vital Signs Last 24 Hour Vital Signs Date Time Temp Pulse Resp B/P (MAP) Pulse Ox O2 Delivery O2 Flow Rate FiO2 06/22/18 15:26 92 168/77 06/22/18 15:15 112 23 100 Mechanical Ventilator 35 06/22/18 15:06 105 20 97 Mechanical Ventilator 35 06/22/18 15:06 105 20 35 06/22/18 12:48 86 16 35 06/22/18 12:00 35 06/22/18 12:00 98.6 79 16 134/52 (79) 100 06/22/18 12:00 Mechanical Ventilator Mechanical Ventilator 06/22/18 11:03 88 16 100 Mechanical Ventilator 35 06/22/18 11:00 81 16 143/45 (77) 100 06/22/18 10:54 84 16 35 06/22/18 10:54 84 16 97 Mechanical Ventilator 35 06/22/18 10:00 84 24 166/55 (92) 97 06/22/18 09:04 93 22 35 06/22/18 09:00 92 25 168/63 (98) 95 06/22/18 08:00 35 06/22/18 08:00 Mechanical Ventilator Mechanical Ventilator 06/22/18 08:00 98.9 84 21 156/51 (86) 97 06/22/18 08:00 84 06/22/18 07:38 88 20 96 Mechanical Ventilator 35 06/22/18 07:28 85 17 96 Mechanical Ventilator 35 06/22/18 07:28 85 17 35 06/22/18 07:00 86 21 162/77 (105) 96 06/22/18 06:00 79 25 140/58 (85) 97 06/22/18 05:58 87 137/54 06/22/18 05:16 86 18 35 06/22/18 05:00 88 20 137/54 (81) 98 06/22/18 04:00 84 17 100 Mechanical Ventilator 35 06/22/18 04:00 98.8 93 21 154/49 (84) 97 06/22/18 04:00 92 06/22/18 04:00 Mechanical Ventilator Mechanical Ventilator 2/20/19 04:00 35 06/22/18 03:50 85 17 98 Mechanical Ventilator 35 06/22/18 03:00 95 22 154/49 (84) 95 06/22/18 02:00 90 25 163/86 (111) 96 06/22/18 01:30 78 18 35 06/22/18 01:12 79 18 Mechanical Ventilator 06/22/18 01:00 81 17 160/60 (93) 97 06/22/18 00:00 79 06/22/18 00:00 Mechanical Ventilator Mechanical Ventilator 06/22/18 00:00 35 06/22/18 00:00 99.3 81 16 140/52 (81) 97 06/21/18 23:35 82 16 99 Mechanical Ventilator 35 06/21/18 23:30 79 18 35 06/21/18 23:22 80 16 97 Mechanical Ventilator 35 06/21/18 23:00 78 16 119/59 (79) 98 06/21/18 22:00 78 16 137/53 (81) 97 06/21/18 21:30 98 18 35 06/21/18 21:00 81 19 142/53 (82) 96 06/21/18 20:28 100 165/61 06/21/18 20:00 35 06/21/18 20:00 101 06/21/18 20:00 98.6 99 19 165/61 (95) 95 06/21/18 20:00 Mechanical Ventilator Mechanical Ventilator 06/21/18 19:36 Mechanical Ventilator 35 06/21/18 19:35 Mechanical Ventilator 35 06/21/18 19:30 99 18 35 06/21/18 19:00 100 22 169/61 (97) 95 06/21/18 18:00 101 22 157/79 (105) 96 06/21/18 17:26 97 18 35 06/21/18 17:00 95 20 172/62 (98) 96 06/21/18 16:00 35 06/21/18 16:00 Mechanical Ventilator Mechanical Ventilator 06/21/18 16:00 98.9 101 20 169/94 (119) 96 06/21/18 16:00 103 Height (Feet): 5 Height (Inches): 4.00 Weight (Pounds): 118 Objective General Appearance: no apparent distress, other - on intubated Neck: supple Cardiovascular: normal rate Respiratory/Chest: lungs clear Abdomen: normal bowel sounds, non tender, soft Extremities: trace edema Laboratory Tests Test 06/22/18 04:30 06/22/18 07:50 06/22/18 13:09 White Blood Count 11.4 K/UL (4.8-10.8) H Red Blood Count 3.84 M/UL (4.20-5.40) L Hemoglobin 8.7 G/DL (12.0-16.0) L Hematocrit 28.3 % (37.0-47.0) L Mean Corpuscular Volume 74 FL (80-99) L Mean Corpuscular Hemoglobin 22.7 PG (27.0-31.0) L Mean Corpuscular Hemoglobin Concent 30.8 G/DL (32.0-36.0) L Red Cell Distribution Width 18.8 % (11.6-14.8) H Platelet Count 223 K/UL (150-450) Mean Platelet Volume 7.7 FL (6.5-10.1) Neutrophils (%) (Auto) 70.5 % (45.0-75.0) Lymphocytes (%) (Auto) 16.4 % (20.0-45.0) L Monocytes (%) (Auto) 6.8 % (1.0-10.0) Eosinophils (%) (Auto) 5.5 % (0.0-3.0) H Basophils (%) (Auto) 0.8 % (0.0-2.0) Prothrombin Time 11.0 SEC (9.30-11.50) Prothromb Time International Ratio 1.0 (0.9-1.1) Activated Partial Thromboplast Time 31 SEC (23-33) Sodium Level 139 MMOL/L (136-145) Potassium Level 6.0 MMOL/L (3.5-5.1) *H 6.4 MMOL/L (3.5-5.1) *H 6.0 MMOL/L (3.5-5.1) *H Chloride Level 104 MMOL/L (98-107) Carbon Dioxide Level 27 MMOL/L (21-32) Anion Gap 8 mmol/L (5-15) Blood Urea Nitrogen 89 mg/dL (7-18) H Creatinine 4.2 MG/DL (0.55-1.30) H Estimat Glomerular Filtration Rate mL/min (>60) Glucose Level 121 MG/DL (74-106) H Calcium Level 8.5 MG/DL (8.5-10.1) Phosphorus Level 4.7 MG/DL (2.5-4.9) Magnesium Level 1.8 MG/DL (1.8-2.4) Total Bilirubin 0.2 MG/DL (0.2-1.0) Direct Bilirubin < 0.1 MG/DL (0.0-0.3) Aspartate Amino Transf (AST/SGOT) 23 U/L (15-37) Alanine Aminotransferase (ALT/SGPT) 21 U/L (12-78) Alkaline Phosphatase 112 U/L (46-116) C-Reactive Protein, Quantitative 5.2 mg/dL (0.00-0.90) H Pro-B-Type Natriuretic Peptide 2826 pg/mL (0-125) H Total Protein 6.7 G/DL (6.4-8.2) Albumin 2.5 G/DL (3.4-5.0) L Random Vancomycin Level 18.0 ug/mL Current Medications Medications (Trade) Dose Ordered Sig/Ann Route PRN Reason Start Time Stop Time Status Last Admin Dose Admin Acetaminophen (Tylenol) 650 mg Q4H PRN ORAL Mild Pain/Temp > 100.5 06/16/18 19:19 07/16/18 19:18 06/21/18 04:03 Acetylcysteine (Mucomyst) 100 mg Q4HRT HHN 06/22/18 11:00 07/09/18 10:59 06/22/18 15:09 Albuterol/ Ipratropium (Albuterol/ Ipratropium) 3 ml Q4HRT PRN HHN Shortness of Breath 06/20/18 04:45 06/25/18 04:44 06/22/18 15:09 Amiodarone HCl (Cordarone) 200 mg BID ORAL 06/17/18 09:00 07/17/18 08:59 06/22/18 09:11 Chlorhexidine Gluconate (Myra-Hex 2%) 1 applic DAILY@2000 TOPIC 06/16/18 20:00 07/02/18 19:59 06/21/18 20:25 Ertapenem 0.5 gm/ Sodium Chloride 55 ml @ 110 mls/hr Q24H IVPB 06/20/18 17:30 06/25/18 17:29 06/21/18 19:00 Haloperidol Lactate (Haldol) 5 mg Q6H PRN IM Agitation 06/16/18 19:20 07/16/18 19:19 Heparin Sodium (Porcine) (Heparin 5000 units/ml) 5,000 units EVERY 12 HOURS SUBQ 06/16/18 21:00 06/27/18 08:59 06/21/18 20:27 Lactobacillus Acidophilus (Culturelle) 1 tab TWICE A DAY ORAL 06/22/18 18:00 07/22/18 17:59 Lorazepam (Ativan 2mg/ml 1ml) 0.5 mg Q3H PRN IV For Anxiety 06/16/18 19:20 06/23/18 19:19 06/20/18 20:36 Metoprolol Tartrate (Lopressor) 5 mg Q6H PRN IVP SBP > 125 06/16/18 19:20 07/16/18 19:19 06/22/18 15:26 Nitroglycerin (Ntg) 0.4 mg Q5M PRN SL Prn Chest Pain 06/16/18 19:20 06/27/18 13:29 Ondansetron HCl (Zofran) 4 mg Q6H PRN IVP Nausea & Vomiting 06/16/18 19:21 07/16/18 19:20 Pantoprazole (Protonix) 40 mg DAILY IVP 06/20/18 20:00 07/20/18 19:59 06/22/18 09:10 Quetiapine Fumarate (SEROquel) 25 mg Q6H PRN ORAL For Anxiety 06/16/18 19:21 07/16/18 19:20 06/21/18 20:27 Vancomycin HCl (Firvanq) 125 mg FOUR TIMES A DAY NG 06/19/18 13:00 06/26/18 12:59 06/22/18 15:20 Natty Hernandes M.D. Jun 22, 2018 15:35
--- NOTE | 2018-06-22 15:42 | Pre-Procedure Note/Attestation ---
Pre-Procedure Note/Attestation Complete Prior to Procedure Planned Procedure: not applicable Procedure Narrative: tracheostomy Indications for Procedure Pre-Operative Diagnosis: respiratory insufficiency requiring prolonged ventilatory support Attestation I attest that I discussed the nature of the procedure; its benefits; risks and complications; and alternatives (and the risks and benefits of such alternatives ), prior to the procedure, with the patient (or the patient's legal outside sales account representative). I attest that, if there was a reasonable possibility of needing a blood transfusion, the patient (or the patient's legal outside sales account representative) was given the [facility] standardized written summary, pursuant to the Serafin Elin Blood Safety Act ([place] Health and Safety Code # 1645, as amended). I attest that I re-evaluated the patient just prior to the surgery and that there has been no change in the patient's H&P, except as documented below: Christiano Garcia Jun 22, 2018 15:42
--- NOTE | 2018-06-22 17:00 | NUR ---
NURSE NOTES: Patient became hypertensive with a SBP of 178/75. Lopressor was given of 5 mg. Patient was checked again after meds given and she responded well. SBP was 158/69. Patient was very agitated and restless. Patient was given Seroquel and BP was improved. to SBPs 120s.
--- NOTE | 2018-06-22 17:25 | NUR ---
RESPIRATORY NOTE: PT. REMAINED STABLE ON CMV WITH CURRENT SETTING. SXN PRN WITHOUT ADVERSE REACTION. HME CHANGED AND SECURELY PLACED. VENT CIRCUIT AND SX TUBING SECURE AND OUT OF THE WAY. PT REMAINS ON SOFT BILATERAL WRIST RESTRAINS WHICH ARE SECURELY FASTENED. NO S/S OF RESPIRATORY DISTRESS NOTED AT THIS TIME.
--- NOTE | 2018-06-22 17:30 | NUR ---
NURSE NOTES: Patient is resting comfortably. Patient was repositioned for comfort and not in any acute distress. Patient is being monitored on the threat monitoring analyst. VSS. Patient is mechanically ventilated with 7.5 ETT with vent settings AC 16, TV 400, FIO2 35% +5. Patient is now on Nepro via NGT at 10 ml/hr. Patient has Sinclair catheter draining yellow urine to gravity. Patient has a MILY picc that is saline locked. Patient is very impulsive pulling at lines and ETT. BL soft wrist restraints are placed. Pulses are palpable and skin is intact. Safety measures are in place with bed locked in the lowest position with HOB elevated and side rails up x 3. Will continue to monitor and follow plan of care
[2018-06-22] MEDS: Ertapenem 0.5 GM in NS 55 ML IVPB SCH (17:59)
[2018-06-22] MEDS: Lactobacillus-GG tablet ORAL SCH (17:59)
--- NOTE | 2018-06-22 18:14 | NUR ---
CASE MANAGEMENT: REVIEW SI: A-FIB . RESPIRATORY INSUFFICIENCY REQUIRING PROLONGED VENTILATORY SUPPORT T 98.6 HR 101 RR 24 BP 168/60 SAT 96% MECH VENT FIO2 35 WBC 11.4 H/H 8.7/28.3 K+ 6.4 BNP 2826 IS: KAYEXALATE NGT X1 ERTAPENEM IV Q24HR VANCO HCl NGT QID AMIODARONE PO BID NGT FEEDING GLUCERNA 1.5 @55ML/HR ICU STATUS DCP: PATIENT IS FROM [facility]
--- NOTE | 2018-06-22 19:46 | NUR ---
HAND-OFF: Report given to MARGY Rollins. VSS and not in any acute distress
--- NOTE | 2018-06-22 19:47 | NUR ---
NURSE NOTES: Endorsement received from MARGY Lambert. Patient opens eyes spontaneously. Orally intubated with ET 7.5, 23 lipline. AC 16, Vt 400, PEEP 5, 35% FiO2. With NGT at right nare. Patent and intact. Rechecked placement per auscultation. No residual noted. Ongoing Nepro at 10ml/hr, with goal of 30ml/hr and H2O flushes 2656ml [id number]. With right upper arm PICC double lumen. Red port noted to be with resistance when flushed. With Sinclair Cath F 16 draining to urimeter. With rectal tube connected to bag. On P200 mattress. Head of bed elevated. Bed locked and in low position. Call light within reach. Bed alarm on.
--- NOTE | 2018-06-22 19:56 | Cardiology Progress Note ---
Assessment/Plan Assessment/Plan COPD, congestive heart failure, atrial fibrillation sinus tachy agitation right lung collapse? anemia pleural effusion respirator failure tachy acute on chronic renal failure pleural effusion tele sinus with pvc vent suppor t abx pulm rxn bp is fine blood cx previously neg beta evelyn iv or via ngt prn increase amiod to 200 mg bid for a few days may be as of wed will switch back d/w rn hemodynamically stable at the moment cxr reviewed right effusion cr better ka at times michele Subjective ROS Limited/Unobtainable: Yes Subjective in icu on vent in isolation Objective Last 24 Hour Vital Signs Date Time Temp Pulse Resp B/P (MAP) Pulse Ox O2 Delivery O2 Flow Rate FiO2 06/22/18 19:13 86 16 100 Mechanical Ventilator 35 06/22/18 19:04 84 19 35 06/22/18 19:04 84 19 99 Mechanical Ventilator 35 06/22/18 18:00 72 23 152/59 (90) 97 06/22/18 17:25 90 17 35 06/22/18 17:00 77 23 120/49 (72) 97 06/22/18 16:00 90 06/22/18 16:00 35 06/22/18 16:00 Mechanical Ventilator Mechanical Ventilator 06/22/18 16:00 99.0 91 23 170/66 (100) 97 06/22/18 15:26 92 168/77 06/22/18 15:15 112 23 100 Mechanical Ventilator 35 06/22/18 15:06 105 20 97 Mechanical Ventilator 35 06/22/18 15:06 105 20 35 06/22/18 15:00 102 23 178/60 (99) 97 06/22/18 14:00 101 24 168/60 (96) 96 06/22/18 13:00 89 18 145/56 (85) 96 06/22/18 12:48 86 16 35 06/22/18 12:00 78 06/22/18 12:00 35 06/22/18 12:00 98.6 79 16 134/52 (79) 100 06/22/18 12:00 Mechanical Ventilator Mechanical Ventilator 06/22/18 11:03 88 16 100 Mechanical Ventilator 35 06/22/18 11:00 81 16 143/45 (77) 100 06/22/18 10:54 84 16 35 06/22/18 10:54 84 16 97 Mechanical Ventilator 35 06/22/18 10:00 84 24 166/55 (92) 97 06/22/18 09:04 93 22 35 06/22/18 09:00 92 25 168/63 (98) 95 06/22/18 08:00 35 06/22/18 08:00 Mechanical Ventilator Mechanical Ventilator 06/22/18 08:00 98.9 84 21 156/51 (86) 97 06/22/18 08:00 84 06/22/18 07:38 88 20 96 Mechanical Ventilator 35 06/22/18 07:28 85 17 96 Mechanical Ventilator 35 06/22/18 07:28 85 17 35 06/22/18 07:00 86 21 162/77 (105) 96 06/22/18 06:00 79 25 140/58 (85) 97 06/22/18 05:58 87 137/54 06/22/18 05:16 86 18 35 06/22/18 05:00 88 20 137/54 (81) 98 06/22/18 04:00 84 17 100 Mechanical Ventilator 35 06/22/18 04:00 98.8 93 21 154/49 (84) 97 06/22/18 04:00 92 06/22/18 04:00 Mechanical Ventilator Mechanical Ventilator 06/22/18 04:00 35 06/22/18 03:50 85 17 98 Mechanical Ventilator 35 06/22/18 03:00 95 22 154/49 (84) 95 06/22/18 02:00 90 25 163/86 (111) 96 06/22/18 01:30 78 18 35 06/22/18 01:12 79 18 Mechanical Ventilator 06/22/18 01:00 81 17 160/60 (93) 97 06/22/18 00:00 79 06/22/18 00:00 Mechanical Ventilator Mechanical Ventilator 06/22/18 00:00 35 06/22/18 00:00 99.3 81 16 140/52 (81) 97 06/21/18 23:35 82 16 99 Mechanical Ventilator 35 06/21/18 23:30 79 18 35 06/21/18 23:22 80 16 97 Mechanical Ventilator 35 06/21/18 23:00 78 16 119/59 (79) 98 06/21/18 22:00 78 16 137/53 (81) 97 06/21/18 21:30 98 18 35 06/21/18 21:00 81 19 142/53 (82) 96 06/21/18 20:28 100 165/61 06/21/18 20:00 35 06/21/18 20:00 101 06/21/18 20:00 98.6 99 19 165/61 (95) 95 06/21/18 20:00 Mechanical Ventilator Mechanical Ventilator General Appearance: no apparent distress, alert, on vent, patient on isolation Neck: supple Cardiovascular: normal rate Respiratory/Chest: rhonchi - bilaterally Abdomen: soft Extremities: no swelling Intake and Output 06/21/18 06/22/18 19:00 07:00 Intake Total 1335 ml 975 ml Output Total 1065 ml 1170 ml Balance 270 ml -195 ml IV Total 375 ml 55 ml Tube Feeding 660 ml 660 ml Other 300 ml 260 ml Output Urine Total 1065 ml 1020 ml Stool Total 150 ml Laboratory Tests Test 06/22/18 04:30 06/22/18 07:50 06/22/18 13:09 White Blood Count 11.4 K/UL (4.8-10.8) H Red Blood Count 3.84 M/UL (4.20-5.40) L Hemoglobin 8.7 G/DL (12.0-16.0) L Hematocrit 28.3 % (37.0-47.0) L Mean Corpuscular Volume 74 FL (80-99) L Mean Corpuscular Hemoglobin 22.7 PG (27.0-31.0) L Mean Corpuscular Hemoglobin Concent 30.8 G/DL (32.0-36.0) L Red Cell Distribution Width 18.8 % (11.6-14.8) H Platelet Count 223 K/UL (150-450) Mean Platelet Volume 7.7 FL (6.5-10.1) Neutrophils (%) (Auto) 70.5 % (45.0-75.0) Lymphocytes (%) (Auto) 16.4 % (20.0-45.0) L Monocytes (%) (Auto) 6.8 % (1.0-10.0) Eosinophils (%) (Auto) 5.5 % (0.0-3.0) H Basophils (%) (Auto) 0.8 % (0.0-2.0) Prothrombin Time 11.0 SEC (9.30-11.50) Prothromb Time International Ratio 1.0 (0.9-1.1) Activated Partial Thromboplast Time 31 SEC (23-33) Sodium Level 139 MMOL/L (136-145) Potassium Level 6.0 MMOL/L (3.5-5.1) *H 6.4 MMOL/L (3.5-5.1) *H 6.0 MMOL/L (3.5-5.1) *H Chloride Level 104 MMOL/L (98-107) Carbon Dioxide Level 27 MMOL/L (21-32) Anion Gap 8 mmol/L (5-15) Blood Urea Nitrogen 89 mg/dL (7-18) H Creatinine 4.2 MG/DL (0.55-1.30) H Estimat Glomerular Filtration Rate mL/min (>60) Glucose Level 121 MG/DL (74-106) H Calcium Level 8.5 MG/DL (8.5-10.1) Phosphorus Level 4.7 MG/DL (2.5-4.9) Magnesium Level 1.8 MG/DL (1.8-2.4) Total Bilirubin 0.2 MG/DL (0.2-1.0) Direct Bilirubin < 0.1 MG/DL (0.0-0.3) Aspartate Amino Transf (AST/SGOT) 23 U/L (15-37) Alanine Aminotransferase (ALT/SGPT) 21 U/L (12-78) Alkaline Phosphatase 112 U/L (46-116) C-Reactive Protein, Quantitative 5.2 mg/dL (0.00-0.90) H Pro-B-Type Natriuretic Peptide 2826 pg/mL (0-125) H Total Protein 6.7 G/DL (6.4-8.2) Albumin 2.5 G/DL (3.4-5.0) L Random Vancomycin Level 18.0 ug/mL Geoffrey Sandhu MD Jun 22, 2018 19:56
[2018-06-22] MEDS: Dyna-Hex 2% Top Sol 2oz TOPIC SCH (20:36)
--- NOTE | 2018-06-22 21:00 | NUR ---
NURSE NOTES: Called patient's son and obtained telephone consent for EGD with possible biopsy, witnessed by another RN. Heparin withheld for tracheostomy, PEG placement and EGD for tomorrow.
--- NOTE | 2018-06-22 23:00 | NUR ---
NURSE NOTES: Patient asleep. Repositioned. Secretions suctioned.
[2018-06-23] VITALS (23 sets, daily range): BP systolic 120–172; BP diastolic 46–85
--- NOTE | 2018-06-23 | NUR ---
NURSE NOTES: Feeding turned off for pre procedure preparation for EGD and PEG placement. Water flush given as ordered. PRN Metoprolol IV given for SBP of 152mmHg.
[2018-06-23] MEDS: Metoprolol 5mg/5ml Inj IVP PRN ×2 (00:17→21:08)
--- NOTE | 2018-06-23 00:54 | NUR ---
RESPIRATORY NOTE: Received pt on AC 16, 400VT, 35%, PEEP +5. Pt intubated w/ ETT 7.5 @ 23cm lipline, secured by anchorfast. Pt asleep. B/S brad. rhonchi, sxn small amounts of thick/thin, pink-yellow secretions w/ occasional red specks. Vent plugged into red outlet, ambubag at bedside. Pt in no apparent distress at this time. Will continue to monitor pt.
--- NOTE | 2018-06-23 02:00 | NUR ---
NURSE NOTES: Patint asleep. Vital signs stable. No shortness of breath
[2018-06-23] MEDS: Albuterol/Ipratropium 3ml neb HHN PRN ×6 (03:09→23:18)
--- NOTE | 2018-06-23 04:00 | NUR ---
NURSE NOTES: Bed bath, oral care, change of linens done.
[2018-06-23 05:42] LABS: BASOPHILS % (AUTO) 0.7 % (0.0-2.0); EOSINOPHILS % (AUTO) 4.9 % (0.0-3.0); HEMOGLOBIN 8.4 G/DL (12.0-16.0); LYMPHOCYTES % (AUTO) 19.3 % (20.0-45.0); MEAN CORPUSCULAR VOLUME 73 FL (80-99); NEUTROPHILS % (AUTO) 68.2 % (45.0-75.0); PLATELET COUNT 185 K/UL (150-450); RED CELL DISTRIBUTION WIDTH 18.6 % (11.6-14.8); WHITE BLOOD COUNT 10.2 K/UL (4.8-10.8)
[2018-06-23 06:28] LABS: ALANINE AMINOTRANSFERASE 28 U/L (12-78); ALBUMIN 2.4 G/DL (3.4-5.0); ALBUMIN/GLOBULIN RATIO 0.6 (1.0-2.7); ALKALINE PHOSPHATASE 77 U/L (46-116); ANION GAP 8 mmol/L (5-15); ASPARTATE AMINO TRANSFERASE 31 U/L (15-37); BILIRUBIN,TOTAL 0.2 MG/DL (0.2-1.0); BLOOD UREA NITROGEN 90 mg/dL (7-18); CALCIUM 8.8 MG/DL (8.5-10.1); CARBON DIOXIDE 28 MMOL/L (21-32); CHLORIDE 102 MMOL/L (98-107); CREATININE 3.8 MG/DL (0.55-1.30); POTASSIUM 4.8 MMOL/L (3.5-5.1); SODIUM 138 MMOL/L (136-145)
[2018-06-23 07:04] LABS: PHOSPHORUS 5.2 MG/DL (2.5-4.9)
--- NOTE | 2018-06-23 07:06 | NUR ---
HAND-OFF: Report given to MARGY Gamez.
--- NOTE | 2018-06-23 07:36 | NUR ---
NURSE NOTES: Report received from Ria JI. Pt awake, alert and oriented x 1-2, confused and disoriented at times. Pt connected to music publicist, SR. Pt oraaly intubated ETT 7.5, 23 cm lipline, TV 400, 25% fiO2, PEEP5. NGT noted and clamped. Pt kept NPO after midnight for Trache, PEG and EGD procedures. Rectal tube intact draining brown liquid stool to gravity bag. Sinclair noted and intact. Pt on p200 mattress. MILY PICC noted with NS at tko. Soft bilateral wrist restraints on. Pt attempting to pull out lines and get OOB. Safety measures in place with bed locked and in lowest position, side rails x3 up and bed alarm on. Will continue to monitor and continue plan of care.
[2018-06-23] MEDS: Heparin 5000 units/ml inj SUBQ SCH ×2 (08:02→20:35)
[2018-06-23] MEDS: Amiodarone 200mg tab ORAL SCH ×2 (08:11→17:39)
[2018-06-23] MEDS: Pantoprazole Inj IVP SCH (08:11)
[2018-06-23] MEDS: Vancomycin oral 125mg/2.5ml NG SCH ×4 (08:11→20:35)
[2018-06-23] MEDS: Lactobacillus-GG tablet ORAL SCH ×2 (08:12→17:39)
--- NOTE | 2018-06-23 10:19 | NUR ---
NURSE NOTES: Spoke to pre-op regarding pt trache procedure today. Pre-op checklist done. Will continue to monitor.
--- NOTE | 2018-06-23 11:12 | NUR ---
NURSE NOTES: Dr Jimenez and Dr Acevedo came to see pt. No acute distress. No new orders. Will continue to monitor.
[2018-06-23] MEDS ORDERED: Lidocaine 1% 10mg/ml/Epi 0.005mg/ml 30ml vial INJ ONE (12:19)
--- NOTE | 2018-06-23 12:22 | General Progress Note ---
Assessment/Plan Problem List: (1) COPD with acute exacerbation ICD Codes: J44.1 - Chronic obstructive pulmonary disease with (acute) exacerbation SNOMED: 369781290 (2) Pleural effusion ICD Codes: J90 - Pleural effusion, not elsewhere classified SNOMED: 88450124 (3) Afib ICD Codes: I48.91 - Unspecified atrial fibrillation SNOMED: 61278941 (4) CAD (coronary artery disease) ICD Codes: I25.10 - Atherosclerotic heart disease of [place] coronary artery without angina pectoris SNOMED: 39622599 (5) Respiratory failure ICD Codes: J96.90 - Respiratory failure, unspecified, unspecified whether with hypoxia or hypercapnia SNOMED: 279160346 (6) Failure to thrive SNOMED: 98370417 (7) Acute renal failure ICD Codes: N17.9 - Acute kidney failure, unspecified SNOMED: 57363236 (8) C. difficile colitis ICD Codes: A04.72 - Enterocolitis due to Clostridium difficile, not specified as recurrent SNOMED: 781016892 Assessment/Plan lactobacillus NGTF pending trach for today plan PEG for Wednesday Subjective ROS Limited/Unobtainable: No Allergies: Coded Allergies: Mushroom (Verified Allergy, Severe, 05/28/18) MORPHINE (Unverified Allergy, Intermediate, Itching, 01/04/15) PENICILLINS (Unverified Allergy, Intermediate, Hives, 01/04/15) CELECOXIB (Verified Allergy, Mild, 01/15/09) Objective Last 24 Hour Vital Signs Date Time Temp Pulse Resp B/P (MAP) Pulse Ox O2 Delivery O2 Flow Rate FiO2 06/23/18 11:24 93 16 100 Mechanical Ventilator 35 06/23/18 11:09 90 16 100 Mechanical Ventilator 35 06/23/18 11:06 85 16 35 06/23/18 11:00 87 16 150/52 (84) 99 06/23/18 10:00 84 16 124/60 (81) 99 06/23/18 09:00 97 18 122/52 (75) 98 06/23/18 08:32 91 16 35 06/23/18 08:00 98.5 96 18 144/85 (104) 98 06/23/18 08:00 Mechanical Ventilator Mechanical Ventilator 06/23/18 08:00 35 06/23/18 08:00 89 2/21/19 07:25 106 26 100 Mechanical Ventilator 35 06/23/18 07:15 101 22 98 Mechanical Ventilator 35 06/23/18 07:05 101 22 35 06/23/18 07:00 102 22 164/83 (110) 100 06/23/18 06:00 79 17 132/50 (77) 99 06/23/18 05:08 91 20 35 06/23/18 05:00 88 18 121/46 (71) 99 06/23/18 04:00 82 06/23/18 04:00 35 06/23/18 04:00 Mechanical Ventilator Mechanical Ventilator 06/23/18 04:00 98.8 88 32 130/48 (75) 97 06/23/18 03:26 92 18 100 Mechanical Ventilator 35 06/23/18 03:11 88 18 98 Mechanical Ventilator 35 06/23/18 03:10 88 18 35 06/23/18 03:00 88 18 172/69 (103) 99 06/23/18 02:00 74 18 138/52 (80) 99 06/23/18 01:00 68 18 120/51 (74) 99 06/23/18 00:52 71 16 35 06/23/18 00:17 78 152/54 06/23/18 00:00 Mechanical Ventilator Mechanical Ventilator 06/23/18 00:00 98.9 74 16 120/51 (74) 97 06/23/18 00:00 92 06/22/18 23:27 91 16 95 Mechanical Ventilator 35 06/22/18 23:19 91 17 99 Mechanical Ventilator 35 06/22/18 23:19 91 17 35 06/22/18 23:00 89 16 121/49 (73) 97 06/22/18 22:00 78 16 121/49 (73) 98 06/22/18 21:23 75 15 35 06/22/18 21:00 78 16 134/45 (74) 98 06/22/18 20:00 78 16 116/50 (72) 98 06/22/18 20:00 Mechanical Ventilator Mechanical Ventilator 06/22/18 20:00 35 06/22/18 20:00 80 06/22/18 19:13 86 16 100 Mechanical Ventilator 35 06/22/18 19:04 84 19 35 06/22/18 19:04 84 19 99 Mechanical Ventilator 35 06/22/18 19:00 98.7 79 16 142/60 (87) 98 06/22/18 18:00 72 23 152/59 (90) 97 06/22/18 17:25 90 17 35 06/22/18 17:00 77 23 120/49 (72) 97 06/22/18 16:00 90 06/22/18 16:00 35 06/22/18 16:00 Mechanical Ventilator Mechanical Ventilator 06/22/18 16:00 99.0 91 23 170/66 (100) 97 06/22/18 15:26 92 168/77 06/22/18 15:15 112 23 100 Mechanical Ventilator 35 06/22/18 15:06 105 20 97 Mechanical Ventilator 35 06/22/18 15:06 105 20 35 06/22/18 15:00 102 23 178/60 (99) 97 06/22/18 14:00 101 24 168/60 (96) 96 06/22/18 13:00 89 18 145/56 (85) 96 06/22/18 12:48 86 16 35 Intake and Output 06/22/18 06/23/18 19:00 07:00 Intake Total 1536 ml 366 ml Output Total 890 ml 650 ml Balance 646 ml -284 ml Free Water 266 ml 266 ml IV Total 55 ml Tube Feeding 615 ml 40 ml Other 600 ml 60 ml Output Urine Total 890 ml 650 ml Laboratory Tests 06/22/18 13:09: Potassium Level 6.0*H 06/23/18 04:30: Potassium Level 4.8, White Blood Count 10.2, Red Blood Count 3.70L, Hemoglobin 8.4L, Hematocrit 27.0L, Mean Corpuscular Volume 73L, Mean Corpuscular Hemoglobin 22.6L, Mean Corpuscular Hemoglobin Concent 31.0L, Red Cell Distribution Width 18.6H, Platelet Count 185, Mean Platelet Volume 7.3, Neutrophils (%) (Auto) 68.2, Lymphocytes (%) (Auto) 19.3L, Monocytes (%) (Auto) 7.0, Eosinophils (%) (Auto) 4.9H, Basophils (%) (Auto) 0.7, Prothrombin Time 10.9, Prothromb Time International Ratio 1.0, Activated Partial Thromboplast Time 23, Sodium Level 138, Chloride Level 102, Carbon Dioxide Level 28, Anion Gap 8, Blood Urea Nitrogen 90H, Creatinine 3.8H, Estimat Glomerular Filtration Rate , Glucose Level 98, Calcium Level 8.8, Phosphorus Level 5.2H, Magnesium Level 1.6L, Total Bilirubin 0.2, Aspartate Amino Transf (AST/SGOT) 31, Alanine Aminotransferase (ALT/SGPT) 28, Alkaline Phosphatase 77, Total Protein 6.4, Albumin 2.4L, Globulin 4.0, Albumin/Globulin Ratio 0.6L 06/23/18 07:18: Arterial Blood pH 7.301L, Arterial Blood Partial Pressure CO2 54.7H, Arterial Blood Partial Pressure O2 216.1H, Arterial Blood HCO3 26.4H, Arterial Blood Oxygen Saturation 98.8, Arterial Blood Base Excess -0.5, David Test Positive Height (Feet): 5 Height (Inches): 4.00 Weight (Pounds): 115 General Appearance: lethargic EENT: normal ENT inspection Neck: supple Cardiovascular: normal rate Respiratory/Chest: decreased breath sounds Abdomen: normal bowel sounds, non tender, soft Extremities: non-tender Jacobo Acevedo MD Jun 23, 2018 12:21
--- NOTE | 2018-06-23 12:30 | NUR ---
NURSE NOTES: Family here visiting with pt. No acute distress. Will continue to monitor.
--- NOTE | 2018-06-23 12:35 | Nephrology Progress Note ---
Assessment/Plan Problem List: (1) Acute renal failure Assessment: Cr lowering (2) Anuria (3) Acute respiratory failure Assessment: on vent (4) Dementia (5) Afib Assessment Kayexelate once for high K Urine out put rising Cr lowering other conditions: (1) Acute respiratory failure (2) Aspiration pneumonia (3) Acute encephalopathy (4) Pleural effusion (5) COPD (chronic obstructive pulmonary disease) (6) CAD (coronary artery disease) (7) Dementia Plan due trach today Cr lowering- Urine out put higher monitor vanco level family agree with HD . but no need for HD at this time intubated now ? Trach?? K and Phos and Mag as needed Anemia porter Adjust BP meds fu Lytes Gastric support per orders Subjective ROS Limited/Unobtainable: Yes Objective Objective Last 24 Hour Vital Signs Date Time Temp Pulse Resp B/P (MAP) Pulse Ox O2 Delivery O2 Flow Rate FiO2 06/23/18 11:24 93 16 100 Mechanical Ventilator 35 06/23/18 11:09 90 16 100 Mechanical Ventilator 35 06/23/18 11:06 85 16 35 06/23/18 11:00 87 16 150/52 (84) 99 06/23/18 10:00 84 16 124/60 (81) 99 06/23/18 09:00 97 18 122/52 (75) 98 06/23/18 08:32 91 16 35 06/23/18 08:00 98.5 96 18 144/85 (104) 98 06/23/18 08:00 Mechanical Ventilator Mechanical Ventilator 06/23/18 08:00 35 06/23/18 08:00 89 06/23/18 07:25 106 26 100 Mechanical Ventilator 35 06/23/18 07:15 101 22 98 Mechanical Ventilator 35 06/23/18 07:05 101 22 35 06/23/18 07:00 102 22 164/83 (110) 100 06/23/18 06:00 79 17 132/50 (77) 99 06/23/18 05:08 91 20 35 06/23/18 05:00 88 18 121/46 (71) 99 06/23/18 04:00 82 06/23/18 04:00 35 06/23/18 04:00 Mechanical Ventilator Mechanical Ventilator 06/23/18 04:00 98.8 88 32 130/48 (75) 97 06/23/18 03:26 92 18 100 Mechanical Ventilator 35 06/23/18 03:11 88 18 98 Mechanical Ventilator 35 06/23/18 03:10 88 18 35 06/23/18 03:00 88 18 172/69 (103) 99 06/23/18 02:00 74 18 138/52 (80) 99 06/23/18 01:00 68 18 120/51 (74) 99 06/23/18 00:52 71 16 35 06/23/18 00:17 78 152/54 06/23/18 00:00 Mechanical Ventilator Mechanical Ventilator 06/23/18 00:00 98.9 74 16 120/51 (74) 97 06/23/18 00:00 92 06/22/18 23:27 91 16 95 Mechanical Ventilator 35 06/22/18 23:19 91 17 99 Mechanical Ventilator 35 06/22/18 23:19 91 17 35 06/22/18 23:00 89 16 121/49 (73) 97 06/22/18 22:00 78 16 121/49 (73) 98 06/22/18 21:23 75 15 35 06/22/18 21:00 78 16 134/45 (74) 98 06/22/18 20:00 78 16 116/50 (72) 98 06/22/18 20:00 Mechanical Ventilator Mechanical Ventilator 06/22/18 20:00 35 06/22/18 20:00 80 06/22/18 19:13 86 16 100 Mechanical Ventilator 35 06/22/18 19:04 84 19 35 06/22/18 19:04 84 19 99 Mechanical Ventilator 35 06/22/18 19:00 98.7 79 16 142/60 (87) 98 06/22/18 18:00 72 23 152/59 (90) 97 06/22/18 17:25 90 17 35 06/22/18 17:00 77 23 120/49 (72) 97 06/22/18 16:00 90 06/22/18 16:00 35 06/22/18 16:00 Mechanical Ventilator Mechanical Ventilator 06/22/18 16:00 99.0 91 23 170/66 (100) 97 06/22/18 15:26 92 168/77 06/22/18 15:15 112 23 100 Mechanical Ventilator 35 06/22/18 15:06 105 20 97 Mechanical Ventilator 35 06/22/18 15:06 105 20 35 06/22/18 15:00 102 23 178/60 (99) 97 06/22/18 14:00 101 24 168/60 (96) 96 06/22/18 13:00 89 18 145/56 (85) 96 06/22/18 12:48 86 16 35 Intake and Output 06/22/18 06/23/18 19:00 07:00 Intake Total 1536 ml 366 ml Output Total 890 ml 650 ml Balance 646 ml -284 ml Free Water 266 ml 266 ml IV Total 55 ml Tube Feeding 615 ml 40 ml Other 600 ml 60 ml Output Urine Total 890 ml 650 ml Laboratory Tests 06/22/18 13:09: Potassium Level 6.0*H 06/23/18 04:30: Potassium Level 4.8, White Blood Count 10.2, Red Blood Count 3.70L, Hemoglobin 8.4L, Hematocrit 27.0L, Mean Corpuscular Volume 73L, Mean Corpuscular Hemoglobin 22.6L, Mean Corpuscular Hemoglobin Concent 31.0L, Red Cell Distribution Width 18.6H, Platelet Count 185, Mean Platelet Volume 7.3, Neutrophils (%) (Auto) 68.2, Lymphocytes (%) (Auto) 19.3L, Monocytes (%) (Auto) 7.0, Eosinophils (%) (Auto) 4.9H, Basophils (%) (Auto) 0.7, Prothrombin Time 10.9, Prothromb Time International Ratio 1.0, Activated Partial Thromboplast Time 23, Sodium Level 138, Chloride Level 102, Carbon Dioxide Level 28, Anion Gap 8, Blood Urea Nitrogen 90H, Creatinine 3.8H, Estimat Glomerular Filtration Rate , Glucose Level 98, Calcium Level 8.8, Phosphorus Level 5.2H, Magnesium Level 1.6L, Total Bilirubin 0.2, Aspartate Amino Transf (AST/SGOT) 31, Alanine Aminotransferase (ALT/SGPT) 28, Alkaline Phosphatase 77, Total Protein 6.4, Albumin 2.4L, Globulin 4.0, Albumin/Globulin Ratio 0.6L 06/23/18 07:18: Arterial Blood pH 7.301L, Arterial Blood Partial Pressure CO2 54.7H, Arterial Blood Partial Pressure O2 216.1H, Arterial Blood HCO3 26.4H, Arterial Blood Oxygen Saturation 98.8, Arterial Blood Base Excess -0.5, David Test Positive Height (Feet): 5 Height (Inches): 4.00 Weight (Pounds): 115 EENT: other - vented Cardiovascular: tachycardia Respiratory/Chest: decreased breath sounds Abdomen: soft Objective no change Kendrick Jimenez MD Jun 23, 2018 12:35
[2018-06-23] MEDS ORDERED: fentaNYL 100 mcg/2 mL IV ONE (12:37)
[2018-06-23] MEDS ORDERED: Lidocaine 1% MPF 10mg/ml 5ml ONE (12:42)
[2018-06-23] MEDS ORDERED: Zemuron 50mg/5ml Inj IV ONE (13:13)
[2018-06-23] MEDS ORDERED: NS Irrig 1000ml ONE (13:30)
[2018-06-23] MEDS ORDERED: Sterile Water Irrig 1000ml IRRIG ONE (13:30)
--- NOTE | 2018-06-23 13:39 | Infectious Diseases Prog Note ---
Assessment/Plan Assessment/Plan 87 yo feamle with PMHx of COPD, HTN, and A.fib sent to the ED from her nuring home for SOB. Sepsis;improving - Likely PNA 06/21 CXR: Slightly increased right lung opacity, suspect increasing pleural fluid.Increased retrocardiac consolidation 06/17 CXR: Increasing right lung opacity, likely representing decreasing pleural fluid but may also represent increasing parenchymal consolidation 06/15 CXR: Increasing opacification right hemithorax, likely reflecting increasing pleural fluid but may also reflect increasing pulmonary parenchymal consolidation 06/14 CXR: Diffuse right lung hazy opacity appears similar to the prior exam. 06/12 CXR: : Hazy opacification of the right hemithorax, likely reflecting pleural fluid, is unchanged. 05/28/18 CXR with atalectasis vs consolidation in the right side. 06/01/18 CXR - Extensive right hemithorax opacification UA (-) sputum cx 06/15: MRSA (likely a colonizer at this point), ESBL E.coli Sputum Cx 05/28/18 - MRSA (Inf Neg) Urine legionella (-) Acute respiratory failure s/p intubation 06/16 Cdiff colitis -06/19 Cdif toxin a/b + R lung collapse: -06/16 CXR: Complete opacification of the right hemithorax. Probably due to complete atelectasis of the right lung, with evidence of abrupt occlusion of the rightmainstem bronchus. Given findings on prior chest radiographs, there is probablysignificant component of pleural effusion as well. Positive blood Cx - Likely contaminant BCx 05/28/18 - CoNS BCX 05/30/18 - NGTD Leukocytosis , recurrent mild- resolved Fever, improving COPD CAD A. fib PLAN - Continue Ertapenem #4 (abx d#8/) for ESBL Ecoli PNA -Continue PO Vancomycin #5/10 for Cdiff -06/20 SP Meropenem #5 -06/17 SP IV Vancomycin #21 -06/16 SP Cefepime #20 - Monitor CBC and Temps -f/u cx We will continue to follow Ms. Nowak during this hospitalization. Subjective Allergies: Coded Allergies: Mushroom (Verified Allergy, Severe, 05/28/18) MORPHINE (Unverified Allergy, Intermediate, Itching, 01/04/15) PENICILLINS (Unverified Allergy, Intermediate, Hives, 01/04/15) CELECOXIB (Verified Allergy, Mild, 01/15/09) Subjective afebrile mild leucocytosis resolved remains intubated Objective Vital Signs Last 24 Hour Vital Signs Date Time Temp Pulse Resp B/P (MAP) Pulse Ox O2 Delivery O2 Flow Rate FiO2 06/23/18 13:20 89 16 35 06/23/18 13:00 90 16 159/72 (101) 99 06/23/18 12:00 Mechanical Ventilator Mechanical Ventilator 06/23/18 12:00 98.2 96 25 143/48 (79) 97 06/23/18 12:00 35 06/23/18 12:00 89 06/23/18 11:24 93 16 100 Mechanical Ventilator 35 06/23/18 11:09 90 16 100 Mechanical Ventilator 35 06/23/18 11:06 85 16 35 06/23/18 11:00 87 16 150/52 (84) 99 06/23/18 10:00 84 16 124/60 (81) 99 06/23/18 09:00 97 18 122/52 (75) 98 06/23/18 08:32 91 16 35 06/23/18 08:00 98.5 96 18 144/85 (104) 98 06/23/18 08:00 Mechanical Ventilator Mechanical Ventilator 06/23/18 08:00 35 06/23/18 08:00 89 06/23/18 07:25 106 26 100 Mechanical Ventilator 35 06/23/18 07:15 101 22 98 Mechanical Ventilator 35 06/23/18 07:05 101 22 35 06/23/18 07:00 102 22 164/83 (110) 100 06/23/18 06:00 79 17 132/50 (77) 99 06/23/18 05:08 91 20 35 06/23/18 05:00 88 18 121/46 (71) 99 06/23/18 04:00 82 06/23/18 04:00 35 06/23/18 04:00 Mechanical Ventilator Mechanical Ventilator 06/23/18 04:00 98.8 88 32 130/48 (75) 97 06/23/18 03:26 92 18 100 Mechanical Ventilator 35 06/23/18 03:11 88 18 98 Mechanical Ventilator 35 06/23/18 03:10 88 18 35 06/23/18 03:00 88 18 172/69 (103) 99 06/23/18 02:00 74 18 138/52 (80) 99 06/23/18 01:00 68 18 120/51 (74) 99 06/23/18 00:52 71 16 35 06/23/18 00:17 78 152/54 06/23/18 00:00 Mechanical Ventilator Mechanical Ventilator 06/23/18 00:00 98.9 74 16 120/51 (74) 97 06/23/18 00:00 92 06/22/18 23:27 91 16 95 Mechanical Ventilator 35 06/22/18 23:19 91 17 99 Mechanical Ventilator 35 06/22/18 23:19 91 17 35 06/22/18 23:00 89 16 121/49 (73) 97 06/22/18 22:00 78 16 121/49 (73) 98 06/22/18 21:23 75 15 35 06/22/18 21:00 78 16 134/45 (74) 98 06/22/18 20:00 78 16 116/50 (72) 98 06/22/18 20:00 Mechanical Ventilator Mechanical Ventilator 06/22/18 20:00 35 06/22/18 20:00 80 06/22/18 19:13 86 16 100 Mechanical Ventilator 35 06/22/18 19:04 84 19 35 06/22/18 19:04 84 19 99 Mechanical Ventilator 35 06/22/18 19:00 98.7 79 16 142/60 (87) 98 06/22/18 18:00 72 23 152/59 (90) 97 06/22/18 17:25 90 17 35 06/22/18 17:00 77 23 120/49 (72) 97 06/22/18 16:00 90 06/22/18 16:00 35 06/22/18 16:00 Mechanical Ventilator Mechanical Ventilator 06/22/18 16:00 99.0 91 23 170/66 (100) 97 06/22/18 15:26 92 168/77 06/22/18 15:15 112 23 100 Mechanical Ventilator 35 06/22/18 15:06 105 20 97 Mechanical Ventilator 35 06/22/18 15:06 105 20 35 06/22/18 15:00 102 23 178/60 (99) 97 06/22/18 14:00 101 24 168/60 (96) 96 Height (Feet): 5 Height (Inches): 4.00 Weight (Pounds): 115 Objective General Appearance: no apparent distress, other - on intubated Neck: supple Cardiovascular: normal rate Respiratory/Chest: lungs clear Abdomen: normal bowel sounds, non tender, soft Extremities: trace edema Laboratory Tests Test 06/23/18 04:30 06/23/18 07:18 White Blood Count 10.2 K/UL (4.8-10.8) Red Blood Count 3.70 M/UL (4.20-5.40) L Hemoglobin 8.4 G/DL (12.0-16.0) L Hematocrit 27.0 % (37.0-47.0) L Mean Corpuscular Volume 73 FL (80-99) L Mean Corpuscular Hemoglobin 22.6 PG (27.0-31.0) L Mean Corpuscular Hemoglobin Concent 31.0 G/DL (32.0-36.0) L Red Cell Distribution Width 18.6 % (11.6-14.8) H Platelet Count 185 K/UL (150-450) Mean Platelet Volume 7.3 FL (6.5-10.1) Neutrophils (%) (Auto) 68.2 % (45.0-75.0) Lymphocytes (%) (Auto) 19.3 % (20.0-45.0) L Monocytes (%) (Auto) 7.0 % (1.0-10.0) Eosinophils (%) (Auto) 4.9 % (0.0-3.0) H Basophils (%) (Auto) 0.7 % (0.0-2.0) Prothrombin Time 10.9 SEC (9.30-11.50) Prothromb Time International Ratio 1.0 (0.9-1.1) Activated Partial Thromboplast Time 23 SEC (23-33) Sodium Level 138 MMOL/L (136-145) Potassium Level 4.8 MMOL/L (3.5-5.1) Chloride Level 102 MMOL/L (98-107) Carbon Dioxide Level 28 MMOL/L (21-32) Anion Gap 8 mmol/L (5-15) Blood Urea Nitrogen 90 mg/dL (7-18) H Creatinine 3.8 MG/DL (0.55-1.30) H Estimat Glomerular Filtration Rate mL/min (>60) Glucose Level 98 MG/DL (74-106) Calcium Level 8.8 MG/DL (8.5-10.1) Phosphorus Level 5.2 MG/DL (2.5-4.9) H Magnesium Level 1.6 MG/DL (1.8-2.4) L Total Bilirubin 0.2 MG/DL (0.2-1.0) Aspartate Amino Transf (AST/SGOT) 31 U/L (15-37) Alanine Aminotransferase (ALT/SGPT) 28 U/L (12-78) Alkaline Phosphatase 77 U/L (46-116) C-Reactive Protein, Quantitative Pending Total Protein 6.4 G/DL (6.4-8.2) Albumin 2.4 G/DL (3.4-5.0) L Globulin 4.0 g/dL Albumin/Globulin Ratio 0.6 (1.0-2.7) L Arterial Blood pH 7.301 (7.350-7.450) Arterial Blood Partial Pressure CO2 54.7 mmHg (35.0-45.0) H Arterial Blood Partial Pressure O2 216.1 mmHg (75.0-100.0) H Arterial Blood HCO3 26.4 mmol/L (22.0-26.0) H Arterial Blood Oxygen Saturation 98.8 % (95-100) Arterial Blood Base Excess -0.5 (-2-2) David Test Positive Current Medications Medications (Trade) Dose Ordered Sig/Ann Route PRN Reason Start Time Stop Time Status Last Admin Dose Admin Acetaminophen (Tylenol) 650 mg Q4H PRN ORAL Mild Pain/Temp > 100.5 06/16/18 19:19 07/16/18 19:18 06/21/18 04:03 Acetylcysteine (Mucomyst) 100 mg Q4HRT HHN 06/22/18 11:00 07/09/18 10:59 06/23/18 11:09 Albuterol/ Ipratropium (Albuterol/ Ipratropium) 3 ml Q4HRT PRN HHN Shortness of Breath 06/20/18 04:45 06/25/18 04:44 06/23/18 11:09 Amiodarone HCl (Cordarone) 200 mg BID ORAL 06/17/18 09:00 07/17/18 08:59 06/23/18 08:11 Chlorhexidine Gluconate (Myra-Hex 2%) 1 applic DAILY@2000 TOPIC 06/16/18 20:00 07/02/18 19:59 06/22/18 20:36 Ertapenem 0.5 gm/ Sodium Chloride 55 ml @ 110 mls/hr Q24H IVPB 06/20/18 17:30 06/25/18 17:29 06/22/18 17:59 Haloperidol Lactate (Haldol) 5 mg Q6H PRN IM Agitation 06/16/18 19:20 07/16/18 19:19 Heparin Sodium (Porcine) (Heparin 5000 units/ml) 5,000 units EVERY 12 HOURS SUBQ 06/16/18 21:00 06/27/18 08:59 06/21/18 20:27 Lactobacillus Acidophilus (Culturelle) 1 tab TWICE A DAY ORAL 06/22/18 18:00 07/22/18 17:59 06/23/18 08:12 Lorazepam (Ativan 2mg/ml 1ml) 0.5 mg Q3H PRN IV For Anxiety 06/16/18 19:20 06/23/18 19:19 06/20/18 20:36 Metoprolol Tartrate (Lopressor) 5 mg Q6H PRN IVP SBP > 125 06/16/18 19:20 07/16/18 19:19 06/23/18 00:17 Nitroglycerin (Ntg) 0.4 mg Q5M PRN SL Prn Chest Pain 06/16/18 19:20 06/27/18 13:29 Ondansetron HCl (Zofran) 4 mg Q6H PRN IVP Nausea & Vomiting 06/16/18 19:21 07/16/18 19:20 Pantoprazole (Protonix) 40 mg DAILY IVP 06/20/18 20:00 07/20/18 19:59 06/23/18 08:11 Quetiapine Fumarate (SEROquel) 25 mg Q6H PRN ORAL For Anxiety 06/16/18 19:21 07/16/18 19:20 06/23/18 08:11 Vancomycin HCl (Firvanq) 125 mg FOUR TIMES A DAY NG 06/19/18 13:00 06/26/18 12:59 06/23/18 08:11 Natty Hernandes M.D. Jun 23, 2018 13:39
--- NOTE | 2018-06-23 13:47 | NUR ---
NURSE NOTES: Pt taken down to OR for tracheostomy procedure. Will continue to monitor.
--- NOTE | 2018-06-23 13:59 | Pulmonolgy Critical Care Note ---
Critical Care - Asmt/Plan Assessment/Plan: Problem List: 1. Acute on chronic hypercapnic respiratory failure -intubated 06/02; extubated 06/10 -reintubated 06/17 2. R lung collapse, mucous plugging - resolved 3. Pulmonary edema 4. chronic obstructive asthma 5. Pneumonia 6. Hx afib 7. MRSA pna, recurrent fever and increased leukocytosis 8. ESBL E.coli pna 9. C.diff colitis 10. Pleural effusion Plan: -cont mechanical ventilatory support -weaning trials as tolerated -Trach placement today -aggressive pulmonary hygiene with duonebs/mucomyst/suctioning q4 -chest PT R lung -repeat CXR shows more effusion, monitor -monitor volumes, hold IVF, may consider lasix -monitor renal function, rising BUN -abx per ID Time Spent (Minutes): 40 - cc Critical Care - Objective Last 24 Hour Vital Signs Date Time Temp Pulse Resp B/P (MAP) Pulse Ox O2 Delivery O2 Flow Rate FiO2 06/23/18 13:20 89 16 35 06/23/18 13:00 90 16 159/72 (101) 99 06/23/18 12:00 Mechanical Ventilator Mechanical Ventilator 06/23/18 12:00 98.2 96 25 143/48 (79) 97 06/23/18 12:00 35 06/23/18 12:00 89 06/23/18 11:24 93 16 100 Mechanical Ventilator 35 06/23/18 11:09 90 16 100 Mechanical Ventilator 35 06/23/18 11:06 85 16 35 06/23/18 11:00 87 16 150/52 (84) 99 06/23/18 10:00 84 16 124/60 (81) 99 06/23/18 09:00 97 18 122/52 (75) 98 06/23/18 08:32 91 16 35 06/23/18 08:00 98.5 96 18 144/85 (104) 98 06/23/18 08:00 Mechanical Ventilator Mechanical Ventilator 06/23/18 08:00 35 06/23/18 08:00 89 06/23/18 07:25 106 26 100 Mechanical Ventilator 35 06/23/18 07:15 101 22 98 Mechanical Ventilator 35 06/23/18 07:05 101 22 35 06/23/18 07:00 102 22 164/83 (110) 100 06/23/18 06:00 79 17 132/50 (77) 99 06/23/18 05:08 91 20 35 06/23/18 05:00 88 18 121/46 (71) 99 06/23/18 04:00 82 06/23/18 04:00 35 06/23/18 04:00 Mechanical Ventilator Mechanical Ventilator 06/23/18 04:00 98.8 88 32 130/48 (75) 97 06/23/18 03:26 92 18 100 Mechanical Ventilator 35 06/23/18 03:11 88 18 98 Mechanical Ventilator 35 06/23/18 03:10 88 18 35 06/23/18 03:00 88 18 172/69 (103) 99 06/23/18 02:00 74 18 138/52 (80) 99 06/23/18 01:00 68 18 120/51 (74) 99 06/23/18 00:52 71 16 35 06/23/18 00:17 78 152/54 06/23/18 00:00 Mechanical Ventilator Mechanical Ventilator 06/23/18 00:00 98.9 74 16 120/51 (74) 97 06/23/18 00:00 92 06/22/18 23:27 91 16 95 Mechanical Ventilator 35 06/22/18 23:19 91 17 99 Mechanical Ventilator 35 06/22/18 23:19 91 17 35 06/22/18 23:00 89 16 121/49 (73) 97 06/22/18 22:00 78 16 121/49 (73) 98 06/22/18 21:23 75 15 35 06/22/18 21:00 78 16 134/45 (74) 98 06/22/18 20:00 78 16 116/50 (72) 98 06/22/18 20:00 Mechanical Ventilator Mechanical Ventilator 06/22/18 20:00 35 06/22/18 20:00 80 06/22/18 19:13 86 16 100 Mechanical Ventilator 35 06/22/18 19:04 84 19 35 06/22/18 19:04 84 19 99 Mechanical Ventilator 35 06/22/18 19:00 98.7 79 16 142/60 (87) 98 06/22/18 18:00 72 23 152/59 (90) 97 06/22/18 17:25 90 17 35 06/22/18 17:00 77 23 120/49 (72) 97 06/22/18 16:00 90 06/22/18 16:00 35 06/22/18 16:00 Mechanical Ventilator Mechanical Ventilator 06/22/18 16:00 99.0 91 23 170/66 (100) 97 06/22/18 15:26 92 168/77 06/22/18 15:15 112 23 100 Mechanical Ventilator 35 06/22/18 15:06 105 20 97 Mechanical Ventilator 35 06/22/18 15:06 105 20 35 06/22/18 15:00 102 23 178/60 (99) 97 06/22/18 14:00 101 24 168/60 (96) 96 Status: somnolent Lungs: rales Heart: HR/BP stable Abdomen: soft, non-tender Extremities: edema Critical Care - Subjective ROS Limited/Unobtainable: Yes Interval Events: No acute events. Arousable and gets agitated. Trach planned today. EKG Rhythm: Sinus Rhythm FI02: 35 Vent Support Breath Rate: 16 Vent Support Mode: AC Vent Tidal Volume: 400 Sputum Amount: Small PEEP: 5.0 PIP: 34 Tube Feeding Amount: 0 I&O: Intake and Output 06/22/18 06/23/18 19:00 07:00 Intake Total 1536 ml 366 ml Output Total 890 ml 650 ml Balance 646 ml -284 ml Free Water 266 ml 266 ml IV Total 55 ml Tube Feeding 615 ml 40 ml Other 600 ml 60 ml Output Urine Total 890 ml 650 ml ET-Tube: 7.5 ET Position: 23 Varinder De Souza MD Jun 23, 2018 13:59
--- NOTE | 2018-06-23 14:28 | Immediate Post-Op Evaluation ---
Immediate Post-Op Evalulation Immediate Post-Op Evalulation Procedure: Tracheostomy Date of Evaluation: Jun 23, 2018 Time of Evaluation: 14:27 IV Fluids: 200 Blood Products: none Estimated Blood Loss: min Urinary Output: n/a Blood Pressure Systolic: 136 Blood Pressure Diastolic: 56 Pulse Rate: 86 Respiratory Rate: 20 O2 Sat by Pulse Oximetry: 99 Temperature (Fahrenheit): 97.8 Pain Score (1-10): 1 Nausea: No Vomiting: No Patient Status: no response, ventilated, none Hydration Status: adequate Aníbal Moody MD Jun 23, 2018 14:28
[2018-06-23] MEDS ORDERED: NS 275ml ONE (14:35)
[2018-06-23] MEDS ORDERED: D5NS 1000ml IV ONE (14:35)
[2018-06-23] MEDS ORDERED: D5 1/2NS 1000ml IV ONE (14:35)
[2018-06-23] MEDS ORDERED: Sterile Water For Inj 1000ml IV ONE (14:35)
[2018-06-23] MEDS ORDERED: Tubing IV Secondary IV ONE ×2 (14:35→14:41)
--- NOTE | 2018-06-23 14:39 | NUR ---
NURSE NOTES: Patient received from Nathaniel Vieyra from OR. Pt also accompanied by anesthesia dr. Pt had trachestomy madan #8. VSS. Will continue to monitor.
--- NOTE | 2018-06-23 14:42 | Brief Operative Note ---
Immediate Post Operative Note Operative Note Pre-op Diagnosis: respiratory insufficiency requiring prolonged ventilatory support Procedure: tracheostomy Post-op Diagnosis: same as pre-op Surgeon: hunter Anesthesiologist: lukasz Anesthesia: general, local Specimen: none Complications: none Condition: stable Fluids: see records Estimated Blood Loss: minimal Drains: none Implant(s) used?: Christiano Pham Jun 23, 2018 14:42
[2018-06-23] MEDS: Ertapenem 0.5 GM in NS 55 ML IVPB SCH (17:39)
--- NOTE | 2018-06-23 17:46 | NUR ---
NURSE NOTES: Turned and repositioned pt. No acute distress. Will continue to monitor.
--- NOTE | 2018-06-23 19:12 | NUR ---
HAND-OFF: Report given to Ria JI.
--- NOTE | 2018-06-23 19:12 | Cardiology Progress Note ---
Assessment/Plan Assessment/Plan COPD, congestive heart failure, atrial fibrillation sinus tachy agitation right lung collapse? anemia pleural effusion respirator failure tachy acute on chronic renal failure pleural effusion tele sinus with pvc vent suppor t abx pulm rxn bp is fine blood cx previously neg beta evelyn iv or via ngt prn increase amiod to 200 will decrease to qd hemodynamically stable at the moment cr better Subjective ROS Limited/Unobtainable: Yes Subjective in icu on vent in isolation Objective Last 24 Hour Vital Signs Date Time Temp Pulse Resp B/P (MAP) Pulse Ox O2 Delivery O2 Flow Rate FiO2 06/23/18 18:00 88 16 138/52 (80) 98 06/23/18 17:00 93 16 144/54 (84) 96 06/23/18 16:42 90 16 35 06/23/18 16:00 Mechanical Ventilator Mechanical Ventilator 06/23/18 16:00 94 06/23/18 16:00 97.8 99 11 138/53 (81) 97 06/23/18 16:00 35 06/23/18 15:35 104 17 97 Mechanical Ventilator 35 06/23/18 15:25 97 16 35 06/23/18 15:25 97 16 97 Mechanical Ventilator 35 06/23/18 15:00 102 10 151/57 (88) 94 06/23/18 14:28 86 20 99 06/23/18 13:20 89 16 35 06/23/18 13:00 90 16 159/72 (101) 99 06/23/18 12:00 Mechanical Ventilator Mechanical Ventilator 06/23/18 12:00 98.2 96 25 143/48 (79) 97 06/23/18 12:00 35 06/23/18 12:00 89 06/23/18 11:24 93 16 100 Mechanical Ventilator 35 06/23/18 11:09 90 16 100 Mechanical Ventilator 35 06/23/18 11:06 85 16 35 06/23/18 11:00 87 16 150/52 (84) 99 06/23/18 10:00 84 16 124/60 (81) 99 06/23/18 09:00 97 18 122/52 (75) 98 06/23/18 08:32 91 16 35 06/23/18 08:00 98.5 96 18 144/85 (104) 98 06/23/18 08:00 Mechanical Ventilator Mechanical Ventilator 06/23/18 08:00 35 06/23/18 08:00 89 06/23/18 07:25 106 26 100 Mechanical Ventilator 35 06/23/18 07:15 101 22 98 Mechanical Ventilator 35 06/23/18 07:05 101 22 35 06/23/18 07:00 102 22 164/83 (110) 100 06/23/18 06:00 79 17 132/50 (77) 99 06/23/18 05:08 91 20 35 06/23/18 05:00 88 18 121/46 (71) 99 06/23/18 04:00 82 06/23/18 04:00 35 06/23/18 04:00 Mechanical Ventilator Mechanical Ventilator 06/23/18 04:00 98.8 88 32 130/48 (75) 97 06/23/18 03:26 92 18 100 Mechanical Ventilator 35 06/23/18 03:11 88 18 98 Mechanical Ventilator 35 06/23/18 03:10 88 18 35 06/23/18 03:00 88 18 172/69 (103) 99 06/23/18 02:00 74 18 138/52 (80) 99 06/23/18 01:00 68 18 120/51 (74) 99 06/23/18 00:52 71 16 35 06/23/18 00:17 78 152/54 06/23/18 00:00 Mechanical Ventilator Mechanical Ventilator 06/23/18 00:00 98.9 74 16 120/51 (74) 97 06/23/18 00:00 92 06/22/18 23:27 91 16 95 Mechanical Ventilator 35 06/22/18 23:19 91 17 99 Mechanical Ventilator 35 06/22/18 23:19 91 17 35 06/22/18 23:00 89 16 121/49 (73) 97 06/22/18 22:00 78 16 121/49 (73) 98 06/22/18 21:23 75 15 35 06/22/18 21:00 78 16 134/45 (74) 98 06/22/18 20:00 78 16 116/50 (72) 98 06/22/18 20:00 Mechanical Ventilator Mechanical Ventilator 06/22/18 20:00 35 06/22/18 20:00 80 06/22/18 19:13 86 16 100 Mechanical Ventilator 35 General Appearance: no apparent distress, on vent, patient on isolation Intake and Output 06/22/18 06/23/18 19:00 07:00 Intake Total 1536 ml 366 ml Output Total 890 ml 650 ml Balance 646 ml -284 ml Free Water 266 ml 266 ml IV Total 55 ml Tube Feeding 615 ml 40 ml Other 600 ml 60 ml Output Urine Total 890 ml 650 ml Laboratory Tests Test 06/23/18 04:30 06/23/18 07:18 White Blood Count 10.2 K/UL (4.8-10.8) Red Blood Count 3.70 M/UL (4.20-5.40) L Hemoglobin 8.4 G/DL (12.0-16.0) L Hematocrit 27.0 % (37.0-47.0) L Mean Corpuscular Volume 73 FL (80-99) L Mean Corpuscular Hemoglobin 22.6 PG (27.0-31.0) L Mean Corpuscular Hemoglobin Concent 31.0 G/DL (32.0-36.0) L Red Cell Distribution Width 18.6 % (11.6-14.8) H Platelet Count 185 K/UL (150-450) Mean Platelet Volume 7.3 FL (6.5-10.1) Neutrophils (%) (Auto) 68.2 % (45.0-75.0) Lymphocytes (%) (Auto) 19.3 % (20.0-45.0) L Monocytes (%) (Auto) 7.0 % (1.0-10.0) Eosinophils (%) (Auto) 4.9 % (0.0-3.0) H Basophils (%) (Auto) 0.7 % (0.0-2.0) Prothrombin Time 10.9 SEC (9.30-11.50) Prothromb Time International Ratio 1.0 (0.9-1.1) Activated Partial Thromboplast Time 23 SEC (23-33) Sodium Level 138 MMOL/L (136-145) Potassium Level 4.8 MMOL/L (3.5-5.1) Chloride Level 102 MMOL/L (98-107) Carbon Dioxide Level 28 MMOL/L (21-32) Anion Gap 8 mmol/L (5-15) Blood Urea Nitrogen 90 mg/dL (7-18) H Creatinine 3.8 MG/DL (0.55-1.30) H Estimat Glomerular Filtration Rate mL/min (>60) Glucose Level 98 MG/DL (74-106) Calcium Level 8.8 MG/DL (8.5-10.1) Phosphorus Level 5.2 MG/DL (2.5-4.9) H Magnesium Level 1.6 MG/DL (1.8-2.4) L Total Bilirubin 0.2 MG/DL (0.2-1.0) Aspartate Amino Transf (AST/SGOT) 31 U/L (15-37) Alanine Aminotransferase (ALT/SGPT) 28 U/L (12-78) Alkaline Phosphatase 77 U/L (46-116) C-Reactive Protein, Quantitative 4.7 mg/dL (0.00-0.90) H Total Protein 6.4 G/DL (6.4-8.2) Albumin 2.4 G/DL (3.4-5.0) L Globulin 4.0 g/dL Albumin/Globulin Ratio 0.6 (1.0-2.7) L Arterial Blood pH 7.301 (7.350-7.450) Arterial Blood Partial Pressure CO2 54.7 mmHg (35.0-45.0) H Arterial Blood Partial Pressure O2 216.1 mmHg (75.0-100.0) H Arterial Blood HCO3 26.4 mmol/L (22.0-26.0) H Arterial Blood Oxygen Saturation 98.8 % (95-100) Arterial Blood Base Excess -0.5 (-2-2) David Test Positive Geoffrey Sandhu MD Jun 23, 2018 19:12
--- NOTE | 2018-06-23 19:13 | NUR ---
NURSE NOTES: Endorsement received from MARGY Velázquez. Patient opens eyes spontaneously. S/P trache placement today. Shiley 8.0. Dressing dry, no bleeding noted. AC 16, Vt 400, PEEP 5, 35% FiO2. With NGT at right nare. Patent and intact. Rechecked placement per auscultation. No residual noted. On NPO. With right upper arm PICC double lumen. Red port with occlusion. With Sinclair Cath F 16 draining to urimeter. With rectal tube connected to bag. On P200 mattress. Head of bed elevated. Bed locked and in low position. Call light within reach. Bed alarm on.
--- NOTE | 2018-06-23 19:45 | Operative Note - Dictated ---
DATE OF OPERATION: 06/23/2018 PREOPERATIVE DIAGNOSIS: Respiratory insufficiency, requiring prolonged ventilatory support. POSTOPERATIVE DIAGNOSIS: Respiratory insufficiency, requiring prolonged ventilatory support. OPERATION PERFORMED: Tracheostomy. ATTENDING SURGEON: Christiano Garcia M.D. RN ALLERGY: None. ANESTHESIOLOGIST: Aníbal Moody M.D. ANESTHESIA: General INSIGHTS ANALYST plus local. ESTIMATED BLOOD LOSS: Minimal. IV FLUIDS: Please see anesthesia records. COMPLICATIONS: None. DRAINS: None. WOUND CLASSIFICATION: Class I. COUNTS: Sponge and needle count correct x2. IMPLANTS: An 8-Pashto Shiley tracheostomy. ANTIBIOTICS: The patient is on scheduled IV antibiotics for acute active inflammatory process. INDICATIONS FOR PROCEDURE: This is an 87-year-old female who has been hospitalized in the intensive care unit of [facility] for some time now with respiratory insufficiency requiring intubation and ventilatory support. On multiple occasions, the patient has been tried to be weaned from the vent support, but unfortunately has not been successful. Given the above, tracheostomy was recommended and indicated. Long discussion was had with the patient's family who expressed understanding and consented to surgery. OPERATIVE NOTE: The patient was taken to the operating room and placed on the operating table in supine position wound and made comfortable. All bony prominences well padded. Prior to entering the operating room, the patient already had an NG tube and ET tube in place, plus other lines and catheters. Preoperative time-out was taken identifying the patient, procedure, operative staff, and surgical staff. General anesthesia was induced. A shoulder roll was placed. The neck was hyperextended. The neck was then prepped and draped in standard surgical fashion. Anatomy was palpated and identified and a skin incision was made two fingerbreadths above the sternal notch. Of note, local anesthetic was infiltrated throughout the procedure for the patient's comfort. Skin incision was carried down through the subcutaneous tissue, platysma to the median raphe of the strap muscles. Median raphe was divided and the trachea was exposed. A tracheal hook was placed and trachea was stabilized in midline. The first and second tracheal rings were identified and dissected out. Following this, a Anjelica flap window was made in between the first and second tracheal rings without complication. With the assistance of the anesthesiologist, the ET tube was identified and the balloon desufflated and slowly withdrawn. Once above the flap window, an 8-Pashto tracheostomy was inserted under direct visualization without complication. Following this, the balloon of the tracheostomy was insufflated and the patient was ventilated through the tracheostomy with good end-tidal CO2 and volumes. At this time, the wound was irrigated and skin reapproximated using 2-0 Monocryl interrupted sutures muscled by tethering the trachea to the patient's skin using 2-0 Monocryl sutures. Dressings and trach tie were applied. The patient tolerated the procedure well, was taken directly back to the intensive care unit in stable condition. Christiano Garcia M.D. DR: LE JOB#: [id number] CC:
[2018-06-23] MEDS: Dyna-Hex 2% Top Sol 2oz TOPIC SCH (20:34)
--- NOTE | 2018-06-23 21:00 | NUR ---
NURSE NOTES: Heparin on hold prior to PEG placement tomorrow
--- NOTE | 2018-06-23 21:03 | General Progress Note ---
Assessment/Plan Status: progressing Assessment/Plan This is an 87-year-old female admitted with chronic obstructive pulmonary disease exacerbation, right lower lobe infiltrate/pneumonia with altered mental status and acute kidney injury. The patient will be admitted to [facility] with the following medical problems. 1. Chronic obstructive pulmonary disease exacerbation and pneumonia. The patient has been seen by Pulmonary. Infectious Disease has been consulted, pancultured. IV antibiotics per ID. Continue with BiPAP and suction p.r.n. Transition to Venturi-mask when stable. 2. Acute kidney injury. We will monitor I's and O's, gentle intravenous fluids. Repeat a BMP in a.m. Consider Nephrology consult. 3. History of chronic atrial fibrillation. Continue with amiodarone. The patient is in sinus rhythm at this time. 4. History of hypertension. Continue with amlodipine and hold for systolic blood pressure less than 110. 5. Altered mental status, most likely from above conditions. We will keep n.p.o. except for medications and start IV fluids. 6. DVT prophylaxis with heparin subcutaneous and SCDs. 7. The patient is Full Code per policy. We will discuss with the family. 8. hypokalmia 9. Anemia 10. CHf acute on chronic 11. leucocytosis 12. ARF? ATN 13. C dif positive 14. hyperkalemia 15. pleural effusion 16. S/p Tracheostomy 06/22/18 Plan: - now intubated in icu - continue respiratory support - consider repeat Lasix today - aggressive pulmonary suction - HD on hold as patient putting out better urine and createnine is improving - antibiotics per ID - on oral vanco - am labs - weaning off vent per pulmonary - Gi prophylaxis with protonix iv 40 mg daily - possible PEG Wednesday - s/p Kayexalate discussed with Dr. De Souza will need LTAC possible Tran Subjective Date patient seen: Jun 23, 2018 ROS Limited/Unobtainable: Yes Allergies: Coded Allergies: Mushroom (Verified Allergy, Severe, 05/28/18) MORPHINE (Unverified Allergy, Intermediate, Itching, 01/04/15) PENICILLINS (Unverified Allergy, Intermediate, Hives, 01/04/15) CELECOXIB (Verified Allergy, Mild, 01/15/09) Subjective patient is now reintubated, in renal failure, HD on hold as making better urine , C dif positive on ngt vanco, s/p tracheostomy Objective Last 24 Hour Vital Signs Date Time Temp Pulse Resp B/P (MAP) Pulse Ox O2 Delivery O2 Flow Rate FiO2 06/23/18 19:27 104 16 99 Mechanical Ventilator 35 06/23/18 19:17 98 17 98 Mechanical Ventilator 35 06/23/18 19:16 98 17 35 06/23/18 19:00 98 20 159/59 (92) 98 06/23/18 18:00 88 16 138/52 (80) 98 06/23/18 17:00 93 16 144/54 (84) 96 06/23/18 16:42 90 16 35 06/23/18 16:00 Mechanical Ventilator Mechanical Ventilator 06/23/18 16:00 94 06/23/18 16:00 97.8 99 11 138/53 (81) 97 06/23/18 16:00 35 06/23/18 15:35 104 17 97 Mechanical Ventilator 35 06/23/18 15:25 97 16 35 06/23/18 15:25 97 16 97 Mechanical Ventilator 35 06/23/18 15:00 102 10 151/57 (88) 94 06/23/18 14:28 86 20 99 06/23/18 13:20 89 16 35 06/23/18 13:00 90 16 159/72 (101) 99 06/23/18 12:00 Mechanical Ventilator Mechanical Ventilator 06/23/18 12:00 98.2 96 25 143/48 (79) 97 06/23/18 12:00 35 06/23/18 12:00 89 06/23/18 11:24 93 16 100 Mechanical Ventilator 35 06/23/18 11:09 90 16 100 Mechanical Ventilator 35 06/23/18 11:06 85 16 35 06/23/18 11:00 87 16 150/52 (84) 99 06/23/18 10:00 84 16 124/60 (81) 99 06/23/18 09:00 97 18 122/52 (75) 98 06/23/18 08:32 91 16 35 06/23/18 08:00 98.5 96 18 144/85 (104) 98 06/23/18 08:00 Mechanical Ventilator Mechanical Ventilator 06/23/18 08:00 35 06/23/18 08:00 89 06/23/18 07:25 106 26 100 Mechanical Ventilator 35 06/23/18 07:15 101 22 98 Mechanical Ventilator 35 06/23/18 07:05 101 22 35 06/23/18 07:00 102 22 164/83 (110) 100 06/23/18 06:00 79 17 132/50 (77) 99 06/23/18 05:08 91 20 35 06/23/18 05:00 88 18 121/46 (71) 99 06/23/18 04:00 82 06/23/18 04:00 35 06/23/18 04:00 Mechanical Ventilator Mechanical Ventilator 06/23/18 04:00 98.8 88 32 130/48 (75) 97 06/23/18 03:26 92 18 100 Mechanical Ventilator 35 06/23/18 03:11 88 18 98 Mechanical Ventilator 35 06/23/18 03:10 88 18 35 06/23/18 03:00 88 18 172/69 (103) 99 06/23/18 02:00 74 18 138/52 (80) 99 06/23/18 01:00 68 18 120/51 (74) 99 06/23/18 00:52 71 16 35 06/23/18 00:17 78 152/54 06/23/18 00:00 Mechanical Ventilator Mechanical Ventilator 06/23/18 00:00 98.9 74 16 120/51 (74) 97 06/23/18 00:00 92 06/22/18 23:27 91 16 95 Mechanical Ventilator 35 06/22/18 23:19 91 17 99 Mechanical Ventilator 35 06/22/18 23:19 91 17 35 06/22/18 23:00 89 16 121/49 (73) 97 06/22/18 22:00 78 16 121/49 (73) 98 06/22/18 21:23 75 15 35 Intake and Output 06/22/18 06/23/18 19:00 07:00 Intake Total 1536 ml 366 ml Output Total 890 ml 650 ml Balance 646 ml -284 ml Free Water 266 ml 266 ml IV Total 55 ml Tube Feeding 615 ml 40 ml Other 600 ml 60 ml Output Urine Total 890 ml 650 ml Laboratory Tests 06/23/18 04:30: White Blood Count 10.2, Red Blood Count 3.70L, Hemoglobin 8.4L, Hematocrit 27.0L , Mean Corpuscular Volume 73L, Mean Corpuscular Hemoglobin 22.6L, Mean Corpuscular Hemoglobin Concent 31.0L, Red Cell Distribution Width 18.6H, Platelet Count 185, Mean Platelet Volume 7.3, Neutrophils (%) (Auto) 68.2, Lymphocytes (%) (Auto) 19.3L, Monocytes (%) (Auto) 7.0, Eosinophils (%) (Auto) 4.9H, Basophils (%) (Auto) 0.7, Prothrombin Time 10.9, Prothromb Time International Ratio 1.0, Activated Partial Thromboplast Time 23, Sodium Level 138, Potassium Level 4.8, Chloride Level 102, Carbon Dioxide Level 28, Anion Gap 8, Blood Urea Nitrogen 90H, Creatinine 3.8H, Estimat Glomerular Filtration Rate , Glucose Level 98, Calcium Level 8.8, Phosphorus Level 5.2H, Magnesium Level 1.6L, Total Bilirubin 0.2, Aspartate Amino Transf (AST/SGOT) 31, Alanine Aminotransferase (ALT/SGPT) 28, Alkaline Phosphatase 77, C-Reactive Protein, Quantitative 4.7H, Total Protein 6.4, Albumin 2.4L, Globulin 4.0, Albumin/ Globulin Ratio 0.6L 06/23/18 07:18: Arterial Blood pH 7.301L, Arterial Blood Partial Pressure CO2 54.7H, Arterial Blood Partial Pressure O2 216.1H, Arterial Blood HCO3 26.4H, Arterial Blood Oxygen Saturation 98.8, Arterial Blood Base Excess -0.5, David Test Positive Height (Feet): 5 Height (Inches): 4.00 Weight (Pounds): 115 General Appearance: no apparent distress, alert EENT: PERRL/EOMI, pharynx normal Cardiovascular: normal rate, regular rhythm, no gallop/murmur, no JVD Respiratory/Chest: decreased breath sounds Abdomen: non tender, soft, no mass Extremities: non-tender, normal inspection, no calf tenderness Edema: no edema noted Arm (L), no edema noted Arm (R), no edema noted Leg (L), no edema noted Leg (R), no edema noted Pedal (L), no edema noted Pedal (R), no edema noted Generalized Neurologic: alert Skin: warm/dry Lymphatic: normal anterior cervical (L), normal anterior cervical (R), normal posterior cervical (L), normal posterior cervical (R), normal submandibular (L) , normal submandibular (R), normal supraclavicular (L), normal supraclavicular ( R), normal axillary (L), normal axillary (R), normal inguinal (L), normal inguinal (R), normal other Cruz Valderrama MD Jun 23, 2018 21:03
--- NOTE | 2018-06-23 23:00 | NUR ---
NURSE NOTES: Secretions suctioned, scant pinkish secretions from trache. Patient repositioned.
[2018-06-24] VITALS (23 sets, daily range): BP systolic 121–177; BP diastolic 44–115
--- NOTE | 2018-06-24 01:00 | NUR ---
NURSE NOTES: Patient asleep. No shortness of breath. No bleeding from tracheostomy.
--- NOTE | 2018-06-24 03:00 | NUR ---
NURSE NOTES: Bed bath, oral care, change of linens done.
[2018-06-24] MEDS: Albuterol/Ipratropium 3ml neb HHN PRN ×6 (03:36→23:02)
[2018-06-24] MEDS: Metoprolol 5mg/5ml Inj IVP PRN ×3 (04:42→17:49)
--- NOTE | 2018-06-24 05:00 | NUR ---
NURSE NOTES: SBP >125mmHg. PRN metoprolol given
[2018-06-24 06:17] LABS: BASOPHILS % (AUTO) 0.8 % (0.0-2.0); EOSINOPHILS % (AUTO) 5.1 % (0.0-3.0); HEMATOCRIT 26.1 % (37.0-47.0); MEAN CORPUSCULAR VOLUME 73 FL (80-99); MONOCYTES % (AUTO) 7.2 % (1.0-10.0); PLATELET COUNT 195 K/UL (150-450); RED BLOOD COUNT 3.58 M/UL (4.20-5.40); RED CELL DISTRIBUTION WIDTH 17.8 % (11.6-14.8); WHITE BLOOD COUNT 9.3 K/UL (4.8-10.8)
--- NOTE | 2018-06-24 07:13 | NUR ---
HAND-OFF: Report given to MARGY Mckeon.
--- NOTE | 2018-06-24 07:15 | NUR ---
NURSE NOTES: Report received from Ria Terrell RN.Pt resting in bed asleep noted no resp distress,with trach tube to vent on current settings,tolerating well,no signs of pain or discomfort,SR on the monitor,with clamped NGT,kept NPO for Peg tube insertion,Rectal tube in placed,to liquid brown stools,Sinclair cath to BSD draining yellow urine, IV site to MILY PICC line intact,skin warm and dry,SR up x2 bilat wrist restraints in placed,HOB elevated,bed lock in lowest position,will continue with plans of care.
[2018-06-24 07:20] LABS: ALANINE AMINOTRANSFERASE 22 U/L (12-78); ALBUMIN 2.3 G/DL (3.4-5.0); ALBUMIN/GLOBULIN RATIO 0.6 (1.0-2.7); ALKALINE PHOSPHATASE 67 U/L (46-116); ANION GAP 10 mmol/L (5-15); ASPARTATE AMINO TRANSFERASE 26 U/L (15-37); BILIRUBIN,TOTAL 0.3 MG/DL (0.2-1.0); BLOOD UREA NITROGEN 88 mg/dL (7-18); CALCIUM 8.8 MG/DL (8.5-10.1); CARBON DIOXIDE 27 MMOL/L (21-32); CHLORIDE 102 MMOL/L (98-107); CREATININE 3.6 MG/DL (0.55-1.30); PHOSPHORUS 5.9 MG/DL (2.5-4.9); POTASSIUM 4.6 MMOL/L (3.5-5.1); SODIUM 139 MMOL/L (136-145)
--- NOTE | 2018-06-24 07:21 | 48 Hour Post Anesthesia Eval ---
Post Anesthesia Evaluation Procedure: Tracheostomy Date of Evaluation: Jun 24, 2018 Time of Evaluation: 07:20 Blood Pressure Systolic: 134 0: 68 Pulse Rate: 72 Respiratory Rate: 18 Temperature (Fahrenheit): 97.6 O2 Sat by Pulse Oximetry: 97 Airway: other - tracheostomy in place vent dependent Nausea: No Vomiting: No Pain Intensity: 0 Hydration Status: adequate Cardiopulmonary Status: stable Mental Status/LOC: patient returned to baseline Follow-up Care/Observations: n/a Post-Anesthesia Complications: none Follow-up care needed: N/A Aníbal Moody MD Jun 24, 2018 07:21
--- NOTE | 2018-06-24 08:27 | Nephrology Progress Note ---
Assessment/Plan Problem List: (1) Acute renal failure Assessment: Cr lowering (2) Anuria (3) Acute respiratory failure Assessment: on vent (4) Dementia (5) Afib Assessment Cr lowering Urine out put rising Cr lowering other conditions: (1) Acute respiratory failure (2) Aspiration pneumonia (3) Acute encephalopathy (4) Pleural effusion (5) COPD (chronic obstructive pulmonary disease) (6) CAD (coronary artery disease) (7) Dementia Plan Mag So4 ordered Now trached and Pegged Cr lowering- Urine out put higher monitor vanco level family agree with HD . but no need for HD at this time intubated now ? Trach?? K and Phos and Mag as needed Anemia porter Adjust BP meds fu Lytes Gastric support per orders Subjective ROS Limited/Unobtainable: Yes Objective Objective Last 24 Hour Vital Signs Date Time Temp Pulse Resp B/P (MAP) Pulse Ox O2 Delivery O2 Flow Rate FiO2 06/24/18 08:13 Mechanical Ventilator Mechanical Ventilator 06/24/18 08:10 35 06/24/18 08:09 82 16 100 Mechanical Ventilator 35 06/24/18 08:01 99.2 17 148/58 (88) 99 06/24/18 07:21 72 18 97 06/24/18 07:13 90 19 35 06/24/18 07:00 91 20 173/62 (99) 98 06/24/18 06:00 88 17 147/115 (126) 99 06/24/18 05:11 78 16 35 06/24/18 05:00 87 17 153/56 (88) 99 06/24/18 04:42 86 162/57 06/24/18 04:00 92 06/24/18 04:00 99.4 92 17 162/57 (92) 99 06/24/18 04:00 Mechanical Ventilator Mechanical Ventilator 06/24/18 04:00 35 06/24/18 03:45 85 16 35 06/24/18 03:45 88 16 100 Mechanical Ventilator 35 06/24/18 03:35 91 16 100 Mechanical Ventilator 35 06/24/18 03:00 89 16 166/69 (101) 99 06/24/18 02:00 100 16 171/73 (105) 99 06/24/18 01:48 98 16 35 06/24/18 01:00 94 16 171/73 (105) 99 06/24/18 00:00 87 06/24/18 00:00 99.2 81 20 147/59 (88) 99 06/24/18 00:00 35 06/24/18 00:00 Mechanical Ventilator Mechanical Ventilator 06/23/18 23:30 86 20 100 Mechanical Ventilator 35 06/23/18 23:16 89 19 35 06/23/18 23:16 90 22 100 Mechanical Ventilator 35 06/23/18 23:00 87 20 164/71 (102) 99 06/23/18 22:00 87 16 150/64 (92) 98 06/23/18 21:28 86 18 35 06/23/18 21:08 99 163/65 06/23/18 21:00 86 20 163/65 (97) 98 06/23/18 20:00 Mechanical Ventilator Mechanical Ventilator 06/23/18 20:00 35 06/23/18 20:00 98 06/23/18 20:00 99.0 98 20 157/68 (97) 98 06/23/18 19:27 104 16 99 Mechanical Ventilator 35 06/23/18 19:17 98 17 98 Mechanical Ventilator 35 06/23/18 19:16 98 17 35 06/23/18 19:00 98 20 159/59 (92) 98 06/23/18 18:00 88 16 138/52 (80) 98 06/23/18 17:00 93 16 144/54 (84) 96 06/23/18 16:42 90 16 35 06/23/18 16:00 Mechanical Ventilator Mechanical Ventilator 06/23/18 16:00 94 06/23/18 16:00 97.8 99 11 138/53 (81) 97 06/23/18 16:00 35 06/23/18 15:35 104 17 97 Mechanical Ventilator 35 06/23/18 15:25 97 16 35 06/23/18 15:25 97 16 97 Mechanical Ventilator 35 06/23/18 15:00 102 10 151/57 (88) 94 06/23/18 14:28 86 20 99 06/23/18 13:20 89 16 35 06/23/18 13:00 90 16 159/72 (101) 99 06/23/18 12:00 Mechanical Ventilator Mechanical Ventilator 06/23/18 12:00 98.2 96 25 143/48 (79) 97 06/23/18 12:00 35 06/23/18 12:00 89 06/23/18 11:24 93 16 100 Mechanical Ventilator 35 06/23/18 11:09 90 16 100 Mechanical Ventilator 35 06/23/18 11:06 85 16 35 06/23/18 11:00 87 16 150/52 (84) 99 06/23/18 10:00 84 16 124/60 (81) 99 06/23/18 09:00 97 18 122/52 (75) 98 06/23/18 08:32 91 16 35 Intake and Output 06/23/18 06/24/18 18:59 06:59 Intake Total 0 ml 55 ml Output Total 600 ml 725 ml Balance -600 ml -670 ml IV Total 55 ml Tube Feeding 0 ml 0 ml Output Urine Total 600 ml 725 ml Laboratory Tests 06/24/18 04:00: White Blood Count 9.3, Red Blood Count 3.58L, Hemoglobin 8.0L, Hematocrit 26.1L , Mean Corpuscular Volume 73L, Mean Corpuscular Hemoglobin 22.4L, Mean Corpuscular Hemoglobin Concent 30.8L, Red Cell Distribution Width 17.8H, Platelet Count 195, Mean Platelet Volume 7.4, Neutrophils (%) (Auto) 71.0, Lymphocytes (%) (Auto) 16.0L, Monocytes (%) (Auto) 7.2, Eosinophils (%) (Auto) 5.1H, Basophils (%) (Auto) 0.8, Sodium Level 139, Potassium Level 4.6, Chloride Level 102, Carbon Dioxide Level 27, Anion Gap 10, Blood Urea Nitrogen 88H, Creatinine 3.6H, Estimat Glomerular Filtration Rate , Glucose Level 73L, Calcium Level 8.8, Phosphorus Level 5.9H, Magnesium Level 1.5L, Total Bilirubin 0.3, Aspartate Amino Transf (AST/SGOT) 26, Alanine Aminotransferase (ALT/SGPT) 22, Alkaline Phosphatase 67, Pro-B-Type Natriuretic Peptide 1676H, Total Protein 6.3L, Albumin 2.3L, Globulin 4.0, Albumin/Globulin Ratio 0.6L, Random Vancomycin Level 16.9 Height (Feet): 5 Height (Inches): 4.00 Weight (Pounds): 115 EENT: other - trached Cardiovascular: tachycardia Respiratory/Chest: decreased breath sounds Abdomen: distended Objective no change Kendrick Jimenez MD Jun 24, 2018 08:27
[2018-06-24] MEDS: Heparin 5000 units/ml inj SUBQ SCH ×2 (09:00→20:51)
[2018-06-24] MEDS: Lactobacillus-GG tablet ORAL SCH ×3 (09:00→17:36)
[2018-06-24] MEDS: Vancomycin oral 125mg/2.5ml NG SCH ×5 (09:00→20:50)
[2018-06-24] MEDS: Pantoprazole Inj IVP SCH (09:48)
--- NOTE | 2018-06-24 09:53 | Pre-Procedure Note/Attestation ---
Pre-Procedure Note/Attestation Complete Prior to Procedure Planned Procedure: not applicable Procedure Narrative: egd/peg Indications for Procedure Pre-Operative Diagnosis: dysphagia Attestation I attest that I discussed the nature of the procedure; its benefits; risks and complications; and alternatives (and the risks and benefits of such alternatives ), prior to the procedure, with the patient (or the patient's legal hvac sales representative). I attest that, if there was a reasonable possibility of needing a blood transfusion, the patient (or the patient's legal hvac sales representative) was given the [facility] standardized written summary, pursuant to the Serafin Elin Blood Safety Act ([place] Health and Safety Code # 1645, as amended). I attest that I re-evaluated the patient just prior to the surgery and that there has been no change in the patient's H&P, except as documented below: Jacobo Acevedo MD Jun 24, 2018 09:52
--- NOTE | 2018-06-24 09:54 | General Progress Note ---
Assessment/Plan Problem List: (1) COPD with acute exacerbation ICD Codes: J44.1 - Chronic obstructive pulmonary disease with (acute) exacerbation SNOMED: 272788284 (2) Pleural effusion ICD Codes: J90 - Pleural effusion, not elsewhere classified SNOMED: 97975986 (3) Afib ICD Codes: I48.91 - Unspecified atrial fibrillation SNOMED: 53442393 (4) CAD (coronary artery disease) ICD Codes: I25.10 - Atherosclerotic heart disease of [place] coronary artery without angina pectoris SNOMED: 74515840 (5) Respiratory failure ICD Codes: J96.90 - Respiratory failure, unspecified, unspecified whether with hypoxia or hypercapnia SNOMED: 316044539 (6) Failure to thrive SNOMED: 74603911 (7) Acute renal failure ICD Codes: N17.9 - Acute kidney failure, unspecified SNOMED: 91129603 (8) C. difficile colitis ICD Codes: A04.72 - Enterocolitis due to Clostridium difficile, not specified as recurrent SNOMED: 141216794 Assessment/Plan lactobacillus s/p trach pending PEG for today Subjective ROS Limited/Unobtainable: No Allergies: Coded Allergies: Mushroom (Verified Allergy, Severe, 05/28/18) MORPHINE (Unverified Allergy, Intermediate, Itching, 01/04/15) PENICILLINS (Unverified Allergy, Intermediate, Hives, 01/04/15) CELECOXIB (Verified Allergy, Mild, 01/15/09) Objective Last 24 Hour Vital Signs Date Time Temp Pulse Resp B/P (MAP) Pulse Ox O2 Delivery O2 Flow Rate FiO2 06/24/18 09:10 85 17 35 06/24/18 08:20 82 16 100 Mechanical Ventilator 35 06/24/18 08:13 Mechanical Ventilator Mechanical Ventilator 06/24/18 08:10 35 06/24/18 08:09 82 16 100 Mechanical Ventilator 35 06/24/18 08:01 99.2 17 148/58 (88) 99 06/24/18 07:21 72 18 97 06/24/18 07:13 90 19 35 06/24/18 07:00 91 20 173/62 (99) 98 06/24/18 06:00 88 17 147/115 (126) 99 06/24/18 05:11 78 16 35 06/24/18 05:00 87 17 153/56 (88) 99 06/24/18 04:42 86 162/57 06/24/18 04:00 92 06/24/18 04:00 99.4 92 17 162/57 (92) 99 06/24/18 04:00 Mechanical Ventilator Mechanical Ventilator 06/24/18 04:00 35 06/24/18 03:45 85 16 35 06/24/18 03:45 88 16 100 Mechanical Ventilator 35 06/24/18 03:35 91 16 100 Mechanical Ventilator 35 06/24/18 03:00 89 16 166/69 (101) 99 06/24/18 02:00 100 16 171/73 (105) 99 06/24/18 01:48 98 16 35 06/24/18 01:00 94 16 171/73 (105) 99 06/24/18 00:00 87 06/24/18 00:00 99.2 81 20 147/59 (88) 99 06/24/18 00:00 35 06/24/18 00:00 Mechanical Ventilator Mechanical Ventilator 06/23/18 23:30 86 20 100 Mechanical Ventilator 35 06/23/18 23:16 89 19 35 06/23/18 23:16 90 22 100 Mechanical Ventilator 35 06/23/18 23:00 87 20 164/71 (102) 99 06/23/18 22:00 87 16 150/64 (92) 98 06/23/18 21:28 86 18 35 06/23/18 21:08 99 163/65 06/23/18 21:00 86 20 163/65 (97) 98 06/23/18 20:00 Mechanical Ventilator Mechanical Ventilator 06/23/18 20:00 35 06/23/18 20:00 98 06/23/18 20:00 99.0 98 20 157/68 (97) 98 06/23/18 19:27 104 16 99 Mechanical Ventilator 35 06/23/18 19:17 98 17 98 Mechanical Ventilator 35 06/23/18 19:16 98 17 35 06/23/18 19:00 98 20 159/59 (92) 98 06/23/18 18:00 88 16 138/52 (80) 98 06/23/18 17:00 93 16 144/54 (84) 96 06/23/18 16:42 90 16 35 06/23/18 16:00 Mechanical Ventilator Mechanical Ventilator 06/23/18 16:00 94 06/23/18 16:00 97.8 99 11 138/53 (81) 97 06/23/18 16:00 35 06/23/18 15:35 104 17 97 Mechanical Ventilator 35 06/23/18 15:25 97 16 35 06/23/18 15:25 97 16 97 Mechanical Ventilator 35 06/23/18 15:00 102 10 151/57 (88) 94 06/23/18 14:28 86 20 99 06/23/18 13:20 89 16 35 06/23/18 13:00 90 16 159/72 (101) 99 06/23/18 12:00 Mechanical Ventilator Mechanical Ventilator 06/23/18 12:00 98.2 96 25 143/48 (79) 97 06/23/18 12:00 35 06/23/18 12:00 89 06/23/18 11:24 93 16 100 Mechanical Ventilator 35 06/23/18 11:09 90 16 100 Mechanical Ventilator 35 06/23/18 11:06 85 16 35 06/23/18 11:00 87 16 150/52 (84) 99 06/23/18 10:00 84 16 124/60 (81) 99 Intake and Output 06/23/18 06/24/18 19:00 07:00 Intake Total 55 ml 0 ml Output Total 600 ml 750 ml Balance -545 ml -750 ml IV Total 55 ml Tube Feeding 0 ml 0 ml Output Urine Total 600 ml 750 ml Laboratory Tests 06/24/18 04:00: White Blood Count 9.3, Red Blood Count 3.58L, Hemoglobin 8.0L, Hematocrit 26.1L , Mean Corpuscular Volume 73L, Mean Corpuscular Hemoglobin 22.4L, Mean Corpuscular Hemoglobin Concent 30.8L, Red Cell Distribution Width 17.8H, Platelet Count 195, Mean Platelet Volume 7.4, Neutrophils (%) (Auto) 71.0, Lymphocytes (%) (Auto) 16.0L, Monocytes (%) (Auto) 7.2, Eosinophils (%) (Auto) 5.1H, Basophils (%) (Auto) 0.8, Sodium Level 139, Potassium Level 4.6, Chloride Level 102, Carbon Dioxide Level 27, Anion Gap 10, Blood Urea Nitrogen 88H, Creatinine 3.6H, Estimat Glomerular Filtration Rate , Glucose Level 73L, Calcium Level 8.8, Phosphorus Level 5.9H, Magnesium Level 1.5L, Total Bilirubin 0.3, Aspartate Amino Transf (AST/SGOT) 26, Alanine Aminotransferase (ALT/SGPT) 22, Alkaline Phosphatase 67, Pro-B-Type Natriuretic Peptide 1676H, Total Protein 6.3L, Albumin 2.3L, Globulin 4.0, Albumin/Globulin Ratio 0.6L, Random Vancomycin Level 16.9 Height (Feet): 5 Height (Inches): 4.00 Weight (Pounds): 115 General Appearance: lethargic EENT: normal ENT inspection Neck: supple Cardiovascular: normal rate Respiratory/Chest: decreased breath sounds Abdomen: normal bowel sounds, non tender, soft Extremities: non-tender Jacobo Acevedo MD Jun 24, 2018 09:54
--- NOTE | 2018-06-24 10:00 | NUR ---
NURSE NOTES: Dr De Souza at bedside,updated re pt's status.
--- NOTE | 2018-06-24 10:29 | Pulmonolgy Critical Care Note ---
Critical Care - Asmt/Plan Assessment/Plan: Problem List: 1. Acute on chronic hypercapnic respiratory failure -intubated 06/02; extubated 06/10 -reintubated 06/17 -trach 06/23 carmelinaley 8 2. R lung collapse, mucous plugging - resolved 3. Pulmonary edema 4. chronic obstructive asthma 5. Pneumonia 6. Hx afib 7. MRSA pna, recurrent fever and increased leukocytosis 8. ESBL E.coli pna 9. C.diff colitis 10. Pleural effusion Plan: -cont mechanical ventilatory support -check aBG -check CXR -weaning trials as tolerated -Trach placement done -aggressive pulmonary hygiene with duonebs/mucomyst/suctioning q4 -chest PT R lung -monitor volumes, hold IVF, may consider lasix -monitor renal function -abx per ID -PEG today Respiratory: CXR, ABG Cardiac: continue to monitor HR/BP Renal: F/U I&O Gastrointestinal: hold feedings Neurologic: keep patient comfortable Disposition: keep in ICU Time Spent (Minutes): 40 - cc Discussed with: nurses Critical Care - Objective Last 24 Hour Vital Signs Date Time Temp Pulse Resp B/P (MAP) Pulse Ox O2 Delivery O2 Flow Rate FiO2 06/24/18 09:10 85 17 35 06/24/18 08:20 82 16 100 Mechanical Ventilator 35 06/24/18 08:13 Mechanical Ventilator Mechanical Ventilator 06/24/18 08:10 35 06/24/18 08:09 82 16 100 Mechanical Ventilator 35 06/24/18 08:01 99.2 17 148/58 (88) 99 06/24/18 07:21 72 18 97 06/24/18 07:13 90 19 35 06/24/18 07:00 91 20 173/62 (99) 98 06/24/18 06:00 88 17 147/115 (126) 99 06/24/18 05:11 78 16 35 06/24/18 05:00 87 17 153/56 (88) 99 06/24/18 04:42 86 162/57 06/24/18 04:00 92 06/24/18 04:00 99.4 92 17 162/57 (92) 99 06/24/18 04:00 Mechanical Ventilator Mechanical Ventilator 06/24/18 04:00 35 06/24/18 03:45 85 16 35 06/24/18 03:45 88 16 100 Mechanical Ventilator 35 06/24/18 03:35 91 16 100 Mechanical Ventilator 35 06/24/18 03:00 89 16 166/69 (101) 99 06/24/18 02:00 100 16 171/73 (105) 99 06/24/18 01:48 98 16 35 06/24/18 01:00 94 16 171/73 (105) 99 06/24/18 00:00 87 06/24/18 00:00 99.2 81 20 147/59 (88) 99 06/24/18 00:00 35 06/24/18 00:00 Mechanical Ventilator Mechanical Ventilator 06/23/18 23:30 86 20 100 Mechanical Ventilator 35 06/23/18 23:16 89 19 35 06/23/18 23:16 90 22 100 Mechanical Ventilator 35 06/23/18 23:00 87 20 164/71 (102) 99 06/23/18 22:00 87 16 150/64 (92) 98 06/23/18 21:28 86 18 35 06/23/18 21:08 99 163/65 06/23/18 21:00 86 20 163/65 (97) 98 06/23/18 20:00 Mechanical Ventilator Mechanical Ventilator 06/23/18 20:00 35 06/23/18 20:00 98 06/23/18 20:00 99.0 98 20 157/68 (97) 98 06/23/18 19:27 104 16 99 Mechanical Ventilator 35 06/23/18 19:17 98 17 98 Mechanical Ventilator 35 06/23/18 19:16 98 17 35 06/23/18 19:00 98 20 159/59 (92) 98 06/23/18 18:00 88 16 138/52 (80) 98 06/23/18 17:00 93 16 144/54 (84) 96 06/23/18 16:42 90 16 35 06/23/18 16:00 Mechanical Ventilator Mechanical Ventilator 06/23/18 16:00 94 06/23/18 16:00 97.8 99 11 138/53 (81) 97 06/23/18 16:00 35 06/23/18 15:35 104 17 97 Mechanical Ventilator 35 06/23/18 15:25 97 16 35 06/23/18 15:25 97 16 97 Mechanical Ventilator 35 06/23/18 15:00 102 10 151/57 (88) 94 06/23/18 14:28 86 20 99 06/23/18 13:20 89 16 35 06/23/18 13:00 90 16 159/72 (101) 99 06/23/18 12:00 Mechanical Ventilator Mechanical Ventilator 06/23/18 12:00 98.2 96 25 143/48 (79) 97 06/23/18 12:00 35 06/23/18 12:00 89 06/23/18 11:24 93 16 100 Mechanical Ventilator 35 06/23/18 11:09 90 16 100 Mechanical Ventilator 35 06/23/18 11:06 85 16 35 06/23/18 11:00 87 16 150/52 (84) 99 Status: awake Lungs: rales Heart: HR/BP stable Abdomen: soft, non-tender Extremities: edema Critical Care - Subjective ROS Limited/Unobtainable: Yes Interval Events: Trach placed yesterday w/o incident. No secretions. Planned PEG today. Condition: stable EKG Rhythm: Sinus Rhythm FI02: 35 Vent Support Breath Rate: 16 Vent Support Mode: AC Vent Tidal Volume: 400 Sputum Amount: Small PEEP: 5.0 PIP: 28 Tube Feeding Amount: 0 I&O: Intake and Output 06/23/18 06/24/18 19:00 07:00 Intake Total 55 ml 0 ml Output Total 600 ml 750 ml Balance -545 ml -750 ml IV Total 55 ml Tube Feeding 0 ml 0 ml Output Urine Total 600 ml 750 ml ET-Tube: 7.5 ET Position: 23 Varinder De Souza MD Jun 24, 2018 10:28
--- NOTE | 2018-06-24 11:18 | Anethesia Preoperative Eval ---
Anesthesia Pre-op PMH/ROS General Date of Evaluation: Jun 24, 2018 Time of Evaluation: 11:16 Anesthesiologist: Tahmina Lazo CRNA ASA Score: ASA 3 Mallampati Score Class I : Soft palate, uvula, fauces, pillars visible Class II: Soft palate, uvula, fauces visible Class III: Soft palate, base of uvula visible Class IV: Only hard plate visible Mallampati Classification: Class III Surgeon: Curtis Diagnosis: dyspnea Surgical Procedure: PEG placement Anesthesia History: none Family History: no anesthesia problems Allergies: Coded Allergies: Mushroom (Verified Allergy, Severe, 05/28/18) MORPHINE (Unverified Allergy, Intermediate, Itching, 01/04/15) PENICILLINS (Unverified Allergy, Intermediate, Hives, 01/04/15) CELECOXIB (Verified Allergy, Mild, 01/15/09) Medications: see eMAR Patient NPO?: Yes NPO Date: Jun 23, 2018 NPO Time: 0000 Past Medical History Cardiovascular: Reports: HTN, arrhythmia - atrial fib; Denies: CAD, ND, valve dz, other Pulmonary: Reports: COPD, other - ER for dyspnea, acute respiratory failure, pneumonia vent dependent; Denies: asthma, SEE Gastrointestinal/Genitourinary: Reports: other - acute renal failure; Denies: GERD, CRI, ESRD Neurologic/Psychiatric: Reports: dementia; Denies: CVA, depression/anxiety, TIA, other Endocrine: Denies: DM, hypothyroidism, steroids, other HEENT: Denies: cataract (L), cataract (R), glaucoma, IQUGMIUT (L), IQUGMIUT (R), other Hematology/Immune: Reports: other - MRSA ; Denies: anemia, DVT, bleeding disorder Musculoskeletal/Integumentary: Denies: OA, RA, DJD, DDD, edema, other PMH Narrative: as above PSxH Narrative: see h & P Anesthesia Pre-op Phys. Exam Physician Exam Last Vital Signs Date Time Temp Pulse Resp B/P (MAP) Pulse Ox O2 Delivery O2 Flow Rate FiO2 06/24/18 10:00 95 20 166/72 (103) 98 06/24/18 09:10 35 06/24/18 08:20 Mechanical Ventilator 06/24/18 08:01 99.2 06/17/18 04:00 50.0 Constitutional: NAD Neurologic: other - not oriented Cardiovascular: RRR Respiratory: CTA, other - trach in situ Gastrointestinal: S/NT/ND Airway Exam Mallampati Score: Class III MO: full Neck: FROm TMD: > 3 FB ROM: full Teeth: intact Dentures: no upper, no lower Anesthesia Pre-op A/P Labs Hematology Test 06/24/18 04:00 White Blood Count 9.3 K/UL (4.8-10.8) Red Blood Count 3.58 M/UL (4.20-5.40) L Hemoglobin 8.0 G/DL (12.0-16.0) L Hematocrit 26.1 % (37.0-47.0) L Mean Corpuscular Volume 73 FL (80-99) L Mean Corpuscular Hemoglobin 22.4 PG (27.0-31.0) L Mean Corpuscular Hemoglobin Concent 30.8 G/DL (32.0-36.0) L Red Cell Distribution Width 17.8 % (11.6-14.8) H Platelet Count 195 K/UL (150-450) Mean Platelet Volume 7.4 FL (6.5-10.1) Neutrophils (%) (Auto) 71.0 % (45.0-75.0) Lymphocytes (%) (Auto) 16.0 % (20.0-45.0) L Monocytes (%) (Auto) 7.2 % (1.0-10.0) Eosinophils (%) (Auto) 5.1 % (0.0-3.0) H Basophils (%) (Auto) 0.8 % (0.0-2.0) Chemistry Test 06/24/18 04:00 Sodium Level 139 MMOL/L (136-145) Potassium Level 4.6 MMOL/L (3.5-5.1) Chloride Level 102 MMOL/L (98-107) Carbon Dioxide Level 27 MMOL/L (21-32) Anion Gap 10 mmol/L (5-15) Blood Urea Nitrogen 88 mg/dL (7-18) H Creatinine 3.6 MG/DL (0.55-1.30) H Estimat Glomerular Filtration Rate mL/min (>60) Glucose Level 73 MG/DL (74-106) L Calcium Level 8.8 MG/DL (8.5-10.1) Phosphorus Level 5.9 MG/DL (2.5-4.9) H Magnesium Level 1.5 MG/DL (1.8-2.4) L Total Bilirubin 0.3 MG/DL (0.2-1.0) Aspartate Amino Transf (AST/SGOT) 26 U/L (15-37) Alanine Aminotransferase (ALT/SGPT) 22 U/L (12-78) Alkaline Phosphatase 67 U/L (46-116) Pro-B-Type Natriuretic Peptide 1676 pg/mL (0-125) H Total Protein 6.3 G/DL (6.4-8.2) L Albumin 2.3 G/DL (3.4-5.0) L Globulin 4.0 g/dL Albumin/Globulin Ratio 0.6 (1.0-2.7) L Tahmina Lazo CRNA Jun 24, 2018 11:18
--- NOTE | 2018-06-24 11:30 | NUR ---
NURSE NOTES: BP elevated all the time ,given Metoprolol 5mg IV BP 164/70,will continue to monitor V/S.
--- NOTE | 2018-06-24 12:21 | NUR ---
RD ASSESSMENT & RECOMMENDATIONS SEE CARE ACTIVITY FOR COMPLETE ASSESSMENT DAILY ESTIMATED NEEDS: Needs based on Pulmonary, ARF (NO HD), Critical care/ 54kg 22-28 kcals/kg 0778-3877 total kcals 0.8-1.2 g protein/kg 43-65 g total protein 25-30 mL/kg 0795-5495 total fluid mLs NUTRITION DIAGNOSIS: * Swallowing difficulty R/T dysphagia, respiratory status as evidenced by s/p trach placement, PEG placement pending. * Altered nutrition related lab values R/T clinical condition, prediabetes, ARF as evidenced by elev Na (149-> now wnl), elev BUN/creat (88/3.6 both improving), A1C=5.9, elev BG of 201 upon adm -> 73, 98 improved, elev K (6.0*-> now wnl), elev phos (5.9). CURRENT TF:NPO ENTERAL NUTRITION RECOMMENDATIONS: Nepro @ 35ml/hr x 24 hrs to provide 840ml, 1512kcal, 68g prot, 610ml free water * S/p PEG placement, rec Nepro due to episodes of elev K, phos elev * Initiate Nepro @ 15ml/hr x 6 hrs, advance 10ml q 4-6 hrs as tolerated to goal rate * HOB over 30 degrees/ water flush per MD. ADDITIONAL RECOMMENDATIONS: * CALIBRATED bedscale wt for accurate CBW- w/ added SPR mattress+ pump * Monitor lytes daily- phos elev, h/o elev K - renal fxn improving at this time * Monitor BGs, need for SSI/hypoglycemic agents . . .
[2018-06-24] MEDS ORDERED: Clindamycin 600mg 50 ML IV ONE ×2 (12:44→13:00)
[2018-06-24] MEDS ORDERED: Propofol 200mg/20ml IV ONE (13:00)
--- NOTE | 2018-06-24 13:00 | NUR ---
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 Procedure tolerated well.
--- NOTE | 2018-06-24 13:20 | Immediate Post-Op Evaluation ---
Immediate Post-Op Evalulation Immediate Post-Op Evalulation Procedure: Tracheostomy Date of Evaluation: Jun 24, 2018 Time of Evaluation: 13:14 IV Fluids: 0.9 NS 50 ml Blood Pressure Systolic: 165 Blood Pressure Diastolic: 82 Pulse Rate: 89 Respiratory Rate: 28 O2 Sat by Pulse Oximetry: 98 Temperature (Fahrenheit): 97.6 Pain Score (1-10): 0 Nausea: No Vomiting: No Complications none Patient Status: reacts, ventilated Drug: clindamycin by RN see GLYNN Given Within 1 Hr of Incision: Yes Tahmina Lazo CRNA Jun 24, 2018 13:20
--- NOTE | 2018-06-24 13:25 | NUR ---
NURSE NOTE: Peg Placement done,procedure tolerated,pt stable no distress presented.
--- NOTE | 2018-06-24 13:31 | Endoscopy Procedure Note ---
Endoscopy Procedure Note General Indication for Procedure: dysphagia Procedures Performed: EGD, PEG Operative Findings/Diagnosis: same Specimen: none Pt Tolerated Procedure Well: Yes Estimated Blood Loss: none Anesthesia Anesthesiologist: kathryn Anesthesia: MAC Inserted Devices Implant(s) used?: No GI Core Measures 50 yrs or older w/o bx or poly: Not Applicable 10yrs. F/U not recommended: Not Applicable Jacobo Acevedo MD Jun 24, 2018 13:31
--- NOTE | 2018-06-24 14:00 | NUR ---
NURSE NOTES: Dr Jimenez at bedside,updated re pt's status and plans.
--- NOTE | 2018-06-24 14:32 | 48 Hour Post Anesthesia Eval ---
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
--- NOTE | 2018-06-24 15:35 | General Progress Note ---
Progress Note Progress Note surgery doing well post op trach clean good volumes looks more comfortable cont current care wean as tolerated peg Christiano Garcia Jun 24, 2018 15:35
--- NOTE | 2018-06-24 16:00 | NUR ---
NURSE NOTES: Pt 's family at bedside visiting,pt stable in no disitress.
--- NOTE | 2018-06-24 16:19 | Infectious Diseases Prog Note ---
Assessment/Plan Assessment/Plan 87 yo feamle with PMHx of COPD, HTN, and A.fib sent to the ED from her nuring home for SOB. Sepsis;improving - Likely PNA 06/21 CXR: Slightly increased right lung opacity, suspect increasing pleural fluid.Increased retrocardiac consolidation 06/17 CXR: Increasing right lung opacity, likely representing decreasing pleural fluid but may also represent increasing parenchymal consolidation 06/15 CXR: Increasing opacification right hemithorax, likely reflecting increasing pleural fluid but may also reflect increasing pulmonary parenchymal consolidation 06/14 CXR: Diffuse right lung hazy opacity appears similar to the prior exam. 06/12 CXR: : Hazy opacification of the right hemithorax, likely reflecting pleural fluid, is unchanged. 05/28/18 CXR with atalectasis vs consolidation in the right side. 06/01/18 CXR - Extensive right hemithorax opacification UA (-) sputum cx 06/15: MRSA (likely a colonizer at this point), ESBL E.coli Sputum Cx 05/28/18 - MRSA (Inf Neg) Urine legionella (-) Acute respiratory failure s/p intubation 06/16 Cdiff colitis -06/19 Cdif toxin a/b + R lung collapse: -06/16 CXR: Complete opacification of the right hemithorax. Probably due to complete atelectasis of the right lung, with evidence of abrupt occlusion of the rightmainstem bronchus. Given findings on prior chest radiographs, there is probablysignificant component of pleural effusion as well. Positive blood Cx - Likely contaminant BCx 05/28/18 - CoNS BCX 05/30/18 - NGTD Leukocytosis , recurrent mild- resolved Fever, improving COPD CAD A. fib s/p trach 06/23 PLAN - Continue Ertapenem #5 (abx d#01/10) for ESBL Ecoli PNA -Continue PO Vancomycin #/10 for Cdiff -06/20 SP Meropenem #5 -06/17 SP IV Vancomycin #21 -06/16 SP Cefepime #20 - Monitor CBC and Temps -f/u cx We will continue to follow Ms. Nowak during this hospitalization. Subjective Allergies: Coded Allergies: Mushroom (Verified Allergy, Severe, 05/28/18) MORPHINE (Unverified Allergy, Intermediate, Itching, 01/04/15) PENICILLINS (Unverified Allergy, Intermediate, Hives, 01/04/15) CELECOXIB (Verified Allergy, Mild, 01/15/09) Subjective afebrile no leucocytosis sp trach yesterday Objective Vital Signs Last 24 Hour Vital Signs Date Time Temp Pulse Resp B/P (MAP) Pulse Ox O2 Delivery O2 Flow Rate FiO2 06/24/18 15:50 83 16 35 06/24/18 15:09 84 16 100 Mechanical Ventilator 35 06/24/18 15:00 84 16 148/62 (90) 100 06/24/18 14:59 93 21 98 Mechanical Ventilator 35 06/24/18 14:32 93 17 98 06/24/18 14:00 94 19 166/76 (106) 97 06/24/18 13:29 92 17 35 06/24/18 13:20 89 28 98 06/24/18 13:00 94 19 176/86 (116) 97 06/24/18 12:00 Mechanical Ventilator Mechanical Ventilator 06/24/18 12:00 35 06/24/18 12:00 98.8 81 23 164/61 (95) 99 06/24/18 11:46 78 16 100 Mechanical Ventilator 35 06/24/18 11:36 77 16 99 Mechanical Ventilator 35 06/24/18 11:23 94 156/71 06/24/18 11:16 94 19 35 06/24/18 11:00 94 24 156/71 (99) 98 06/24/18 10:00 95 20 166/72 (103) 98 06/24/18 09:10 85 17 35 06/24/18 09:00 88 15 160/58 (92) 99 06/24/18 08:20 82 16 100 Mechanical Ventilator 35 06/24/18 08:13 Mechanical Ventilator Mechanical Ventilator 06/24/18 08:10 35 06/24/18 08:09 82 16 100 Mechanical Ventilator 35 06/24/18 08:01 99.2 17 148/58 (88) 99 06/24/18 08:00 84 06/24/18 07:21 72 18 97 06/24/18 07:13 90 19 35 06/24/18 07:00 91 20 173/62 (99) 98 06/24/18 06:00 88 17 147/115 (126) 99 06/24/18 05:11 78 16 35 06/24/18 05:00 87 17 153/56 (88) 99 06/24/18 04:42 86 162/57 06/24/18 04:00 92 06/24/18 04:00 99.4 92 17 162/57 (92) 99 06/24/18 04:00 Mechanical Ventilator Mechanical Ventilator 06/24/18 04:00 35 06/24/18 03:45 85 16 35 06/24/18 03:45 88 16 100 Mechanical Ventilator 35 06/24/18 03:35 91 16 100 Mechanical Ventilator 35 06/24/18 03:00 89 16 166/69 (101) 99 06/24/18 02:00 100 16 171/73 (105) 99 06/24/18 01:48 98 16 35 06/24/18 01:00 94 16 171/73 (105) 99 06/24/18 00:00 87 06/24/18 00:00 99.2 81 20 147/59 (88) 99 06/24/18 00:00 35 06/24/18 00:00 Mechanical Ventilator Mechanical Ventilator 06/23/18 23:30 86 20 100 Mechanical Ventilator 35 06/23/18 23:16 89 19 35 06/23/18 23:16 90 22 100 Mechanical Ventilator 35 06/23/18 23:00 87 20 164/71 (102) 99 06/23/18 22:00 87 16 150/64 (92) 98 06/23/18 21:28 86 18 35 06/23/18 21:08 99 163/65 06/23/18 21:00 86 20 163/65 (97) 98 06/23/18 20:00 Mechanical Ventilator Mechanical Ventilator 06/23/18 20:00 35 06/23/18 20:00 98 06/23/18 20:00 99.0 98 20 157/68 (97) 98 06/23/18 19:27 104 16 99 Mechanical Ventilator 35 06/23/18 19:17 98 17 98 Mechanical Ventilator 35 06/23/18 19:16 98 17 35 06/23/18 19:00 98 20 159/59 (92) 98 06/23/18 18:00 88 16 138/52 (80) 98 06/23/18 17:00 93 16 144/54 (84) 96 06/23/18 16:42 90 16 35 Height (Feet): 5 Height (Inches): 4.00 Weight (Pounds): 115 Objective General Appearance: no apparent distress, other - on intubated Neck: supple Cardiovascular: normal rate Respiratory/Chest: lungs clear Abdomen: normal bowel sounds, non tender, soft Extremities: trace edema Laboratory Tests Test 06/24/18 04:00 06/24/18 12:19 White Blood Count 9.3 K/UL (4.8-10.8) Red Blood Count 3.58 M/UL (4.20-5.40) L Hemoglobin 8.0 G/DL (12.0-16.0) L Hematocrit 26.1 % (37.0-47.0) L Mean Corpuscular Volume 73 FL (80-99) L Mean Corpuscular Hemoglobin 22.4 PG (27.0-31.0) L Mean Corpuscular Hemoglobin Concent 30.8 G/DL (32.0-36.0) L Red Cell Distribution Width 17.8 % (11.6-14.8) H Platelet Count 195 K/UL (150-450) Mean Platelet Volume 7.4 FL (6.5-10.1) Neutrophils (%) (Auto) 71.0 % (45.0-75.0) Lymphocytes (%) (Auto) 16.0 % (20.0-45.0) L Monocytes (%) (Auto) 7.2 % (1.0-10.0) Eosinophils (%) (Auto) 5.1 % (0.0-3.0) H Basophils (%) (Auto) 0.8 % (0.0-2.0) Sodium Level 139 MMOL/L (136-145) Potassium Level 4.6 MMOL/L (3.5-5.1) Chloride Level 102 MMOL/L (98-107) Carbon Dioxide Level 27 MMOL/L (21-32) Anion Gap 10 mmol/L (5-15) Blood Urea Nitrogen 88 mg/dL (7-18) H Creatinine 3.6 MG/DL (0.55-1.30) H Estimat Glomerular Filtration Rate mL/min (>60) Glucose Level 73 MG/DL (74-106) L Calcium Level 8.8 MG/DL (8.5-10.1) Phosphorus Level 5.9 MG/DL (2.5-4.9) H Magnesium Level 1.5 MG/DL (1.8-2.4) L Total Bilirubin 0.3 MG/DL (0.2-1.0) Aspartate Amino Transf (AST/SGOT) 26 U/L (15-37) Alanine Aminotransferase (ALT/SGPT) 22 U/L (12-78) Alkaline Phosphatase 67 U/L (46-116) Pro-B-Type Natriuretic Peptide 1676 pg/mL (0-125) H Total Protein 6.3 G/DL (6.4-8.2) L Albumin 2.3 G/DL (3.4-5.0) L Globulin 4.0 g/dL Albumin/Globulin Ratio 0.6 (1.0-2.7) L Random Vancomycin Level 16.9 ug/mL Arterial Blood pH 7.368 (7.350-7.450) Arterial Blood Partial Pressure CO2 48.6 mmHg (35.0-45.0) H Arterial Blood Partial Pressure O2 92.3 mmHg (75.0-100.0) Arterial Blood HCO3 27.3 mmol/L (22.0-26.0) H Arterial Blood Oxygen Saturation 96.3 % (95-100) Arterial Blood Base Excess 1.7 (-2-2) David Test Positive Current Medications Medications (Trade) Dose Ordered Sig/Ann Route PRN Reason Start Time Stop Time Status Last Admin Dose Admin Acetaminophen (Tylenol) 650 mg Q4H PRN ORAL Mild Pain/Temp > 100.5 06/16/18 19:19 07/16/18 19:18 06/21/18 04:03 Acetylcysteine (Mucomyst) 100 mg Q4HRT HHN 06/22/18 11:00 07/09/18 10:59 06/24/18 15:01 Albuterol/ Ipratropium (Albuterol/ Ipratropium) 3 ml Q4HRT PRN HHN Shortness of Breath 06/20/18 04:45 06/25/18 04:44 06/24/18 15:01 Amiodarone HCl (Cordarone) 200 mg DAILY@1800 ORAL 06/24/18 18:00 07/24/18 17:59 Chlorhexidine Gluconate (Myra-Hex 2%) 1 applic DAILY@2000 TOPIC 06/16/18 20:00 07/02/18 19:59 06/23/18 20:34 Ertapenem 0.5 gm/ Sodium Chloride 55 ml @ 110 mls/hr Q24H IVPB 06/20/18 17:30 06/25/18 23:59 06/23/18 17:39 Haloperidol Lactate (Haldol) 5 mg Q6H PRN IM Agitation 06/16/18 19:20 07/16/18 19:19 Heparin Sodium (Porcine) (Heparin 5000 units/ml) 5,000 units EVERY 12 HOURS SUBQ 06/16/18 21:00 06/27/18 08:59 06/21/18 20:27 Lactobacillus Acidophilus (Culturelle) 1 tab TWICE A DAY ORAL 06/22/18 18:00 07/22/18 17:59 06/23/18 17:39 Metoprolol Tartrate (Lopressor) 5 mg Q6H PRN IVP SBP > 125 06/16/18 19:20 07/16/18 19:19 06/24/18 11:23 Nitroglycerin (Ntg) 0.4 mg Q5M PRN SL Prn Chest Pain 06/16/18 19:20 06/27/18 13:29 Ondansetron HCl (Zofran) 4 mg Q6H PRN IVP Nausea & Vomiting 06/16/18 19:21 07/16/18 19:20 Pantoprazole (Protonix) 40 mg DAILY IVP 06/20/18 20:00 07/20/18 19:59 06/24/18 09:48 Quetiapine Fumarate (SEROquel) 25 mg Q6H PRN ORAL For Anxiety 06/16/18 19:21 07/16/18 19:20 06/23/18 08:11 Vancomycin HCl (Firvanq) 125 mg FOUR TIMES A DAY NG 06/19/18 13:00 06/26/18 12:59 06/23/18 20:35 Natty Hernandes M.D. Jun 24, 2018 16:19
[2018-06-24] MEDS: Ertapenem 0.5 GM in NS 55 ML IVPB SCH (17:49)
[2018-06-24] MEDS ORDERED: Amiodarone 200mg tab ORAL SCH (18:00)
--- NOTE | 2018-06-24 18:13 | NUR ---
CASE MANAGEMENT: REVIEW SI: A-FIB . RESPIRATORY FAILURE TRACHEOSTOMY 06/23 PEG PLACEMENT 06/24 T 99.4 HR 92 RR 20 BP 162/57 SAT 99% MECH VENT FIO2 35 H/H 8.0/26.1 BUN 88 CR 3.6 IS: ERTAPENEM IV Q24HR AMIODARONE PO QD GT FEEDING NEPRO @40ML/HR ICU STATUS DCP: PATIENT IS FROM [facility]
--- NOTE | 2018-06-24 18:15 | Procedure Note ---
DATE OF PROCEDURE: 06/24/2018 SURGEON: Jacobo Acevedo M.D. PROCEDURE: Upper endoscopy with PEG placement. ANESTHESIA: Per Tahmina DE LOS SANTOS. INSTRUMENT: Olympus adult flexible upper endoscope. INDICATIONS: 1. Dysphagia. 2. Failure to thrive. REASON FOR PROCEDURE: The procedure, risks, benefits, and possible consequences, including hemorrhage, aspiration, perforation and infection, and alternative treatments, were explained to the patient/legal guardian by Dr. Jacobo Acevedo and the patient/legal guardian understood and accepted these risks. PROCEDURE IN DETAIL: After informed consent was obtained and the patient was adequately sedated, Olympus upper endoscope was advanced from the mouth to the second portion of duodenum and retroflexion was performed in the stomach. The patient had diffuse gastritis. Then under endoscopic guidance and under sterile condition, a 20-Belarusian pull type of G-tube was successfully placed in epigastric area. The distance from the tip of the tube to skin was about 2.5 cm in size. The patient tolerated the procedure very well without any complication. SUMMARY OF FINDINGS: Status post successful PEG placement. RECOMMENDATIONS: 1. Abdominal binder. 2. Elevate the head of the bed at all times. 3. G-tube flush. 4. G-tube care. 5. Start tube feeding later today. 6. The patient received a dose of antibiotic prior to this procedure. Jacobo Acevedo M.D. DR: VIVIANA JOB#: [id number] CC:
--- NOTE | 2018-06-24 18:56 | Cardiology Progress Note ---
Assessment/Plan Assessment/Plan COPD, congestive heart failure, atrial fibrillation sinus tachy agitation right lung collapse? anemia pleural effusion respirator failure tachy acute on chronic renal failure pleural effusion tele sinus with pvc vent suppor t abx pulm rxn beta evelyn iv or via ngt prn amiod to 200 qd hemodynamically stable at the moment bp is elevated will start on noprvasc cr better s/p trach and peg Subjective ROS Limited/Unobtainable: Yes Subjective in icu on vent in isolation Objective Last 24 Hour Vital Signs Date Time Temp Pulse Resp B/P (MAP) Pulse Ox O2 Delivery O2 Flow Rate FiO2 06/24/18 17:54 89 21 164/65 (98) 98 06/24/18 17:49 97 177/66 06/24/18 17:10 97 24 35 06/24/18 16:00 98.4 96 23 177/66 (103) 98 06/24/18 16:00 85 06/24/18 16:00 35 06/24/18 16:00 Mechanical Ventilator Mechanical Ventilator 06/24/18 15:50 83 16 35 06/24/18 15:09 84 16 100 Mechanical Ventilator 35 06/24/18 15:00 84 16 148/62 (90) 100 06/24/18 14:59 93 21 98 Mechanical Ventilator 35 06/24/18 14:32 93 17 98 06/24/18 14:00 94 19 166/76 (106) 97 06/24/18 13:29 92 17 35 06/24/18 13:20 89 28 98 06/24/18 13:00 94 19 176/86 (116) 97 06/24/18 12:00 Mechanical Ventilator Mechanical Ventilator 06/24/18 12:00 35 06/24/18 12:00 98.8 81 23 164/61 (95) 99 06/24/18 11:46 78 16 100 Mechanical Ventilator 35 06/24/18 11:36 77 16 99 Mechanical Ventilator 35 06/24/18 11:23 94 156/71 06/24/18 11:16 94 19 35 06/24/18 11:00 94 24 156/71 (99) 98 06/24/18 10:00 95 20 166/72 (103) 98 06/24/18 09:10 85 17 35 06/24/18 09:00 88 15 160/58 (92) 99 06/24/18 08:20 82 16 100 Mechanical Ventilator 35 06/24/18 08:13 Mechanical Ventilator Mechanical Ventilator 06/24/18 08:10 35 06/24/18 08:09 82 16 100 Mechanical Ventilator 35 06/24/18 08:01 99.2 17 148/58 (88) 99 06/24/18 08:00 84 06/24/18 07:21 72 18 97 06/24/18 07:13 90 19 35 06/24/18 07:00 91 20 173/62 (99) 98 06/24/18 06:00 88 17 147/115 (126) 99 06/24/18 05:11 78 16 35 06/24/18 05:00 87 17 153/56 (88) 99 06/24/18 04:42 86 162/57 06/24/18 04:00 92 06/24/18 04:00 99.4 92 17 162/57 (92) 99 06/24/18 04:00 Mechanical Ventilator Mechanical Ventilator 06/24/18 04:00 35 06/24/18 03:45 85 16 35 06/24/18 03:45 88 16 100 Mechanical Ventilator 35 06/24/18 03:35 91 16 100 Mechanical Ventilator 35 06/24/18 03:00 89 16 166/69 (101) 99 06/24/18 02:00 100 16 171/73 (105) 99 06/24/18 01:48 98 16 35 06/24/18 01:00 94 16 171/73 (105) 99 06/24/18 00:00 87 06/24/18 00:00 99.2 81 20 147/59 (88) 99 06/24/18 00:00 35 06/24/18 00:00 Mechanical Ventilator Mechanical Ventilator 06/23/18 23:30 86 20 100 Mechanical Ventilator 35 06/23/18 23:16 89 19 35 06/23/18 23:16 90 22 100 Mechanical Ventilator 35 06/23/18 23:00 87 20 164/71 (102) 99 06/23/18 22:00 87 16 150/64 (92) 98 06/23/18 21:28 86 18 35 06/23/18 21:08 99 163/65 06/23/18 21:00 86 20 163/65 (97) 98 06/23/18 20:00 Mechanical Ventilator Mechanical Ventilator 2/21/19 20:00 35 06/23/18 20:00 98 06/23/18 20:00 99.0 98 20 157/68 (97) 98 06/23/18 19:27 104 16 99 Mechanical Ventilator 35 06/23/18 19:17 98 17 98 Mechanical Ventilator 35 06/23/18 19:16 98 17 35 06/23/18 19:00 98 20 159/59 (92) 98 General Appearance: no apparent distress, on vent, patient on isolation Cardiovascular: normal rate Respiratory/Chest: lungs clear Abdomen: normal bowel sounds, non tender, soft Extremities: no swelling Intake and Output 06/23/18 06/24/18 19:00 07:00 Intake Total 55 ml 0 ml Output Total 600 ml 750 ml Balance -545 ml -750 ml IV Total 55 ml Tube Feeding 0 ml 0 ml Output Urine Total 600 ml 750 ml Laboratory Tests Test 06/24/18 04:00 06/24/18 12:19 White Blood Count 9.3 K/UL (4.8-10.8) Red Blood Count 3.58 M/UL (4.20-5.40) L Hemoglobin 8.0 G/DL (12.0-16.0) L Hematocrit 26.1 % (37.0-47.0) L Mean Corpuscular Volume 73 FL (80-99) L Mean Corpuscular Hemoglobin 22.4 PG (27.0-31.0) L Mean Corpuscular Hemoglobin Concent 30.8 G/DL (32.0-36.0) L Red Cell Distribution Width 17.8 % (11.6-14.8) H Platelet Count 195 K/UL (150-450) Mean Platelet Volume 7.4 FL (6.5-10.1) Neutrophils (%) (Auto) 71.0 % (45.0-75.0) Lymphocytes (%) (Auto) 16.0 % (20.0-45.0) L Monocytes (%) (Auto) 7.2 % (1.0-10.0) Eosinophils (%) (Auto) 5.1 % (0.0-3.0) H Basophils (%) (Auto) 0.8 % (0.0-2.0) Sodium Level 139 MMOL/L (136-145) Potassium Level 4.6 MMOL/L (3.5-5.1) Chloride Level 102 MMOL/L (98-107) Carbon Dioxide Level 27 MMOL/L (21-32) Anion Gap 10 mmol/L (5-15) Blood Urea Nitrogen 88 mg/dL (7-18) H Creatinine 3.6 MG/DL (0.55-1.30) H Estimat Glomerular Filtration Rate mL/min (>60) Glucose Level 73 MG/DL (74-106) L Calcium Level 8.8 MG/DL (8.5-10.1) Phosphorus Level 5.9 MG/DL (2.5-4.9) H Magnesium Level 1.5 MG/DL (1.8-2.4) L Total Bilirubin 0.3 MG/DL (0.2-1.0) Aspartate Amino Transf (AST/SGOT) 26 U/L (15-37) Alanine Aminotransferase (ALT/SGPT) 22 U/L (12-78) Alkaline Phosphatase 67 U/L (46-116) Pro-B-Type Natriuretic Peptide 1676 pg/mL (0-125) H Total Protein 6.3 G/DL (6.4-8.2) L Albumin 2.3 G/DL (3.4-5.0) L Globulin 4.0 g/dL Albumin/Globulin Ratio 0.6 (1.0-2.7) L Random Vancomycin Level 16.9 ug/mL Arterial Blood pH 7.368 (7.350-7.450) Arterial Blood Partial Pressure CO2 48.6 mmHg (35.0-45.0) H Arterial Blood Partial Pressure O2 92.3 mmHg (75.0-100.0) Arterial Blood HCO3 27.3 mmol/L (22.0-26.0) H Arterial Blood Oxygen Saturation 96.3 % (95-100) Arterial Blood Base Excess 1.7 (-2-2) David Test Positive Geoffrey Sandhu MD Jun 24, 2018 18:56
--- NOTE | 2018-06-24 19:00 | NUR ---
NURSE NOTES: Dr Oates called and give new orders to start feeding Nepro at 20 m/ with goal 40 ml/hr.
--- NOTE | 2018-06-24 19:06 | NUR ---
RESPIRATORY NOTE: Received pt. on 840 vent. Vent settings are: A/C rate of 16, Vt 400, FI02 35%, PEEP +5. No respiratory distress noted, pt. Sp02 @ 100%. Ambu bag @ BS. Vent plugged on red outlet. Will continue to monitor pt.
--- NOTE | 2018-06-24 19:20 | NUR ---
HAND-OFF: Report given to Deepa Bland RN. .
--- NOTE | 2018-06-24 19:30 | NUR ---
NURSE NOTES: Received Pt is resting on the bed and awake and confused. Trach to Vent dependent setting with AC: 16, T; 400, P; 5, FiO2 30% and SaO2 100% noted. Given tracheal and oral suction. Provided oral care. Pt has new G-tube today and G-tube site intact and no sign of bleeding noted. on running with Nepro @ 20cc/hr and tolerated well. No residual noted. Applied abdominal binder for protection. Pt has rectal tube and patent. PICC on Rt upper arm area dressing is clean and dry but no blood return noted. On Sinclair cath and in place and patent. On Bilateral soft restraint. Checked comfort and circulation. Pt still confuse and slight agitate. Trying to release restraint when during care but Pt still to touch G-tubed and Trach area. Changed position. Placed fall precaution. Will continue to care plan.
[2018-06-24] MEDS: HYDROcodone/Acetamin 5/325 tab ORAL PRN (19:50)
[2018-06-24] MEDS: Dyna-Hex 2% Top Sol 2oz TOPIC SCH (19:55)
[2018-06-24] MEDS ORDERED: Sterile Water For Irrig 2000ml IRRIG ONE (20:39)
[2018-06-24] MEDS ORDERED: Tubing IV Secondary IV ONE (20:54)
[2018-06-24] MEDS ORDERED: D5 1/2NS 1000ml IV ONE (20:54)
--- NOTE | 2018-06-24 21:00 | NUR ---
NURSE NOTES: Dr. Valderrama visited and assessed Pt and no new order noted. Will continue to monitor any change of condition.
--- NOTE | 2018-06-24 21:13 | General Progress Note ---
Assessment/Plan Status: progressing Assessment/Plan This is an 87-year-old female admitted with chronic obstructive pulmonary disease exacerbation, right lower lobe infiltrate/pneumonia with altered mental status and acute kidney injury. The patient will be admitted to [facility] with the following medical problems. 1. Chronic obstructive pulmonary disease exacerbation and pneumonia. The patient has been seen by Pulmonary. Infectious Disease has been consulted, pancultured. IV antibiotics per ID. Continue with BiPAP and suction p.r.n. Transition to Venturi-mask when stable. 2. Acute kidney injury. We will monitor I's and O's, gentle intravenous fluids. Repeat a BMP in a.m. Consider Nephrology consult. 3. History of chronic atrial fibrillation. Continue with amiodarone. The patient is in sinus rhythm at this time. 4. History of hypertension. Continue with amlodipine and hold for systolic blood pressure less than 110. 5. Altered mental status, most likely from above conditions. We will keep n.p.o. except for medications and start IV fluids. 6. DVT prophylaxis with heparin subcutaneous and SCDs. 7. The patient is Full Code per policy. We will discuss with the family. 8. hypokalmia 9. Anemia 10. CHf acute on chronic 11. leucocytosis 12. ARF? ATN 13. C dif positive 14. hyperkalemia 15. pleural effusion 16. S/p Tracheostomy 06/22/18 Plan: - now intubated in icu - continue respiratory support - consider repeat Lasix today - aggressive pulmonary suction - HD on hold as patient putting out better urine and createnine is improving - antibiotics per ID - on oral vanco - am labs - weaning off vent per pulmonary - Gi prophylaxis with protonix iv 40 mg daily - possible PEG Wednesday - s/p Kayexalate - norvasc added for better BP cotrol discussed with nurse will need LTAC possible Tran Subjective Date patient seen: Jun 24, 2018 ROS Limited/Unobtainable: Yes Allergies: Coded Allergies: Mushroom (Verified Allergy, Severe, 05/28/18) MORPHINE (Unverified Allergy, Intermediate, Itching, 01/04/15) PENICILLINS (Unverified Allergy, Intermediate, Hives, 01/04/15) CELECOXIB (Verified Allergy, Mild, 01/15/09) Subjective patient is now reintubated, in renal failure, HD on hold as making better urine , C dif positive on ngt vanco, s/p tracheostomy. s/p PEG Objective Last 24 Hour Vital Signs Date Time Temp Pulse Resp B/P (MAP) Pulse Ox O2 Delivery O2 Flow Rate FiO2 06/24/18 20:00 35 06/24/18 20:00 Mechanical Ventilator Mechanical Ventilator 06/24/18 19:12 89 16 100 Mechanical Ventilator 35 06/24/18 19:04 84 17 35 06/24/18 19:02 84 17 99 Mechanical Ventilator 35 06/24/18 19:00 84 16 169/72 (104) 100 06/24/18 17:54 89 21 164/65 (98) 98 06/24/18 17:49 97 177/66 06/24/18 17:10 97 24 35 06/24/18 16:00 98.4 96 23 177/66 (103) 98 06/24/18 16:00 85 06/24/18 16:00 35 06/24/18 16:00 Mechanical Ventilator Mechanical Ventilator 06/24/18 15:50 83 16 35 06/24/18 15:09 84 16 100 Mechanical Ventilator 35 06/24/18 15:00 84 16 148/62 (90) 100 06/24/18 14:59 93 21 98 Mechanical Ventilator 35 06/24/18 14:32 93 17 98 06/24/18 14:00 94 19 166/76 (106) 97 06/24/18 13:29 92 17 35 06/24/18 13:20 89 28 98 06/24/18 13:00 94 19 176/86 (116) 97 06/24/18 12:00 Mechanical Ventilator Mechanical Ventilator 06/24/18 12:00 35 06/24/18 12:00 98.8 81 23 164/61 (95) 99 06/24/18 11:46 78 16 100 Mechanical Ventilator 35 06/24/18 11:36 77 16 99 Mechanical Ventilator 35 06/24/18 11:23 94 156/71 06/24/18 11:16 94 19 35 06/24/18 11:00 94 24 156/71 (99) 98 06/24/18 10:00 95 20 166/72 (103) 98 06/24/18 09:10 85 17 35 06/24/18 09:00 88 15 160/58 (92) 99 06/24/18 08:20 82 16 100 Mechanical Ventilator 35 06/24/18 08:13 Mechanical Ventilator Mechanical Ventilator 06/24/18 08:10 35 06/24/18 08:09 82 16 100 Mechanical Ventilator 35 06/24/18 08:01 99.2 17 148/58 (88) 99 06/24/18 08:00 84 06/24/18 07:21 72 18 97 06/24/18 07:13 90 19 35 06/24/18 07:00 91 20 173/62 (99) 98 06/24/18 06:00 88 17 147/115 (126) 99 06/24/18 05:11 78 16 35 06/24/18 05:00 87 17 153/56 (88) 99 06/24/18 04:42 86 162/57 06/24/18 04:00 92 06/24/18 04:00 99.4 92 17 162/57 (92) 99 06/24/18 04:00 Mechanical Ventilator Mechanical Ventilator 06/24/18 04:00 35 06/24/18 03:45 85 16 35 06/24/18 03:45 88 16 100 Mechanical Ventilator 35 06/24/18 03:35 91 16 100 Mechanical Ventilator 35 06/24/18 03:00 89 16 166/69 (101) 99 06/24/18 02:00 100 16 171/73 (105) 99 06/24/18 01:48 98 16 35 06/24/18 01:00 94 16 171/73 (105) 99 06/24/18 00:00 87 06/24/18 00:00 99.2 81 20 147/59 (88) 99 06/24/18 00:00 35 06/24/18 00:00 Mechanical Ventilator Mechanical Ventilator 06/23/18 23:30 86 20 100 Mechanical Ventilator 35 06/23/18 23:16 89 19 35 06/23/18 23:16 90 22 100 Mechanical Ventilator 35 06/23/18 23:00 87 20 164/71 (102) 99 06/23/18 22:00 87 16 150/64 (92) 98 06/23/18 21:28 86 18 35 Intake and Output 06/23/18 06/24/18 19:00 07:00 Intake Total 55 ml 0 ml Output Total 600 ml 750 ml Balance -545 ml -750 ml IV Total 55 ml Tube Feeding 0 ml 0 ml Output Urine Total 600 ml 750 ml Laboratory Tests 06/24/18 04:00: White Blood Count 9.3, Red Blood Count 3.58L, Hemoglobin 8.0L, Hematocrit 26.1L , Mean Corpuscular Volume 73L, Mean Corpuscular Hemoglobin 22.4L, Mean Corpuscular Hemoglobin Concent 30.8L, Red Cell Distribution Width 17.8H, Platelet Count 195, Mean Platelet Volume 7.4, Neutrophils (%) (Auto) 71.0, Lymphocytes (%) (Auto) 16.0L, Monocytes (%) (Auto) 7.2, Eosinophils (%) (Auto) 5.1H, Basophils (%) (Auto) 0.8, Sodium Level 139, Potassium Level 4.6, Chloride Level 102, Carbon Dioxide Level 27, Anion Gap 10, Blood Urea Nitrogen 88H, Creatinine 3.6H, Estimat Glomerular Filtration Rate , Glucose Level 73L, Calcium Level 8.8, Phosphorus Level 5.9H, Magnesium Level 1.5L, Total Bilirubin 0.3, Aspartate Amino Transf (AST/SGOT) 26, Alanine Aminotransferase (ALT/SGPT) 22, Alkaline Phosphatase 67, Pro-B-Type Natriuretic Peptide 1676H, Total Protein 6.3L, Albumin 2.3L, Globulin 4.0, Albumin/Globulin Ratio 0.6L, Random Vancomycin Level 16.9 06/24/18 12:19: Arterial Blood pH 7.368, Arterial Blood Partial Pressure CO2 48.6H, Arterial Blood Partial Pressure O2 92.3, Arterial Blood HCO3 27.3H, Arterial Blood Oxygen Saturation 96.3, Arterial Blood Base Excess 1.7, David Test Positive Height (Feet): 5 Height (Inches): 4.00 Weight (Pounds): 115 General Appearance: no apparent distress, alert EENT: PERRL/EOMI, pharynx normal Neck: non-tender, supple Cardiovascular: normal rate, regular rhythm, no gallop/murmur, no JVD Respiratory/Chest: chest wall non-tender, normal breath sounds, no respiratory distress Abdomen: non tender, soft, no mass Edema: no edema noted Arm (L), no edema noted Arm (R), no edema noted Leg (L), no edema noted Leg (R), no edema noted Pedal (L), no edema noted Pedal (R), no edema noted Generalized Neurologic: alert Skin: warm/dry Lymphatic: normal anterior cervical (L), normal anterior cervical (R), normal posterior cervical (L), normal posterior cervical (R), normal submandibular (L) , normal submandibular (R), normal supraclavicular (L), normal supraclavicular ( R), normal axillary (L), normal axillary (R), normal inguinal (L), normal inguinal (R), normal other Cruz Valderrama MD Jun 24, 2018 21:13
--- NOTE | 2018-06-24 22:00 | NUR ---
NURSE NOTES: Pt is sleeping on the bed but confused. No sign of acute distress noted. BP checked 121/44mmHg. No sign of pain by facial expression. Tolerated well with G-tube feeding and no residual noted. Changed position. Placed fall precaution. Will continue monitor any change of condition.
[2018-06-25] VITALS (25 sets, daily range): BP systolic 121–160; BP diastolic 43–70
--- NOTE | 2018-06-25 | NUR ---
NURSE NOTES: Pt is sleeping on the bed but still confused and disoriented. Checked circulation and comfort for bilateral wrist restraint. Tolerated G-tube feeding @ 20cc/hr. No residual noted. increase to 30cc/hr. Keep HOB position. Applied abdominal binder. No sign of active bleeding noted. V/S stable. Provided good sleep environment. Placed fall precaution. Will continue to care plan.
--- NOTE | 2018-06-25 02:00 | NUR ---
NURSE NOTES: Changed PICC line dressing on Rt. upper arm. PICC line site intact and no sign of infiltration noted. But no blood return from red port area. Tolerated well with current Vent setting.
[2018-06-25] MEDS: Albuterol/Ipratropium 3ml neb HHN PRN (03:26)
--- NOTE | 2018-06-25 04:00 | NUR ---
NURSE NOTES: Morning care was done. Given tracheal and oral suction. Tolerated well with current Vent setting. Pt is awake and confused. Still trying to touch trach and G-tube when release restraint when during care. Given verbal cueing but didn't understanding. Keep abdomen binder for protection. Tolerated well with G-tube feeding. Still noted redness on sacral area and change dressing. No open wound noted. On P200 mattress. Placed fall precaution. Will continue to care plan.
[2018-06-25] MEDS: HYDROcodone/Acetamin 5/325 tab ORAL PRN (05:27)
--- NOTE | 2018-06-25 06:00 | NUR ---
NURSE NOTES: On G-tube feeding with Nepro @ 30cc/hr and tolerated well. No residual noted. Increased to 40cc/hr. Will continue to monitor any change of condition.
--- NOTE | 2018-06-25 07:12 | NUR ---
HAND-OFF: Report given to MARGY Davis. Pt is sleeping on the bed and no sign of acute distress noted. Tolerated well with current vent setting.
--- NOTE | 2018-06-25 07:30 | NUR ---
NURSE NOTES: Received the patient from MARGY Arenas. Patient resting in bed, easily arousable, confused. S/p trach placement, Siley 8.0. No bleeding noted. Trach to vent, settings: AC16, TV400, FiO2 30%, PEEP 5, O2 sat 96%. No acute distress noted. Pt noted with G-tube, abdominal binder intact. pt on Nepro at 40ml/hr. SR noted on the monitor. Right upper arm double lumen PICC dressing i/c/d. Rectal tube intact and patent. Sinclair cath intact, draining urine by gravity. On bilateral wrist soft restraints, skin intact and pulses present. Pt on P200 mattress. Bed in lowest position, locked, side rails upx3, bed alarms on. Will continue to monitor.
[2018-06-25] MEDS: Vancomycin oral 125mg/2.5ml NG SCH ×4 (08:37→21:37)
[2018-06-25] MEDS: Lactobacillus-GG tablet ORAL SCH (08:37)
[2018-06-25] MEDS: Pantoprazole Inj IVP SCH (08:37)
[2018-06-25] MEDS: Heparin 5000 units/ml inj SUBQ SCH ×2 (08:39→21:40)
--- NOTE | 2018-06-25 09:43 | NUR ---
NURSE NOTES: pt resting in bed, no distress noted. Chest xray being done, tech at bedside. pt tolerating gtube feeding.
--- NOTE | 2018-06-25 09:53 | Infectious Diseases Prog Note ---
Assessment/Plan Assessment/Plan 87 yo feamle with PMHx of COPD, HTN, and A.fib sent to the ED from her nuring home for SOB. Sepsis;improving - Likely PNA 06/21 CXR: Slightly increased right lung opacity, suspect increasing pleural fluid.Increased retrocardiac consolidation 06/17 CXR: Increasing right lung opacity, likely representing decreasing pleural fluid but may also represent increasing parenchymal consolidation 06/15 CXR: Increasing opacification right hemithorax, likely reflecting increasing pleural fluid but may also reflect increasing pulmonary parenchymal consolidation 06/14 CXR: Diffuse right lung hazy opacity appears similar to the prior exam. 06/12 CXR: : Hazy opacification of the right hemithorax, likely reflecting pleural fluid, is unchanged. 05/28/18 CXR with atalectasis vs consolidation in the right side. 06/01/18 CXR - Extensive right hemithorax opacification UA (-) sputum cx 06/15: MRSA (likely a colonizer at this point), ESBL E.coli Sputum Cx 05/28/18 - MRSA (Inf Neg) Urine legionella (-) Acute respiratory failure s/p intubation 06/16 Cdiff colitis -06/19 Cdif toxin a/b + R lung collapse: -06/16 CXR: Complete opacification of the right hemithorax. Probably due to complete atelectasis of the right lung, with evidence of abrupt occlusion of the rightmainstem bronchus. Given findings on prior chest radiographs, there is probablysignificant component of pleural effusion as well. Positive blood Cx - Likely contaminant BCx 05/28/18 - CoNS BCX 05/30/18 - NGTD Leukocytosis , recurrent mild- resolved Fever, improving COPD CAD A. fib s/p trach 06/23 s/p PEG 06/24 PLAN - Continue Ertapenem #6 (abx d#10/) for ESBL Ecoli PNA -Continue PO Vancomycin #7/10 for Cdiff -06/20 SP Meropenem #5 -06/17 SP IV Vancomycin #21 -06/16 SP Cefepime #20 - Monitor CBC and Temps -f/u cx We will continue to follow Ms. Nowak during this hospitalization. Subjective Allergies: Coded Allergies: Mushroom (Verified Allergy, Severe, 05/28/18) MORPHINE (Unverified Allergy, Intermediate, Itching, 01/04/15) PENICILLINS (Unverified Allergy, Intermediate, Hives, 01/04/15) CELECOXIB (Verified Allergy, Mild, 01/15/09) Subjective afebrile no leucocytosis s/p PEG yesterday Objective Vital Signs Last 24 Hour Vital Signs Date Time Temp Pulse Resp B/P (MAP) Pulse Ox O2 Delivery O2 Flow Rate FiO2 06/25/18 09:00 91 18 125/51 (75) 98 06/25/18 08:38 87 130/47 06/25/18 08:00 35 06/25/18 08:00 98.2 84 17 130/47 (74) 97 06/25/18 08:00 84 06/25/18 08:00 Mechanical Ventilator Mechanical Ventilator 06/25/18 07:30 Mechanical Ventilator 06/25/18 07:30 Mechanical Ventilator 06/25/18 07:30 87 16 35 06/25/18 07:00 88 18 121/45 (70) 96 06/25/18 06:00 92 16 124/49 (74) 100 06/25/18 05:12 90 16 35 06/25/18 05:00 96 16 134/50 (78) 100 06/25/18 04:00 Mechanical Ventilator Mechanical Ventilator 06/25/18 04:00 92 06/25/18 04:00 35 06/25/18 04:00 97.9 88 23 147/59 (88) 100 06/25/18 03:40 99 17 100 Mechanical Ventilator 35 06/25/18 03:26 95 21 95 Mechanical Ventilator 35 06/25/18 03:26 95 18 35 06/25/18 03:00 92 16 155/55 (88) 100 06/25/18 02:00 81 16 123/43 (69) 100 06/25/18 01:34 81 16 35 06/25/18 01:00 82 16 123/47 (72) 100 06/25/18 00:00 Mechanical Ventilator Mechanical Ventilator 06/25/18 00:00 35 06/25/18 00:00 84 06/25/18 00:00 97.5 84 23 130/47 (74) 100 06/24/18 23:09 90 16 100 Mechanical Ventilator 35 06/24/18 23:00 77 16 122/65 (84) 100 06/24/18 22:59 75 16 100 Mechanical Ventilator 35 06/24/18 22:59 75 16 35 06/24/18 22:00 80 16 121/44 (69) 100 06/24/18 21:00 83 16 35 06/24/18 21:00 81 16 121/45 (70) 99 06/24/18 20:00 97.5 83 23 138/60 (86) 100 06/24/18 20:00 35 06/24/18 20:00 91 06/24/18 20:00 Mechanical Ventilator Mechanical Ventilator 06/24/18 19:12 89 16 100 Mechanical Ventilator 35 06/24/18 19:04 84 17 35 06/24/18 19:02 84 17 99 Mechanical Ventilator 35 06/24/18 19:00 84 16 169/72 (104) 100 06/24/18 17:54 89 21 164/65 (98) 98 06/24/18 17:49 97 177/66 06/24/18 17:10 97 24 35 06/24/18 16:00 98.4 96 23 177/66 (103) 98 06/24/18 16:00 85 06/24/18 16:00 35 06/24/18 16:00 Mechanical Ventilator Mechanical Ventilator 06/24/18 15:50 83 16 35 06/24/18 15:09 84 16 100 Mechanical Ventilator 35 06/24/18 15:00 84 16 148/62 (90) 100 06/24/18 14:59 93 21 98 Mechanical Ventilator 35 06/24/18 14:32 93 17 98 06/24/18 14:00 94 19 166/76 (106) 97 06/24/18 13:29 92 17 35 06/24/18 13:20 89 28 98 06/24/18 13:00 94 19 176/86 (116) 97 06/24/18 12:00 Mechanical Ventilator Mechanical Ventilator 06/24/18 12:00 35 06/24/18 12:00 98.8 81 23 164/61 (95) 99 06/24/18 11:46 78 16 100 Mechanical Ventilator 35 06/24/18 11:36 77 16 99 Mechanical Ventilator 35 06/24/18 11:23 94 156/71 06/24/18 11:16 94 19 35 06/24/18 11:00 94 24 156/71 (99) 98 06/24/18 10:00 95 20 166/72 (103) 98 Height (Feet): 5 Height (Inches): 4.00 Weight (Pounds): 114 Objective General Appearance: no apparent distress, other - on intubated Neck: supple Cardiovascular: normal rate Respiratory/Chest: lungs clear Abdomen: normal bowel sounds, non tender, soft Extremities: trace edema Laboratory Tests Test 06/24/18 12:19 Arterial Blood pH 7.368 (7.350-7.450) Arterial Blood Partial Pressure CO2 48.6 mmHg (35.0-45.0) H Arterial Blood Partial Pressure O2 92.3 mmHg (75.0-100.0) Arterial Blood HCO3 27.3 mmol/L (22.0-26.0) H Arterial Blood Oxygen Saturation 96.3 % (95-100) Arterial Blood Base Excess 1.7 (-2-2) David Test Positive Current Medications Medications (Trade) Dose Ordered Sig/Ann Route PRN Reason Start Time Stop Time Status Last Admin Dose Admin Acetaminophen (Tylenol) 650 mg Q4H PRN ORAL Mild Pain/Temp > 100.5 06/16/18 19:19 07/16/18 19:18 06/21/18 04:03 Acetaminophen/ Hydrocodone Bitart ([place] 5/325) 1 tab Q6H PRN ORAL Moderate Pain (Pain Scale 4-6) 06/24/18 19:30 07/01/18 19:29 06/25/18 05:27 Acetylcysteine (Mucomyst) 100 mg Q4HRT HHN 06/22/18 11:00 07/09/18 10:59 06/25/18 03:25 Amiodarone HCl (Cordarone) 200 mg DAILY@1800 ORAL 06/24/18 18:00 07/24/18 17:59 06/24/18 17:36 Amlodipine Besylate (Norvasc) 2.5 mg DAILY ORAL 06/25/18 09:00 07/25/18 08:59 06/25/18 08:38 Chlorhexidine Gluconate (Myra-Hex 2%) 1 applic DAILY@2000 TOPIC 06/16/18 20:00 07/02/18 19:59 06/24/18 19:55 Ertapenem 0.5 gm/ Sodium Chloride 55 ml @ 110 mls/hr Q24H IVPB 06/20/18 17:30 06/25/18 23:59 06/24/18 17:49 Haloperidol Lactate (Haldol) 5 mg Q6H PRN IM Agitation 06/16/18 19:20 07/16/18 19:19 Heparin Sodium (Porcine) (Heparin 5000 units/ml) 5,000 units EVERY 12 HOURS SUBQ 06/16/18 21:00 06/27/18 08:59 06/25/18 08:39 Lactobacillus Acidophilus (Culturelle) 1 tab TWICE A DAY GT 06/25/18 18:00 07/22/18 17:59 Metoprolol Tartrate (Lopressor) 5 mg Q6H PRN IVP SBP > 125 06/16/18 19:20 07/16/18 19:19 06/24/18 17:49 Nitroglycerin (Ntg) 0.4 mg Q5M PRN SL Prn Chest Pain 06/16/18 19:20 06/27/18 13:29 Ondansetron HCl (Zofran) 4 mg Q6H PRN IVP Nausea & Vomiting 06/16/18 19:21 07/16/18 19:20 Pantoprazole (Protonix) 40 mg DAILY IVP 06/20/18 20:00 07/20/18 19:59 06/25/18 08:37 Quetiapine Fumarate (SEROquel) 25 mg Q6H PRN ORAL For Anxiety 06/16/18 19:21 07/16/18 19:20 06/24/18 17:37 Vancomycin HCl (Firvanq) 125 mg FOUR TIMES A DAY NG 06/19/18 13:00 06/26/18 12:59 06/25/18 08:37 Natty Hernandes M.D. Jun 25, 2018 09:53
--- NOTE | 2018-06-25 10:35 | Diagnostic Imaging Report ---
EXAM: XR Chest, 1 View CLINICAL HISTORY: DYSPNEA TECHNIQUE: Frontal view of the chest. COMPARISON: Chest x-ray dated 06/21/18 FINDINGS: Lungs: No significant change in the patchy interstitial and alveolar opacities in bilateral lungs, right greater than left. Pleural space: Suggestion of bilateral layering pleural effusions, not significantly changed. Heart: Unremarkable. No cardiomegaly. Mediastinum: Unremarkable. Bones/joints: Unremarkable. Tubes, lines and devices: Tracheostomy tube has expected positioning. EKG leads overlie the thorax. IMPRESSION: 1. No significant change in the patchy interstitial and alveolar opacities in bilateral lungs, right greater than left. 2. Suggestion of bilateral layering pleural effusions, not significantly changed.
[2018-06-25 12:09] LABS: BASOPHILS % (AUTO) 0.8 % (0.0-2.0); EOSINOPHILS % (AUTO) 4.9 % (0.0-3.0); HEMATOCRIT 27.8 % (37.0-47.0); HEMOGLOBIN 8.7 G/DL (12.0-16.0); MEAN CORPUSCULAR VOLUME 72 FL (80-99); MONOCYTES % (AUTO) 7.2 % (1.0-10.0); PLATELET COUNT 221 K/UL (150-450); RED BLOOD COUNT 3.85 M/UL (4.20-5.40); RED CELL DISTRIBUTION WIDTH 17.9 % (11.6-14.8)
--- NOTE | 2018-06-25 12:30 | NUR ---
NURSE NOTES: oral care and grewal care performed. pt kept clean and dry. vss.
[2018-06-25 12:49] LABS: ALANINE AMINOTRANSFERASE 22 U/L (12-78); ALBUMIN 2.6 G/DL (3.4-5.0); ALBUMIN/GLOBULIN RATIO 0.6 (1.0-2.7); ALKALINE PHOSPHATASE 98 U/L (46-116); ANION GAP 8 mmol/L (5-15); ASPARTATE AMINO TRANSFERASE 20 U/L (15-37); BILIRUBIN,TOTAL 0.3 MG/DL (0.2-1.0); BLOOD UREA NITROGEN 85 mg/dL (7-18); CALCIUM 9.6 MG/DL (8.5-10.1); CARBON DIOXIDE 31 MMOL/L (21-32); CHLORIDE 101 MMOL/L (98-107); CREATININE 3.2 MG/DL (0.55-1.30); SODIUM 140 MMOL/L (136-145)
--- NOTE | 2018-06-25 14:30 | NUR ---
NURSE NOTES: trach suction provided, scant white secretion noted. patient was turned and repositioned.
--- NOTE | 2018-06-25 15:00 | Pulmonolgy Critical Care Note ---
Critical Care - Asmt/Plan Assessment/Plan: Problem List: 1. Acute on chronic hypercapnic respiratory failure -intubated 06/02; extubated 06/10 -reintubated 06/17 -trach 06/23 madan 8 2. R lung collapse, mucous plugging - resolved 3. Pulmonary edema 4. chronic obstructive asthma 5. Pneumonia 6. Hx afib 7. MRSA pna, recurrent fever and increased leukocytosis 8. ESBL E.coli pna 9. C.diff colitis 10. Pleural effusion Plan: -cont mechanical ventilatory support, weaning as tolerated -check aBG prn -check CXR -Trach/peg -aggressive pulmonary hygiene with duonebs/mucomyst/suctioning q4 -chest PT R lung -monitor volumes, hold IVF, may consider lasix -monitor renal function -abx per ID may beneft from thoracentesis Respiratory: adjust tidal volume, CXR Cardiac: start pressors Renal: F/U I&O, keep IV fluid Gastrointestinal: continue feedings/current rate Endocrine: check TSH Disposition: keep in ICU Notes Reviewed: spray ii painter, cardio Discussed with: nurses Critical Care - Objective Last 24 Hour Vital Signs Date Time Temp Pulse Resp B/P (MAP) Pulse Ox O2 Delivery O2 Flow Rate FiO2 06/25/18 14:00 102 18 155/63 (93) 98 06/25/18 13:05 91 16 35 06/25/18 13:00 90 18 137/51 (79) 97 06/25/18 12:00 35 06/25/18 12:00 97 06/25/18 12:00 98.3 94 21 160/55 (90) 97 06/25/18 12:00 Mechanical Ventilator Mechanical Ventilator 06/25/18 11:10 Mechanical Ventilator 06/25/18 11:10 Mechanical Ventilator 06/25/18 11:10 88 16 35 06/25/18 11:00 84 18 129/54 (79) 97 06/25/18 10:00 88 18 129/47 (74) 98 06/25/18 09:09 89 16 35 06/25/18 09:00 91 18 125/51 (75) 98 06/25/18 08:38 87 130/47 06/25/18 08:00 35 06/25/18 08:00 98.2 84 17 130/47 (74) 97 06/25/18 08:00 84 06/25/18 08:00 Mechanical Ventilator Mechanical Ventilator 06/25/18 07:30 Mechanical Ventilator 06/25/18 07:30 Mechanical Ventilator 06/25/18 07:30 87 16 35 06/25/18 07:00 88 18 121/45 (70) 96 06/25/18 06:00 92 16 124/49 (74) 100 06/25/18 05:12 90 16 35 06/25/18 05:00 96 16 134/50 (78) 100 06/25/18 04:00 Mechanical Ventilator Mechanical Ventilator 06/25/18 04:00 92 06/25/18 04:00 35 06/25/18 04:00 97.9 88 23 147/59 (88) 100 06/25/18 03:40 99 17 100 Mechanical Ventilator 35 06/25/18 03:26 95 21 95 Mechanical Ventilator 35 06/25/18 03:26 95 18 35 06/25/18 03:00 92 16 155/55 (88) 100 06/25/18 02:00 81 16 123/43 (69) 100 06/25/18 01:34 81 16 35 06/25/18 01:00 82 16 123/47 (72) 100 06/25/18 00:00 Mechanical Ventilator Mechanical Ventilator 06/25/18 00:00 35 06/25/18 00:00 84 06/25/18 00:00 97.5 84 23 130/47 (74) 100 06/24/18 23:09 90 16 100 Mechanical Ventilator 35 06/24/18 23:00 77 16 122/65 (84) 100 06/24/18 22:59 75 16 100 Mechanical Ventilator 35 06/24/18 22:59 75 16 35 06/24/18 22:00 80 16 121/44 (69) 100 06/24/18 21:00 83 16 35 06/24/18 21:00 81 16 121/45 (70) 99 06/24/18 20:00 97.5 83 23 138/60 (86) 100 06/24/18 20:00 35 06/24/18 20:00 91 06/24/18 20:00 Mechanical Ventilator Mechanical Ventilator 06/24/18 19:12 89 16 100 Mechanical Ventilator 35 06/24/18 19:04 84 17 35 06/24/18 19:02 84 17 99 Mechanical Ventilator 35 06/24/18 19:00 84 16 169/72 (104) 100 06/24/18 17:54 89 21 164/65 (98) 98 06/24/18 17:49 97 177/66 06/24/18 17:10 97 24 35 06/24/18 16:00 98.4 96 23 177/66 (103) 98 06/24/18 16:00 85 06/24/18 16:00 35 06/24/18 16:00 Mechanical Ventilator Mechanical Ventilator 06/24/18 15:50 83 16 35 06/24/18 15:09 84 16 100 Mechanical Ventilator 35 Status: awake Lungs: rhonchi Heart: HR/BP stable Abdomen: soft, non-tender Extremities: edema Critical Care - Subjective ROS Limited/Unobtainable: Yes Condition: critical FI02: 35 Vent Support Breath Rate: 16 Vent Support Mode: AC Vent Tidal Volume: 400 Sputum Amount: Moderate PEEP: 5.0 PIP: 26 Tube Feeding Amount: 40 I&O: Intake and Output 06/24/18 06/25/18 19:00 07:00 Intake Total 20 ml 375 ml Output Total 1650 ml 580 ml Balance -1630 ml -205 ml IV Total 55 ml Tube Feeding 20 ml 320 ml Output Urine Total 1600 ml 550 ml Stool Total 50 ml 30 ml Subjective: opens eyes to voice nonverbal on TF positive secretions remains on the vent no reports of cp nv or bleeding CXR: CXR unchanged! from previous film. ET-Tube: 7.5 ET Position: 23 Labs: Laboratory Tests Test 06/25/18 11:50 White Blood Count 9.0 K/UL (4.8-10.8) Red Blood Count 3.85 M/UL (4.20-5.40) L Hemoglobin 8.7 G/DL (12.0-16.0) L Hematocrit 27.8 % (37.0-47.0) L Mean Corpuscular Volume 72 FL (80-99) L Mean Corpuscular Hemoglobin 22.5 PG (27.0-31.0) L Mean Corpuscular Hemoglobin Concent 31.2 G/DL (32.0-36.0) L Red Cell Distribution Width 17.9 % (11.6-14.8) H Platelet Count 221 K/UL (150-450) Mean Platelet Volume 7.4 FL (6.5-10.1) Neutrophils (%) (Auto) 66.0 % (45.0-75.0) Lymphocytes (%) (Auto) 21.0 % (20.0-45.0) Monocytes (%) (Auto) 7.2 % (1.0-10.0) Eosinophils (%) (Auto) 4.9 % (0.0-3.0) H Basophils (%) (Auto) 0.8 % (0.0-2.0) Sodium Level 140 MMOL/L (136-145) Potassium Level 4.0 MMOL/L (3.5-5.1) Chloride Level 101 MMOL/L (98-107) Carbon Dioxide Level 31 MMOL/L (21-32) Anion Gap 8 mmol/L (5-15) Blood Urea Nitrogen 85 mg/dL (7-18) H Creatinine 3.2 MG/DL (0.55-1.30) H Estimat Glomerular Filtration Rate mL/min (>60) Glucose Level 145 MG/DL (74-106) H Calcium Level 9.6 MG/DL (8.5-10.1) Total Bilirubin 0.3 MG/DL (0.2-1.0) Aspartate Amino Transf (AST/SGOT) 20 U/L (15-37) Alanine Aminotransferase (ALT/SGPT) 22 U/L (12-78) Alkaline Phosphatase 98 U/L (46-116) Pro-B-Type Natriuretic Peptide 1722 pg/mL (0-125) H Total Protein 6.9 G/DL (6.4-8.2) Albumin 2.6 G/DL (3.4-5.0) L Globulin 4.3 g/dL Albumin/Globulin Ratio 0.6 (1.0-2.7) L Current Medications Medications (Trade) Dose Ordered Sig/Ann Route PRN Reason Start Time Stop Time Status Last Admin Dose Admin Acetaminophen (Tylenol) 650 mg Q4H PRN ORAL Mild Pain/Temp > 100.5 06/16/18 19:19 07/16/18 19:18 06/21/18 04:03 Acetaminophen/ Hydrocodone Bitart (Sibley 5/325) 1 tab Q6H PRN ORAL Moderate Pain (Pain Scale 4-6) 06/24/18 19:30 07/01/18 19:29 06/25/18 05:27 Acetylcysteine (Mucomyst) 100 mg Q4HRT HHN 06/22/18 11:00 07/09/18 10:59 06/25/18 03:25 Amiodarone HCl (Cordarone) 200 mg DAILY@1800 GT 06/25/18 18:00 07/24/18 17:59 Amlodipine Besylate (Norvasc) 2.5 mg DAILY ORAL 06/25/18 09:00 07/25/18 08:59 06/25/18 08:38 Chlorhexidine Gluconate (Myra-Hex 2%) 1 applic DAILY@2000 TOPIC 06/16/18 20:00 07/02/18 19:59 06/24/18 19:55 Ertapenem 0.5 gm/ Sodium Chloride 55 ml @ 110 mls/hr Q24H IVPB 06/20/18 17:30 06/25/18 23:59 06/24/18 17:49 Haloperidol Lactate (Haldol) 5 mg Q6H PRN IM Agitation 06/16/18 19:20 07/16/18 19:19 Heparin Sodium (Porcine) (Heparin 5000 units/ml) 5,000 units EVERY 12 HOURS SUBQ 06/16/18 21:00 06/27/18 08:59 06/25/18 08:39 Lactobacillus Acidophilus (Culturelle) 1 tab TWICE A DAY GT 06/25/18 18:00 07/22/18 17:59 Metoprolol Tartrate (Lopressor) 5 mg Q6H PRN IVP SBP > 125 06/16/18 19:20 07/16/18 19:19 06/24/18 17:49 Nitroglycerin (Ntg) 0.4 mg Q5M PRN SL Prn Chest Pain 06/16/18 19:20 06/27/18 13:29 Ondansetron HCl (Zofran) 4 mg Q6H PRN IVP Nausea & Vomiting 06/16/18 19:21 07/16/18 19:20 Pantoprazole (Protonix) 40 mg DAILY IVP 06/20/18 20:00 07/20/18 19:59 06/25/18 08:37 Quetiapine Fumarate (SEROquel) 25 mg Q6H PRN ORAL For Anxiety 06/16/18 19:21 07/16/18 19:20 06/24/18 17:37 Vancomycin HCl (Firvanq) 125 mg FOUR TIMES A DAY NG 06/19/18 13:00 06/28/18 23:59 06/25/18 13:24 Landy Lindsey DO Jun 25, 2018 15:00
--- NOTE | 2018-06-25 15:14 | Nephrology Progress Note ---
Assessment/Plan Problem List: (1) Acute renal failure Assessment: Cr lowering (2) Anuria (3) Acute respiratory failure Assessment: on vent (4) Dementia (5) Afib Assessment Cr lowering Urine out put rising Cr lowering other conditions: (1) Acute respiratory failure (2) Aspiration pneumonia (3) Acute encephalopathy (4) Pleural effusion (5) COPD (chronic obstructive pulmonary disease) (6) CAD (coronary artery disease) (7) Dementia Plan Mag So4 ordered Now trached and Pegged Cr lowering- Urine out put higher monitor vanco level family agree with HD . but no need for HD at this time intubated now ? Trach?? K and Phos and Mag as needed Anemia porter Adjust BP meds fu Lytes Gastric support per orders Subjective ROS Limited/Unobtainable: Yes Objective Objective Last 24 Hour Vital Signs Date Time Temp Pulse Resp B/P (MAP) Pulse Ox O2 Delivery O2 Flow Rate FiO2 06/25/18 14:00 102 18 155/63 (93) 98 06/25/18 13:05 91 16 35 06/25/18 13:00 90 18 137/51 (79) 97 06/25/18 12:00 35 06/25/18 12:00 97 06/25/18 12:00 98.3 94 21 160/55 (90) 97 06/25/18 12:00 Mechanical Ventilator Mechanical Ventilator 06/25/18 11:10 Mechanical Ventilator 06/25/18 11:10 Mechanical Ventilator 06/25/18 11:10 88 16 35 06/25/18 11:00 84 18 129/54 (79) 97 06/25/18 10:00 88 18 129/47 (74) 98 06/25/18 09:09 89 16 35 06/25/18 09:00 91 18 125/51 (75) 98 06/25/18 08:38 87 130/47 06/25/18 08:00 35 06/25/18 08:00 98.2 84 17 130/47 (74) 97 06/25/18 08:00 84 06/25/18 08:00 Mechanical Ventilator Mechanical Ventilator 06/25/18 07:30 Mechanical Ventilator 06/25/18 07:30 Mechanical Ventilator 06/25/18 07:30 87 16 35 06/25/18 07:00 88 18 121/45 (70) 96 06/25/18 06:00 92 16 124/49 (74) 100 06/25/18 05:12 90 16 35 06/25/18 05:00 96 16 134/50 (78) 100 06/25/18 04:00 Mechanical Ventilator Mechanical Ventilator 06/25/18 04:00 92 06/25/18 04:00 35 06/25/18 04:00 97.9 88 23 147/59 (88) 100 06/25/18 03:40 99 17 100 Mechanical Ventilator 35 06/25/18 03:26 95 21 95 Mechanical Ventilator 35 06/25/18 03:26 95 18 35 06/25/18 03:00 92 16 155/55 (88) 100 06/25/18 02:00 81 16 123/43 (69) 100 06/25/18 01:34 81 16 35 06/25/18 01:00 82 16 123/47 (72) 100 06/25/18 00:00 Mechanical Ventilator Mechanical Ventilator 06/25/18 00:00 35 06/25/18 00:00 84 06/25/18 00:00 97.5 84 23 130/47 (74) 100 06/24/18 23:09 90 16 100 Mechanical Ventilator 35 06/24/18 23:00 77 16 122/65 (84) 100 06/24/18 22:59 75 16 100 Mechanical Ventilator 35 06/24/18 22:59 75 16 35 06/24/18 22:00 80 16 121/44 (69) 100 06/24/18 21:00 83 16 35 06/24/18 21:00 81 16 121/45 (70) 99 06/24/18 20:00 97.5 83 23 138/60 (86) 100 06/24/18 20:00 35 06/24/18 20:00 91 06/24/18 20:00 Mechanical Ventilator Mechanical Ventilator 06/24/18 19:12 89 16 100 Mechanical Ventilator 35 06/24/18 19:04 84 17 35 06/24/18 19:02 84 17 99 Mechanical Ventilator 35 06/24/18 19:00 84 16 169/72 (104) 100 06/24/18 17:54 89 21 164/65 (98) 98 06/24/18 17:49 97 177/66 06/24/18 17:10 97 24 35 06/24/18 16:00 98.4 96 23 177/66 (103) 98 2/22/19 16:00 85 06/24/18 16:00 35 06/24/18 16:00 Mechanical Ventilator Mechanical Ventilator 06/24/18 15:50 83 16 35 Intake and Output 06/24/18 06/25/18 19:00 07:00 Intake Total 20 ml 375 ml Output Total 1650 ml 580 ml Balance -1630 ml -205 ml IV Total 55 ml Tube Feeding 20 ml 320 ml Output Urine Total 1600 ml 550 ml Stool Total 50 ml 30 ml Laboratory Tests 06/25/18 11:50: White Blood Count 9.0, Red Blood Count 3.85L, Hemoglobin 8.7L, Hematocrit 27.8L , Mean Corpuscular Volume 72L, Mean Corpuscular Hemoglobin 22.5L, Mean Corpuscular Hemoglobin Concent 31.2L, Red Cell Distribution Width 17.9H, Platelet Count 221, Mean Platelet Volume 7.4, Neutrophils (%) (Auto) 66.0, Lymphocytes (%) (Auto) 21.0, Monocytes (%) (Auto) 7.2, Eosinophils (%) (Auto) 4.9H, Basophils (%) (Auto) 0.8, Sodium Level 140, Potassium Level 4.0, Chloride Level 101, Carbon Dioxide Level 31, Anion Gap 8, Blood Urea Nitrogen 85H, Creatinine 3.2H, Estimat Glomerular Filtration Rate , Glucose Level 145H, Calcium Level 9.6, Total Bilirubin 0.3, Aspartate Amino Transf (AST/SGOT) 20, Alanine Aminotransferase (ALT/SGPT) 22, Alkaline Phosphatase 98, Pro-B-Type Natriuretic Peptide 1722H, Total Protein 6.9, Albumin 2.6L, Globulin 4.3, Albumin/Globulin Ratio 0.6L Height (Feet): 5 Height (Inches): 4.00 Weight (Pounds): 114 General Appearance: no apparent distress Cardiovascular: tachycardia Respiratory/Chest: decreased breath sounds Abdomen: distended Objective no change Kendrick Jimenez MD Jun 25, 2018 15:14
--- NOTE | 2018-06-25 15:36 | NUR ---
NURSE NOTES: Dr. Lindsey at bedside to assess the patient. MD updated on pt's condition. No new orders.
--- NOTE | 2018-06-25 16:16 | General Progress Note ---
Assessment/Plan Assessment/Plan Assessment - Resp failure - s/p PEG - C DIff diarrhea - COPD - CHF - PNA - Anemia Recommendations - GT feeds - Vent care - Elevated HOB - Monitor residuals - Abx - Pulmonary toilet - Vanco PO Subjective Allergies: Coded Allergies: Mushroom (Verified Allergy, Severe, 05/28/18) MORPHINE (Unverified Allergy, Intermediate, Itching, 01/04/15) PENICILLINS (Unverified Allergy, Intermediate, Hives, 06/25/18) Tolerates cephalosporins and carbapenems CELECOXIB (Verified Allergy, Mild, 01/15/09) Subjective Seen in ICU intubated s/p PEG tolerating TF d/w RN Objective Last 24 Hour Vital Signs Date Time Temp Pulse Resp B/P (MAP) Pulse Ox O2 Delivery O2 Flow Rate FiO2 06/25/18 16:00 35 06/25/18 16:00 87 06/25/18 16:00 Mechanical Ventilator Mechanical Ventilator 06/25/18 16:00 98.2 90 21 137/49 (78) 95 06/25/18 15:49 87 16 35 06/25/18 15:49 Mechanical Ventilator 06/25/18 15:49 Mechanical Ventilator 06/25/18 15:00 97 18 159/55 (89) 97 06/25/18 14:00 102 18 155/63 (93) 98 06/25/18 13:05 91 16 35 06/25/18 13:00 90 18 137/51 (79) 97 06/25/18 12:00 35 06/25/18 12:00 97 06/25/18 12:00 98.3 94 21 160/55 (90) 97 06/25/18 12:00 Mechanical Ventilator Mechanical Ventilator 06/25/18 11:10 Mechanical Ventilator 06/25/18 11:10 Mechanical Ventilator 06/25/18 11:10 88 16 35 06/25/18 11:00 84 18 129/54 (79) 97 06/25/18 10:00 88 18 129/47 (74) 98 06/25/18 09:09 89 16 35 06/25/18 09:00 91 18 125/51 (75) 98 06/25/18 08:38 87 130/47 06/25/18 08:00 35 06/25/18 08:00 98.2 84 17 130/47 (74) 97 06/25/18 08:00 84 06/25/18 08:00 Mechanical Ventilator Mechanical Ventilator 06/25/18 07:30 Mechanical Ventilator 06/25/18 07:30 Mechanical Ventilator 06/25/18 07:30 87 16 35 06/25/18 07:00 88 18 121/45 (70) 96 06/25/18 06:00 92 16 124/49 (74) 100 06/25/18 05:12 90 16 35 06/25/18 05:00 96 16 134/50 (78) 100 06/25/18 04:00 Mechanical Ventilator Mechanical Ventilator 06/25/18 04:00 92 06/25/18 04:00 35 06/25/18 04:00 97.9 88 23 147/59 (88) 100 06/25/18 03:40 99 17 100 Mechanical Ventilator 35 06/25/18 03:26 95 21 95 Mechanical Ventilator 35 06/25/18 03:26 95 18 35 06/25/18 03:00 92 16 155/55 (88) 100 06/25/18 02:00 81 16 123/43 (69) 100 06/25/18 01:34 81 16 35 06/25/18 01:00 82 16 123/47 (72) 100 06/25/18 00:00 Mechanical Ventilator Mechanical Ventilator 06/25/18 00:00 35 06/25/18 00:00 84 06/25/18 00:00 97.5 84 23 130/47 (74) 100 06/24/18 23:09 90 16 100 Mechanical Ventilator 35 06/24/18 23:00 77 16 122/65 (84) 100 06/24/18 22:59 75 16 100 Mechanical Ventilator 35 06/24/18 22:59 75 16 35 06/24/18 22:00 80 16 121/44 (69) 100 06/24/18 21:00 83 16 35 06/24/18 21:00 81 16 121/45 (70) 99 06/24/18 20:00 97.5 83 23 138/60 (86) 100 06/24/18 20:00 35 06/24/18 20:00 91 06/24/18 20:00 Mechanical Ventilator Mechanical Ventilator 06/24/18 19:12 89 16 100 Mechanical Ventilator 35 06/24/18 19:04 84 17 35 06/24/18 19:02 84 17 99 Mechanical Ventilator 35 06/24/18 19:00 84 16 169/72 (104) 100 06/24/18 17:54 89 21 164/65 (98) 98 06/24/18 17:49 97 177/66 06/24/18 17:10 97 24 35 Intake and Output 06/24/18 06/25/18 19:00 07:00 Intake Total 20 ml 375 ml Output Total 1650 ml 580 ml Balance -1630 ml -205 ml IV Total 55 ml Tube Feeding 20 ml 320 ml Output Urine Total 1600 ml 550 ml Stool Total 50 ml 30 ml Laboratory Tests 06/25/18 11:50: White Blood Count 9.0, Red Blood Count 3.85L, Hemoglobin 8.7L, Hematocrit 27.8L , Mean Corpuscular Volume 72L, Mean Corpuscular Hemoglobin 22.5L, Mean Corpuscular Hemoglobin Concent 31.2L, Red Cell Distribution Width 17.9H, Platelet Count 221, Mean Platelet Volume 7.4, Neutrophils (%) (Auto) 66.0, Lymphocytes (%) (Auto) 21.0, Monocytes (%) (Auto) 7.2, Eosinophils (%) (Auto) 4.9H, Basophils (%) (Auto) 0.8, Sodium Level 140, Potassium Level 4.0, Chloride Level 101, Carbon Dioxide Level 31, Anion Gap 8, Blood Urea Nitrogen 85H, Creatinine 3.2H, Estimat Glomerular Filtration Rate , Glucose Level 145H, Calcium Level 9.6, Total Bilirubin 0.3, Aspartate Amino Transf (AST/SGOT) 20, Alanine Aminotransferase (ALT/SGPT) 22, Alkaline Phosphatase 98, Pro-B-Type Natriuretic Peptide 1722H, Total Protein 6.9, Albumin 2.6L, Globulin 4.3, Albumin/Globulin Ratio 0.6L Height (Feet): 5 Height (Inches): 4.00 Weight (Pounds): 114 Objective Elderly WW NCAT, (+) NGT, (+)ETT Supple CTA RRR Soft, NT, ND No edema restrained Panchito Rahman MD Jun 25, 2018 16:16
--- NOTE | 2018-06-25 17:47 | NUR ---
RESPIRATORY NOTE: Received pt on and ended shift with ordered vent settings. Pt tracheostomy tube is patent and secured. No resp distress noted. Suctioned pt prn. Vent alarms are on and audible. Vent is plugged into red outlet. Will monitor pt progress.
--- NOTE | 2018-06-25 17:49 | General Progress Note ---
Assessment/Plan Status: progressing Assessment/Plan This is an 87-year-old female admitted with chronic obstructive pulmonary disease exacerbation, right lower lobe infiltrate/pneumonia with altered mental status and acute kidney injury. The patient will be admitted to [facility] with the following medical problems. 1. Chronic obstructive pulmonary disease exacerbation and pneumonia. The patient has been seen by Pulmonary. Infectious Disease has been consulted, pancultured. IV antibiotics per ID. Continue with BiPAP and suction p.r.n. Transition to Venturi-mask when stable. 2. Acute kidney injury. We will monitor I's and O's, gentle intravenous fluids. Repeat a BMP in a.m. Consider Nephrology consult. 3. History of chronic atrial fibrillation. Continue with amiodarone. The patient is in sinus rhythm at this time. 4. History of hypertension. Continue with amlodipine and hold for systolic blood pressure less than 110. 5. Altered mental status, most likely from above conditions. We will keep n.p.o. except for medications and start IV fluids. 6. DVT prophylaxis with heparin subcutaneous and SCDs. 7. The patient is Full Code per policy. We will discuss with the family. 8. hypokalmia 9. Anemia 10. CHf acute on chronic 11. leucocytosis 12. ARF? ATN 13. C dif positive 14. hyperkalemia 15. pleural effusion 16. S/p Tracheostomy 06/22/18 Plan: - continue respiratory support - aggressive pulmonary suction - HD on hold as patient putting out better urine and createnine is improving - antibiotics per ID - on oral vanco - am labs - weaning off vent per pulmonary - Gi prophylaxis with protonix iv 40 mg daily - s/p Kayexalate - norvasc added for better BP cotrol - s/p PEG discussed with nurse Contact isolation for C dif will need LTAC possible Tran possible going to step down unit tomorrow if stable Subjective Date patient seen: Jun 25, 2018 ROS Limited/Unobtainable: Yes Allergies: Coded Allergies: Mushroom (Verified Allergy, Severe, 05/28/18) MORPHINE (Unverified Allergy, Intermediate, Itching, 01/04/15) PENICILLINS (Unverified Allergy, Intermediate, Hives, 06/25/18) Tolerates cephalosporins and carbapenems CELECOXIB (Verified Allergy, Mild, 01/15/09) Subjective patient is now reintubated, in renal failure, HD on hold as making better urine , C dif positive on ngt vanco, s/p tracheostomy. s/p PEG Objective Last 24 Hour Vital Signs Date Time Temp Pulse Resp B/P (MAP) Pulse Ox O2 Delivery O2 Flow Rate FiO2 06/25/18 17:12 88 16 35 06/25/18 16:00 35 06/25/18 16:00 87 06/25/18 16:00 Mechanical Ventilator Mechanical Ventilator 06/25/18 16:00 98.2 90 21 137/49 (78) 95 06/25/18 15:49 87 16 35 06/25/18 15:49 Mechanical Ventilator 06/25/18 15:49 Mechanical Ventilator 06/25/18 15:00 97 18 159/55 (89) 97 06/25/18 14:00 102 18 155/63 (93) 98 06/25/18 13:05 91 16 35 06/25/18 13:00 90 18 137/51 (79) 97 06/25/18 12:00 35 06/25/18 12:00 97 06/25/18 12:00 98.3 94 21 160/55 (90) 97 06/25/18 12:00 Mechanical Ventilator Mechanical Ventilator 06/25/18 11:10 Mechanical Ventilator 06/25/18 11:10 Mechanical Ventilator 06/25/18 11:10 88 16 35 06/25/18 11:00 84 18 129/54 (79) 97 06/25/18 10:00 88 18 129/47 (74) 98 06/25/18 09:09 89 16 35 06/25/18 09:00 91 18 125/51 (75) 98 06/25/18 08:38 87 130/47 06/25/18 08:00 35 06/25/18 08:00 98.2 84 17 130/47 (74) 97 06/25/18 08:00 84 06/25/18 08:00 Mechanical Ventilator Mechanical Ventilator 06/25/18 07:30 Mechanical Ventilator 06/25/18 07:30 Mechanical Ventilator 06/25/18 07:30 87 16 35 06/25/18 07:00 88 18 121/45 (70) 96 06/25/18 06:00 92 16 124/49 (74) 100 06/25/18 05:12 90 16 35 06/25/18 05:00 96 16 134/50 (78) 100 06/25/18 04:00 Mechanical Ventilator Mechanical Ventilator 06/25/18 04:00 92 06/25/18 04:00 35 06/25/18 04:00 97.9 88 23 147/59 (88) 100 06/25/18 03:40 99 17 100 Mechanical Ventilator 35 06/25/18 03:26 95 21 95 Mechanical Ventilator 35 06/25/18 03:26 95 18 35 06/25/18 03:00 92 16 155/55 (88) 100 06/25/18 02:00 81 16 123/43 (69) 100 06/25/18 01:34 81 16 35 06/25/18 01:00 82 16 123/47 (72) 100 06/25/18 00:00 Mechanical Ventilator Mechanical Ventilator 06/25/18 00:00 35 06/25/18 00:00 84 06/25/18 00:00 97.5 84 23 130/47 (74) 100 06/24/18 23:09 90 16 100 Mechanical Ventilator 35 06/24/18 23:00 77 16 122/65 (84) 100 06/24/18 22:59 75 16 100 Mechanical Ventilator 35 06/24/18 22:59 75 16 35 06/24/18 22:00 80 16 121/44 (69) 100 06/24/18 21:00 83 16 35 06/24/18 21:00 81 16 121/45 (70) 99 06/24/18 20:00 97.5 83 23 138/60 (86) 100 06/24/18 20:00 35 06/24/18 20:00 91 06/24/18 20:00 Mechanical Ventilator Mechanical Ventilator 06/24/18 19:12 89 16 100 Mechanical Ventilator 35 06/24/18 19:04 84 17 35 06/24/18 19:02 84 17 99 Mechanical Ventilator 35 06/24/18 19:00 84 16 169/72 (104) 100 06/24/18 17:54 89 21 164/65 (98) 98 06/24/18 17:49 97 177/66 Intake and Output 06/24/18 06/25/18 19:00 07:00 Intake Total 20 ml 375 ml Output Total 1650 ml 580 ml Balance -1630 ml -205 ml IV Total 55 ml Tube Feeding 20 ml 320 ml Output Urine Total 1600 ml 550 ml Stool Total 50 ml 30 ml Laboratory Tests 06/25/18 11:50: White Blood Count 9.0, Red Blood Count 3.85L, Hemoglobin 8.7L, Hematocrit 27.8L , Mean Corpuscular Volume 72L, Mean Corpuscular Hemoglobin 22.5L, Mean Corpuscular Hemoglobin Concent 31.2L, Red Cell Distribution Width 17.9H, Platelet Count 221, Mean Platelet Volume 7.4, Neutrophils (%) (Auto) 66.0, Lymphocytes (%) (Auto) 21.0, Monocytes (%) (Auto) 7.2, Eosinophils (%) (Auto) 4.9H, Basophils (%) (Auto) 0.8, Sodium Level 140, Potassium Level 4.0, Chloride Level 101, Carbon Dioxide Level 31, Anion Gap 8, Blood Urea Nitrogen 85H, Creatinine 3.2H, Estimat Glomerular Filtration Rate , Glucose Level 145H, Calcium Level 9.6, Total Bilirubin 0.3, Aspartate Amino Transf (AST/SGOT) 20, Alanine Aminotransferase (ALT/SGPT) 22, Alkaline Phosphatase 98, Pro-B-Type Natriuretic Peptide 1722H, Total Protein 6.9, Albumin 2.6L, Globulin 4.3, Albumin/Globulin Ratio 0.6L Height (Feet): 5 Height (Inches): 4.00 Weight (Pounds): 114 General Appearance: no apparent distress, alert EENT: PERRL/EOMI, pharynx normal Neck: non-tender, supple Cardiovascular: normal rate, regular rhythm, no gallop/murmur, no JVD Respiratory/Chest: chest wall non-tender, normal breath sounds, no respiratory distress Abdomen: non tender, soft, no mass Extremities: non-tender, normal inspection, no calf tenderness Edema: no edema noted Arm (L), no edema noted Arm (R), no edema noted Leg (L), no edema noted Leg (R), no edema noted Pedal (L), no edema noted Pedal (R), no edema noted 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
[2018-06-25] MEDS ORDERED: Metoprolol 5mg/5ml Inj IVP PRN (18:00)
[2018-06-25] MEDS ORDERED: Amiodarone 200mg tab GT SCH (18:00)
[2018-06-25] MEDS: Ertapenem 0.5 GM in NS 55 ML IVPB SCH (18:04)
[2018-06-25] MEDS: Lactobacillus-GG tablet GT SCH (18:05)
--- NOTE | 2018-06-25 18:10 | NUR ---
NURSE NOTES: Patient on bilateral soft wrist restraints. no skin breakdown noted. no distress noted at this time. Dr. Valderrama at bedside.
--- NOTE | 2018-06-25 19:17 | NUR ---
HAND-OFF: Report given to MARGY Foley.
[2018-06-25] MEDS: Dyna-Hex 2% Top Sol 2oz TOPIC SCH (19:59)
--- NOTE | 2018-06-25 20:00 | NUR ---
NURSE NOTES: pt awake and restless and confuse medicated with tridol im as order
--- NOTE | 2018-06-25 22:00 | NUR ---
NURSE NOTES: pt asleep vs stable reposition and suction brad soft restraints non complaints
--- NOTE | 2018-06-25 22:27 | Cardiology Progress Note ---
Assessment/Plan Assessment/Plan paroxysmal a fib, at present time in sinus rhythm Subjective Subjective The patient is on vent, she opnes her eyes, but no interaction Objective Last 24 Hour Vital Signs Date Time Temp Pulse Resp B/P (MAP) Pulse Ox O2 Delivery O2 Flow Rate FiO2 06/25/18 21:30 98 20 35 06/25/18 20:00 35 06/25/18 20:00 Mechanical Ventilator Mechanical Ventilator 06/25/18 20:00 100 06/25/18 19:30 100 20 35 06/25/18 19:00 95 21 155/57 (89) 97 06/25/18 19:00 Mechanical Ventilator 06/25/18 19:00 Mechanical Ventilator 06/25/18 18:00 93 20 156/64 (94) 96 06/25/18 17:12 88 16 35 06/25/18 17:00 95 18 137/52 (80) 93 06/25/18 16:00 35 06/25/18 16:00 87 06/25/18 16:00 Mechanical Ventilator Mechanical Ventilator 06/25/18 16:00 98.2 90 21 137/49 (78) 95 06/25/18 15:49 87 16 35 06/25/18 15:49 Mechanical Ventilator 06/25/18 15:49 Mechanical Ventilator 06/25/18 15:00 97 18 159/55 (89) 97 06/25/18 14:00 102 18 155/63 (93) 98 06/25/18 13:05 91 16 35 06/25/18 13:00 90 18 137/51 (79) 97 06/25/18 12:00 35 06/25/18 12:00 97 06/25/18 12:00 98.3 94 21 160/55 (90) 97 06/25/18 12:00 Mechanical Ventilator Mechanical Ventilator 06/25/18 11:10 Mechanical Ventilator 06/25/18 11:10 Mechanical Ventilator 06/25/18 11:10 88 16 35 06/25/18 11:00 84 18 129/54 (79) 97 06/25/18 10:00 88 18 129/47 (74) 98 06/25/18 09:09 89 16 35 06/25/18 09:00 91 18 125/51 (75) 98 06/25/18 08:38 87 130/47 06/25/18 08:00 35 06/25/18 08:00 98.2 84 17 130/47 (74) 97 06/25/18 08:00 84 06/25/18 08:00 Mechanical Ventilator Mechanical Ventilator 06/25/18 07:30 Mechanical Ventilator 06/25/18 07:30 Mechanical Ventilator 06/25/18 07:30 87 16 35 06/25/18 07:00 88 18 121/45 (70) 96 06/25/18 06:00 92 16 124/49 (74) 100 06/25/18 05:12 90 16 35 06/25/18 05:00 96 16 134/50 (78) 100 06/25/18 04:00 Mechanical Ventilator Mechanical Ventilator 06/25/18 04:00 92 06/25/18 04:00 35 06/25/18 04:00 97.9 88 23 147/59 (88) 100 06/25/18 03:40 99 17 100 Mechanical Ventilator 35 06/25/18 03:26 95 21 95 Mechanical Ventilator 35 06/25/18 03:26 95 18 35 06/25/18 03:00 92 16 155/55 (88) 100 06/25/18 02:00 81 16 123/43 (69) 100 06/25/18 01:34 81 16 35 06/25/18 01:00 82 16 123/47 (72) 100 06/25/18 00:00 Mechanical Ventilator Mechanical Ventilator 06/25/18 00:00 35 06/25/18 00:00 84 06/25/18 00:00 97.5 84 23 130/47 (74) 100 06/24/18 23:09 90 16 100 Mechanical Ventilator 35 06/24/18 23:00 77 16 122/65 (84) 100 06/24/18 22:59 75 16 100 Mechanical Ventilator 35 06/24/18 22:59 75 16 35 General Appearance: on vent, other - tracheostomy EENT: PERRL/EOMI Neck: JVD Rhythm: NSR Cardiovascular: normal rate, systolic murmur Respiratory/Chest: crackles/rales Abdomen: soft Extremities: other Intake and Output 06/24/18 06/25/18 19:00 07:00 Intake Total 20 ml 375 ml Output Total 1650 ml 580 ml Balance -1630 ml -205 ml IV Total 55 ml Tube Feeding 20 ml 320 ml Output Urine Total 1600 ml 550 ml Stool Total 50 ml 30 ml Laboratory Tests Test 06/25/18 11:50 White Blood Count 9.0 K/UL (4.8-10.8) Red Blood Count 3.85 M/UL (4.20-5.40) L Hemoglobin 8.7 G/DL (12.0-16.0) L Hematocrit 27.8 % (37.0-47.0) L Mean Corpuscular Volume 72 FL (80-99) L Mean Corpuscular Hemoglobin 22.5 PG (27.0-31.0) L Mean Corpuscular Hemoglobin Concent 31.2 G/DL (32.0-36.0) L Red Cell Distribution Width 17.9 % (11.6-14.8) H Platelet Count 221 K/UL (150-450) Mean Platelet Volume 7.4 FL (6.5-10.1) Neutrophils (%) (Auto) 66.0 % (45.0-75.0) Lymphocytes (%) (Auto) 21.0 % (20.0-45.0) Monocytes (%) (Auto) 7.2 % (1.0-10.0) Eosinophils (%) (Auto) 4.9 % (0.0-3.0) H Basophils (%) (Auto) 0.8 % (0.0-2.0) Sodium Level 140 MMOL/L (136-145) Potassium Level 4.0 MMOL/L (3.5-5.1) Chloride Level 101 MMOL/L (98-107) Carbon Dioxide Level 31 MMOL/L (21-32) Anion Gap 8 mmol/L (5-15) Blood Urea Nitrogen 85 mg/dL (7-18) H Creatinine 3.2 MG/DL (0.55-1.30) H Estimat Glomerular Filtration Rate mL/min (>60) Glucose Level 145 MG/DL (74-106) H Calcium Level 9.6 MG/DL (8.5-10.1) Total Bilirubin 0.3 MG/DL (0.2-1.0) Aspartate Amino Transf (AST/SGOT) 20 U/L (15-37) Alanine Aminotransferase (ALT/SGPT) 22 U/L (12-78) Alkaline Phosphatase 98 U/L (46-116) Pro-B-Type Natriuretic Peptide 1722 pg/mL (0-125) H Total Protein 6.9 G/DL (6.4-8.2) Albumin 2.6 G/DL (3.4-5.0) L Globulin 4.3 g/dL Albumin/Globulin Ratio 0.6 (1.0-2.7) L Viry Boland MD Jun 25, 2018 22:27
[2018-06-26] VITALS (21 sets, daily range): BP systolic 101–167; BP diastolic 38–60
--- NOTE | 2018-06-26 | NUR ---
NURSE NOTES: reposition and suction no acute distress noted
--- NOTE | 2018-06-26 02:00 | NUR ---
NURSE NOTES: un change condition
--- NOTE | 2018-06-26 04:00 | NUR ---
NURSE NOTES: am care done oral care grewal care done wound care done picture done
[2018-06-26 06:21] LABS: HEMOGLOBIN 7.7 G/DL (12.0-16.0); MEAN CORPUSCULAR VOLUME 72 FL (80-99); PLATELET COUNT 216 K/UL (150-450); RED BLOOD COUNT 3.47 M/UL (4.20-5.40); RED CELL DISTRIBUTION WIDTH 18.2 % (11.6-14.8)
[2018-06-26 06:51] LABS: ALANINE AMINOTRANSFERASE 19 U/L (12-78); ALBUMIN 2.4 G/DL (3.4-5.0); ALBUMIN/GLOBULIN RATIO 0.6 (1.0-2.7); ALKALINE PHOSPHATASE 77 U/L (46-116); ANION GAP 8 mmol/L (5-15); ASPARTATE AMINO TRANSFERASE 16 U/L (15-37); BILIRUBIN,TOTAL 0.2 MG/DL (0.2-1.0); BLOOD UREA NITROGEN 85 mg/dL (7-18); CALCIUM 9.6 MG/DL (8.5-10.1); CARBON DIOXIDE 32 MMOL/L (21-32); CHLORIDE 105 MMOL/L (98-107); CREATININE 2.9 MG/DL (0.55-1.30); POTASSIUM 3.4 MMOL/L (3.5-5.1); SODIUM 145 MMOL/L (136-145)
--- NOTE | 2018-06-26 07:10 | NUR ---
RESPIRATORY NOTE: Patient received mechanically ventilated on PB 840 with current ordered vent settings. Patient has a trach size 8.0 Shiley cuffed that is secured with a trach tie and guard. Patient presented with bilateral coarse breath sounds and small amount of thick white secretions were suctioned without incident. There is no shortness of breath or respiratory distress noted at this time. There is an ambu bag available at the bedside and the vent is connected to a red outlet. Vent alarms are functional and audible. Will continue to monitor patient.
--- NOTE | 2018-06-26 07:35 | NUR ---
HAND-OFF: Report given to ashley amaro using rn.
--- NOTE | 2018-06-26 07:40 | NUR ---
NURSE NOTES: Received the patient from MARGY Foley. Patient awake, opens eyes spontaneously, does not follow commands. S/p trach placement, Siley 8.0. No bleeding noted. Trach to vent, settings: AC16, TV400, FiO2 30%, PEEP 5, O2 sat 96%. No acute distress noted. Pt noted with G-tube, abdominal binder intact. pt on Nepro at 40ml/hr. SR noted on the monitor. Right upper arm double lumen PICC dressing i/c/d. Sinclair cath intact, draining urine by gravity. On bilateral wrist soft restraints, skin intact and pulses present. Pt on P200 mattress. Bed in lowest position, locked, side rails upx3, bed alarms on. Will continue to monitor. Addendum: 06/26/18 at 0814 by SHILPA ARNETT RN Fio2 35%
[2018-06-26] MEDS: Pantoprazole Inj IVP SCH (08:04)
[2018-06-26] MEDS: Lactobacillus-GG tablet GT SCH ×2 (08:04→17:21)
[2018-06-26] MEDS: Vancomycin oral 125mg/2.5ml NG SCH ×4 (08:04→21:07)
[2018-06-26] MEDS: Heparin 5000 units/ml inj SUBQ SCH (08:06)
--- NOTE | 2018-06-26 09:27 | NUR ---
CASE MANAGEMENT: REVIEW SI: A-FIB . RESPIRATORY FAILURE TRACHEOSTOMY 06/23 PEG PLACEMENT 06/24 T 98.5 HR 100 RR 22 BP 107/56 SAT 97% MECH VENT FIO2 35 H/H 7.7/25.0 K 3.4 BUN 85 CR 2.9 IS: AMIODARONE PO QD PROTONIX IV QD VANCO HCl GT QID GT FEEDING NEPRO @40ML/HR ICU STATUS DCP: PATIENT IS FROM [facility]
--- NOTE | 2018-06-26 10:10 | NUR ---
NURSE NOTES: Dr. Rahman at bedside. MD updated on pt's condition. pt has diarrhea, okay to reinsert rectal tube per MD.
--- NOTE | 2018-06-26 10:36 | NUR ---
NURSE NOTES: Inserted rectal tube, draining brown liquid bm. pt tolerated well. vss. pt kept clean and dry.
[2018-06-26] MEDS ORDERED: NS 275ml ONE (10:57)
[2018-06-26] MEDS ORDERED: Tubing IV Secondary IV ONE (10:57)
--- NOTE | 2018-06-26 11:20 | NUR ---
NURSE NOTES: Patient failed weaning trial, pt noted with apnea on CPAP per RT. Pt back to AC mode.
[2018-06-26] MEDS ORDERED: Albuterol/Ipratropium 3ml neb HHN PRN (11:30)
[2018-06-26] MEDS: HYDROcodone/Acetamin 5/325 tab ORAL PRN (11:57)
--- NOTE | 2018-06-26 12:05 | NUR ---
NURSE NOTES: patient noted with constant frown and restless. prn norco given for pain. daughters at bedside.
[2018-06-26] MEDS ORDERED: Nitroglycerin Subl 0.4mg tab SL PRN (13:45)
[2018-06-26] MEDS ORDERED: Haloperidol 5mg/ml Inj IM PRN (14:00)
[2018-06-26] MEDS ORDERED: HYDROcodone/Acetamin 5/325 tab ORAL PRN (14:00)
--- NOTE | 2018-06-26 14:35 | NUR ---
NURSE NOTES: Patient resting in bed comfortably. no distress noted. No s/sx of pain at this time. Oral care and grewal care provided. pt kept clean and dry. wound dressings i/c/d.
[2018-06-26] MEDS: Albuterol/Ipratropium 3ml neb HHN PRN ×2 (15:16→23:48)
--- NOTE | 2018-06-26 16:19 | NUR ---
NURSE NOTES: Dr. Jimenez in facility, updated on pt's condition. KCl 40meq via G-tube ordered.
--- NOTE | 2018-06-26 16:41 | Nephrology Progress Note ---
Assessment/Plan Problem List: (1) Acute renal failure Assessment: Cr lowering (2) Anuria (3) Acute respiratory failure Assessment: on vent (4) Dementia (5) Afib Assessment Cr lowering Urine out put rising Cr lowering other conditions: (1) Acute respiratory failure (2) Aspiration pneumonia (3) Acute encephalopathy (4) Pleural effusion (5) COPD (chronic obstructive pulmonary disease) (6) CAD (coronary artery disease) (7) Dementia Plan Mag So4 ordered Now trached and Pegged Cr lowering- Urine out put higher monitor vanco level family agree with HD . but no need for HD at this time K and Phos and Mag as needed Anemia porter Adjust BP meds fu Lytes Gastric support per orders Subjective ROS Limited/Unobtainable: Yes Objective Objective Last 24 Hour Vital Signs Date Time Temp Pulse Resp B/P (MAP) Pulse Ox O2 Delivery O2 Flow Rate FiO2 06/26/18 16:00 Mechanical Ventilator Mechanical Ventilator 06/26/18 16:00 88 06/26/18 16:00 98.1 79 16 143/49 (80) 96 06/26/18 16:00 35 06/26/18 15:26 83 20 100 Mechanical Ventilator 35 06/26/18 15:16 77 16 97 Mechanical Ventilator 35 06/26/18 15:15 83 16 35 06/26/18 15:00 83 18 106/38 (60) 98 06/26/18 14:00 77 17 119/54 (75) 97 06/26/18 13:04 77 16 35 06/26/18 13:00 81 16 101/41 (61) 96 06/26/18 12:00 97.8 89 24 146/49 (81) 96 06/26/18 12:00 35 06/26/18 12:00 Mechanical Ventilator Mechanical Ventilator 06/26/18 12:00 93 06/26/18 11:10 Mechanical Ventilator 06/26/18 11:09 Mechanical Ventilator 06/26/18 11:00 84 17 124/45 (71) 99 06/26/18 10:43 85 16 35 06/26/18 10:00 92 22 145/47 (79) 96 06/26/18 09:00 98.6 85 16 131/46 (74) 95 06/26/18 08:45 90 16 35 06/26/18 08:04 98 157/55 06/26/18 08:00 98 06/26/18 08:00 35 06/26/18 08:00 Mechanical Ventilator Mechanical Ventilator 06/26/18 08:00 98 16 157/55 (89) 97 06/26/18 07:22 Mechanical Ventilator 06/26/18 07:19 Mechanical Ventilator 06/26/18 07:06 85 16 35 06/26/18 07:02 98.5 91 16 127/42 (70) 93 06/26/18 06:00 91 16 131/45 (73) 93 06/26/18 05:30 89 16 35 06/26/18 05:00 93 16 107/56 (73) 97 06/26/18 04:00 35 06/26/18 04:00 Mechanical Ventilator Mechanical Ventilator 06/26/18 04:00 100 06/26/18 04:00 91 22 167/60 (95) 94 06/26/18 03:38 Mechanical Ventilator 06/26/18 03:37 Mechanical Ventilator 06/26/18 03:30 86 17 35 06/26/18 03:00 87 17 130/49 (76) 93 06/26/18 02:00 84 21 155/57 (89) 97 06/26/18 01:30 88 17 35 06/26/18 01:00 83 20 142/54 (83) 97 06/26/18 00:00 98.5 90 18 134/52 (79) 97 06/26/18 00:00 81 06/26/18 00:00 Mechanical Ventilator Mechanical Ventilator 06/26/18 00:00 35 06/25/18 23:30 90 18 35 06/25/18 23:21 Mechanical Ventilator 06/25/18 23:21 Mechanical Ventilator 06/25/18 23:00 84 16 129/52 (77) 97 06/25/18 22:00 85 24 127/57 (80) 97 06/25/18 21:30 98 20 35 06/25/18 21:00 85 21 129/46 (73) 97 06/25/18 20:00 35 06/25/18 20:00 98.0 100 21 130/60 (83) 97 06/25/18 20:00 Mechanical Ventilator Mechanical Ventilator 06/25/18 20:00 100 06/25/18 19:30 100 20 35 06/25/18 19:00 95 21 155/57 (89) 97 06/25/18 19:00 Mechanical Ventilator 06/25/18 19:00 Mechanical Ventilator 06/25/18 18:00 93 20 156/64 (94) 96 06/25/18 17:12 88 16 35 06/25/18 17:00 95 18 137/52 (80) 93 Intake and Output 06/25/18 06/26/18 19:00 07:00 Intake Total 865 ml 780 ml Output Total 510 ml 460 ml Balance 355 ml 320 ml Free Water 330 ml 300 ml IV Total 55 ml Tube Feeding 480 ml 480 ml Output Urine Total 510 ml 460 ml Stool Total 0 ml # Bowel Movements 1 Laboratory Tests 06/26/18 04:30: White Blood Count 9.0, Red Blood Count 3.47L, Hemoglobin 7.7L, Hematocrit 25.0L , Mean Corpuscular Volume 72L, Mean Corpuscular Hemoglobin 22.3L, Mean Corpuscular Hemoglobin Concent 30.9L, Red Cell Distribution Width 18.2H, Platelet Count 216, Mean Platelet Volume 7.8, Neutrophils (%) (Auto) , Lymphocytes (%) (Auto) , Monocytes (%) (Auto) , Eosinophils (%) (Auto) , Basophils (%) (Auto) , Differential Total Cells Counted 100, Neutrophils % ( Manual) 74, Lymphocytes % (Manual) 22, Monocytes % (Manual) 2, Eosinophils % ( Manual) 2, Basophils % (Manual) 0, Band Neutrophils 0, Platelet Estimate Adequate, Platelet Morphology Normal, Hypochromasia 2+, Anisocytosis 1+, Microcytosis 1+, Sodium Level 145, Potassium Level 3.4L, Chloride Level 105, Carbon Dioxide Level 32, Anion Gap 8, Blood Urea Nitrogen 85H, Creatinine 2.9H, Estimat Glomerular Filtration Rate , Glucose Level 122H, Calcium Level 9.6, Total Bilirubin 0.2, Aspartate Amino Transf (AST/SGOT) 16, Alanine Aminotransferase (ALT/SGPT) 19, Alkaline Phosphatase 77, Pro-B-Type Natriuretic Peptide 1708H, Total Protein 6.4, Albumin 2.4L, Globulin 4.0, Albumin/Globulin Ratio 0.6L Height (Feet): 5 Height (Inches): 4.00 Weight (Pounds): 123 General Appearance: no apparent distress EENT: other - trach Cardiovascular: normal rate Respiratory/Chest: decreased breath sounds Abdomen: distended, other - PEG Objective no change Kendrick Jimenez MD Jun 26, 2018 16:41
[2018-06-26] MEDS: Amiodarone 200mg tab GT SCH (17:22)
--- NOTE | 2018-06-26 17:37 | NUR ---
NURSE NOTES: Patient awake, non-verbal, resting in bed comfortably. No s/sx of pain at this time. Patient was repositioned. Sinclair cath and rectal tube intact. vss.
[2018-06-26] MEDS ORDERED: Metoprolol 5mg/5ml Inj IVP PRN (18:00)
--- NOTE | 2018-06-26 18:42 | Pulmonolgy Critical Care Note ---
Critical Care - Asmt/Plan Assessment/Plan: Problem List: 1. Acute on chronic hypercapnic respiratory failure -intubated 06/02; extubated 06/10 -reintubated 06/17 -trach 06/23 shiley 8 2. R lung collapse, mucous plugging - resolved 3. Pulmonary edema 4. chronic obstructive asthma 5. Pneumonia 6. Hx afib 7. MRSA pna, recurrent fever and increased leukocytosis 8. ESBL E.coli pna 9. C.diff colitis 10. Pleural effusion Plan: -cont mechanical ventilatory support, weaning as tolerated -check aBG prn -check CXR -Trach/peg -aggressive pulmonary hygiene with duonebs/mucomyst/suctioning q4 -monitor volumes, hold IVF, may consider lasix -monitor renal function -abx per ID may beneft from thoracentesis Respiratory: CXR Cardiac: continue to monitor HR/BP Renal: F/U I&O Gastrointestinal: continue feedings/current rate Neurologic: PRN Ativan, PRN Morphine Disposition: keep in ICU Time Spent (Minutes): 40 Notes Reviewed: laboratory inspector, cardio Discussed with: nurses Critical Care - Objective Last 24 Hour Vital Signs Date Time Temp Pulse Resp B/P (MAP) Pulse Ox O2 Delivery O2 Flow Rate FiO2 06/26/18 18:00 74 18 124/44 (70) 98 06/26/18 17:00 78 23 142/50 (80) 96 06/26/18 16:49 76 16 35 06/26/18 16:00 Mechanical Ventilator Mechanical Ventilator 06/26/18 16:00 88 06/26/18 16:00 98.1 79 16 143/49 (80) 96 06/26/18 16:00 35 06/26/18 15:26 83 20 100 Mechanical Ventilator 35 06/26/18 15:16 77 16 97 Mechanical Ventilator 35 06/26/18 15:15 83 16 35 06/26/18 15:00 83 18 106/38 (60) 98 06/26/18 14:00 77 17 119/54 (75) 97 06/26/18 13:04 77 16 35 06/26/18 13:00 81 16 101/41 (61) 96 06/26/18 12:00 97.8 89 24 146/49 (81) 96 06/26/18 12:00 35 06/26/18 12:00 Mechanical Ventilator Mechanical Ventilator 06/26/18 12:00 93 06/26/18 11:10 Mechanical Ventilator 06/26/18 11:09 Mechanical Ventilator 06/26/18 11:00 84 17 124/45 (71) 99 06/26/18 10:43 85 16 35 06/26/18 10:00 92 22 145/47 (79) 96 06/26/18 09:00 98.6 85 16 131/46 (74) 95 06/26/18 08:45 90 16 35 06/26/18 08:04 98 157/55 06/26/18 08:00 98 06/26/18 08:00 35 06/26/18 08:00 Mechanical Ventilator Mechanical Ventilator 06/26/18 08:00 98 16 157/55 (89) 97 06/26/18 07:22 Mechanical Ventilator 06/26/18 07:19 Mechanical Ventilator 06/26/18 07:06 85 16 35 06/26/18 07:02 98.5 91 16 127/42 (70) 93 06/26/18 06:00 91 16 131/45 (73) 93 06/26/18 05:30 89 16 35 06/26/18 05:00 93 16 107/56 (73) 97 06/26/18 04:00 35 06/26/18 04:00 Mechanical Ventilator Mechanical Ventilator 06/26/18 04:00 100 06/26/18 04:00 91 22 167/60 (95) 94 06/26/18 03:38 Mechanical Ventilator 06/26/18 03:37 Mechanical Ventilator 06/26/18 03:30 86 17 35 06/26/18 03:00 87 17 130/49 (76) 93 06/26/18 02:00 84 21 155/57 (89) 97 06/26/18 01:30 88 17 35 06/26/18 01:00 83 20 142/54 (83) 97 06/26/18 00:00 98.5 90 18 134/52 (79) 97 06/26/18 00:00 81 06/26/18 00:00 Mechanical Ventilator Mechanical Ventilator 06/26/18 00:00 35 06/25/18 23:30 90 18 35 06/25/18 23:21 Mechanical Ventilator 06/25/18 23:21 Mechanical Ventilator 06/25/18 23:00 84 16 129/52 (77) 97 06/25/18 22:00 85 24 127/57 (80) 97 06/25/18 21:30 98 20 35 06/25/18 21:00 85 21 129/46 (73) 97 06/25/18 20:00 35 06/25/18 20:00 98.0 100 21 130/60 (83) 97 06/25/18 20:00 Mechanical Ventilator Mechanical Ventilator 06/25/18 20:00 100 06/25/18 19:30 100 20 35 06/25/18 19:00 95 21 155/57 (89) 97 06/25/18 19:00 Mechanical Ventilator 06/25/18 19:00 Mechanical Ventilator Status: awake Lungs: rhonchi Heart: HR/BP stable Abdomen: soft, non-tender Extremities: edema Critical Care - Subjective ROS Limited/Unobtainable: Yes Condition: improving FI02: 35 Vent Support Breath Rate: 16 Vent Support Mode: AC Vent Tidal Volume: 400 Sputum Amount: Small PEEP: 5.0 PIP: 28 Tube Feeding Amount: 40 I&O: Intake and Output 06/25/18 06/26/18 19:00 07:00 Intake Total 865 ml 780 ml Output Total 510 ml 460 ml Balance 355 ml 320 ml Free Water 330 ml 300 ml IV Total 55 ml Tube Feeding 480 ml 480 ml Output Urine Total 510 ml 460 ml Stool Total 0 ml # Bowel Movements 1 Subjective: opens eyes to voice nonverbal on TF positive secretions remains on the vent no reports of cp nv or bleeding ET-Tube: 7.5 ET Position: 23 Labs: Current Medications Medications (Trade) Dose Ordered Sig/Ann Route PRN Reason Start Time Stop Time Status Last Admin Dose Admin Acetaminophen (Tylenol) 650 mg Q4H PRN ORAL Mild Pain/Temp > 100.5 06/26/18 15:30 07/16/18 19:18 Acetaminophen/ Hydrocodone Bitart ([place] 5/325) 1 tab Q6H PRN ORAL Moderate Pain (Pain Scale 4-6) 06/26/18 14:00 07/01/18 13:59 Acetylcysteine (Mucomyst) 100 mg Q4HRT HHN 06/26/18 15:00 07/09/18 10:59 06/26/18 15:16 Albuterol/ Ipratropium (Albuterol/ Ipratropium) 3 ml Q4H PRN HHN Shortness of Breath 06/26/18 15:30 07/01/18 11:29 06/26/18 15:16 Amiodarone HCl (Cordarone) 200 mg DAILY@1800 GT 06/26/18 18:00 07/24/18 17:59 06/26/18 17:22 Amlodipine Besylate (Norvasc) 2.5 mg DAILY ORAL 06/27/18 09:00 07/25/18 08:59 Chlorhexidine Gluconate (Myra-Hex 2%) 1 applic DAILY@2000 TOPIC 06/26/18 20:00 07/02/18 19:59 Haloperidol Lactate (Haldol) 5 mg Q6H PRN IM Agitation 06/26/18 14:00 07/16/18 13:59 Heparin Sodium (Porcine) (Heparin 5000 units/ml) 5,000 units EVERY 12 HOURS SUBQ 06/26/18 21:00 06/27/18 08:59 Lactobacillus Acidophilus (Culturelle) 1 tab TWICE A DAY GT 06/26/18 18:00 07/22/18 17:59 06/26/18 17:21 Lansoprazole (Prevacid) 30 mg BID GT 06/26/18 18:00 07/26/18 17:59 06/26/18 17:21 Magnesium Sulfate 100 ml @ 100 mls/hr Q1H IVPB 06/26/18 17:00 06/26/18 20:59 06/26/18 18:23 Metoprolol Tartrate (Lopressor) 5 mg Q6H PRN IVP HR > 125 06/26/18 18:00 07/16/18 17:59 Nitroglycerin (Ntg) 0.4 mg Q5M PRN SL Prn Chest Pain 06/26/18 13:45 06/27/18 13:29 Ondansetron HCl (Zofran) 4 mg Q6H PRN IVP Nausea & Vomiting 06/26/18 14:00 07/16/18 13:59 Quetiapine Fumarate (SEROquel) 25 mg Q6H PRN ORAL For Anxiety 06/26/18 14:00 07/16/18 13:59 Vancomycin HCl (Firvanq) 125 mg FOUR TIMES A DAY NG 06/26/18 18:00 06/28/18 23:59 06/26/18 17:22 Laboratory Tests Test 06/26/18 04:30 06/26/18 17:20 White Blood Count 9.0 K/UL (4.8-10.8) Red Blood Count 3.47 M/UL (4.20-5.40) L Hemoglobin 7.7 G/DL (12.0-16.0) L Hematocrit 25.0 % (37.0-47.0) L Mean Corpuscular Volume 72 FL (80-99) L Mean Corpuscular Hemoglobin 22.3 PG (27.0-31.0) L Mean Corpuscular Hemoglobin Concent 30.9 G/DL (32.0-36.0) L Red Cell Distribution Width 18.2 % (11.6-14.8) H Platelet Count 216 K/UL (150-450) Mean Platelet Volume 7.8 FL (6.5-10.1) Neutrophils (%) (Auto) % (45.0-75.0) Lymphocytes (%) (Auto) % (20.0-45.0) Monocytes (%) (Auto) % (1.0-10.0) Eosinophils (%) (Auto) % (0.0-3.0) Basophils (%) (Auto) % (0.0-2.0) Differential Total Cells Counted 100 Neutrophils % (Manual) 74 % (45-75) Lymphocytes % (Manual) 22 % (20-45) Monocytes % (Manual) 2 % (1-10) Eosinophils % (Manual) 2 % (0-3) Basophils % (Manual) 0 % (0-2) Band Neutrophils 0 % (0-8) Platelet Estimate Adequate Platelet Morphology Normal Hypochromasia 2+ Anisocytosis 1+ Microcytosis 1+ Sodium Level 145 MMOL/L (136-145) Potassium Level 3.4 MMOL/L (3.5-5.1) L Chloride Level 105 MMOL/L (98-107) Carbon Dioxide Level 32 MMOL/L (21-32) Anion Gap 8 mmol/L (5-15) Blood Urea Nitrogen 85 mg/dL (7-18) H Creatinine 2.9 MG/DL (0.55-1.30) H Estimat Glomerular Filtration Rate mL/min (>60) Glucose Level 122 MG/DL (74-106) H Calcium Level 9.6 MG/DL (8.5-10.1) Total Bilirubin 0.2 MG/DL (0.2-1.0) Aspartate Amino Transf (AST/SGOT) 16 U/L (15-37) Alanine Aminotransferase (ALT/SGPT) 19 U/L (12-78) Alkaline Phosphatase 77 U/L (46-116) Pro-B-Type Natriuretic Peptide 1708 pg/mL (0-125) H Total Protein 6.4 G/DL (6.4-8.2) Albumin 2.4 G/DL (3.4-5.0) L Globulin 4.0 g/dL Albumin/Globulin Ratio 0.6 (1.0-2.7) L C-Reactive Protein, Quantitative 11.5 mg/dL (0.00-0.90) H Landy Lindsey DO Jun 26, 2018 18:42
--- NOTE | 2018-06-26 19:10 | NUR ---
TRANSFER TO FLOOR: Patient transferred to [facility]. Report given to MARGY Rosenbaum. Belongings and medications given to primary RN. Family informed of transfer.
--- NOTE | 2018-06-26 19:10 | Cardiology Progress Note ---
Assessment/Plan Assessment/Plan paroxysmal a fib, at present time in sinus rhythm Subjective Subjective The patient is on vent, she opens her eyes, but no interaction Objective Last 24 Hour Vital Signs Date Time Temp Pulse Resp B/P (MAP) Pulse Ox O2 Delivery O2 Flow Rate FiO2 06/26/18 18:00 74 18 124/44 (70) 98 06/26/18 17:00 78 23 142/50 (80) 96 06/26/18 16:49 76 16 35 06/26/18 16:00 Mechanical Ventilator Mechanical Ventilator 06/26/18 16:00 88 06/26/18 16:00 98.1 79 16 143/49 (80) 96 06/26/18 16:00 35 06/26/18 15:26 83 20 100 Mechanical Ventilator 35 06/26/18 15:16 77 16 97 Mechanical Ventilator 35 06/26/18 15:15 83 16 35 06/26/18 15:00 83 18 106/38 (60) 98 06/26/18 14:00 77 17 119/54 (75) 97 06/26/18 13:04 77 16 35 06/26/18 13:00 81 16 101/41 (61) 96 06/26/18 12:00 97.8 89 24 146/49 (81) 96 06/26/18 12:00 35 06/26/18 12:00 Mechanical Ventilator Mechanical Ventilator 06/26/18 12:00 93 06/26/18 11:10 Mechanical Ventilator 06/26/18 11:09 Mechanical Ventilator 06/26/18 11:00 84 17 124/45 (71) 99 06/26/18 10:43 85 16 35 06/26/18 10:00 92 22 145/47 (79) 96 06/26/18 09:00 98.6 85 16 131/46 (74) 95 06/26/18 08:45 90 16 35 06/26/18 08:04 98 157/55 06/26/18 08:00 98 06/26/18 08:00 35 06/26/18 08:00 Mechanical Ventilator Mechanical Ventilator 06/26/18 08:00 98 16 157/55 (89) 97 06/26/18 07:22 Mechanical Ventilator 06/26/18 07:19 Mechanical Ventilator 06/26/18 07:06 85 16 35 06/26/18 07:02 98.5 91 16 127/42 (70) 93 06/26/18 06:00 91 16 131/45 (73) 93 06/26/18 05:30 89 16 35 06/26/18 05:00 93 16 107/56 (73) 97 06/26/18 04:00 35 06/26/18 04:00 Mechanical Ventilator Mechanical Ventilator 06/26/18 04:00 100 06/26/18 04:00 91 22 167/60 (95) 94 06/26/18 03:38 Mechanical Ventilator 06/26/18 03:37 Mechanical Ventilator 06/26/18 03:30 86 17 35 06/26/18 03:00 87 17 130/49 (76) 93 06/26/18 02:00 84 21 155/57 (89) 97 06/26/18 01:30 88 17 35 06/26/18 01:00 83 20 142/54 (83) 97 06/26/18 00:00 98.5 90 18 134/52 (79) 97 06/26/18 00:00 81 06/26/18 00:00 Mechanical Ventilator Mechanical Ventilator 06/26/18 00:00 35 06/25/18 23:30 90 18 35 06/25/18 23:21 Mechanical Ventilator 06/25/18 23:21 Mechanical Ventilator 06/25/18 23:00 84 16 129/52 (77) 97 06/25/18 22:00 85 24 127/57 (80) 97 06/25/18 21:30 98 20 35 06/25/18 21:00 85 21 129/46 (73) 97 06/25/18 20:00 35 06/25/18 20:00 98.0 100 21 130/60 (83) 97 06/25/18 20:00 Mechanical Ventilator Mechanical Ventilator 06/25/18 20:00 100 06/25/18 19:30 100 20 35 General Appearance: on vent - trach EENT: PERRL/EOMI Neck: no JVD Rhythm: NSR Cardiovascular: regular rhythm Respiratory/Chest: no respiratory distress, no accessory muscle use, crackles/ rales Abdomen: soft Intake and Output 06/25/18 06/26/18 19:00 07:00 Intake Total 865 ml 780 ml Output Total 510 ml 460 ml Balance 355 ml 320 ml Free Water 330 ml 300 ml IV Total 55 ml Tube Feeding 480 ml 480 ml Output Urine Total 510 ml 460 ml Stool Total 0 ml # Bowel Movements 1 Laboratory Tests Test 06/26/18 04:30 06/26/18 17:20 White Blood Count 9.0 K/UL (4.8-10.8) Red Blood Count 3.47 M/UL (4.20-5.40) L Hemoglobin 7.7 G/DL (12.0-16.0) L Hematocrit 25.0 % (37.0-47.0) L Mean Corpuscular Volume 72 FL (80-99) L Mean Corpuscular Hemoglobin 22.3 PG (27.0-31.0) L Mean Corpuscular Hemoglobin Concent 30.9 G/DL (32.0-36.0) L Red Cell Distribution Width 18.2 % (11.6-14.8) H Platelet Count 216 K/UL (150-450) Mean Platelet Volume 7.8 FL (6.5-10.1) Neutrophils (%) (Auto) % (45.0-75.0) Lymphocytes (%) (Auto) % (20.0-45.0) Monocytes (%) (Auto) % (1.0-10.0) Eosinophils (%) (Auto) % (0.0-3.0) Basophils (%) (Auto) % (0.0-2.0) Differential Total Cells Counted 100 Neutrophils % (Manual) 74 % (45-75) Lymphocytes % (Manual) 22 % (20-45) Monocytes % (Manual) 2 % (1-10) Eosinophils % (Manual) 2 % (0-3) Basophils % (Manual) 0 % (0-2) Band Neutrophils 0 % (0-8) Platelet Estimate Adequate Platelet Morphology Normal Hypochromasia 2+ Anisocytosis 1+ Microcytosis 1+ Sodium Level 145 MMOL/L (136-145) Potassium Level 3.4 MMOL/L (3.5-5.1) L Chloride Level 105 MMOL/L (98-107) Carbon Dioxide Level 32 MMOL/L (21-32) Anion Gap 8 mmol/L (5-15) Blood Urea Nitrogen 85 mg/dL (7-18) H Creatinine 2.9 MG/DL (0.55-1.30) H Estimat Glomerular Filtration Rate mL/min (>60) Glucose Level 122 MG/DL (74-106) H Calcium Level 9.6 MG/DL (8.5-10.1) Total Bilirubin 0.2 MG/DL (0.2-1.0) Aspartate Amino Transf (AST/SGOT) 16 U/L (15-37) Alanine Aminotransferase (ALT/SGPT) 19 U/L (12-78) Alkaline Phosphatase 77 U/L (46-116) Pro-B-Type Natriuretic Peptide 1708 pg/mL (0-125) H Total Protein 6.4 G/DL (6.4-8.2) Albumin 2.4 G/DL (3.4-5.0) L Globulin 4.0 g/dL Albumin/Globulin Ratio 0.6 (1.0-2.7) L C-Reactive Protein, Quantitative 11.5 mg/dL (0.00-0.90) H Viry Boland MD Jun 26, 2018 19:10
--- NOTE | 2018-06-26 19:30 | NUR ---
NURSE NOTES: Admitted a transfer to ICU Awake,good eye contact does'nt follows command on a VENT.TRACHE. See settings,Lungs Few scatt. Rh.Diminished BS at Bases.P.Ox.98%.Suctioned Tk,Beige sec.NS Lavaged.See V/S.Scope SR rare ectopy.Pos. chg.GT-Feeding in progress.F/Cath.Patent.See I/O.On Bila.soft wrist restraints prev.self injury.PICC (R)upper arm.
[2018-06-26] MEDS: Dyna-Hex 2% Top Sol 2oz TOPIC SCH (19:39)
[2018-06-26] MEDS ORDERED: Heparin 5000 units/ml inj SUBQ SCH (21:00)
--- NOTE | 2018-06-26 22:04 | General Progress Note ---
Assessment/Plan Status: progressing Assessment/Plan This is an 87-year-old female admitted with chronic obstructive pulmonary disease exacerbation, right lower lobe infiltrate/pneumonia with altered mental status and acute kidney injury. The patient will be admitted to [facility] with the following medical problems. 1. Chronic obstructive pulmonary disease exacerbation and pneumonia. The patient has been seen by Pulmonary. Infectious Disease has been consulted, pancultured. IV antibiotics per ID. Continue with BiPAP and suction p.r.n. Transition to Venturi-mask when stable. 2. Acute kidney injury. We will monitor I's and O's, gentle intravenous fluids. Repeat a BMP in a.m. Consider Nephrology consult. 3. History of chronic atrial fibrillation. Continue with amiodarone. The patient is in sinus rhythm at this time. 4. History of hypertension. Continue with amlodipine and hold for systolic blood pressure less than 110. 5. Altered mental status, most likely from above conditions. We will keep n.p.o. except for medications and start IV fluids. 6. DVT prophylaxis with heparin subcutaneous and SCDs. 7. The patient is Full Code per policy. We will discuss with the family. 8. hypokalmia 9. Anemia 10. CHf acute on chronic 11. leucocytosis 12. ARF? ATN 13. C dif positive 14. hyperkalemia 15. pleural effusion 16. S/p Tracheostomy 06/22/18 Plan: - continue respiratory support - aggressive pulmonary suction - HD on hold as patient putting out better urine and createnine is improving - antibiotics per ID - on oral vanco - am labs - weaning off vent per pulmonary - Gi prophylaxis with protonix iv 40 mg daily - s/p Kayexalate - norvasc added for better BP cotrol - s/p PEG discussed with nurse Contact isolation for C dif now in [facility] will need LTAC possible [facility] Subjective Date patient seen: Jun 26, 2018 ROS Limited/Unobtainable: Yes Allergies: Coded Allergies: Mushroom (Verified Allergy, Severe, 05/28/18) MORPHINE (Unverified Allergy, Intermediate, Itching, 01/04/15) PENICILLINS (Unverified Allergy, Intermediate, Hives, 06/25/18) Tolerates cephalosporins and carbapenems CELECOXIB (Verified Allergy, Mild, 01/15/09) Subjective patient is now reintubated, in renal failure, HD on hold as making better urine , C dif positive on ngt vanco, s/p tracheostomy. s/p PEG, moved to [facility] on Objective Last 24 Hour Vital Signs Date Time Temp Pulse Resp B/P (MAP) Pulse Ox O2 Delivery O2 Flow Rate FiO2 06/26/18 21:22 80 16 35 06/26/18 21:00 98.5 90 19 148/48 (81) 98 06/26/18 20:00 35 06/26/18 20:00 Mechanical Ventilator 06/26/18 20:00 90 06/26/18 20:00 Mechanical Ventilator Mechanical Ventilator 06/26/18 20:00 98.5 90 17 158/53 (88) 98 06/26/18 19:30 84 16 35 06/26/18 19:30 Mechanical Ventilator 06/26/18 18:00 74 18 124/44 (70) 98 06/26/18 17:00 78 23 142/50 (80) 96 06/26/18 16:49 76 16 35 06/26/18 16:00 Mechanical Ventilator Mechanical Ventilator 06/26/18 16:00 88 06/26/18 16:00 98.1 79 16 143/49 (80) 96 06/26/18 16:00 35 06/26/18 15:26 83 20 100 Mechanical Ventilator 35 06/26/18 15:16 77 16 97 Mechanical Ventilator 35 06/26/18 15:15 83 16 35 06/26/18 15:00 83 18 106/38 (60) 98 06/26/18 14:00 77 17 119/54 (75) 97 06/26/18 13:04 77 16 35 06/26/18 13:00 81 16 101/41 (61) 96 06/26/18 12:00 97.8 89 24 146/49 (81) 96 06/26/18 12:00 35 06/26/18 12:00 Mechanical Ventilator Mechanical Ventilator 06/26/18 12:00 93 06/26/18 11:10 Mechanical Ventilator 06/26/18 11:09 Mechanical Ventilator 06/26/18 11:00 84 17 124/45 (71) 99 06/26/18 10:43 85 16 35 06/26/18 10:00 92 22 145/47 (79) 96 06/26/18 09:00 98.6 85 16 131/46 (74) 95 06/26/18 08:45 90 16 35 06/26/18 08:04 98 157/55 06/26/18 08:00 98 06/26/18 08:00 35 06/26/18 08:00 Mechanical Ventilator Mechanical Ventilator 06/26/18 08:00 98 16 157/55 (89) 97 06/26/18 07:22 Mechanical Ventilator 06/26/18 07:19 Mechanical Ventilator 06/26/18 07:06 85 16 35 06/26/18 07:02 98.5 91 16 127/42 (70) 93 06/26/18 06:00 91 16 131/45 (73) 93 06/26/18 05:30 89 16 35 06/26/18 05:00 93 16 107/56 (73) 97 06/26/18 04:00 35 06/26/18 04:00 Mechanical Ventilator Mechanical Ventilator 06/26/18 04:00 100 06/26/18 04:00 91 22 167/60 (95) 94 06/26/18 03:38 Mechanical Ventilator 06/26/18 03:37 Mechanical Ventilator 06/26/18 03:30 86 17 35 06/26/18 03:00 87 17 130/49 (76) 93 06/26/18 02:00 84 21 155/57 (89) 97 06/26/18 01:30 88 17 35 06/26/18 01:00 83 20 142/54 (83) 97 06/26/18 00:00 98.5 90 18 134/52 (79) 97 06/26/18 00:00 81 06/26/18 00:00 Mechanical Ventilator Mechanical Ventilator 06/26/18 00:00 35 06/25/18 23:30 90 18 35 06/25/18 23:21 Mechanical Ventilator 06/25/18 23:21 Mechanical Ventilator 06/25/18 23:00 84 16 129/52 (77) 97 Intake and Output 06/25/18 06/26/18 19:00 07:00 Intake Total 865 ml 780 ml Output Total 510 ml 460 ml Balance 355 ml 320 ml Free Water 330 ml 300 ml IV Total 55 ml Tube Feeding 480 ml 480 ml Output Urine Total 510 ml 460 ml Stool Total 0 ml # Bowel Movements 1 Laboratory Tests 06/26/18 04:30: White Blood Count 9.0, Red Blood Count 3.47L, Hemoglobin 7.7L, Hematocrit 25.0L , Mean Corpuscular Volume 72L, Mean Corpuscular Hemoglobin 22.3L, Mean Corpuscular Hemoglobin Concent 30.9L, Red Cell Distribution Width 18.2H, Platelet Count 216, Mean Platelet Volume 7.8, Neutrophils (%) (Auto) , Lymphocytes (%) (Auto) , Monocytes (%) (Auto) , Eosinophils (%) (Auto) , Basophils (%) (Auto) , Differential Total Cells Counted 100, Neutrophils % ( Manual) 74, Lymphocytes % (Manual) 22, Monocytes % (Manual) 2, Eosinophils % ( Manual) 2, Basophils % (Manual) 0, Band Neutrophils 0, Platelet Estimate Adequate, Platelet Morphology Normal, Hypochromasia 2+, Anisocytosis 1+, Microcytosis 1+, Sodium Level 145, Potassium Level 3.4L, Chloride Level 105, Carbon Dioxide Level 32, Anion Gap 8, Blood Urea Nitrogen 85H, Creatinine 2.9H, Estimat Glomerular Filtration Rate , Glucose Level 122H, Calcium Level 9.6, Total Bilirubin 0.2, Aspartate Amino Transf (AST/SGOT) 16, Alanine Aminotransferase (ALT/SGPT) 19, Alkaline Phosphatase 77, Pro-B-Type Natriuretic Peptide 1708H, Total Protein 6.4, Albumin 2.4L, Globulin 4.0, Albumin/Globulin Ratio 0.6L 06/26/18 17:20: C-Reactive Protein, Quantitative 11.5H Height (Feet): 5 Height (Inches): 4.00 Weight (Pounds): 123 General Appearance: no apparent distress, alert EENT: PERRL/EOMI, pharynx normal Neck: non-tender, supple Cardiovascular: normal rate, regular rhythm, no gallop/murmur, no JVD Respiratory/Chest: chest wall non-tender, normal breath sounds, no respiratory distress Abdomen: non tender, soft, no mass Extremities: non-tender, normal inspection, no calf tenderness Edema: no edema noted Arm (L), no edema noted Arm (R), no edema noted Leg (L), no edema noted Leg (R), no edema noted Pedal (L), no edema noted Pedal (R), no edema noted Generalized Neurologic: responsive Skin: warm/dry Lymphatic: normal anterior cervical (L), normal anterior cervical (R), normal posterior cervical (L), normal posterior cervical (R), normal submandibular (L) , normal submandibular (R), normal supraclavicular (L), normal supraclavicular ( R), normal axillary (L), normal axillary (R), normal inguinal (L), normal inguinal (R), normal other Cruz Valderrama MD Jun 26, 2018 22:04
[2018-06-27] VITALS: BP 150/59
--- NOTE | 2018-06-27 00:15 | NUR ---
NURSE NOTES: Pos. chg.Suctioned.Monica.Vent settings P.Ox.96-98%.Neuro status same.Gt-Feeding remain in progress.No Distress.
[2018-06-27 04:00] VITALS: BP 140/61
[2018-06-27] MEDS: Albuterol/Ipratropium 3ml neb HHN PRN ×5 (04:17→20:21)
--- NOTE | 2018-06-27 04:20 | NUR ---
NURSE NOTES: Blood drawn for cbc/cmp/bnp etc.spec.to Lab.Janki Durbin chg.trache care done,Gt-site cleansed niharika young.Pos.to comfort.Suctioned.
[2018-06-27 04:45] LABS: BASOPHILS % (AUTO) 0.6 % (0.0-2.0); EOSINOPHILS % (AUTO) 4.2 % (0.0-3.0); HEMATOCRIT 27.2 % (37.0-47.0); HEMOGLOBIN 8.5 G/DL (12.0-16.0); LYMPHOCYTES % (AUTO) 21.5 % (20.0-45.0); MEAN CORPUSCULAR VOLUME 72 FL (80-99); MONOCYTES % (AUTO) 5.7 % (1.0-10.0); PLATELET COUNT 219 K/UL (150-450); RED BLOOD COUNT 3.76 M/UL (4.20-5.40); RED CELL DISTRIBUTION WIDTH 17.6 % (11.6-14.8); WHITE BLOOD COUNT 11.4 K/UL (4.8-10.8)
[2018-06-27 06:03] LABS: ALANINE AMINOTRANSFERASE 14 U/L (12-78); ALBUMIN 2.4 G/DL (3.4-5.0); ALBUMIN/GLOBULIN RATIO 0.6 (1.0-2.7); ALKALINE PHOSPHATASE 93 U/L (46-116); ANION GAP 8 mmol/L (5-15); ASPARTATE AMINO TRANSFERASE 16 U/L (15-37); BILIRUBIN,TOTAL 0.2 MG/DL (0.2-1.0); BLOOD UREA NITROGEN 88 mg/dL (7-18); CALCIUM 9.9 MG/DL (8.5-10.1); CARBON DIOXIDE 33 MMOL/L (21-32); CHLORIDE 105 MMOL/L (98-107); CREATININE 2.7 MG/DL (0.55-1.30); FERRITIN 366 NG/ML (8-388); PHOSPHORUS 3.8 MG/DL (2.5-4.9); POTASSIUM 4.3 MMOL/L (3.5-5.1); SODIUM 146 MMOL/L (136-145)
[2018-06-27 06:49] LABS: % IRON SATURATION 11 % (15-50); IRON 15 ug/dL (50-175); TOTAL IRON BINDING CAPACITY 141 ug/dL (250-450)
--- NOTE | 2018-06-27 07:26 | NUR ---
HAND-OFF: Report given to MARGY VERONICA.
--- NOTE | 2018-06-27 07:40 | NUR ---
NURSE NOTES: Received the patient from MARGY Rosenbaum. Patient awake, opens eyes spontaneously, does not follow commands. trach Shiley 8.0. No bleeding noted. Trach to vent, settings: AC16, TV400, FiO2 30%, PEEP 5, O2 sat 99%. No acute distress noted. Pt noted with G-tube,dressing dry and intact. pt on Nepro @40ml/hr. SR noted on the monitor. MILY double lumen PICC dressing i/c/d. Sinclair cath intact, yellow urine by gravity. On bilateral wrist soft restraints, skin intact and pulses present. Pt on P200 mattress. Bed in lowest position, locked, bed alarm on. Will continue to monitor.
[2018-06-27 08:00] VITALS: BP 161/76
[2018-06-27] MEDS: Lactobacillus-GG tablet GT SCH ×2 (08:21→17:04)
[2018-06-27] MEDS: Vancomycin oral 125mg/2.5ml NG SCH ×4 (08:28→21:08)
[2018-06-27] MEDS ORDERED: Pantoprazole Inj IVP SCH (09:00)
--- NOTE | 2018-06-27 10:00 | NUR ---
NURSE NOTES: changed position. Suctioned. vs stable. 02sat.96-98%. Neuro status unchanged .Gtube patent. No Distress noted.
[2018-06-27] MEDS ORDERED: 1/2 NS 1000ml IV ONE (11:00)
[2018-06-27] MEDS ORDERED: NS 275ml ONE (11:00)
[2018-06-27 12:00] VITALS: BP 138/68
--- NOTE | 2018-06-27 12:44 | Infectious Diseases Prog Note ---
Assessment/Plan Assessment/Plan 87 yo feamle with PMHx of COPD, HTN, and A.fib sent to the ED from her nuring home for SOB. Sepsis;improving - Likely PNA 06/21 CXR: Slightly increased right lung opacity, suspect increasing pleural fluid.Increased retrocardiac consolidation 06/17 CXR: Increasing right lung opacity, likely representing decreasing pleural fluid but may also represent increasing parenchymal consolidation 06/15 CXR: Increasing opacification right hemithorax, likely reflecting increasing pleural fluid but may also reflect increasing pulmonary parenchymal consolidation 06/14 CXR: Diffuse right lung hazy opacity appears similar to the prior exam. 06/12 CXR: : Hazy opacification of the right hemithorax, likely reflecting pleural fluid, is unchanged. 05/28/18 CXR with atalectasis vs consolidation in the right side. 06/01/18 CXR - Extensive right hemithorax opacification UA (-) sputum cx 06/15: MRSA (likely a colonizer at this point), ESBL E.coli Sputum Cx 05/28/18 - MRSA (Inf Neg) Urine legionella (-) Acute respiratory failure s/p intubation 06/16 Cdiff colitis -06/19 Cdif toxin a/b + R lung collapse: -06/16 CXR: Complete opacification of the right hemithorax. Probably due to complete atelectasis of the right lung, with evidence of abrupt occlusion of the rightmainstem bronchus. Given findings on prior chest radiographs, there is probablysignificant component of pleural effusion as well. Positive blood Cx - Likely contaminant BCx 05/28/18 - CoNS BCX 05/30/18 - NGTD Leukocytosis , recurrent mild Fever, SP COPD CAD A. fib s/p trach 06/23 s/p PEG 06/24 PLAN -Continue PO Vancomycin #9/10 for Cdiff -06/26 SP Ertapenem #6 -06/20 SP Meropenem #5 -06/17 SP IV Vancomycin #21 -06/16 SP Cefepime #20 - Monitor CBC and Temps -f/u cx -CBC, CMP am We will continue to follow Ms. Nowak during this hospitalization. Subjective Allergies: Coded Allergies: Mushroom (Verified Allergy, Severe, 05/28/18) MORPHINE (Unverified Allergy, Intermediate, Itching, 01/04/15) PENICILLINS (Unverified Allergy, Intermediate, Hives, 06/25/18) Tolerates cephalosporins and carbapenems CELECOXIB (Verified Allergy, Mild, 01/15/09) Subjective afebrile mild leucocytosis Objective Vital Signs Last 24 Hour Vital Signs Date Time Temp Pulse Resp B/P (MAP) Pulse Ox O2 Delivery O2 Flow Rate FiO2 06/27/18 11:28 85 16 100 Mechanical Ventilator 35 06/27/18 11:12 85 16 99 Mechanical Ventilator 35 06/27/18 10:47 92 16 35 06/27/18 09:41 91 18 35 06/27/18 09:00 35 06/27/18 08:22 96 161/76 06/27/18 08:00 Mechanical Ventilator Mechanical Ventilator 06/27/18 08:00 98.2 96 16 161/76 (104) 96 06/27/18 07:40 95 19 100 Mechanical Ventilator 35 06/27/18 07:16 100 23 97 Mechanical Ventilator 35 06/27/18 07:14 98 20 35 06/27/18 05:30 79 16 35 06/27/18 04:00 35 06/27/18 04:00 80 16 100 Mechanical Ventilator 35 06/27/18 04:00 Mechanical Ventilator Mechanical Ventilator 06/27/18 04:00 80 06/27/18 04:00 98.6 79 16 140/61 (87) 96 06/27/18 03:50 78 16 97 Mechanical Ventilator 35 06/27/18 03:30 81 17 35 06/27/18 01:28 80 16 Mechanical Ventilator 06/27/18 01:27 80 16 35 06/27/18 00:00 Mechanical Ventilator Mechanical Ventilator 06/27/18 00:00 78 06/27/18 00:00 35 06/27/18 00:00 99.0 79 18 150/59 (89) 96 06/26/18 23:57 84 17 99 Mechanical Ventilator 35 06/26/18 23:45 82 16 97 Mechanical Ventilator 35 06/26/18 23:00 82 16 35 06/26/18 21:22 80 16 35 06/26/18 21:00 98.5 90 19 148/48 (81) 98 06/26/18 20:00 35 06/26/18 20:00 Mechanical Ventilator 06/26/18 20:00 90 06/26/18 20:00 Mechanical Ventilator Mechanical Ventilator 06/26/18 20:00 98.5 90 17 158/53 (88) 98 06/26/18 19:30 84 16 35 06/26/18 19:30 Mechanical Ventilator 06/26/18 18:00 74 18 124/44 (70) 98 06/26/18 17:00 78 23 142/50 (80) 96 06/26/18 16:49 76 16 35 06/26/18 16:00 Mechanical Ventilator Mechanical Ventilator 06/26/18 16:00 88 06/26/18 16:00 98.1 79 16 143/49 (80) 96 06/26/18 16:00 35 06/26/18 15:26 83 20 100 Mechanical Ventilator 35 06/26/18 15:16 77 16 97 Mechanical Ventilator 35 06/26/18 15:15 83 16 35 06/26/18 15:00 83 18 106/38 (60) 98 06/26/18 14:00 77 17 119/54 (75) 97 06/26/18 13:04 77 16 35 06/26/18 13:00 81 16 101/41 (61) 96 Height (Feet): 5 Height (Inches): 4.00 Weight (Pounds): 120 Objective General Appearance: no apparent distress, other - on intubated Neck: supple Cardiovascular: normal rate Respiratory/Chest: lungs clear Abdomen: normal bowel sounds, non tender, soft Extremities: trace edema Laboratory Tests Test 06/26/18 17:20 06/27/18 03:05 C-Reactive Protein, Quantitative 11.5 mg/dL (0.00-0.90) H White Blood Count 11.4 K/UL (4.8-10.8) H Red Blood Count 3.76 M/UL (4.20-5.40) L Hemoglobin 8.5 G/DL (12.0-16.0) L Hematocrit 27.2 % (37.0-47.0) L Mean Corpuscular Volume 72 FL (80-99) L Mean Corpuscular Hemoglobin 22.5 PG (27.0-31.0) L Mean Corpuscular Hemoglobin Concent 31.2 G/DL (32.0-36.0) L Red Cell Distribution Width 17.6 % (11.6-14.8) H Platelet Count 219 K/UL (150-450) Mean Platelet Volume 6.7 FL (6.5-10.1) Neutrophils (%) (Auto) 68.0 % (45.0-75.0) Lymphocytes (%) (Auto) 21.5 % (20.0-45.0) Monocytes (%) (Auto) 5.7 % (1.0-10.0) Eosinophils (%) (Auto) 4.2 % (0.0-3.0) H Basophils (%) (Auto) 0.6 % (0.0-2.0) Sodium Level 146 MMOL/L (136-145) H Potassium Level 4.3 MMOL/L (3.5-5.1) Chloride Level 105 MMOL/L (98-107) Carbon Dioxide Level 33 MMOL/L (21-32) H Anion Gap 8 mmol/L (5-15) Blood Urea Nitrogen 88 mg/dL (7-18) H Creatinine 2.7 MG/DL (0.55-1.30) H Estimat Glomerular Filtration Rate mL/min (>60) Glucose Level 137 MG/DL (74-106) H Uric Acid 8.3 MG/DL (2.6-7.2) H Calcium Level 9.9 MG/DL (8.5-10.1) Phosphorus Level 3.8 MG/DL (2.5-4.9) Magnesium Level 2.9 MG/DL (1.8-2.4) H Iron Level 15 ug/dL (50-175) L Total Iron Binding Capacity 141 ug/dL (250-450) L Percent Iron Saturation 11 % (15-50) L Unsaturated Iron Binding 126 ug/dL (112-346) Ferritin 366 NG/ML (8-388) Total Bilirubin 0.2 MG/DL (0.2-1.0) Aspartate Amino Transf (AST/SGOT) 16 U/L (15-37) Alanine Aminotransferase (ALT/SGPT) 14 U/L (12-78) Alkaline Phosphatase 93 U/L (46-116) Pro-B-Type Natriuretic Peptide 1421 pg/mL (0-125) H Total Protein 6.7 G/DL (6.4-8.2) Albumin 2.4 G/DL (3.4-5.0) L Globulin 4.3 g/dL Albumin/Globulin Ratio 0.6 (1.0-2.7) L Vitamin B12 Level 1847 PG/ML (193-986) H Folate 15.8 NG/ML (8.6-58.9) Random Vancomycin Level 12.6 ug/mL Current Medications Medications (Trade) Dose Ordered Sig/Ann Route PRN Reason Start Time Stop Time Status Last Admin Dose Admin Acetaminophen (Tylenol) 650 mg Q4H PRN ORAL Mild Pain/Temp > 100.5 06/26/18 15:30 07/16/18 19:18 Acetaminophen/ Hydrocodone Bitart (Castana 5/325) 1 tab Q6H PRN ORAL Moderate Pain (Pain Scale 4-6) 06/26/18 14:00 07/01/18 13:59 Acetylcysteine (Mucomyst) 100 mg Q4HRT HHN 06/26/18 15:00 07/09/18 10:59 06/27/18 11:12 Albuterol/ Ipratropium (Albuterol/ Ipratropium) 3 ml Q4H PRN HHN Shortness of Breath 06/26/18 15:30 07/01/18 11:29 06/27/18 11:13 Amiodarone HCl (Cordarone) 200 mg DAILY@1800 GT 06/26/18 18:00 07/24/18 17:59 06/26/18 17:22 Amlodipine Besylate (Norvasc) 2.5 mg DAILY ORAL 06/27/18 09:00 07/25/18 08:59 06/27/18 08:22 Chlorhexidine Gluconate (Myra-Hex 2%) 1 applic DAILY@2000 TOPIC 06/26/18 20:00 07/02/18 19:59 06/26/18 19:39 Haloperidol Lactate (Haldol) 5 mg Q6H PRN IM Agitation 06/26/18 14:00 07/16/18 13:59 Lactobacillus Acidophilus (Culturelle) 1 tab TWICE A DAY GT 06/26/18 18:00 07/22/18 17:59 06/27/18 08:21 Lansoprazole (Prevacid) 30 mg BID GT 06/26/18 18:00 07/26/18 17:59 06/27/18 08:20 Metoprolol Tartrate (Lopressor) 5 mg Q6H PRN IVP HR > 125 06/26/18 18:00 07/16/18 17:59 Nitroglycerin (Ntg) 0.4 mg Q5M PRN SL Prn Chest Pain 06/26/18 13:45 06/27/18 13:29 Ondansetron HCl (Zofran) 4 mg Q6H PRN IVP Nausea & Vomiting 06/26/18 14:00 07/16/18 13:59 Quetiapine Fumarate (SEROquel) 25 mg Q6H PRN ORAL For Anxiety 06/26/18 14:00 07/16/18 13:59 Vancomycin HCl (Firvanq) 125 mg FOUR TIMES A DAY NG 06/26/18 18:00 06/28/18 23:59 06/27/18 08:28 Natty Hernandes M.D. Jun 27, 2018 12:44
--- NOTE | 2018-06-27 12:50 | Nephrology Progress Note ---
Assessment/Plan Problem List: (1) Acute renal failure Assessment: Cr lowering (2) Anuria (3) Acute respiratory failure Assessment: on vent (4) Dementia (5) Afib Assessment Cr lowering Urine out put rising Cr lowering other conditions: (1) Acute respiratory failure (2) Aspiration pneumonia (3) Acute encephalopathy (4) Pleural effusion (5) COPD (chronic obstructive pulmonary disease) (6) CAD (coronary artery disease) (7) Dementia Plan Mag So4 ordered Now trached and Pegged Cr lowering- Urine out put higher monitor vanco level family agree with HD . but no need for HD at this time K and Phos and Mag as needed Anemia porter Adjust BP meds fu Lytes Gastric support per orders Subjective ROS Limited/Unobtainable: Yes Objective Objective Last 24 Hour Vital Signs Date Time Temp Pulse Resp B/P (MAP) Pulse Ox O2 Delivery O2 Flow Rate FiO2 06/27/18 11:28 85 16 100 Mechanical Ventilator 35 06/27/18 11:12 85 16 99 Mechanical Ventilator 35 06/27/18 10:47 92 16 35 06/27/18 09:41 91 18 35 06/27/18 09:00 35 06/27/18 08:22 96 161/76 06/27/18 08:00 Mechanical Ventilator Mechanical Ventilator 06/27/18 08:00 98.2 96 16 161/76 (104) 96 06/27/18 07:40 95 19 100 Mechanical Ventilator 35 06/27/18 07:16 100 23 97 Mechanical Ventilator 35 06/27/18 07:14 98 20 35 06/27/18 05:30 79 16 35 06/27/18 04:00 35 06/27/18 04:00 80 16 100 Mechanical Ventilator 35 06/27/18 04:00 Mechanical Ventilator Mechanical Ventilator 06/27/18 04:00 80 06/27/18 04:00 98.6 79 16 140/61 (87) 96 06/27/18 03:50 78 16 97 Mechanical Ventilator 35 06/27/18 03:30 81 17 35 06/27/18 01:28 80 16 Mechanical Ventilator 06/27/18 01:27 80 16 35 06/27/18 00:00 Mechanical Ventilator Mechanical Ventilator 06/27/18 00:00 78 06/27/18 00:00 35 06/27/18 00:00 99.0 79 18 150/59 (89) 96 06/26/18 23:57 84 17 99 Mechanical Ventilator 35 06/26/18 23:45 82 16 97 Mechanical Ventilator 35 06/26/18 23:00 82 16 35 06/26/18 21:22 80 16 35 06/26/18 21:00 98.5 90 19 148/48 (81) 98 06/26/18 20:00 35 06/26/18 20:00 Mechanical Ventilator 06/26/18 20:00 90 06/26/18 20:00 Mechanical Ventilator Mechanical Ventilator 06/26/18 20:00 98.5 90 17 158/53 (88) 98 06/26/18 19:30 84 16 35 06/26/18 19:30 Mechanical Ventilator 06/26/18 18:00 74 18 124/44 (70) 98 06/26/18 17:00 78 23 142/50 (80) 96 06/26/18 16:49 76 16 35 06/26/18 16:00 Mechanical Ventilator Mechanical Ventilator 06/26/18 16:00 88 06/26/18 16:00 98.1 79 16 143/49 (80) 96 06/26/18 16:00 35 06/26/18 15:26 83 20 100 Mechanical Ventilator 35 06/26/18 15:16 77 16 97 Mechanical Ventilator 35 06/26/18 15:15 83 16 35 06/26/18 15:00 83 18 106/38 (60) 98 06/26/18 14:00 77 17 119/54 (75) 97 06/26/18 13:04 77 16 35 06/26/18 13:00 81 16 101/41 (61) 96 Intake and Output 06/26/18 06/27/18 18:59 06:59 Intake Total 1010 ml 630 ml Output Total 575 ml 525 ml Balance 435 ml 105 ml Free Water 380 ml 150 ml IV Total 150 ml 0 ml Tube Feeding 480 ml 480 ml Output Urine Total 515 ml 525 ml Stool Total 60 ml # Bowel Movements 1 Laboratory Tests 06/26/18 17:20: C-Reactive Protein, Quantitative 11.5H 06/27/18 03:05: White Blood Count 11.4H, Red Blood Count 3.76L, Hemoglobin 8.5L, Hematocrit 27.2L, Mean Corpuscular Volume 72L, Mean Corpuscular Hemoglobin 22.5L, Mean Corpuscular Hemoglobin Concent 31.2L, Red Cell Distribution Width 17.6H, Platelet Count 219, Mean Platelet Volume 6.7, Neutrophils (%) (Auto) 68.0, Lymphocytes (%) (Auto) 21.5, Monocytes (%) (Auto) 5.7, Eosinophils (%) (Auto) 4.2H, Basophils (%) (Auto) 0.6, Sodium Level 146H, Potassium Level 4.3, Chloride Level 105, Carbon Dioxide Level 33H, Anion Gap 8, Blood Urea Nitrogen 88H, Creatinine 2.7H, Estimat Glomerular Filtration Rate , Glucose Level 137H, Uric Acid 8.3H, Calcium Level 9.9, Phosphorus Level 3.8, Magnesium Level 2.9H, Iron Level 15L, Total Iron Binding Capacity 141L, Percent Iron Saturation 11L, Unsaturated Iron Binding 126, Ferritin 366, Total Bilirubin 0.2, Aspartate Amino Transf (AST/SGOT) 16, Alanine Aminotransferase (ALT/SGPT) 14, Alkaline Phosphatase 93, Pro-B-Type Natriuretic Peptide 1421H, Total Protein 6.7, Albumin 2.4L, Globulin 4.3, Albumin/Globulin Ratio 0.6L, Vitamin B12 Level 1847H , Folate 15.8, Random Vancomycin Level 12.6 Height (Feet): 5 Height (Inches): 4.00 Weight (Pounds): 120 EENT: other - trach Cardiovascular: tachycardia Respiratory/Chest: decreased breath sounds Abdomen: distended Objective no change Kendrick Jimenez MD Jun 27, 2018 12:50
--- NOTE | 2018-06-27 12:50 | NUR ---
NURSE NOTES: md velasquez here to see pt. will place own orders
--- NOTE | 2018-06-27 13:00 | NUR ---
NURSE NOTES: md nichols here to see pt.
[2018-06-27 16:00] VITALS: BP 148/70
--- NOTE | 2018-06-27 16:00 | NUR ---
NURSE NOTES: Patient resting in bed comfortably. no distress noted. No s/sx of pain at this time. Oral care and grewal care provided.
--- NOTE | 2018-06-27 16:18 | Pulmonology Progress Note ---
Assessment/Plan Assessment/Plan Problem List: 1. Acute on chronic hypercapnic respiratory failure -intubated 06/02; extubated 06/10 -reintubated 06/17 -trach 06/23 carmelinaley 8 2. R lung collapse, mucous plugging - resolved 3. Pulmonary edema 4. chronic obstructive asthma 5. Pneumonia 6. Hx afib 7. MRSA pna, recurrent fever and increased leukocytosis 8. ESBL E.coli pna 9. C.diff colitis 10. Pleural effusion Plan: -cont mechanical ventilatory support -check ABG -check CXR -weaning trials as tolerated -Trach placement done -aggressive pulmonary hygiene with duonebs/mucomyst/suctioning q4 -chest PT R lung -monitor volumes -monitor renal function -abx per ID -PEG done d/c planning LTACH Subjective ROS Limited/Unobtainable: Yes Interval Events: Transferred to [facility]. Remains on vent. Seems calm but altered Allergies: Coded Allergies: Mushroom (Verified Allergy, Severe, 05/28/18) MORPHINE (Unverified Allergy, Intermediate, Itching, 01/04/15) PENICILLINS (Unverified Allergy, Intermediate, Hives, 06/25/18) Tolerates cephalosporins and carbapenems CELECOXIB (Verified Allergy, Mild, 01/15/09) Objective Last 24 Hour Vital Signs Date Time Temp Pulse Resp B/P (MAP) Pulse Ox O2 Delivery O2 Flow Rate FiO2 06/27/18 15:58 97 17 97 Mechanical Ventilator 35 06/27/18 15:57 97 18 35 06/27/18 13:47 94 18 35 06/27/18 12:00 35 06/27/18 12:00 Mechanical Ventilator Mechanical Ventilator 06/27/18 12:00 93 06/27/18 12:00 97.7 86 16 138/68 (91) 95 06/27/18 11:28 85 16 100 Mechanical Ventilator 35 06/27/18 11:12 85 16 99 Mechanical Ventilator 35 06/27/18 10:47 92 16 35 06/27/18 09:41 91 18 35 06/27/18 09:00 35 06/27/18 08:22 96 161/76 06/27/18 08:00 80 06/27/18 08:00 Mechanical Ventilator Mechanical Ventilator 06/27/18 08:00 98.2 96 16 161/76 (104) 96 06/27/18 07:40 95 19 100 Mechanical Ventilator 35 06/27/18 07:16 100 23 97 Mechanical Ventilator 35 06/27/18 07:14 98 20 35 06/27/18 05:30 79 16 35 06/27/18 04:00 35 06/27/18 04:00 80 16 100 Mechanical Ventilator 35 06/27/18 04:00 Mechanical Ventilator Mechanical Ventilator 06/27/18 04:00 80 06/27/18 04:00 98.6 79 16 140/61 (87) 96 06/27/18 03:50 78 16 97 Mechanical Ventilator 35 06/27/18 03:30 81 17 35 06/27/18 01:28 80 16 Mechanical Ventilator 06/27/18 01:27 80 16 35 06/27/18 00:00 Mechanical Ventilator Mechanical Ventilator 06/27/18 00:00 78 06/27/18 00:00 35 06/27/18 00:00 99.0 79 18 150/59 (89) 96 06/26/18 23:57 84 17 99 Mechanical Ventilator 35 06/26/18 23:45 82 16 97 Mechanical Ventilator 35 06/26/18 23:00 82 16 35 06/26/18 21:22 80 16 35 06/26/18 21:00 98.5 90 19 148/48 (81) 98 06/26/18 20:00 35 06/26/18 20:00 Mechanical Ventilator 06/26/18 20:00 90 06/26/18 20:00 Mechanical Ventilator Mechanical Ventilator 06/26/18 20:00 98.5 90 17 158/53 (88) 98 06/26/18 19:30 84 16 35 06/26/18 19:30 Mechanical Ventilator 06/26/18 18:00 74 18 124/44 (70) 98 06/26/18 17:00 78 23 142/50 (80) 96 06/26/18 16:49 76 16 35 Intake and Output 06/26/18 06/27/18 18:59 06:59 Intake Total 1010 ml 630 ml Output Total 575 ml 525 ml Balance 435 ml 105 ml Free Water 380 ml 150 ml IV Total 150 ml 0 ml Tube Feeding 480 ml 480 ml Output Urine Total 515 ml 525 ml Stool Total 60 ml # Bowel Movements 1 General Appearance: WD/WN, no acute distress HEENT: normocephalic, atraumatic, mucous membranes moist Respiratory/Chest: decreased breath sounds Cardiovascular: normal rate, regular rhythm Abdomen: soft, non tender Extremities: no edema Neurologic/Psychiatric: responsive Laboratory Tests 06/26/18 17:20: C-Reactive Protein, Quantitative 11.5H 06/27/18 03:05: White Blood Count 11.4H, Red Blood Count 3.76L, Hemoglobin 8.5L, Hematocrit 27.2L, Mean Corpuscular Volume 72L, Mean Corpuscular Hemoglobin 22.5L, Mean Corpuscular Hemoglobin Concent 31.2L, Red Cell Distribution Width 17.6H, Platelet Count 219, Mean Platelet Volume 6.7, Neutrophils (%) (Auto) 68.0, Lymphocytes (%) (Auto) 21.5, Monocytes (%) (Auto) 5.7, Eosinophils (%) (Auto) 4.2H, Basophils (%) (Auto) 0.6, Sodium Level 146H, Potassium Level 4.3, Chloride Level 105, Carbon Dioxide Level 33H, Anion Gap 8, Blood Urea Nitrogen 88H, Creatinine 2.7H, Estimat Glomerular Filtration Rate , Glucose Level 137H, Uric Acid 8.3H, Calcium Level 9.9, Phosphorus Level 3.8, Magnesium Level 2.9H, Iron Level 15L, Total Iron Binding Capacity 141L, Percent Iron Saturation 11L, Unsaturated Iron Binding 126, Ferritin 366, Total Bilirubin 0.2, Aspartate Amino Transf (AST/SGOT) 16, Alanine Aminotransferase (ALT/SGPT) 14, Alkaline Phosphatase 93, Pro-B-Type Natriuretic Peptide 1421H, Total Protein 6.7, Albumin 2.4L, Globulin 4.3, Albumin/Globulin Ratio 0.6L, Vitamin B12 Level 1847H , Folate 15.8, Random Vancomycin Level 12.6 Current Medications Medications (Trade) Dose Ordered Sig/Ann Route PRN Reason Start Time Stop Time Status Last Admin Dose Admin Acetaminophen (Tylenol) 650 mg Q4H PRN ORAL Mild Pain/Temp > 100.5 06/26/18 15:30 07/16/18 19:18 Acetaminophen/ Hydrocodone Bitart ([place] 5/325) 1 tab Q6H PRN ORAL Moderate Pain (Pain Scale 4-6) 06/26/18 14:00 07/01/18 13:59 Acetylcysteine (Mucomyst) 100 mg Q4HRT HHN 06/26/18 15:00 07/09/18 10:59 06/27/18 15:59 Albuterol/ Ipratropium (Albuterol/ Ipratropium) 3 ml Q4H PRN HHN Shortness of Breath 06/26/18 15:30 07/01/18 11:29 06/27/18 15:59 Amiodarone HCl (Cordarone) 200 mg DAILY@1800 GT 06/26/18 18:00 07/24/18 17:59 06/26/18 17:22 Amlodipine Besylate (Norvasc) 2.5 mg DAILY ORAL 06/27/18 09:00 07/25/18 08:59 06/27/18 08:22 Chlorhexidine Gluconate (Myra-Hex 2%) 1 applic DAILY@2000 TOPIC 06/26/18 20:00 07/02/18 19:59 06/26/18 19:39 Haloperidol Lactate (Haldol) 5 mg Q6H PRN IM Agitation 06/26/18 14:00 07/16/18 13:59 Lactobacillus Acidophilus (Culturelle) 1 tab TWICE A DAY GT 06/26/18 18:00 07/22/18 17:59 06/27/18 08:21 Lansoprazole (Prevacid) 30 mg BID GT 06/26/18 18:00 07/26/18 17:59 06/27/18 08:20 Metoprolol Tartrate (Lopressor) 5 mg Q6H PRN IVP HR > 125 06/26/18 18:00 07/16/18 17:59 Ondansetron HCl (Zofran) 4 mg Q6H PRN IVP Nausea & Vomiting 06/26/18 14:00 07/16/18 13:59 Quetiapine Fumarate (SEROquel) 25 mg Q6H PRN ORAL For Anxiety 06/26/18 14:00 07/16/18 13:59 Vancomycin HCl (Firvanq) 125 mg FOUR TIMES A DAY NG 06/26/18 18:00 06/28/18 23:59 06/27/18 13:44 Varinder De Souza MD Jun 27, 2018 16:18
[2018-06-27] MEDS: Amiodarone 200mg tab GT SCH (17:04)
--- NOTE | 2018-06-27 18:50 | NUR ---
HAND-OFF: Report given to beto.pt in no acute distress.
--- NOTE | 2018-06-27 19:08 | General Progress Note ---
Assessment/Plan Assessment/Plan Assessment - Resp failure - s/p PEG - C DIff diarrhea - COPD - CHF - PNA - Anemia Recommendations - GT feeds - Vent care - Elevated HOB - Monitor residuals - Pulmonary toilet - Vanco PO Subjective Allergies: Coded Allergies: Mushroom (Verified Allergy, Severe, 05/28/18) MORPHINE (Unverified Allergy, Intermediate, Itching, 01/04/15) PENICILLINS (Unverified Allergy, Intermediate, Hives, 06/25/18) Tolerates cephalosporins and carbapenems CELECOXIB (Verified Allergy, Mild, 01/15/09) Subjective Seen in [facility] tolerating TF still with diarrhea d/w RN Objective Last 24 Hour Vital Signs Date Time Temp Pulse Resp B/P (MAP) Pulse Ox O2 Delivery O2 Flow Rate FiO2 06/27/18 17:26 87 16 35 06/27/18 16:16 94 16 100 Mechanical Ventilator 35 06/27/18 16:00 98.7 90 13 148/70 (96) 99 06/27/18 16:00 Mechanical Ventilator Mechanical Ventilator 06/27/18 16:00 35 06/27/18 15:58 97 17 97 Mechanical Ventilator 35 06/27/18 15:57 97 18 35 06/27/18 13:47 94 18 35 06/27/18 12:00 35 06/27/18 12:00 Mechanical Ventilator Mechanical Ventilator 06/27/18 12:00 93 06/27/18 12:00 97.7 86 16 138/68 (91) 95 06/27/18 11:28 85 16 100 Mechanical Ventilator 35 06/27/18 11:12 85 16 99 Mechanical Ventilator 35 06/27/18 10:47 92 16 35 06/27/18 09:41 91 18 35 06/27/18 09:00 35 06/27/18 08:22 96 161/76 06/27/18 08:00 80 06/27/18 08:00 Mechanical Ventilator Mechanical Ventilator 06/27/18 08:00 98.2 96 16 161/76 (104) 96 06/27/18 07:40 95 19 100 Mechanical Ventilator 35 06/27/18 07:16 100 23 97 Mechanical Ventilator 35 06/27/18 07:14 98 20 35 06/27/18 05:30 79 16 35 06/27/18 04:00 35 06/27/18 04:00 80 16 100 Mechanical Ventilator 35 06/27/18 04:00 Mechanical Ventilator Mechanical Ventilator 06/27/18 04:00 80 06/27/18 04:00 98.6 79 16 140/61 (87) 96 06/27/18 03:50 78 16 97 Mechanical Ventilator 35 06/27/18 03:30 81 17 35 06/27/18 01:28 80 16 Mechanical Ventilator 06/27/18 01:27 80 16 35 06/27/18 00:00 Mechanical Ventilator Mechanical Ventilator 06/27/18 00:00 78 06/27/18 00:00 35 06/27/18 00:00 99.0 79 18 150/59 (89) 96 06/26/18 23:57 84 17 99 Mechanical Ventilator 35 06/26/18 23:45 82 16 97 Mechanical Ventilator 35 06/26/18 23:00 82 16 35 06/26/18 21:22 80 16 35 06/26/18 21:00 98.5 90 19 148/48 (81) 98 06/26/18 20:00 35 06/26/18 20:00 Mechanical Ventilator 06/26/18 20:00 90 06/26/18 20:00 Mechanical Ventilator Mechanical Ventilator 06/26/18 20:00 98.5 90 17 158/53 (88) 98 06/26/18 19:30 84 16 35 06/26/18 19:30 Mechanical Ventilator Intake and Output 06/26/18 06/27/18 18:59 06:59 Intake Total 1010 ml 630 ml Output Total 575 ml 525 ml Balance 435 ml 105 ml Free Water 380 ml 150 ml IV Total 150 ml 0 ml Tube Feeding 480 ml 480 ml Output Urine Total 515 ml 525 ml Stool Total 60 ml # Bowel Movements 1 Laboratory Tests 06/27/18 03:05: White Blood Count 11.4H, Red Blood Count 3.76L, Hemoglobin 8.5L, Hematocrit 27.2L, Mean Corpuscular Volume 72L, Mean Corpuscular Hemoglobin 22.5L, Mean Corpuscular Hemoglobin Concent 31.2L, Red Cell Distribution Width 17.6H, Platelet Count 219, Mean Platelet Volume 6.7, Neutrophils (%) (Auto) 68.0, Lymphocytes (%) (Auto) 21.5, Monocytes (%) (Auto) 5.7, Eosinophils (%) (Auto) 4.2H, Basophils (%) (Auto) 0.6, Sodium Level 146H, Potassium Level 4.3, Chloride Level 105, Carbon Dioxide Level 33H, Anion Gap 8, Blood Urea Nitrogen 88H, Creatinine 2.7H, Estimat Glomerular Filtration Rate , Glucose Level 137H, Uric Acid 8.3H, Calcium Level 9.9, Phosphorus Level 3.8, Magnesium Level 2.9H, Iron Level 15L, Total Iron Binding Capacity 141L, Percent Iron Saturation 11L, Unsaturated Iron Binding 126, Ferritin 366, Total Bilirubin 0.2, Aspartate Amino Transf (AST/SGOT) 16, Alanine Aminotransferase (ALT/SGPT) 14, Alkaline Phosphatase 93, Pro-B-Type Natriuretic Peptide 1421H, Total Protein 6.7, Albumin 2.4L, Globulin 4.3, Albumin/Globulin Ratio 0.6L, Vitamin B12 Level 1847H , Folate 15.8, Random Vancomycin Level 12.6 Height (Feet): 5 Height (Inches): 4.00 Weight (Pounds): 120 Objective Elderly WW NCAT, (+) NGT, (+)ETT Supple CTA RRR Soft, NT, ND No edema restrained Panchito Rahman MD Jun 27, 2018 19:08
--- NOTE | 2018-06-27 19:20 | NUR ---
NURSE NOTES: Report received from MARGY Carpio. Observed pt sleeping on the bed. No sign of pain noted. SR with lunchroom monitor. Trach to vent, Shiley 8, AC 16, TD 400, PEEP 5. G Tube intact and running Nephro @ 40cc/hr. Rectal tube intact and draining well. F/C intact and draining well. PICC on MILY, intact and patent. Bed in the lowest position. Side rails up x3. Will continue to monitor.
[2018-06-27 20:00] VITALS: BP 118/54
--- NOTE | 2018-06-27 20:01 | General Progress Note ---
Assessment/Plan Status: progressing Assessment/Plan This is an 87-year-old female admitted with chronic obstructive pulmonary disease exacerbation, right lower lobe infiltrate/pneumonia with altered mental status and acute kidney injury. The patient will be admitted to [facility] with the following medical problems. 1. Chronic obstructive pulmonary disease exacerbation and pneumonia. The patient has been seen by Pulmonary. Infectious Disease has been consulted, pancultured. IV antibiotics per ID. Continue with BiPAP and suction p.r.n. Transition to Venturi-mask when stable. 2. Acute kidney injury. We will monitor I's and O's, gentle intravenous fluids. Repeat a BMP in a.m. Consider Nephrology consult. 3. History of chronic atrial fibrillation. Continue with amiodarone. The patient is in sinus rhythm at this time. 4. History of hypertension. Continue with amlodipine and hold for systolic blood pressure less than 110. 5. Altered mental status, most likely from above conditions. We will keep n.p.o. except for medications and start IV fluids. 6. DVT prophylaxis with heparin subcutaneous and SCDs. 7. The patient is Full Code per policy. We will discuss with the family. 8. hypokalmia 9. Anemia 10. CHf acute on chronic 11. leucocytosis 12. ARF? ATN 13. C dif positive 14. hyperkalemia 15. pleural effusion 16. S/p Tracheostomy 06/22/18 Plan: - continue respiratory support - aggressive pulmonary suction - HD on hold as patient putting out better urine and createnine is improving - antibiotics per ID - on oral vanco - am labs - weaning off vent per pulmonary - Gi prophylaxis with protonix iv 40 mg daily - s/p Kayexalate - norvasc added for better BP cotrol - s/p PEG discussed with nurse Contact isolation for C dif now in [facility] consider spot lasix if ok with cardiology and renal will need LTAC possible Tran Subjective Date patient seen: Jun 27, 2018 ROS Limited/Unobtainable: Yes Allergies: Coded Allergies: Mushroom (Verified Allergy, Severe, 05/28/18) MORPHINE (Unverified Allergy, Intermediate, Itching, 01/04/15) PENICILLINS (Unverified Allergy, Intermediate, Hives, 06/25/18) Tolerates cephalosporins and carbapenems CELECOXIB (Verified Allergy, Mild, 01/15/09) Subjective patient is now reintubated, in renal failure, HD on hold as making better urine , C dif positive on ngt vanco, s/p tracheostomy. s/p PEG, moved to [facility] on Objective Last 24 Hour Vital Signs Date Time Temp Pulse Resp B/P (MAP) Pulse Ox O2 Delivery O2 Flow Rate FiO2 06/27/18 19:18 83 16 35 06/27/18 17:26 87 16 35 06/27/18 16:16 94 16 100 Mechanical Ventilator 35 06/27/18 16:00 98.7 90 13 148/70 (96) 99 06/27/18 16:00 Mechanical Ventilator Mechanical Ventilator 06/27/18 16:00 35 06/27/18 16:00 99 06/27/18 15:58 97 17 97 Mechanical Ventilator 35 06/27/18 15:57 97 18 35 06/27/18 13:47 94 18 35 06/27/18 12:00 35 06/27/18 12:00 Mechanical Ventilator Mechanical Ventilator 06/27/18 12:00 93 06/27/18 12:00 97.7 86 16 138/68 (91) 95 06/27/18 11:28 85 16 100 Mechanical Ventilator 35 06/27/18 11:12 85 16 99 Mechanical Ventilator 35 06/27/18 10:47 92 16 35 06/27/18 09:41 91 18 35 06/27/18 09:00 35 06/27/18 08:22 96 161/76 06/27/18 08:00 80 06/27/18 08:00 Mechanical Ventilator Mechanical Ventilator 06/27/18 08:00 98.2 96 16 161/76 (104) 96 06/27/18 07:40 95 19 100 Mechanical Ventilator 35 06/27/18 07:16 100 23 97 Mechanical Ventilator 35 06/27/18 07:14 98 20 35 06/27/18 05:30 79 16 35 06/27/18 04:00 35 06/27/18 04:00 80 16 100 Mechanical Ventilator 35 06/27/18 04:00 Mechanical Ventilator Mechanical Ventilator 06/27/18 04:00 80 06/27/18 04:00 98.6 79 16 140/61 (87) 96 06/27/18 03:50 78 16 97 Mechanical Ventilator 35 06/27/18 03:30 81 17 35 06/27/18 01:28 80 16 Mechanical Ventilator 06/27/18 01:27 80 16 35 06/27/18 00:00 Mechanical Ventilator Mechanical Ventilator 06/27/18 00:00 78 06/27/18 00:00 35 06/27/18 00:00 99.0 79 18 150/59 (89) 96 06/26/18 23:57 84 17 99 Mechanical Ventilator 35 06/26/18 23:45 82 16 97 Mechanical Ventilator 35 06/26/18 23:00 82 16 35 06/26/18 21:22 80 16 35 06/26/18 21:00 98.5 90 19 148/48 (81) 98 Intake and Output 06/26/18 06/27/18 18:59 06:59 Intake Total 1010 ml 630 ml Output Total 575 ml 525 ml Balance 435 ml 105 ml Free Water 380 ml 150 ml IV Total 150 ml 0 ml Tube Feeding 480 ml 480 ml Output Urine Total 515 ml 525 ml Stool Total 60 ml # Bowel Movements 1 Laboratory Tests 06/27/18 03:05: White Blood Count 11.4H, Red Blood Count 3.76L, Hemoglobin 8.5L, Hematocrit 27.2L, Mean Corpuscular Volume 72L, Mean Corpuscular Hemoglobin 22.5L, Mean Corpuscular Hemoglobin Concent 31.2L, Red Cell Distribution Width 17.6H, Platelet Count 219, Mean Platelet Volume 6.7, Neutrophils (%) (Auto) 68.0, Lymphocytes (%) (Auto) 21.5, Monocytes (%) (Auto) 5.7, Eosinophils (%) (Auto) 4.2H, Basophils (%) (Auto) 0.6, Sodium Level 146H, Potassium Level 4.3, Chloride Level 105, Carbon Dioxide Level 33H, Anion Gap 8, Blood Urea Nitrogen 88H, Creatinine 2.7H, Estimat Glomerular Filtration Rate , Glucose Level 137H, Uric Acid 8.3H, Calcium Level 9.9, Phosphorus Level 3.8, Magnesium Level 2.9H, Iron Level 15L, Total Iron Binding Capacity 141L, Percent Iron Saturation 11L, Unsaturated Iron Binding 126, Ferritin 366, Total Bilirubin 0.2, Aspartate Amino Transf (AST/SGOT) 16, Alanine Aminotransferase (ALT/SGPT) 14, Alkaline Phosphatase 93, Pro-B-Type Natriuretic Peptide 1421H, Total Protein 6.7, Albumin 2.4L, Globulin 4.3, Albumin/Globulin Ratio 0.6L, Vitamin B12 Level 1847H , Folate 15.8, Random Vancomycin Level 12.6 Height (Feet): 5 Height (Inches): 4.00 Weight (Pounds): 120 General Appearance: WD/WN EENT: PERRL/EOMI, pharynx normal Neck: non-tender, supple Cardiovascular: normal peripheral pulses Respiratory/Chest: chest wall non-tender, normal breath sounds, no respiratory distress Abdomen: non tender, soft, no mass Extremities: normal range of motion Edema: 1+ Arm (L), 1+ Arm (R), 1+ Leg (L), 1+ Leg (R), 1+ Pedal (L), 1+ Pedal ( R), 1+ Generalized Edema: trace edema Neurologic: responsive Skin: warm/dry Lymphatic: normal anterior cervical (L), normal anterior cervical (R), normal posterior cervical (L), normal posterior cervical (R), normal submandibular (L) , normal submandibular (R), normal supraclavicular (L), normal supraclavicular ( R), normal axillary (L), normal axillary (R), normal inguinal (L), normal inguinal (R), normal other Cruz Valderrama MD Jun 27, 2018 20:01
--- NOTE | 2018-06-27 20:04 | NUR ---
CASE MANAGEMENT: REVIEW SI: A-FIB . RESPIRATORY FAILURE TRACHEOSTOMY 06/23 PEG PLACEMENT 06/24 T 98.7 HR 97 RR 13 BP 148/70 SAT 99% MECH VENT FIO2 35 WBC 11.4 H/H 8.5/27.2 NA 146 BUN 88 CR 2.7 BNP 1421 IS: AMIODARONE PO QD PROTONIX IV QD VANCO HCl GT QID GT FEEDING NEPRO @40ML/HR STEP DOWN UNIT STATUS DCP: PATIENT IS FROM [facility] PLAN: ABG
--- NOTE | 2018-06-27 20:20 | Cardiology Progress Note ---
Assessment/Plan Assessment/Plan COPD, congestive heart failure, atrial fibrillation sinus tachy agitation right lung collapse? anemia pleural effusion respirator failure tachy acute on chronic renal failure pleural effusion tele sinus vent suppor t abx pulm rxn beta evelyn iv or via ngt prn amiod to 200 qd hemodynamically stable at the moment bp is ok cr abn s/p trach and peg Subjective ROS Limited/Unobtainable: Yes Subjective in icu on vent in isolation Objective Last 24 Hour Vital Signs Date Time Temp Pulse Resp B/P (MAP) Pulse Ox O2 Delivery O2 Flow Rate FiO2 06/27/18 20:00 98.8 83 16 118/54 (75) 96 06/27/18 19:18 83 16 35 06/27/18 17:26 87 16 35 06/27/18 16:16 94 16 100 Mechanical Ventilator 35 06/27/18 16:00 98.7 90 13 148/70 (96) 99 06/27/18 16:00 Mechanical Ventilator Mechanical Ventilator 06/27/18 16:00 35 06/27/18 16:00 99 06/27/18 15:58 97 17 97 Mechanical Ventilator 35 06/27/18 15:57 97 18 35 06/27/18 13:47 94 18 35 06/27/18 12:00 35 06/27/18 12:00 Mechanical Ventilator Mechanical Ventilator 06/27/18 12:00 93 06/27/18 12:00 97.7 86 16 138/68 (91) 95 06/27/18 11:28 85 16 100 Mechanical Ventilator 35 06/27/18 11:12 85 16 99 Mechanical Ventilator 35 06/27/18 10:47 92 16 35 06/27/18 09:41 91 18 35 06/27/18 09:00 35 06/27/18 08:22 96 161/76 06/27/18 08:00 80 06/27/18 08:00 Mechanical Ventilator Mechanical Ventilator 06/27/18 08:00 98.2 96 16 161/76 (104) 96 06/27/18 07:40 95 19 100 Mechanical Ventilator 35 06/27/18 07:16 100 23 97 Mechanical Ventilator 35 06/27/18 07:14 98 20 35 06/27/18 05:30 79 16 35 06/27/18 04:00 35 06/27/18 04:00 80 16 100 Mechanical Ventilator 35 06/27/18 04:00 Mechanical Ventilator Mechanical Ventilator 06/27/18 04:00 80 06/27/18 04:00 98.6 79 16 140/61 (87) 96 06/27/18 03:50 78 16 97 Mechanical Ventilator 35 06/27/18 03:30 81 17 35 06/27/18 01:28 80 16 Mechanical Ventilator 06/27/18 01:27 80 16 35 06/27/18 00:00 Mechanical Ventilator Mechanical Ventilator 06/27/18 00:00 78 06/27/18 00:00 35 06/27/18 00:00 99.0 79 18 150/59 (89) 96 06/26/18 23:57 84 17 99 Mechanical Ventilator 35 06/26/18 23:45 82 16 97 Mechanical Ventilator 35 06/26/18 23:00 82 16 35 06/26/18 21:22 80 16 35 06/26/18 21:00 98.5 90 19 148/48 (81) 98 General Appearance: no apparent distress, on vent, patient on isolation Neck: supple Cardiovascular: normal rate Respiratory/Chest: lungs clear - ant Abdomen: normal bowel sounds, non tender, soft Extremities: no swelling Intake and Output 06/26/18 06/27/18 19:00 07:00 Intake Total 910 ml 630 ml Output Total 590 ml 520 ml Balance 320 ml 110 ml Free Water 280 ml 150 ml IV Total 150 ml 0 ml Tube Feeding 480 ml 480 ml Output Urine Total 530 ml 520 ml Stool Total 60 ml # Bowel Movements 1 50 Laboratory Tests Test 06/27/18 03:05 White Blood Count 11.4 K/UL (4.8-10.8) H Red Blood Count 3.76 M/UL (4.20-5.40) L Hemoglobin 8.5 G/DL (12.0-16.0) L Hematocrit 27.2 % (37.0-47.0) L Mean Corpuscular Volume 72 FL (80-99) L Mean Corpuscular Hemoglobin 22.5 PG (27.0-31.0) L Mean Corpuscular Hemoglobin Concent 31.2 G/DL (32.0-36.0) L Red Cell Distribution Width 17.6 % (11.6-14.8) H Platelet Count 219 K/UL (150-450) Mean Platelet Volume 6.7 FL (6.5-10.1) Neutrophils (%) (Auto) 68.0 % (45.0-75.0) Lymphocytes (%) (Auto) 21.5 % (20.0-45.0) Monocytes (%) (Auto) 5.7 % (1.0-10.0) Eosinophils (%) (Auto) 4.2 % (0.0-3.0) H Basophils (%) (Auto) 0.6 % (0.0-2.0) Sodium Level 146 MMOL/L (136-145) H Potassium Level 4.3 MMOL/L (3.5-5.1) Chloride Level 105 MMOL/L (98-107) Carbon Dioxide Level 33 MMOL/L (21-32) H Anion Gap 8 mmol/L (5-15) Blood Urea Nitrogen 88 mg/dL (7-18) H Creatinine 2.7 MG/DL (0.55-1.30) H Estimat Glomerular Filtration Rate mL/min (>60) Glucose Level 137 MG/DL (74-106) H Uric Acid 8.3 MG/DL (2.6-7.2) H Calcium Level 9.9 MG/DL (8.5-10.1) Phosphorus Level 3.8 MG/DL (2.5-4.9) Magnesium Level 2.9 MG/DL (1.8-2.4) H Iron Level 15 ug/dL (50-175) L Total Iron Binding Capacity 141 ug/dL (250-450) L Percent Iron Saturation 11 % (15-50) L Unsaturated Iron Binding 126 ug/dL (112-346) Ferritin 366 NG/ML (8-388) Total Bilirubin 0.2 MG/DL (0.2-1.0) Aspartate Amino Transf (AST/SGOT) 16 U/L (15-37) Alanine Aminotransferase (ALT/SGPT) 14 U/L (12-78) Alkaline Phosphatase 93 U/L (46-116) Pro-B-Type Natriuretic Peptide 1421 pg/mL (0-125) H Total Protein 6.7 G/DL (6.4-8.2) Albumin 2.4 G/DL (3.4-5.0) L Globulin 4.3 g/dL Albumin/Globulin Ratio 0.6 (1.0-2.7) L Vitamin B12 Level 1847 PG/ML (193-986) H Folate 15.8 NG/ML (8.6-58.9) Random Vancomycin Level 12.6 ug/mL Geoffrey Sandhu MD Jun 27, 2018 20:20
[2018-06-27] MEDS: Dyna-Hex 2% Top Sol 2oz TOPIC SCH (20:58)
[2018-06-28] VITALS: BP 119/51
[2018-06-28] MEDS: Albuterol/Ipratropium 3ml neb HHN PRN ×6 (01:42→22:59)
[2018-06-28 04:00] VITALS: BP 147/71
[2018-06-28 07:12] LABS: ALANINE AMINOTRANSFERASE 15 U/L (12-78); ALBUMIN 2.2 G/DL (3.4-5.0); ALBUMIN/GLOBULIN RATIO 0.6 (1.0-2.7); ALKALINE PHOSPHATASE 91 U/L (46-116); ANION GAP 5 mmol/L (5-15); ASPARTATE AMINO TRANSFERASE 11 U/L (15-37); BILIRUBIN,TOTAL 0.2 MG/DL (0.2-1.0); BLOOD UREA NITROGEN 90 mg/dL (7-18); CALCIUM 9.8 MG/DL (8.5-10.1); CARBON DIOXIDE 36 MMOL/L (21-32); CHLORIDE 106 MMOL/L (98-107); CREATININE 2.4 MG/DL (0.55-1.30); POTASSIUM 3.8 MMOL/L (3.5-5.1); SODIUM 147 MMOL/L (136-145)
--- NOTE | 2018-06-28 07:20 | NUR ---
HAND-OFF: Report given to MARGY Paz.
[2018-06-28 07:25] LABS: HEMATOCRIT 23.1 % (37.0-47.0); MEAN CORPUSCULAR VOLUME 73 FL (80-99); PLATELET COUNT 196 K/UL (150-450); RED BLOOD COUNT 3.14 M/UL (4.20-5.40); RED CELL DISTRIBUTION WIDTH 17.6 % (11.6-14.8); WHITE BLOOD COUNT 9.7 K/UL (4.8-10.8)
--- NOTE | 2018-06-28 07:30 | NUR ---
NURSE NOTES: Received pt from [place] RN. Pt is awake with no cardiopulmonary distress noted. Pt is trach to vent Shiley 8 ac 16 TV 400 FiO2 35% Peep 5. GT noted running Nepro at 40cc/hr. Rectal tube noted draining stool. F/C noted draining urine. Skin alterations noted. MILY PICC noted. Pt has bilat soft wrist restraints. Skin around wrists are intact and radial pulses present. Bed in lowest position. Call light within reach. Side rails up x 3. Will continue to monitor pt.
[2018-06-28 08:00] VITALS: BP 139/60
[2018-06-28] MEDS: Vancomycin oral 125mg/2.5ml NG SCH ×4 (09:22→21:11)
[2018-06-28] MEDS: Lactobacillus-GG tablet GT SCH ×2 (09:22→17:18)
--- NOTE | 2018-06-28 09:43 | General Progress Note ---
Assessment/Plan Status: progressing Assessment/Plan This is an 87-year-old female admitted with chronic obstructive pulmonary disease exacerbation, right lower lobe infiltrate/pneumonia with altered mental status and acute kidney injury. The patient will be admitted to [facility] with the following medical problems. 1. Chronic obstructive pulmonary disease exacerbation and pneumonia. The patient has been seen by Pulmonary. Infectious Disease has been consulted, pancultured. IV antibiotics per ID. Continue with BiPAP and suction p.r.n. Transition to Venturi-mask when stable. 2. Acute kidney injury. We will monitor I's and O's, gentle intravenous fluids. Repeat a BMP in a.m. Consider Nephrology consult. 3. History of chronic atrial fibrillation. Continue with amiodarone. The patient is in sinus rhythm at this time. 4. History of hypertension. Continue with amlodipine and hold for systolic blood pressure less than 110. 5. Altered mental status, most likely from above conditions. We will keep n.p.o. except for medications and start IV fluids. 6. DVT prophylaxis with heparin subcutaneous and SCDs. 7. The patient is Full Code per policy. We will discuss with the family. 8. hypokalmia 9. Anemia 10. CHf acute on chronic 11. leucocytosis 12. ARF? ATN 13. C dif positive 14. hyperkalemia 15. pleural effusion 16. S/p Tracheostomy 06/22/18 Plan: - continue respiratory support - aggressive pulmonary suction - HD on hold as patient putting out better urine and createnine is improving - antibiotics per ID - on oral vanco - am labs - weaning off vent per pulmonary - Gi prophylaxis with protonix iv 40 mg daily - s/p Kayexalate - norvasc added for better BP cotrol - s/p PEG discussed with nurse Contact isolation for C dif now in [facility] consider spot lasix if ok with cardiology and renal - transfuse one unit of PRBC today will need LTAC possible [facility] Subjective Date patient seen: Jun 28, 2018 ROS Limited/Unobtainable: Yes Allergies: Coded Allergies: Mushroom (Verified Allergy, Severe, 05/28/18) MORPHINE (Unverified Allergy, Intermediate, Itching, 01/04/15) PENICILLINS (Unverified Allergy, Intermediate, Hives, 06/25/18) Tolerates cephalosporins and carbapenems CELECOXIB (Verified Allergy, Mild, 01/15/09) Subjective patient is now reintubated, in renal failure, HD on hold as making better urine , C dif positive on ngt vanco, s/p tracheostomy. s/p PEG, moved to [facility] on , anemic today Objective Last 24 Hour Vital Signs Date Time Temp Pulse Resp B/P (MAP) Pulse Ox O2 Delivery O2 Flow Rate FiO2 06/28/18 09:35 96 16 97 Mechanical Ventilator 35 06/28/18 09:21 91 139/60 06/28/18 09:05 96 16 35 06/28/18 08:00 98.5 91 19 139/60 (86) 96 06/28/18 07:00 70 16 35 06/28/18 05:22 83 16 98 Mechanical Ventilator 35 06/28/18 05:16 76 16 35 06/28/18 05:12 78 16 96 Mechanical Ventilator 35 06/28/18 04:00 98.2 90 16 147/71 (96) 95 06/28/18 04:00 35 06/28/18 04:00 Mechanical Ventilator Mechanical Ventilator 06/28/18 04:00 84 06/28/18 03:30 76 16 35 06/28/18 01:52 79 16 98 Mechanical Ventilator 35 06/28/18 01:42 73 16 95 Mechanical Ventilator 35 06/28/18 00:48 78 16 35 06/28/18 00:00 Mechanical Ventilator Mechanical Ventilator 06/28/18 00:00 98.1 79 16 119/51 (73) 95 06/27/18 23:07 78 16 35 06/27/18 20:49 82 16 35 06/27/18 20:33 80 16 98 Mechanical Ventilator 35 06/27/18 20:21 83 17 97 Mechanical Ventilator 35 06/27/18 20:00 Mechanical Ventilator Mechanical Ventilator 06/27/18 20:00 98.8 83 16 118/54 (75) 96 06/27/18 20:00 35 06/27/18 20:00 83 06/27/18 19:18 83 16 35 06/27/18 17:26 87 16 35 06/27/18 16:16 94 16 100 Mechanical Ventilator 35 06/27/18 16:00 98.7 90 13 148/70 (96) 99 06/27/18 16:00 Mechanical Ventilator Mechanical Ventilator 06/27/18 16:00 35 06/27/18 16:00 99 06/27/18 15:58 97 17 97 Mechanical Ventilator 35 06/27/18 15:57 97 18 35 06/27/18 13:47 94 18 35 06/27/18 12:00 35 06/27/18 12:00 Mechanical Ventilator Mechanical Ventilator 06/27/18 12:00 93 06/27/18 12:00 97.7 86 16 138/68 (91) 95 06/27/18 11:28 85 16 100 Mechanical Ventilator 35 06/27/18 11:12 85 16 99 Mechanical Ventilator 35 06/27/18 10:47 92 16 35 Intake and Output 06/27/18 06/28/18 19:00 07:00 Intake Total 180 ml 550 ml Output Total 270 ml 400 ml Balance -90 ml 150 ml Free Water 100 ml 110 ml Tube Feeding 80 ml 440 ml Output Urine Total 120 ml 400 ml Stool Total 150 ml Laboratory Tests 06/28/18 04:00: White Blood Count 9.7, Red Blood Count 3.14L, Hemoglobin 7.0L, Hematocrit 23.1L , Mean Corpuscular Volume 73L, Mean Corpuscular Hemoglobin 22.4L, Mean Corpuscular Hemoglobin Concent 30.5L, Red Cell Distribution Width 17.6H, Platelet Count 196, Mean Platelet Volume 6.6, Neutrophils (%) (Auto) , Lymphocytes (%) (Auto) , Monocytes (%) (Auto) , Eosinophils (%) (Auto) , Basophils (%) (Auto) , Neutrophils % (Manual) [Pending], Lymphocytes % (Manual) [Pending], Platelet Estimate [Pending], Platelet Morphology [Pending], Sodium Level 147H, Potassium Level 3.8, Chloride Level 106, Carbon Dioxide Level 36H, Anion Gap 5, Blood Urea Nitrogen 90H, Creatinine 2.4H, Estimat Glomerular Filtration Rate , Glucose Level 111H, Calcium Level 9.8, Total Bilirubin 0.2, Aspartate Amino Transf (AST/SGOT) 11L, Alanine Aminotransferase (ALT/SGPT) 15, Alkaline Phosphatase 91, Total Protein 6.2L, Albumin 2.2L, Globulin 4.0, Albumin /Globulin Ratio 0.6L 06/28/18 09:23: Arterial Blood pH 7.434, Arterial Blood Partial Pressure CO2 58.1*H, Arterial Blood Partial Pressure O2 83.6, Arterial Blood HCO3 38.0H, Arterial Blood Oxygen Saturation 95.3, Arterial Blood Base Excess 12.2*H, David Test Positive Height (Feet): 5 Height (Inches): 4.00 Weight (Pounds): 115 General Appearance: no apparent distress, alert EENT: PERRL/EOMI, pharynx normal Neck: non-tender, supple Cardiovascular: normal rate, regular rhythm, no gallop/murmur, no JVD Respiratory/Chest: chest wall non-tender, normal breath sounds, no respiratory distress Abdomen: non tender, soft, no mass Extremities: non-tender, normal inspection, no calf tenderness Edema: 1+ Arm (L), 1+ Arm (R), 1+ Leg (L), 1+ Leg (R), 1+ Pedal (L), 1+ Pedal ( R), 1+ Generalized Edema: trace edema Neurologic: alert Skin: warm/dry Lymphatic: normal anterior cervical (L), normal anterior cervical (R), normal posterior cervical (L), normal posterior cervical (R), normal submandibular (L) , normal submandibular (R), normal supraclavicular (L), normal supraclavicular ( R), normal axillary (L), normal axillary (R), normal inguinal (L), normal inguinal (R), normal other Cruz Valderrama MD Jun 28, 2018 09:43
--- NOTE | 2018-06-28 10:02 | NUR ---
RADIOLOGY DEPT CHEST X-RAY DONE.-P.DYE
--- NOTE | 2018-06-28 11:22 | Diagnostic Imaging Report ---
Indication: Dyspnea Technique: One view of the chest Comparison: 06/25/2018 Findings: Extensive bilateral interstitial and airspace edema, bilateral right greater than left pleural effusions persist, unchanged. Stable satisfactory positions of tracheostomy, right arm PICC. The heart is borderline enlarged Impression: Unchanged, over 3 days, findings as above.
--- NOTE | 2018-06-28 11:37 | Pulmonology Progress Note ---
Assessment/Plan Assessment/Plan Problem List: 1. Acute on chronic hypercapnic respiratory failure -intubated 06/02; extubated 06/10 -reintubated 06/17 -trach 06/23 shiley 8 2. R lung collapse, mucous plugging - resolved 3. Pulmonary edema 4. chronic obstructive asthma 5. Pneumonia 6. Hx afib 7. MRSA pna, recurrent fever and increased leukocytosis 8. ESBL E.coli pna 9. C.diff colitis 10. Pleural effusion Plan: -cont mechanical ventilatory support -thoracentesis eval -weaning trials as tolerated -Trach placement done -aggressive pulmonary hygiene with duonebs/mucomyst/suctioning q4 -chest PT R lung -monitor volumes -monitor renal function -abx per ID -PEG done -d/c seroquel and haldol d/c planning LTACH Subjective ROS Limited/Unobtainable: Yes Interval Events: ABG and CXR done today. Was agitated and given seroquel. Sedated now. Allergies: Coded Allergies: Mushroom (Verified Allergy, Severe, 05/28/18) MORPHINE (Unverified Allergy, Intermediate, Itching, 01/04/15) PENICILLINS (Unverified Allergy, Intermediate, Hives, 06/25/18) Tolerates cephalosporins and carbapenems CELECOXIB (Verified Allergy, Mild, 01/15/09) Objective Last 24 Hour Vital Signs Date Time Temp Pulse Resp B/P (MAP) Pulse Ox O2 Delivery O2 Flow Rate FiO2 06/28/18 11:11 83 16 35 06/28/18 09:45 77 16 99 Mechanical Ventilator 35 06/28/18 09:35 96 16 97 Mechanical Ventilator 35 06/28/18 09:21 91 139/60 06/28/18 09:05 96 16 35 06/28/18 08:00 98.5 91 19 139/60 (86) 96 06/28/18 08:00 Mechanical Ventilator Mechanical Ventilator 06/28/18 08:00 35 06/28/18 07:00 70 16 35 06/28/18 05:22 83 16 98 Mechanical Ventilator 35 06/28/18 05:16 76 16 35 06/28/18 05:12 78 16 96 Mechanical Ventilator 35 06/28/18 04:00 98.2 90 16 147/71 (96) 95 06/28/18 04:00 35 06/28/18 04:00 Mechanical Ventilator Mechanical Ventilator 06/28/18 04:00 84 06/28/18 03:30 76 16 35 06/28/18 01:52 79 16 98 Mechanical Ventilator 35 06/28/18 01:42 73 16 95 Mechanical Ventilator 35 06/28/18 00:48 78 16 35 06/28/18 00:00 Mechanical Ventilator Mechanical Ventilator 06/28/18 00:00 98.1 79 16 119/51 (73) 95 06/27/18 23:07 78 16 35 06/27/18 20:49 82 16 35 06/27/18 20:33 80 16 98 Mechanical Ventilator 35 06/27/18 20:21 83 17 97 Mechanical Ventilator 35 06/27/18 20:00 Mechanical Ventilator Mechanical Ventilator 06/27/18 20:00 98.8 83 16 118/54 (75) 96 06/27/18 20:00 35 06/27/18 20:00 83 06/27/18 19:18 83 16 35 06/27/18 17:26 87 16 35 06/27/18 16:16 94 16 100 Mechanical Ventilator 35 06/27/18 16:00 98.7 90 13 148/70 (96) 99 06/27/18 16:00 Mechanical Ventilator Mechanical Ventilator 06/27/18 16:00 35 06/27/18 16:00 99 06/27/18 15:58 97 17 97 Mechanical Ventilator 35 06/27/18 15:57 97 18 35 06/27/18 13:47 94 18 35 06/27/18 12:00 35 06/27/18 12:00 Mechanical Ventilator Mechanical Ventilator 06/27/18 12:00 93 06/27/18 12:00 97.7 86 16 138/68 (91) 95 Intake and Output 06/27/18 06/28/18 19:00 07:00 Intake Total 180 ml 550 ml Output Total 270 ml 400 ml Balance -90 ml 150 ml Free Water 100 ml 110 ml Tube Feeding 80 ml 440 ml Output Urine Total 120 ml 400 ml Stool Total 150 ml General Appearance: no acute distress HEENT: normocephalic, atraumatic Respiratory/Chest: decreased breath sounds Cardiovascular: normal rate, regular rhythm Abdomen: soft, non tender Extremities: no edema Laboratory Tests 06/28/18 04:00: White Blood Count 9.7, Red Blood Count 3.14L, Hemoglobin 7.0L, Hematocrit 23.1L , Mean Corpuscular Volume 73L, Mean Corpuscular Hemoglobin 22.4L, Mean Corpuscular Hemoglobin Concent 30.5L, Red Cell Distribution Width 17.6H, Platelet Count 196, Mean Platelet Volume 6.6, Neutrophils (%) (Auto) , Lymphocytes (%) (Auto) , Monocytes (%) (Auto) , Eosinophils (%) (Auto) , Basophils (%) (Auto) , Differential Total Cells Counted 100, Neutrophils % ( Manual) 77H, Lymphocytes % (Manual) 12L, Monocytes % (Manual) 5, Eosinophils % ( Manual) 6H, Basophils % (Manual) 0, Band Neutrophils 0, Platelet Estimate Adequate, Platelet Morphology Normal, Hypochromasia 3+, Anisocytosis 2+, Microcytosis 3+, Sodium Level 147H, Potassium Level 3.8, Chloride Level 106, Carbon Dioxide Level 36H, Anion Gap 5, Blood Urea Nitrogen 90H, Creatinine 2.4H , Estimat Glomerular Filtration Rate , Glucose Level 111H, Calcium Level 9.8, Total Bilirubin 0.2, Aspartate Amino Transf (AST/SGOT) 11L, Alanine Aminotransferase (ALT/SGPT) 15, Alkaline Phosphatase 91, Total Protein 6.2L, Albumin 2.2L, Globulin 4.0, Albumin/Globulin Ratio 0.6L 06/28/18 09:23: Arterial Blood pH 7.434, Arterial Blood Partial Pressure CO2 58.1*H, Arterial Blood Partial Pressure O2 83.6, Arterial Blood HCO3 38.0H, Arterial Blood Oxygen Saturation 95.3, Arterial Blood Base Excess 12.2*H, David Test Positive Current Medications Medications (Trade) Dose Ordered Sig/Ann Route PRN Reason Start Time Stop Time Status Last Admin Dose Admin Acetaminophen (Tylenol) 650 mg Q4H PRN ORAL Mild Pain/Temp > 100.5 06/26/18 15:30 07/16/18 19:18 06/27/18 17:06 Acetaminophen/ Hydrocodone Bitart ([place] 5/325) 1 tab Q6H PRN ORAL Moderate Pain (Pain Scale 4-6) 06/26/18 14:00 07/01/18 13:59 Acetylcysteine (Mucomyst) 100 mg Q4HRT HHN 06/26/18 15:00 07/09/18 10:59 06/28/18 09:36 Albuterol/ Ipratropium (Albuterol/ Ipratropium) 3 ml Q4H PRN HHN Shortness of Breath 06/26/18 15:30 07/01/18 11:29 06/28/18 09:37 Amiodarone HCl (Cordarone) 200 mg DAILY@1800 GT 06/26/18 18:00 07/24/18 17:59 06/27/18 17:04 Amlodipine Besylate (Norvasc) 2.5 mg DAILY ORAL 06/27/18 09:00 07/25/18 08:59 06/28/18 09:21 Chlorhexidine Gluconate (Myra-Hex 2%) 1 applic DAILY@2000 TOPIC 06/26/18 20:00 07/02/18 19:59 06/27/18 20:58 Lactobacillus Acidophilus (Culturelle) 1 tab TWICE A DAY GT 06/26/18 18:00 07/22/18 17:59 06/28/18 09:22 Lansoprazole (Prevacid) 30 mg BID GT 06/26/18 18:00 07/26/18 17:59 06/28/18 09:22 Metoprolol Tartrate (Lopressor) 5 mg Q6H PRN IVP HR > 125 06/26/18 18:00 07/16/18 17:59 Ondansetron HCl (Zofran) 4 mg Q6H PRN IVP Nausea & Vomiting 06/26/18 14:00 07/16/18 13:59 Vancomycin HCl (Firvanq) 125 mg FOUR TIMES A DAY NG 06/26/18 18:00 06/28/18 23:59 06/28/18 09:22 Varinder De Souza MD Jun 28, 2018 11:37
[2018-06-28 12:00] VITALS: BP 139/60
--- NOTE | 2018-06-28 12:49 | Infectious Diseases Prog Note ---
Assessment/Plan Assessment/Plan 87 yo feamle with PMHx of COPD, HTN, and A.fib sent to the ED from her nuring home for SOB. Sepsis;improving - Likely PNA 06/21 CXR: Slightly increased right lung opacity, suspect increasing pleural fluid.Increased retrocardiac consolidation 06/17 CXR: Increasing right lung opacity, likely representing decreasing pleural fluid but may also represent increasing parenchymal consolidation 06/15 CXR: Increasing opacification right hemithorax, likely reflecting increasing pleural fluid but may also reflect increasing pulmonary parenchymal consolidation 06/14 CXR: Diffuse right lung hazy opacity appears similar to the prior exam. 06/12 CXR: : Hazy opacification of the right hemithorax, likely reflecting pleural fluid, is unchanged. 05/28/18 CXR with atalectasis vs consolidation in the right side. 06/01/18 CXR - Extensive right hemithorax opacification UA (-) sputum cx 06/15: MRSA (likely a colonizer at this point), ESBL E.coli Sputum Cx 05/28/18 - MRSA (Inf Neg) Urine legionella (-) Acute respiratory failure s/p intubation 06/16 Cdiff colitis -06/19 Cdif toxin a/b + R lung collapse: -06/16 CXR: Complete opacification of the right hemithorax. Probably due to complete atelectasis of the right lung, with evidence of abrupt occlusion of the rightmainstem bronchus. Given findings on prior chest radiographs, there is probablysignificant component of pleural effusion as well. Positive blood Cx - Likely contaminant BCx 05/28/18 - CoNS BCX 05/30/18 - NGTD Leukocytosis , recurrent mild- SP Fever, SP COPD CAD A. fib s/p trach 06/23 s/p PEG 06/24 PLAN -Continue PO Vancomycin #10/10 for Cdiff -06/26 SP Ertapenem #6 -06/20 SP Meropenem #5 -06/17 SP IV Vancomycin #21 -06/16 SP Cefepime #20 - Monitor CBC and Temps -f/u cx We will continue to follow Ms. Nowak during this hospitalization. Subjective Allergies: Coded Allergies: Mushroom (Verified Allergy, Severe, 05/28/18) MORPHINE (Unverified Allergy, Intermediate, Itching, 9/4/15) PENICILLINS (Unverified Allergy, Intermediate, Hives, 06/25/18) Tolerates cephalosporins and carbapenems CELECOXIB (Verified Allergy, Mild, 01/15/09) Subjective afebrile mild leucocytosis resolved Objective Vital Signs Last 24 Hour Vital Signs Date Time Temp Pulse Resp B/P (MAP) Pulse Ox O2 Delivery O2 Flow Rate FiO2 06/28/18 12:00 Mechanical Ventilator Mechanical Ventilator 06/28/18 12:00 35 06/28/18 12:00 98.8 85 16 139/60 (86) 97 06/28/18 11:11 83 16 35 06/28/18 09:45 77 16 99 Mechanical Ventilator 35 06/28/18 09:35 96 16 97 Mechanical Ventilator 35 06/28/18 09:21 91 139/60 06/28/18 09:05 96 16 35 06/28/18 08:00 98.5 91 19 139/60 (86) 96 06/28/18 08:00 79 06/28/18 08:00 Mechanical Ventilator Mechanical Ventilator 06/28/18 08:00 35 06/28/18 07:00 70 16 35 06/28/18 05:22 83 16 98 Mechanical Ventilator 35 06/28/18 05:16 76 16 35 06/28/18 05:12 78 16 96 Mechanical Ventilator 35 06/28/18 04:00 98.2 90 16 147/71 (96) 95 06/28/18 04:00 35 06/28/18 04:00 Mechanical Ventilator Mechanical Ventilator 06/28/18 04:00 84 06/28/18 03:30 76 16 35 06/28/18 01:52 79 16 98 Mechanical Ventilator 35 06/28/18 01:42 73 16 95 Mechanical Ventilator 35 06/28/18 00:48 78 16 35 06/28/18 00:00 Mechanical Ventilator Mechanical Ventilator 06/28/18 00:00 98.1 79 16 119/51 (73) 95 06/27/18 23:07 78 16 35 06/27/18 20:49 82 16 35 06/27/18 20:33 80 16 98 Mechanical Ventilator 35 06/27/18 20:21 83 17 97 Mechanical Ventilator 35 06/27/18 20:00 Mechanical Ventilator Mechanical Ventilator 06/27/18 20:00 98.8 83 16 118/54 (75) 96 06/27/18 20:00 35 06/27/18 20:00 83 06/27/18 19:18 83 16 35 06/27/18 17:26 87 16 35 06/27/18 16:16 94 16 100 Mechanical Ventilator 35 06/27/18 16:00 98.7 90 13 148/70 (96) 99 06/27/18 16:00 Mechanical Ventilator Mechanical Ventilator 06/27/18 16:00 35 06/27/18 16:00 99 06/27/18 15:58 97 17 97 Mechanical Ventilator 35 06/27/18 15:57 97 18 35 06/27/18 13:47 94 18 35 Height (Feet): 5 Height (Inches): 4.00 Weight (Pounds): 115 Objective General Appearance: no apparent distress, other - on intubated Neck: supple Cardiovascular: normal rate Respiratory/Chest: lungs clear Abdomen: normal bowel sounds, non tender, soft Extremities: trace edema Laboratory Tests Test 06/28/18 04:00 06/28/18 09:23 06/28/18 12:20 White Blood Count 9.7 K/UL (4.8-10.8) Red Blood Count 3.14 M/UL (4.20-5.40) L Hemoglobin 7.0 G/DL (12.0-16.0) L Hematocrit 23.1 % (37.0-47.0) L Mean Corpuscular Volume 73 FL (80-99) L Mean Corpuscular Hemoglobin 22.4 PG (27.0-31.0) L Mean Corpuscular Hemoglobin Concent 30.5 G/DL (32.0-36.0) L Red Cell Distribution Width 17.6 % (11.6-14.8) H Platelet Count 196 K/UL (150-450) Mean Platelet Volume 6.6 FL (6.5-10.1) Neutrophils (%) (Auto) % (45.0-75.0) Lymphocytes (%) (Auto) % (20.0-45.0) Monocytes (%) (Auto) % (1.0-10.0) Eosinophils (%) (Auto) % (0.0-3.0) Basophils (%) (Auto) % (0.0-2.0) Differential Total Cells Counted 100 Neutrophils % (Manual) 77 % (45-75) H Lymphocytes % (Manual) 12 % (20-45) L Monocytes % (Manual) 5 % (1-10) Eosinophils % (Manual) 6 % (0-3) H Basophils % (Manual) 0 % (0-2) Band Neutrophils 0 % (0-8) Platelet Estimate Adequate Platelet Morphology Normal Hypochromasia 3+ Anisocytosis 2+ Microcytosis 3+ Sodium Level 147 MMOL/L (136-145) H Potassium Level 3.8 MMOL/L (3.5-5.1) Chloride Level 106 MMOL/L (98-107) Carbon Dioxide Level 36 MMOL/L (21-32) H Anion Gap 5 mmol/L (5-15) Blood Urea Nitrogen 90 mg/dL (7-18) H Creatinine 2.4 MG/DL (0.55-1.30) H Estimat Glomerular Filtration Rate mL/min (>60) Glucose Level 111 MG/DL (74-106) H Calcium Level 9.8 MG/DL (8.5-10.1) Total Bilirubin 0.2 MG/DL (0.2-1.0) Aspartate Amino Transf (AST/SGOT) 11 U/L (15-37) L Alanine Aminotransferase (ALT/SGPT) 15 U/L (12-78) Alkaline Phosphatase 91 U/L (46-116) Total Protein 6.2 G/DL (6.4-8.2) L Albumin 2.2 G/DL (3.4-5.0) L Globulin 4.0 g/dL Albumin/Globulin Ratio 0.6 (1.0-2.7) L Arterial Blood pH 7.434 (7.350-7.450) Arterial Blood Partial Pressure CO2 58.1 mmHg (35.0-45.0) *H Arterial Blood Partial Pressure O2 83.6 mmHg (75.0-100.0) Arterial Blood HCO3 38.0 mmol/L (22.0-26.0) H Arterial Blood Oxygen Saturation 95.3 % (95-100) Arterial Blood Base Excess 12.2 (-2-2) *H David Test Positive Prothrombin Time Pending Prothromb Time International Ratio Pending Activated Partial Thromboplast Time Pending Current Medications Medications (Trade) Dose Ordered Sig/Ann Route PRN Reason Start Time Stop Time Status Last Admin Dose Admin Acetaminophen (Tylenol) 650 mg Q4H PRN ORAL Mild Pain/Temp > 100.5 2/24/19 15:30 07/16/18 19:18 06/27/18 17:06 Acetaminophen/ Hydrocodone Bitart ([place] 5/325) 1 tab Q6H PRN ORAL Moderate Pain (Pain Scale 4-6) 06/26/18 14:00 07/01/18 13:59 Acetylcysteine (Mucomyst) 100 mg Q4HRT HHN 06/26/18 15:00 07/09/18 10:59 06/28/18 09:36 Albuterol/ Ipratropium (Albuterol/ Ipratropium) 3 ml Q4H PRN HHN Shortness of Breath 06/26/18 15:30 07/01/18 11:29 06/28/18 09:37 Amiodarone HCl (Cordarone) 200 mg DAILY@1800 GT 06/26/18 18:00 07/24/18 17:59 06/27/18 17:04 Amlodipine Besylate (Norvasc) 2.5 mg DAILY ORAL 06/27/18 09:00 07/25/18 08:59 06/28/18 09:21 Chlorhexidine Gluconate (Myra-Hex 2%) 1 applic DAILY@2000 TOPIC 06/26/18 20:00 07/02/18 19:59 06/27/18 20:58 Lactobacillus Acidophilus (Culturelle) 1 tab TWICE A DAY GT 06/26/18 18:00 07/22/18 17:59 06/28/18 09:22 Lansoprazole (Prevacid) 30 mg BID GT 06/26/18 18:00 07/26/18 17:59 06/28/18 09:22 Metoprolol Tartrate (Lopressor) 5 mg Q6H PRN IVP HR > 125 06/26/18 18:00 07/16/18 17:59 Ondansetron HCl (Zofran) 4 mg Q6H PRN IVP Nausea & Vomiting 06/26/18 14:00 07/16/18 13:59 Vancomycin HCl (Firvanq) 125 mg FOUR TIMES A DAY NG 06/26/18 18:00 06/28/18 23:59 06/28/18 09:22 aNtty Hernandes M.D. Jun 28, 2018 12:49
[2018-06-28 13:01] LABS: INR 1.1 (0.9-1.1)
--- NOTE | 2018-06-28 14:24 | NUR ---
RD ASSESSMENT & RECOMMENDATIONS SEE CARE ACTIVITY FOR COMPLETE ASSESSMENT DAILY ESTIMATED NEEDS: Needs based on Pulmonary, ARF (NO HD), Critical care/ 54kg 22-28 kcals/kg 1469-6207 total kcals 0.8-1.2 g protein/kg 43-65 g total protein 25-30 mL/kg 3803-3086 total fluid mLs NUTRITION DIAGNOSIS: * Swallowing difficulty R/T dysphagia, respiratory status as evidenced by s/p trach and PEG placement, on GT feeding. * Altered nutrition related lab values R/T clinical condition, prediabetes, ARF, volume deficit? as evidenced by elev Na (149-> now wnl ->47 back up), elev BUN (90 trend up), elev creat (0.9->5.0-> 2.4 trend back down), A1C=5.9, elev BG of 201 upon adm -> 111 137 improved, elev K (6.0*-> now wnl), elev phos (5.9-> now nwl). CURRENT DIET:NPO CURRENT TF:Nepro @ 40ml/hr x 24 hrs ENTERAL NUTRITION RECOMMENDATIONS: Nepro @ 35ml/hr x 24 hrs to provide 840ml, 1512kcal, 68g prot, 610ml free water * Rec decrease goal rate to 35ml/hr x 24 hrs -> meets 100% est kcal/prot needs * HOB over 30 degrees * Increase water flushes- Na and BUN trending up ADDITIONAL RECOMMENDATIONS: * CALIBRATED bedscale wt for accurate CBW- w/ added SPR mattress+ pump * Monitor renal fxn, need to continue renal TF formula - renal fxn improving at this time w/ K and phos wnl * Monitor lytes closely * Monitor BGs, need for SSI/hypoglycemic agents * Consider increasing water flushes- Na and BUN trend up .
--- NOTE | 2018-06-28 14:58 | Cardiology Progress Note ---
Assessment/Plan Assessment/Plan COPD, congestive heart failure, atrial fibrillation sinus tachy agitation right lung collapse? anemia pleural effusion respirator failure tachy acute on chronic renal failure pleural effusion tele sinus vent support abx pulm rxn beta evelyn iv or via ngt prn amiod to 200 qd hemodynamically stable at the moment bp is ok cr abn s/p trach and peg havign thoracentesis shortly cxr personally reviewed form today Subjective ROS Limited/Unobtainable: Yes Subjective in sdu on vent in isolation Objective Last 24 Hour Vital Signs Date Time Temp Pulse Resp B/P (MAP) Pulse Ox O2 Delivery O2 Flow Rate FiO2 06/28/18 13:22 81 16 99 Mechanical Ventilator 35 06/28/18 13:17 89 16 35 06/28/18 13:16 90 16 99 Mechanical Ventilator 35 06/28/18 12:00 Mechanical Ventilator Mechanical Ventilator 06/28/18 12:00 35 06/28/18 12:00 98.8 85 16 139/60 (86) 97 06/28/18 11:11 83 16 35 06/28/18 09:45 77 16 99 Mechanical Ventilator 35 06/28/18 09:35 96 16 97 Mechanical Ventilator 35 06/28/18 09:21 91 139/60 06/28/18 09:05 96 16 35 06/28/18 08:00 98.5 91 19 139/60 (86) 96 06/28/18 08:00 79 06/28/18 08:00 Mechanical Ventilator Mechanical Ventilator 06/28/18 08:00 35 06/28/18 07:00 70 16 35 06/28/18 05:22 83 16 98 Mechanical Ventilator 35 06/28/18 05:16 76 16 35 06/28/18 05:12 78 16 96 Mechanical Ventilator 35 06/28/18 04:00 98.2 90 16 147/71 (96) 95 06/28/18 04:00 35 06/28/18 04:00 Mechanical Ventilator Mechanical Ventilator 06/28/18 04:00 84 06/28/18 03:30 76 16 35 06/28/18 01:52 79 16 98 Mechanical Ventilator 35 06/28/18 01:42 73 16 95 Mechanical Ventilator 35 06/28/18 00:48 78 16 35 06/28/18 00:00 Mechanical Ventilator Mechanical Ventilator 06/28/18 00:00 98.1 79 16 119/51 (73) 95 2/25/19 23:07 78 16 35 06/27/18 20:49 82 16 35 06/27/18 20:33 80 16 98 Mechanical Ventilator 35 06/27/18 20:21 83 17 97 Mechanical Ventilator 35 06/27/18 20:00 Mechanical Ventilator Mechanical Ventilator 06/27/18 20:00 98.8 83 16 118/54 (75) 96 06/27/18 20:00 35 06/27/18 20:00 83 06/27/18 19:18 83 16 35 06/27/18 17:26 87 16 35 06/27/18 16:16 94 16 100 Mechanical Ventilator 35 06/27/18 16:00 98.7 90 13 148/70 (96) 99 06/27/18 16:00 Mechanical Ventilator Mechanical Ventilator 06/27/18 16:00 35 06/27/18 16:00 99 06/27/18 15:58 97 17 97 Mechanical Ventilator 35 06/27/18 15:57 97 18 35 General Appearance: agitated, on vent, patient on isolation Extremities: no swelling Intake and Output 06/27/18 06/28/18 19:00 07:00 Intake Total 180 ml 590 ml Output Total 270 ml 400 ml Balance -90 ml 190 ml Free Water 100 ml 110 ml Tube Feeding 80 ml 480 ml Output Urine Total 120 ml 400 ml Stool Total 150 ml Laboratory Tests Test 06/28/18 04:00 06/28/18 09:23 06/28/18 12:20 White Blood Count 9.7 K/UL (4.8-10.8) Red Blood Count 3.14 M/UL (4.20-5.40) L Hemoglobin 7.0 G/DL (12.0-16.0) L Hematocrit 23.1 % (37.0-47.0) L Mean Corpuscular Volume 73 FL (80-99) L Mean Corpuscular Hemoglobin 22.4 PG (27.0-31.0) L Mean Corpuscular Hemoglobin Concent 30.5 G/DL (32.0-36.0) L Red Cell Distribution Width 17.6 % (11.6-14.8) H Platelet Count 196 K/UL (150-450) Mean Platelet Volume 6.6 FL (6.5-10.1) Neutrophils (%) (Auto) % (45.0-75.0) Lymphocytes (%) (Auto) % (20.0-45.0) Monocytes (%) (Auto) % (1.0-10.0) Eosinophils (%) (Auto) % (0.0-3.0) Basophils (%) (Auto) % (0.0-2.0) Differential Total Cells Counted 100 Neutrophils % (Manual) 77 % (45-75) H Lymphocytes % (Manual) 12 % (20-45) L Monocytes % (Manual) 5 % (1-10) Eosinophils % (Manual) 6 % (0-3) H Basophils % (Manual) 0 % (0-2) Band Neutrophils 0 % (0-8) Platelet Estimate Adequate Platelet Morphology Normal Hypochromasia 3+ Anisocytosis 2+ Microcytosis 3+ Sodium Level 147 MMOL/L (136-145) H Potassium Level 3.8 MMOL/L (3.5-5.1) Chloride Level 106 MMOL/L (98-107) Carbon Dioxide Level 36 MMOL/L (21-32) H Anion Gap 5 mmol/L (5-15) Blood Urea Nitrogen 90 mg/dL (7-18) H Creatinine 2.4 MG/DL (0.55-1.30) H Estimat Glomerular Filtration Rate mL/min (>60) Glucose Level 111 MG/DL (74-106) H Calcium Level 9.8 MG/DL (8.5-10.1) Total Bilirubin 0.2 MG/DL (0.2-1.0) Aspartate Amino Transf (AST/SGOT) 11 U/L (15-37) L Alanine Aminotransferase (ALT/SGPT) 15 U/L (12-78) Alkaline Phosphatase 91 U/L (46-116) Total Protein 6.2 G/DL (6.4-8.2) L Albumin 2.2 G/DL (3.4-5.0) L Globulin 4.0 g/dL Albumin/Globulin Ratio 0.6 (1.0-2.7) L Arterial Blood pH 7.434 (7.350-7.450) Arterial Blood Partial Pressure CO2 58.1 mmHg (35.0-45.0) *H Arterial Blood Partial Pressure O2 83.6 mmHg (75.0-100.0) Arterial Blood HCO3 38.0 mmol/L (22.0-26.0) H Arterial Blood Oxygen Saturation 95.3 % (95-100) Arterial Blood Base Excess 12.2 (-2-2) *H David Test Positive Prothrombin Time 11.4 SEC (9.30-11.50) Prothromb Time International Ratio 1.1 (0.9-1.1) Activated Partial Thromboplast Time 28 SEC (23-33) Geoffrey Sandhu MD Jun 28, 2018 14:58
--- NOTE | 2018-06-28 15:57 | General Progress Note ---
Assessment/Plan Assessment/Plan Assessment - Resp failure - s/p PEG - C DIff diarrhea - COPD - CHF - PNA - Anemia Recommendations - GT feeds - Vent care - Elevated HOB - Monitor residuals - Pulmonary toilet - Vanco PO Subjective Allergies: Coded Allergies: Mushroom (Verified Allergy, Severe, 05/28/18) MORPHINE (Unverified Allergy, Intermediate, Itching, 01/04/15) PENICILLINS (Unverified Allergy, Intermediate, Hives, 06/25/18) Tolerates cephalosporins and carbapenems CELECOXIB (Verified Allergy, Mild, 01/15/09) Subjective Seen in [place] tolerating TF no event overnight Objective Last 24 Hour Vital Signs Date Time Temp Pulse Resp B/P (MAP) Pulse Ox O2 Delivery O2 Flow Rate FiO2 06/28/18 13:22 81 16 99 Mechanical Ventilator 35 06/28/18 13:17 89 16 35 06/28/18 13:16 90 16 99 Mechanical Ventilator 35 06/28/18 12:00 Mechanical Ventilator Mechanical Ventilator 06/28/18 12:00 35 06/28/18 12:00 98.8 85 16 139/60 (86) 97 06/28/18 12:00 83 06/28/18 11:11 83 16 35 06/28/18 09:45 77 16 99 Mechanical Ventilator 35 06/28/18 09:35 96 16 97 Mechanical Ventilator 35 06/28/18 09:21 91 139/60 06/28/18 09:05 96 16 35 06/28/18 08:00 98.5 91 19 139/60 (86) 96 06/28/18 08:00 79 06/28/18 08:00 Mechanical Ventilator Mechanical Ventilator 06/28/18 08:00 35 06/28/18 07:00 70 16 35 06/28/18 05:22 83 16 98 Mechanical Ventilator 35 06/28/18 05:16 76 16 35 06/28/18 05:12 78 16 96 Mechanical Ventilator 35 06/28/18 04:00 98.2 90 16 147/71 (96) 95 06/28/18 04:00 35 06/28/18 04:00 Mechanical Ventilator Mechanical Ventilator 06/28/18 04:00 84 06/28/18 03:30 76 16 35 06/28/18 01:52 79 16 98 Mechanical Ventilator 35 06/28/18 01:42 73 16 95 Mechanical Ventilator 35 06/28/18 00:48 78 16 35 06/28/18 00:00 Mechanical Ventilator Mechanical Ventilator 06/28/18 00:00 98.1 79 16 119/51 (73) 95 06/27/18 23:07 78 16 35 06/27/18 20:49 82 16 35 06/27/18 20:33 80 16 98 Mechanical Ventilator 35 06/27/18 20:21 83 17 97 Mechanical Ventilator 35 06/27/18 20:00 Mechanical Ventilator Mechanical Ventilator 06/27/18 20:00 98.8 83 16 118/54 (75) 96 06/27/18 20:00 35 06/27/18 20:00 83 06/27/18 19:18 83 16 35 06/27/18 17:26 87 16 35 06/27/18 16:16 94 16 100 Mechanical Ventilator 35 06/27/18 16:00 98.7 90 13 148/70 (96) 99 06/27/18 16:00 Mechanical Ventilator Mechanical Ventilator 06/27/18 16:00 35 06/27/18 16:00 99 06/27/18 15:58 97 17 97 Mechanical Ventilator 35 06/27/18 15:57 97 18 35 Intake and Output 06/27/18 06/28/18 19:00 07:00 Intake Total 180 ml 590 ml Output Total 270 ml 400 ml Balance -90 ml 190 ml Free Water 100 ml 110 ml Tube Feeding 80 ml 480 ml Output Urine Total 120 ml 400 ml Stool Total 150 ml Laboratory Tests 06/28/18 04:00: White Blood Count 9.7, Red Blood Count 3.14L, Hemoglobin 7.0L, Hematocrit 23.1L , Mean Corpuscular Volume 73L, Mean Corpuscular Hemoglobin 22.4L, Mean Corpuscular Hemoglobin Concent 30.5L, Red Cell Distribution Width 17.6H, Platelet Count 196, Mean Platelet Volume 6.6, Neutrophils (%) (Auto) , Lymphocytes (%) (Auto) , Monocytes (%) (Auto) , Eosinophils (%) (Auto) , Basophils (%) (Auto) , Differential Total Cells Counted 100, Neutrophils % ( Manual) 77H, Lymphocytes % (Manual) 12L, Monocytes % (Manual) 5, Eosinophils % ( Manual) 6H, Basophils % (Manual) 0, Band Neutrophils 0, Platelet Estimate Adequate, Platelet Morphology Normal, Hypochromasia 3+, Anisocytosis 2+, Microcytosis 3+, Sodium Level 147H, Potassium Level 3.8, Chloride Level 106, Carbon Dioxide Level 36H, Anion Gap 5, Blood Urea Nitrogen 90H, Creatinine 2.4H , Estimat Glomerular Filtration Rate , Glucose Level 111H, Calcium Level 9.8, Total Bilirubin 0.2, Aspartate Amino Transf (AST/SGOT) 11L, Alanine Aminotransferase (ALT/SGPT) 15, Alkaline Phosphatase 91, Total Protein 6.2L, Albumin 2.2L, Globulin 4.0, Albumin/Globulin Ratio 0.6L 06/28/18 09:23: Arterial Blood pH 7.434, Arterial Blood Partial Pressure CO2 58.1*H, Arterial Blood Partial Pressure O2 83.6, Arterial Blood HCO3 38.0H, Arterial Blood Oxygen Saturation 95.3, Arterial Blood Base Excess 12.2*H, David Test Positive 06/28/18 12:20: Prothrombin Time 11.4, Prothromb Time International Ratio 1.1, Activated Partial Thromboplast Time 28 Height (Feet): 5 Height (Inches): 4.00 Weight (Pounds): 115 Objective Elderly WW NCAT, (+) NGT, (+)ETT Supple CTA RRR Soft, NT, ND No edema restrained Panchito Rahman MD Jun 28, 2018 15:57
[2018-06-28 16:00] VITALS: BP 146/69
--- NOTE | 2018-06-28 16:16 | Brief Operative Note ---
Immediate Post Operative Note Operative Note Chief Complaint: SOB Pre-op Diagnosis: Pleural effusion Post-op Diagnosis: Pleural effusion Post-op Diagnosis: same as pre-op Findings: consistent w/pre-op dx studies Surgeon: Alisa STAFFORD Anesthesia: local Specimen: yes - yellow fluid sent to lab Complications: none Condition: stable Fluids: none Implant(s) used?: No Lj Stafford MD Jun 28, 2018 16:16
--- NOTE | 2018-06-28 16:17 | Pre-Procedure Note/Attestation ---
Pre-Procedure Note/Attestation Complete Prior to Procedure Planned Procedure: right Procedure Narrative: Thoracentesis Indications for Procedure Pre-Operative Diagnosis: Pleural effusion Attestation I attest that I discussed the nature of the procedure; its benefits; risks and complications; and alternatives (and the risks and benefits of such alternatives ), prior to the procedure, with the patient (or the patient's legal billing customer service representative). I attest that, if there was a reasonable possibility of needing a blood transfusion, the patient (or the patient's legal billing customer service representative) was given the [facility] standardized written summary, pursuant to the Seraf[place] Blood Safety Act ([place] Health and Safety Code # 1645, as amended). I attest that I re-evaluated the patient just prior to the surgery and that there has been no change in the patient's H&P, except as documented below: Discussed with son by phone at 1500 on 06/28/2018 Lj Stafford MD Jun 28, 2018 16:17
--- NOTE | 2018-06-28 16:36 | Diagnostic Imaging Report ---
Indications: Pleural effusion Technique: Ultrasound used to localize optimal puncture site. Sterile prepping and draping right chest. Local anesthesia with 1% lidocaine. Under real-time ultrasound guidance, puncture pleural space using thoracentesis needle. Stylet removed. Catheter placed to vacuum bottle suction. Total 600 milliliters of clear yellow fluid aspirated. Patient tolerated procedure well, without immediate complication. Findings: Followup sonography demonstrates complete resolution of pleural fluid. Impression: Successful ultrasound-guided thoracentesis, yielding 600 milliliters of fluid
--- NOTE | 2018-06-28 16:38 | Diagnostic Imaging Report ---
Indication: Post thoracentesis Technique: One view of the chest Comparison: 7 hours earlier Findings: Interim resolution of previously demonstrated right-sided pleural effusion, status post thoracentesis. No pneumothorax There is minimal pleural fluid evident on the left, less conspicuous than on the previous exam however. Previously demonstrated interstitial congestive changes are again noted. Tracheostomy, right arm PICC remain Impression: Resolved right pleural effusion, post thoracentesis. No radiographically evident complication
[2018-06-28] MEDS: Amiodarone 200mg tab GT SCH (17:17)
--- NOTE | 2018-06-28 19:12 | NUR ---
HAND-OFF: Report given to Ar Mesa RN. Pt in stable condition.NURSE NOTES:
--- NOTE | 2018-06-28 19:15 | NUR ---
NURSE NOTES: Report received from MARGY Paz. Observed pt sleeping on the bed. SR with take out waiter. Trac to vent, Shiley 8, AC 16, TD 400, PEEP 5, FIO2 35%, saturating at 99%. Gt site covered with abd pad, intact, running Nepro @ 40cc/hr. F/C intact and draining well. Rectal tube intact. PICC at [facility]. Bed in the lowest position. Side rails up x3. Will continue to monitor.
[2018-06-28 20:00] VITALS: BP 146/86
[2018-06-28] MEDS: Dyna-Hex 2% Top Sol 2oz TOPIC SCH (21:10)
--- NOTE | 2018-06-28 21:54 | Nephrology Progress Note ---
Assessment/Plan Problem List: (1) Acute renal failure Assessment: Cr lowering (2) Anuria (3) Acute respiratory failure Assessment: on vent (4) Dementia (5) Afib Assessment Cr lowering Urine out put rising Cr lowering other conditions: (1) Acute respiratory failure (2) Aspiration pneumonia (3) Acute encephalopathy (4) Pleural effusion (5) COPD (chronic obstructive pulmonary disease) (6) CAD (coronary artery disease) (7) Dementia Plan Mag So4 ordered Now trached and Pegged Cr lowering- Urine out put higher monitor vanco level family agree with HD . but no need for HD at this time K and Phos and Mag as needed Anemia porter Adjust BP meds fu Lytes Gastric support per orders Subjective ROS Limited/Unobtainable: Yes Objective Objective Last 24 Hour Vital Signs Date Time Temp Pulse Resp B/P (MAP) Pulse Ox O2 Delivery O2 Flow Rate FiO2 06/28/18 20:50 73 16 35 06/28/18 20:00 Mechanical Ventilator Mechanical Ventilator 06/28/18 20:00 35 06/28/18 20:00 99.1 76 16 146/86 (106) 97 06/28/18 20:00 76 06/28/18 19:10 85 16 98 Mechanical Ventilator 35 06/28/18 19:03 81 16 35 06/28/18 18:59 81 16 98 Mechanical Ventilator 35 06/28/18 17:06 86 17 35 06/28/18 16:00 92 06/28/18 16:00 99.1 94 19 146/69 (94) 96 06/28/18 16:00 Mechanical Ventilator Mechanical Ventilator 06/28/18 16:00 35 06/28/18 15:00 Mechanical Ventilator 35 06/28/18 15:00 90 17 35 06/28/18 13:22 81 16 99 Mechanical Ventilator 35 06/28/18 13:17 89 16 35 06/28/18 13:16 90 16 99 Mechanical Ventilator 35 06/28/18 13:00 Mechanical Ventilator 35 06/28/18 12:00 Mechanical Ventilator Mechanical Ventilator 06/28/18 12:00 35 06/28/18 12:00 98.8 85 16 139/60 (86) 97 06/28/18 12:00 83 06/28/18 11:11 83 16 35 06/28/18 09:45 77 16 99 Mechanical Ventilator 35 06/28/18 09:35 96 16 97 Mechanical Ventilator 35 06/28/18 09:21 91 139/60 06/28/18 09:05 96 16 35 06/28/18 08:00 98.5 91 19 139/60 (86) 96 06/28/18 08:00 79 06/28/18 08:00 Mechanical Ventilator Mechanical Ventilator 06/28/18 08:00 35 06/28/18 07:00 70 16 35 06/28/18 05:22 83 16 98 Mechanical Ventilator 35 06/28/18 05:16 76 16 35 06/28/18 05:12 78 16 96 Mechanical Ventilator 35 06/28/18 04:00 98.2 90 16 147/71 (96) 95 06/28/18 04:00 35 06/28/18 04:00 Mechanical Ventilator Mechanical Ventilator 06/28/18 04:00 84 06/28/18 03:30 76 16 35 06/28/18 01:52 79 16 98 Mechanical Ventilator 35 06/28/18 01:42 73 16 95 Mechanical Ventilator 35 06/28/18 00:48 78 16 35 06/28/18 00:00 Mechanical Ventilator Mechanical Ventilator 06/28/18 00:00 98.1 79 16 119/51 (73) 95 06/27/18 23:07 78 16 35 Intake and Output 06/27/18 06/28/18 18:59 06:59 Intake Total 180 ml 590 ml Output Total 310 ml 400 ml Balance -130 ml 190 ml Free Water 100 ml 110 ml Tube Feeding 80 ml 480 ml Output Urine Total 160 ml 400 ml Stool Total 150 ml # Bowel Movements 50 Laboratory Tests 06/28/18 04:00: White Blood Count 9.7, Red Blood Count 3.14L, Hemoglobin 7.0L, Hematocrit 23.1L , Mean Corpuscular Volume 73L, Mean Corpuscular Hemoglobin 22.4L, Mean Corpuscular Hemoglobin Concent 30.5L, Red Cell Distribution Width 17.6H, Platelet Count 196, Mean Platelet Volume 6.6, Neutrophils (%) (Auto) , Lymphocytes (%) (Auto) , Monocytes (%) (Auto) , Eosinophils (%) (Auto) , Basophils (%) (Auto) , Differential Total Cells Counted 100, Neutrophils % ( Manual) 77H, Lymphocytes % (Manual) 12L, Monocytes % (Manual) 5, Eosinophils % ( Manual) 6H, Basophils % (Manual) 0, Band Neutrophils 0, Platelet Estimate Adequate, Platelet Morphology Normal, Hypochromasia 3+, Anisocytosis 2+, Microcytosis 3+, Sodium Level 147H, Potassium Level 3.8, Chloride Level 106, Carbon Dioxide Level 36H, Anion Gap 5, Blood Urea Nitrogen 90H, Creatinine 2.4H , Estimat Glomerular Filtration Rate , Glucose Level 111H, Calcium Level 9.8, Total Bilirubin 0.2, Aspartate Amino Transf (AST/SGOT) 11L, Alanine Aminotransferase (ALT/SGPT) 15, Alkaline Phosphatase 91, Total Protein 6.2L, Albumin 2.2L, Globulin 4.0, Albumin/Globulin Ratio 0.6L 06/28/18 09:23: Arterial Blood pH 7.434, Arterial Blood Partial Pressure CO2 58.1*H, Arterial Blood Partial Pressure O2 83.6, Arterial Blood HCO3 38.0H, Arterial Blood Oxygen Saturation 95.3, Arterial Blood Base Excess 12.2*H, David Test Positive 06/28/18 12:20: Prothrombin Time 11.4, Prothromb Time International Ratio 1.1, Activated Partial Thromboplast Time 28 06/28/18 16:30: Body Fluid Glucose [Pending], Body Fluid Total Protein [Pending], Body Fluid Lactate Dehydrogenase [Pending] Height (Feet): 5 Height (Inches): 4.00 Weight (Pounds): 115 EENT: other - trach Cardiovascular: normal rate Respiratory/Chest: decreased breath sounds Abdomen: distended Objective no change Kendrick Jimenez MD Jun 28, 2018 21:54
[2018-06-29] VITALS: BP 141/60
[2018-06-29] MEDS: Albuterol/Ipratropium 3ml neb HHN PRN ×6 (03:05→23:01)
[2018-06-29 04:00] VITALS: BP 160/81
--- NOTE | 2018-06-29 04:30 | NUR ---
NURSE NOTES: Pt appears agitated and keeps trying to get out of the bed. Reposition done and turn the television on to distract. Will continue to monitor.
[2018-06-29 06:16] LABS: BASOPHILS % (AUTO) 0.6 % (0.0-2.0); EOSINOPHILS % (AUTO) 6.4 % (0.0-3.0); HEMATOCRIT 26.4 % (37.0-47.0); HEMOGLOBIN 8.2 G/DL (12.0-16.0); LYMPHOCYTES % (AUTO) 18.1 % (20.0-45.0); MEAN CORPUSCULAR VOLUME 76 FL (80-99); MONOCYTES % (AUTO) 5.1 % (1.0-10.0); NEUTROPHILS % (AUTO) 69.8 % (45.0-75.0); PLATELET COUNT 207 K/UL (150-450); RED BLOOD COUNT 3.48 M/UL (4.20-5.40); RED CELL DISTRIBUTION WIDTH 17.7 % (11.6-14.8); WHITE BLOOD COUNT 10.4 K/UL (4.8-10.8)
--- NOTE | 2018-06-29 07:30 | NUR ---
HAND-OFF: Report given to MARGY Paz.
--- NOTE | 2018-06-29 07:44 | NUR ---
NURSE NOTES: Received pt from Ar [place] RN. Pt is awake and calm. No cardiopulmonary distress noted. Pt is trach to vent. Shiley 8 ac 16 TV 400 FiO2 35% Peep 5 SaO2 93%. Pt is on GT feeding Nepro running at 40 cc/hr and no residuals noted. Pt is on bilat soft wrist restrains. Wrist skin intact and radial pulses present. F/C noted draining yellow urine. Rectal Tube noted draining. Skin alterations noted. MILY PICC line noted. Bed in lowest position. Side rails up x 3. Call light within reach. Will continue to monitor.
[2018-06-29 08:00] VITALS: BP 141/89
[2018-06-29] MEDS: Lactobacillus-GG tablet GT SCH ×2 (08:46→17:07)
--- NOTE | 2018-06-29 09:45 | NUR ---
Dr De Souza and RT personnel present with pt. Vent settings changed to CPAP with 35% FiO2 Peep 5 and PS 12 for [address] De Souza's order. ABG will be withdrawn after trial and assessed. If pt tolerates current vent settings, will continue current settings with PS 8.
[2018-06-29] MEDS: Vancomycin oral 125mg/2.5ml ORAL SCH ×4 (10:11→20:08)
--- NOTE | 2018-06-29 10:20 | Pulmonology Progress Note ---
Assessment/Plan Assessment/Plan Problem List: 1. Acute on chronic hypercapnic respiratory failure -intubated 06/02; extubated 06/10 -reintubated 06/17 -trach 06/23 shiley 8 2. R lung collapse, mucous plugging - resolved 3. Pulmonary edema 4. chronic obstructive asthma 5. Pneumonia 6. Hx afib 7. MRSA pna, recurrent fever and increased leukocytosis 8. ESBL E.coli pna 9. C.diff colitis 10. Pleural effusion -06/28 R thoracentesis; 600 cc Plan: -cont mechanical ventilatory support; lower tidal volume to 350 cc -PS trial now at PS 12 and ABG after 45 min, if tolerates PS 10 as tolerated , back to vent overnight -f/u pleural fluid studies -aggressive pulmonary hygiene with duonebs/mucomyst/suctioning q4 -monitor volumes -monitor renal function -abx per ID -PEG done -seroquel 12.5 mg qhs d/c planning LTACH Subjective ROS Limited/Unobtainable: Yes Interval Events: 600 cc R thoracentesis done today. Arousable, gets agitated mildly. Allergies: Coded Allergies: Mushroom (Verified Allergy, Severe, 05/28/18) MORPHINE (Unverified Allergy, Intermediate, Itching, 01/04/15) PENICILLINS (Unverified Allergy, Intermediate, Hives, 06/25/18) Tolerates cephalosporins and carbapenems CELECOXIB (Verified Allergy, Mild, 01/15/09) Objective Last 24 Hour Vital Signs Date Time Temp Pulse Resp B/P (MAP) Pulse Ox O2 Delivery O2 Flow Rate FiO2 06/29/18 09:50 35 06/29/18 09:50 94 28 35 06/29/18 08:45 83 141/89 06/29/18 08:00 81 06/29/18 08:00 Mechanical Ventilator Mechanical Ventilator 06/29/18 08:00 98.4 83 16 141/89 (106) 93 06/29/18 08:00 35 06/29/18 07:30 84 16 96 Mechanical Ventilator 35 06/29/18 07:15 76 16 96 Mechanical Ventilator 35 06/29/18 07:15 76 16 35 06/29/18 04:48 91 22 35 06/29/18 04:00 35 06/29/18 04:00 99.2 92 22 160/81 (107) 97 06/29/18 04:00 79 06/29/18 04:00 Mechanical Ventilator Mechanical Ventilator 06/29/18 03:16 87 16 98 Mechanical Ventilator 35 06/29/18 03:05 82 16 97 Mechanical Ventilator 35 06/29/18 03:03 82 19 35 06/29/18 01:01 83 17 35 06/29/18 00:00 93 06/29/18 00:00 Mechanical Ventilator Mechanical Ventilator 06/29/18 00:00 99.1 91 17 141/60 (87) 95 06/28/18 23:10 90 18 99 Mechanical Ventilator 35 06/28/18 23:00 90 18 35 06/28/18 22:59 93 21 98 Mechanical Ventilator 35 06/28/18 20:50 73 16 35 06/28/18 20:00 Mechanical Ventilator Mechanical Ventilator 06/28/18 20:00 35 06/28/18 20:00 99.1 76 16 146/86 (106) 97 06/28/18 20:00 76 06/28/18 19:10 85 16 98 Mechanical Ventilator 35 06/28/18 19:03 81 16 35 06/28/18 18:59 81 16 98 Mechanical Ventilator 35 06/28/18 17:06 86 17 35 06/28/18 16:00 92 06/28/18 16:00 99.1 94 19 146/69 (94) 96 06/28/18 16:00 Mechanical Ventilator Mechanical Ventilator 06/28/18 16:00 35 06/28/18 15:00 Mechanical Ventilator 35 06/28/18 15:00 90 17 35 06/28/18 13:22 81 16 99 Mechanical Ventilator 35 06/28/18 13:17 89 16 35 06/28/18 13:16 90 16 99 Mechanical Ventilator 35 06/28/18 13:00 Mechanical Ventilator 35 06/28/18 12:00 Mechanical Ventilator Mechanical Ventilator 06/28/18 12:00 35 06/28/18 12:00 98.8 85 16 139/60 (86) 97 06/28/18 12:00 83 06/28/18 11:11 83 16 35 Intake and Output 06/28/18 06/29/18 19:00 07:00 Intake Total 640 ml 530 ml Output Total 1200 ml 675 ml Balance -560 ml -145 ml Free Water 160 ml 90 ml Tube Feeding 480 ml 440 ml Output Urine Total 500 ml 600 ml Stool Total 100 ml 75 ml Other 600 ml General Appearance: no acute distress HEENT: normocephalic, atraumatic Respiratory/Chest: other - coarse breath sounds Cardiovascular: regular rhythm Abdomen: soft, non tender Extremities: no edema Laboratory Tests 06/28/18 12:20: Prothrombin Time 11.4, Prothromb Time International Ratio 1.1, Activated Partial Thromboplast Time 28 06/28/18 16:30: Body Fluid Glucose [Pending], Body Fluid Total Protein [Pending], Body Fluid Lactate Dehydrogenase [Pending] 06/29/18 04:30: White Blood Count 10.4, Red Blood Count 3.48L, Hemoglobin 8.2L, Hematocrit 26.4L , Mean Corpuscular Volume 76L, Mean Corpuscular Hemoglobin 23.5L, Mean Corpuscular Hemoglobin Concent 31.0L, Red Cell Distribution Width 17.7H, Platelet Count 207, Mean Platelet Volume 6.8, Neutrophils (%) (Auto) 69.8, Lymphocytes (%) (Auto) 18.1L, Monocytes (%) (Auto) 5.1, Eosinophils (%) (Auto) 6.4H, Basophils (%) (Auto) 0.6, Lactate Dehydrogenase 203, Total Protein 6.4 Current Medications Medications (Trade) Dose Ordered Sig/Ann Route PRN Reason Start Time Stop Time Status Last Admin Dose Admin Acetaminophen (Tylenol) 650 mg Q4H PRN ORAL Mild Pain/Temp > 100.5 06/26/18 15:30 07/16/18 19:18 06/27/18 17:06 Acetaminophen/ Hydrocodone Bitart ([place] 5/325) 1 tab Q6H PRN ORAL Moderate Pain (Pain Scale 4-6) 06/26/18 14:00 07/01/18 13:59 Acetylcysteine (Mucomyst) 100 mg Q4HRT HHN 06/26/18 15:00 07/09/18 10:59 06/29/18 07:14 Albuterol/ Ipratropium (Albuterol/ Ipratropium) 3 ml Q4H PRN HHN Shortness of Breath 06/26/18 15:30 07/01/18 11:29 06/29/18 07:15 Amiodarone HCl (Cordarone) 200 mg DAILY@1800 GT 06/26/18 18:00 07/24/18 17:59 06/28/18 17:17 Amlodipine Besylate (Norvasc) 2.5 mg DAILY ORAL 06/27/18 09:00 07/25/18 08:59 06/29/18 08:45 Chlorhexidine Gluconate (Myra-Hex 2%) 1 applic DAILY@2000 TOPIC 06/26/18 20:00 07/02/18 19:59 06/28/18 21:10 Lactobacillus Acidophilus (Culturelle) 1 tab TWICE A DAY GT 06/26/18 18:00 07/22/18 17:59 06/29/18 08:46 Lansoprazole (Prevacid) 30 mg BID GT 06/26/18 18:00 07/26/18 17:59 06/29/18 08:45 Metoprolol Tartrate (Lopressor) 5 mg Q6H PRN IVP HR > 125 06/26/18 18:00 07/16/18 17:59 Ondansetron HCl (Zofran) 4 mg Q6H PRN IVP Nausea & Vomiting 06/26/18 14:00 07/16/18 13:59 Vancomycin HCl (Firvanq) 125 mg FOUR TIMES A DAY ORAL 06/29/18 10:00 07/03/18 09:59 06/29/18 10:11 Varinder De Souza MD Jun 29, 2018 10:20
--- NOTE | 2018-06-29 10:26 | General Progress Note ---
Assessment/Plan Status: progressing Assessment/Plan This is an 87-year-old female admitted with chronic obstructive pulmonary disease exacerbation, right lower lobe infiltrate/pneumonia with altered mental status and acute kidney injury. The patient will be admitted to [facility] with the following medical problems. 1. Chronic obstructive pulmonary disease exacerbation and pneumonia. The patient has been seen by Pulmonary. Infectious Disease has been consulted, pancultured. IV antibiotics per ID. Continue with BiPAP and suction p.r.n. Transition to Venturi-mask when stable. 2. Acute kidney injury. We will monitor I's and O's, gentle intravenous fluids. Repeat a BMP in a.m. Consider Nephrology consult. 3. History of chronic atrial fibrillation. Continue with amiodarone. The patient is in sinus rhythm at this time. 4. History of hypertension. Continue with amlodipine and hold for systolic blood pressure less than 110. 5. Altered mental status, most likely from above conditions. We will keep n.p.o. except for medications and start IV fluids. 6. DVT prophylaxis with heparin subcutaneous and SCDs. 7. The patient is Full Code per policy. We will discuss with the family. 8. hypokalmia 9. Anemia 10. CHf acute on chronic 11. leucocytosis 12. ARF? ATN 13. C dif positive 14. hyperkalemia 15. pleural effusion 16. S/p Tracheostomy 06/22/18 Plan: - continue respiratory support - aggressive pulmonary suction - HD on hold as patient putting out better urine and createnine is improving - antibiotics per ID - on oral vanco - am labs - weaning off vent per pulmonary - Gi prophylaxis with protonix iv 40 mg daily - s/p Kayexalate - norvasc added for better BP cotrol - s/p PEG discussed with nurse Contact isolation for C dif now in [facility] consider spot lasix if ok with cardiology and renal - transfuse one unit of PRBC on 06-28-18 - Cpap trial, ABG will need LTAC possible [facility] Subjective Date patient seen: Jun 29, 2018 Allergies: Coded Allergies: Mushroom (Verified Allergy, Severe, 05/28/18) MORPHINE (Unverified Allergy, Intermediate, Itching, 01/04/15) PENICILLINS (Unverified Allergy, Intermediate, Hives, 06/25/18) Tolerates cephalosporins and carbapenems CELECOXIB (Verified Allergy, Mild, 01/15/09) Subjective patient is now reintubated, in renal failure, HD on hold as making better urine , C dif positive on ngt vanco, s/p tracheostomy. s/p PEG, moved to [facility] on , on Cpap trila, s/p thoracentesis yesterday and transfusion, more alert today per nurse, still with diarrhea Vanco oral ordered by gi Objective Last 24 Hour Vital Signs Date Time Temp Pulse Resp B/P (MAP) Pulse Ox O2 Delivery O2 Flow Rate FiO2 06/29/18 09:50 35 06/29/18 09:50 94 28 35 06/29/18 08:45 83 141/89 06/29/18 08:00 81 06/29/18 08:00 Mechanical Ventilator Mechanical Ventilator 06/29/18 08:00 98.4 83 16 141/89 (106) 93 06/29/18 08:00 35 06/29/18 07:30 84 16 96 Mechanical Ventilator 35 06/29/18 07:15 76 16 96 Mechanical Ventilator 35 06/29/18 07:15 76 16 35 06/29/18 04:48 91 22 35 06/29/18 04:00 35 06/29/18 04:00 99.2 92 22 160/81 (107) 97 06/29/18 04:00 79 06/29/18 04:00 Mechanical Ventilator Mechanical Ventilator 06/29/18 03:16 87 16 98 Mechanical Ventilator 35 06/29/18 03:05 82 16 97 Mechanical Ventilator 35 06/29/18 03:03 82 19 35 06/29/18 01:01 83 17 35 06/29/18 00:00 93 06/29/18 00:00 Mechanical Ventilator Mechanical Ventilator 06/29/18 00:00 99.1 91 17 141/60 (87) 95 06/28/18 23:10 90 18 99 Mechanical Ventilator 35 06/28/18 23:00 90 18 35 06/28/18 22:59 93 21 98 Mechanical Ventilator 35 06/28/18 20:50 73 16 35 06/28/18 20:00 Mechanical Ventilator Mechanical Ventilator 06/28/18 20:00 35 06/28/18 20:00 99.1 76 16 146/86 (106) 97 06/28/18 20:00 76 06/28/18 19:10 85 16 98 Mechanical Ventilator 35 06/28/18 19:03 81 16 35 06/28/18 18:59 81 16 98 Mechanical Ventilator 35 06/28/18 17:06 86 17 35 06/28/18 16:00 92 06/28/18 16:00 99.1 94 19 146/69 (94) 96 06/28/18 16:00 Mechanical Ventilator Mechanical Ventilator 06/28/18 16:00 35 06/28/18 15:00 Mechanical Ventilator 35 06/28/18 15:00 90 17 35 06/28/18 13:22 81 16 99 Mechanical Ventilator 35 06/28/18 13:17 89 16 35 06/28/18 13:16 90 16 99 Mechanical Ventilator 35 06/28/18 13:00 Mechanical Ventilator 35 06/28/18 12:00 Mechanical Ventilator Mechanical Ventilator 06/28/18 12:00 35 06/28/18 12:00 98.8 85 16 139/60 (86) 97 06/28/18 12:00 83 06/28/18 11:11 83 16 35 Intake and Output 06/28/18 06/29/18 19:00 07:00 Intake Total 640 ml 530 ml Output Total 1200 ml 675 ml Balance -560 ml -145 ml Free Water 160 ml 90 ml Tube Feeding 480 ml 440 ml Output Urine Total 500 ml 600 ml Stool Total 100 ml 75 ml Other 600 ml Laboratory Tests 06/28/18 12:20: Prothrombin Time 11.4, Prothromb Time International Ratio 1.1, Activated Partial Thromboplast Time 28 06/28/18 16:30: Body Fluid Glucose [Pending], Body Fluid Total Protein [Pending], Body Fluid Lactate Dehydrogenase [Pending] 06/29/18 04:30: White Blood Count 10.4, Red Blood Count 3.48L, Hemoglobin 8.2L, Hematocrit 26.4L , Mean Corpuscular Volume 76L, Mean Corpuscular Hemoglobin 23.5L, Mean Corpuscular Hemoglobin Concent 31.0L, Red Cell Distribution Width 17.7H, Platelet Count 207, Mean Platelet Volume 6.8, Neutrophils (%) (Auto) 69.8, Lymphocytes (%) (Auto) 18.1L, Monocytes (%) (Auto) 5.1, Eosinophils (%) (Auto) 6.4H, Basophils (%) (Auto) 0.6, Lactate Dehydrogenase 203, Total Protein 6.4 Height (Feet): 5 Height (Inches): 4.00 Weight (Pounds): 119 General Appearance: no apparent distress, alert EENT: PERRL/EOMI, pharynx normal Neck: non-tender, supple Cardiovascular: normal rate, regular rhythm, no gallop/murmur, no JVD Respiratory/Chest: decreased breath sounds Abdomen: non tender, soft, no mass Extremities: non-tender, normal inspection, no calf tenderness Edema: 1+ Arm (L), 1+ Arm (R), 1+ Leg (L), 1+ Leg (R), 1+ Pedal (L), 1+ Pedal ( R), 1+ Generalized Neurologic: alert Skin: warm/dry Lymphatic: normal anterior cervical (L), normal anterior cervical (R), normal posterior cervical (L), normal posterior cervical (R), normal submandibular (L) , normal submandibular (R), normal supraclavicular (L), normal supraclavicular ( R), normal axillary (L), normal axillary (R), normal inguinal (L), normal inguinal (R), normal other Cruz Valderrama MD Jun 29, 2018 10:26
--- NOTE | 2018-06-29 10:30 | NUR ---
Pt did not tolerate CPAP mode. Pt's HR was > 100, RR increased, pt was short of breath and SaO2 decreased to 87%. RT decreased TV to [address] De Souza's request. Pt's SaO2 increased to 95% on AC mode. Will continue to monitor pt.
--- NOTE | 2018-06-29 11:51 | Infectious Diseases Prog Note ---
Assessment/Plan Assessment/Plan 87 yo feamle with PMHx of COPD, HTN, and A.fib sent to the ED from her half-way for SOB. Sepsis;improving - Likely PNA 06/21 CXR: Slightly increased right lung opacity, suspect increasing pleural fluid.Increased retrocardiac consolidation 06/17 CXR: Increasing right lung opacity, likely representing decreasing pleural fluid but may also represent increasing parenchymal consolidation 06/15 CXR: Increasing opacification right hemithorax, likely reflecting increasing pleural fluid but may also reflect increasing pulmonary parenchymal consolidation 06/14 CXR: Diffuse right lung hazy opacity appears similar to the prior exam. 06/12 CXR: : Hazy opacification of the right hemithorax, likely reflecting pleural fluid, is unchanged. 05/28/18 CXR with atalectasis vs consolidation in the right side. 06/01/18 CXR - Extensive right hemithorax opacification UA (-) sputum cx 06/15: MRSA (likely a colonizer at this point), ESBL E.coli Sputum Cx 05/28/18 - MRSA (Inf Neg) Urine legionella (-) Acute respiratory failure s/p intubation 06/16 -s/p trach 06/23 R>L pleural effusion -06/28 SP Successful ultrasound-guided R thoracentesis, yielding 600 milliliters of fluid Cdiff colitis -06/19 Cdif toxin a/b + R lung collapse: -06/16 CXR: Complete opacification of the right hemithorax. Probably due to complete atelectasis of the right lung, with evidence of abrupt occlusion of the right mainstem bronchus. Given findings on prior chest radiographs, there is probably significant component of pleural effusion as well. Positive blood Cx - Likely contaminant BCx 05/28/18 - CoNS BCX 05/30/18 - NGTD Leukocytosis , recurrent mild- SP Fever, SP COPD CAD A. fib s/p PEG 06/24 PLAN -Continue PO Vancomycin #11/ for Cdiff -06/26 SP Ertapenem #6 -06/20 SP Meropenem #5 -06/17 SP IV Vancomycin #21 -06/16 SP Cefepime #20 - Monitor CBC and Temps -f/u cx We will continue to follow Ms. Nowak during this hospitalization. Subjective Allergies: Coded Allergies: Mushroom (Verified Allergy, Severe, 05/28/18) MORPHINE (Unverified Allergy, Intermediate, Itching, 01/04/15) PENICILLINS (Unverified Allergy, Intermediate, Hives, 06/25/18) Tolerates cephalosporins and carbapenems CELECOXIB (Verified Allergy, Mild, 01/15/09) Subjective afebrile no leukocytosis s/p R thoracentesis yesterday Objective Vital Signs Last 24 Hour Vital Signs Date Time Temp Pulse Resp B/P (MAP) Pulse Ox O2 Delivery O2 Flow Rate FiO2 06/29/18 10:33 110 24 35 06/29/18 10:30 35 06/29/18 09:50 35 06/29/18 09:50 94 28 35 06/29/18 08:45 83 141/89 06/29/18 08:00 81 06/29/18 08:00 Mechanical Ventilator Mechanical Ventilator 06/29/18 08:00 98.4 83 16 141/89 (106) 93 06/29/18 08:00 35 06/29/18 07:30 84 16 96 Mechanical Ventilator 35 06/29/18 07:15 76 16 96 Mechanical Ventilator 35 06/29/18 07:15 76 16 35 06/29/18 04:48 91 22 35 06/29/18 04:00 35 06/29/18 04:00 99.2 92 22 160/81 (107) 97 06/29/18 04:00 79 06/29/18 04:00 Mechanical Ventilator Mechanical Ventilator 06/29/18 03:16 87 16 98 Mechanical Ventilator 35 06/29/18 03:05 82 16 97 Mechanical Ventilator 35 06/29/18 03:03 82 19 35 06/29/18 01:01 83 17 35 06/29/18 00:00 93 06/29/18 00:00 Mechanical Ventilator Mechanical Ventilator 06/29/18 00:00 99.1 91 17 141/60 (87) 95 06/28/18 23:10 90 18 99 Mechanical Ventilator 35 06/28/18 23:00 90 18 35 06/28/18 22:59 93 21 98 Mechanical Ventilator 35 06/28/18 20:50 73 16 35 06/28/18 20:00 Mechanical Ventilator Mechanical Ventilator 06/28/18 20:00 35 06/28/18 20:00 99.1 76 16 146/86 (106) 97 06/28/18 20:00 76 06/28/18 19:10 85 16 98 Mechanical Ventilator 35 06/28/18 19:03 81 16 35 06/28/18 18:59 81 16 98 Mechanical Ventilator 35 06/28/18 17:06 86 17 35 06/28/18 16:00 92 06/28/18 16:00 99.1 94 19 146/69 (94) 96 06/28/18 16:00 Mechanical Ventilator Mechanical Ventilator 06/28/18 16:00 35 06/28/18 15:00 Mechanical Ventilator 35 06/28/18 15:00 90 17 35 06/28/18 13:22 81 16 99 Mechanical Ventilator 35 06/28/18 13:17 89 16 35 06/28/18 13:16 90 16 99 Mechanical Ventilator 35 06/28/18 13:00 Mechanical Ventilator 35 06/28/18 12:00 Mechanical Ventilator Mechanical Ventilator 06/28/18 12:00 35 06/28/18 12:00 98.8 85 16 139/60 (86) 97 06/28/18 12:00 83 Height (Feet): 5 Height (Inches): 4.00 Weight (Pounds): 119 Objective General Appearance: no apparent distress, Neck: supple, trach in place Cardiovascular: normal rate Respiratory/Chest: decreased BS at bases Abdomen: normal bowel sounds, non tender, soft; Peg in place rectal tube in place Extremities: trace edema Laboratory Tests Test 06/28/18 12:20 06/28/18 16:30 06/29/18 04:30 06/29/18 10:28 Prothrombin Time 11.4 SEC (9.30-11.50) Prothromb Time International Ratio 1.1 (0.9-1.1) Activated Partial Thromboplast Time 28 SEC (23-33) Body Fluid Glucose 131 mg/dL (.) Body Fluid Total Protein 3.5 g/dL (.) Body Fluid Lactate Dehydrogenase 113 IU/L (.) White Blood Count 10.4 K/UL (4.8-10.8) Red Blood Count 3.48 M/UL (4.20-5.40) L Hemoglobin 8.2 G/DL (12.0-16.0) L Hematocrit 26.4 % (37.0-47.0) L Mean Corpuscular Volume 76 FL (80-99) L Mean Corpuscular Hemoglobin 23.5 PG (27.0-31.0) L Mean Corpuscular Hemoglobin Concent 31.0 G/DL (32.0-36.0) L Red Cell Distribution Width 17.7 % (11.6-14.8) H Platelet Count 207 K/UL (150-450) Mean Platelet Volume 6.8 FL (6.5-10.1) Neutrophils (%) (Auto) 69.8 % (45.0-75.0) Lymphocytes (%) (Auto) 18.1 % (20.0-45.0) L Monocytes (%) (Auto) 5.1 % (1.0-10.0) Eosinophils (%) (Auto) 6.4 % (0.0-3.0) H Basophils (%) (Auto) 0.6 % (0.0-2.0) Lactate Dehydrogenase 203 U/L (81-234) Total Protein 6.4 G/DL (6.4-8.2) Arterial Blood pH 7.304 (7.350-7.450) Arterial Blood Partial Pressure CO2 79.5 mmHg (35.0-45.0) *H Arterial Blood Partial Pressure O2 57.8 mmHg (75.0-100.0) L Arterial Blood HCO3 38.6 mmol/L (22.0-26.0) H Arterial Blood Oxygen Saturation 85.7 % (95-100) *L Arterial Blood Base Excess 9.9 (-2-2) *H David Test Positive Current Medications Medications (Trade) Dose Ordered Sig/Ann Route PRN Reason Start Time Stop Time Status Last Admin Dose Admin Acetaminophen (Tylenol) 650 mg Q4H PRN ORAL Mild Pain/Temp > 100.5 06/26/18 15:30 07/16/18 19:18 06/27/18 17:06 Acetylcysteine (Mucomyst) 100 mg Q4HRT HHN 06/26/18 15:00 07/09/18 10:59 06/29/18 07:14 Albuterol/ Ipratropium (Albuterol/ Ipratropium) 3 ml Q4H PRN HHN Shortness of Breath 06/26/18 15:30 07/01/18 11:29 06/29/18 07:15 Amiodarone HCl (Cordarone) 200 mg DAILY@1800 GT 06/26/18 18:00 07/24/18 17:59 06/28/18 17:17 Amlodipine Besylate (Norvasc) 2.5 mg DAILY ORAL 06/27/18 09:00 07/25/18 08:59 06/29/18 08:45 Chlorhexidine Gluconate (Myra-Hex 2%) 1 applic DAILY@2000 TOPIC 06/26/18 20:00 07/02/18 19:59 06/28/18 21:10 Lactobacillus Acidophilus (Culturelle) 1 tab TWICE A DAY GT 06/26/18 18:00 07/22/18 17:59 06/29/18 08:46 Lansoprazole (Prevacid) 30 mg BID GT 06/26/18 18:00 07/26/18 17:59 06/29/18 08:45 Metoprolol Tartrate (Lopressor) 5 mg Q6H PRN IVP HR > 125 06/26/18 18:00 07/16/18 17:59 Ondansetron HCl (Zofran) 4 mg Q6H PRN IVP Nausea & Vomiting 06/26/18 14:00 07/16/18 13:59 Quetiapine Fumarate (SEROquel) 12.5 mg QHS ORAL 06/29/18 21:00 07/29/18 20:59 Vancomycin HCl (Firvanq) 125 mg FOUR TIMES A DAY ORAL 06/29/18 10:00 07/03/18 09:59 06/29/18 10:11 Natty Hernandes M.D. Jun 29, 2018 11:51
[2018-06-29 12:00] VITALS: BP 148/69
[2018-06-29 12:32] LABS: ALANINE AMINOTRANSFERASE 18 U/L (12-78); ALBUMIN 2.3 G/DL (3.4-5.0); ALBUMIN/GLOBULIN RATIO 0.5 (1.0-2.7); ALKALINE PHOSPHATASE 95 U/L (46-116); ANION GAP 8 mmol/L (5-15); ASPARTATE AMINO TRANSFERASE 17 U/L (15-37); BILIRUBIN,TOTAL 0.2 MG/DL (0.2-1.0); BLOOD UREA NITROGEN 92 mg/dL (7-18); CALCIUM 9.6 MG/DL (8.5-10.1); CARBON DIOXIDE 34 MMOL/L (21-32); CHLORIDE 105 MMOL/L (98-107); CREATININE 2.3 MG/DL (0.55-1.30); POTASSIUM 3.7 MMOL/L (3.5-5.1); SODIUM 147 MMOL/L (136-145)
--- NOTE | 2018-06-29 14:17 | Nephrology Progress Note ---
Assessment/Plan Problem List: (1) Acute renal failure Assessment: Cr lowering (2) Anuria (3) Acute respiratory failure Assessment: on vent (4) Dementia (5) Afib Assessment Cr lowering Urine out put rising Cr lowering other conditions: (1) Acute respiratory failure (2) Aspiration pneumonia (3) Acute encephalopathy (4) Pleural effusion (5) COPD (chronic obstructive pulmonary disease) (6) CAD (coronary artery disease) (7) Dementia Plan Now trached and Pegged Cr lowering- Urine out put higher monitor vanco level family agree with HD . but no need for HD at this time K and Phos and Mag as needed Anemia porter Adjust BP meds fu Lytes Gastric support per orders Subjective ROS Limited/Unobtainable: Yes Objective Objective Last 24 Hour Vital Signs Date Time Temp Pulse Resp B/P (MAP) Pulse Ox O2 Delivery O2 Flow Rate FiO2 06/29/18 13:29 85 18 35 06/29/18 12:09 94 19 95 Mechanical Ventilator 35 06/29/18 12:00 35 06/29/18 12:00 Mechanical Ventilator Mechanical Ventilator 06/29/18 12:00 99.1 96 22 148/69 (95) 96 06/29/18 12:00 100 06/29/18 10:33 110 24 35 06/29/18 10:30 35 06/29/18 09:50 35 06/29/18 09:50 94 28 35 06/29/18 08:45 83 141/89 06/29/18 08:00 81 06/29/18 08:00 Mechanical Ventilator Mechanical Ventilator 06/29/18 08:00 98.4 83 16 141/89 (106) 93 06/29/18 08:00 35 06/29/18 07:30 84 16 96 Mechanical Ventilator 35 06/29/18 07:15 76 16 96 Mechanical Ventilator 35 06/29/18 07:15 76 16 35 06/29/18 04:48 91 22 35 06/29/18 04:00 35 06/29/18 04:00 99.2 92 22 160/81 (107) 97 06/29/18 04:00 79 06/29/18 04:00 Mechanical Ventilator Mechanical Ventilator 06/29/18 03:16 87 16 98 Mechanical Ventilator 35 06/29/18 03:05 82 16 97 Mechanical Ventilator 35 06/29/18 03:03 82 19 35 06/29/18 01:01 83 17 35 06/29/18 00:00 93 06/29/18 00:00 Mechanical Ventilator Mechanical Ventilator 06/29/18 00:00 99.1 91 17 141/60 (87) 95 06/28/18 23:10 90 18 99 Mechanical Ventilator 35 06/28/18 23:00 90 18 35 06/28/18 22:59 93 21 98 Mechanical Ventilator 35 06/28/18 20:50 73 16 35 06/28/18 20:00 Mechanical Ventilator Mechanical Ventilator 06/28/18 20:00 35 06/28/18 20:00 99.1 76 16 146/86 (106) 97 06/28/18 20:00 76 06/28/18 19:10 85 16 98 Mechanical Ventilator 35 06/28/18 19:03 81 16 35 06/28/18 18:59 81 16 98 Mechanical Ventilator 35 06/28/18 17:06 86 17 35 06/28/18 16:00 92 06/28/18 16:00 99.1 94 19 146/69 (94) 96 06/28/18 16:00 Mechanical Ventilator Mechanical Ventilator 06/28/18 16:00 35 06/28/18 15:00 Mechanical Ventilator 35 06/28/18 15:00 90 17 35 Intake and Output 06/28/18 06/29/18 19:00 07:00 Intake Total 640 ml 600 ml Output Total 1200 ml 675 ml Balance -560 ml -75 ml Free Water 160 ml 120 ml Tube Feeding 480 ml 480 ml Output Urine Total 500 ml 600 ml Stool Total 100 ml 75 ml Other 600 ml Laboratory Tests 06/28/18 15:05: Body Fluid pH 8.0 06/28/18 16:30: Body Fluid Glucose 131, Body Fluid Total Protein 3.5, Body Fluid Lactate Dehydrogenase 113 06/29/18 04:30: White Blood Count 10.4, Red Blood Count 3.48L, Hemoglobin 8.2L, Hematocrit 26.4L , Mean Corpuscular Volume 76L, Mean Corpuscular Hemoglobin 23.5L, Mean Corpuscular Hemoglobin Concent 31.0L, Red Cell Distribution Width 17.7H, Platelet Count 207, Mean Platelet Volume 6.8, Neutrophils (%) (Auto) 69.8, Lymphocytes (%) (Auto) 18.1L, Monocytes (%) (Auto) 5.1, Eosinophils (%) (Auto) 6.4H, Basophils (%) (Auto) 0.6, Sodium Level 147H, Potassium Level 3.7, Chloride Level 105, Carbon Dioxide Level 34H, Anion Gap 8, Blood Urea Nitrogen 92H, Creatinine 2.3H, Estimat Glomerular Filtration Rate , Glucose Level 108H, Calcium Level 9.6, Total Bilirubin 0.2, Aspartate Amino Transf (AST/SGOT) 17, Alanine Aminotransferase (ALT/SGPT) 18, Alkaline Phosphatase 95, Lactate Dehydrogenase 203, Total Protein 6.5, Albumin 2.3L, Globulin 4.2, Albumin/ Globulin Ratio 0.5L 06/29/18 10:28: Arterial Blood pH 7.304L, Arterial Blood Partial Pressure CO2 79.5*H, Arterial Blood Partial Pressure O2 57.8L, Arterial Blood HCO3 38.6H, Arterial Blood Oxygen Saturation 85.7*L, Arterial Blood Base Excess 9.9*H, David Test Positive Height (Feet): 5 Height (Inches): 4.00 Weight (Pounds): 119 EENT: other - trach Neck: limited range of motion Cardiovascular: tachycardia Respiratory/Chest: decreased breath sounds Abdomen: soft Objective no change Kendrick Jimenez MD Jun 29, 2018 14:17
--- NOTE | 2018-06-29 15:34 | NUR ---
NURSE NOTES: WOUND CARE FOLLOW-UP NOTES:Non-blanchable erythema without induration or tenderness when palpated (L)9cm x (W)12cm. periwound is pink and dry .Incontinence associated dermatitis-erythema with moisture denudements noted to perineum and medial aspects of both upper thighs. Bilat heels are pink and easily blanchable. No other skin concerns noted. Recommendations:Apply Triad paste to perineum and medial aspects of both upper thighs with each perineal care. Apply Triad to sacrum.Cover with Optifoam drsg. Change every 3 days and prn. Reposition at least every 2hours or as tolerated. Off-load heels with pillow
[2018-06-29] MEDS ORDERED: NS 275ml ONE (15:51)
[2018-06-29 16:00] VITALS: BP 135/65
--- NOTE | 2018-06-29 16:44 | NUR ---
NURSE NOTES: Spoke and informed Hailee from case management that patient has case management consult for discharge planning to [facility].
[2018-06-29] MEDS: Amiodarone 200mg tab GT SCH (17:07)
--- NOTE | 2018-06-29 17:38 | NUR ---
CASE MANAGEMENT: REVIEW 06/29/2018 SI: SEPSIS. ASPIRATION PNA. T 98.2 HR 85 RR 20 B/P 135/65 SATS 96% ON MECH VENT FiO2 35 NA 147 CO2 34 BUN 92 CR 2.3 GLU 108 ABGs: pH 7.304 pCO2 79.5 pO2 57.8 HCO3 38.6 O2 SAT 85.7 BE 9.9 IS: AMIODARONE PO QD PROTONIX IV QD VANCO HCl GT QID GT FEEDING NEPRO @40ML/HR STEP DOWN UNIT STATUS DCP: PATIENT IS FROM [facility] PLAN: DC PLANNING TO [facility]
--- NOTE | 2018-06-29 19:10 | NUR ---
HAND-OFF: Report given to Alexander Jimenez RN. Pt in stable condition.NURSE NOTES:
--- NOTE | 2018-06-29 19:15 | NUR ---
NURSE NOTES: Received report from Kristin JI/ Brandi JI, pt. in bed awake- able to follow command- non-verbal. Family at bedside, no signs or symptoms of acute cardiac or respiratory distress noted, bed in lowest position and call light within easy reach, bed alarm on, side rails up x's3 and safety brakes engaged, pt. appears to be tolerating current vent settings well- AC16, TV 350, Fio2 at35% and peep 5, Nephro running at 40cc/hr- no residual noted- via G tube, Rectal tube and Sinclair both intact and draining to gravity, Dressings dry and intact, comfort measures provided, oral care done, MILY PICC intact and patent- per endorsement red port not working, safety measures continued, will continue with plan of care. Addendum: 06/30/18 at 0609 by KRIS BAIG RN RN bilateral wrist restraints removed- skin intact and pulses palpable will continue to monitor pt. and with plan of care.
--- NOTE | 2018-06-29 19:40 | Cardiology Progress Note ---
Assessment/Plan Assessment/Plan COPD, congestive heart failure, atrial fibrillation sinus tachy agitation right lung collapse? anemia pleural effusion respirator failure tachy acute on chronic renal failure pleural effusion tele sinus vent support abx pulm rxn beta evelyn iv or via ngt prn amiod to 200 qd hemodynamically stable at the moment bp is ok cr abn s/p trach and peg s/p thoracentesis d/w family hgb better post prbc tx Subjective ROS Limited/Unobtainable: Yes Subjective in sdu on vent in isolation Objective Last 24 Hour Vital Signs Date Time Temp Pulse Resp B/P (MAP) Pulse Ox O2 Delivery O2 Flow Rate FiO2 06/29/18 19:12 83 23 06/29/18 19:11 84 22 97 Mechanical Ventilator 35 06/29/18 17:05 85 23 35 06/29/18 16:00 35 06/29/18 16:00 90 06/29/18 16:00 98.2 85 20 135/65 (88) 96 06/29/18 16:00 Mechanical Ventilator Mechanical Ventilator 06/29/18 15:27 82 16 98 Mechanical Ventilator 35 06/29/18 15:19 88 23 35 06/29/18 15:17 92 26 97 Mechanical Ventilator 35 06/29/18 13:29 85 18 35 06/29/18 12:09 94 19 95 Mechanical Ventilator 35 06/29/18 12:00 35 06/29/18 12:00 Mechanical Ventilator Mechanical Ventilator 06/29/18 12:00 99.1 96 22 148/69 (95) 96 06/29/18 12:00 100 06/29/18 10:33 110 24 35 06/29/18 10:30 35 06/29/18 09:50 35 06/29/18 09:50 94 28 35 06/29/18 08:45 83 141/89 06/29/18 08:00 81 06/29/18 08:00 Mechanical Ventilator Mechanical Ventilator 06/29/18 08:00 98.4 83 16 141/89 (106) 93 06/29/18 08:00 35 06/29/18 07:30 84 16 96 Mechanical Ventilator 35 06/29/18 07:15 76 16 96 Mechanical Ventilator 35 06/29/18 07:15 76 16 35 06/29/18 04:48 91 22 35 06/29/18 04:00 35 06/29/18 04:00 99.2 92 22 160/81 (107) 97 06/29/18 04:00 79 06/29/18 04:00 Mechanical Ventilator Mechanical Ventilator 06/29/18 03:16 87 16 98 Mechanical Ventilator 35 06/29/18 03:05 82 16 97 Mechanical Ventilator 35 06/29/18 03:03 82 19 35 06/29/18 01:01 83 17 35 06/29/18 00:00 93 06/29/18 00:00 Mechanical Ventilator Mechanical Ventilator 06/29/18 00:00 99.1 91 17 141/60 (87) 95 06/28/18 23:10 90 18 99 Mechanical Ventilator 35 06/28/18 23:00 90 18 35 06/28/18 22:59 93 21 98 Mechanical Ventilator 35 06/28/18 20:50 73 16 35 06/28/18 20:00 Mechanical Ventilator Mechanical Ventilator 06/28/18 20:00 35 06/28/18 20:00 99.1 76 16 146/86 (106) 97 06/28/18 20:00 76 General Appearance: no apparent distress, alert, on vent, patient on isolation Cardiovascular: normal rate Respiratory/Chest: lungs clear Abdomen: normal bowel sounds, non tender, soft Extremities: no swelling Intake and Output 06/28/18 06/29/18 18:59 06:59 Intake Total 640 ml 570 ml Output Total 1200 ml 675 ml Balance -560 ml -105 ml Free Water 160 ml 90 ml Tube Feeding 480 ml 480 ml Output Urine Total 500 ml 600 ml Stool Total 100 ml 75 ml Other 600 ml Laboratory Tests Test 06/29/18 04:30 06/29/18 10:28 White Blood Count 10.4 K/UL (4.8-10.8) Red Blood Count 3.48 M/UL (4.20-5.40) L Hemoglobin 8.2 G/DL (12.0-16.0) L Hematocrit 26.4 % (37.0-47.0) L Mean Corpuscular Volume 76 FL (80-99) L Mean Corpuscular Hemoglobin 23.5 PG (27.0-31.0) L Mean Corpuscular Hemoglobin Concent 31.0 G/DL (32.0-36.0) L Red Cell Distribution Width 17.7 % (11.6-14.8) H Platelet Count 207 K/UL (150-450) Mean Platelet Volume 6.8 FL (6.5-10.1) Neutrophils (%) (Auto) 69.8 % (45.0-75.0) Lymphocytes (%) (Auto) 18.1 % (20.0-45.0) L Monocytes (%) (Auto) 5.1 % (1.0-10.0) Eosinophils (%) (Auto) 6.4 % (0.0-3.0) H Basophils (%) (Auto) 0.6 % (0.0-2.0) Sodium Level 147 MMOL/L (136-145) H Potassium Level 3.7 MMOL/L (3.5-5.1) Chloride Level 105 MMOL/L (98-107) Carbon Dioxide Level 34 MMOL/L (21-32) H Anion Gap 8 mmol/L (5-15) Blood Urea Nitrogen 92 mg/dL (7-18) H Creatinine 2.3 MG/DL (0.55-1.30) H Estimat Glomerular Filtration Rate mL/min (>60) Glucose Level 108 MG/DL (74-106) H Calcium Level 9.6 MG/DL (8.5-10.1) Total Bilirubin 0.2 MG/DL (0.2-1.0) Aspartate Amino Transf (AST/SGOT) 17 U/L (15-37) Alanine Aminotransferase (ALT/SGPT) 18 U/L (12-78) Alkaline Phosphatase 95 U/L (46-116) Lactate Dehydrogenase 203 U/L (81-234) Total Protein 6.5 G/DL (6.4-8.2) Albumin 2.3 G/DL (3.4-5.0) L Globulin 4.2 g/dL Albumin/Globulin Ratio 0.5 (1.0-2.7) L Arterial Blood pH 7.304 (7.350-7.450) Arterial Blood Partial Pressure CO2 79.5 mmHg (35.0-45.0) *H Arterial Blood Partial Pressure O2 57.8 mmHg (75.0-100.0) L Arterial Blood HCO3 38.6 mmol/L (22.0-26.0) H Arterial Blood Oxygen Saturation 85.7 % (95-100) *L Arterial Blood Base Excess 9.9 (-2-2) *H David Test Positive Microbiology Date/Time Source Procedure Growth Status 06/28/18 16:30 Pleural Fluid Gram Stain - Final Resulted 06/28/18 16:30 Pleural Fluid Body Fluid Culture - Preliminary NO GROWTH Resulted Geoffrey Sandhu MD Jun 29, 2018 19:40
[2018-06-29 20:00] VITALS: BP 155/80
[2018-06-29] MEDS: Dyna-Hex 2% Top Sol 2oz TOPIC SCH (20:08)
--- NOTE | 2018-06-29 22:21 | General Progress Note ---
Assessment/Plan Assessment/Plan Assessment - Resp failure - s/p PEG - C DIff diarrhea - COPD - CHF - PNA - Anemia Recommendations - GT feeds - Vent care - Elevated HOB - Monitor residuals - Pulmonary toilet - Vanco PO x 14 days - wean down acid suppression Subjective Allergies: Coded Allergies: Mushroom (Verified Allergy, Severe, 05/28/18) MORPHINE (Unverified Allergy, Intermediate, Itching, 01/04/15) PENICILLINS (Unverified Allergy, Intermediate, Hives, 06/25/18) Tolerates cephalosporins and carbapenems CELECOXIB (Verified Allergy, Mild, 01/15/09) Subjective Seen in [place] tolerating TF no event overnight still with diarrhea per RN completed 10 d of vanco - written to get 4 more days Objective Last 24 Hour Vital Signs Date Time Temp Pulse Resp B/P (MAP) Pulse Ox O2 Delivery O2 Flow Rate FiO2 06/29/18 21:09 78 16 06/29/18 20:00 85 06/29/18 20:00 98.9 84 20 155/80 (105) 97 06/29/18 19:48 88 16 100 Mechanical Ventilator 35 06/29/18 19:12 83 23 06/29/18 19:11 84 22 97 Mechanical Ventilator 35 06/29/18 17:05 85 23 35 06/29/18 16:00 35 06/29/18 16:00 90 06/29/18 16:00 98.2 85 20 135/65 (88) 96 06/29/18 16:00 Mechanical Ventilator Mechanical Ventilator 06/29/18 15:27 82 16 98 Mechanical Ventilator 35 06/29/18 15:19 88 23 35 06/29/18 15:17 92 26 97 Mechanical Ventilator 35 06/29/18 13:29 85 18 35 06/29/18 12:09 94 19 95 Mechanical Ventilator 35 06/29/18 12:00 35 06/29/18 12:00 Mechanical Ventilator Mechanical Ventilator 06/29/18 12:00 99.1 96 22 148/69 (95) 96 06/29/18 12:00 100 06/29/18 10:33 110 24 35 06/29/18 10:30 35 06/29/18 09:50 35 06/29/18 09:50 94 28 35 06/29/18 08:45 83 141/89 06/29/18 08:00 81 06/29/18 08:00 Mechanical Ventilator Mechanical Ventilator 06/29/18 08:00 98.4 83 16 141/89 (106) 93 06/29/18 08:00 35 06/29/18 07:30 84 16 96 Mechanical Ventilator 35 06/29/18 07:15 76 16 96 Mechanical Ventilator 35 06/29/18 07:15 76 16 35 06/29/18 04:48 91 22 35 06/29/18 04:00 35 06/29/18 04:00 99.2 92 22 160/81 (107) 97 06/29/18 04:00 79 06/29/18 04:00 Mechanical Ventilator Mechanical Ventilator 06/29/18 03:16 87 16 98 Mechanical Ventilator 35 06/29/18 03:05 82 16 97 Mechanical Ventilator 35 06/29/18 03:03 82 19 35 06/29/18 01:01 83 17 35 06/29/18 00:00 93 06/29/18 00:00 Mechanical Ventilator Mechanical Ventilator 06/29/18 00:00 99.1 91 17 141/60 (87) 95 06/28/18 23:10 90 18 99 Mechanical Ventilator 35 06/28/18 23:00 90 18 35 06/28/18 22:59 93 21 98 Mechanical Ventilator 35 Intake and Output 06/28/18 06/29/18 18:59 06:59 Intake Total 640 ml 570 ml Output Total 1200 ml 675 ml Balance -560 ml -105 ml Free Water 160 ml 90 ml Tube Feeding 480 ml 480 ml Output Urine Total 500 ml 600 ml Stool Total 100 ml 75 ml Other 600 ml Laboratory Tests 06/29/18 04:30: White Blood Count 10.4, Red Blood Count 3.48L, Hemoglobin 8.2L, Hematocrit 26.4L , Mean Corpuscular Volume 76L, Mean Corpuscular Hemoglobin 23.5L, Mean Corpuscular Hemoglobin Concent 31.0L, Red Cell Distribution Width 17.7H, Platelet Count 207, Mean Platelet Volume 6.8, Neutrophils (%) (Auto) 69.8, Lymphocytes (%) (Auto) 18.1L, Monocytes (%) (Auto) 5.1, Eosinophils (%) (Auto) 6.4H, Basophils (%) (Auto) 0.6, Sodium Level 147H, Potassium Level 3.7, Chloride Level 105, Carbon Dioxide Level 34H, Anion Gap 8, Blood Urea Nitrogen 92H, Creatinine 2.3H, Estimat Glomerular Filtration Rate , Glucose Level 108H, Calcium Level 9.6, Total Bilirubin 0.2, Aspartate Amino Transf (AST/SGOT) 17, Alanine Aminotransferase (ALT/SGPT) 18, Alkaline Phosphatase 95, Lactate Dehydrogenase 203, Total Protein 6.5, Albumin 2.3L, Globulin 4.2, Albumin/ Globulin Ratio 0.5L 06/29/18 10:28: Arterial Blood pH 7.304L, Arterial Blood Partial Pressure CO2 79.5*H, Arterial Blood Partial Pressure O2 57.8L, Arterial Blood HCO3 38.6H, Arterial Blood Oxygen Saturation 85.7*L, Arterial Blood Base Excess 9.9*H, David Test Positive Height (Feet): 5 Height (Inches): 4.00 Weight (Pounds): 119 Objective Elderly WW NCAT, (+) NGT, (+)ETT Supple CTA RRR Soft, NT, ND No edema restrained Panchito Rahman MD Jun 29, 2018 22:21
[2018-06-30] VITALS: BP 143/60
[2018-06-30] MEDS: Albuterol/Ipratropium 3ml neb HHN PRN ×6 (02:44→23:11)
[2018-06-30 04:00] VITALS: BP 148/72
--- NOTE | 2018-06-30 07:07 | NUR ---
HAND-OFF: Report given to Stanford JI, pt. remains stable and no signs of distress noted.
--- NOTE | 2018-06-30 07:28 | NUR ---
NURSE NOTES: Received report from Xavier Jimenez RN. Patient asleep in bed, opens eyes to voice, able to follow commands. Trach to vent with settings of AC 16, TV 350, FiO2 35%, PEEP 5, saturating at 97%. GT feeding of Nepro running @ 40 cc/hr, no residuals noted. HoB elevated. Sinclair catheter and rectal tube patent and draining well. Right upper arm PICC intact and asymptomatic. Bilateral wrist restraints in place, no redness or edema noted, skin intact, peripheral pulses present. Bed locked in lowest position with side rails up x 3. All needs attended to. Call light within reach. Will continue to monitor.
[2018-06-30 08:00] VITALS: BP 152/72
[2018-06-30] MEDS: Lactobacillus-GG tablet GT SCH ×2 (08:59→18:07)
[2018-06-30] MEDS: Vancomycin oral 125mg/2.5ml ORAL SCH ×4 (08:59→20:28)
--- NOTE | 2018-06-30 11:58 | Diagnostic Imaging Report ---
APPROVED REPORT CPT Code: 23398 Present Symptoms Lower Extremity Pain: BILATERAL: Imaging reveals a patent deep venous system bilaterally. There is no evidence of thrombus within the femoral, popliteal or tibial segments. The greater saphenous veins are also within normal limits. Doppler indicates normal spontaneous flow within these segments.
[2018-06-30 12:00] VITALS: BP 131/72
--- NOTE | 2018-06-30 12:13 | Nephrology Progress Note ---
Assessment/Plan Problem List: (1) Acute renal failure Assessment: Cr lowering (2) Anuria (3) Acute respiratory failure Assessment: on vent (4) Dementia (5) Afib Assessment Cr lowering Urine out put rising Cr lowering other conditions: (1) Acute respiratory failure (2) Aspiration pneumonia (3) Acute encephalopathy (4) Pleural effusion (5) COPD (chronic obstructive pulmonary disease) (6) CAD (coronary artery disease) (7) Dementia Plan Now trached and Pegged Cr lowering- Urine out put higher monitor vanco level family agree with HD . but no need for HD at this time K and Phos and Mag as needed Anemia porter Adjust BP meds fu Lytes Gastric support per orders Subjective ROS Limited/Unobtainable: Yes Objective Objective Last 24 Hour Vital Signs Date Time Temp Pulse Resp B/P (MAP) Pulse Ox O2 Delivery O2 Flow Rate FiO2 06/30/18 10:50 87 19 100 Mechanical Ventilator 35 06/30/18 10:40 89 22 98 Mechanical Ventilator 35 06/30/18 10:40 89 22 35 06/30/18 09:32 96 24 35 06/30/18 08:59 76 152/72 06/30/18 08:00 Mechanical Ventilator 06/30/18 08:00 79 06/30/18 08:00 35 06/30/18 08:00 98.1 76 16 152/72 (98) 96 06/30/18 07:27 74 17 100 Mechanical Ventilator 35 06/30/18 07:17 79 19 35 06/30/18 07:17 79 19 98 Mechanical Ventilator 35 06/30/18 05:09 84 24 06/30/18 04:00 35 06/30/18 04:00 Mechanical Ventilator Mechanical Ventilator 06/30/18 04:00 98.5 83 20 148/72 (97) 96 06/30/18 04:00 83 06/30/18 03:10 79 17 97 Mechanical Ventilator 35 06/30/18 02:47 71 16 97 Mechanical Ventilator 35 06/30/18 02:45 72 16 06/30/18 01:15 72 16 06/30/18 00:00 Mechanical Ventilator Mechanical Ventilator 06/30/18 00:00 70 06/30/18 00:00 98.4 74 16 143/60 (87) 96 06/29/18 23:21 69 16 100 Mechanical Ventilator 35 06/29/18 23:02 72 16 06/29/18 23:01 72 16 96 Mechanical Ventilator 35 06/29/18 21:09 78 16 06/29/18 20:00 85 06/29/18 20:00 98.9 84 20 155/80 (105) 97 06/29/18 20:00 35 06/29/18 20:00 Mechanical Ventilator Mechanical Ventilator 06/29/18 19:48 88 16 100 Mechanical Ventilator 35 06/29/18 19:12 83 23 06/29/18 19:11 84 22 97 Mechanical Ventilator 35 06/29/18 17:05 85 23 35 06/29/18 16:00 35 06/29/18 16:00 90 06/29/18 16:00 98.2 85 20 135/65 (88) 96 06/29/18 16:00 Mechanical Ventilator Mechanical Ventilator 06/29/18 15:27 82 16 98 Mechanical Ventilator 35 06/29/18 15:19 88 23 35 06/29/18 15:17 92 26 97 Mechanical Ventilator 35 06/29/18 13:29 85 18 35 Intake and Output 06/29/18 06/30/18 19:00 07:00 Intake Total 610 ml 530 ml Output Total 1050 ml 1000 ml Balance -440 ml -470 ml Free Water 130 ml 50 ml Tube Feeding 480 ml 480 ml Output Urine Total 800 ml 1000 ml Stool Total 250 ml Laboratory Tests 06/30/18 04:00: Arterial Blood pH 7.420, Arterial Blood Partial Pressure CO2 62.0*H, Arterial Blood Partial Pressure O2 83.4, Arterial Blood HCO3 40.0H, Arterial Blood Oxygen Saturation 95.5, Arterial Blood Base Excess 13.6*H, David Test Positive Height (Feet): 5 Height (Inches): 4.00 Weight (Pounds): 119 EENT: other - trach Cardiovascular: tachycardia Respiratory/Chest: decreased breath sounds Abdomen: distended Objective no change Kendrick Jimenez MD Jun 30, 2018 12:13
[2018-06-30 16:00] VITALS: BP 147/81
--- NOTE | 2018-06-30 16:23 | Infectious Diseases Prog Note ---
Assessment/Plan Assessment/Plan 87 yo feamle with PMHx of COPD, HTN, and A.fib sent to the ED from her intermediate for SOB. Sepsis;improving - Likely PNA 06/21 CXR: Slightly increased right lung opacity, suspect increasing pleural fluid.Increased retrocardiac consolidation 06/17 CXR: Increasing right lung opacity, likely representing decreasing pleural fluid but may also represent increasing parenchymal consolidation 06/15 CXR: Increasing opacification right hemithorax, likely reflecting increasing pleural fluid but may also reflect increasing pulmonary parenchymal consolidation 06/14 CXR: Diffuse right lung hazy opacity appears similar to the prior exam. 06/12 CXR: : Hazy opacification of the right hemithorax, likely reflecting pleural fluid, is unchanged. 05/28/18 CXR with atalectasis vs consolidation in the right side. 06/01/18 CXR - Extensive right hemithorax opacification UA (-) sputum cx 06/15: MRSA (likely a colonizer at this point), ESBL E.coli Sputum Cx 05/28/18 - MRSA (Inf Neg) Urine legionella (-) Acute respiratory failure s/p intubation 06/16 -s/p trach 06/23 R>L pleural effusion; exudate -FLuid pH 8, protein 3.5 (serum 6.5), LDH 111 (serum 203: cx NTD -06/28 SP Successful ultrasound-guided R thoracentesis, yielding 600 milliliters of fluid Cdiff colitis -06/19 Cdif toxin a/b + R lung collapse: -06/16 CXR: Complete opacification of the right hemithorax. Probably due to complete atelectasis of the right lung, with evidence of abrupt occlusion of the right mainstem bronchus. Given findings on prior chest radiographs, there is probably significant component of pleural effusion as well. Positive blood Cx - Likely contaminant BCx 05/28/18 - CoNS BCX 05/30/18 - NGTD Leukocytosis , recurrent mild- SP Fever, SP COPD CAD A. fib s/p PEG 06/24 PLAN -Continue PO Vancomycin #12/14 for Cdiff -06/26 SP Ertapenem #6 -06/20 SP Meropenem #5 -06/17 SP IV Vancomycin #21 -2 SP Cefepime #20 - Monitor CBC and Temps -f/u cx We will continue to follow Ms. Nowak during this hospitalization. Subjective Allergies: Coded Allergies: Mushroom (Verified Allergy, Severe, 05/28/18) MORPHINE (Unverified Allergy, Intermediate, Itching, 01/04/15) PENICILLINS (Unverified Allergy, Intermediate, Hives, 06/25/18) Tolerates cephalosporins and carbapenems CELECOXIB (Verified Allergy, Mild, 01/15/09) Subjective afebrile no leukocytosis Objective Vital Signs Last 24 Hour Vital Signs Date Time Temp Pulse Resp B/P (MAP) Pulse Ox O2 Delivery O2 Flow Rate FiO2 06/30/18 15:18 96 18 99 Mechanical Ventilator 35 06/30/18 15:07 94 21 97 Mechanical Ventilator 35 06/30/18 15:06 95 22 35 06/30/18 13:56 88 20 35 06/30/18 12:00 98.1 91 18 131/72 (91) 99 06/30/18 12:00 Mechanical Ventilator 06/30/18 12:00 88 06/30/18 12:00 35 06/30/18 10:50 87 19 100 Mechanical Ventilator 35 06/30/18 10:40 89 22 98 Mechanical Ventilator 35 06/30/18 10:40 89 22 35 06/30/18 09:32 96 24 35 06/30/18 08:59 76 152/72 06/30/18 08:00 Mechanical Ventilator 06/30/18 08:00 79 06/30/18 08:00 35 06/30/18 08:00 98.1 76 16 152/72 (98) 96 06/30/18 07:27 74 17 100 Mechanical Ventilator 35 06/30/18 07:17 79 19 35 06/30/18 07:17 79 19 98 Mechanical Ventilator 35 06/30/18 05:09 84 24 06/30/18 04:00 35 06/30/18 04:00 Mechanical Ventilator Mechanical Ventilator 06/30/18 04:00 98.5 83 20 148/72 (97) 96 06/30/18 04:00 83 06/30/18 03:10 79 17 97 Mechanical Ventilator 35 06/30/18 02:47 71 16 97 Mechanical Ventilator 35 06/30/18 02:45 72 16 06/30/18 01:15 72 16 06/30/18 00:00 Mechanical Ventilator Mechanical Ventilator 06/30/18 00:00 70 06/30/18 00:00 98.4 74 16 143/60 (87) 96 06/29/18 23:21 69 16 100 Mechanical Ventilator 35 06/29/18 23:02 72 16 06/29/18 23:01 72 16 96 Mechanical Ventilator 35 06/29/18 21:09 78 16 06/29/18 20:00 85 06/29/18 20:00 98.9 84 20 155/80 (105) 97 06/29/18 20:00 35 06/29/18 20:00 Mechanical Ventilator Mechanical Ventilator 06/29/18 19:48 88 16 100 Mechanical Ventilator 35 06/29/18 19:12 83 23 06/29/18 19:11 84 22 97 Mechanical Ventilator 35 06/29/18 17:05 85 23 35 Height (Feet): 5 Height (Inches): 4.00 Weight (Pounds): 119 Objective General Appearance: no apparent distress, Neck: supple, trach in place Cardiovascular: normal rate Respiratory/Chest: decreased BS at bases Abdomen: normal bowel sounds, non tender, soft; Peg in place rectal tube in place Extremities: trace edema Microbiology Date/Time Source Procedure Growth Status 06/28/18 16:30 Pleural Fluid Gram Stain - Final Resulted 06/28/18 16:30 Pleural Fluid Body Fluid Culture - Preliminary NO GROWTH AFTER 24 HOURS Resulted Laboratory Tests Test 06/30/18 04:00 Arterial Blood pH 7.420 (7.350-7.450) Arterial Blood Partial Pressure CO2 62.0 mmHg (35.0-45.0) *H Arterial Blood Partial Pressure O2 83.4 mmHg (75.0-100.0) Arterial Blood HCO3 40.0 mmol/L (22.0-26.0) H Arterial Blood Oxygen Saturation 95.5 % (95-100) Arterial Blood Base Excess 13.6 (-2-2) *H David Test Positive Current Medications Medications (Trade) Dose Ordered Sig/Ann Route PRN Reason Start Time Stop Time Status Last Admin Dose Admin Acetaminophen (Tylenol) 650 mg Q4H PRN ORAL Mild Pain/Temp > 100.5 06/26/18 15:30 07/16/18 19:18 06/27/18 17:06 Acetylcysteine (Mucomyst) 100 mg Q4HRT HHN 06/26/18 15:00 07/09/18 10:59 06/30/18 15:05 Albuterol/ Ipratropium (Albuterol/ Ipratropium) 3 ml Q4H PRN HHN Shortness of Breath 06/26/18 15:30 07/01/18 11:29 06/30/18 15:05 Amiodarone HCl (Cordarone) 200 mg DAILY@1800 GT 06/26/18 18:00 07/24/18 17:59 06/29/18 17:07 Amlodipine Besylate (Norvasc) 2.5 mg DAILY ORAL 06/27/18 09:00 07/25/18 08:59 06/30/18 08:59 Chlorhexidine Gluconate (Myra-Hex 2%) 1 applic DAILY@2000 TOPIC 06/26/18 20:00 07/02/18 19:59 06/29/18 20:08 Lactobacillus Acidophilus (Culturelle) 1 tab TWICE A DAY GT 06/26/18 18:00 07/22/18 17:59 06/30/18 08:59 Lansoprazole (Prevacid) 30 mg DAILY GT 06/30/18 09:00 07/30/18 08:59 06/30/18 08:59 Metoprolol Tartrate (Lopressor) 5 mg Q6H PRN IVP HR > 125 06/26/18 18:00 07/16/18 17:59 Ondansetron HCl (Zofran) 4 mg Q6H PRN IVP Nausea & Vomiting 06/26/18 14:00 07/16/18 13:59 Quetiapine Fumarate (SEROquel) 12.5 mg QHS ORAL 06/29/18 21:00 07/29/18 20:59 06/29/18 20:08 Vancomycin HCl (Firvanq) 125 mg FOUR TIMES A DAY ORAL 06/29/18 10:00 07/03/18 09:59 06/30/18 12:49 Natty Hernandes M.D. Jun 30, 2018 16:23
--- NOTE | 2018-06-30 16:25 | Pulmonology Progress Note ---
Assessment/Plan Assessment/Plan Pulmonary Progress Note Problem List: 1. Acute on chronic hypercapnic respiratory failure -intubated 06/02; extubated 06/10 -reintubated 06/17 -trach 06/23 carmelinaley 8 2. R lung collapse, mucous plugging - resolved 3. Pulmonary edema 4. chronic obstructive asthma 5. Pneumonia 6. Hx afib 7. MRSA pna, recurrent fever and increased leukocytosis 8. ESBL E.coli pna 9. C.diff colitis 10. Pleural effusion -06/28 R thoracentesis; 600 cc Plan: -cont mechanical ventilatory support; lower tidal volume to 350 cc -PS trial now at PS 12 and ABG after 45 min, if tolerates PS 10 as tolerated , back to vent overnight -f/u pleural fluid studies -aggressive pulmonary hygiene with duonebs/mucomyst/suctioning q4 -monitor volumes -monitor renal function -abx per ID -PEG done -seroquel 12.5 mg qhs d/c planning LTACH Subjective ROS Limited/Unobtainable: Yes Interval Events: 600 cc R thoracentesis done today. Arousable, gets agitated mildly. Allergies: Coded Allergies: Mushroom (Verified Allergy, Severe, 05/28/18) MORPHINE (Unverified Allergy, Intermediate, Itching, 01/04/15) PENICILLINS (Unverified Allergy, Intermediate, Hives, 06/25/18) Tolerates cephalosporins and carbapenems CELECOXIB (Verified Allergy, Mild, 01/15/09) Objective Vital Signs Noted General Appearance: no acute distress HEENT: normocephalic, atraumatic Respiratory/Chest: other - coarse breath sounds Cardiovascular: regular rhythm Abdomen: soft, non tender Extremities: no edema Laboratory Tests 06/28/18 12:20: Prothrombin Time 11.4, Prothromb Time International Ratio 1.1, Activated Partial Thromboplast Time 28 06/28/18 16:30: Body Fluid Glucose [Pending], Body Fluid Total Protein [Pending], Body Fluid Lactate Dehydrogenase [Pending] 06/29/18 04:30: White Blood Count 10.4, Red Blood Count 3.48L, Hemoglobin 8.2L, Hematocrit 26.4L , Mean Corpuscular Volume 76L, Mean Corpuscular Hemoglobin 23.5L, Mean Corpuscular Hemoglobin Concent 31.0L, Red Cell Distribution Width 17.7H, Platelet Count 207, Mean Platelet Volume 6.8, Neutrophils (%) (Auto) 69.8, Lymphocytes (%) (Auto) 18.1L, Monocytes (%) (Auto) 5.1, Eosinophils (%) (Auto) 6.4H, Basophils (%) (Auto) 0.6, Lactate Dehydrogenase 203, Total Protein 6.4 Current Medications Medications (Trade) Dose Ordered Sig/Ann Route PRN Reason Start Time Stop Time Status Last Admin Dose Admin Acetaminophen (Tylenol) 650 mg Q4H PRN ORAL Mild Pain/Temp > 100.5 06/26/18 15:30 07/16/18 19:18 06/27/18 17:06 Acetaminophen/ Hydrocodone Bitart ([place] 5/325) 1 tab Q6H PRN ORAL Moderate Pain (Pain Scale 4-6) 06/26/18 14:00 07/01/18 13:59 Acetylcysteine (Mucomyst) 100 mg Q4HRT HHN 06/26/18 15:00 07/09/18 10:59 06/29/18 07:14 Albuterol/ Ipratropium (Albuterol/ Ipratropium) 3 ml Q4H PRN HHN Shortness of Breath 06/26/18 15:30 07/01/18 11:29 06/29/18 07:15 Amiodarone HCl (Cordarone) 200 mg DAILY@1800 GT 06/26/18 18:00 07/24/18 17:59 06/28/18 17:17 Amlodipine Besylate (Norvasc) 2.5 mg DAILY ORAL 06/27/18 09:00 07/25/18 08:59 06/29/18 08:45 Chlorhexidine Gluconate (Myra-Hex 2%) 1 applic DAILY@2000 TOPIC 06/26/18 20:00 07/02/18 19:59 06/28/18 21:10 Lactobacillus Acidophilus (Culturelle) 1 tab TWICE A DAY GT 06/26/18 18:00 07/22/18 17:59 06/29/18 08:46 Lansoprazole (Prevacid) 30 mg BID GT 06/26/18 18:00 07/26/18 17:59 06/29/18 08:45 Metoprolol Tartrate (Lopressor) 5 mg Q6H PRN IVP HR > 125 06/26/18 18:00 07/16/18 17:59 Ondansetron HCl (Zofran) 4 mg Q6H PRN IVP Nausea & Vomiting 06/26/18 14:00 07/16/18 13:59 Vancomycin HCl (Firvanq) 125 mg FOUR TIMES A DAY ORAL 06/29/18 10:00 07/03/18 09:59 06/29/18 10:11 Subjective ROS Limited/Unobtainable: No Allergies: Coded Allergies: Mushroom (Verified Allergy, Severe, 05/28/18) MORPHINE (Unverified Allergy, Intermediate, Itching, 01/04/15) PENICILLINS (Unverified Allergy, Intermediate, Hives, 06/25/18) Tolerates cephalosporins and carbapenems CELECOXIB (Verified Allergy, Mild, 01/15/09) Objective Last 24 Hour Vital Signs Date Time Temp Pulse Resp B/P (MAP) Pulse Ox O2 Delivery O2 Flow Rate FiO2 06/30/18 15:18 96 18 99 Mechanical Ventilator 35 06/30/18 15:07 94 21 97 Mechanical Ventilator 35 06/30/18 15:06 95 22 35 06/30/18 13:56 88 20 35 06/30/18 12:00 98.1 91 18 131/72 (91) 99 06/30/18 12:00 Mechanical Ventilator 06/30/18 12:00 88 06/30/18 12:00 35 06/30/18 10:50 87 19 100 Mechanical Ventilator 35 06/30/18 10:40 89 22 98 Mechanical Ventilator 35 06/30/18 10:40 89 22 35 06/30/18 09:32 96 24 35 06/30/18 08:59 76 152/72 06/30/18 08:00 Mechanical Ventilator 06/30/18 08:00 79 06/30/18 08:00 35 06/30/18 08:00 98.1 76 16 152/72 (98) 96 06/30/18 07:27 74 17 100 Mechanical Ventilator 35 06/30/18 07:17 79 19 35 06/30/18 07:17 79 19 98 Mechanical Ventilator 35 06/30/18 05:09 84 24 06/30/18 04:00 35 06/30/18 04:00 Mechanical Ventilator Mechanical Ventilator 06/30/18 04:00 98.5 83 20 148/72 (97) 96 06/30/18 04:00 83 06/30/18 03:10 79 17 97 Mechanical Ventilator 35 06/30/18 02:47 71 16 97 Mechanical Ventilator 35 06/30/18 02:45 72 16 06/30/18 01:15 72 16 06/30/18 00:00 Mechanical Ventilator Mechanical Ventilator 06/30/18 00:00 70 06/30/18 00:00 98.4 74 16 143/60 (87) 96 06/29/18 23:21 69 16 100 Mechanical Ventilator 35 06/29/18 23:02 72 16 06/29/18 23:01 72 16 96 Mechanical Ventilator 35 06/29/18 21:09 78 16 06/29/18 20:00 85 06/29/18 20:00 98.9 84 20 155/80 (105) 97 06/29/18 20:00 35 06/29/18 20:00 Mechanical Ventilator Mechanical Ventilator 06/29/18 19:48 88 16 100 Mechanical Ventilator 35 06/29/18 19:12 83 23 06/29/18 19:11 84 22 97 Mechanical Ventilator 35 06/29/18 17:05 85 23 35 Intake and Output 06/29/18 06/30/18 19:00 07:00 Intake Total 610 ml 530 ml Output Total 1050 ml 1000 ml Balance -440 ml -470 ml Free Water 130 ml 50 ml Tube Feeding 480 ml 480 ml Output Urine Total 800 ml 1000 ml Stool Total 250 ml Microbiology Date/Time Source Procedure Growth Status 06/28/18 16:30 Pleural Fluid Gram Stain - Final Resulted 06/28/18 16:30 Pleural Fluid Body Fluid Culture - Preliminary NO GROWTH AFTER 24 HOURS Resulted Laboratory Tests 06/30/18 04:00: Arterial Blood pH 7.420, Arterial Blood Partial Pressure CO2 62.0*H, Arterial Blood Partial Pressure O2 83.4, Arterial Blood HCO3 40.0H, Arterial Blood Oxygen Saturation 95.5, Arterial Blood Base Excess 13.6*H, David Test Positive Current Medications Medications (Trade) Dose Ordered Sig/Ann Route PRN Reason Start Time Stop Time Status Last Admin Dose Admin Acetaminophen (Tylenol) 650 mg Q4H PRN ORAL Mild Pain/Temp > 100.5 06/26/18 15:30 07/16/18 19:18 06/27/18 17:06 Acetylcysteine (Mucomyst) 100 mg Q4HRT HHN 06/26/18 15:00 07/09/18 10:59 06/30/18 15:05 Albuterol/ Ipratropium (Albuterol/ Ipratropium) 3 ml Q4H PRN HHN Shortness of Breath 06/26/18 15:30 07/01/18 11:29 06/30/18 15:05 Amiodarone HCl (Cordarone) 200 mg DAILY@1800 GT 06/26/18 18:00 07/24/18 17:59 06/29/18 17:07 Amlodipine Besylate (Norvasc) 2.5 mg DAILY ORAL 06/27/18 09:00 07/25/18 08:59 06/30/18 08:59 Chlorhexidine Gluconate (Myra-Hex 2%) 1 applic DAILY@2000 TOPIC 06/26/18 20:00 07/02/18 19:59 06/29/18 20:08 Lactobacillus Acidophilus (Culturelle) 1 tab TWICE A DAY GT 06/26/18 18:00 07/22/18 17:59 06/30/18 08:59 Lansoprazole (Prevacid) 30 mg DAILY GT 06/30/18 09:00 07/30/18 08:59 06/30/18 08:59 Metoprolol Tartrate (Lopressor) 5 mg Q6H PRN IVP HR > 125 06/26/18 18:00 07/16/18 17:59 Ondansetron HCl (Zofran) 4 mg Q6H PRN IVP Nausea & Vomiting 06/26/18 14:00 07/16/18 13:59 Quetiapine Fumarate (SEROquel) 12.5 mg QHS ORAL 06/29/18 21:00 07/29/18 20:59 06/29/18 20:08 Vancomycin HCl (Firvanq) 125 mg FOUR TIMES A DAY ORAL 06/29/18 10:00 07/03/18 09:59 06/30/18 12:49 Clint Zaidi MD Jun 30, 2018 16:25
[2018-06-30] MEDS: Amiodarone 200mg tab GT SCH (18:07)
--- NOTE | 2018-06-30 19:14 | NUR ---
HAND-OFF: Report given to Xavier Jimenez RN.
--- NOTE | 2018-06-30 19:22 | NUR ---
RESPIRATORY NOTE: Received pt on AC 16, 350VT, 35%, PEEP +5. Pt is trach-dependent w/ a cuffed, Shiley 8 tube. Pt is alert/awake, follows commands. Family present at bedside. B/S brad. rhonchi, sxn small amounts of thick, white secretions. Vent plugged into red outlet, ambubag & spare trach kit at bedside. Pt resting comfortably, in no apparent distress at this time. Will continue plan of care.
--- NOTE | 2018-06-30 19:25 | NUR ---
NURSE NOTES: Received report from Alexia RN, pt. in bed awake- able to follow commands- non-verbal. Family at bedside, no signs or symptoms of acute cardiac or respiratory distress noted, bed in lowest position and call light within easy reach, bed alarm on, side rails up x's3 and safety brakes engaged, pt. appears to be tolerating current vent settings well- AC16, TV 350, Fio2 at35% and peep 5, Nephro running at 40cc/hr- no residual noted- via G tube, Rectal tube and Sinclair both intact and draining to gravity, Bilateral wrist restraints removed- skin intact and pulses palpable, Dressings dry and intact, comfort measures provided, oral care done, MILY PICC intact and patent- per endorsement red port not working, safety measures continued, will continue with plan of care.
--- NOTE | 2018-06-30 19:29 | General Progress Note ---
Assessment/Plan Assessment/Plan Assessment - Resp failure - s/p PEG - C DIff diarrhea - COPD - CHF - PNA - Anemia Recommendations - GT feeds - Vent care - Elevated HOB - Monitor residuals - Pulmonary toilet - Vanco PO x 14 days - wean down acid suppression - may need to consider Dificid Subjective Allergies: Coded Allergies: Mushroom (Verified Allergy, Severe, 05/28/18) MORPHINE (Unverified Allergy, Intermediate, Itching, 01/04/15) PENICILLINS (Unverified Allergy, Intermediate, Hives, 06/25/18) Tolerates cephalosporins and carbapenems CELECOXIB (Verified Allergy, Mild, 01/15/09) Subjective Seen in [place] tolerating TF no event overnight stools thick liquid per RN s/p 11 days of po vanco Objective Last 24 Hour Vital Signs Date Time Temp Pulse Resp B/P (MAP) Pulse Ox O2 Delivery O2 Flow Rate FiO2 06/30/18 19:20 85 18 98 Mechanical Ventilator 35 06/30/18 17:10 87 18 35 06/30/18 16:00 35 06/30/18 16:00 98.2 96 22 147/81 (103) 98 06/30/18 16:00 Mechanical Ventilator 06/30/18 16:00 96 06/30/18 15:18 96 18 99 Mechanical Ventilator 35 06/30/18 15:07 94 21 97 Mechanical Ventilator 35 06/30/18 15:06 95 22 35 06/30/18 13:56 88 20 35 06/30/18 12:00 98.1 91 18 131/72 (91) 99 06/30/18 12:00 Mechanical Ventilator 06/30/18 12:00 88 06/30/18 12:00 35 06/30/18 10:50 87 19 100 Mechanical Ventilator 35 06/30/18 10:40 89 22 98 Mechanical Ventilator 35 06/30/18 10:40 89 22 35 06/30/18 09:32 96 24 35 06/30/18 08:59 76 152/72 06/30/18 08:00 Mechanical Ventilator 06/30/18 08:00 79 06/30/18 08:00 35 06/30/18 08:00 98.1 76 16 152/72 (98) 96 06/30/18 07:27 74 17 100 Mechanical Ventilator 35 06/30/18 07:17 79 19 35 06/30/18 07:17 79 19 98 Mechanical Ventilator 35 06/30/18 05:09 84 24 06/30/18 04:00 35 06/30/18 04:00 Mechanical Ventilator Mechanical Ventilator 06/30/18 04:00 98.5 83 20 148/72 (97) 96 06/30/18 04:00 83 06/30/18 03:10 79 17 97 Mechanical Ventilator 35 06/30/18 02:47 71 16 97 Mechanical Ventilator 35 06/30/18 02:45 72 16 06/30/18 01:15 72 16 06/30/18 00:00 Mechanical Ventilator Mechanical Ventilator 06/30/18 00:00 70 06/30/18 00:00 98.4 74 16 143/60 (87) 96 06/29/18 23:21 69 16 100 Mechanical Ventilator 35 06/29/18 23:02 72 16 06/29/18 23:01 72 16 96 Mechanical Ventilator 35 06/29/18 21:09 78 16 06/29/18 20:00 85 06/29/18 20:00 98.9 84 20 155/80 (105) 97 06/29/18 20:00 35 06/29/18 20:00 Mechanical Ventilator Mechanical Ventilator 06/29/18 19:48 88 16 100 Mechanical Ventilator 35 Intake and Output 06/29/18 06/30/18 19:00 07:00 Intake Total 610 ml 530 ml Output Total 1050 ml 1000 ml Balance -440 ml -470 ml Free Water 130 ml 50 ml Tube Feeding 480 ml 480 ml Output Urine Total 800 ml 1000 ml Stool Total 250 ml Laboratory Tests 06/30/18 04:00: Arterial Blood pH 7.420, Arterial Blood Partial Pressure CO2 62.0*H, Arterial Blood Partial Pressure O2 83.4, Arterial Blood HCO3 40.0H, Arterial Blood Oxygen Saturation 95.5, Arterial Blood Base Excess 13.6*H, David Test Positive Height (Feet): 5 Height (Inches): 4.00 Weight (Pounds): 119 Objective Elderly WW NCAT, (+) NGT, (+)ETT Supple CTA RRR Soft, NT, ND No edema restrained Panchito Rahman MD Jun 30, 2018 19:29
--- NOTE | 2018-06-30 19:43 | Cardiology Progress Note ---
Assessment/Plan Assessment/Plan COPD, congestive heart failure, atrial fibrillation sinus tachy agitation right lung collapse? anemia pleural effusion respirator failure tachy acute on chronic renal failure pleural effusion tele sinus vent support abx pulm rxn beta evelyn iv or via ngt prn amiod to 200 qd hemodynamically stable at the moment bp is ok cr abn s/p trach and peg s/p thoracentesis d/w family seem more awake today duplex neg Subjective ROS Limited/Unobtainable: Yes Subjective in sdu on vent in isolation Objective Last 24 Hour Vital Signs Date Time Temp Pulse Resp B/P (MAP) Pulse Ox O2 Delivery O2 Flow Rate FiO2 06/30/18 19:20 85 18 35 06/30/18 19:20 85 18 98 Mechanical Ventilator 35 06/30/18 17:10 87 18 35 06/30/18 16:00 35 06/30/18 16:00 98.2 96 22 147/81 (103) 98 06/30/18 16:00 Mechanical Ventilator 06/30/18 16:00 96 06/30/18 15:18 96 18 99 Mechanical Ventilator 35 06/30/18 15:07 94 21 97 Mechanical Ventilator 35 06/30/18 15:06 95 22 35 06/30/18 13:56 88 20 35 06/30/18 12:00 98.1 91 18 131/72 (91) 99 06/30/18 12:00 Mechanical Ventilator 06/30/18 12:00 88 06/30/18 12:00 35 06/30/18 10:50 87 19 100 Mechanical Ventilator 35 06/30/18 10:40 89 22 98 Mechanical Ventilator 35 06/30/18 10:40 89 22 35 06/30/18 09:32 96 24 35 06/30/18 08:59 76 152/72 06/30/18 08:00 Mechanical Ventilator 06/30/18 08:00 79 06/30/18 08:00 35 06/30/18 08:00 98.1 76 16 152/72 (98) 96 06/30/18 07:27 74 17 100 Mechanical Ventilator 35 06/30/18 07:17 79 19 35 06/30/18 07:17 79 19 98 Mechanical Ventilator 35 06/30/18 05:09 84 24 06/30/18 04:00 35 06/30/18 04:00 Mechanical Ventilator Mechanical Ventilator 06/30/18 04:00 98.5 83 20 148/72 (97) 96 06/30/18 04:00 83 06/30/18 03:10 79 17 97 Mechanical Ventilator 35 06/30/18 02:47 71 16 97 Mechanical Ventilator 35 06/30/18 02:45 72 16 06/30/18 01:15 72 16 06/30/18 00:00 Mechanical Ventilator Mechanical Ventilator 06/30/18 00:00 70 06/30/18 00:00 98.4 74 16 143/60 (87) 96 06/29/18 23:21 69 16 100 Mechanical Ventilator 35 06/29/18 23:02 72 16 06/29/18 23:01 72 16 96 Mechanical Ventilator 35 06/29/18 21:09 78 16 06/29/18 20:00 85 06/29/18 20:00 98.9 84 20 155/80 (105) 97 06/29/18 20:00 35 06/29/18 20:00 Mechanical Ventilator Mechanical Ventilator 06/29/18 19:48 88 16 100 Mechanical Ventilator 35 General Appearance: no apparent distress, alert, on vent, patient on isolation Cardiovascular: normal rate, regular rhythm Respiratory/Chest: rhonchi - bilaterally Abdomen: normal bowel sounds, non tender, soft Extremities: no swelling Intake and Output 06/29/18 06/30/18 19:00 07:00 Intake Total 610 ml 530 ml Output Total 1050 ml 1000 ml Balance -440 ml -470 ml Free Water 130 ml 50 ml Tube Feeding 480 ml 480 ml Output Urine Total 800 ml 1000 ml Stool Total 250 ml Laboratory Tests Test 06/30/18 04:00 Arterial Blood pH 7.420 (7.350-7.450) Arterial Blood Partial Pressure CO2 62.0 mmHg (35.0-45.0) *H Arterial Blood Partial Pressure O2 83.4 mmHg (75.0-100.0) Arterial Blood HCO3 40.0 mmol/L (22.0-26.0) H Arterial Blood Oxygen Saturation 95.5 % (95-100) Arterial Blood Base Excess 13.6 (-2-2) *H David Test Positive Microbiology Date/Time Source Procedure Growth Status 06/28/18 16:30 Pleural Fluid Gram Stain - Final Resulted 06/28/18 16:30 Pleural Fluid Body Fluid Culture - Preliminary NO GROWTH AFTER 24 HOURS Resulted Geoffrey Sandhu MD Jun 30, 2018 19:43
[2018-06-30 20:00] VITALS: BP 149/82
[2018-06-30] MEDS: Dyna-Hex 2% Top Sol 2oz TOPIC SCH (20:27)
--- NOTE | 2018-06-30 21:39 | General Progress Note ---
Assessment/Plan Status: progressing Assessment/Plan This is an 87-year-old female admitted with chronic obstructive pulmonary disease exacerbation, right lower lobe infiltrate/pneumonia with altered mental status and acute kidney injury. The patient will be admitted to [facility] with the following medical problems. 1. Chronic obstructive pulmonary disease exacerbation and pneumonia. The patient has been seen by Pulmonary. Infectious Disease has been consulted, pancultured. IV antibiotics per ID. Continue with BiPAP and suction p.r.n. Transition to Venturi-mask when stable. 2. Acute kidney injury. We will monitor I's and O's, gentle intravenous fluids. Repeat a BMP in a.m. Consider Nephrology consult. 3. History of chronic atrial fibrillation. Continue with amiodarone. The patient is in sinus rhythm at this time. 4. History of hypertension. Continue with amlodipine and hold for systolic blood pressure less than 110. 5. Altered mental status, most likely from above conditions. We will keep n.p.o. except for medications and start IV fluids. 6. DVT prophylaxis with heparin subcutaneous and SCDs. 7. The patient is Full Code per policy. We will discuss with the family. 8. hypokalmia 9. Anemia 10. CHf acute on chronic 11. leucocytosis 12. ARF? ATN 13. C dif positive 14. hyperkalemia 15. pleural effusion 16. S/p Tracheostomy 06/22/18 Plan: - continue respiratory support - aggressive pulmonary suction - HD on hold as patient putting out better urine and createnine is improving - antibiotics per ID - on oral vanco - am labs - weaning off vent per pulmonary - Gi prophylaxis with protonix iv 40 mg daily - s/p Kayexalate - norvasc added for better BP cotrol - s/p PEG discussed with nurse Contact isolation for C dif now in [facility] consider spot lasix if ok with cardiology and renal - transfuse one unit of PRBC on 06-28-18 - Cpap trial - am labs will need LTAC possible [facility] Subjective Date patient seen: Jun 30, 2018 ROS Limited/Unobtainable: Yes Allergies: Coded Allergies: Mushroom (Verified Allergy, Severe, 05/28/18) MORPHINE (Unverified Allergy, Intermediate, Itching, 01/04/15) PENICILLINS (Unverified Allergy, Intermediate, Hives, 06/25/18) Tolerates cephalosporins and carbapenems CELECOXIB (Verified Allergy, Mild, 01/15/09) Subjective patient is now reintubated, in renal failure, HD on hold as making better urine , C dif positive on ngt vanco, s/p tracheostomy. s/p PEG, moved to [facility] on , on Cpap trila, s/p thoracentesis yesterday and transfusion, more alert today per nurse, still with diarrhea Vanco oral ordered by gi Objective Last 24 Hour Vital Signs Date Time Temp Pulse Resp B/P (MAP) Pulse Ox O2 Delivery O2 Flow Rate FiO2 06/30/18 20:51 85 23 35 06/30/18 20:00 88 06/30/18 20:00 98.4 80 16 149/82 (104) 98 06/30/18 19:34 91 18 100 Mechanical Ventilator 35 06/30/18 19:20 85 18 35 06/30/18 19:20 85 18 98 Mechanical Ventilator 35 06/30/18 17:10 87 18 35 06/30/18 16:00 35 06/30/18 16:00 98.2 96 22 147/81 (103) 98 06/30/18 16:00 Mechanical Ventilator 06/30/18 16:00 96 06/30/18 15:18 96 18 99 Mechanical Ventilator 35 06/30/18 15:07 94 21 97 Mechanical Ventilator 35 06/30/18 15:06 95 22 35 06/30/18 13:56 88 20 35 06/30/18 12:00 98.1 91 18 131/72 (91) 99 06/30/18 12:00 Mechanical Ventilator 06/30/18 12:00 88 06/30/18 12:00 35 06/30/18 10:50 87 19 100 Mechanical Ventilator 35 06/30/18 10:40 89 22 98 Mechanical Ventilator 35 06/30/18 10:40 89 22 35 06/30/18 09:32 96 24 35 06/30/18 08:59 76 152/72 06/30/18 08:00 Mechanical Ventilator 06/30/18 08:00 79 06/30/18 08:00 35 06/30/18 08:00 98.1 76 16 152/72 (98) 96 06/30/18 07:27 74 17 100 Mechanical Ventilator 35 06/30/18 07:17 79 19 35 2/28/19 07:17 79 19 98 Mechanical Ventilator 35 06/30/18 05:09 84 24 06/30/18 04:00 35 06/30/18 04:00 Mechanical Ventilator Mechanical Ventilator 06/30/18 04:00 98.5 83 20 148/72 (97) 96 06/30/18 04:00 83 06/30/18 03:10 79 17 97 Mechanical Ventilator 35 06/30/18 02:47 71 16 97 Mechanical Ventilator 35 06/30/18 02:45 72 16 06/30/18 01:15 72 16 06/30/18 00:00 Mechanical Ventilator Mechanical Ventilator 06/30/18 00:00 70 06/30/18 00:00 98.4 74 16 143/60 (87) 96 06/29/18 23:21 69 16 100 Mechanical Ventilator 35 06/29/18 23:02 72 16 06/29/18 23:01 72 16 96 Mechanical Ventilator 35 Intake and Output 06/29/18 06/30/18 19:00 07:00 Intake Total 610 ml 530 ml Output Total 1050 ml 1000 ml Balance -440 ml -470 ml Free Water 130 ml 50 ml Tube Feeding 480 ml 480 ml Output Urine Total 800 ml 1000 ml Stool Total 250 ml Laboratory Tests 06/30/18 04:00: Arterial Blood pH 7.420, Arterial Blood Partial Pressure CO2 62.0*H, Arterial Blood Partial Pressure O2 83.4, Arterial Blood HCO3 40.0H, Arterial Blood Oxygen Saturation 95.5, Arterial Blood Base Excess 13.6*H, David Test Positive Height (Feet): 5 Height (Inches): 4.00 Weight (Pounds): 119 General Appearance: no apparent distress, alert EENT: PERRL/EOMI, pharynx normal Neck: non-tender, supple Cardiovascular: normal rate, regular rhythm, no gallop/murmur, no JVD Respiratory/Chest: decreased breath sounds Abdomen: non tender, soft, no mass Extremities: normal range of motion Edema: 1+ Arm (L), 1+ Arm (R), 1+ Leg (L), 1+ Leg (R), 1+ Pedal (L), 1+ Pedal ( R), 1+ Generalized Neurologic: oriented x 3, responsive Skin: warm/dry Lymphatic: normal anterior cervical (L), normal anterior cervical (R), normal posterior cervical (L), normal posterior cervical (R), normal submandibular (L) , normal submandibular (R), normal supraclavicular (L), normal supraclavicular ( R), normal axillary (L), normal axillary (R), normal inguinal (L), normal inguinal (R), normal other Cruz Valderrama MD Jun 30, 2018 21:39
[2018-07-01] VITALS: BP 137/60
[2018-07-01] MEDS: Albuterol/Ipratropium 3ml neb HHN PRN ×2 (03:42→07:22)
[2018-07-01 04:00] VITALS: BP 148/74
--- NOTE | 2018-07-01 07:01 | NUR ---
HAND-OFF: Report given to Alexia JI, pt. stable and no signs of distress noted.
--- NOTE | 2018-07-01 07:15 | NUR ---
NURSE NOTES: Received report from Xavier Jimenez RN. Patient asleep in bed, opens eyes to voice, able to follow commands but confused. Trach to vent with settings of AC 16, TV 350, FiO2 35%, PEEP 5, no s/s of respiratory distress observed. GT feeding of Nepro running @ 40 cc/hr, no residuals noted. HoB elevated. Sinclair catheter and rectal tube patent and draining well. Right upper arm PICC intact and asymptomatic. Bilateral wrist restraints in place, no redness or edema noted, skin intact, peripheral pulses present. Bed locked in lowest position with side rails up x 3. All needs attended to. Call light within reach. Will continue to monitor.
[2018-07-01 07:40] LABS: BASOPHILS % (AUTO) 1.3 % (0.0-2.0); EOSINOPHILS % (AUTO) 10.9 % (0.0-3.0); HEMATOCRIT 29.6 % (37.0-47.0); MEAN CORPUSCULAR VOLUME 76 FL (80-99); NEUTROPHILS % (AUTO) 61.9 % (45.0-75.0); PLATELET COUNT 217 K/UL (150-450); RED BLOOD COUNT 3.92 M/UL (4.20-5.40); RED CELL DISTRIBUTION WIDTH 18.3 % (11.6-14.8); WHITE BLOOD COUNT 7.7 K/UL (4.8-10.8)
[2018-07-01 08:00] VITALS: BP 154/78
[2018-07-01] MEDS: D5 1/2NS 1,000 ML IV SCH (08:04)
[2018-07-01 08:07] LABS: ALANINE AMINOTRANSFERASE 18 U/L (12-78); ALBUMIN 2.4 G/DL (3.4-5.0); ALBUMIN/GLOBULIN RATIO 0.6 (1.0-2.7); ALKALINE PHOSPHATASE 111 U/L (46-116); ANION GAP 3 mmol/L (5-15); ASPARTATE AMINO TRANSFERASE 17 U/L (15-37); BILIRUBIN,TOTAL 0.3 MG/DL (0.2-1.0); BLOOD UREA NITROGEN 85 mg/dL (7-18); CARBON DIOXIDE 39 MMOL/L (21-32); CHLORIDE 108 MMOL/L (98-107); CREATININE 1.9 MG/DL (0.55-1.30); POTASSIUM 3.5 MMOL/L (3.5-5.1); SODIUM 150 MMOL/L (136-145)
[2018-07-01] MEDS: Lactobacillus-GG tablet GT SCH ×2 (09:22→18:29)
[2018-07-01] MEDS: Vancomycin oral 125mg/2.5ml ORAL SCH ×3 (09:22→20:03)
--- NOTE | 2018-07-01 10:23 | NUR ---
Social Service Note SUGAR faxed referral to Karen at [facility] [phone] (p) [phone] (f). Will monitor and follow up. Addendum: 07/01/18 at 1335 by DEMARIO LOZADA MSW [facility] spoke with Karen at [facility], confirmed faxed was received. Possible bed available this weekend. Number of nursing station provided to Karen. Ambulance with [facility] placed on will-call [phone].
--- NOTE | 2018-07-01 11:05 | Nephrology Progress Note ---
Assessment/Plan Problem List: (1) Acute renal failure Assessment: Cr lowering (2) Anuria (3) Acute respiratory failure Assessment: on vent (4) Dementia (5) Afib Assessment Cr lowering Urine out put rising Cr lowering other conditions: (1) Acute respiratory failure (2) Aspiration pneumonia (3) Acute encephalopathy (4) Pleural effusion (5) COPD (chronic obstructive pulmonary disease) (6) CAD (coronary artery disease) (7) Dementia Plan Now trached and Pegged Cr lowering- Urine out put higher monitor vanco level K and Phos and Mag as needed Anemia porter Adjust BP meds fu Lytes Gastric support per orders Subjective ROS Limited/Unobtainable: Yes Objective Objective Last 24 Hour Vital Signs Date Time Temp Pulse Resp B/P (MAP) Pulse Ox O2 Delivery O2 Flow Rate FiO2 07/01/18 09:56 98 07/01/18 09:22 91 154/78 07/01/18 09:15 91 29 35 07/01/18 08:00 Mechanical Ventilator 07/01/18 08:00 98.0 86 24 154/78 (103) 96 07/01/18 08:00 72 07/01/18 08:00 35 07/01/18 07:41 72 16 100 Mechanical Ventilator 35 07/01/18 07:24 77 22 98 Mechanical Ventilator 35 07/01/18 07:24 79 22 35 07/01/18 05:00 95 26 35 07/01/18 04:00 Mechanical Ventilator 07/01/18 04:00 70 07/01/18 04:00 35 07/01/18 04:00 97.3 73 16 148/74 (98) 100 07/01/18 03:55 78 17 100 Mechanical Ventilator 35 07/01/18 03:38 70 16 98 Mechanical Ventilator 35 07/01/18 03:37 70 16 35 07/01/18 01:15 76 16 35 07/01/18 00:00 35 07/01/18 00:00 Mechanical Ventilator 07/01/18 00:00 97.7 75 16 137/60 (85) 96 07/01/18 00:00 75 06/30/18 23:26 72 16 100 Mechanical Ventilator 35 06/30/18 23:11 76 16 98 Mechanical Ventilator 35 06/30/18 23:11 76 16 35 06/30/18 20:51 85 23 35 06/30/18 20:00 Mechanical Ventilator 06/30/18 20:00 35 06/30/18 20:00 88 06/30/18 20:00 98.4 80 16 149/82 (104) 98 06/30/18 19:34 91 18 100 Mechanical Ventilator 35 06/30/18 19:20 85 18 35 06/30/18 19:20 85 18 98 Mechanical Ventilator 35 06/30/18 17:10 87 18 35 06/30/18 16:00 35 06/30/18 16:00 98.2 96 22 147/81 (103) 98 06/30/18 16:00 Mechanical Ventilator 06/30/18 16:00 96 06/30/18 15:18 96 18 99 Mechanical Ventilator 35 06/30/18 15:07 94 21 97 Mechanical Ventilator 35 06/30/18 15:06 95 22 35 06/30/18 13:56 88 20 35 06/30/18 12:00 98.1 91 18 131/72 (91) 99 06/30/18 12:00 Mechanical Ventilator 06/30/18 12:00 88 06/30/18 12:00 35 Intake and Output 06/30/18 07/01/18 19:00 07:00 Intake Total 670 ml 530 ml Output Total 1150 ml 650 ml Balance -480 ml -120 ml Free Water 50 ml Tube Feeding 520 ml 480 ml Other 150 ml Output Urine Total 1000 ml 600 ml Stool Total 150 ml 50 ml Laboratory Tests 07/01/18 07:28: White Blood Count 7.7, Red Blood Count 3.92L, Hemoglobin 9.0L, Hematocrit 29.6L , Mean Corpuscular Volume 76L, Mean Corpuscular Hemoglobin 22.9L, Mean Corpuscular Hemoglobin Concent 30.3L, Red Cell Distribution Width 18.3H, Platelet Count 217, Mean Platelet Volume 7.1, Neutrophils (%) (Auto) 61.9, Lymphocytes (%) (Auto) 19.0L, Monocytes (%) (Auto) 7.0, Eosinophils (%) (Auto) 10.9H, Basophils (%) (Auto) 1.3, Sodium Level 150H, Potassium Level 3.5, Chloride Level 108H, Carbon Dioxide Level 39H, Anion Gap 3L, Blood Urea Nitrogen 85H, Creatinine 1.9H, Estimat Glomerular Filtration Rate , Glucose Level 117H, Calcium Level 10.0, Phosphorus Level 5.0H, Magnesium Level 2.0, Total Bilirubin 0.3, Aspartate Amino Transf (AST/SGOT) 17, Alanine Aminotransferase (ALT/SGPT) 18, Alkaline Phosphatase 111, Total Protein 6.7, Albumin 2.4L, Globulin 4.3, Albumin/Globulin Ratio 0.6L Height (Feet): 5 Height (Inches): 4.00 Weight (Pounds): 120 General Appearance: no apparent distress, lethargic Cardiovascular: tachycardia Respiratory/Chest: decreased breath sounds Abdomen: distended Objective no change Kendrick Jimenez MD Jul 01, 2018 11:05
--- NOTE | 2018-07-01 11:15 | NUR ---
RD ASSESSMENT & RECOMMENDATIONS SEE CARE ACTIVITY FOR COMPLETE ASSESSMENT DAILY ESTIMATED NEEDS: Needs based on Pulmonary, ARF (NO HD), Critical care/ 54kg 22-28 kcals/kg 0614-1229 total kcals 1-1.3 g protein/kg 54-70 g total protein 25-30 mL/kg 6880-6168 total fluid mLs NUTRITION DIAGNOSIS: * Swallowing difficulty R/T dysphagia, respiratory status as evidenced by s/p trach and PEG placement, on GT feeding. * Altered nutrition related lab values R/T clinical condition, prediabetes, ARF, volume deficit? as evidenced by elev Na (150 trend up, elev BUN (85 trend down), elev creat (0.9->5.0-> 1.9 trend back down), A1C=5.9, elev BG of 201 upon adm -> 117 108, elev K (6.0*-> now wnl), elev phos (5.9-> now nwl->5.0). CURRENT TF:Nepro @ 40ml/hr x 24 hrs -> NOW NPO ENTERAL NUTRITION RECOMMENDATIONS: Nepro @ 35ml/hr x 24 hrs to provide 840ml, 1512kcal, 68g prot, 610ml free water * Resume TF as medically appropriate * Cont to rec Nepro at this time- most updated phos elev @ 5.0 * HOB over 30 degrees/ water flush per MD W/ continued improving renal fxn and when lytes normalize, Rec TF change to Glucerna 1.2 @ 50ml/hr x 24 hrs to provide 1200ml, 1440kcal, 72g prot, 966ml free water ADDITIONAL RECOMMENDATIONS: * CALIBRATED bedscale wt for accurate CBW- w/ added SPR mattress+ pump * Monitor renal fxn, need to continue renal TF formula - renal fxn improving at this time * Monitor lytes closely * Monitor BGs, need for SSI/hypoglycemic agents . .
[2018-07-01 12:00] VITALS: BP 154/79
--- NOTE | 2018-07-01 14:44 | NUR ---
SURGICAL SERVICES MANAGERDESIGN DRAFTSMAN SI: RESP FAILURE TRACH/VENT DEPENDENT, HYPERNATREMIA T. 98.3 HR 75 RR 29 B/P 154/79 AC 16 TV 350 FIO2 35% PEEP 5 NA 150 BUN 85 CR 1.9 PHOS 5.0 IS: IVF D5NS@ 50ML/HR VANCO GT PREVACID GT GREENBERG EVAL STEP DOWN STATUS
--- NOTE | 2018-07-01 15:41 | Infectious Diseases Prog Note ---
Assessment/Plan Assessment/Plan 87 yo feamle with PMHx of COPD, HTN, and A.fib sent to the ED from her longterm for SOB. Sepsis;improving - Likely PNA 06/21 CXR: Slightly increased right lung opacity, suspect increasing pleural fluid.Increased retrocardiac consolidation 06/17 CXR: Increasing right lung opacity, likely representing decreasing pleural fluid but may also represent increasing parenchymal consolidation 06/15 CXR: Increasing opacification right hemithorax, likely reflecting increasing pleural fluid but may also reflect increasing pulmonary parenchymal consolidation 06/14 CXR: Diffuse right lung hazy opacity appears similar to the prior exam. 06/12 CXR: : Hazy opacification of the right hemithorax, likely reflecting pleural fluid, is unchanged. 05/28/18 CXR with atalectasis vs consolidation in the right side. 06/01/18 CXR - Extensive right hemithorax opacification UA (-) sputum cx 06/15: MRSA (likely a colonizer at this point), ESBL E.coli Sputum Cx 05/28/18 - MRSA (Inf Neg) Urine legionella (-) Acute respiratory failure s/p intubation 06/16 -s/p trach 06/23 R>L pleural effusion; exudate -FLuid pH 8, protein 3.5 (serum 6.5), LDH 111 (serum 203: cx NTD -06/28 SP Successful ultrasound-guided R thoracentesis, yielding 600 milliliters of fluid Cdiff colitis -06/19 Cdif toxin a/b + R lung collapse: -06/16 CXR: Complete opacification of the right hemithorax. Probably due to complete atelectasis of the right lung, with evidence of abrupt occlusion of the right mainstem bronchus. Given findings on prior chest radiographs, there is probably significant component of pleural effusion as well. Positive blood Cx - Likely contaminant BCx 05/28/18 - CoNS BCX 05/30/18 - NGTD Leukocytosis , recurrent mild- SP Fever, SP COPD CAD A. fib s/p PEG 06/24 PLAN -Continue PO Vancomycin #13/14 for Cdiff -06/26 SP Ertapenem #6 -218 SP Meropenem #5 -/ SP IV Vancomycin #21 -2 SP Cefepime #20 - Monitor CBC and Temps -f/u cx We will continue to follow Ms. Nowak during this hospitalization. Subjective Allergies: Coded Allergies: Mushroom (Verified Allergy, Severe, 05/28/18) MORPHINE (Unverified Allergy, Intermediate, Itching, 01/04/15) PENICILLINS (Unverified Allergy, Intermediate, Hives, 06/25/18) Tolerates cephalosporins and carbapenems CELECOXIB (Verified Allergy, Mild, 01/15/09) Subjective afebrile no leukocytosis Objective Vital Signs Last 24 Hour Vital Signs Date Time Temp Pulse Resp B/P (MAP) Pulse Ox O2 Delivery O2 Flow Rate FiO2 07/01/18 13:25 82 20 35 07/01/18 12:00 80 07/01/18 12:00 35 07/01/18 12:00 Mechanical Ventilator 07/01/18 12:00 98.3 75 16 154/79 (104) 97 07/01/18 11:30 80 20 100 Mechanical Ventilator 35 07/01/18 11:20 78 22 99 Mechanical Ventilator 35 07/01/18 11:20 78 29 35 07/01/18 09:56 98 07/01/18 09:22 91 154/78 07/01/18 09:15 91 29 35 07/01/18 08:00 Mechanical Ventilator 07/01/18 08:00 98.0 86 24 154/78 (103) 96 07/01/18 08:00 72 07/01/18 08:00 35 07/01/18 07:41 72 16 100 Mechanical Ventilator 35 07/01/18 07:24 77 22 98 Mechanical Ventilator 35 07/01/18 07:24 79 22 35 07/01/18 05:00 95 26 35 07/01/18 04:00 Mechanical Ventilator 07/01/18 04:00 70 07/01/18 04:00 35 07/01/18 04:00 97.3 73 16 148/74 (98) 100 07/01/18 03:55 78 17 100 Mechanical Ventilator 35 07/01/18 03:38 70 16 98 Mechanical Ventilator 35 07/01/18 03:37 70 16 35 07/01/18 01:15 76 16 35 07/01/18 00:00 35 07/01/18 00:00 Mechanical Ventilator 07/01/18 00:00 97.7 75 16 137/60 (85) 96 07/01/18 00:00 75 06/30/18 23:26 72 16 100 Mechanical Ventilator 35 06/30/18 23:11 76 16 98 Mechanical Ventilator 35 06/30/18 23:11 76 16 35 06/30/18 20:51 85 23 35 06/30/18 20:00 Mechanical Ventilator 06/30/18 20:00 35 06/30/18 20:00 88 06/30/18 20:00 98.4 80 16 149/82 (104) 98 06/30/18 19:34 91 18 100 Mechanical Ventilator 35 06/30/18 19:20 85 18 35 06/30/18 19:20 85 18 98 Mechanical Ventilator 35 06/30/18 17:10 87 18 35 06/30/18 16:00 35 06/30/18 16:00 98.2 96 22 147/81 (103) 98 06/30/18 16:00 Mechanical Ventilator 06/30/18 16:00 96 Height (Feet): 5 Height (Inches): 4.00 Weight (Pounds): 120 Objective General Appearance: no apparent distress, Neck: supple, trach in place Cardiovascular: normal rate Respiratory/Chest: decreased BS at bases Abdomen: normal bowel sounds, non tender, soft; Peg in place rectal tube in place Extremities: trace edema Microbiology Date/Time Source Procedure Growth Status 06/28/18 16:30 Pleural Fluid Gram Stain - Final Resulted 06/28/18 16:30 Pleural Fluid Body Fluid Culture - Preliminary NO GROWTH AFTER 48 HOURS Resulted Laboratory Tests Test 07/01/18 07:28 White Blood Count 7.7 K/UL (4.8-10.8) Red Blood Count 3.92 M/UL (4.20-5.40) L Hemoglobin 9.0 G/DL (12.0-16.0) L Hematocrit 29.6 % (37.0-47.0) L Mean Corpuscular Volume 76 FL (80-99) L Mean Corpuscular Hemoglobin 22.9 PG (27.0-31.0) L Mean Corpuscular Hemoglobin Concent 30.3 G/DL (32.0-36.0) L Red Cell Distribution Width 18.3 % (11.6-14.8) H Platelet Count 217 K/UL (150-450) Mean Platelet Volume 7.1 FL (6.5-10.1) Neutrophils (%) (Auto) 61.9 % (45.0-75.0) Lymphocytes (%) (Auto) 19.0 % (20.0-45.0) L Monocytes (%) (Auto) 7.0 % (1.0-10.0) Eosinophils (%) (Auto) 10.9 % (0.0-3.0) H Basophils (%) (Auto) 1.3 % (0.0-2.0) Sodium Level 150 MMOL/L (136-145) H Potassium Level 3.5 MMOL/L (3.5-5.1) Chloride Level 108 MMOL/L (98-107) H Carbon Dioxide Level 39 MMOL/L (21-32) H Anion Gap 3 mmol/L (5-15) L Blood Urea Nitrogen 85 mg/dL (7-18) H Creatinine 1.9 MG/DL (0.55-1.30) H Estimat Glomerular Filtration Rate mL/min (>60) Glucose Level 117 MG/DL (74-106) H Calcium Level 10.0 MG/DL (8.5-10.1) Phosphorus Level 5.0 MG/DL (2.5-4.9) H Magnesium Level 2.0 MG/DL (1.8-2.4) Total Bilirubin 0.3 MG/DL (0.2-1.0) Aspartate Amino Transf (AST/SGOT) 17 U/L (15-37) Alanine Aminotransferase (ALT/SGPT) 18 U/L (12-78) Alkaline Phosphatase 111 U/L (46-116) Total Protein 6.7 G/DL (6.4-8.2) Albumin 2.4 G/DL (3.4-5.0) L Globulin 4.3 g/dL Albumin/Globulin Ratio 0.6 (1.0-2.7) L Current Medications Medications (Trade) Dose Ordered Sig/Ann Route PRN Reason Start Time Stop Time Status Last Admin Dose Admin Acetaminophen (Tylenol) 650 mg Q4H PRN ORAL Mild Pain/Temp > 100.5 06/26/18 15:30 07/16/18 19:18 06/27/18 17:06 Acetylcysteine (Mucomyst) 100 mg Q4HRT HHN 06/26/18 15:00 07/09/18 10:59 07/01/18 12:24 Amiodarone HCl (Cordarone) 200 mg DAILY@1800 GT 06/26/18 18:00 07/24/18 17:59 06/30/18 18:07 Amlodipine Besylate (Norvasc) 2.5 mg DAILY ORAL 06/27/18 09:00 07/25/18 08:59 07/01/18 09:22 Chlorhexidine Gluconate (Myra-Hex 2%) 1 applic DAILY@2000 TOPIC 06/26/18 20:00 07/02/18 19:59 06/30/18 20:27 Dextrose/Sodium Chloride 1,000 ml @ 50 mls/hr Q20H IV 07/01/18 08:00 07/31/18 07:59 07/01/18 08:04 Lactobacillus Acidophilus (Culturelle) 1 tab TWICE A DAY GT 06/26/18 18:00 07/22/18 17:59 07/01/18 09:22 Lansoprazole (Prevacid) 30 mg DAILY GT 06/30/18 09:00 07/30/18 08:59 07/01/18 09:22 Metoprolol Tartrate (Lopressor) 5 mg Q6H PRN IVP HR > 125 06/26/18 18:00 07/16/18 17:59 Ondansetron HCl (Zofran) 4 mg Q6H PRN IVP Nausea & Vomiting 06/26/18 14:00 07/16/18 13:59 Quetiapine Fumarate (SEROquel) 12.5 mg QHS ORAL 06/29/18 21:00 07/29/18 20:59 06/30/18 20:27 Vancomycin HCl (Firvanq) 125 mg FOUR TIMES A DAY ORAL 06/29/18 10:00 07/03/18 09:59 07/01/18 13:54 Natty Hernandes M.D. Jul 01, 2018 15:41
[2018-07-01 16:00] VITALS: BP 157/79
[2018-07-01] MEDS ORDERED: NS 275ml ONE ×2 (16:34→17:02)
[2018-07-01] MEDS ORDERED: Tubing IV Secondary IV ONE (17:02)
[2018-07-01] MEDS ORDERED: Tubing Blood Filter IV ONE (17:02)
[2018-07-01] MEDS: Amiodarone 200mg tab GT SCH (18:29)
--- NOTE | 2018-07-01 18:57 | Cardiology Progress Note ---
Assessment/Plan Assessment/Plan COPD, congestive heart failure, atrial fibrillation sinus tachy agitation right lung collapse? anemia pleural effusion respirator failure tachy acute on chronic renal failure pleural effusion tele sinus vent support abx pulm rxn beta evelyn iv or via ngt prn amiod to 200 qd hemodynamically stable at the moment bp is high cr abn s/p trach and peg s/p thoracentesis duplex neg watch na Subjective ROS Limited/Unobtainable: Yes Subjective in sdu on vent in isolation Objective Last 24 Hour Vital Signs Date Time Temp Pulse Resp B/P (MAP) Pulse Ox O2 Delivery O2 Flow Rate FiO2 07/01/18 16:41 79 20 100 Mechanical Ventilator 35 07/01/18 16:41 87 20 35 07/01/18 16:41 79 20 100 Mechanical Ventilator 35 07/01/18 16:00 35 07/01/18 16:00 Mechanical Ventilator 07/01/18 16:00 91 07/01/18 16:00 98.1 85 18 157/79 (105) 96 07/01/18 13:25 82 20 35 07/01/18 12:00 80 07/01/18 12:00 35 07/01/18 12:00 Mechanical Ventilator 07/01/18 12:00 98.3 75 16 154/79 (104) 97 07/01/18 11:30 80 20 100 Mechanical Ventilator 35 07/01/18 11:20 78 22 99 Mechanical Ventilator 35 07/01/18 11:20 78 29 35 07/01/18 09:56 98 07/01/18 09:22 91 154/78 07/01/18 09:15 91 29 35 07/01/18 08:00 Mechanical Ventilator 07/01/18 08:00 98.0 86 24 154/78 (103) 96 07/01/18 08:00 72 07/01/18 08:00 35 07/01/18 07:41 72 16 100 Mechanical Ventilator 35 07/01/18 07:24 77 22 98 Mechanical Ventilator 35 07/01/18 07:24 79 22 35 07/01/18 05:00 95 26 35 07/01/18 04:00 Mechanical Ventilator 07/01/18 04:00 70 07/01/18 04:00 35 07/01/18 04:00 97.3 73 16 148/74 (98) 100 07/01/18 03:55 78 17 100 Mechanical Ventilator 35 07/01/18 03:38 70 16 98 Mechanical Ventilator 35 07/01/18 03:37 70 16 35 07/01/18 01:15 76 16 35 07/01/18 00:00 35 07/01/18 00:00 Mechanical Ventilator 07/01/18 00:00 97.7 75 16 137/60 (85) 96 07/01/18 00:00 75 06/30/18 23:26 72 16 100 Mechanical Ventilator 35 06/30/18 23:11 76 16 98 Mechanical Ventilator 35 06/30/18 23:11 76 16 35 06/30/18 20:51 85 23 35 06/30/18 20:00 Mechanical Ventilator 06/30/18 20:00 35 06/30/18 20:00 88 06/30/18 20:00 98.4 80 16 149/82 (104) 98 06/30/18 19:34 91 18 100 Mechanical Ventilator 35 06/30/18 19:20 85 18 35 06/30/18 19:20 85 18 98 Mechanical Ventilator 35 General Appearance: on vent, patient on isolation Intake and Output 06/30/18 07/01/18 19:00 07:00 Intake Total 670 ml 530 ml Output Total 1150 ml 650 ml Balance -480 ml -120 ml Free Water 50 ml Tube Feeding 520 ml 480 ml Other 150 ml Output Urine Total 1000 ml 600 ml Stool Total 150 ml 50 ml Laboratory Tests Test 07/01/18 07:28 White Blood Count 7.7 K/UL (4.8-10.8) Red Blood Count 3.92 M/UL (4.20-5.40) L Hemoglobin 9.0 G/DL (12.0-16.0) L Hematocrit 29.6 % (37.0-47.0) L Mean Corpuscular Volume 76 FL (80-99) L Mean Corpuscular Hemoglobin 22.9 PG (27.0-31.0) L Mean Corpuscular Hemoglobin Concent 30.3 G/DL (32.0-36.0) L Red Cell Distribution Width 18.3 % (11.6-14.8) H Platelet Count 217 K/UL (150-450) Mean Platelet Volume 7.1 FL (6.5-10.1) Neutrophils (%) (Auto) 61.9 % (45.0-75.0) Lymphocytes (%) (Auto) 19.0 % (20.0-45.0) L Monocytes (%) (Auto) 7.0 % (1.0-10.0) Eosinophils (%) (Auto) 10.9 % (0.0-3.0) H Basophils (%) (Auto) 1.3 % (0.0-2.0) Sodium Level 150 MMOL/L (136-145) H Potassium Level 3.5 MMOL/L (3.5-5.1) Chloride Level 108 MMOL/L (98-107) H Carbon Dioxide Level 39 MMOL/L (21-32) H Anion Gap 3 mmol/L (5-15) L Blood Urea Nitrogen 85 mg/dL (7-18) H Creatinine 1.9 MG/DL (0.55-1.30) H Estimat Glomerular Filtration Rate mL/min (>60) Glucose Level 117 MG/DL (74-106) H Calcium Level 10.0 MG/DL (8.5-10.1) Phosphorus Level 5.0 MG/DL (2.5-4.9) H Magnesium Level 2.0 MG/DL (1.8-2.4) Total Bilirubin 0.3 MG/DL (0.2-1.0) Aspartate Amino Transf (AST/SGOT) 17 U/L (15-37) Alanine Aminotransferase (ALT/SGPT) 18 U/L (12-78) Alkaline Phosphatase 111 U/L (46-116) Total Protein 6.7 G/DL (6.4-8.2) Albumin 2.4 G/DL (3.4-5.0) L Globulin 4.3 g/dL Albumin/Globulin Ratio 0.6 (1.0-2.7) L Geoffrey Sandhu MD Jul 01, 2018 18:57
--- NOTE | 2018-07-01 19:14 | Pulmonology Progress Note ---
Assessment/Plan Assessment/Plan Pulmonary Progress Note Problem List: 1. Acute on chronic hypercapnic respiratory failure -intubated 06/02; extubated 06/10 -reintubated 06/17 -trach 06/23 carmelinaley 8 2. R lung collapse, mucous plugging - resolved 3. Pulmonary edema 4. chronic obstructive asthma 5. Pneumonia 6. Hx afib 7. MRSA pna, recurrent fever and increased leukocytosis 8. ESBL E.coli pna 9. C.diff colitis 10. Pleural effusion -06/28 R thoracentesis; 600 cc Plan: -cont mechanical ventilatory support; lower tidal volume to 350 cc -PS trial now at PS 12 and ABG after 45 min, if tolerates PS 10 as tolerated , back to vent overnight -f/u pleural fluid studies -aggressive pulmonary hygiene with duonebs/mucomyst/suctioning q4 -monitor volumes -monitor renal function -abx per ID -PEG done -seroquel 12.5 mg qhs d/c planning LTACH Subjective ROS Limited/Unobtainable: Yes Interval Events: 600 cc R thoracentesis done today. Arousable, gets agitated mildly. Allergies: Coded Allergies: Mushroom (Verified Allergy, Severe, 05/28/18) MORPHINE (Unverified Allergy, Intermediate, Itching, 01/04/15) PENICILLINS (Unverified Allergy, Intermediate, Hives, 06/25/18) Tolerates cephalosporins and carbapenems CELECOXIB (Verified Allergy, Mild, 01/15/09) Objective Vital Signs Noted General Appearance: no acute distress HEENT: normocephalic, atraumatic Respiratory/Chest: other - coarse breath sounds Cardiovascular: regular rhythm Abdomen: soft, non tender Extremities: no edema Laboratory Tests 06/28/18 12:20: Prothrombin Time 11.4, Prothromb Time International Ratio 1.1, Activated Partial Thromboplast Time 28 06/28/18 16:30: Body Fluid Glucose [Pending], Body Fluid Total Protein [Pending], Body Fluid Lactate Dehydrogenase [Pending] 06/29/18 04:30: White Blood Count 10.4, Red Blood Count 3.48L, Hemoglobin 8.2L, Hematocrit 26.4L , Mean Corpuscular Volume 76L, Mean Corpuscular Hemoglobin 23.5L, Mean Corpuscular Hemoglobin Concent 31.0L, Red Cell Distribution Width 17.7H, Platelet Count 207, Mean Platelet Volume 6.8, Neutrophils (%) (Auto) 69.8, Lymphocytes (%) (Auto) 18.1L, Monocytes (%) (Auto) 5.1, Eosinophils (%) (Auto) 6.4H, Basophils (%) (Auto) 0.6, Lactate Dehydrogenase 203, Total Protein 6.4 Current Medications Medications (Trade) Dose Ordered Sig/Ann Route PRN Reason Start Time Stop Time Status Last Admin Dose Admin Acetaminophen (Tylenol) 650 mg Q4H PRN ORAL Mild Pain/Temp > 100.5 06/26/18 15:30 07/16/18 19:18 06/27/18 17:06 Acetaminophen/ Hydrocodone Bitart ([place] 5/325) 1 tab Q6H PRN ORAL Moderate Pain (Pain Scale 4-6) 06/26/18 14:00 07/01/18 13:59 Acetylcysteine (Mucomyst) 100 mg Q4HRT HHN 06/26/18 15:00 07/09/18 10:59 06/29/18 07:14 Albuterol/ Ipratropium (Albuterol/ Ipratropium) 3 ml Q4H PRN HHN Shortness of Breath 06/26/18 15:30 07/01/18 11:29 06/29/18 07:15 Amiodarone HCl (Cordarone) 200 mg DAILY@1800 GT 06/26/18 18:00 07/24/18 17:59 06/28/18 17:17 Amlodipine Besylate (Norvasc) 2.5 mg DAILY ORAL 06/27/18 09:00 07/25/18 08:59 06/29/18 08:45 Chlorhexidine Gluconate (Myra-Hex 2%) 1 applic DAILY@2000 TOPIC 06/26/18 20:00 07/02/18 19:59 06/28/18 21:10 Lactobacillus Acidophilus (Culturelle) 1 tab TWICE A DAY GT 06/26/18 18:00 07/22/18 17:59 06/29/18 08:46 Lansoprazole (Prevacid) 30 mg BID GT 06/26/18 18:00 07/26/18 17:59 06/29/18 08:45 Metoprolol Tartrate (Lopressor) 5 mg Q6H PRN IVP HR > 125 06/26/18 18:00 07/16/18 17:59 Ondansetron HCl (Zofran) 4 mg Q6H PRN IVP Nausea & Vomiting 06/26/18 14:00 07/16/18 13:59 Vancomycin HCl (Firvanq) 125 mg FOUR TIMES A DAY ORAL 06/29/18 10:00 07/03/18 09:59 06/29/18 10:11 Subjective ROS Limited/Unobtainable: No Allergies: Coded Allergies: Mushroom (Verified Allergy, Severe, 05/28/18) MORPHINE (Unverified Allergy, Intermediate, Itching, 01/04/15) PENICILLINS (Unverified Allergy, Intermediate, Hives, 06/25/18) Tolerates cephalosporins and carbapenems CELECOXIB (Verified Allergy, Mild, 01/15/09) Objective Last 24 Hour Vital Signs Date Time Temp Pulse Resp B/P (MAP) Pulse Ox O2 Delivery O2 Flow Rate FiO2 07/01/18 18:58 Mechanical Ventilator 07/01/18 18:57 Mechanical Ventilator 07/01/18 18:55 74 17 35 35 07/01/18 16:41 79 20 100 Mechanical Ventilator 35 07/01/18 16:41 87 20 35 07/01/18 16:41 79 20 100 Mechanical Ventilator 35 07/01/18 16:00 35 07/01/18 16:00 Mechanical Ventilator 07/01/18 16:00 91 07/01/18 16:00 98.1 85 18 157/79 (105) 96 07/01/18 13:25 82 20 35 07/01/18 12:00 80 07/01/18 12:00 35 07/01/18 12:00 Mechanical Ventilator 07/01/18 12:00 98.3 75 16 154/79 (104) 97 07/01/18 11:30 80 20 100 Mechanical Ventilator 35 07/01/18 11:20 78 22 99 Mechanical Ventilator 35 07/01/18 11:20 78 29 35 07/01/18 09:56 98 07/01/18 09:22 91 154/78 07/01/18 09:15 91 29 35 07/01/18 08:00 Mechanical Ventilator 07/01/18 08:00 98.0 86 24 154/78 (103) 96 07/01/18 08:00 72 07/01/18 08:00 35 07/01/18 07:41 72 16 100 Mechanical Ventilator 35 07/01/18 07:24 77 22 98 Mechanical Ventilator 35 07/01/18 07:24 79 22 35 07/01/18 05:00 95 26 35 07/01/18 04:00 Mechanical Ventilator 07/01/18 04:00 70 07/01/18 04:00 35 07/01/18 04:00 97.3 73 16 148/74 (98) 100 07/01/18 03:55 78 17 100 Mechanical Ventilator 35 07/01/18 03:38 70 16 98 Mechanical Ventilator 35 07/01/18 03:37 70 16 35 07/01/18 01:15 76 16 35 07/01/18 00:00 35 07/01/18 00:00 Mechanical Ventilator 07/01/18 00:00 97.7 75 16 137/60 (85) 96 07/01/18 00:00 75 06/30/18 23:26 72 16 100 Mechanical Ventilator 35 06/30/18 23:11 76 16 98 Mechanical Ventilator 35 06/30/18 23:11 76 16 35 06/30/18 20:51 85 23 35 06/30/18 20:00 Mechanical Ventilator 06/30/18 20:00 35 06/30/18 20:00 88 06/30/18 20:00 98.4 80 16 149/82 (104) 98 06/30/18 19:34 91 18 100 Mechanical Ventilator 35 06/30/18 19:20 85 18 35 06/30/18 19:20 85 18 98 Mechanical Ventilator 35 Intake and Output 06/30/18 07/01/18 19:00 07:00 Intake Total 670 ml 530 ml Output Total 1150 ml 650 ml Balance -480 ml -120 ml Free Water 50 ml Tube Feeding 520 ml 480 ml Other 150 ml Output Urine Total 1000 ml 600 ml Stool Total 150 ml 50 ml Laboratory Tests 07/01/18 07:28: White Blood Count 7.7, Red Blood Count 3.92L, Hemoglobin 9.0L, Hematocrit 29.6L , Mean Corpuscular Volume 76L, Mean Corpuscular Hemoglobin 22.9L, Mean Corpuscular Hemoglobin Concent 30.3L, Red Cell Distribution Width 18.3H, Platelet Count 217, Mean Platelet Volume 7.1, Neutrophils (%) (Auto) 61.9, Lymphocytes (%) (Auto) 19.0L, Monocytes (%) (Auto) 7.0, Eosinophils (%) (Auto) 10.9H, Basophils (%) (Auto) 1.3, Sodium Level 150H, Potassium Level 3.5, Chloride Level 108H, Carbon Dioxide Level 39H, Anion Gap 3L, Blood Urea Nitrogen 85H, Creatinine 1.9H, Estimat Glomerular Filtration Rate , Glucose Level 117H, Calcium Level 10.0, Phosphorus Level 5.0H, Magnesium Level 2.0, Total Bilirubin 0.3, Aspartate Amino Transf (AST/SGOT) 17, Alanine Aminotransferase (ALT/SGPT) 18, Alkaline Phosphatase 111, Total Protein 6.7, Albumin 2.4L, Globulin 4.3, Albumin/Globulin Ratio 0.6L Current Medications Medications (Trade) Dose Ordered Sig/Ann Route PRN Reason Start Time Stop Time Status Last Admin Dose Admin Acetaminophen (Tylenol) 650 mg Q4H PRN ORAL Mild Pain/Temp > 100.5 06/26/18 15:30 07/16/18 19:18 06/27/18 17:06 Acetylcysteine (Mucomyst) 100 mg Q4HRT HHN 06/26/18 15:00 07/09/18 10:59 07/01/18 12:24 Amiodarone HCl (Cordarone) 200 mg DAILY@1800 GT 06/26/18 18:00 07/24/18 17:59 07/01/18 18:29 Amlodipine Besylate (Norvasc) 2.5 mg DAILY ORAL 06/27/18 09:00 07/25/18 08:59 07/01/18 09:22 Chlorhexidine Gluconate (Myra-Hex 2%) 1 applic DAILY@2000 TOPIC 06/26/18 20:00 07/02/18 19:59 06/30/18 20:27 Dextrose/Sodium Chloride 1,000 ml @ 50 mls/hr Q20H IV 07/01/18 08:00 07/31/18 07:59 07/01/18 08:04 Lactobacillus Acidophilus (Culturelle) 1 tab TWICE A DAY GT 06/26/18 18:00 07/22/18 17:59 07/01/18 18:29 Lansoprazole (Prevacid) 30 mg DAILY GT 06/30/18 09:00 07/30/18 08:59 07/01/18 09:22 Metoprolol Tartrate (Lopressor) 5 mg Q6H PRN IVP HR > 125 06/26/18 18:00 07/16/18 17:59 Ondansetron HCl (Zofran) 4 mg Q6H PRN IVP Nausea & Vomiting 06/26/18 14:00 07/16/18 13:59 Quetiapine Fumarate (SEROquel) 12.5 mg QHS ORAL 06/29/18 21:00 07/29/18 20:59 06/30/18 20:27 Vancomycin HCl (Firvanq) 125 mg FOUR TIMES A DAY ORAL 06/29/18 10:00 07/03/18 09:59 07/01/18 13:54 Clint Zaidi MD Jul 01, 2018 19:14
--- NOTE | 2018-07-01 19:20 | NUR ---
HAND-OFF: Report given to Xavier Jimenez RN. 18:00 Vanco oral still not delivered by pharmacy.
--- NOTE | 2018-07-01 19:20 | NUR ---
NURSE NOTES: Received report from Alexia RN, pt. in bed awake- able to follow commands- non-verbal. no signs or symptoms of acute cardiac or respiratory distress noted, bed in lowest position and call light within easy reach, bed alarm on, side rails up x's3 and safety brakes engaged, bilateral wrist restraints removed and bilateral wrists palpable, pt. appears to be tolerating current vent settings well- AC16, TV 350, Fio2 at35% and peep 5, G tube intact and clamped, Rectal tube and Sinclair both intact and draining to gravity, Dressings dry and intact, comfort measures provided, oral care done, Left hand 22G IV intat and patent, safety measures continued, will continue with plan of care.
--- NOTE | 2018-07-01 19:57 | NUR ---
NURSE NOTES: Myra Hex not administered pt. no longer has PICC line.
[2018-07-01 20:00] VITALS: BP 148/70
[2018-07-01] MEDS: Dyna-Hex 2% Top Sol 2oz TOPIC SCH (20:00)
--- NOTE | 2018-07-01 20:45 | General Progress Note ---
Assessment/Plan Status: progressing Assessment/Plan This is an 87-year-old female admitted with chronic obstructive pulmonary disease exacerbation, right lower lobe infiltrate/pneumonia with altered mental status and acute kidney injury. The patient will be admitted to [facility] with the following medical problems. 1. Chronic obstructive pulmonary disease exacerbation and pneumonia. The patient has been seen by Pulmonary. Infectious Disease has been consulted, pancultured. IV antibiotics per ID. Continue with BiPAP and suction p.r.n. Transition to Venturi-mask when stable. 2. Acute kidney injury. We will monitor I's and O's, gentle intravenous fluids. Repeat a BMP in a.m. Consider Nephrology consult. 3. History of chronic atrial fibrillation. Continue with amiodarone. The patient is in sinus rhythm at this time. 4. History of hypertension. Continue with amlodipine and hold for systolic blood pressure less than 110. 5. Altered mental status, most likely from above conditions. We will keep n.p.o. except for medications and start IV fluids. 6. DVT prophylaxis with heparin subcutaneous and SCDs. 7. The patient is Full Code per policy. We will discuss with the family. 8. hypokalmia 9. Anemia 10. CHf acute on chronic 11. leucocytosis 12. ARF? ATN 13. C dif positive 14. hyperkalemia 15. pleural effusion 16. S/p Tracheostomy 06/22/18 Plan: - continue respiratory support - aggressive pulmonary suction - HD on hold as patient putting out better urine and createnine is improving - antibiotics per ID - on oral vanco for one more day - am labs - weaning off vent per pulmonary - Gi prophylaxis with protonix iv 40 mg daily - s/p Kayexalate - norvasc added for better BP cotrol - s/p PEG discussed with nurse Contact isolation for C dif now in [facility] consider spot lasix if ok with cardiology and renal - transfuse one unit of PRBC on 06-28-18 - Cpap trial - am labs patient is accepted to [facility] will discuss with family Subjective Date patient seen: Jul 01, 2018 ROS Limited/Unobtainable: Yes Allergies: Coded Allergies: Mushroom (Verified Allergy, Severe, 05/28/18) MORPHINE (Unverified Allergy, Intermediate, Itching, 01/04/15) PENICILLINS (Unverified Allergy, Intermediate, Hives, 06/25/18) Tolerates cephalosporins and carbapenems CELECOXIB (Verified Allergy, Mild, 01/15/09) Subjective patient is now reintubated, in renal failure, HD on hold as making better urine , C dif positive on ngt vanco, s/p tracheostomy. s/p PEG, moved to [facility] on , on Cpap trila, s/p thoracentesis yesterday and transfusion, more alert today per nurse, still with diarrhea Vanco oral ordered by gi Objective Last 24 Hour Vital Signs Date Time Temp Pulse Resp B/P (MAP) Pulse Ox O2 Delivery O2 Flow Rate FiO2 07/01/18 18:58 Mechanical Ventilator 07/01/18 18:57 Mechanical Ventilator 07/01/18 18:55 74 17 35 35 07/01/18 16:41 79 20 100 Mechanical Ventilator 35 07/01/18 16:41 87 20 35 07/01/18 16:41 79 20 100 Mechanical Ventilator 35 07/01/18 16:00 35 07/01/18 16:00 Mechanical Ventilator 07/01/18 16:00 91 07/01/18 16:00 98.1 85 18 157/79 (105) 96 07/01/18 13:25 82 20 35 07/01/18 12:00 80 07/01/18 12:00 35 07/01/18 12:00 Mechanical Ventilator 07/01/18 12:00 98.3 75 16 154/79 (104) 97 07/01/18 11:30 80 20 100 Mechanical Ventilator 35 07/01/18 11:20 78 22 99 Mechanical Ventilator 35 07/01/18 11:20 78 29 35 07/01/18 09:56 98 07/01/18 09:22 91 154/78 07/01/18 09:15 91 29 35 07/01/18 08:00 Mechanical Ventilator 07/01/18 08:00 98.0 86 24 154/78 (103) 96 07/01/18 08:00 72 07/01/18 08:00 35 07/01/18 07:41 72 16 100 Mechanical Ventilator 35 07/01/18 07:24 77 22 98 Mechanical Ventilator 35 07/01/18 07:24 79 22 35 07/01/18 05:00 95 26 35 07/01/18 04:00 Mechanical Ventilator 07/01/18 04:00 70 07/01/18 04:00 35 07/01/18 04:00 97.3 73 16 148/74 (98) 100 07/01/18 03:55 78 17 100 Mechanical Ventilator 35 07/01/18 03:38 70 16 98 Mechanical Ventilator 35 07/01/18 03:37 70 16 35 07/01/18 01:15 76 16 35 07/01/18 00:00 35 07/01/18 00:00 Mechanical Ventilator 07/01/18 00:00 97.7 75 16 137/60 (85) 96 07/01/18 00:00 75 06/30/18 23:26 72 16 100 Mechanical Ventilator 35 06/30/18 23:11 76 16 98 Mechanical Ventilator 35 06/30/18 23:11 76 16 35 06/30/18 20:51 85 23 35 Intake and Output 06/30/18 07/01/18 19:00 07:00 Intake Total 670 ml 530 ml Output Total 1150 ml 650 ml Balance -480 ml -120 ml Free Water 50 ml Tube Feeding 520 ml 480 ml Other 150 ml Output Urine Total 1000 ml 600 ml Stool Total 150 ml 50 ml Laboratory Tests 07/01/18 07:28: White Blood Count 7.7, Red Blood Count 3.92L, Hemoglobin 9.0L, Hematocrit 29.6L , Mean Corpuscular Volume 76L, Mean Corpuscular Hemoglobin 22.9L, Mean Corpuscular Hemoglobin Concent 30.3L, Red Cell Distribution Width 18.3H, Platelet Count 217, Mean Platelet Volume 7.1, Neutrophils (%) (Auto) 61.9, Lymphocytes (%) (Auto) 19.0L, Monocytes (%) (Auto) 7.0, Eosinophils (%) (Auto) 10.9H, Basophils (%) (Auto) 1.3, Sodium Level 150H, Potassium Level 3.5, Chloride Level 108H, Carbon Dioxide Level 39H, Anion Gap 3L, Blood Urea Nitrogen 85H, Creatinine 1.9H, Estimat Glomerular Filtration Rate , Glucose Level 117H, Calcium Level 10.0, Phosphorus Level 5.0H, Magnesium Level 2.0, Total Bilirubin 0.3, Aspartate Amino Transf (AST/SGOT) 17, Alanine Aminotransferase (ALT/SGPT) 18, Alkaline Phosphatase 111, Total Protein 6.7, Albumin 2.4L, Globulin 4.3, Albumin/Globulin Ratio 0.6L Height (Feet): 5 Height (Inches): 4.00 Weight (Pounds): 120 General Appearance: no apparent distress, alert EENT: PERRL/EOMI, pharynx normal Neck: non-tender, supple Cardiovascular: normal rate, regular rhythm, no gallop/murmur, no JVD Respiratory/Chest: decreased breath sounds Abdomen: non tender, soft, no mass Extremities: non-tender, normal inspection, no calf tenderness Edema: no edema noted Arm (L), no edema noted Arm (R), no edema noted Leg (L), no edema noted Leg (R), no edema noted Pedal (L), no edema noted Pedal (R), no edema noted Generalized Neurologic: alert Skin: warm/dry Lymphatic: normal anterior cervical (L), normal anterior cervical (R), normal posterior cervical (L), normal posterior cervical (R), normal submandibular (L) , normal submandibular (R), normal supraclavicular (L), normal supraclavicular ( R), normal axillary (L), normal axillary (R), normal inguinal (L), normal inguinal (R), normal other Cruz Valderrama MD Jul 01, 2018 20:45
--- NOTE | 2018-07-01 22:06 | General Progress Note ---
Assessment/Plan Assessment/Plan Assessment - Resp failure - s/p PEG - C DIff diarrhea - still with Diarrhea (? TF diarrhea vs refractory C Diff) - COPD - CHF - PNA - Anemia Recommendations - Hold GT feeds --> need to see if diarrhea resolves - Vent care - Elevated HOB - Monitor residuals - Pulmonary toilet - Vanco PO x 14 days - wean down acid suppression - may need to consider Dificid Subjective Allergies: Coded Allergies: Mushroom (Verified Allergy, Severe, 05/28/18) MORPHINE (Unverified Allergy, Intermediate, Itching, 01/04/15) PENICILLINS (Unverified Allergy, Intermediate, Hives, 06/25/18) Tolerates cephalosporins and carbapenems CELECOXIB (Verified Allergy, Mild, 01/15/09) Subjective Seen in [facility] tolerating TF s/p 12 days of po vanco still having diarrhea , per RN Objective Last 24 Hour Vital Signs Date Time Temp Pulse Resp B/P (MAP) Pulse Ox O2 Delivery O2 Flow Rate FiO2 07/01/18 21:06 78 20 35 35 07/01/18 20:00 98.2 83 21 148/70 (96) 95 07/01/18 20:00 35 07/01/18 20:00 Mechanical Ventilator 07/01/18 20:00 84 07/01/18 18:58 Mechanical Ventilator 07/01/18 18:57 Mechanical Ventilator 07/01/18 18:55 74 17 35 35 07/01/18 16:41 79 20 100 Mechanical Ventilator 35 07/01/18 16:41 87 20 35 07/01/18 16:41 79 20 100 Mechanical Ventilator 35 07/01/18 16:00 35 07/01/18 16:00 Mechanical Ventilator 07/01/18 16:00 91 07/01/18 16:00 98.1 85 18 157/79 (105) 96 07/01/18 13:25 82 20 35 07/01/18 12:00 80 07/01/18 12:00 35 07/01/18 12:00 Mechanical Ventilator 07/01/18 12:00 98.3 75 16 154/79 (104) 97 07/01/18 11:30 80 20 100 Mechanical Ventilator 35 07/01/18 11:20 78 22 99 Mechanical Ventilator 35 07/01/18 11:20 78 29 35 07/01/18 09:56 98 07/01/18 09:22 91 154/78 07/01/18 09:15 91 29 35 07/01/18 08:00 Mechanical Ventilator 07/01/18 08:00 98.0 86 24 154/78 (103) 96 07/01/18 08:00 72 07/01/18 08:00 35 07/01/18 07:41 72 16 100 Mechanical Ventilator 35 07/01/18 07:24 77 22 98 Mechanical Ventilator 35 07/01/18 07:24 79 22 35 07/01/18 05:00 95 26 35 07/01/18 04:00 Mechanical Ventilator 07/01/18 04:00 70 07/01/18 04:00 35 07/01/18 04:00 97.3 73 16 148/74 (98) 100 07/01/18 03:55 78 17 100 Mechanical Ventilator 35 07/01/18 03:38 70 16 98 Mechanical Ventilator 35 07/01/18 03:37 70 16 35 07/01/18 01:15 76 16 35 07/01/18 00:00 35 07/01/18 00:00 Mechanical Ventilator 07/01/18 00:00 97.7 75 16 137/60 (85) 96 07/01/18 00:00 75 06/30/18 23:26 72 16 100 Mechanical Ventilator 35 06/30/18 23:11 76 16 98 Mechanical Ventilator 35 06/30/18 23:11 76 16 35 Intake and Output 06/30/18 07/01/18 19:00 07:00 Intake Total 670 ml 530 ml Output Total 1150 ml 650 ml Balance -480 ml -120 ml Free Water 50 ml Tube Feeding 520 ml 480 ml Other 150 ml Output Urine Total 1000 ml 600 ml Stool Total 150 ml 50 ml Laboratory Tests 07/01/18 07:28: White Blood Count 7.7, Red Blood Count 3.92L, Hemoglobin 9.0L, Hematocrit 29.6L , Mean Corpuscular Volume 76L, Mean Corpuscular Hemoglobin 22.9L, Mean Corpuscular Hemoglobin Concent 30.3L, Red Cell Distribution Width 18.3H, Platelet Count 217, Mean Platelet Volume 7.1, Neutrophils (%) (Auto) 61.9, Lymphocytes (%) (Auto) 19.0L, Monocytes (%) (Auto) 7.0, Eosinophils (%) (Auto) 10.9H, Basophils (%) (Auto) 1.3, Sodium Level 150H, Potassium Level 3.5, Chloride Level 108H, Carbon Dioxide Level 39H, Anion Gap 3L, Blood Urea Nitrogen 85H, Creatinine 1.9H, Estimat Glomerular Filtration Rate , Glucose Level 117H, Calcium Level 10.0, Phosphorus Level 5.0H, Magnesium Level 2.0, Total Bilirubin 0.3, Aspartate Amino Transf (AST/SGOT) 17, Alanine Aminotransferase (ALT/SGPT) 18, Alkaline Phosphatase 111, Total Protein 6.7, Albumin 2.4L, Globulin 4.3, Albumin/Globulin Ratio 0.6L Height (Feet): 5 Height (Inches): 4.00 Weight (Pounds): 120 Objective Elderly WW NCAT, (+) NGT, (+)ETT Supple CTA RRR Soft, NT, ND No edema restrained Panchito Rahman MD Jul 01, 2018 22:06
[2018-07-02] VITALS: BP 144/63
[2018-07-02] MEDS: Vancomycin oral 125mg/2.5ml ORAL SCH ×5 (00:05→20:07)
--- NOTE | 2018-07-02 01:30 | NUR ---
NURSE NOTES: Pt. has Sinclair out at bedside- pt. is stable. pt. refusing to have another Sinclair reinserted by shaking her head- will continue to monitor patients. urine output and notify doctor in am.
[2018-07-02] MEDS: D5 1/2NS 1,000 ML IV SCH (01:40)
[2018-07-02 04:00] VITALS: BP 132/58
--- NOTE | 2018-07-02 07:19 | NUR ---
HAND-OFF: Report given to Med Rn, pt. stable and no signs of distress noted. Aware to f/u on Sinclair - msg left for Doctor Berdgis.
--- NOTE | 2018-07-02 07:20 | NUR ---
NURSE NOTES: msg left for DR. Matthews regarding pt. pulled out Sinclair and if he wanted another Sinclair inserted. Pt. is refusing to have Sinclair inserted. pt. remains stable and is voiding well since Sinclair has been out.
[2018-07-02 07:40] LABS: BASOPHILS % (AUTO) 1.5 % (0.0-2.0); EOSINOPHILS % (AUTO) 11.2 % (0.0-3.0); HEMATOCRIT 30.7 % (37.0-47.0); HEMOGLOBIN 9.3 G/DL (12.0-16.0); LYMPHOCYTES % (AUTO) 27.2 % (20.0-45.0); MEAN CORPUSCULAR VOLUME 76 FL (80-99); MONOCYTES % (AUTO) 6.7 % (1.0-10.0); NEUTROPHILS % (AUTO) 53.4 % (45.0-75.0); PLATELET COUNT 225 K/UL (150-450); RED BLOOD COUNT 4.06 M/UL (4.20-5.40); RED CELL DISTRIBUTION WIDTH 18.3 % (11.6-14.8)
[2018-07-02 08:00] VITALS: BP 162/80
--- NOTE | 2018-07-02 08:10 | NUR ---
NURSE NOTES: received pt in the bed, vent dependent, vital signs stable, no co pain, no SOB, skin warm and dry to touch, GT clump, pt has diarrhea, keep pt NPO, redness on sacral area, soft wrist restrains for safety, bed in low position, HOB elevated.
[2018-07-02] MEDS: Lactobacillus-GG tablet GT SCH ×2 (09:07→18:17)
--- NOTE | 2018-07-02 11:46 | NUR ---
RESPIRATORY NOTE:Per Doctors orders, he wants pt to be wean on simv tomorrow 07/03/18. RT dimas will report to noc rt to let the next day rt know of orders to wean pt on simv.
[2018-07-02 12:00] VITALS: BP 150/77
--- NOTE | 2018-07-02 12:00 | NUR ---
NURSE NOTES: NA 150, dr. Jimenez aware.
--- NOTE | 2018-07-02 12:05 | Pulmonology Progress Note ---
Assessment/Plan Assessment/Plan Problem List: 1. Acute on chronic hypercapnic respiratory failure -intubated 06/02; extubated 06/10 -reintubated 06/17 -trach 06/23 shiley 8 2. R lung collapse, mucous plugging - resolved 3. Pulmonary edema 4. chronic obstructive asthma 5. Pneumonia 6. Hx afib 7. MRSA pna, recurrent fever and increased leukocytosis 8. ESBL E.coli pna 9. C.diff colitis 10. Pleural effusion -06/28 R thoracentesis; 600 cc Plan: -cont mechanical ventilatory support -SIMV trials tomorrow -aggressive pulmonary hygiene with duonebs/mucomyst/suctioning q4 -monitor volumes -monitor renal function -abx per ID -PEG done -seroquel 12.5 mg qhs d/c planning LTACH Case d/w Dr. Valderrama Subjective ROS Limited/Unobtainable: Yes Interval Events: Not tolerating pressure support. Awake and agitated Allergies: Coded Allergies: Mushroom (Verified Allergy, Severe, 05/28/18) MORPHINE (Unverified Allergy, Intermediate, Itching, 01/04/15) PENICILLINS (Unverified Allergy, Intermediate, Hives, 06/25/18) Tolerates cephalosporins and carbapenems CELECOXIB (Verified Allergy, Mild, 01/15/09) Objective Last 24 Hour Vital Signs Date Time Temp Pulse Resp B/P (MAP) Pulse Ox O2 Delivery O2 Flow Rate FiO2 07/02/18 10:33 Mechanical Ventilator 07/02/18 10:33 Mechanical Ventilator 07/02/18 10:30 81 20 35 35 07/02/18 09:07 75 162/80 07/02/18 09:00 71 16 35 35 07/02/18 09:00 99 07/02/18 08:00 99.7 73 21 162/80 (107) 100 07/02/18 08:00 69 07/02/18 08:00 Mechanical Ventilator 07/02/18 08:00 35 07/02/18 06:40 Mechanical Ventilator 07/02/18 06:40 Mechanical Ventilator 07/02/18 06:40 70 16 35 35 07/02/18 05:21 73 16 35 35 07/02/18 04:00 Mechanical Ventilator 07/02/18 04:00 35 07/02/18 04:00 97.9 71 19 132/58 (82) 98 07/02/18 04:00 63 07/02/18 03:06 Mechanical Ventilator 07/02/18 03:05 Mechanical Ventilator 07/02/18 03:04 61 16 35 35 07/02/18 01:57 66 19 Mechanical Ventilator 35 07/02/18 01:29 66 19 35 35 07/02/18 00:00 35 07/02/18 00:00 62 07/02/18 00:00 98.0 64 16 144/63 (90) 97 07/02/18 00:00 Mechanical Ventilator 07/01/18 23:11 Mechanical Ventilator 07/01/18 23:10 Mechanical Ventilator 07/01/18 23:09 62 16 35 35 07/01/18 21:06 78 20 35 35 07/01/18 20:00 98.2 83 21 148/70 (96) 95 07/01/18 20:00 35 07/01/18 20:00 Mechanical Ventilator 07/01/18 20:00 84 07/01/18 18:58 Mechanical Ventilator 07/01/18 18:57 Mechanical Ventilator 07/01/18 18:55 74 17 35 35 07/01/18 16:41 79 20 100 Mechanical Ventilator 35 07/01/18 16:41 87 20 35 07/01/18 16:41 79 20 100 Mechanical Ventilator 35 07/01/18 16:00 35 07/01/18 16:00 Mechanical Ventilator 07/01/18 16:00 91 07/01/18 16:00 98.1 85 18 157/79 (105) 96 07/01/18 13:25 82 20 35 Intake and Output 07/01/18 07/02/18 19:00 07:00 Intake Total 736.667 ml 566 ml Output Total 1025 ml 750 ml Balance -288.333 ml -184 ml IV Total 546.667 ml 566 ml Tube Feeding 40 ml Other 150 ml Output Urine Total 1000 ml 675 ml Stool Total 25 ml 75 ml # Voids 1 General Appearance: no acute distress HEENT: mucous membranes moist Respiratory/Chest: decreased breath sounds Cardiovascular: normal rate Abdomen: soft, non tender Extremities: no edema Laboratory Tests 07/02/18 04:49: White Blood Count 8.0, Red Blood Count 4.06L, Hemoglobin 9.3L, Hematocrit 30.7L , Mean Corpuscular Volume 76L, Mean Corpuscular Hemoglobin 22.8L, Mean Corpuscular Hemoglobin Concent 30.1L, Red Cell Distribution Width 18.3H, Platelet Count 225, Mean Platelet Volume 7.0, Neutrophils (%) (Auto) 53.4, Lymphocytes (%) (Auto) 27.2, Monocytes (%) (Auto) 6.7, Eosinophils (%) (Auto) 11.2H, Basophils (%) (Auto) 1.5 Current Medications Medications (Trade) Dose Ordered Sig/Ann Route PRN Reason Start Time Stop Time Status Last Admin Dose Admin Acetaminophen (Tylenol) 650 mg Q4H PRN ORAL Mild Pain/Temp > 100.5 06/26/18 15:30 07/16/18 19:18 06/27/18 17:06 Acetylcysteine (Mucomyst) 100 mg Q4HRT HHN 06/26/18 15:00 07/09/18 10:59 07/01/18 12:24 Amiodarone HCl (Cordarone) 200 mg DAILY@1800 GT 06/26/18 18:00 07/24/18 17:59 07/01/18 18:29 Amlodipine Besylate (Norvasc) 2.5 mg DAILY ORAL 06/27/18 09:00 07/25/18 08:59 07/02/18 09:07 Chlorhexidine Gluconate (Myra-Hex 2%) 1 applic DAILY@2000 TOPIC 06/26/18 20:00 07/02/18 19:59 06/30/18 20:27 Dextrose/Sodium Chloride 1,000 ml @ 50 mls/hr Q20H IV 07/01/18 08:00 07/31/18 07:59 07/02/18 01:40 Lactobacillus Acidophilus (Culturelle) 1 tab TWICE A DAY GT 06/26/18 18:00 07/22/18 17:59 07/02/18 09:07 Lansoprazole (Prevacid) 30 mg DAILY GT 06/30/18 09:00 07/30/18 08:59 07/02/18 09:07 Metoprolol Tartrate (Lopressor) 5 mg Q6H PRN IVP HR > 125 06/26/18 18:00 07/16/18 17:59 Ondansetron HCl (Zofran) 4 mg Q6H PRN IVP Nausea & Vomiting 06/26/18 14:00 07/16/18 13:59 Quetiapine Fumarate (SEROquel) 12.5 mg QHS ORAL 06/29/18 21:00 07/29/18 20:59 07/01/18 20:03 Vancomycin HCl (Firvanq) 125 mg FOUR TIMES A DAY ORAL 07/02/18 00:00 07/09/18 00:00 07/02/18 09:08 Varinder De Souza MD Jul 02, 2018 12:05
--- NOTE | 2018-07-02 12:22 | Infectious Diseases Prog Note ---
Assessment/Plan Assessment/Plan Assessment/Plan 87 yo feamle with PMHx of COPD, HTN, and A.fib sent to the ED [facility] for SOB. Sepsis;improving - Likely PNA 06/21 CXR: Slightly increased right lung opacity, suspect increasing pleural fluid.Increased retrocardiac consolidation 06/17 CXR: Increasing right lung opacity, likely representing decreasing pleural fluid but may also represent increasing parenchymal consolidation 06/15 CXR: Increasing opacification right hemithorax, likely reflecting increasing pleural fluid but may also reflect increasing pulmonary parenchymal consolidation 06/14 CXR: Diffuse right lung hazy opacity appears similar to the prior exam. 06/12 CXR: : Hazy opacification of the right hemithorax, likely reflecting pleural fluid, is unchanged. 05/28/18 CXR with atalectasis vs consolidation in the right side. 06/01/18 CXR - Extensive right hemithorax opacification UA (-) sputum cx 06/15: MRSA (likely a colonizer at this point), ESBL E.coli Sputum Cx 05/28/18 - MRSA (Inf Neg) Urine legionella (-) Acute respiratory failure s/p intubation 06/16 -s/p trach 06/23 R>L pleural effusion; exudate -FLuid pH 8, protein 3.5 (serum 6.5), LDH 111 (serum 203: cx NTD -06/28 SP Successful ultrasound-guided R thoracentesis, yielding 600 milliliters of fluid Cdiff colitis Diarrhea persists -06/19 Cdif toxin a/b + R lung collapse: -06/16 CXR: Complete opacification of the right hemithorax. Probably due to complete atelectasis of the right lung, with evidence of abrupt occlusion of the right mainstem bronchus. Given findings on prior chest radiographs, there is probably significant component of pleural effusion as well. Positive blood Cx - Likely contaminant BCx 05/28/18 - CoNS BCX 05/30/18 - NGTD Leukocytosis , recurrent mild- SP Fever, SP COPD CAD A. fib s/p PEG 06/24 PLAN -Continue PO Vancomycin #/ for Cdiff , may consider Dificid if Diarrhea does not improve -06/26 SP Ertapenem #6 -06/20 SP Meropenem #5 -06/17 SP IV Vancomycin #21 -06/16 SP Cefepime #20 - Monitor CBC and Temps -f/u cx (Pleural) Subjective Allergies: Coded Allergies: Mushroom (Verified Allergy, Severe, 05/28/18) MORPHINE (Unverified Allergy, Intermediate, Itching, 01/04/15) PENICILLINS (Unverified Allergy, Intermediate, Hives, 06/25/18) Tolerates cephalosporins and carbapenems CELECOXIB (Verified Allergy, Mild, 01/15/09) Subjective on vent Objective Vital Signs Last 24 Hour Vital Signs Date Time Temp Pulse Resp B/P (MAP) Pulse Ox O2 Delivery O2 Flow Rate FiO2 07/02/18 10:33 Mechanical Ventilator 07/02/18 10:33 Mechanical Ventilator 07/02/18 10:30 81 20 35 35 07/02/18 09:07 75 162/80 07/02/18 09:00 71 16 35 35 07/02/18 09:00 99 07/02/18 08:00 99.7 73 21 162/80 (107) 100 07/02/18 08:00 69 07/02/18 08:00 Mechanical Ventilator 07/02/18 08:00 35 07/02/18 06:40 Mechanical Ventilator 07/02/18 06:40 Mechanical Ventilator 07/02/18 06:40 70 16 35 35 07/02/18 05:21 73 16 35 35 07/02/18 04:00 Mechanical Ventilator 07/02/18 04:00 35 07/02/18 04:00 97.9 71 19 132/58 (82) 98 07/02/18 04:00 63 07/02/18 03:06 Mechanical Ventilator 07/02/18 03:05 Mechanical Ventilator 07/02/18 03:04 61 16 35 35 07/02/18 01:57 66 19 Mechanical Ventilator 35 07/02/18 01:29 66 19 35 35 07/02/18 00:00 35 07/02/18 00:00 62 07/02/18 00:00 98.0 64 16 144/63 (90) 97 07/02/18 00:00 Mechanical Ventilator 07/01/18 23:11 Mechanical Ventilator 07/01/18 23:10 Mechanical Ventilator 07/01/18 23:09 62 16 35 35 07/01/18 21:06 78 20 35 35 07/01/18 20:00 98.2 83 21 148/70 (96) 95 07/01/18 20:00 35 07/01/18 20:00 Mechanical Ventilator 07/01/18 20:00 84 07/01/18 18:58 Mechanical Ventilator 07/01/18 18:57 Mechanical Ventilator 07/01/18 18:55 74 17 35 35 07/01/18 16:41 79 20 100 Mechanical Ventilator 35 07/01/18 16:41 87 20 35 07/01/18 16:41 79 20 100 Mechanical Ventilator 35 07/01/18 16:00 35 07/01/18 16:00 Mechanical Ventilator 07/01/18 16:00 91 07/01/18 16:00 98.1 85 18 157/79 (105) 96 07/01/18 13:25 82 20 35 Height (Feet): 5 Height (Inches): 4.00 Weight (Pounds): 119 HEENT: anicteric Respiratory/Chest: normal breath sounds Cardiovascular: regularly irregular Abdomen: non distended Laboratory Tests Test 07/02/18 04:49 White Blood Count 8.0 K/UL (4.8-10.8) Red Blood Count 4.06 M/UL (4.20-5.40) L Hemoglobin 9.3 G/DL (12.0-16.0) L Hematocrit 30.7 % (37.0-47.0) L Mean Corpuscular Volume 76 FL (80-99) L Mean Corpuscular Hemoglobin 22.8 PG (27.0-31.0) L Mean Corpuscular Hemoglobin Concent 30.1 G/DL (32.0-36.0) L Red Cell Distribution Width 18.3 % (11.6-14.8) H Platelet Count 225 K/UL (150-450) Mean Platelet Volume 7.0 FL (6.5-10.1) Neutrophils (%) (Auto) 53.4 % (45.0-75.0) Lymphocytes (%) (Auto) 27.2 % (20.0-45.0) Monocytes (%) (Auto) 6.7 % (1.0-10.0) Eosinophils (%) (Auto) 11.2 % (0.0-3.0) H Basophils (%) (Auto) 1.5 % (0.0-2.0) Current Medications Medications (Trade) Dose Ordered Sig/Ann Route PRN Reason Start Time Stop Time Status Last Admin Dose Admin Acetaminophen (Tylenol) 650 mg Q4H PRN ORAL Mild Pain/Temp > 100.5 06/26/18 15:30 07/16/18 19:18 06/27/18 17:06 Acetylcysteine (Mucomyst) 100 mg Q4HRT HHN 06/26/18 15:00 07/09/18 10:59 07/01/18 12:24 Amiodarone HCl (Cordarone) 200 mg DAILY@1800 GT 06/26/18 18:00 07/24/18 17:59 07/01/18 18:29 Amlodipine Besylate (Norvasc) 2.5 mg DAILY ORAL 06/27/18 09:00 07/25/18 08:59 07/02/18 09:07 Chlorhexidine Gluconate (Myra-Hex 2%) 1 applic DAILY@2000 TOPIC 06/26/18 20:00 07/02/18 19:59 06/30/18 20:27 Dextrose/Sodium Chloride 1,000 ml @ 50 mls/hr Q20H IV 07/01/18 08:00 07/31/18 07:59 07/02/18 01:40 Lactobacillus Acidophilus (Culturelle) 1 tab TWICE A DAY GT 06/26/18 18:00 07/22/18 17:59 07/02/18 09:07 Lansoprazole (Prevacid) 30 mg DAILY GT 06/30/18 09:00 07/30/18 08:59 07/02/18 09:07 Metoprolol Tartrate (Lopressor) 5 mg Q6H PRN IVP HR > 125 06/26/18 18:00 07/16/18 17:59 Ondansetron HCl (Zofran) 4 mg Q6H PRN IVP Nausea & Vomiting 06/26/18 14:00 07/16/18 13:59 Quetiapine Fumarate (SEROquel) 12.5 mg QHS ORAL 06/29/18 21:00 07/29/18 20:59 07/01/18 20:03 Vancomycin HCl (Firvanq) 125 mg FOUR TIMES A DAY ORAL 07/02/18 00:00 07/09/18 00:00 07/02/18 09:08 Dontae Salgado MD Jul 02, 2018 12:22
--- NOTE | 2018-07-02 14:30 | NUR ---
NURSE NOTES: vital signs stable, no co pain, yellow, clear urine, bed bath given,continue monitoring.
--- NOTE | 2018-07-02 14:38 | General Progress Note ---
Assessment/Plan Status: progressing Assessment/Plan This is an 87-year-old female admitted with chronic obstructive pulmonary disease exacerbation, right lower lobe infiltrate/pneumonia with altered mental status and acute kidney injury. The patient will be admitted to [facility] with the following medical problems. 1. Chronic obstructive pulmonary disease exacerbation and pneumonia. The patient has been seen by Pulmonary. Infectious Disease has been consulted, pancultured. IV antibiotics per ID. Continue with BiPAP and suction p.r.n. Transition to Venturi-mask when stable. 2. Acute kidney injury. We will monitor I's and O's, gentle intravenous fluids. Repeat a BMP in a.m. Consider Nephrology consult. 3. History of chronic atrial fibrillation. Continue with amiodarone. The patient is in sinus rhythm at this time. 4. History of hypertension. Continue with amlodipine and hold for systolic blood pressure less than 110. 5. Altered mental status, most likely from above conditions. We will keep n.p.o. except for medications and start IV fluids. 6. DVT prophylaxis with heparin subcutaneous and SCDs. 7. The patient is Full Code per policy. We will discuss with the family. 8. hypokalmia 9. Anemia 10. CHf acute on chronic 11. leucocytosis 12. ARF? ATN 13. C dif positive 14. hyperkalemia 15. pleural effusion 16. S/p Tracheostomy 06/22/18 17, hypernatremia Plan: - continue respiratory support - aggressive pulmonary suction - HD on hold as patient putting out better urine and createnine is improving - antibiotics per ID - on oral vanco for one more day - am labs - weaning off vent per pulmonary - Gi prophylaxis with protonix iv 40 mg daily - s/p Kayexalate - norvasc added for better BP cotrol - s/p PEG discussed with nurse Contact isolation for C dif now in [facility] - transfuse one unit of PRBC on 06-28-18 - Cpap trial - am labs patient is accepted to [facility] family would like to consider LTAC closer to this area will discuss with manager social responsibility Subjective Date patient seen: Jul 02, 2018 ROS Limited/Unobtainable: Yes Allergies: Coded Allergies: Mushroom (Verified Allergy, Severe, 05/28/18) MORPHINE (Unverified Allergy, Intermediate, Itching, 01/04/15) PENICILLINS (Unverified Allergy, Intermediate, Hives, 06/25/18) Tolerates cephalosporins and carbapenems CELECOXIB (Verified Allergy, Mild, 01/15/09) Subjective patient is now reintubated, in renal failure, HD on hold as making better urine , C dif positive on ngt vanco, s/p tracheostomy. s/p PEG, moved to [facility] on , on Cpap trila, s/p thoracentesis yesterday and transfusion, more alert today per nurse, still with diarrhea Vanco oral ordered by gi Objective Last 24 Hour Vital Signs Date Time Temp Pulse Resp B/P (MAP) Pulse Ox O2 Delivery O2 Flow Rate FiO2 07/02/18 12:48 75 16 35 35 07/02/18 12:00 83 07/02/18 12:00 98.4 88 20 150/77 (101) 98 07/02/18 12:00 Mechanical Ventilator 07/02/18 12:00 35 07/02/18 10:33 Mechanical Ventilator 07/02/18 10:33 Mechanical Ventilator 07/02/18 10:30 81 20 35 35 07/02/18 09:07 75 162/80 07/02/18 09:00 71 16 35 35 07/02/18 09:00 99 07/02/18 08:00 99.7 73 21 162/80 (107) 100 07/02/18 08:00 69 07/02/18 08:00 Mechanical Ventilator 07/02/18 08:00 35 07/02/18 06:40 Mechanical Ventilator 07/02/18 06:40 Mechanical Ventilator 07/02/18 06:40 70 16 35 35 07/02/18 05:21 73 16 35 35 07/02/18 04:00 Mechanical Ventilator 07/02/18 04:00 35 07/02/18 04:00 97.9 71 19 132/58 (82) 98 07/02/18 04:00 63 07/02/18 03:06 Mechanical Ventilator 07/02/18 03:05 Mechanical Ventilator 07/02/18 03:04 61 16 35 35 07/02/18 01:57 66 19 Mechanical Ventilator 35 07/02/18 01:29 66 19 35 35 07/02/18 00:00 35 07/02/18 00:00 62 07/02/18 00:00 98.0 64 16 144/63 (90) 97 07/02/18 00:00 Mechanical Ventilator 07/01/18 23:11 Mechanical Ventilator 07/01/18 23:10 Mechanical Ventilator 07/01/18 23:09 62 16 35 35 07/01/18 21:06 78 20 35 35 07/01/18 20:00 98.2 83 21 148/70 (96) 95 07/01/18 20:00 35 07/01/18 20:00 Mechanical Ventilator 07/01/18 20:00 84 07/01/18 18:58 Mechanical Ventilator 07/01/18 18:57 Mechanical Ventilator 07/01/18 18:55 74 17 35 35 07/01/18 16:41 79 20 100 Mechanical Ventilator 35 07/01/18 16:41 87 20 35 07/01/18 16:41 79 20 100 Mechanical Ventilator 35 07/01/18 16:00 35 07/01/18 16:00 Mechanical Ventilator 07/01/18 16:00 91 07/01/18 16:00 98.1 85 18 157/79 (105) 96 Intake and Output 07/01/18 07/02/18 19:00 07:00 Intake Total 736.667 ml 566 ml Output Total 1025 ml 750 ml Balance -288.333 ml -184 ml IV Total 546.667 ml 566 ml Tube Feeding 40 ml Other 150 ml Output Urine Total 1000 ml 675 ml Stool Total 25 ml 75 ml # Voids 1 Laboratory Tests 07/02/18 04:49: White Blood Count 8.0, Red Blood Count 4.06L, Hemoglobin 9.3L, Hematocrit 30.7L , Mean Corpuscular Volume 76L, Mean Corpuscular Hemoglobin 22.8L, Mean Corpuscular Hemoglobin Concent 30.1L, Red Cell Distribution Width 18.3H, Platelet Count 225, Mean Platelet Volume 7.0, Neutrophils (%) (Auto) 53.4, Lymphocytes (%) (Auto) 27.2, Monocytes (%) (Auto) 6.7, Eosinophils (%) (Auto) 11.2H, Basophils (%) (Auto) 1.5 Height (Feet): 5 Height (Inches): 4.00 Weight (Pounds): 119 General Appearance: no apparent distress, alert EENT: PERRL/EOMI, pharynx normal Neck: non-tender, supple Cardiovascular: normal rate, regular rhythm, no gallop/murmur, no JVD Respiratory/Chest: decreased breath sounds Abdomen: non tender, soft, no mass Extremities: non-tender, normal inspection, no calf tenderness Edema: no edema noted Arm (L), no edema noted Arm (R), no edema noted Leg (L), no edema noted Leg (R), no edema noted Pedal (L), no edema noted Pedal (R), no edema noted Generalized Neurologic: alert Skin: warm/dry Lymphatic: normal anterior cervical (L), normal anterior cervical (R), normal posterior cervical (L), normal posterior cervical (R), normal submandibular (L) , normal submandibular (R), normal supraclavicular (L), normal supraclavicular ( R), normal axillary (L), normal axillary (R), normal inguinal (L), normal inguinal (R), normal other Cruz Valderrama MD Jul 02, 2018 14:38
--- NOTE | 2018-07-02 15:51 | Cardiology Progress Note ---
Assessment/Plan Problem List: (1) encephalopathy due to toxin (2) Acute respiratory failure (3) Dementia (4) CAD (coronary artery disease) (5) Aspiration pneumonia (6) Afib Status: stable, progressing Status Narrative Pt w/ hx of PAF, CAD, adm w/ respiratory failure/ COPD/asthma exacerbation . Remains on vent/ s/p trach hx of PAF -maintaining SR on telemetry Assessment/Plan Continue vent support - wean as per pulm. Amiodarone for PAF No anticoagulation due to bleeding risk, anemia. Subjective ROS Limited/Unobtainable: Yes Subjective Cardiology for Dr. Sandhu Pt on vent/ alert Objective Last 24 Hour Vital Signs Date Time Temp Pulse Resp B/P (MAP) Pulse Ox O2 Delivery O2 Flow Rate FiO2 07/02/18 12:48 75 16 35 35 07/02/18 12:00 83 07/02/18 12:00 98.4 88 20 150/77 (101) 98 07/02/18 12:00 Mechanical Ventilator 07/02/18 12:00 35 07/02/18 10:33 Mechanical Ventilator 07/02/18 10:33 Mechanical Ventilator 07/02/18 10:30 81 20 35 35 07/02/18 09:07 75 162/80 07/02/18 09:00 71 16 35 35 07/02/18 09:00 99 07/02/18 08:00 99.7 73 21 162/80 (107) 100 07/02/18 08:00 69 07/02/18 08:00 Mechanical Ventilator 07/02/18 08:00 35 07/02/18 06:40 Mechanical Ventilator 07/02/18 06:40 Mechanical Ventilator 07/02/18 06:40 70 16 35 35 07/02/18 05:21 73 16 35 35 07/02/18 04:00 Mechanical Ventilator 07/02/18 04:00 35 07/02/18 04:00 97.9 71 19 132/58 (82) 98 07/02/18 04:00 63 07/02/18 03:06 Mechanical Ventilator 07/02/18 03:05 Mechanical Ventilator 07/02/18 03:04 61 16 35 35 07/02/18 01:57 66 19 Mechanical Ventilator 35 07/02/18 01:29 66 19 35 35 07/02/18 00:00 35 07/02/18 00:00 62 07/02/18 00:00 98.0 64 16 144/63 (90) 97 07/02/18 00:00 Mechanical Ventilator 07/01/18 23:11 Mechanical Ventilator 07/01/18 23:10 Mechanical Ventilator 07/01/18 23:09 62 16 35 35 07/01/18 21:06 78 20 35 35 07/01/18 20:00 98.2 83 21 148/70 (96) 95 07/01/18 20:00 35 07/01/18 20:00 Mechanical Ventilator 07/01/18 20:00 84 07/01/18 18:58 Mechanical Ventilator 07/01/18 18:57 Mechanical Ventilator 07/01/18 18:55 74 17 35 35 07/01/18 16:41 79 20 100 Mechanical Ventilator 35 07/01/18 16:41 87 20 35 07/01/18 16:41 79 20 100 Mechanical Ventilator 35 07/01/18 16:00 35 07/01/18 16:00 Mechanical Ventilator 07/01/18 16:00 91 07/01/18 16:00 98.1 85 18 157/79 (105) 96 General Appearance: WD/WN, no apparent distress, alert EENT: PERRL/EOMI Neck: no JVD Rhythm: NSR Cardiovascular: normal rate, regular rhythm, no gallop/murmur Respiratory/Chest: no respiratory distress, other - fairly clear anteriorly Abdomen: non tender, soft Extremities: no swelling, other - bilat scds Intake and Output 07/01/18 07/02/18 19:00 07:00 Intake Total 736.667 ml 566 ml Output Total 1025 ml 750 ml Balance -288.333 ml -184 ml IV Total 546.667 ml 566 ml Tube Feeding 40 ml Other 150 ml Output Urine Total 1000 ml 675 ml Stool Total 25 ml 75 ml # Voids 1 Laboratory Tests Test 07/02/18 04:49 White Blood Count 8.0 K/UL (4.8-10.8) Red Blood Count 4.06 M/UL (4.20-5.40) L Hemoglobin 9.3 G/DL (12.0-16.0) L Hematocrit 30.7 % (37.0-47.0) L Mean Corpuscular Volume 76 FL (80-99) L Mean Corpuscular Hemoglobin 22.8 PG (27.0-31.0) L Mean Corpuscular Hemoglobin Concent 30.1 G/DL (32.0-36.0) L Red Cell Distribution Width 18.3 % (11.6-14.8) H Platelet Count 225 K/UL (150-450) Mean Platelet Volume 7.0 FL (6.5-10.1) Neutrophils (%) (Auto) 53.4 % (45.0-75.0) Lymphocytes (%) (Auto) 27.2 % (20.0-45.0) Monocytes (%) (Auto) 6.7 % (1.0-10.0) Eosinophils (%) (Auto) 11.2 % (0.0-3.0) H Basophils (%) (Auto) 1.5 % (0.0-2.0) She Jones MD Jul 02, 2018 15:51
[2018-07-02 16:00] VITALS: BP 146/81
[2018-07-02] MEDS: Amiodarone 200mg tab GT SCH (18:16)
--- NOTE | 2018-07-02 19:03 | NUR ---
HAND-OFF: Report given to NELL JI,NO ANY DISTRESS AT THIS TIME.
--- NOTE | 2018-07-02 19:04 | NUR ---
NURSE NOTES: Received report from Karrie Jovel RN. PAtient seen in bed in semi lopes position. Alert, able to make easy needs known, able to nod and shake her head for no. Denies any pain at this time. Continues on vent with previous setting. Sp02 is 99%. IV site is to right upper arm 22G and is intact. IVF of D51/2NS is running at 50cc/hr. noted with Rectal tube, and is in place and intact. patient also has purewick and is intact. Bed is in lowest position. Call light is within easy reach while in bed. Will continue to monitor.
[2018-07-02 20:00] VITALS: BP 162/71
[2018-07-02] MEDS: Albuterol/Ipratropium 3ml neb HHN PRN (23:09)
[2018-07-03] VITALS: BP 153/74
[2018-07-03] MEDS: D5 1/2NS 1,000 ML IV SCH ×2 (00:38→20:01)
[2018-07-03] MEDS: Albuterol/Ipratropium 3ml neb HHN PRN ×6 (03:13→23:51)
[2018-07-03 04:00] VITALS: BP 126/64
--- NOTE | 2018-07-03 04:35 | NUR ---
Received patient on current noted vent settings. HOB is elevated. Trach Shiley #8 is patent and secure., and trach care done. Alarms are set and audible, plugged in to red outlet. Sx as needed. No respiratory distress noted.
--- NOTE | 2018-07-03 07:23 | NUR ---
HAND-OFF: Report given to Linda Jurado RN .
--- NOTE | 2018-07-03 07:25 | NUR ---
NURSE NOTES: Report received from Sola Gutierrez RN.Pt resting in bed with trach tube to vent on same settings,tolerating well,no resp distress presented,no signs of pain or discomfort,SR on the monitor,,GT clamped kept NPO,incontinent of urine with Purewick in placed ,IV site to MILY PICC line intact,skin warm and dry,SR up x2 HOB elevated bed lock in lowwest position,will continue with plans of care.
[2018-07-03 08:00] VITALS: BP 150/60
[2018-07-03] MEDS: Vancomycin oral 125mg/2.5ml ORAL SCH ×4 (08:53→20:18)
[2018-07-03] MEDS: Lactobacillus-GG tablet GT SCH (08:53)
[2018-07-03 09:46] LABS: ANION GAP 6 mmol/L (5-15); BLOOD UREA NITROGEN 55 mg/dL (7-18); CALCIUM 9.3 MG/DL (8.5-10.1); CARBON DIOXIDE 36 MMOL/L (21-32); CHLORIDE 105 MMOL/L (98-107); CREATININE 1.7 MG/DL (0.55-1.30); POTASSIUM 3.2 MMOL/L (3.5-5.1); SODIUM 147 MMOL/L (136-145)
[2018-07-03 09:52] LABS: ALANINE AMINOTRANSFERASE 25 U/L (12-78); ALBUMIN 2.5 G/DL (3.4-5.0); ALKALINE PHOSPHATASE 73 U/L (46-116); ASPARTATE AMINO TRANSFERASE 27 U/L (15-37); BILIRUBIN,DIRECT < 0.1 MG/DL (0.0-0.3); BILIRUBIN,TOTAL 0.3 MG/DL (0.2-1.0); PHOSPHORUS 4.2 MG/DL (2.5-4.9)
--- NOTE | 2018-07-03 10:55 | General Progress Note ---
Assessment/Plan Problem List: (1) COPD with acute exacerbation ICD Codes: J44.1 - Chronic obstructive pulmonary disease with (acute) exacerbation SNOMED: 905112055 (2) Pleural effusion ICD Codes: J90 - Pleural effusion, not elsewhere classified SNOMED: 32293662 (3) Afib ICD Codes: I48.91 - Unspecified atrial fibrillation SNOMED: 06053077 (4) CAD (coronary artery disease) ICD Codes: I25.10 - Atherosclerotic heart disease of circle coronary artery without angina pectoris SNOMED: 33956838 (5) Respiratory failure ICD Codes: J96.90 - Respiratory failure, unspecified, unspecified whether with hypoxia or hypercapnia SNOMED: 276920877 (6) Failure to thrive SNOMED: 72199882 (7) Acute renal failure ICD Codes: N17.9 - Acute kidney failure, unspecified SNOMED: 25690690 (8) C. difficile colitis ICD Codes: A04.72 - Enterocolitis due to Clostridium difficile, not specified as recurrent SNOMED: 843789363 Assessment/Plan dc prevacis dc lactobacillus cont vanco rectal tube start GTF Subjective ROS Limited/Unobtainable: No Allergies: Coded Allergies: Mushroom (Verified Allergy, Severe, 05/28/18) MORPHINE (Unverified Allergy, Intermediate, Itching, 01/04/15) PENICILLINS (Unverified Allergy, Intermediate, Hives, 06/25/18) Tolerates cephalosporins and carbapenems CELECOXIB (Verified Allergy, Mild, 01/15/09) Objective Last 24 Hour Vital Signs Date Time Temp Pulse Resp B/P (MAP) Pulse Ox O2 Delivery O2 Flow Rate FiO2 07/03/18 10:47 77 24 35 07/03/18 10:45 77 22 95 Mechanical Ventilator 35 07/03/18 09:09 82 16 35 07/03/18 09:08 100 07/03/18 08:54 82 150/60 07/03/18 08:00 Mechanical Ventilator 07/03/18 08:00 35 07/03/18 08:00 97.7 82 21 150/60 (90) 95 82 07/03/18 06:55 88 20 100 Mechanical Ventilator 35 07/03/18 06:45 80 20 35 07/03/18 06:45 80 20 100 Mechanical Ventilator 35 07/03/18 04:50 66 16 35 35 07/03/18 04:00 98.1 75 16 126/64 (84) 97 07/03/18 04:00 35 07/03/18 04:00 Mechanical Ventilator 07/03/18 03:35 65 07/03/18 03:30 74 18 100 Mechanical Ventilator 35 07/03/18 03:19 63 16 100 Mechanical Ventilator 35 07/03/18 03:18 63 16 35 35 07/03/18 01:05 69 16 35 35 07/03/18 00:00 35 07/03/18 00:00 Mechanical Ventilator 07/03/18 00:00 98.5 70 16 153/74 (100) 99 07/02/18 23:36 66 07/02/18 23:26 68 18 100 Mechanical Ventilator 35 07/02/18 23:18 66 17 100 Mechanical Ventilator 35 07/02/18 23:16 66 17 35 35 07/02/18 21:25 64 16 35 35 07/02/18 20:00 98.7 65 16 162/71 (101) 98 07/02/18 20:00 35 07/02/18 20:00 Mechanical Ventilator 07/02/18 19:34 74 07/02/18 19:10 Mechanical Ventilator 07/02/18 19:09 Mechanical Ventilator 07/02/18 19:07 70 17 35 35 07/02/18 17:00 80 16 35 35 07/02/18 16:00 Mechanical Ventilator 07/02/18 16:00 78 18 35 35 07/02/18 16:00 35 07/02/18 16:00 Mechanical Ventilator 07/02/18 16:00 98.9 85 20 146/81 (102) 98 07/02/18 16:00 89 07/02/18 16:00 Mechanical Ventilator 07/02/18 12:48 75 16 35 35 07/02/18 12:00 83 07/02/18 12:00 98.4 88 20 150/77 (101) 98 07/02/18 12:00 Mechanical Ventilator 07/02/18 12:00 35 Intake and Output 07/02/18 07/03/18 18:59 06:59 Intake Total 600 ml 550 ml Output Total 400 ml 625 ml Balance 200 ml -75 ml Free Water 100 ml IV Total 600 ml 450 ml Output Urine Total 350 ml 550 ml Stool Total 50 ml 75 ml # Voids 1 Laboratory Tests 07/03/18 06:00: Sodium Level 147H, Potassium Level 3.2L, Chloride Level 105, Carbon Dioxide Level 36H, Anion Gap 6, Blood Urea Nitrogen 55H, Creatinine 1.7H, Estimat Glomerular Filtration Rate , Glucose Level 90, Uric Acid 7.3H, Calcium Level 9.3 , Phosphorus Level 4.2, Magnesium Level 1.6L, Total Bilirubin 0.3, Direct Bilirubin < 0.1, Aspartate Amino Transf (AST/SGOT) 27, Alanine Aminotransferase (ALT/SGPT) 25, Alkaline Phosphatase 73, C-Reactive Protein, Quantitative 9.7H, Pro-B-Type Natriuretic Peptide 1175H, Total Protein 6.7, Albumin 2.5L Height (Feet): 5 Height (Inches): 4.00 Weight (Pounds): 130 General Appearance: mild distress EENT: normal ENT inspection Neck: supple Cardiovascular: tachycardia Respiratory/Chest: decreased breath sounds Abdomen: normal bowel sounds, non tender, soft Extremities: non-tender Jacobo Acevedo MD Jul 03, 2018 10:55
[2018-07-03 12:00] VITALS: BP 154/72
--- NOTE | 2018-07-03 12:00 | NUR ---
NURSE NOTES: Pt started on tube feeding Vital AF 1.2 at 30 ml/hr with Goal 55ml/hr,will continue to monitor residual.
--- NOTE | 2018-07-03 12:59 | NUR ---
CASE MANAGEMENT: REVIEW 07/03/2018 SI: SEPSIS. ASPIRATION PNA. T 97.7 HR 82 RR 21 B/P 150/60 SATS 95% ON MECH VENT FiO2 35 NA 147 K 3.2 CO2 36 BUN 55 CR 1.7 IS: AMIODARONE PO QD PROTONIX IV QD VANCO HCl GT QID GT FEEDING NEPRO @40ML/HR STEP DOWN UNIT STATUS DCP: PATIENT IS FROM [facility] PLAN: DC PLANNING TO LTACH
[2018-07-03] MEDS ORDERED: Vancomycin oral 125mg/2.5ml ORAL SCH (13:00)
--- NOTE | 2018-07-03 13:08 | Pulmonology Progress Note ---
Assessment/Plan Assessment/Plan Problem List: 1. Acute on chronic hypercapnic respiratory failure -intubated 06/02; extubated 06/10 -reintubated 06/17 -trach 06/23 shiley 8 2. R lung collapse, mucous plugging - resolved 3. Pulmonary edema 4. chronic obstructive asthma 5. Pneumonia 6. Hx afib 7. MRSA pna, recurrent fever and increased leukocytosis 8. ESBL E.coli pna 9. C.diff colitis 10. Pleural effusion -06/28 R thoracentesis; 600 cc Plan: -cont mechanical ventilatory support -SIMV trials tomorrow -aggressive pulmonary hygiene with duonebs/mucomyst/suctioning q4 -monitor volumes -repeat CXR -monitor renal function -abx per ID -PEG done -seroquel 12.5 mg qhs d/c planning LTACH Case d/w Dr. Valderrama Subjective ROS Limited/Unobtainable: Yes Interval Events: Was tried on PS, did not tolerate. Agitated. No secretions Allergies: Coded Allergies: Mushroom (Verified Allergy, Severe, 05/28/18) MORPHINE (Unverified Allergy, Intermediate, Itching, 01/04/15) PENICILLINS (Unverified Allergy, Intermediate, Hives, 06/25/18) Tolerates cephalosporins and carbapenems CELECOXIB (Verified Allergy, Mild, 01/15/09) Objective Last 24 Hour Vital Signs Date Time Temp Pulse Resp B/P (MAP) Pulse Ox O2 Delivery O2 Flow Rate FiO2 07/03/18 11:00 90 20 100 Mechanical Ventilator 35 07/03/18 10:47 77 24 35 07/03/18 10:45 77 22 95 Mechanical Ventilator 35 07/03/18 09:09 82 16 35 07/03/18 09:08 100 07/03/18 08:54 82 150/60 07/03/18 08:00 Mechanical Ventilator 07/03/18 08:00 35 07/03/18 08:00 97.7 82 21 150/60 (90) 95 82 07/03/18 06:55 88 20 100 Mechanical Ventilator 35 07/03/18 06:45 80 20 35 07/03/18 06:45 80 20 100 Mechanical Ventilator 35 07/03/18 04:50 66 16 35 35 07/03/18 04:00 98.1 75 16 126/64 (84) 97 07/03/18 04:00 35 07/03/18 04:00 Mechanical Ventilator 07/03/18 03:35 65 07/03/18 03:30 74 18 100 Mechanical Ventilator 35 07/03/18 03:19 63 16 100 Mechanical Ventilator 35 07/03/18 03:18 63 16 35 35 07/03/18 01:05 69 16 35 35 07/03/18 00:00 35 07/03/18 00:00 Mechanical Ventilator 07/03/18 00:00 98.5 70 16 153/74 (100) 99 07/02/18 23:36 66 07/02/18 23:26 68 18 100 Mechanical Ventilator 35 07/02/18 23:18 66 17 100 Mechanical Ventilator 35 07/02/18 23:16 66 17 35 35 07/02/18 21:25 64 16 35 35 07/02/18 20:00 98.7 65 16 162/71 (101) 98 07/02/18 20:00 35 07/02/18 20:00 Mechanical Ventilator 07/02/18 19:34 74 07/02/18 19:10 Mechanical Ventilator 07/02/18 19:09 Mechanical Ventilator 07/02/18 19:07 70 17 35 35 07/02/18 17:00 80 16 35 35 07/02/18 16:00 Mechanical Ventilator 07/02/18 16:00 78 18 35 35 07/02/18 16:00 35 07/02/18 16:00 Mechanical Ventilator 07/02/18 16:00 98.9 85 20 146/81 (102) 98 07/02/18 16:00 89 07/02/18 16:00 Mechanical Ventilator Intake and Output 07/02/18 07/03/18 19:00 07:00 Intake Total 600 ml 500 ml Output Total 400 ml 625 ml Balance 200 ml -125 ml Free Water 100 ml IV Total 600 ml 400 ml Output Urine Total 350 ml 550 ml Stool Total 50 ml 75 ml # Voids 1 General Appearance: no acute distress HEENT: mucous membranes moist, PERRL Respiratory/Chest: crackles/rales Cardiovascular: normal rate, regular rhythm Abdomen: soft, non tender Extremities: no edema Neurologic/Psychiatric: responsive Laboratory Tests 07/03/18 06:00: Sodium Level 147H, Potassium Level 3.2L, Chloride Level 105, Carbon Dioxide Level 36H, Anion Gap 6, Blood Urea Nitrogen 55H, Creatinine 1.7H, Estimat Glomerular Filtration Rate , Glucose Level 90, Uric Acid 7.3H, Calcium Level 9.3 , Phosphorus Level 4.2, Magnesium Level 1.6L, Total Bilirubin 0.3, Direct Bilirubin < 0.1, Aspartate Amino Transf (AST/SGOT) 27, Alanine Aminotransferase (ALT/SGPT) 25, Alkaline Phosphatase 73, C-Reactive Protein, Quantitative 9.7H, Pro-B-Type Natriuretic Peptide 1175H, Total Protein 6.7, Albumin 2.5L Current Medications Medications (Trade) Dose Ordered Sig/Ann Route PRN Reason Start Time Stop Time Status Last Admin Dose Admin Acetaminophen (Tylenol) 650 mg Q4H PRN ORAL Mild Pain/Temp > 100.5 06/26/18 15:30 07/16/18 19:18 06/27/18 17:06 Acetylcysteine (Mucomyst) 100 mg Q4HRT HHN 06/26/18 15:00 07/09/18 10:59 07/03/18 10:44 Albuterol/ Ipratropium (Albuterol/ Ipratropium) 3 ml Q4H PRN HHN Shortness of Breath 07/02/18 19:15 07/07/18 19:14 07/03/18 11:58 Amiodarone HCl (Cordarone) 200 mg DAILY@1800 GT 06/26/18 18:00 07/24/18 17:59 07/02/18 18:16 Amlodipine Besylate (Norvasc) 2.5 mg DAILY ORAL 06/27/18 09:00 07/25/18 08:59 07/03/18 08:54 Dextrose/Sodium Chloride 1,000 ml @ 50 mls/hr Q20H IV 07/01/18 08:00 07/31/18 07:59 07/03/18 00:38 Metoprolol Tartrate (Lopressor) 5 mg Q6H PRN IVP HR > 125 06/26/18 18:00 07/16/18 17:59 Ondansetron HCl (Zofran) 4 mg Q6H PRN IVP Nausea & Vomiting 06/26/18 14:00 07/16/18 13:59 Quetiapine Fumarate (SEROquel) 12.5 mg QHS ORAL 06/29/18 21:00 07/29/18 20:59 07/02/18 20:08 Vancomycin HCl (Firvanq) 125 mg FOUR TIMES A DAY ORAL 07/03/18 13:00 07/07/18 09:01 Varinder De Souza MD Jul 03, 2018 13:07
--- NOTE | 2018-07-03 13:25 | NUR ---
NURSE NOTES: Pt started on weaning process again,RT placed pt on SIMV and pressure support of 8,appears to tolerate weaning ,no distress presented.
--- NOTE | 2018-07-03 15:00 | NUR ---
NURSE NOTES: Dr newton aware of pt's on weaning process,pt able to tolerate x2 hrs.pt placed back to AC mode ,pt getting anxious.
--- NOTE | 2018-07-03 15:12 | Nephrology Progress Note ---
Assessment/Plan Problem List: (1) Acute renal failure Assessment: Cr lowering (2) Anuria (3) Acute respiratory failure Assessment: on vent (4) Dementia (5) Afib Assessment Cr lowering Urine out put rising Cr lowering other conditions: (1) Acute respiratory failure (2) Aspiration pneumonia (3) Acute encephalopathy (4) Pleural effusion (5) COPD (chronic obstructive pulmonary disease) (6) CAD (coronary artery disease) (7) Dementia Plan Now trached and Pegged Cr lowering- Urine out put higher monitor vanco level K and Phos and Mag as needed Anemia porter Adjust BP meds fu Lytes Gastric support per orders Subjective ROS Limited/Unobtainable: Yes Objective Objective Last 24 Hour Vital Signs Date Time Temp Pulse Resp B/P (MAP) Pulse Ox O2 Delivery O2 Flow Rate FiO2 07/03/18 13:25 35 07/03/18 13:20 88 26 35 07/03/18 12:00 98.6 76 19 154/72 (99) 98 07/03/18 12:00 Mechanical Ventilator 07/03/18 12:00 67 07/03/18 12:00 35 07/03/18 11:00 90 20 100 Mechanical Ventilator 35 07/03/18 10:47 77 24 35 07/03/18 10:45 77 22 95 Mechanical Ventilator 35 07/03/18 09:09 82 16 35 07/03/18 09:08 100 07/03/18 08:54 82 150/60 07/03/18 08:00 Mechanical Ventilator 07/03/18 08:00 82 07/03/18 08:00 35 07/03/18 08:00 97.7 82 21 150/60 (90) 95 82 07/03/18 06:55 88 20 100 Mechanical Ventilator 35 07/03/18 06:45 80 20 35 07/03/18 06:45 80 20 100 Mechanical Ventilator 35 07/03/18 04:50 66 16 35 35 07/03/18 04:00 98.1 75 16 126/64 (84) 97 07/03/18 04:00 35 07/03/18 04:00 Mechanical Ventilator 07/03/18 03:35 65 07/03/18 03:30 74 18 100 Mechanical Ventilator 35 07/03/18 03:19 63 16 100 Mechanical Ventilator 35 07/03/18 03:18 63 16 35 35 07/03/18 01:05 69 16 35 35 07/03/18 00:00 35 07/03/18 00:00 Mechanical Ventilator 07/03/18 00:00 98.5 70 16 153/74 (100) 99 07/02/18 23:36 66 07/02/18 23:26 68 18 100 Mechanical Ventilator 35 07/02/18 23:18 66 17 100 Mechanical Ventilator 35 07/02/18 23:16 66 17 35 35 07/02/18 21:25 64 16 35 35 07/02/18 20:00 98.7 65 16 162/71 (101) 98 07/02/18 20:00 35 07/02/18 20:00 Mechanical Ventilator 07/02/18 19:34 74 07/02/18 19:10 Mechanical Ventilator 07/02/18 19:09 Mechanical Ventilator 07/02/18 19:07 70 17 35 35 07/02/18 17:00 80 16 35 35 07/02/18 16:00 Mechanical Ventilator 07/02/18 16:00 78 18 35 35 07/02/18 16:00 35 07/02/18 16:00 Mechanical Ventilator 07/02/18 16:00 98.9 85 20 146/81 (102) 98 07/02/18 16:00 89 07/02/18 16:00 Mechanical Ventilator Intake and Output 07/02/18 07/03/18 19:00 07:00 Intake Total 600 ml 500 ml Output Total 400 ml 625 ml Balance 200 ml -125 ml Free Water 100 ml IV Total 600 ml 400 ml Output Urine Total 350 ml 550 ml Stool Total 50 ml 75 ml # Voids 1 Laboratory Tests 07/03/18 06:00: Sodium Level 147H, Potassium Level 3.2L, Chloride Level 105, Carbon Dioxide Level 36H, Anion Gap 6, Blood Urea Nitrogen 55H, Creatinine 1.7H, Estimat Glomerular Filtration Rate , Glucose Level 90, Uric Acid 7.3H, Calcium Level 9.3 , Phosphorus Level 4.2, Magnesium Level 1.6L, Total Bilirubin 0.3, Direct Bilirubin < 0.1, Aspartate Amino Transf (AST/SGOT) 27, Alanine Aminotransferase (ALT/SGPT) 25, Alkaline Phosphatase 73, C-Reactive Protein, Quantitative 9.7H, Pro-B-Type Natriuretic Peptide 1175H, Total Protein 6.7, Albumin 2.5L Height (Feet): 5 Height (Inches): 4.00 Weight (Pounds): 130 EENT: other - trach Cardiovascular: normal rate Respiratory/Chest: decreased breath sounds Abdomen: distended Objective no change Kendrick Jimenez MD Jul 03, 2018 15:12
--- NOTE | 2018-07-03 15:24 | Cardiology Progress Note ---
Assessment/Plan Problem List: (1) encephalopathy due to toxin (2) Acute respiratory failure (3) Dementia (4) CAD (coronary artery disease) (5) Aspiration pneumonia (6) Afib Status: stable, progressing Status Narrative Pt w/ hx of PAF, CAD, adm w/ respiratory failure/ COPD/asthma exacerbation . Remains on vent/ s/p trach hx of PAF -maintaining SR on telemetry CKD - renal parameters improving Hypokalemia Assessment/Plan Continue vent support - wean as per pulm. Amiodarone maintenance for PAF Supplement K Followup labs in am Subjective ROS Limited/Unobtainable: Yes Subjective Cardiology for Dr. Sandhu Pt on vent/ alert and intermittently agitated Objective Last 24 Hour Vital Signs Date Time Temp Pulse Resp B/P (MAP) Pulse Ox O2 Delivery O2 Flow Rate FiO2 07/03/18 13:25 35 07/03/18 13:20 88 26 35 07/03/18 12:00 98.6 76 19 154/72 (99) 98 07/03/18 12:00 Mechanical Ventilator 07/03/18 12:00 67 07/03/18 12:00 35 07/03/18 11:00 90 20 100 Mechanical Ventilator 35 07/03/18 10:47 77 24 35 07/03/18 10:45 77 22 95 Mechanical Ventilator 35 07/03/18 09:09 82 16 35 07/03/18 09:08 100 07/03/18 08:54 82 150/60 07/03/18 08:00 Mechanical Ventilator 07/03/18 08:00 82 07/03/18 08:00 35 07/03/18 08:00 97.7 82 21 150/60 (90) 95 82 07/03/18 06:55 88 20 100 Mechanical Ventilator 35 07/03/18 06:45 80 20 35 07/03/18 06:45 80 20 100 Mechanical Ventilator 35 07/03/18 04:50 66 16 35 35 07/03/18 04:00 98.1 75 16 126/64 (84) 97 07/03/18 04:00 35 07/03/18 04:00 Mechanical Ventilator 07/03/18 03:35 65 07/03/18 03:30 74 18 100 Mechanical Ventilator 35 07/03/18 03:19 63 16 100 Mechanical Ventilator 35 07/03/18 03:18 63 16 35 35 07/03/18 01:05 69 16 35 35 07/03/18 00:00 35 07/03/18 00:00 Mechanical Ventilator 07/03/18 00:00 98.5 70 16 153/74 (100) 99 07/02/18 23:36 66 07/02/18 23:26 68 18 100 Mechanical Ventilator 35 07/02/18 23:18 66 17 100 Mechanical Ventilator 35 07/02/18 23:16 66 17 35 35 07/02/18 21:25 64 16 35 35 07/02/18 20:00 98.7 65 16 162/71 (101) 98 07/02/18 20:00 35 07/02/18 20:00 Mechanical Ventilator 07/02/18 19:34 74 07/02/18 19:10 Mechanical Ventilator 07/02/18 19:09 Mechanical Ventilator 07/02/18 19:07 70 17 35 35 07/02/18 17:00 80 16 35 35 07/02/18 16:00 Mechanical Ventilator 07/02/18 16:00 78 18 35 35 07/02/18 16:00 35 07/02/18 16:00 Mechanical Ventilator 07/02/18 16:00 98.9 85 20 146/81 (102) 98 07/02/18 16:00 89 07/02/18 16:00 Mechanical Ventilator General Appearance: WD/WN, alert, on vent EENT: PERRL/EOMI Neck: other - trach site clean Rhythm: NSR Cardiovascular: normal rate, regular rhythm Respiratory/Chest: other - scattered rhonchi anteriorly Abdomen: non tender, soft Extremities: no swelling Intake and Output 07/02/18 07/03/18 19:00 07:00 Intake Total 600 ml 500 ml Output Total 400 ml 625 ml Balance 200 ml -125 ml Free Water 100 ml IV Total 600 ml 400 ml Output Urine Total 350 ml 550 ml Stool Total 50 ml 75 ml # Voids 1 Laboratory Tests Test 07/03/18 06:00 Sodium Level 147 MMOL/L (136-145) H Potassium Level 3.2 MMOL/L (3.5-5.1) L Chloride Level 105 MMOL/L (98-107) Carbon Dioxide Level 36 MMOL/L (21-32) H Anion Gap 6 mmol/L (5-15) Blood Urea Nitrogen 55 mg/dL (7-18) H Creatinine 1.7 MG/DL (0.55-1.30) H Estimat Glomerular Filtration Rate mL/min (>60) Glucose Level 90 MG/DL (74-106) Uric Acid 7.3 MG/DL (2.6-7.2) H Calcium Level 9.3 MG/DL (8.5-10.1) Phosphorus Level 4.2 MG/DL (2.5-4.9) Magnesium Level 1.6 MG/DL (1.8-2.4) L Total Bilirubin 0.3 MG/DL (0.2-1.0) Direct Bilirubin < 0.1 MG/DL (0.0-0.3) Aspartate Amino Transf (AST/SGOT) 27 U/L (15-37) Alanine Aminotransferase (ALT/SGPT) 25 U/L (12-78) Alkaline Phosphatase 73 U/L (46-116) C-Reactive Protein, Quantitative 9.7 mg/dL (0.00-0.90) H Pro-B-Type Natriuretic Peptide 1175 pg/mL (0-125) H Total Protein 6.7 G/DL (6.4-8.2) Albumin 2.5 G/DL (3.4-5.0) She Chaidez MD Jul 03, 2018 15:23
[2018-07-03 16:00] VITALS: BP 142/69
[2018-07-03] MEDS ORDERED: Tubing IV Secondary IV ONE (17:24)
[2018-07-03] MEDS ORDERED: D5 1/2NS 1000ml IV ONE (17:24)
[2018-07-03] MEDS ORDERED: NS 275ml ONE (17:24)
[2018-07-03] MEDS: Amiodarone 200mg tab GT SCH (17:27)
--- NOTE | 2018-07-03 18:00 | NUR ---
6NURSE NOTES: Pt resting in bed no resp distress presented,family member at bedside.
--- NOTE | 2018-07-03 19:24 | General Progress Note ---
Assessment/Plan Status: progressing Assessment/Plan This is an 87-year-old female admitted with chronic obstructive pulmonary disease exacerbation, right lower lobe infiltrate/pneumonia with altered mental status and acute kidney injury. The patient will be admitted to [facility] with the following medical problems. 1. Chronic obstructive pulmonary disease exacerbation and pneumonia. The patient has been seen by Pulmonary. Infectious Disease has been consulted, pancultured. IV antibiotics per ID. Continue with BiPAP and suction p.r.n. Transition to Venturi-mask when stable. 2. Acute kidney injury. We will monitor I's and O's, gentle intravenous fluids. Repeat a BMP in a.m. Consider Nephrology consult. 3. History of chronic atrial fibrillation. Continue with amiodarone. The patient is in sinus rhythm at this time. 4. History of hypertension. Continue with amlodipine and hold for systolic blood pressure less than 110. 5. Altered mental status, most likely from above conditions. We will keep n.p.o. except for medications and start IV fluids. 6. DVT prophylaxis with heparin subcutaneous and SCDs. 7. The patient is Full Code per policy. We will discuss with the family. 8. hypokalmia 9. Anemia 10. CHf acute on chronic 11. leucocytosis 12. ARF? ATN 13. C dif positive 14. hyperkalemia 15. pleural effusion 16. S/p Tracheostomy 06/22/18 17, hypernatremia Plan: - continue respiratory support - aggressive pulmonary suction - HD on hold as patient putting out better urine and createnine is improving - antibiotics per ID - on oral vanco for one more day - am labs - weaning off vent per pulmonary - Gi prophylaxis with protonix iv 40 mg daily - s/p Kayexalate - norvasc added for better BP cotrol - s/p PEG discussed with nurse Contact isolation for C dif now in [facility] - transfuse one unit of PRBC on 06-28-18 - Cpap trial - am labs - continue 21 day course of oral Vanco for C. Dif patient is accepted to [facility] family now agree on Tran will dc tomorrow if bed available Subjective Date patient seen: Jul 03, 2018 ROS Limited/Unobtainable: Yes Allergies: Coded Allergies: Mushroom (Verified Allergy, Severe, 05/28/18) MORPHINE (Unverified Allergy, Intermediate, Itching, 01/04/15) PENICILLINS (Unverified Allergy, Intermediate, Hives, 06/25/18) Tolerates cephalosporins and carbapenems CELECOXIB (Verified Allergy, Mild, 01/15/09) Subjective patient is now reintubated, in renal failure, HD on hold as making better urine , C dif positive on ngt vanco, s/p tracheostomy. s/p PEG, moved to [facility] on , on Cpap trila, s/p thoracentesis yesterday and transfusion, more alert today per nurse, still with diarrhea Vanco oral ordered by gi Objective Last 24 Hour Vital Signs Date Time Temp Pulse Resp B/P (MAP) Pulse Ox O2 Delivery O2 Flow Rate FiO2 07/03/18 16:31 85 16 35 07/03/18 16:00 Mechanical Ventilator 07/03/18 16:00 97.7 89 17 142/69 (93) 94 07/03/18 16:00 99 07/03/18 15:32 102 24 100 Mechanical Ventilator 35 07/03/18 15:29 88 24 95 Mechanical Ventilator 35 07/03/18 15:00 90 24 35 07/03/18 13:25 35 07/03/18 13:20 88 26 35 07/03/18 12:00 98.6 76 19 154/72 (99) 98 07/03/18 12:00 Mechanical Ventilator 07/03/18 12:00 67 07/03/18 12:00 35 07/03/18 11:00 90 20 100 Mechanical Ventilator 35 07/03/18 10:47 77 24 35 07/03/18 10:45 77 22 95 Mechanical Ventilator 35 07/03/18 09:09 82 16 35 07/03/18 09:08 100 07/03/18 08:54 82 150/60 07/03/18 08:00 Mechanical Ventilator 07/03/18 08:00 82 07/03/18 08:00 35 07/03/18 08:00 97.7 82 21 150/60 (90) 95 82 07/03/18 06:55 88 20 100 Mechanical Ventilator 35 07/03/18 06:45 80 20 35 07/03/18 06:45 80 20 100 Mechanical Ventilator 35 07/03/18 04:50 66 16 35 35 07/03/18 04:00 98.1 75 16 126/64 (84) 97 07/03/18 04:00 35 07/03/18 04:00 Mechanical Ventilator 07/03/18 03:35 65 07/03/18 03:30 74 18 100 Mechanical Ventilator 35 07/03/18 03:19 63 16 100 Mechanical Ventilator 35 07/03/18 03:18 63 16 35 35 07/03/18 01:05 69 16 35 35 07/03/18 00:00 35 07/03/18 00:00 Mechanical Ventilator 07/03/18 00:00 98.5 70 16 153/74 (100) 99 07/02/18 23:36 66 07/02/18 23:26 68 18 100 Mechanical Ventilator 35 07/02/18 23:18 66 17 100 Mechanical Ventilator 35 07/02/18 23:16 66 17 35 35 07/02/18 21:25 64 16 35 35 07/02/18 20:00 98.7 65 16 162/71 (101) 98 07/02/18 20:00 35 07/02/18 20:00 Mechanical Ventilator 07/02/18 19:34 74 Intake and Output 07/02/18 07/03/18 19:00 07:00 Intake Total 600 ml 550 ml Output Total 400 ml 625 ml Balance 200 ml -75 ml Free Water 100 ml IV Total 600 ml 450 ml Output Urine Total 350 ml 550 ml Stool Total 50 ml 75 ml # Voids 1 Laboratory Tests 07/03/18 06:00: Sodium Level 147H, Potassium Level 3.2L, Chloride Level 105, Carbon Dioxide Level 36H, Anion Gap 6, Blood Urea Nitrogen 55H, Creatinine 1.7H, Estimat Glomerular Filtration Rate , Glucose Level 90, Uric Acid 7.3H, Calcium Level 9.3 , Phosphorus Level 4.2, Magnesium Level 1.6L, Total Bilirubin 0.3, Direct Bilirubin < 0.1, Aspartate Amino Transf (AST/SGOT) 27, Alanine Aminotransferase (ALT/SGPT) 25, Alkaline Phosphatase 73, C-Reactive Protein, Quantitative 9.7H, Pro-B-Type Natriuretic Peptide 1175H, Total Protein 6.7, Albumin 2.5L Height (Feet): 5 Height (Inches): 4.00 Weight (Pounds): 130 General Appearance: no apparent distress, alert EENT: PERRL/EOMI, pharynx normal Neck: non-tender, supple Cardiovascular: normal rate, regular rhythm, no gallop/murmur, no JVD Respiratory/Chest: decreased breath sounds Abdomen: non tender, soft, no mass Extremities: non-tender, normal inspection, no calf tenderness Edema: no edema noted Arm (L), no edema noted Arm (R), no edema noted Leg (L), no edema noted Leg (R), no edema noted Pedal (L), no edema noted Pedal (R), no edema noted Generalized Neurologic: alert Skin: warm/dry Lymphatic: normal anterior cervical (L), normal anterior cervical (R), normal posterior cervical (L), normal posterior cervical (R), normal submandibular (L) , normal submandibular (R), normal supraclavicular (L), normal supraclavicular ( R), normal axillary (L), normal axillary (R), normal inguinal (L), normal inguinal (R), normal other Cruz Valderrama MD Jul 03, 2018 19:24
--- NOTE | 2018-07-03 19:45 | NUR ---
HAND-OFF: Report given to Alicia Carter RN.
--- NOTE | 2018-07-03 19:50 | NUR ---
NURSE NOTES: Received report from Adrien JI. pt in bed awake,alert able to make needs known to staff. Family at bedside. Family teaching provided regarding the patient isolation and proper use of PPE family with retuned demonstration and understanding. Patient vent to trach no s/s of acute distress. Denies any pain or discomfort. Gt intact running Vital AF 1.2 at 40cc/hr goal at 55cc/hr. Purewick intact draining clear urine. On P200 mattress for wound management. Contact isolation maintained and observed. Instructed patient to use call light for assistance. Bed alarm on. Bed locked and in low position. Will continue plan of care.
[2018-07-03 20:00] VITALS: BP 155/71
[2018-07-04] VITALS: BP 137/55
--- NOTE | 2018-07-04 | NUR ---
NURSE NOTES: Bed bath given.
[2018-07-04] MEDS: Albuterol/Ipratropium 3ml neb HHN PRN ×6 (02:42→22:58)
[2018-07-04 04:00] VITALS: BP 138/68
[2018-07-04 06:07] LABS: BASOPHILS % (AUTO) 1.1 % (0.0-2.0); EOSINOPHILS % (AUTO) 11.8 % (0.0-3.0); HEMATOCRIT 26.4 % (37.0-47.0); HEMOGLOBIN 8.1 G/DL (12.0-16.0); LYMPHOCYTES % (AUTO) 25.9 % (20.0-45.0); MEAN CORPUSCULAR VOLUME 74 FL (80-99); MONOCYTES % (AUTO) 9.9 % (1.0-10.0); NEUTROPHILS % (AUTO) 51.4 % (45.0-75.0); PLATELET COUNT 225 K/UL (150-450); RED BLOOD COUNT 3.56 M/UL (4.20-5.40); RED CELL DISTRIBUTION WIDTH 17.8 % (11.6-14.8); WHITE BLOOD COUNT 6.8 K/UL (4.8-10.8)
[2018-07-04 06:18] LABS: ANION GAP 6 mmol/L (5-15); BLOOD UREA NITROGEN 45 mg/dL (7-18); CALCIUM 8.9 MG/DL (8.5-10.1); CARBON DIOXIDE 35 MMOL/L (21-32); CHLORIDE 104 MMOL/L (98-107); CREATININE 1.6 MG/DL (0.55-1.30); POTASSIUM 3.2 MMOL/L (3.5-5.1); SODIUM 145 MMOL/L (136-145)
--- NOTE | 2018-07-04 07:21 | NUR ---
HAND-OFF: Report given to Med JI.
[2018-07-04 08:00] VITALS: BP 144/70
--- NOTE | 2018-07-04 08:00 | NUR ---
NURSE NOTES: received pt in the bed, awake, vent dependent, vital signs stable, no SOB, no co pain, skin warm and dry to touch, tolerate GT feeding well, yellow clear urine, rectal tube, bed in low position, HOB elevated.
--- NOTE | 2018-07-04 08:44 | NUR ---
RADIOLOGY DEPT CHEST X-RAY DONE.-P.DYE
[2018-07-04] MEDS: Vancomycin oral 125mg/2.5ml ORAL SCH ×4 (09:02→21:47)
--- NOTE | 2018-07-04 11:02 | Diagnostic Imaging Report ---
Indication: Dyspnea Technique: One view of the chest Comparison: none Findings: Patient is rotated to the right. Bibasilar hazy opacities are noted. This almost certainly represents pleural fluid on the left, new since prior study, could indicate pleural fluid versus overlying soft tissue attenuation on the right. Tracheostomy remains. Previously demonstrated right arm PICC is no longer visualized Impression: New finding of bilateral basilar hazy opacities, almost certainly representing pleural fluid on the left. Could represent pleural fluid, parenchymal infiltrate, or overlying soft tissue artifact on the right
[2018-07-04 12:00] VITALS: BP 143/69
--- NOTE | 2018-07-04 14:00 | NUR ---
NURSE NOTES: PT RESTING, NO CO PAIN, VITAL SIGNS STABLE, CONTINUE MONITORING.
--- NOTE | 2018-07-04 14:42 | Infectious Diseases Prog Note ---
Assessment/Plan Assessment/Plan 87 yo feamle with PMHx of COPD, HTN, and A.fib sent to the ED from her intermediate for SOB. Sepsis;improving - Likely PNA 06/21 CXR: Slightly increased right lung opacity, suspect increasing pleural fluid.Increased retrocardiac consolidation 06/17 CXR: Increasing right lung opacity, likely representing decreasing pleural fluid but may also represent increasing parenchymal consolidation 06/15 CXR: Increasing opacification right hemithorax, likely reflecting increasing pleural fluid but may also reflect increasing pulmonary parenchymal consolidation 06/14 CXR: Diffuse right lung hazy opacity appears similar to the prior exam. 06/12 CXR: : Hazy opacification of the right hemithorax, likely reflecting pleural fluid, is unchanged. 05/28/18 CXR with atalectasis vs consolidation in the right side. 06/01/18 CXR - Extensive right hemithorax opacification UA (-) sputum cx 06/15: MRSA (likely a colonizer at this point), ESBL E.coli Sputum Cx 05/28/18 - MRSA (Inf Neg) Urine legionella (-) Acute respiratory failure s/p intubation 06/16 -s/p trach 06/23 R>L pleural effusion; exudate -FLuid pH 8, protein 3.5 (serum 6.5), LDH 111 (serum 203: cx NTD -06/28 SP Successful ultrasound-guided R thoracentesis, yielding 600 milliliters of fluid Cdiff colitis Diarrhea persists -06/19 Cdif toxin a/b + R lung collapse: -06/16 CXR: Complete opacification of the right hemithorax. Probably due to complete atelectasis of the right lung, with evidence of abrupt occlusion of the right mainstem bronchus. Given findings on prior chest radiographs, there is probably significant component of pleural effusion as well. Positive blood Cx - Likely contaminant BCx 05/28/18 - CoNS BCX 05/30/18 - NGTD Leukocytosis , recurrent mild- SP Fever, SP COPD CAD A. fib s/p PEG 06/24 PLAN -Continue PO Vancomycin #/ for Cdiff , may consider Dificid if Diarrhea does not improve -06/26 SP Ertapenem #6 -06/20 SP Meropenem #5 -06/17 SP IV Vancomycin #21 -06/16 SP Cefepime #20 - Monitor CBC and Temps -f/u cx (Pleural) Subjective Allergies: Coded Allergies: Mushroom (Verified Allergy, Severe, 05/28/18) MORPHINE (Unverified Allergy, Intermediate, Itching, 01/04/15) PENICILLINS (Unverified Allergy, Intermediate, Hives, 06/25/18) Tolerates cephalosporins and carbapenems CELECOXIB (Verified Allergy, Mild, 01/15/09) Subjective afebrile no leukocytosis Objective Vital Signs Last 24 Hour Vital Signs Date Time Temp Pulse Resp B/P (MAP) Pulse Ox O2 Delivery O2 Flow Rate FiO2 07/04/18 13:15 79 23 35 07/04/18 12:00 Mechanical Ventilator 07/04/18 12:00 35 07/04/18 11:15 72 16 100 Mechanical Ventilator 35 07/04/18 11:00 69 16 100 Mechanical Ventilator 35 07/04/18 11:00 69 16 35 07/04/18 09:02 74 144/70 07/04/18 09:00 74 17 35 07/04/18 08:00 Mechanical Ventilator 07/04/18 08:00 35 07/04/18 08:00 97.7 74 16 144/70 (94) 100 07/04/18 08:00 65 07/04/18 06:53 70 16 100 Mechanical Ventilator 35 07/04/18 06:47 69 16 35 07/04/18 06:45 69 16 96 Mechanical Ventilator 35 07/04/18 04:46 67 17 35 07/04/18 04:00 Mechanical Ventilator 07/04/18 04:00 98.1 65 16 138/68 (91) 100 07/04/18 04:00 68 07/04/18 04:00 35 07/04/18 02:59 67 16 100 Mechanical Ventilator 35 07/04/18 02:41 65 16 99 Mechanical Ventilator 35 07/04/18 02:40 65 16 35 07/04/18 01:04 62 16 35 07/04/18 00:03 74 18 99 Mechanical Ventilator 35 07/04/18 00:00 Mechanical Ventilator 07/04/18 00:00 35 07/04/18 00:00 97.9 81 16 137/55 (82) 100 07/03/18 23:52 71 20 35 07/03/18 23:52 77 19 99 Mechanical Ventilator 35 07/03/18 20:46 77 18 35 07/03/18 20:05 71 19 100 Mechanical Ventilator 35 07/03/18 20:00 Mechanical Ventilator 07/03/18 20:00 81 07/03/18 20:00 99.4 81 18 155/71 (99) 100 07/03/18 20:00 35 07/03/18 19:48 80 20 99 Mechanical Ventilator 35 07/03/18 19:47 80 16 35 07/03/18 16:31 85 16 35 07/03/18 16:00 Mechanical Ventilator 07/03/18 16:00 97.7 89 17 142/69 (93) 94 07/03/18 16:00 99 07/03/18 15:32 102 24 100 Mechanical Ventilator 35 07/03/18 15:29 88 24 95 Mechanical Ventilator 35 07/03/18 15:00 90 24 35 Height (Feet): 5 Height (Inches): 4.00 Weight (Pounds): 115 Objective General Appearance: no apparent distress, Neck: supple, trach in place Cardiovascular: normal rate Respiratory/Chest: decreased BS at bases Abdomen: normal bowel sounds, non tender, soft; Peg in place rectal tube in place Extremities: trace edema Laboratory Tests Test 07/04/18 04:00 White Blood Count 6.8 K/UL (4.8-10.8) Red Blood Count 3.56 M/UL (4.20-5.40) L Hemoglobin 8.1 G/DL (12.0-16.0) L Hematocrit 26.4 % (37.0-47.0) L Mean Corpuscular Volume 74 FL (80-99) L Mean Corpuscular Hemoglobin 22.9 PG (27.0-31.0) L Mean Corpuscular Hemoglobin Concent 30.9 G/DL (32.0-36.0) L Red Cell Distribution Width 17.8 % (11.6-14.8) H Platelet Count 225 K/UL (150-450) Mean Platelet Volume 7.8 FL (6.5-10.1) Neutrophils (%) (Auto) 51.4 % (45.0-75.0) Lymphocytes (%) (Auto) 25.9 % (20.0-45.0) Monocytes (%) (Auto) 9.9 % (1.0-10.0) Eosinophils (%) (Auto) 11.8 % (0.0-3.0) H Basophils (%) (Auto) 1.1 % (0.0-2.0) Sodium Level 145 MMOL/L (136-145) Potassium Level 3.2 MMOL/L (3.5-5.1) L Chloride Level 104 MMOL/L (98-107) Carbon Dioxide Level 35 MMOL/L (21-32) H Anion Gap 6 mmol/L (5-15) Blood Urea Nitrogen 45 mg/dL (7-18) H Creatinine 1.6 MG/DL (0.55-1.30) H Estimat Glomerular Filtration Rate mL/min (>60) Glucose Level 93 MG/DL (74-106) Calcium Level 8.9 MG/DL (8.5-10.1) Magnesium Level 3.0 MG/DL (1.8-2.4) H Current Medications Medications (Trade) Dose Ordered Sig/Ann Route PRN Reason Start Time Stop Time Status Last Admin Dose Admin Acetaminophen (Tylenol) 650 mg Q4H PRN ORAL Mild Pain/Temp > 100.5 06/26/18 15:30 07/16/18 19:18 06/27/18 17:06 Acetylcysteine (Mucomyst) 100 mg Q4HRT HHN 06/26/18 15:00 07/09/18 10:59 07/04/18 11:21 Albuterol/ Ipratropium (Albuterol/ Ipratropium) 3 ml Q4H PRN HHN Shortness of Breath 07/02/18 19:15 07/07/18 19:14 07/04/18 11:21 Amiodarone HCl (Cordarone) 200 mg DAILY@1800 GT 06/26/18 18:00 07/24/18 17:59 07/03/18 17:27 Amlodipine Besylate (Norvasc) 2.5 mg DAILY ORAL 06/27/18 09:00 07/25/18 08:59 07/04/18 09:02 Dextrose/Sodium Chloride 1,000 ml @ 50 mls/hr Q20H IV 07/01/18 08:00 07/31/18 07:59 07/03/18 20:01 Metoprolol Tartrate (Lopressor) 5 mg Q6H PRN IVP HR > 125 06/26/18 18:00 07/16/18 17:59 Ondansetron HCl (Zofran) 4 mg Q6H PRN IVP Nausea & Vomiting 06/26/18 14:00 07/16/18 13:59 Quetiapine Fumarate (SEROquel) 12.5 mg QHS ORAL 06/29/18 21:00 07/29/18 20:59 07/03/18 20:17 Vancomycin HCl (Firvanq) 125 mg FOUR TIMES A DAY ORAL 07/03/18 13:00 07/07/18 09:01 07/04/18 12:38 Natty Hernandes M.D. Jul 04, 2018 14:42
--- NOTE | 2018-07-04 14:52 | NUR ---
RD ASSESSMENT & RECOMMENDATIONS SEE CARE ACTIVITY FOR COMPLETE ASSESSMENT DAILY ESTIMATED NEEDS: Needs based on ARF, Critical care/ 54kg 22-28 kcals/kg 4658-3064 total kcals 1.2-1.5 g protein/kg 65-81 g total protein 25-30 mL/kg 9435-4463 total fluid mLs NUTRITION DIAGNOSIS: * Swallowing difficulty R/T dysphagia, respiratory status as evidenced by s/p trach and PEG placement, on GT feeding. * Altered nutrition related lab values R/T clinical condition, prediabetes, ARF, volume deficit? as evidenced by elev Na (150 trend up, elev BUN (85 trend down), elev creat (0.9->5.0-> 1.6 trend back down), A1C=5.9, elev BG of 201 upon adm -> 117 108, elev K (6.0*-> now 3.2), elev phos (5.9-> now wnl). CURRENT TF: Now VITAL 1.2 @55 ENTERAL NUTRITION RECOMMENDATIONS: Nepro @ 35ml/hr x 24 hrs to provide 840ml, 1512kcal, 68g prot, 610ml free water * Resume TF as medically appropriate * Cont to rec Nepro at this time- most updated phos elev @ 5.0 * HOB over 30 degrees/ water flush per MD W/ continued improving renal fxn and when lytes normalize, Rec TF change to-->> Glucerna 1.2 @ 50ml/hr x 24 hrs to provide 1200ml, 1440kcal, 72g prot, 966ml free water ADDITIONAL RECOMMENDATIONS: * CALIBRATED bedscale wt for accurate CBW- w/ added SPR mattress+ pump * Monitor renal fxn, need to continue renal TF formula - renal fxn improving at this time * Monitor lytes closely * Monitor BGs, need for SSI/hypoglycemic agents . .
--- NOTE | 2018-07-04 15:24 | Nephrology Progress Note ---
Assessment/Plan Problem List: (1) Acute renal failure Assessment: Cr lowering (2) Anuria (3) Acute respiratory failure Assessment: on vent (4) Dementia (5) Afib Assessment Cr lowering Urine out put rising Cr lowering other conditions: (1) Acute respiratory failure (2) Aspiration pneumonia (3) Acute encephalopathy (4) Pleural effusion (5) COPD (chronic obstructive pulmonary disease) (6) CAD (coronary artery disease) (7) Dementia Plan Now trached and Pegged Cr lowering- Urine out put higher monitor vanco level K and Phos and Mag as needed Anemia porter Adjust BP meds fu Lytes Gastric support per orders Subjective ROS Limited/Unobtainable: Yes Objective Objective Last 24 Hour Vital Signs Date Time Temp Pulse Resp B/P (MAP) Pulse Ox O2 Delivery O2 Flow Rate FiO2 07/04/18 13:15 79 23 35 07/04/18 12:00 Mechanical Ventilator 07/04/18 12:00 83 07/04/18 12:00 97.2 82 26 143/69 (93) 96 07/04/18 12:00 35 07/04/18 11:15 72 16 100 Mechanical Ventilator 35 07/04/18 11:00 69 16 100 Mechanical Ventilator 35 07/04/18 11:00 69 16 35 07/04/18 09:02 74 144/70 07/04/18 09:00 74 17 35 07/04/18 08:00 Mechanical Ventilator 07/04/18 08:00 35 07/04/18 08:00 97.7 74 16 144/70 (94) 100 07/04/18 08:00 65 07/04/18 06:53 70 16 100 Mechanical Ventilator 35 07/04/18 06:47 69 16 35 07/04/18 06:45 69 16 96 Mechanical Ventilator 35 07/04/18 04:46 67 17 35 07/04/18 04:00 Mechanical Ventilator 07/04/18 04:00 98.1 65 16 138/68 (91) 100 07/04/18 04:00 68 07/04/18 04:00 35 07/04/18 02:59 67 16 100 Mechanical Ventilator 35 07/04/18 02:41 65 16 99 Mechanical Ventilator 35 07/04/18 02:40 65 16 35 07/04/18 01:04 62 16 35 07/04/18 00:03 74 18 99 Mechanical Ventilator 35 07/04/18 00:00 Mechanical Ventilator 07/04/18 00:00 35 07/04/18 00:00 97.9 81 16 137/55 (82) 100 07/03/18 23:52 71 20 35 07/03/18 23:52 77 19 99 Mechanical Ventilator 35 07/03/18 20:46 77 18 35 07/03/18 20:05 71 19 100 Mechanical Ventilator 35 07/03/18 20:00 Mechanical Ventilator 07/03/18 20:00 81 07/03/18 20:00 99.4 81 18 155/71 (99) 100 07/03/18 20:00 35 07/03/18 19:48 80 20 99 Mechanical Ventilator 35 07/03/18 19:47 80 16 35 07/03/18 16:31 85 16 35 07/03/18 16:00 Mechanical Ventilator 07/03/18 16:00 97.7 89 17 142/69 (93) 94 07/03/18 16:00 99 07/03/18 15:32 102 24 100 Mechanical Ventilator 35 07/03/18 15:29 88 24 95 Mechanical Ventilator 35 Intake and Output 07/03/18 07/04/18 19:00 07:00 Intake Total 1020 ml 1400 ml Output Total 600 ml 500 ml Balance 420 ml 900 ml Free Water 150 ml IV Total 450 ml 600 ml Tube Feeding 270 ml 590 ml Other 300 ml 60 ml Output Urine Total 550 ml 500 ml Stool Total 50 ml # Bowel Movements 50 Laboratory Tests 07/04/18 04:00: White Blood Count 6.8, Red Blood Count 3.56L, Hemoglobin 8.1L, Hematocrit 26.4L , Mean Corpuscular Volume 74L, Mean Corpuscular Hemoglobin 22.9L, Mean Corpuscular Hemoglobin Concent 30.9L, Red Cell Distribution Width 17.8H, Platelet Count 225, Mean Platelet Volume 7.8, Neutrophils (%) (Auto) 51.4, Lymphocytes (%) (Auto) 25.9, Monocytes (%) (Auto) 9.9, Eosinophils (%) (Auto) 11.8H, Basophils (%) (Auto) 1.1, Sodium Level 145, Potassium Level 3.2L, Chloride Level 104, Carbon Dioxide Level 35H, Anion Gap 6, Blood Urea Nitrogen 45H, Creatinine 1.6H, Estimat Glomerular Filtration Rate , Glucose Level 93, Calcium Level 8.9, Magnesium Level 3.0H Height (Feet): 5 Height (Inches): 4.00 Weight (Pounds): 115 EENT: other - trach Cardiovascular: normal rate Respiratory/Chest: decreased breath sounds Abdomen: distended Objective no change Kendrick Jimenez MD Jul 04, 2018 15:24
[2018-07-04 16:00] VITALS: BP 150/42
[2018-07-04] MEDS: D5 1/2NS 1,000 ML IV SCH (16:41)
[2018-07-04] MEDS: Amiodarone 200mg tab GT SCH (18:17)
--- NOTE | 2018-07-04 19:11 | NUR ---
HAND-OFF: Report given to GURMEET JI.
--- NOTE | 2018-07-04 19:15 | NUR ---
HAND-OFF: Report given to GURMEET JI.
--- NOTE | 2018-07-04 19:20 | NUR ---
NURSE NOTES: Received patient from MARC SPEAR RN. Patient is resting in bed and watching TV comfortably. Trach to vent dependent with Shiley 8, Mode on AC 16 TV 350 FIO2 35% PEEP 5 and sating 97-100%. SR on monitor. vs stable. afebrile.ongoing GTF of Vital AF 1.2 at 55cc/hr with no residual. HOB elevated. Purewick in place with yellow urine.IV to MILY G 22 intact with running D51/2NS at 50cc/hr. Denies any pain at this time. skin clean and dry. call light in reach.contact isolation maintained . bed in locked and alarm on.will resume plan of care.
--- NOTE | 2018-07-04 19:49 | General Progress Note ---
Assessment/Plan Assessment/Plan Assessment - Resp failure - s/p PEG - C DIff diarrhea - COPD - CHF - PNA - Anemia Recommendations - watch for recurrence / worsening of diarrhea - Vent care - Elevated HOB - Monitor residuals - Pulmonary toilet - wean down acid suppression Subjective Allergies: Coded Allergies: Mushroom (Verified Allergy, Severe, 05/28/18) MORPHINE (Unverified Allergy, Intermediate, Itching, 01/04/15) PENICILLINS (Unverified Allergy, Intermediate, Hives, 06/25/18) Tolerates cephalosporins and carbapenems CELECOXIB (Verified Allergy, Mild, 01/15/09) Subjective Seen in [facility] tolerating TF minimal BM noted Objective Last 24 Hour Vital Signs Date Time Temp Pulse Resp B/P (MAP) Pulse Ox O2 Delivery O2 Flow Rate FiO2 07/04/18 19:22 81 20 99 Mechanical Ventilator 35 07/04/18 19:07 89 20 97 Mechanical Ventilator 35 07/04/18 19:07 89 20 35 07/04/18 17:12 84 20 35 07/04/18 16:00 35 07/04/18 16:00 Mechanical Ventilator 07/04/18 16:00 82 07/04/18 16:00 98.2 78 20 150/42 (78) 97 07/04/18 15:42 92 19 100 Mechanical Ventilator 35 07/04/18 15:32 85 19 35 07/04/18 15:32 78 19 100 Mechanical Ventilator 35 07/04/18 13:15 79 23 35 07/04/18 12:00 Mechanical Ventilator 07/04/18 12:00 83 07/04/18 12:00 97.2 82 26 143/69 (93) 96 07/04/18 12:00 35 07/04/18 11:15 72 16 100 Mechanical Ventilator 35 07/04/18 11:00 69 16 100 Mechanical Ventilator 35 07/04/18 11:00 69 16 35 07/04/18 09:02 74 144/70 07/04/18 09:00 74 17 35 07/04/18 08:00 Mechanical Ventilator 07/04/18 08:00 35 07/04/18 08:00 97.7 74 16 144/70 (94) 100 07/04/18 08:00 65 07/04/18 06:53 70 16 100 Mechanical Ventilator 35 07/04/18 06:47 69 16 35 07/04/18 06:45 69 16 96 Mechanical Ventilator 35 07/04/18 04:46 67 17 35 07/04/18 04:00 Mechanical Ventilator 07/04/18 04:00 98.1 65 16 138/68 (91) 100 07/04/18 04:00 68 07/04/18 04:00 35 07/04/18 02:59 67 16 100 Mechanical Ventilator 35 07/04/18 02:41 65 16 99 Mechanical Ventilator 35 07/04/18 02:40 65 16 35 07/04/18 01:04 62 16 35 07/04/18 00:03 74 18 99 Mechanical Ventilator 35 07/04/18 00:00 Mechanical Ventilator 07/04/18 00:00 35 07/04/18 00:00 97.9 81 16 137/55 (82) 100 07/03/18 23:52 71 20 35 07/03/18 23:52 77 19 99 Mechanical Ventilator 35 07/03/18 20:46 77 18 35 07/03/18 20:05 71 19 100 Mechanical Ventilator 35 07/03/18 20:00 Mechanical Ventilator 07/03/18 20:00 81 07/03/18 20:00 99.4 81 18 155/71 (99) 100 07/03/18 20:00 35 07/03/18 19:48 80 20 99 Mechanical Ventilator 35 Intake and Output 07/03/18 07/04/18 19:00 07:00 Intake Total 1020 ml 1400 ml Output Total 600 ml 500 ml Balance 420 ml 900 ml Free Water 150 ml IV Total 450 ml 600 ml Tube Feeding 270 ml 590 ml Other 300 ml 60 ml Output Urine Total 550 ml 500 ml Stool Total 50 ml # Bowel Movements 50 Laboratory Tests 07/04/18 04:00: White Blood Count 6.8, Red Blood Count 3.56L, Hemoglobin 8.1L, Hematocrit 26.4L , Mean Corpuscular Volume 74L, Mean Corpuscular Hemoglobin 22.9L, Mean Corpuscular Hemoglobin Concent 30.9L, Red Cell Distribution Width 17.8H, Platelet Count 225, Mean Platelet Volume 7.8, Neutrophils (%) (Auto) 51.4, Lymphocytes (%) (Auto) 25.9, Monocytes (%) (Auto) 9.9, Eosinophils (%) (Auto) 11.8H, Basophils (%) (Auto) 1.1, Sodium Level 145, Potassium Level 3.2L, Chloride Level 104, Carbon Dioxide Level 35H, Anion Gap 6, Blood Urea Nitrogen 45H, Creatinine 1.6H, Estimat Glomerular Filtration Rate , Glucose Level 93, Calcium Level 8.9, Magnesium Level 3.0H Height (Feet): 5 Height (Inches): 4.00 Weight (Pounds): 115 Objective Elderly WW NCAT, (+) NGT, (+)ETT Supple CTA RRR Soft, NT, ND No edema restrained Panchito Rahman MD Jul 04, 2018 19:49
[2018-07-04 20:00] VITALS: BP 149/72
--- NOTE | 2018-07-04 20:57 | General Progress Note ---
Assessment/Plan Status: progressing Assessment/Plan This is an 87-year-old female admitted with chronic obstructive pulmonary disease exacerbation, right lower lobe infiltrate/pneumonia with altered mental status and acute kidney injury. The patient will be admitted to [facility] with the following medical problems. 1. Chronic obstructive pulmonary disease exacerbation and pneumonia. The patient has been seen by Pulmonary. Infectious Disease has been consulted, pancultured. IV antibiotics per ID. Continue with BiPAP and suction p.r.n. Transition to Venturi-mask when stable. 2. Acute kidney injury. We will monitor I's and O's, gentle intravenous fluids. Repeat a BMP in a.m. Consider Nephrology consult. 3. History of chronic atrial fibrillation. Continue with amiodarone. The patient is in sinus rhythm at this time. 4. History of hypertension. Continue with amlodipine and hold for systolic blood pressure less than 110. 5. Altered mental status, most likely from above conditions. We will keep n.p.o. except for medications and start IV fluids. 6. DVT prophylaxis with heparin subcutaneous and SCDs. 7. The patient is Full Code per policy. We will discuss with the family. 8. hypokalmia 9. Anemia 10. CHf acute on chronic 11. leucocytosis 12. ARF? ATN 13. C dif positive 14. hyperkalemia 15. pleural effusion 16. S/p Tracheostomy 06/22/18 17, hypernatremia Plan: - continue respiratory support - aggressive pulmonary suction - HD on hold as patient putting out better urine and createnine is improving - antibiotics per ID - on oral vanco for one more day - am labs - weaning off vent per pulmonary - Gi prophylaxis with protonix iv 40 mg daily - s/p Kayexalate - norvasc added for better BP cotrol - s/p PEG discussed with nurse Contact isolation for C dif now in [facility] - transfuse one unit of PRBC on 06-28-18 - Cpap trial - am labs - continue 21 day course of oral Vanco for C. D will dc to subacute or LTAC based on bed avialability Subjective Date patient seen: Jul 04, 2018 ROS Limited/Unobtainable: Yes Allergies: Coded Allergies: Mushroom (Verified Allergy, Severe, 05/28/18) MORPHINE (Unverified Allergy, Intermediate, Itching, 01/04/15) PENICILLINS (Unverified Allergy, Intermediate, Hives, 06/25/18) Tolerates cephalosporins and carbapenems CELECOXIB (Verified Allergy, Mild, 01/15/09) Subjective patient is now reintubated, in renal failure, HD on hold as making better urine , C dif positive on ngt vanco, s/p tracheostomy. s/p PEG, moved to [facility] on , on Cpap trila, s/p thoracentesis yesterday and transfusion, more alert today per nurse, still with diarrhea Vanco oral ordered by gi Objective Last 24 Hour Vital Signs Date Time Temp Pulse Resp B/P (MAP) Pulse Ox O2 Delivery O2 Flow Rate FiO2 07/04/18 20:00 99.0 86 21 149/72 (97) 100 07/04/18 20:00 Mechanical Ventilator 07/04/18 20:00 35 07/04/18 19:22 81 20 99 Mechanical Ventilator 35 07/04/18 19:07 89 20 97 Mechanical Ventilator 35 07/04/18 19:07 89 20 35 07/04/18 17:12 84 20 35 07/04/18 16:00 35 07/04/18 16:00 Mechanical Ventilator 07/04/18 16:00 82 07/04/18 16:00 98.2 78 20 150/42 (78) 97 07/04/18 15:42 92 19 100 Mechanical Ventilator 35 07/04/18 15:32 85 19 35 07/04/18 15:32 78 19 100 Mechanical Ventilator 35 07/04/18 13:15 79 23 35 07/04/18 12:00 Mechanical Ventilator 07/04/18 12:00 83 07/04/18 12:00 97.2 82 26 143/69 (93) 96 07/04/18 12:00 35 07/04/18 11:15 72 16 100 Mechanical Ventilator 35 07/04/18 11:00 69 16 100 Mechanical Ventilator 35 07/04/18 11:00 69 16 35 07/04/18 09:02 74 144/70 07/04/18 09:00 74 17 35 07/04/18 08:00 Mechanical Ventilator 07/04/18 08:00 35 07/04/18 08:00 97.7 74 16 144/70 (94) 100 07/04/18 08:00 65 07/04/18 06:53 70 16 100 Mechanical Ventilator 35 07/04/18 06:47 69 16 35 07/04/18 06:45 69 16 96 Mechanical Ventilator 35 07/04/18 04:46 67 17 35 07/04/18 04:00 Mechanical Ventilator 07/04/18 04:00 98.1 65 16 138/68 (91) 100 07/04/18 04:00 68 07/04/18 04:00 35 07/04/18 02:59 67 16 100 Mechanical Ventilator 35 07/04/18 02:41 65 16 99 Mechanical Ventilator 35 07/04/18 02:40 65 16 35 07/04/18 01:04 62 16 35 07/04/18 00:03 74 18 99 Mechanical Ventilator 35 07/04/18 00:00 Mechanical Ventilator 07/04/18 00:00 35 07/04/18 00:00 97.9 81 16 137/55 (82) 100 07/03/18 23:52 71 20 35 07/03/18 23:52 77 19 99 Mechanical Ventilator 35 Intake and Output 07/03/18 07/04/18 19:00 07:00 Intake Total 1020 ml 1400 ml Output Total 600 ml 500 ml Balance 420 ml 900 ml Free Water 150 ml IV Total 450 ml 600 ml Tube Feeding 270 ml 590 ml Other 300 ml 60 ml Output Urine Total 550 ml 500 ml Stool Total 50 ml # Bowel Movements 50 Laboratory Tests 07/04/18 04:00: White Blood Count 6.8, Red Blood Count 3.56L, Hemoglobin 8.1L, Hematocrit 26.4L , Mean Corpuscular Volume 74L, Mean Corpuscular Hemoglobin 22.9L, Mean Corpuscular Hemoglobin Concent 30.9L, Red Cell Distribution Width 17.8H, Platelet Count 225, Mean Platelet Volume 7.8, Neutrophils (%) (Auto) 51.4, Lymphocytes (%) (Auto) 25.9, Monocytes (%) (Auto) 9.9, Eosinophils (%) (Auto) 11.8H, Basophils (%) (Auto) 1.1, Sodium Level 145, Potassium Level 3.2L, Chloride Level 104, Carbon Dioxide Level 35H, Anion Gap 6, Blood Urea Nitrogen 45H, Creatinine 1.6H, Estimat Glomerular Filtration Rate , Glucose Level 93, Calcium Level 8.9, Magnesium Level 3.0H Height (Feet): 5 Height (Inches): 4.00 Weight (Pounds): 115 EENT: PERRL/EOMI, pharynx normal Neck: non-tender, supple Respiratory/Chest: decreased breath sounds Abdomen: non tender, soft, no mass Extremities: non-tender, normal inspection, no calf tenderness Edema: no edema noted Arm (L), no edema noted Arm (R), no edema noted Leg (L), no edema noted Leg (R), no edema noted Pedal (L), no edema noted Pedal (R), no edema noted Generalized Neurologic: alert, oriented x 3 Skin: warm/dry Lymphatic: normal anterior cervical (L), normal anterior cervical (R), normal posterior cervical (L), normal posterior cervical (R), normal submandibular (L) , normal submandibular (R), normal supraclavicular (L), normal supraclavicular ( R), normal axillary (L), normal axillary (R), normal inguinal (L), normal inguinal (R), normal other Cruz Valderrama MD Jul 04, 2018 20:57
[2018-07-05] VITALS: BP 150/68
--- NOTE | 2018-07-05 02:00 | NUR ---
NURSE NOTES: Patient asleep in bed with no acute distress. Tolerating well GTF with no residual. SR on monitor. vs stable. afebrile. no sign of pain. Turned and repositioned.Performed sponge bath. kept clean and dry. keep patient comfortable.
[2018-07-05] MEDS: Albuterol/Ipratropium 3ml neb HHN PRN ×6 (03:20→23:05)
[2018-07-05 04:00] VITALS: BP 125/71
[2018-07-05] MEDS: D5 1/2NS 1,000 ML IV SCH (06:12)
--- NOTE | 2018-07-05 07:36 | NUR ---
HAND-OFF: Report given to MARC SPEAR RN using SBAR.patient remains stable in conditions.
[2018-07-05 08:00] VITALS: BP 129/66
--- NOTE | 2018-07-05 08:00 | NUR ---
NURSE NOTES: received pt in the bed, awake, vent dependent, vital signs stable, no co pain, no SOB, skin warm and dry to touch, dressing dry and intact on sacral area, tolerate GT feeding well, void with yellow urine, rectal tube, bed in low position, HOB elevated.
[2018-07-05] MEDS: Vancomycin oral 125mg/2.5ml ORAL SCH ×2 (08:32→12:49)
--- NOTE | 2018-07-05 10:00 | NUR ---
Social Service Note Updated clinical information faxed to Karen at [facility] [phone] (p).
--- NOTE | 2018-07-05 10:11 | Pulmonology Progress Note ---
Assessment/Plan Assessment/Plan Problem List: 1. Acute on chronic hypercapnic respiratory failure -intubated 06/02; extubated 06/10 -reintubated 06/17 -trach 06/23 shiley 8 2. R lung collapse, mucous plugging - resolved 3. Pulmonary edema 4. chronic obstructive asthma 5. Pneumonia 6. Hx afib 7. MRSA pna, recurrent fever and increased leukocytosis 8. ESBL E.coli pna 9. C.diff colitis 10. Pleural effusions -06/28 R thoracentesis; 600 cc Plan: -cont mechanical ventilatory support -SIMV trials for weaning with PS 12 -consider downsizing trach to 6 -aggressive pulmonary hygiene with duonebs/mucomyst/suctioning q4 -monitor volumes, has effusions and edema, will discuss lasix with Dr. Jimenez -repeat CXR prn -monitor renal function, improved -abx per ID -PEG done -seroquel 12.5 mg qhs d/c planning LTACH vs subacute Case d/w Dr. Valderrama Subjective ROS Limited/Unobtainable: Yes Interval Events: SIMV trials with PS 8 tolerating 2 hours. Minimal secretions Allergies: Coded Allergies: Mushroom (Verified Allergy, Severe, 05/28/18) MORPHINE (Unverified Allergy, Intermediate, Itching, 01/04/15) PENICILLINS (Unverified Allergy, Intermediate, Hives, 06/25/18) Tolerates cephalosporins and carbapenems CELECOXIB (Verified Allergy, Mild, 01/15/09) Objective Last 24 Hour Vital Signs Date Time Temp Pulse Resp B/P (MAP) Pulse Ox O2 Delivery O2 Flow Rate FiO2 07/05/18 08:40 100 22 35 07/05/18 08:33 77 129/66 07/05/18 08:00 98.1 77 16 129/66 (87) 100 07/05/18 08:00 Mechanical Ventilator 07/05/18 08:00 35 07/05/18 07:29 100 28 96 Mechanical Ventilator 35 07/05/18 07:28 100 18 35 07/05/18 07:15 100 28 96 Mechanical Ventilator 35 07/05/18 04:56 102 18 35 07/05/18 04:00 99.3 82 18 125/71 (89) 98 07/05/18 04:00 Mechanical Ventilator 07/05/18 04:00 35 07/05/18 04:00 98 07/05/18 03:30 87 18 99 Mechanical Ventilator 35 07/05/18 03:21 102 18 35 07/05/18 03:20 104 18 97 Mechanical Ventilator 35 07/05/18 01:20 82 17 35 07/05/18 00:00 80 07/05/18 00:00 Mechanical Ventilator 07/05/18 00:00 99.1 84 20 150/68 (95) 97 07/05/18 00:00 35 07/04/18 23:09 84 19 99 Mechanical Ventilator 35 07/04/18 22:58 84 16 35 07/04/18 22:58 85 17 98 Mechanical Ventilator 35 07/04/18 21:07 91 25 35 07/04/18 20:00 88 07/04/18 20:00 99.0 86 21 149/72 (97) 100 07/04/18 20:00 Mechanical Ventilator 07/04/18 20:00 35 07/04/18 19:22 81 20 99 Mechanical Ventilator 35 07/04/18 19:07 89 20 97 Mechanical Ventilator 35 07/04/18 19:07 89 20 35 07/04/18 17:12 84 20 35 07/04/18 16:00 35 07/04/18 16:00 Mechanical Ventilator 07/04/18 16:00 82 07/04/18 16:00 98.2 78 20 150/42 (78) 97 07/04/18 15:42 92 19 100 Mechanical Ventilator 35 07/04/18 15:32 85 19 35 07/04/18 15:32 78 19 100 Mechanical Ventilator 35 07/04/18 13:15 79 23 35 07/04/18 12:00 Mechanical Ventilator 07/04/18 12:00 83 07/04/18 12:00 97.2 82 26 143/69 (93) 96 07/04/18 12:00 35 07/04/18 11:15 72 16 100 Mechanical Ventilator 35 07/04/18 11:00 69 16 100 Mechanical Ventilator 35 07/04/18 11:00 69 16 35 Intake and Output 07/04/18 07/05/18 19:00 07:00 Intake Total 1665 ml 1350 ml Output Total 650 ml 800 ml Balance 1015 ml 550 ml Free Water 350 ml 100 ml IV Total 600 ml 590 ml Tube Feeding 715 ml 660 ml Output Urine Total 550 ml 700 ml Stool Total 100 ml 100 ml General Appearance: no acute distress HEENT: mucous membranes moist Respiratory/Chest: other - coarse Cardiovascular: normal rate, regular rhythm Abdomen: soft, non tender Extremities: no edema Current Medications Medications (Trade) Dose Ordered Sig/Ann Route PRN Reason Start Time Stop Time Status Last Admin Dose Admin Acetaminophen (Tylenol) 650 mg Q4H PRN ORAL Mild Pain/Temp > 100.5 06/26/18 15:30 07/16/18 19:18 06/27/18 17:06 Acetylcysteine (Mucomyst) 100 mg Q4HRT HHN 06/26/18 15:00 07/09/18 10:59 07/05/18 07:27 Albuterol/ Ipratropium (Albuterol/ Ipratropium) 3 ml Q4H PRN HHN Shortness of Breath 07/02/18 19:15 07/07/18 19:14 07/05/18 07:28 Amiodarone HCl (Cordarone) 200 mg DAILY@1800 GT 06/26/18 18:00 07/24/18 17:59 07/04/18 18:17 Amlodipine Besylate (Norvasc) 2.5 mg DAILY ORAL 06/27/18 09:00 07/25/18 08:59 07/05/18 08:33 Dextrose/Sodium Chloride 1,000 ml @ 50 mls/hr Q20H IV 07/01/18 08:00 07/31/18 07:59 07/05/18 06:12 Metoprolol Tartrate (Lopressor) 5 mg Q6H PRN IVP HR > 125 06/26/18 18:00 07/16/18 17:59 Ondansetron HCl (Zofran) 4 mg Q6H PRN IVP Nausea & Vomiting 06/26/18 14:00 07/16/18 13:59 Potassium Chloride (K-Dur) 20 meq TWICE A DAY GT 07/05/18 09:00 08/04/18 08:59 07/05/18 08:32 Quetiapine Fumarate (SEROquel) 12.5 mg QHS ORAL 06/29/18 21:00 07/29/18 20:59 07/04/18 21:48 Vancomycin HCl (Firvanq) 125 mg FOUR TIMES A DAY ORAL 07/04/18 18:00 07/09/18 23:59 07/05/18 08:32 Varinder De Souza MD Jul 05, 2018 10:11
--- NOTE | 2018-07-05 11:01 | NUR ---
*-* DISCHARGE PLANING *-* PATIENT HAS BEEN REFERRED TO: [facility] P:[phone] F:[phone]
[2018-07-05 12:00] VITALS: BP 141/69
--- NOTE | 2018-07-05 13:19 | Infectious Diseases Prog Note ---
Assessment/Plan Assessment/Plan 87 yo feamle with PMHx of COPD, HTN, and A.fib sent to the ED from her care home for SOB. Sepsis;improving - Likely PNA 06/21 CXR: Slightly increased right lung opacity, suspect increasing pleural fluid.Increased retrocardiac consolidation 06/17 CXR: Increasing right lung opacity, likely representing decreasing pleural fluid but may also represent increasing parenchymal consolidation 06/15 CXR: Increasing opacification right hemithorax, likely reflecting increasing pleural fluid but may also reflect increasing pulmonary parenchymal consolidation 06/14 CXR: Diffuse right lung hazy opacity appears similar to the prior exam. 06/12 CXR: : Hazy opacification of the right hemithorax, likely reflecting pleural fluid, is unchanged. 05/28/18 CXR with atalectasis vs consolidation in the right side. 06/01/18 CXR - Extensive right hemithorax opacification UA (-) sputum cx 06/15: MRSA (likely a colonizer at this point), ESBL E.coli Sputum Cx 05/28/18 - MRSA (Inf Neg) Urine legionella (-) Acute respiratory failure s/p intubation 06/16 -s/p trach 06/23 R>L pleural effusion; exudate -FLuid pH 8, protein 3.5 (serum 6.5), LDH 111 (serum 203: cx NTD -06/28 SP Successful ultrasound-guided R thoracentesis, yielding 600 milliliters of fluid Cdiff colitis Diarrhea persists -06/19 Cdif toxin a/b + R lung collapse: -06/16 CXR: Complete opacification of the right hemithorax. Probably due to complete atelectasis of the right lung, with evidence of abrupt occlusion of the right mainstem bronchus. Given findings on prior chest radiographs, there is probably significant component of pleural effusion as well. Positive blood Cx - Likely contaminant BCx 05/28/18 - CoNS BCX 05/30/18 - NGTD Leukocytosis , recurrent mild- SP Fever, SP COPD CAD A. fib s/p PEG 06/24 PLAN -D/c PO Vancomycin #17 and start Fidaxomicin 200mg bid x 10 days -06/26 SP Ertapenem #6 -06/20 SP Meropenem #5 -06/17 SP IV Vancomycin #21 -06/16 SP Cefepime #20 - Monitor CBC and Temps -f/u cx (Pleural) Discussed with RN and pharmacy staff. Subjective Allergies: Coded Allergies: Mushroom (Verified Allergy, Severe, 05/28/18) MORPHINE (Unverified Allergy, Intermediate, Itching, 01/04/15) PENICILLINS (Unverified Allergy, Intermediate, Hives, 06/25/18) Tolerates cephalosporins and carbapenems CELECOXIB (Verified Allergy, Mild, 01/15/09) Subjective afebrile no leukocytosis Objective Vital Signs Last 24 Hour Vital Signs Date Time Temp Pulse Resp B/P (MAP) Pulse Ox O2 Delivery O2 Flow Rate FiO2 07/05/18 13:00 78 15 35 07/05/18 12:00 35 07/05/18 12:00 Mechanical Ventilator 07/05/18 11:33 83 07/05/18 11:18 95 24 97 Mechanical Ventilator 35 07/05/18 11:02 96 33 35 07/05/18 11:02 95 28 96 Mechanical Ventilator 35 07/05/18 10:26 98 07/05/18 08:40 100 22 35 07/05/18 08:33 77 129/66 07/05/18 08:00 98.1 77 16 129/66 (87) 100 07/05/18 08:00 Mechanical Ventilator 07/05/18 08:00 99 07/05/18 08:00 35 07/05/18 07:29 100 28 96 Mechanical Ventilator 35 07/05/18 07:28 100 18 35 07/05/18 07:15 100 28 96 Mechanical Ventilator 35 07/05/18 04:56 102 18 35 07/05/18 04:00 99.3 82 18 125/71 (89) 98 07/05/18 04:00 Mechanical Ventilator 07/05/18 04:00 35 07/05/18 04:00 98 07/05/18 03:30 87 18 99 Mechanical Ventilator 35 07/05/18 03:21 102 18 35 07/05/18 03:20 104 18 97 Mechanical Ventilator 35 07/05/18 01:20 82 17 35 07/05/18 00:00 80 07/05/18 00:00 Mechanical Ventilator 07/05/18 00:00 99.1 84 20 150/68 (95) 97 07/05/18 00:00 35 07/04/18 23:09 84 19 99 Mechanical Ventilator 35 07/04/18 22:58 84 16 35 07/04/18 22:58 85 17 98 Mechanical Ventilator 35 07/04/18 21:07 91 25 35 07/04/18 20:00 88 07/04/18 20:00 99.0 86 21 149/72 (97) 100 07/04/18 20:00 Mechanical Ventilator 07/04/18 20:00 35 07/04/18 19:22 81 20 99 Mechanical Ventilator 35 07/04/18 19:07 89 20 97 Mechanical Ventilator 35 07/04/18 19:07 89 20 35 07/04/18 17:12 84 20 35 07/04/18 16:00 35 07/04/18 16:00 Mechanical Ventilator 07/04/18 16:00 82 07/04/18 16:00 98.2 78 20 150/42 (78) 97 07/04/18 15:42 92 19 100 Mechanical Ventilator 35 07/04/18 15:32 85 19 35 07/04/18 15:32 78 19 100 Mechanical Ventilator 35 07/04/18 13:15 79 23 35 Height (Feet): 5 Height (Inches): 4.00 Weight (Pounds): 128 Objective General Appearance: no apparent distress, Neck: supple, trach in place Cardiovascular: normal rate Respiratory/Chest: decreased BS at bases Abdomen: normal bowel sounds, non tender, soft; Peg in place rectal tube in place Extremities: trace edema Current Medications Medications (Trade) Dose Ordered Sig/Ann Route PRN Reason Start Time Stop Time Status Last Admin Dose Admin Acetaminophen (Tylenol) 650 mg Q4H PRN ORAL Mild Pain/Temp > 100.5 06/26/18 15:30 07/16/18 19:18 06/27/18 17:06 Acetylcysteine (Mucomyst) 100 mg Q4HRT HHN 06/26/18 15:00 07/09/18 10:59 07/05/18 11:01 Albuterol/ Ipratropium (Albuterol/ Ipratropium) 3 ml Q4H PRN HHN Shortness of Breath 07/02/18 19:15 07/07/18 19:14 07/05/18 11:01 Amiodarone HCl (Cordarone) 200 mg DAILY@1800 GT 06/26/18 18:00 07/24/18 17:59 07/04/18 18:17 Amlodipine Besylate (Norvasc) 2.5 mg DAILY ORAL 06/27/18 09:00 07/25/18 08:59 07/05/18 08:33 Dextrose/Sodium Chloride 1,000 ml @ 50 mls/hr Q20H IV 07/01/18 08:00 07/31/18 07:59 07/05/18 06:12 Furosemide (Lasix) 20 mg DAILY ORAL 07/05/18 10:15 08/04/18 10:14 07/05/18 11:07 Metoprolol Tartrate (Lopressor) 5 mg Q6H PRN IVP HR > 125 06/26/18 18:00 07/16/18 17:59 Ondansetron HCl (Zofran) 4 mg Q6H PRN IVP Nausea & Vomiting 06/26/18 14:00 07/16/18 13:59 Potassium Chloride (K-Dur) 20 meq TWICE A DAY GT 07/05/18 09:00 08/04/18 08:59 07/05/18 08:32 Quetiapine Fumarate (SEROquel) 12.5 mg QHS ORAL 06/29/18 21:00 07/29/18 20:59 07/04/18 21:48 Vancomycin HCl (Firvanq) 125 mg FOUR TIMES A DAY ORAL 07/04/18 18:00 07/09/18 23:59 07/05/18 12:49 Natty Hernandes M.D. Jul 05, 2018 13:19
--- NOTE | 2018-07-05 14:47 | Nephrology Progress Note ---
Assessment/Plan Problem List: (1) Acute renal failure Assessment: Cr lowering (2) Anuria (3) Acute respiratory failure Assessment: on vent (4) Dementia (5) Afib Assessment Cr lowering Urine out put rising Cr lowering other conditions: (1) Acute respiratory failure (2) Aspiration pneumonia (3) Acute encephalopathy (4) Pleural effusion (5) COPD (chronic obstructive pulmonary disease) (6) CAD (coronary artery disease) (7) Dementia Plan No labs today Now trached and Pegged Cr lowering- Urine out put higher monitor vanco level K and Phos and Mag as needed Anemia porter Adjust BP meds fu Lytes Gastric support per orders Subjective ROS Limited/Unobtainable: Yes Objective Objective Last 24 Hour Vital Signs Date Time Temp Pulse Resp B/P (MAP) Pulse Ox O2 Delivery O2 Flow Rate FiO2 07/05/18 13:00 78 15 35 07/05/18 12:00 35 07/05/18 12:00 98.6 81 18 141/69 (93) 98 07/05/18 12:00 Mechanical Ventilator 07/05/18 11:33 83 07/05/18 11:18 95 24 97 Mechanical Ventilator 35 07/05/18 11:02 96 33 35 07/05/18 11:02 95 28 96 Mechanical Ventilator 35 07/05/18 10:26 98 07/05/18 08:40 100 22 35 07/05/18 08:33 77 129/66 07/05/18 08:00 98.1 77 16 129/66 (87) 100 07/05/18 08:00 Mechanical Ventilator 07/05/18 08:00 99 07/05/18 08:00 35 07/05/18 07:29 100 28 96 Mechanical Ventilator 35 07/05/18 07:28 100 18 35 07/05/18 07:15 100 28 96 Mechanical Ventilator 35 07/05/18 04:56 102 18 35 07/05/18 04:00 99.3 82 18 125/71 (89) 98 07/05/18 04:00 Mechanical Ventilator 07/05/18 04:00 35 07/05/18 04:00 98 07/05/18 03:30 87 18 99 Mechanical Ventilator 35 07/05/18 03:21 102 18 35 07/05/18 03:20 104 18 97 Mechanical Ventilator 35 07/05/18 01:20 82 17 35 07/05/18 00:00 80 07/05/18 00:00 Mechanical Ventilator 07/05/18 00:00 99.1 84 20 150/68 (95) 97 07/05/18 00:00 35 07/04/18 23:09 84 19 99 Mechanical Ventilator 35 07/04/18 22:58 84 16 35 07/04/18 22:58 85 17 98 Mechanical Ventilator 35 07/04/18 21:07 91 25 35 07/04/18 20:00 88 07/04/18 20:00 99.0 86 21 149/72 (97) 100 07/04/18 20:00 Mechanical Ventilator 07/04/18 20:00 35 07/04/18 19:22 81 20 99 Mechanical Ventilator 35 07/04/18 19:07 89 20 97 Mechanical Ventilator 35 07/04/18 19:07 89 20 35 07/04/18 17:12 84 20 35 07/04/18 16:00 35 07/04/18 16:00 Mechanical Ventilator 07/04/18 16:00 82 07/04/18 16:00 98.2 78 20 150/42 (78) 97 07/04/18 15:42 92 19 100 Mechanical Ventilator 35 07/04/18 15:32 85 19 35 07/04/18 15:32 78 19 100 Mechanical Ventilator 35 Intake and Output 07/04/18 07/05/18 18:59 06:59 Intake Total 1615 ml 1410 ml Output Total 650 ml 800 ml Balance 965 ml 610 ml Free Water 300 ml 150 ml IV Total 600 ml 600 ml Tube Feeding 715 ml 660 ml Output Urine Total 550 ml 700 ml Stool Total 100 ml 100 ml Height (Feet): 5 Height (Inches): 4.00 Weight (Pounds): 128 General Appearance: mild distress EENT: other - trach Cardiovascular: other - variable rates Respiratory/Chest: decreased breath sounds Abdomen: soft, distended, other - PEG Objective no change Kendrick Jimenez MD Jul 05, 2018 14:47
--- NOTE | 2018-07-05 15:26 | NUR ---
NURSE NOTES: pt resting, tolerate feeding well, no co pain, bed bath given, continue monitoring.
[2018-07-05 16:00] VITALS: BP 131/54
--- NOTE | 2018-07-05 16:26 | NUR ---
Social Service Note SUGAR spoke with Karen at [facility] [phone], no bed a [facility] location however beds availability are open at the [place] and [place] locations. SUGAR provided patient's son [facility] [phone] information. Karen available to speak with patient's son. SUGAR provided son Karen's contact information. SUGAR also discussed Sub-acute placement as well.
--- NOTE | 2018-07-05 17:15 | NUR ---
[employer] PROGRAM MANAGER NOTES SPOKE WITH DAVID FROM [facility] UNABLE TO ACCEPT THE PT AT THIS TIME. WILL CONTINUE TO DCP.
--- NOTE | 2018-07-05 17:40 | Cardiology Progress Note ---
Assessment/Plan Assessment/Plan COPD, congestive heart failure, atrial fibrillation sinus tachy agitation right lung collapse? anemia pleural effusion respirator failure tachy acute on chronic renal failure pleural effusion tele sinus vent support abx pulm rxn beta evelyn iv or via ngt prn amiod to 200 qd hemodynamically stable at the moment bp is high cr abn s/p trach and peg s/p thoracentesis duplex neg na better d/w dr vicente to [facility] care facility soon Subjective ROS Limited/Unobtainable: Yes Subjective in sdu on vent in isolation Objective Last 24 Hour Vital Signs Date Time Temp Pulse Resp B/P (MAP) Pulse Ox O2 Delivery O2 Flow Rate FiO2 07/05/18 17:24 80 16 35 07/05/18 16:00 98.8 99 16 131/54 (79) 100 07/05/18 16:00 Mechanical Ventilator 07/05/18 16:00 35 07/05/18 15:48 92 07/05/18 15:15 102 26 96 Mechanical Ventilator 35 07/05/18 15:00 102 27 96 Mechanical Ventilator 35 07/05/18 15:00 97 27 35 07/05/18 13:00 78 15 35 07/05/18 12:00 35 07/05/18 12:00 98.6 81 18 141/69 (93) 98 07/05/18 12:00 Mechanical Ventilator 07/05/18 11:33 83 07/05/18 11:18 95 24 97 Mechanical Ventilator 35 07/05/18 11:02 96 33 35 07/05/18 11:02 95 28 96 Mechanical Ventilator 35 07/05/18 10:26 98 07/05/18 08:40 100 22 35 07/05/18 08:33 77 129/66 07/05/18 08:00 98.1 77 16 129/66 (87) 100 07/05/18 08:00 Mechanical Ventilator 07/05/18 08:00 99 07/05/18 08:00 35 07/05/18 07:29 100 28 96 Mechanical Ventilator 35 07/05/18 07:28 100 18 35 07/05/18 07:15 100 28 96 Mechanical Ventilator 35 07/05/18 04:56 102 18 35 07/05/18 04:00 99.3 82 18 125/71 (89) 98 07/05/18 04:00 Mechanical Ventilator 07/05/18 04:00 35 07/05/18 04:00 98 07/05/18 03:30 87 18 99 Mechanical Ventilator 35 07/05/18 03:21 102 18 35 07/05/18 03:20 104 18 97 Mechanical Ventilator 35 07/05/18 01:20 82 17 35 07/05/18 00:00 80 07/05/18 00:00 Mechanical Ventilator 07/05/18 00:00 99.1 84 20 150/68 (95) 97 07/05/18 00:00 35 07/04/18 23:09 84 19 99 Mechanical Ventilator 35 07/04/18 22:58 84 16 35 07/04/18 22:58 85 17 98 Mechanical Ventilator 35 07/04/18 21:07 91 25 35 07/04/18 20:00 88 07/04/18 20:00 99.0 86 21 149/72 (97) 100 07/04/18 20:00 Mechanical Ventilator 07/04/18 20:00 35 07/04/18 19:22 81 20 99 Mechanical Ventilator 35 07/04/18 19:07 89 20 97 Mechanical Ventilator 35 07/04/18 19:07 89 20 35 General Appearance: no apparent distress Intake and Output 07/04/18 07/05/18 18:59 06:59 Intake Total 1615 ml 1410 ml Output Total 650 ml 800 ml Balance 965 ml 610 ml Free Water 300 ml 150 ml IV Total 600 ml 600 ml Tube Feeding 715 ml 660 ml Output Urine Total 550 ml 700 ml Stool Total 100 ml 100 ml Laboratory Tests Test 07/05/18 16:00 C-Reactive Protein, Quantitative 12.3 mg/dL (0.00-0.90) H Geoffrey Sandhu MD Jul 05, 2018 17:40
[2018-07-05] MEDS: Amiodarone 200mg tab GT SCH (18:00)
--- NOTE | 2018-07-05 19:02 | NUR ---
HAND-OFF: Report given to CECELIA JI.
--- NOTE | 2018-07-05 19:30 | NUR ---
NURSE NOTES: Recvd.on a Vent.Trache.See Settings.Lungs few scatt.Rh.Diminished BS at Bases.Sat.98-100%.Awake able to follows simple command.See Neuro assessment.Gt-Feeding in progress.Iv thera.infusing.Suctioned.Pos. chg.Made comfortable.
[2018-07-05 20:00] VITALS: BP 146/67
--- NOTE | 2018-07-05 20:17 | General Progress Note ---
Assessment/Plan Assessment/Plan Assessment - Resp failure - s/p PEG - C DIff diarrhea - COPD - CHF - PNA - Anemia Recommendations - Vent care - Elevated HOB - Monitor residuals - Pulmonary toilet - wean down acid suppression - Dificid Subjective Allergies: Coded Allergies: Mushroom (Verified Allergy, Severe, 05/28/18) MORPHINE (Unverified Allergy, Intermediate, Itching, 01/04/15) PENICILLINS (Unverified Allergy, Intermediate, Hives, 06/25/18) Tolerates cephalosporins and carbapenems CELECOXIB (Verified Allergy, Mild, 01/15/09) Subjective Seen in [place] tolerating TF minimal BM noted Now on Dificid Objective Last 24 Hour Vital Signs Date Time Temp Pulse Resp B/P (MAP) Pulse Ox O2 Delivery O2 Flow Rate FiO2 07/05/18 19:21 91 22 100 Mechanical Ventilator 35 07/05/18 19:21 91 22 35 07/05/18 17:24 80 16 35 07/05/18 16:00 98.8 99 16 131/54 (79) 100 07/05/18 16:00 Mechanical Ventilator 07/05/18 16:00 35 07/05/18 15:48 92 07/05/18 15:15 102 26 96 Mechanical Ventilator 35 07/05/18 15:00 102 27 96 Mechanical Ventilator 35 07/05/18 15:00 97 27 35 07/05/18 13:00 78 15 35 07/05/18 12:00 35 07/05/18 12:00 98.6 81 18 141/69 (93) 98 07/05/18 12:00 Mechanical Ventilator 07/05/18 11:33 83 07/05/18 11:18 95 24 97 Mechanical Ventilator 35 07/05/18 11:02 96 33 35 07/05/18 11:02 95 28 96 Mechanical Ventilator 35 07/05/18 10:26 98 07/05/18 08:40 100 22 35 07/05/18 08:33 77 129/66 07/05/18 08:00 98.1 77 16 129/66 (87) 100 07/05/18 08:00 Mechanical Ventilator 07/05/18 08:00 99 07/05/18 08:00 35 07/05/18 07:29 100 28 96 Mechanical Ventilator 35 07/05/18 07:28 100 18 35 07/05/18 07:15 100 28 96 Mechanical Ventilator 35 07/05/18 04:56 102 18 35 07/05/18 04:00 99.3 82 18 125/71 (89) 98 07/05/18 04:00 Mechanical Ventilator 07/05/18 04:00 35 07/05/18 04:00 98 07/05/18 03:30 87 18 99 Mechanical Ventilator 35 07/05/18 03:21 102 18 35 07/05/18 03:20 104 18 97 Mechanical Ventilator 35 07/05/18 01:20 82 17 35 07/05/18 00:00 80 07/05/18 00:00 Mechanical Ventilator 07/05/18 00:00 99.1 84 20 150/68 (95) 97 07/05/18 00:00 35 07/04/18 23:09 84 19 99 Mechanical Ventilator 35 07/04/18 22:58 84 16 35 07/04/18 22:58 85 17 98 Mechanical Ventilator 35 07/04/18 21:07 91 25 35 Intake and Output 07/04/18 07/05/18 19:00 07:00 Intake Total 1665 ml 1350 ml Output Total 650 ml 800 ml Balance 1015 ml 550 ml Free Water 350 ml 100 ml IV Total 600 ml 590 ml Tube Feeding 715 ml 660 ml Output Urine Total 550 ml 700 ml Stool Total 100 ml 100 ml Laboratory Tests 07/05/18 16:00: C-Reactive Protein, Quantitative 12.3H Height (Feet): 5 Height (Inches): 4.00 Weight (Pounds): 128 Objective Elderly WW NCAT, (+) NGT, (+)ETT Supple CTA RRR Soft, NT, ND No edema restrained Panchito Rahmna MD Jul 05, 2018 20:17
--- NOTE | 2018-07-05 21:42 | General Progress Note ---
Assessment/Plan Status: progressing Assessment/Plan This is an 87-year-old female admitted with chronic obstructive pulmonary disease exacerbation, right lower lobe infiltrate/pneumonia with altered mental status and acute kidney injury. The patient will be admitted to [facility] with the following medical problems. 1. Chronic obstructive pulmonary disease exacerbation and pneumonia. The patient has been seen by Pulmonary. Infectious Disease has been consulted, pancultured. IV antibiotics per ID. Continue with BiPAP and suction p.r.n. Transition to Venturi-mask when stable. 2. Acute kidney injury. We will monitor I's and O's, gentle intravenous fluids. Repeat a BMP in a.m. Consider Nephrology consult. 3. History of chronic atrial fibrillation. Continue with amiodarone. The patient is in sinus rhythm at this time. 4. History of hypertension. Continue with amlodipine and hold for systolic blood pressure less than 110. 5. Altered mental status, most likely from above conditions. We will keep n.p.o. except for medications and start IV fluids. 6. DVT prophylaxis with heparin subcutaneous and SCDs. 7. The patient is Full Code per policy. We will discuss with the family. 8. hypokalmia 9. Anemia 10. CHf acute on chronic 11. leucocytosis 12. ARF? ATN 13. C dif positive 14. hyperkalemia 15. pleural effusion 16. S/p Tracheostomy 06/22/18 17, hypernatremia Plan: - continue respiratory support - aggressive pulmonary suction - HD on hold as patient putting out better urine and createnine is improving - antibiotics per ID - on oral vanco for one more day - am labs - weaning off vent per pulmonary - Gi prophylaxis with protonix iv 40 mg daily - s/p Kayexalate - norvasc added for better BP cotrol - s/p PEG discussed with nurse Contact isolation for C dif now in [facility] - transfuse one unit of PRBC on 06-28-18 - Cpap trial - am labs - continue 21 day course of oral Vanco for C. D will dc to subacute or LTAC based [facility] [place] [facility] if [facility] Subjective Date patient seen: Jul 05, 2018 ROS Limited/Unobtainable: Yes Allergies: Coded Allergies: Mushroom (Verified Allergy, Severe, 05/28/18) MORPHINE (Unverified Allergy, Intermediate, Itching, 01/04/15) PENICILLINS (Unverified Allergy, Intermediate, Hives, 06/25/18) Tolerates cephalosporins and carbapenems CELECOXIB (Verified Allergy, Mild, 01/15/09) Subjective patient is now reintubated, in renal failure, HD on hold as making better urine , C dif positive on ngt vanco, s/p tracheostomy. s/p PEG, moved to [facility] on , on Cpap trila, s/p thoracentesis yesterday and transfusion, more alert today per nurse, still with diarrhea Vanco oral ordered by gi Objective Last 24 Hour Vital Signs Date Time Temp Pulse Resp B/P (MAP) Pulse Ox O2 Delivery O2 Flow Rate FiO2 07/05/18 21:11 90 16 35 07/05/18 19:31 90 19 100 Mechanical Ventilator 35 07/05/18 19:21 91 22 100 Mechanical Ventilator 35 07/05/18 19:21 91 22 35 07/05/18 17:24 80 16 35 07/05/18 16:00 98.8 99 16 131/54 (79) 100 07/05/18 16:00 Mechanical Ventilator 07/05/18 16:00 35 07/05/18 15:48 92 07/05/18 15:15 102 26 96 Mechanical Ventilator 35 07/05/18 15:00 102 27 96 Mechanical Ventilator 35 07/05/18 15:00 97 27 35 07/05/18 13:00 78 15 35 07/05/18 12:00 35 07/05/18 12:00 98.6 81 18 141/69 (93) 98 07/05/18 12:00 Mechanical Ventilator 07/05/18 11:33 83 07/05/18 11:18 95 24 97 Mechanical Ventilator 35 07/05/18 11:02 96 33 35 07/05/18 11:02 95 28 96 Mechanical Ventilator 35 07/05/18 10:26 98 07/05/18 08:40 100 22 35 07/05/18 08:33 77 129/66 07/05/18 08:00 98.1 77 16 129/66 (87) 100 07/05/18 08:00 Mechanical Ventilator 07/05/18 08:00 99 07/05/18 08:00 35 07/05/18 07:29 100 28 96 Mechanical Ventilator 35 07/05/18 07:28 100 18 35 07/05/18 07:15 100 28 96 Mechanical Ventilator 35 07/05/18 04:56 102 18 35 07/05/18 04:00 99.3 82 18 125/71 (89) 98 07/05/18 04:00 Mechanical Ventilator 07/05/18 04:00 35 07/05/18 04:00 98 07/05/18 03:30 87 18 99 Mechanical Ventilator 35 07/05/18 03:21 102 18 35 07/05/18 03:20 104 18 97 Mechanical Ventilator 35 07/05/18 01:20 82 17 35 07/05/18 00:00 80 07/05/18 00:00 Mechanical Ventilator 07/05/18 00:00 99.1 84 20 150/68 (95) 97 07/05/18 00:00 35 07/04/18 23:09 84 19 99 Mechanical Ventilator 35 07/04/18 22:58 84 16 35 07/04/18 22:58 85 17 98 Mechanical Ventilator 35 Intake and Output 07/04/18 07/05/18 19:00 07:00 Intake Total 1665 ml 1350 ml Output Total 650 ml 800 ml Balance 1015 ml 550 ml Free Water 350 ml 100 ml IV Total 600 ml 590 ml Tube Feeding 715 ml 660 ml Output Urine Total 550 ml 700 ml Stool Total 100 ml 100 ml Laboratory Tests 07/05/18 16:00: C-Reactive Protein, Quantitative 12.3H Height (Feet): 5 Height (Inches): 4.00 Weight (Pounds): 128 General Appearance: no apparent distress, alert EENT: PERRL/EOMI, pharynx normal Neck: non-tender, supple Cardiovascular: normal rate, regular rhythm, no gallop/murmur, no JVD Respiratory/Chest: decreased breath sounds Abdomen: non tender, soft, no mass Extremities: non-tender, normal inspection, no calf tenderness Edema: no edema noted Arm (L), no edema noted Arm (R), no edema noted Leg (L), no edema noted Leg (R), no edema noted Pedal (L), no edema noted Pedal (R), no edema noted Generalized Neurologic: alert Skin: warm/dry Cruz Valderrama MD Jul 05, 2018 21:42
--- NOTE | 2018-07-05 22:00 | NUR ---
NURSE NOTES: HS care rendered.Pos.chg.Backrub with lotion.Suctioned.NS Lavaged.Due Meds admin.Cont.IV Therapy.see I/O.
[2018-07-06] VITALS: BP 135/60
--- NOTE | 2018-07-06 00:10 | NUR ---
NURSE NOTES: Repositioned.Made comfortable.IV site infiltrated,Re-inserted (L) FA.infusing well.Suctioned.Monica.Vent. settings.No Distress.
[2018-07-06] MEDS: Albuterol/Ipratropium 3ml neb HHN PRN ×6 (03:52→23:39)
[2018-07-06 04:00] VITALS: BP 128/57
--- NOTE | 2018-07-06 04:00 | NUR ---
NURSE NOTES: Purewick dislodge,inct.of urine.Rectal tube remain intact.Janki Durbin chg.Monica.vent settings.Cont.Plan of care.
[2018-07-06] MEDS: D5 1/2NS 1,000 ML IV SCH (05:14)
[2018-07-06 05:46] LABS: HEMATOCRIT 21.1 % (37.0-47.0); MEAN CORPUSCULAR VOLUME 76 FL (80-99); PLATELET COUNT 277 K/UL (150-450); RED BLOOD COUNT 2.77 M/UL (4.20-5.40); WHITE BLOOD COUNT 7.7 K/UL (4.8-10.8)
[2018-07-06 05:55] LABS: HEMOGLOBIN 6.5 G/DL (12.0-16.0)
[2018-07-06 06:18] LABS: ALANINE AMINOTRANSFERASE 18 U/L (12-78); ALBUMIN 2.3 G/DL (3.4-5.0); ALBUMIN/GLOBULIN RATIO 0.5 (1.0-2.7); ALKALINE PHOSPHATASE 75 U/L (46-116); ANION GAP 6 mmol/L (5-15); ASPARTATE AMINO TRANSFERASE 19 U/L (15-37); BILIRUBIN,TOTAL 0.2 MG/DL (0.2-1.0); BLOOD UREA NITROGEN 52 mg/dL (7-18); CALCIUM 8.6 MG/DL (8.5-10.1); CARBON DIOXIDE 31 MMOL/L (21-32); CHLORIDE 103 MMOL/L (98-107); CREATININE 1.6 MG/DL (0.55-1.30); POTASSIUM 4.5 MMOL/L (3.5-5.1); SODIUM 140 MMOL/L (136-145)
--- NOTE | 2018-07-06 07:32 | NUR ---
HAND-OFF: Report given to MARGY SPEAR.
--- NOTE | 2018-07-06 07:42 | NUR ---
RESPIRATORY NOTE: received pt on vent with current orders. pt is trached with shiley 8, secured via trach tie/guard. no resp distress at this time. alarms are on and audible, vent plugged into red outlet and ambu bag at bedside. will cont to monitor.
[2018-07-06 08:00] VITALS: BP 132/56
--- NOTE | 2018-07-06 08:15 | NUR ---
NURSE NOTES: received pt in the bed, awake, vent dependent, vital signs stable, no co pain, no SOB, skin warm and dry to touch, dressing on sacral area dry and intact, yellow clear urine, rectal tube in place, tolerate GT feeding well, bed in low position, HOB elevated.
[2018-07-06 09:14] LABS: BASOPHILS % (AUTO) 1.1 % (0.0-2.0); EOSINOPHILS % (AUTO) 6.1 % (0.0-3.0); HEMATOCRIT 28.8 % (37.0-47.0); HEMOGLOBIN 8.8 G/DL (12.0-16.0); LYMPHOCYTES % (AUTO) 24.2 % (20.0-45.0); MEAN CORPUSCULAR VOLUME 75 FL (80-99); MONOCYTES % (AUTO) 7.2 % (1.0-10.0); NEUTROPHILS % (AUTO) 61.4 % (45.0-75.0); PLATELET COUNT 242 K/UL (150-450); RED BLOOD COUNT 3.85 M/UL (4.20-5.40); RED CELL DISTRIBUTION WIDTH 18.1 % (11.6-14.8); WHITE BLOOD COUNT 9.7 K/UL (4.8-10.8)
[2018-07-06 09:31] LABS: ALANINE AMINOTRANSFERASE 20 U/L (12-78); ALBUMIN 2.7 G/DL (3.4-5.0); ALBUMIN/GLOBULIN RATIO 0.6 (1.0-2.7); ALKALINE PHOSPHATASE 89 U/L (46-116); ANION GAP 7 mmol/L (5-15); ASPARTATE AMINO TRANSFERASE 18 U/L (15-37); BILIRUBIN,TOTAL 0.3 MG/DL (0.2-1.0); BLOOD UREA NITROGEN 52 mg/dL (7-18); CALCIUM 8.8 MG/DL (8.5-10.1); CARBON DIOXIDE 33 MMOL/L (21-32); CHLORIDE 102 MMOL/L (98-107); CREATININE 1.5 MG/DL (0.55-1.30); POTASSIUM 4.1 MMOL/L (3.5-5.1); SODIUM 142 MMOL/L (136-145)
--- NOTE | 2018-07-06 11:18 | NUR ---
RESPIRATORY NOTE: pt placed on CPAP PS 8 at 1110. pt tolerating well. respirations ranging from 26-30, maintaining spo2 of 97-100%, Vt mid 250-400 and RSBI below 105. will cont to monitor.
--- NOTE | 2018-07-06 11:28 | NUR ---
RESPIRATORY NOTE: pt tolerated CPAP PS 8 for about 20 mins. pt started to get agitated, RR increased slightly to mid 30s. placed back on AC mode. RN aware
[2018-07-06 12:00] VITALS: BP 147/89
[2018-07-06] MEDS ORDERED: Haloperidol 5mg/ml Inj IM PRN (12:00)
--- NOTE | 2018-07-06 13:49 | Infectious Diseases Prog Note ---
Assessment/Plan Assessment/Plan 87 yo feamle with PMHx of COPD, HTN, and A.fib [facility]. Sepsis;improving - Likely PNA 06/21 CXR: Slightly increased right lung opacity, suspect increasing pleural fluid.Increased retrocardiac consolidation 06/17 CXR: Increasing right lung opacity, likely representing decreasing pleural fluid but may also represent increasing parenchymal consolidation 06/15 CXR: Increasing opacification right hemithorax, likely reflecting increasing pleural fluid but may also reflect increasing pulmonary parenchymal consolidation 06/14 CXR: Diffuse right lung hazy opacity appears similar to the prior exam. 06/12 CXR: : Hazy opacification of the right hemithorax, likely reflecting pleural fluid, is unchanged. 05/28/18 CXR with atalectasis vs consolidation in the right side. 06/01/18 CXR - Extensive right hemithorax opacification UA (-) sputum cx 06/15: MRSA (likely a colonizer at this point), ESBL E.coli Sputum Cx 05/28/18 - MRSA (Inf Neg) Urine legionella (-) Acute respiratory failure s/p intubation 06/16 -s/p trach 06/23 R>L pleural effusion; exudate -FLuid pH 8, protein 3.5 (serum 6.5), LDH 111 (serum 203: cx NTD -06/28 SP Successful ultrasound-guided R thoracentesis, yielding 600 milliliters of fluid Cdiff colitis Diarrhea persists -06/19 Cdif toxin a/b + R lung collapse: -06/16 CXR: Complete opacification of the right hemithorax. Probably due to complete atelectasis of the right lung, with evidence of abrupt occlusion of the right mainstem bronchus. Given findings on prior chest radiographs, there is probably significant component of pleural effusion as well. Positive blood Cx - Likely contaminant BCx 05/28/18 - CoNS BCX 05/30/18 - NGTD Leukocytosis , recurrent mild- SP Fever, SP COPD CAD A. fib s/p PEG 06/24 PLAN -Continue Fidaxomicin 200mg bid #/ -3/5 SP PO Vancomycin #17 -06/26 SP Ertapenem #6 -06/20 SP Meropenem #5 -06/17 SP IV Vancomycin #21 -06/16 SP Cefepime #20 - Monitor CBC and Temps Discussed with RN Subjective Allergies: Coded Allergies: Mushroom (Verified Allergy, Severe, 05/28/18) MORPHINE (Unverified Allergy, Intermediate, Itching, 01/04/15) PENICILLINS (Unverified Allergy, Intermediate, Hives, 06/25/18) Tolerates cephalosporins and carbapenems CELECOXIB (Verified Allergy, Mild, 01/15/09) Subjective afebrile no leukocytosis started on Dificid yesterday Objective Vital Signs Last 24 Hour Vital Signs Date Time Temp Pulse Resp B/P (MAP) Pulse Ox O2 Delivery O2 Flow Rate FiO2 07/06/18 12:00 35 07/06/18 12:00 98.3 99 30 147/89 (108) 98 07/06/18 12:00 Mechanical Ventilator 07/06/18 11:30 97 17 100 Mechanical Ventilator 35 07/06/18 11:16 99 07/06/18 11:10 87 27 35 07/06/18 11:09 88 16 100 Mechanical Ventilator 35 07/06/18 09:31 96 132/56 07/06/18 09:18 96 26 35 07/06/18 09:00 84 07/06/18 08:00 35 07/06/18 08:00 98.6 78 18 132/56 (81) 98 07/06/18 08:00 Mechanical Ventilator 07/06/18 07:40 82 17 100 Mechanical Ventilator 35 07/06/18 07:34 83 16 100 Mechanical Ventilator 35 07/06/18 07:30 82 25 35 07/06/18 05:30 70 18 35 07/06/18 04:02 89 18 100 Mechanical Ventilator 35 07/06/18 04:00 98.3 78 17 128/57 (80) 100 07/06/18 04:00 35 07/06/18 04:00 78 07/06/18 04:00 Mechanical Ventilator 07/06/18 03:53 70 18 35 07/06/18 03:52 78 16 99 Mechanical Ventilator 35 07/06/18 01:30 79 16 35 07/06/18 00:00 Mechanical Ventilator 07/06/18 00:00 97.3 81 17 135/60 (85) 98 07/06/18 00:00 88 07/06/18 00:00 35 07/05/18 23:16 88 16 100 Mechanical Ventilator 35 07/05/18 23:05 77 16 35 3/5/19 23:05 77 16 100 Mechanical Ventilator 35 07/05/18 21:11 90 16 35 07/05/18 20:00 35 07/05/18 20:00 96 07/05/18 20:00 98.6 94 26 146/67 (93) 98 07/05/18 20:00 Mechanical Ventilator 07/05/18 19:31 90 19 100 Mechanical Ventilator 35 07/05/18 19:21 91 22 100 Mechanical Ventilator 35 07/05/18 19:21 91 22 35 07/05/18 17:24 80 16 35 07/05/18 16:00 98.8 99 16 131/54 (79) 100 07/05/18 16:00 Mechanical Ventilator 07/05/18 16:00 35 07/05/18 15:48 92 07/05/18 15:15 102 26 96 Mechanical Ventilator 35 07/05/18 15:00 102 27 96 Mechanical Ventilator 35 07/05/18 15:00 97 27 35 Height (Feet): 5 Height (Inches): 4.00 Weight (Pounds): 120 Objective General Appearance: no apparent distress, Neck: supple, trach in place Cardiovascular: normal rate Respiratory/Chest: decreased BS at bases Abdomen: normal bowel sounds, non tender, soft; Peg in place rectal tube in place Extremities: trace edema Laboratory Tests Test 07/05/18 16:00 07/06/18 03:40 07/06/18 08:30 C-Reactive Protein, Quantitative 12.3 mg/dL (0.00-0.90) H White Blood Count 7.7 K/UL (4.8-10.8) 9.7 K/UL (4.8-10.8) Red Blood Count 2.77 M/UL (4.20-5.40) L 3.85 M/UL (4.20-5.40) L Hemoglobin 6.5 G/DL (12.0-16.0) *L 8.8 G/DL (12.0-16.0) #L Hematocrit 21.1 % (37.0-47.0) L 28.8 % (37.0-47.0) #L Mean Corpuscular Volume 76 FL (80-99) L 75 FL (80-99) L Mean Corpuscular Hemoglobin 23.4 PG (27.0-31.0) L 22.9 PG (27.0-31.0) L Mean Corpuscular Hemoglobin Concent 30.7 G/DL (32.0-36.0) L 30.6 G/DL (32.0-36.0) L Red Cell Distribution Width 19.0 % (11.6-14.8) H 18.1 % (11.6-14.8) H Platelet Count 277 K/UL (150-450) 242 K/UL (150-450) Mean Platelet Volume 6.1 FL (6.5-10.1) L 8.1 FL (6.5-10.1) Neutrophils (%) (Auto) % (45.0-75.0) 61.4 % (45.0-75.0) Lymphocytes (%) (Auto) % (20.0-45.0) 24.2 % (20.0-45.0) Monocytes (%) (Auto) % (1.0-10.0) 7.2 % (1.0-10.0) Eosinophils (%) (Auto) % (0.0-3.0) 6.1 % (0.0-3.0) H Basophils (%) (Auto) % (0.0-2.0) 1.1 % (0.0-2.0) Differential Total Cells Counted 100 Neutrophils % (Manual) 48 % (45-75) Lymphocytes % (Manual) 30 % (20-45) Monocytes % (Manual) 4 % (1-10) Eosinophils % (Manual) 12 % (0-3) H Basophils % (Manual) 1 % (0-2) Band Neutrophils 5 % (0-8) Platelet Estimate Adequate Platelet Morphology Normal Hypochromasia 2+ Anisocytosis 2+ Microcytosis 1+ Sodium Level 140 MMOL/L (136-145) 142 MMOL/L (136-145) Potassium Level 4.5 MMOL/L (3.5-5.1) 4.1 MMOL/L (3.5-5.1) Chloride Level 103 MMOL/L (98-107) 102 MMOL/L (98-107) Carbon Dioxide Level 31 MMOL/L (21-32) 33 MMOL/L (21-32) H Anion Gap 6 mmol/L (5-15) 7 mmol/L (5-15) Blood Urea Nitrogen 52 mg/dL (7-18) H 52 mg/dL (7-18) H Creatinine 1.6 MG/DL (0.55-1.30) H 1.5 MG/DL (0.55-1.30) H Estimat Glomerular Filtration Rate mL/min (>60) mL/min (>60) Glucose Level 114 MG/DL (74-106) H 120 MG/DL (74-106) H Calcium Level 8.6 MG/DL (8.5-10.1) 8.8 MG/DL (8.5-10.1) Phosphorus Level 3.0 MG/DL (2.5-4.9) Magnesium Level 1.7 MG/DL (1.8-2.4) L 1.7 MG/DL (1.8-2.4) L Total Bilirubin 0.2 MG/DL (0.2-1.0) 0.3 MG/DL (0.2-1.0) Aspartate Amino Transf (AST/SGOT) 19 U/L (15-37) 18 U/L (15-37) Alanine Aminotransferase (ALT/SGPT) 18 U/L (12-78) 20 U/L (12-78) Alkaline Phosphatase 75 U/L (46-116) 89 U/L (46-116) Pro-B-Type Natriuretic Peptide 1677 pg/mL (0-125) H Total Protein 6.7 G/DL (6.4-8.2) 7.5 G/DL (6.4-8.2) Albumin 2.3 G/DL (3.4-5.0) L 2.7 G/DL (3.4-5.0) L Globulin 4.4 g/dL 4.8 g/dL Albumin/Globulin Ratio 0.5 (1.0-2.7) L 0.6 (1.0-2.7) L Current Medications Medications (Trade) Dose Ordered Sig/Ann Route PRN Reason Start Time Stop Time Status Last Admin Dose Admin Acetaminophen (Tylenol) 650 mg Q4H PRN ORAL Mild Pain/Temp > 100.5 06/26/18 15:30 07/16/18 19:18 06/27/18 17:06 Acetylcysteine (Mucomyst) 100 mg Q4HRT HHN 2/24/19 15:00 07/09/18 10:59 07/06/18 11:09 Albuterol/ Ipratropium (Albuterol/ Ipratropium) 3 ml Q4H PRN HHN Shortness of Breath 07/02/18 19:15 07/07/18 19:14 07/06/18 11:09 Amiodarone HCl (Cordarone) 200 mg DAILY@1800 GT 06/26/18 18:00 07/24/18 17:59 07/05/18 18:00 Amlodipine Besylate (Norvasc) 2.5 mg DAILY ORAL 06/27/18 09:00 07/25/18 08:59 07/06/18 09:31 Dextrose/Sodium Chloride 1,000 ml @ 50 mls/hr Q20H IV 07/01/18 08:00 07/31/18 07:59 07/06/18 05:14 Fidaxomicin (Dificid) 200 mg EVERY 12 HOURS ORAL 07/05/18 21:00 07/15/18 09:01 07/06/18 09:30 Furosemide (Lasix) 20 mg DAILY ORAL 07/05/18 10:15 08/04/18 10:14 07/06/18 09:31 Haloperidol Lactate (Haldol) 5 mg Q6H PRN IM Agitation 07/06/18 12:00 08/05/18 11:59 07/06/18 13:01 Metoprolol Tartrate (Lopressor) 5 mg Q6H PRN IVP HR > 125 06/26/18 18:00 07/16/18 17:59 Ondansetron HCl (Zofran) 4 mg Q6H PRN IVP Nausea & Vomiting 06/26/18 14:00 07/16/18 13:59 Potassium Chloride (K-Dur) 20 meq TWICE A DAY GT 07/05/18 09:00 08/04/18 08:59 07/06/18 09:31 Quetiapine Fumarate (SEROquel) 12.5 mg QHS ORAL 06/29/18 21:00 07/29/18 20:59 07/05/18 20:33 Natty Hernandes M.D. Jul 06, 2018 13:49
--- NOTE | 2018-07-06 14:13 | General Progress Note ---
Assessment/Plan Status: progressing Assessment/Plan This is an 87-year-old female admitted with chronic obstructive pulmonary disease exacerbation, right lower lobe infiltrate/pneumonia with altered mental status and acute kidney injury. The patient will be admitted to [facility] with the following medical problems. 1. Chronic obstructive pulmonary disease exacerbation and pneumonia. The patient has been seen by Pulmonary. Infectious Disease has been consulted, pancultured. IV antibiotics per ID. Continue with BiPAP and suction p.r.n. Transition to Venturi-mask when stable. 2. Acute kidney injury. We will monitor I's and O's, gentle intravenous fluids. Repeat a BMP in a.m. Consider Nephrology consult. 3. History of chronic atrial fibrillation. Continue with amiodarone. The patient is in sinus rhythm at this time. 4. History of hypertension. Continue with amlodipine and hold for systolic blood pressure less than 110. 5. Altered mental status, most likely from above conditions. We will keep n.p.o. except for medications and start IV fluids. 6. DVT prophylaxis with heparin subcutaneous and SCDs. 7. The patient is Full Code per policy. We will discuss with the family. 8. hypokalmia 9. Anemia 10. CHf acute on chronic 11. leucocytosis 12. ARF? ATN 13. C dif positive 14. hyperkalemia 15. pleural effusion 16. S/p Tracheostomy 06/22/18 17, hypernatremia Plan: - continue respiratory support - aggressive pulmonary suction - HD on hold as patient putting out better urine and createnine is improving - antibiotics per ID - on oral vanco for one more day - am labs - weaning off vent per pulmonary - Gi prophylaxis with protonix iv 40 mg daily - s/p Kayexalate - norvasc added for better BP cotrol - s/p PEG discussed with nurse Contact isolation for C dif now in [facility] - transfuse one unit of PRBC on 06-28-18 - weaning trial - am labs - continue 10 day course of Difficid - agree with Lasix will dc to LTAC based on bed available [facility] if possible Subjective Date patient seen: Jul 06, 2018 ROS Limited/Unobtainable: Yes Allergies: Coded Allergies: Mushroom (Verified Allergy, Severe, 05/28/18) MORPHINE (Unverified Allergy, Intermediate, Itching, 01/04/15) PENICILLINS (Unverified Allergy, Intermediate, Hives, 06/25/18) Tolerates cephalosporins and carbapenems CELECOXIB (Verified Allergy, Mild, 01/15/09) Subjective patient was agitated and restraints ordered, on Difficid now as C dif not responding to oral Vanco Objective Last 24 Hour Vital Signs Date Time Temp Pulse Resp B/P (MAP) Pulse Ox O2 Delivery O2 Flow Rate FiO2 07/06/18 12:00 35 07/06/18 12:00 98.3 99 30 147/89 (108) 98 07/06/18 12:00 Mechanical Ventilator 07/06/18 11:30 97 17 100 Mechanical Ventilator 35 07/06/18 11:16 99 07/06/18 11:10 87 27 35 07/06/18 11:09 88 16 100 Mechanical Ventilator 35 07/06/18 09:31 96 132/56 07/06/18 09:18 96 26 35 07/06/18 09:00 84 07/06/18 08:00 35 07/06/18 08:00 98.6 78 18 132/56 (81) 98 07/06/18 08:00 Mechanical Ventilator 07/06/18 07:40 82 17 100 Mechanical Ventilator 35 07/06/18 07:34 83 16 100 Mechanical Ventilator 35 07/06/18 07:30 82 25 35 07/06/18 05:30 70 18 35 07/06/18 04:02 89 18 100 Mechanical Ventilator 35 07/06/18 04:00 98.3 78 17 128/57 (80) 100 07/06/18 04:00 35 07/06/18 04:00 78 07/06/18 04:00 Mechanical Ventilator 07/06/18 03:53 70 18 35 07/06/18 03:52 78 16 99 Mechanical Ventilator 35 07/06/18 01:30 79 16 35 07/06/18 00:00 Mechanical Ventilator 07/06/18 00:00 97.3 81 17 135/60 (85) 98 07/06/18 00:00 88 07/06/18 00:00 35 07/05/18 23:16 88 16 100 Mechanical Ventilator 35 07/05/18 23:05 77 16 35 07/05/18 23:05 77 16 100 Mechanical Ventilator 35 07/05/18 21:11 90 16 35 07/05/18 20:00 35 07/05/18 20:00 96 3/5/19 20:00 98.6 94 26 146/67 (93) 98 07/05/18 20:00 Mechanical Ventilator 07/05/18 19:31 90 19 100 Mechanical Ventilator 35 07/05/18 19:21 91 22 100 Mechanical Ventilator 35 07/05/18 19:21 91 22 35 07/05/18 17:24 80 16 35 07/05/18 16:00 98.8 99 16 131/54 (79) 100 07/05/18 16:00 Mechanical Ventilator 07/05/18 16:00 35 07/05/18 15:48 92 07/05/18 15:15 102 26 96 Mechanical Ventilator 35 07/05/18 15:00 102 27 96 Mechanical Ventilator 35 07/05/18 15:00 97 27 35 Intake and Output 07/05/18 07/06/18 19:00 07:00 Intake Total 1410 ml 1340 ml Output Total 300 ml 550 ml Balance 1110 ml 790 ml Free Water 150 ml 80 ml IV Total 600 ml 600 ml Tube Feeding 660 ml 660 ml Output Urine Total 300 ml 450 ml Stool Total 100 ml # Bowel Movements 30 Laboratory Tests 07/05/18 16:00: C-Reactive Protein, Quantitative 12.3H 07/06/18 03:40: White Blood Count 7.7, Red Blood Count 2.77L, Hemoglobin 6.5*L, Hematocrit 21.1L , Mean Corpuscular Volume 76L, Mean Corpuscular Hemoglobin 23.4L, Mean Corpuscular Hemoglobin Concent 30.7L, Red Cell Distribution Width 19.0H, Platelet Count 277, Mean Platelet Volume 6.1L, Neutrophils (%) (Auto) , Lymphocytes (%) (Auto) , Monocytes (%) (Auto) , Eosinophils (%) (Auto) , Basophils (%) (Auto) , Differential Total Cells Counted 100, Neutrophils % ( Manual) 48, Lymphocytes % (Manual) 30, Monocytes % (Manual) 4, Eosinophils % ( Manual) 12H, Basophils % (Manual) 1, Band Neutrophils 5, Platelet Estimate Adequate, Platelet Morphology Normal, Hypochromasia 2+, Anisocytosis 2+, Microcytosis 1+, Sodium Level 140, Potassium Level 4.5, Chloride Level 103, Carbon Dioxide Level 31, Anion Gap 6, Blood Urea Nitrogen 52H, Creatinine 1.6H, Estimat Glomerular Filtration Rate , Glucose Level 114H, Calcium Level 8.6, Phosphorus Level 3.0, Magnesium Level 1.7L, Total Bilirubin 0.2, Aspartate Amino Transf (AST/SGOT) 19, Alanine Aminotransferase (ALT/SGPT) 18, Alkaline Phosphatase 75, Pro-B-Type Natriuretic Peptide 1677H, Total Protein 6.7, Albumin 2.3L, Globulin 4.4, Albumin/Globulin Ratio 0.5L 07/06/18 08:30: White Blood Count 9.7, Red Blood Count 3.85L, Hemoglobin 8.8#L, Hematocrit 28.8# L, Mean Corpuscular Volume 75L, Mean Corpuscular Hemoglobin 22.9L, Mean Corpuscular Hemoglobin Concent 30.6L, Red Cell Distribution Width 18.1H, Platelet Count 242, Mean Platelet Volume 8.1, Neutrophils (%) (Auto) 61.4, Lymphocytes (%) (Auto) 24.2, Monocytes (%) (Auto) 7.2, Eosinophils (%) (Auto) 6.1H, Basophils (%) (Auto) 1.1, Sodium Level 142, Potassium Level 4.1, Chloride Level 102, Carbon Dioxide Level 33H, Anion Gap 7, Blood Urea Nitrogen 52H, Creatinine 1.5H, Estimat Glomerular Filtration Rate , Glucose Level 120H, Calcium Level 8.8, Magnesium Level 1.7L, Total Bilirubin 0.3, Aspartate Amino Transf (AST/SGOT) 18, Alanine Aminotransferase (ALT/SGPT) 20, Alkaline Phosphatase 89, Total Protein 7.5, Albumin 2.7L, Globulin 4.8, Albumin/Globulin Ratio 0.6L Height (Feet): 5 Height (Inches): 4.00 Weight (Pounds): 120 General Appearance: no apparent distress, alert EENT: PERRL/EOMI, pharynx normal Neck: non-tender, supple Respiratory/Chest: decreased breath sounds Abdomen: non tender, soft, no mass Extremities: non-tender, normal inspection, no calf tenderness Edema: no edema noted Arm (L), no edema noted Arm (R), no edema noted Leg (L), no edema noted Leg (R), no edema noted Pedal (L), no edema noted Pedal (R), no edema noted Generalized Edema: trace edema Neurologic: oriented x 3 Skin: warm/dry Lymphatic: normal anterior cervical (L), normal anterior cervical (R), normal posterior cervical (L), normal posterior cervical (R), normal submandibular (L) , normal submandibular (R), normal supraclavicular (L), normal supraclavicular ( R), normal axillary (L), normal axillary (R), normal inguinal (L), normal inguinal (R), normal other Cruz Valderrama MD Jul 06, 2018 14:13
--- NOTE | 2018-07-06 14:20 | NUR ---
NURSE NOTES: pt agitated, try to pull trach, soft wrist restrains applied, dr. Lo aware, dr. Valderrama aware, continue monitoring.
--- NOTE | 2018-07-06 14:28 | Nephrology Progress Note ---
Assessment/Plan Problem List: (1) Acute renal failure Assessment: Cr lowering (2) Anuria (3) Acute respiratory failure Assessment: on vent (4) Dementia (5) Afib Assessment Cr lowering Urine out put rising Cr lowering other conditions: (1) Acute respiratory failure (2) Aspiration pneumonia (3) Acute encephalopathy (4) Pleural effusion (5) COPD (chronic obstructive pulmonary disease) (6) CAD (coronary artery disease) (7) Dementia Plan Labs OK Now trached and Pegged Cr lowering- Urine out put higher monitor vanco level K and Phos and Mag as needed Anemia porter Adjust BP meds fu Lytes Gastric support per orders Subjective ROS Limited/Unobtainable: Yes Objective Objective Last 24 Hour Vital Signs Date Time Temp Pulse Resp B/P (MAP) Pulse Ox O2 Delivery O2 Flow Rate FiO2 07/06/18 13:08 62 25 35 07/06/18 12:00 35 07/06/18 12:00 98.3 99 30 147/89 (108) 98 07/06/18 12:00 Mechanical Ventilator 07/06/18 11:30 97 17 100 Mechanical Ventilator 35 07/06/18 11:16 99 07/06/18 11:10 87 27 35 07/06/18 11:09 88 16 100 Mechanical Ventilator 35 07/06/18 09:31 96 132/56 07/06/18 09:18 96 26 35 07/06/18 09:00 84 07/06/18 08:00 35 07/06/18 08:00 98.6 78 18 132/56 (81) 98 07/06/18 08:00 Mechanical Ventilator 07/06/18 07:40 82 17 100 Mechanical Ventilator 35 07/06/18 07:34 83 16 100 Mechanical Ventilator 35 07/06/18 07:30 82 25 35 07/06/18 05:30 70 18 35 07/06/18 04:02 89 18 100 Mechanical Ventilator 35 07/06/18 04:00 98.3 78 17 128/57 (80) 100 07/06/18 04:00 35 07/06/18 04:00 78 07/06/18 04:00 Mechanical Ventilator 07/06/18 03:53 70 18 35 07/06/18 03:52 78 16 99 Mechanical Ventilator 35 07/06/18 01:30 79 16 35 07/06/18 00:00 Mechanical Ventilator 07/06/18 00:00 97.3 81 17 135/60 (85) 98 07/06/18 00:00 88 07/06/18 00:00 35 07/05/18 23:16 88 16 100 Mechanical Ventilator 35 07/05/18 23:05 77 16 35 07/05/18 23:05 77 16 100 Mechanical Ventilator 35 07/05/18 21:11 90 16 35 07/05/18 20:00 35 07/05/18 20:00 96 07/05/18 20:00 98.6 94 26 146/67 (93) 98 07/05/18 20:00 Mechanical Ventilator 07/05/18 19:31 90 19 100 Mechanical Ventilator 35 07/05/18 19:21 91 22 100 Mechanical Ventilator 35 07/05/18 19:21 91 22 35 07/05/18 17:24 80 16 35 07/05/18 16:00 98.8 99 16 131/54 (79) 100 07/05/18 16:00 Mechanical Ventilator 07/05/18 16:00 35 07/05/18 15:48 92 07/05/18 15:15 102 26 96 Mechanical Ventilator 35 07/05/18 15:00 102 27 96 Mechanical Ventilator 35 07/05/18 15:00 97 27 35 Intake and Output 07/05/18 07/06/18 18:59 06:59 Intake Total 1400 ml 1340 ml Output Total 300 ml 550 ml Balance 1100 ml 790 ml Free Water 150 ml 80 ml IV Total 590 ml 600 ml Tube Feeding 660 ml 660 ml Output Urine Total 300 ml 450 ml Stool Total 100 ml # Bowel Movements 30 Laboratory Tests 07/05/18 16:00: C-Reactive Protein, Quantitative 12.3H 07/06/18 03:40: White Blood Count 7.7, Red Blood Count 2.77L, Hemoglobin 6.5*L, Hematocrit 21.1L , Mean Corpuscular Volume 76L, Mean Corpuscular Hemoglobin 23.4L, Mean Corpuscular Hemoglobin Concent 30.7L, Red Cell Distribution Width 19.0H, Platelet Count 277, Mean Platelet Volume 6.1L, Neutrophils (%) (Auto) , Lymphocytes (%) (Auto) , Monocytes (%) (Auto) , Eosinophils (%) (Auto) , Basophils (%) (Auto) , Differential Total Cells Counted 100, Neutrophils % ( Manual) 48, Lymphocytes % (Manual) 30, Monocytes % (Manual) 4, Eosinophils % ( Manual) 12H, Basophils % (Manual) 1, Band Neutrophils 5, Platelet Estimate Adequate, Platelet Morphology Normal, Hypochromasia 2+, Anisocytosis 2+, Microcytosis 1+, Sodium Level 140, Potassium Level 4.5, Chloride Level 103, Carbon Dioxide Level 31, Anion Gap 6, Blood Urea Nitrogen 52H, Creatinine 1.6H, Estimat Glomerular Filtration Rate , Glucose Level 114H, Calcium Level 8.6, Phosphorus Level 3.0, Magnesium Level 1.7L, Total Bilirubin 0.2, Aspartate Amino Transf (AST/SGOT) 19, Alanine Aminotransferase (ALT/SGPT) 18, Alkaline Phosphatase 75, Pro-B-Type Natriuretic Peptide 1677H, Total Protein 6.7, Albumin 2.3L, Globulin 4.4, Albumin/Globulin Ratio 0.5L 07/06/18 08:30: White Blood Count 9.7, Red Blood Count 3.85L, Hemoglobin 8.8#L, Hematocrit 28.8# L, Mean Corpuscular Volume 75L, Mean Corpuscular Hemoglobin 22.9L, Mean Corpuscular Hemoglobin Concent 30.6L, Red Cell Distribution Width 18.1H, Platelet Count 242, Mean Platelet Volume 8.1, Neutrophils (%) (Auto) 61.4, Lymphocytes (%) (Auto) 24.2, Monocytes (%) (Auto) 7.2, Eosinophils (%) (Auto) 6.1H, Basophils (%) (Auto) 1.1, Sodium Level 142, Potassium Level 4.1, Chloride Level 102, Carbon Dioxide Level 33H, Anion Gap 7, Blood Urea Nitrogen 52H, Creatinine 1.5H, Estimat Glomerular Filtration Rate , Glucose Level 120H, Calcium Level 8.8, Magnesium Level 1.7L, Total Bilirubin 0.3, Aspartate Amino Transf (AST/SGOT) 18, Alanine Aminotransferase (ALT/SGPT) 20, Alkaline Phosphatase 89, Total Protein 7.5, Albumin 2.7L, Globulin 4.8, Albumin/Globulin Ratio 0.6L Height (Feet): 5 Height (Inches): 4.00 Weight (Pounds): 120 General Appearance: no apparent distress Cardiovascular: normal rate Respiratory/Chest: decreased breath sounds Abdomen: soft Objective no change Kendrick Jimenez MD Jul 06, 2018 14:28
--- NOTE | 2018-07-06 14:32 | NUR ---
Social Service Note Follow up call placed to Karen at [facility], no available beds at all [facility] locations. Will continue to follow up. SW discussed with Dr. Valderrama. Addendum: 07/06/18 at 1707 by DEMARIO ZAMORA Message left for patient's son Jacinto [phone] informing him CM obtained a bed at [facility]. [facility] continues to not have available beds.
[2018-07-06 16:00] VITALS: BP 142/70
--- NOTE | 2018-07-06 17:05 | NUR ---
[employer] NOTES PT ACCEPTED TO [facility] IN [place] ROOM [address] BED A. AWAITNG FOR POA CALL BACK. NURSE T CALL AMBULANCE ONCE POA IS NOTIFIED.
[2018-07-06] MEDS: Amiodarone 200mg tab GT SCH (18:03)
--- NOTE | 2018-07-06 18:14 | NUR ---
DISCHARGE PLANNING: NOTE DEVAN SPOKE TO SANTOS [phone] ON A CONFERENCE CALL WITH [facility] (DIRECTOR AT [facility]). AN EXPLANATION OF BENEFITS AND SERVICES TO BE RENDERED WAS PROVIDED. THIAGOSABRA (BEE) IS REFUSING TRANSFER AT THIS TIME. MEDICARE APPEALS PROCESS WAS EXPLAINED TO HIM AND APPEALS NUMBER PROVIDED. [employer] SCIENTIST [employer] NURSING MADE AWARE.
--- NOTE | 2018-07-06 18:17 | General Progress Note ---
Assessment/Plan Assessment/Plan Assessment - Resp failure - s/p PEG - C DIff diarrhea - COPD - CHF - PNA - Anemia Recommendations - Vent care - Elevated HOB - Monitor residuals - Pulmonary toilet - wean down acid suppression - Dificid Subjective Allergies: Coded Allergies: Mushroom (Verified Allergy, Severe, 05/28/18) MORPHINE (Unverified Allergy, Intermediate, Itching, 01/04/15) PENICILLINS (Unverified Allergy, Intermediate, Hives, 06/25/18) Tolerates cephalosporins and carbapenems CELECOXIB (Verified Allergy, Mild, 01/15/09) Subjective Seen in [place] tolerating TF minimal BM noted on Dificid Objective Last 24 Hour Vital Signs Date Time Temp Pulse Resp B/P (MAP) Pulse Ox O2 Delivery O2 Flow Rate FiO2 07/06/18 17:05 97 27 35 07/06/18 16:00 Mechanical Ventilator 07/06/18 16:00 99.3 99 27 142/70 (94) 98 07/06/18 16:00 88 07/06/18 16:00 35 07/06/18 15:30 91 24 100 Mechanical Ventilator 35 07/06/18 15:14 87 16 35 07/06/18 15:11 88 16 100 Mechanical Ventilator 35 07/06/18 13:08 62 25 35 07/06/18 12:00 100 07/06/18 12:00 35 07/06/18 12:00 98.3 99 30 147/89 (108) 98 07/06/18 12:00 Mechanical Ventilator 07/06/18 11:30 97 17 100 Mechanical Ventilator 35 07/06/18 11:16 99 07/06/18 11:10 87 27 35 07/06/18 11:09 88 16 100 Mechanical Ventilator 35 07/06/18 09:31 96 132/56 07/06/18 09:18 96 26 35 07/06/18 09:00 84 07/06/18 08:00 35 07/06/18 08:00 98.6 78 18 132/56 (81) 98 07/06/18 08:00 Mechanical Ventilator 07/06/18 07:40 82 17 100 Mechanical Ventilator 35 07/06/18 07:34 83 16 100 Mechanical Ventilator 35 07/06/18 07:30 82 25 35 07/06/18 05:30 70 18 35 07/06/18 04:02 89 18 100 Mechanical Ventilator 35 07/06/18 04:00 98.3 78 17 128/57 (80) 100 07/06/18 04:00 35 07/06/18 04:00 78 07/06/18 04:00 Mechanical Ventilator 07/06/18 03:53 70 18 35 07/06/18 03:52 78 16 99 Mechanical Ventilator 35 07/06/18 01:30 79 16 35 07/06/18 00:00 Mechanical Ventilator 07/06/18 00:00 97.3 81 17 135/60 (85) 98 07/06/18 00:00 88 07/06/18 00:00 35 07/05/18 23:16 88 16 100 Mechanical Ventilator 35 07/05/18 23:05 77 16 35 07/05/18 23:05 77 16 100 Mechanical Ventilator 35 07/05/18 21:11 90 16 35 07/05/18 20:00 35 07/05/18 20:00 96 07/05/18 20:00 98.6 94 26 146/67 (93) 98 07/05/18 20:00 Mechanical Ventilator 07/05/18 19:31 90 19 100 Mechanical Ventilator 35 07/05/18 19:21 91 22 100 Mechanical Ventilator 35 07/05/18 19:21 91 22 35 Intake and Output 07/05/18 07/06/18 18:59 06:59 Intake Total 1400 ml 1340 ml Output Total 300 ml 550 ml Balance 1100 ml 790 ml Free Water 150 ml 80 ml IV Total 590 ml 600 ml Tube Feeding 660 ml 660 ml Output Urine Total 300 ml 450 ml Stool Total 100 ml # Bowel Movements 30 Laboratory Tests 07/06/18 03:40: White Blood Count 7.7, Red Blood Count 2.77L, Hemoglobin 6.5*L, Hematocrit 21.1L , Mean Corpuscular Volume 76L, Mean Corpuscular Hemoglobin 23.4L, Mean Corpuscular Hemoglobin Concent 30.7L, Red Cell Distribution Width 19.0H, Platelet Count 277, Mean Platelet Volume 6.1L, Neutrophils (%) (Auto) , Lymphocytes (%) (Auto) , Monocytes (%) (Auto) , Eosinophils (%) (Auto) , Basophils (%) (Auto) , Differential Total Cells Counted 100, Neutrophils % ( Manual) 48, Lymphocytes % (Manual) 30, Monocytes % (Manual) 4, Eosinophils % ( Manual) 12H, Basophils % (Manual) 1, Band Neutrophils 5, Platelet Estimate Adequate, Platelet Morphology Normal, Hypochromasia 2+, Anisocytosis 2+, Microcytosis 1+, Sodium Level 140, Potassium Level 4.5, Chloride Level 103, Carbon Dioxide Level 31, Anion Gap 6, Blood Urea Nitrogen 52H, Creatinine 1.6H, Estimat Glomerular Filtration Rate , Glucose Level 114H, Calcium Level 8.6, Phosphorus Level 3.0, Magnesium Level 1.7L, Total Bilirubin 0.2, Aspartate Amino Transf (AST/SGOT) 19, Alanine Aminotransferase (ALT/SGPT) 18, Alkaline Phosphatase 75, Pro-B-Type Natriuretic Peptide 1677H, Total Protein 6.7, Albumin 2.3L, Globulin 4.4, Albumin/Globulin Ratio 0.5L 07/06/18 08:30: White Blood Count 9.7, Red Blood Count 3.85L, Hemoglobin 8.8#L, Hematocrit 28.8# L, Mean Corpuscular Volume 75L, Mean Corpuscular Hemoglobin 22.9L, Mean Corpuscular Hemoglobin Concent 30.6L, Red Cell Distribution Width 18.1H, Platelet Count 242, Mean Platelet Volume 8.1, Neutrophils (%) (Auto) 61.4, Lymphocytes (%) (Auto) 24.2, Monocytes (%) (Auto) 7.2, Eosinophils (%) (Auto) 6.1H, Basophils (%) (Auto) 1.1, Sodium Level 142, Potassium Level 4.1, Chloride Level 102, Carbon Dioxide Level 33H, Anion Gap 7, Blood Urea Nitrogen 52H, Creatinine 1.5H, Estimat Glomerular Filtration Rate , Glucose Level 120H, Calcium Level 8.8, Magnesium Level 1.7L, Total Bilirubin 0.3, Aspartate Amino Transf (AST/SGOT) 18, Alanine Aminotransferase (ALT/SGPT) 20, Alkaline Phosphatase 89, Total Protein 7.5, Albumin 2.7L, Globulin 4.8, Albumin/Globulin Ratio 0.6L Height (Feet): 5 Height (Inches): 4.00 Weight (Pounds): 120 Objective Elderly WW NCAT, (+) NGT, (+)ETT Supple CTA RRR Soft, NT, ND No edema restrained Panchito Rahman MD Jul 06, 2018 18:17
--- NOTE | 2018-07-06 19:31 | NUR ---
HAND-OFF: Report given to DAHIANA JI.
--- NOTE | 2018-07-06 19:35 | NUR ---
NURSE NOTES: Received report from Alessia Mckeon RN. Pt's in the bed, awake, trach to vent, dependent, Blanka 8, Ac 16, TV 350, 35%, PEEP 5. Vital signs stable, no s/s of pain, no SOB, skin warm and dry to touch, dressing on sacral area dry and intact, yellow clear urine, rectal tube in place, tolerate GT feeding well, running Vital AF 1.2 at 55ml/hr, Right FA 22G peripheral line intact, bed in low position, HOB elevated. Bilateral wrist soft restraints noted, no adverse. Will continue to monitor.
--- NOTE | 2018-07-06 19:54 | Cardiology Progress Note ---
Assessment/Plan Assessment/Plan COPD, congestive heart failure, atrial fibrillation sinus tachy agitation right lung collapse? anemia pleural effusion respirator failure tachy acute on chronic renal failure pleural effusion tele sinus vent support abx pulm rxn beta evelyn iv or via ngt prn amiod to 200 qd hemodynamically stable at the moment bp is high cr abn s/p trach and peg s/p thoracentesis duplex neg na better family refused ltach Subjective ROS Limited/Unobtainable: Yes Subjective in sdu on vent in isolation Objective Last 24 Hour Vital Signs Date Time Temp Pulse Resp B/P (MAP) Pulse Ox O2 Delivery O2 Flow Rate FiO2 07/06/18 17:05 97 27 35 07/06/18 16:00 Mechanical Ventilator 07/06/18 16:00 99.3 99 27 142/70 (94) 98 07/06/18 16:00 88 07/06/18 16:00 35 07/06/18 15:30 91 24 100 Mechanical Ventilator 35 07/06/18 15:14 87 16 35 07/06/18 15:11 88 16 100 Mechanical Ventilator 35 07/06/18 13:08 62 25 35 07/06/18 12:00 100 07/06/18 12:00 35 07/06/18 12:00 98.3 99 30 147/89 (108) 98 07/06/18 12:00 Mechanical Ventilator 07/06/18 11:30 97 17 100 Mechanical Ventilator 35 07/06/18 11:16 99 07/06/18 11:10 87 27 35 07/06/18 11:09 88 16 100 Mechanical Ventilator 35 07/06/18 09:31 96 132/56 07/06/18 09:18 96 26 35 07/06/18 09:00 84 07/06/18 08:00 35 07/06/18 08:00 98.6 78 18 132/56 (81) 98 07/06/18 08:00 Mechanical Ventilator 07/06/18 07:40 82 17 100 Mechanical Ventilator 35 07/06/18 07:34 83 16 100 Mechanical Ventilator 35 07/06/18 07:30 82 25 35 07/06/18 05:30 70 18 35 07/06/18 04:02 89 18 100 Mechanical Ventilator 35 07/06/18 04:00 98.3 78 17 128/57 (80) 100 3/6/19 04:00 35 07/06/18 04:00 78 07/06/18 04:00 Mechanical Ventilator 07/06/18 03:53 70 18 35 07/06/18 03:52 78 16 99 Mechanical Ventilator 35 07/06/18 01:30 79 16 35 07/06/18 00:00 Mechanical Ventilator 07/06/18 00:00 97.3 81 17 135/60 (85) 98 07/06/18 00:00 88 07/06/18 00:00 35 07/05/18 23:16 88 16 100 Mechanical Ventilator 35 07/05/18 23:05 77 16 35 07/05/18 23:05 77 16 100 Mechanical Ventilator 35 07/05/18 21:11 90 16 35 07/05/18 20:00 35 07/05/18 20:00 96 07/05/18 20:00 98.6 94 26 146/67 (93) 98 07/05/18 20:00 Mechanical Ventilator General Appearance: no apparent distress, on vent, patient on isolation Intake and Output 07/05/18 07/06/18 18:59 06:59 Intake Total 1400 ml 1340 ml Output Total 300 ml 550 ml Balance 1100 ml 790 ml Free Water 150 ml 80 ml IV Total 590 ml 600 ml Tube Feeding 660 ml 660 ml Output Urine Total 300 ml 450 ml Stool Total 100 ml # Bowel Movements 30 Laboratory Tests Test 07/06/18 03:40 07/06/18 08:30 White Blood Count 7.7 K/UL (4.8-10.8) 9.7 K/UL (4.8-10.8) Red Blood Count 2.77 M/UL (4.20-5.40) L 3.85 M/UL (4.20-5.40) L Hemoglobin 6.5 G/DL (12.0-16.0) *L 8.8 G/DL (12.0-16.0) #L Hematocrit 21.1 % (37.0-47.0) L 28.8 % (37.0-47.0) #L Mean Corpuscular Volume 76 FL (80-99) L 75 FL (80-99) L Mean Corpuscular Hemoglobin 23.4 PG (27.0-31.0) L 22.9 PG (27.0-31.0) L Mean Corpuscular Hemoglobin Concent 30.7 G/DL (32.0-36.0) L 30.6 G/DL (32.0-36.0) L Red Cell Distribution Width 19.0 % (11.6-14.8) H 18.1 % (11.6-14.8) H Platelet Count 277 K/UL (150-450) 242 K/UL (150-450) Mean Platelet Volume 6.1 FL (6.5-10.1) L 8.1 FL (6.5-10.1) Neutrophils (%) (Auto) % (45.0-75.0) 61.4 % (45.0-75.0) Lymphocytes (%) (Auto) % (20.0-45.0) 24.2 % (20.0-45.0) Monocytes (%) (Auto) % (1.0-10.0) 7.2 % (1.0-10.0) Eosinophils (%) (Auto) % (0.0-3.0) 6.1 % (0.0-3.0) H Basophils (%) (Auto) % (0.0-2.0) 1.1 % (0.0-2.0) Differential Total Cells Counted 100 Neutrophils % (Manual) 48 % (45-75) Lymphocytes % (Manual) 30 % (20-45) Monocytes % (Manual) 4 % (1-10) Eosinophils % (Manual) 12 % (0-3) H Basophils % (Manual) 1 % (0-2) Band Neutrophils 5 % (0-8) Platelet Estimate Adequate Platelet Morphology Normal Hypochromasia 2+ Anisocytosis 2+ Microcytosis 1+ Sodium Level 140 MMOL/L (136-145) 142 MMOL/L (136-145) Potassium Level 4.5 MMOL/L (3.5-5.1) 4.1 MMOL/L (3.5-5.1) Chloride Level 103 MMOL/L (98-107) 102 MMOL/L (98-107) Carbon Dioxide Level 31 MMOL/L (21-32) 33 MMOL/L (21-32) H Anion Gap 6 mmol/L (5-15) 7 mmol/L (5-15) Blood Urea Nitrogen 52 mg/dL (7-18) H 52 mg/dL (7-18) H Creatinine 1.6 MG/DL (0.55-1.30) H 1.5 MG/DL (0.55-1.30) H Estimat Glomerular Filtration Rate mL/min (>60) mL/min (>60) Glucose Level 114 MG/DL (74-106) H 120 MG/DL (74-106) H Calcium Level 8.6 MG/DL (8.5-10.1) 8.8 MG/DL (8.5-10.1) Phosphorus Level 3.0 MG/DL (2.5-4.9) Magnesium Level 1.7 MG/DL (1.8-2.4) L 1.7 MG/DL (1.8-2.4) L Total Bilirubin 0.2 MG/DL (0.2-1.0) 0.3 MG/DL (0.2-1.0) Aspartate Amino Transf (AST/SGOT) 19 U/L (15-37) 18 U/L (15-37) Alanine Aminotransferase (ALT/SGPT) 18 U/L (12-78) 20 U/L (12-78) Alkaline Phosphatase 75 U/L (46-116) 89 U/L (46-116) Pro-B-Type Natriuretic Peptide 1677 pg/mL (0-125) H Total Protein 6.7 G/DL (6.4-8.2) 7.5 G/DL (6.4-8.2) Albumin 2.3 G/DL (3.4-5.0) L 2.7 G/DL (3.4-5.0) L Globulin 4.4 g/dL 4.8 g/dL Albumin/Globulin Ratio 0.5 (1.0-2.7) L 0.6 (1.0-2.7) L Geoffrey Sandhu MD Jul 06, 2018 19:54
[2018-07-06 20:00] VITALS: BP 144/56
--- NOTE | 2018-07-06 21:23 | General Progress Note ---
Assessment/Plan Problem List: (1) encephalopathy due to toxin (2) Dementia ICD Codes: F03.90 - Unspecified dementia without behavioral disturbance SNOMED: 50293606 Assessment/Plan Haldol Im on board cont restraints. dw nurse Subjective Allergies: Coded Allergies: Mushroom (Verified Allergy, Severe, 05/28/18) MORPHINE (Unverified Allergy, Intermediate, Itching, 01/04/15) PENICILLINS (Unverified Allergy, Intermediate, Hives, 06/25/18) Tolerates cephalosporins and carbapenems CELECOXIB (Verified Allergy, Mild, 01/15/09) Subjective confused more agitated Objective Last 24 Hour Vital Signs Date Time Temp Pulse Resp B/P (MAP) Pulse Ox O2 Delivery O2 Flow Rate FiO2 07/06/18 20:56 85 19 35 07/06/18 20:17 94 17 100 Mechanical Ventilator 35 07/06/18 20:02 88 25 98 Mechanical Ventilator 35 07/06/18 20:00 88 22 35 07/06/18 17:05 97 27 35 07/06/18 16:00 Mechanical Ventilator 07/06/18 16:00 99.3 99 27 142/70 (94) 98 07/06/18 16:00 88 07/06/18 16:00 35 07/06/18 15:30 91 24 100 Mechanical Ventilator 35 07/06/18 15:14 87 16 35 07/06/18 15:11 88 16 100 Mechanical Ventilator 35 07/06/18 13:08 62 25 35 07/06/18 12:00 100 07/06/18 12:00 35 07/06/18 12:00 98.3 99 30 147/89 (108) 98 07/06/18 12:00 Mechanical Ventilator 07/06/18 11:30 97 17 100 Mechanical Ventilator 35 07/06/18 11:16 99 07/06/18 11:10 87 27 35 07/06/18 11:09 88 16 100 Mechanical Ventilator 35 07/06/18 09:31 96 132/56 07/06/18 09:18 96 26 35 07/06/18 09:00 84 07/06/18 08:00 35 07/06/18 08:00 98.6 78 18 132/56 (81) 98 07/06/18 08:00 Mechanical Ventilator 07/06/18 07:40 82 17 100 Mechanical Ventilator 35 07/06/18 07:34 83 16 100 Mechanical Ventilator 35 07/06/18 07:30 82 25 35 07/06/18 05:30 70 18 35 07/06/18 04:02 89 18 100 Mechanical Ventilator 35 07/06/18 04:00 98.3 78 17 128/57 (80) 100 07/06/18 04:00 35 07/06/18 04:00 78 07/06/18 04:00 Mechanical Ventilator 07/06/18 03:53 70 18 35 07/06/18 03:52 78 16 99 Mechanical Ventilator 35 07/06/18 01:30 79 16 35 07/06/18 00:00 Mechanical Ventilator 07/06/18 00:00 97.3 81 17 135/60 (85) 98 07/06/18 00:00 88 07/06/18 00:00 35 07/05/18 23:16 88 16 100 Mechanical Ventilator 35 07/05/18 23:05 77 16 35 07/05/18 23:05 77 16 100 Mechanical Ventilator 35 Intake and Output 07/05/18 07/06/18 18:59 06:59 Intake Total 1400 ml 1340 ml Output Total 300 ml 550 ml Balance 1100 ml 790 ml Free Water 150 ml 80 ml IV Total 590 ml 600 ml Tube Feeding 660 ml 660 ml Output Urine Total 300 ml 450 ml Stool Total 100 ml # Bowel Movements 30 Laboratory Tests 07/06/18 03:40: White Blood Count 7.7, Red Blood Count 2.77L, Hemoglobin 6.5*L, Hematocrit 21.1L , Mean Corpuscular Volume 76L, Mean Corpuscular Hemoglobin 23.4L, Mean Corpuscular Hemoglobin Concent 30.7L, Red Cell Distribution Width 19.0H, Platelet Count 277, Mean Platelet Volume 6.1L, Neutrophils (%) (Auto) , Lymphocytes (%) (Auto) , Monocytes (%) (Auto) , Eosinophils (%) (Auto) , Basophils (%) (Auto) , Differential Total Cells Counted 100, Neutrophils % ( Manual) 48, Lymphocytes % (Manual) 30, Monocytes % (Manual) 4, Eosinophils % ( Manual) 12H, Basophils % (Manual) 1, Band Neutrophils 5, Platelet Estimate Adequate, Platelet Morphology Normal, Hypochromasia 2+, Anisocytosis 2+, Microcytosis 1+, Sodium Level 140, Potassium Level 4.5, Chloride Level 103, Carbon Dioxide Level 31, Anion Gap 6, Blood Urea Nitrogen 52H, Creatinine 1.6H, Estimat Glomerular Filtration Rate , Glucose Level 114H, Calcium Level 8.6, Phosphorus Level 3.0, Magnesium Level 1.7L, Total Bilirubin 0.2, Aspartate Amino Transf (AST/SGOT) 19, Alanine Aminotransferase (ALT/SGPT) 18, Alkaline Phosphatase 75, Pro-B-Type Natriuretic Peptide 1677H, Total Protein 6.7, Albumin 2.3L, Globulin 4.4, Albumin/Globulin Ratio 0.5L 07/06/18 08:30: White Blood Count 9.7, Red Blood Count 3.85L, Hemoglobin 8.8#L, Hematocrit 28.8# L, Mean Corpuscular Volume 75L, Mean Corpuscular Hemoglobin 22.9L, Mean Corpuscular Hemoglobin Concent 30.6L, Red Cell Distribution Width 18.1H, Platelet Count 242, Mean Platelet Volume 8.1, Neutrophils (%) (Auto) 61.4, Lymphocytes (%) (Auto) 24.2, Monocytes (%) (Auto) 7.2, Eosinophils (%) (Auto) 6.1H, Basophils (%) (Auto) 1.1, Sodium Level 142, Potassium Level 4.1, Chloride Level 102, Carbon Dioxide Level 33H, Anion Gap 7, Blood Urea Nitrogen 52H, Creatinine 1.5H, Estimat Glomerular Filtration Rate , Glucose Level 120H, Calcium Level 8.8, Magnesium Level 1.7L, Total Bilirubin 0.3, Aspartate Amino Transf (AST/SGOT) 18, Alanine Aminotransferase (ALT/SGPT) 20, Alkaline Phosphatase 89, Total Protein 7.5, Albumin 2.7L, Globulin 4.8, Albumin/Globulin Ratio 0.6L Height (Feet): 5 Height (Inches): 4.00 Weight (Pounds): 120 General Appearance: alert, confused, moderate distress, agitated Liz Lo MD Jul 06, 2018 21:23
[2018-07-07] VITALS: BP 143/58
[2018-07-07] MEDS: Albuterol/Ipratropium 3ml neb HHN PRN ×5 (03:12→23:42)
[2018-07-07 04:00] VITALS: BP 133/75
[2018-07-07] MEDS: D5 1/2NS 1,000 ML IV SCH ×2 (04:00→23:30)
--- NOTE | 2018-07-07 07:15 | NUR ---
RESPIRATORY NOTE: Received pt on trach cuffed, Shiley size 8.0 with current vent setting: AC 16-350ml-35%FiO2- peep of 5. Pt is alert and awake, tolerating well setting. Breathing TX Mucomyst and Duoneb given without adverse reaction. Chicho rhonchi breath sounds heard upon auscultation, sxn small to moderate thin amount white secretions without incidents. Placed pt on SIMV 12- PS 12- peep of 5- 35% FiO2 per Dr. De Souza's weaning order. Pt is tolerating well. No resp distress noted. Alarms are set and audible, vent is plugged into the red outlet, ambu bag is at bedside. MARGY Paz made aware. Will continue to monitor pt closely.
--- NOTE | 2018-07-07 07:20 | NUR ---
NURSE NOTES: Pt received from MARGY Middleton in stable condition. Pt is slightly confused. Trach to Vent. Shiley 8 ac 16 TV 350 FiO2 35% Peep 5. GT noted running Vital AF 1.2 at 55cc/Hr. Rectal tube noted draining stool and and purewick draining yellow urine. Skin alterations noted. Pt is on APM/TAM mattress. SCDs noted. R FA 22g IV noted and patent running fluids at 50cc/Hr. Bilat wrist restraints noted, pt's skin on wrist intact and pulses present. Bed is in lowest position. Call light within reach. Side rails up x 3. Will continue to monitor pt.
--- NOTE | 2018-07-07 07:30 | NUR ---
HAND-OFF: Report given to MARGY Bland.
--- NOTE | 2018-07-07 07:50 | NUR ---
NURSE NOTES: Pt's O2 settings changed to SIMV mode with Pressure support of 12 TV 350 FiO2 35% by RT. Pt's SaO2 is 99%. Will continue to monitor pt during this weaning trial.
[2018-07-07 08:00] VITALS: BP 149/79
--- NOTE | 2018-07-07 10:36 | NUR ---
*-* CASE MANAGEMENT NOTES *-* MEDICARE APPEAL HAS BEEN MADE ON BEHALF OF THE PATIENT P:[phone] S/W JOSEFA CASE # [id number] Addendum: 07/07/18 at 1446 by IZZY KOHLER CM MEDICAL RECORDS HAVE BEEN FAXED TO [facility].
--- NOTE | 2018-07-07 10:56 | NUR ---
Social Service Note 2 messages left for Karen regarding bed availability at [facility] [phone], no return call at this time. SUGAR updated Dr. Valderrama. Anupam reviewing chart [phone], pending decision. Will continue to monitor.
[2018-07-07 12:00] VITALS: BP 159/66
--- NOTE | 2018-07-07 12:13 | General Progress Note ---
Assessment/Plan Problem List: (1) encephalopathy due to toxin (2) Dementia ICD Codes: F03.90 - Unspecified dementia without behavioral disturbance SNOMED: [id number] Status: not improved Assessment/Plan Haldol Im on board cont restraints. dw nurse recommend palliative care Subjective Neurologic/Psychiatric: Reports: anxiety Allergies: Coded Allergies: Mushroom (Verified Allergy, Severe, 05/28/18) MORPHINE (Unverified Allergy, Intermediate, Itching, 01/04/15) PENICILLINS (Unverified Allergy, Intermediate, Hives, 06/25/18) Tolerates cephalosporins and carbapenems CELECOXIB (Verified Allergy, Mild, 01/15/09) Subjective confused more agitated the pt stated she wants to go and pointing to up. Objective Last 24 Hour Vital Signs Date Time Temp Pulse Resp B/P (MAP) Pulse Ox O2 Delivery O2 Flow Rate FiO2 07/07/18 11:16 107 28 35 07/07/18 11:16 105 33 97 Mechanical Ventilator 35 07/07/18 11:03 106 33 97 Mechanical Ventilator 35 07/07/18 09:18 94 149/79 07/07/18 09:08 93 28 35 07/07/18 09:08 97 07/07/18 08:00 96 07/07/18 08:00 35 07/07/18 08:00 Mechanical Ventilator 07/07/18 08:00 98.1 94 25 149/79 (102) 100 07/07/18 07:14 93 26 35 07/07/18 07:14 91 15 100 Mechanical Ventilator 35 07/07/18 07:02 97 20 98 Mechanical Ventilator 35 07/07/18 05:18 88 23 35 07/07/18 04:00 Mechanical Ventilator 07/07/18 04:00 98.0 94 22 133/75 (94) 98 07/07/18 04:00 35 07/07/18 04:00 94 07/07/18 03:24 93 23 99 Mechanical Ventilator 35 07/07/18 03:11 83 19 98 Mechanical Ventilator 35 07/07/18 03:08 82 18 35 07/07/18 03:07 83 19 Mechanical Ventilator 35 07/07/18 00:46 86 20 35 07/07/18 00:12 77 16 100 Mechanical Ventilator 35 07/07/18 00:00 Mechanical Ventilator 07/07/18 00:00 83 07/07/18 00:00 35 07/07/18 00:00 98.3 90 22 143/58 (86) 98 07/06/18 23:40 78 18 35 07/06/18 23:39 78 18 99 Mechanical Ventilator 35 07/06/18 20:56 85 19 35 07/06/18 20:17 94 17 100 Mechanical Ventilator 35 07/06/18 20:02 88 25 98 Mechanical Ventilator 35 07/06/18 20:00 98.3 94 22 144/56 (85) 98 07/06/18 20:00 90 07/06/18 20:00 88 22 35 07/06/18 20:00 35 07/06/18 20:00 Mechanical Ventilator 07/06/18 17:05 97 27 35 07/06/18 16:00 Mechanical Ventilator 07/06/18 16:00 99.3 99 27 142/70 (94) 98 07/06/18 16:00 88 07/06/18 16:00 35 07/06/18 15:30 91 24 100 Mechanical Ventilator 35 07/06/18 15:14 87 16 35 07/06/18 15:11 88 16 100 Mechanical Ventilator 35 07/06/18 13:08 62 25 35 Intake and Output 07/06/18 07/07/18 19:00 07:00 Intake Total 1410 ml 1320 ml Output Total 1100 ml 500 ml Balance 310 ml 820 ml Free Water 150 ml 60 ml IV Total 600 ml 600 ml Tube Feeding 660 ml 660 ml Output Urine Total 1000 ml 500 ml Stool Total 100 ml Height (Feet): 5 Height (Inches): 4.00 Weight (Pounds): 120 General Appearance: alert, confused, moderate distress, agitated Liz Lo MD Jul 07, 2018 12:13
--- NOTE | 2018-07-07 14:42 | Infectious Diseases Prog Note ---
Assessment/Plan Assessment/Plan 87 yo feamle with PMHx of COPD, HTN, and A.fib sent to the ED from [place] [facility] for SOB. Sepsis;improving - Likely PNA 06/21 CXR: Slightly increased right lung opacity, suspect increasing pleural fluid.Increased retrocardiac consolidation 06/17 CXR: Increasing right lung opacity, likely representing decreasing pleural fluid but may also represent increasing parenchymal consolidation 06/15 CXR: Increasing opacification right hemithorax, likely reflecting increasing pleural fluid but may also reflect increasing pulmonary parenchymal consolidation 06/14 CXR: Diffuse right lung hazy opacity appears similar to the prior exam. 06/12 CXR: : Hazy opacification of the right hemithorax, likely reflecting pleural fluid, is unchanged. 05/28/18 CXR with atalectasis vs consolidation in the right side. 06/01/18 CXR - Extensive right hemithorax opacification UA (-) sputum cx 06/15: MRSA (likely a colonizer at this point), ESBL E.coli Sputum Cx 05/28/18 - MRSA (Inf Neg) Urine legionella (-) Acute respiratory failure s/p intubation 06/16 -s/p trach 06/23 R>L pleural effusion; exudate -FLuid pH 8, protein 3.5 (serum 6.5), LDH 111 (serum 203: cx NTD -06/28 SP Successful ultrasound-guided R thoracentesis, yielding 600 milliliters of fluid Cdiff colitis Diarrhea persists -06/19 Cdif toxin a/b + R lung collapse: -06/16 CXR: Complete opacification of the right hemithorax. Probably due to complete atelectasis of the right lung, with evidence of abrupt occlusion of the right mainstem bronchus. Given findings on prior chest radiographs, there is probably significant component of pleural effusion as well. Positive blood Cx - Likely contaminant BCx 05/28/18 - CoNS BCX 05/30/18 - NGTD Leukocytosis , recurrent mild- SP Fever, SP COPD CAD A. fib s/p PEG 06/24 PLAN -Continue Fidaxomicin 200mg bid #3/ -3/ SP PO Vancomycin #17 -06/26 SP Ertapenem #6 -06/20 SP Meropenem #5 -06/17 SP IV Vancomycin #21 -06/16 SP Cefepime #20 - Monitor CBC and Temps Discussed with RN Subjective Allergies: Coded Allergies: Mushroom (Verified Allergy, Severe, 05/28/18) MORPHINE (Unverified Allergy, Intermediate, Itching, 01/04/15) PENICILLINS (Unverified Allergy, Intermediate, Hives, 06/25/18) Tolerates cephalosporins and carbapenems CELECOXIB (Verified Allergy, Mild, 01/15/09) Subjective afebrile no leukocytosis Objective Vital Signs Last 24 Hour Vital Signs Date Time Temp Pulse Resp B/P (MAP) Pulse Ox O2 Delivery O2 Flow Rate FiO2 07/07/18 12:54 100 26 35 07/07/18 12:00 104 07/07/18 12:00 98.9 104 31 159/66 (97) 97 07/07/18 12:00 35 07/07/18 12:00 Mechanical Ventilator 07/07/18 11:16 107 28 35 07/07/18 11:16 105 33 97 Mechanical Ventilator 35 07/07/18 11:03 106 33 97 Mechanical Ventilator 35 07/07/18 09:18 94 149/79 07/07/18 09:08 93 28 35 07/07/18 09:08 97 07/07/18 08:00 96 07/07/18 08:00 35 07/07/18 08:00 Mechanical Ventilator 07/07/18 08:00 98.1 94 25 149/79 (102) 100 07/07/18 07:14 93 26 35 07/07/18 07:14 91 15 100 Mechanical Ventilator 35 07/07/18 07:02 97 20 98 Mechanical Ventilator 35 07/07/18 05:18 88 23 35 07/07/18 04:00 Mechanical Ventilator 07/07/18 04:00 98.0 94 22 133/75 (94) 98 07/07/18 04:00 35 07/07/18 04:00 94 07/07/18 03:24 93 23 99 Mechanical Ventilator 35 07/07/18 03:11 83 19 98 Mechanical Ventilator 35 07/07/18 03:08 82 18 35 07/07/18 03:07 83 19 Mechanical Ventilator 35 07/07/18 00:46 86 20 35 07/07/18 00:12 77 16 100 Mechanical Ventilator 35 07/07/18 00:00 Mechanical Ventilator 07/07/18 00:00 83 07/07/18 00:00 35 07/07/18 00:00 98.3 90 22 143/58 (86) 98 07/06/18 23:40 78 18 35 07/06/18 23:39 78 18 99 Mechanical Ventilator 35 07/06/18 20:56 85 19 35 07/06/18 20:17 94 17 100 Mechanical Ventilator 35 07/06/18 20:02 88 25 98 Mechanical Ventilator 35 07/06/18 20:00 98.3 94 22 144/56 (85) 98 07/06/18 20:00 90 07/06/18 20:00 88 22 35 07/06/18 20:00 35 07/06/18 20:00 Mechanical Ventilator 07/06/18 17:05 97 27 35 07/06/18 16:00 Mechanical Ventilator 07/06/18 16:00 99.3 99 27 142/70 (94) 98 07/06/18 16:00 88 07/06/18 16:00 35 07/06/18 15:30 91 24 100 Mechanical Ventilator 35 07/06/18 15:14 87 16 35 07/06/18 15:11 88 16 100 Mechanical Ventilator 35 Height (Feet): 5 Height (Inches): 4.00 Weight (Pounds): 120 Objective General Appearance: no apparent distress, Neck: supple, trach in place Cardiovascular: normal rate Respiratory/Chest: decreased BS at bases Abdomen: normal bowel sounds, non tender, soft; Peg in place rectal tube in place Extremities: trace edema Current Medications Medications (Trade) Dose Ordered Sig/Ann Route PRN Reason Start Time Stop Time Status Last Admin Dose Admin Acetaminophen (Tylenol) 650 mg Q4H PRN ORAL Mild Pain/Temp > 100.5 06/26/18 15:30 07/16/18 19:18 06/27/18 17:06 Acetylcysteine (Mucomyst) 100 mg Q4HRT HHN 06/26/18 15:00 07/09/18 10:59 07/07/18 11:03 Albuterol/ Ipratropium (Albuterol/ Ipratropium) 3 ml Q4H PRN HHN Shortness of Breath 07/02/18 19:15 07/07/18 19:14 07/07/18 11:02 Amiodarone HCl (Cordarone) 200 mg DAILY@1800 GT 06/26/18 18:00 07/24/18 17:59 07/06/18 18:03 Amlodipine Besylate (Norvasc) 2.5 mg DAILY ORAL 06/27/18 09:00 07/25/18 08:59 07/07/18 09:18 Dextrose/Sodium Chloride 1,000 ml @ 50 mls/hr Q20H IV 07/01/18 08:00 07/31/18 07:59 07/07/18 04:00 Famotidine (Pepcid) 10 mg BEDTIME GT 07/07/18 21:00 08/06/18 20:59 Fidaxomicin (Dificid) 200 mg EVERY 12 HOURS ORAL 07/05/18 21:00 07/15/18 09:01 07/07/18 09:16 Furosemide (Lasix) 20 mg DAILY ORAL 07/05/18 10:15 08/04/18 10:14 07/07/18 09:18 Haloperidol Lactate (Haldol) 5 mg Q6H PRN IM Agitation 07/06/18 12:00 08/05/18 11:59 07/06/18 13:01 Magnesium Sulfate 100 ml @ 100 mls/hr Q1H IVPB 07/07/18 11:30 07/07/18 15:29 07/07/18 13:46 Metoprolol Tartrate (Lopressor) 5 mg Q6H PRN IVP HR > 125 06/26/18 18:00 07/16/18 17:59 Ondansetron HCl (Zofran) 4 mg Q6H PRN IVP Nausea & Vomiting 06/26/18 14:00 07/16/18 13:59 Potassium Chloride (K-Dur) 20 meq TWICE A DAY GT 07/05/18 09:00 08/04/18 08:59 07/07/18 09:16 Quetiapine Fumarate (SEROquel) 12.5 mg QHS ORAL 06/29/18 21:00 07/29/18 20:59 07/06/18 21:22 Natty Hernandes M.D. Jul 07, 2018 14:42
--- NOTE | 2018-07-07 15:09 | NUR ---
NURSE NOTES:WOUND CARE FOLLOW-UP NOTES:Pt presents with erythema with moisture intertrigo cleft of buttocks Sacrum is intact . Bilat heels soft but easily blanchable. No other skin concerns noted. All wound prevention protocols continued as ordered.
[2018-07-07 16:00] VITALS: BP 137/81
[2018-07-07] MEDS: Amiodarone 200mg tab GT SCH (17:15)
--- NOTE | 2018-07-07 19:19 | NUR ---
HAND-OFF: Report given to MARGY Joyner. Pt in stable condition.
--- NOTE | 2018-07-07 19:23 | NUR ---
NURSE NOTES: Report received from MARGY Paz. Observed pt lying on the bed, awake, confused. Addendum: 07/07/18 at 1927 by Ar Hwang RN SR with monitor and storage bin tender. Trach to vent shiley 8, AC 16, TD 350, FIO2 35%, PEEP 5, saturating at 99%. GT site intact and running Vital AF at 55cc/hr, no residual noted. Rectal tube intact and draining well. Purewick is intact and connected to the suction. IV on R FA 22G, intact and running D5 1/2 NS at 50cc/hr. Bed in the lowest position. Side rails up x3. Will continue to monitor.
--- NOTE | 2018-07-07 19:35 | NUR ---
RESPIRATORY THERAPY Mucomyst not given due to Duoneb was DC at 07/07. MARGY Milligan notified and asked to renew order of duoneb.
[2018-07-07 20:00] VITALS: BP 139/64
--- NOTE | 2018-07-07 20:34 | General Progress Note ---
Assessment/Plan Status: progressing Assessment/Plan This is an 87-year-old female admitted with chronic obstructive pulmonary disease exacerbation, right lower lobe infiltrate/pneumonia with altered mental status and acute kidney injury. The patient will be admitted to [facility] with the following medical problems. 1. Chronic obstructive pulmonary disease exacerbation and pneumonia. The patient has been seen by Pulmonary. Infectious Disease has been consulted, pancultured. IV antibiotics per ID. Continue with BiPAP and suction p.r.n. Transition to Venturi-mask when stable. 2. Acute kidney injury. We will monitor I's and O's, gentle intravenous fluids. Repeat a BMP in a.m. Consider Nephrology consult. 3. History of chronic atrial fibrillation. Continue with amiodarone. The patient is in sinus rhythm at this time. 4. History of hypertension. Continue with amlodipine and hold for systolic blood pressure less than 110. 5. Altered mental status, most likely from above conditions. We will keep n.p.o. except for medications and start IV fluids. 6. DVT prophylaxis with heparin subcutaneous and SCDs. 7. The patient is Full Code per policy. We will discuss with the family. 8. hypokalmia 9. Anemia 10. CHf acute on chronic 11. leucocytosis 12. ARF? ATN 13. C dif positive 14. hyperkalemia 15. pleural effusion 16. S/p Tracheostomy 06/22/18 17, hypernatremia Plan: - continue respiratory support - aggressive pulmonary suction - HD on hold as patient putting out better urine and createnine is improving - antibiotics per ID - on oral vanco for one more day - am labs - weaning off vent per pulmonary - Gi prophylaxis with protonix iv 40 mg daily - s/p Kayexalate - norvasc added for better BP cotrol - s/p PEG discussed with nurse Contact isolation for C dif now in [facility] - transfuse one unit of PRBC on 06-28-18 - weaning trial - am labs - continue 10 day course of Difficid - agree with Lasix will dc to LTAC based on bed available [facility] if possible if not possible patient to go to [facility] Subjective Date patient seen: Jul 07, 2018 ROS Limited/Unobtainable: Yes Allergies: Coded Allergies: Mushroom (Verified Allergy, Severe, 05/28/18) MORPHINE (Unverified Allergy, Intermediate, Itching, 01/04/15) PENICILLINS (Unverified Allergy, Intermediate, Hives, 06/25/18) Tolerates cephalosporins and carbapenems CELECOXIB (Verified Allergy, Mild, 01/15/09) Subjective patient was agitated and restraints ordered, on Difficid now as C dif not responding to oral Vanco Objective Last 24 Hour Vital Signs Date Time Temp Pulse Resp B/P (MAP) Pulse Ox O2 Delivery O2 Flow Rate FiO2 07/07/18 20:00 98.5 92 24 139/64 (89) 99 07/07/18 19:35 Mechanical Ventilator 35 07/07/18 19:35 91 20 35 07/07/18 19:35 Mechanical Ventilator 35 07/07/18 17:10 109 21 35 07/07/18 16:00 98.9 115 35 137/81 (99) 98 07/07/18 16:00 35 07/07/18 16:00 Mechanical Ventilator 07/07/18 16:00 101 07/07/18 15:13 102 24 100 Mechanical Ventilator 35 07/07/18 15:01 99 22 98 Mechanical Ventilator 35 07/07/18 15:00 99 22 35 07/07/18 12:54 100 26 35 07/07/18 12:00 104 07/07/18 12:00 98.9 104 31 159/66 (97) 97 07/07/18 12:00 35 07/07/18 12:00 Mechanical Ventilator 07/07/18 11:16 107 28 35 07/07/18 11:16 105 33 97 Mechanical Ventilator 35 07/07/18 11:03 106 33 97 Mechanical Ventilator 35 07/07/18 09:18 94 149/79 07/07/18 09:08 93 28 35 07/07/18 09:08 97 07/07/18 08:00 96 07/07/18 08:00 35 07/07/18 08:00 Mechanical Ventilator 07/07/18 08:00 98.1 94 25 149/79 (102) 100 07/07/18 07:14 93 26 35 07/07/18 07:14 91 15 100 Mechanical Ventilator 35 07/07/18 07:02 97 20 98 Mechanical Ventilator 35 07/07/18 05:18 88 23 35 07/07/18 04:00 Mechanical Ventilator 07/07/18 04:00 98.0 94 22 133/75 (94) 98 07/07/18 04:00 35 07/07/18 04:00 94 07/07/18 03:24 93 23 99 Mechanical Ventilator 35 07/07/18 03:11 83 19 98 Mechanical Ventilator 35 07/07/18 03:08 82 18 35 07/07/18 03:07 83 19 Mechanical Ventilator 35 07/07/18 00:46 86 20 35 07/07/18 00:12 77 16 100 Mechanical Ventilator 35 07/07/18 00:00 Mechanical Ventilator 07/07/18 00:00 83 07/07/18 00:00 35 07/07/18 00:00 98.3 90 22 143/58 (86) 98 07/06/18 23:40 78 18 35 07/06/18 23:39 78 18 99 Mechanical Ventilator 35 07/06/18 20:56 85 19 35 Intake and Output 07/06/18 07/07/18 18:59 06:59 Intake Total 1410 ml 1320 ml Output Total 1100 ml Balance 310 ml 1320 ml Free Water 150 ml 60 ml IV Total 600 ml 600 ml Tube Feeding 660 ml 660 ml Output Urine Total 1000 ml Stool Total 100 ml Height (Feet): 5 Height (Inches): 4.00 Weight (Pounds): 120 General Appearance: no apparent distress, alert EENT: PERRL/EOMI, pharynx normal Neck: non-tender, supple Cardiovascular: normal rate, regular rhythm, no gallop/murmur, no JVD Respiratory/Chest: decreased breath sounds Abdomen: non tender, soft, no mass Extremities: non-tender, normal inspection, no calf tenderness Edema: no edema noted Arm (L), no edema noted Arm (R), no edema noted Leg (L), no edema noted Leg (R), no edema noted Pedal (L), no edema noted Pedal (R), no edema noted Generalized Neurologic: alert Skin: warm/dry Lymphatic: normal anterior cervical (L), normal anterior cervical (R), normal posterior cervical (L), normal posterior cervical (R), normal submandibular (L) , normal submandibular (R), normal supraclavicular (L), normal supraclavicular ( R), normal axillary (L), normal axillary (R), normal inguinal (L), normal inguinal (R), normal other Berdjis,Peiman MD Jul 07, 2018 20:34
--- NOTE | 2018-07-07 23:04 | General Progress Note ---
Assessment/Plan Assessment/Plan Assessment - Resp failure - s/p PEG - C DIff diarrhea - COPD - CHF - PNA - Anemia Recommendations - Vent care - Elevated HOB - Monitor residuals - Pulmonary toilet - wean down acid suppression - Dificid Subjective Allergies: Coded Allergies: Mushroom (Verified Allergy, Severe, 05/28/18) MORPHINE (Unverified Allergy, Intermediate, Itching, 01/04/15) PENICILLINS (Unverified Allergy, Intermediate, Hives, 06/25/18) Tolerates cephalosporins and carbapenems CELECOXIB (Verified Allergy, Mild, 01/15/09) Subjective Seen in [facility] tolerating TF BM now pasty on Dificid Objective Last 24 Hour Vital Signs Date Time Temp Pulse Resp B/P (MAP) Pulse Ox O2 Delivery O2 Flow Rate FiO2 07/07/18 20:48 88 22 35 07/07/18 20:00 Mechanical Ventilator 07/07/18 20:00 98.5 92 24 139/64 (89) 99 07/07/18 20:00 35 07/07/18 20:00 90 07/07/18 19:35 Mechanical Ventilator 35 07/07/18 19:35 91 20 35 07/07/18 19:35 Mechanical Ventilator 35 07/07/18 17:10 109 21 35 07/07/18 16:00 98.9 115 35 137/81 (99) 98 07/07/18 16:00 35 07/07/18 16:00 Mechanical Ventilator 07/07/18 16:00 101 07/07/18 15:13 102 24 100 Mechanical Ventilator 35 07/07/18 15:01 99 22 98 Mechanical Ventilator 35 07/07/18 15:00 99 22 35 07/07/18 12:54 100 26 35 07/07/18 12:00 104 07/07/18 12:00 98.9 104 31 159/66 (97) 97 07/07/18 12:00 35 07/07/18 12:00 Mechanical Ventilator 07/07/18 11:16 107 28 35 07/07/18 11:16 105 33 97 Mechanical Ventilator 35 07/07/18 11:03 106 33 97 Mechanical Ventilator 35 07/07/18 09:18 94 149/79 07/07/18 09:08 93 28 35 07/07/18 09:08 97 07/07/18 08:00 96 07/07/18 08:00 35 07/07/18 08:00 Mechanical Ventilator 07/07/18 08:00 98.1 94 25 149/79 (102) 100 07/07/18 07:14 93 26 35 07/07/18 07:14 91 15 100 Mechanical Ventilator 35 07/07/18 07:02 97 20 98 Mechanical Ventilator 35 07/07/18 05:18 88 23 35 07/07/18 04:00 Mechanical Ventilator 07/07/18 04:00 98.0 94 22 133/75 (94) 98 07/07/18 04:00 35 07/07/18 04:00 94 07/07/18 03:24 93 23 99 Mechanical Ventilator 35 07/07/18 03:11 83 19 98 Mechanical Ventilator 35 07/07/18 03:08 82 18 35 07/07/18 03:07 83 19 Mechanical Ventilator 35 07/07/18 00:46 86 20 35 07/07/18 00:12 77 16 100 Mechanical Ventilator 35 07/07/18 00:00 Mechanical Ventilator 07/07/18 00:00 83 07/07/18 00:00 35 07/07/18 00:00 98.3 90 22 143/58 (86) 98 07/06/18 23:40 78 18 35 07/06/18 23:39 78 18 99 Mechanical Ventilator 35 Intake and Output 07/06/18 07/07/18 18:59 06:59 Intake Total 1410 ml 1320 ml Output Total 1100 ml Balance 310 ml 1320 ml Free Water 150 ml 60 ml IV Total 600 ml 600 ml Tube Feeding 660 ml 660 ml Output Urine Total 1000 ml Stool Total 100 ml Height (Feet): 5 Height (Inches): 4.00 Weight (Pounds): 120 Objective Elderly WW NCAT, (+) NGT, (+)ETT Supple CTA RRR Soft, NT, ND No edema restrained Panchito Rahman MD Jul 07, 2018 23:04
[2018-07-08] VITALS (7 sets, daily range): BP systolic 128–175; BP diastolic 59–93
[2018-07-08] MEDS: Albuterol/Ipratropium 3ml neb HHN PRN ×2 (03:36→08:25)
--- NOTE | 2018-07-08 03:49 | NUR ---
NURSE NOTES: Pt appears to be agitated and keeps trying to get out of bed. Reposition and oral care done. Will continue to monitor.
[2018-07-08 05:37] LABS: BASOPHILS % (AUTO) 1.5 % (0.0-2.0); EOSINOPHILS % (AUTO) 10.8 % (0.0-3.0); HEMOGLOBIN 8.3 G/DL (12.0-16.0); LYMPHOCYTES % (AUTO) 26.3 % (20.0-45.0); MEAN CORPUSCULAR VOLUME 74 FL (80-99); MONOCYTES % (AUTO) 8.7 % (1.0-10.0); NEUTROPHILS % (AUTO) 52.8 % (45.0-75.0); PLATELET COUNT 251 K/UL (150-450); RED BLOOD COUNT 3.66 M/UL (4.20-5.40); RED CELL DISTRIBUTION WIDTH 16.8 % (11.6-14.8); WHITE BLOOD COUNT 8.4 K/UL (4.8-10.8)
[2018-07-08 06:12] LABS: ANION GAP 5 mmol/L (5-15); BLOOD UREA NITROGEN 47 mg/dL (7-18); CALCIUM 8.9 MG/DL (8.5-10.1); CARBON DIOXIDE 35 MMOL/L (21-32); CHLORIDE 100 MMOL/L (98-107); CREATININE 1.3 MG/DL (0.55-1.30); POTASSIUM 4.5 MMOL/L (3.5-5.1); SODIUM 140 MMOL/L (136-145)
--- NOTE | 2018-07-08 07:21 | NUR ---
NURSE NOTES: Report given to MARGY Paz. No acute distress noted at this time.
--- NOTE | 2018-07-08 07:50 | NUR ---
NURSE NOTES: Report received from MARGY Joyner. Observed patient in bed. Awake and able to follow command. Tach to vent with previous setting. Patient is tolerated well with vent setting with no distress noted. Gt site intact with ongoing feeding. No residual noted. HOB elevated. Rectal tube intact and draining well. IV site intact with IVF running at prescribed rate. Bed in lowest position. Call light within reach. Will continue to monitor.
--- NOTE | 2018-07-08 08:25 | NUR ---
RESPIRATORY NOTE: Received pt on ordered vent settings. Pt tracheostomy tube is patent and secured. Sx'd pt prn. Vent alarms are on and audible. Vent is plugged into red outlet. Will monitor pt progress.
--- NOTE | 2018-07-08 09:44 | Pulmonology Progress Note ---
Assessment/Plan Assessment/Plan Problem List: 1. Acute on chronic hypercapnic respiratory failure -intubated 06/02; extubated 06/10 -reintubated 06/17 -trach 06/23 shiley 8 2. R lung collapse, mucous plugging - resolved 3. Pulmonary edema 4. chronic obstructive asthma 5. Pneumonia 6. Hx afib 7. MRSA pna, recurrent fever and increased leukocytosis 8. ESBL E.coli pna 9. C.diff colitis 10. Pleural effusions -06/28 R thoracentesis; 600 cc Plan: -cont mechanical ventilatory support -SIMV trials for weaning with PS 12 -consider downsizing trach to 6 -pulmonary hygiene with duonebs/suctioning q4 -monitor volumes, has effusions and edema, lasix 20 mg PO daily -repeat CXR -monitor renal function, improved -abx per ID -PEG done -seroquel 12.5 mg qhs d/c planning LTACH vs subacute Case d/w RN Subjective ROS Limited/Unobtainable: Yes Interval Events: simv 12 for 4 hours yesterday. Restless. Allergies: Coded Allergies: Mushroom (Verified Allergy, Severe, 05/28/18) MORPHINE (Unverified Allergy, Intermediate, Itching, 01/04/15) PENICILLINS (Unverified Allergy, Intermediate, Hives, 06/25/18) Tolerates cephalosporins and carbapenems CELECOXIB (Verified Allergy, Mild, 01/15/09) Objective Last 24 Hour Vital Signs Date Time Temp Pulse Resp B/P (MAP) Pulse Ox O2 Delivery O2 Flow Rate FiO2 07/08/18 08:36 88 18 100 Mechanical Ventilator 35 07/08/18 08:31 94 142/93 07/08/18 08:25 90 20 100 Mechanical Ventilator 35 07/08/18 08:25 80 22 35 07/08/18 08:00 97.9 94 18 142/93 (109) 100 07/08/18 05:08 86 27 35 07/08/18 04:00 35 07/08/18 04:00 Mechanical Ventilator 07/08/18 04:00 98.3 83 21 132/63 (86) 97 07/08/18 04:00 85 07/08/18 03:47 91 18 100 Mechanical Ventilator 35 07/08/18 03:37 85 20 35 07/08/18 03:36 86 20 100 Mechanical Ventilator 35 07/08/18 01:23 79 17 35 07/08/18 00:00 78 07/08/18 00:00 Mechanical Ventilator 07/08/18 00:00 35 07/08/18 00:00 98.1 79 16 135/59 (84) 98 07/07/18 23:52 77 16 100 Mechanical Ventilator 35 07/07/18 23:42 79 16 100 Mechanical Ventilator 35 07/07/18 23:42 77 16 35 07/07/18 20:48 88 22 35 07/07/18 20:00 Mechanical Ventilator 07/07/18 20:00 98.5 92 24 139/64 (89) 99 07/07/18 20:00 35 07/07/18 20:00 90 07/07/18 19:35 Mechanical Ventilator 35 07/07/18 19:35 91 20 35 07/07/18 19:35 Mechanical Ventilator 35 07/07/18 17:10 109 21 35 07/07/18 16:00 98.9 115 35 137/81 (99) 98 07/07/18 16:00 35 07/07/18 16:00 Mechanical Ventilator 07/07/18 16:00 101 07/07/18 15:13 102 24 100 Mechanical Ventilator 35 07/07/18 15:01 99 22 98 Mechanical Ventilator 35 07/07/18 15:00 99 22 35 07/07/18 12:54 100 26 35 07/07/18 12:00 104 07/07/18 12:00 98.9 104 31 159/66 (97) 97 07/07/18 12:00 35 07/07/18 12:00 Mechanical Ventilator 07/07/18 11:16 107 28 35 07/07/18 11:16 105 33 97 Mechanical Ventilator 35 07/07/18 11:03 106 33 97 Mechanical Ventilator 35 Intake and Output 07/07/18 07/08/18 19:00 07:00 Intake Total 1735 ml 1420 ml Output Total 1655 ml 575 ml Balance 80 ml 845 ml Free Water 300 ml 160 ml IV Total 775 ml 600 ml Tube Feeding 660 ml 660 ml Output Urine Total 1550 ml 550 ml Stool Total 105 ml 25 ml General Appearance: no acute distress HEENT: normocephalic, atraumatic Respiratory/Chest: other - coarse breath sounds Cardiovascular: regular rhythm Abdomen: soft, non tender, no organomegaly Extremities: no edema Laboratory Tests 3/8/19 02:50: White Blood Count 8.4, Red Blood Count 3.66L, Hemoglobin 8.3L, Hematocrit 27.0L , Mean Corpuscular Volume 74L, Mean Corpuscular Hemoglobin 22.7L, Mean Corpuscular Hemoglobin Concent 30.9L, Red Cell Distribution Width 16.8H, Platelet Count 251, Mean Platelet Volume 6.8, Neutrophils (%) (Auto) 52.8, Lymphocytes (%) (Auto) 26.3, Monocytes (%) (Auto) 8.7, Eosinophils (%) (Auto) 10.8H, Basophils (%) (Auto) 1.5, Sodium Level 140, Potassium Level 4.5, Chloride Level 100, Carbon Dioxide Level 35H, Anion Gap 5, Blood Urea Nitrogen 47H, Creatinine 1.3, Estimat Glomerular Filtration Rate , Glucose Level 107H, Calcium Level 8.9 Current Medications Medications (Trade) Dose Ordered Sig/Ann Route PRN Reason Start Time Stop Time Status Last Admin Dose Admin Acetaminophen (Tylenol) 650 mg Q4H PRN ORAL Mild Pain/Temp > 100.5 06/26/18 15:30 07/16/18 19:18 06/27/18 17:06 Acetylcysteine (Mucomyst) 100 mg Q4HRT HHN 06/26/18 15:00 07/09/18 10:59 07/08/18 08:25 Albuterol/ Ipratropium (Albuterol/ Ipratropium) 3 ml Q4HRT PRN HHN Shortness of Breath 07/07/18 20:30 07/12/18 20:29 07/08/18 08:25 Amiodarone HCl (Cordarone) 200 mg DAILY@1800 GT 06/26/18 18:00 07/24/18 17:59 07/07/18 17:15 Amlodipine Besylate (Norvasc) 2.5 mg DAILY ORAL 06/27/18 09:00 07/25/18 08:59 07/08/18 08:31 Dextrose/Sodium Chloride 1,000 ml @ 50 mls/hr Q20H IV 07/01/18 08:00 07/31/18 07:59 07/07/18 23:30 Famotidine (Pepcid) 10 mg BEDTIME GT 07/07/18 21:00 08/06/18 20:59 07/07/18 20:45 Fidaxomicin (Dificid) 200 mg EVERY 12 HOURS ORAL 07/05/18 21:00 07/15/18 09:01 07/08/18 08:32 Furosemide (Lasix) 20 mg DAILY ORAL 07/05/18 10:15 08/04/18 10:14 07/08/18 08:30 Haloperidol Lactate (Haldol) 5 mg Q6H PRN IM Agitation 07/06/18 12:00 08/05/18 11:59 07/06/18 13:01 Metoprolol Tartrate (Lopressor) 5 mg Q6H PRN IVP HR > 125 06/26/18 18:00 07/16/18 17:59 Ondansetron HCl (Zofran) 4 mg Q6H PRN IVP Nausea & Vomiting 06/26/18 14:00 07/16/18 13:59 Potassium Chloride (K-Dur) 20 meq TWICE A DAY GT 07/05/18 09:00 08/04/18 08:59 07/08/18 08:31 Quetiapine Fumarate (SEROquel) 12.5 mg QHS ORAL 06/29/18 21:00 07/29/18 20:59 07/07/18 20:44 Varinder De Souza MD Jul 08, 2018 09:44
--- NOTE | 2018-07-08 10:05 | NUR ---
Social Service Note Message left for Karen at [facility] [phone] regarding bed availability. Discussed with Dr. De Souza. Will follow up.
--- NOTE | 2018-07-08 11:20 | NUR ---
RADIOLOGY DEPT CHEST X-RAY DONE.-P.DYE
--- NOTE | 2018-07-08 12:00 | NUR ---
RD ASSESSMENT & RECOMMENDATIONS SEE CARE ACTIVITY FOR COMPLETE ASSESSMENT DAILY ESTIMATED NEEDS: Needs based on ARF, Critical care/ 54kg 22-28 kcals/kg 9275-8929 total kcals 1.2-1.5 g protein/kg 65-81 g total protein 25-30 mL/kg 3656-1976 total fluid mLs NUTRITION DIAGNOSIS: * Swallowing difficulty R/T dysphagia, respiratory status as evidenced by s/p trach and PEG placement, on GT feeding. * Altered nutrition related lab values R/T clinical condition, prediabetes, ARF, volume deficit? as evidenced by elev Na (150 trend up, elev BUN (85 trend down), elev creat (0.9->5.0-> 1.9 trend back down), A1C=5.9, elev BG of 201 upon adm -> 117 108, elev K (6.0*-> now wnl), elev phos (5.9-> now nwl->5.0). CURRENT TF: Now VITAL 1.2 @55 ENTERAL NUTRITION RECOMMENDATIONS: LOWER VITAL-> 45ml/hr x24 hrs to provide 1080ml, 1296 kcal, 81g prot, 876ml free H2O * REC TO LOWER CURRENT TF GOAL OF 55ML/HR PROVIDES AN EXCESS OF 122% PROT NEEDS * goal of 45ml/hr x24 hrs, meets 100% est needs * HOB over 30 degrees/ water flush per MD ADDITIONAL RECOMMENDATIONS: * CALIBRATED bedscale wt for accurate CBW- w/ added SPR mattress+ pump * Monitor renal fxn, need to continue renal TF formula - renal fxn improving at this time * Monitor lytes closely * Monitor BGs, need for SSI/hypoglycemic agents . .
--- NOTE | 2018-07-08 12:18 | Diagnostic Imaging Report ---
Indication: Dyspnea Technique: One view of the chest Comparison: 07/04/2018 Findings: Cranium is less heavily exposed. Tracheostomy remains. Bilateral interstitial edema persists, stable or perhaps slightly worse allowing for differences in degree of exposure.. Left hemidiaphragm is better visualized, may indicate decreasing pleural fluid Impression: Interstitial edema, stable or slightly increased from prior study 07/04/2018 Possibly improving left pleural effusion
--- NOTE | 2018-07-08 13:05 | Nephrology Progress Note ---
Assessment/Plan Problem List: (1) Acute renal failure Assessment: Cr lowering (2) Anuria (3) Acute respiratory failure Assessment: on vent (4) Dementia (5) Afib Assessment Cr lowering Urine out put rising Cr lowering other conditions: (1) Acute respiratory failure (2) Aspiration pneumonia (3) Acute encephalopathy (4) Pleural effusion (5) COPD (chronic obstructive pulmonary disease) (6) CAD (coronary artery disease) (7) Dementia Plan Labs OK Now trached and Pegged Cr lowering- Urine out put higher monitor vanco level K and Phos and Mag as needed Anemia porter Adjust BP meds fu Lytes Gastric support per orders Subjective ROS Limited/Unobtainable: Yes Objective Objective Last 24 Hour Vital Signs Date Time Temp Pulse Resp B/P (MAP) Pulse Ox O2 Delivery O2 Flow Rate FiO2 07/08/18 12:00 Mechanical Ventilator 07/08/18 12:00 97.4 87 18 145/62 (89) 99 07/08/18 12:00 35 07/08/18 10:45 88 27 35 07/08/18 10:45 100 07/08/18 08:36 88 18 100 Mechanical Ventilator 35 07/08/18 08:31 94 142/93 07/08/18 08:25 90 20 100 Mechanical Ventilator 35 07/08/18 08:25 80 22 35 07/08/18 08:00 Mechanical Ventilator 07/08/18 08:00 98 07/08/18 08:00 35 07/08/18 08:00 97.9 94 18 142/93 (109) 100 07/08/18 05:08 86 27 35 07/08/18 04:00 35 07/08/18 04:00 Mechanical Ventilator 07/08/18 04:00 98.3 83 21 132/63 (86) 97 07/08/18 04:00 85 07/08/18 03:47 91 18 100 Mechanical Ventilator 35 07/08/18 03:37 85 20 35 07/08/18 03:36 86 20 100 Mechanical Ventilator 35 07/08/18 01:23 79 17 35 07/08/18 00:00 78 07/08/18 00:00 Mechanical Ventilator 07/08/18 00:00 35 07/08/18 00:00 98.1 79 16 135/59 (84) 98 07/07/18 23:52 77 16 100 Mechanical Ventilator 35 07/07/18 23:42 79 16 100 Mechanical Ventilator 35 07/07/18 23:42 77 16 35 07/07/18 20:48 88 22 35 07/07/18 20:00 Mechanical Ventilator 07/07/18 20:00 98.5 92 24 139/64 (89) 99 07/07/18 20:00 35 07/07/18 20:00 90 07/07/18 19:35 Mechanical Ventilator 35 07/07/18 19:35 91 20 35 07/07/18 19:35 Mechanical Ventilator 35 07/07/18 17:10 109 21 35 07/07/18 16:00 98.9 115 35 137/81 (99) 98 07/07/18 16:00 35 07/07/18 16:00 Mechanical Ventilator 07/07/18 16:00 101 07/07/18 15:13 102 24 100 Mechanical Ventilator 35 07/07/18 15:01 99 22 98 Mechanical Ventilator 35 07/07/18 15:00 99 22 35 Intake and Output 07/07/18 07/08/18 19:00 07:00 Intake Total 1735 ml 1420 ml Output Total 1655 ml 575 ml Balance 80 ml 845 ml Free Water 300 ml 160 ml IV Total 775 ml 600 ml Tube Feeding 660 ml 660 ml Output Urine Total 1550 ml 550 ml Stool Total 105 ml 25 ml Laboratory Tests 07/08/18 02:50: White Blood Count 8.4, Red Blood Count 3.66L, Hemoglobin 8.3L, Hematocrit 27.0L , Mean Corpuscular Volume 74L, Mean Corpuscular Hemoglobin 22.7L, Mean Corpuscular Hemoglobin Concent 30.9L, Red Cell Distribution Width 16.8H, Platelet Count 251, Mean Platelet Volume 6.8, Neutrophils (%) (Auto) 52.8, Lymphocytes (%) (Auto) 26.3, Monocytes (%) (Auto) 8.7, Eosinophils (%) (Auto) 10.8H, Basophils (%) (Auto) 1.5, Sodium Level 140, Potassium Level 4.5, Chloride Level 100, Carbon Dioxide Level 35H, Anion Gap 5, Blood Urea Nitrogen 47H, Creatinine 1.3, Estimat Glomerular Filtration Rate , Glucose Level 107H, Calcium Level 8.9 Height (Feet): 5 Height (Inches): 4.00 Weight (Pounds): 120 General Appearance: no apparent distress Neck: other - trach Cardiovascular: tachycardia Respiratory/Chest: decreased breath sounds Objective no change Kendrick Jimenez MD Jul 08, 2018 13:05
--- NOTE | 2018-07-08 14:41 | General Progress Note ---
Assessment/Plan Assessment/Plan Assessment - Resp failure - s/p PEG - C DIff diarrhea - failed vanco - COPD - CHF - PNA - Anemia Recommendations - Vent care - Elevated HOB - Monitor residuals - Pulmonary toilet - wean down acid suppression - Dificid Subjective Allergies: Coded Allergies: Mushroom (Verified Allergy, Severe, 05/28/18) MORPHINE (Unverified Allergy, Intermediate, Itching, 01/04/15) PENICILLINS (Unverified Allergy, Intermediate, Hives, 06/25/18) Tolerates cephalosporins and carbapenems CELECOXIB (Verified Allergy, Mild, 01/15/09) Subjective Seen in [place] tolerating TF BM still loose, per RN still needs rectal tube on Dificid Objective Last 24 Hour Vital Signs Date Time Temp Pulse Resp B/P (MAP) Pulse Ox O2 Delivery O2 Flow Rate FiO2 07/08/18 13:12 94 24 35 07/08/18 12:00 Mechanical Ventilator 07/08/18 12:00 97.4 87 18 145/62 (89) 99 07/08/18 12:00 35 07/08/18 12:00 83 07/08/18 10:45 88 27 35 07/08/18 10:45 100 07/08/18 08:36 88 18 100 Mechanical Ventilator 35 07/08/18 08:31 94 142/93 07/08/18 08:25 90 20 100 Mechanical Ventilator 35 07/08/18 08:25 80 22 35 07/08/18 08:00 Mechanical Ventilator 07/08/18 08:00 98 07/08/18 08:00 35 07/08/18 08:00 97.9 94 18 142/93 (109) 100 07/08/18 05:08 86 27 35 07/08/18 04:00 35 07/08/18 04:00 Mechanical Ventilator 07/08/18 04:00 98.3 83 21 132/63 (86) 97 07/08/18 04:00 85 07/08/18 03:47 91 18 100 Mechanical Ventilator 35 07/08/18 03:37 85 20 35 07/08/18 03:36 86 20 100 Mechanical Ventilator 35 07/08/18 01:23 79 17 35 07/08/18 00:00 78 07/08/18 00:00 Mechanical Ventilator 07/08/18 00:00 35 07/08/18 00:00 98.1 79 16 135/59 (84) 98 07/07/18 23:52 77 16 100 Mechanical Ventilator 35 07/07/18 23:42 79 16 100 Mechanical Ventilator 35 07/07/18 23:42 77 16 35 07/07/18 20:48 88 22 35 07/07/18 20:00 Mechanical Ventilator 07/07/18 20:00 98.5 92 24 139/64 (89) 99 07/07/18 20:00 35 07/07/18 20:00 90 07/07/18 19:35 Mechanical Ventilator 35 07/07/18 19:35 91 20 35 07/07/18 19:35 Mechanical Ventilator 35 07/07/18 17:10 109 21 35 07/07/18 16:00 98.9 115 35 137/81 (99) 98 07/07/18 16:00 35 07/07/18 16:00 Mechanical Ventilator 07/07/18 16:00 101 07/07/18 15:13 102 24 100 Mechanical Ventilator 35 07/07/18 15:01 99 22 98 Mechanical Ventilator 35 07/07/18 15:00 99 22 35 Intake and Output 07/07/18 07/08/18 19:00 07:00 Intake Total 1735 ml 1420 ml Output Total 1655 ml 575 ml Balance 80 ml 845 ml Free Water 300 ml 160 ml IV Total 775 ml 600 ml Tube Feeding 660 ml 660 ml Output Urine Total 1550 ml 550 ml Stool Total 105 ml 25 ml Laboratory Tests 07/08/18 02:50: White Blood Count 8.4, Red Blood Count 3.66L, Hemoglobin 8.3L, Hematocrit 27.0L , Mean Corpuscular Volume 74L, Mean Corpuscular Hemoglobin 22.7L, Mean Corpuscular Hemoglobin Concent 30.9L, Red Cell Distribution Width 16.8H, Platelet Count 251, Mean Platelet Volume 6.8, Neutrophils (%) (Auto) 52.8, Lymphocytes (%) (Auto) 26.3, Monocytes (%) (Auto) 8.7, Eosinophils (%) (Auto) 10.8H, Basophils (%) (Auto) 1.5, Sodium Level 140, Potassium Level 4.5, Chloride Level 100, Carbon Dioxide Level 35H, Anion Gap 5, Blood Urea Nitrogen 47H, Creatinine 1.3, Estimat Glomerular Filtration Rate , Glucose Level 107H, Calcium Level 8.9 Height (Feet): 5 Height (Inches): 4.00 Weight (Pounds): 120 Objective Elderly WW NCAT, (+) NGT, (+)ETT Supple CTA RRR Soft, NT, ND No edema restrained Panchito Rahman MD Jul 08, 2018 14:41
--- NOTE | 2018-07-08 15:08 | General Progress Note ---
Assessment/Plan Problem List: (1) encephalopathy due to toxin (2) Dementia ICD Codes: F03.90 - Unspecified dementia without behavioral disturbance SNOMED: 40571010 Assessment/Plan Haldol Im on board cont restraints. dw nurse recommend palliative care Subjective Allergies: Coded Allergies: Mushroom (Verified Allergy, Severe, 05/28/18) MORPHINE (Unverified Allergy, Intermediate, Itching, 01/04/15) PENICILLINS (Unverified Allergy, Intermediate, Hives, 06/25/18) Tolerates cephalosporins and carbapenems CELECOXIB (Verified Allergy, Mild, 01/15/09) Subjective confused less agitated the pt stated she wants to go and pointing to up. Objective Last 24 Hour Vital Signs Date Time Temp Pulse Resp B/P (MAP) Pulse Ox O2 Delivery O2 Flow Rate FiO2 07/08/18 13:12 94 24 35 07/08/18 12:00 Mechanical Ventilator 07/08/18 12:00 97.4 87 18 145/62 (89) 99 07/08/18 12:00 35 07/08/18 12:00 83 07/08/18 10:45 88 27 35 07/08/18 10:45 100 07/08/18 08:36 88 18 100 Mechanical Ventilator 35 07/08/18 08:31 94 142/93 07/08/18 08:25 90 20 100 Mechanical Ventilator 35 07/08/18 08:25 80 22 35 07/08/18 08:00 Mechanical Ventilator 07/08/18 08:00 98 07/08/18 08:00 35 07/08/18 08:00 97.9 94 18 142/93 (109) 100 07/08/18 05:08 86 27 35 07/08/18 04:00 35 07/08/18 04:00 Mechanical Ventilator 07/08/18 04:00 98.3 83 21 132/63 (86) 97 07/08/18 04:00 85 07/08/18 03:47 91 18 100 Mechanical Ventilator 35 07/08/18 03:37 85 20 35 07/08/18 03:36 86 20 100 Mechanical Ventilator 35 07/08/18 01:23 79 17 35 07/08/18 00:00 78 07/08/18 00:00 Mechanical Ventilator 07/08/18 00:00 35 07/08/18 00:00 98.1 79 16 135/59 (84) 98 07/07/18 23:52 77 16 100 Mechanical Ventilator 35 07/07/18 23:42 79 16 100 Mechanical Ventilator 35 07/07/18 23:42 77 16 35 07/07/18 20:48 88 22 35 07/07/18 20:00 Mechanical Ventilator 07/07/18 20:00 98.5 92 24 139/64 (89) 99 07/07/18 20:00 35 07/07/18 20:00 90 07/07/18 19:35 Mechanical Ventilator 35 07/07/18 19:35 91 20 35 07/07/18 19:35 Mechanical Ventilator 35 07/07/18 17:10 109 21 35 07/07/18 16:00 98.9 115 35 137/81 (99) 98 07/07/18 16:00 35 07/07/18 16:00 Mechanical Ventilator 07/07/18 16:00 101 07/07/18 15:13 102 24 100 Mechanical Ventilator 35 Intake and Output 07/07/18 07/08/18 19:00 07:00 Intake Total 1735 ml 1420 ml Output Total 1655 ml 575 ml Balance 80 ml 845 ml Free Water 300 ml 160 ml IV Total 775 ml 600 ml Tube Feeding 660 ml 660 ml Output Urine Total 1550 ml 550 ml Stool Total 105 ml 25 ml Laboratory Tests 07/08/18 02:50: White Blood Count 8.4, Red Blood Count 3.66L, Hemoglobin 8.3L, Hematocrit 27.0L , Mean Corpuscular Volume 74L, Mean Corpuscular Hemoglobin 22.7L, Mean Corpuscular Hemoglobin Concent 30.9L, Red Cell Distribution Width 16.8H, Platelet Count 251, Mean Platelet Volume 6.8, Neutrophils (%) (Auto) 52.8, Lymphocytes (%) (Auto) 26.3, Monocytes (%) (Auto) 8.7, Eosinophils (%) (Auto) 10.8H, Basophils (%) (Auto) 1.5, Sodium Level 140, Potassium Level 4.5, Chloride Level 100, Carbon Dioxide Level 35H, Anion Gap 5, Blood Urea Nitrogen 47H, Creatinine 1.3, Estimat Glomerular Filtration Rate , Glucose Level 107H, Calcium Level 8.9 Height (Feet): 5 Height (Inches): 4.00 Weight (Pounds): 120 General Appearance: alert, confused, agitated Liz Lo MD Jul 08, 2018 15:08
--- NOTE | 2018-07-08 15:33 | Infectious Diseases Prog Note ---
Assessment/Plan Assessment/Plan 87 yo feamle with PMHx of COPD, HTN, and A.fib sent to the ED from her [facility] for SOB. Sepsis;improving - Likely PNA 06/21 CXR: Slightly increased right lung opacity, suspect increasing pleural fluid.Increased retrocardiac consolidation 06/17 CXR: Increasing right lung opacity, likely representing decreasing pleural fluid but may also represent increasing parenchymal consolidation 06/15 CXR: Increasing opacification right hemithorax, likely reflecting increasing pleural fluid but may also reflect increasing pulmonary parenchymal consolidation 06/14 CXR: Diffuse right lung hazy opacity appears similar to the prior exam. 06/12 CXR: : Hazy opacification of the right hemithorax, likely reflecting pleural fluid, is unchanged. 05/28/18 CXR with atalectasis vs consolidation in the right side. 06/01/18 CXR - Extensive right hemithorax opacification UA (-) sputum cx 06/15: MRSA (likely a colonizer at this point), ESBL E.coli Sputum Cx 05/28/18 - MRSA (Inf Neg) Urine legionella (-) Acute respiratory failure s/p intubation 06/16 -s/p trach 06/23 R>L pleural effusion; exudate -FLuid pH 8, protein 3.5 (serum 6.5), LDH 111 (serum 203: cx NTD -06/28 SP Successful ultrasound-guided R thoracentesis, yielding 600 milliliters of fluid Cdiff colitis Diarrhea; now improving on Dificid -06/19 Cdif toxin a/b + R lung collapse: -06/16 CXR: Complete opacification of the right hemithorax. Probably due to complete atelectasis of the right lung, with evidence of abrupt occlusion of the right mainstem bronchus. Given findings on prior chest radiographs, there is probably significant component of pleural effusion as well. Positive blood Cx - Likely contaminant BCx 05/28/18 - CoNS BCX 05/30/18 - NGTD Leukocytosis , recurrent mild- SP Fever, SP COPD CAD A. fib s/p PEG 06/24 PLAN -Continue Fidaxomicin 200mg bid #4/10 -3/5 SP PO Vancomycin #17 -06/26 SP Ertapenem #6 -06/20 SP Meropenem #5 -06/17 SP IV Vancomycin # -2/14 SP Cefepime #20 - Monitor CBC and Temps Discussed with RN Subjective Allergies: Coded Allergies: Mushroom (Verified Allergy, Severe, 05/28/18) MORPHINE (Unverified Allergy, Intermediate, Itching, 01/04/15) PENICILLINS (Unverified Allergy, Intermediate, Hives, 06/25/18) Tolerates cephalosporins and carbapenems CELECOXIB (Verified Allergy, Mild, 01/15/09) Subjective afebrile no leukocytosis stool output improving Objective Vital Signs Last 24 Hour Vital Signs Date Time Temp Pulse Resp B/P (MAP) Pulse Ox O2 Delivery O2 Flow Rate FiO2 07/08/18 13:12 94 24 35 07/08/18 12:00 Mechanical Ventilator 07/08/18 12:00 97.4 87 18 145/62 (89) 99 07/08/18 12:00 35 07/08/18 12:00 83 07/08/18 10:45 88 27 35 07/08/18 10:45 100 07/08/18 08:36 88 18 100 Mechanical Ventilator 35 07/08/18 08:31 94 142/93 07/08/18 08:25 90 20 100 Mechanical Ventilator 35 07/08/18 08:25 80 22 35 07/08/18 08:00 Mechanical Ventilator 07/08/18 08:00 98 07/08/18 08:00 35 07/08/18 08:00 97.9 94 18 142/93 (109) 100 07/08/18 05:08 86 27 35 07/08/18 04:00 35 07/08/18 04:00 Mechanical Ventilator 07/08/18 04:00 98.3 83 21 132/63 (86) 97 07/08/18 04:00 85 07/08/18 03:47 91 18 100 Mechanical Ventilator 35 07/08/18 03:37 85 20 35 07/08/18 03:36 86 20 100 Mechanical Ventilator 35 07/08/18 01:23 79 17 35 07/08/18 00:00 78 07/08/18 00:00 Mechanical Ventilator 07/08/18 00:00 35 07/08/18 00:00 98.1 79 16 135/59 (84) 98 07/07/18 23:52 77 16 100 Mechanical Ventilator 35 07/07/18 23:42 79 16 100 Mechanical Ventilator 35 07/07/18 23:42 77 16 35 07/07/18 20:48 88 22 35 07/07/18 20:00 Mechanical Ventilator 07/07/18 20:00 98.5 92 24 139/64 (89) 99 07/07/18 20:00 35 07/07/18 20:00 90 07/07/18 19:35 Mechanical Ventilator 35 07/07/18 19:35 91 20 35 07/07/18 19:35 Mechanical Ventilator 35 07/07/18 17:10 109 21 35 07/07/18 16:00 98.9 115 35 137/81 (99) 98 07/07/18 16:00 35 07/07/18 16:00 Mechanical Ventilator 07/07/18 16:00 101 Height (Feet): 5 Height (Inches): 4.00 Weight (Pounds): 120 Objective General Appearance: no apparent distress, Neck: supple, trach in place Cardiovascular: normal rate Respiratory/Chest: decreased BS at bases Abdomen: normal bowel sounds, non tender, soft; Peg in place rectal tube in place Extremities: trace edema Laboratory Tests Test 07/08/18 02:50 White Blood Count 8.4 K/UL (4.8-10.8) Red Blood Count 3.66 M/UL (4.20-5.40) L Hemoglobin 8.3 G/DL (12.0-16.0) L Hematocrit 27.0 % (37.0-47.0) L Mean Corpuscular Volume 74 FL (80-99) L Mean Corpuscular Hemoglobin 22.7 PG (27.0-31.0) L Mean Corpuscular Hemoglobin Concent 30.9 G/DL (32.0-36.0) L Red Cell Distribution Width 16.8 % (11.6-14.8) H Platelet Count 251 K/UL (150-450) Mean Platelet Volume 6.8 FL (6.5-10.1) Neutrophils (%) (Auto) 52.8 % (45.0-75.0) Lymphocytes (%) (Auto) 26.3 % (20.0-45.0) Monocytes (%) (Auto) 8.7 % (1.0-10.0) Eosinophils (%) (Auto) 10.8 % (0.0-3.0) H Basophils (%) (Auto) 1.5 % (0.0-2.0) Sodium Level 140 MMOL/L (136-145) Potassium Level 4.5 MMOL/L (3.5-5.1) Chloride Level 100 MMOL/L (98-107) Carbon Dioxide Level 35 MMOL/L (21-32) H Anion Gap 5 mmol/L (5-15) Blood Urea Nitrogen 47 mg/dL (7-18) H Creatinine 1.3 MG/DL (0.55-1.30) Estimat Glomerular Filtration Rate mL/min (>60) Glucose Level 107 MG/DL (74-106) H Calcium Level 8.9 MG/DL (8.5-10.1) Current Medications Medications (Trade) Dose Ordered Sig/Ann Route PRN Reason Start Time Stop Time Status Last Admin Dose Admin Acetaminophen (Tylenol) 650 mg Q4H PRN ORAL Mild Pain/Temp > 100.5 06/26/18 15:30 07/16/18 19:18 06/27/18 17:06 Albuterol/ Ipratropium (Albuterol/ Ipratropium) 3 ml Q4HRT PRN HHN Shortness of Breath 07/07/18 20:30 07/12/18 20:29 07/08/18 08:25 Amiodarone HCl (Cordarone) 200 mg DAILY@1800 GT 06/26/18 18:00 07/24/18 17:59 07/07/18 17:15 Amlodipine Besylate (Norvasc) 2.5 mg DAILY ORAL 06/27/18 09:00 07/25/18 08:59 07/08/18 08:31 Dextrose/Sodium Chloride 1,000 ml @ 50 mls/hr Q20H IV 07/01/18 08:00 07/31/18 07:59 07/07/18 23:30 Famotidine (Pepcid) 10 mg BEDTIME GT 07/07/18 21:00 08/06/18 20:59 07/07/18 20:45 Fidaxomicin (Dificid) 200 mg EVERY 12 HOURS ORAL 07/05/18 21:00 07/15/18 09:01 07/08/18 08:32 Furosemide (Lasix) 20 mg DAILY ORAL 07/05/18 10:15 08/04/18 10:14 07/08/18 08:30 Haloperidol Lactate (Haldol) 5 mg Q6H PRN IM Agitation 07/06/18 12:00 08/05/18 11:59 07/06/18 13:01 Metoprolol Tartrate (Lopressor) 5 mg Q6H PRN IVP HR > 125 06/26/18 18:00 07/16/18 17:59 Ondansetron HCl (Zofran) 4 mg Q6H PRN IVP Nausea & Vomiting 06/26/18 14:00 07/16/18 13:59 Potassium Chloride (K-Dur) 20 meq TWICE A DAY GT 07/05/18 09:00 08/04/18 08:59 07/08/18 08:31 Quetiapine Fumarate (SEROquel) 12.5 mg QHS ORAL 06/29/18 21:00 07/29/18 20:59 07/07/18 20:44 Natty Hernandes M.D. Jul 08, 2018 15:33
--- NOTE | 2018-07-08 15:50 | NUR ---
Social Service Note Follow up call placed to Karen at [facility], , possible bed availability this weekend. SUGAR faxed updated JUL [phone]. Ambulance on-will call with [facility] [phone].
[2018-07-08] MEDS: Amiodarone 200mg tab GT SCH (17:23)
--- NOTE | 2018-07-08 17:59 | Cardiology Progress Note ---
Assessment/Plan Assessment/Plan COPD, congestive heart failure, atrial fibrillation sinus tachy agitation right lung collapse? anemia pleural effusion respirator failure tachy acute on chronic renal failure pleural effusion tele sinus vent support abx pulm rxn beta evelyn iv or via ngt prn amiod to 200 qd hemodynamically stable at the moment bp is high cr abn s/p trach and peg s/p thoracentesis duplex neg bp elelvated extra norvasc Subjective ROS Limited/Unobtainable: Yes Subjective in sdu on vent in isolation Objective Last 24 Hour Vital Signs Date Time Temp Pulse Resp B/P (MAP) Pulse Ox O2 Delivery O2 Flow Rate FiO2 07/08/18 17:23 102 175/59 07/08/18 16:00 35 07/08/18 16:00 98.6 103 19 175/59 (97) 98 07/08/18 16:00 102 07/08/18 16:00 Mechanical Ventilator 07/08/18 15:20 89 23 35 07/08/18 13:12 94 24 35 07/08/18 12:00 Mechanical Ventilator 07/08/18 12:00 97.4 87 18 145/62 (89) 99 07/08/18 12:00 35 07/08/18 12:00 83 07/08/18 10:45 88 27 35 07/08/18 10:45 100 07/08/18 08:36 88 18 100 Mechanical Ventilator 35 07/08/18 08:31 94 142/93 07/08/18 08:25 90 20 100 Mechanical Ventilator 35 07/08/18 08:25 80 22 35 07/08/18 08:00 Mechanical Ventilator 07/08/18 08:00 98 07/08/18 08:00 35 07/08/18 08:00 97.9 94 18 142/93 (109) 100 07/08/18 05:08 86 27 35 07/08/18 04:00 35 07/08/18 04:00 Mechanical Ventilator 07/08/18 04:00 98.3 83 21 132/63 (86) 97 07/08/18 04:00 85 07/08/18 03:47 91 18 100 Mechanical Ventilator 35 07/08/18 03:37 85 20 35 07/08/18 03:36 86 20 100 Mechanical Ventilator 35 07/08/18 01:23 79 17 35 07/08/18 00:00 78 07/08/18 00:00 Mechanical Ventilator 07/08/18 00:00 35 07/08/18 00:00 98.1 79 16 135/59 (84) 98 07/07/18 23:52 77 16 100 Mechanical Ventilator 35 07/07/18 23:42 79 16 100 Mechanical Ventilator 35 07/07/18 23:42 77 16 35 07/07/18 20:48 88 22 35 07/07/18 20:00 Mechanical Ventilator 07/07/18 20:00 98.5 92 24 139/64 (89) 99 07/07/18 20:00 35 07/07/18 20:00 90 07/07/18 19:35 Mechanical Ventilator 35 07/07/18 19:35 91 20 35 07/07/18 19:35 Mechanical Ventilator 35 General Appearance: no apparent distress, alert, on vent, patient on isolation Intake and Output 07/07/18 07/08/18 19:00 07:00 Intake Total 1735 ml 1420 ml Output Total 1655 ml 575 ml Balance 80 ml 845 ml Free Water 300 ml 160 ml IV Total 775 ml 600 ml Tube Feeding 660 ml 660 ml Output Urine Total 1550 ml 550 ml Stool Total 105 ml 25 ml Laboratory Tests Test 07/08/18 02:50 White Blood Count 8.4 K/UL (4.8-10.8) Red Blood Count 3.66 M/UL (4.20-5.40) L Hemoglobin 8.3 G/DL (12.0-16.0) L Hematocrit 27.0 % (37.0-47.0) L Mean Corpuscular Volume 74 FL (80-99) L Mean Corpuscular Hemoglobin 22.7 PG (27.0-31.0) L Mean Corpuscular Hemoglobin Concent 30.9 G/DL (32.0-36.0) L Red Cell Distribution Width 16.8 % (11.6-14.8) H Platelet Count 251 K/UL (150-450) Mean Platelet Volume 6.8 FL (6.5-10.1) Neutrophils (%) (Auto) 52.8 % (45.0-75.0) Lymphocytes (%) (Auto) 26.3 % (20.0-45.0) Monocytes (%) (Auto) 8.7 % (1.0-10.0) Eosinophils (%) (Auto) 10.8 % (0.0-3.0) H Basophils (%) (Auto) 1.5 % (0.0-2.0) Sodium Level 140 MMOL/L (136-145) Potassium Level 4.5 MMOL/L (3.5-5.1) Chloride Level 100 MMOL/L (98-107) Carbon Dioxide Level 35 MMOL/L (21-32) H Anion Gap 5 mmol/L (5-15) Blood Urea Nitrogen 47 mg/dL (7-18) H Creatinine 1.3 MG/DL (0.55-1.30) Estimat Glomerular Filtration Rate mL/min (>60) Glucose Level 107 MG/DL (74-106) H Calcium Level 8.9 MG/DL (8.5-10.1) Geoffrey Sandhu MD Jul 08, 2018 17:59
--- NOTE | 2018-07-08 18:16 | NUR ---
CASE MANAGEMENT: REVIEW SI: A-FIB . RESPIRATORY FAILURE TRACHEOSTOMY 06/23 PEG PLACEMENT 06/24 T 98.6 HR 103 RR 25 BP 175/59 SAT 98% MECH VENT FIO2 35 H/H 8.9/27.0 IS: AMIODARONE GT QD NORVASC GT QD LASIX GT QD GT FEEDING NEPRO @40ML/HR STEP DOWN UNIT STATUS DCP: SUBACUTE PLACEMENT
--- NOTE | 2018-07-08 18:57 | General Progress Note ---
Assessment/Plan Status: progressing Assessment/Plan This is an 87-year-old female admitted with chronic obstructive pulmonary disease exacerbation, right lower lobe infiltrate/pneumonia with altered mental status and acute kidney injury. The patient will be admitted to [facility] with the following medical problems. 1. Chronic obstructive pulmonary disease exacerbation and pneumonia. The patient has been seen by Pulmonary. Infectious Disease has been consulted, pancultured. IV antibiotics per ID. Continue with BiPAP and suction p.r.n. Transition to Venturi-mask when stable. 2. Acute kidney injury. We will monitor I's and O's, gentle intravenous fluids. Repeat a BMP in a.m. Consider Nephrology consult. 3. History of chronic atrial fibrillation. Continue with amiodarone. The patient is in sinus rhythm at this time. 4. History of hypertension. Continue with amlodipine and hold for systolic blood pressure less than 110. 5. Altered mental status, most likely from above conditions. We will keep n.p.o. except for medications and start IV fluids. 6. DVT prophylaxis with heparin subcutaneous and SCDs. 7. The patient is Full Code per policy. We will discuss with the family. 8. hypokalmia 9. Anemia 10. CHf acute on chronic 11. leucocytosis 12. ARF? ATN 13. C dif positive 14. hyperkalemia 15. pleural effusion 16. S/p Tracheostomy 06/22/18 17, hypernatremia 18, pleural effusion Plan: - continue respiratory support - aggressive pulmonary suction - HD on hold as patient putting out better urine and createnine is improving - antibiotics per ID - on oral vanco for one more day - am labs - weaning off vent per pulmonary - Gi prophylaxis with protonix iv 40 mg daily - s/p Kayexalate - norvasc added for better BP cotrol - s/p PEG discussed with nurse Contact isolation for C dif now in [facility] - transfuse one unit of PRBC on 06-28-18 - weaning trial - am labs - continue 10 day course of Difficid - agree with Lasix, consider increasing dose will dc to LTAC based on bed available [facility] if not [facility] nurse Subjective Date patient seen: Jul 08, 2018 ROS Limited/Unobtainable: Yes Allergies: Coded Allergies: Mushroom (Verified Allergy, Severe, 05/28/18) MORPHINE (Unverified Allergy, Intermediate, Itching, 01/04/15) PENICILLINS (Unverified Allergy, Intermediate, Hives, 06/25/18) Tolerates cephalosporins and carbapenems CELECOXIB (Verified Allergy, Mild, 01/15/09) Subjective patient was agitated and restraints ordered, on Difficid now as C dif not responding to oral Vanco Objective Last 24 Hour Vital Signs Date Time Temp Pulse Resp B/P (MAP) Pulse Ox O2 Delivery O2 Flow Rate FiO2 07/08/18 17:23 102 175/59 07/08/18 17:01 91 25 35 07/08/18 16:00 35 07/08/18 16:00 98.6 103 19 175/59 (97) 98 07/08/18 16:00 102 07/08/18 16:00 Mechanical Ventilator 07/08/18 15:20 89 23 35 07/08/18 13:12 94 24 35 07/08/18 12:00 Mechanical Ventilator 07/08/18 12:00 97.4 87 18 145/62 (89) 99 07/08/18 12:00 35 07/08/18 12:00 83 07/08/18 10:45 88 27 35 07/08/18 10:45 100 07/08/18 08:36 88 18 100 Mechanical Ventilator 35 07/08/18 08:31 94 142/93 07/08/18 08:25 90 20 100 Mechanical Ventilator 35 07/08/18 08:25 80 22 35 07/08/18 08:00 Mechanical Ventilator 07/08/18 08:00 98 07/08/18 08:00 35 07/08/18 08:00 97.9 94 18 142/93 (109) 100 07/08/18 05:08 86 27 35 07/08/18 04:00 35 07/08/18 04:00 Mechanical Ventilator 07/08/18 04:00 98.3 83 21 132/63 (86) 97 07/08/18 04:00 85 07/08/18 03:47 91 18 100 Mechanical Ventilator 35 07/08/18 03:37 85 20 35 07/08/18 03:36 86 20 100 Mechanical Ventilator 35 07/08/18 01:23 79 17 35 07/08/18 00:00 78 07/08/18 00:00 Mechanical Ventilator 07/08/18 00:00 35 07/08/18 00:00 98.1 79 16 135/59 (84) 98 07/07/18 23:52 77 16 100 Mechanical Ventilator 35 07/07/18 23:42 79 16 100 Mechanical Ventilator 35 07/07/18 23:42 77 16 35 07/07/18 20:48 88 22 35 07/07/18 20:00 Mechanical Ventilator 07/07/18 20:00 98.5 92 24 139/64 (89) 99 07/07/18 20:00 35 07/07/18 20:00 90 07/07/18 19:35 Mechanical Ventilator 35 07/07/18 19:35 91 20 35 07/07/18 19:35 Mechanical Ventilator 35 Intake and Output 07/07/18 07/08/18 19:00 07:00 Intake Total 1735 ml 1420 ml Output Total 1655 ml 575 ml Balance 80 ml 845 ml Free Water 300 ml 160 ml IV Total 775 ml 600 ml Tube Feeding 660 ml 660 ml Output Urine Total 1550 ml 550 ml Stool Total 105 ml 25 ml Laboratory Tests 07/08/18 02:50: White Blood Count 8.4, Red Blood Count 3.66L, Hemoglobin 8.3L, Hematocrit 27.0L , Mean Corpuscular Volume 74L, Mean Corpuscular Hemoglobin 22.7L, Mean Corpuscular Hemoglobin Concent 30.9L, Red Cell Distribution Width 16.8H, Platelet Count 251, Mean Platelet Volume 6.8, Neutrophils (%) (Auto) 52.8, Lymphocytes (%) (Auto) 26.3, Monocytes (%) (Auto) 8.7, Eosinophils (%) (Auto) 10.8H, Basophils (%) (Auto) 1.5, Sodium Level 140, Potassium Level 4.5, Chloride Level 100, Carbon Dioxide Level 35H, Anion Gap 5, Blood Urea Nitrogen 47H, Creatinine 1.3, Estimat Glomerular Filtration Rate , Glucose Level 107H, Calcium Level 8.9 Height (Feet): 5 Height (Inches): 4.00 Weight (Pounds): 120 General Appearance: no apparent distress, alert EENT: PERRL/EOMI, pharynx normal Neck: non-tender, supple Cardiovascular: normal rate, regular rhythm, no gallop/murmur, no JVD Respiratory/Chest: decreased breath sounds Abdomen: non tender, soft, no mass Extremities: non-tender, normal inspection, no calf tenderness Edema: no edema noted Arm (L), no edema noted Arm (R), no edema noted Leg (L), no edema noted Leg (R), no edema noted Pedal (L), no edema noted Pedal (R), no edema noted 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
--- NOTE | 2018-07-08 19:17 | NUR ---
HAND-OFF: Report given to MARGY Joyner. Pt in stable condition.
--- NOTE | 2018-07-08 19:30 | NUR ---
NURSE NOTES: Received report from MARGY Paz. Observed pt lying on the bed, awake. No signs of pain and distress noted. Was told pt well tolerated SIMV vent setting for 6 hours during morning shift. Current vent setting is AC 16, TD 350, PEEP 5, FIO2 35%. IV on R FA 24G, intact and patent. Bed in the lowest position. Side rails up x3. Will continue to monitor.
--- NOTE | 2018-07-08 20:38 | NUR ---
RESPIRATORY NOTE: Received pt. on 840 vent. Vent settings are: A/C rate of 16, Vt 350, FI02 35%, PEEP +5. No respiratory distress noted, pt. Sp02 @ 99%. Ambu bag @ BS. Vent plugged on red outlet. Will continue to monitor pt.
[2018-07-08] MEDS: D5 1/2NS 1,000 ML IV SCH (21:02)
[2018-07-09] VITALS: BP 138/69
--- NOTE | 2018-07-09 02:30 | NUR ---
NURSE NOTES: Observed pt sleeping on the bed. No signs of acute distress noted. Oral care and reposition done. Pt well tolerated current vent setting. Will continue to monitor.
[2018-07-09 04:00] VITALS: BP 149/70
--- NOTE | 2018-07-09 07:08 | NUR ---
RESPIRATORY NOTE: Received patient asleep and under no noted distress. Found on vent settings of: AC 16 350 35% +5. Ambu bag found at beside, and patient has clear breath sounds. Patient is stable at this time, and will continue to monitor.
--- NOTE | 2018-07-09 07:24 | NUR ---
HAND-OFF: Report given to MARGY Cotton. No acute distress noted at this time.
--- NOTE | 2018-07-09 07:25 | NUR ---
NURSE NOTES: Received patient in bed awake, agitated, vent dependent. On cont GTF. Bilateral soft wrist restraints noted. Contact and bleach Isolation observed. Will cont plan of care
[2018-07-09 08:00] VITALS: BP 149/69
--- NOTE | 2018-07-09 08:55 | Infectious Diseases Prog Note ---
Assessment/Plan Assessment/Plan 87 yo feamle with PMHx of COPD, HTN, and A.fib sent to the ED from her detention for SOB. Sepsis;improving - Likely PNA 06/21 CXR: Slightly increased right lung opacity, suspect increasing pleural fluid.Increased retrocardiac consolidation 06/17 CXR: Increasing right lung opacity, likely representing decreasing pleural fluid but may also represent increasing parenchymal consolidation 06/15 CXR: Increasing opacification right hemithorax, likely reflecting increasing pleural fluid but may also reflect increasing pulmonary parenchymal consolidation 06/14 CXR: Diffuse right lung hazy opacity appears similar to the prior exam. 06/12 CXR: : Hazy opacification of the right hemithorax, likely reflecting pleural fluid, is unchanged. 05/28/18 CXR with atalectasis vs consolidation in the right side. 06/01/18 CXR - Extensive right hemithorax opacification UA (-) sputum cx 06/15: MRSA (likely a colonizer at this point), ESBL E.coli Sputum Cx 05/28/18 - MRSA (Inf Neg) Urine legionella (-) Acute respiratory failure s/p intubation 06/16 -s/p trach 06/23 R>L pleural effusion; exudate -FLuid pH 8, protein 3.5 (serum 6.5), LDH 111 (serum 203: cx NTD -06/28 SP Successful ultrasound-guided R thoracentesis, yielding 600 milliliters of fluid Cdiff colitis Diarrhea; now improving on Dificid -06/19 Cdif toxin a/b + R lung collapse: -06/16 CXR: Complete opacification of the right hemithorax. Probably due to complete atelectasis of the right lung, with evidence of abrupt occlusion of the right mainstem bronchus. Given findings on prior chest radiographs, there is probably significant component of pleural effusion as well. Positive blood Cx - Likely contaminant BCx 05/28/18 - CoNS BCX 05/30/18 - NGTD Leukocytosis , recurrent mild- SP Fever, SP COPD CAD A. fib s/p PEG 06/24 PLAN -Continue Fidaxomicin 200mg bid #5/10 -3/5 SP PO Vancomycin #17 -06/26 SP Ertapenem #6 -06/20 SP Meropenem #5 -06/17 SP IV Vancomycin # -2/14 SP Cefepime #20 - Monitor CBC and Temps Subjective Allergies: Coded Allergies: Mushroom (Verified Allergy, Severe, 05/28/18) MORPHINE (Unverified Allergy, Intermediate, Itching, 01/04/15) PENICILLINS (Unverified Allergy, Intermediate, Hives, 06/25/18) Tolerates cephalosporins and carbapenems CELECOXIB (Verified Allergy, Mild, 01/15/09) Subjective Intubated Afebrile Leukocytosis Resolved Objective Vital Signs Last 24 Hour Vital Signs Date Time Temp Pulse Resp B/P (MAP) Pulse Ox O2 Delivery O2 Flow Rate FiO2 07/09/18 07:48 72 07/09/18 07:05 73 17 35 07/09/18 04:44 74 17 35 07/09/18 04:00 76 07/09/18 04:00 Mechanical Ventilator 07/09/18 04:00 98.6 78 19 149/70 (96) 100 07/09/18 04:00 35 07/09/18 03:20 78 22 35 07/09/18 01:20 92 20 35 07/09/18 00:00 73 07/09/18 00:00 Mechanical Ventilator 07/09/18 00:00 97.9 71 17 138/69 (92) 99 07/08/18 23:57 89 23 35 07/08/18 21:56 74 128/63 (84) 07/08/18 21:03 93 160/72 07/08/18 21:00 91 24 35 07/08/18 20:12 87 25 35 07/08/18 20:00 98.5 93 23 160/72 (101) 100 07/08/18 20:00 89 07/08/18 20:00 Mechanical Ventilator 07/08/18 20:00 35 07/08/18 17:23 102 175/59 07/08/18 17:01 91 25 35 07/08/18 16:00 35 07/08/18 16:00 98.6 103 19 175/59 (97) 98 07/08/18 16:00 102 07/08/18 16:00 Mechanical Ventilator 07/08/18 15:20 89 23 35 07/08/18 13:12 94 24 35 07/08/18 12:00 Mechanical Ventilator 07/08/18 12:00 97.4 87 18 145/62 (89) 99 07/08/18 12:00 35 07/08/18 12:00 83 07/08/18 10:45 88 27 35 07/08/18 10:45 100 Height (Feet): 5 Height (Inches): 4.00 Weight (Pounds): 120 Objective General: NAD, Intubated HEENT: NCAT, DMM, PERRL LUNGS: Course B/L, No W HEART; RRR Abdomen: Soft, NT, ND, + BS Current Medications Medications (Trade) Dose Ordered Sig/Ann Route PRN Reason Start Time Stop Time Status Last Admin Dose Admin Acetaminophen (Tylenol) 650 mg Q4H PRN ORAL Mild Pain/Temp > 100.5 06/26/18 15:30 07/16/18 19:18 06/27/18 17:06 Albuterol/ Ipratropium (Albuterol/ Ipratropium) 3 ml Q4HRT PRN HHN Shortness of Breath 07/07/18 20:30 07/12/18 20:29 07/08/18 08:25 Amiodarone HCl (Cordarone) 200 mg DAILY@1800 GT 06/26/18 18:00 07/24/18 17:59 07/08/18 17:23 Amlodipine Besylate (Norvasc) 2.5 mg DAILY ORAL 06/27/18 09:00 07/25/18 08:59 07/08/18 08:31 Dextrose/Sodium Chloride 1,000 ml @ 50 mls/hr Q20H IV 07/01/18 08:00 07/31/18 07:59 07/08/18 21:02 Famotidine (Pepcid) 10 mg BEDTIME GT 07/07/18 21:00 08/06/18 20:59 07/08/18 21:02 Fidaxomicin (Dificid) 200 mg EVERY 12 HOURS ORAL 07/05/18 21:00 07/15/18 09:01 07/08/18 21:02 Furosemide (Lasix) 20 mg DAILY ORAL 07/05/18 10:15 08/04/18 10:14 07/08/18 08:30 Haloperidol Lactate (Haldol) 5 mg Q6H PRN IM Agitation 07/06/18 12:00 08/05/18 11:59 07/06/18 13:01 Metoprolol Tartrate (Lopressor) 5 mg Q6H PRN IVP HR > 125 06/26/18 18:00 07/16/18 17:59 07/08/18 21:03 Ondansetron HCl (Zofran) 4 mg Q6H PRN IVP Nausea & Vomiting 06/26/18 14:00 07/16/18 13:59 Potassium Chloride (K-Dur) 20 meq TWICE A DAY GT 07/05/18 09:00 08/04/18 08:59 07/08/18 17:23 Quetiapine Fumarate (SEROquel) 12.5 mg QHS ORAL 06/29/18 21:00 07/29/18 20:59 07/08/18 21:02 Clint Harris MD Jul 09, 2018 08:55
[2018-07-09 12:00] VITALS: BP 146/66
--- NOTE | 2018-07-09 12:29 | Nephrology Progress Note ---
Assessment/Plan Problem List: (1) Acute renal failure Assessment: Cr lowering (2) Anuria (3) Acute respiratory failure Assessment: on vent (4) Dementia (5) Afib Assessment Cr lowering Urine out put rising Cr lowering other conditions: (1) Acute respiratory failure (2) Aspiration pneumonia (3) Acute encephalopathy (4) Pleural effusion (5) COPD (chronic obstructive pulmonary disease) (6) CAD (coronary artery disease) (7) Dementia Plan Labs OK Now trached and Pegged Cr lowering- Urine out put higher monitor vanco level K and Phos and Mag as needed Anemia porter Adjust BP meds fu Lytes Gastric support per orders Subjective ROS Limited/Unobtainable: Yes Objective Objective Last 24 Hour Vital Signs Date Time Temp Pulse Resp B/P (MAP) Pulse Ox O2 Delivery O2 Flow Rate FiO2 07/09/18 10:43 97 21 35 07/09/18 09:16 84 149/69 07/09/18 09:06 99 27 35 07/09/18 08:00 Mechanical Ventilator 07/09/18 08:00 98.2 84 24 149/69 (95) 100 07/09/18 08:00 35 07/09/18 07:48 72 07/09/18 07:05 73 17 35 07/09/18 04:44 74 17 35 07/09/18 04:00 76 07/09/18 04:00 Mechanical Ventilator 07/09/18 04:00 98.6 78 19 149/70 (96) 100 07/09/18 04:00 35 07/09/18 03:20 78 22 35 07/09/18 01:20 92 20 35 07/09/18 00:00 73 07/09/18 00:00 Mechanical Ventilator 07/09/18 00:00 97.9 71 17 138/69 (92) 99 07/08/18 23:57 89 23 35 07/08/18 21:56 74 128/63 (84) 07/08/18 21:03 93 160/72 07/08/18 21:00 91 24 35 07/08/18 20:12 87 25 35 07/08/18 20:00 98.5 93 23 160/72 (101) 100 07/08/18 20:00 89 07/08/18 20:00 Mechanical Ventilator 07/08/18 20:00 35 07/08/18 17:23 102 175/59 07/08/18 17:01 91 25 35 07/08/18 16:00 35 07/08/18 16:00 98.6 103 19 175/59 (97) 98 07/08/18 16:00 102 07/08/18 16:00 Mechanical Ventilator 07/08/18 15:20 89 23 35 07/08/18 13:12 94 24 35 Intake and Output 07/08/18 07/09/18 19:00 07:00 Intake Total 1485 ml 1400 ml Output Total 1225 ml 500 ml Balance 260 ml 900 ml Free Water 200 ml 140 ml IV Total 625 ml 600 ml Tube Feeding 660 ml 660 ml Output Urine Total 1150 ml 500 ml Stool Total 75 ml Height (Feet): 5 Height (Inches): 4.00 Weight (Pounds): 120 General Appearance: no apparent distress Cardiovascular: tachycardia Respiratory/Chest: decreased breath sounds Abdomen: distended Objective no change Kendrick Jimenez MD Jul 09, 2018 12:29
[2018-07-09 16:00] VITALS: BP 146/57
--- NOTE | 2018-07-09 16:20 | NUR ---
NURSE NOTES: Dr Valderrama at bedside with order to discontinue IVF since pt is tolerating GTF.
--- NOTE | 2018-07-09 16:24 | General Progress Note ---
Assessment/Plan Status: progressing Assessment/Plan This is an 87-year-old female admitted with chronic obstructive pulmonary disease exacerbation, right lower lobe infiltrate/pneumonia with altered mental status and acute kidney injury. The patient will be admitted to [facility] with the following medical problems. 1. Chronic obstructive pulmonary disease exacerbation and pneumonia. The patient has been seen by Pulmonary. Infectious Disease has been consulted, pancultured. IV antibiotics per ID. Continue with BiPAP and suction p.r.n. Transition to Venturi-mask when stable. 2. Acute kidney injury. We will monitor I's and O's, gentle intravenous fluids. Repeat a BMP in a.m. Consider Nephrology consult. 3. History of chronic atrial fibrillation. Continue with amiodarone. The patient is in sinus rhythm at this time. 4. History of hypertension. Continue with amlodipine and hold for systolic blood pressure less than 110. 5. Altered mental status, most likely from above conditions. We will keep n.p.o. except for medications and start IV fluids. 6. DVT prophylaxis with heparin subcutaneous and SCDs. 7. The patient is Full Code per policy. We will discuss with the family. 8. hypokalmia 9. Anemia 10. CHf acute on chronic 11. leucocytosis 12. ARF? ATN 13. C dif positive 14. hyperkalemia 15. pleural effusion 16. S/p Tracheostomy 06/22/18 17, hypernatremia 18, pleural effusion Plan: - continue respiratory support - aggressive pulmonary suction - HD on hold as patient putting out better urine and createnine is improving - antibiotics per ID - on oral vanco for one more day - am labs - weaning off vent per pulmonary - Gi prophylaxis with protonix iv 40 mg daily - s/p Kayexalate - norvasc added for better BP cotrol - s/p PEG discussed with nurse Contact isolation for C dif now in [facility] - transfuse one unit of PRBC on 06-28-18 - weaning trial - am labs - continue 10 day course of Difficid - heplock iv as tolerating tube feeding - am labs will dc to LTAC based on bed available family [facility] if not [facility] - repeat c dif toxin pending discussed with nurse Subjective Date patient seen: Jul 09, 2018 ROS Limited/Unobtainable: Yes Allergies: Coded Allergies: Mushroom (Verified Allergy, Severe, 05/28/18) MORPHINE (Unverified Allergy, Intermediate, Itching, 01/04/15) PENICILLINS (Unverified Allergy, Intermediate, Hives, 06/25/18) Tolerates cephalosporins and carbapenems CELECOXIB (Verified Allergy, Mild, 01/15/09) Subjective patient was agitated and restraints ordered, on Difficid now as C dif not responding to oral Vanco Objective Last 24 Hour Vital Signs Date Time Temp Pulse Resp B/P (MAP) Pulse Ox O2 Delivery O2 Flow Rate FiO2 07/09/18 15:40 2 07/09/18 15:29 80 18 35 07/09/18 12:45 82 17 35 07/09/18 12:00 35 07/09/18 12:00 98.2 94 20 146/66 (92) 98 07/09/18 12:00 Mechanical Ventilator 07/09/18 11:57 86 07/09/18 10:43 97 21 35 07/09/18 09:16 84 149/69 07/09/18 09:06 99 27 35 07/09/18 08:00 Mechanical Ventilator 07/09/18 08:00 98.2 84 24 149/69 (95) 100 07/09/18 08:00 35 07/09/18 07:48 72 07/09/18 07:05 73 17 35 07/09/18 04:44 74 17 35 07/09/18 04:00 76 07/09/18 04:00 Mechanical Ventilator 07/09/18 04:00 98.6 78 19 149/70 (96) 100 07/09/18 04:00 35 07/09/18 03:20 78 22 35 07/09/18 01:20 92 20 35 07/09/18 00:00 73 07/09/18 00:00 Mechanical Ventilator 07/09/18 00:00 97.9 71 17 138/69 (92) 99 07/08/18 23:57 89 23 35 07/08/18 21:56 74 128/63 (84) 07/08/18 21:03 93 160/72 07/08/18 21:00 91 24 35 07/08/18 20:12 87 25 35 07/08/18 20:00 98.5 93 23 160/72 (101) 100 07/08/18 20:00 89 07/08/18 20:00 Mechanical Ventilator 07/08/18 20:00 35 07/08/18 17:23 102 175/59 07/08/18 17:01 91 25 35 Intake and Output 07/08/18 07/09/18 19:00 07:00 Intake Total 1485 ml 1400 ml Output Total 1225 ml 500 ml Balance 260 ml 900 ml Free Water 200 ml 140 ml IV Total 625 ml 600 ml Tube Feeding 660 ml 660 ml Output Urine Total 1150 ml 500 ml Stool Total 75 ml Height (Feet): 5 Height (Inches): 4.00 Weight (Pounds): 120 General Appearance: no apparent distress, alert EENT: PERRL/EOMI, pharynx normal Neck: non-tender, supple Cardiovascular: normal rate, regular rhythm, no gallop/murmur, no JVD Respiratory/Chest: chest wall non-tender, normal breath sounds, no respiratory distress Abdomen: non tender, soft, no mass Extremities: non-tender, normal inspection, no calf tenderness Edema: no edema noted Arm (L), no edema noted Arm (R), no edema noted Leg (L), no edema noted Leg (R), no edema noted Pedal (L), no edema noted Pedal (R), no edema noted Generalized Neurologic: alert Lymphatic: normal anterior cervical (L), normal anterior cervical (R), normal posterior cervical (L), normal posterior cervical (R), normal submandibular (L) , normal submandibular (R), normal supraclavicular (L), normal supraclavicular ( R), normal axillary (L), normal axillary (R), normal inguinal (L), normal inguinal (R), normal other Cruz Valderrama MD Jul 09, 2018 16:24
--- NOTE | 2018-07-09 17:03 | Cardiology Progress Note ---
Assessment/Plan Assessment/Plan COPD, congestive heart failure, atrial fibrillation sinus tachy agitation right lung collapse? anemia pleural effusion respirator failure tachy acute on chronic renal failure pleural effusion tele sinus vent support abx pulm rxn beta evelyn iv or via ngt prn amiod to 200 qd hemodynamically stable at the moment bp is high cr improved s/p trach and peg s/p thoracentesis duplex neg now off ivf on lasix dialy d/w dr vicente Subjective ROS Limited/Unobtainable: Yes Subjective in sdu on vent in isolation Objective Last 24 Hour Vital Signs Date Time Temp Pulse Resp B/P (MAP) Pulse Ox O2 Delivery O2 Flow Rate FiO2 07/09/18 16:36 100 25 35 07/09/18 16:00 Mechanical Ventilator 07/09/18 16:00 35 07/09/18 15:40 2 07/09/18 15:29 80 18 35 07/09/18 12:45 82 17 35 07/09/18 12:00 35 07/09/18 12:00 98.2 94 20 146/66 (92) 98 07/09/18 12:00 Mechanical Ventilator 07/09/18 11:57 86 07/09/18 10:43 97 21 35 07/09/18 09:16 84 149/69 07/09/18 09:06 99 27 35 07/09/18 08:00 Mechanical Ventilator 07/09/18 08:00 98.2 84 24 149/69 (95) 100 07/09/18 08:00 35 07/09/18 07:48 72 07/09/18 07:05 73 17 35 07/09/18 04:44 74 17 35 07/09/18 04:00 76 07/09/18 04:00 Mechanical Ventilator 07/09/18 04:00 98.6 78 19 149/70 (96) 100 07/09/18 04:00 35 07/09/18 03:20 78 22 35 07/09/18 01:20 92 20 35 07/09/18 00:00 73 07/09/18 00:00 Mechanical Ventilator 07/09/18 00:00 97.9 71 17 138/69 (92) 99 07/08/18 23:57 89 23 35 07/08/18 21:56 74 128/63 (84) 07/08/18 21:03 93 160/72 07/08/18 21:00 91 24 35 07/08/18 20:12 87 25 35 07/08/18 20:00 98.5 93 23 160/72 (101) 100 07/08/18 20:00 89 07/08/18 20:00 Mechanical Ventilator 07/08/18 20:00 35 07/08/18 17:23 102 175/59 General Appearance: no apparent distress, alert, on vent, patient on isolation Cardiovascular: normal rate Respiratory/Chest: rhonchi - bilaterally Abdomen: normal bowel sounds, non tender, soft Extremities: no swelling Intake and Output 07/08/18 07/09/18 19:00 07:00 Intake Total 1485 ml 1400 ml Output Total 1225 ml 500 ml Balance 260 ml 900 ml Free Water 200 ml 140 ml IV Total 625 ml 600 ml Tube Feeding 660 ml 660 ml Output Urine Total 1150 ml 500 ml Stool Total 75 ml Geoffrey Sandhu MD Jul 09, 2018 17:03
[2018-07-09] MEDS: D5 1/2NS 1,000 ML IV SCH (18:28)
[2018-07-09] MEDS: Amiodarone 200mg tab GT SCH (18:29)
--- NOTE | 2018-07-09 19:20 | NUR ---
HAND-OFF: Report given to Srini Hwang RN.
--- NOTE | 2018-07-09 19:21 | NUR ---
NURSE NOTES: Received report from MARGY Cotton. Observed pt sleeping on the bed. No signs of pain and distress noted. No signs of SOB. Current vent setting is AC 16, TD 350, PEEP 5, FIO2 35%. IV on R FA 24G, intact and patent. Bed in the lowest position. Side rails up x3. Call light within reach. Will continue to monitor.
[2018-07-09] MEDS ORDERED: D5 1/2NS 1000ml IV ONE (19:52)
[2018-07-09] MEDS ORDERED: 1/2 NS 1000ml IV ONE (19:52)
[2018-07-09] MEDS ORDERED: Tubing IV Secondary IV ONE (19:52)
[2018-07-09] MEDS ORDERED: NS 275ml ONE (19:52)
[2018-07-09 20:00] VITALS: BP 143/73
--- NOTE | 2018-07-09 20:13 | General Progress Note ---
Assessment/Plan Problem List: (1) encephalopathy due to toxin (2) Dementia ICD Codes: F03.90 - Unspecified dementia without behavioral disturbance SNOMED: 59791191 Assessment/Plan Haldol Im on board cont restraints. dw nurse recommend palliative care Subjective Allergies: Coded Allergies: Mushroom (Verified Allergy, Severe, 05/28/18) MORPHINE (Unverified Allergy, Intermediate, Itching, 01/04/15) PENICILLINS (Unverified Allergy, Intermediate, Hives, 06/25/18) Tolerates cephalosporins and carbapenems CELECOXIB (Verified Allergy, Mild, 01/15/09) Subjective confused less agitated the pt stated she wants to go and pointing to up. Objective Last 24 Hour Vital Signs Date Time Temp Pulse Resp B/P (MAP) Pulse Ox O2 Delivery O2 Flow Rate FiO2 07/09/18 19:25 87 17 35 07/09/18 16:36 100 25 35 07/09/18 16:00 Mechanical Ventilator 07/09/18 16:00 35 07/09/18 16:00 98.4 101 15 146/57 (86) 95 07/09/18 15:40 2 07/09/18 15:29 80 18 35 07/09/18 12:45 82 17 35 07/09/18 12:00 35 07/09/18 12:00 98.2 94 20 146/66 (92) 98 07/09/18 12:00 Mechanical Ventilator 07/09/18 11:57 86 07/09/18 10:43 97 21 35 07/09/18 09:16 84 149/69 07/09/18 09:06 99 27 35 07/09/18 08:00 Mechanical Ventilator 07/09/18 08:00 98.2 84 24 149/69 (95) 100 07/09/18 08:00 35 07/09/18 07:48 72 07/09/18 07:05 73 17 35 07/09/18 04:44 74 17 35 07/09/18 04:00 76 07/09/18 04:00 Mechanical Ventilator 07/09/18 04:00 98.6 78 19 149/70 (96) 100 07/09/18 04:00 35 07/09/18 03:20 78 22 35 07/09/18 01:20 92 20 35 07/09/18 00:00 73 07/09/18 00:00 Mechanical Ventilator 07/09/18 00:00 97.9 71 17 138/69 (92) 99 07/08/18 23:57 89 23 35 07/08/18 21:56 74 128/63 (84) 07/08/18 21:03 93 160/72 07/08/18 21:00 91 24 35 Intake and Output 07/08/18 07/09/18 19:00 07:00 Intake Total 1485 ml 1400 ml Output Total 1225 ml 500 ml Balance 260 ml 900 ml Free Water 200 ml 140 ml IV Total 625 ml 600 ml Tube Feeding 660 ml 660 ml Output Urine Total 1150 ml 500 ml Stool Total 75 ml Height (Feet): 5 Height (Inches): 4.00 Weight (Pounds): 120 Liz Lo MD Jul 09, 2018 20:13
--- NOTE | 2018-07-09 22:24 | General Progress Note ---
Assessment/Plan Assessment/Plan Assessment - Resp failure - s/p PEG - C DIff diarrhea - failed vanco - COPD - CHF - PNA - Anemia Recommendations - Vent care - Elevated HOB - Monitor residuals - Pulmonary toilet - wean down acid suppression - Dificid Subjective Allergies: Coded Allergies: Mushroom (Verified Allergy, Severe, 05/28/18) MORPHINE (Unverified Allergy, Intermediate, Itching, 01/04/15) PENICILLINS (Unverified Allergy, Intermediate, Hives, 06/25/18) Tolerates cephalosporins and carbapenems CELECOXIB (Verified Allergy, Mild, 01/15/09) Subjective Seen in [facility] tolerating TF on Dificid Objective Last 24 Hour Vital Signs Date Time Temp Pulse Resp B/P (MAP) Pulse Ox O2 Delivery O2 Flow Rate FiO2 07/09/18 20:49 84 19 35 07/09/18 20:00 87 07/09/18 19:25 87 17 35 07/09/18 16:36 100 25 35 07/09/18 16:00 Mechanical Ventilator 07/09/18 16:00 35 07/09/18 16:00 98.4 101 15 146/57 (86) 95 07/09/18 15:40 2 07/09/18 15:29 80 18 35 07/09/18 12:45 82 17 35 07/09/18 12:00 35 07/09/18 12:00 98.2 94 20 146/66 (92) 98 07/09/18 12:00 Mechanical Ventilator 07/09/18 11:57 86 07/09/18 10:43 97 21 35 07/09/18 09:16 84 149/69 07/09/18 09:06 99 27 35 07/09/18 08:00 Mechanical Ventilator 07/09/18 08:00 98.2 84 24 149/69 (95) 100 07/09/18 08:00 35 07/09/18 07:48 72 07/09/18 07:05 73 17 35 07/09/18 04:44 74 17 35 07/09/18 04:00 76 07/09/18 04:00 Mechanical Ventilator 07/09/18 04:00 98.6 78 19 149/70 (96) 100 07/09/18 04:00 35 07/09/18 03:20 78 22 35 07/09/18 01:20 92 20 35 07/09/18 00:00 73 07/09/18 00:00 Mechanical Ventilator 07/09/18 00:00 97.9 71 17 138/69 (92) 99 07/08/18 23:57 89 23 35 Intake and Output 07/08/18 07/09/18 19:00 07:00 Intake Total 1485 ml 1400 ml Output Total 1225 ml 500 ml Balance 260 ml 900 ml Free Water 200 ml 140 ml IV Total 625 ml 600 ml Tube Feeding 660 ml 660 ml Output Urine Total 1150 ml 500 ml Stool Total 75 ml Height (Feet): 5 Height (Inches): 4.00 Weight (Pounds): 120 Objective Elderly WW NCAT, (+) NGT, (+)ETT Supple CTA RRR Soft, NT, ND No edema restrained Panchito Rahman MD Jul 09, 2018 22:24
--- NOTE | 2018-07-09 22:35 | Pulmonology Progress Note ---
Assessment/Plan Assessment/Plan 1. Acute on chronic hypercapnic respiratory failure -intubated 06/02; extubated 06/10 -reintubated 06/17 -trach 06/23 shiley 8 2. R lung collapse, mucous plugging - resolved 3. Pulmonary edema 4. chronic obstructive asthma 5. Pneumonia 6. Hx afib 7. MRSA pna, recurrent fever and increased leukocytosis 8. ESBL E.coli pna 9. C.diff colitis 10. Pleural effusions -06/28 R thoracentesis; 600 cc Plan: -cont mechanical ventilatory support -SIMV trials for weaning with PS 12 -consider downsizing trach to 6 -pulmonary hygiene with duonebs/suctioning q4 -monitor volumes, has effusions and edema, lasix 20 mg PO daily -repeat CXR wednesday -monitor renal function, improved -abx per ID -PEG done -seroquel 12.5 mg qhs d/c planning LTACH vs subacute Subjective ROS Limited/Unobtainable: Yes Allergies: Coded Allergies: Mushroom (Verified Allergy, Severe, 05/28/18) MORPHINE (Unverified Allergy, Intermediate, Itching, 01/04/15) PENICILLINS (Unverified Allergy, Intermediate, Hives, 06/25/18) Tolerates cephalosporins and carbapenems CELECOXIB (Verified Allergy, Mild, 01/15/09) Subjective on the vent ' positive secretions no bleeding tolerating TF Objective Last 24 Hour Vital Signs Date Time Temp Pulse Resp B/P (MAP) Pulse Ox O2 Delivery O2 Flow Rate FiO2 07/09/18 20:49 84 19 35 07/09/18 20:00 87 07/09/18 19:25 87 17 35 07/09/18 16:36 100 25 35 07/09/18 16:00 Mechanical Ventilator 07/09/18 16:00 35 07/09/18 16:00 98.4 101 15 146/57 (86) 95 07/09/18 15:40 2 07/09/18 15:29 80 18 35 07/09/18 12:45 82 17 35 07/09/18 12:00 35 07/09/18 12:00 98.2 94 20 146/66 (92) 98 07/09/18 12:00 Mechanical Ventilator 07/09/18 11:57 86 07/09/18 10:43 97 21 35 07/09/18 09:16 84 149/69 07/09/18 09:06 99 27 35 07/09/18 08:00 Mechanical Ventilator 07/09/18 08:00 98.2 84 24 149/69 (95) 100 07/09/18 08:00 35 07/09/18 07:48 72 07/09/18 07:05 73 17 35 07/09/18 04:44 74 17 35 07/09/18 04:00 76 07/09/18 04:00 Mechanical Ventilator 07/09/18 04:00 98.6 78 19 149/70 (96) 100 07/09/18 04:00 35 07/09/18 03:20 78 22 35 07/09/18 01:20 92 20 35 07/09/18 00:00 73 07/09/18 00:00 Mechanical Ventilator 07/09/18 00:00 97.9 71 17 138/69 (92) 99 07/08/18 23:57 89 23 35 Intake and Output 07/08/18 07/09/18 19:00 07:00 Intake Total 1485 ml 1400 ml Output Total 1225 ml 500 ml Balance 260 ml 900 ml Free Water 200 ml 140 ml IV Total 625 ml 600 ml Tube Feeding 660 ml 660 ml Output Urine Total 1150 ml 500 ml Stool Total 75 ml General Appearance: cachetic Respiratory/Chest: rhonchi Cardiovascular: normal rate, regular rhythm, regularly irregular Abdomen: no organomegaly Extremities: no cyanosis Neurologic/Psychiatric: disoriented, unresponsiveness Current Medications Medications (Trade) Dose Ordered Sig/Ann Route PRN Reason Start Time Stop Time Status Last Admin Dose Admin Acetaminophen (Tylenol) 650 mg Q4H PRN ORAL Mild Pain/Temp > 100.5 06/26/18 15:30 07/16/18 19:18 06/27/18 17:06 Albuterol/ Ipratropium (Albuterol/ Ipratropium) 3 ml Q4HRT PRN HHN Shortness of Breath 07/07/18 20:30 07/12/18 20:29 07/08/18 08:25 Amiodarone HCl (Cordarone) 200 mg DAILY@1800 GT 06/26/18 18:00 07/24/18 17:59 07/09/18 18:29 Amlodipine Besylate (Norvasc) 2.5 mg DAILY ORAL 06/27/18 09:00 07/25/18 08:59 07/09/18 09:16 Fidaxomicin (Dificid) 200 mg EVERY 12 HOURS ORAL 07/05/18 21:00 07/15/18 09:01 07/09/18 20:45 Furosemide (Lasix) 20 mg DAILY ORAL 07/05/18 10:15 08/04/18 10:14 07/09/18 09:14 Haloperidol Lactate (Haldol) 5 mg Q6H PRN IM Agitation 07/06/18 12:00 08/05/18 11:59 07/06/18 13:01 Metoprolol Tartrate (Lopressor) 5 mg Q6H PRN IVP HR > 125 06/26/18 18:00 07/16/18 17:59 07/08/18 21:03 Ondansetron HCl (Zofran) 4 mg Q6H PRN IVP Nausea & Vomiting 06/26/18 14:00 07/16/18 13:59 Potassium Chloride (K-Dur) 20 meq TWICE A DAY GT 07/05/18 09:00 08/04/18 08:59 07/09/18 18:29 Quetiapine Fumarate (SEROquel) 12.5 mg QHS ORAL 06/29/18 21:00 07/29/18 20:59 07/09/18 20:45 Landy Lindsey 9, 2019 22:35
[2018-07-10] VITALS: BP 130/80
[2018-07-10 04:00] VITALS: BP 148/66
[2018-07-10 06:35] LABS: BASOPHILS % (AUTO) 1.4 % (0.0-2.0); HEMATOCRIT 29.6 % (37.0-47.0); HEMOGLOBIN 9.2 G/DL (12.0-16.0); LYMPHOCYTES % (AUTO) 38.5 % (20.0-45.0); MEAN CORPUSCULAR VOLUME 75 FL (80-99); MONOCYTES % (AUTO) 9.2 % (1.0-10.0); PLATELET COUNT 331 K/UL (150-450); RED BLOOD COUNT 3.97 M/UL (4.20-5.40); RED CELL DISTRIBUTION WIDTH 17.3 % (11.6-14.8); WHITE BLOOD COUNT 12.2 K/UL (4.8-10.8)
[2018-07-10 06:56] LABS: ANION GAP 3 mmol/L (5-15); BLOOD UREA NITROGEN 58 mg/dL (7-18); CARBON DIOXIDE 40 MMOL/L (21-32); CHLORIDE 99 MMOL/L (98-107); CREATININE 1.4 MG/DL (0.55-1.30); PHOSPHORUS 5.2 MG/DL (2.5-4.9); POTASSIUM 4.8 MMOL/L (3.5-5.1); SODIUM 142 MMOL/L (136-145)
--- NOTE | 2018-07-10 07:20 | NUR ---
NURSE NOTES: Received patient from Srini. Patient in bed awake, agitated, vent dependent. On continuous GTF. Bilateral soft wrist restraints noted. Contact and bleach Isolation observed. Will continue plan of care
--- NOTE | 2018-07-10 07:30 | NUR ---
HAND-OFF: Report given to MARGY Servin. No acute distress noted.
--- NOTE | 2018-07-10 07:31 | NUR ---
NURSE NOTES: Received patient in bed. Vent dependent. On continuous GTF. Contact/bleach isolation observed. On bilateral soft wrist restraints. Will continue plan of care.
[2018-07-10 08:00] VITALS: BP 149/67
--- NOTE | 2018-07-10 10:44 | NUR ---
RESPIRATORY NOTE: Received pt. on current AC vent settings, airway secure and patent. SXN prn without adverse reactions. Began SIMV pressure support 12 weaning @ 1015, pt. is stable at this time, will continue to monitor.
[2018-07-10 12:00] VITALS: BP 146/73
--- NOTE | 2018-07-10 13:04 | Nephrology Progress Note ---
Assessment/Plan Problem List: (1) Acute renal failure Assessment: Cr lowering (2) Anuria (3) Acute respiratory failure Assessment: on vent (4) Dementia (5) Afib Assessment Cr lowering Urine out put rising Cr lowering other conditions: (1) Acute respiratory failure (2) Aspiration pneumonia (3) Acute encephalopathy (4) Pleural effusion (5) COPD (chronic obstructive pulmonary disease) (6) CAD (coronary artery disease) (7) Dementia Plan Labs OK Now trached and Pegged Cr lowering- Urine out put higher K and Phos and Mag as needed Anemia porter Adjust BP meds fu Lytes Gastric support per orders Subjective ROS Limited/Unobtainable: Yes Objective Objective Last 24 Hour Vital Signs Date Time Temp Pulse Resp B/P (MAP) Pulse Ox O2 Delivery O2 Flow Rate FiO2 07/10/18 12:00 35 07/10/18 12:00 Mechanical Ventilator 07/10/18 12:00 97.9 89 16 146/73 (97) 97 07/10/18 11:13 87 16 35 07/10/18 10:19 94 25 35 07/10/18 10:15 99 07/10/18 09:14 90 149/67 07/10/18 09:00 95 23 35 07/10/18 08:00 98.4 90 22 149/67 (94) 97 07/10/18 08:00 35 07/10/18 08:00 89 07/10/18 08:00 Mechanical Ventilator 07/10/18 06:59 87 18 35 07/10/18 05:33 83 17 35 07/10/18 04:00 97.0 85 16 148/66 (93) 99 07/10/18 04:00 100 07/10/18 04:00 Mechanical Ventilator 07/10/18 04:00 35 07/10/18 03:06 89 18 35 07/10/18 00:50 82 16 35 07/10/18 00:00 98.6 85 16 130/80 (97) 98 07/10/18 00:00 35 07/10/18 00:00 82 07/10/18 00:00 Mechanical Ventilator 07/09/18 22:59 83 17 35 07/09/18 20:49 84 19 35 07/09/18 20:00 97.8 85 17 143/73 (96) 98 07/09/18 20:00 Mechanical Ventilator 07/09/18 20:00 87 07/09/18 20:00 35 07/09/18 19:25 87 17 35 07/09/18 16:36 100 25 35 07/09/18 16:00 Mechanical Ventilator 07/09/18 16:00 35 07/09/18 16:00 98.4 101 15 146/57 (86) 95 07/09/18 15:40 2 07/09/18 15:29 80 18 35 Intake and Output 07/09/18 07/10/18 19:00 07:00 Intake Total 140 ml 695 ml Output Total 400 ml 700 ml Balance -260 ml -5 ml Free Water 30 ml 90 ml Tube Feeding 110 ml 605 ml Output Urine Total 400 ml 700 ml # Bowel Movements 3 3 Laboratory Tests 07/10/18 05:00: White Blood Count 12.2H, Red Blood Count 3.97L, Hemoglobin 9.2L, Hematocrit 29.6L, Mean Corpuscular Volume 75L, Mean Corpuscular Hemoglobin 23.0L, Mean Corpuscular Hemoglobin Concent 30.9L, Red Cell Distribution Width 17.3H, Platelet Count 331, Mean Platelet Volume 6.6, Neutrophils (%) (Auto) 47.0, Lymphocytes (%) (Auto) 38.5, Monocytes (%) (Auto) 9.2, Eosinophils (%) (Auto) 4.0H, Basophils (%) (Auto) 1.4, Sodium Level 142, Potassium Level 4.8, Chloride Level 99, Carbon Dioxide Level 40H, Anion Gap 3L, Blood Urea Nitrogen 58H, Creatinine 1.4H, Estimat Glomerular Filtration Rate , Glucose Level 113H, Calcium Level 10.0, Phosphorus Level 5.2H, Magnesium Level 1.6L Height (Feet): 5 Height (Inches): 4.00 Weight (Pounds): 120 General Appearance: mild distress Neck: stiff neck - trach Respiratory/Chest: decreased breath sounds Abdomen: distended Objective no change Kendrick Jimenez MD Jul 10, 2018 13:04
--- NOTE | 2018-07-10 13:52 | Cardiology Progress Note ---
Assessment/Plan Assessment/Plan COPD, congestive heart failure, atrial fibrillation sinus tachy agitation right lung collapse? anemia pleural effusion respirator failure tachy acute on chronic renal failure pleural effusion tele sinus vent support abx pulm rxn beta evelyn iv or via ngt prn amiod to 200 qd hemodynamically stable at the moment bp is high cr improved s/p trach and peg s/p thoracentesis duplex neg now off ivf on lasix dialy c diff neg possible gutierrez tx tomorrow Subjective ROS Limited/Unobtainable: Yes Subjective in sdu on vent in isolation Objective Last 24 Hour Vital Signs Date Time Temp Pulse Resp B/P (MAP) Pulse Ox O2 Delivery O2 Flow Rate FiO2 07/10/18 13:04 89 16 35 07/10/18 12:00 35 07/10/18 12:00 88 07/10/18 12:00 Mechanical Ventilator 07/10/18 12:00 97.9 89 16 146/73 (97) 97 07/10/18 11:13 87 16 35 07/10/18 10:19 94 25 35 07/10/18 10:15 99 07/10/18 09:14 90 149/67 07/10/18 09:00 95 23 35 07/10/18 08:00 98.4 90 22 149/67 (94) 97 07/10/18 08:00 35 07/10/18 08:00 89 07/10/18 08:00 Mechanical Ventilator 07/10/18 06:59 87 18 35 07/10/18 05:33 83 17 35 07/10/18 04:00 97.0 85 16 148/66 (93) 99 07/10/18 04:00 100 07/10/18 04:00 Mechanical Ventilator 07/10/18 04:00 35 07/10/18 03:06 89 18 35 07/10/18 00:50 82 16 35 07/10/18 00:00 98.6 85 16 130/80 (97) 98 07/10/18 00:00 35 07/10/18 00:00 82 07/10/18 00:00 Mechanical Ventilator 07/09/18 22:59 83 17 35 07/09/18 20:49 84 19 35 07/09/18 20:00 97.8 85 17 143/73 (96) 98 07/09/18 20:00 Mechanical Ventilator 07/09/18 20:00 87 07/09/18 20:00 35 07/09/18 19:25 87 17 35 07/09/18 16:36 100 25 35 07/09/18 16:00 Mechanical Ventilator 07/09/18 16:00 35 07/09/18 16:00 98.4 101 15 146/57 (86) 95 07/09/18 15:40 2 07/09/18 15:29 80 18 35 General Appearance: no apparent distress, on vent, patient on isolation Extremities: no swelling Intake and Output 07/09/18 07/10/18 19:00 07:00 Intake Total 140 ml 695 ml Output Total 400 ml 700 ml Balance -260 ml -5 ml Free Water 30 ml 90 ml Tube Feeding 110 ml 605 ml Output Urine Total 400 ml 700 ml # Bowel Movements 3 3 Laboratory Tests Test 07/10/18 05:00 White Blood Count 12.2 K/UL (4.8-10.8) H Red Blood Count 3.97 M/UL (4.20-5.40) L Hemoglobin 9.2 G/DL (12.0-16.0) L Hematocrit 29.6 % (37.0-47.0) L Mean Corpuscular Volume 75 FL (80-99) L Mean Corpuscular Hemoglobin 23.0 PG (27.0-31.0) L Mean Corpuscular Hemoglobin Concent 30.9 G/DL (32.0-36.0) L Red Cell Distribution Width 17.3 % (11.6-14.8) H Platelet Count 331 K/UL (150-450) Mean Platelet Volume 6.6 FL (6.5-10.1) Neutrophils (%) (Auto) 47.0 % (45.0-75.0) Lymphocytes (%) (Auto) 38.5 % (20.0-45.0) Monocytes (%) (Auto) 9.2 % (1.0-10.0) Eosinophils (%) (Auto) 4.0 % (0.0-3.0) H Basophils (%) (Auto) 1.4 % (0.0-2.0) Sodium Level 142 MMOL/L (136-145) Potassium Level 4.8 MMOL/L (3.5-5.1) Chloride Level 99 MMOL/L (98-107) Carbon Dioxide Level 40 MMOL/L (21-32) H Anion Gap 3 mmol/L (5-15) L Blood Urea Nitrogen 58 mg/dL (7-18) H Creatinine 1.4 MG/DL (0.55-1.30) H Estimat Glomerular Filtration Rate mL/min (>60) Glucose Level 113 MG/DL (74-106) H Calcium Level 10.0 MG/DL (8.5-10.1) Phosphorus Level 5.2 MG/DL (2.5-4.9) H Magnesium Level 1.6 MG/DL (1.8-2.4) L C-Reactive Protein, Quantitative Pending Microbiology Date/Time Source Procedure Growth Status 07/09/18 09:30 Stool Clostridium difficile Toxin Assay - Final Complete Geoffrey Sandhu MD Jul 10, 2018 13:52
--- NOTE | 2018-07-10 14:33 | NUR ---
RESPIRATORY NOTE: Placed pt. back on AC vent settings @1420, spontaneous VT< 300 ml. SIMV P.S. 12 tolerated for 5 hours, will continue to monitor
[2018-07-10 16:00] VITALS: BP 153/72
[2018-07-10] MEDS: Amiodarone 200mg tab GT SCH (18:33)
--- NOTE | 2018-07-10 19:35 | NUR ---
HAND-OFF: Report given to Esteban Park RN.
--- NOTE | 2018-07-10 19:40 | NUR ---
NURSE NOTES: Received Mrs Nowak in no acute distress. On bed at Semi lopes's position, on a p 200 bed. Awake, alert, follow commands but non verbal secondary to trach. Impulsive and tends to pull out devices. Pt on bilat soft wrist restraints. No respiratory distress, on the vent with settings of AC16 TV350 fiO2 .35 peep 5, secretions mod, white; sats 98-100%. Chest sounds diminished at bases with scattered rhonchi. GT patent; GTF with Vital AF running at 55ml/h with 0 residuals. No BM at this time. PIV site on right wrist area intact. Purewick in place and working properly; pts, buttocks/sacral area dry. Will continue to monitor
[2018-07-10 20:00] VITALS: BP 150/72
--- NOTE | 2018-07-10 20:19 | General Progress Note ---
Assessment/Plan Assessment/Plan Assessment - Resp failure, s/p trach - s/p PEG - C DIff diarrhea - failed vanco - COPD - CHF - PNA - Anemia - not candidate for colonoscopy at this time given poor health - Micocytosis is chronic, likely Thalassemia - may also have a component of Iron deficiency at this time Recommendations - Vent care - Elevated HOB - Monitor residuals - Pulmonary toilet - Dificid - Re check Iron panel - Iron IV trial - follow CBC Subjective Allergies: Coded Allergies: Mushroom (Verified Allergy, Severe, 05/28/18) MORPHINE (Unverified Allergy, Intermediate, Itching, 01/04/15) PENICILLINS (Unverified Allergy, Intermediate, Hives, 06/25/18) Tolerates cephalosporins and carbapenems CELECOXIB (Verified Allergy, Mild, 01/15/09) Subjective Seen in [facility] tolerating TF on Dificid Objective Last 24 Hour Vital Signs Date Time Temp Pulse Resp B/P (MAP) Pulse Ox O2 Delivery O2 Flow Rate FiO2 07/10/18 19:30 91 19 35 07/10/18 17:04 91 17 35 07/10/18 16:00 Mechanical Ventilator 07/10/18 16:00 99.9 89 19 153/72 (99) 97 07/10/18 15:32 93 07/10/18 15:06 89 18 35 07/10/18 14:20 35 07/10/18 14:19 86 17 35 07/10/18 13:04 89 16 35 07/10/18 12:00 35 07/10/18 12:00 88 07/10/18 12:00 Mechanical Ventilator 07/10/18 12:00 97.9 89 16 146/73 (97) 97 07/10/18 11:13 87 16 35 07/10/18 10:19 94 25 35 07/10/18 10:15 99 07/10/18 10:15 35 07/10/18 09:14 90 149/67 07/10/18 09:00 95 23 35 07/10/18 08:00 98.4 90 22 149/67 (94) 97 07/10/18 08:00 35 07/10/18 08:00 89 07/10/18 08:00 Mechanical Ventilator 07/10/18 06:59 87 18 35 07/10/18 05:33 83 17 35 3/10/19 04:00 97.0 85 16 148/66 (93) 99 07/10/18 04:00 100 07/10/18 04:00 Mechanical Ventilator 07/10/18 04:00 35 07/10/18 03:06 89 18 35 07/10/18 00:50 82 16 35 07/10/18 00:00 98.6 85 16 130/80 (97) 98 07/10/18 00:00 35 07/10/18 00:00 82 07/10/18 00:00 Mechanical Ventilator 07/09/18 22:59 83 17 35 07/09/18 20:49 84 19 35 Intake and Output 07/09/18 07/10/18 19:00 07:00 Intake Total 140 ml 695 ml Output Total 400 ml 700 ml Balance -260 ml -5 ml Free Water 30 ml 90 ml Tube Feeding 110 ml 605 ml Output Urine Total 400 ml 700 ml # Bowel Movements 3 3 Laboratory Tests 07/10/18 05:00: White Blood Count 12.2H, Red Blood Count 3.97L, Hemoglobin 9.2L, Hematocrit 29.6L, Mean Corpuscular Volume 75L, Mean Corpuscular Hemoglobin 23.0L, Mean Corpuscular Hemoglobin Concent 30.9L, Red Cell Distribution Width 17.3H, Platelet Count 331, Mean Platelet Volume 6.6, Neutrophils (%) (Auto) 47.0, Lymphocytes (%) (Auto) 38.5, Monocytes (%) (Auto) 9.2, Eosinophils (%) (Auto) 4.0H, Basophils (%) (Auto) 1.4, Sodium Level 142, Potassium Level 4.8, Chloride Level 99, Carbon Dioxide Level 40H, Anion Gap 3L, Blood Urea Nitrogen 58H, Creatinine 1.4H, Estimat Glomerular Filtration Rate , Glucose Level 113H, Calcium Level 10.0, Phosphorus Level 5.2H, Magnesium Level 1.6L, C-Reactive Protein, Quantitative 8.0H Height (Feet): 5 Height (Inches): 4.00 Weight (Pounds): 120 Objective Elderly WW NCAT, (+) trach Supple CTA RRR Soft, NT, ND, (+) GT No edema restrained Panchito Rahman MD Jul 10, 2018 20:19
--- NOTE | 2018-07-10 21:00 | NUR ---
NURSE NOTES: Dr Valderrama here and examined pt. Concerned about his increased secretions and WBC of 12.2 this AM. Ordered stat PCXR and wants to notify ID on the case since pt not on any antibiotics. Called the ID group(Dr Hernandes/Dr Harris)
--- NOTE | 2018-07-10 21:36 | General Progress Note ---
Assessment/Plan Status: progressing Assessment/Plan This is an 87-year-old female admitted with chronic obstructive pulmonary disease exacerbation, right lower lobe infiltrate/pneumonia with altered mental status and acute kidney injury. The patient will be admitted to [facility] with the following medical problems. 1. Chronic obstructive pulmonary disease exacerbation and pneumonia. The patient has been seen by Pulmonary. Infectious Disease has been consulted, pancultured. IV antibiotics per ID. Continue with BiPAP and suction p.r.n. Transition to Venturi-mask when stable. 2. Acute kidney injury. We will monitor I's and O's, gentle intravenous fluids. Repeat a BMP in a.m. Consider Nephrology consult. 3. History of chronic atrial fibrillation. Continue with amiodarone. The patient is in sinus rhythm at this time. 4. History of hypertension. Continue with amlodipine and hold for systolic blood pressure less than 110. 5. Altered mental status, most likely from above conditions. We will keep n.p.o. except for medications and start IV fluids. 6. DVT prophylaxis with heparin subcutaneous and SCDs. 7. The patient is Full Code per policy. We will discuss with the family. 8. hypokalmia 9. Anemia 10. CHf acute on chronic 11. leucocytosis 12. ARF? ATN 13. C dif positive 14. hyperkalemia 15. pleural effusion 16. S/p Tracheostomy 06/22/18 17, hypernatremia 18, pleural effusion 19. low grade fever and leukocytosis Plan: - continue respiratory support - aggressive pulmonary suction - HD on hold as patient putting out better urine and createnine is improving - antibiotics per ID - on oral vanco for one more day - am labs - weaning off vent per pulmonary - Gi prophylaxis with protonix iv 40 mg daily - s/p Kayexalate - norvasc added for better BP cotrol - s/p PEG discussed with nurse Contact isolation for C dif now in [facility] - transfuse one unit of PRBC on 06-28-18 - weaning trial - am labs - continue 10 day course of Difficid - heplock iv as tolerating tube feeding - am labs will dc to LTAC based on bed available family [facility] facilities if possible if not possible [facility] - repeat c dif toxin negative - will order labs for am, chest xray rule out infection discussed with nurse Subjective Date patient seen: Jul 10, 2018 ROS Limited/Unobtainable: Yes Allergies: Coded Allergies: Mushroom (Verified Allergy, Severe, 05/28/18) MORPHINE (Unverified Allergy, Intermediate, Itching, 01/04/15) PENICILLINS (Unverified Allergy, Intermediate, Hives, 06/25/18) Tolerates cephalosporins and carbapenems CELECOXIB (Verified Allergy, Mild, 01/15/09) Subjective patient was agitated and restraints ordered, on Difficid now as C dif not responding to oral Vanco, running low grade fever and congested Objective Last 24 Hour Vital Signs Date Time Temp Pulse Resp B/P (MAP) Pulse Ox O2 Delivery O2 Flow Rate FiO2 07/10/18 19:30 91 19 35 07/10/18 17:04 91 17 35 07/10/18 16:00 Mechanical Ventilator 07/10/18 16:00 99.9 89 19 153/72 (99) 97 07/10/18 15:32 93 07/10/18 15:06 89 18 35 07/10/18 14:20 35 07/10/18 14:19 86 17 35 07/10/18 13:04 89 16 35 07/10/18 12:00 35 07/10/18 12:00 88 07/10/18 12:00 Mechanical Ventilator 07/10/18 12:00 97.9 89 16 146/73 (97) 97 07/10/18 11:13 87 16 35 07/10/18 10:19 94 25 35 07/10/18 10:15 99 07/10/18 10:15 35 07/10/18 09:14 90 149/67 07/10/18 09:00 95 23 35 07/10/18 08:00 98.4 90 22 149/67 (94) 97 07/10/18 08:00 35 07/10/18 08:00 89 07/10/18 08:00 Mechanical Ventilator 07/10/18 06:59 87 18 35 07/10/18 05:33 83 17 35 07/10/18 04:00 97.0 85 16 148/66 (93) 99 07/10/18 04:00 100 07/10/18 04:00 Mechanical Ventilator 07/10/18 04:00 35 07/10/18 03:06 89 18 35 07/10/18 00:50 82 16 35 07/10/18 00:00 98.6 85 16 130/80 (97) 98 07/10/18 00:00 35 07/10/18 00:00 82 07/10/18 00:00 Mechanical Ventilator 07/09/18 22:59 83 17 35 Intake and Output 07/09/18 07/10/18 19:00 07:00 Intake Total 140 ml 695 ml Output Total 400 ml 700 ml Balance -260 ml -5 ml Free Water 30 ml 90 ml Tube Feeding 110 ml 605 ml Output Urine Total 400 ml 700 ml # Bowel Movements 3 3 Laboratory Tests 07/10/18 05:00: White Blood Count 12.2H, Red Blood Count 3.97L, Hemoglobin 9.2L, Hematocrit 29.6L, Mean Corpuscular Volume 75L, Mean Corpuscular Hemoglobin 23.0L, Mean Corpuscular Hemoglobin Concent 30.9L, Red Cell Distribution Width 17.3H, Platelet Count 331, Mean Platelet Volume 6.6, Neutrophils (%) (Auto) 47.0, Lymphocytes (%) (Auto) 38.5, Monocytes (%) (Auto) 9.2, Eosinophils (%) (Auto) 4.0H, Basophils (%) (Auto) 1.4, Sodium Level 142, Potassium Level 4.8, Chloride Level 99, Carbon Dioxide Level 40H, Anion Gap 3L, Blood Urea Nitrogen 58H, Creatinine 1.4H, Estimat Glomerular Filtration Rate , Glucose Level 113H, Calcium Level 10.0, Phosphorus Level 5.2H, Magnesium Level 1.6L, C-Reactive Protein, Quantitative 8.0H Height (Feet): 5 Height (Inches): 4.00 Weight (Pounds): 120 General Appearance: no apparent distress, alert EENT: PERRL/EOMI, pharynx normal Neck: non-tender, supple Cardiovascular: normal rate, regular rhythm, no gallop/murmur, no JVD Respiratory/Chest: rhonchi - bilaterally Abdomen: non tender, soft, no mass Extremities: non-tender, normal inspection, no calf tenderness Edema: no edema noted Arm (L), no edema noted Arm (R), no edema noted Leg (L), no edema noted Leg (R), no edema noted Pedal (L), no edema noted Pedal (R), no edema noted Generalized Neurologic: alert Skin: warm/dry Lymphatic: normal anterior cervical (L), normal anterior cervical (R), normal posterior cervical (L), normal posterior cervical (R), normal submandibular (L) , normal submandibular (R), normal supraclavicular (L), normal supraclavicular ( R), normal axillary (L), normal axillary (R), normal inguinal (L), normal inguinal (R), normal other Cruz Valderrama MD Jul 10, 2018 21:36
--- NOTE | 2018-07-10 21:51 | Pulmonology Progress Note ---
Assessment/Plan Assessment/Plan 1. Acute on chronic hypercapnic respiratory failure -intubated 06/02; extubated 06/10 -reintubated 06/17 -trach 06/23 shiley 8 2. R lung collapse, mucous plugging - resolved 3. Pulmonary edema 4. chronic obstructive asthma 5. Pneumonia 6. Hx afib 7. MRSA pna, recurrent fever and increased leukocytosis 8. ESBL E.coli pna 9. C.diff colitis 10. Pleural effusions -06/28 R thoracentesis; 600 cc Plan: -cont mechanical ventilatory support -consider downsizing trach to 6 nxt week -pulmonary hygiene with duonebs/suctioning q4 -monitor volumes, has effusions and edema, may need thora -repeat CXR wednesday -monitor renal function -abx per ID -PEG d/c planning LTACH vs subacute Subjective ROS Limited/Unobtainable: Yes Allergies: Coded Allergies: Mushroom (Verified Allergy, Severe, 05/28/18) MORPHINE (Unverified Allergy, Intermediate, Itching, 01/04/15) PENICILLINS (Unverified Allergy, Intermediate, Hives, 06/25/18) Tolerates cephalosporins and carbapenems CELECOXIB (Verified Allergy, Mild, 01/15/09) Subjective on the vent ' positive secretions and congestion no bleeding tolerating TF Objective Last 24 Hour Vital Signs Date Time Temp Pulse Resp B/P (MAP) Pulse Ox O2 Delivery O2 Flow Rate FiO2 07/10/18 19:30 91 19 35 07/10/18 17:04 91 17 35 07/10/18 16:00 Mechanical Ventilator 07/10/18 16:00 99.9 89 19 153/72 (99) 97 07/10/18 15:32 93 07/10/18 15:06 89 18 35 07/10/18 14:20 35 07/10/18 14:19 86 17 35 07/10/18 13:04 89 16 35 07/10/18 12:00 35 07/10/18 12:00 88 07/10/18 12:00 Mechanical Ventilator 07/10/18 12:00 97.9 89 16 146/73 (97) 97 07/10/18 11:13 87 16 35 07/10/18 10:19 94 25 35 07/10/18 10:15 99 07/10/18 10:15 35 07/10/18 09:14 90 149/67 07/10/18 09:00 95 23 35 07/10/18 08:00 98.4 90 22 149/67 (94) 97 07/10/18 08:00 35 07/10/18 08:00 89 07/10/18 08:00 Mechanical Ventilator 07/10/18 06:59 87 18 35 07/10/18 05:33 83 17 35 07/10/18 04:00 97.0 85 16 148/66 (93) 99 07/10/18 04:00 100 07/10/18 04:00 Mechanical Ventilator 07/10/18 04:00 35 07/10/18 03:06 89 18 35 07/10/18 00:50 82 16 35 07/10/18 00:00 98.6 85 16 130/80 (97) 98 07/10/18 00:00 35 07/10/18 00:00 82 07/10/18 00:00 Mechanical Ventilator 07/09/18 22:59 83 17 35 Intake and Output 07/09/18 07/10/18 19:00 07:00 Intake Total 140 ml 695 ml Output Total 400 ml 700 ml Balance -260 ml -5 ml Free Water 30 ml 90 ml Tube Feeding 110 ml 605 ml Output Urine Total 400 ml 700 ml # Bowel Movements 3 3 General Appearance: WD/WN Respiratory/Chest: rhonchi Cardiovascular: normal rate, regular rhythm Abdomen: soft, non tender, non distended Skin: no rash Neurologic/Psychiatric: disoriented Lymphatic: no neck adenopathy Microbiology Date/Time Source Procedure Growth Status 07/09/18 09:30 Stool Clostridium difficile Toxin Assay - Final Complete Laboratory Tests 07/10/18 05:00: White Blood Count 12.2H, Red Blood Count 3.97L, Hemoglobin 9.2L, Hematocrit 29.6L, Mean Corpuscular Volume 75L, Mean Corpuscular Hemoglobin 23.0L, Mean Corpuscular Hemoglobin Concent 30.9L, Red Cell Distribution Width 17.3H, Platelet Count 331, Mean Platelet Volume 6.6, Neutrophils (%) (Auto) 47.0, Lymphocytes (%) (Auto) 38.5, Monocytes (%) (Auto) 9.2, Eosinophils (%) (Auto) 4.0H, Basophils (%) (Auto) 1.4, Sodium Level 142, Potassium Level 4.8, Chloride Level 99, Carbon Dioxide Level 40H, Anion Gap 3L, Blood Urea Nitrogen 58H, Creatinine 1.4H, Estimat Glomerular Filtration Rate , Glucose Level 113H, Calcium Level 10.0, Phosphorus Level 5.2H, Magnesium Level 1.6L, C-Reactive Protein, Quantitative 8.0H Current Medications Medications (Trade) Dose Ordered Sig/Ann Route PRN Reason Start Time Stop Time Status Last Admin Dose Admin Acetaminophen (Tylenol) 650 mg Q4H PRN ORAL Mild Pain/Temp > 100.5 06/26/18 15:30 07/16/18 19:18 06/27/18 17:06 Albuterol/ Ipratropium (Albuterol/ Ipratropium) 3 ml Q4HRT PRN HHN Shortness of Breath 07/07/18 20:30 07/12/18 20:29 07/08/18 08:25 Amiodarone HCl (Cordarone) 200 mg DAILY@1800 GT 06/26/18 18:00 07/24/18 17:59 07/10/18 18:33 Amlodipine Besylate (Norvasc) 2.5 mg DAILY ORAL 06/27/18 09:00 07/25/18 08:59 07/10/18 09:14 Fidaxomicin (Dificid) 200 mg EVERY 12 HOURS ORAL 07/05/18 21:00 07/15/18 09:01 07/10/18 21:29 Furosemide (Lasix) 20 mg DAILY ORAL 07/05/18 10:15 08/04/18 10:14 07/10/18 09:15 Gentamicin Sulfate (Garamycin 0.3% Opt Soln) 1 drop EVERY 8 HOURS ONCE BOTH EYES 07/10/18 22:00 07/10/18 22:01 Haloperidol Lactate (Haldol) 5 mg Q6H PRN IM Agitation 07/06/18 12:00 08/05/18 11:59 07/06/18 13:01 Iron Sucrose 100 mg/Sodium Chloride 60 ml @ 240 mls/hr BEDTIME IV 07/11/18 09:00 07/14/18 21:14 UNV Metoprolol Tartrate (Lopressor) 5 mg Q6H PRN IVP HR > 125 06/26/18 18:00 07/16/18 17:59 07/08/18 21:03 Ondansetron HCl (Zofran) 4 mg Q6H PRN IVP Nausea & Vomiting 06/26/18 14:00 07/16/18 13:59 Quetiapine Fumarate (SEROquel) 12.5 mg QHS ORAL 06/29/18 21:00 07/29/18 20:59 07/10/18 21:29 Landy Lindsey DO Jul 10, 2018 21:51
[2018-07-10] MEDS ORDERED: Gentamicin 0.3% Opth Soln 5ml BOTH EYES ONE (22:00)
--- NOTE | 2018-07-10 22:00 | NUR ---
NURSE NOTES: Dr Harris called back; no new orders made except to call if pt develops fever. PCXR done
--- NOTE | 2018-07-10 23:46 | General Progress Note ---
Assessment/Plan Problem List: (1) encephalopathy due to toxin (2) Dementia ICD Codes: F03.90 - Unspecified dementia without behavioral disturbance SNOMED: 93281013 Assessment/Plan Haldol Im on board cont restraints. dw nurse recommend palliative care Subjective Neurologic/Psychiatric: Reports: anxiety Allergies: Coded Allergies: Mushroom (Verified Allergy, Severe, 05/28/18) MORPHINE (Unverified Allergy, Intermediate, Itching, 01/04/15) PENICILLINS (Unverified Allergy, Intermediate, Hives, 06/25/18) Tolerates cephalosporins and carbapenems CELECOXIB (Verified Allergy, Mild, 01/15/09) Subjective confused agitated Objective Last 24 Hour Vital Signs Date Time Temp Pulse Resp B/P (MAP) Pulse Ox O2 Delivery O2 Flow Rate FiO2 07/10/18 23:30 89 16 35 07/10/18 21:30 90 18 35 07/10/18 20:00 35 07/10/18 20:00 98.2 93 18 150/72 (98) 98 07/10/18 20:00 Mechanical Ventilator 07/10/18 20:00 91 07/10/18 19:30 91 19 35 07/10/18 17:04 91 17 35 07/10/18 16:00 Mechanical Ventilator 07/10/18 16:00 99.9 89 19 153/72 (99) 97 07/10/18 15:32 93 07/10/18 15:06 89 18 35 07/10/18 14:20 35 07/10/18 14:19 86 17 35 07/10/18 13:04 89 16 35 07/10/18 12:00 35 07/10/18 12:00 88 07/10/18 12:00 Mechanical Ventilator 07/10/18 12:00 97.9 89 16 146/73 (97) 97 07/10/18 11:13 87 16 35 07/10/18 10:19 94 25 35 07/10/18 10:15 99 07/10/18 10:15 35 07/10/18 09:14 90 149/67 07/10/18 09:00 95 23 35 07/10/18 08:00 98.4 90 22 149/67 (94) 97 07/10/18 08:00 35 07/10/18 08:00 89 07/10/18 08:00 Mechanical Ventilator 07/10/18 06:59 87 18 35 07/10/18 05:33 83 17 35 07/10/18 04:00 97.0 85 16 148/66 (93) 99 07/10/18 04:00 100 07/10/18 04:00 Mechanical Ventilator 07/10/18 04:00 35 07/10/18 03:06 89 18 35 07/10/18 00:50 82 16 35 07/10/18 00:00 98.6 85 16 130/80 (97) 98 07/10/18 00:00 35 07/10/18 00:00 82 07/10/18 00:00 Mechanical Ventilator Intake and Output 07/09/18 07/10/18 19:00 07:00 Intake Total 140 ml 695 ml Output Total 400 ml 700 ml Balance -260 ml -5 ml Free Water 30 ml 90 ml Tube Feeding 110 ml 605 ml Output Urine Total 400 ml 700 ml # Bowel Movements 3 3 Laboratory Tests 07/10/18 05:00: White Blood Count 12.2H, Red Blood Count 3.97L, Hemoglobin 9.2L, Hematocrit 29.6L, Mean Corpuscular Volume 75L, Mean Corpuscular Hemoglobin 23.0L, Mean Corpuscular Hemoglobin Concent 30.9L, Red Cell Distribution Width 17.3H, Platelet Count 331, Mean Platelet Volume 6.6, Neutrophils (%) (Auto) 47.0, Lymphocytes (%) (Auto) 38.5, Monocytes (%) (Auto) 9.2, Eosinophils (%) (Auto) 4.0H, Basophils (%) (Auto) 1.4, Sodium Level 142, Potassium Level 4.8, Chloride Level 99, Carbon Dioxide Level 40H, Anion Gap 3L, Blood Urea Nitrogen 58H, Creatinine 1.4H, Estimat Glomerular Filtration Rate , Glucose Level 113H, Calcium Level 10.0, Phosphorus Level 5.2H, Magnesium Level 1.6L, C-Reactive Protein, Quantitative 8.0H Height (Feet): 5 Height (Inches): 4.00 Weight (Pounds): 120 General Appearance: alert, confused, agitated Liz Lo MD Jul 10, 2018 23:46
[2018-07-11] VITALS: BP 128/78
--- NOTE | 2018-07-11 | NUR ---
NURSE NOTES: Sleeping with HOB elevated >45 degrees. VSS, afebrile, no distress.
[2018-07-11 04:00] VITALS: BP 145/63
--- NOTE | 2018-07-11 04:00 | NUR ---
NURSE NOTES: No BM; complete bed bath done. GT site dressing changed. Optifoam on sacral area intact. IV site intact. Afebrile;BP stable.
[2018-07-11 04:46] LABS: EOSINOPHILS % (AUTO) 4.2 % (0.0-3.0); HEMATOCRIT 28.1 % (37.0-47.0); HEMOGLOBIN 8.7 G/DL (12.0-16.0); LYMPHOCYTES % (AUTO) 27.3 % (20.0-45.0); MEAN CORPUSCULAR VOLUME 74 FL (80-99); MONOCYTES % (AUTO) 10.2 % (1.0-10.0); NEUTROPHILS % (AUTO) 57.3 % (45.0-75.0); PLATELET COUNT 313 K/UL (150-450); RED BLOOD COUNT 3.81 M/UL (4.20-5.40); RED CELL DISTRIBUTION WIDTH 17.4 % (11.6-14.8); WHITE BLOOD COUNT 9.4 K/UL (4.8-10.8)
[2018-07-11 05:30] LABS: % IRON SATURATION 17 % (15-50); IRON 23 ug/dL (50-175); TOTAL IRON BINDING CAPACITY 139 ug/dL (250-450)
[2018-07-11 05:34] LABS: ALANINE AMINOTRANSFERASE 20 U/L (12-78); ALBUMIN 2.6 G/DL (3.4-5.0); ALBUMIN/GLOBULIN RATIO 0.5 (1.0-2.7); ALKALINE PHOSPHATASE 81 U/L (46-116); ANION GAP 5 mmol/L (5-15); ASPARTATE AMINO TRANSFERASE 16 U/L (15-37); BILIRUBIN,TOTAL 0.2 MG/DL (0.2-1.0); BLOOD UREA NITROGEN 65 mg/dL (7-18); CALCIUM 9.9 MG/DL (8.5-10.1); CARBON DIOXIDE 37 MMOL/L (21-32); CHLORIDE 99 MMOL/L (98-107); CREATININE 1.4 MG/DL (0.55-1.30); PHOSPHORUS 5.3 MG/DL (2.5-4.9); POTASSIUM 3.9 MMOL/L (3.5-5.1); SODIUM 141 MMOL/L (136-145)
--- NOTE | 2018-07-11 07:03 | NUR ---
HAND-OFF: Report given to Gael Lozada RN.
[2018-07-11 08:00] VITALS: BP 132/62
[2018-07-11] MEDS ORDERED: Iron Sucrose 100 MG in NS 55 ML IV SCH (09:00)
--- NOTE | 2018-07-11 10:30 | Diagnostic Imaging Report ---
Indication: Shortness of breath Technique: One view of the chest Comparison: 07/08/2018 Findings: Patient is rotated to the right. There is again demonstrated bilateral interstitial ingestion, appears similar in extent to the previous exam. No definite effusions. The heart size is borderline enlarged. Tracheostomy again demonstrated. Impression: Unchanged, over 2 days, findings as above.
[2018-07-11 12:00] VITALS: BP 138/70
--- NOTE | 2018-07-11 13:30 | NUR ---
NURSE NOTES: Dr. De Souza at bedside. Informed regarding ABG results while patient is on SIMV mode. No new order at this time.
--- NOTE | 2018-07-11 13:35 | NUR ---
NURSE NOTES: Dr. De Souza said that patient is OK for discharge.
--- NOTE | 2018-07-11 14:01 | Infectious Diseases Prog Note ---
Assessment/Plan Assessment/Plan 87 yo feamle with PMHx of COPD, HTN, and A.fib sent to the ED from her halfway for SOB. Sepsis;improving - Likely PNA; s/p Rx 07/10 CXR: There is again demonstrated bilateral interstitial congestion, appears similar in extent to the previous exam. No definite effusions 06/21 CXR: Slightly increased right lung opacity, suspect increasing pleural fluid.Increased retrocardiac consolidation 06/17 CXR: Increasing right lung opacity, likely representing decreasing pleural fluid but may also represent increasing parenchymal consolidation 06/15 CXR: Increasing opacification right hemithorax, likely reflecting increasing pleural fluid but may also reflect increasing pulmonary parenchymal consolidation 06/14 CXR: Diffuse right lung hazy opacity appears similar to the prior exam. 06/12 CXR: : Hazy opacification of the right hemithorax, likely reflecting pleural fluid, is unchanged. 05/28/18 CXR with atalectasis vs consolidation in the right side. 06/01/18 CXR - Extensive right hemithorax opacification UA (-) sputum cx 06/15: MRSA (likely a colonizer at this point), ESBL E.coli Sputum Cx 05/28/18 - MRSA (Inf Neg) Urine legionella (-) Acute respiratory failure s/p intubation 06/16 -s/p trach 06/23 R>L pleural effusion; exudate -FLuid pH 8, protein 3.5 (serum 6.5), LDH 111 (serum 203: cx NTD -06/28 SP Successful ultrasound-guided R thoracentesis, yielding 600 milliliters of fluid Cdiff colitis Diarrhea; now improving on Dificid -06/19 Cdif toxin a/b + R lung collapse: -06/16 CXR: Complete opacification of the right hemithorax. Probably due to complete atelectasis of the right lung, with evidence of abrupt occlusion of the right mainstem bronchus. Given findings on prior chest radiographs, there is probably significant component of pleural effusion as well. Positive blood Cx - Likely contaminant BCx 05/28/18 - CoNS BCX 05/30/18 - NGTD Leukocytosis , recurrent mild- SP Fever, SP COPD CAD A. fib s/p PEG 06/24 PLAN -Continue Fidaxomicin 200mg bid #/ -3/ SP PO Vancomycin # -06/26 SP Ertapenem #6 -06/20 SP Meropenem #5 -06/17 SP IV Vancomycin #21 -2/ SP Cefepime #20 - Monitor CBC and Temps Subjective Allergies: Coded Allergies: Mushroom (Verified Allergy, Severe, 05/28/18) MORPHINE (Unverified Allergy, Intermediate, Itching, 01/04/15) PENICILLINS (Unverified Allergy, Intermediate, Hives, 06/25/18) Tolerates cephalosporins and carbapenems CELECOXIB (Verified Allergy, Mild, 01/15/09) Subjective afebrile no leukocytosis rectal tube out; stool soft Objective Vital Signs Last 24 Hour Vital Signs Date Time Temp Pulse Resp B/P (MAP) Pulse Ox O2 Delivery O2 Flow Rate FiO2 07/11/18 12:57 74 16 35 07/11/18 12:15 35 07/11/18 12:02 77 07/11/18 12:00 Mechanical Ventilator 07/11/18 12:00 97.7 84 15 138/70 (92) 95 07/11/18 12:00 35 07/11/18 10:45 35 07/11/18 10:35 88 16 35 07/11/18 09:53 35 07/11/18 09:50 88 22 35 07/11/18 09:29 99 07/11/18 09:23 85 16 35 07/11/18 09:07 83 132/62 07/11/18 08:00 99.2 83 16 132/62 (85) 98 07/11/18 08:00 78 07/11/18 08:00 Mechanical Ventilator 07/11/18 08:00 35 07/11/18 07:14 83 16 35 07/11/18 05:30 98 17 35 07/11/18 04:00 Mechanical Ventilator 07/11/18 04:00 90 07/11/18 04:00 98.4 87 19 145/63 (90) 99 07/11/18 04:00 35 07/11/18 03:30 88 17 35 07/11/18 02:00 94 07/11/18 01:30 87 18 35 07/11/18 00:00 Mechanical Ventilator 07/11/18 00:00 98.6 92 20 128/78 (95) 97 07/11/18 00:00 35 07/10/18 23:30 89 16 35 07/10/18 21:30 90 18 35 07/10/18 20:00 35 07/10/18 20:00 98.2 93 18 150/72 (98) 98 07/10/18 20:00 Mechanical Ventilator 07/10/18 20:00 91 07/10/18 19:30 91 19 35 07/10/18 17:04 91 17 35 07/10/18 16:00 Mechanical Ventilator 07/10/18 16:00 99.9 89 19 153/72 (99) 97 07/10/18 15:32 93 07/10/18 15:06 89 18 35 07/10/18 14:20 35 07/10/18 14:19 35 07/10/18 14:19 86 17 35 Height (Feet): 5 Height (Inches): 4.00 Weight (Pounds): 120 Objective General Appearance: no apparent distress, Neck: supple, trach in place Cardiovascular: normal rate Respiratory/Chest: decreased BS at bases Abdomen: normal bowel sounds, non tender, soft; Peg in place rectal tube in place Extremities: trace edema Microbiology Date/Time Source Procedure Growth Status 07/09/18 09:30 Stool Clostridium difficile Toxin Assay - Final Complete Laboratory Tests Test 07/11/18 03:25 07/11/18 13:13 White Blood Count 9.4 K/UL (4.8-10.8) Red Blood Count 3.81 M/UL (4.20-5.40) L Hemoglobin 8.7 G/DL (12.0-16.0) L Hematocrit 28.1 % (37.0-47.0) L Mean Corpuscular Volume 74 FL (80-99) L Mean Corpuscular Hemoglobin 22.8 PG (27.0-31.0) L Mean Corpuscular Hemoglobin Concent 30.9 G/DL (32.0-36.0) L Red Cell Distribution Width 17.4 % (11.6-14.8) H Platelet Count 313 K/UL (150-450) Mean Platelet Volume 6.9 FL (6.5-10.1) Neutrophils (%) (Auto) 57.3 % (45.0-75.0) Lymphocytes (%) (Auto) 27.3 % (20.0-45.0) Monocytes (%) (Auto) 10.2 % (1.0-10.0) H Eosinophils (%) (Auto) 4.2 % (0.0-3.0) H Basophils (%) (Auto) 1.0 % (0.0-2.0) Sodium Level 141 MMOL/L (136-145) Potassium Level 3.9 MMOL/L (3.5-5.1) Chloride Level 99 MMOL/L (98-107) Carbon Dioxide Level 37 MMOL/L (21-32) H Anion Gap 5 mmol/L (5-15) Blood Urea Nitrogen 65 mg/dL (7-18) H Creatinine 1.4 MG/DL (0.55-1.30) H Estimat Glomerular Filtration Rate mL/min (>60) Glucose Level 129 MG/DL (74-106) H Uric Acid 5.1 MG/DL (2.6-7.2) Calcium Level 9.9 MG/DL (8.5-10.1) Phosphorus Level 5.3 MG/DL (2.5-4.9) H Magnesium Level 1.6 MG/DL (1.8-2.4) L Iron Level 23 ug/dL (50-175) L Total Iron Binding Capacity 139 ug/dL (250-450) L Percent Iron Saturation 17 % (15-50) Unsaturated Iron Binding 116 ug/dL (112-346) Total Bilirubin 0.2 MG/DL (0.2-1.0) Aspartate Amino Transf (AST/SGOT) 16 U/L (15-37) Alanine Aminotransferase (ALT/SGPT) 20 U/L (12-78) Alkaline Phosphatase 81 U/L (46-116) Pro-B-Type Natriuretic Peptide 587 pg/mL (0-125) H Total Protein 7.4 G/DL (6.4-8.2) Albumin 2.6 G/DL (3.4-5.0) L Globulin 4.8 g/dL Albumin/Globulin Ratio 0.5 (1.0-2.7) L Arterial Blood pH 7.462 (7.350-7.450) Arterial Blood Partial Pressure CO2 58.1 mmHg (35.0-45.0) *H Arterial Blood Partial Pressure O2 49.0 mmHg (75.0-100.0) Arterial Blood HCO3 40.6 mmol/L (22.0-26.0) *H Arterial Blood Oxygen Saturation 85.9 % (95-100) *L Arterial Blood Base Excess 14.8 (-2-2) *H David Test Positive Current Medications Medications (Trade) Dose Ordered Sig/Ann Route PRN Reason Start Time Stop Time Status Last Admin Dose Admin Acetaminophen (Tylenol) 650 mg Q4H PRN ORAL Mild Pain/Temp > 100.5 06/26/18 15:30 07/16/18 19:18 06/27/18 17:06 Albuterol/ Ipratropium (Albuterol/ Ipratropium) 3 ml Q4HRT PRN HHN Shortness of Breath 07/07/18 20:30 07/12/18 20:29 07/08/18 08:25 Amiodarone HCl (Cordarone) 200 mg DAILY@1800 GT 06/26/18 18:00 07/24/18 17:59 07/10/18 18:33 Amlodipine Besylate (Norvasc) 2.5 mg DAILY ORAL 06/27/18 09:00 07/25/18 08:59 07/11/18 09:07 Fidaxomicin (Dificid) 200 mg EVERY 12 HOURS ORAL 07/05/18 21:00 07/15/18 09:01 07/11/18 09:06 Furosemide (Lasix) 20 mg DAILY ORAL 07/05/18 10:15 08/04/18 10:14 07/11/18 09:06 Haloperidol Lactate (Haldol) 5 mg Q6H PRN IM Agitation 07/06/18 12:00 08/05/18 11:59 07/06/18 13:01 Iron Sucrose 100 mg/Sodium Chloride 60 ml @ 240 mls/hr BEDTIME IV 07/11/18 09:00 07/14/18 21:14 07/11/18 09:10 Metoprolol Tartrate (Lopressor) 5 mg Q6H PRN IVP HR > 125 06/26/18 18:00 07/16/18 17:59 07/08/18 21:03 Ondansetron HCl (Zofran) 4 mg Q6H PRN IVP Nausea & Vomiting 06/26/18 14:00 07/16/18 13:59 Quetiapine Fumarate (SEROquel) 12.5 mg QHS ORAL 06/29/18 21:00 07/29/18 20:59 07/10/18 21:29 Natty Hernandes M.D. Jul 11, 2018 14:01
--- NOTE | 2018-07-11 14:08 | Pulmonology Progress Note ---
Assessment/Plan Assessment/Plan Problem List: 1. Acute on chronic hypercapnic respiratory failure -intubated 06/02; extubated 06/10 -reintubated 06/17 -trach 06/23 shiley 8 2. R lung collapse, mucous plugging - resolved 3. Pulmonary edema 4. chronic obstructive asthma 5. Pneumonia 6. Hx afib 7. MRSA pna, recurrent fever and increased leukocytosis 8. ESBL E.coli pna 9. C.diff colitis 10. Pleural effusions -06/28 R thoracentesis; 600 cc Plan: -cont mechanical ventilatory support -SIMV trials for weaning with PS 12 -consider downsizing trach to 6 -pulmonary hygiene with duonebs/suctioning q4 -monitor volumes, has effusions and edema, lasix 20 mg PO daily -monitor renal function -abx per ID -PEG done -seroquel 12.5 mg qhs d/c planning LTACH, clear from pulmonary perspective Case d/w Dr. Valderrama Subjective ROS Limited/Unobtainable: Yes Allergies: Coded Allergies: Mushroom (Verified Allergy, Severe, 05/28/18) MORPHINE (Unverified Allergy, Intermediate, Itching, 01/04/15) PENICILLINS (Unverified Allergy, Intermediate, Hives, 06/25/18) Tolerates cephalosporins and carbapenems CELECOXIB (Verified Allergy, Mild, 01/15/09) Objective Last 24 Hour Vital Signs Date Time Temp Pulse Resp B/P (MAP) Pulse Ox O2 Delivery O2 Flow Rate FiO2 07/11/18 12:57 74 16 35 07/11/18 12:15 35 07/11/18 12:02 77 07/11/18 12:00 Mechanical Ventilator 07/11/18 12:00 97.7 84 15 138/70 (92) 95 07/11/18 12:00 35 07/11/18 10:45 35 07/11/18 10:35 88 16 35 07/11/18 09:53 35 07/11/18 09:50 88 22 35 07/11/18 09:29 99 07/11/18 09:23 85 16 35 07/11/18 09:07 83 132/62 07/11/18 08:00 99.2 83 16 132/62 (85) 98 07/11/18 08:00 78 07/11/18 08:00 Mechanical Ventilator 07/11/18 08:00 35 07/11/18 07:14 83 16 35 07/11/18 05:30 98 17 35 07/11/18 04:00 Mechanical Ventilator 07/11/18 04:00 90 07/11/18 04:00 98.4 87 19 145/63 (90) 99 07/11/18 04:00 35 07/11/18 03:30 88 17 35 07/11/18 02:00 94 07/11/18 01:30 87 18 35 07/11/18 00:00 Mechanical Ventilator 07/11/18 00:00 98.6 92 20 128/78 (95) 97 07/11/18 00:00 35 07/10/18 23:30 89 16 35 07/10/18 21:30 90 18 35 07/10/18 20:00 35 07/10/18 20:00 98.2 93 18 150/72 (98) 98 07/10/18 20:00 Mechanical Ventilator 07/10/18 20:00 91 07/10/18 19:30 91 19 35 07/10/18 17:04 91 17 35 07/10/18 16:00 Mechanical Ventilator 07/10/18 16:00 99.9 89 19 153/72 (99) 97 07/10/18 15:32 93 07/10/18 15:06 89 18 35 07/10/18 14:20 35 07/10/18 14:19 35 07/10/18 14:19 86 17 35 Intake and Output 07/10/18 07/11/18 19:00 07:00 Intake Total 200 ml 650 ml Output Total 1250 ml 800 ml Balance -1050 ml -150 ml Free Water 35 ml Tube Feeding 165 ml 550 ml Other 100 ml Output Urine Total 1250 ml 800 ml # Bowel Movements 4 General Appearance: no acute distress HEENT: mucous membranes moist Respiratory/Chest: crackles/rales Cardiovascular: regular rhythm Abdomen: soft, non tender, no organomegaly Extremities: no edema Microbiology Date/Time Source Procedure Growth Status 07/09/18 09:30 Stool Clostridium difficile Toxin Assay - Final Complete Laboratory Tests 07/11/18 03:25: White Blood Count 9.4, Red Blood Count 3.81L, Hemoglobin 8.7L, Hematocrit 28.1L , Mean Corpuscular Volume 74L, Mean Corpuscular Hemoglobin 22.8L, Mean Corpuscular Hemoglobin Concent 30.9L, Red Cell Distribution Width 17.4H, Platelet Count 313, Mean Platelet Volume 6.9, Neutrophils (%) (Auto) 57.3, Lymphocytes (%) (Auto) 27.3, Monocytes (%) (Auto) 10.2H, Eosinophils (%) (Auto) 4.2H, Basophils (%) (Auto) 1.0, Sodium Level 141, Potassium Level 3.9, Chloride Level 99, Carbon Dioxide Level 37H, Anion Gap 5, Blood Urea Nitrogen 65H, Creatinine 1.4H, Estimat Glomerular Filtration Rate , Glucose Level 129H, Uric Acid 5.1, Calcium Level 9.9, Phosphorus Level 5.3H, Magnesium Level 1.6L, Iron Level 23L, Total Iron Binding Capacity 139L, Percent Iron Saturation 17, Unsaturated Iron Binding 116, Total Bilirubin 0.2, Aspartate Amino Transf (AST/ SGOT) 16, Alanine Aminotransferase (ALT/SGPT) 20, Alkaline Phosphatase 81, Pro-B -Type Natriuretic Peptide 587H, Total Protein 7.4, Albumin 2.6L, Globulin 4.8, Albumin/Globulin Ratio 0.5L 07/11/18 13:13: Arterial Blood pH 7.462H, Arterial Blood Partial Pressure CO2 58.1*H, Arterial Blood Partial Pressure O2 49.0*L, Arterial Blood HCO3 40.6*H, Arterial Blood Oxygen Saturation 85.9*L, Arterial Blood Base Excess 14.8*H, David Test Positive Current Medications Medications (Trade) Dose Ordered Sig/Ann Route PRN Reason Start Time Stop Time Status Last Admin Dose Admin Acetaminophen (Tylenol) 650 mg Q4H PRN ORAL Mild Pain/Temp > 100.5 06/26/18 15:30 07/16/18 19:18 06/27/18 17:06 Albuterol/ Ipratropium (Albuterol/ Ipratropium) 3 ml Q4HRT PRN HHN Shortness of Breath 07/07/18 20:30 07/12/18 20:29 07/08/18 08:25 Amiodarone HCl (Cordarone) 200 mg DAILY@1800 GT 06/26/18 18:00 07/24/18 17:59 07/10/18 18:33 Amlodipine Besylate (Norvasc) 2.5 mg DAILY ORAL 06/27/18 09:00 07/25/18 08:59 07/11/18 09:07 Fidaxomicin (Dificid) 200 mg EVERY 12 HOURS ORAL 07/05/18 21:00 07/15/18 09:01 07/11/18 09:06 Furosemide (Lasix) 20 mg DAILY ORAL 07/05/18 10:15 08/04/18 10:14 07/11/18 09:06 Haloperidol Lactate (Haldol) 5 mg Q6H PRN IM Agitation 07/06/18 12:00 08/05/18 11:59 07/06/18 13:01 Iron Sucrose 100 mg/Sodium Chloride 60 ml @ 240 mls/hr BEDTIME IV 07/11/18 09:00 07/14/18 21:14 07/11/18 09:10 Metoprolol Tartrate (Lopressor) 5 mg Q6H PRN IVP HR > 125 06/26/18 18:00 07/16/18 17:59 07/08/18 21:03 Ondansetron HCl (Zofran) 4 mg Q6H PRN IVP Nausea & Vomiting 06/26/18 14:00 07/16/18 13:59 Quetiapine Fumarate (SEROquel) 12.5 mg QHS ORAL 06/29/18 21:00 07/29/18 20:59 07/10/18 21:29 Varinder De Souza MD Jul 11, 2018 14:08
--- NOTE | 2018-07-11 14:39 | NUR ---
Social Service Note Patient accepted at [facility] ([facility]), room 214-A. Nurse to call report to [phone]. Ambulance scheduled with [employer] [phone], pepper picker [phone]. SW informed Dr. Valderrama and primary nurse. Patient shemar Motley notified [phone] and agreed to dc plan.
--- NOTE | 2018-07-11 15:06 | NUR ---
NURSE NOTES: Informed patient's ARMONDA/Tolu Wang via telephone regarding discharge to [facility], transportation sweet pickle maker at 1800.
--- NOTE | 2018-07-11 15:59 | Nephrology Progress Note ---
Assessment/Plan Problem List: (1) Acute renal failure Assessment: Cr lowering (2) Anuria (3) Acute respiratory failure Assessment: on vent (4) Dementia (5) Afib Assessment Cr lowering Urine out put rising Cr lowering other conditions: (1) Acute respiratory failure (2) Aspiration pneumonia (3) Acute encephalopathy (4) Pleural effusion (5) COPD (chronic obstructive pulmonary disease) (6) CAD (coronary artery disease) (7) Dementia Plan Labs OK Now trached and Pegged Cr lowering- Urine out put higher K and Phos and Mag as needed Anemia porter Adjust BP meds fu Lytes Gastric support per orders Subjective ROS Limited/Unobtainable: Yes Objective Objective Last 24 Hour Vital Signs Date Time Temp Pulse Resp B/P (MAP) Pulse Ox O2 Delivery O2 Flow Rate FiO2 07/11/18 15:09 72 16 35 07/11/18 14:00 35 07/11/18 13:59 35 07/11/18 12:57 74 16 35 07/11/18 12:15 35 07/11/18 12:02 77 07/11/18 12:00 Mechanical Ventilator 07/11/18 12:00 97.7 84 15 138/70 (92) 95 07/11/18 12:00 35 07/11/18 10:45 35 07/11/18 10:35 88 16 35 07/11/18 09:53 35 07/11/18 09:50 88 22 35 07/11/18 09:29 99 07/11/18 09:23 85 16 35 07/11/18 09:07 83 132/62 07/11/18 08:00 99.2 83 16 132/62 (85) 98 07/11/18 08:00 78 07/11/18 08:00 Mechanical Ventilator 07/11/18 08:00 35 07/11/18 07:14 83 16 35 07/11/18 05:30 98 17 35 07/11/18 04:00 Mechanical Ventilator 07/11/18 04:00 90 07/11/18 04:00 98.4 87 19 145/63 (90) 99 07/11/18 04:00 35 07/11/18 03:30 88 17 35 07/11/18 02:00 94 07/11/18 01:30 87 18 35 07/11/18 00:00 Mechanical Ventilator 07/11/18 00:00 98.6 92 20 128/78 (95) 97 07/11/18 00:00 35 07/10/18 23:30 89 16 35 07/10/18 21:30 90 18 35 07/10/18 20:00 35 07/10/18 20:00 98.2 93 18 150/72 (98) 98 07/10/18 20:00 Mechanical Ventilator 07/10/18 20:00 91 07/10/18 19:30 91 19 35 07/10/18 17:04 91 17 35 07/10/18 16:00 Mechanical Ventilator 07/10/18 16:00 99.9 89 19 153/72 (99) 97 Intake and Output 07/10/18 07/11/18 19:00 07:00 Intake Total 200 ml 650 ml Output Total 1250 ml 800 ml Balance -1050 ml -150 ml Free Water 35 ml Tube Feeding 165 ml 550 ml Other 100 ml Output Urine Total 1250 ml 800 ml # Bowel Movements 4 Laboratory Tests 07/11/18 03:25: White Blood Count 9.4, Red Blood Count 3.81L, Hemoglobin 8.7L, Hematocrit 28.1L , Mean Corpuscular Volume 74L, Mean Corpuscular Hemoglobin 22.8L, Mean Corpuscular Hemoglobin Concent 30.9L, Red Cell Distribution Width 17.4H, Platelet Count 313, Mean Platelet Volume 6.9, Neutrophils (%) (Auto) 57.3, Lymphocytes (%) (Auto) 27.3, Monocytes (%) (Auto) 10.2H, Eosinophils (%) (Auto) 4.2H, Basophils (%) (Auto) 1.0, Sodium Level 141, Potassium Level 3.9, Chloride Level 99, Carbon Dioxide Level 37H, Anion Gap 5, Blood Urea Nitrogen 65H, Creatinine 1.4H, Estimat Glomerular Filtration Rate , Glucose Level 129H, Uric Acid 5.1, Calcium Level 9.9, Phosphorus Level 5.3H, Magnesium Level 1.6L, Iron Level 23L, Total Iron Binding Capacity 139L, Percent Iron Saturation 17, Unsaturated Iron Binding 116, Total Bilirubin 0.2, Aspartate Amino Transf (AST/ SGOT) 16, Alanine Aminotransferase (ALT/SGPT) 20, Alkaline Phosphatase 81, Pro-B -Type Natriuretic Peptide 587H, Total Protein 7.4, Albumin 2.6L, Globulin 4.8, Albumin/Globulin Ratio 0.5L 07/11/18 13:13: Arterial Blood pH 7.462H, Arterial Blood Partial Pressure CO2 58.1*H, Arterial Blood Partial Pressure O2 49.0*L, Arterial Blood HCO3 40.6*H, Arterial Blood Oxygen Saturation 85.9*L, Arterial Blood Base Excess 14.8*H, David Test Positive Height (Feet): 5 Height (Inches): 4.00 Weight (Pounds): 120 General Appearance: no apparent distress Cardiovascular: normal rate Respiratory/Chest: decreased breath sounds Abdomen: soft Objective no change Kendrick Jimenez MD Jul 11, 2018 15:59
[2018-07-11 16:00] VITALS: BP 140/78
[2018-07-11] MEDS: Amiodarone 200mg tab GT SCH (17:37)
--- NOTE | 2018-07-11 17:58 | NUR ---
NURSE NOTES: Telephone report given to MARGY Moreno of [facility] [phone]. Patient is going to room 214 bed A.
--- NOTE | 2018-07-11 19:21 | Cardiology Progress Note ---
Assessment/Plan Assessment/Plan COPD, congestive heart failure, atrial fibrillation sinus tachy agitation right lung collapse? anemia pleural effusion respirator failure tachy acute on chronic renal failure pleural effusion tele sinus vent support abx pulm rxn beta evelyn iv or via ngt prn amiod to 200 qd hemodynamically stable at the moment bp is high cr improved s/p trach and peg s/p thoracentesis duplex neg now off ivf on lasix dialy c diff neg possible gutierrez tx abg noted Subjective ROS Limited/Unobtainable: Yes Subjective in sdu on vent in isolation Objective Last 24 Hour Vital Signs Date Time Temp Pulse Resp B/P (MAP) Pulse Ox O2 Delivery O2 Flow Rate FiO2 07/11/18 19:00 93 21 35 07/11/18 16:51 96 20 35 07/11/18 16:00 99.6 84 16 140/78 (98) 96 07/11/18 16:00 Mechanical Ventilator 07/11/18 15:30 74 07/11/18 15:09 72 16 35 07/11/18 14:00 35 07/11/18 13:59 35 07/11/18 12:57 74 16 35 07/11/18 12:15 35 07/11/18 12:02 77 07/11/18 12:00 Mechanical Ventilator 07/11/18 12:00 97.7 84 15 138/70 (92) 95 07/11/18 12:00 35 07/11/18 10:45 35 07/11/18 10:35 88 16 35 07/11/18 09:53 35 07/11/18 09:50 88 22 35 07/11/18 09:29 99 07/11/18 09:23 85 16 35 07/11/18 09:07 83 132/62 07/11/18 08:00 99.2 83 16 132/62 (85) 98 07/11/18 08:00 78 07/11/18 08:00 Mechanical Ventilator 07/11/18 08:00 35 07/11/18 07:14 83 16 35 07/11/18 05:30 98 17 35 07/11/18 04:00 Mechanical Ventilator 07/11/18 04:00 90 07/11/18 04:00 98.4 87 19 145/63 (90) 99 07/11/18 04:00 35 3/11/19 03:30 88 17 35 07/11/18 02:00 94 07/11/18 01:30 87 18 35 07/11/18 00:00 Mechanical Ventilator 07/11/18 00:00 98.6 92 20 128/78 (95) 97 07/11/18 00:00 35 07/10/18 23:30 89 16 35 07/10/18 21:30 90 18 35 07/10/18 20:00 35 07/10/18 20:00 98.2 93 18 150/72 (98) 98 07/10/18 20:00 Mechanical Ventilator 07/10/18 20:00 91 07/10/18 19:30 91 19 35 General Appearance: no apparent distress, alert, on vent, patient on isolation Intake and Output 07/10/18 07/11/18 19:00 07:00 Intake Total 200 ml 650 ml Output Total 1250 ml 800 ml Balance -1050 ml -150 ml Free Water 35 ml Tube Feeding 165 ml 550 ml Other 100 ml Output Urine Total 1250 ml 800 ml # Bowel Movements 4 Laboratory Tests Test 07/11/18 03:25 07/11/18 13:13 White Blood Count 9.4 K/UL (4.8-10.8) Red Blood Count 3.81 M/UL (4.20-5.40) L Hemoglobin 8.7 G/DL (12.0-16.0) L Hematocrit 28.1 % (37.0-47.0) L Mean Corpuscular Volume 74 FL (80-99) L Mean Corpuscular Hemoglobin 22.8 PG (27.0-31.0) L Mean Corpuscular Hemoglobin Concent 30.9 G/DL (32.0-36.0) L Red Cell Distribution Width 17.4 % (11.6-14.8) H Platelet Count 313 K/UL (150-450) Mean Platelet Volume 6.9 FL (6.5-10.1) Neutrophils (%) (Auto) 57.3 % (45.0-75.0) Lymphocytes (%) (Auto) 27.3 % (20.0-45.0) Monocytes (%) (Auto) 10.2 % (1.0-10.0) H Eosinophils (%) (Auto) 4.2 % (0.0-3.0) H Basophils (%) (Auto) 1.0 % (0.0-2.0) Sodium Level 141 MMOL/L (136-145) Potassium Level 3.9 MMOL/L (3.5-5.1) Chloride Level 99 MMOL/L (98-107) Carbon Dioxide Level 37 MMOL/L (21-32) H Anion Gap 5 mmol/L (5-15) Blood Urea Nitrogen 65 mg/dL (7-18) H Creatinine 1.4 MG/DL (0.55-1.30) H Estimat Glomerular Filtration Rate mL/min (>60) Glucose Level 129 MG/DL (74-106) H Uric Acid 5.1 MG/DL (2.6-7.2) Calcium Level 9.9 MG/DL (8.5-10.1) Phosphorus Level 5.3 MG/DL (2.5-4.9) H Magnesium Level 1.6 MG/DL (1.8-2.4) L Iron Level 23 ug/dL (50-175) L Total Iron Binding Capacity 139 ug/dL (250-450) L Percent Iron Saturation 17 % (15-50) Unsaturated Iron Binding 116 ug/dL (112-346) Total Bilirubin 0.2 MG/DL (0.2-1.0) Aspartate Amino Transf (AST/SGOT) 16 U/L (15-37) Alanine Aminotransferase (ALT/SGPT) 20 U/L (12-78) Alkaline Phosphatase 81 U/L (46-116) Pro-B-Type Natriuretic Peptide 587 pg/mL (0-125) H Total Protein 7.4 G/DL (6.4-8.2) Albumin 2.6 G/DL (3.4-5.0) L Globulin 4.8 g/dL Albumin/Globulin Ratio 0.5 (1.0-2.7) L Arterial Blood pH 7.462 (7.350-7.450) Arterial Blood Partial Pressure CO2 58.1 mmHg (35.0-45.0) *H Arterial Blood Partial Pressure O2 49.0 mmHg (75.0-100.0) Arterial Blood HCO3 40.6 mmol/L (22.0-26.0) *H Arterial Blood Oxygen Saturation 85.9 % (95-100) *L Arterial Blood Base Excess 14.8 (-2-2) *H David Test Positive Microbiology Date/Time Source Procedure Growth Status 3/9/19 09:30 Stool Clostridium difficile Toxin Assay - Final Complete Geoffrey Sandhu MD Jul 11, 2018 19:21
--- NOTE | 2018-07-11 19:30 | NUR ---
HAND-OFF: Report given to Ayla Angelo RN.
--- NOTE | 2018-07-11 19:31 | NUR ---
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
[2018-07-11 19:35] VITALS: BP 115/64
--- NOTE | 2018-07-11 19:45 | NUR ---
NURSE NOTES: Report given to [facility] ambulance,patient stable,no s/s of pain,no respiratory distress noted,family at bedside,belongings list signed with both nurses.
[2018-07-11] MEDS ORDERED: Tubing IV Secondary IV ONE (19:59)
[2018-07-11] MEDS ORDERED: NS 275ml ONE (19:59)
--- NOTE | 2018-07-11 21:08 | General Progress Note ---
Assessment/Plan Assessment/Plan Assessment - Resp failure, s/p trach - s/p PEG - C DIff diarrhea - failed vanco - COPD - CHF - PNA - Anemia - not candidate for colonoscopy at this time given poor health - Micocytosis is chronic, likely Thalassemia - may also have a component of Iron deficiency at this time Recommendations - Vent care - Elevated HOB - Monitor residuals - Pulmonary toilet - Dificid - Re check Iron panel - Iron IV trial - follow CBC Subjective Allergies: Coded Allergies: Mushroom (Verified Allergy, Severe, 05/28/18) MORPHINE (Unverified Allergy, Intermediate, Itching, 01/04/15) PENICILLINS (Unverified Allergy, Intermediate, Hives, 06/25/18) Tolerates cephalosporins and carbapenems CELECOXIB (Verified Allergy, Mild, 01/15/09) Subjective Seen in [facility] tolerating TF on Dificid for d/c today Objective Last 24 Hour Vital Signs Date Time Temp Pulse Resp B/P (MAP) Pulse Ox O2 Delivery O2 Flow Rate FiO2 07/11/18 19:35 98.4 84 16 115/64 (81) 98 07/11/18 19:35 35 07/11/18 19:35 Mechanical Ventilator 07/11/18 19:29 86 07/11/18 19:00 93 21 35 07/11/18 16:51 96 20 35 07/11/18 16:00 99.6 84 16 140/78 (98) 96 07/11/18 16:00 Mechanical Ventilator 07/11/18 15:30 74 07/11/18 15:09 72 16 35 07/11/18 14:00 35 07/11/18 13:59 35 07/11/18 12:57 74 16 35 07/11/18 12:15 35 07/11/18 12:02 77 07/11/18 12:00 Mechanical Ventilator 07/11/18 12:00 97.7 84 15 138/70 (92) 95 07/11/18 12:00 35 07/11/18 10:45 35 07/11/18 10:35 88 16 35 07/11/18 09:53 35 07/11/18 09:50 88 22 35 07/11/18 09:29 99 07/11/18 09:23 85 16 35 07/11/18 09:07 83 132/62 07/11/18 08:00 99.2 83 16 132/62 (85) 98 07/11/18 08:00 78 07/11/18 08:00 Mechanical Ventilator 07/11/18 08:00 35 07/11/18 07:14 83 16 35 07/11/18 05:30 98 17 35 07/11/18 04:00 Mechanical Ventilator 07/11/18 04:00 90 07/11/18 04:00 98.4 87 19 145/63 (90) 99 07/11/18 04:00 35 07/11/18 03:30 88 17 35 07/11/18 02:00 94 07/11/18 01:30 87 18 35 07/11/18 00:00 Mechanical Ventilator 07/11/18 00:00 98.6 92 20 128/78 (95) 97 07/11/18 00:00 35 07/10/18 23:30 89 16 35 07/10/18 21:30 90 18 35 Intake and Output 07/10/18 07/11/18 19:00 07:00 Intake Total 200 ml 650 ml Output Total 1250 ml 800 ml Balance -1050 ml -150 ml Free Water 35 ml Tube Feeding 165 ml 550 ml Other 100 ml Output Urine Total 1250 ml 800 ml # Bowel Movements 4 Laboratory Tests 07/11/18 03:25: White Blood Count 9.4, Red Blood Count 3.81L, Hemoglobin 8.7L, Hematocrit 28.1L , Mean Corpuscular Volume 74L, Mean Corpuscular Hemoglobin 22.8L, Mean Corpuscular Hemoglobin Concent 30.9L, Red Cell Distribution Width 17.4H, Platelet Count 313, Mean Platelet Volume 6.9, Neutrophils (%) (Auto) 57.3, Lymphocytes (%) (Auto) 27.3, Monocytes (%) (Auto) 10.2H, Eosinophils (%) (Auto) 4.2H, Basophils (%) (Auto) 1.0, Sodium Level 141, Potassium Level 3.9, Chloride Level 99, Carbon Dioxide Level 37H, Anion Gap 5, Blood Urea Nitrogen 65H, Creatinine 1.4H, Estimat Glomerular Filtration Rate , Glucose Level 129H, Uric Acid 5.1, Calcium Level 9.9, Phosphorus Level 5.3H, Magnesium Level 1.6L, Iron Level 23L, Total Iron Binding Capacity 139L, Percent Iron Saturation 17, Unsaturated Iron Binding 116, Total Bilirubin 0.2, Aspartate Amino Transf (AST/ SGOT) 16, Alanine Aminotransferase (ALT/SGPT) 20, Alkaline Phosphatase 81, Pro-B -Type Natriuretic Peptide 587H, Total Protein 7.4, Albumin 2.6L, Globulin 4.8, Albumin/Globulin Ratio 0.5L 07/11/18 13:13: Arterial Blood pH 7.462H, Arterial Blood Partial Pressure CO2 58.1*H, Arterial Blood Partial Pressure O2 49.0*L, Arterial Blood HCO3 40.6*H, Arterial Blood Oxygen Saturation 85.9*L, Arterial Blood Base Excess 14.8*H, David Test Positive Height (Feet): 5 Height (Inches): 4.00 Weight (Pounds): 120 Objective Elderly WW NCAT, (+) trach Supple CTA RRR Soft, NT, ND, (+) GT No edema restrained Panchito Rahman MD Jul 11, 2018 21:08
--- NOTE | 2018-07-13 11:06 | Discharge Summary ---
Nanette Kumar WARRANT CLERK 07/13/18 1106: Discharge Summary Discharge Summary _ DATE OF ADMISSION: 05/28/2018 DATE OF DISCHARGE: 07/11/2018 DISCHARGED BY: Dr Valderrama REASON FOR ADMISSION: 87 years old female with past medical history of COPD, coronary artery disease, hypertension, paroxysmal atrial fibrillation, arthritis, early dementia, resident of snf facility, was transferred to the emergency department via ballet dancer for evaluation of increased dyspnea, fever and chills , and found to have right lower lobe consolidation and COPD exacerbation. Patient also noted to be hypoxemic and was placed on the BiPAP. Patient was altered. Chest x-ray demonstrated right lower lobe atelectasis versus consolidation. Small right pleural effusion with adjacent atelectasis or consolidation. right lower lobe consolidation. Patient had leukocytosis WBC 14.8, hemoglobin 11.3, hematocrit 27.7. BUN 34 creatinine 1.4. Troponin negative. Albumin 3.2. ABG on BiPAP 16/8 with FiO2 100% revealed pH 7.31, PCO2 67.9, PO2 49.7 ,O2 sat -85.7 Patient pancultured, started on broad-spectrum antibiotic , continued with BiPAP and transferred to direct observational unit for further management . CONSULTANTS: ophthalmic dispenser Dr. Sandhu pulmonary , Dr. Land ID specialist Dr. Salgado GI specialist dr. Rahman breakfast attendant Dr. Jimenez general surgery Dr. Garcia psychiatrist [place] [employer] [facility]RSE: Patient admitted to [facility]. Patient started on broad-spectrum antibiotic. Patient initially was continue with the BiPAP. Settings titrated based on ABG . Pulmonary toilet provided. Patient started on gentle IV hydration. Renal parameters and electrolytes were closely monitored, electrolytes corrected as needed. Patient initially was kept n.p.o. DVT prophylaxis with heparin and sequential compression device provided. Oil Furnace Installer closely followed. Follow up chest x-ray demonstrated near complete opacification of the right hemithorax. Pulmonary toilet with the chest physical therapy along with nebulizing treatment with bronchodilator provided. Conservative measures with elevation of right side of the chest and chest physiotherapy were implemented to promote drainage. Echocardiogram revealed preserved ejection fraction of 60%. No evidence of wall motion abnormality. Mild left ventricular hypertrophy. Right ventricular systolic pressure of 44 , consistent with mild pulmonary hypertension. Chest X-ray on 06/02 revealed extensive right hemithorax opacification. Patient was orally intubated by emergency room physician. Ventilator support and pulmonary toilet provided. Patient was followed with ABG and chest x-ray. Chest ultrasound demonstrated small right pleural effusion. Per radiologist , there was not enough fluid to warrant the procedure for therapeutic purposes for drainage of fluid, since amount was small. Patient subsequently was extubated but required reintubation on 06/16. Due to prolonged ventilatory support, respiratory insufficiency and failure to wean, patient undergone tracheostomy placement on 06/23. Tracheostomy care provided , ventilatory settings were optimized based on ABG. Meticulous pulmonary toilet was provided. Thoracentesis was done 06/28 and yielded 600 mL of pleural fluid. Pleural fluid analysis was unremarkable. Cytology of pleural fluid revealed no malignancy. Follow-up sonography demonstrated complete resolution of pleural effusion. Venous duplex bilateral lower lower extremity was negative for acute DVT. Surgeon closely followed. Tracheostomy was functioning well. Oil Furnace Installer recommended SIMV trial for weaning with pressure support of 12 to start at [facility]. Infectious disease doctor followed. Patient with evidence of sepsis and pneumonia, status post treatment. Blood culture initially revealed Staph hominis and diphtheroids. Rapid influenza screen test was negative. Sputum culture revealed MRSA. Repeated blood culture on 05/30 and 06/05 were negative. Repeated sputum culture on 06/15 revealed E. coli ESBL and MRSA. Urine culture was negative. Urine Legionella antigen was negative Repeated sputum culture 06/17 still showed ESBL E. coli and MRSA. Initial positive blood cultures were likely contaminant as per infectious disease . Pleural fluid re culture revealed no growth. Patient status post treatment for pneumonia. Patient developed severe diarrhea. Stool for C. difficile 06/17 was positive.. Patient was on oral vancomycin treatment of C. difficile . Diarrhea continued. Repeated stool for C. difficile on 07/09 was negative. Vancomycin was stopped , and patient started on fidaxomicin for total of 10 days . Fever and leukocytosis resolved . Animal Caregiver followed. Renal parameters and electrolytes were closely monitored. Electrolytes corrected as needed . Ling patient likely had acute on chronic renal failure. Animal Caregiver recommended avoidance of nephrotoxics in future. GI specialist closely followed. Patient initially had NG tube placed for nutritional support. Strict aspiration precautions were maintained. Nutritional recommendation implemented in plan of care. Patient had evidence of anemia. Hemoglobin and hematocrit were closely monitored with goal to keep hemoglobin above 7. GI prophylaxis provided. Bowel regimen initially instituted . Patient required transfusion of 2 units of packed red blood cells while in the hospital. Anemia workup was consistent with anemia of chronic disease. Stool for occult blood was negative. Patient undergone upper endoscopy and PEG placement on 07/22. G tube site care provided. Feeding started as per in class special education teacher recommendations with strict aspiration/ reflux precautions. Patient was able to tolerate tube feeding. Per GI specialist, patient was not a candidate for colonoscopy, given poor health. Noted chronic microcytosis, likely thalassemia as per GI specialist. Patient also had a component of iron deficiency at this time and received IV iron trial. Prior to discharge hemoglobin 8.7 , hematocrit 28.1. Pulmonology Technician followed. All troponin were negative. Initially Lasix was held since patient was dry. Subsequently patient was restarted on maintenance dose with close monitoring of volumes and cardiorenal parameters/ pro BNP from 2558 down to 587. Patient was on amiodarone maintenance dose and beta evelyn as needed , heart rate controlled. Patient maintained sinus rhythm on telemetry. Antihypertensive medication regimen continued. Per ophthalmic dispenser patient was hemodynamically stable and ready for transfer to [facility]. Psychiatrist closely followed and diagnosed patient with encephalopathy due to toxin and dementia. Psychiatric medication regimen was optimized. Psychiatrist recommended palliative care. Patient clinically stabilized and was ready for transfer to [facility]. FINAL DIAGNOSES: Acute on chronic hypercapnic respiratory failure ( status post intubation 06/02 , extubation 06/10, reintubation 06/16), failure to wean Status post tracheostomy 06/23 Sepsis Right lung collapse, mucous plug -resolved Pulmonary edema COPD with exacerbation Aspiration pneumonia MRSA pneumonia with recurrent fever and increased leukocytosis -s/p treatment ESBL E. coli pneumonia-s/p treatment C. difficile colitis, failed oral Vanco Pleural effusion , status post right thoracentesis - 600 cc Acute encephalopathy of toxic origin Acute on chronic renal failure/acute kidney injury Coronary artery disease Paroxysmal atrial fibrillation Congestive heart failure Anemia of chronic disease Hyperlipidemia Dysphagia s/p upper endoscopy and [facility] 06/24 Dementia DISCHARGE MEDICATIONS: List of medication was sent to facility. DISCHARGE INSTRUCTIONS: Patient was discharged to [facility] for further management. Follow-up with medical doctor and mobile crane operator at acceptable facility Cruz Valderrama MD 07/14/[id number]: Discharge Summary Discharge Summary _ The patient was seen and examined at bedside and all new and available data was reviewed in the patients chart. I agree with the above findings, impression and plan. (Patient seen earlier today. Signature stamp does not reflect patient encounter time.). -MD José Alberto Janet NP Jul 13, 2018 11:06 Cruz Valderrama MD Jul 14, 2018 20:38
== END 2018-07-11 20:00 | DRG 4 ==
LOC: EDBD 00:51 → EDBEDREQ 00:59 → EMR 01:02 → 2W 01:19 → EDBEDREQ 02:07 → ICU 06-02 12:32 → 2W 06-12 17:35 → ICU 06-16 15:19 → 2W 06-26 18:57
PROC: B548ZZA Ultrasonography of Superior Vena Cava, Guidance (ICD-10-PCS; principal; 2018-06-02)
PROC: 0BH17EZ Insertion of Endotracheal Airway into Trachea, Via Natural or Artificial Opening (ICD-10-PCS; principal; 2018-06-02)
PROC: 5A1955Z Respiratory Ventilation, Greater than 96 Consecutive Hours (ICD-10-PCS; principal; 2018-06-02)
PROC: 02HV33Z Insertion of Infusion Device into Superior Vena Cava, Percutaneous Approach (ICD-10-PCS; principal; 2018-06-02)
PROC: 0BH17EZ Insertion of Endotracheal Airway into Trachea, Via Natural or Artificial Opening (ICD-10-PCS; 2018-06-16)
PROC: 5A1955Z Respiratory Ventilation, Greater than 96 Consecutive Hours (ICD-10-PCS; 2018-06-16)
PROC: 0B110F4 Bypass Trachea to Cutaneous with Tracheostomy Device, Open Approach (ICD-10-PCS; 2018-06-23)
PROC: 0DH63UZ Insertion of Feeding Device into Stomach, Percutaneous Approach (ICD-10-PCS; 2018-06-24)
PROC: 0DJ08ZZ Inspection of Upper Intestinal Tract, Via Natural or Artificial Opening Endoscopic (ICD-10-PCS; 2018-06-24)
PROC: 0W993ZZ Drainage of Right Pleural Cavity, Percutaneous Approach (ICD-10-PCS; 2018-06-28)
DX: A41.9 Sepsis, unspecified organism (principal); J69.0 Pneumonitis due to inhalation of food and vomit; G92 Toxic encephalopathy; J15.5 Pneumonia due to Escherichia coli; J15.212 Pneumonia due to Methicillin resistant Staphylococcus aureus; J96.22 Acute and chronic respiratory failure with hypercapnia; J96.21 Acute and chronic respiratory failure with hypoxia; N17.0 Acute kidney failure with tubular necrosis; E43 Unspecified severe protein-calorie malnutrition; J44.0 Chronic obstructive pulmonary disease with (acute) lower respiratory infection; J44.1 Chronic obstructive pulmonary disease with (acute) exacerbation; I13.0 Hypertensive heart and chronic kidney disease with heart failure and stage 1 through stage 4 chronic kidney disease, or unspecified chronic kidney disease; J90 Pleural effusion, not elsewhere classified; J98.11 Atelectasis; Z99.11 Dependence on respirator [ventilator] status; A04.72 Enterocolitis due to Clostridium difficile, not specified as recurrent; E87.0 Hyperosmolality and hypernatremia; I25.10 Atherosclerotic heart disease of native coronary artery without angina pectoris; I50.9 Heart failure, unspecified; N18.9 Chronic kidney disease, unspecified; F03.90 Unspecified dementia, unspecified severity, without behavioral disturbance, psychotic disturbance, mood disturbance, and anxiety; I48.0 Paroxysmal atrial fibrillation; K29.70 Gastritis, unspecified, without bleeding; R13.10 Dysphagia, unspecified; R62.7 Adult failure to thrive; Z68.20 Body mass index [BMI] 20.0-20.9, adult; D64.9 Anemia, unspecified; D56.9 Thalassemia, unspecified; E87.6 Hypokalemia; E87.5 Hyperkalemia
CPT/HCPCS: 36415; 36569; 36600; 71045; 74018; 76604; 76937; 76942; 80048; 80053; 80061; 80069; 80076; 80202; 81003; 82140; 82164; 82270; 82550; 82553; 82607; 82728; 82746; 82803; 82962; 82977; 83036; 83540; 83550; 83605; 83615; 83735; 83880; 83986; 84100; 84132; 84155; 84443; 84484; 84550; 85007; 85025; 85610; 85730; 86140; 86710; 86850; 86900; 86901; 86920; 87040; 87070; 87081; 87086; 87181; 87205; 87324; 88104; 93306; 93970; 94002; 94003; 94150; 94640; 94660; 94664; 96365; 96366; 96368; 96375; 99291; J7620; J8499; S0077